=== PATIENT | male | born 1965 | race Caucasian/White ===

== ENCOUNTER 2017-09-27 21:58 | Emergency (ER) | payer MEDICARE, MEDICAID, SELFPAY ==
[2017-09-27] VITALS (9 sets, daily range): BP systolic 131–134; BP diastolic 45–57; PULSE 72–79; RESP 16; TEMP 37; O2SAT 95–98
--- NOTE | 2017-09-27 22:14 | DI.RPTCT_ITS ---
SYMPTOM/DIAGNOSIS: LOWER ABDOMINAL PAIN CT ABDOMEN AND PELVIS: Comparison is made with 14 Feb 2017. Images were performed from the lung bases through the ischial tuberosities without if or oral contrast. There are diverticula in the lower descending and sigmoid colon. There is inflammation in the surrounding fat as well as some wall thickening consistent with diverticulitis. There is no evidence of abscess, free fluid or free air. There is no bowel dilatation. The appendix appears normal. A diverticulum is noted at the descending duodenum. There is a nodule in the medial right lung base which has increased in size when compared with previous examinations, now measuring 11 x 15 mm compared to 8 mm in 2015. No effusions are seen. No additional pulmonary nodules are identified. The heart size appears normal. The liver shows fatty infiltration. The gallbladder, pancreas, spleen and adrenals are unremarkable. There are a few small renal cysts. No stones or hydronephrosis is present. The aorta shows mild calcification and is normal in diameter. The bladder and prostate are unremarkable. IMPRESSION: Uncomplicated sigmoid diverticulitis 2. Increase in size of spiculated appearing nodule in the medial right lung base. PET CT or biopsy is recommended for further evaluation.
--- NOTE | 2017-09-27 22:14 | ED.GENADUL ---
Disposition Clinical Impression: Lung nodule, Diverticulitis Disposition: HOME Condition: Stable Instructions: Pulmonary Nodules (ED), Diverticulitis (ED) Additional Instructions: Take 1000mg tylenol every 6 hours for pain as needed. If you need additional pain relief take 1 oxycodone. Do not drink alcohol or drive if you take this medicine If you have severe worsening of pain or persistent vomit return to the emergency department you should follow up with your primary care provider this week for the diverticulitis and also the lung nodule Prescriptions: Ciprofloxacin [Cipro] 500 mg PO BID #14 tab MetroNIDAZOLE [Flagyl] 500 mg PO BID #14 tab Medical Decision Making - Lab Data Results reviewed for labs ordered during visit: Yes - Radiology Data Radiology results: report reviewed, image reviewed - Medical Decision Making pt here with lower abdominal cramping since and pain is worse left greater than right. Will eval for pancreatitis and diverticulitis with lab work and imaging. Has no testicle pain or swelling so doubt testicular torsion labs show wbc over 11, otherwise unremarkable. CT shows uncomplicated diverticulitis. Will treat with abx. CT also showed enlarged lung nodule, I advised him of this and that he needs to f/u with his pcp within a week for this and diverticulitis - Differential Diagnosis diveticulitis, colitis, constipation History of Present Illness - General Chief complaint: Abd Prob Stated complaint: ABD PROBLEM Time Seen by Provider: 09/27/17 22:02 Source: patient Mode of arrival: ambulatory Limitations: no limitations - History of Present Illness Initial comments: 52 yo male comes in with lower abdominal cramping intermittently since and constipation. He denies fevers, vomit, upper abdominal pain or chest pain. Denies pain like this in the past and has never had abdominal surgeries per the pt. He has mild lower abdominal pain left greater than right on exam, denies any pain when not being palpated. MD Complaint: abdominal cramping Onset/Timin -: days(s) Location: abdomen Radiation: non-radiation Severity scale (1-10): 6 Quality: other (cramping) Consistency: intermittent Improves with: none Worsens with: none Associated Symptoms: other (constipation) - Related Data Albuterol Sulfate [Ventolin Hfa] 1 - 2 puff IH Q4H PRN #1 inhaler 12/24/15 PARoxetine [Paxil] 20 mg PO DAILY #90 tab-cap 08/11/16 Omeprazole 40 mg PO DAILY #90 cap 10/27/16 Atorvastatin Calcium 20 mg PO DAILY #30 tab-cap 12/29/16 Cholecalciferol (Vitamin D3) [Vitamin D3] 2,000 unit PO DAILY #90 tab-cap 02/17/17 Acetaminophen [Tylenol] 650 mg PO Q6H PRN tab 03/20/17 Amlodipine Besylate 2.5 mg PO DAILY tab-cap 03/24/17 Lisinopril 30 mg PO DAILY tab-cap 03/24/17 MetFORMIN CR [Glucophage Xr] 1,000 mg PO DAILY #180 tab-cap 04/02/17 Glipizide [Glipizide Xl] 2.5 mg PO DAILY #90 tab 04/16/17 Docusate Sodium [Colace] 100 mg PO DAILY #90 cap 07/01/17 Aspirin [Aspirin EC] 81 mg PO DAILY 90 Days #90 tabec 08/13/17 Bisacodyl [Dulcolax] 10 mg RC AC #4 supp.rect 09/23/17 Ciprofloxacin [Cipro] 500 mg PO BID #14 tab 09/27/17 MetroNIDAZOLE [Flagyl] 500 mg PO BID #14 tab 09/27/17 Allergies Allergy/AdvReac Type Severity Reaction Status Date / Time naproxen Allergy Intermediate Itchy Welts Unverified 09/23/17 10:16 prednisone AdvReac Upset Unverified 09/23/17 10:16 stomach, fatigue Review of Systems Constitutional: denies: chills, fever Respiratory: denies: shortness of breath Cardiovascular: denies: chest pain Gastrointestinal: abdominal pain, constipation. denies: nausea, vomiting Skin: denies: rash Neurological: denies: headache Comment: All other systems reviewed and negative Past Medical History - Past Medical History Medical history: CAD, diabetes, GERD, hypertension plantar fasciitis Surgical history: other (Cystoscopy) - Social History Alcohol use: none Drug use: none General Exam - General Limitations: no limitations General appearance: alert, in no apparent distress - Head Head exam: Present: atraumatic - Eye Eye exam: Present: normal apperance - ENT ENT exam: Present: mucous membranes moist - Neck Neck exam: Present: normal inspection - Respiratory Respiratory exam: Absent: respiratory distress - Cardiovascular Cardiovascular Exam: Present: regular rate - GI/Abdominal GI/Abdominal exam: Present: soft, tenderness. Absent: distended, guarding, rebound, rigid - Neurological Exam Neurological exam: Present: alert, oriented X3, normal gait - Psychiatric Psychiatric exam: Present: normal affect - Skin Skin exam: Present: warm
[2017-09-27 22:44] LABS: Abs Immature Grans 0.06 k/cumm (0.0-0.09); Absolute Basophil Count 0.07 k/cumm (0.0-0.2); Absolute Eosinophil Count 0.26 k/cumm (0.0-0.7); Absolute Lymphocyte Count 2.08 k/cumm (1.2-3.4); Absolute Monocyte Count 1.69 k/cumm (0.11-0.7); Absolute Neutrophil Count 6.87 k/cumm (1.2-6.7); Basophils % 0.6; Eosinophils % 2.4; HCT 41.9 % (40.0-50.0); HGB 14.5 g/dL (13.5-17.5); Immature Grans % 0.5; Lymphocytes % 18.9; Mean Corp. HGB Concentration 34.6 g/dL (32.0-36.0); Mean Corpuscular Hemoglobin 30.3 pg (27.0-33.0); Mean Corpuscular Volume 87.5 fL (80-95); Mean Platelet Volume 10.3 fL (8.0-11.0); Monocytes % 15.3; Neutrophils % 62.3; Platelet Count 223 x1000/uL (130-400); RBC 4.79 m/cumm (4.50-6.00); RBC Distribution Width 13.5 % (11.8-14.1); White Blood Cell Count 11.03 k/cumm (4.4-10.8)
[2017-09-27 22:57] LABS: ALT 24 U/L (12-78); AST 14 U/L (15-37); Albumin 3.6 g/dL (3.4-5.0); Alkaline Phosphatase 100 U/L (46-116); Anion Gap 8.6 mmol/L (3-11); BUN 15 mg/dL (7-18); Bilirubin, Total 0.3 mg/dL (0.2-1.0); CO2 25.4 mmol/L (21.0-32.0); CREATININE 1.47 mg/dL (0.70-1.30); Calcium 8.6 mg/dL (8.5-10.1); Chloride 104 mmol/L (98-107); Estimated GFR 49.92 (mL/min/1.73m2); Glucose 73 mg/dL (70-100); Lipase 161 U/L (73-393); Magnesium 2.1 mg/dL (1.8-2.4); Potassium 4.2 mmol/L (3.5-5.1); Sodium 138 mmol/L (136-145); Total Protein 7.4 g/dL (6.4-8.2)
[2017-09-27 23:06] LABS: Diff Comment Diff Reviewed
--- NOTE | 2017-09-27 23:22 | DI.VRAD_ITS ---
EXAM: CT Abdomen and Pelvis Without Intravenous Contrast CLINICAL HISTORY: 52 years old, male; Pain; Other: Lower abdominal pain. TECHNIQUE: Axial computed tomography images of the abdomen and pelvis without intravenous contrast. All CT scans at this facility use at least one of these dose optimization techniques: automated exposure control; mA and/or kV adjustment per patient size (includes targeted exams where dose is matched to clinical indication); or iterative reconstruction. Coronal and sagittal reformatted images were created and reviewed. COMPARISON: CT - ABD PELVIS WITH CONTRAST 01/25/2017 and 05/29/2014. FINDINGS: Lung bases: 15 mm right lower lobe pulmonary nodule was 8 mm in 2014. ABDOMEN: Liver: Unremarkable. Gallbladder and bile ducts: Unremarkable. No calcified stones. No ductal dilation. Pancreas: Unremarkable. No ductal dilation. Spleen: Unremarkable. No splenomegaly. Adrenals: Unremarkable. No mass. Kidneys and ureters: Unremarkable. No obstructing stones. No hydronephrosis. Stomach and bowel: Inflammatory changes around a sigmoid colon diverticulum. No obstruction. PELVIS: Appendix: No findings to suggest acute appendicitis. Bladder: Unremarkable. No stones. Reproductive: Unremarkable as visualized. ABDOMEN and PELVIS: Intraperitoneal space: Unremarkable. No free air. No significant fluid collection. Bones/joints: No acute fracture. No dislocation. Soft tissues: Unremarkable. Vasculature: Unremarkable. No abdominal aortic aneurysm. Lymph nodes: Unremarkable. No enlarged lymph nodes. IMPRESSION: 1. Uncomplicated sigmoid colon diverticulitis 2. 15 mm right lower lobe pulmonary nodule. It has increased in size. Tissue diagnosis is suggested. Dictated and Authenticated by: Reno Hernandez MD. Ordering:TATO DE SOUZA MD
[2017-09-27] MEDS: Ciprofloxacin 500 MG TAB PO (23:32)
[2017-09-27] MEDS: metroNIDAZOLE 500 MG TAB PO (23:32)
[2017-09-27] MEDS: oxyCODONE 5 MG TAB PO (23:41)
--- NOTE | 2017-09-28 08:50 | PDOC.ERCMPRO ---
Care Management Progress Note 09/28-Dr. Crawford requested assistance with a PCP f/u within one week for diverticuli and R Lower lobe nodule increased in size. Referral faxed to [facility] am. Dr. Marroquin PCP.
== END 2017-09-27 23:48 | disposition home or self-care (01) ==
PROVIDERS: Emergency Provider Emergency Medicine; PCP Family Medicine
DX: K57.32 Diverticulitis of large intestine without perforation or abscess without bleeding (principal); R91.1 Solitary pulmonary nodule; E11.9 Type 2 diabetes mellitus without complications; Z79.84 Long term (current) use of oral hypoglycemic drugs; I10 Essential (primary) hypertension
CPT/HCPCS: 74176; 99284 ×2; 36415; 80053; 83690; 83735; 85025

== ENCOUNTER 2017-11-06 00:18 | Outpatient (CLI) | payer MEDICARE, MEDICAID, SELFPAY ==
[2017-11-06 08:51] LABS: CREATININE 1.34 mg/dL (0.70-1.30); Estimated GFR 55.55 (mL/min/1.73m2)
[2017-11-06] MEDS: Omnipaque 350 MG/ML 100 ML BTL IV (09:11)
--- NOTE | 2017-11-06 09:20 | DI.CT_ITS ---
SYMPTOM/DIAGNOSIS: RT LOWER LOBE NODULE ON 09/27/17 CT, ? ADENOPATHY, R91.[address]: Comparison examinations dating back to 2014 were reviewed. The most recent CT scan of the abdomen and pelvis is 09/27/17. There is mild atherosclerosis of the thoracic aorta but no aneurysmal dilatation or dissection is present. Heart size is within normal limits. No pericardial effusion is seen. No significant thoracic adenopathy is appreciated. There are a few mediastinal lymph nodes present, the largest measures .8 cm. in maximum diameter. No pleural effusion or pneumothorax is identified. The visualized thyroid gland is unremarkable. There is mild patient motion artifact present. Mild paraseptal emphysematous changes are seen in the lungs. Linear infiltrates are seen in the right middle lobe and left lingula. These areas may represent scarring, atelectasis or pneumonia. There is an irregular nodular density in the medial aspect of the right lower lobe measuring 1.4 by 2 cm. This has shown interval increase in size dating back to 2014. The tracheobronchial tree is unremarkable. Degenerative changes are seen in the spine. The upper abdominal images show bilateral renal cysts and hepatic steatosis. Note is made also made of a small duodenal diverticulum arising from the second portion of the duodenum. IMPRESSION: Interval increase in size of soft tissue nodule in the right lung base now measuring 2 cm. in size. Further evaluation with biopsy or PET scan is recommended. Scarring, atelectasis or pneumonia involving the right middle and left lingular lobes. Hepatic steatosis.
== END 2017-11-06 00:38 ==
PROVIDERS: PCP Family Medicine; Visit Provider Student in an Organized Health Care Education/Training Program
DX: R91.1 Solitary pulmonary nodule (principal); J98.4 Other disorders of lung; K76.0 Fatty (change of) liver, not elsewhere classified; I70.0 Atherosclerosis of aorta; K57.10 Diverticulosis of small intestine without perforation or abscess without bleeding
CPT/HCPCS: 71260; 82565; J3490

== ENCOUNTER 2017-11-10 12:18 | Outpatient (CLI) | payer MEDICARE, MEDICAID, SELFPAY ==
--- NOTE | 2017-11-10 08:21 | DI.RAD_ITS ---
SYMPTOMS/DIAGNOSIS: LATERAL KNEE PAIN, PATELLOFEMORAL ARTHRALGIA OF LT KNEE LEFT KNEE: Three views. No priors. No bone or joint abnormality is identified. IMPRESSION: Negative examination.
== END 2017-11-10 12:38 ==
PROVIDERS: PCP Family Medicine; Visit Provider Family Medicine
DX: M25.562 Pain in left knee (principal); M22.2X2 Patellofemoral disorders, left knee
CPT/HCPCS: 73562

== ENCOUNTER → 2017-12-02 09:49 | Outpatient (BNVA) | payer MEDICARE, MEDICAID, SELFPAY | PROVIDERS: PCP Family Medicine; Referring Provider Family Medicine; Visit Provider Orthopaedic Surgery | DX: M25.562 Pain in left knee (principal); I10 Essential (primary) hypertension; E11.9 Type 2 diabetes mellitus without complications; Z79.84 Long term (current) use of oral hypoglycemic drugs | CPT/HCPCS: 20610; 99202; 99214; J1040 ==

== ENCOUNTER 2017-12-15 19:39 | Emergency (ER) | payer MEDICARE, MEDICAID, SELFPAY ==
[2017-12-15 19:42] VITALS: BP 127/52; PULSE 76; RESP 22; TEMP 37.2; O2SAT 98
[2017-12-15] MEDS: Normal Saline 1,000 ML 1000 ML IV (20:15)
[2017-12-15 20:17] LABS: Abs Immature Grans 0.14 k/cumm (0.0-0.09); Absolute Eosinophil Count 0.33 k/cumm (0.0-0.7); Absolute Lymphocyte Count 3.37 k/cumm (1.2-3.4); Absolute Monocyte Count 0.97 k/cumm (0.11-0.7); Absolute Neutrophil Count 5.72 k/cumm (1.2-6.7); Basophils % 0.9; Eosinophils % 3.1; HCT 42.9 % (40.0-50.0); HGB 14.8 g/dL (13.5-17.5); Immature Grans % 1.3; Lymphocytes % 31.7; Mean Corp. HGB Concentration 34.5 g/dL (32.0-36.0); Mean Corpuscular Hemoglobin 30.3 pg (27.0-33.0); Mean Corpuscular Volume 87.9 fL (80-95); Mean Platelet Volume 10.4 fL (8.0-11.0); Monocytes % 9.1; Neutrophils % 53.9; Platelet Count 239 x1000/uL (130-400); RBC 4.88 m/cumm (4.50-6.00); RBC Distribution Width 13.9 % (11.8-14.1); White Blood Cell Count 10.63 k/cumm (4.4-10.8)
--- NOTE | 2017-12-15 20:23 | W.ED.GENAD ---
Discharge Plan Disposition Patient Disposition: HOME Discharge Details Chief Complaint: Abd Prob Clinical Impression: Diverticulitis, Abdominal pain Primary Care Provider: Garth Marroquin ED Provider: Colton Farooq Home Meds and New Rx's Prescriptions: New metronidazole [Flagyl] 500 mg tablet 500 mg PO BID Qty: 19 RF: 0 levofloxacin [Levaquin] 750 mg tablet 750 mg PO DAILY Qty: 9 RF: 0 Continue acetaminophen [Tylenol Extra Strength] 500 mg tablet 500 mg PO Q4H PRNRF: 0 atorvastatin 20 mg tablet 20 mg PO DAILY RF: 0 nicotine [Nicotrol] 10 mg cartridge 1 inh IH Q1H PRNRF: 0 albuterol sulfate [Ventolin HFA] 8 GM HFA aerosol inhaler 1 - 2 puff Inhalation Q4H PRN Qty: 1 RF: 1 paroxetine HCl 20 MG tablet 20 mg PO DAILY Qty: 90 RF: 3 cholecalciferol (vitamin D3) [Vitamin D3] 2,000 UNIT tablet 2,000 unit PO DAILY Qty: 90 RF: 3 amlodipine 2.5 MG tablet 2.5 mg PO DAILY RF: 0 metformin 500 MG tablet extended release 24 hr 1,000 mg PO DAILY Qty: 180 RF: 3 glipizide 2.5 MG tablet extended release 24hr 2.5 mg PO DAILY Qty: 90 RF: 3 docusate sodium [Colace] 100 MG capsule 100 mg PO DAILY Qty: 90 RF: 3 aspirin 81 MG tablet,delayed release (DR/EC) 81 mg PO DAILY 90 Days Qty: 90 RF: 3 bisacodyl [Dulcolax (bisacodyl)] 10 MG suppository 10 mg RC AC Qty: 4 RF: 0 omeprazole 40 mg capsule,delayed release(DR/EC) 40 mg PO DAILY 90 Days Qty: 90 RF: 3 nicotine 21 mg/24 hr patch 24 hour 1 patch TD Q24H Qty: 28 RF: 0 No Action sennosides [Senokot] 8.6 mg tablet 17.2 mg PO DAILY PRN (Reason: constipation) Qty: 20 RF: 0 lisinopril 30 mg tablet 30 mg PO DAILY Qty: 90 RF: 3 Discharge Instructions Instructions: Abdominal Pain (ED) Additional Instructions: Please take antibiotic as prescribed. Please contact your primary care physician to arrange follow-up. Return to the ER for any worsening or new concerning symptoms. Referrals: Garth Marroquin DO [Primary Care Provider] - Discharge Data Discharge Date/Time-TO BE ENTERED AT DEPARTURE: 12/15/17 22:23 Medical Decision Making 52-year-old male with history of diverticulitis with multiple flares in the past, here with abdominal pain in his lower abdomen since this morning. Patient states that current symptoms are exactly the same as when he has had a flare of diverticulitis in the past. He is tender in his lower abdomen and without peritoneal findings. Afebrile and otherwise well-appearing. He is tolerating p.o. intake. I reviewed CT imaging from 09/27/2017: Uncomplicated sigmoid diverticulitis. Increase in size of spiculated appearing nodule in the medial right lung base. Of note, patient is scheduled for biopsy of this lung nodule later this week. I discussed potential treatment past with the patient including CT imaging to assess for acute surgical process including disease other than diverticulitis versus trialing p.o. antibiotics without imaging at this time. Patient would prefer to trial p.o. antibiotics. With this he understands the importance that should anything worsen or change he should return to the emergency department immediately. I also think he should have close follow-up with his primary care physician. I encouraged him to call his primary care physician tomorrow. Will start levaquin and metronidazole 10 day course and administer first dose tonight. Disposition decisions were made weighing risks and benefits of hospitalization versus outpatient treatment, the risk for further decompensation, and the patient's wishes. The patient was stable and requested discharge. Prior to discharge my usual and customary return precautions were reviewed with the patient and his . This included follow-up instructions and reason to return to the emergency department if condition worsens, does not improve as expected, or other new concerns arise. HPI General Mode of arrival: ambulatory. Date/Time Provider Initiated Documentation: 12/15/17 19:44. Limitations to Documentation: no limitations. Information obtained by: patient. HPI Narrative: 52-year-old male with history of hypertension, diabetes, chronic kidney disease, diverticulitis with multiple flares in the past, presents today with chief complaint of abdominal pain. Patient notes pain in his lower abdomen bilaterally. Pain feels exactly the same as when he has had flare of diverticulitis in the past. Most recent flare was in September of this year and treated with antibiotics. Pain is moderate. Pain feels sharp. No associated fever. He had mild nausea earlier with no vomiting. No associated diarrhea or bright red blood per rectum. Patient notes that he attempted to arrange an appointment primary care physician but they were unable to schedule him until late this week. Related Data Home Medications Medication Instructions Recorded Confirmed albuterol sulfate [Ventolin HFA] 1 - 2 puff INHALATION Q4H PRN #1 12/24/15 12/17/17 inhaler paroxetine HCl 20 mg PO DAILY #90 tab-cap 08/11/16 12/17/17 cholecalciferol (vitamin D3) 2,000 unit PO DAILY #90 tab-cap 02/17/17 12/17/17 [Vitamin D3] amlodipine 2.5 mg PO DAILY tab-cap 03/24/17 12/17/17 metformin 1,000 mg PO DAILY #180 tab-cap 04/02/17 12/17/17 glipizide 2.5 mg PO DAILY #90 tab 04/16/17 12/17/17 docusate sodium [Colace] 100 mg PO DAILY #90 cap 07/01/17 12/17/17 aspirin 81 mg PO DAILY 90 Days #90 tabec 08/13/17 12/17/17 bisacodyl [Dulcolax (bisacodyl)] 10 mg AC #4 supp.rect 09/23/17 12/17/17 omeprazole 40 mg capsule,delayed 40 mg PO DAILY 90 Days #90 cap 10/20/17 12/17/17 release acetaminophen 500 mg tablet 500 mg PO Q4H PRN 10/26/17 12/17/17 atorvastatin 20 mg tablet 20 mg PO DAILY 10/26/17 12/17/17 nicotine 10 mg inhalation cartridge 1 inh IH Q1H PRN each 11/02/17 12/17/17 nicotine 21 mg/24 hr daily 1 patch TD Q24H #28 each 11/23/17 12/17/17 transdermal patch levofloxacin [Levaquin] 750 mg PO DAILY #9 tab 12/15/17 12/17/17 metronidazole [Flagyl] 500 mg PO BID #19 tab 12/15/17 12/17/17 lisinopril 30 mg tablet 30 mg PO DAILY #90 tab-cap 11/01/18 11/01/18 sennosides 8.6 mg tablet 17.2 mg PO DAILY PRN #20 tab 12/17/17 12/17/17 Previous Rx's Medication Instructions Recorded cholecalciferol (vitamin D3) 2,000 unit PO DAILY #90 tab-cap 02/17/17 [Vitamin D3] metformin 1,000 mg PO DAILY #180 tab-cap 04/02/17 glipizide 2.5 mg PO DAILY #90 tab 04/16/17 docusate sodium [Colace] 100 mg PO DAILY #90 cap 07/01/17 aspirin 81 mg PO DAILY 90 Days #90 tabec 08/13/17 bisacodyl [Dulcolax (bisacodyl)] 10 mg RC AC #4 supp.rect 09/23/17 omeprazole 40 mg capsule,delayed 40 mg PO DAILY 90 Days #90 cap 10/20/17 release nicotine 21 mg/24 hr daily 1 patch TD Q24H #28 each 11/23/17 transdermal patch levofloxacin [Levaquin] 750 mg PO DAILY #9 tab 12/15/17 metronidazole [Flagyl] 500 mg PO BID #19 tab 12/15/17 lisinopril 30 mg tablet 30 mg PO DAILY #90 tab-cap 12/17/17 sennosides 8.6 mg tablet 17.2 mg PO DAILY PRN #20 tab 12/17/17 Allergies Allergy/AdvReac Type Severity Reaction Status Date / Time naproxen Allergy Intermediate Itchy Welts Verified 12/17/17 13:11 prednisone AdvReac Unknown Upset Verified 12/17/17 13:11 stomach, fatigue General Stated Complaint: Abd Prob JAMES: 3 Review of Systems Review of Systems All systems reviewed & are unremarkable except as noted in HPI and below Constitutional Denies fever(s) Gastrointestinal Reports as per HPI Exam Const General: cooperative and no acute distress [facility] Head: normocephalic Mouth: moist mucous membranes Eyes Conjunctivae: normal conjunctivae Sclera: normal sclerae EOM: EOM intact bilaterally Neck Neck: trachea midline and supple Resp Auscultation: clear to auscultation bilaterally, no rales, no rhonchi and no wheezes Cardio Jugular venous pressure: no JVD Rate: regular rate and not tachycardic Rhythm: regular rhythm GI Palpation: soft, not firm, no guarding, no masses, not rigid, tender in the RLQ and in the LUQ; with no rebound tenderness and No ascites Skin General skin exam: no rashes or lesions noted Neuro General: alert, awake, oriented x3 and tone normal Extrem General: no edema Psych Appearance: grossly normal Mental Status: mental status grossly normal Speech and Movement: speech and movement normal Course Vital Signs Temperature 37.2 C 12/15/17 19:42 Pulse 76 12/15/17 19:42 Respiratory Rate 22 12/15/17 19:42 Blood Pressure 127/52 L 12/15/17 19:42 Pulse Oximetry 98 12/15/17 19:42 Temperature 37.2 C 12/15/17 19:42 Temperature Source Skin 12/15/17 19:42 Pulse 76 12/15/17 19:42 Respiratory Rate 22 12/15/17 19:42 Respiratory Effort Non-Labored 12/15/17 19:44 Blood Pressure 127/52 L 12/15/17 19:42 Blood Pressure Position Sitting 12/15/17 19:42 Pulse Oximetry 98 12/15/17 19:42 Oxygen Delivery Method Room Air 12/15/17 19:42 Oxygen Flow Rate 0 12/15/17 19:42 Pain Level 6 12/15/17 19:42
[2017-12-15] MEDS: metroNIDAZOLE 500 MG TAB PO (20:27)
[2017-12-15] MEDS: LEVOFLOXACIN 500 MG, LEVOFLOXACIN 250 MG 750 MG PO (20:27)
--- NOTE | 2017-12-15 20:30 | ED.GENADUL_ITS ---
Discharge Plan Disposition Patient Disposition: HOME Discharge Details Chief Complaint: Abd Prob Clinical Impression: Diverticulitis, Abdominal pain Primary Care Provider: Garth Marroquin ED Provider: Colton Farooq Home Meds and New Rx's Prescriptions: New metronidazole [Flagyl] 500 mg tablet 500 mg PO BID Qty: 19 RF: 0 levofloxacin [Levaquin] 750 mg tablet 750 mg PO DAILY Qty: 9 RF: 0 Continue acetaminophen [Tylenol Extra Strength] 500 mg tablet 500 mg PO Q4H PRNRF: 0 atorvastatin 20 mg tablet 20 mg PO DAILY RF: 0 nicotine [Nicotrol] 10 mg cartridge 1 inh IH Q1H PRNRF: 0 albuterol sulfate [Ventolin HFA] 8 GM HFA aerosol inhaler 1 - 2 puff Inhalation Q4H PRN Qty: 1 RF: 1 paroxetine HCl 20 MG tablet 20 mg PO DAILY Qty: 90 RF: 3 cholecalciferol (vitamin D3) [Vitamin D3] 2,000 UNIT tablet 2,000 unit PO DAILY Qty: 90 RF: 3 amlodipine 2.5 MG tablet 2.5 mg PO DAILY RF: 0 metformin 500 MG tablet extended release 24 hr 1,000 mg PO DAILY Qty: 180 RF: 3 glipizide 2.5 MG tablet extended release 24hr 2.5 mg PO DAILY Qty: 90 RF: 3 docusate sodium [Colace] 100 MG capsule 100 mg PO DAILY Qty: 90 RF: 3 aspirin 81 MG tablet,delayed release (DR/EC) 81 mg PO DAILY 90 Days Qty: 90 RF: 3 bisacodyl [Dulcolax (bisacodyl)] 10 MG suppository 10 mg RC AC Qty: 4 RF: 0 omeprazole 40 mg capsule,delayed release(DR/EC) 40 mg PO DAILY 90 Days Qty: 90 RF: 3 nicotine 21 mg/24 hr patch 24 hour 1 patch TD Q24H Qty: 28 RF: 0 No Action sennosides [Senokot] 8.6 mg tablet 17.2 mg PO DAILY PRN (Reason: constipation) Qty: 20 RF: 0 lisinopril 30 mg tablet 30 mg PO DAILY Qty: 90 RF: 3 Discharge Instructions Instructions: Abdominal Pain (ED) Additional Instructions: Please take antibiotic as prescribed. Please contact your primary care physician to arrange follow-up. Return to the ER for any worsening or new concerning symptoms. Referrals: Garth Marroquin DO [Primary Care Provider] - Discharge Data Discharge Date/Time-TO BE ENTERED AT DEPARTURE: 12/15/17 22:23 Medical Decision Making 52-year-old male with history of diverticulitis with multiple flares in the past , here with abdominal pain in his lower abdomen since this morning. Patient states that current symptoms are exactly the same as when he has had a flare of diverticulitis in the past. He is tender in his lower abdomen and without peritoneal findings. Afebrile and otherwise well-appearing. He is tolerating p.o. intake. I reviewed CT imaging from 09/27/2017: Uncomplicated sigmoid diverticulitis. Increase in size of spiculated appearing nodule in the medial right lung base. Of note, patient is scheduled for biopsy of this lung nodule later this week. I discussed potential treatment past with the patient including CT imaging to assess for acute surgical process including disease other than diverticulitis versus trialing p.o. antibiotics without imaging at this time. Patient would prefer to trial p.o. antibiotics. With this he understands the importance that should anything worsen or change he should return to the emergency department immediately. I also think he should have close follow-up with his primary care physician. I encouraged him to call his primary care physician tomorrow. Will start levaquin and metronidazole 10 day course and administer first dose tonight. Disposition decisions were made weighing risks and benefits of hospitalization versus outpatient treatment, the risk for further decompensation, and the patient's wishes. The patient was stable and requested discharge. Prior to discharge my usual and customary return precautions were reviewed with the patient and his . This included follow-up instructions and reason to return to the emergency department if condition worsens, does not improve as expected, or other new concerns arise. HPI General Mode of arrival: ambulatory . Date/Time Provider Initiated Documentation: 12/15/17 19:44 . Limitations to Documentation: no limitations . Information obtained by: patient . HPI Narrative: 52-year-old male with history of hypertension, diabetes, chronic kidney disease, diverticulitis with multiple flares in the past, presents today with chief complaint of abdominal pain. Patient notes pain in his lower abdomen bilaterally. Pain feels exactly the same as when he has had flare of diverticulitis in the past. Most recent flare was in September of this year and treated with antibiotics. Pain is moderate. Pain feels sharp. No associated fever. He had mild nausea earlier with no vomiting. No associated diarrhea or bright red blood per rectum. Patient notes that he attempted to arrange an appointment primary care physician but they were unable to schedule him until late this week. Related Data Home Medications Medication Instructions Recorded Confirmed albuterol sulfate [Ventolin HFA] 1 - 2 puff INHALATION Q4H PRN #1 12/24/1512/17 inhaler paroxetine HCl 20 mg PO DAILY #90 tab-cap 08/11/16 12/17/17 cholecalciferol (vitamin D3) 2,000 unit PO DAILY #90 tab-cap 02/17/17 12/17/17 [Vitamin D3] amlodipine 2.5 mg PO DAILY tab-cap 03/24/17 12/17/17 metformin 1,000 mg PO DAILY #180 tab-cap 04/02/17 12/17/17 glipizide 2.5 mg PO DAILY #90 tab 04/16/17 12/17/17 docusate sodium [Colace] 100 mg PO DAILY #90 cap 07/01/17 12/17/17 aspirin 81 mg PO DAILY 90 Days #90 tabec 08/13/17 12/17/17 bisacodyl [Dulcolax (bisacodyl)] 10 mg AC #4 supp.rect 09/23/17 12/17/17 omeprazole 40 mg capsule,delayed 40 mg PO DAILY 90 Days #90 cap 10/20/17 release acetaminophen 500 mg tablet 500 mg PO Q4H PRN 10/26/17 12/17/17 atorvastatin 20 mg tablet 20 mg PO DAILY 10/26/17 12/17/17 nicotine 10 mg inhalation cartridge 1 inh IH Q1H PRN each 11/02/17 12/17/17 nicotine 21 mg/24 hr daily 1 patch TD Q24H #28 each 11/23/17 12/17/17 transdermal patch levofloxacin [Levaquin] 750 mg PO DAILY #9 tab 12/15/17 12/17/17 metronidazole [Flagyl] 500 mg PO BID #19 tab 12/15/17 12/17/17 lisinopril 30 mg tablet 30 mg PO DAILY #90 tab-cap 11/01/18 11/01/18 sennosides 8.6 mg tablet 17.2 mg PO DAILY PRN #20 tab 12/17/17 12/17/17 Previous Rx's Medication Instructions Recorded cholecalciferol (vitamin D3) 2,000 unit PO DAILY #90 tab-cap 02/17/17 [Vitamin D3] metformin 1,000 mg PO DAILY #180 tab-cap 04/02/17 glipizide 2.5 mg PO DAILY #90 tab 04/16/17 docusate sodium [Colace] 100 mg PO DAILY #90 cap 07/01/17 aspirin 81 mg PO DAILY 90 Days #90 tabec 08/13/17 bisacodyl [Dulcolax (bisacodyl)] 10 mg RC AC #4 supp.rect 09/23/17 omeprazole 40 mg capsule,delayed 40 mg PO DAILY 90 Days #90 cap 10/20/17 release nicotine 21 mg/24 hr daily 1 patch TD Q24H #28 each 11/23/17 transdermal patch levofloxacin [Levaquin] 750 mg PO DAILY #9 tab 12/15/17 metronidazole [Flagyl] 500 mg PO BID #19 tab 12/15/17 lisinopril 30 mg tablet 30 mg PO DAILY #90 tab-cap 12/17/17 sennosides 8.6 mg tablet 17.2 mg PO DAILY PRN #20 tab 12/17/17 Allergies Allergy/AdvReac Type Severity Reaction Status Date / Time naproxen Allergy Intermediate Itchy Welts Verified 12/17/17 13:11 prednisone AdvReac Unknown Upset Verified 12/17/17 13:11 stomach, fatigue General Stated Complaint: Abd Prob JAMES: 3 Review of Systems Review of Systems All systems reviewed & are unremarkable except as noted in HPI and below Constitutional Denies fever(s) Gastrointestinal Reports as per HPI Exam Const General: cooperative and no acute distress [facility] Head: normocephalic Mouth: moist mucous membranes Eyes Conjunctivae: normal conjunctivae Sclera: normal sclerae EOM: EOM intact bilaterally Neck Neck: trachea midline and supple Resp Auscultation: clear to auscultation bilaterally, no rales, no rhonchi and no wheezes Cardio Jugular venous pressure: no JVD Rate: regular rate and not tachycardic Rhythm: regular rhythm GI Palpation: soft, not firm, no guarding, no masses, not rigid, tender in the RLQ and in the LUQ; with no rebound tenderness and No ascites Skin General skin exam: no rashes or lesions noted Neuro General: alert, awake, oriented x3 and tone normal Extrem General: no edema Psych Appearance: grossly normal Mental Status: mental status grossly normal Speech and Movement: speech and movement normal Course Vital Signs Temperature 37.2 C 12/15/17 19:42 Pulse 76 12/15/17 19:42 Respiratory Rate 22 12/15/17 19:42 Blood Pressure 127/52 L 12/15/17 19:42 Pulse Oximetry 98 12/15/17 19:42 Temperature 37.2 C 12/15/17 19:42 Temperature Source Skin 12/15/17 19:42 Pulse 76 12/15/17 19:42 Respiratory Rate 22 12/15/17 19:42 Respiratory Effort Non-Labored 12/15/17 19:44 Blood Pressure 127/52 L 12/15/17 19:42 Blood Pressure Position Sitting 12/15/17 19:42 Pulse Oximetry 98 12/15/17 19:42 Oxygen Delivery Method Room Air 12/15/17 19:42 Oxygen Flow Rate 0 12/15/17 19:42 Pain Level 6 12/15/17 19:42
[2017-12-15 20:55] LABS: Albumin 3.6 g/dL (3.4-5.0); Alkaline Phosphatase 109 U/L (46-116); Bilirubin, Total 0.2 mg/dL (0.2-1.0); Lipase 301 U/L (73-393)
[2017-12-15 20:56] LABS: Albumin 3.6 g/dL (3.4-5.0); Alkaline Phosphatase 108 U/L (46-116); Anion Gap 11.1 mmol/L (3-11); BUN 21 mg/dL (7-18); Bilirubin, Total 0.2 mg/dL (0.2-1.0); CO2 23.9 mmol/L (21.0-32.0); CREATININE 1.34 mg/dL (0.70-1.30); Calcium 8.3 mg/dL (8.5-10.1); Chloride 101 mmol/L (98-107); Estimated GFR 55.55 (mL/min/1.73m2); Glucose 150 mg/dL (70-100); Potassium 3.9 mmol/L (3.5-5.1); Sodium 136 mmol/L (136-145); Total Protein 7.1 g/dL (6.4-8.2)
[2017-12-15 21:16] LABS: Bilirubin, Direct < 0.05 mg/dL (0.00-0.20)
[2017-12-15 21:55] LABS: ALT 35 U/L (12-78); AST 35 U/L (15-37)
[2017-12-15 22:18] VITALS: BP 108/51; PULSE 64; RESP 20; TEMP 36.7; O2SAT 98
== END 2017-12-15 22:23 | disposition home or self-care (01) ==
LOC: ER 20:34
PROVIDERS: Emergency Medicine; Emergency Provider Student in an Organized Health Care Education/Training Program; PCP Family Medicine
DX: K57.30 Diverticulosis of large intestine without perforation or abscess without bleeding (principal); R10.9 Unspecified abdominal pain
CPT/HCPCS: 80053; 80076; 83690; 96360; 99284; 85025

== ENCOUNTER 2017-12-16 01:19 | Emergency (ER) | payer MEDICARE, MEDICAID, SELFPAY ==
[2017-12-16 01:22] VITALS: BP 123/56; PULSE 62; RESP 26; TEMP 36.6; O2SAT 100
--- NOTE | 2017-12-16 01:36 | W.ED.GENAD ---
Discharge Plan Disposition Patient Disposition: HOME Discharge Details Chief Complaint: Abd Prob Clinical Impression: Enteritis, Diverticulosis Primary Care Provider: Garth Marroquin ED Provider: Colton Farooq Home Meds and New Rx's Prescriptions: Continue acetaminophen [Tylenol Extra Strength] 500 mg tablet 500 mg PO Q4H PRNRF: 0 atorvastatin 20 mg tablet 20 mg PO DAILY RF: 0 nicotine [Nicotrol] 10 mg cartridge 1 inh IH Q1H PRNRF: 0 albuterol sulfate [Ventolin HFA] 8 GM HFA aerosol inhaler 1 - 2 puff Inhalation Q4H PRN Qty: 1 RF: 1 paroxetine HCl 20 MG tablet 20 mg PO DAILY Qty: 90 RF: 3 cholecalciferol (vitamin D3) [Vitamin D3] 2,000 UNIT tablet 2,000 unit PO DAILY Qty: 90 RF: 3 amlodipine 2.5 MG tablet 2.5 mg PO DAILY RF: 0 metformin 500 MG tablet extended release 24 hr 1,000 mg PO DAILY Qty: 180 RF: 3 glipizide 2.5 MG tablet extended release 24hr 2.5 mg PO DAILY Qty: 90 RF: 3 docusate sodium [Colace] 100 MG capsule 100 mg PO DAILY Qty: 90 RF: 3 aspirin 81 MG tablet,delayed release (DR/EC) 81 mg PO DAILY 90 Days Qty: 90 RF: 3 bisacodyl [Dulcolax (bisacodyl)] 10 MG suppository 10 mg RC AC Qty: 4 RF: 0 omeprazole 40 mg capsule,delayed release(DR/EC) 40 mg PO DAILY 90 Days Qty: 90 RF: 3 nicotine 21 mg/24 hr patch 24 hour 1 patch TD Q24H Qty: 28 RF: 0 metronidazole [Flagyl] 500 mg tablet 500 mg PO BID Qty: 19 RF: 0 levofloxacin [Levaquin] 750 mg tablet 750 mg PO DAILY Qty: 9 RF: 0 No Action sennosides [Senokot] 8.6 mg tablet 17.2 mg PO DAILY PRN (Reason: constipation) Qty: 20 RF: 0 lisinopril 30 mg tablet 30 mg PO DAILY Qty: 90 RF: 3 Discharge Instructions Instructions: Diverticulosis (ED), Enteritis (ED) Additional Instructions: Maintain a clear liquid diet today. You can advance her diet to bland diet consisting of rice tonight. Advance diet slowly thereafter. Please contact your primary care physician to arrange follow-up. Return to the ER for any worsening or new concerning symptoms. Referrals: Garth Marroquin DO [Primary Care Provider] - Discharge Data Discharge Date/Time-TO BE ENTERED AT DEPARTURE: 12/16/17 04:22 Medical Decision Making 1:43 -- 52-year-old male with history of diverticulitis with multiple flares in the past, here with abdominal pain in his lower abdomen since yesterday morning. Was seen here earlier for same - diagnosed with likely acute diverticulitis and discharged on levaquin and flagyl. Returns with worsening symptoms. Plan to CT a/p to assess for acute surgical process. Will initiate IV, give IV fluids and IV analgesia. 4:00 --CT of the abdomen and pelvis interpreted by radiology: there are fluid-filled loops of small bowel with air-fluid levels. No significant bowel wall thickening or inflammatory changes. No evidence of obstruction. Considered early enteritis. Diverticulosis without definitive evidence of diverticulitis Patient reassessed and is remained stable. Pain significantly improved. Patient notes had normal BM yesterday and has been having normal flatus. He has had no vomiting. Given symptoms and history of similar with diverticulitis in past, plan to continue antibiotic coverage. Results of CT discussed with patient. Patient advised to follow-up with PCP. I encouraged him to maintain bowel rest. Patient understands to return immediately for any worsening or new concerning symptoms. HPI General Mode of arrival: ambulatory. Date/Time Provider Initiated Documentation: 12/16/17 01:35. Limitations to Documentation: no limitations. Information obtained by: patient. HPI Narrative: 52-year-old male with history of hypertension, diabetes, chronic kidney disease, diverticulitis with multiple flares in the past, returns today with chief complaint of abdominal pain. Patient was seen here in ED a few hours ago and discharged on oral antibiotics for presumed diverticulitis. Patient notes pain in his lower abdomen bilaterally. Pain feels exactly the same as when he has had flare of diverticulitis in the past. Most recent flare was in September of this year and treated with antibiotics. Pain is more severe then earlier. Pain feels sharp. No associated fever. He had mild nausea earlier with no vomiting. No associated diarrhea or bright red blood per rectum. Related Data Home Medications Medication Instructions Recorded Confirmed albuterol sulfate [Ventolin HFA] 1 - 2 puff INHALATION Q4H PRN #1 12/24/15 12/17/17 inhaler paroxetine HCl 20 mg PO DAILY #90 tab-cap 08/11/16 12/17/17 cholecalciferol (vitamin D3) 2,000 unit PO DAILY #90 tab-cap 02/17/17 12/17/17 [Vitamin D3] amlodipine 2.5 mg PO DAILY tab-cap 03/24/17 12/17/17 metformin 1,000 mg PO DAILY #180 tab-cap 04/02/17 12/17/17 glipizide 2.5 mg PO DAILY #90 tab 04/16/17 12/17/17 docusate sodium [Colace] 100 mg PO DAILY #90 cap 07/01/17 12/17/17 aspirin 81 mg PO DAILY 90 Days #90 tabec 08/13/17 12/17/17 bisacodyl [Dulcolax (bisacodyl)] 10 mg RC AC #4 supp.rect 09/23/17 12/17/17 omeprazole 40 mg capsule,delayed 40 mg PO DAILY 90 Days #90 cap 10/20/17 12/17/17 release acetaminophen 500 mg tablet 500 mg PO Q4H PRN 10/26/17 12/17/17 atorvastatin 20 mg tablet 20 mg PO DAILY 10/26/17 12/17/17 nicotine 10 mg inhalation cartridge 1 inh IH Q1H PRN each 11/02/17 12/17/17 nicotine 21 mg/24 hr daily 1 patch TD Q24H #28 each 11/23/17 12/17/17 transdermal patch levofloxacin [Levaquin] 750 mg PO DAILY #9 tab 12/15/17 12/17/17 metronidazole [Flagyl] 500 mg PO BID #19 tab 12/15/17 12/17/17 lisinopril 30 mg tablet 30 mg PO DAILY #90 tab-cap 12/17/17 12/17/17 sennosides 8.6 mg tablet 17.2 mg PO DAILY PRN #20 tab 12/17/17 12/17/17 Previous Rx's Medication Instructions Recorded cholecalciferol (vitamin D3) 2,000 unit PO DAILY #90 tab-cap 02/17/17 [Vitamin D3] metformin 1,000 mg PO DAILY #180 tab-cap 04/02/17 glipizide 2.5 mg PO DAILY #90 tab 04/16/17 docusate sodium [Colace] 100 mg PO DAILY #90 cap 07/01/17 aspirin 81 mg PO DAILY 90 Days #90 tabec 08/13/17 bisacodyl [Dulcolax (bisacodyl)] 10 mg RC AC #4 supp.rect 09/23/17 omeprazole 40 mg capsule,delayed 40 mg PO DAILY 90 Days #90 cap 10/20/17 release nicotine 21 mg/24 hr daily 1 patch TD Q24H #28 each 11/23/17 transdermal patch levofloxacin [Levaquin] 750 mg PO DAILY #9 tab 12/15/17 metronidazole [Flagyl] 500 mg PO BID #19 tab 12/15/17 lisinopril 30 mg tablet 30 mg PO DAILY #90 tab-cap 12/17/17 sennosides 8.6 mg tablet 17.2 mg PO DAILY PRN #20 tab 12/17/17 Allergies Allergy/AdvReac Type Severity Reaction Status Date / Time naproxen Allergy Intermediate Itchy Welts Verified 12/17/17 13:11 prednisone AdvReac Unknown Upset Verified 12/17/17 13:11 stomach, fatigue General Stated Complaint: Abd Prob JAMES: 3 Review of Systems Review of Systems All systems reviewed & are unremarkable except as noted in HPI and below Gastrointestinal Reports abdominal pain PFSH Family History Father Essential hypertension Neoplasm Mother Diabetes Essential hypertension Sister No problems noted. Sister No problems noted. Medical History Adult BMI > 30 Alcohol abuse GERD (gastroesophageal reflux disease) HLD (hyperlipidemia) HTN (hypertension) Microscopic hematuria ELIU (obstructive sleep apnea) Plantar fasciitis T2DM (type 2 diabetes mellitus) Tobacco use disorder Vitamin D deficiency Social History Smoking/Tobacco Use Status: Current every day tobacco type: cigarettes Surgical History Cardiac Cath (03/24/17) Colonoscopy - IV Sedation (09/26/14) Cystoscopy w/ joe retrograde pyelogram (03/01/15) Extraction of cataract (11/19/16) Extraction of cataract (12/17/16) Course Vital Signs Temperature 36.6 C 12/16/17 01:22 Pulse 62 12/16/17 01:22 Respiratory Rate 26 H 12/16/17 01:22 Blood Pressure 123/56 L 12/16/17 01:22 Pulse Oximetry 100 12/16/17 01:22 Temperature 36.6 C 12/16/17 01:22 Temperature Source Skin 12/16/17 01:22 Pulse 62 12/16/17 01:22 Respiratory Rate 26 H 12/16/17 01:22 Respiratory Effort 12/16/17 01:23 Blood Pressure 123/56 L 12/16/17 01:22 Blood Pressure Position Sitting 12/16/17 01:22 Pulse Oximetry 100 12/16/17 01:22 Oxygen Delivery Method Room Air 12/16/17 01:22 Oxygen Flow Rate 0 12/16/17 01:22 Pain Level 8 12/16/17 01:22
[2017-12-16] MEDS: Lactated Ringers 1,000 ML 150 ML IV (02:00)
[2017-12-16] MEDS: HYDROmorphone 2 MG/ML VIAL 1 MG IVP (02:08)
--- NOTE | 2017-12-16 03:05 | DI.CT_ITS ---
SYMPTOM/DIAGNOSIS: ABDOMEN AND PELVIC CT: Small regions of bibasilar atelectasis are demonstrated. No acute abnormality is seen. As visualized the cardiac structures are intact. Fatty infiltration of the liver is noted. There is no evidence of intra or extrahepatic ductal dilatation. The gallbladder is normal. No stones are seen. There is nothing to suggest pericholecystic fluid. The findings are negative for cholecystitis. The pancreas is normal. The spleen is normal. The adrenals are normal. Bilateral perinephric standing is noted. This could represent a mild inflammatory process or old inflammation or scarring. Bilateral renal cysts are identified, the largest measuring 18 mm. in the right kidney. There is an apparent 3 cm. duodenal diverticulum which contains ingested particulate matter. Moderate diverticulosis is present involving the sigmoid and descending colon. There is evidence of intestinal obstruction. Fluid filled loops of small bowel are noted with air fluid levels. The possibility of enteritis could not be excluded. The appendix is normal. The bladder is normal. The reproductive organs as visualized are unremarkable. There is no evidence of free fluid or free air in the intraperitoneal space. No acute bony abnormality is seen. The extra-abdominal soft tissues are unremarkable. The abdominal aorta and iliac vessels are tortuous and atherosclerotic changes are demonstrated. No aneurysm is seen. There are no enlarged lymph nodes. SUMMARY: Fluid filled loops of small bowel with air fluid levels are demonstrated. There is no significant bowel wall thickening or inflammatory change. There is no evidence of obstruction. The possibility of mild enteritis could not be excluded.
[2017-12-16] MEDS: Omnipaque 350 MG/ML 100 ML BTL IJ (03:19)
--- NOTE | 2017-12-16 03:53 | DI.VRAD_ITS ---
EXAM: CT Abdomen and Pelvis With Intravenous Contrast EXAM DATE/TIME: 12/16/2017 1:36 AM CLINICAL HISTORY: 52 years old, male; Pain; Abdominal pain; Localized; Left lower quadrant (llq); Patient HX: Rlq pain moving to llq. HX of diverticulitis TECHNIQUE: Axial computed tomography images of the abdomen and pelvis with intravenous contrast. All CT scans at this facility use at least one of these dose optimization techniques: automated exposure control; mA and/or kV adjustment per patient size (includes targeted exams where dose is matched to clinical indication); or iterative reconstruction. Coronal and sagittal reformatted images were created and reviewed. CONTRAST: 100 ml of Omnipaque 350 administered intravenously. COMPARISON: CT ABD PELVIS WO CONTRAST 09/27/2017 10:37 PM FINDINGS: Lower thorax: There is minimal bibasilar atelectasis. The lungs are normal. There is no evidence of pneumothorax. There are no pleural effusions present. The cardiac structures are normal. ABDOMEN: Liver: There is a diffuse decrease in hepatic parenchymal density, consistent with moderate fatty infiltration. Gallbladder and bile ducts: There is no evidence of intrahepatic or extrahepatic biliary ductal dilation. The gallbladder is normal. There is no cholelitiasis, wall thickening or pericholecystic fluid to suggest cholecystitis. Pancreas: Normal. No ductal dilation. Spleen: The spleen is normal. Adrenals: Normal. No mass. Kidneys and ureters: There is bilateral perinephric stranding. This may represent a mild inflammatory process or old inflammation and scarring. Bilateral renal cysts the largest measuring 18 mm in diameter. The kidneys are otherwise normal. Stomach and bowel: Probable 3 cm duodenal diverticulum tic containing ingested material. Moderate diverticulosis is present in the sigmoid and descending colon. There is no evidence of intestinal obstruction. There are fluid-filled loops of small bowel with air-fluid levels. No significant bowel wall thickening or inflammatory changes. No evidence of obstruction. Consider early enteritis. Appendix: A normal appendix is identified. There is no evidence of distention or periappendiceal inflammation to suggest appendicitis. PELVIS: Bladder: The bladder is normal. Reproductive: The prostate gland and seminal vesicles are normal. ABDOMEN and PELVIS: Intraperitoneal space: Normal. No free air. No significant fluid collection. Bones/joints: The skeletal structures and soft tissues show no evidence of fracture or other acute processes. Soft tissues: The extra-abdominal soft tissues are normal. Vasculature: The abdominal aorta and iliac arteries are tortuous which may represent long-standing hypertension.The aorta demonstrates mild atherosclerotic calcification. Lymph nodes: Normal. No enlarged lymph nodes. IMPRESSION: There are fluid-filled loops of small bowel with air-fluid levels. No significant bowel wall thickening or inflammatory changes. No evidence of obstruction. Consider early enteritis. Diverticulosis without definitive evidence of diverticulitis. Dictated and Authenticated by: Dirk Rivera MD. Ordering:HILARIA GALINDO MD
[2017-12-16] MEDS: Ondansetron O.D.T. 4 MG TABEF (04:15)
[2017-12-16 04:16] VITALS: BP 131/48; PULSE 60; RESP 20; TEMP 36.3; O2SAT 94
--- NOTE | 2017-12-16 07:21 | PDOC.ERCMPRO ---
Care Management Progress Note 12/16-Dr. Rita Farooq requested assistance with a PCP (Lopez) f/u in one week for Diverticulitis. Referral faxed to [facility] am.
== END 2017-12-16 04:22 | disposition home or self-care (01) ==
PROVIDERS: Emergency Provider Student in an Organized Health Care Education/Training Program; PCP Family Medicine
DX: K52.9 Noninfective gastroenteritis and colitis, unspecified (principal); K57.30 Diverticulosis of large intestine without perforation or abscess without bleeding
CPT/HCPCS: 36415; 96361; 96374; 99285; 74177; J3490

== ENCOUNTER 2017-12-26 17:01 | Emergency (ER) | payer MEDICARE, MEDICAID, SELFPAY ==
[2017-12-26 17:07] VITALS: BP 152/58; PULSE 99; RESP 20; TEMP 36.4; O2SAT 94
--- NOTE | 2017-12-26 17:14 | W.ED.GENAD ---
Discharge Plan Disposition Patient Disposition: HOME Condition: Good Discharge Details Chief Complaint: Nk/Back Pain Clinical Impression: Acute neck pain Primary Care Provider: Garth Marroquin ED Provider: Brendon Hutchins Home Meds and New Rx's Prescriptions: No Action acetaminophen [Tylenol Extra Strength] 500 mg tablet 500 mg PO Q4H PRNRF: 0 atorvastatin 20 mg tablet 20 mg PO DAILY RF: 0 nicotine [Nicotrol] 10 mg cartridge 1 inh IH Q1H PRNRF: 0 sennosides [Senokot] 8.6 mg tablet 17.2 mg PO DAILY PRN (Reason: constipation) Qty: 20 RF: 0 lisinopril 30 mg tablet 30 mg PO DAILY Qty: 90 RF: 3 albuterol sulfate [Ventolin HFA] 8 GM HFA aerosol inhaler 1 - 2 puff Inhalation Q4H PRN Qty: 1 RF: 1 paroxetine HCl 20 MG tablet 20 mg PO DAILY Qty: 90 RF: 3 cholecalciferol (vitamin D3) [Vitamin D3] 2,000 UNIT tablet 2,000 unit PO DAILY Qty: 90 RF: 3 amlodipine 2.5 MG tablet 2.5 mg PO DAILY RF: 0 metformin 500 MG tablet extended release 24 hr 1,000 mg PO DAILY Qty: 180 RF: 3 glipizide 2.5 MG tablet extended release 24hr 2.5 mg PO DAILY Qty: 90 RF: 3 docusate sodium [Colace] 100 MG capsule 100 mg PO DAILY Qty: 90 RF: 3 aspirin 81 MG tablet,delayed release (DR/EC) 81 mg PO DAILY 90 Days Qty: 90 RF: 3 bisacodyl [Dulcolax (bisacodyl)] 10 MG suppository 10 mg RC AC Qty: 4 RF: 0 omeprazole 40 mg capsule,delayed release(DR/EC) 40 mg PO DAILY 90 Days Qty: 90 RF: 3 nicotine 21 mg/24 hr patch 24 hour 1 patch TD Q24H Qty: 28 RF: 0 metronidazole [Flagyl] 500 mg tablet 500 mg PO BID Qty: 19 RF: 0 levofloxacin [Levaquin] 750 mg tablet 750 mg PO DAILY Qty: 9 RF: 0 Discharge Instructions Instructions: Neck Pain (ED) Additional Instructions: Please take your home Tylenol, and Motrin for any pain. Please use a heating pad to your neck for improvement of the muscle spasm. If you notice any worsening of your symptoms, or any new symptoms such as vomiting, diarrhea, fever, chills, pain tingling or numbness in your arms, shortness of breath, chest pain, numbness, weakness, or fainting , please return immediately to the emergency department for reevaluation. Please follow up with your primary care provider as soon as possible for reassessment and reevaluation. As always, it was a pleasure participating in your medical care today. Referrals: Garth Marroquin DO [Primary Care Provider] - Medical Decision Making This is a 52-year-old gentleman who presents with left-sided neck pain has been going on for the last day to day and a half. He does not recall any traumatic event that brought it on. He denies any systemic symptoms or red flags concerning for meningitis. He has no focal associated neurologic deficits or midline neck tenderness. Physical exam demonstrates signs and symptoms clinically indicative of a left sided neck musculature/paraspinal spasm. No evidence of mass or other abnormality. No evidence of trauma. A suboccipital block was performed, with 3 mL of 2% lidocaine with epinephrine being administered after cleaning the skin, and redrawing to check for any blood. After the lidocaine administration the patient had near complete resolution of his symptoms. We will give 1 dose of Tylenol here, discharged home with instructions for NSAID use, heating pads, and close follow-up. We discussed red flags for which to return the patient understands. I have extensively reviewed the treatment plan and discharge instructions with the patient. I have addressed all patient concerns at this time. The patient was made aware of what symptoms to monitor for that would warrant a return to the emergency department. Discussed the plan with the patient, they demonstrate verbal understanding and agreement with our assessment and plan at this time. HPI General Date/Time Provider Initiated Documentation: 12/26/17 17:13. HPI Narrative: This is a 52-year-old male with a past medical history of plantar fasciitis, GERD, diabetes and kidney disease, who presents today for left-sided paraspinal neck pain. He states that it started yesterday and was described as a mild ache and sharp in his left neck. It is worse with movement, improved by nothing. He has not taken any Tylenol or Motrin for the pain. He has no associated pain in his chest arms or head. He denies any headache, fever, or chills. He has no worsening of his pain with flexion of his neck. It is also worse with mild palpation. He denies any history of trauma. He has no other complaints at this time. Related Data Home Medications Medication Instructions Recorded Confirmed albuterol sulfate [Ventolin HFA] 1 - 2 puff INHALATION Q4H PRN #1 12/24/15 12/26/17 inhaler paroxetine HCl 20 mg PO DAILY #90 tab-cap 08/11/16 12/26/17 cholecalciferol (vitamin D3) 2,000 unit PO DAILY #90 tab-cap 02/17/17 12/26/17 [Vitamin D3] amlodipine 2.5 mg PO DAILY tab-cap 03/24/17 12/26/17 metformin 1,000 mg PO DAILY #180 tab-cap 04/02/17 12/26/17 glipizide 2.5 mg PO DAILY #90 tab 04/16/17 12/26/17 docusate sodium [Colace] 100 mg PO DAILY #90 cap 07/01/17 12/26/17 aspirin 81 mg PO DAILY 90 Days #90 tabec 08/13/17 12/26/17 bisacodyl [Dulcolax (bisacodyl)] 10 mg AC #4 supp.rect 09/23/17 12/26/17 omeprazole 40 mg capsule,delayed 40 mg PO DAILY 90 Days #90 cap 10/20/17 12/26/17 release acetaminophen 500 mg tablet 500 mg PO Q4H PRN 10/26/17 12/26/17 atorvastatin 20 mg tablet 20 mg PO DAILY 10/26/17 12/26/17 nicotine 10 mg inhalation cartridge 1 inh IH Q1H PRN each 11/02/17 12/26/17 nicotine 21 mg/24 hr daily 1 patch TD Q24H #28 each 11/23/17 12/26/17 transdermal patch levofloxacin [Levaquin] 750 mg PO DAILY #9 tab 12/15/17 12/17/17 metronidazole [Flagyl] 500 mg PO BID #19 tab 12/15/17 12/17/17 lisinopril 30 mg tablet 30 mg PO DAILY #90 tab-cap 12/17/17 12/26/17 sennosides 8.6 mg tablet 17.2 mg PO DAILY PRN #20 tab 12/17/17 12/26/17 Previous Rx's Medication Instructions Recorded cholecalciferol (vitamin D3) 2,000 unit PO DAILY #90 tab-cap 02/17/17 [Vitamin D3] metformin 1,000 mg PO DAILY #180 tab-cap 04/02/17 glipizide 2.5 mg PO DAILY #90 tab 04/16/17 docusate sodium [Colace] 100 mg PO DAILY #90 cap 07/01/17 aspirin 81 mg PO DAILY 90 Days #90 tabec 08/13/17 bisacodyl [Dulcolax (bisacodyl)] 10 mg RC AC #4 supp.rect 09/23/17 omeprazole 40 mg capsule,delayed 40 mg PO DAILY 90 Days #90 cap 10/20/17 release nicotine 21 mg/24 hr daily 1 patch TD Q24H #28 each 11/23/17 transdermal patch levofloxacin [Levaquin] 750 mg PO DAILY #9 tab 12/15/17 metronidazole [Flagyl] 500 mg PO BID #19 tab 12/15/17 lisinopril 30 mg tablet 30 mg PO DAILY #90 tab-cap 12/17/17 sennosides 8.6 mg tablet 17.2 mg PO DAILY PRN #20 tab 12/17/17 Allergies Allergy/AdvReac Type Severity Reaction Status Date / Time naproxen Allergy Intermediate Itchy Welts Verified 12/26/17 17:09 prednisone AdvReac Unknown Upset Verified 12/26/17 17:09 stomach, fatigue General Stated Complaint: Nk/Back Pain JAMES: 4 Review of Systems Review of Systems All systems reviewed & are unremarkable except as noted in HPI and below Exam Narrative Exam Narrative: 1.Const: Well-nourished, Well-developed, appearing stated age 2.Eyes: PERRL, no conjunctival injection, and symmetrical lids. 3.ENT: Atraumatic external nose and ears. Moist MM. Neck: Symmetric, trachea midline, No thyromegaly. No carotid bruits are noted. No vertebral artery bruits are noted. 4.CVS: +S1/S2, No murmurs or gallops. Peripheral pulses 2+ and equal in all extremities. Brisk capillary refill in all extremities. 5.RESP: Unlabored respiratory effort. Clear to auscultation bilaterally. No wheezes rales or rhonchi 6.GI: Soft, Nontender/Nondistended, No hepatosplenomegaly. No guarding or rebound. 7.MSK: Normocephalic/Atraumatic, Extremities w/o deformity or ttp No cyanosis or clubbing, Normal movement of all extremities. Patient demonstrates good movement of cervical neck. There is no nuchal rigidity, no nuchal tenderness. Patient is able to flex the neck without any difficulty or significant pain. Negative Kernig's and Brudzinski sign. No midline tenderness to palpation over the CTLS spine. Normal ROM in flexion, extension, side bend, and rotation. Patient has +5 out of 5 strength in the lower extremities in dorsiflexion and plantarflexion, knee flexion and extension, hip flexion and extension. There is +2 over 2 dorsalis pedis pulses bilaterally. There is normal sensation to the skin with light touch at the foot, knee, and hip. Normal saddle sensation. Good sensation over the deep sural nerve area bilaterally. Rectal exam deferred. Reflexes are +2 over 4 in the patellar reflex bilaterally. +5 out of 5 strength in the medial, ulnar, radial nerve distribution bilaterally in the hands as well as intact light touch sensation to these dermatomes on the hands. Patient demonstrates mild left-sided paraspinal tenderness with evidence of muscle spasm just below the left occiput. He is able to flex and extend his neck well without any difficulty. 8.Skin: Warm, Dry. No rashes or lesions. 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 Sensation grossly intact, no focal neurologic deficits. 10.Psych: (AAO) x3. Appropriate mood and affect Course Vital Signs Temperature 36.4 C L 12/26/17 17:07 Pulse 99 H 12/26/17 17:07 Respiratory Rate 20 12/26/17 17:07 Blood Pressure 152/58 H 12/26/17 17:07 Pulse Oximetry 94 L 12/26/17 17:07 Temperature 36.4 C L 12/26/17 17:07 Temperature Source Temporal Artery Scan 12/26/17 17:07 Pulse 99 H 12/26/17 17:07 Respiratory Rate 20 12/26/17 17:07 Respiratory Effort Non-Labored 12/26/17 17:08 Blood Pressure 152/58 H 12/26/17 17:07 Blood Pressure Position Sitting 11/10/18 17:07 Pulse Oximetry 94 L 12/26/17 17:07 Oxygen Delivery Method Room Air 12/26/17 17:07 Oxygen Flow Rate 0 12/26/17 17:07 Pain Level 7 12/26/17 17:11
[2017-12-26] MEDS: Acetaminophen 500 MG TAB 1000 MG PO (17:15)
== END 2017-12-26 17:28 | disposition home or self-care (01) ==
LOC: ER 17:29
PROVIDERS: Emergency Provider Student in an Organized Health Care Education/Training Program; PCP Family Medicine
DX: M54.2 Cervicalgia (principal)
CPT/HCPCS: 99282

== ENCOUNTER 2018-01-09 22:12 | Emergency (ER) | payer MEDICARE, MEDICAID, SELFPAY ==
[2018-01-09] VITALS (11 sets, daily range): BP systolic 109–131; BP diastolic 53–62; PULSE 69–86; RESP 18; TEMP 36.4; O2SAT 93–98
--- NOTE | 2018-01-09 22:22 | DI.CT_ITS ---
SYMPTOM/DIAGNOSIS: PAIN - RLQ CT ABDOMEN AND PELVIS: Comparison is made with 16 December 2017. The lung bases are clear. The liver again shows fatty infiltration. The spleen, gallbladder, pancreas and adrenals are unremarkable. There are small renal cysts. There is no evidence of stones or hydronephrosis. There is no bowel dilatation or inflammatory change. The appendix appears normal. Diverticulosis is again noted of the descending and sigmoid colon. There is no evidence of diverticulitis. The bladder and prostate are unremarkable. The aorta is normal in diameter. IMPRESSION: Fatty liver. Diverticulosis. No evidence of appendicitis or other acute abnormality.
--- NOTE | 2018-01-09 22:29 | W.ED.GENAD ---
Discharge Plan Disposition Patient Disposition: HOME Condition: Stable Discharge Details Chief Complaint: Abd Prob Clinical Impression: Abdominal pain Primary Care Provider: Garth Marroquin ED Provider: Diallo Priest Home Meds and New Rx's Prescriptions: New metronidazole [Flagyl] 500 mg tablet 500 mg PO TID 5 Days Qty: 15 RF: 0 ciprofloxacin HCl [Cipro] 500 mg tablet 500 mg PO Q12H 5 Days Qty: 10 RF: 0 Continue acetaminophen [Tylenol Extra Strength] 500 mg tablet 500 mg PO Q4H PRNRF: 0 atorvastatin 20 mg tablet 20 mg PO DAILY RF: 0 nicotine [Nicotrol] 10 mg cartridge 1 inh IH Q1H PRNRF: 0 lisinopril 30 mg tablet 30 mg PO DAILY Qty: 90 RF: 3 celecoxib 200 mg capsule 200 mg PO DAILY PRN (Reason: pain) Qty: 14 RF: 0 albuterol sulfate [Ventolin HFA] 8 GM HFA aerosol inhaler 1 - 2 puff Inhalation Q4H PRN Qty: 1 RF: 1 paroxetine HCl 20 MG tablet 20 mg PO DAILY Qty: 90 RF: 3 cholecalciferol (vitamin D3) [Vitamin D3] 2,000 UNIT tablet 2,000 unit PO DAILY Qty: 90 RF: 3 amlodipine 2.5 MG tablet 2.5 mg PO DAILY RF: 0 metformin 500 MG tablet extended release 24 hr 1,000 mg PO DAILY Qty: 180 RF: 3 glipizide 2.5 MG tablet extended release 24hr 2.5 mg PO DAILY Qty: 90 RF: 3 docusate sodium [Colace] 100 MG capsule 100 mg PO DAILY Qty: 90 RF: 3 aspirin 81 MG tablet,delayed release (DR/EC) 81 mg PO DAILY 90 Days Qty: 90 RF: 3 omeprazole 40 mg capsule,delayed release(DR/EC) 40 mg PO DAILY 90 Days Qty: 90 RF: 3 nicotine 21 mg/24 hr patch 24 hour 1 patch TD Q24H Qty: 28 RF: 0 sennosides [Senokot] 8.6 mg tablet 17.2 mg PO HS RF: 0 Discharge Instructions Instructions: Diverticulitis (ED), Diverticulitis Diet (ED), Abdominal Pain (ED) Additional Instructions: Take medication as prescribed and return to the emergency department immediately if not having any signs of improvement. Otherwise follow-up with your primary care provider for reassessment in the next week Referrals: Garth Marroquin DO [Primary Care Provider] - 1 week Discharge Data Discharge Date/Time-TO BE ENTERED AT DEPARTURE: 01/10/18 00:25 Medical Decision Making Patient presenting to the emergency department for chief complaint of abdominal pain. Patient states approximately an hour and a half ago he began having severe right lower quadrant pain. He states nausea and an episode of diarrhea along with the discomfort. Patient denies any fever chills, lack of appetite, chest pain or difficulty breathing. Plan to check labs and CT image for concern of diverticulitis versus appendicitis versus other intra-abdominal pathology. Pending results patient given IV NS, Zofran and morphine. Review of labs shows a significant leukocytosis of 14, decreased GFR which patient has a history of, and normal lipase and otherwise nondiagnostic labs. Review of CT scan shows normal appendix, no evidence of bowel obstruction, diverticular changes of sigmoid colon without evidence of acute diverticulitis and otherwise no acute findings noted. Patient reassessed and states improvement of nausea but still having some discomfort in the right lower quadrant that is reproducible. There is concern for possible early diverticulitis given patient's history, leukocytosis, and continued pain. Other possibility is patient's ongoing constipation that he states is been occurring for years which she is scheduled for a colonoscopy for further evaluation. Patient was encouraged to continue to take his [id number] laxatives to help with bowel movements and placed up on Cipro and Flagyl for possibility of early diverticulitis. Of notation was patient's previous history of alcohol abuse which he adamantly states that he has not had alcohol in years. He does state that he used to have a problem with it but has not had a drink in a while. Patient was informed that Flagyl may cause severe GI upset if he drinks while on it. Patient was well informed of side effects of medications. Patient encouraged to follow-up with primary care provider if not improving and I recommend an appointment within the next week. Patient states clear understanding to return for any new or significant worsening of symptoms. After discussion of diagnosis and plan of care patient has no further needs, questions, or concerns and states clear understanding to return to the emergency department for any worsening symptoms. HPI General Mode of arrival: ambulatory. Date/Time Provider Initiated Documentation: 01/09/18 22:13. Limitations to Documentation: no limitations. Information obtained by: patient, RN notes reviewed and old records reviewed. History of Present Illness 52 year old M presents to the emergency department with the chief complaint of abd pain, described as moderate, with intensity rated at 6. Quality is described as aching and sharp, and is localized to the abdomen (RLQ). Patient started experiencing this hour(s) (1.5) and it has been constant. No relieving factors improve symptom(s), No exacerbating factors reported . Patient did receive the following treatments prior to arrival, none Related Data Home Medications Medication Instructions Recorded Confirmed albuterol sulfate [Ventolin HFA] 1 - 2 puff INHALATION Q4H PRN #1 12/24/15 01/09/18 inhaler paroxetine HCl 20 mg PO DAILY #90 tab-cap 08/11/16 01/09/18 cholecalciferol (vitamin D3) 2,000 unit PO DAILY #90 tab-cap 02/17/17 01/09/18 [Vitamin D3] amlodipine 2.5 mg PO DAILY tab-cap 03/24/17 01/09/18 metformin 1,000 mg PO DAILY #180 tab-cap 04/02/17 01/09/18 glipizide 2.5 mg PO DAILY #90 tab 04/16/17 01/09/18 docusate sodium [Colace] 100 mg PO DAILY #90 cap 07/01/17 01/09/18 aspirin 81 mg PO DAILY 90 Days #90 tabec 08/13/17 01/09/18 omeprazole 40 mg capsule,delayed 40 mg PO DAILY 90 Days #90 cap 10/20/17 01/09/18 release acetaminophen 500 mg tablet 500 mg PO Q4H PRN 10/26/17 01/09/18 atorvastatin 20 mg tablet 20 mg PO DAILY 10/26/17 01/09/18 nicotine 10 mg inhalation cartridge 1 inh IH Q1H PRN each 11/02/17 01/09/18 nicotine 21 mg/24 hr daily 1 patch TD Q24H #28 each 11/23/17 01/09/18 transdermal patch lisinopril 30 mg tablet 30 mg PO DAILY #90 tab-cap 12/17/17 01/09/18 celecoxib 200 mg capsule 200 mg PO DAILY PRN #14 cap 12/29/17 01/09/18 sennosides [Senokot] 17.2 mg PO HS 01/09/18 01/09/18 ciprofloxacin HCl [Cipro] 500 mg PO Q12H 5 Days #10 tab 01/10/18 metronidazole [Flagyl] 500 mg PO TID 5 Days #15 tab 01/10/18 Previous Rx's Medication Instructions Recorded cholecalciferol (vitamin D3) 2,000 unit PO DAILY #90 tab-cap 02/17/17 [Vitamin D3] metformin 1,000 mg PO DAILY #180 tab-cap 04/02/17 glipizide 2.5 mg PO DAILY #90 tab 04/16/17 docusate sodium [Colace] 100 mg PO DAILY #90 cap 07/01/17 aspirin 81 mg PO DAILY 90 Days #90 tabec 08/13/17 omeprazole 40 mg capsule,delayed 40 mg PO DAILY 90 Days #90 cap 10/20/17 release nicotine 21 mg/24 hr daily 1 patch TD Q24H #28 each 11/23/17 transdermal patch lisinopril 30 mg tablet 30 mg PO DAILY #90 tab-cap 12/17/17 celecoxib 200 mg capsule 200 mg PO DAILY PRN #14 cap 12/29/17 ciprofloxacin HCl [Cipro] 500 mg PO Q12H 5 Days #10 tab 01/10/18 metronidazole [Flagyl] 500 mg PO TID 5 Days #15 tab 01/10/18 Allergies Allergy/AdvReac Type Severity Reaction Status Date / Time naproxen Allergy Intermediate Itchy Welts Verified 01/09/18 22:23 prednisone AdvReac Unknown Upset Verified 01/09/18 22:23 stomach, fatigue General Stated Complaint: Abd Prob JAMES: 3 Review of Systems Constitutional Denies chills, Denies fever(s) and Denies poor appetite Cardiovascular Denies chest pain and Denies dyspnea Respiratory Denies dyspnea Gastrointestinal Reports as per HPI, Reports abdominal pain, Denies melena, Denies change in bowel habits, Denies constipation, Denies diarrhea, Reports nausea and Denies vomiting Genitourinary Denies hematuria, Denies difficulty urinating, Denies flank pain and Denies testicular pain Integumentary/Breasts Denies rash PFSH Family History Father Essential hypertension Neoplasm Mother Diabetes Essential hypertension Sister No problems noted. Sister No problems noted. Medical History Adult BMI > 30 Alcohol abuse GERD (gastroesophageal reflux disease) HLD (hyperlipidemia) HTN (hypertension) Microscopic hematuria ELIU (obstructive sleep apnea) Plantar fasciitis T2DM (type 2 diabetes mellitus) Tobacco use disorder Vitamin D deficiency Social History Smoking/Tobacco Use Status: Current every day tobacco type: cigarettes Surgical History Cardiac Cath (03/24/17) Colonoscopy - IV Sedation (09/26/14) Cystoscopy w/ joe retrograde pyelogram (03/01/15) Extraction of cataract (11/19/16) Extraction of cataract (12/17/16) Exam Const General: cooperative Orientation: alert, awake and oriented x3 Resp Effort & Inspection: normal respiratory effort and able to speak in complete sentences Auscultation: clear to auscultation bilaterally Cardio Rate: regular rate Rhythm: regular rhythm Heart Sounds: S1 normal and S2 normal GI Inspection: distended and obesity Palpation: soft, no hepatosplenomegaly, not firm, guarding in the RLQ, no masses, no pulsatile masses, not rigid, no splenomegaly and tender in the RLQ and at McBurney's point; not periumbilically, not suprapubicly, Kline's sign negative and Rovsing's sign negative Auscultation: normal bowel sounds Back/Spine/Pelvis Back: no CVA tenderness Neuro General: alert, awake, oriented x3, gait normal and moves all extremities Course Vital Signs Temperature 36.4 C L 01/09/18 22:17 Pulse 86 01/09/18 22:17 Respiratory Rate 18 01/09/18 22:17 Blood Pressure 131/59 L 01/09/18 22:17 Pulse Oximetry 98 01/09/18 22:17 Temperature 36.4 C L 01/09/18 22:17 Temperature Source Skin 01/09/18 22:17 Pulse 86 01/09/18 22:17 Respiratory Rate 18 01/09/18 22:17 Blood Pressure 131/59 L 01/09/18 22:17 Blood Pressure Position Sitting 01/09/18 22:17 Pulse Oximetry 98 01/09/18 22:17 Oxygen Delivery Method Room Air 01/09/18 22:17 Oxygen Flow Rate 0 01/09/18 22:17 Pain Level 6 01/09/18 22:17
--- NOTE | 2018-01-09 22:33 | ED.GENADUL_ITS ---
Discharge Plan Disposition Patient Disposition: HOME Condition: Stable Discharge Details Chief Complaint: Abd Prob Clinical Impression: Abdominal pain Primary Care Provider: Garth Marroquin ED Provider: Diallo Priest Home Meds and New Rx's Prescriptions: New metronidazole [Flagyl] 500 mg tablet 500 mg PO TID 5 Days Qty: 15 RF: 0 ciprofloxacin HCl [Cipro] 500 mg tablet 500 mg PO Q12H 5 Days Qty: 10 RF: 0 Continue acetaminophen [Tylenol Extra Strength] 500 mg tablet 500 mg PO Q4H PRNRF: 0 atorvastatin 20 mg tablet 20 mg PO DAILY RF: 0 nicotine [Nicotrol] 10 mg cartridge 1 inh IH Q1H PRNRF: 0 lisinopril 30 mg tablet 30 mg PO DAILY Qty: 90 RF: 3 celecoxib 200 mg capsule 200 mg PO DAILY PRN (Reason: pain) Qty: 14 RF: 0 albuterol sulfate [Ventolin HFA] 8 GM HFA aerosol inhaler 1 - 2 puff Inhalation Q4H PRN Qty: 1 RF: 1 paroxetine HCl 20 MG tablet 20 mg PO DAILY Qty: 90 RF: 3 cholecalciferol (vitamin D3) [Vitamin D3] 2,000 UNIT tablet 2,000 unit PO DAILY Qty: 90 RF: 3 amlodipine 2.5 MG tablet 2.5 mg PO DAILY RF: 0 metformin 500 MG tablet extended release 24 hr 1,000 mg PO DAILY Qty: 180 RF: 3 glipizide 2.5 MG tablet extended release 24hr 2.5 mg PO DAILY Qty: 90 RF: 3 docusate sodium [Colace] 100 MG capsule 100 mg PO DAILY Qty: 90 RF: 3 aspirin 81 MG tablet,delayed release (DR/EC) 81 mg PO DAILY 90 Days Qty: 90 RF: 3 omeprazole 40 mg capsule,delayed release(DR/EC) 40 mg PO DAILY 90 Days Qty: 90 RF: 3 nicotine 21 mg/24 hr patch 24 hour 1 patch TD Q24H Qty: 28 RF: 0 sennosides [Senokot] 8.6 mg tablet 17.2 mg PO HS RF: 0 Discharge Instructions Instructions: Diverticulitis (ED), Diverticulitis Diet (ED), Abdominal Pain (ED ) Additional Instructions: Take medication as prescribed and return to the emergency department immediately if not having any signs of improvement. Otherwise follow-up with your primary care provider for reassessment in the next week Referrals: Garth Marroquin DO [Primary Care Provider] - 1 week Discharge Data Discharge Date/Time-TO BE ENTERED AT DEPARTURE: 01/10/18 00:25 Medical Decision Making Patient presenting to the emergency department for chief complaint of abdominal pain. Patient states approximately an hour and a half ago he began having severe right lower quadrant pain. He states nausea and an episode of diarrhea along with the discomfort. Patient denies any fever chills, lack of appetite, chest pain or difficulty breathing. Plan to check labs and CT image for concern of diverticulitis versus appendicitis versus other intra-abdominal pathology. Pending results patient given IV NS, Zofran and morphine. Review of labs shows a significant leukocytosis of 14, decreased GFR which patient has a history of, and normal lipase and otherwise nondiagnostic labs. Review of CT scan shows normal appendix, no evidence of bowel obstruction, diverticular changes of sigmoid colon without evidence of acute diverticulitis and otherwise no acute findings noted. Patient reassessed and states improvement of nausea but still having some discomfort in the right lower quadrant that is reproducible. There is concern for possible early diverticulitis given patient's history, leukocytosis, and continued pain. Other possibility is patient's ongoing constipation that he states is been occurring for years which she is scheduled for a colonoscopy for further evaluation. Patient was encouraged to continue to take his [id number] laxatives to help with bowel movements and placed up on Cipro and Flagyl for possibility of early diverticulitis. Of notation was patient's previous history of alcohol abuse which he adamantly states that he has not had alcohol in years. He does state that he used to have a problem with it but has not had a drink in a while. Patient was informed that Flagyl may cause severe GI upset if he drinks while on it. Patient was well informed of side effects of medications. Patient encouraged to follow-up with primary care provider if not improving and I recommend an appointment within the next week. Patient states clear understanding to return for any new or significant worsening of symptoms. After discussion of diagnosis and plan of care patient has no further needs, questions, or concerns and states clear understanding to return to the emergency department for any worsening symptoms. HPI General Mode of arrival: ambulatory . Date/Time Provider Initiated Documentation: 01/09/18 22:13 . Limitations to Documentation: no limitations . Information obtained by: patient, RN notes reviewed and old records reviewed . History of Present Illness 52 year old M presents to the emergency department with the chief complaint of abd pain, described as moderate, with intensity rated at 6. Quality is described as aching and sharp, and is localized to the abdomen (RLQ). Patient started experiencing this hour(s) (1.5) and it has been constant. No relieving factors improve symptom(s), No exacerbating factors reported . Patient did receive the following treatments prior to arrival, none Related Data Home Medications Medication Instructions Recorded Confirmed albuterol sulfate [Ventolin HFA] 1 - 2 puff INHALATION Q4H PRN #1 12/24/1501/09 inhaler paroxetine HCl 20 mg PO DAILY #90 tab-cap 08/11/16 01/09/18 cholecalciferol (vitamin D3) 2,000 unit PO DAILY #90 tab-cap 02/17/17 01/09/18 [Vitamin D3] amlodipine 2.5 mg PO DAILY tab-cap 03/24/17 01/09/18 metformin 1,000 mg PO DAILY #180 tab-cap 04/02/17 01/09/18 glipizide 2.5 mg PO DAILY #90 tab 04/16/17 01/09/18 docusate sodium [Colace] 100 mg PO DAILY #90 cap 07/01/17 01/09/18 aspirin 81 mg PO DAILY 90 Days #90 tabec 08/13/17 01/09/18 omeprazole 40 mg capsule,delayed 40 mg PO DAILY 90 Days #90 cap 10/20/17 release acetaminophen 500 mg tablet 500 mg PO Q4H PRN 10/26/17 01/09/18 atorvastatin 20 mg tablet 20 mg PO DAILY 10/26/17 01/09/18 nicotine 10 mg inhalation cartridge 1 inh IH Q1H PRN each 11/02/17 01/09/18 nicotine 21 mg/24 hr daily 1 patch TD Q24H #28 each 11/23/17 01/09/18 transdermal patch lisinopril 30 mg tablet 30 mg PO DAILY #90 tab-cap 12/17/17 01/09/18 celecoxib 200 mg capsule 200 mg PO DAILY PRN #14 cap 12/29/17 01/09/18 sennosides [Senokot] 17.2 mg PO HS 01/09/18 01/09/18 ciprofloxacin HCl [Cipro] 500 mg PO Q12H 5 Days #10 tab 01/10/18 metronidazole [Flagyl] 500 mg PO TID 5 Days #15 tab 01/10/18 Previous Rx's Medication Instructions Recorded cholecalciferol (vitamin D3) 2,000 unit PO DAILY #90 tab-cap 02/17/17 [Vitamin D3] metformin 1,000 mg PO DAILY #180 tab-cap 04/02/17 glipizide 2.5 mg PO DAILY #90 tab 04/16/17 docusate sodium [Colace] 100 mg PO DAILY #90 cap 07/01/17 aspirin 81 mg PO DAILY 90 Days #90 tabec 08/13/17 omeprazole 40 mg capsule,delayed 40 mg PO DAILY 90 Days #90 cap 10/20/17 release nicotine 21 mg/24 hr daily 1 patch TD Q24H #28 each 11/23/17 transdermal patch lisinopril 30 mg tablet 30 mg PO DAILY #90 tab-cap 12/17/17 celecoxib 200 mg capsule 200 mg PO DAILY PRN #14 cap 12/29/17 ciprofloxacin HCl [Cipro] 500 mg PO Q12H 5 Days #10 tab 01/10/18 metronidazole [Flagyl] 500 mg PO TID 5 Days #15 tab 01/10/18 Allergies Allergy/AdvReac Type Severity Reaction Status Date / Time naproxen Allergy Intermediate Itchy Welts Verified 01/09/18 22:23 prednisone AdvReac Unknown Upset Verified 01/09/18 22:23 stomach, fatigue General Stated Complaint: Abd Prob JAMES: 3 Review of Systems Constitutional Denies chills, Denies fever(s) and Denies poor appetite Cardiovascular Denies chest pain and Denies dyspnea Respiratory Denies dyspnea Gastrointestinal Reports as per HPI, Reports abdominal pain, Denies melena, Denies change in bowel habits, Denies constipation, Denies diarrhea, Reports nausea and Denies vomiting Genitourinary Denies hematuria, Denies difficulty urinating, Denies flank pain and Denies testicular pain Integumentary/Breasts Denies rash PFSH Family History Father Essential hypertension Neoplasm Mother Diabetes Essential hypertension Sister No problems noted. Sister No problems noted. Medical History Adult BMI > 30 Alcohol abuse GERD (gastroesophageal reflux disease) HLD (hyperlipidemia) HTN (hypertension) Microscopic hematuria ELIU (obstructive sleep apnea) Plantar fasciitis T2DM (type 2 diabetes mellitus) Tobacco use disorder Vitamin D deficiency Social History Smoking/Tobacco Use Status: Current every day tobacco type: cigarettes Surgical History Cardiac Cath (03/24/17) Colonoscopy - IV Sedation (09/26/14) Cystoscopy w/ joe retrograde pyelogram (03/01/15) Extraction of cataract (11/19/16) Extraction of cataract (12/17/16) Exam Const General: cooperative Orientation: alert, awake and oriented x3 Resp Effort & Inspection: normal respiratory effort and able to speak in complete sentences Auscultation: clear to auscultation bilaterally Cardio Rate: regular rate Rhythm: regular rhythm Heart Sounds: S1 normal and S2 normal GI Inspection: distended and obesity Palpation: soft, no hepatosplenomegaly, not firm, guarding in the RLQ, no masses , no pulsatile masses, not rigid, no splenomegaly and tender in the RLQ and at McBurney's point; not periumbilically, not suprapubicly, Kline's sign negative and Rovsing's sign negative Auscultation: normal bowel sounds Back/Spine/Pelvis Back: no CVA tenderness Neuro General: alert, awake, oriented x3, gait normal and moves all extremities Course Vital Signs Temperature 36.4 C L 01/09/18 22:17 Pulse 86 01/09/18 22:17 Respiratory Rate 18 01/09/18 22:17 Blood Pressure 131/59 L 01/09/18 22:17 Pulse Oximetry 98 01/09/18 22:17 Temperature 36.4 C L 01/09/18 22:17 Temperature Source Skin 01/09/18 22:17 Pulse 86 01/09/18 22:17 Respiratory Rate 18 01/09/18 22:17 Blood Pressure 131/59 L 01/09/18 22:17 Blood Pressure Position Sitting 01/09/18 22:17 Pulse Oximetry 98 01/09/18 22:17 Oxygen Delivery Method Room Air 01/09/18 22:17 Oxygen Flow Rate 0 01/09/18 22:17 Pain Level 6 01/09/18 22:17
[2018-01-09 22:39] LABS: Abs Immature Grans 0.14 k/cumm (0.0-0.09); Absolute Basophil Count 0.07 k/cumm (0.0-0.2); Absolute Monocyte Count 1.14 k/cumm (0.11-0.7); Basophils % 0.5; Eosinophils % 1.2; HCT 44.5 % (40.0-50.0); HGB 15.3 g/dL (13.5-17.5); Lymphocytes % 14.7; Mean Corp. HGB Concentration 34.4 g/dL (32.0-36.0); Mean Corpuscular Hemoglobin 30.4 pg (27.0-33.0); Mean Corpuscular Volume 88.3 fL (80-95); Mean Platelet Volume 10.8 fL (8.0-11.0); Monocytes % 7.8; Neutrophils % 74.8; Platelet Count 232 x1000/uL (130-400); RBC 5.04 m/cumm (4.50-6.00)
[2018-01-09] MEDS: Ondansetron O.D.T. 4 MG TABEF PO (22:40)
[2018-01-09] MEDS: MORPHine 10 MG/ML VIAL 4 MG IVP (22:40)
[2018-01-09 22:41] LABS: Absolute Eosinophil Count 0.18 k/cumm (0.0-0.7); Absolute Lymphocyte Count 2.15 k/cumm (1.2-3.4); Absolute Neutrophil Count 10.92 k/cumm (1.2-6.7)
[2018-01-09] MEDS: Normal Saline Flush 10 ML SYR IVP (22:41)
[2018-01-09 22:53] LABS: ALT 25 U/L (12-78); AST 16 U/L (15-37); Albumin 3.7 g/dL (3.4-5.0); Alkaline Phosphatase 107 U/L (46-116); Anion Gap 12.9 mmol/L (3-11); BUN 26 mg/dL (7-18); Bilirubin, Total 0.3 mg/dL (0.2-1.0); CO2 22.1 mmol/L (21.0-32.0); Calcium 8.6 mg/dL (8.5-10.1); Chloride 102 mmol/L (98-107); Estimated GFR 48.77 (mL/min/1.73m2); Glucose 199 mg/dL (70-100); Lipase 225 U/L (73-393); Potassium 3.9 mmol/L (3.5-5.1); Sodium 137 mmol/L (136-145); Total Protein 7.1 g/dL (6.4-8.2)
[2018-01-09] MEDS: Omnipaque 350 MG/ML 100 ML BTL IJ (22:53)
[2018-01-09] MEDS: Normal Saline 1,000 ML 1000 ML IV (23:00)
--- NOTE | 2018-01-09 23:26 | DI.VRAD_ITS ---
EXAM: CT Abdomen and Pelvis With Intravenous Contrast EXAM DATE/TIME: 01/09/2018 10:26 PM CLINICAL HISTORY: 52 years old, male; Signs and symptoms; Other: Rlq, pain TECHNIQUE: Axial computed tomography images of the abdomen and pelvis with intravenous contrast. All CT scans at this facility use at least one of these dose optimization techniques: automated exposure control; mA and/or kV adjustment per patient size (includes targeted exams where dose is matched to clinical indication); or iterative reconstruction. Coronal and sagittal reformatted images were created and reviewed. CONTRAST: 100 ml of Omnipaque 350 administered intravenously. COMPARISON: CT ABDOMEN PELVIS W 12/16/2017 2:53 AM FINDINGS: There is some atelectasis within the lung bases. Again noted is an ill-defined nodular opacity involving the right lung base which appears unchanged. There degenerative changes of the spine. There is fatty infiltration of the liver. There is no liver mass. There is no intrahepatic biliary dilatation. No gallstones are seen within the gallbladder. The pancreas is unremarkable. There is a small duodenal diverticulum near the pancreatic head. The spleen is unremarkable. There is no adrenal mass. Bilateral renal cysts are present. No calculi or hydronephrosis is seen. There is symmetric bilateral perinephric stranding similar to the old exam. The ureters are normal in caliber. No calculi are seen along the course of the ureters. The aorta is normal in caliber. The IVC is normal in caliber. Stable small retroperitoneal lymph nodes are present. There is no mesenteric adenopathy. Stomach is filled with food. There is no gastric wall thickening. The small bowel loops in the upper abdomen are nondistended with no bowel wall thickening. Feces is seen throughout the colon. There is no thickening of the wall of the ascending, transverse or descending colons. Within the pelvis: A normal appendix is seen within the right lower quadrant. The bladder is unremarkable. The prostate gland and seminal vesicles are normal. There is no free fluid within the pelvis. There is no inguinal adenopathy. There is no pelvic adenopathy. Sigmoid diverticuli are present. There is some mild colonic wall thickening likely representing sequela from prior diverticulitis. No pericolonic fat stranding is seen to suggest acute diverticulitis. IMPRESSION: 1. Normal appendix. 2. No evidence for bowel obstruction or bowel wall thickening. 3. No hydronephrosis. 4. Fatty infiltration of the liver. 5. Diverticular changes of the sigmoid colon. No evidence for acute diverticulitis. 6. Stable ill-defined nodular opacity in the right lung base. Dictated and Authenticated by: Rogerio Alonso MD. Ordering:ALFREDO LOPEZ MD
[2018-01-10] VITALS: O2SAT 95
[2018-01-10 00:01] VITALS: BP 122/53; PULSE 76; O2SAT 95
[2018-01-10 00:10] VITALS: O2SAT 95
[2018-01-10] MEDS: Acetaminophen 500 MG TAB 1000 MG PO (00:22)
[2018-01-10] MEDS: metroNIDAZOLE 500 MG TAB PO (00:22)
[2018-01-10] MEDS: Ciprofloxacin 500 MG TAB PO (00:22)
[2018-01-10 00:24] VITALS: TEMP 37.1
== END 2018-01-10 00:25 | disposition home or self-care (01) ==
PROVIDERS: Emergency Provider Nurse Practitioner Family; PCP Family Medicine
DX: R10.31 Right lower quadrant pain (principal); R11.0 Nausea; R19.7 Diarrhea, unspecified
CPT/HCPCS: 36415; 80053; 83690; 96361; 96374; 99285; 74177; 85025; 99284; J2270; J3490

== ENCOUNTER 2018-01-14 11:27 | Outpatient (CLI) | payer MEDICARE, MEDICAID, SELFPAY ==
--- NOTE | 2018-01-14 10:49 | DI.RAD_ITS ---
SYMPTOM/DIAGNOSIS: NEW ONSET NECK PAIN, STIFFNESS M54.2, CERVICALGIA CERVICAL SPINE: 01/14 Seven views were obtained. The intervertebral disc spaces appear fairly well maintained. Minimal hypertrophic spurring of the vertebral end plates and facet joints noted throughout the cervical region. Oblique views show unremarkable appearance of the neural foramina. CONCLUSION: Minimal DJD cervical spine.
--- NOTE | 2018-01-14 10:50 | DI.RAD_ITS ---
SYMPTOM/DIAGNOSIS: NEW ONSET DYSPNEA ON EXERTION R06.09 PA AND LATERAL CHEST: 01/14 The heart is normal in size. The lungs are clear. The mediastinal structures and pleura appear intact. CONCLUSION: Normal chest.
[2018-01-14 12:51] LABS: NT-proBNP 7 pg/mL
== END 2018-01-14 11:47 ==
PROVIDERS: PCP Family Medicine; Visit Provider Family Medicine
DX: R06.09 Other forms of dyspnea (principal); M54.2 Cervicalgia; M47.812 Spondylosis without myelopathy or radiculopathy, cervical region
CPT/HCPCS: 36415; 71046; 72050; 83880

== ENCOUNTER 2018-01-16 22:39 | Emergency (ER) | payer MEDICARE, MEDICAID, SELFPAY ==
[2018-01-16 22:45] VITALS: BP 128/65; PULSE 80; RESP 20; TEMP 36.4; O2SAT 96
--- NOTE | 2018-01-16 23:05 | W.ED.GENAD ---
Discharge Plan Disposition Patient Disposition: HOME Condition: Good Discharge Details Chief Complaint: Allergic Clinical Impression: Allergic urticaria Reason For Visit: hive Primary Care Provider: Garth Marroquin ED Provider: Gregor Solorzano [place] Meds and New Rx's Prescriptions: New prednisone 20 mg tablet 40 mg PO DAILY Qty: 6 RF: 0 famotidine [Pepcid] 20 mg tablet 20 mg PO BID Qty: 10 RF: 0 diphenhydramine HCl [Benadryl] 25 mg capsule 50 mg PO Q6H Qty: 30 RF: 0 ondansetron 4 mg tablet,disintegrating 4 mg PO QID PRN (Reason: nausea and vomiting) Qty: 10 RF: 0 Continue acetaminophen [Tylenol Extra Strength] 500 mg tablet 500 mg PO Q4H PRNRF: 0 atorvastatin 20 mg tablet 20 mg PO DAILY RF: 0 nicotine [Nicotrol] 10 mg cartridge 1 inh IH Q1H PRNRF: 0 lisinopril 30 mg tablet 30 mg PO DAILY Qty: 90 RF: 3 albuterol sulfate [Ventolin HFA] 8 GM HFA aerosol inhaler 1 - 2 puff Inhalation Q4H PRN Qty: 1 RF: 1 paroxetine HCl 20 MG tablet 20 mg PO DAILY Qty: 90 RF: 3 cholecalciferol (vitamin D3) [Vitamin D3] 2,000 UNIT tablet 2,000 unit PO DAILY Qty: 90 RF: 3 amlodipine 2.5 MG tablet 2.5 mg PO DAILY RF: 0 metformin 500 MG tablet extended release 24 hr 1,000 mg PO DAILY Qty: 180 RF: 3 glipizide 2.5 MG tablet extended release 24hr 2.5 mg PO DAILY Qty: 90 RF: 3 docusate sodium [Colace] 100 MG capsule 100 mg PO DAILY Qty: 90 RF: 3 aspirin 81 MG tablet,delayed release (DR/EC) 81 mg PO DAILY 90 Days Qty: 90 RF: 3 omeprazole 40 mg capsule,delayed release(DR/EC) 40 mg PO DAILY 90 Days Qty: 90 RF: 3 nicotine 21 mg/24 hr patch 24 hour 1 patch TD Q24H Qty: 28 RF: 0 sennosides [Senokot] 8.6 mg tablet 17.2 mg PO HS RF: 0 Discontinued celecoxib 200 mg capsule 200 mg PO DAILY PRN (Reason: pain) Qty: 30 RF: 0 Discharge Instructions Instructions: Urticaria (ED) Additional Instructions: Use the ondansetron to prevent nausea and vomiting. Take Benadryl, Pepcid, prednisone for the hives. Stop the medication for your neck. Follow-up with primary care next week. Return to ED for increasing difficulty breathing, sore throat swelling, GI symptoms, other concerns. Referrals: Garth Marroquin DO [Primary Care Provider] - Medical Decision Making Patient with diffuse hives and pruritus. Given his history of similar reaction to naproxen despite being on celecoxib in the past without reaction, I suspect this may be the culprit. He is not having anaphylactic type reaction. Vital signs are normal, no difficulty breathing, no GI symptoms, no throat swelling. He has very slight wheeze and rhonchi but has history of tobacco abuse and does have inhalers. Will treat with Benadryl, Pepcid, prednisone. In the past prednisone has caused GI upset so we will pretreat with Zofran. Will discontinue the celecoxib. We will have him follow-up with primary care next week. Return to ED if any tongue or throat swelling, difficulty breathing, GI symptoms, other concerns. Medical Records Medical records reviewed: Yes I reviewed the patient's medical records. HPI General Mode of arrival: ambulatory. Date/Time Provider Initiated Documentation: 01/16/18 22:44. Limitations to Documentation: no limitations. Information obtained by: patient and old records reviewed. HPI Narrative: Patient presents to ED with itchy raised welts all over his body. Symptoms started this evening. He has taken Benadryl around 5 PM. Itching is getting worse and seems to be spreading. He denies having any throat swelling or symptoms. He denies any difficulty breathing. He denies any nausea, vomiting, diarrhea or cramping. He finished antibiotics for diverticulitis just a little while ago. He was recently restarted on celecoxib for neck pain within the last day or 2. He had been on that previously without reaction but does have reaction to naproxen which causes raised itchy welts like he has now. Related Data Home Medications Medication Instructions Recorded Confirmed albuterol sulfate [Ventolin HFA] 1 - 2 puff INHALATION Q4H PRN #1 12/24/15 01/16/18 inhaler paroxetine HCl 20 mg PO DAILY #90 tab-cap 08/11/16 01/16/18 cholecalciferol (vitamin D3) 2,000 unit PO DAILY #90 tab-cap 02/17/17 01/14/18 [Vitamin D3] amlodipine 2.5 mg PO DAILY tab-cap 03/24/17 01/16/18 metformin 1,000 mg PO DAILY #180 tab-cap 04/02/17 01/16/18 glipizide 2.5 mg PO DAILY #90 tab 04/16/17 01/16/18 docusate sodium [Colace] 100 mg PO DAILY #90 cap 07/01/17 01/16/18 aspirin 81 mg PO DAILY 90 Days #90 tabec 08/13/17 01/16/18 omeprazole 40 mg capsule,delayed 40 mg PO DAILY 90 Days #90 cap 10/20/17 01/16/18 release acetaminophen 500 mg tablet 500 mg PO Q4H PRN 10/26/17 01/16/18 atorvastatin 20 mg tablet 20 mg PO DAILY 10/26/17 01/16/18 nicotine 10 mg inhalation cartridge 1 inh IH Q1H PRN each 11/02/17 01/14/18 nicotine 21 mg/24 hr daily 1 patch TD Q24H #28 each 11/23/17 01/16/18 transdermal patch lisinopril 30 mg tablet 30 mg PO DAILY #90 tab-cap 12/17/17 01/16/18 sennosides [Senokot] 17.2 mg PO HS 01/09/18 01/16/18 diphenhydramine HCl [Benadryl] 50 mg PO Q6H #30 cap 01/16/18 famotidine [Pepcid] 20 mg PO BID #10 tab 01/16/18 ondansetron 4 mg PO QID PRN #10 tab 01/16/18 prednisone 40 mg PO DAILY #6 tab 01/16/18 Previous Rx's Medication Instructions Recorded cholecalciferol (vitamin D3) 2,000 unit PO DAILY #90 tab-cap 02/17/17 [Vitamin D3] metformin 1,000 mg PO DAILY #180 tab-cap 04/02/17 glipizide 2.5 mg PO DAILY #90 tab 04/16/17 docusate sodium [Colace] 100 mg PO DAILY #90 cap 07/01/17 aspirin 81 mg PO DAILY 90 Days #90 tabec 08/13/17 omeprazole 40 mg capsule,delayed 40 mg PO DAILY 90 Days #90 cap 10/20/17 release nicotine 21 mg/24 hr daily 1 patch TD Q24H #28 each 11/23/17 transdermal patch lisinopril 30 mg tablet 30 mg PO DAILY #90 tab-cap 12/17/17 diphenhydramine HCl [Benadryl] 50 mg PO Q6H #30 cap 01/16/18 famotidine [Pepcid] 20 mg PO BID #10 tab 01/16/18 ondansetron 4 mg PO QID PRN #10 tab 01/16/18 prednisone 40 mg PO DAILY #6 tab 01/16/18 Allergies Allergy/AdvReac Type Severity Reaction Status Date / Time naproxen Allergy Intermediate Itchy Welts Verified 01/16/18 22:53 prednisone AdvReac Unknown Upset Verified 01/16/18 22:53 stomach, fatigue General Stated Complaint: Allergic JAMES: 2 Review of Systems Constitutional Denies chills, Denies fever(s), Denies headache(s) and Denies weakness Eyes Denies eye discharge and Denies itchy eyes ENT Denies headache(s), Denies lip swelling, Denies sore throat and Denies throat swelling Cardiovascular Denies chest pain, Denies lightheadedness and Denies dyspnea Respiratory Denies cough and Denies dyspnea Gastrointestinal Denies abdominal pain, Denies cramping, Denies diarrhea, Denies nausea and Denies vomiting Musculoskeletal Denies numbness Integumentary/Breasts Reports pruritus and Reports rash Neurologic Denies headache(s), Denies numbness and Denies weakness Allergic/Immunologic Denies itchy eyes, Denies lip swelling and Denies throat swelling PFSH Adult BMI > 30 Alcohol abuse GERD (gastroesophageal reflux disease) HLD (hyperlipidemia) HTN (hypertension) Microscopic hematuria ELIU (obstructive sleep apnea) Plantar fasciitis T2DM (type 2 diabetes mellitus) Tobacco use disorder Vitamin D deficiency Family History Father Essential hypertension Neoplasm Mother Diabetes Essential hypertension Sister No problems noted. Sister No problems noted. Cardiac Cath (03/24/17) Colonoscopy - IV Sedation (09/26/14) Cystoscopy w/ joe retrograde pyelogram (03/01/15) Extraction of cataract (11/19/16) Extraction of cataract (12/17/16) Social History housing: apartment lives independently: Yes number of children: 3 current occupational status: disabled Smoking/Tobacco Use Status: Current every day how long ago did patient quit smokin01/08/18 alcohol intake: never substance use type: does not use working smoke detector in home: No fire extinguisher in home: No carbon monox detector in home: No Exam Const General: cooperative, comfortable and no acute distress Orientation: alert and oriented x3 HENMT Head: normocephalic and atraumatic Mouth: lip normal, tongue normal and oropharynx normal Throat: posterior oropharynx normal, uvula midline and no uvular edema Eyes Conjunctivae: conjunctivae normal Resp Effort & Inspection: normal respiratory effort Auscultation: clear to auscultation bilaterally (slight occasional rhonchi/wheeze) Cardio Rate: regular rate Rhythm: regular rhythm Heart Sounds: S1 normal and S2 normal Skin Rashes: rashes noted (diffuse hives) Neuro General: alert, oriented x3, no focal motor deficits and CN's II-XI intact bilaterally Course Vital Signs Temperature 97.5 F L 01/16/18 22:45 Pulse 80 01/16/18 22:45 Respiratory Rate 20 01/16/18 22:45 Blood Pressure 128/65 01/16/18 22:45 Pulse Oximetry 96 01/16/18 22:45 Temperature 97.5 F L 01/16/18 22:45 Temperature Source Tympanic 01/16/18 22:45 Pulse 80 01/16/18 22:45 Respiratory Rate 20 01/16/18 22:45 Respiratory Effort 01/16/18 22:50 Blood Pressure 128/65 01/16/18 22:45 Pulse Oximetry 96 01/16/18 22:45 Oxygen Delivery Method Room Air 01/16/18 22:45 Oxygen Flow Rate 0 01/16/18 22:45
[2018-01-16] MEDS: Ondansetron O.D.T. 4 MG TABEF PO (23:10)
[2018-01-16] MEDS: diphenhydrAMINE 25 MG CAP 50 MG PO (23:31)
[2018-01-16] MEDS: Famotidine 20 MG TAB PO (23:32)
[2018-01-16 23:45] VITALS: BP 119/52; PULSE 78; RESP 16; O2SAT 94
[2018-01-16] MEDS: predniSONE 20 MG TAB 40 MG PO (23:45)
== END 2018-01-17 00:05 | disposition home or self-care (01) ==
LOC: ER 01-17 00:02
PROVIDERS: Emergency Provider Emergency Medicine; PCP Family Medicine
DX: L50.0 Allergic urticaria (principal); T39.395A Adverse effect of other nonsteroidal anti-inflammatory drugs [NSAID], initial encounter; E11.9 Type 2 diabetes mellitus without complications; Z79.84 Long term (current) use of oral hypoglycemic drugs; I10 Essential (primary) hypertension
CPT/HCPCS: 99283; J7512

== ENCOUNTER 2018-01-17 23:19 | Emergency (ER) | payer MEDICARE, MEDICAID, SELFPAY ==
[2018-01-17 23:23] VITALS: PULSE 93; RESP 20; TEMP 36.4; O2SAT 95
--- NOTE | 2018-01-17 23:28 | W.ED.GENAD ---
Discharge Plan Disposition Patient Disposition: HOME Condition: Stable Discharge Details Chief Complaint: Allergic Clinical Impression: Drug-induced pruritus Primary Care Provider: Garth Marroquin ED Provider: Brendon Hutchins Home Meds and New Rx's Prescriptions: New hydroxyzine HCl 50 mg tablet 50 mg PO QID PRN (Reason: itching) Qty: 14 RF: 0 No Action acetaminophen [Tylenol Extra Strength] 500 mg tablet 500 mg PO Q4H PRNRF: 0 atorvastatin 20 mg tablet 20 mg PO DAILY RF: 0 nicotine [Nicotrol] 10 mg cartridge 1 inh IH Q1H PRNRF: 0 lisinopril 30 mg tablet 30 mg PO DAILY Qty: 90 RF: 3 albuterol sulfate [Ventolin HFA] 8 GM HFA aerosol inhaler 1 - 2 puff Inhalation Q4H PRN Qty: 1 RF: 1 paroxetine HCl 20 MG tablet 20 mg PO DAILY Qty: 90 RF: 3 cholecalciferol (vitamin D3) [Vitamin D3] 2,000 UNIT tablet 2,000 unit PO DAILY Qty: 90 RF: 3 amlodipine 2.5 MG tablet 2.5 mg PO DAILY RF: 0 metformin 500 MG tablet extended release 24 hr 1,000 mg PO DAILY Qty: 180 RF: 3 glipizide 2.5 MG tablet extended release 24hr 2.5 mg PO DAILY Qty: 90 RF: 3 docusate sodium [Colace] 100 MG capsule 100 mg PO DAILY Qty: 90 RF: 3 aspirin 81 MG tablet,delayed release (DR/EC) 81 mg PO DAILY 90 Days Qty: 90 RF: 3 omeprazole 40 mg capsule,delayed release(DR/EC) 40 mg PO DAILY 90 Days Qty: 90 RF: 3 nicotine 21 mg/24 hr patch 24 hour 1 patch TD Q24H Qty: 28 RF: 0 sennosides [Senokot] 8.6 mg tablet 17.2 mg PO HS RF: 0 prednisone 20 mg tablet 40 mg PO DAILY Qty: 6 RF: 0 famotidine [Pepcid] 20 mg tablet 20 mg PO BID Qty: 10 RF: 0 diphenhydramine HCl [Benadryl] 25 mg capsule 50 mg PO Q6H Qty: 30 RF: 0 ondansetron 4 mg tablet,disintegrating 4 mg PO QID PRN (Reason: nausea and vomiting) Qty: 10 RF: 0 Discharge Instructions Instructions: Itchy Skin (ED) Additional Instructions: Please take the medication as directed. If you notice any worsening of your symptoms, or any new symptoms such as vomiting, diarrhea, fever, chills, shortness of breath, chest pain, numbness, weakness, or fainting , please return immediately to the emergency department for reevaluation. Please follow up with your primary care provider as soon as possible for reassessment and reevaluation. As always, it was a pleasure participating in your medical care today. Referrals: Garth Marroquin DO [Primary Care Provider] - Medical Decision Making This is a 52-year-old male who presents for evaluation of itchiness. Patient was seen and assessed last night, he is recently been started on celecoxib, and he is previously had a reaction similar to this when he was on naproxen. Celecoxib was stopped at that time, and the patient was started on steroids, and antihistamine treatment. He was discharged home. The patient's welts and hives have notably improved however his itchiness is still present and slightly worsened. He did take a hot shower which notably worsened his symptomatology. Physical exam aside for the welts on his right hand shows no significant abnormalities. No signs of airway compromise, systemic reaction, difficulty breathing or other abnormality. Vital signs are reassuring. We will give the patient Atarax, and an H2 ann. After treatment we will reassess. I feel that he can be safely discharged home if he has improvement of his itchiness. 12:08 AM Patient's pruritus has completely resolved with the Atarax. Patient will be discharged home with a prescription for Atarax. We discussed red flags which to return the patient understands. With the patient's lack of any signs or symptoms concerning for anaphylaxis, I feel that discharge is very reasonable. I have extensively reviewed the treatment plan and discharge instructions with the patient. I have addressed all patient concerns at this time. The patient was made aware of what symptoms to monitor for that would warrant a return to the emergency department. Discussed the plan with the patient, they demonstrate verbal understanding and agreement with our assessment and plan at this time. HPI General Date/Time Provider Initiated Documentation: 01/17/18 23:19. HPI Narrative: This is a pleasant 52-year-old male who presents today for evaluation of puritis. Patient was seen and assessed here last night for evaluation of pruritic welts. He had recently restarted celecoxib, which last night was thought to be the source of his symptomatology as he had had a similar reaction when he was on naproxen in the. At that time last night he had diffuse hives all over, but no signs of anaphylaxis, airway compromise or other abnormalities. Vital signs are stable, patient was treated with steroids, antihistamines, and eventually discharged. Patient states that he is doing well, however throughout the day he has continued to have notable itchiness. He states that his felix have notably improved and are now located on his right hand however he feels itchy all over. This is been present for the last few hours. It was worsened when he took a hot shower. He denies any relieving factors. He denies any other associated symptoms of difficulty swallowing, shortness of breath, difficulty breathing, numbness tingling or weakness. Patient has been taking his other home medications, and he recently took Benadryl roughly 6 hours ago. Patient has no additional complaints at this time. Patient denies any recent surgeries, IV or illicit drug use. Related Data Home Medications Medication Instructions Recorded Confirmed albuterol sulfate [Ventolin HFA] 1 - 2 puff INHALATION Q4H PRN #1 12/24/15 01/17/18 inhaler paroxetine HCl 20 mg PO DAILY #90 tab-cap 08/11/16 01/17/18 cholecalciferol (vitamin D3) 2,000 unit PO DAILY #90 tab-cap 02/17/17 01/17/18 [Vitamin D3] amlodipine 2.5 mg PO DAILY tab-cap 03/24/17 01/17/18 metformin 1,000 mg PO DAILY #180 tab-cap 04/02/17 01/17/18 glipizide 2.5 mg PO DAILY #90 tab 04/16/17 01/17/18 docusate sodium [Colace] 100 mg PO DAILY #90 cap 07/01/17 01/17/18 aspirin 81 mg PO DAILY 90 Days #90 tabec 08/13/17 01/17/18 omeprazole 40 mg capsule,delayed 40 mg PO DAILY 90 Days #90 cap 10/20/17 01/17/18 release acetaminophen 500 mg tablet 500 mg PO Q4H PRN 10/26/17 01/17/18 atorvastatin 20 mg tablet 20 mg PO DAILY 10/26/17 01/17/18 nicotine 10 mg inhalation cartridge 1 inh IH Q1H PRN each 11/02/17 01/17/18 nicotine 21 mg/24 hr daily 1 patch TD Q24H #28 each 11/23/17 01/17/18 transdermal patch lisinopril 30 mg tablet 30 mg PO DAILY #90 tab-cap 12/17/17 01/17/18 sennosides [Senokot] 17.2 mg PO HS 01/09/18 01/17/18 diphenhydramine HCl [Benadryl] 50 mg PO Q6H #30 cap 01/16/18 01/17/18 famotidine [Pepcid] 20 mg PO BID #10 tab 01/16/18 01/17/18 ondansetron 4 mg PO QID PRN #10 tab 01/16/18 01/17/18 prednisone 40 mg PO DAILY #6 tab 01/16/18 01/17/18 hydroxyzine HCl 50 mg PO QID PRN #14 tab 01/18/18 Previous Rx's Medication Instructions Recorded cholecalciferol (vitamin D3) 2,000 unit PO DAILY #90 tab-cap 02/17/17 [Vitamin D3] metformin 1,000 mg PO DAILY #180 tab-cap 04/02/17 glipizide 2.5 mg PO DAILY #90 tab 04/16/17 docusate sodium [Colace] 100 mg PO DAILY #90 cap 07/01/17 aspirin 81 mg PO DAILY 90 Days #90 tabec 08/13/17 omeprazole 40 mg capsule,delayed 40 mg PO DAILY 90 Days #90 cap 10/20/17 release nicotine 21 mg/24 hr daily 1 patch TD Q24H #28 each 11/23/17 transdermal patch lisinopril 30 mg tablet 30 mg PO DAILY #90 tab-cap 12/17/17 diphenhydramine HCl [Benadryl] 50 mg PO Q6H #30 cap 01/16/18 famotidine [Pepcid] 20 mg PO BID #10 tab 01/16/18 ondansetron 4 mg PO QID PRN #10 tab 01/16/18 prednisone 40 mg PO DAILY #6 tab 01/16/18 hydroxyzine HCl 50 mg PO QID PRN #14 tab 01/18/18 Allergies Allergy/AdvReac Type Severity Reaction Status Date / Time naproxen Allergy Intermediate Itchy Welts Verified 01/17/18 23:38 prednisone AdvReac Unknown Upset Verified 01/17/18 23:38 stomach, fatigue General JAMES: 2 Review of Systems Review of Systems All systems reviewed & are unremarkable except as noted in HPI and below PFSH Social History housing: apartment lives independently: Yes number of children: 3 current occupational status: disabled Smoking/Tobacco Use Status: Current every day how long ago did patient quit smokin01/08/18 alcohol intake: never substance use type: does not use working smoke detector in home: No fire extinguisher in home: No carbon monox detector in home: No Exam Narrative Exam Narrative: 1.Const: Well-nourished, Well-developed, appearing stated age 2.Eyes: PERRL, no conjunctival injection, and symmetrical lids. 3.ENT: Atraumatic external nose and ears. Moist MM. Neck: Symmetric, trachea midline, No thyromegaly. No evidence of airway compromise, no signs of swelling in the posterior oropharynx or angioedema. 4.CVS: +S1/S2, No murmurs or gallops. Peripheral pulses 2+ and equal in all extremities. Brisk capillary refill in all extremities. 5.RESP: Unlabored respiratory effort. Clear to auscultation bilaterally. No wheezes rales or rhonchi 6.GI: Soft, Nontender/Nondistended, No hepatosplenomegaly. No guarding or rebound. 7.MSK: Normocephalic/Atraumatic, Extremities w/o deformity or ttp No cyanosis or clubbing, Normal movement of all extremities 8.Skin: Skin demonstrates a small area of hives on the dorsal aspect of the right hand, these are blanching, no bleeding, negative Nikolsky sign. No evidence of any other skin abnormalities on the rest of the body or any other hives. Although the patient does have subjective pruritus throughout his body. No other cutaneous abnormalities. 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 Sensation grossly intact, no focal neurologic deficits. 10.Psych: (AAO) x3. Appropriate mood and affect
[2018-01-17] MEDS: hydrOXYzine HCL 50 MG TAB PO (23:37)
== END 2018-01-18 00:49 | disposition home or self-care (01) ==
PROVIDERS: Emergency Provider Student in an Organized Health Care Education/Training Program; PCP Family Medicine
DX: L29.9 Pruritus, unspecified (principal); L50.0 Allergic urticaria; T39.395A Adverse effect of other nonsteroidal anti-inflammatory drugs [NSAID], initial encounter; E11.9 Type 2 diabetes mellitus without complications; Z79.84 Long term (current) use of oral hypoglycemic drugs; I10 Essential (primary) hypertension
CPT/HCPCS: 99283; J3490

== ENCOUNTER 2018-02-25 15:31 | Emergency (ER) | payer MEDICARE, MEDICAID, SELFPAY ==
[2018-02-25 15:34] VITALS: BP 116/58; PULSE 96; RESP 18; TEMP 36.6; O2SAT 95
[2018-02-25] MEDS: Lidocaine 5% Patch 1 PATCH TP (15:51)
--- NOTE | 2018-02-25 16:11 | ED.GENADUL_ITS ---
Discharge Plan Disposition Patient Disposition: HOME Condition: Stable Discharge Details Chief Complaint: Nk/Back Pain Clinical Impression: Cervical paraspinal muscle spasm Primary Care Provider: Garth Marroquin ED Provider: Doris Sethi Home Meds and New Rx's Prescriptions: Continued cyclobenzaprine 10 mg tablet 10 mg PO TID PRN (Reason: muscle spasm) Qty: 21 RF: 0 acetaminophen [Tylenol Extra Strength] 500 mg tablet 500 mg PO Q4H PRNRF: 0 atorvastatin 20 mg tablet 20 mg PO DAILY RF: 0 Nicotrol 10 mg cartridge 1 inh IH Q1H PRNRF: 0 lisinopril 30 mg tablet 30 mg PO DAILY Qty: 90 RF: 3 Ventolin HFA 8 GM HFA aerosol inhaler 1 - 2 puff Inhalation Q4H PRN Qty: 1 RF: 1 paroxetine HCl 20 MG tablet 20 mg PO DAILY Qty: 90 RF: 3 cholecalciferol (vitamin D3) [Vitamin D3] 2,000 UNIT tablet 2,000 unit PO DAILY Qty: 90 RF: 3 amlodipine 2.5 MG tablet 2.5 mg PO DAILY RF: 0 metformin 500 MG tablet extended release 24 hr 1,000 mg PO DAILY Qty: 180 RF: 3 glipizide 2.5 MG tablet extended release 24hr 2.5 mg PO DAILY Qty: 90 RF: 3 docusate sodium [Colace] 100 MG capsule 100 mg PO DAILY Qty: 90 RF: 3 aspirin 81 MG tablet,delayed release (DR/EC) 81 mg PO DAILY 90 Days Qty: 90 RF: 3 omeprazole 40 mg capsule,delayed release(DR/EC) 40 mg PO DAILY 90 Days Qty: 90 RF: 3 nicotine 21 mg/24 hr patch 24 hour 1 patch TD Q24H Qty: 28 RF: 0 sennosides [Senokot] 8.6 mg tablet 17.2 mg PO HS RF: 0 famotidine [Pepcid] 20 mg tablet 20 mg PO BID Qty: 10 RF: 0 diphenhydramine HCl [Benadryl] 25 mg capsule 50 mg PO Q6H Qty: 30 RF: 0 ondansetron 4 mg tablet,disintegrating 4 mg PO QID PRN (Reason: nausea and vomiting) Qty: 10 RF: 0 hydroxyzine HCl 50 mg tablet 50 mg PO QID PRN (Reason: itching) Qty: 14 RF: 0 Discharge Instructions Instructions: Cervical Strain (ED), Muscle Spasm (ED) Additional Instructions: Alternate ice and heat to the affected area several times daily for 20 minutes at a time. Your Tylenol that you have at home as needed and directed for pain. Take Valium as needed and directed for pain not relieved with Tylenol. Do not take the Flexeril while you are taking Valium. You may also purchase [id number] Salonpas Lidoderm patches to use as directed for pain. Follow-up with your primary care doctor in 1 week for reevaluation. Return immediately to the emergency department any worsening or new concerning symptoms. Discharge Data Discharge Date/Time-TO BE ENTERED AT DEPARTURE: 02/25/18 16:23 Discharge Physician: Doris Sethi Medical Decision Making 52-year-old male who presents with left-sided neck pain since last night, worse with any movement of his head. Denies any known specific injury but thinks he may have moved his head quickly yesterday prior to onset of pain. No extremity weakness or numbness. No fever or headache. Tenderness to palpation left cervical paraspinal region with limitation of range of motion of head due to left-sided neck pain. No midline C-spine tenderness. Motor/sensory grossly intact upper extremities and no focal deficits. Neurovascularly intact. Appears consistent with cervical muscle spasm. Patient has an allergy to naproxen which causes rash. Discussed with patient that anti-inflammatories tend to work best for the pain, but with this limitation of medication options, will recommend Tylenol. Patient also took a taxi here. Will send home with 2 tabs of Valium to take in place of the Flexeril as he had no relief with this. He is instructed to not take Flexeril while taking Valium. He is also instruc vinayak on the importance of ice, heat, massage to the area with gentle range of motion exercises to relieve spasm. He is instructed to follow-up with his primary care doctor for reevaluation and return here at any time if worse. HPI General Mode of arrival: ambulatory . Date/Time Provider Initiated Documentation: 02/25/18 15:37 . Limitations to Documentation: no limitations . Information obtained by: patient . HPI Narrative: Patient is a 52-year-old male who presents to the ED w/ a c/o left-sided neck pain since 6 PM last night. Patient states the pain is worse with any head or left arm movement. Patient states he went to bed last night and awoke at 1230 with worsening pain. Patient states he took Tylenol and Flexeril at 12:30 AM without relief. States he took additional Tylenol and Flexeril this afternoon at 2 PM without relief. Patient denies any arm or leg weakness or numbness and denies any injury but states he thinks he was moving his head quickly last night and may have tweaked a muscle. He denies any fever or headache. Related Data Home Medications Medication Instructions Recorded Confirmed Ventolin HFA 1 - 2 puff INHALATION Q4H PRN #1 12/24/15 02/25/18 inhaler paroxetine HCl 20 mg PO DAILY #90 tab-cap 08/11/16 02/25/18 cholecalciferol (vitamin D3) 2,000 unit PO DAILY #90 tab-cap 02/17/17 02/25/18 [Vitamin D3] amlodipine 2.5 mg PO DAILY tab-cap 03/24/17 02/25/18 metformin 1,000 mg PO DAILY #180 tab-cap 04/02/17 02/25/18 glipizide 2.5 mg PO DAILY #90 tab 04/16/17 02/25/18 docusate sodium [Colace] 100 mg PO DAILY #90 cap 07/01/17 02/25/18 aspirin 81 mg PO DAILY 90 Days #90 tabec 08/13/17 02/25/18 omeprazole 40 mg capsule,delayed 40 mg PO DAILY 90 Days #90 cap 10/20/17 02/25/18 release acetaminophen 500 mg tablet 500 mg PO Q4H PRN 10/26/17 02/25/18 atorvastatin 20 mg tablet 20 mg PO DAILY 10/26/17 02/25/18 nicotine 10 mg inhalation cartridge 1 inh IH Q1H PRN each 11/02/17 02/25/18 nicotine 21 mg/24 hr daily 1 patch TD Q24H #28 each 11/23/17 02/25/18 transdermal patch lisinopril 30 mg tablet 30 mg PO DAILY #90 tab-cap 12/17/17 02/25/18 sennosides [Senokot] 17.2 mg PO HS 01/09/18 02/25/18 diphenhydramine HCl [Benadryl] 50 mg PO Q6H #30 cap 01/16/18 02/25/18 famotidine [Pepcid] 20 mg PO BID #10 tab 01/16/18 02/25/18 ondansetron 4 mg PO QID PRN #10 tab 01/16/18 02/25/18 hydroxyzine HCl 50 mg PO QID PRN #14 tab 01/18/18 02/25/18 cyclobenzaprine 10 mg tablet 10 mg PO TID PRN #21 tab 01/21/18 02/25/18 Previous Rx's Medication Instructions Recorded cholecalciferol (vitamin D3) 2,000 unit PO DAILY #90 tab-cap 02/17/17 [Vitamin D3] metformin 1,000 mg PO DAILY #180 tab-cap 04/02/17 glipizide 2.5 mg PO DAILY #90 tab 04/16/17 docusate sodium [Colace] 100 mg PO DAILY #90 cap 07/01/17 aspirin 81 mg PO DAILY 90 Days #90 tabec 08/13/17 omeprazole 40 mg capsule,delayed 40 mg PO DAILY 90 Days #90 cap 10/20/17 release nicotine 21 mg/24 hr daily 1 patch TD Q24H #28 each 11/23/17 transdermal patch lisinopril 30 mg tablet 30 mg PO DAILY #90 tab-cap 12/17/17 diphenhydramine HCl [Benadryl] 50 mg PO Q6H #30 cap 01/16/18 famotidine [Pepcid] 20 mg PO BID #10 tab 01/16/18 ondansetron 4 mg PO QID PRN #10 tab 01/16/18 hydroxyzine HCl 50 mg PO QID PRN #14 tab 01/18/18 cyclobenzaprine 10 mg tablet 10 mg PO TID PRN #21 tab 01/21/18 Allergies Allergy/AdvReac Type Severity Reaction Status Date / Time celecoxib Allergy Intermediate Rash, Verified 02/25/18 15:40 urticaria naproxen Allergy Intermediate Itchy Welts Verified 02/25/18 15:40 prednisone AdvReac Unknown Upset Verified 02/25/18 15:40 stomach, fatigue General Stated Complaint: Nk/Back Pain JAMES: 3 Review of Systems Review of Systems All systems reviewed & are unremarkable except as noted in HPI and below Constitutional Reports as per HPI, Denies chills and Denies fever(s) Eyes Denies blurry vision ENT Denies dizziness, Reports neck pain, Denies sore throat and Denies throat swelling Cardiovascular Denies chest pain and Denies dyspnea Respiratory Denies dyspnea Gastrointestinal Denies abdominal pain, Denies diarrhea and Denies vomiting Genitourinary Denies hematuria and Denies dysuria Musculoskeletal Denies back pain, Reports neck pain and Denies numbness Integumentary/Breasts Denies lesions and Denies rash Neurologic Denies dizziness and Denies numbness Allergic/Immunologic Denies throat swelling [facility] Medical History Adult BMI > 30 Alcohol abuse GERD (gastroesophageal reflux disease) HLD (hyperlipidemia) HTN (hypertension) Microscopic hematuria ELIU (obstructive sleep apnea) Plantar fasciitis T2DM (type 2 diabetes mellitus) Tobacco use disorder Vitamin D deficiency Surgical History Cardiac Cath (03/24/17) Colonoscopy - IV Sedation (09/26/14) Cystoscopy w/ joe retrograde pyelogram (03/01/15) Extraction of cataract (11/19/16) Extraction of cataract (12/17/16) Family History Father Essential hypertension Neoplasm Mother Diabetes Essential hypertension Sister No problems noted. Sister No problems noted. Social History housing: apartment lives independently: Yes number of children: 3 current occupational status: disabled Smoking/Tobacco Use Status: Current every day how long ago did patient quit smokin01/08/18 alcohol intake: never substance use type: does not use working smoke detector in home: No fire extinguisher in home: No carbon monox detector in home: No Exam Const General: cooperative, healthy appearing and other (Appears mild to moderately uncomfortable) HENIL Head: normal to inspection Face and sinus: normal facial exam Eyes General: appearance normal, both eyes and all related structures EOM: EOM intact bilaterally Neck Neck: normal visual inspection Chest Chest: normal inspection of the chest and no tenderness Resp Effort & Inspection: normal respiratory effort and able to speak in complete sentences Auscultation: clear to auscultation bilaterally Cardio Rate: regular rate Rhythm: regular rhythm GI Inspection: obesity Palpation: soft, not firm, not rigid and nontender Auscultation: normal bowel sounds Back/Spine/Pelvis Cervical Spine: cervical muscular tenderness (L sided neck tenderness to palpation ), pain with cervical ROM, cervical spasm, No cervical spinal tenderness and other (Difficulty with moving head due to left-sided neck pain. ) Skin General skin exam: no rashes or lesions noted Neuro General: alert, awake and oriented x3 Cognition: normal cognition Speech: speech normal Motor: muscle tone normal throughout and strength 5/5 throughout Sensory Exam: no sensory deficits noted Extrem General: normal to inspection, full ROM and normal capillary refill Psych Appearance: grossly normal Mental Status: mental status grossly normal Speech and Movement: speech and movement normal Affect: normal affect Course Vital Signs Temperature 97.9 F 02/25/18 15:34 Pulse 96 H 02/25/18 15:34 Respiratory Rate 18 02/25/18 15:34 Blood Pressure 116/58 L 02/25/18 15:34 Pulse Oximetry 95 02/25/18 15:34 Temperature 97.9 F 02/25/18 15:34 Temperature Source Skin 02/25/18 15:34 Pulse 96 H 02/25/18 15:34 Respiratory Rate 18 02/25/18 15:34 Respiratory Effort 02/25/18 15:40 Blood Pressure 116/58 L 02/25/18 15:34 Blood Pressure Position Sitting 02/25/18 15:34 Pulse Oximetry 95 02/25/18 15:34 Oxygen Delivery Method Room Air 02/25/18 15:34 Oxygen Flow Rate 0 02/25/18 15:34 Pain Level 9 02/25/18 15:34
[2018-02-25] MEDS: Diazepam 5 MG TAB PO ×2 (16:21→16:22)
== END 2018-02-25 16:23 | disposition home or self-care (01) ==
LOC: ER 16:22
PROVIDERS: Emergency Provider Physician Assistant; PCP Family Medicine
DX: M62.838 Other muscle spasm (principal); I10 Essential (primary) hypertension; E11.9 Type 2 diabetes mellitus without complications; Z79.84 Long term (current) use of oral hypoglycemic drugs
CPT/HCPCS: 99283

== ENCOUNTER 2018-04-27 18:09 | Emergency (ER) | payer MEDICARE, MEDICAID, SELFPAY ==
[2018-04-27 18:14] VITALS: BP 132/46; PULSE 80; RESP 24; TEMP 36.6; O2SAT 95
--- NOTE | 2018-04-27 18:32 | ED.GENADUL_ITS ---
Discharge Plan Disposition Patient Disposition: HOME Condition: Improving Discharge Details Chief Complaint: Headache Clinical Impression: Cervical disc disease Primary Care Provider: Garth Marroquin ED Provider: Leonidas Del Rio Home Meds and New Rx's Prescriptions: New methocarbamol 500 mg tablet 500 mg PO Q6H PRN (Reason: Back pain or spasm) Qty: 14 RF: 0 Continued acetaminophen [Tylenol Extra Strength] 500 mg tablet 500 mg PO Q4H PRNRF: 0 atorvastatin 20 mg tablet 20 mg PO DAILY RF: 0 lisinopril 30 mg tablet 30 mg PO DAILY Qty: 90 RF: 3 albuterol sulfate [Ventolin HFA] 8 GM HFA aerosol inhaler 1 - 2 puff Inhalation Q4H PRN Qty: 1 RF: 1 aspirin 81 MG tablet,delayed release (DR/EC) 81 mg PO DAILY 90 Days Qty: 90 RF: 3 omeprazole 40 mg capsule,delayed release(DR/EC) 40 mg PO DAILY 90 Days Qty: 90 RF: 3 metformin 500 mg tablet extended release 24 hr 1,000 mg PO DAILY Qty: 180 RF: 3 cholecalciferol (vitamin D3) [Vitamin D3] 2,000 unit tablet 2,000 unit PO DAILY Qty: 90 RF: 3 amlodipine 2.5 mg tablet 2.5 mg PO DAILY Qty: 90 RF: 3 glipizide 2.5 mg tablet extended release 24hr 2.5 mg PO DAILY Qty: 90 RF: 3 Discharge Instructions Additional Instructions: Remove the Lidoderm patch in 12 hours time. CAT scan did show evidence of disc bulge at level C4, 5, 6, 7. Please follow-up with pain clinic as previously referred. Continue Tylenol as needed for pain. May use the prescribed methocarbamol as needed for muscular pain. Return for increasing discomfort, motor weakness, or any other acute concerns Medical Decision Making 52-year-old male presents from home complaining of 2 months of left-sided neck pain that today has radiated to his head and caused a headache. He is been evaluated with both physical therapy and primary care clinic and has a pending referral to pain clinic. He is well-appearing, afebrile, without evidence of neurologic deficit. Differential diagnosis includes muscular spasm, cervical radiculopathy, must exclude underlying mass. Patient given acetaminophen, referred for CT imaging. Did not reveal any acute intracranial findings. There is opacification to some of the mastoid air cells, but no mastoid process tenderness. Cervical spine images images reveal disc bulge at C4-5, C5-6, C6-7. No motor weakness. We will trial increased symptomatic management and he will follow-up in pain clinic as previously referred. Lidoderm patch placed and will trial methocarbamol. HPI General Mode of arrival: ambulatory . Date/Time Provider Initiated Documentation: 04/27/18 18:10 . Limitations to Documentation: no limitations . Information obtained by: patient . History of Present Illness 52 year old M presents to the emergency department with the chief complaint of L neck pain for 2 months, now radiating to head, described as moderate, Quality is described as dull, and is localized to the neck and left. Patient neck. Patient started experiencing this week(s) and it has been intermittent. No relieving factors improve symptom(s), No exacerbating factors reported . Patient notes no other symptoms.. Patient did receive the following treatments prior to arrival, none Related Data Home Medications Medication Instructions Recorded Confirmed albuterol sulfate [Ventolin HFA] 1 - 2 puff INHALATION Q4H PRN #1 12/24/15 04/27/18 inhaler aspirin 81 mg PO DAILY 90 Days #90 tabec 08/13/17 04/27/18 omeprazole 40 mg capsule,delayed 40 mg PO DAILY 90 Days #90 cap 10/20/17 04/27/18 release acetaminophen 500 mg tablet 500 mg PO Q4H PRN 10/26/17 04/27/18 atorvastatin 20 mg tablet 20 mg PO DAILY 10/26/17 04/27/18 lisinopril 30 mg tablet 30 mg PO DAILY #90 tab-cap 12/17/17 04/27/18 metformin ER 500 mg 1,000 mg PO DAILY #180 tab-cap 03/22/18 04/27/18 tablet,extended release 24 hr amlodipine 2.5 mg tablet 2.5 mg PO DAILY #90 tab-cap 04/12/18 04/27/18 cholecalciferol (vitamin D3) 2,000 2,000 unit PO DAILY #90 tab-cap 04/12/18 04/27/18 unit tablet glipizide ER 2.5 mg tablet, 2.5 mg PO DAILY #90 tab 04/12/18 04/27/18 extended release 24 hr methocarbamol 500 mg PO Q6H PRN #14 tab 04/27/18 Previous Rx's Medication Instructions Recorded aspirin 81 mg PO DAILY 90 Days #90 tabec 08/13/17 omeprazole 40 mg capsule,delayed 40 mg PO DAILY 90 Days #90 cap 10/20/17 release lisinopril 30 mg tablet 30 mg PO DAILY #90 tab-cap 12/17/17 metformin ER 500 mg 1,000 mg PO DAILY #180 tab-cap 03/22/18 tablet,extended release 24 hr amlodipine 2.5 mg tablet 2.5 mg PO DAILY #90 tab-cap 04/12/18 cholecalciferol (vitamin D3) 2,000 2,000 unit PO DAILY #90 tab-cap 04/12/18 unit tablet glipizide ER 2.5 mg tablet, 2.5 mg PO DAILY #90 tab 04/12/18 extended release 24 hr methocarbamol 500 mg PO Q6H PRN #14 tab 04/27/18 Allergies Allergy/AdvReac Type Severity Reaction Status Date / Time celecoxib Allergy Intermediate Rash, Verified 04/26/18 16:06 urticaria naproxen Allergy Intermediate Itchy Welts Verified 04/26/18 16:06 prednisone AdvReac Unknown Upset Verified 04/26/18 16:06 stomach, fatigue General Stated Complaint: Headache JAMES: 3 Review of Systems Review of Systems No visual changes, no motor weakness denies fall or injury. 8 systems reviewed and otherwise negative. [facility] Medical History Obstructive sleep apnea (Chronic 03/10/16) Obesity, unspecified (Chronic 12/05/11) Mixed hyperlipidemia (Chronic 02/16/01) Gastroesophageal reflux disease without esophagitis (Chronic 12/05/11) Essential hypertension (Chronic) Diabetes mellitus type 2 in obese (Chronic 02/19/16) Chronic kidney disease (CKD), stage III (moderate) (Chronic 05/26/16) Abnormal stress test (Chronic) Type 2 diabetes mellitus with peripheral neuropathy (Chronic) History of hyperlipidemia (Chronic) History of sleep apnea (Chronic) Paresthesias (Resolved 10/27/16) Adult BMI > 30 Alcohol abuse GERD (gastroesophageal reflux disease) HLD (hyperlipidemia) HTN (hypertension) Microscopic hematuria ELIU (obstructive sleep apnea) Plantar fasciitis T2DM (type 2 diabetes mellitus) Tobacco use disorder Vitamin D deficiency Surgical History Cardiac Cath (03/24/17) Colonoscopy - IV Sedation (09/26/14) Cystoscopy w/ jeo retrograde pyelogram (03/01/15) Extraction of cataract (11/19/16) Extraction of cataract (12/17/16) Family History Father Essential hypertension Neoplasm Mother Diabetes Essential hypertension Sister No problems noted. Sister No problems noted. Social History housing: apartment lives independently: Yes number of children: 3 current occupational status: disabled what type of physical activity do you participate in: none Smoking and Tabacco status: Current every day how long ago did patient quit smokin01/08/18 alcohol intake: never substance use type: does not use working smoke detector in home: No fire extinguisher in home: No carbon monox detector in home: No Exam Narrative Exam Narrative: GEN: awake, alert, oriented 3. Pleasant, well groomed, interactive. HEAD: Normocephalic, atraumatic ENT: Mucous membranes moist, oropharynx unremarkable, External ear exam unremarkable EYES: PERRL, EOMI NECK: Full ROM, no EUNICE, no menigismus. Left neck paraspinous musculature is tender with mild spasm present. No midline step-off or deformity CHEST/RESP: Nontender, clear to auscultation bilateral, no wheeze/rhonchi/rales CARDIOVASCULAR: Distant, RRR, no murmur, rub niranjan. 2+ Rad pulse bilateral ABDOMEN: Soft, nontender, no mass. +Bowel sounds EXT: Full ROM, no edema, no rash. Motor 5 out of 5 in the bilateral upper extremity. Sensation intact throughout Neuro: Grossly normal neurologic exam, conversant, interactive. Narrow based gait with good heel strike. Psych: Speech fluent, thoughts congruent, affect normal Course Vital Signs Temperature 36.6 C 04/27/18 18:14 Pulse 80 04/27/18 18:14 Respiratory Rate 24 04/27/18 18:14 Blood Pressure 132/46 L 04/27/18 18:14 Pulse Oximetry 95 04/27/18 18:14 Temperature 36.6 C 04/27/18 18:14 Temperature Source Temporal Artery Scan 04/27/18 18:14 Pulse 80 04/27/18 18:14 Respiratory Rate 24 04/27/18 18:14 Respiratory Effort Non-Labored 04/27/18 18:21 Blood Pressure 132/46 L 04/27/18 18:14 Blood Pressure Position Sitting 04/27/18 18:14 Pulse Oximetry 95 04/27/18 18:14 Oxygen Delivery Method Room Air 04/27/18 18:14 Oxygen Flow Rate 0 04/27/18 18:14 Pain Level 8 04/27/18 18:26
--- NOTE | 2018-04-27 19:01 | NUR.NOTE ---
Escort to CT via wheelchair.Nursing Note:
--- NOTE | 2018-04-27 19:10 | DI.CT_ITS ---
SYMPTOM/DIAGNOSIS: LT NECK PAIN AND POSTERIOR HEADACHE NONCONTRAST HEAD CT: The study was carried out according to the usual protocol without contrast enhancement. There is no evidence of an intra/extra-axial hemorrhage, mass or fluid collection. The ventricles are normal. There is no skull fracture. The sinuses are intact. There is some bilateral mastoid air cell sclerosis. No fluid is identified. These findings to be correlated with the patient's history and clinical status. IMPRESSION: No acute intracranial abnormality is seen. Please see the above discussion. CERVICAL SPINE CT: There is no evidence of a fracture or subluxation. Degenerative changes are identified. There are degenerative bony changes associated with disc space narrowing at C 5-6 and posterior spurring is noted at this level. Facet joint degenerative changes are identified. The neural canal appears patent save for some mild compromise at the level of C 5-6 where posterior spurring is identified. The AP diameter of the canal at this level is approximately 12 mm. as estimated from the present study. Note is also made of a disc bulge at C 4-5 and a probable small central disc bulge at C 5-6 and C 6-7. If clinically warranted, this patient could be further evaluated with MRI. In addition to the above, there is a small region of increased bony density in the spinous process of T 1, likely representing a bone island. The soft tissues are unremarkable. The visualized portions of the apical aspect of the lung appear unremarkable. SUMMARY: There is no evidence of an acute fracture or subluxation. Note is made of degenerative changes as described above. If there is any further clinical question regarding the status of this patient regarding spinal stenosis, then an MRI could be considered.
[2018-04-27] MEDS: Acetaminophen 500 MG TAB 1000 MG PO (19:22)
--- NOTE | 2018-04-27 19:22 | NUR.NOTE ---
Return to ED from CT. No eventsNursing Note:
[2018-04-27 19:37] VITALS: BP 117/52; PULSE 70; RESP 24; O2SAT 94
--- NOTE | 2018-04-27 20:00 | DI.VRAD_ITS ---
EXAM: CT Head Without Contrast EXAM DATE/TIME: 04/27/2018 6:48 PM CLINICAL HISTORY: 52 years old, male; Pain; Headache; Other: Posterior; Neck pain; Patient HX: Headache and neck pain increasing today. Posterior headache with neck pain more on the left side TECHNIQUE: Axial computed tomography images of the head/brain without contrast. All CT scans at this facility use at least one of these dose optimization techniques: automated exposure control; mA and/or kV adjustment per patient size (includes targeted exams where dose is matched to clinical indication); or iterative reconstruction. Coronal and sagittal reformatted images were created and reviewed. COMPARISON: CT HEAD WITHOUT CONTRAST 08/26/2014 8:13 PM FINDINGS: Brain: No acute intracranial hemorrhage identified. Ventricles: Normal. No ventriculomegaly. Bones/joints: Unremarkable. No acute fracture. Sinuses: No fluid levels. Mastoid air cells: There is opacification to some of the mastoid air cells bilaterally which should be correlated with any concern for mastoiditis. Soft tissues: Unremarkable. IMPRESSION: 1. No acute intracranial hemorrhage identified. 2.There is opacification to some of the mastoid air cells bilaterally which should be correlated with any concern for mastoiditis. EXAM: CT Cervical Spine Without Contrast EXAM DATE/TIME: 04/27/2018 6:48 PM CLINICAL HISTORY: 52 years old, male; Pain; Headache; Other: Posterior; Neck pain; Patient HX: Headache and neck pain increasing today. Posterior headache with neck pain more on the left side TECHNIQUE: Axial computed tomography images of the cervical spine without intravenous contrast. All CT scans at this facility use at least one of these dose optimization techniques: automated exposure control; mA and/or kV adjustment per patient size (includes targeted exams where dose is matched to clinical indication); or iterative reconstruction. Coronal and sagittal reformatted images were created and reviewed. COMPARISON: CT HEAD WITHOUT CONTRAST 08/26/2014 8:13 PM FINDINGS: Vertebrae: No acute fracture identified. Skeletal degenerative changes are noted. There is some waviness to the C-spine on the sagittal reconstructions which may be muscular in nature. No listhesis identified. There is a 5 mm sclerotic focus within the T1 spinous process. In the absence of known malignancy, this is most likely a bone island. Discs/Spinal canal/Neural foramina: There is disc space narrowing at C5-6. There is a central and left paracentral disc bulge at C4-5 (series 3 image 35). There are small central disc bulges at C5-6 and C6-7. If the patient is symptomatic, MRI could be considered. Soft tissues: Unremarkable. Lungs: Lung apices are normal. IMPRESSION: 1. No acute fracture or listhesis identified. There is some waviness to the C-spine on the sagittal reconstructions which may be muscular in nature. 2. . There is a central and left paracentral disc bulge at C4-5 (series 3 image 35). There are small central disc bulges at C5-6 and C6-7. If the patient is symptomatic, MRI could be considered. Other findings as above. Dictated and Authenticated by: Valentine Almonte MD. Ordering:JENNY Lauren MD
[2018-04-27] MEDS: Lidocaine 5% Patch 1 PATCH TP (20:11)
[2018-04-27] MEDS: Methocarbamol 500 MG TAB 1000 MG PO (20:11)
== END 2018-04-27 20:18 | disposition home or self-care (01) ==
PROVIDERS: Emergency Provider Emergency Medicine; PCP Family Medicine
DX: M50.91 Cervical disc disorder, unspecified, high cervical region (principal); M50.921 Unspecified cervical disc disorder at C4-C5 level; M50.923 Unspecified cervical disc disorder at C6-C7 level; M54.2 Cervicalgia; I10 Essential (primary) hypertension; E11.9 Type 2 diabetes mellitus without complications
CPT/HCPCS: 99284; 70450; 72125; 99283

== ENCOUNTER 2018-05-20 21:29 | Emergency (ER) | payer MEDICARE, MEDICAID, SELFPAY ==
--- NOTE | 2018-05-20 21:29 | W.ED.GENAD ---
Discharge Plan Disposition Patient Disposition: HOME Condition: Stable Discharge Details Chief Complaint: GenMedical Clinical Impression: Post-op bleeding Primary Care Provider: Garth Marroquin ED Provider: Danis Crawford Home Meds and New Rx's Prescriptions: No Action acetaminophen [Tylenol Extra Strength] 500 mg tablet 500 mg PO Q4H PRNRF: 0 atorvastatin 20 mg tablet 20 mg PO DAILY RF: 0 lisinopril 30 mg tablet 30 mg PO DAILY Qty: 90 RF: 3 albuterol sulfate [Ventolin HFA] 8 GM HFA aerosol inhaler 1 - 2 puff Inhalation Q4H PRN Qty: 1 RF: 1 aspirin 81 MG tablet,delayed release (DR/EC) 81 mg PO DAILY 90 Days Qty: 90 RF: 3 omeprazole 40 mg capsule,delayed release(DR/EC) 40 mg PO DAILY 90 Days Qty: 90 RF: 3 metformin 500 mg tablet extended release 24 hr 1,000 mg PO DAILY Qty: 180 RF: 3 amlodipine 2.5 mg tablet 2.5 mg PO DAILY Qty: 90 RF: 3 tizanidine 4 mg tablet 4 mg PO Q8H PRN (Reason: muscle spasticity) Qty: 30 RF: 0 glipizide 2.5 mg tablet extended release 24hr 2.5 mg PO DAILY Qty: 90 RF: 3 cholecalciferol (vitamin D3) [Vitamin D3] 2,000 unit tablet 2,000 unit PO DAILY Qty: 90 RF: 3 Discharge Instructions Additional Instructions: your lab work done today showed no evidence you are having a concerning amount of bleeding, bleeding after this procedure you had done is not uncommong follow up as scheduled with your GI specialist on Thursday If you develop abdominal pain, chest pain, difficulty breathing or severe weakness or dizziness return to the emergency department Medical Decision Making 52 yo male comes in with bloody stools. He states he had a screening colonoscopy last in [place] and the past few days has had bloody stools. He states earlier today he went to the [place] ED and had labs and imaging done and was d/c'd home. He again had blood in his stool with bowel movement and so came here. Denies any other symptoms such as chest pain, sob, abdominal pain or weakness. HAs a soft nontender abdomen. On rectal exam has no blood coming out of rectum or hemorrhoids, and on internal exam no palpable deformities. HAs brown stool with intermixed dark blood. Suspect post op bleeding as he states he had clips placed and likely had polyps or other abnormality biopsied. Will obtain records from [facility] and [facility] for significant anemia pt remains stable and no bleeding here. I received the records from [facility] and the ct showed no acute findings that he had there and his labs were unremarkable. They spoke with his GI specialist and given reassuring labs plan was for him to f/u on Thursday as scheduled. His labs that he has had done today shows hgb and hct of 15 and 44 which is what it was at 10am this morning at [place] and otherwise no significant findings. Given still no change in H/H feel he can be d/c'd, did give strict return precautions Differential Diagnosis post op bleeding, hemorrhoid Lab Data Lab results reviewed: Yes I reviewed the patient's lab results. HPI General Mode of arrival: ambulatory. Date/Time Provider Initiated Documentation: 05/20/18 21:29. Limitations to Documentation: no limitations. Information obtained by: patient. History of Present Illness 52 year old M presents to the emergency department with the chief complaint of blood in stool, described as moderate, Patient started experiencing this week(s) (1) and it has been constant. No relieving factors improve symptom(s), No exacerbating factors reported . Patient notes no other symptoms.. Patient did receive the following treatments prior to arrival, none Related Data Home Medications Medication Instructions Recorded Confirmed albuterol sulfate [Ventolin HFA] 1 - 2 puff INHALATION Q4H PRN #1 12/24/15 04/27/18 inhaler aspirin 81 mg PO DAILY 90 Days #90 tabec 08/13/17 04/27/18 omeprazole 40 mg capsule,delayed 40 mg PO DAILY 90 Days #90 cap 10/20/17 04/27/18 release acetaminophen 500 mg tablet 500 mg PO Q4H PRN 10/26/17 04/27/18 atorvastatin 20 mg tablet 20 mg PO DAILY 10/26/17 04/27/18 lisinopril 30 mg tablet 30 mg PO DAILY #90 tab-cap 12/17/17 04/27/18 metformin ER 500 mg 1,000 mg PO DAILY #180 tab-cap 03/22/18 04/27/18 tablet,extended release 24 hr amlodipine 2.5 mg tablet 2.5 mg PO DAILY #90 tab-cap 04/12/18 04/27/18 tizanidine 4 mg tablet 4 mg PO Q8H PRN #30 tab 04/29/18 cholecalciferol (vitamin D3) 2,000 2,000 unit PO DAILY #90 tab-cap 05/11/18 unit tablet glipizide ER 2.5 mg tablet, 2.5 mg PO DAILY #90 tab 05/11/18 extended release 24 hr Previous Rx's Medication Instructions Recorded aspirin 81 mg PO DAILY 90 Days #90 tabec 08/13/17 omeprazole 40 mg capsule,delayed 40 mg PO DAILY 90 Days #90 cap 10/20/17 release lisinopril 30 mg tablet 30 mg PO DAILY #90 tab-cap 12/17/17 metformin ER 500 mg 1,000 mg PO DAILY #180 tab-cap 03/22/18 tablet,extended release 24 hr amlodipine 2.5 mg tablet 2.5 mg PO DAILY #90 tab-cap 04/12/18 tizanidine 4 mg tablet 4 mg PO Q8H PRN #30 tab 04/29/18 cholecalciferol (vitamin D3) 2,000 2,000 unit PO DAILY #90 tab-cap 05/11/18 unit tablet glipizide ER 2.5 mg tablet, 2.5 mg PO DAILY #90 tab 05/11/18 extended release 24 hr Allergies Allergy/AdvReac Type Severity Reaction Status Date / Time celecoxib Allergy Intermediate Rash, Verified 05/20/18 21:48 urticaria naproxen Allergy Intermediate Itchy Welts Verified 05/20/18 21:48 prednisone AdvReac Unknown Upset Verified 05/20/18 21:48 stomach, fatigue General JAMES: 3 Review of Systems Review of Systems All systems reviewed & are unremarkable except as noted in HPI and below Constitutional Denies chills and Denies fever(s) Cardiovascular Denies chest pain and Denies dyspnea Respiratory Denies cough and Denies dyspnea Gastrointestinal Denies abdominal pain and Denies vomiting Musculoskeletal Denies joint swelling Integumentary/Breasts Denies rash Psychiatric Denies depression FORMERLY [facility] Medical History Obstructive sleep apnea (Chronic 03/10/16) Obesity, unspecified (Chronic 12/05/11) Mixed hyperlipidemia (Chronic 01/01/02) Gastroesophageal reflux disease without esophagitis (Chronic 12/05/11) Essential hypertension (Chronic) Diabetes mellitus type 2 in obese (Chronic 02/19/16) Chronic kidney disease (CKD), stage III (moderate) (Chronic 05/26/16) Abnormal stress test (Chronic) Type 2 diabetes mellitus with peripheral neuropathy (Chronic) History of hyperlipidemia (Chronic) History of sleep apnea (Chronic) Paresthesias (Resolved 10/27/16) Adult BMI > 30 Alcohol abuse GERD (gastroesophageal reflux disease) HLD (hyperlipidemia) HTN (hypertension) Microscopic hematuria ELIU (obstructive sleep apnea) Plantar fasciitis T2DM (type 2 diabetes mellitus) Tobacco use disorder Vitamin D deficiency Surgical History Cardiac Cath (03/24/17) Colonoscopy - IV Sedation (09/26/14) Cystoscopy w/ joe retrograde pyelogram (03/01/15) Extraction of cataract (11/19/16) Extraction of cataract (12/17/16) Family History Father Essential hypertension Neoplasm Mother Diabetes Essential hypertension Sister No problems noted. Sister No problems noted. Social History Smoking/Tobacco Use Status: Current every day Alcohol Intake: never Drug use: Never Substance use type: does not use Housing: apartment Number of Children: 3 What type of physical activity do you participate in: none Working smoke detector in home: No Fire extinguisher in home: No Carbon monox detector in home: No Do you feel safe in your relationship?: Yes Exam Const General: no acute distress Orientation: alert HENMT Head: normal to inspection Ears: external ears normal General nose exam: external nose normal Mouth: moist mucous membranes Eyes General: appearance normal, both eyes and all related structures Neck Neck: normal visual inspection Resp Effort & Inspection: normal respiratory effort and able to speak in complete sentences Cardio Rate: regular rate GI Palpation: soft Rectal Exam: No hemorrhoids Skin General skin exam: no rashes or lesions noted Neuro General: alert and oriented x3 Extrem General: normal to inspection Psych Mental Status: mental status grossly normal
[2018-05-20 21:42] VITALS: BP 114/45; PULSE 102; RESP 20; TEMP 36.7; O2SAT 97
[2018-05-20 21:48] VITALS: RESP 20
--- NOTE | 2018-05-20 22:00 | ED.GENADUL_ITS ---
Discharge Plan Disposition Patient Disposition: HOME Condition: Stable Discharge Details Chief Complaint: GenMedical Clinical Impression: Post-op bleeding Primary Care Provider: Garth Marroquin ED Provider: Danis Crawford Home Meds and New Rx's Prescriptions: No Action acetaminophen [Tylenol Extra Strength] 500 mg tablet 500 mg PO Q4H PRNRF: 0 atorvastatin 20 mg tablet 20 mg PO DAILY RF: 0 lisinopril 30 mg tablet 30 mg PO DAILY Qty: 90 RF: 3 albuterol sulfate [Ventolin HFA] 8 GM HFA aerosol inhaler 1 - 2 puff Inhalation Q4H PRN Qty: 1 RF: 1 aspirin 81 MG tablet,delayed release (DR/EC) 81 mg PO DAILY 90 Days Qty: 90 RF: 3 omeprazole 40 mg capsule,delayed release(DR/EC) 40 mg PO DAILY 90 Days Qty: 90 RF: 3 metformin 500 mg tablet extended release 24 hr 1,000 mg PO DAILY Qty: 180 RF: 3 amlodipine 2.5 mg tablet 2.5 mg PO DAILY Qty: 90 RF: 3 tizanidine 4 mg tablet 4 mg PO Q8H PRN (Reason: muscle spasticity) Qty: 30 RF: 0 glipizide 2.5 mg tablet extended release 24hr 2.5 mg PO DAILY Qty: 90 RF: 3 cholecalciferol (vitamin D3) [Vitamin D3] 2,000 unit tablet 2,000 unit PO DAILY Qty: 90 RF: 3 Discharge Instructions Additional Instructions: your lab work done today showed no evidence you are having a concerning amount of bleeding, bleeding after this procedure you had done is not uncommong follow up as scheduled with your GI specialist on Thursday If you develop abdominal pain, chest pain, difficulty breathing or severe weakness or dizziness return to the emergency department Medical Decision Making 52 yo male comes in with bloody stools. He states he had a screening colonoscopy last in [place] and the past few days has had bloody stools. He states earlier today he went to the [place] ED and had labs and imaging done and was d/c'd home. He again had blood in his stool with bowel movement and so came here. Denies any other symptoms such as chest pain, sob, abdominal pain or weakness. HAs a soft nontender abdomen. On rectal exam has no blood coming out of rectum or hemorrhoids, and on internal exam no palpable deformities. HAs brown stool with intermixed dark blood. Suspect post op bleeding as he states he had clips placed and likely had polyps or other abnormality biopsied. Will obtain records from [facility] and [facility] for significant anemia pt remains stable and no bleeding here. I received the records from [facility] and the ct showed no acute findings that he had there and his labs were unremarkable. They spoke with his GI specialist and given reassuring labs plan was for him to f/u on Thursday as scheduled. His labs that he has had done today shows hgb and hct of 15 and 44 which is what it was at 10am this morning at [facility] and otherwise no significant findings. Given still no change in H/H feel he can be d/c'd, did give strict return precautions Differential Diagnosis post op bleeding, hemorrhoid Lab Data Lab results reviewed: Yes I reviewed the patient's lab results. HPI General Mode of arrival: ambulatory . Date/Time Provider Initiated Documentation: 05/20/18 21:29 . Limitations to Documentation: no limitations . Information obtained by: patient . History of Present Illness 52 year old M presents to the emergency department with the chief complaint of blood in stool, described as moderate, Patient started experiencing this week(s) (1) and it has been constant. No relieving factors improve symptom(s), No exacerbating factors reported . Patient notes no other symptoms.. Patient did receive the following treatments prior to arrival, none Related Data Home Medications Medication Instructions Recorded Confirmed albuterol sulfate [Ventolin HFA] 1 - 2 puff INHALATION Q4H PRN #1 12/24/15 04/27/18 inhaler aspirin 81 mg PO DAILY 90 Days #90 tabec 08/13/17 04/27/18 omeprazole 40 mg capsule,delayed 40 mg PO DAILY 90 Days #90 cap 10/20/17 04/27/18 release acetaminophen 500 mg tablet 500 mg PO Q4H PRN 10/26/17 04/27/18 atorvastatin 20 mg tablet 20 mg PO DAILY 10/26/17 04/27/18 lisinopril 30 mg tablet 30 mg PO DAILY #90 tab-cap 12/17/17 04/27/18 metformin ER 500 mg 1,000 mg PO DAILY #180 tab-cap 03/22/18 04/27/18 tablet,extended release 24 hr amlodipine 2.5 mg tablet 2.5 mg PO DAILY #90 tab-cap 04/12/18 04/27/18 tizanidine 4 mg tablet 4 mg PO Q8H PRN #30 tab 04/29/18 cholecalciferol (vitamin D3) 2,000 2,000 unit PO DAILY #90 tab-cap 05/11/18 unit tablet glipizide ER 2.5 mg tablet, 2.5 mg PO DAILY #90 tab 05/11/18 extended release 24 hr Previous Rx's Medication Instructions Recorded aspirin 81 mg PO DAILY 90 Days #90 tabec 08/13/17 omeprazole 40 mg capsule,delayed 40 mg PO DAILY 90 Days #90 cap 10/20/17 release lisinopril 30 mg tablet 30 mg PO DAILY #90 tab-cap 12/17/17 metformin ER 500 mg 1,000 mg PO DAILY #180 tab-cap 03/22/18 tablet,extended release 24 hr amlodipine 2.5 mg tablet 2.5 mg PO DAILY #90 tab-cap 04/12/18 tizanidine 4 mg tablet 4 mg PO Q8H PRN #30 tab 04/29/18 cholecalciferol (vitamin D3) 2,000 2,000 unit PO DAILY #90 tab-cap 05/11/18 unit tablet glipizide ER 2.5 mg tablet, 2.5 mg PO DAILY #90 tab 05/11/18 extended release 24 hr Allergies Allergy/AdvReac Type Severity Reaction Status Date / Time celecoxib Allergy Intermediate Rash, Verified 05/20/18 21:48 urticaria naproxen Allergy Intermediate Itchy Welts Verified 05/20/18 21:48 prednisone AdvReac Unknown Upset Verified 05/20/18 21:48 stomach, fatigue General JAMES: 3 Review of Systems Review of Systems All systems reviewed & are unremarkable except as noted in HPI and below Constitutional Denies chills and Denies fever(s) Cardiovascular Denies chest pain and Denies dyspnea Respiratory Denies cough and Denies dyspnea Gastrointestinal Denies abdominal pain and Denies vomiting Musculoskeletal Denies joint swelling Integumentary/Breasts Denies rash Psychiatric Denies depression [facility] Medical History Obstructive sleep apnea (Chronic 03/10/16) Obesity, unspecified (Chronic 12/05/11) Mixed hyperlipidemia (Chronic 01/01/02) Gastroesophageal reflux disease without esophagitis (Chronic 12/05/11) Essential hypertension (Chronic) Diabetes mellitus type 2 in obese (Chronic 02/19/16) Chronic kidney disease (CKD), stage III (moderate) (Chronic 05/26/16) Abnormal stress test (Chronic) Type 2 diabetes mellitus with peripheral neuropathy (Chronic) History of hyperlipidemia (Chronic) History of sleep apnea (Chronic) Paresthesias (Resolved 10/27/16) Adult BMI > 30 Alcohol abuse GERD (gastroesophageal reflux disease) HLD (hyperlipidemia) HTN (hypertension) Microscopic hematuria ELIU (obstructive sleep apnea) Plantar fasciitis T2DM (type 2 diabetes mellitus) Tobacco use disorder Vitamin D deficiency Surgical History Cardiac Cath (03/24/17) Colonoscopy - IV Sedation (09/26/14) Cystoscopy w/ joe retrograde pyelogram (03/01/15) Extraction of cataract (11/19/16) Extraction of cataract (12/17/16) Family History Father Essential hypertension Neoplasm Mother Diabetes Essential hypertension Sister No problems noted. Sister No problems noted. Social History Smoking/Tobacco Use Status: Current every day Alcohol Intake: never Drug use: Never Substance use type: does not use Housing: apartment Number of Children: 3 What type of physical activity do you participate in: none Working smoke detector in home: No Fire extinguisher in home: No Carbon monox detector in home: No Do you feel safe in your relationship?: Yes Exam Const General: no acute distress Orientation: alert HENMT Head: normal to inspection Ears: external ears normal General nose exam: external nose normal Mouth: moist mucous membranes Eyes General: appearance normal, both eyes and all related structures Neck Neck: normal visual inspection Resp Effort & Inspection: normal respiratory effort and able to speak in complete sentences Cardio Rate: regular rate GI Palpation: soft Rectal Exam: No hemorrhoids Skin General skin exam: no rashes or lesions noted Neuro General: alert and oriented x3 Extrem General: normal to inspection Psych Mental Status: mental status grossly normal
[2018-05-20 22:15] LABS: Abs Immature Grans 0.17 k/cumm (0.0-0.09); Absolute Basophil Count 0.08 k/cumm (0.0-0.2); Absolute Monocyte Count 1.44 k/cumm (0.11-0.7); Basophils % 0.5; Eosinophils % 1.5; HCT 44.6 % (40.0-50.0); HGB 15.3 g/dL (13.5-17.5); Lymphocytes % 14.5; Mean Corp. HGB Concentration 34.3 g/dL (32.0-36.0); Mean Corpuscular Hemoglobin 30.2 pg (27.0-33.0); Mean Platelet Volume 10.9 fL (8.0-11.0); Monocytes % 8.8; Neutrophils % 73.7; Platelet Count 225 x1000/uL (130-400); RBC 5.07 m/cumm (4.50-6.00); RBC Distribution Width 13.4 % (11.8-14.1); White Blood Cell Count 16.33 k/cumm (4.4-10.8)
[2018-05-20 22:18] LABS: Absolute Eosinophil Count 0.24 k/cumm (0.0-0.7); Absolute Lymphocyte Count 2.37 k/cumm (1.2-3.4); Absolute Neutrophil Count 12.04 k/cumm (1.2-6.7)
[2018-05-20 22:27] LABS: ALT 30 U/L (12-78); AST 17 U/L (15-37); Albumin 3.8 g/dL (3.4-5.0); Alkaline Phosphatase 96 U/L (46-116); Anion Gap 12.3 mmol/L (3-11); BUN 23 mg/dL (7-18); Bilirubin, Total 0.2 mg/dL (0.2-1.0); CO2 22.7 mmol/L (21.0-32.0); CREATININE 1.48 mg/dL (0.70-1.30); Calcium 8.4 mg/dL (8.5-10.1); Chloride 102 mmol/L (98-107); Estimated GFR 49.53 (mL/min/1.73m2); Glucose 155 mg/dL (70-100); Potassium 3.8 mmol/L (3.5-5.1); Sodium 137 mmol/L (136-145); Total Protein 7.2 g/dL (6.4-8.2)
[2018-05-20 22:32] LABS: INR 0.9 (0.9-1.1); PTT Activated 24.2 sec (21.0-31.4); Prothrombin Time 9.4 sec (9.3-11.0)
== END 2018-05-20 22:10 | disposition home or self-care (01) ==
PROVIDERS: Emergency Provider Emergency Medicine; PCP Family Medicine
DX: K91.840 Postprocedural hemorrhage of a digestive system organ or structure following a digestive system procedure (principal)
CPT/HCPCS: 36415; 80053; 99283; 85025; 85610; 85730

== ENCOUNTER 2018-06-08 19:32 | Emergency (ER) | payer MEDICARE, MEDICAID, SELFPAY ==
[2018-06-08 19:41] VITALS: BP 101/84; PULSE 106; RESP 16; TEMP 36.6; O2SAT 94
--- NOTE | 2018-06-08 20:08 | ED.GENADUL_ITS ---
Discharge Plan Disposition Patient Disposition: HOME Condition: Good Discharge Details Chief Complaint: GenMedical Clinical Impression: Hand cramp Primary Care Provider: Garth Marroquin ED Provider: Gregor Solorzano [place] Meds and New Rx's Prescriptions: Continued acetaminophen [Tylenol Extra Strength] 500 mg tablet 500 mg PO Q4H PRNRF: 0 atorvastatin 20 mg tablet 20 mg PO DAILY RF: 0 lisinopril 30 mg tablet 30 mg PO DAILY Qty: 90 RF: 3 albuterol sulfate [Ventolin HFA] 8 GM HFA aerosol inhaler 1 - 2 puff Inhalation Q4H PRN Qty: 1 RF: 1 aspirin 81 MG tablet,delayed release (DR/EC) 81 mg PO DAILY 90 Days Qty: 90 RF: 3 omeprazole 40 mg capsule,delayed release(DR/EC) 40 mg PO DAILY 90 Days Qty: 90 RF: 3 metformin 500 mg tablet extended release 24 hr 1,000 mg PO DAILY Qty: 180 RF: 3 amlodipine 2.5 mg tablet 2.5 mg PO DAILY Qty: 90 RF: 3 tizanidine 4 mg tablet 4 mg PO Q8H PRN (Reason: muscle spasticity) Qty: 30 RF: 0 glipizide 2.5 mg tablet extended release 24hr 2.5 mg PO DAILY Qty: 90 RF: 3 cholecalciferol (vitamin D3) [Vitamin D3] 2,000 unit tablet 2,000 unit PO DAILY Qty: 90 RF: 3 Discharge Instructions Additional Instructions: Your laboratory studies for the most part unremarkable. Your potassium was only a little low. This does not clinically/historically sound like stroke. It sounds more like a cramp and spasm in the hand. Please follow-up with your primary care doctor next week if continued episodes. Return to ED if you develop difficulty speaking, facial weakness, arm weakness, numbness, other concerns. Referrals: Garth Marroquin DO [Primary Care Provider] - Medical Decision Making Patient is describing claw hand and wrist that is likely related to spasm and not flaccid weakness that one would expect with stroke. He had no other symptomatology associated with it. He has a normal neurological exam currently. I do think it is worth checking electrolytes though there is no reason for them to be abnormal. I otherwise do not think imaging or need for stroke work-up is necessary. Historically this does not sound strokelike in nature. Patient's electrolytes are normal except for slightly low potassium. This is been replaced orally. It is not low enough for concern. I have asked patient to follow-up with primary care if he continues to have similar symptoms but to return here if he develops true weakness, numbness, speech problems, vision problems, other neurologic changes. Lab Data Lab results reviewed: Yes I reviewed the patient's lab results. HPI General Mode of arrival: ambulatory . Date/Time Provider Initiated Documentation: 06/08/18 19:54 . Limitations to Documentation: no limitations . Information obtained by: patient and RN notes reviewed . HPI Narrative: Patient presents to ED with complaint of right hand spasm. It occurred while eating dinner. His hand and wrist spasmed up and he ended up with a claw hand. He was concerned that he was having a stroke and came in. He states that he was able to use the proximal part of his arm but from the forearm down he was unable to move anything. It has since resolved after a few minutes. He had no other symptoms associated with it. He has never had a previously. He has not been ill with vomiting or diarrhea. He is not on diuretics. He no longer drinks alcohol. Currently has no complaints of. Related Data Home Medications Medication Instructions Recorded Confirmed albuterol sulfate [Ventolin HFA] 1 - 2 puff INHALATION Q4H PRN #1 12/24/15 04/27/18 inhaler aspirin 81 mg PO DAILY 90 Days #90 tabec 08/13/17 06/08/18 omeprazole 40 mg capsule,delayed 40 mg PO DAILY 90 Days #90 cap 10/20/17 06/08/18 release acetaminophen 500 mg tablet 500 mg PO Q4H PRN 10/26/17 04/27/18 atorvastatin 20 mg tablet 20 mg PO DAILY 10/26/17 06/08/18 lisinopril 30 mg tablet 30 mg PO DAILY #90 tab-cap 12/17/17 06/08/18 metformin ER 500 mg 1,000 mg PO DAILY #180 tab-cap 03/22/18 06/08/18 tablet,extended release 24 hr amlodipine 2.5 mg tablet 2.5 mg PO DAILY #90 tab-cap 04/12/18 04/27/18 tizanidine 4 mg tablet 4 mg PO Q8H PRN #30 tab 04/29/18 06/08/18 cholecalciferol (vitamin D3) 2,000 2,000 unit PO DAILY #90 tab-cap 05/11/18 06/08/18 unit tablet glipizide ER 2.5 mg tablet, 2.5 mg PO DAILY #90 tab 05/11/18 06/08/18 extended release 24 hr Previous Rx's Medication Instructions Recorded aspirin 81 mg PO DAILY 90 Days #90 tabec 08/13/17 omeprazole 40 mg capsule,delayed 40 mg PO DAILY 90 Days #90 cap 10/20/17 release lisinopril 30 mg tablet 30 mg PO DAILY #90 tab-cap 12/17/17 metformin ER 500 mg 1,000 mg PO DAILY #180 tab-cap 03/22/18 tablet,extended release 24 hr amlodipine 2.5 mg tablet 2.5 mg PO DAILY #90 tab-cap 04/12/18 tizanidine 4 mg tablet 4 mg PO Q8H PRN #30 tab 04/29/18 cholecalciferol (vitamin D3) 2,000 2,000 unit PO DAILY #90 tab-cap 05/11/18 unit tablet glipizide ER 2.5 mg tablet, 2.5 mg PO DAILY #90 tab 05/11/18 extended release 24 hr Allergies Allergy/AdvReac Type Severity Reaction Status Date / Time celecoxib Allergy Intermediate Rash, Verified 06/08/18 19:44 urticaria naproxen Allergy Intermediate Itchy Welts Verified 06/08/18 19:44 prednisone AdvReac Unknown Upset Verified 06/08/18 19:44 stomach, fatigue General Stated Complaint: GenMedical JAMES: 4 Review of Systems Review of Systems As documented in HPI otherwise negative as below. Const: no fever, chills, weakness Resp: no cough, SOB, pleuritic pain CV: no CP, diaphoresis, edema, syncope GI: no abdominal pain, nausea, vomiting, diarrhea Neuro: no headache, numbness, focal weakness, confusion PFSH Medical History Obstructive sleep apnea (Chronic 03/10/16) Obesity, unspecified (Chronic 12/05/11) Mixed hyperlipidemia (Chronic 02/16/01) Gastroesophageal reflux disease without esophagitis (Chronic 12/05/11) Essential hypertension (Chronic) Chronic kidney disease (CKD), stage III (moderate) (Chronic 05/26/16) Abnormal stress test (Chronic) Diabetes mellitus type 2 in obese (Chronic 02/19/16) Tobacco use disorder (Chronic) Vitamin D deficiency (Chronic) Paresthesias (Resolved 10/27/16) Surgical History Cardiac Cath (Chronic 03/24/17) Extraction of cataract (Chronic 12/17/16) Colonoscopy - IV Sedation (Inactive 09/26/14) Cystoscopy w/ joe retrograde pyelogram (Inactive 03/01/15) Social History Smoking/Tobacco Use Status: Current every day Alcohol Intake: former Drug use: Never Substance use type: does not use Housing: apartment Number of Children: 3 What type of physical activity do you participate in: none Working smoke detector in home: No Fire extinguisher in home: No Carbon monox detector in home: No Do you feel safe in your relationship?: Yes Exam Narrative Exam Narrative: Vitals: Mildly tachycardic at triage. Const: WDWN male in NAD. HEENT: NC/AT. Normal facial exam. Eyes: Normal conjunctiva and sclera. Neck: Supple. Trachea midline. Lungs: Normal respiratory effort. Lungs are clear. Cor: RRR without murmur/gallop. Good radial pulses. Neuro: A+O x 3. Speech and gait normal. CN II-XII in tact. Strength is 5/5 throughout. Sensory in tact. Ext: No C/C/E. No deformity or tenderness. Normal ROM and functioning of hand. Skin: Warm and dry without rash. Course Vital Signs Temperature 97.9 F 06/08/18 19:41 Pulse 106 H 06/08/18 19:41 Respiratory Rate 16 06/08/18 19:41 Blood Pressure 101/84 06/08/18 19:41 Pulse Oximetry 94 L 06/08/18 19:41 Temperature 97.9 F 06/08/18 19:41 Temperature Source Skin 06/08/18 19:41 Pulse 106 H 06/08/18 19:41 Respiratory Rate 16 06/08/18 19:41 Respiratory Effort Non-Labored 06/08/18 19:45 Blood Pressure 101/84 06/08/18 19:41 Pulse Oximetry 94 L 06/08/18 19:41 Pain Level 6 06/08/18 19:41
[2018-06-08 20:36] LABS: Albumin 3.9 g/dL (3.4-5.0); Anion Gap 12.1 mmol/L (3-11); BUN 19 mg/dL (7-18); CO2 23.9 mmol/L (21.0-32.0); CREATININE 1.32 mg/dL (0.70-1.30); Calcium 8.9 mg/dL (8.5-10.1); Chloride 102 mmol/L (98-107); Estimated GFR 56.52 (mL/min/1.73m2); Glucose 135 mg/dL (70-100); Potassium 3.4 mmol/L (3.5-5.1); Sodium 138 mmol/L (136-145)
[2018-06-08] MEDS: Potassium Chloride 20 MEQ TABCR PO (21:20)
[2018-06-08 21:25] VITALS: BP 103/54; PULSE 78; RESP 18; O2SAT 96
== END 2018-06-08 21:30 | disposition home or self-care (01) ==
PROVIDERS: Emergency Provider Emergency Medicine; PCP Family Medicine
DX: R25.2 Cramp and spasm (principal); E11.22 Type 2 diabetes mellitus with diabetic chronic kidney disease; I12.9 Hypertensive chronic kidney disease with stage 1 through stage 4 chronic kidney disease, or unspecified chronic kidney disease; N18.9 Chronic kidney disease, unspecified; Z79.84 Long term (current) use of oral hypoglycemic drugs; E87.6 Hypokalemia
CPT/HCPCS: 36415; 80048; 99283; 82040; 83735

== ENCOUNTER 2018-06-14 20:58 | Outpatient (REF) | payer MEDICARE, MEDICAID, SELFPAY | END 2018-06-14 21:18 | LOC: LBN 20:58 | PROVIDERS: PCP Family Medicine; Visit Provider Family Medicine | DX: R31.29 Other microscopic hematuria (principal) | CPT/HCPCS: 87086 ==

== ENCOUNTER 2018-08-26 09:31 | Outpatient (CLI) | payer MEDICARE, MEDICAID, SELFPAY ==
[2018-08-26 09:38] LABS: Anion Gap 13.3 mmol/L (3-11); BUN 22 mg/dL (7-18); CO2 21.7 mmol/L (21.0-32.0); CREATININE 1.27 mg/dL (0.70-1.30); Calcium 8.7 mg/dL (8.5-10.1); Chloride 105 mmol/L (98-107); Estimated GFR 58.88 (mL/min/1.73m2); Glucose 109 mg/dL (70-100); Potassium 4.5 mmol/L (3.5-5.1); Sodium 140 mmol/L (136-145)
== END 2018-08-26 09:51 ==
PROVIDERS: PCP Family Medicine; Visit Provider Nurse Practitioner Family
DX: E87.6 Hypokalemia (principal); N18.3 Chronic kidney disease, stage 3 (moderate)
CPT/HCPCS: 36415; 80048

== ENCOUNTER 2018-10-30 08:45 | Emergency (ER) | payer MEDICARE, MEDICAID, SELFPAY ==
[2018-10-30 08:51] VITALS: BP 106/82; PULSE 70; RESP 20; TEMP 36.5; O2SAT 95
--- NOTE | 2018-10-30 09:08 | DI.RAD_ITS ---
SYMPTOM/DIAGNOSIS: PAIN, INJURY RIGHT HAND: There is no evidence of a fracture or dislocation. RIGHT RING FINGER: A lucency in the proximal aspect of the middle phalanx within the PIP joint could represent a nondisplaced fracture along its ulnar aspect. The fracture is not seen well on the prior hand series. There is no fracture involving the proximal phalanx of the ringer finger. Soft tissue swelling is noted. IMPRESSION: A lucency involving the proximal aspect of the middle phalanx is of questionable significance and could represent a nondisplaced fracture. This finding is not noted on the prior hand series. There is no fracture in the proximal phalanx of the ring finger.
--- NOTE | 2018-10-30 09:10 | ED.GENADUL_ITS ---
Discharge Plan Disposition Patient Disposition: HOME Discharge Details Chief Complaint: Orthopedic Clinical Impression: Sprain of finger of right hand, Closed fracture of phalanx of ring finger Primary Care Provider: Garth Marroquin ED Provider: Colton Farooq Home Meds and New Rx's Prescriptions: Continued acetaminophen [Tylenol Extra Strength] 500 mg tablet 500 mg PO Q4H PRNRF: 0 atorvastatin 20 mg tablet 20 mg PO DAILY RF: 0 lisinopril 30 mg tablet 30 mg PO DAILY Qty: 90 RF: 3 clotrimazole 1 % ointment 1 applic TP BID Qty: 56.7 RF: 0 albuterol sulfate [Ventolin HFA] 8 GM HFA aerosol inhaler 1 - 2 puff Inhalation Q4H PRN Qty: 1 RF: 1 aspirin 81 MG tablet,delayed release (DR/EC) 81 mg PO DAILY 90 Days Qty: 90 RF: 3 metformin 500 mg tablet extended release 24 hr 1,000 mg PO DAILY Qty: 180 RF: 3 amlodipine 2.5 mg tablet 2.5 mg PO DAILY Qty: 90 RF: 3 tizanidine 4 mg tablet 4 mg PO Q8H PRN (Reason: muscle spasticity) Qty: 30 RF: 0 glipizide 2.5 mg tablet extended release 24hr 2.5 mg PO DAILY Qty: 90 RF: 3 cholecalciferol (vitamin D3) [Vitamin D3] 2,000 unit tablet 2,000 unit PO DAILY Qty: 90 RF: 3 Discharge Instructions Instructions: Finger Sprain (ED) Additional Instructions: Keep fingers erin taped over the next 1 week. No use of 4th or 5th fingers until pain completely resolved. Please take acetaminophen (tylenol) - 650mg every 6 hours by mouth as needed for pain. Please contact your primary care physician to arrange follow-up. Return to the ER for any worsening or new concerning symptoms. Referrals: Garth Marroquin DO [Primary Care Provider] - Medical Decision Making 9:15 -- 53yo m with rt hand injury, tender rt 4th and 5th prox digits. Neurovasc intact. 10:15 --x-ray reviewed and interpreted by me: Concern for lucency fourth proximal phalanx. Radiology initially interpreted as negative. Will obtain additional images. 11:15 --x-ray reviewed and interpreted by radiology: IMPRESSION: 1. Lucency in the proximal aspect of the middle phalanx of the affected finger within the PIP joint may represent nondisplaced fracture. It is along the ulnar aspect. This fracture is not seen well on the prior hand series. 2. There is no fracture in the proximal phalanx of the ring finger. Patient is tender in this area and also in his proximal phalanx. Suspect subtle fracture versus sprain. Plan to have the patient follow-up with orthopedics. Erin tape was applied to immobilize fourth and fifth digits. HPI General Mode of arrival: ambulatory . Date/Time Provider Initiated Documentation: 10/30/18 08:57 . Limitations to Documentation: no limitations . Information obtained by: patient . HPI Narrative: 53-year-old male presents with chief complaint of right hand pain. Patient notes he was drilling into the frame of a motor vehicle and somehow the drill spun his hand and pulled, compressing it between the drill and frame of the vehicle. He was able to pull his hand out. This occurred about 45 minutes prior to arrival. He had pain in his hand since the accident. Pain is severe. Localized to fourth and fifth proximal digits. Pain worse with attempted movements of the digits. No associated numbness or tingling. Related Data Home Medications Medication Instructions Recorded Confirmed albuterol sulfate [Ventolin HFA] 1 - 2 puff INHALATION Q4H PRN #1 12/24/15 10/25/18 inhaler aspirin 81 mg PO DAILY 90 Days #90 tabec 08/13/17 10/30/18 acetaminophen 500 mg tablet 500 mg PO Q4H PRN 10/26/17 10/30/18 atorvastatin 20 mg tablet 20 mg PO DAILY 10/26/17 10/30/18 lisinopril 30 mg tablet 30 mg PO DAILY #90 tab-cap 12/17/17 10/30/18 metformin 500 mg tablet,extended 1,000 mg PO DAILY #180 tab-cap 03/22/18 10/30/18 release 24 hr amlodipine 2.5 mg tablet 2.5 mg PO DAILY #90 tab-cap 04/12/18 10/30/18 tizanidine 4 mg tablet 4 mg PO Q8H PRN #30 tab 04/29/18 10/25/18 cholecalciferol (vitamin D3) 2,000 2,000 unit PO DAILY #90 tab-cap 05/11/18 10/30/18 unit tablet glipizide 2.5 mg tablet, extended 2.5 mg PO DAILY #90 tab 05/11/18 10/30/18 release 24 hr clotrimazole 1 % topical ointment 1 applic TP BID #56.7 gm 09/06/18 10/25/18 Previous Rx's Medication Instructions Recorded aspirin 81 mg PO DAILY 90 Days #90 tabec 08/13/17 lisinopril 30 mg tablet 30 mg PO DAILY #90 tab-cap 12/17/17 metformin 500 mg tablet,extended 1,000 mg PO DAILY #180 tab-cap 03/22/18 release 24 hr amlodipine 2.5 mg tablet 2.5 mg PO DAILY #90 tab-cap 04/12/18 tizanidine 4 mg tablet 4 mg PO Q8H PRN #30 tab 04/29/18 cholecalciferol (vitamin D3) 2,000 2,000 unit PO DAILY #90 tab-cap 05/11/18 unit tablet glipizide 2.5 mg tablet, extended 2.5 mg PO DAILY #90 tab 05/11/18 release 24 hr clotrimazole 1 % topical ointment 1 applic TP BID #56.7 gm 09/06/18 Allergies Allergy/AdvReac Type Severity Reaction Status Date / Time celecoxib Allergy Intermediate Rash, Verified 10/30/18 09:19 urticaria naproxen Allergy Intermediate Itchy Welts Verified 10/30/18 09:19 prednisone AdvReac Unknown Upset Verified 10/30/18 09:19 stomach, fatigue General Stated Complaint: Orthopedic JAMES: 3 Review of Systems Musculoskeletal Musculoskeletal: Reports as per HPI Neurologic Neurologic: Reports as per HPI [facility] Medical History Abnormal stress test (Chronic) Chronic kidney disease (CKD), stage III (moderate) (Chronic 05/26/16) ? due to DM or to hypertension Complex regional pain syndrome (Chronic 06/27/13) Diabetes mellitus type 2 in obese (Chronic 02/19/16) presented with polyuria, elevated FS on friend's glucometer, A1c 14 at [facility] Essential hypertension (Chronic) goal <140/85 Gastroesophageal reflux disease without esophagitis (Chronic 12/05/11) ER 11/2014 rx PPI Mixed hyperlipidemia (Chronic 02/16/01) low HDL 27; SL HIGH TG; CV RISK (12/2016): 27%: rec Statin Obesity, unspecified (Chronic 12/05/11) 1993 165#; 180 gives BMI <30 Obstructive sleep apnea (Chronic 03/10/16) [id number], severe in REM sleep Sleep study PSG on 03/10/16: AHI 20.1; SPO2 shailesh 82%; CPAP begun 06/08/16. with improvement in fatigue 06/29/16 restudied higher pressures needed assoc. with treatment of central sleep apnea Paresthesias (Resolved 10/27/16) nocturnal, bilateral, R>L, Median nerve, probable CTS Sessile colonic polyp (Inactive 09/26/14) @ transverse colon, sigmoid Tobacco use disorder (Chronic) Vitamin D deficiency (Chronic) Surgical History Cardiac Cath (Chronic 03/24/17) [facility] [place] Colonoscopy - IV Sedation (Inactive 09/26/14) [facility]ri, serrated polyp, fragments of sessile serrated adenoma Cystoscopy w/ joe retrograde pyelogram (Inactive 03/01/15) Extraction of cataract (Chronic 12/17/16) Left Radha Manzo; Natividad 11/19/16 Family History Father , lung cancer at age 67. Essential hypertension Neoplasm Mother Diabetes Essential hypertension Sister No problems noted. Sister No problems noted. 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 Working smoke detector in home: No Fire extinguisher in home: No Carbon monox detector in home: No Do you feel safe at home: Yes Do you feel safe in your relationship?: Yes Exam Const Orientation: alert and awake Cardio Rate: regular rate Rhythm: regular rhythm Pulses: radial pulses present on the right Skin Trauma: no lacerations or abrasions Extrem Right upper extremity: hand Details: normal capillary refill, neuromotor exam normal, neurosensory exam normal and tenderness Location: of the 4th digit Location: at the proximal phalanx and of the 5th digit Location: at the proximal phalanx Course Vital Signs Vital signs: Vital Signs Temperature 36.5 C 10/30/18 08:51 Pulse 70 10/30/18 08:51 Respiratory Rate 20 10/30/18 08:51 Blood Pressure 106/82 10/30/18 08:51 Pulse Oximetry 95 10/30/18 08:51 Temperature 36.5 C 10/30/18 08:51 Temperature Source Temporal Artery Scan 10/30/18 08:51 Pulse 70 10/30/18 08:51 Respiratory Rate 20 10/30/18 08:51 Respiratory Effort Non-Labored 10/30/18 09:00 Blood Pressure 106/82 10/30/18 08:51 Blood Pressure Position Sitting 10/30/18 08:51 Pulse Oximetry 95 10/30/18 08:51 Oxygen Delivery Method Room Air 10/30/18 08:51 Oxygen Flow Rate 0 10/30/18 08:51 Pain Level 8 10/30/18 08:51
[2018-10-30] MEDS: Acetaminophen 325 MG TAB 650 MG PO (09:17)
--- NOTE | 2018-10-30 09:59 | DI.VRAD_ITS ---
Addendum created by Richard Ji MD on 10/30/2018 10:15:20 AM EDT Addendum: Additional images have been submitted for review. No definite fracture. There is an unusual lucency in the proximal phalanx of the ring finger. It measures 2.3 cm long and 2.5 mm wide. It is somewhat curvilinear. If this were a true fracture it should be seen on the lateral or AP view and is not seen. It is thought to represent artifact. If true fracture is suspected in proximal phalanx of the ring finger Consider isolated images of the ring finger especially with repeat images in the oblique position. Initial report created on 10/30/2018 9:57:40 AM EDT EXAM: XR Right Hand EXAM DATE/TIME: 10/30/2018 9:09 AM CLINICAL HISTORY: 53 years old, male; Injury or trauma; Injury history: Hand was trapped between truck frame and power drill; Initial encounter; Blunt trauma (contusions or hematomas; Right; Ring finger and little finger TECHNIQUE: Imaging protocol: XR Right hand. Views: 3 or more views. COMPARISON: No relevant prior studies available. FINDINGS: Bones/joints: Normal. There is no evidence of acute fracture.There is no evidence of malalignment or dislocation. Soft tissues: Normal. IMPRESSION: No acute findings. Dictated and Authenticated by: Richard Ji MD. Ordering:HILARIA Segura MD
--- NOTE | 2018-10-30 11:02 | DI.VRAD_ITS ---
EXAM: XR Right Finger(s) EXAM DATE/TIME: 10/30/2018 10:36 AM CLINICAL HISTORY: 53 years old, male; Pain; Finger(s); Right TECHNIQUE: Imaging protocol: XR Right fingers. Views: Minimum 2 views. COMPARISON: CR XR hand RT complete 10/30/2018 9:33 AM FINDINGS: Bones/joints: Lucency in the proximal aspect of the middle phalanx of the affected finger within the PIP joint may represent nondisplaced fracture. It is along the ulnar aspect. This fracture is not seen well on the prior hand series. There is no fracture in the proximal phalanx of the ring finger. Soft tissues: Soft tissue swelling of the ring finger IMPRESSION: 1. Lucency in the proximal aspect of the middle phalanx of the affected finger within the PIP joint may represent nondisplaced fracture. It is along the ulnar aspect. This fracture is not seen well on the prior hand series. 2. There is no fracture in the proximal phalanx of the ring finger. Dictated and Authenticated by: Richard Ji MD. Ordering:HILARIA Segura MD
[2018-10-30 11:36] VITALS: BP 106/82; PULSE 70; RESP 20; TEMP 36.5; O2SAT 95
== END 2018-10-30 11:35 | disposition home or self-care (01) ==
PROVIDERS: Emergency Provider Student in an Organized Health Care Education/Training Program; PCP Family Medicine
DX: S67.21XA Crushing injury of right hand, initial encounter (principal); S62.653A Nondisplaced fracture of middle phalanx of left middle finger, initial encounter for closed fracture; W23.0XXA Caught, crushed, jammed, or pinched between moving objects, initial encounter; Y99.0 Civilian activity done for income or pay; I12.9 Hypertensive chronic kidney disease with stage 1 through stage 4 chronic kidney disease, or unspecified chronic kidney disease; N18.3 Chronic kidney disease, stage 3 (moderate); E11.22 Type 2 diabetes mellitus with diabetic chronic kidney disease; Z79.84 Long term (current) use of oral hypoglycemic drugs
CPT/HCPCS: 26720; 73130; 73140

== ENCOUNTER 2018-11-09 14:50 | Outpatient (CLI) | payer MEDICARE, MEDICAID, SELFPAY ==
--- NOTE | 2018-11-09 13:11 | DI.RAD_ITS ---
EXAM: XR HAND RT LIMITED INDICATION: right hand injury. COMPARISON: XR finger RT ring from 10/30/2018 TECHNIQUE: 2D digital imaging was performed. FINDINGS: No acute or healing fracture or dislocation is identified. IMPRESSION: No acute abnormality.
== END 2018-11-09 15:10 ==
PROVIDERS: PCP Family Medicine; Referring Provider Family Medicine; Visit Provider Student in an Organized Health Care Education/Training Program
DX: S60.041A Contusion of right ring finger without damage to nail, initial encounter (principal); S60.051A Contusion of right little finger without damage to nail, initial encounter; W23.0XXA Caught, crushed, jammed, or pinched between moving objects, initial encounter; I10 Essential (primary) hypertension
CPT/HCPCS: 99203; 99214; 73120

== ENCOUNTER 2019-01-08 20:51 | Observation (INO) | payer MEDICARE, MEDICAID, SELFPAY ==
[2019-01-08] VITALS (30 sets, daily range): BP systolic 110–136; BP diastolic 52–98; PULSE 60–76; RESP 13–32; TEMP 36.6–36.7; O2SAT 94–98
[2019-01-08] MEDS: Normal Saline Flush 10 ML SYR IVP (21:05)
--- NOTE | 2019-01-08 21:17 | DI.RAD_ITS ---
EXAM: XR CHEST 2V PA LATERAL INDICATION: chest burning. COMPARISON: CT THORAX CTA from 01/08/2019 TECHNIQUE: 2D digital imaging was performed. FINDINGS: The heart is mildly enlarged. The aorta is tortuous. There is some scarring in the right middle lobe. The lungs are otherwise clear. No infiltrate, effusion or pulmonary edema is seen. There is no evid ence of pneumothorax. IMPRESSION: No acute abnormality.
[2019-01-08] MEDS: Normal Saline 250 ML 500 ML IV (21:22)
--- NOTE | 2019-01-08 21:26 | ED.GENADUL_ITS ---
Discharge Plan Disposition Patient Disposition: [facility] INPATIENT Condition: Serious Discharge Details Chief Complaint: Chest Pain Clinical Impression: Chest pain Primary Care Provider: Garth Marroquin ED Provider: Colton Farooq Home Meds and New Rx's Prescriptions: No Action acetaminophen [Tylenol Extra Strength] 500 mg tablet 500 mg PO Q4H PRNRF: 0 lisinopril 30 mg tablet 30 mg PO DAILY Qty: 90 RF: 3 aspirin 81 mg tablet,delayed release (DR/EC) 81 mg PO DAILY 90 Days Qty: 90 RF: 3 clotrimazole 1 % ointment 1 applic TP BID Qty: 56.7 RF: 0 albuterol sulfate [Ventolin HFA] 8 GM HFA aerosol inhaler 1 - 2 puff Inhalation Q4H PRN Qty: 1 RF: 1 metformin 500 mg tablet extended release 24 hr 1,000 mg PO DAILY Qty: 180 RF: 3 amlodipine 2.5 mg tablet 2.5 mg PO DAILY Qty: 90 RF: 3 cholecalciferol (vitamin D3) [Vitamin D3] 2,000 unit tablet 2,000 unit PO DAILY Qty: 90 RF: 3 atorvastatin 20 mg tablet 20 mg PO DAILY Qty: 90 RF: 3 Medical Decision Making 21:29 --53-year-old male with history of smoking, chronic kidney disease, diabetes, hyperlipidemia, hypertension, GERD, presents with anterior chest discomfort described as burning sensation. Consider ACS vs GERD vs other.. Screening ECG was reviewed and interpreted by me: Sinus rhythm 65 bpm, normal axis, low voltage in limb leads, no STEMI, nondiagnostic. We will check troponin. Patient given nitroglycerin 0.3 mg and reassessed and pain significantly improved. Patient with borderline low blood pressure. We will give normal saline 250 mL bolus and reassess. cxr pending. 22:30 --patient reassessed and remains pain-free after the single nitroglycerin sublingual. Chest x-ray reviewed and interpreted by radiology: Mild linear subsegmental atelectasis or scarring similar to the previous study. Reviewed the x-ray and I am worried about mediastinal widening although it does not seem significantly more wide than prior chest x-ray. Labs reviewed and creatinine and GFR normal. Initial troponin normal. I had a lengthy conversation with the patient about risks and benefits of CTA to assess for aortic dissection. Informed consent to proceed to CTA. 12:00 --CTA interpreted by radiology: No PE seen. Right ventricle is prominent in volume compared to the left however this is similar to the previous study. Incidental findings noted including minor apical emphysema. Minor scarring in the right middle lobe. Fatty liver. Benign-appearing renal cyst. Mild gynecomastia right greater than left. I called and spoke with Dr. Fowler who will admit the patient for chest pain. Bridging orders placed at the request of Dr. Washington. I have ordered dose of aspirin to be given here. HPI General Mode of arrival: ambulatory . Date/Time Provider Initiated Documentation: 01/08/19 21:06 . Limitations to Documentation: no limitations . Information obtained by: patient . HPI Narrative: 53yo m with history of chronic kidney disease, hypertension, hyperlipidemia, diabetes, presents with chief complaint of chest pain. Pain started around 7 PM while at rest. Pain described as a burning. Pain is localized to his anterior chest. Pain does not radiate. No modifiers. Pain is been constant since onset. He has no associated shortness of breath. No associated nausea. No leg swelling or calf pain. Pain is currently rated 7/10. Related Data Home Medications Medication Instructions Recorded Confirmed albuterol sulfate [Ventolin HFA] 1 - 2 puff INHALATION Q4H PRN #1 12/24/15 01/08/19 inhaler acetaminophen 500 mg tablet 500 mg PO Q4H PRN 10/26/17 01/08/19 lisinopril 30 mg tablet 30 mg PO DAILY #90 tab-cap 12/17/17 01/08/19 metformin 500 mg tablet,extended 1,000 mg PO DAILY #180 tab-cap 03/22/18 01/08/19 release 24 hr amlodipine 2.5 mg tablet 2.5 mg PO DAILY #90 tab-cap 04/12/18 01/08/19 cholecalciferol (vitamin D3) 2,000 2,000 unit PO DAILY #90 tab-cap 05/11/18 01/08/19 unit tablet clotrimazole 1 % topical ointment 1 applic TP BID #56.7 gm 09/06/18 01/08/19 atorvastatin 20 mg tablet 20 mg PO DAILY #90 tab 11/04/18 01/08/19 aspirin 81 mg tablet,delayed 81 mg PO DAILY 90 Days #90 tabec 01/07/19 01/08/19 release Previous Rx's Medication Instructions Recorded lisinopril 30 mg tablet 30 mg PO DAILY #90 tab-cap 12/17/17 metformin 500 mg tablet,extended 1,000 mg PO DAILY #180 tab-cap 03/22/18 release 24 hr amlodipine 2.5 mg tablet 2.5 mg PO DAILY #90 tab-cap 04/12/18 cholecalciferol (vitamin D3) 2,000 2,000 unit PO DAILY #90 tab-cap 05/11/18 unit tablet clotrimazole 1 % topical ointment 1 applic TP BID #56.7 gm 09/06/18 atorvastatin 20 mg tablet 20 mg PO DAILY #90 tab 11/04/18 aspirin 81 mg tablet,delayed 81 mg PO DAILY 90 Days #90 tabec 01/07/19 release Allergies Allergy/AdvReac Type Severity Reaction Status Date / Time celecoxib Allergy Intermediate Rash, Verified 01/08/19 22:32 urticaria naproxen Allergy Intermediate Itchy Welts Verified 01/08/19 21:08 prednisone AdvReac Unknown Upset Verified 01/08/19 21:08 stomach, fatigue General Stated Complaint: Chest Pain JAMES: 2 Review of Systems All systems reviewed & are unremarkable except as noted in HPI and below Constitutional Constitutional: Denies fever(s) Cardiovascular Cardiovascular: Reports chest pain and Denies dyspnea Respiratory Respiratory: Denies dyspnea PFSH Social History Smoking/Tobacco Use Status: Current every day Tobacco Type: cigarettes Smoking packs per day: 2 Smoking cigarettes per day: 40.0 Quit status: considering quitting Alcohol Intake: former Drug use: Never Substance use type: does not use Household members: significant other Housing: apartment Number of Children: 3 Communication Needs: None Do you need help understanding health information?: Often Current gender identity: male What is your relationship status?: living with partner Panel score (0-1 are the most socially isolated patients): 1 What type of physical activity do you participate in: none Seatbelt use: always 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 Exam Const General: cooperative and no acute distress HENMT Mouth: moist mucous membranes Eyes Conjunctivae: normal conjunctivae Sclera: normal sclerae Neck Neck: supple and no JVD Resp Auscultation: clear to auscultation bilaterally, no rales, no rhonchi and no wheezes Cardio Jugular venous pressure: no JVD Rate: regular rate and not tachycardic Rhythm: regular rhythm GI Palpation: soft, not firm, no guarding, no masses, not rigid and nontender Skin General skin exam: no rashes or lesions noted Neuro General: alert, awake and tone normal Extrem General: no calf tenderness and no edema Psych Appearance: grossly normal Mental Status: mental status grossly normal Course Vital Signs Vital signs: Vital Signs Temperature 36.6 C 01/08/19 20:52 Pulse 68 01/08/19 20:52 Respiratory Rate 22 01/08/19 20:52 Blood Pressure 112/62 01/08/19 20:52 Pulse Oximetry 97 01/08/19 20:52 Temperature 36.6 C 01/08/19 20:52 Temperature Source Skin 01/08/19 20:52 Pulse 68 01/08/19 20:52 Respiratory Rate 22 01/08/19 21:03 Respiratory Effort 01/08/19 21:07 Blood Pressure 112/62 01/08/19 20:52 Pulse Oximetry 97 01/08/19 20:52 Oxygen Delivery Method Room Air 01/08/19 20:52 Oxygen Flow Rate 0 01/08/19 20:52 Pain Level 6 01/08/19 21:21
[2019-01-08 21:35] LABS: Abs Immature Grans 0.09 k/cumm (0.0-0.09); Absolute Basophil Count 0.06 k/cumm (0.0-0.2); Absolute Eosinophil Count 0.21 k/cumm (0.0-0.7); Absolute Lymphocyte Count 2.56 k/cumm (1.2-3.4); Absolute Monocyte Count 1.05 k/cumm (0.11-0.7); Absolute Neutrophil Count 4.74 k/cumm (1.2-6.7); Basophils % 0.7; Eosinophils % 2.4; HCT 41.8 % (40.0-50.0); HGB 14.5 g/dL (13.5-17.5); Lymphocytes % 29.4; Mean Corp. HGB Concentration 34.7 g/dL (32.0-36.0); Mean Corpuscular Hemoglobin 30.9 pg (27.0-33.0); Mean Corpuscular Volume 89.1 fL (80-95); Mean Platelet Volume 10.8 fL (8.0-11.0); Monocytes % 12.1; Neutrophils % 54.4; Platelet Count 209 x1000/uL (130-400); RBC 4.69 m/cumm (4.50-6.00); RBC Distribution Width 13.6 % (11.8-14.1); White Blood Cell Count 8.71 k/cumm (4.4-10.8)
--- NOTE | 2019-01-08 21:42 | DI.VRAD_ITS ---
PROCEDURE INFORMATION: Exam: XR Chest, 2 Views Exam date and time: 01/08/2019 21:19 Age: 53 years old Clinical history: Other: Chest burning TECHNIQUE: Imaging protocol: XR of the chest Views: 2 views. COMPARISON: CR XR CHEST 2V PA LATERAL 01/14/2018 11:06 FINDINGS: Lungs: Mild linear subsegmental atelectasis or scarring similar to the previous study. No airspace consolidation. Pleural space: No pleural effusion. No pneumothorax. Heart/Mediastinum: No cardiomegaly. Vasculature: Tortuous aorta. Bones/joints: No acute fracture. IMPRESSION: Mild linear subsegmental atelectasis or scarring similar to the previous study. Dictated and Authenticated by: Lawanda Santoro MD. Ordering:HILARIA Segura MD
[2019-01-08 22:03] LABS: ALT 30 U/L (16-63); AST 13 U/L (15-37); Albumin 3.6 g/dL (3.4-5.0); Alkaline Phosphatase 88 U/L (46-116); Anion Gap 10.2 mmol/L (3-11); BUN 14 mg/dL (7-18); Bilirubin, Total 0.2 mg/dL (0.2-1.0); CO2 25.8 mmol/L (21.0-32.0); CREATININE 1.19 mg/dL (0.70-1.30); Calcium 8.5 mg/dL (8.5-10.1); Chloride 107 mmol/L (98-107); Glucose 111 mg/dL (74-106); Potassium 4.1 mmol/L (3.5-5.1); Sodium 143 mmol/L (136-145); Total Protein 6.9 g/dL (6.4-8.2)
[2019-01-08 22:05] LABS: Troponin I < 0.05 ng/Ml (<0.06)
--- NOTE | 2019-01-08 22:26 | DI.CT_ITS ---
EXAM: CT THORAX CTA CLINICAL HISTORY: chest pain TECHNIQUE: 100 cc Omnipaque [address] angiography was performed with multi-slice acquisition and multi-planar and/or 3D reconstruc tions. FINDINGS: The pulmonary arteries are well opacified with IV contrast and no emboli are identified. There is n o evidence of aortic dissection or aneurysm. No pleural or pericardial effusions are seen. There is no evidence of adenopathy. There is mild sca rring in the right middle lobe. No infiltrate is seen. There is no evidence of pneumothorax or thor acic compression fractures. Degenerative disc changes are seen. There is mild bilateral gynecomasti a. There is prominent fatty infiltration of the liver. The spleen, visualized portions of the pancr eas and adrenals are unremarkable. There are cysts in the visualized portion of the right kidney. IMPRESSION: No acute abnormality.
[2019-01-08] MEDS: Omnipaque 350 MG/ML 100 ML BTL IJ (22:52)
--- NOTE | 2019-01-08 23:26 | DI.VRAD_ITS ---
PROCEDURE INFORMATION: Exam: CT Angiography Chest With Contrast Exam date and time: 01/08/2019 22:31 Age: 53 years old Clinical history: Chest pain TECHNIQUE: Imaging protocol: Computed tomographic angiography of the chest with intravenous contrast. 3D rendering: MIP reconstructed images were created and reviewed. COMPARISON: CT Thorax^CHEST W ROUTINE (Adult) 11/06/2017 09:06 FINDINGS: Pulmonary arteries: No pulmonary emboli. Aorta: No aortic aneurysm. No aortic dissection. Lungs: Minor apical emphysema. Minor scarring in the right middle lobe. No airspace consolidation. No suspicious pulmonary nodules or mass lesions. Pleural space: No pneumothorax. No pleural effusion. Heart: The right ventricle is prominent in volume compared to the left however this is similar to the previous study. Liver: The visualized liver is fatty. Kidneys and ureters: Benign-appearing renal cysts are again seen. Lymph nodes: No enlarged lymph nodes. Bones/joints: No acute fracture. Soft tissues: Mild gynecomastia right greater than left appear similar. IMPRESSION: 1. No pulmonary emboli are seen. 2. The right ventricle is prominent in volume compared to the left however this is similar to the previous study. 3. Incidental findings as described. Dictated and Authenticated by: Lawanda Santoro MD. Ordering:HILARIA Segura MD
[2019-01-09] VITALS (16 sets, daily range): BP systolic 118–140; BP diastolic 65–87; PULSE 55–73; RESP 15–26; TEMP 36.5–36.9; O2SAT 93–98
--- NOTE | 2019-01-09 00:08 | HPE_ITS ---
Date of service: 01/09/19 Time of Service: 00:08 Assessment and Plan Assessment and plan (1) Chest pain: Status: Acute Assessment and plan: We will admit the patient on observation status to the medical/surgical floor on telemetry. We will continue to check serial troponin levels. We will schedule him for a stress Lexiscan and echocardiogram for Thursday morning. We will check his lipid profile and adjust his atorvastatin accordingly. Continue aspirin 81 mg daily along with his amlodipine 2.5 mg daily and lisinopril 30 mill grams daily. Consider addition of a beta-ann. If all of his troponin levels are normal then we will proceed with nuclear stress MPI. Qualifiers: Chest pain type: unspecified Qualified Code(s): R07.9 - Chest pain, unspecified (2) Essential hypertension: Status: Chronic Assessment and plan: Continue current dose of amlodipine and lisinopril. If blood pressure becomes a problem consider addition of a beta-ann (3) Gastroesophageal reflux disease without esophagitis: Status: Chronic Assessment and plan: Continue omeprazole. (4) Obstructive sleep apnea: Status: Chronic (5) Diabetes mellitus type 2 in obese: Status: Chronic Assessment and plan: Monitor blood sugars before meals and at bedtime and cover with sliding scale sensitive level of insulin. Hold his metformin since the patient underwent a CTA of his chest. History of Present Illness History of Present Illness Chief Complaint: chest pain Narrative: 53-year-old male with a past medical history of type 2 diabetes mellitus currently well controlled with an A1c of 5.7%. Recently taken off of his glipizide. He also has essential hypertension, hyperlipidemia, GERD, chronic kidney disease, obstructive sleep apnea for which he wears a CPAP mask. Patient presents emergency department with acute onset of substernal chest burning that began around 7:00 this evening while getting ready for bed. His chest burning was completely relieved with a single sublingual nitroglycerin tablet. Work-up in the emergency department was completed by Dr. Colton Farooq including an EKG that showed normal sinus rhythm at a rate 65 bpm with no ischemic changes initial troponin was less than 0.05 and a repeat level has since returned at less than 0.05. Chest x-ray was read by Dr. Toledo as possible enlarged mediastinum official reading showed mild linear subsegmental atelectasis or scarring but otherwise no airspace consolidation no pleural effusions and no cardiomegaly. He does have a tortuous aorta. Subsequent thoracic CTA was performed and showed no pulmonary emboli he has some right ventricular prominence and volume compared to the left no aortic aneurysm or dissection. He has some minor apical emphysema and minor scarring in the right middle lobe but no airspace consoli dation. No pleural effusions. He has some fatty liver changes and benign- appearing renal cysts. Patient is being admitted to medical/surgical floor on telemetry for further evaluation of his chest pain including serial troponin levels as well as scheduling for an echocardiogram and stress test for Thursday morning. Cardiac risk factors including 2 pack-a-day smoker morbid obesity diabetes mellitus type 2 hypertension hyperlipidemia as well as a family history of coronary artery disease. Review of Systems All systems reviewed & are unremarkable except as noted in HPI and below Cardiovascular Cardiovascular: Reports chest pain at rest, Denies chest pain with activity, Denies diaphoresis, Denies pedal edema, Denies edema, Denies radiating jaw, neck or arm pain, Denies palpitations, Denies dyspnea and Denies dyspnea on exertion Respiratory Respiratory: Reports as per HPI, Denies dyspnea and Denies dyspnea on exertion Gastrointestinal Gastrointestinal: Denies abdominal pain, Denies belching, Denies bloating, Denies nausea and Denies vomiting Endocrine Endocrine: Denies palpitations [facility] Medical History Abnormal stress test (Chronic) Chronic kidney disease (CKD), stage III (moderate) (Chronic 05/26/16) ? due to DM or to hypertension Complex regional pain syndrome (Chronic 06/27/13) Diabetes mellitus type 2 in obese (Chronic 02/19/16) presented with polyuria, elevated FS on friend's glucometer, A1c 14 at [facility] ER Essential hypertension (Chronic) goal <140/85 Gastroesophageal reflux disease without esophagitis (Chronic 12/05/11) ER 11/2014 rx PPI Mixed hyperlipidemia (Chronic 02/16/01) low HDL 27; SL HIGH TG; CV RISK (12/2016): 27%: rec Statin Obesity, unspecified (Chronic 12/05/11) 1993 165#; 180 gives BMI <30 Obstructive sleep apnea (Chronic 03/10/16) [id number], severe in REM sleep Sleep study PSG on 03/10/16: AHI 20.1; SPO2 shialesh 82%; CPAP begun 06/08/16. with improvement in fatigue 06/29/16 restudied higher pressures needed assoc. with treatment of central sleep apnea Paresthesias (Resolved 10/27/16) nocturnal, bilateral, R>L, Median nerve, probable CTS Sessile colonic polyp (Inactive 09/26/14) @ transverse colon, sigmoid Tobacco use disorder (Chronic) Vitamin D deficiency (Chronic) Surgical History Cardiac Cath (Chronic 03/24/17) [facility] [place] Colonoscopy - IV Sedation (Inactive 09/26/14) [facility] Perri, serrated polyp, fragments of sessile serrated adenoma Cystoscopy w/ joe retrograde pyelogram (Inactive 03/01/15) Extraction of cataract (Chronic 12/17/16) Left Radha Manzo; Natividad 11/19/16 Family History Father , lung cancer at age 67. Essential hypertension Neoplasm Mother Diabetes Essential hypertension Sister No problems noted. Sister No problems noted. Social History Smoking/Tobacco Use Status: Current every day Tobacco Type: cigarettes Smoking packs per day: 2 Smoking cigarettes per day: 40.0 Quit status: considering quitting Alcohol Intake: former Drug use: Never Substance use type: does not use Household members: significant other Housing: apartment Number of Children: 3 Communication Needs: None Do you need help understanding health information?: Often Current gender identity: male What is your relationship status?: living with partner Panel score (0-1 are the most socially isolated patients): 1 What type of physical activity do you participate in: none Seatbelt use: always Drive intox or ride w/intox seasonal 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: No Working smoke detector in home: No Fire extinguisher in home: No Carbon monox detector in home: No Do you feel safe at home: Yes Do you feel safe in your relationship?: Yes Meds Home Medications and Allergies Home Medications Medication Instructions Recorded Confirmed Type albuterol sulfate [Ventolin HFA] 1 - 2 puff INHALATION Q4H PRN #1 12/24/15 01/08/19 History inhaler acetaminophen 500 mg tablet 500 mg PO Q4H PRN 10/26/17 01/08/19 History lisinopril 30 mg tablet 30 mg PO DAILY #90 tab-cap 12/17/17 01/08/19 Rx metformin 500 mg tablet,extended 1,000 mg PO DAILY #180 tab-cap 03/22/18 01/08/19 Rx release 24 hr amlodipine 2.5 mg tablet 2.5 mg PO DAILY #90 tab-cap 04/12/18 01/08/19 Rx cholecalciferol (vitamin D3) 2,000 2,000 unit PO DAILY #90 tab-cap 05/11/1812/18 Rx unit tablet clotrimazole 1 % topical ointment 1 applic TP BID #56.7 gm 09/06/18 01/08/19 Rx atorvastatin 20 mg tablet 20 mg PO DAILY #90 tab 11/04/18 01/08/19 Rx aspirin 81 mg tablet,delayed 81 mg PO DAILY 90 Days #90 tabec 01/07/19 01/08/19 Rx release Allergies Allergy/AdvReac Type Severity Reaction Status Date / Time celecoxib Allergy Intermediate Rash, Verified 01/08/19 22:32 urticaria naproxen Allergy Intermediate Itchy Welts Verified 01/08/19 21:08 prednisone AdvReac Unknown Upset Verified 01/08/19 21:08 stomach, fatigue Exam Narrative Exam Narrative: Morbidly obese male lying on a stretcher in the emergency department in no acute distress. He is alert and oriented person place time circumstance. He has a plethoric appearance to his face. Otherwise HEENT is unremarkable Neck is obese soft and nontender without cervical lymphadenopathy no JVD normal carotid pulses no bruits Lungs are clear to auscultation without wheeze rales or rhonchi Heart is regular rate and rhythm without murmur rub or gallop Abdomen is obese and protuberant but soft and nontender with no bruits or palpable masses nor any appreciable organomegaly Lower extremities reveal normal hair pattern over his feet normal pedal pulses with significant thickening of his toenails. He has normal pedal pulses. No calf tenderness or swelling Neurologic exam is grossly intact Genitalia rectal exam deferred Results Imaging Chest x-ray: report reviewed CT scan - chest: report reviewed EKG: image reviewed Labs Result diagrams: 01/08/19 21:05 01/08/19 21:05 Labs: Laboratory Results - last 24 hr 01/08/19 01/08/19 21:05 21:05 WBC 8.71 RBC 4.69 Hgb 14.5 Hct 41.8 MCV 89.1 MCH 30.9 MCHC 34.7 RDW 13.6 Plt Count 209 MPV 10.8 Immature Gran % 1.0 Neutrophils % 54.4 Lymphocytes % 29.4 Monocytes % 12.1 Eosinophils % 2.4 Basophils % 0.7 Absolute Neutrophils 4.74 Absolute Lymphocytes 2.56 Absolute Monocytes 1.05 H Absolute Eosinophils 0.21 Absolute Basophils 0.06 Sodium 143 Potassium 4.1 Chloride 107 Carbon Dioxide 25.8 Anion Gap 10.2 BUN 14 Creatinine 1.19 Estimated GFR/1.73 m2 >= 60.00 Glucose 111 H Calcium 8.5 Total Bilirubin 0.2 AST 13 L ALT 30 Alkaline Phosphatase 88 Troponin I < 0.05 Total Protein 6.9 Albumin 3.6 Last Vital Signs Temp 36.7 C 01/08/19 23:16 Pulse 65 01/08/19 23:16 Resp 22 01/08/19 23:16 BP 118/56 L 01/08/19 23:16 Pulse Ox 96 01/08/19 23:16
[2019-01-09] MEDS: Aspirin 325 MG TAB PO (00:58)
[2019-01-09 01:10] LABS: Troponin I < 0.05 ng/Ml (<0.06)
[2019-01-09 07:38] LABS: Platelet Count 215 x1000/uL (130-400)
[2019-01-09 07:53] LABS: Calculated LDL 76 mg/dL; Cholesterol 154 mg/dL (<200); HDL Cholesterol 24 mg/dL (40-60); Triglyceride 273 mg/dL (<150)
[2019-01-09 07:55] LABS: Troponin I < 0.05 ng/Ml (<0.06)
[2019-01-09] MEDS: Atorvastatin 20 MG TAB PO (08:31)
[2019-01-09] MEDS: Cholecalciferol (Vitamin D3) 1,000 UNIT TAB 2000 UNITS PO (08:31)
[2019-01-09] MEDS: amLODIPine 2.5 MG TAB PO (08:31)
[2019-01-09] MEDS: Aspirin E.C. 81 MG TABEC PO (08:32)
[2019-01-09] MEDS: Lisinopril 10 MG TAB 30 MG PO (08:32)
[2019-01-09] MEDS: Enoxaparin 40 MG/0.4 ML SYR SC (08:34)
--- NOTE | 2019-01-09 10:05 | PHARADMIT ---
Admission Pharmacy Clinical Review CHEST PAIN Code Status Full Code Current Weight 104.4 kg Renally Cleared and Narrow Therapeutic Index Meds CRCL ~63ML/MIN QTc Value / Action Taken 401 BP Control, Fever 120/70 AFEBRILE Electrolytes reviewed OK DVT Prophylaxis ENOXAPARIN Opiate Usage / Scheduled Bowel Regimen Ordered NO/PRN Plt/SCr for Heparin / Enoxaparin 215/1.19 INR for Warfarin NA H/H stable, WBC/Bands 14.5/41.8 WBC 8.71 Antibiotic appropriateness NA Cultures and Sensitivities NA Surgical ABX d/c within 24 hr NA DM control / Insulin Dosing FS 108, INSULIN ASPART SS Heart Failure (Check EF%) (DAPHNIE's, B-Block, Diuretics) NA IV to PO Switch Home Meds Reviewed OK Home Meds Not Ordered albuterol sulfate [Ventolin HFA] 1 - 2 puff INHALATION Q4H PRN metformin 500 mg tablet,extended release 24 hr 1,000 mg PO DAILY Comments STRESS TEST TOMORROW
--- NOTE | 2019-01-09 12:30 | W.PM.PROGNOT ---
Date of Service Date of service: 01/09/19 Time of Service: 12:30 Subjective Subjective Interval history since last seen: Doing well. No symptoms at this time. Stress for tomorrow. Objective Objective Clinical Data: Abnormal lab results 01/08/19 01/08/19 01/09/19 Range/Units 21:05 21:05 07:26 Absolute Monocytes 1.05 H (0.11-0.7) k/cumm Glucose 111 H (74-106) mg/dL AST 13 L (15-37) U/L HDL Cholesterol 24 L (40-60) mg/dL Vital Signs Temperature 36.9 C 01/09/19 11:08 Temperature Source Skin 01/09/19 11:08 Pulse 58 L 01/09/19 11:08 Pulse Rhythm Regular 01/09/19 08:44 Pulse 69 01/09/19 00:16 Respiratory Rate 18 01/09/19 11:08 Respiratory Effort 01/09/19 08:44 Respiratory Depth Normal 01/09/19 08:44 Respiratory Pattern Normal 01/09/19 08:44 Blood Pressure 118/73 01/09/19 11:08 Blood Pressure Mean 81 01/09/19 00:16 Pulse Oximetry 96 01/09/19 11:08 Oxygen Delivery Method Room Air 01/09/19 11:08 Oxygen Flow Rate 0 01/09/19 11:08 Pain Level 0 01/09/19 08:44 Intake & Output 01/08/19 01/09/19 01/09/19 23:59 11:59 23:59 Intake Total 250 / 250 200 / 200 Output Total 250 / 250 Balance 250 / 250 -50 / -50 Weight 105.2 kg 104.4 kg Intake: IV 250 / 250 Oral 200 / 200 Output: Urine 250 / 250 Other: Urine Color Yellow Urine Appearance Clear Urine Odor None Voiding Methods Urinal Laboratory Results WBC 8.71 k/cumm (4.4-10.8) 01/08/19 21:05 RBC 4.69 m/cumm (4.50-6.00) 01/08/19 21:05 Hgb 14.5 g/dL (13.5-17.5) 01/08/19 21:05 Hct 41.8 % (40.0-50.0) 01/08/19 21:05 MCV 89.1 fL (80-95) 01/08/19 21:05 MCH 30.9 pg (27.0-33.0) 01/08/19 21:05 MCHC 34.7 g/dL (32.0-36.0) 01/08/19 21:05 RDW 13.6 % (11.8-14.1) 01/08/19 21:05 Plt Count 215 x1000/uL (130-400) 01/09/19 07:26 MPV 10.8 fL (8.0-11.0) 01/08/19 21:05 Immature Gran % 1.0 01/08/19 21:05 Neutrophils % 54.4 01/08/19 21:05 Lymphocytes % 29.4 01/08/19 21:05 Monocytes % 12.1 01/08/19 21:05 Eosinophils % 2.4 01/08/19 21:05 Basophils % 0.7 01/08/19 21:05 Absolute Neutrophils 4.74 k/cumm (1.2-6.7) 01/08/19 21:05 Absolute Lymphocytes 2.56 k/cumm (1.2-3.4) 01/08/19 21:05 Absolute Monocytes 1.05 k/cumm (0.11-0.7) H 01/08/19 21:05 Absolute Eosinophils 0.21 k/cumm (0.0-0.7) 01/08/19 21:05 Absolute Basophils 0.06 k/cumm (0.0-0.2) 01/08/19 21:05 Sodium 143 mmol/L (136-145) 01/08/19 21:05 Potassium 4.1 mmol/L (3.5-5.1) 01/08/19 21:05 Chloride 107 mmol/L (98-107) 01/08/19 21:05 Carbon Dioxide 25.8 mmol/L (21.0-32.0) 01/08/19 21:05 Anion Gap 10.2 mmol/L (3-11) 01/08/19 21:05 BUN 14 mg/dL (7-18) 01/08/19 21:05 Creatinine 1.19 mg/dL (0.70-1.30) 01/08/19 21:05 Estimated GFR/1.73 m2 >= 60.00 (mL/min/1.73m2) 01/08/19 21:05 Glucose 111 mg/dL (74-106) H 01/08/19 21:05 Hemoglobin A1c Cancelled 01/09/19 05:35 Calcium 8.5 mg/dL (8.5-10.1) 01/08/19 21:05 Total Bilirubin 0.2 mg/dL (0.2-1.0) 01/08/19 21:05 AST 13 U/L (15-37) L 01/08/19 21:05 ALT 30 U/L (16-63) 01/08/19 21:05 Alkaline Phosphatase 88 U/L (46-116) 01/08/19 21:05 Troponin I < 0.05 ng/Ml (<0.06) 01/09/19 07:26 Total Protein 6.9 g/dL (6.4-8.2) 01/08/19 21:05 Albumin 3.6 g/dL (3.4-5.0) 01/08/19 21:05 Triglycerides 273 mg/dL (<150) 01/09/19 07:26 Total Cholesterol 154 mg/dL (<200) 01/09/19 07:26 LDL Cholesterol, Calc 76 mg/dL 01/09/19 07:26 HDL Cholesterol 24 mg/dL (40-60) L 01/09/19 07:26
[2019-01-09 14:40] LABS: Troponin I < 0.05 ng/Ml (<0.06)
--- NOTE | 2019-01-09 17:50 | INITIAL_ITS ---
- If Service Date Differs Date of service: 01/09/19 Time of Service: 17:50 Care Management Initial Assess REASON FOR HOSPITALIZATION:: Chest Pain PAST MEDICAL HISTORY/PAST SURGICAL HISTORY:: Medical History. Abnormal stress test (Chronic). Chronic kidney disease (CKD), stage III (moderate) (Chronic 05/26/16). ? due to DM or to hypertension. Complex regional pain syndrome (Chronic 06/27/13). Diabetes mellitus type 2 in obese (Chronic 02/19/16). pres ented with polyuria, elevated FS on friend's glucometer, A1c 14 at [facility] ER. Essential hypertension (Chronic). goal <140/85. Gastroesophageal reflux disease without esophagitis (Chronic 12/05/11). ER 11/2014 rx PPI. Mixed hyperlipidemia (Chronic 02/16/01). low HDL 27; SL HIGH TG; CV RISK (12/2016): 27%: rec Statin. Obesity, unspecified (Chronic 12/05/11). 1993 165#; 180 gives BMI <30. Obstructive sleep apnea (Chronic 03/10/16). [id number], severe in REM sleep. Sleep study PSG on 03/10/16: AHI 20.1; SPO2 shailesh 82%; CPAP begun 06/08/16. with improvement in fatigue. 06/29/16 restudied higher pressures needed assoc. with treatment of central sleep apnea. Paresthesias (Resolved 10/27/16). nocturnal, bilateral, R>L, Median nerve, probable CTS. Sessile colonic polyp (Inactive 09/26/14). @ transverse colon, sigmoid. Tobacco use disorder (Chronic). Vitamin D deficiency (Chronic). Surgical History. [place] 03[place]24/17[place] [facility] [place] - [place]ation (Inactive 09/26/14). [facility] Perri, serrated polyp, fragments of sessile serrated adenoma. Cystoscopy w/ joe retrograde pyelogram (Inactive 03/01/15). Extraction of cataract (Chronic 12/17/16). Left Radha Manzo; R 11/19/16 PREVIOUS FUNCTIONAL STATUS/SOCIAL/FAMILY SUPPORTS:: Pavan is a [age] year old gentleman who resides in [place], [place] with his former ; Naty Del Rio. 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 He reports no biological children of his own though shares he has step children and a grandchild with his former , Naty. Naty works from the home and is a primary support. Pavan is current not employed. Pavan shares the two help eachother with ADLs, as he is the only one with a valid license in the household. CURRENT FUNCTIONAL STATUS:: Mansoor was sitting up in his bed when CM met with him. He was pleasant and engaged in conversation. He spoke about his past adventures and showed CM a picture of his grand daughter. He reported that he still smokes and would like help with quitting. CM will provide information and resources for smoking cessation. CM will continue to follow. ADVANCE DIRECTIVES:: None on file Has patient been provided with information about the portal?: No Did the patient sign up for the portal?: No CODE STATUS:: Full Code INSURANCE COVERAGE / FINANCIAL ISSUES:: [facility] CURRENT HOME/COMMUNITY SERVICES/EQUIPMENT:: Disability supports, CPAP PRIMARY CARE PHYSICIAN:: Garth Marroquin DO: ULISES POTENTIAL DISCHARGE NEEDS:: Evaluations for further needs, follow up appointments PATIENT/FAMILY EDUCATION NEEDS:: Review discharge instructions ANTICIPATED BARRIERS TO DISCHARGE:: None identified TRANSPORTATION:: Anticipate Naty will drive him home via private vehicle. PLAN:: Anticipate Pavan will return home with no additional services once medically cleared. He will follow up with his PCP, as recommended. CM will continue to follow.
[2019-01-10 03:32] VITALS: BP 116/74; PULSE 59; RESP 19; TEMP 36.5; O2SAT 97
[2019-01-10 07:00] VITALS: PULSE 61
[2019-01-10 07:10] VITALS: BP 118/82; PULSE 59; RESP 18; TEMP 36.7; O2SAT 95
--- NOTE | 2019-01-10 07:30 | DI.US_ITS ---
APPROVED REPORT EXAM: Comprehensive 2D, Doppler, and color-flow Echocardiogram Patient Location: In-Patient Toll [employer]airer Central Office: Mechelle Alcantara [facility] [place] ([place]) Rhythm: Bradycardia Indications: chest pain Conclusion This is a technically limited study Left Ventricle : The left ventricle is normal size. Left ventricular systolic function is normal. Th e posterior wall thickness is mildly increased. The septal thickness is mildly increased. There is no rmal LV segmental wall motion. LVEF is estimated to be 60-65%. Diastolic function is indeterminate. Right Ventricle : The right ventricle appears normal size. The right ventricular systolic function is normal. Atria : The left atrium size is normal. The right atrium size is normal. Aortic Valve : Aortic valve is probably trileaflet, and opens well. No aortic regurgitation is presen t. There is no aortic valvular stenosis. Mitral Valve : Systolic anterior motion of the mitral chordae is present, otherwise normal. Trivial m itral regurgitation. No evidence of mitral valve stenosis. Tricuspid Valve : The tricuspid valve is normal in structure. Trivial tricuspid regurgitation. Great Vessels : Aortic root is mildly dilated. The ascending aorta size is mildly dilated (3.49cm). The IVC appears small in caliber, and appears to collapse >50% with inspiration. Estimated RVSP is 3 4-37 mmHg. Compared to echocardiogram dated 06/14/2014 there is no significant change. Wall motion Left Ventricle The left ventricle is normal size. Left ventricular systolic function is normal. The posterior wall t hickness is mildly increased. The septal thickness is mildly increased. There is normal LV segmental wall motion. Diastolic function is indeterminate. LVEF is estimated to be 60-65%. Right Ventricle The right ventricle appears normal size. The right ventricular systolic function is normal. Atria The left atrium size is normal. The right atrium size is normal. Aortic Valve Aortic valve is probably trileaflet, and opens well. There is no aortic valvular stenosis. No aortic regurgitation is present. Mitral Valve Systolic anterior motion of the mitral chordae is present, otherwise normal. No evidence of mitral va lve stenosis. Trivial mitral regurgitation. Tricuspid Valve The tricuspid valve is normal in structure. Trivial tricuspid regurgitation. Pulmonic Valve The pulmonary valve is normal in structure. Trace pulmonic regurgitation. Great Vessels Aortic root is mildly dilated. The ascending aorta size is mildly dilated (3.49cm). The IVC appears s mall in caliber, and appears to collapse >50% with inspiration. Estimated RVSP is 34-37 mmHg. Pericardium Prominent anterior epicardial fat pad is present. 2D Dimensions IVSd 1.30 cm M: 0.6-1.2 LV EDV A2C 72.20 mL PWd 1.15 cm M: 0.6 - 1.2 LV EDV A4C 114.20 mL LVDd 4.80 cm M: 4.2 - 5.8 LA Volume Index A2C 16.52 mL/m2 LVDs 2.90 cm M: 2.5 - 4.0 LA Volume Index A4C 25.77 mL/m2 Aortic Root 3.60 cm M: 3.1 - 3.7 LA Volume Index Biplane 21.50 mL/m2 RA Area A4C 14.16 cm2 LA Area A4C 18.66 cm2 LVOT 2.00 cm (M/F) 1.5-2.5 LA Area A2C 14.34 cm2 Ascending Aorta 3.49 cm M: 2.6 - 3.4 EF AP4 64.54 % LVEF (Teich) 69.44 % EF AP2 70.08 % LVEF (Huizar's) 66.29 % M: 52 - 72 EF BP 66.29 % LV Volume 67.36 mL M: 62 - 150 LV Volume Index 31.77 mL/m2 M: 34 - 74 FS 39.10 % LV Diastology E/A Ratio 0.8 MED E' 0.06 (>0.07 m/s) LV E/e MED 11.40 (<14) LAT E' 0.09 (>0.1 m/s) LV E/e LAT 7.75 (<14) Aortic Valve LVOT Area 3.27 cm2 LVOT Peak Rodríguez. 1.15 m/s LVOT Mean Rodríguez. 0.69 m/s LVOT Peak Gr. 5.55 mmHg LAUREN Vmax Index 1.47 cm2/m2 LVOT Mean Gr. 2.30 mmHg LVOT VTI 0.25 m LAUREN Mean Rodríguez. Index 1.14 cm2/m2 AoV Peak Rodríguez. 1.24 (0.5-1.3 m/s) AoV Mean Rodríguez. 0.93 m/s AO Peak GR. 6.14 mmHg AO Mean GR. 3.65 (<5 mmHg) VTI Ratio 0.94 LAUREN (VTI) 3.08 (2.5-4.5 cm2) LAUREN (VTI) Index 1.45 cm/m2 Mitral Valve MV E Max Rodríguez. 0.73 (0.4-1.3 m/s) MV A Velocity 0.95 (0.4-1.3 m/s) E/A Ratio 0.76 MV Decel. Time 305.65 (160-240 msec) MV PHT 88.65 msec MVA PHT 2.45 cm2 Tricuspid Valve TR P. Velocity 2.93 m/s TV Regurg Vmax 2.93 m/s RAP Estimate 3.00 mmHg RVSP 37.00 mmHg TR P. Gradient 34.40 mmHg
[2019-01-10] MEDS: Atorvastatin 20 MG TAB PO (08:56)
[2019-01-10] MEDS: Enoxaparin 40 MG/0.4 ML SYR SC (08:56)
[2019-01-10] MEDS: Cholecalciferol (Vitamin D3) 1,000 UNIT TAB 2000 UNITS PO (08:56)
[2019-01-10] MEDS: Aspirin E.C. 81 MG TABEC PO (08:56)
[2019-01-10] MEDS: Lisinopril 10 MG TAB 30 MG PO (08:56)
[2019-01-10] MEDS: Normal Saline Flush 10 ML SYR IVP (08:57)
--- NOTE | 2019-01-10 11:15 | DI.NM_ITS ---
APPROVED REPORT Exam: Exercise Treadmill Patient Location: In-Patient Room/Bed: [address] [place] [address] Nurse: Samantha Jacques RN BMI: 37.11 Indications: Chest Pain, Dyspnea Medical History Medical History: CAD non obstructive, HTN, Hyperlipidemia, Obesity , Obstructive sleep apnea, Smoking , SOB Cardiac Medications: Amlodipine, Atorvastatin/ Lipitor, Lisinopril Allergies: celecoxib, naproxen, prednisone Cardiac Risk Factors: HTN, Hyperlipidemia, FHX of CAD, Smoking, SOB, CVD Previous Cardiac Procedures: [facility] Pretest Chest Pain Characteristics: No chest pain Exercise History: Sedentary Lung Sounds: Clear to auscultation, diminished Heart Sounds: Regular Stress Test Details Test: Exercise stress testing was performed using a Fantasma protocol. Nuclear Acquisition: Rest Tc-99m/Stress Tc-99m 1 day Rest Isotope: Tc-99m Sestamibi. Dose: 12.0 Date: 01/10/2019 Injection Time: 1115 Stress Isotope: Tc-99m Sestamibi. Dose: 37.0 Date: 01/10/2019 Injection Time: 1245 HR Resting HR: 62 bpm Max Heart Rate (APMHR): 165 bpm Resting HR Supine: 62 bpm Target HR (85% APMHR): 140 bpm Resting HR Standin bpm Max HR Achieved: 152 bpm % of APMHR: 92 Recovery HR: 82 bpm HR response to stress: Accelerated HR response to stress BP Resting BP: 132/94 mmHg Resting BP Supine: 132/94 mmHg Resting BP Standin/92 mmHg Max BP: 168/98 mmHg Recovery BP: 142/80 mmHg BP response to stress: Normal blood pressure response to stress. ECG Resting ECG: Sinus Rhythm Stress ECG: Sinus Tachycardia ST Change: Normal Arrhythmia: None Recovery ECG: Sinus Rhythm Recovery ST Change: Normal Recovery Arrhythmia: VPC Clinical Time of Stop for Fantasma: 3:00 Reason for Termination: Target HR Achieved, Dyspnea Stress Symptoms: Dyspnea Exercise duration: 3 min00 sec Highest Stage Achieved: Stage 1: 1.7 mph at 10% grade. Exercise capacity: 4.64 METs Functional Capacity: Markedly diminished capacity Scale: Sedentary Stress ECG Conclusion 1. Patient exercised for 3 minutes (4.64 METS). This is a markedly diminished exercise capacity for age group. 2. There is no evidence of ischemia on ECG portion of this exam Protocol Used: Fantasma Protocol Stress Test Summary STAGE Time (mins) Speed (mph) Grade (%) HR BP SYMPTOMS METS Supine 62 132/94 Standing 73 140/92 99% 1 3 1.7 10 150 168/98 88% 4.6 2 6 2.5 12 7 3 9 3.4 14 10.2 4 12 4.2 16 12.9 5 15 5.0 18 17.2 1 min recovery 136 162/64 3 min recovery 79 152/88 6 min recovery 82 142/80 MPI Conclusion There is no evidence of ischemia on the imaging portion of the stress test Ejection fraction with stress is 45% This represents a normal SPECT imaging study
--- NOTE | 2019-01-10 14:44 | CHAPLAIN ---
Pavan was having lunch when I visited. He said he'd had test this morning that included a stress test on the treadmill, so he was tired and had missed lunch until now. He has family who will be visiting later, after work, and he hopes to rests until then. I will check in again with Pavan.
--- NOTE | 2019-01-10 15:21 | W.PM.DS.N ---
Date of service: 01/10/19 Time of Service: 15:21 DS: Diagnosis Discharge Diagnosis (1) Chest pain: Status: Acute (2) Essential hypertension: Status: Chronic (3) Gastroesophageal reflux disease without esophagitis: Status: Chronic (4) Obstructive sleep apnea: Status: Chronic (5) Diabetes mellitus type 2 in obese: Status: Chronic Discharge Plan Disposition Patient Disposition: HOME Condition: Improving Discharge Details Chief Complaint: Chest Pain Clinical Impression: Chest pain Reason For Visit: CHEST PAIN Admit Date/Time: 01/09/19 00:00 Admit Provider: Manpreet Washington Attending Provider: Manpreet Washington Primary Care Provider: Garth Marroquin ED Provider: Colton Farooq Hospital Course Hospital Course: Mr. brennan is a 53-year-old male with a past medical history significant for type 2 diabetes, hypertension, hyperlipidemia, GERD, chronic kidney disease, obstructive sleep apnea for which he wears a CPAP who presented to the emergency department on 01/08/2019 with reports of acute onset of substernal chest burning that began around 1900 that night while getting ready for bed. The discomfort was relieved with a single sublingual nitroglycerin tablet. In the emergency department, he had an EKG that showed normal sinus rhythm at a rate of 65 bpm with no ischemic changes. His troponins were trended and found to be less than 0.05. He had a chest x-ray in the ER as well, which showed no acute abnormality. He also had a thoracic aorta CT which showed no acute abnormality. His labs were unremarkable. He was admitted to the [facility] floor to be ruled out for acute coronary syndrome and for echocardiogram and stress MPI. He was monitored on telemetry and found to be in normal sinus rhythm with rates in the 50s to 60s. He had no further episodes of chest pain during his entire hospitalization. On the day of discharge, he had an echocardiogram which showed left ventricular systolic function was normal, ventricle size normal, the posterior wall thickness was mildly increased, the septal thickness was mildly increased, LVEF was 60 to 65%, diastolic function was indeterminate. Right ventricular systolic function was normal. Atrium size was normal. No aortic valvular stenosis, no aortic regurgitation. Trivial mitral regurgitation noted. No evidence of mitral valve stenosis. There was trivial tricuspid regurgitation. The aortic root was mildly dilated, and ascending aorta was dilated to 3.49 cm. There was no evidence of ischemia on the imaging portion of his stress MPI. His ejection fraction wtih stress was 45%. The Stress MPI was concluded to be normal. His blood glucose was well controlled while he was in the hospital. His most recent Hgb A1c was 5.7, indicating good control of his diabetes. Mr. Brennan is discharged home today. He will increase his PPI dosing from one tablet daily to BID dosing. He will follow up with his PCP as scheduled. Home Meds and New Rx's Prescriptions: New omeprazole 20 mg capsule,delayed release(DR/EC) 20 mg PO BID Qty: 60 RF: 0 Continued acetaminophen [Tylenol Extra Strength] 500 mg tablet 500 mg PO Q4H PRNRF: 0 lisinopril 30 mg tablet 30 mg PO DAILY Qty: 90 RF: 3 aspirin 81 mg tablet,delayed release (DR/EC) 81 mg PO DAILY 90 Days Qty: 90 RF: 3 clotrimazole 1 % ointment 1 applic TP BID Qty: 56.7 RF: 0 albuterol sulfate [Ventolin HFA] 8 GM HFA aerosol inhaler 1 - 2 puff Inhalation Q4H PRN Qty: 1 RF: 1 metformin 500 mg tablet extended release 24 hr 1,000 mg PO DAILY Qty: 180 RF: 3 amlodipine 2.5 mg tablet 2.5 mg PO DAILY Qty: 90 RF: 3 cholecalciferol (vitamin D3) [Vitamin D3] 2,000 unit tablet 2,000 unit PO DAILY Qty: 90 RF: 3 atorvastatin 20 mg tablet 20 mg PO DAILY Qty: 90 RF: 3 Discharge Instructions Instructions: Gastroesophageal Reflux Disease (DC) Additional Instructions: Resume your usual medications. Increase your Omeprazole to twice daily dosing. Follow up with your PCP as scheduled. Take care! Stand Alone Forms: Nursing Discharge Form Referrals: Garth Marroquin DO [Primary Care Provider] - 01/20/19 10:00 am Activity:: Activity as Tolerated Equipment/Supplies:: No Equipment Needed Diet:: heart healthy diet Discharge Orders Discharge Orders: Discharge Order (Routine); Ordered 01/10/19 Ordered By: Viola Cali DS: Summary Status at Discharge Functional status at discharge: independent ambulation Overall status at discharge: patient is back to baseline Mental Status: mental status grossly normal Speech and Movement: speech and movement normal Mood: congruent mood Affect: normal affect Exam Narrative Exam Narrative: General: 53 year old man laying in bed with head of bed elevated. Alert and oriented, pleasant and cooperative. HEENT: normocephalic, atraumatic, pupils symmetrical and round, EOMI, mucous membranes moist, edentulous. Neck: supple, no JVD. Respiratory: respirations even and unlabored, lung sounds with few scattered wheezes throughout. Cardiovascular: heart has regular rate and rhythm, nontachycardic, no murmur appreciated. GI: normoactive bowel sounds, abdomen soft, nontender, nondistended. Extremities: no clubbing, cyanosis or edema. Psych Mental Status: mental status grossly normal Speech and Movement: speech and movement normal Mood: congruent mood Affect: normal affect DS: Data Vitals/I&O Vitals and I&O: Vital Signs Temperature 36.7 C 01/10/19 07:10 Temperature Source Tympanic 01/10/19 07:10 Pulse 59 L 01/10/19 07:10 Pulse Rhythm Regular 01/10/19 14:44 Pulse 69 01/09/19 00:16 Respiratory Rate 18 01/10/19 07:10 Respiratory Effort 01/10/19 14:44 Respiratory Depth Normal 01/10/19 14:44 Respiratory Pattern Normal 01/10/19 14:44 Blood Pressure 118/82 01/10/19 07:10 Blood Pressure Mean 81 01/09/19 00:16 Pulse Oximetry 95 01/10/19 07:10 Oxygen Delivery Method Room Air 01/10/19 07:10 Oxygen Flow Rate 0 01/10/19 07:10 Pain Level 0 01/10/19 14:44 Intake & Output 01/09/19 01/10/19 01/10/19 23:59 11:59 23:59 Intake Total 480 / 1160 Balance 480 / 910 Weight 103.7 kg Intake: Oral 480 / 1160 Other: Comment pt voiding independently. Voiding Methods Toilet Urinal Data Completed and Pending Completed studies during hospitalization [Text1]: 01/08/19: EXAM: XR CHEST 2V PA LATERAL INDICATION: chest burning. COMPARISON: CT THORAX CTA from 01/08/2019 TECHNIQUE: 2D digital imaging was performed. FINDINGS: The heart is mildly enlarged. The aorta is tortuous. There is some scarring in the right middle lobe. The lungs are otherwise clear. No infiltrate, effusion or pulmonary edema is seen. There is no evidence of pneumothorax. IMPRESSION: No acute abnormality. EXAM: CT THORAX CTA CLINICAL HISTORY: chest pain TECHNIQUE: 100 cc Omnipaque [address] angiography was performed with multi-slice acquisition and multi-planar and/or 3D reconstructions. FINDINGS: The pulmonary arteries are well opacified with IV contrast and no emboli are identified. There is no evidence of aortic dissection or aneurysm. No pleural or pericardial effusions are seen. There is no evidence of adenopathy. There is mild scarring in the right middle lobe. No infiltrate is seen. There is no evidence of pneumothorax or thoracic compression fractures. Degenerative disc changes are seen. There is mild bilateral gynecomastia. There is prominent fatty infiltration of the liver. The spleen, visualized portions of the pancreas and adrenals are unremarkable. There are cysts in the visualized portion of the right kidney. IMPRESSION: No acute abnormality. 01/10/19: EXAM: Comprehensive 2D, Doppler, and color-flow Echocardiogram Patient Location: In-Patient Senior [employer] Market Coordinator: REECE Pierson (LASHAE) Rhythm: Bradycardia Indications: chest pain Conclusion This is a technically limited study Left Ventricle : The left ventricle is normal size. Left ventricular systolic function is normal. The posterior wall thickness is mildly increased. The septal thickness is mildly increased. There is normal LV segmental wall motion. LVEF is estimated to be 60-65%. Diastolic function is indeterminate. Right Ventricle : The right ventricle appears normal size. The right ventricular systolic function is normal. Atria : The left atrium size is normal. The right atrium size is normal. Aortic Valve : Aortic valve is probably trileaflet, and opens well. No aortic regurgitation is present. There is no aortic valvular stenosis. Mitral Valve : Systolic anterior motion of the mitral chordae is present, otherwise normal. Trivial mitral regurgitation. No evidence of mitral valve stenosis. Tricuspid Valve : The tricuspid valve is normal in structure. Trivial tricuspid regurgitation. Great Vessels : Aortic root is mildly dilated. The ascending aorta size is mildly dilated (3.49cm). The IVC appears small in caliber, and appears to collapse >50% with inspiration. Estimated RVSP is 34-37 mmHg. Compared to echocardiogram dated 06/14/2014 there is no significant change. MPI Conclusion There is no evidence of ischemia on the imaging portion of the stress test Ejection fraction with stress is 45% This represents a normal SPECT imaging study [facility] Medical History Abnormal stress test (Chronic) Chronic kidney disease (CKD), stage III (moderate) (Chronic 05/26/16) ? due to DM or to hypertension Complex regional pain syndrome (Chronic 06/27/13) Diabetes mellitus type 2 in obese (Chronic 02/19/16) presented with polyuria, elevated FS on friend's glucometer, A1c 14 at [facility] ER Essential hypertension (Chronic) goal <140/85 Gastroesophageal reflux disease without esophagitis (Chronic 12/05/11) ER 11/2014 rx PPI Mixed hyperlipidemia (Chronic 01/01/02) low HDL 27; SL HIGH TG; CV RISK (12/2016): 27%: rec Statin Obesity, unspecified (Chronic 12/05/11) 1993 165#; 180 gives BMI <30 Obstructive sleep apnea (Chronic 03/10/16) [id number], severe in REM sleep Sleep study PSG on 03/10/16: AHI 20.1; SPO2 shailesh 82%; CPAP begun 06/08/16. with improvement in fatigue 06/29/16 restudied higher pressures needed assoc. with treatment of central sleep apnea Paresthesias (Resolved 10/27/16) nocturnal, bilateral, R>L, Median nerve, probable CTS Sessile colonic polyp (Inactive 09/26/14) @ transverse colon, sigmoid Tobacco use disorder (Chronic) Vitamin D deficiency (Chronic) Surgical History Cardiac Cath (Chronic 03/24/17) [facility] [place]oscopy - IV Sedation (Inactive 09/26/14) [facility] Perri, serrated polyp, fragments of sessile serrated adenoma Cystoscopy w/ joe retrograde pyelogram (Inactive 03/01/15) Extraction of cataract (Chronic 12/17/16) Left Radha Manzo; Natividad 11/19/16 Family History Father , lung cancer at age 67. Essential hypertension Neoplasm Mother Diabetes Essential hypertension Sister No problems noted. Sister No problems noted. Social History Smoking/Tobacco Use Status: Current every day Tobacco Type: cigarettes Smoking packs per day: 2 Smoking cigarettes per day: 40.0 Quit status: considering quitting Alcohol Intake: former Drug use: Never Substance use type: does not use Household members: significant other Housing: apartment Number of Children: 3 Communication Needs: None Do you need help understanding health information?: Often Current gender identity: male What is your relationship status?: living with partner Panel score (0-1 are the most socially isolated patients): 1 What type of physical activity do you participate in: none Seatbelt use: always Drive intox or ride w/intox intermodal truck driver: No Working smoke detector in home: No Fire extinguisher in home: No Carbon monox detector in home: No Do you feel safe at home: Yes Do you feel safe in your relationship?: Yes
[2019-01-10 15:33] VITALS: PULSE 89
--- NOTE | 2019-01-10 16:53 | PDOC.CMDIS ---
- If Service Date Differs Date of service: 01/10/19 Time of Service: 16:53 LACE Index Scoring Tool - Questions: Length of Stay (in days): 2 Acuity (Admit via E.D.?): Yes Comorbidities: Diabetes w/o Complication E.D. Visits: 7 - Answers: Total Score: 10 Risk of Readmission: High Risk Care Management Discharge Reason for Hospitalization: Chest Pain Discharge Plan: Mansoor will return home with no additional services at this time. CM sent a referral to [facility] for assistance with smoking cessation and provided Mansoor with information for [id number]. He will have follow up appointments, as recommended by his provider. His friend will transport him home via private vehicle. Patient/Family Education Needs: Review discharge instructions regarding activity levels and medications, discussion of self care including Ask Me Three
== END 2019-01-10 16:03 | disposition home or self-care (01) ==
LOC: ER 01-09 00:04 → MS 01-09 01:05
PROVIDERS: Admitting Provider Internal Medicine; Emergency Provider Student in an Organized Health Care Education/Training Program; PCP Family Medicine; Visit Provider Internal Medicine
DX: R07.89 Other chest pain (principal); K21.9 Gastro-esophageal reflux disease without esophagitis; G47.33 Obstructive sleep apnea (adult) (pediatric); E11.22 Type 2 diabetes mellitus with diabetic chronic kidney disease; E78.5 Hyperlipidemia, unspecified; N18.9 Chronic kidney disease, unspecified; I12.9 Hypertensive chronic kidney disease with stage 1 through stage 4 chronic kidney disease, or unspecified chronic kidney disease; F17.210 Nicotine dependence, cigarettes, uncomplicated; Z68.37 Body mass index [BMI] 37.0-37.9, adult; Z82.49 Family history of ischemic heart disease and other diseases of the circulatory system
CPT/HCPCS: 36410; 36415; 71275; 78452; 80053; 80061; 93016; 93018; 93306; 99223; 99239; J1650; NC; 71046; 83036; 84484; 85025; 85049; 93017; 99217; 99220; G0378; J3490

== ENCOUNTER 2019-01-24 14:42 | Outpatient (CLI) | payer MEDICARE, MEDICAID, SELFPAY ==
--- NOTE | 2019-01-24 15:34 | DI.RAD_ITS ---
EXAM: XR CHEST 2V PA AND LATERAL INDICATION: PERSISTENT HEAVY COUGH X 2 WEEKS, R/O INFILTRATE, J20.9 ACUTE BRONCHITIS. COMPARISON: No exams were available for comparison TECHNIQUE: 2D digital imaging was performed. FINDINGS: The heart is enlarged. The aorta is tortuous. The lungs appear clear. IMPRESSION: No acute abnormality.
== END 2019-01-24 15:02 ==
PROVIDERS: PCP Family Medicine; Visit Provider Family Medicine
DX: R05 Cough (principal); J20.9 Acute bronchitis, unspecified; I51.7 Cardiomegaly
CPT/HCPCS: 71046

== ENCOUNTER 2019-03-09 20:08 | Emergency (ER) | payer MEDICARE, MEDICAID, SELFPAY ==
[2019-03-09 20:11] VITALS: BP 140/66; PULSE 75; RESP 24; TEMP 36.3; O2SAT 99
--- NOTE | 2019-03-09 20:53 | ED.GENADUL_ITS ---
Discharge Plan Disposition Patient Disposition: HOME Condition: Good Discharge Details Chief Complaint: Abd Prob Clinical Impression: Abdominal pain, lower Primary Care Provider: Garth Marroquin ED Provider: Gregor Solorzano [place] Meds and New Rx's Prescriptions: Continued acetaminophen [Tylenol Extra Strength] 500 mg tablet 500 mg PO Q4H PRNRF: 0 aspirin 81 mg tablet,delayed release (DR/EC) 81 mg PO DAILY 90 Days Qty: 90 RF: 3 ciprofloxacin HCl 500 mg tablet 500 mg PO BID 7 Days Qty: 14 RF: 0 metronidazole [Flagyl] 500 mg tablet 500 mg PO Q8H 7 Days Qty: 21 RF: 0 clotrimazole 1 % ointment 1 applic TP BID Qty: 56.7 RF: 0 metformin 500 mg tablet extended release 24 hr 1,000 mg PO DAILY Qty: 180 RF: 3 amlodipine 2.5 mg tablet 2.5 mg PO DAILY Qty: 90 RF: 3 cholecalciferol (vitamin D3) [Vitamin D3] 2,000 unit tablet 2,000 unit PO DAILY Qty: 90 RF: 3 atorvastatin 20 mg tablet 20 mg PO DAILY Qty: 90 RF: 3 albuterol sulfate [Ventolin HFA] 90 mcg/actuation HFA aerosol inhaler 1 - 2 puff Inhalation Q4H PRN Qty: 1 RF: 0 omeprazole 40 mg capsule,delayed release(DR/EC) 40 mg PO DAILY Qty: 90 RF: 3 lisinopril 30 mg tablet 30 mg PO DAILY Qty: 90 RF: 3 Discharge Instructions Additional Instructions: Laboratory studies, CAT scan, urine shows no acute process. Please continue antibiotics as previously prescribed. Use Tylenol for pain. Touch base with primary care before the weekend to let them know how you are doing. Follow-up with him next week if not doing better. Return to ED if increased pain, vomitin g, fever, other concerns or problems. Referrals: Garth Marroquin DO [Primary Care Provider] - Medical Decision Making Patient presents with complaint of worsening abdominal pain and distention. No associated vomiting or diarrhea. Eating and drinking normally. Urinating normally. No fever. Definitely firm and distended but appears nontender. IV established and will get laboratory studies. Fluids started. Patient with allergies so we will give IV Tylenol. CT scan ordered. 23:15 - Patient's labs are unremarkable. White count is normal. Hemoglobin is normal. Chemistries are fine. Lactic acid less than 2. Glucose is high at 258 with his history of diabetes. Lipase normal. Liver function normal. CT scan of the abdomen pelvis shows no acute abnormalities. He does have diverticulosis. He has some thickening of the sigmoid which is stable and unchanged. Does not have anything read as discrete diverticulitis by radiology. Patient's pain gone with IV Tylenol. Urinalysis positive for blood with 10-20 red cells on micro. No evidence of hydronephrosis or hydroureter on CT. Previous hematuria documented on most urinalysis in the past. We will continue the patient's antibiotics for now though no definite evidence of diverticulitis on CT. We will have him use Tylenol for his discomfort. Contact primary care before the weekend to let them know how he is doing. Follow-up with him next week. Return to ED if fever, vomiting, worsening pain, other concerns or problems. Medical Records Medical records reviewed: Yes I reviewed the patient's medical records. Lab Data Lab results reviewed: Yes I reviewed the patient's lab results. ECG Data Attestation: I personally reviewed and interpreted this ECG (s) as follows: Interpretation: Normal sinus rhythm at 74. Normal axis and intervals. Normal ST segments. Nothing acute. HPI General Mode of arrival: ambulatory . Date/Time Provider Initiated Documentation: 03/09/19 20:20 . Limitations to Documentation: no limitations . Information obtained by: patient, RN notes reviewed and old records reviewed . HPI Narrative: Patient presents to ED with continued lower abdominal pain which he now describes as burning with some radiation down into the groin. He also feels bloated and distended. He was seen by primary care yesterday and started on Cipro and Flagyl for presumed diverticulitis which he has had previously. Reports that his pain is now different and worse. He has continued to eat and drink. He has had no nausea, vomiting or diarrhea. He has had no fever. He has no chest or back pain. He has no difficulty urinating. He has not noticed any redness or swelling in his groin or scrotal area. He denies feeling short of breath though per nursing seemed quite tachypneic walking in to the room. Related Data Home Medications Medication Instructions Recorded Confirmed acetaminophen 500 mg tablet 500 mg PO Q4H PRN 10/26/17 03/09/19 metformin 500 mg tablet,extended 1,000 mg PO DAILY #180 tab-cap 03/22/18 03/09/19 release 24 hr amlodipine 2.5 mg tablet 2.5 mg PO DAILY #90 tab-cap 04/12/18 03/09/19 cholecalciferol (vitamin D3) 2,000 2,000 unit PO DAILY #90 tab-cap 05/11/18 03/09/19 unit tablet clotrimazole 1 % topical ointment 1 applic TP BID #56.7 gm 09/06/18 03/09/19 atorvastatin 20 mg tablet 20 mg PO DAILY #90 tab 11/04/18 03/09/19 aspirin 81 mg tablet,delayed 81 mg PO DAILY 90 Days #90 tabec 01/07/19 03/09/19 release albuterol sulfate 90 mcg/actuation 1 - 2 puff INHALATION Q4H PRN #1 01/24/19 03/09/19 aerosol inhaler inhaler omeprazole 40 mg capsule,delayed 40 mg PO DAILY #90 cap 02/01/19 03/09/19 release lisinopril 30 mg tablet 30 mg PO DAILY #90 tab-cap 03/03/19 03/09/19 ciprofloxacin HCl 500 mg tablet 500 mg PO BID 7 Days #14 tab 03/08/19 03/09/19 metronidazole 500 mg tablet 500 mg PO Q8H 7 Days #21 tab 03/08/19 03/09/19 Previous Rx's Medication Instructions Recorded metformin 500 mg tablet,extended 1,000 mg PO DAILY #180 tab-cap 03/22/18 release 24 hr amlodipine 2.5 mg tablet 2.5 mg PO DAILY #90 tab-cap 04/12/18 cholecalciferol (vitamin D3) 2,000 2,000 unit PO DAILY #90 tab-cap 05/11/18 unit tablet clotrimazole 1 % topical ointment 1 applic TP BID #56.7 gm 09/06/18 atorvastatin 20 mg tablet 20 mg PO DAILY #90 tab 11/04/18 aspirin 81 mg tablet,delayed 81 mg PO DAILY 90 Days #90 tabec 01/07/19 release albuterol sulfate 90 mcg/actuation 1 - 2 puff INHALATION Q4H PRN #1 01/24/19 aerosol inhaler inhaler omeprazole 40 mg capsule,delayed 40 mg PO DAILY #90 cap 02/01/19 release lisinopril 30 mg tablet 30 mg PO DAILY #90 tab-cap 03/03/19 ciprofloxacin HCl 500 mg tablet 500 mg PO BID 7 Days #14 tab 03/08/19 metronidazole 500 mg tablet 500 mg PO Q8H 7 Days #21 tab 03/08/19 Allergies Allergy/AdvReac Type Severity Reaction Status Date / Time celecoxib Allergy Intermediate Rash, Verified 03/09/19 20:20 urticaria naproxen Allergy Intermediate Itchy Welts Verified 03/09/19 20:20 prednisone AdvReac Unknown Upset Verified 03/09/19 20:20 stomach, fatigue General Stated Complaint: Abd Prob JAMES: 3 Review of Systems Narrative: 11/29 Review of Systems completed and is negative except as stated above in HPI (Systems reviewed: Const, Eyes, ENT, Resp, CV, GI, , MSK, Skin, Neuro) [facility] Medical History Abnormal stress test (Chronic) Chronic kidney disease (CKD), stage III (moderate) (Chronic 05/26/16) ? due to DM or to hypertension Complex regional pain syndrome (Chronic 06/27/13) Diabetes mellitus type 2 in obese (Chronic 02/19/16) presented with polyuria, elevated FS on friend's glucometer, A1c 14 at [facility] ER Essential hypertension (Chronic) goal <140/85 Gastroesophageal reflux disease without esophagitis (Chronic 12/05/11) ER 11/2014 rx PPI Mixed hyperlipidemia (Chronic 02/16/01) low HDL 27; SL HIGH TG; CV RISK (12/2016): 27%: rec Statin Obesity, unspecified (Chronic 12/05/11) 1993 165#; 180 gives BMI <30 Obstructive sleep apnea (Chronic 03/10/16) [id number], severe in REM sleep Sleep study PSG on 03/10/16: AHI 20.1; SPO2 shailesh 82%; CPAP begun 06/08/16. with improvement in fatigue 06/29/16 restudied higher pressures needed assoc. with treatment of central sleep apnea Paresthesias (Resolved 10/27/16) nocturnal, bilateral, R>L, Median nerve, probable CTS Sessile colonic polyp (Inactive 09/26/14) @ transverse colon, sigmoid Tobacco use disorder (Chronic) Vitamin D deficiency (Chronic) Surgical History Cardiac [place] (Chronic 03/24/17[place] [facility] [place] - [place] Sedation (Inactive 09/26/14) [facility], serrated polyp, fragments of sessile serrated adenoma Cystoscopy w/ joe retrograde pyelogram (Inactive 03/01/15) Extraction of cataract (Chronic 12/17/16) Left Radha Manzo; R 11/19/16 Social History Smoking/Tobacco Use Status: Current every day Tobacco Type: cigarettes Smoking packs per day: 2 Smoking cigarettes per day: 40.0 Quit status: considering quitting Alcohol Intake: former Drug use: Never Substance use type: does not use Household members: significant other Housing: apartment Number of Children: 3 Communication Needs: None Do you need help understanding health information?: Often Current gender identity: male What is your relationship status?: living with partner Panel score (0-1 are the most socially isolated patients): 1 What type of physical activity do you participate in: none Seatbelt use: always Drive intox or ride w/intox carry all driver: No Working smoke detector in home: No Fire extinguisher in home: No Carbon monox detector in home: No Do you feel safe at home: Yes Do you feel safe in your relationship?: Yes Exam Narrative Exam Narrative: Vitals: Afebrile. Normal vitals and room air pulse oximetry. Const: Obese male in NAD. HEENT: NC/AT. Normal facial exam. Eyes: Normal conjunctiva and sclera. Neck: Supple. Trachea midline. Lungs: Normal respiratory effort. Lungs are clear. No wheezing or rhonchi heard. Cor: RRR without murmur/gallop. Good radial pulses. GI: Firm and distended but no definite fluid wave. Not overly tympanitic. No tenderness elicited. : Normal appearing male genitalia. Large testicles bilaterally but do not appear swollen. Nontender. No hernias appreciated. No erythema or swelling of the scrotal area. Neuro: A+O x 3. Normal speech, mentation, gait. No gross motor or sensory deficit. Ext: No C/C/E. Skin: Warm and dry without rash. Course Vital Signs Vital signs: Vital Signs Temperature 97.3 F L 03/09/19 20:11 Pulse 75 03/09/19 20:11 Respiratory Rate 24 03/09/19 20:11 Blood Pressure 140/66 03/09/19 20:11 Pulse Oximetry 99 03/09/19 20:11 Temperature 97.3 F L 03/09/19 20:11 Temperature Source Skin 03/09/19 20:11 Pulse 75 03/09/19 20:11 Respiratory Rate 24 03/09/19 20:11 Respiratory Effort 03/09/19 20:34 Blood Pressure 140/66 03/09/19 20:11 Blood Pressure Position Supine 03/09/19 20:11 Pulse Oximetry 99 03/09/19 20:11 Oxygen Delivery Method Room Air 03/09/19 20:11 Oxygen Flow Rate 0 03/09/19 20:11 Pain Level 8 03/09/19 20:11
[2019-03-09] MEDS: ACETAMINOPHEN 1,000 MG/100 ML BTL 400 MG IVPB (20:55)
[2019-03-09] MEDS: Lactated Ringers 1,000 ML 125 ML IV (20:55)
[2019-03-09 20:58] LABS: Lactate 1.9 mmol/L (0.6-1.4)
[2019-03-09 21:13] LABS: ALT 37 U/L (16-63); Albumin 3.5 g/dL (3.4-5.0); Alkaline Phosphatase 107 U/L (46-116); Anion Gap 7.7 mmol/L (3-11); BUN 22 mg/dL (7-18); Bilirubin, Total 0.2 mg/dL (0.2-1.0); CO2 26.3 mmol/L (21.0-32.0); CREATININE 1.23 mg/dL (0.70-1.30); Calcium 8.4 mg/dL (8.5-10.1); Chloride 105 mmol/L (98-107); Glucose 258 mg/dL (74-106); Lipase 255 U/L (73-393); Magnesium 1.7 mg/dL (1.8-2.4); Potassium 4.1 mmol/L (3.5-5.1); Sodium 139 mmol/L (136-145); Total Protein 6.7 g/dL (6.4-8.2)
[2019-03-09 21:33] LABS: Abs Immature Grans 0.16 k/cumm (0.0-0.09); Absolute Basophil Count 0.08 k/cumm (0.0-0.2); Absolute Lymphocyte Count 2.58 k/cumm (1.2-3.4); Absolute Monocyte Count 0.98 k/cumm (0.11-0.7); Absolute Neutrophil Count 4.22 k/cumm (1.2-6.7); Eosinophils % 2.4; HCT 42.4 % (40.0-50.0); HGB 14.5 g/dL (13.5-17.5); Immature Grans % 1.9 %; Lymphocytes % 31.4; Mean Corp. HGB Concentration 34.2 g/dL (32.0-36.0); Mean Corpuscular Hemoglobin 30.2 pg (27.0-33.0); Mean Corpuscular Volume 88.3 fL (80-95); Mean Platelet Volume 11.4 fL (8.0-11.0); Monocytes % 11.9; Neutrophils % 51.4; Platelet Count 189 x1000/uL (130-400); RBC Distribution Width 13.7 % (11.8-14.1); White Blood Cell Count 8.22 k/cumm (4.4-10.8)
[2019-03-09 21:34] VITALS: BP 122/50; PULSE 71; RESP 28; O2SAT 98
[2019-03-09] MEDS: Omnipaque 350 MG/ML 100 ML BTL IJ (21:54)
--- NOTE | 2019-03-09 21:56 | DI.CT_ITS ---
EXAM: CT ABDOMEN PELVIS W CLINICAL HISTORY: lower abd pain/distension. TECHNIQUE: Imaging Protocol: Axial computed tomography images with coronal and sagittal reformatted images were created and reviewed CONTRAST MATERIAL: Intravenous: Omnipaque 350 Contrast volume:100 mL Oral: No CT THORAX CTA from 01/08/2019 FINDINGS: ABDOMEN: Lung Bases: No focal consolidating infiltrates. Scarring in the right lung base appears stable indu red to the CT scan of the chest from 01/08/2019. Liver: Diffuse decreased attenuation consistent with hepatic steatosis. Mild hepatomegaly. Gallbladder and biliary tract: No radiodense calculus or dilation. Contracted gallbladder. No biliar y ductal dilatation. Pancreas: Normal density, no abnormal calcifications or inflammatory process. Spleen: Normal. Kidneys: Normal size, contour and axis. No radiodense stones or obstructive uropathy. Small bilateral renal cysts. No solid renal mass. Adrenal glands: No masses seen. Abdominal Aorta: Abdominal portion non-dilated. Mild atherosclerosis. PELVIS: Bladder: Symmetric distention, no gross wall thickening. Bowel: Diverticulosis. No evidence of acute diverticulitis in the colon. Diverticulum arising from the 2nd portion of the duodenum. This is stable. Normal appendix. No evidence of a bowel inflammat ory or infectious process. Peritoneal cavity: No ascites, collection or mesenteric inflammatory response. Bones: Mild degenerative changes in the lumbar spine. Reproductive organs: Within normal limits. Lymph nodes: Unremarkable. Impression: 1. Hepatic steatosis. 2. Colonic diverticulosis but no evidence of acute diverticulitis. 3. Stable scarring in the right lower lobe. 4. No evidence of an acute abdominal or pelvic process. DATA REPOSITORY: All CT scans at this facility are submitted to the National Radiology Data Registry (NRDR) Dose Index Registry (DIR) with the [employer] (ACR). RADIATION OPTIMIZATION: All CT scans at this facility use at least one of these dose optimization te chniques: automated exposure control; mA and/or kV adjustment per patient size (includes targeted exa ms where dose is matched to clinical indication); or iterative reconstruction.
[2019-03-09 21:58] LABS: AST 17 U/L (15-37)
--- NOTE | 2019-03-09 22:20 | DI.VRAD_ITS ---
PROCEDURE INFORMATION: Exam: CT Abdomen And Pelvis With Contrast Exam date and time: 03/09/2019 8:49 PM Age: 53 years old Clinical indication: Abdominal pain; Localized; Lower; Additional info: Lower abdominal pain since this afternoon, HX diverticulitis TECHNIQUE: Imaging protocol: Computed tomography of the abdomen and pelvis with intravenous contrast. Radiation optimization: All CT scans at this facility use at least one of these dose optimization techniques: automated exposure control; mA and/or kV adjustment per patient size (includes targeted exams where dose is matched to clinical indication); or iterative reconstruction. Contrast material: [id number]; Contrast volume: 100 ml; Contrast route: IV RT AC 18G; COMPARISON: CT Private^ROUTINE ABDOMEN PELVIS WITH CONTRAST (Adult) 01/09/2018 10:42 PM FINDINGS: Lungs: The visualized lung bases show mild atelectatic changes. The previously described the poorly defined nodular opacity in the medial basilar segment of the right lower lobe shows near complete resolution when compared to the CT scan of 01/09/2018. Liver: The liver is at the upper limits of normal in size measuring 18.9 cm in anteroposterior dimension. Density measurements are consistent with hepatic steatosis. No enhancing liver lesion is identified. Gallbladder and bile ducts: The gallbladder is contracted, likely secondary to a recent meal. No calcified gallstones identified. There is no evidence of intrahepatic or extrahepatic biliary ductal dilatation. Pancreas: Normal. No ductal dilation. Spleen: Normal. No splenomegaly. Adrenals: Normal. No mass. Kidneys and ureters: Normal. No hydronephrosis. Stomach and bowel: There is ingested material in the stomach with a small air-fluid level. In there is a stable diverticulum of the 2nd portion of the duodenum. No evidence of small bowel or colonic obstruction. Moderate diverticulosis is present in the distal colon. There is mild segmental thickening of the wall of the sigmoid in the area of diverticula similar to that seen on the prior examination of 01/09/2018. Appendix: No evidence of appendicitis. Intraperitoneal space: Unremarkable. No free air. No significant fluid collection. Vasculature: Few scattered atherosclerotic calcifications noted in the abdominal aorta with tortuosity without aneurysm. Lymph nodes: There are stable nonenlarged retroperitoneal lymph nodes. Bladder: The bladder is mildly distended and shows a smooth contour. Reproductive: The prostate measures 4.5 cm in transverse diameter. Bones/joints: The spine demonstrates mild degenerative changes at multiple levels. Soft tissues: Unremarkable. IMPRESSION: 1. The previously described poorly defined nodular opacity in the medial basilar segment of the right lower lobe shows near complete resolution. 2. Liver at the upper limits of normal in size with hepatic steatosis. 3. A stable diverticulum of the 2nd portion of the duodenum. 4. Moderate diverticulosis without evidence of acute diverticulitis. Mild segmental thickening of the wall of the sigmoid colon has not changed in the interim. 5. Peripheral vascular disease. Dictated and Authenticated by: Garett Walsh MD. Ordering:BERTO Bundy MD
[2019-03-09 22:51] LABS: Bilirubin Negative (Negative); Blood Small (Negative); Clarity Clear (Clear); Glucose 100 mg/dL (Negative); Ketones Negative (Negative); Leukocyte Esterase Negative (Negative); Nitrite Negative (Negative); Urobilinogen 0.2 EU/dL (Up TO 0.2)
[2019-03-09 22:59] LABS: Bacteria Negative HPF (Negative); C & S Indicated? No; Casts Negative LPF (Negative); Crystals Negative HPF (Negative); Epithelial Cells Negative HPF (Negative); Mucus Negative (Negative); Other Cells Negative (Negative); WBC Negative HPF (0-5)
== END 2019-03-09 23:25 | disposition home or self-care (01) ==
PROVIDERS: Emergency Provider Emergency Medicine; PCP Family Medicine
DX: R10.30 Lower abdominal pain, unspecified (principal); K57.90 Diverticulosis of intestine, part unspecified, without perforation or abscess without bleeding; E11.22 Type 2 diabetes mellitus with diabetic chronic kidney disease; N18.3 Chronic kidney disease, stage 3 (moderate); I12.9 Hypertensive chronic kidney disease with stage 1 through stage 4 chronic kidney disease, or unspecified chronic kidney disease; Z79.84 Long term (current) use of oral hypoglycemic drugs
CPT/HCPCS: 80053; 83690; 93005; 96374; 99285; 74177; 81003; 81015; 83605; 83735; 85025; 93010; 99284; J0131; J3490

== ENCOUNTER 2019-03-24 03:04 | Outpatient (CLI) | payer MEDICARE, MEDICAID, SELFPAY | END 2019-03-24 03:24 | PROVIDERS: PCP Family Medicine; Visit Provider Family Medicine | DX: E11.9 Type 2 diabetes mellitus without complications (principal); Z71.3 Dietary counseling and surveillance | CPT/HCPCS: 97802 ==

== ENCOUNTER 2019-05-28 18:08 | Emergency (ER) | payer MEDICARE, MEDICAID, SELFPAY ==
[2019-05-28 18:12] VITALS: BP 138/78; PULSE 89; TEMP 36.4; O2SAT 98
[2019-05-28] MEDS: Ondansetron 4 MG/2 ML VIAL IVP (18:38)
--- NOTE | 2019-05-28 18:38 | W.ED.GENAD ---
Discharge Plan Disposition Patient Disposition: HOME Condition: Stable Discharge Details Chief Complaint: Abd Prob Clinical Impression: Abdominal pain, Hematuria Primary Care Provider: Garth Marroquin ED Provider: Manpreet Bravo Home Meds and New Rx's Prescriptions: No Action acetaminophen [Tylenol Extra Strength] 500 mg tablet 500 mg PO Q4H PRNRF: 0 aspirin 81 mg tablet,delayed release (DR/EC) 81 mg PO DAILY 90 Days Qty: 90 RF: 3 Jardiance 10 mg tablet 10 mg PO QAM Qty: 30 RF: 6 metformin 500 mg tablet extended release 24 hr 1,000 mg PO DAILY Qty: 180 RF: 3 clotrimazole 1 % ointment 1 applic TP BID Qty: 56.7 RF: 0 amlodipine 2.5 mg tablet 2.5 mg PO DAILY Qty: 90 RF: 3 cholecalciferol (vitamin D3) [Vitamin D3] 2,000 unit tablet 2,000 unit PO DAILY Qty: 90 RF: 3 atorvastatin 20 mg tablet 20 mg PO DAILY Qty: 90 RF: 3 albuterol sulfate [Ventolin HFA] 90 mcg/actuation HFA aerosol inhaler 1 - 2 puff Inhalation Q4H PRN Qty: 1 RF: 0 omeprazole 40 mg capsule,delayed release(DR/EC) 40 mg PO DAILY Qty: 90 RF: 3 lisinopril 30 mg tablet 30 mg PO DAILY Qty: 90 RF: 3 Discharge Instructions Instructions: Hematuria (ED), Abdominal Pain (ED) Additional Instructions: At this time your blood work is unremarkable and your urinalysis reveals microscopic blood in your urine. It appears as though you chronically have microscopic blood in your urine. You responded nicely to Zofran and Toradol, no clear indication for emergent imaging this evening as you have already had a CT for your right-sided abdominal pain back in February. I do recommend that you continue attempting to be seen by GI but I have given you a referral to urology, Dr. Rogers, so that you may be evaluated for your chronic hematuria as this may be where your symptoms are coming from. I recommend that you contact your primary care provider on Thursday for prompt outpatient reevaluation otherwise return to the ER for new or evolving symptoms. Referrals: Desmond Rogers MD [ [facility] STAFF PHYSICIAN] - Discharge Data Discharge Date/Time-TO BE ENTERED AT DEPARTURE: 05/28/19 20:40 Medical Decision Making 53-year-old gentleman with a history of chronic abdominal pain, diabetes, obesity, GERD, hypertension presents to the ER for what he describes as worsening right-sided abdominal pain that began today associate with nausea and vomiting. He reports that this is been going on for several months, he is been followed by his primary care provider, an outpatient CT, and now referred to GI. He reports that given the vomiting, he contacted his primary care provider who recommended coming to the ER. He appears well, nontoxic, and has a nonsurgical abdominal examination. Will provide IV fluid, Zofran, obtain routine laboratory values and reassess. Differential includes but not excluded to small bowel obstruction, renal stone, pyelonephritis, UTI, diverticulitis, appendicitis. Upon reevaluation patient reports that his nausea has resolved completely however his pain remains a 7 or 8 out of 10. Laboratory values started to result he has a estimated GFR of 53. Will give a single dose of Toradol. I reviewed his previous CT abdomen pelvis, unremarkable for obvious etiology of where this right-sided pain is coming from. Labs today reveal a white blood cell count of 10.25, hemoglobin 17, hematocrit 48.8, platelets 228. Sodium 137 potassium 4.3 BUN 17, creatinine 1.38 LFTs unremarkable. Urine reveals moderate blood, 3-5 red cells. Upon reviewing his previous laboratory values he appears to always have hematuria. Hematuria certainly raises the suspicion for renal stone however this appears more chronic in nature, previous CT did not mention stone. Upon reevaluation patient reports that he is asymptomatic. Pain has completely resolved. Discussed our options, he feels well and is comfortable discharge. Will hold off on repeat CT imaging as patient did have a normal CT for the same symptoms roughly 3 months ago. Patient will continue to attempt to be seen by GI and I will refer him to urology for his chronic hematuria. Patient has no additional questions or concerns. Upon discharge she is asymptomatic Medical Records Medical records reviewed: Yes I reviewed the patient's medical records. Lab Data Lab results reviewed: Yes I reviewed the patient's lab results. Lab results narrative: Laboratory Tests Range/Units 05/28/19 05/28/19 05/28/19 18:33 18:33 19:56 WBC (4.4-10.8) k/cumm 10.25 RBC (4.50-6.00) m/cumm 5.55 Hgb (13.5-17.5) g/dL 17.0 Hct (40.0-50.0) % 48.8 MCV (80-95) fL 87.9 MCH (27.0-33.0) pg 30.6 MCHC (32.0-36.0) g/dL 34.8 RDW (11.8-14.1) % 13.4 Plt Count (130-400) x1000/uL 228 MPV (8.0-11.0) fL 10.5 Immature Gran % % 1.9 Neutrophils % 51.2 Lymphocytes % 32.8 Monocytes % 10.2 Eosinophils % 2.9 Basophils % 1.0 Absolute Neutrophils (1.2-6.7) k/cumm 5.25 Absolute Lymphocytes (1.2-3.4) k/cumm 3.36 Absolute Monocytes (0.11-0.7) k/cumm 1.05 H Absolute Eosinophils (0.0-0.7) k/cumm 0.30 Absolute Basophils (0.0-0.2) k/cumm 0.10 Sodium (136-145) mmol/L 137 Potassium (3.5-5.1) mmol/L 4.3 Chloride (98-107) mmol/L 103 Carbon Dioxide (21.0-32.0) mmol/L 24.1 Anion Gap (3-11) mmol/L 9.9 BUN (7-18) mg/dL 17 Creatinine (0.70-1.30) mg/dL 1.38 H Estimated GFR/1.73 m2 (mL/min/1.73m2) 53.50 Glucose (74-106) mg/dL 116 H Calcium (8.5-10.1) mg/dL 9.0 Total Bilirubin (0.2-1.0) mg/dL 0.3 AST (15-37) U/L 20 ALT (16-63) U/L 45 Alkaline Phosphatase (46-116) U/L 92 Total Protein (6.4-8.2) g/dL 7.8 Albumin (3.4-5.0) g/dL 4.0 Lipase (73-393) U/L 162 Urine Color (Yellow) Yellow Urine Clarity (Clear) Clear Urine pH (5-8) 6.0 Ur Specific [place] (1.005-1.025) 1.020 Urine Protein (Negative) mg/dL Negative Urine Ketones (Negative) mg/dL Negative Urine Blood (Negative) Moderate H Urine Nitrite (Negative) Negative Urine Bilirubin (Negative) Negative Urine Urobilinogen (Up TO 0.2) EU/dL 0.2 Ur Leukocyte Esterase (Negative) Negative Urine RBC (0-2) HPF 3-5 H Urine WBC (0-5) HPF 3-5 Ur Epithelial Cells (Negative) HPF Negative Urine Crystals (Negative) HPF Negative Urine Bacteria (Negative) HPF Negative Urine Casts (Negative) LPF Negative Urine Mucus (Negative) Negative Urine Other (Negative) Negative Ur Culture Indicated? No Urine Glucose (Negative) mg/dL 500 H HPI General Mode of arrival: ambulatory. Date/Time Provider Initiated Documentation: 05/28/19 18:12. Limitations to Documentation: no limitations. Information obtained by: patient. HPI Narrative: This is a 53-year-old gentleman with a history of diabetes type 2, obesity, hyperlipidemia, GERD, hypertension, presenting to the ER for evaluation of right sided abdominal discomfort that he reports radiates to the middle of his abdomen and associated with nausea. He reports the pain is currently an 8 out of 10 and is constant. He has not vomited. He reports similar symptoms for at least 5 months, has been evaluated by his primary care provider, and has even had an outpatient CT without any obvious findings. He was referred to GI however given the pandemic he is having difficulty following up with a subspecialist as an outpatient. He denies any headache, chest pain, shortness of breath, fever, back pain, pain radiating down to his groin or testicles. Denies dysuria, hematuria, diarrhea or constipation. Reports his appetite is normal, had normal bowel movement today. Patient reports that this feels very similar to the pain he has been experiencing over the past several months although he feels as though his nausea is worse than usual. He denies recent illness or trauma. Related Data Home Medications Medication Instructions Recorded Confirmed acetaminophen 500 mg tablet 500 mg PO Q4H PRN 10/26/17 04/19/19 amlodipine 2.5 mg tablet 2.5 mg PO DAILY #90 tab-cap 04/12/18 04/19/19 cholecalciferol (vitamin D3) 50 2,000 unit PO DAILY #90 tab-cap 05/11/18 04/19/19 mcg (2,000 unit) tablet clotrimazole 1 % topical ointment 1 applic TP BID #56.7 gm 09/06/18 04/19/19 atorvastatin 20 mg tablet 20 mg PO DAILY #90 tab 11/04/18 04/19/19 aspirin 81 mg tablet,delayed 81 mg PO DAILY 90 Days #90 tabec 01/07/19 04/19/19 release albuterol sulfate 90 mcg/actuation 1 - 2 puff INHALATION Q4H PRN #1 01/24/19 04/19/19 aerosol inhaler inhaler omeprazole 40 mg capsule,delayed 40 mg PO DAILY #90 cap 02/01/19 04/19/19 release lisinopril 30 mg tablet 30 mg PO DAILY #90 tab-cap 03/03/19 04/19/19 empagliflozin 10 mg tablet 10 mg PO QAM #30 tab 04/11/19 04/19/19 metformin 500 mg tablet,extended 1,000 mg PO DAILY #180 tab-cap 04/11/19 04/19/19 release 24 hr Previous Rx's Medication Instructions Recorded amlodipine 2.5 mg tablet 2.5 mg PO DAILY #90 tab-cap 04/12/18 cholecalciferol (vitamin D3) 50 2,000 unit PO DAILY #90 tab-cap 05/11/18 mcg (2,000 unit) tablet clotrimazole 1 % topical ointment 1 applic TP BID #56.7 gm 09/06/18 atorvastatin 20 mg tablet 20 mg PO DAILY #90 tab 11/04/18 aspirin 81 mg tablet,delayed 81 mg PO DAILY 90 Days #90 tabec 01/07/19 release albuterol sulfate 90 mcg/actuation 1 - 2 puff INHALATION Q4H PRN #1 01/24/19 aerosol inhaler inhaler omeprazole 40 mg capsule,delayed 40 mg PO DAILY #90 cap 02/01/19 release lisinopril 30 mg tablet 30 mg PO DAILY #90 tab-cap 03/03/19 empagliflozin 10 mg tablet 10 mg PO QAM #30 tab 04/11/19 metformin 500 mg tablet,extended 1,000 mg PO DAILY #180 tab-cap 04/11/19 release 24 hr Allergies Allergy/AdvReac Type Severity Reaction Status Date / Time celecoxib Allergy Intermediate Rash, Verified 05/28/19 18:16 urticaria naproxen Allergy Intermediate Itchy Welts Verified 05/28/19 18:16 prednisone AdvReac Unknown Upset Verified 05/28/19 18:16 stomach, fatigue General Stated Complaint: Abd Prob JAMES: 3 Review of Systems Constitutional Constitutional: Denies fatigue, Denies fever(s), Denies headache(s), Denies poor appetite and Denies weakness ENT Ears, Nose, Mouth, and Throat: Denies headache(s) and Denies sore throat Cardiovascular Cardiovascular: Denies chest pain and Denies dyspnea Respiratory Respiratory: Denies cough and Denies dyspnea Gastrointestinal Gastrointestinal: Reports abdominal pain, Denies change in bowel habits, Denies constipation, Denies diarrhea, Reports nausea and Denies vomiting Genitourinary Genitourinary: Denies genital pain, Denies dysuria, Denies scrotal swelling and Denies testicular pain Musculoskeletal Musculoskeletal: Denies back pain, Denies numbness and Denies tingling Integumentary/Breasts Skin/Breast: Denies rash Neurologic Neurologic: Denies headache(s), Denies numbness, Denies tingling and Denies weakness Endocrine Endocrine: Denies fatigue [facility] Medical History Abdominal obesity (Acute) Abnormal stress test (Chronic) Chronic kidney disease (CKD), stage III (moderate) (Chronic 05/26/16) ? due to DM or to hypertension Complex regional pain syndrome (Chronic 06/27/13) Diabetes mellitus type 2 in obese (Chronic 02/19/16) presented with polyuria, elevated FS on friend's glucometer, A1c 14 at [facility] ER Essential hypertension (Chronic) goal <140/85 Gastroesophageal reflux disease without esophagitis (Chronic 12/05/11) ER 11/2014 rx PPI Mixed hyperlipidemia (Chronic 02/16/01) low HDL 27; SL HIGH TG; CV RISK (12/2016): 27%: rec Statin Obesity, unspecified (Chronic 12/05/11) 1993 165#; 180 gives BMI <30 Obstructive sleep apnea (Chronic 03/10/16) [id number], severe in REM sleep Sleep study PSG on 03/10/16: AHI 20.1; SPO2 shailesh 82%; CPAP begun 06/08/16. with improvement in fatigue 06/29/16 restudied higher pressures needed assoc. with treatment of central sleep apnea Paresthesias (Resolved 10/27/16) nocturnal, bilateral, R>L, Median nerve, probable CTS Sessile colonic polyp (Inactive 09/26/14) @ transverse colon, sigmoid Tobacco use disorder (Chronic) Quit 2019 Vitamin D deficiency (Chronic) Surgical History Cardiac Cath (Chronic 03/24/17) [facility] [place] Colonoscopy - IV Sedation (Inactive 09/26/14) [facility]ri, serrated polyp, fragments of sessile serrated adenoma Cystoscopy w/ joe retrograde pyelogram (Inactive 03/01/15) Extraction of cataract (Chronic 12/17/16) Left Radha Manzo; Natividad 11/19/16 Family History Father , lung cancer at age 67. Essential hypertension Neoplasm Mother Diabetes Essential hypertension Sister No problems noted. Sister No problems noted. Social History Smoking/Tobacco Use Status: Current every day Tobacco Type: cigarettes Smoking packs per day: 2 Smoking cigarettes per day: 40.0 Tobacco: How many years used: 41 Quit status: considering quitting Alcohol Intake: former Drug use: Never Substance use type: does not use Household members: significant other Housing: apartment Number of Children: 3 Communication Needs: None Do you need help understanding health information?: Often Current gender identity: male What is your relationship status?: living with partner Panel score (0-1 are the most socially isolated patients): 1 What type of physical activity do you participate in: none Seatbelt use: always Drive intox or ride w/intox horse and wagon driver: No Working smoke detector in home: No Fire extinguisher in home: No Carbon monox detector in home: No Do you feel safe at home: Yes Do you feel safe in your relationship?: Yes Exam Const General: cooperative, healthy appearing, comfortable and no acute distress Orientation: alert, awake and oriented x3 HENMT Head: normal to inspection, normocephalic and atraumatic Mouth: moist mucous membranes Throat: posterior oropharynx normal Eyes Conjunctivae: conjunctivae normal Neck Neck: normal visual inspection, full ROM, trachea midline and supple Resp Effort & Inspection: normal respiratory effort and able to speak in complete sentences Auscultation: clear to auscultation bilaterally Cardio Rate: regular rate Rhythm: regular rhythm GI Inspection: normal to inspection and other (Obese) Palpation: soft, not firm, no guarding, not rigid and tender (Diffuse right side, worse RLQ, only to moderate palpation) not at McBurney's point and with no rebound tenderness Auscultation: normal bowel sounds Back/Spine/Pelvis Back: No back tenderness Skin General skin exam: no rashes or lesions noted Neuro General: patient alert, patient awake, moves all extremities and no focal motor deficits Motor: muscle tone normal throughout Sensory Exam: no sensory deficits noted Psych Appearance: grossly normal Mental Status: mental status grossly normal Course Vital Signs Vital signs: Vital Signs Temperature 36.4 C L 05/28/19 18:12 Pulse 89 05/28/19 18:12 Blood Pressure 138/78 05/28/19 18:12 Pulse Oximetry 98 05/28/19 18:12 Temperature 36.4 C L 05/28/19 18:12 Temperature Source Skin 05/28/19 18:12 Pulse 89 05/28/19 18:12 Respiratory Effort Non-Labored 05/28/19 18:17 Blood Pressure 138/78 05/28/19 18:12 Blood Pressure Position Sitting 05/28/19 18:12 Pulse Oximetry 98 05/28/19 18:12 Oxygen Delivery Method Room Air 05/28/19 18:12 Oxygen Flow Rate 0 05/28/19 18:12 Pain Level 8 05/28/19 18:12
[2019-05-28 18:39] LABS: Abs Immature Grans 0.19 k/cumm (0.0-0.09); Absolute Lymphocyte Count 3.36 k/cumm (1.2-3.4); Absolute Monocyte Count 1.05 k/cumm (0.11-0.7); Absolute Neutrophil Count 5.25 k/cumm (1.2-6.7); Eosinophils % 2.9; HCT 48.8 % (40.0-50.0); Immature Grans % 1.9 %; Lymphocytes % 32.8; Mean Corp. HGB Concentration 34.8 g/dL (32.0-36.0); Mean Corpuscular Hemoglobin 30.6 pg (27.0-33.0); Mean Corpuscular Volume 87.9 fL (80-95); Mean Platelet Volume 10.5 fL (8.0-11.0); Monocytes % 10.2; Neutrophils % 51.2; Platelet Count 228 x1000/uL (130-400); RBC 5.55 m/cumm (4.50-6.00); RBC Distribution Width 13.4 % (11.8-14.1); White Blood Cell Count 10.25 k/cumm (4.4-10.8)
[2019-05-28 18:54] LABS: ALT 45 U/L (16-63); AST 20 U/L (15-37); Alkaline Phosphatase 92 U/L (46-116); Anion Gap 9.9 mmol/L (3-11); BUN 17 mg/dL (7-18); Bilirubin, Total 0.3 mg/dL (0.2-1.0); CO2 24.1 mmol/L (21.0-32.0); CREATININE 1.38 mg/dL (0.70-1.30); Chloride 103 mmol/L (98-107); Glucose 116 mg/dL (74-106); Lipase 162 U/L (73-393); Potassium 4.3 mmol/L (3.5-5.1); Sodium 137 mmol/L (136-145); Total Protein 7.8 g/dL (6.4-8.2)
[2019-05-28] MEDS: Ketorolac 15 MG/ML VIAL IVP (19:11)
[2019-05-28] MEDS: Normal Saline 1,000 ML 1000 ML IV (19:11)
[2019-05-28 20:02] LABS: Bilirubin Negative (Negative); Blood Moderate (Negative); Clarity Clear (Clear); Glucose 500 mg/dL (Negative); Ketones Negative (Negative); Leukocyte Esterase Negative (Negative); Nitrite Negative (Negative); Urobilinogen 0.2 EU/dL (Up TO 0.2)
[2019-05-28 20:10] LABS: Bacteria Negative HPF (Negative); C & S Indicated? No; Casts Negative LPF (Negative); Crystals Negative HPF (Negative); Epithelial Cells Negative HPF (Negative); Mucus Negative (Negative); Other Cells Negative (Negative)
[2019-05-28 20:46] VITALS: BP 122/59; PULSE 74; RESP 16; TEMP 36.6; O2SAT 98
== END 2019-05-28 20:40 | disposition home or self-care (01) ==
PROVIDERS: Emergency Provider Physician Assistant; PCP Family Medicine
DX: R10.31 Right lower quadrant pain (principal); R31.9 Hematuria, unspecified; E11.22 Type 2 diabetes mellitus with diabetic chronic kidney disease; Z79.4 Long term (current) use of insulin; I12.9 Hypertensive chronic kidney disease with stage 1 through stage 4 chronic kidney disease, or unspecified chronic kidney disease; N18.3 Chronic kidney disease, stage 3 (moderate)
CPT/HCPCS: 80053; 83690; 96361; 96374; 96375; 99284; 81003; 81015; 85025; J1885; J2405

== ENCOUNTER 2019-08-23 16:07 | Emergency (ER) | payer MEDICARE, MEDICAID, SELFPAY ==
--- NOTE | 2019-08-23 16:12 | ED.GENADUL_ITS ---
Discharge Plan Disposition Patient Disposition: HOME Condition: Good Discharge Details Chief Complaint: Orthopedic Clinical Impression: Contusion Primary Care Provider: Garth Marroquin ED Provider: Eva Isbell Home Meds and New Rx's Prescriptions: Continued acetaminophen [Tylenol Extra Strength] 500 mg tablet 500 mg PO Q4H PRNRF: 0 aspirin 81 mg tablet,delayed release (DR/EC) 81 mg PO DAILY 90 Days Qty: 90 RF: 3 Jardiance 10 mg tablet 10 mg PO QAM Qty: 30 RF: 6 metformin 500 mg tablet extended release 24 hr 1,000 mg PO DAILY Qty: 180 RF: 3 clotrimazole 1 % ointment 1 applic TP BID Qty: 56.7 RF: 0 terbinafine HCl 250 mg tablet 250 mg PO DAILY Qty: 30 RF: 0 atorvastatin 20 mg tablet 20 mg PO DAILY Qty: 90 RF: 3 albuterol sulfate [Ventolin HFA] 90 mcg/actuation HFA aerosol inhaler 1 - 2 puff Inhalation Q4H PRN Qty: 1 RF: 0 omeprazole 40 mg capsule,delayed release(DR/EC) 40 mg PO DAILY Qty: 90 RF: 3 lisinopril 30 mg tablet 30 mg PO DAILY Qty: 90 RF: 3 amlodipine 2.5 mg tablet 2.5 mg PO DAILY Qty: 90 RF: 3 cholecalciferol (vitamin D3) [Vitamin D3] 50 mcg (2,000 unit) tablet 2,000 unit PO DAILY Qty: 90 RF: 3 Discharge Instructions Instructions: Contusion in Adults (ED) Additional Instructions: X-rays abnormality. Please encourage rest, ice, elevation. May continue with Tylenol and/or ibuprofen as needed for discomfort. Please monitor area for signs infection including redness, warmth, drainage, increased pain, fever/chills. If you develop these reddening/worsening symptoms to seek care urgently once again. Otherwise, please follow-up with primary care if pain has not resolved next week. Would also recommend a follow-up with database consultant. Referrals: Garth Marroquin DO [Primary Care Provider] - Discharge Data Discharge Date/Time-TO BE ENTERED AT DEPARTURE: 08/23/19 17:42 Medical Decision Making Patient is a pleasant 54-year-old male presents today with chief complaint of right lower extremity pain. He reports a prior to arrival he was unloading a stack of geraldo metal. States that this left from a truck and struck in the inferior aspect of the right lower extremity. Patient suffered ecchymosis and small abrasion. He was wearing long pants which occurred. He denies any sensory deficits. No other injuries from the incident. Has not had anything for his discomfort thus far. On exam, patient has a small area of ecchymosis She is a small area of bruising although no active bleeding is noted. He has full range of motion of the knee, ankle and toes. Sensation is intact. 2+ distal pulses. No pedal deformity. Pain is isolated to the area of ecchymosis anteriorly. Will give Tylenol and ibuprofen to help with discomfort. Since this was a significant mechanism of injury. We will obtain x-ray to evaluate for possible bony abnormality. Will give Tylenol and ibuprofen for discomfort. X-ray reviewed by radiologist: INDINGS: Bones/joints: The knee and ankle joints are intact. No fracture Soft tissues: Mild swelling of the pretibial soft tissues. IMPRESSION: No fracture. Discussed these findings with the patient. He will follow-up with primary care in 1 to 2 weeks if pain persist. He was given return precautions, in particular signs of infection. Patient is diabetic and did have a notably long poorly kempt toenails. I did advise follow-up with database consultant. He does state that he does typically follow-up with 1. Will apply Jerman wrap to help prevent swelling, will apply Jerman wrap. Encourage rest, ice, elevation. Tylenol and ibuprofen as needed for discomfort. All his questions or concerns were addressed and he is in agreement this plan. [facility] General Mode of arrival: ambulatory . Date/Time Provider Initiated Documentation: 08/23/19 16:12 . Limitations to Documentation: no limitations . Information obtained by: patient and RN notes reviewed . History of Present Andrea ku 54 year old M presents to the emergency department with the chief complaint of right lower extremity trauma, described as severe, with intensity rated at 8. Quality is described as aching, and is localized to the right and lower extremity. Patient reports no radiation. Patient started experiencing this hour(s) and it has been constant. Immobilization improves symptom(s), Movement worsens symptoms . Patient notes no other symptoms.. Patient did receive the following treatments prior to arrival, none Related Data Home Medications Medication Instructions Recorded Confirmed acetaminophen 500 mg tablet 500 mg PO Q4H PRN 10/26/17 08/23/19 clotrimazole 1 % topical ointment 1 applic TP BID #56.7 gm 09/06/18 08/23/19 atorvastatin 20 mg tablet 20 mg PO DAILY #90 tab 11/04/18 08/23/19 aspirin 81 mg tablet,delayed 81 mg PO DAILY 90 Days #90 tabec 01/07/19 08/23/19 release albuterol sulfate 90 mcg/actuation 1 - 2 puff INHALATION Q4H PRN #1 01/24/19 08/23/19 aerosol inhaler inhaler omeprazole 40 mg capsule,delayed 40 mg PO DAILY #90 cap 02/01/19 08/23/19 release lisinopril 30 mg tablet 30 mg PO DAILY #90 tab-cap 03/03/19 08/23/19 empagliflozin 10 mg tablet 10 mg PO QAM #30 tab 04/11/19 08/23/19 metformin 500 mg tablet,extended 1,000 mg PO DAILY #180 tab-cap 04/11/19 08/23/19 release 24 hr amlodipine 2.5 mg tablet 2.5 mg PO DAILY #90 tab-cap 06/13/19 08/23/19 cholecalciferol (vitamin D3) 50 2,000 unit PO DAILY #90 tab-cap 06/13/19 08/23/19 mcg (2,000 unit) tablet terbinafine HCl 250 mg tablet 250 mg PO DAILY #30 tab 07/19/19 08/23/19 Previous Rx's Medication Instructions Recorded clotrimazole 1 % topical ointment 1 applic TP BID #56.7 gm 09/06/18 atorvastatin 20 mg tablet 20 mg PO DAILY #90 tab 11/04/18 aspirin 81 mg tablet,delayed 81 mg PO DAILY 90 Days #90 tabec 01/07/19 release albuterol sulfate 90 mcg/actuation 1 - 2 puff INHALATION Q4H PRN #1 01/24/19 aerosol inhaler inhaler omeprazole 40 mg capsule,delayed 40 mg PO DAILY #90 cap 02/01/19 release lisinopril 30 mg tablet 30 mg PO DAILY #90 tab-cap 03/03/19 empagliflozin 10 mg tablet 10 mg PO QAM #30 tab 04/11/19 metformin 500 mg tablet,extended 1,000 mg PO DAILY #180 tab-cap 04/11/19 release 24 hr amlodipine 2.5 mg tablet 2.5 mg PO DAILY #90 tab-cap 06/13/19 cholecalciferol (vitamin D3) 50 2,000 unit PO DAILY #90 tab-cap 06/13/19 mcg (2,000 unit) tablet terbinafine HCl 250 mg tablet 250 mg PO DAILY #30 tab 07/19/19 Allergies Allergy/AdvReac Type Severity Reaction Status Date / Time celecoxib Allergy Intermediate Rash, Verified 08/23/19 16:20 urticaria naproxen Allergy Intermediate Itchy Welts Verified 08/23/19 16:20 prednisone AdvReac Unknown Upset Verified 08/23/19 16:20 stomach, fatigue General JAMES: 3 Review of Systems Constitutional Constitutional: Reports as per HPI, Denies chills, Denies fever(s), Denies headache(s) and Denies weakness ENT Ears, Nose, Mouth, and Throat: Denies headache(s) Cardiovascular Cardiovascular: Reports as per HPI Respiratory Respiratory: Reports as per HPI and Denies cough Musculoskeletal Musculoskeletal: Reports as per HPI and Denies tingling Integumentary/Breasts Skin/Breast: Reports as per HPI, Denies rash and Denies wounds Neurologic Neurologic: Reports as per HPI, Denies headache(s), Denies tingling, Denies paresthesias and Denies weakness [facility] Social History Smoking/Tobacco Use Status: Current every day Tobacco Type: cigarettes Smoking packs per day: 2 Smoking cigarettes per day: 40.0 Tobacco: How many years used: 41 Quit status: considering quitting Alcohol Intake: former Drug use: Never Substance use type: does not use Household members: significant other Housing: apartment Number of Children: 3 Communication Needs: None Do you need help understanding health information?: Often Current gender identity: male What is your relationship status?: living with partner Panel score (0-1 are the most socially isolated patients): 1 What type of physical activity do you participate in: none Seatbelt use: always Drive intox or ride 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: No Working smoke detector in home: No Fire extinguisher in home: No Carbon monox detector in home: No Do you feel safe at home: Yes Do you feel safe in your relationship?: Yes Exam Const General: cooperative, healthy appearing, comfortable, no acute distress, well developed and well groomed Nutritional Appearance: average body habitus and well nourished Orientation: alert and awake Resp Effort & Inspection: normal respiratory effort, able to speak in complete sentences and no respiratory distress Cardio Rate: regular rate Rhythm: regular rhythm Skin General skin exam: ecchymosis (anterior RLE) Neuro General: patient alert and patient awake Cognition: normal cognition Speech: speech normal Gait: normal gait Motor: muscle tone normal throughout Sensory Exam: no sensory deficits noted Extrem Upper/lower leg/hip images: 1. Area of ecchymosis and small abrasion. Scant amount of swelling. Full range of motion of the knee, ankle, toes. Achilles tendon is intact. He is able to extend and flex against resistance. 2+ distal pulses. Sensation is intact. No palpable deformity., Psych Appearance: grossly normal and well kempt Mental Status: mental status grossly normal Speech and Movement: speech and movement normal
[2019-08-23 16:13] VITALS: BP 126/53; PULSE 84; RESP 18; TEMP 36.7; O2SAT 97
--- NOTE | 2019-08-23 16:30 | DI.RAD_ITS ---
EXAM: XR TIB/FIB LT CLINICAL HISTORY: direct trauma to inferior 1/3 tib. TECHNIQUE: 2D digital imaging was performed. COMPARISON: No exams were available for comparison FINDINGS: BONES: No acute fracture is present. No bony destructive lesion is seen. Visualized portion of knee a nd ankle joints are unremarkable. SOFT TISSUE: Normal. IMPRESSION: Unremarkable radiographs of the right tibia and fibula. DATA REPOSITORY: RADIATION DOSE DELIVERED:
[2019-08-23] MEDS: Acetaminophen 500 MG TAB 1000 MG PO (16:37)
[2019-08-23] MEDS: Ibuprofen 600 MG TAB PO (16:37)
--- NOTE | 2019-08-23 17:16 | DI.VRAD_ITS ---
PROCEDURE INFORMATION: Exam: XR Right Tibia and Fibula Exam date and time: 08/23/2019 4:45 PM Age: 54 years old Clinical indication: Other: Direct trauma to inferior 1/3 tib TECHNIQUE: Imaging protocol: XR Right tibia and fibula. Views: 2 views. COMPARISON: No relevant prior studies available. FINDINGS: Bones/joints: The knee and ankle joints are intact. No fracture Soft tissues: Mild swelling of the pretibial soft tissues. IMPRESSION: No fracture. Dictated and Authenticated by: Lefty Schroeder MD. Ordering:JOANNA Velasquez MD
== END 2019-08-23 17:42 | disposition home or self-care (01) ==
PROVIDERS: Emergency Provider Physician Assistant; PCP Family Medicine
DX: S80.11XA Contusion of right lower leg, initial encounter (principal); W20.8XXA Other cause of strike by thrown, projected or falling object, initial encounter; E11.9 Type 2 diabetes mellitus without complications; Z79.84 Long term (current) use of oral hypoglycemic drugs
CPT/HCPCS: 90471; 99284; 73590

== ENCOUNTER 2019-08-29 15:06 | Outpatient (REF) | payer MEDICARE, MEDICAID, SELFPAY ==
[2019-08-29 19:31] LABS: ALT 35 U/L (16-63); Alkaline Phosphatase 85 U/L (46-116); Anion Gap 12.4 mmol/L (3-11); BUN 18 mg/dL (7-18); Bilirubin, Total 0.3 mg/dL (0.2-1.0); CO2 22.6 mmol/L (21.0-32.0); CREATININE 1.35 mg/dL (0.70-1.30); Calcium 8.6 mg/dL (8.5-10.1); Chloride 104 mmol/L (98-107); Estimated GFR 54.67 (mL/min/1.73m2); Glucose 119 mg/dL (74-106); Potassium 4.2 mmol/L (3.5-5.1); Sodium 139 mmol/L (136-145)
[2019-08-29 20:14] LABS: AST 32 U/L (15-37)
== END 2019-08-29 15:26 ==
LOC: LBN 15:06
PROVIDERS: PCP Family Medicine; Visit Provider Family Medicine
DX: B35.1 Tinea unguium (principal); R55 Syncope and collapse
CPT/HCPCS: 80053

== ENCOUNTER 2019-09-17 09:07 | Observation (INO) | payer MEDICARE, MEDICAID, SELFPAY ==
[2019-09-17] VITALS (27 sets, daily range): BP systolic 109–144; BP diastolic 55–79; PULSE 53–65; RESP 16–30; TEMP 35.9–36.6; O2SAT 96–100
--- NOTE | 2019-09-17 09:00 | RT.EKG_ITS ---
APPROVED REPORT Exam: Resting ECG Patient Location: E HR:62 bpm ECG Measurements Heart Rate [address] 142 P 2 QRSd 91 QRS 13 QT 405 T 23 QTc 412 <Conclusion> Sinus rhythm..rate 62, narro qrs, no st elevation
--- NOTE | 2019-09-17 09:12 | W.ED.GENAD ---
Discharge Plan Disposition Patient Disposition: [facility] INPATIENT Condition: Stable Discharge Details Chief Complaint: Chest Pain Clinical Impression: Chest pain Admit Date/Time: 09/17/19 13:06 Admit Provider: Michael Merida Attending Provider: Michael Merida Primary Care Provider: Garth Marroquin ED Provider: Eva Isbell Discharge Data Discharge Date/Time-TO BE ENTERED AT DEPARTURE: 09/17/19 13:48 Medical Decision Making Patient is a pleasant 54-year-old gentleman presents due to complaint of chest pain. Past medical history pertinent for smoking, CKD, diabetes, hyperlipidemia, hypertension, GERD, nonobstructive CAD, hyperlipidemia, ELIU. Patient has had cardiac catheterization in 2018, states not stents were placed. Patient reports the pain started at 0700 when at rest. He states that he awoke around 4 AM, was feeling normally. States the pain started suddenly and has been persistent since that time. Describes the pain as a ache and rates the pain at a 5 out of 10. States he has had pain like this historically. Has not noted any exacerbating or improving factors. States that he does feel short of breath. Patient denies any recent travel. No time of being sedentary. Patient is a active smoker and has a 40+ pack year history. Patient reports that he has chronic smoker's cough but no change in this recently. Denies any nausea vomiting. Pain does not radiate. Denies any pain to the back. No abdominal discomfort. Is not noted any swelling or pain in this leg. Review shows nuclear med stress test completed on 01/10/2019. At that time, is still patient was noted to have medically damaged exercise capacity for age. No evidence of ischemia on ECG. No evidence of ischemia on imaging. EF of 45. Echo completed on the same day significant for mild thickening of the posterior wall of the left ventricle, septal wall thickening slightly increased. Normal LV wall motion. EF estimated at that time 36 to 65%. Trivial mitral regurgitation. Trivial tricuspid regurgitation. Aortic root mildly dilated. Ascending aorta mildly dilated at 3.49. Advise no significant change compared to echo completed in 2014. On exam, patient appears nontoxic. His vital signs are stable. No abnormalities in cardiac auscultation. He does have some discomfort with palpation near over the mid sternum. Lungs are clear. Abdomen is benign. No calf tenderness, no pedal edema. He is 2+ distal pulses in all extremities. EKG was reviewed by Dr. Del Rio. Patient is in a normal sinus rhythm with a rate of 67. Patient does have peaked T waves but this is unchanged from previous. He also has J-point elevation in leads II, III and aVF but this is unchanged from previous as well. No acute ischemic changes noted. Concern for potential ACS. Patient will be given sublingual nitroglycerin. Also give aspirin. Patient will remain on the monitor. Will obtain troponin. Given the patient's shortness of breath, will also obtain a BNP. Also consider GI sources patient does have a history of acid reflux, musculoskeletal pain from gardening yesterday. Also considered pulmonary source given patient's vital signs I do find this less likely. FINDINGS: Lungs: Unremarkable. No consolidation. Pleural space: Unremarkable. No pleural effusion. No pneumothorax. Heart/Mediastinum: Unremarkable. No cardiomegaly. Bones/joints: Unremarkable. IMPRESSION: No acute findings. Labs reviewed. CBC had significant anemia and. Normal coags. CMP significant for creatinine of 1.34 which is baseline for the patient. Initial troponin is less than 0.05. Plan for second. Patient reports that his pain is completely subsided after sublingual nitro. I am concerned that the patient has had this aortic root dilatation historically. Plan to obtain CT to evaluate for potential PE versus aortic pathology. Patient discussed risk/benefits of further imaging. He was understanding and wished to proceed. CT reviewed by radiologist: FINDINGS: Pulmonary arteries: Normal. No pulmonary emboli. Aorta: No aortic aneurysm. No aortic dissection. Lungs: Redemonstrated mild upper lobe emphysema. Minor scarring right lower lobe is again seen. No focal airspace consolidations. No suspicious nodules or masses. Pleural space: Unremarkable. No pneumothorax. No pleural effusion. Heart: No cardiomegaly. No pericardial effusion. Lymph nodes: No enlarged lymph nodes. Liver: Redemonstrated hepatic steatosis. Kidneys and ureters: Redemonstrated benign appearing renal cysts. Bones/joints: No acute fracture. Soft tissues: Redemonstrated mild right greater than left gynecomastia. IMPRESSION: 1. No pulmonary emboli are seen. 2. Redemonstrated incidental findings as described above. Discussed these findings with the patient. Discussed incidentals once again. While patient remains asymptomatic and has reassuring work up thus far, his HEART score is 5. With his history patient should stay to continue to be monitored further. I discussed this iwth the patient. He agrees to admission. He was given a 500cc bolus and sublingual nitro thus far. Nitro lead to full resolution of symptoms with no return. Discussed admission with Dr. Merida who agrees admission. He has requested that holding orders be placed. HPI General Mode of arrival: ambulatory. Date/Time Provider Initiated Documentation: 09/17/19 09:11. Limitations to Documentation: no limitations. Information obtained by: patient and RN notes reviewed. History of Present Illness 54 year old M presents to the emergency department with the chief complaint of chest pain, described as moderate, with intensity rated at 5. Quality is described as aching, and is localized to the chest. Patient reports no radiation. Patient started experiencing this hour(s) and it has been constant. No relieving factors improve symptom(s), No exacerbating factors reported . Patient notes no other symptoms.. Patient did receive the following treatments prior to arrival, none Related Data Home Medications Medication Instructions Recorded Confirmed acetaminophen 500 mg tablet 500 mg PO Q4H PRN 10/26/17 09/17/19 clotrimazole 1 % topical ointment 1 applic TP BID #56.7 gm 09/06/18 08/23/19 atorvastatin 20 mg tablet 20 mg PO DAILY #90 tab 11/04/18 09/17/19 aspirin 81 mg tablet,delayed 81 mg PO DAILY 90 Days #90 tabec 01/07/19 09/17/19 release albuterol sulfate 90 mcg/actuation 1 - 2 puff INHALATION Q4H PRN #1 01/24/19 09/17/19 aerosol inhaler inhaler omeprazole 40 mg capsule,delayed 40 mg PO DAILY #90 cap 02/01/19 09/17/19 release lisinopril 30 mg tablet 30 mg PO DAILY #90 tab-cap 03/03/19 09/17/19 empagliflozin 10 mg tablet 10 mg PO QAM #30 tab 04/11/19 09/17/19 metformin 500 mg tablet,extended 1,000 mg PO DAILY #180 tab-cap 04/11/19 09/17/19 release 24 hr amlodipine 2.5 mg tablet 2.5 mg PO DAILY #90 tab-cap 06/13/19 09/17/19 cholecalciferol (vitamin D3) 50 2,000 unit PO DAILY #90 tab-cap 06/13/19 09/17/19 mcg (2,000 unit) tablet blood sugar diagnostic #100 each 08/29/19 08/29/19 lancets 28 gauge #25 each 08/29/19 08/29/19 Previous Rx's Medication Instructions Recorded clotrimazole 1 % topical ointment 1 applic TP BID #56.7 gm 09/06/18 atorvastatin 20 mg tablet 20 mg PO DAILY #90 tab 11/04/18 aspirin 81 mg tablet,delayed 81 mg PO DAILY 90 Days #90 tabec 01/07/19 release albuterol sulfate 90 mcg/actuation 1 - 2 puff INHALATION Q4H PRN #1 01/24/19 aerosol inhaler inhaler omeprazole 40 mg capsule,delayed 40 mg PO DAILY #90 cap 02/01/19 release lisinopril 30 mg tablet 30 mg PO DAILY #90 tab-cap 03/03/19 empagliflozin 10 mg tablet 10 mg PO QAM #30 tab 04/11/19 metformin 500 mg tablet,extended 1,000 mg PO DAILY #180 tab-cap 04/11/19 release 24 hr amlodipine 2.5 mg tablet 2.5 mg PO DAILY #90 tab-cap 06/13/19 cholecalciferol (vitamin D3) 50 2,000 unit PO DAILY #90 tab-cap 06/13/19 mcg (2,000 unit) tablet blood sugar diagnostic #100 each 08/29/19 Allergies Allergy/AdvReac Type Severity Reaction Status Date / Time celecoxib Allergy Intermediate Rash, Verified 09/17/19 09:19 urticaria naproxen Allergy Intermediate Itchy Welts Verified 09/17/19 09:19 prednisone AdvReac Unknown Upset Verified 09/17/19 09:19 stomach, fatigue General JAMES: 3 Review of Systems Constitutional Constitutional: Reports as per HPI, Denies chills, Denies fever(s), Denies headache(s), Denies lethargy and Denies poor appetite Eyes Eyes: Denies change in vision ENT Ears, Nose, Mouth, and Throat: Denies dizziness and Denies headache(s) Cardiovascular Cardiovascular: Reports as per HPI, Denies dyspnea and Denies dyspnea on exertion Respiratory Respiratory: Reports as per HPI, Denies chest congestion, Denies cough, Denies pain on inspiration, Denies pain with cough, Denies dyspnea, Denies dyspnea on exertion and Denies wheezing Gastrointestinal Gastrointestinal: Reports as per HPI, Denies abdominal pain, Denies diarrhea, Denies nausea and Denies vomiting Genitourinary Genitourinary: Denies system reviewed and no additional complaints, except as documented (denies change in urinary habits) Musculoskeletal Musculoskeletal: Reports as per HPI and Denies back pain Integumentary/Breasts Skin/Breast: Reports as per HPI and Denies rash Neurologic Neurologic: Reports as per HPI, Denies dizziness and Denies headache(s) Allergic/Immunologic Allergic/Immunologic: Denies wheezing [facility] Medical History Abdominal obesity (Acute) Abnormal stress test (Chronic) Chronic kidney disease (CKD), stage III (moderate) (Chronic 05/26/16) ? due to DM or to hypertension Complex regional pain syndrome (Chronic 06/27/13) Diabetes mellitus type 2 in obese (Chronic 02/19/16) presented with polyuria, elevated FS on friend's glucometer, A1c 14 at [facility] ER Essential hypertension (Chronic) goal <140/85 Gastroesophageal reflux disease without esophagitis (Chronic 12/05/11) ER 11/2014 rx PPI Mixed hyperlipidemia (Chronic 02/16/01) low HDL 27; SL HIGH TG; CV RISK (12/2016): 27%: rec Statin Obesity, unspecified (Chronic 12/05/11) 1993 165#; 180 gives BMI <30 Obstructive sleep apnea (Chronic 03/10/16) [id number], severe in REM sleep Sleep study PSG on 03/10/16: AHI 20.1; SPO2 shailesh 82%; CPAP begun 06/08/16. with improvement in fatigue 06/29/16 restudied higher pressures needed assoc. with treatment of central sleep apnea Paresthesias (Resolved 10/27/16) nocturnal, bilateral, R>L, Median nerve, probable CTS Sessile colonic polyp (Inactive 09/26/14) @ transverse colon, sigmoid Tobacco use disorder (Chronic) Quit 2019 Vitamin D deficiency (Chronic) Surgical History Cardiac Cath (Chronic 03/24/17) [facility] [place] Colonoscopy - IV Sedation (Inactive 09/26/14) [facility] Perri, serrated polyp, fragments of sessile serrated adenoma Cystoscopy w/ joe retrograde pyelogram (Inactive 03/01/15) Extraction of cataract (Chronic 12/17/16) Left Radha Manzo; Natividad 11/19/16 Family History Father , lung cancer at age 67. Essential hypertension Neoplasm Mother Diabetes Essential hypertension Sister No problems noted. Sister No problems noted. Social History Smoking/Tobacco Use Status: Current every day Tobacco Type: cigarettes Smoking packs per day: 2 Smoking cigarettes per day: 40.0 Tobacco: How many years used: 41 Quit status: considering quitting Alcohol Intake: former Drug use: Never Substance use type: does not use Household members: significant other Housing: apartment Number of Children: 3 Communication Needs: None Do you need help understanding health information?: Often Current gender identity: male What is your relationship status?: living with partner Panel score (0-1 are the most socially isolated patients): 1 What type of physical activity do you participate in: none Seatbelt use: always Drive intox or ride w/intox superintendent drivers: No Working smoke detector in home: No Fire extinguisher in home: No Carbon monox detector in home: No Do you feel safe at home: Yes Do you feel safe in your relationship?: Yes Exam Const General: cooperative, healthy appearing, comfortable, no acute distress and well developed Nutritional Appearance: well nourished and obese Orientation: alert, awake and oriented x3 HENMT Head: normal to inspection Ears: hearing grossly normal bilaterally Mouth: moist mucous membranes Chest Chest: normal inspection of the chest, normal palpation of entire chest wall, no crepitus and tenderness (no focal pain, discomfort with AP pressure applied) Resp Effort & Inspection: normal respiratory effort, able to speak in complete sentences and no respiratory distress Auscultation: clear to auscultation bilaterally, no rales, no rhonchi and no wheezes Cardio Rate: regular rate Rhythm: regular rhythm Heart Sounds: S1 normal and S2 normal GI Inspection: normal to inspection, no edema and non-distended Palpation: soft, no hepatosplenomegaly, not firm, no guarding, not rigid and nontender Auscultation: normal bowel sounds Back/Spine/Pelvis Back: no CVA tenderness Thoracic/Lumbar Spine: thoracic and lumbar spine normal to inspection Skin General skin exam: no rashes or lesions noted Trauma: no lacerations or abrasions Neuro General: patient alert, patient awake and patient oriented x3 Cognition: normal cognition Speech: speech normal Gait: normal gait Extrem General: normal to inspection, capillary refill normal, no pedal edema, no calf tenderness and normal gait Psych Appearance: grossly normal and well kempt Mental Status: mental status grossly normal Speech and Movement: speech and movement normal
[2019-09-17 09:25] LABS: Abs Immature Grans 0.19 10^3/uL (0.0-0.06); Absolute Basophil Count 0.06 10^3/uL (0.0-0.2); Absolute Eosinophil Count 0.22 10^3/uL (0.0-0.7); Absolute Lymphocyte Count 2.44 10^3/uL (1.2-3.4); Absolute Monocyte Count 0.92 10^3/uL (0.1-0.8); Basophils % 0.7; Eosinophils % 2.5; HCT 48.5 % (40.0-50.0); HGB 16.3 g/dL (13.5-17.5); Immature Grans % 2.2; Lymphocytes % 28.3; MCH 29.6 pg (27.0-33.0); MCHC 33.6 % (32.0-36.0); MPV 10.8 fL (8.0-11.0); Monocytes % 10.7; Neutrophils % 55.6; Platelet Count 205 10^3/uL (130-400); RBC 5.51 10^6/uL (4.36-5.78); RDW 13.5 % (11.8-14.1); RDW-SD 43.5 fL; WBC 8.63 10^3/uL (4.4-10.8)
[2019-09-17] MEDS: Aspirin 81 MG CHEW 162 MG CH (09:29)
[2019-09-17 09:41] LABS: PTT Activated 26.5 sec (21.0-31.4); Prothrombin Time 9.7 sec (9.3-11.0)
[2019-09-17 09:42] LABS: ALT 42 U/L (16-63); AST 22 U/L (15-37); Albumin 3.8 g/dL (3.4-5.0); Alkaline Phosphatase 96 U/L (46-116); Anion Gap 9.8 mmol/L (3-11); BUN 17 mg/dL (7-18); Bilirubin, Total 0.4 mg/dL (0.2-1.0); CO2 24.2 mmol/L (21.0-32.0); CREATININE 1.34 mg/dL (0.70-1.30); Calcium 8.8 mg/dL (8.5-10.1); Chloride 103 mmol/L (98-107); Estimated GFR 55.14 (mL/min/1.73m2); Glucose 114 mg/dL (74-106); Magnesium 1.9 mg/dL (1.8-2.4); Sodium 137 mmol/L (136-145); Total Protein 7.3 g/dL (6.4-8.2)
[2019-09-17 09:44] LABS: Troponin I < 0.05 ng/mL (<0.06)
[2019-09-17 10:01] LABS: NT-proBNP 11 pg/mL (<300)
--- NOTE | 2019-09-17 10:04 | DI.RAD_ITS ---
EXAM: XR CHEST 2V PA LATERAL CLINICAL HISTORY: CP TECHNIQUE: 2D digital imaging was performed. COMPARISON: CR XR CHEST 2V PA LATERAL from 01/24/2019 FINDINGS: The heart is not enlarged. The lungs are clear and well expanded. No pleural effusion seen. Mediastin al contours appear intact. IMPRESSION: Normal chest
--- NOTE | 2019-09-17 10:08 | DI.VRAD_ITS ---
PROCEDURE INFORMATION: Exam: XR Chest, 2 Views Exam date and time: 09/17/2019 10:02 AM Age: 54 years old Clinical indication: Other: Cp TECHNIQUE: Imaging protocol: XR of the chest Views: 2 views. COMPARISON: CR XR CHEST 2V PA LATERAL 01/24/2019 3:34 PM FINDINGS: Lungs: Unremarkable. No consolidation. Pleural space: Unremarkable. No pleural effusion. No pneumothorax. Heart/Mediastinum: Unremarkable. No cardiomegaly. Bones/joints: Unremarkable. IMPRESSION: No acute findings. Dictated and Authenticated by: Judd Cox MD. Ordering:JOANNA Velasquez MD
[2019-09-17] MEDS: Omnipaque 350 MG/ML 100 ML BTL IJ (11:16)
[2019-09-17] MEDS: Normal Saline - Diluent 50 ML VIAL IV (11:17)
--- NOTE | 2019-09-17 11:28 | DI.CT_ITS ---
EXAM: CT CHEST PE CTA CLINICAL HISTORY: SOB, central CP TECHNIQUE: COMPARISON: CT CT ABDOMEN PELVIS W from 03/09/2019 FINDINGS: CT angiography of the chest was performed with intravenous infusion of 100 cc of Omnipaque 350. No evidence of pulmonary embolic disease. No thoracic aortic dissection or aneurysm. No mediastinal adenopathy. Mild cardiomegaly noted. Lungs are predominantly clear some right-sided scarring. Tracheobronchial tree appears. Images obtained through the upper abdomen show hepatic steatosis and unremarkable appearance of visua lized portions of spleen adrenals and kidneys with incidental renal cysts again noted. IMPRESSION: No evidence of pulmonary embolic disease. No evidence of acute process.
[2019-09-17] MEDS: Lactated Ringers 500 ML IV (11:40)
--- NOTE | 2019-09-17 12:00 | RT.EKG_ITS ---
APPROVED REPORT Exam: Resting ECG Patient Location: E HR:54 bpm ECG Measurements Heart Rate 54 AXIS W[place] 150 P 20 QRSd 92 QRS 25 QT 427 T 26 QTc 403 <Conclusion> Sinus bradycardia, rate 54, no st elevation
--- NOTE | 2019-09-17 12:07 | DI.VRAD_ITS ---
PROCEDURE INFORMATION: Exam: CT Angiography Chest With Contrast Exam date and time: 09/17/2019 11:02 AM Age: 54 years old Clinical indication: Other: Mid sternal chest pain; Patient HX: Midsternal chest pain since this morning, no HX of pe or dvt. TECHNIQUE: Imaging protocol: Computed tomographic angiography of the chest with intravenous contrast. 3D rendering: MIP and/or 3D reconstructed images were created by the technologist. Radiation optimization: All CT scans at this facility use at least one of these dose optimization techniques: automated exposure control; mA and/or kV adjustment per patient size (includes targeted exams where dose is matched to clinical indication); or iterative reconstruction. Contrast material: OMNIPAQUE 350; Contrast volume: 100 ml; Contrast route: INTRAVENOUS (IV); COMPARISON: CT THORAX CTA 01/08/2019 11:00 PM FINDINGS: Pulmonary arteries: Normal. No pulmonary emboli. Aorta: No aortic aneurysm. No aortic dissection. Lungs: Redemonstrated mild upper lobe emphysema. Minor scarring right lower lobe is again seen. No focal airspace consolidations. No suspicious nodules or masses. Pleural space: Unremarkable. No pneumothorax. No pleural effusion. Heart: No cardiomegaly. No pericardial effusion. Lymph nodes: No enlarged lymph nodes. Liver: Redemonstrated hepatic steatosis. Kidneys and ureters: Redemonstrated benign appearing renal cysts. Bones/joints: No acute fracture. Soft tissues: Redemonstrated mild right greater than left gynecomastia. IMPRESSION: 1. No pulmonary emboli are seen. 2. Redemonstrated incidental findings as described above. Dictated and Authenticated by: Judd Cox MD. Ordering:JOANNA Velasquez MD
[2019-09-17 12:41] LABS: Troponin I < 0.05 ng/mL (<0.06)
[2019-09-17] MEDS: Nicotine 21 MG/24 HR PATCH TD (12:51)
--- NOTE | 2019-09-17 13:30 | RT.EKG_ITS ---
APPROVED REPORT Exam: Resting ECG Patient Location: I HR:56 bpm ECG Measurements Heart Rate 56 AXIS GA 170 P 14 QRSd 93 QRS 27 QT 429 T 22 QTc 414 <Conclusion> Sinus bradycardia.rate 56, no st elevation
--- NOTE | 2019-09-17 14:17 | NUR.NOTE ---
Nursing Note: Attempted to call friend Junie at the number listed- answered by a female who stated she wasn't Junie and not to call back. MS CC aware, as pt had requested we call his significant other upon admission.
--- NOTE | 2019-09-17 16:00 | RT.EKG_ITS ---
APPROVED REPORT Exam: Resting ECG Patient Location: I HR:58 bpm ECG Measurements Heart Rate 58 AXIS MN 149 P -6 QRSd 89 QRS 26 QT 404 T 31 QTc 397 <Conclusion> Sinus bradycardia...rate< 60
--- NOTE | 2019-09-17 16:14 | HPE_ITS ---
Date of service: 09/17/19 Time of Service: 16:14 Assessment and Plan Assessment and plan (1) Chest pain: Status: Acute Assessment and plan: EKG and troponins normal. Non-cardiac? Myofascial? Cont to monitor troponin. Telemetry. Multiple risk factors. Prn nitro. Qualifiers: Chest pain type: unspecified Qualified Code(s): R07.9 - Chest pain, unspecified (2) Tobacco use disorder: Status: Chronic Assessment and plan: encourage cessation. Nitropatch in place. (3) Type 2 diabetes mellitus: Status: Chronic Assessment and plan: Hold home oral meds Consistent carb diet (4) Obesity, unspecified: Status: Chronic Assessment and plan: Risk factor for CAD Qualifiers: Obesity type: due to excess calories Obesity classification: adult class 2 (BMI 35 - 39.9) Serious obesity comorbidity presence: with serious comorbidity (5) Obstructive sleep apnea: Status: Chronic Assessment and plan: Risk factor for CAD / PR (6) Mixed hyperlipidemia: Status: Chronic Assessment and plan: Cont statin. Heart Healthy diet (7) Gastroesophageal reflux disease without esophagitis: Status: Chronic Assessment and plan: On Prilosec. He denies that the current CP is similar to any previous reflux pain/sx. (8) Essential hypertension: Status: Chronic Assessment and plan: Currently controlled. Cont amlodipine and lisinopril. Monitor (9) Chronic kidney disease (CKD), stage III (moderate): Status: Chronic Assessment and plan: Cr 1.34. Was 1.38 on 05/28/2019, 1.23 on 03/09/2019. Monitor. Encourage hydration. Given IV fluid bolus. History of Present Illness History of Present Illness Chief Complaint: Chest pain Narrative: This is a 54 yo male with significant PMH of DM2, HTN, HLD, nonobstructive CAD,CKD, tobacco abuse, GERD, ELIU. He presented with c/o L sided chest pain, onset at 0700 AM. He had woken at 0400 AM and was feeling normal. He was at rest. The pain did not radiate. Pain described as an ache and rated 5 out of 10. He has had similar pain in the past. He did endorse some shortness of air. No diaphoresis or palpitations. No N/V. NM cardiac stress test on 01/10/19 was nonischemic. EF of 45%. Echo on same day showed mild thickening of ostgerior wall of left ventricle, septal wall thickening. EKG in ED was negative for ischemic findings. Troponin negative x 2; 3rd troponin ordered SL nitroglycerine given on presentation and his pain resolved. At time of arrival on the med-surg unit and my evaluation the CP had returned. He did gardent the day before admission and has a stiff, tender posterior neck. Palpation of the chest wall was equivocal; when asked if it hurt when compressed he said not really. Review of Systems All systems reviewed & are unremarkable except as noted in HPI and below [facility] Medical History Abdominal obesity (Acute) Abnormal stress test (Chronic) Chronic kidney disease (CKD), stage III (moderate) (Chronic 05/26/16) ? due to DM or to hypertension Complex regional pain syndrome (Chronic 06/27/13) Diabetes mellitus type 2 in obese (Chronic 02/19/16) presented with polyuria, elevated FS on friend's glucometer, A1c 14 at [facility] ER Essential hypertension (Chronic) goal <140/85 Gastroesophageal reflux disease without esophagitis (Chronic 12/05/11) ER 11/2014 rx PPI Mixed hyperlipidemia (Chronic 02/16/01) low HDL 27; SL HIGH TG; CV RISK (12/2016): 27%: rec Statin Obesity, unspecified (Chronic 12/05/11) 1993 165#; 180 gives BMI <30 Obstructive sleep apnea (Chronic 03/10/16) [id number], severe in REM sleep Sleep study PSG on 03/10/16: AHI 20.1; SPO2 shailesh 82%; CPAP begun 06/08/16. with improvement in fatigue 06/29/16 restudied higher pressures needed assoc. with treatment of central sleep apnea Paresthesias (Resolved 10/27/16) nocturnal, bilateral, R>L, Median nerve, probable CTS Sessile colonic polyp (Inactive 09/26/14) @ transverse colon, sigmoid Tobacco use disorder (Chronic) Quit 2019 Vitamin D deficiency (Chronic) Surgical History [place]24/17[place] [facility] [place] (Inactive 09/26/14) [facility] Perri, serrated polyp, fragments of sessile serrated adenoma Cystoscopy w/ joe retrograde pyelogram (Inactive 03/01/15) Extraction of cataract (Chronic 12/17/16) Left Radha Manzo; Natividad 11/19/16 Family History Father , lung cancer at age 67. Essential hypertension Neoplasm Mother Diabetes Essential hypertension Sister No problems noted. Sister No problems noted. Social History Smoking/Tobacco Use Status: Current every day Tobacco Type: cigarettes Smoking packs per day: 2 Smoking cigarettes per day: 40.0 Tobacco: How many years used: 41 Quit status: considering quitting Alcohol Intake: former Drug use: Never Substance use type: does not use Household members: significant other Housing: apartment Number of Children: 3 Communication Needs: None Do you need help understanding health information?: Often Current gender identity: male What is your relationship status?: living with partner Panel score (0-1 are the most socially isolated patients): 1 What type of physical activity do you participate in: none Seatbelt use: always Drive 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 Working smoke detector in home: No Fire extinguisher in home: No Carbon monox detector in home: No Do you feel safe at home: Yes Do you feel safe in your relationship?: Yes Meds Home Medications and Allergies Home Medications Medication Instructions Recorded Confirmed Type acetaminophen 500 mg tablet 500 mg PO Q4H PRN 10/26/17 09/17/19 History clotrimazole 1 % topical ointment 1 applic TP BID #56.7 gm 09/06/18 08/23/19 Rx atorvastatin 20 mg tablet 20 mg PO DAILY #90 tab 11/04/18 09/17/19 Rx aspirin 81 mg tablet,delayed 81 mg PO DAILY 90 Days #90 tabec 01/07/19 09/17/19 Rx release albuterol sulfate 90 mcg/actuation 1 - 2 puff INHALATION Q4H PRN #1 01/24/19 09/17/19 Rx aerosol inhaler inhaler omeprazole 40 mg capsule,delayed 40 mg PO DAILY #90 cap 02/01/19 09/17/19 Rx release lisinopril 30 mg tablet 30 mg PO DAILY #90 tab-cap 03/03/19 09/17/19 Rx empagliflozin 10 mg tablet 10 mg PO QAM #30 tab 04/11/19 09/17/19 Rx metformin 500 mg tablet,extended 1,000 mg PO DAILY #180 tab-cap 04/11/19 0 Rx release 24 hr amlodipine 2.5 mg tablet 2.5 mg PO DAILY #90 tab-cap 06/13/19 09/17/19 Rx cholecalciferol (vitamin D3) 50 2,000 unit PO DAILY #90 tab-cap 06/13/19 09/17/19 Rx mcg (2,000 unit) tablet blood sugar diagnostic #100 each 08/29/19 08/29/19 Rx lancets 28 gauge #25 each 08/29/19 08/29/19 History Allergies Allergy/AdvReac Type Severity Reaction Status Date / Time celecoxib Allergy Intermediate Rash, Verified 09/17/19 09:19 urticaria naproxen Allergy Intermediate Itchy Welts Verified 09/17/19 09:19 prednisone AdvReac Unknown Upset Verified 09/17/19 09:19 stomach, fatigue Exam Narrative Exam Narrative: Lying in bed. Holding neck stiffly. Const General: cooperative and no acute distress Nutritional Appearance: obese Orientation: alert and oriented x3 Eyes General: appearance normal, both eyes and all related structures Sclera: sclerae normal Neck Neck: normal visual inspection, no JVD and other (tenderness in left posterior neck. Decreased ROM d/t discomfort) Chest Chest: normal inspection of the chest and other (No overt tenderness with compression) Resp Effort & Inspection: normal respiratory effort Auscultation: clear to auscultation bilaterally and diminished lung sounds Cardio Jugular venous pressure: no JVD Rate: regular rate Rhythm: regular rhythm Heart Sounds: S1 normal and S2 normal GI Inspection: obesity Palpation: soft Auscultation: normal bowel sounds Skin General skin exam: no rashes or lesions noted Neuro General: moves all extremities Cognition: normal cognition Extrem General: no clubbing, cyanosis or edema Psych Appearance: grossly normal Speech and Movement: speech and movement normal Mood: congruent mood Affect: blunted Attitude: cooperative Results Labs Result diagrams: 09/17/19 09:15 09/17/19 09:15 Labs: Laboratory Results - last 24 hr 09/17/19 09/17/19 09/17/19 09:15 09:15 09:15 WBC 8.63 RBC 5.51 Hgb 16.3 Hct 48.5 MCV 88.0 MCH 29.6 MCHC 33.6 RDW 13.5 Plt Count 205 MPV 10.8 Immature Gran % 2.2 Neutrophils % 55.6 Lymphocytes % 28.3 Monocytes % 10.7 Eosinophils % 2.5 Basophils % 0.7 Absolute Neutrophils 4.80 Absolute Lymphocytes 2.44 Absolute Monocytes 0.92 H Absolute Eosinophils 0.22 Absolute Basophils 0.06 PT 9.7 INR 1.0 APTT 26.5 Sodium 137 Potassium 4.0 Chloride 103 Carbon Dioxide 24.2 Anion Gap 9.8 BUN 17 Creatinine 1.34 H Estimated GFR/1.73 m2 55.14 Glucose 114 H Calcium 8.8 Magnesium 1.9 Total Bilirubin 0.4 AST 22 ALT 42 Alkaline Phosphatase 96 Troponin I < 0.05 NT-Pro-B Natriuret Pep Total Protein 7.3 Albumin 3.8 09/17/19 09/17/19 09:15 12:14 WBC RBC Hgb Hct MCV MCH MCHC RDW Plt Count MPV Immature Gran % Neutrophils % Lymphocytes % Monocytes % Eosinophils % Basophils % Absolute Neutrophils Absolute Lymphocytes Absolute Monocytes Absolute Eosinophils Absolute Basophils PT INR APTT Sodium Potassium Chloride Carbon Dioxide Anion Gap BUN Creatinine Estimated GFR/1.73 m2 Glucose Calcium Magnesium Total Bilirubin AST ALT Alkaline Phosphatase Troponin I < 0.05 NT-Pro-B Natriuret Pep 11 Total Protein Albumin Last Vital Signs Temp 36.0 C L 09/17/19 15:33 Pulse 61 09/17/19 16:11 Resp 19 09/17/19 15:33 BP 115/71 09/17/19 16:11 Pulse Ox 99 09/17/19 15:33 COVID-19 Screening Have you,or household,traveled outside [place] in last 14 days?: No Had IN PERSON contact w/suspected or confirmed C-19 person: No
[2019-09-17] MEDS: Baclofen 10 MG TAB PO (16:50)
[2019-09-17 18:38] LABS: Troponin I < 0.05 ng/mL (<0.06)
[2019-09-18 03:02] VITALS: BP 107/68; PULSE 60; RESP 18; TEMP 36.6; O2SAT 96
[2019-09-18 07:25] VITALS: BP 100/57; PULSE 56; RESP 16; TEMP 36; O2SAT 97
[2019-09-18 07:39] LABS: Anion Gap 9.8 mmol/L (3-11); BUN 16 mg/dL (7-18); CO2 24.2 mmol/L (21.0-32.0); CREATININE 1.32 mg/dL (0.70-1.30); Calcium 9.2 mg/dL (8.5-10.1); Chloride 104 mmol/L (98-107); Estimated GFR 56.11 (mL/min/1.73m2); Glucose 139 mg/dL (74-106); Potassium 4.4 mmol/L (3.5-5.1); Sodium 138 mmol/L (136-145)
--- NOTE | 2019-09-18 07:45 | HOME_ITS ---
Home Ventilator Equipment Home care company [facility] Reason: Obstructive Sleep Apnea Make: ResMed Model: AirSense 10 Mask type: Face mask Mask size: Medium Mode: CPAP Settings: Auto-titrate min 11/ max 18 Oxygen bleed in (lpm): Condition: Good Date last checked: 09/17/19 Year of last sleep study: Compliance Daily Comments: machine on RA
[2019-09-18] MEDS: amLODIPine 2.5 MG TAB PO (08:55)
[2019-09-18] MEDS: Omeprazole 20 MG CAPCR 40 MG PO (08:55)
[2019-09-18] MEDS: Aspirin E.C. 81 MG TABEC PO (08:55)
[2019-09-18] MEDS: Lisinopril 10 MG TAB 30 MG PO (08:55)
[2019-09-18] MEDS: Atorvastatin 20 MG TAB PO (08:56)
[2019-09-18] MEDS: Normal Saline Flush 10 ML SYR IVP (09:04)
--- NOTE | 2019-09-18 09:47 | W.PM.DS.N ---
Date of service: 09/18/19 Time of Service: 09:47 DS: Diagnosis Discharge Diagnosis (1) Chest pain: Status: Acute (2) Tobacco use disorder: Status: Chronic (3) Type 2 diabetes mellitus: Status: Chronic (4) Obesity, unspecified: Status: Chronic (5) Obstructive sleep apnea: Status: Chronic (6) Mixed hyperlipidemia: Status: Chronic (7) Gastroesophageal reflux disease without esophagitis: Status: Chronic (8) Essential hypertension: Status: Chronic (9) Chronic kidney disease (CKD), stage III (moderate): Status: Chronic Discharge Plan Disposition Patient Disposition: HOME Condition: Stable Discharge Details Chief Complaint: Chest Pain Clinical Impression: Chest pain Reason For Visit: CHEST PAIN Admit Date/Time: 09/17/19 13:06 Admit Provider: Michael Merida Attending Provider: Michael Merida Primary Care Provider: Garth Marroquin ED Provider: [facility] Hospital Course: This is a 54 yo male with significant PMH of DM2, HTN, HLD, nonobstructive CAD,CKD, tobacco abuse, GERD, ELIU. He presented with c/o L sided chest pain, onset at 0700 AM. He had woken at 0400 AM and was feeling normal. He was at rest. The pain did not radiate. Pain described as an ache and rated 5 out of 10. He has had similar pain in the past. He did endorse some shortness of air. No diaphoresis or palpitations. No N/V. NM cardiac stress test on 01/10/19 was nonischemic. EF of 45%. Echo on same day showed mild thickening of ostgerior wall of left ventricle, septal wall thickening. EKG in ED was negative for ischemic findings. Troponin negative x 2; 3rd troponin ordered SL nitroglycerine given on presentation and his pain resolved. At time of arrival on the med-surg unit and my evaluation the CP had returned. He did garden the day before admission and has a stiff, tender posterior neck. Palpation of the chest wall was equivocal; when asked if it hurt when compressed he said not really. Overnight he had no further chest pain. No SOA, palpitations. He will f/u with his PCP in 1-2 weeks. Outpt NM stress test to be arranged. Home Meds and New Rx's Prescriptions: Continued acetaminophen [Tylenol Extra Strength] 500 mg tablet 500 mg PO Q4H PRNRF: 0 aspirin 81 mg tablet,delayed release (DR/EC) 81 mg PO DAILY 90 Days Qty: 90 RF: 3 Jardiance 10 mg tablet 10 mg PO QAM Qty: 30 RF: 6 metformin 500 mg tablet extended release 24 hr 1,000 mg PO DAILY Qty: 180 RF: 3 (DME) lancets [FreeStyle Lancets] 28 gauge misc See Rx Instructions .ROUTE .MEDSUPPLY Qty: 25 RF: 0 (DME) FreeStyle Lite Strips Strip See Rx Instructions .ROUTE .MEDSUPPLY Qty: 100 RF: 3 clotrimazole 1 % ointment 1 applic TP BID Qty: 56.7 RF: 0 atorvastatin 20 mg tablet 20 mg PO DAILY Qty: 90 RF: 3 albuterol sulfate [Ventolin HFA] 90 mcg/actuation HFA aerosol inhaler 1 - 2 puff Inhalation Q4H PRN Qty: 1 RF: 0 omeprazole 40 mg capsule,delayed release(DR/EC) 40 mg PO DAILY Qty: 90 RF: 3 lisinopril 30 mg tablet 30 mg PO DAILY Qty: 90 RF: 3 amlodipine 2.5 mg tablet 2.5 mg PO DAILY Qty: 90 RF: 3 cholecalciferol (vitamin D3) [Vitamin D3] 50 mcg (2,000 unit) tablet 2,000 unit PO DAILY Qty: 90 RF: 3 Discharge Instructions Instructions: Chest Pain (DC) Activity:: Activity as Tolerated Equipment/Supplies:: No Equipment Needed Diet:: carb controlled, heart healthy Discharge Orders Discharge Orders: Discharge Order (Routine); Ordered 09/18/19 Ordered By: Michael Merida Other Ambulatory Orders: Nuclear Medicine Stress Test (Outpt) (ONCE) Location: None Selected Ordered By: Michael Merida DS: Summary Status at Discharge Functional status at discharge: independent ambulation Overall status at discharge: patient is back to baseline Mental Status: mental status grossly normal Speech and Movement: speech and movement normal Mood: congruent mood Affect: normal affect Exam Psych Mental Status: mental status grossly normal Speech and Movement: speech and movement normal Mood: congruent mood Affect: normal affect DS: Data Vitals/I&O Vitals and I&O: Vital Signs Temperature 36 C L 09/18/19 07:25 Temperature Source Tympanic 09/18/19 07:25 Pulse 56 L 09/18/19 07:25 Pulse Rhythm Regular 09/18/19 09:05 Pulse 59 L 09/17/19 12:40 Respiratory Rate 16 09/18/19 07:25 Respiratory Effort Non-Labored 09/18/19 09:05 Respiratory Depth Normal 09/18/19 09:05 Respiratory Pattern Normal 09/18/19 09:05 Blood Pressure 100/57 L 09/18/19 07:25 Blood Pressure Mean 76 09/17/19 11:31 Blood Pressure Position Supine 09/17/19 09:10 Pulse Oximetry 97 09/18/19 07:25 Oxygen Delivery Method Room Air 09/18/19 07:25 Oxygen Flow Rate 0 09/18/19 07:25 Fraction of Inspired Oxygen (FIO2) 21 09/18/19 09:07 Pain Level 0 09/18/19 07:25 Intake & Output 09/17/19 09/17/19 09/18/19 11:59 23:59 11:59 Intake Total 10 / 750 740 / 750 300 / 300 Balance 10 / 750 740 / 750 300 / 300 Weight 104.326 kg 104.326 kg Intake: IV 10 / 510 500 / 510 Oral 240 / 240 300 / 300 Data Completed and Pending Labs on day of discharge: Labs from last 24 hours 09/18/19 09/17/19 09/17/19 06:50 18:14 13:37 Sodium 138 Potassium 4.4 Chloride 104 Carbon Dioxide 24.2 Anion Gap 9.8 BUN 16 Creatinine 1.32 H Estimated GFR/1.73 m2 56.11 Glucose 139 H Calcium 9.2 Troponin I < 0.05 NT-Pro-B Natriuret Pep COVID-19 PCR Pending Nasopharyn COVID-19 PCR Pending Ref Test Perform Site Pending 09/17/19 09/17/19 12:14 09:15 Sodium Potassium Chloride Carbon Dioxide Anion Gap BUN Creatinine Estimated GFR/1.73 m2 Glucose Calcium Troponin I < 0.05 NT-Pro-B Natriuret Pep 11 COVID-19 PCR Nasopharyn COVID-19 PCR Ref Test Perform Site [facility] Medical History Abdominal obesity (Acute) Abnormal stress test (Chronic) Chronic kidney disease (CKD), stage III (moderate) (Chronic 05/26/16) ? due to DM or to hypertension Complex regional pain syndrome (Chronic 06/27/13) Diabetes mellitus type 2 in obese (Chronic 02/19/16) presented with polyuria, elevated FS on friend's glucometer, A1c 14 at [facility] ER Essential hypertension (Chronic) goal <140/85 Gastroesophageal reflux disease without esophagitis (Chronic 12/05/11) ER 11/2014 rx PPI Mixed hyperlipidemia (Chronic 02/16/01) low HDL 27; SL HIGH TG; CV RISK (12/2016): 27%: rec Statin Obesity, unspecified (Chronic 12/05/11) 1993 165#; 180 gives BMI <30 Obstructive sleep apnea (Chronic 03/10/16) [id number], severe in REM sleep Sleep study PSG on 03/10/16: AHI 20.1; SPO2 shailesh 82%; CPAP begun 06/08/16. with improvement in fatigue 06/29/16 restudied higher pressures needed assoc. with treatment of central sleep apnea Paresthesias (Resolved 10/27/16) nocturnal, bilateral, R>L, Median nerve, probable CTS Sessile colonic polyp (Inactive 09/26/14) @ transverse colon, sigmoid Tobacco use disorder (Chronic) Quit 2019 Vitamin D deficiency (Chronic) Surgical History Cardiac [place] (Ch[place] 03/24/17) [facility] [place] - IV Sedation (Inactive 09/26/14) [facility] Perri, serrated polyp, fragments of sessile serrated adenoma Cystoscopy w/ joe retrograde pyelogram (Inactive 03/01/15) Extraction of cataract (Chronic 12/17/16) Left Radha Manzo; Natividad 11/19/16 Family History Father , lung cancer at age 67. Essential hypertension Neoplasm Mother Diabetes Essential hypertension Sister No problems noted. Sister No problems noted. Social History Smoking/Tobacco Use Status: Current every day Tobacco Type: cigarettes Smoking packs per day: 2 Smoking cigarettes per day: 40.0 Tobacco: How many years used: 41 Quit status: considering quitting Alcohol Intake: former Drug use: Never Substance use type: does not use Household members: significant other Housing: apartment Number of Children: 3 Communication Needs: None Do you need help understanding health information?: Often Current gender identity: male What is your relationship status?: living with partner Panel score (0-1 are the most socially isolated patients): 1 What type of physical activity do you participate in: none Seatbelt use: always Drive intox or ride 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
[2019-09-18 14:04] LABS: COVID-19 RT-PCR UVMMC Result Negative (Negative)
== END 2019-09-18 10:30 | disposition home or self-care (01) ==
LOC: ER 11:36 → MS 13:52
PROVIDERS: Admitting Provider Family Medicine; Emergency Provider Physician Assistant; PCP Family Medicine; Visit Provider Family Medicine
DX: R07.89 Other chest pain (principal); F17.210 Nicotine dependence, cigarettes, uncomplicated; G47.33 Obstructive sleep apnea (adult) (pediatric); E11.9 Type 2 diabetes mellitus without complications; E66.9 Obesity, unspecified; E78.2 Mixed hyperlipidemia; K21.9 Gastro-esophageal reflux disease without esophagitis; I12.9 Hypertensive chronic kidney disease with stage 1 through stage 4 chronic kidney disease, or unspecified chronic kidney disease; N18.3 Chronic kidney disease, stage 3 (moderate); E55.9 Vitamin D deficiency, unspecified; Z79.84 Long term (current) use of oral hypoglycemic drugs; Z11.59 Encounter for screening for other viral diseases
CPT/HCPCS: 36415; 71275; 80048; 80053; 93005; 96360; 99217; 99222; 99285; U0003; 71046; 83735; 83880; 84484; 85025; 85610; 85730; 93010; 99219; G0378; J3490

== ENCOUNTER 2019-09-20 13:45 | Emergency (ER) | payer MEDICARE, MEDICAID, SELFPAY ==
[2019-09-20] VITALS (46 sets, daily range): BP systolic 107–141; BP diastolic 43–63; PULSE 57–87; RESP 16–31; TEMP 36.6–37; O2SAT 95–98
--- NOTE | 2019-09-20 13:45 | RT.EKG_ITS ---
APPROVED REPORT Exam: Resting ECG Patient Location: E HR:79 bpm ECG Measurements Heart Rate 79 AXIS AZ 164 P 43 QRSd 91 QRS 28 QT 368 T 29 QTc 423 <Conclusion> Sinus rhythm...normal P axis, V-rate 60- 99
--- NOTE | 2019-09-20 13:54 | ED.GENADUL_ITS ---
Discharge Plan Disposition Patient Disposition: HOME Condition: Stable Discharge Details Chief Complaint: Chest Pain Clinical Impression: Chest pain Primary Care Provider: Garth Marroquin ED Provider: Petty Strong Home Meds and New Rx's Prescriptions: Continued acetaminophen [Tylenol Extra Strength] 500 mg tablet 500 mg PO Q4H PRNRF: 0 aspirin 81 mg tablet,delayed release (DR/EC) 81 mg PO DAILY 90 Days Qty: 90 RF: 3 Jardiance 10 mg tablet 10 mg PO QAM Qty: 30 RF: 6 metformin 500 mg tablet extended release 24 hr 1,000 mg PO DAILY Qty: 180 RF: 3 (DME) lancets [FreeStyle Lancets] 28 gauge misc See Rx Instructions .ROUTE .MEDSUPPLY Qty: 25 RF: 0 (DME) FreeStyle Lite Strips Strip See Rx Instructions .ROUTE .MEDSUPPLY Qty: 100 RF: 3 clotrimazole 1 % ointment 1 applic TP BID Qty: 56.7 RF: 0 atorvastatin 20 mg tablet 20 mg PO DAILY Qty: 90 RF: 3 albuterol sulfate [Ventolin HFA] 90 mcg/actuation HFA aerosol inhaler 1 - 2 puff Inhalation Q4H PRN Qty: 1 RF: 0 omeprazole 40 mg capsule,delayed release(DR/EC) 40 mg PO DAILY Qty: 90 RF: 3 lisinopril 30 mg tablet 30 mg PO DAILY Qty: 90 RF: 3 amlodipine 2.5 mg tablet 2.5 mg PO DAILY Qty: 90 RF: 3 cholecalciferol (vitamin D3) [Vitamin D3] 50 mcg (2,000 unit) tablet 2,000 unit PO DAILY Qty: 90 RF: 3 No Action nitroglycerin [Nitrostat] 0.4 mg tablet, sublingual 0.4 mg Sublingual Q5 MIN PRN X3 Qty: 100 RF: 1 Discharge Instructions Instructions: Chest Pain (ED) Additional Instructions: Follow up with primary care provider in 3-5 days. Return to ED sooner if any worsening or concerns. Increase oral fluids. Keep your scheduled stress test appointment for October 04, 2019. You will be placed on the care management follow-up list to see about getting a sooner stress test if possible. Please return to the ER immediately or call 911 for any worsening chest pain, shortness of breath or any concerns. Continue the good work with cutting down smoking. Referrals: Garth Marroquin DO [Primary Care Provider] - Jose Ramachandran MD [ CONSULTING PHYSICIAN] - Discharge Data Discharge Date/Time-TO BE ENTERED AT DEPARTURE: 09/20/19 18:00 Medical Decision Making <JAMES Mireles - Last Filed: 09/21/19 19:32> Patient is a pleasant 54-year-old male presents today with recurrent chest pain. Patient is seen by myself 4 days ago at which time he was admitted. He was kept overnight for his chest discomfort which did resolve after nitro. Patient is at high risk. He did have negative serial troponins. He did have stress test last fall without significant abnormality. States he has been feeling well the time of discharge. Reports no chest discomfort until 45 minutes prior to arrival. Once again, the pain came on when he was sedentary. Denies any radiation of his pain. States that he has walk around outside has been asymptomatic when exerting himself. He denies any shortness of breath. Pain does not radiate into his back. Denies any nausea vomiting. Has not noted any weakness. No fevers or chills. Denies any cough aside his chronic smoker's cough. Patient states that he is supposed to have an outpatient stress test. Please see my previous note, patient did have one last fall without any significant abnormality. Neuro exam, patient does appear uncomfortable. He appears quite similar to when he came in on Thursday. Is normal cardiac exam. Lungs are clear. No calf tenderness. No lower extremity edema. Pain is reproducible with palpation of the left side of his chest wall. Considered ACS although patient's history is not consistent with cardiac etiology. Once again considered chest wall discomfort such as musculoskeletal pain. He does not have any murmurs when leaning forward and does not have any risks associated with endocarditis. I did consider however pericarditis. Patient did have a CT for PE protocol on Thursday and has not been having any shortness of breath so I doubt PE at this point. He denies any increase in his stress. He denies any infectious symptoms. EKG was reviewed by Dr. Crawford. No acute ischemic process is noted. We will attempt to relieve patient is comfort with GI cocktail. Patient did not improve after GI cocktail. Patient was given sublingual nitro with no improvement of his pain. Will give morphine. Patient reports complete resolution of his discomfort after 4 mg of IV morphine. Labs are reviewed. Patient is slight elevation of his white count at 10.9. Coags are normal. Chemistry significant for creatinine of 1.4 which is baseline for the patient. Initial troponin is less than 0.05. CRP and ESR normal. Does x-ray reviewed by radiologist: FINDINGS: Lungs: Clear lungs. Pleural space: No pneumothorax. No sizeable effusion. Heart/Mediastinum: Cardiomediastinal silhouette is within normal limits. Bones/joints: No acute displaced fracture or dislocation. IMPRESSION: No acute cardiopulmonary process. At the end of my shift, care was transitioned to Lily Strong NP with repeat troponin and reassessment pending. <Petty Strong - Last Filed: 09/20/19 20:45> 1743: Assumed care from off going provider JAMES Delgado please see her initial HPI and physical assessment. Patient's second troponin is within normal limits upon patient reevaluation he denies having any continued episodes of chest pain since being in department. Discussed with patient his schedule stress test for October 04, 2019 at 12:00, verbalized understanding. Patient is to arrive at 1015. Will [address] patient on care management list to see about possibly getting a sooner stress test appointment. Discussed strict return instructions, verbalized understanding. Patient does take aspirin daily discussed to return if he has any further episodes of chest pain or any concerns. HPI <JAMES Mireles - Last Filed: 09/21/19 19:32> General Mode of arrival: ambulatory . Date/Time Provider Initiated Documentation: 09/20/19 13:49 . Limitations to Documentation: no limitations . Information obtained by: patient and RN notes reviewed . History of Present Illness 54 year old M presents to the emergency department with the chief complaint of Substernal chest pain, described as severe and similar to prior episodes, with intensity rated at 9. Quality is described as aching, and i s localized to the chest. Patient reports no radiation. Patient started experiencing this minute(s) and it has been constant (Came on when at rest). No relieving factors improve symptom(s), No exacerbating factors reported . Patient notes no other symptoms.. Patient did receive the following treatments prior to arrival, none Related Data Home Medications Medication Instructions Recorded Confirmed acetaminophen 500 mg tablet 500 mg PO Q4H PRN 10/26/17 09/20/19 clotrimazole 1 % topical ointment 1 applic TP BID #56.7 gm 09/06/18 09/20/19 atorvastatin 20 mg tablet 20 mg PO DAILY #90 tab 11/04/18 09/20/19 aspirin 81 mg tablet,delayed 81 mg PO DAILY 90 Days #90 tabec 01/07/19 09/20/19 release albuterol sulfate 90 mcg/actuation 1 - 2 puff INHALATION Q4H PRN #1 01/24/19 09/20/19 aerosol inhaler inhaler omeprazole 40 mg capsule,delayed 40 mg PO DAILY #90 cap 02/01/19 09/20/19 release lisinopril 30 mg tablet 30 mg PO DAILY #90 tab-cap 03/03/19 09/20/19 empagliflozin 10 mg tablet 10 mg PO QAM #30 tab 04/11/19 09/20/19 metformin 500 mg tablet,extended 1,000 mg PO DAILY #180 tab-cap 04/11/19 09/20/19 release 24 hr amlodipine 2.5 mg tablet 2.5 mg PO DAILY #90 tab-cap 06/13/19 09/20/19 cholecalciferol (vitamin D3) 50 2,000 unit PO DAILY #90 tab-cap 06/13/19 09/20/19 mcg (2,000 unit) tablet blood sugar diagnostic #100 each 08/29/19 08/29/19 lancets 28 gauge #25 each 08/29/19 08/29/19 nitroglycerin 0.4 mg sublingual 0.4 mg SUBLINGUAL Q5 MIN PRN X3 09/21/19 tablet #100 tab Previous Rx's Medication Instructions Recorded clotrimazole 1 % topical ointment 1 applic TP BID #56.7 gm 09/06/18 atorvastatin 20 mg tablet 20 mg PO DAILY #90 tab 11/04/18 aspirin 81 mg tablet,delayed 81 mg PO DAILY 90 Days #90 tabec 01/07/19 release albuterol sulfate 90 mcg/actuation 1 - 2 puff INHALATION Q4H PRN #1 01/24/19 aerosol inhaler inhaler omeprazole 40 mg capsule,delayed 40 mg PO DAILY #90 cap 02/01/19 release lisinopril 30 mg tablet 30 mg PO DAILY #90 tab-cap 03/03/19 empagliflozin 10 mg tablet 10 mg PO QAM #30 tab 04/11/19 metformin 500 mg tablet,extended 1,000 mg PO DAILY #180 tab-cap 04/11/19 release 24 hr amlodipine 2.5 mg tablet 2.5 mg PO DAILY #90 tab-cap 06/13/19 cholecalciferol (vitamin D3) 50 2,000 unit PO DAILY #90 tab-cap 06/13/19 mcg (2,000 unit) tablet blood sugar diagnostic #100 each 08/29/19 nitroglycerin 0.4 mg sublingual 0.4 mg SUBLINGUAL Q5 MIN PRN X3 09/21/19 tablet #100 tab Allergies Allergy/AdvReac Type Severity Reaction Status Date / Time celecoxib Allergy Intermediate Rash, Verified 09/20/19 13:53 urticaria naproxen Allergy Intermediate Itchy Welts Verified 09/20/19 13:53 prednisone AdvReac Unknown Upset Verified 09/20/19 13:53 stomach, fatigue General Stated Complaint: Chest Pain JAMES: 2 Review of Systems <JAMES Mireles - Last Filed: 09/21/19 19:32> Constitutional Constitutional: Reports as per HPI, Denies chills, Denies fever(s), Denies headache(s), Denies lethargy and Denies poor appetite Eyes Eyes: Denies change in vision ENT Ears, Nose, Mouth, and Throat: Denies dizziness and Denies headache(s) Cardiovascular Cardiovascular: Reports as per HPI, Denies dyspnea and Denies dyspnea on exertion Respiratory Respiratory: Reports as per HPI, Denies chest congestion, Denies cough, Denies pain on inspiration, Denies pain with cough, Denies dyspnea, Denies dyspnea on exertion and Denies wheezing Gastrointestinal Gastrointestinal: Reports as per HPI, Denies abdominal pain, Denies diarrhea, Denies nausea and Denies vomiting Genitourinary Genitourinary: Denies system reviewed and no additional complaints, except as documented (denies change in urinary habits) Musculoskeletal Musculoskeletal: Reports as per HPI and Denies back pain Integumentary/Breasts Skin/Breast: Reports as per HPI and Denies rash Neurologic Neurologic: Reports as per HPI, Denies dizziness and Denies headache(s) Allergic/Immunologic Allergic/Immunologic: Denies wheezing PFSH <JAMES Mireles - Last Filed: 09/21/19 19:32> Medical History (Updated 09/20/19 @ 17:47 by Petty Strong) Abdominal obesity (Acute) Abnormal stress test (Chronic) Chronic kidney disease (CKD), stage III (moderate) (Chronic 05/26/16) ? due to DM or to hypertension Complex regional pain syndrome (Chronic 06/27/13) Diabetes mellitus type 2 in obese (Chronic 02/19/16) presented with polyuria, elevated FS on friend's glucometer, A1c 14 at [facility] ER Essential hypertension (Chronic) goal <140/85 Gastroesophageal reflux disease without esophagitis (Chronic 12/05/11) ER 11/2014 rx PPI Mixed hyperlipidemia (Chronic 02/16/01) low HDL 27; SL HIGH TG; CV RISK (12/2016): 27%: rec Statin Obesity, unspecified (Chronic 12/05/11) 1993 165#; 180 gives BMI <30 Obstructive sleep apnea (Chronic 03/10/16) [id number], severe in REM sleep Sleep study PSG on 03/10/16: AHI 20.1; SPO2 shailesh 82%; CPAP begun 06/08/16. with improvement in fatigue 06/29/16 restudied higher pressures needed assoc. with treatment of central sleep apnea Paresthesias (Resolved 10/27/16) nocturnal, bilateral, R>L, Median nerve, probable CTS Sessile colonic polyp (Inactive 09/26/14) @ transverse colon, sigmoid Tobacco use disorder (Chronic) 2019 Vitamin D deficiency (Chronic) Surgical History Cardiac Cath (Chronic 03/24/17) [facility] Colonoscopy - IV Sedation (Inactive 09/26/14) [facility] Perri, serrated polyp, fragments of sessile serrated adenoma Cystoscopy w/ joe retrograde pyelogram (Inactive 03/01/15) Extraction of cataract (Chronic 12/17/16) Left Radha Manzo; R 11/19/16 Family History Father , lung cancer at age 67. Essential hypertension Neoplasm Mother Diabetes Essential hypertension Sister No problems noted. Sister No problems noted. Social History Smoking/Tobacco Use Status: Current every day Tobacco Type: cigarettes Smoking packs per day: 0.75 Smoking cigarettes per day: 15.0 Tobacco: How many years used: 41 Quit status: considering quitting Alcohol Intake: former Drug use: Never Substance use type: does not use Household members: significant other Housing: apartment Number of Children: 3 Communication Needs: None Do you need help understanding health information?: Often Current gender identity: male What is your relationship status?: living with partner Panel score (0-1 are the most socially isolated patients): 1 What type of physical activity do you participate in: none Seatbelt use: always Drive intox 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 Working smoke detector in home: No Fire extinguisher in home: No Carbon monox detector in home: No Do you feel safe at home: Yes Do you feel safe in your relationship?: Yes Exam <JAMES Mireles - Last Filed: 09/21/19 19:32> Const General: cooperative, healthy appearing, comfortable, no acute distress and well developed Nutritional Appearance: well nourished and overweight Orientation: alert, awake and oriented x3 HENMT Head: normal to inspection Ears: hearing grossly normal bilaterally Mouth: moist mucous membranes Chest Chest: normal inspection of the chest, normal palpation of entire chest wall, no crepitus and tenderness sternum Resp Effort & Inspection: normal respiratory effort, able to speak in complete sentences and no respiratory distress Auscultation: clear to auscultation bilaterally, no rales, no rhonchi and no wheezes Cardio Rate: regular rate Rhythm: regular rhythm Heart Sounds: S1 normal and S2 normal GI Inspection: normal to inspection, no edema and non-distended Palpation: soft, no hepatosplenomegaly, not firm, no guarding, not rigid and nontender Auscultation: normal bowel sounds Back/Spine/Pelvis Back: no CVA tenderness Thoracic/Lumbar Spine: thoracic and lumbar spine normal to inspection Skin General skin exam: no rashes or lesions noted Trauma: no lacerations or abrasions Neuro General: patient alert, patient awake and patient oriented x3 Cognition: normal cognition Speech: speech normal Gait: normal gait Extrem General: normal to inspection, capillary refill normal, no pedal edema, no calf tenderness and normal gait Psych Appearance: grossly normal and well kempt Mental Status: mental status grossly normal Speech and Movement: speech and movement normal Course <JAMES Mireles - Last Filed: 09/21/19 19:32> Vital Signs Vital signs: Vital Signs Temperature 36.6 C 09/20/19 13:49 Pulse 87 09/20/19 13:49 Respiratory Rate 31 H 09/20/19 13:49 Blood Pressure 141/61 H 09/20/19 13:49 Pulse Oximetry 96 09/20/19 13:49 Temperature 36.6 C 09/20/19 13:49 Temperature Source Skin 09/20/19 13:49 Pulse 87 09/20/19 13:49 Respiratory Rate 31 H 09/20/19 13:49 Respiratory Effort 09/20/19 13:49 Blood Pressure 141/61 H 09/20/19 13:49 Blood Pressure Position Supine 09/20/19 13:49 Pulse Oximetry 96 09/20/19 13:49 Oxygen Delivery Method Room Air 09/20/19 13:49 Oxygen Flow Rate 0 09/20/19 13:49 Pain Level 9 09/20/19 13:49 Sign Out <JAMES Mireles - Last Filed: 09/21/19 19:32> Sign Out Data: Sign Out Comment: Care transition to Lily Monroy NP, with repeat troponin and reevaluation pending. Last updated by Eva Isbell PA at 09/20/19 17:04
[2019-09-20 14:11] LABS: Abs Immature Grans 0.19 10^3/uL (0.0-0.06); Absolute Basophil Count 0.09 10^3/uL (0.0-0.2); Absolute Eosinophil Count 0.26 10^3/uL (0.0-0.7); Absolute Lymphocyte Count 2.36 10^3/uL (1.2-3.4); Absolute Monocyte Count 0.95 10^3/uL (0.1-0.8); Absolute Neutrophil Count 7.07 10^3/uL (1.2-6.7); Basophils % 0.8; Eosinophils % 2.4; HCT 48.3 % (40.0-50.0); HGB 16.1 g/dL (13.5-17.5); Immature Grans % 1.7; Lymphocytes % 21.6; MCH 29.7 pg (27.0-33.0); MCHC 33.3 % (32.0-36.0); MPV 10.7 fL (8.0-11.0); Monocytes % 8.7; Neutrophils % 64.8; Nucleated RBC 0 %; Platelet Count 209 10^3/uL (130-400); RBC 5.43 10^6/uL (4.36-5.78); RDW 13.8 % (11.8-14.1); RDW-SD 44.7 fL; WBC 10.91 10^3/uL (4.4-10.8)
[2019-09-20 14:28] LABS: PTT Activated 25.2 sec (21.0-31.4); Prothrombin Time 9.7 sec (9.3-11.0)
[2019-09-20 14:33] LABS: ALT 44 U/L (16-63); AST 17 U/L (15-37); Albumin 3.8 g/dL (3.4-5.0); Alkaline Phosphatase 87 U/L (46-116); Anion Gap 9.5 mmol/L (3-11); BUN 18 mg/dL (7-18); Bilirubin, Total 0.3 mg/dL (0.2-1.0); CO2 24.5 mmol/L (21.0-32.0); CREATININE 1.41 mg/dL (0.70-1.30); Calcium 8.9 mg/dL (8.5-10.1); Chloride 104 mmol/L (98-107); Estimated GFR 51.99 (mL/min/1.73m2); Glucose 158 mg/dL (74-106); Magnesium 1.8 mg/dL (1.8-2.4); Potassium 3.7 mmol/L (3.5-5.1); Sodium 138 mmol/L (136-145); Total Protein 7.2 g/dL (6.4-8.2); Troponin I < 0.05 ng/mL (<0.06)
[2019-09-20 15:03] LABS: ESR 9 mm/hr (1-20)
--- NOTE | 2019-09-20 15:57 | DI.RAD_ITS ---
EXAM: XR CHEST 2V PA LATERAL CLINICAL HISTORY: CP TECHNIQUE: COMPARISON: CR XR CHEST 2V PA LATERAL from 01/24/2019 CR,XR XR CHEST 2V PA LATERAL from 09/17/2019 FINDINGS: Heart is not enlarged. Lungs are predominantly clear with minimal scarring noted in the right mid mari ng. No pleural effusion seen. No change from prior study of September 16. IMPRESSION: No evidence of acute process.
--- NOTE | 2019-09-20 16:12 | DI.VRAD_ITS ---
PROCEDURE INFORMATION: Exam: XR Chest, 2 Views Exam date and time: 09/20/2019 3:59 PM Age: 54 years old Clinical indication: Chest pain; Type not specified; Patient HX: Cp TECHNIQUE: Imaging protocol: XR of the chest Views: 2 views. COMPARISON: CR XR CHEST 2V PA LATERAL 09/17/2019 10:02 AM FINDINGS: Lungs: Clear lungs. Pleural space: No pneumothorax. No sizeable effusion. Heart/Mediastinum: Cardiomediastinal silhouette is within normal limits. Bones/joints: No acute displaced fracture or dislocation. IMPRESSION: No acute cardiopulmonary process. Dictated and Authenticated by: Reno Stuart MD. Ordering:JOANNA Velasquez MD
[2019-09-20 17:28] LABS: Troponin I < 0.05 ng/mL (<0.06)
--- NOTE | 2019-09-22 11:00 | PDOC.ERCMPRO ---
- If Service Date Differs Date of service: 09/22/19 Time of Service: 11:00 Care Management Progress Note At the request of ED provider, ROMAIN reschedules Pavan's nuclear medicine stress test from October 04, 2019 to Friday, September 27, 2019 at 10:15 am. ROMAIN has left a telephone message advising of the change in appointment date and time and asking that Pavan call CM to confirm receipt of message.
== END 2019-09-20 18:00 | disposition home or self-care (01) ==
PROVIDERS: Physician Assistant; Emergency Provider Registered Nurse Emergency; PCP Family Medicine
DX: R07.9 Chest pain, unspecified (principal); I12.9 Hypertensive chronic kidney disease with stage 1 through stage 4 chronic kidney disease, or unspecified chronic kidney disease; N18.3 Chronic kidney disease, stage 3 (moderate); E11.22 Type 2 diabetes mellitus with diabetic chronic kidney disease
CPT/HCPCS: 36415; 80053; 85652; 93005; 96374; 99285; 71046; 83735; 84484; 85025; 85610; 85730; 86140; 93010

== ENCOUNTER 2019-09-27 00:58 | Outpatient (CLI) | payer MEDICARE, MEDICAID, SELFPAY ==
--- NOTE | 2019-09-27 | DI.NM_ITS ---
APPROVED REPORT Exam: Exercise Treadmill Patient Location: Out-Patient Room/Bed: Stress Nurse: Yeimi Dong RN BMI: 37.11 Baseline Rhythm: Sinus Bradycardia Indications: Chest pain. Obesity. Hypertension. Mixed hyperlipidemia. Medical History Medical History: Diabetes, CKD, HTN, GERD, Hyperlipidemia, Obesity , Obstructive sleep apnea Cardiac Medications: Aspirin. Jardiance. Metformin. Atorvastatin. Omeprazole. Lisinopril. Amlodipine. Nitroglycerin., Allergies: Celecoxib. Naproxen. Prednisone. Cardiac Risk Factors: HTN, Hyperlipidemia, DM, FHX of CAD, Smoking Previous Cardiac Procedures: PCI Pretest Chest Pain Characteristics: Exertional Chest pain Exercise History: Indeterminate Lung Sounds: Clear to auscultation Heart Sounds: Bradycardia Stress Test Details Test: Exercise stress converted to pharmacologic stress due to failure to obtain a diagnostic stress test. Nuclear Acquisition: Rest Tc-99m/Stress Tc-99m 1 day Rest Isotope: Tc-99m Sestamibi. Dose: 12.2 Date: 09/27/2019 Injection Time: 1025 Stress Isotope: Tc-99m Sestamibi. Dose: 34.0 Date: 09/27/2019 Injection Time: 1315 HR Resting HR Supine: 56 bpm Max Heart Rate (APMHR): 164 bpm Resting HR Standin bpm Target HR (85% APMHR): 139 bpm Max HR Achieved: 140 bpm % of APMHR: 85 Recovery HR: 96 bpm HR response to stress: Accelerated HR response to stress BP Resting BP Supine: 146/88 mmHg Resting BP Standin/90 mmHg Max BP: 192/64 mmHg Recovery BP: 132/80 mmHg BP response to stress: Normal blood pressure response to stress. ECG Resting ECG: Sinus Bradycardia Stress ECG: Sinus Tachycardia ST Change: Normal Arrhythmia: None Recovery ECG: Sinus Rhythm Recovery ST Change: Normal Clinical Reason for Termination: Dyspnea Stress Symptoms: Dyspnea Exercise duration: 5 min07 sec Highest Stage Reached: Stage 1: 1.7 mph at 10% grade. Exercise capacity: 7.05 METs Functional Capacity: Moderately diminished capacity Stress ECG Conclusion 1. This was an exercise stress test converted to pharmacological due to inability to reach target hea rt rate. 2. Patient no symptoms suggestive of ischemia 3. EKG portion of this exam is nondiagnostic. Stress Test Summary STAGE Time (mins) Speed (mph) Grade (%) HR BP SYMPTOMS METS Supine 56 146/88 Standing 63 140/90 1 3 1.7 10 133 190/82 4.6 1 min post Lexiscan injection 104 148/72 3 min post Lexiscan injection 102 142/76 6 min post Lexiscan injection 96 132/80 MPI Conclusion The patient's ejection fraction was 44% with stress. There were no wall motion abnormalities. It was no evidence of ischemia on the imaging portion of the exam. As represents a normal SPECT stress test. Radiologist Interpretation Radiologist Interpretation by: Gregor Torres MD Interpretation Date/Time: 09/27/2019 16:12:57
[2019-09-27] MEDS: Regadenoson 0.4 MG/5 ML SYR IVP (13:39)
== END 2019-09-27 01:18 ==
PROVIDERS: PCP Family Medicine; Visit Provider Family Medicine
DX: R07.9 Chest pain, unspecified (principal); I10 Essential (primary) hypertension; E78.5 Hyperlipidemia, unspecified; E11.9 Type 2 diabetes mellitus without complications; Z82.49 Family history of ischemic heart disease and other diseases of the circulatory system; F17.210 Nicotine dependence, cigarettes, uncomplicated
CPT/HCPCS: 78452; 93016; 93018; 93017; J2785

== ENCOUNTER 2019-10-15 10:28 | Emergency (ER) | payer MEDICARE, MEDICAID, SELFPAY ==
[2019-10-15] VITALS (22 sets, daily range): BP systolic 111–144; BP diastolic 52–61; PULSE 59–76; RESP 13–30; TEMP 36.5; O2SAT 96–99
--- NOTE | 2019-10-15 10:30 | RT.EKG_ITS ---
APPROVED REPORT Exam: Resting ECG Patient Location: E HR:65 bpm ECG Measurements Heart Rate 65 AXIS CA 154 P 10 QRSd 96 QRS 30 QT 408 T 15 QTc 424 Conclusion Sinus rhythm...normal P axis, V-rate 60- 99
--- NOTE | 2019-10-15 10:45 | DI.RAD_ITS ---
EXAM: XR PORTABLE CHEST AP CLINICAL HISTORY: shortness of breath TECHNIQUE: 2D digital imaging was performed. COMPARISON: CR,XR XR CHEST 2V PA LATERAL from 09/20/2019 FINDINGS: MEDIASTINUM: Normal. HEART: Normal. PULMONARY VASCULATURE: Normal. LUNGS: Unchanged right middle lobe atelectasis. PLEURAL SPACE: No pleural effusion or pneumothorax. BONE:Within normal limits for the patient's age. OTHER FINDINGS:Normal. IMPRESSION: No acute pulmonary findings. DATA REPOSITORY: RADIATION DOSE DELIVERED:
[2019-10-15 11:02] LABS: Abs Immature Grans 0.11 10^3/uL (0.0-0.06); Absolute Basophil Count 0.09 10^3/uL (0.0-0.2); Absolute Eosinophil Count 0.28 10^3/uL (0.0-0.7); Absolute Lymphocyte Count 2.54 10^3/uL (1.2-3.4); Absolute Monocyte Count 0.95 10^3/uL (0.1-0.8); Absolute Neutrophil Count 5.37 10^3/uL (1.2-6.7); HCT 49.3 % (40.0-50.0); HGB 16.3 g/dL (13.5-17.5); Immature Grans % 1.2; Lymphocytes % 27.2; MCH 29.4 pg (27.0-33.0); MCHC 33.1 % (32.0-36.0); MPV 10.8 fL (8.0-11.0); Monocytes % 10.2; Neutrophils % 57.4; Nucleated RBC 0 %; Platelet Count 229 10^3/uL (130-400); RBC 5.54 10^6/uL (4.36-5.78); RDW 13.7 % (11.8-14.1); RDW-SD 44.6 fL; WBC 9.34 10^3/uL (4.4-10.8)
[2019-10-15 11:26] LABS: ALT 39 U/L (16-63); AST 19 U/L (15-37); Albumin 3.8 g/dL (3.4-5.0); Alkaline Phosphatase 90 U/L (46-116); Anion Gap 12.5 mmol/L (3-11); BUN 18 mg/dL (7-18); Bilirubin, Total 0.4 mg/dL (0.2-1.0); CO2 21.5 mmol/L (21.0-32.0); CREATININE 1.27 mg/dL (0.70-1.30); Calcium 8.8 mg/dL (8.5-10.1); Chloride 104 mmol/L (98-107); Estimated GFR 58.66 (mL/min/1.73m2); Glucose 137 mg/dL (74-106); Potassium 3.7 mmol/L (3.5-5.1); Sodium 138 mmol/L (136-145); Total Protein 7.2 g/dL (6.4-8.2)
[2019-10-15 11:30] LABS: Troponin I < 0.05 ng/mL (<0.06)
--- NOTE | 2019-10-15 11:30 | DI.CT_ITS ---
EXAM: CT CHEST PE CTA CLINICAL HISTORY: shortness of breath, dizzy. TECHNIQUE: Imaging Protocol: Axial CT angiography was performed with multi-slice acquisition and mu lti-planar and/or 3D reconstructions. CONTRAST MATERIAL: Intravenous: Omnipaque 350 Contrast volume:84 mL COMPARISON: CT CT CHEST PE CTA from 09/17/2019 FINDINGS: Pulmonary Arteries: No evidence of filling defect to suggest pulmonary emboli. Tracheobronchial tree: Patent where visualized. Mediastinum and Krysta: No dominant adenopathy or fluid collection. Pulmonary parenchyma: No consolidation or dominant measurable mass. No architectural distortion. Atel ectasis in the right middle lobe. Pleura: No effusion or pneumothorax. Heart: The heart is not dilated. No coronary artery calcifications are seen. No pericardial effusion. Aorta: Thoracic aorta non-dilated. No dissection. Mild atherosclerosis. Upper abdomen: Unremarkable. Bones: Degenerative changes. Soft tissues: Gynecomastia right greater than left. IMPRESSION: No evidence of pulmonary embolism, thoracic aortic dissection or aneurysm. RADIATION DOSE DELIVERED: 408.08mGy.cm Total DLP DATA REPOSITORY: All CT scans at this facility are submitted to the National Radiology Data Registry (NRDR) Dose Index Registry (DIR) with the [employer] (ACR). RADIATION OPTIMIZATION: All CT scans at this facility use at least one of these dose optimization te chniques: automated exposure control; mA and/or kV adjustment per patient size (includes targeted exa ms where dose is matched to clinical indication); or iterative reconstruction.
--- NOTE | 2019-10-15 11:33 | ED.GENADUL_ITS ---
Discharge Plan Disposition Patient Disposition: HOME Condition: Stable Discharge Details Chief Complaint: SOB Clinical Impression: Shortness of breath Primary Care Provider: Garth Marroquin ED Provider: Colton Farooq Home Meds and New Rx's Prescriptions: Continued acetaminophen [Tylenol Extra Strength] 500 mg tablet 500 mg PO Q4H PRNRF: 0 aspirin 81 mg tablet,delayed release (DR/EC) 81 mg PO DAILY 90 Days Qty: 90 RF: 3 Jardiance 10 mg tablet 10 mg PO QAM Qty: 30 RF: 6 metformin 500 mg tablet extended release 24 hr 1,000 mg PO DAILY Qty: 180 RF: 3 (DME) lancets [FreeStyle Lancets] 28 gauge misc See Rx Instructions .ROUTE .MEDSUPPLY Qty: 25 RF: 0 (DME) FreeStyle Lite Strips Strip See Rx Instructions .ROUTE .MEDSUPPLY Qty: 100 RF: 3 clotrimazole 1 % ointment 1 applic TP BID Qty: 56.7 RF: 0 sucralfate [Carafate] 100 mg/mL suspension 10 ml PO BID PRN (Reason: chest pain) Qty: 420 RF: 1 atorvastatin 20 mg tablet 20 mg PO DAILY Qty: 90 RF: 3 albuterol sulfate [Ventolin HFA] 90 mcg/actuation HFA aerosol inhaler 1 - 2 puff Inhalation Q4H PRN Qty: 1 RF: 0 omeprazole 40 mg capsule,delayed release(DR/EC) 40 mg PO DAILY Qty: 90 RF: 3 lisinopril 30 mg tablet 30 mg PO DAILY Qty: 90 RF: 3 amlodipine 2.5 mg tablet 2.5 mg PO DAILY Qty: 90 RF: 3 cholecalciferol (vitamin D3) [Vitamin D3] 50 mcg (2,000 unit) tablet 2,000 unit PO DAILY Qty: 90 RF: 3 nitroglycerin [Nitrostat] 0.4 mg tablet, sublingual 0.4 mg Sublingual Q5 MIN PRN X3 Qty: 100 RF: 1 Discharge Instructions Instructions: Dyspnea (ED) Additional Instructions: Please ventilate your garage and be sure to install carbon monoxide detector. Use your albuterol inhaler as prescribed 2 puffs every 4 hours as needed for shortness of breath or wheeze. Please contact your primary care physician to arrange follow-up. Return to the ER for any worsening or new concerning symptoms. Referrals: Garth Marroquin DO [Primary Care Provider] - Discharge Data Discharge Date/Time-TO BE ENTERED AT DEPARTURE: 10/15/19 13:20 Medical Decision Making 1135 --54-year-old male presents with shortness of breath and lightheadedness for the past 1 to 2 hours. Consider ACS. Screening ECG was reviewed and interpreted by me: Please see report, sinus rhythm with no STEMI, nondiagnostic. Plan to check troponin. Consider pulmonary embolism. Patient is not tachycardic and not hypoxic. He has no lower extremity swelling or calf pain. Plan to check d-dimer. Consider spontaneous pneumothorax. Lungs are clear to auscultation. Chest x- ray reviewed and interpreted by me: No acute cardiopulmonary disease noted. Patient is a chronic smoker. He has not yet been diagnosed with COPD. I will give a DuoNeb treatment to see if this helps his symptoms. 12:35 --CT of the chest was interpreted by radiology: IMPRESSION: 1. No evidence of pulmonary embolism. 2. Plate atelectatic changes in the right middle lobe. 3. No lung findings to suggest the presence of any COVID-19 lung disease Patient has been on cardiac tech while in the emergency room and has had no alarms or arrhythmia noted. Patient reassessed and notes significant improvement after nebulizer treatment. Patient notes symptoms completely resolved and feels like I could run a race. Patient is prescribed albuterol inhaler. I will encourage him to use this over the next few days and follow-up with his primary care physician. I will provide a spacer for his inhaler. Will order PFT to expedite outpatient work-up. Respiratory therapy was consulted to evaluate the patient. Usual customary discharge instructions were reviewed with the patient. HPI General Mode of arrival: ambulatory . Date/Time Provider Initiated Documentation: 10/15/19 10:37 . Limitations to Documentation: no limitations . Information obtained by: patient . HPI Narrative: 54-year-old male with history of diabetes, hypertension, chronic kidney disease noted in the past, here with chief complaint of shortness of breath. Patient notes he has had shortness of breath for the past 1 hour. Patient notes symptoms started while he was working in his garage. There was no running motors at the time. He states he suddenly felt dizzy, lightheaded, and short of breath. Symptoms moderate. No modifiers. No associated chest pain. No associated fever or cough. No leg swelling or calf pain. No recent immobility. Patient denies COVID-19 contacts. No recent travel. Patient states that earlier this morning he was feeling quite well. R elated Data Home Medications Medication Instructions Recorded Confirmed acetaminophen 500 mg tablet 500 mg PO Q4H PRN 10/26/17 10/15/19 clotrimazole 1 % topical ointment 1 applic TP BID #56.7 gm 09/06/18 10/15/19 atorvastatin 20 mg tablet 20 mg PO DAILY #90 tab 11/04/18 10/15/19 aspirin 81 mg tablet,delayed 81 mg PO DAILY 90 Days #90 tabec 01/07/19 10/15/19 release albuterol sulfate 90 mcg/actuation 1 - 2 puff INHALATION Q4H PRN #1 01/24/19 10/15/19 aerosol inhaler inhaler omeprazole 40 mg capsule,delayed 40 mg PO DAILY #90 cap 02/01/19 10/15/19 release lisinopril 30 mg tablet 30 mg PO DAILY #90 tab-cap 03/03/19 10/15/19 empagliflozin 10 mg tablet 10 mg PO QAM #30 tab 04/11/19 10/15/19 metformin 500 mg tablet,extended 1,000 mg PO DAILY #180 tab-cap 04/11/19 10/15/19 release 24 hr amlodipine 2.5 mg tablet 2.5 mg PO DAILY #90 tab-cap 06/13/19 10/15/19 cholecalciferol (vitamin D3) 50 2,000 unit PO DAILY #90 tab-cap 06/13/19 10/15/19 mcg (2,000 unit) tablet blood sugar diagnostic #100 each 08/29/19 10/13/19 lancets 28 gauge #25 each 08/29/19 10/13/19 nitroglycerin 0.4 mg sublingual 0.4 mg SUBLINGUAL Q5 MIN PRN X3 09/21/19 10/15/19 tablet #100 tab sucralfate 100 mg/mL oral 10 ml PO BID PRN #420 ml 10/13/19 10/15/19 suspension Previous Rx's Medication Instructions Recorded clotrimazole 1 % topical ointment 1 applic TP BID #56.7 gm 09/06/18 atorvastatin 20 mg tablet 20 mg PO DAILY #90 tab 11/04/18 aspirin 81 mg tablet,delayed 81 mg PO DAILY 90 Days #90 tabec 01/07/19 release albuterol sulfate 90 mcg/actuation 1 - 2 puff INHALATION Q4H PRN #1 01/24/19 aerosol inhaler inhaler omeprazole 40 mg capsule,delayed 40 mg PO DAILY #90 cap 02/01/19 release lisinopril 30 mg tablet 30 mg PO DAILY #90 tab-cap 03/03/19 empagliflozin 10 mg tablet 10 mg PO QAM #30 tab 04/11/19 metformin 500 mg tablet,extended 1,000 mg PO DAILY #180 tab-cap 04/11/19 release 24 hr amlodipine 2.5 mg tablet 2.5 mg PO DAILY #90 tab-cap 06/13/19 cholecalciferol (vitamin D3) 50 2,000 unit PO DAILY #90 tab-cap 06/13/19 mcg (2,000 unit) tablet blood sugar diagnostic #100 each 08/29/19 nitroglycerin 0.4 mg sublingual 0.4 mg SUBLINGUAL Q5 MIN PRN X3 09/21/19 tablet #100 tab sucralfate 100 mg/mL oral 10 ml PO BID PRN #420 ml 10/13/19 suspension Allergies Allergy/AdvReac Type Severity Reaction Status Date / Time celecoxib Allergy Intermediate Rash, Verified 10/15/19 10:42 urticaria naproxen Allergy Intermediate Itchy Welts Verified 10/15/19 10:42 prednisone AdvReac Unknown Upset Verified 10/15/19 10:42 stomach, fatigue General Stated Complaint: SOB JAMES: 2 Review of Systems All systems reviewed & are unremarkable except as noted in HPI and below Constitutional Constitutional: Denies fever(s) Cardiovascular Cardiovascular: Reports dyspnea Respiratory Respiratory: Reports dyspnea Genitourinary Genitourinary: Reports other (Normal urination) [facility] Medical History Abdominal obesity (Acute) Abnormal stress test (Chronic) Chronic kidney disease (CKD), stage III (moderate) (Chronic 05/26/16) ? due to DM or to hypertension Complex regional pain syndrome (Chronic 06/27/13) Diabetes mellitus type 2 in obese (Chronic 02/19/16) presented with polyuria, elevated FS on friend's glucometer, A1c 14 at [facility] ER Essential hypertension (Chronic) goal <140/85 Gastroesophageal reflux disease without esophagitis (Chronic 12/05/11) ER 11/2014 rx PPI Mixed hyperlipidemia (Chronic 02/16/01) low HDL 27; SL HIGH TG; CV RISK (12/2016): 27%: rec Statin Obesity, unspecified (Chronic 12/05/11) 1993 165#; 180 gives BMI <30 Obstructive sleep apnea (Chronic 03/10/16) [id number], severe in REM sleep Sleep study PSG on 03/10/16: AHI 20.1; SPO2 shailesh 82%; CPAP begun 06/08/16. with improvement in fatigue 06/29/16 restudied higher pressures needed assoc. with treatment of central sleep apnea Paresthesias (Resolved 10/27/16) nocturnal, bilateral, R>L, Median nerve, probable CTS Sessile colonic polyp (Inactive 09/26/14) @ transverse colon, sigmoid Tobacco use disorder (Chronic) Quit 2019 Vitamin D deficiency (Chronic) Surgical History Cardiac Cath (Chronic 03/24/17) [facility] [place] Colonoscopy - IV Sedation (Inactive 09/26/14) [facility] Perri, serrated polyp, fragments of sessile serrated adenoma Cystoscopy w/ joe retrograde pyelogram (Inactive 03/01/15) Extraction of cataract (Chronic 12/17/16) Left Radha Manzo; Natividad 11/19/16 Family History Father , lung cancer at age 67. Essential hypertension Neoplasm Mother Diabetes Essential hypertension Sister No problems noted. Sister No problems noted. Social History Smoking/Tobacco Use Status: Current every day Tobacco Type: cigarettes Smoking packs per day: 0.75 Smoking cigarettes per day: 15.0 Tobacco: How many years used: 41 Quit status: considering quitting Alcohol Intake: former Drug use: Never Substance use type: does not use Household members: significant other Housing: apartment Number of Children: 3 Communication Needs: None Do you need help understanding health information?: Often Current gender identity: male What is your relationship status?: living with partner Panel score (0-1 are the most socially isolated patients): 1 What type of physical activity do you participate in: none Seatbelt use: always Drive intox or ride w/intox class a regional drivers: No Working smoke detector in home: No Fire extinguisher in home: No Carbon monox detector in home: No Do you feel safe at home: Yes Do you feel safe in your relationship?: Yes Exam Const General: cooperative and no acute distress HENMT Mouth: moist mucous membranes Eyes Conjunctivae: normal conjunctivae Sclera: normal sclerae Neck Neck: trachea midline and supple Resp Effort & Inspection: able to speak in complete sentences, no cough and tachypneic Auscultation: clear to auscultation bilaterally, no rales, no rhonchi and no wheezes Cardio Jugular venous pressure: no JVD Rate: regular rate and not tachycardic Rhythm: regular rhythm GI Palpation: soft, not firm, no guarding, no masses, not rigid and nontender Skin General skin exam: no rashes or lesions noted Neuro General: patient alert, patient awake, patient oriented x3 and tone normal Extrem General: no calf tenderness and no edema Psych Appearance: grossly normal Mental Status: mental status grossly normal Course Vital Signs Vital signs: Vital Signs Temperature 36.5 C 10/15/19 10:36 Pulse 65 10/15/19 10:36 Respiratory Rate 24 10/15/19 10:36 Blood Pressure 144/58 H 10/15/19 10:36 Pulse Oximetry 96 10/15/19 10:36 Temperature 36.5 C 10/15/19 10:36 Temperature Source Skin 10/15/19 10:36 Pulse 65 10/15/19 10:36 Respiratory Rate 24 10/15/19 10:36 Respiratory Effort 10/15/19 11:00 Respiratory Depth Shallow 10/15/19 11:00 Respiratory Pattern Tachypnea 10/15/19 11:00 Blood Pressure 144/58 H 10/15/19 10:36 Blood Pressure Position Supine 10/15/19 10:36 Pulse Oximetry 96 10/15/19 10:36 Oxygen Delivery Method Room Air 10/15/19 10:36 Oxygen Flow Rate 0 10/15/19 10:36 Pain Level 0 10/15/19 10:36 Lab/Test Results Lab/Test Results: Laboratory Tests Range/Units 10/15/19 10/15/19 10:52 10:52 WBC (4.4-10.8) 10^3/uL 9.34 RBC (4.36-5.78) 10^6/uL 5.54 Hgb (13.5-17.5) g/dL 16.3 Hct (40.0-50.0) % 49.3 MCV (80-95) fL 89.0 MCH (27.0-33.0) pg 29.4 MCHC (32.0-36.0) % 33.1 RDW (11.8-14.1) % 13.7 Plt Count (130-400) 10^3/uL 229 MPV (8.0-11.0) fL 10.8 Immature Gran % 1.2 Neutrophils % 57.4 Lymphocytes % 27.2 Monocytes % 10.2 Eosinophils % 3.0 Basophils % 1.0 Nucleated RBC % % 0 Absolute Neutrophils (1.2-6.7) 10^3/uL 5.37 Absolute Lymphocytes (1.2-3.4) 10^3/uL 2.54 Absolute Monocytes (0.1-0.8) 10^3/uL 0.95 H Absolute Eosinophils (0.0-0.7) 10^3/uL 0.28 Absolute Basophils (0.0-0.2) 10^3/uL 0.09 Sodium (136-145) mmol/L 138 Potassium (3.5-5.1) mmol/L 3.7 Chloride (98-107) mmol/L 104 Carbon Dioxide (21.0-32.0) mmol/L 21.5 Anion Gap (3-11) mmol/L 12.5 H BUN (7-18) mg/dL 18 Creatinine (0.70-1.30) mg/dL 1.27 Estimated GFR/1.73 m2 (mL/min/1.73m2) 58.66 Glucose (74-106) mg/dL 137 H Calcium (8.5-10.1) mg/dL 8.8 Total Bilirubin (0.2-1.0) mg/dL 0.4 AST (15-37) U/L 19 ALT (16-63) U/L 39 Alkaline Phosphatase (46-116) U/L 90 Troponin I (<0.06) ng/mL < 0.05 Total Protein (6.4-8.2) g/dL 7.2 Albumin (3.4-5.0) g/dL 3.8
[2019-10-15 11:39] LABS: D-Dimer 538 ng/mlFEU (<500)
--- NOTE | 2019-10-15 11:40 | DI.VRAD_ITS ---
PROCEDURE INFORMATION: Exam: XR Chest, 1 View Exam date and time: 10/15/2019 11:04 AM Age: 54 years old Clinical indication: Shortness of breath TECHNIQUE: Imaging protocol: XR of the chest Views: 1 view. COMPARISON: CR XR CHEST 2V PA LATERAL 09/20/2019 3:55 PM FINDINGS: Lungs: The left lung is clear. Vague opacities in the right middle lobe representing atelectatic changes. Pleural space: No pleural effusions. Heart/Mediastinum: Mild cardiomegaly. Bones/joints: Unremarkable. IMPRESSION: Mild cardiomegaly with plate atelectatic changes in the right middle lobe. No pneumonia Dictated and Authenticated by: Carlitos Aguilar MD. Ordering:HILARIA Segura MD
[2019-10-15] MEDS: Normal Saline Flush 10 ML SYR IVP (11:50)
[2019-10-15] MEDS: Omnipaque 350 MG/ML 100 ML BTL IJ (11:51)
[2019-10-15] MEDS: Normal Saline - Diluent 50 ML VIAL IV (11:51)
[2019-10-15] MEDS: Albuterol/Ipratropium 3 ML UPD VIAL UPD (12:15)
--- NOTE | 2019-10-15 12:32 | DI.VRAD_ITS ---
PROCEDURE INFORMATION: Exam: CT Angiography Chest With Contrast Exam date and time: 10/15/2019 11:43 AM Age: 54 years old Clinical indication: Shortness of breath and other: Dizziness; Patient HX: Near syncope TECHNIQUE: Imaging protocol: Computed tomographic angiography of the chest with intravenous contrast. 3D rendering (Not supervised by radiologist): MIP and/or 3D reconstructed images were created by the technologist. Radiation optimization: All CT scans at this facility use at least one of these dose optimization techniques: automated exposure control; mA and/or kV adjustment per patient size (includes targeted exams where dose is matched to clinical indication); or iterative reconstruction. Contrast material: OMNIPAQUE 350; Contrast volume: 84 ml; Contrast route: INTRAVENOUS (IV); COMPARISON: CT CHEST PE CTA 09/17/2019 11:21 AM FINDINGS: Pulmonary arteries: No evidence of pulmonary embolism. Aorta: A normal thoracic aorta. Lungs: Plate atelectatic changes in the right middle lobe No peripherally located ground-glass opacities in the lungs to suggest a possible COVID-19 lung pneumonitis Pleural space: Unremarkable. No pneumothorax. No pleural effusion. Heart: Unremarkable. No cardiomegaly. No pericardial effusion. Lymph nodes: Unremarkable. No enlarged lymph nodes. Liver: Possible cirrhosis of the liver. Bones/joints: Unremarkable. No acute fracture. Soft tissues: Unremarkable. IMPRESSION: 1. No evidence of pulmonary embolism. 2. Plate atelectatic changes in the right middle lobe. 3. No lung findings to suggest the presence of any COVID-19 lung disease Dictated and Authenticated by: Carlitos Aguilar MD. Ordering:HILARIA Segura MD
--- NOTE | 2019-10-15 12:41 | NUR.NOTE ---
Referral faxed to [facility] Dr. Zhou.Nursing Note:
--- NOTE | 2019-10-15 13:17 | RESPIRATORY ---
Pt presented with complaints of SOB to ER. Upon evaluation Pt states that he uses his cpap nightly but is hearing him gasping and sounding like a guppy while he sleeps. Pt was advised to follow up with his pcp and have cpap levels re-checked as well as a new PFT as pt is still a current smoker and last pft was in 2016. Post neb pt says he is feeling better and was given an Aero-chamber to use with MDI, and educated on use.
== END 2019-10-15 13:20 | disposition home or self-care (01) ==
PROVIDERS: Emergency Provider Student in an Organized Health Care Education/Training Program; PCP Family Medicine
DX: R06.02 Shortness of breath (principal); R42 Dizziness and giddiness; F17.210 Nicotine dependence, cigarettes, uncomplicated; E11.22 Type 2 diabetes mellitus with diabetic chronic kidney disease; Z79.84 Long term (current) use of oral hypoglycemic drugs; I10 Essential (primary) hypertension; N18.3 Chronic kidney disease, stage 3 (moderate)
CPT/HCPCS: 36415; 71275; 80053; 93005; 94640; 99285; 71045; 84484; 85025; 85379; 93010; 94664; 99284; J3490; J7620

== ENCOUNTER → 2019-10-18 13:07 | Outpatient (BNVA) | payer MEDICARE, MEDICAID, SELFPAY | PROVIDERS: PCP Family Medicine; Referring Provider Family Medicine; Visit Provider Internal Medicine Cardiovascular Disease | DX: R07.89 Other chest pain (principal); R06.02 Shortness of breath; E78.2 Mixed hyperlipidemia; E11.22 Type 2 diabetes mellitus with diabetic chronic kidney disease; Z79.84 Long term (current) use of oral hypoglycemic drugs; N18.3 Chronic kidney disease, stage 3 (moderate); I12.9 Hypertensive chronic kidney disease with stage 1 through stage 4 chronic kidney disease, or unspecified chronic kidney disease | CPT/HCPCS: 99203; 99214 ==

== ENCOUNTER 2019-10-24 07:39 | Outpatient (CLI) | payer MEDICARE, MEDICAID, SELFPAY ==
[2019-10-25 14:43] LABS: COVID-19 RT-PCR Result NEGATIVE (Negative)
== END 2019-10-24 07:59 ==
PROVIDERS: PCP Family Medicine; Visit Provider Family Medicine
DX: Z11.59 Encounter for screening for other viral diseases (principal); Z01.811 Encounter for preprocedural respiratory examination
CPT/HCPCS: U0003

== ENCOUNTER 2019-10-27 03:15 | Outpatient (CLI) | payer MEDICARE, MEDICAID, SELFPAY ==
[2019-10-27] MEDS: Inhaler, Assist Device 1 EACH MC (09:17)
[2019-10-27] MEDS: Albuterol HFA 18 GM 200 PUFF INH IH (09:17)
[2019-10-27] MEDS: Methacholine 100 MG VIAL IH (09:17)
--- NOTE | 2019-10-31 08:30 | W.PFT ---
Date of service: 10/27/19 Time of Service: 08:02 Pulmonary Function Test Result Interpretation Spirometry: No evidence of obstructive airways disease no bronchodilator Impression Normal spirometry, no bronchodilator response Clinical Correlation therefore is recommended. Methacholine Challnege Test Date of Service Date of Service: 10/27/2019 Note After normal spirometry methacholine challenge testing was carried out up to a methacholine concentration of 16 mg/mL, at which point the patient had a 7% drop in FEV1. Impression Negative methacholine challenge test
== END 2019-10-27 03:35 ==
PROVIDERS: PCP Family Medicine; Visit Provider Family Medicine
DX: R06.02 Shortness of breath (principal)
CPT/HCPCS: 94060; 95070; J7674

== ENCOUNTER 2019-12-15 12:40 | Outpatient (CLI) | payer MEDICARE, MEDICAID, SELFPAY ==
--- NOTE | 2019-12-15 07:15 | DI.RAD_ITS ---
EXAM: XR LUMBAR SPINE COMPLETE CLINICAL HISTORY: Sudden onset low back pain, r/o compression frx,M54.5 TECHNIQUE: COMPARISON: CR LUMBAR SPINE COMPLETE from 06/02/2014 FINDINGS: Five views were obtained. There are hypertrophic changes of the vertebral endplates of the lower tho racic spine, particularly at the T11-12 and T12-L1 level. Slight hypertrophic spurring vertebral end plates and facet joints of lower lumbar spine also noted. Intervertebral disc spaces are well mainta ined. No evidence of spondylolysis or spondylolisthesis. IMPRESSION: Mild degenerative changes as described above. No evidence of compression fracture. RADIATION DOSE DELIVERED: Total DLP
== END 2019-12-15 13:00 ==
PROVIDERS: PCP Family Medicine; Visit Provider Family Medicine
DX: M47.814 Spondylosis without myelopathy or radiculopathy, thoracic region (principal); M54.5 Low back pain
CPT/HCPCS: 72110

== ENCOUNTER 2020-02-21 01:25 | Outpatient (CLI) | payer MEDICARE, MEDICAID, SELFPAY ==
--- NOTE | 2020-02-21 08:00 | DI.US_ITS ---
EXAM: US SCROTUM CLINICAL HISTORY: Assess R testicle,RT TESTICULAR PAIN,N50.811,N50.89. TECHNIQUE: Scrotal ultrasound performed using grayscale, color-flow and spectral Doppler analysis. COMPARISON: No exams were available for comparison FINDINGS: Right testicle: 4.7 x 3.4 x 3.5 cm Echogenicity: Normal. Contour: Smooth. Mass: None seen. Microlithiasis: None. Hydrocele: There is a right hydrocele which measures 4.7 x 3 x 3.9 cm. Variocele: None. Hernia: No peristalsing bowel loop identified. Epididymis: 5 mm right spermatocele. Left testicle: 4.4 x 3 x 3.1 cm Echogenicity: Normal. Contour: Smooth. Mass: None seen. Microlithiasis: None. Hydrocele: There is a left hydrocele which measures 5.5 x 2.3 x 5.4 cm. Variocele: None. Hernia: No peristalsing bowel loop identified. Epididymis: Normal. DOPPLER: Color: Symmetric and uniform, no hyperemia. Duplex: Bilateral testicular arterial waveforms visualized. IMPRESSION: 1. Unremarkable testicles. 2. Bilateral hydroceles. DATA REPOSITORY:
--- NOTE | 2020-02-21 08:00 | DI.US_ITS ---
EXAM: US HERNIA CLINICAL HISTORY: R/O inguinal/femoral hernia (R),RT TESTICULAR PAIN,N50.89,N50.811. TECHNIQUE: Ultrasound was performed using standard protocol. COMPARISON: No exams were available for comparison FINDINGS: Sonographic assessment utilizing grayscale and color Doppler imaging was performed and targeted to th e area of clinical concern. No sonographic evidence of a hernia in the right inguinal region is noted. IMPRESSION: No sonographic evidence of a right inguinal hernia. DATA REPOSITORY:
== END 2020-02-21 01:45 ==
PROVIDERS: PCP Family Medicine; Visit Provider Nurse Practitioner Adult Health
DX: N50.811 Right testicular pain (principal); N43.2 Other hydrocele
CPT/HCPCS: 76857; 76870

== ENCOUNTER 2020-03-01 01:35 | Outpatient (CLI) | payer MEDICARE, MEDICAID, SELFPAY ==
--- NOTE | 2020-03-01 07:15 | DI.CT_ITS ---
EXAM: CT ABDOMEN PELVIS W CLINICAL HISTORY: LLQ abdominal pain, r/o early appendicitis,R10.9 TECHNIQUE: COMPARISON: CT CT CHEST PE CTA from 10/15/2019 FINDINGS: CT examination of the abdomen and pelvis was performed with bolus infusion of 100 cc of Omnipaque 350 . Images obtained through the lung bases are unremarkable. There is marked hepatic steatosis. No focal hepatic lesion seen. Spleen is unremarkable in appearance.. Gallbladder and bile ducts are unremarkable. Pancreas is unremarkable in appearance. Adrenals appear normal bilaterally. Kidneys appear normal except for a small renal cortical cysts seen bilaterally with no evidence of re nal mass, hydronephrosis, or nephrolithiasis There is no evidence of abdominal or pelvic adenopathy. Abdominal aorta is of normal diameter and no major vascular abnormality is seen. Appendix is normal. No evidence diverticulitis or bowel obstruction. No significant abdominal wall hernia seen. Impression: Negative CT examination of the abdomen and pelvis. No evidence of appendicitis or diverticulitis. RADIATION DOSE DELIVERED: 1,131.03mGy.cm Total DLP 1,131.03mGy.cm Total DLP DATA REPOSITORY: All CT scans at this facility are submitted to the National Radiology Data Registry (NRDR) Dose Index Registry (DIR) with the [employer] ([employer]). RADIATION OPTIMIZATION: All CT scans at this facility use at least one of these dose optimization te chniques: automated exposure control; mA and/or kV adjustment per patient size (includes targeted exa ms where dose is matched to clinical indication); or iterative reconstruction.
[2020-03-01] MEDS: Omnipaque 350 MG/ML 50 ML BTL IJ (08:38)
[2020-03-01] MEDS: Breeza Beverage 473 ML BTL PO (08:38)
[2020-03-01 08:42] LABS: BUN 17 mg/dL (7-18); CREATININE 1.33 mg/dL (0.70-1.30); Calcium 9.1 mg/dL (8.5-10.1); Chloride 102 mmol/L (98-107); Estimated GFR 55.62 (mL/min/1.73m2); Glucose 114 mg/dL (74-106); Potassium 4.7 mmol/L (3.5-5.1); Sodium 138 mmol/L (136-145)
[2020-03-01] MEDS: Normal Saline - Diluent 50 ML VIAL IV (09:54)
[2020-03-01] MEDS: Omnipaque 350 MG/ML 100 ML BTL IJ (09:54)
== END 2020-03-01 01:55 ==
PROVIDERS: PCP Family Medicine; Visit Provider Family Medicine
DX: R10.32 Left lower quadrant pain (principal); E11.9 Type 2 diabetes mellitus without complications
CPT/HCPCS: 80048; 74177; J3490; Q9967

== ENCOUNTER 2020-03-15 05:02 | Emergency (ER) | payer MEDICARE, MEDICAID, SELFPAY ==
[2020-03-15 05:06] VITALS: BP 135/52; PULSE 72; RESP 20; TEMP 36.5; O2SAT 97
--- NOTE | 2020-03-15 05:06 | ED.GENADUL_ITS ---
Discharge Plan Disposition Patient Disposition: HOME Condition: Good Discharge Details Clinical Impression: Abdominal wall pain in right lower quadrant Primary Care Provider: Garth Marroquin ED Provider: Gregor Solorzano Home Meds and New Rx's Prescriptions: New lidocaine 5 % adhesive patch,medicated 1 patch topical DAILY Qty: 15 RF: 0 Continued acetaminophen [Tylenol Extra Strength] 500 mg tablet 500 mg PO Q4H PRNRF: 0 metformin 500 mg tablet extended release 24 hr 1,000 mg PO DAILY Qty: 180 RF: 3 (DME) lancets [FreeStyle Lancets] 28 gauge misc See Rx Instructions .ROUTE .MEDSUPPLY Qty: 25 RF: 0 (DME) FreeStyle Lite Strips Strip See Rx Instructions .ROUTE .MEDSUPPLY Qty: 100 RF: 3 albuterol sulfate [Ventolin HFA] 90 mcg/actuation HFA aerosol inhaler 1 - 2 puff Inhalation Q4H PRN Qty: 1 RF: 6 sucralfate [Carafate] 100 mg/mL suspension 10 ml PO BID PRN (Reason: chest pain) Qty: 420 RF: 1 atorvastatin 20 mg tablet 20 mg PO DAILY Qty: 90 RF: 3 amlodipine 2.5 mg tablet 2.5 mg PO DAILY Qty: 90 RF: 3 cholecalciferol (vitamin D3) [Vitamin D3] 50 mcg (2,000 unit) tablet 2,000 unit PO DAILY Qty: 90 RF: 3 nitroglycerin [Nitrostat] 0.4 mg tablet, sublingual 0.4 mg Sublingual Q5 MIN PRN X3 Qty: 100 RF: 1 Jardiance 10 mg tablet 10 mg PO QAM Qty: 30 RF: 6 aspirin 81 mg tablet,delayed release (DR/EC) 81 mg PO DAILY 90 Days Qty: 90 RF: 3 omeprazole 40 mg capsule,delayed release(DR/EC) 40 mg PO DAILY Qty: 90 RF: 3 lisinopril 30 mg tablet 30 mg PO DAILY Qty: 90 RF: 3 Discharge Instructions Additional Instructions: Suspect your pain is related to how you abdomen is lying against your pants when sitting. Given negative CAT scan and duration of discomfort unlikely to be anything intra-abdominal. You may want to consider trying sweatpants. He may continue Tylenol. We can try lidocaine patch to see if this helps with the discomfort at all. If they help and your insurance does not cover the prescription patches ask the pharmacist for 4% [id number] lidocaine patches. Suspect losing weight would help lessen your pain. Follow-up with primary care. Return to ED for fever, vomiting, new or worsening pain. Referrals: Garth Marroquin DO [Primary Care Provider] - Medical Decision Making Patient area of pain is right where his abdominal pannus hangs over his pants which are relatively tight due to the small size of his waist. He also wears suspenders with the metal clasp holding his pants in the same general area. He does not have pain with lying or standing. He has pain with sitting and I suspect it is related to abdominal wall pain and irritation because of his abdominal obesity/pannus and his pants. In reviewing primary care records, he seemed to have the same thought. Suggested to the patient that possibly wearing sweatpants which are softer without the suspenders may help. As this appears to be abdominal wall pain can also try Lidoderm patch over the view of any help. Losing weight is a long-term solution. May continue Tylenol as needed. Follow- up with primary care. Return to ED for fever, vomiting, new or worsening pain. Medical Records Medical records reviewed: Yes I reviewed the patient's medical records. HPI General Mode of arrival: ambulatory . Date/Time Provider Initiated Documentation: 03/15/20 05:03 . Limitations to Documentation: no limitations . Information obtained by: patient, RN notes reviewed and old records reviewed . HPI Narrative: Patient presents to ED with right lower abdominal pain. Patient reports having this for at least 2 months if not longer. He had a CT scan of the abdomen pelvis last week which was unremarkable. He has been seen by his primary care for this problem. He reports the pain is worse when he sitting. Is better if he is lying down or standing. He has been using Tylenol. He feels like the pain is getting worse. He denies fever, vomiting, diarrhea, urinary symptoms, testicle pain, back pain. Related Data Home Medications Medication Instructions Recorded Confirmed acetaminophen 500 mg tablet 500 mg PO Q4H PRN 10/26/17 03/15/20 atorvastatin 20 mg tablet 20 mg PO DAILY #90 tab 11/04/18 03/15/20 metformin 500 mg tablet,extended 1,000 mg PO DAILY #180 tab-cap 04/11/19 03/15/20 release 24 hr amlodipine 2.5 mg tablet 2.5 mg PO DAILY #90 tab-cap 06/13/19 03/15/20 cholecalciferol (vitamin D3) 50 2,000 unit PO DAILY #90 tab-cap 06/13/19 03/15/20 mcg (2,000 unit) tablet blood sugar diagnostic #100 each 08/29/19 02/23/20 lancets 28 gauge #25 each 08/29/19 02/23/20 nitroglycerin 0.4 mg sublingual 0.4 mg SUBLINGUAL Q5 MIN PRN X3 09/21/19 03/15/20 tablet #100 tab sucralfate 100 mg/mL oral 10 ml PO BID PRN #420 ml 10/13/19 03/15/20 suspension albuterol sulfate 90 mcg/actuation 1 - 2 puff INHALATION Q4H PRN #1 10/20/19 03/15/20 aerosol inhaler inhaler empagliflozin 10 mg tablet 10 mg PO QAM #30 tab 11/18/19 03/15/20 aspirin 81 mg tablet,delayed 81 mg PO DAILY 90 Days #90 tabec 02/02/20 03/15/20 release omeprazole 40 mg capsule,delayed 40 mg PO DAILY #90 cap 02/02/20 03/15/20 release lisinopril 30 mg tablet 30 mg PO DAILY #90 tab-cap 03/13/20 03/15/20 lidocaine 1 patch TOPICAL DAILY #15 ea 03/15/20 Previous Rx's Medication Instructions Recorded atorvastatin 20 mg tablet 20 mg PO DAILY #90 tab 11/04/18 metformin 500 mg tablet,extended 1,000 mg PO DAILY #180 tab-cap 04/11/19 release 24 hr amlodipine 2.5 mg tablet 2.5 mg PO DAILY #90 tab-cap 06/13/19 cholecalciferol (vitamin D3) 50 2,000 unit PO DAILY #90 tab-cap 06/13/19 mcg (2,000 unit) tablet blood sugar diagnostic #100 each 08/29/19 nitroglycerin 0.4 mg sublingual 0.4 mg SUBLINGUAL Q5 MIN PRN X3 09/21/19 tablet #100 tab sucralfate 100 mg/mL oral 10 ml PO BID PRN #420 ml 10/13/19 suspension albuterol sulfate 90 mcg/actuation 1 - 2 puff INHALATION Q4H PRN #1 10/20/19 aerosol inhaler inhaler empagliflozin 10 mg tablet 10 mg PO QAM #30 tab 11/18/19 aspirin 81 mg tablet,delayed 81 mg PO DAILY 90 Days #90 tabec 02/02/20 release omeprazole 40 mg capsule,delayed 40 mg PO DAILY #90 cap 02/02/20 release lisinopril 30 mg tablet 30 mg PO DAILY #90 tab-cap 03/13/20 lidocaine 1 patch TOPICAL DAILY #15 ea 03/15/20 Allergies Allergy/AdvReac Type Severity Reaction Status Date / Time celecoxib Allergy Intermediate Rash, Verified 02/23/20 10:42 urticaria naproxen Allergy Intermediate Itchy Welts Verified 02/23/20 10:42 prednisone AdvReac Unknown Upset Verified 02/23/20 10:42 stomach, fatigue General JAMES: 2 Review of Systems Narrative: As documented in HPI otherwise negative as below. Const: no fever, chills, weakness Resp: no cough, SOB, pleuritic pain CV: no CP, diaphoresis, edema, syncope GI: no nausea, vomiting, diarrhea PFSH Medical History Abdominal obesity Abnormal stress test Bilateral hydrocele Chronic kidney disease (CKD), stage III (moderate) (05/26/16) ? due to DM or to hypertension Complex regional pain syndrome (06/27/13) Diabetes mellitus type 2 in obese (02/19/16) presented with polyuria, elevated FS on friend's glucometer, A1c 14 at [facility] Essential hypertension goal <140/85 Gastroesophageal reflux disease without esophagitis (12/05/11) ER 11/2014 rx PPI Mixed hyperlipidemia (02/16/01) low HDL 27; SL HIGH TG; CV RISK (12/2016): 27%: rec Statin Obesity, unspecified (12/05/11) 1993 165#; 180 gives BMI <30 Obstructive sleep apnea (03/10/16) [id number], severe in REM sleep Sleep study PSG on 03/10/16: AHI 20.1; SPO2 shailesh 82%; CPAP begun 06/08/16. with improvement in fatigue 06/29/16 restudied higher pressures needed assoc. with treatment of central sl eep apnea Paresthesias (10/27/16) nocturnal, bilateral, R>L, Median nerve, probable CTS Sessile colonic polyp (09/26/14) @ transverse colon, sigmoid Tobacco use disorder Quit 2019, restarted late in the year Vitamin D deficiency Surgical History Cardiac Cath (03/24/17) [facility] – [place] Colonoscopy - IV Sedation (09/26/14) [facility] Perri, serrated polyp, fragments of sessile serrated adenoma Cystoscopy w/ joe retrograde pyelogram (03/01/15) Extraction of cataract (12/17/16) Left Radha Manzo; R 11/19/16 Family History Father , lung cancer at age 67. Essential hypertension Neoplasm Mother Diabetes Essential hypertension Sister No problems noted. Sister No problems noted. Social History Smoking/Tobacco Use Status: Current every day Tobacco: How many years used: 41 Quit status: considering quitting Smoking risk assessment performed?: Yes Alcohol Intake: former Drug use: Never Substance use type: does not use Household members: significant other Housing: apartment Number of Children: 3 Communication Needs: None Do you need help understanding health information?: Often Current gender identity: male What is your relationship status?: living with partner Panel score (0-1 are the most socially isolated patients): 1 What type of physical activity do you participate in: none Seatbelt use: always 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 HEENT: NC/AT. Normal facial exam. Eyes: Normal conjunctiva and sclera. Neck: Supple. Trachea midline. Lungs: Normal respiratory effort. GI: Soft and nondistended. Tender right lower abdominal area. No abdominal wall hernia or inguinal hernia appreciated. Neuro: A+O x 3. Normal speech, mentation, gait. Cranial nerves II - XII grossly intact. No gross motor or sensory deficit. Skin: Warm and dry without rash.
[2020-03-15] MEDS: Lidocaine 5% Patch 1 PATCH TP (05:26)
--- NOTE | 2020-03-15 05:33 | NUR.NOTE ---
Skin intact under panus. Lidoderm patch a/o
== END 2020-03-15 05:29 | disposition home or self-care (01) ==
LOC: ER 05:31
PROVIDERS: Emergency Provider Emergency Medicine; PCP Family Medicine
DX: R10.31 Right lower quadrant pain (principal); E11.22 Type 2 diabetes mellitus with diabetic chronic kidney disease; Z79.84 Long term (current) use of oral hypoglycemic drugs; I12.9 Hypertensive chronic kidney disease with stage 1 through stage 4 chronic kidney disease, or unspecified chronic kidney disease; N18.30 Chronic kidney disease, stage 3 unspecified
CPT/HCPCS: 99282; 99283

== ENCOUNTER → 2020-03-29 12:34 | Outpatient (BNVA) | payer MEDICARE, MEDICAID, SELFPAY | PROVIDERS: PCP Family Medicine; Referring Provider Family Medicine; Visit Provider Nurse Practitioner Gerontology | DX: R31.29 Other microscopic hematuria (principal); N43.3 Hydrocele, unspecified | CPT/HCPCS: 81003; 99215; G2212 ==

== ENCOUNTER 2020-03-29 19:50 | Outpatient (REF) | payer MEDICARE, MEDICAID, SELFPAY ==
[2020-03-30 18:08] LABS: PSA, Screening 0.8 ng/mL (0.0-3.5)
== END 2020-03-29 19:51 | disposition home or self-care (01) ==
LOC: LBN 19:50
PROVIDERS: PCP Family Medicine; Visit Provider Nurse Practitioner Gerontology
DX: R31.29 Other microscopic hematuria (principal); Z12.5 Encounter for screening for malignant neoplasm of prostate
CPT/HCPCS: 84153

== ENCOUNTER 2020-04-22 11:27 | Emergency (ER) | payer MEDICARE, MEDICAID, SELFPAY ==
[2020-04-22] VITALS (11 sets, daily range): BP systolic 100–117; BP diastolic 43–63; PULSE 59–78; RESP 16–29; TEMP 36.7; O2SAT 95–97
--- NOTE | 2020-04-22 11:45 | DI.CT_ITS ---
EXAM: CT ABDOMEN PELVIS CTA CLINICAL HISTORY: right sided abdominal pain, ?mesenteric ischemia. TECHNIQUE: Imaging Protocol: Axial CT angiography was performed with multi-slice acquisition and m ulti-planar and/or 3D reconstructions. CONTRAST MATERIAL: Intravenous: Omnipaque 350 Contrast volume:95 mL Oral: No COMPARISON: CT CT ABDOMEN PELVIS W from 03/01/2020 FINDINGS: ABDOMEN AND PELVIS: Abdomen: Celiac axis/mesenteric arteries: No evidence of occlusion or significant stenosis. Renal Arteries: No evidence of occlusion or significant stenosis. There is a single renal artery per fusing each kidney. Mild atherosclerosis at the origin of the right renal artery. Aorta: No evidence of occlusion or significant stenosis. No aneurysm or dissection. There is mild atherosclerosis. Pelvis: Iliac Arteries: No evidence of occlusion or significant stenosis. Mild atherosclerosis. Common Femoral Arteries: No evidence of occlusion or significant stenosis. Mild atherosclerosis. ABDOMEN: Lung bases: Normal. Liver: There is diffuse decreased attenuation of the liver consistent with fatty infiltration. No me asurable mass. The liver measures 19 cm in length. Portal, Superior Mesenteric, and Splenic Veins: Unremarkable. No portal venous gas. No pneumatosis. Gallbladder and Biliary Tract: No radiodense calculus or dilation. Pancreas: Normal density, no abnormal calcifications or inflammatory process. Spleen: Normal. Adrenals: No masses seen. Kidneys: Normal size, contour and axis. No radiodense stones or obstructive uropathy. There are bilat eral homogeneously hypodense nodules in both kidneys most consistent with cysts. No further follow-u p is recommended. Bowel: No obstruction or bowel wall thickening. Appendix is unremarkable. There is a duodenal diverti culum adjacent to the pancreatic head. There is diverticulosis of the descending and sigmoid colon b ut no evidence of acute diverticulitis. Peritoneal Cavity: No ascites, collection or mesenteric inflammatory response. No free air. Lymph Nodes: Within normal limits. Bones: Unremarkable. Soft Tissues: Unremarkable. PELVIS: Bladder: Symmetric distention, no gross wall thickening. Reproductive Organs: Unremarkable as visualized. Lymph Nodes: Within normal limits. Bones: Within normal limits. IMPRESSION: 1. No evidence of significant stenosis or vascular occlusion on the CT angiography of the abdomen and pelvis. 2. Unremarkable superior mesenteric vein. No evidence of pneumatosis or portal venous gas. 3. No acute abdominal or pelvic process. 4. Hepatomegaly with hepatic steatosis. 5. Colonic diverticulosis without evidence of acute diverticulitis. RADIATION DOSE DELIVERED: 1,909.08mGy.cm Total DLP 1,909.08mGy.cm Total DLP DATA REPOSITORY: All CT scans at this facility are submitted to the National Radiology Data Registry (NRDR) Dose Index Registry (DIR) with the [employer] (ACR). RADIATION OPTIMIZATION: All CT scans at this facility use at least one of these dose optimization te chniques: automated exposure control; mA and/or kV adjustment per patient size (includes targeted exa ms where dose is matched to clinical indication); or iterative reconstruction.
--- NOTE | 2020-04-22 11:50 | ED.GENADUL_ITS ---
Discharge Plan Disposition Patient Disposition: HOME Condition: Stable Discharge Details Clinical Impression: Abdominal pain Primary Care Provider: Garth Marroquin ED Provider: Danis Crawford Home Meds and New Rx's Prescriptions: New tramadol 50 mg tablet 50 mg PO TID PRN (Reason: pain) Qty: 14 RF: 0 Continued acetaminophen [Tylenol Extra Strength] 500 mg tablet 500 mg PO Q4H PRNRF: 0 (DME) lancets [FreeStyle Lancets] 28 gauge misc See Rx Instructions .ROUTE .MEDSUPPLY Qty: 25 RF: 0 (DME) FreeStyle Lite Strips Strip See Rx Instructions .ROUTE .MEDSUPPLY Qty: 100 RF: 3 albuterol sulfate [Ventolin HFA] 90 mcg/actuation HFA aerosol inhaler 1 - 2 puff Inhalation Q4H PRN Qty: 1 RF: 6 atorvastatin 20 mg tablet 20 mg PO DAILY Qty: 90 RF: 3 amlodipine 2.5 mg tablet 2.5 mg PO DAILY Qty: 90 RF: 3 cholecalciferol (vitamin D3) [Vitamin D3] 50 mcg (2,000 unit) tablet 2,000 unit PO DAILY Qty: 90 RF: 3 nitroglycerin [Nitrostat] 0.4 mg tablet, sublingual 0.4 mg Sublingual Q5 MIN PRN X3 Qty: 100 RF: 1 Jardiance 10 mg tablet 10 mg PO QAM Qty: 30 RF: 6 aspirin 81 mg tablet,delayed release (DR/EC) 81 mg PO DAILY 90 Days Qty: 90 RF: 3 omeprazole 40 mg capsule,delayed release(DR/EC) 40 mg PO DAILY Qty: 90 RF: 3 lisinopril 30 mg tablet 30 mg PO DAILY Qty: 90 RF: 3 metformin 500 mg tablet extended release 24 hr 1,000 mg PO DAILY Qty: 180 RF: 3 Discharge Instructions Additional Instructions: Your cat scan and imaging did not show any concerning findings. The most likely cause of your pain is muscle wall pain follow up as scheduled with gastroenterology if you have severe worsening pain, feel more ill or persistent vomit return to the emergency department Medical Decision Making 54 yo male with hx of ckd, gerd, hld, htn, t2dm, smoker, who comes in with cc of right lower abdominal pain. He has had the pain for about 2 months and has seen his pcp as well as been in the ED for similar pain. Has had negative workups including ct and u/s of the scrotum. Pcp referred to GI but hasn't seen them today. He comes in for increased pain today in the right side of his abdomen. No chest pain, dyspnea, fevers, chills, vomit. He has tenderness to palpation to the right mid and lower abdomen, no scrotal swelling or tenderness and intact cremasteric reflex. Given acute worsening today of pain will obtain cta to evaluate for possible mesenteric ischemia and other entities such as appendicitis. Exam not consistent with testicular torsion so do not feel repeat u/s indicated. patient remains stable and pain significantly better, labs and imaging unremarkable for acute processes. Still has some tenderness on right side of his abdomen without guarding or rebound. Unclear exact cause for his continued pain but exam is reassuring as is his workup and has follow up this month with gastroenterology. Patient is comfortable with plan for d/c and return precautions given and patient understood these instructions Differential Diagnosis Differential Diagnosis: appendicitis, sbo, mesenteric ischemia Medical Records Medical records reviewed: Yes I reviewed the patient's medical records. Imaging Data Radiologic Study: Attestation: I personally reviewed and interpreted this imaging study as follows: Imaging: CT Scan Radiologist's impression: IMPRESSION: 1. No acute findings. 2. Hepatomegaly with diffuse fatty infiltration. 3. Diverticulosis without evidence of diverticulitis Lab Data Lab results reviewed: Yes I reviewed the patient's lab results. HPI General Mode of arrival: ambulatory . Date/Time Provider Initiated Documentation: 04/22/20 11:28 . Limitations to Documentation: no limitations . Information obtained by: patient . History of Present Illness 54 year old M presents to the emergency department with the chief complaint of abdominal pain, described as moderate and severe, Patient reports no radiation. Patient started experiencing this month(s) (2) and it has been constant. No relieving factors improve symptom(s), No exacerbating factors reported . Patient notes no other symptoms.. Related Data Home Medications Medication Instructions Recorded Confirmed acetaminophen 500 mg tablet 500 mg PO Q4H PRN 10/26/17 04/22/20 atorvastatin 20 mg tablet 20 mg PO DAILY #90 tab 11/04/18 04/22/20 amlodipine 2.5 mg tablet 2.5 mg PO DAILY #90 tab-cap 06/13/19 04/22/20 cholecalciferol (vitamin D3) 50 2,000 unit PO DAILY #90 tab-cap 06/13/19 04/22/20 mcg (2,000 unit) tablet blood sugar diagnostic #100 each 08/29/19 03/29/20 lancets 28 gauge #25 each 08/29/19 03/29/20 nitroglycerin 0.4 mg sublingual 0.4 mg SUBLINGUAL Q5 MIN PRN X3 09/21/19 04/22/20 tablet #100 tab albuterol sulfate 90 mcg/actuation 1 - 2 puff INHALATION Q4H PRN #1 10/20/19 04/22/20 aerosol inhaler inhaler empagliflozin 10 mg tablet 10 mg PO QAM #30 tab 11/18/19 04/22/20 aspirin 81 mg tablet,delayed 81 mg PO DAILY 90 Days #90 tabec 02/02/20 04/22/20 release omeprazole 40 mg capsule,delayed 40 mg PO DAILY #90 cap 02/02/20 04/22/20 release lisinopril 30 mg tablet 30 mg PO DAILY #90 tab-cap 03/13/20 04/22/20 metformin 500 mg tablet,extended 1,000 mg PO DAILY #180 tab-cap 04/17/20 release 24 hr tramadol 50 mg PO TID PRN #14 tab 04/22/20 Previous Rx's Medication Instructions Recorded atorvastatin 20 mg tablet 20 mg PO DAILY #90 tab 11/04/18 amlodipine 2.5 mg tablet 2.5 mg PO DAILY #90 tab-cap 06/13/19 cholecalciferol (vitamin D3) 50 2,000 unit PO DAILY #90 tab-cap 06/13/19 mcg (2,000 unit) tablet blood sugar diagnostic #100 each 08/29/19 nitroglycerin 0.4 mg sublingual 0.4 mg SUBLINGUAL Q5 MIN PRN X3 09/21/19 tablet #100 tab albuterol sulfate 90 mcg/actuation 1 - 2 puff INHALATION Q4H PRN #1 10/20/19 aerosol inhaler inhaler empagliflozin 10 mg tablet 10 mg PO QAM #30 tab 11/18/19 aspirin 81 mg tablet,delayed 81 mg PO DAILY 90 Days #90 tabec 02/02/20 release omeprazole 40 mg capsule,delayed 40 mg PO DAILY #90 cap 12/17/20 release lisinopril 30 mg tablet 30 mg PO DAILY #90 tab-cap 03/13/20 metformin 500 mg tablet,extended 1,000 mg PO DAILY #180 tab-cap 04/17/20 release 24 hr tramadol 50 mg PO TID PRN #14 tab 04/22/20 Allergies Allergy/AdvReac Type Severity Reaction Status Date / Time celecoxib Allergy Intermediate Rash, Verified 04/22/20 11:44 urticaria naproxen Allergy Intermediate Itchy Welts Verified 04/22/20 11:44 prednisone AdvReac Unknown Upset Verified 04/22/20 11:44 stomach, fatigue General Stated Complaint: Abd Prob JAMES: 3 Review of Systems All systems reviewed & are unremarkable except as noted in HPI and below Constitutional Constitutional: Denies chills, Denies fever(s) and Denies weakness Cardiovascular Cardiovascular: Denies chest pain and Denies dyspnea Respiratory Respiratory: Denies cough and Denies dyspnea Gastrointestinal Gastrointestinal: Denies vomiting Musculoskeletal Musculoskeletal: Denies joint swelling Neurologic Neurologic: Denies weakness Psychiatric Psychiatric: Denies depression [facility] Medical History Abdominal obesity Abnormal stress test Bilateral hydrocele Chronic kidney disease (CKD), stage III (moderate) (05/26/16) ? due to DM or to hypertension Complex regional pain syndrome (06/27/13) Diabetes mellitus type 2 in obese (02/19/16) presented with polyuria, elevated FS on friend's glucometer, A1c 14 at [facility] ER Essential hypertension goal <140/85 Gastroesophageal reflux disease without esophagitis (12/05/11) ER 11/2014 rx PPI Mixed hyperlipidemia (02/16/01) low HDL 27; SL HIGH TG; CV RISK (12/2016): 27%: rec Statin Obesity, unspecified (12/05/11) 1993 165#; 180 gives BMI <30 Obstructive sleep apnea (03/10/16) [id number], severe in REM sleep Sleep study PSG on 03/10/16: AHI 20.1; SPO2 shailesh 82%; CPAP begun 06/08/16. with improvement in fatigue 06/29/16 restudied higher pressures needed assoc. with treatment of central sleep apnea Paresthesias (10/27/16) nocturnal, bilateral, R>L, Median nerve, probable CTS Sessile colonic polyp (09/26/14) @ transverse colon, sigmoid Tobacco use disorder Quit 2019, restarted late in the year Vitamin D deficiency Surgical History Cardiac Cath (03/24/17) [facility] [place] Colonoscopy - IV Sedation (09/26/14) [facility] Perri, serrated polyp, fragments of sessile serrated adenoma Cystoscopy w/ joe retrograde pyelogram (03/01/15) Extraction of cataract (12/17/16) Left Radha Manzo; R 11/19/16 Family History Father , lung cancer at age 67. Essential hypertension Neoplasm Mother Diabetes Essential hypertension Sister No problems noted. Sister No problems noted. Social History Smoking/Tobacco Use Status: Current every day Tobacco: How many years used: 41 Quit status: considering quitting Smoking risk assessment performed?: Yes Alcohol Intake: former Drug use: Never Substance use type: does not use Household members: significant other Housing: apartment Number of Children: 3 Communication Needs: None Do you need help understanding health information?: Often Current gender identity: male What is your relationship status?: living with partner Panel score (0-1 are the most socially isolated patients): 1 What type of physical activity do you participate in: none Seatbelt use: always 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 Working smoke detector in home: No Fire extinguisher in home: No Carbon monox detector in home: No Do you feel safe at home: Yes Do you feel safe in your relationship?: Yes Exam Const General: no acute distress Orientation: alert HENNV Head: normal to inspection Ears: external ears normal General nose exam: external nose normal Mouth: moist mucous membranes Eyes General: appearance normal, both eyes and all related structures Neck Neck: normal visual inspection Resp Effort & Inspection: normal respiratory effort and able to speak in complete sentences Cardio Rate: regular rate GI Palpation: tender Skin General skin exam: no rashes or lesions noted Neuro General: patient alert and patient oriented x3 Extrem General: normal to inspection Psych Mental Status: mental status grossly normal Course Vital Signs Vital signs: Vital Signs Temperature 36.7 C 04/22/20 11:36 Pulse 78 03/07/21 11:36 Respiratory Rate 16 04/22/20 11:36 Blood Pressure 117/46 L 04/22/20 11:36 Pulse Oximetry 96 04/22/20 11:36 Temperature 36.7 C 04/22/20 11:36 Temperature Source Skin 04/22/20 11:36 Pulse 78 04/22/20 11:36 Respiratory Rate 16 04/22/20 11:36 Blood Pressure 117/46 L 04/22/20 11:36 Blood Pressure Position Sitting 04/22/20 11:36 Pulse Oximetry 96 04/22/20 11:36 Oxygen Delivery Method Room Air 04/22/20 11:36 Oxygen Flow Rate 0 04/22/20 11:36 Pain Level 8 04/22/20 11:36
[2020-04-22] MEDS: Normal Saline 1,000 ML 1000 ML IV (12:05)
[2020-04-22] MEDS: HYDROmorphone 2 MG/ML VIAL 1 MG IVP (12:10)
[2020-04-22 12:13] LABS: Abs Immature Grans 0.11 10^3/uL (0.0-0.06); Absolute Basophil Count 0.11 10^3/uL (0.0-0.2); Absolute Eosinophil Count 0.18 10^3/uL (0.0-0.7); Absolute Lymphocyte Count 2.09 10^3/uL (1.2-3.4); Absolute Monocyte Count 0.89 10^3/uL (0.1-0.8); Absolute Neutrophil Count 6.22 10^3/uL (1.2-6.7); Basophils % 1.1; Eosinophils % 1.9; HCT 48.6 % (40.0-50.0); HGB 16.5 g/dL (13.5-17.5); Immature Grans % 1.1; Lactate 1.2 mmol/L (0.6-1.4); Lymphocytes % 21.8; MCH 30.1 pg (27.0-33.0); MCV 88.7 fL (80-95); MPV 10.4 fL (8.0-11.0); Monocytes % 9.3; Neutrophils % 64.8; Nucleated RBC 0 %; Platelet Count 214 10^3/uL (130-400); RBC 5.48 10^6/uL (4.36-5.78); RDW-SD 42.4 fL
[2020-04-22 12:25] LABS: ALT 40 U/L (16-63); AST 20 U/L (15-37); Albumin 3.6 g/dL (3.4-5.0); Alkaline Phosphatase 96 U/L (46-116); Anion Gap 11.1 mmol/L (3-11); BUN 22 mg/dL (7-18); Bilirubin, Direct 0.05 mg/dL (0.00-0.20); Bilirubin, Total 0.4 mg/dL (0.2-1.0); CO2 22.9 mmol/L (21.0-32.0); CREATININE 1.4 mg/dL (0.70-1.30); Calcium 8.5 mg/dL (8.5-10.1); Chloride 104 mmol/L (98-107); Estimated GFR 52.42 (mL/min/1.73m2); Glucose 176 mg/dL (74-106); Lipase 196 U/L (73-393); Magnesium 1.8 mg/dL (1.8-2.4); PTT Activated 24.7 sec (21.0-27.5); Potassium 3.5 mmol/L (3.5-5.1); Prothrombin Time 9.7 sec (9.3-11.0); Sodium 138 mmol/L (136-145)
[2020-04-22] MEDS: Omnipaque 350 MG/ML 50 ML BTL IV ×2 (12:39→12:40)
[2020-04-22] MEDS: Normal Saline - Diluent 50 ML VIAL IV (12:42)
--- NOTE | 2020-04-22 13:04 | DI.VRAD_ITS ---
PROCEDURE INFORMATION: Exam: CT Angiography Abdomen and Pelvis With Contrast Exam date and time: 04/22/2020 11:50 AM Age: 54 years old Clinical indication: Other: Right sided abdominal pain, ? mesenteric ischemia TECHNIQUE: Imaging protocol: Computed tomographic angiography of the abdomen and pelvis with contrast material. 3D rendering (Not supervised by radiologist): MIP and/or 3D reconstructed images were created by the technologist. Radiation optimization: All CT scans at this facility use at least one of these dose optimization techniques: automated exposure control; mA and/or kV adjustment per patient size (includes targeted exams where dose is matched to clinical indication); or iterative reconstruction. Contrast material: OMNIPAQUE 350; Contrast volume: 100 ml; Contrast route: INTRAVENOUS (IV); COMPARISON: CT ABDOMEN PELVIS W 03/01/2020 9:41 AM FINDINGS: Aorta: No aortic aneurysm. No aortic dissection. Celiac trunk and mesenteric arteries: No occlusion or significant stenosis. Renal arteries: No occlusion or significant stenosis. Right iliac arteries: No occlusion or significant stenosis. Left iliac arteries: No occlusion or significant stenosis. Other veins: Vascular calcifications. No aneurysm identified. Liver: Hepatomegaly with marked diffuse fatty infiltration of liver. Gallbladder and bile ducts: Unremarkable. No calcified stones. No ductal dilation. Pancreas: Unremarkable. No mass. No ductal dilation. Spleen: Unremarkable. No splenomegaly. Adrenal glands: Unremarkable. No mass. Kidneys and ureters: Multiple small exophytic water density lesions in both kidneys have an appearance most consistent with benign cysts. Stomach and bowel: Small duodenal diverticulum. Sigmoid and descending colon diverticulosis. No evidence of diverticulitis. Appendix: No evidence of appendicitis. Intraperitoneal space: Unremarkable. No free air. No significant fluid collection. Lymph nodes: Unremarkable. No enlarged lymph nodes. Urinary bladder: Distended urinary bladder. Reproductive: Unremarkable as visualized. Bones/joints: No acute fracture. No dislocation. Soft tissues: Unremarkable. IMPRESSION: 1. No acute findings. 2. Hepatomegaly with diffuse fatty infiltration. 3. Diverticulosis without evidence of diverticulitis Dictated and Authenticated by: Brenda Kim MD. Ordering:TATO Moscoso MD
== END 2020-04-22 13:20 | disposition home or self-care (01) ==
PROVIDERS: Emergency Provider Emergency Medicine; PCP Family Medicine
DX: R10.31 Right lower quadrant pain (principal)
CPT/HCPCS: 36415; 80053; 83690; 96361; 96374; 99285; 74174; 82248; 83605; 83735; 85025; 85610; 85730; Q9967

== ENCOUNTER 2020-04-23 07:26 | Emergency (ER) | payer MEDICARE, MEDICAID, SELFPAY ==
[2020-04-23] VITALS (8 sets, daily range): BP systolic 107–118; BP diastolic 48–62; PULSE 45–64; RESP 18–26; TEMP 36.6; O2SAT 92–98
--- NOTE | 2020-04-23 07:30 | RT.EKG_ITS ---
APPROVED REPORT Exam: Resting ECG Patient Location: E HR:58 bpm ECG Measurements Heart Rate 58 AXIS MD 159 P 3 QRSd 93 QRS 30 QT 422 T 11 QTc 414 Conclusion Sinus bradycardia...rate< 60 sinus bradycardia at 58, normal axis, no acute ischemic changes, no WPW, no Brugada, no HOCM, QTC 414 , QRS 93, nondiagnostic EKG
--- NOTE | 2020-04-23 07:49 | ED.GENADUL_ITS ---
Discharge Plan Disposition Patient Disposition: HOME Condition: Stable Discharge Details Clinical Impression: Lightheadedness, Hematuria Primary Care Provider: Garth Marroquin ED Provider: Cuca Farooq Home Meds and New Rx's Prescriptions: Continued acetaminophen [Tylenol Extra Strength] 500 mg tablet 500 mg PO Q4H PRNRF: 0 (DME) lancets [FreeStyle Lancets] 28 gauge misc See Rx Instructions .ROUTE .MEDSUPPLY Qty: 25 RF: 0 (DME) FreeStyle Lite Strips Strip See Rx Instructions .ROUTE .MEDSUPPLY Qty: 100 RF: 3 albuterol sulfate [Ventolin HFA] 90 mcg/actuation HFA aerosol inhaler 1 - 2 puff Inhalation Q4H PRN Qty: 1 RF: 6 atorvastatin 20 mg tablet 20 mg PO DAILY Qty: 90 RF: 3 amlodipine 2.5 mg tablet 2.5 mg PO DAILY Qty: 90 RF: 3 cholecalciferol (vitamin D3) [Vitamin D3] 50 mcg (2,000 unit) tablet 2,000 unit PO DAILY Qty: 90 RF: 3 nitroglycerin [Nitrostat] 0.4 mg tablet, sublingual 0.4 mg Sublingual Q5 MIN PRN X3 Qty: 100 RF: 1 Jardiance 10 mg tablet 10 mg PO QAM Qty: 30 RF: 6 aspirin 81 mg tablet,delayed release (DR/EC) 81 mg PO DAILY 90 Days Qty: 90 RF: 3 omeprazole 40 mg capsule,delayed release(DR/EC) 40 mg PO DAILY Qty: 90 RF: 3 lisinopril 30 mg tablet 30 mg PO DAILY Qty: 90 RF: 3 metformin 500 mg tablet extended release 24 hr 1,000 mg PO DAILY Qty: 180 RF: 3 tramadol 50 mg tablet 50 mg PO TID PRN (Reason: pain) Qty: 14 RF: 0 Discharge Instructions Instructions: Hematuria (ED), Near Syncope (ED) Additional Instructions: Please return immediately to the emergency department if you develop any new or worsening symptoms, if your condition does not improve as expected, or if you become otherwise concerned. It is extremely important that you call soon as possible to make an appointment to be seen in follow-up for this visit by your primary care doctor. Referrals: Garth Marroquin DO [Primary Care Provider] - Medical Decision Making Pavan Padilla is a 54-year-old man with history of chronic kidney disease, bdu-rfkffzq-yvaeftkrt diabetes, struct of sleep apnea, hyperlipidemia, hypertension who presented to the emergency department with sensation of feeling lightheaded and shaky without syncope, vertiginous symptoms, or focal wea kness/numbness. On exam patient is well and nontoxic-appearing. Benign cardiopulmonary exam. Benign abdominal exam. Concern for metabolic/electrolyte disturbance, dehydration, medication effect, other. Doubt acute coronary syndrome, pulmonary embolism, early sepsis. Exam/history at this time is not consistent with acute aortic process, cerebrovascular accident, meningitis. Doubt arrhythmia as patient symptomatic while on monitor at arrival and in normal sinus rhythm/sinus bradycardia high 50s with normal blood pressure. EKG is nondiagnostic. Plan for IV placement, IV fluid hydration, screening labs, chest x-ray. Will monitor and reassess. Plan for repeat troponin, repeat EKG if initial work-up negative. Patient reports feeling improved after first liter of IV fluid. Walked to the bathroom without issue, reports no further lightheadedness. Labs reviewed, lactate 1.6, blood sugar 500. No elevated anion gap. Plan for second fluid bolus, awaiting repeat troponin, repeat EKG. Repeat troponin negative, repeat EKG unchanged. Patient continues to report no further symptoms. He states that he feels back to baseline and requests to be discharged at this time. Patient will need outpatient follow-up with his PCP for trace hematuria, elevated blood sugar, and follow-up for his lightheadedness. Unclear etiology, medication effect versus mild dehydration versus other. I had a lengthy discussion with Patient regarding return to emergency department precautions, home care, and importance of outpatient follow-up. Pt verbalizes understanding of the plan and is amenable. Patient discharged to home with clear plan for outpatient follow-up. All questions were answered. Disposition decision was made weighing the risks and benefits of hospitalization versus outpatient treatment, the risk for further decompensation, and the patient's wishes. Medical Records Medical records reviewed: Yes I reviewed the patient's medical records. Imaging Data Radiologic Study: Attestation: I personally reviewed and interpreted this imaging study as follows: Radiologist's impression: EXAM: XR PORTABLE CHEST AP CLINICAL HISTORY: near syncope TECHNIQUE: 2D digital imaging was performed. COMPARISON: CR,XR XR CHEST 2V PA LATERAL from 09/20/2019 CR,XR XR CHEST 2V PA LATERAL from 09/20/[address] CHEST PE CTA from 10/15/2019 CR,XR XR PORTABLE CHEST AP from 10/15/[address] ABDOMEN PELVIS W from 03/01/[address] ABDOMEN PELVIS CTA from 04/22/[address] ABDOMEN PELVIS CTA from 04/22/2020 FINDINGS: LUNGS: Stable streaky densities are again noted in the right middle lobe. Findings do not appear significantly changed and may represent scarring. No pleural abnormality seen. HEART: Normal. MEDIASTINUM: Normal. BONES: Unremarkable. IMPRESSION: Streaky densities in the right middle lobe appears stable and may represent scarring. No area of consolidation or effusion. Lab Data Lab results reviewed: Yes I reviewed the patient's lab results. Labs: Laboratory Tests Range/Units 04/23/20 04/23/20 04/23/20 08:10 08:10 08:10 WBC (4.4-10.8) 10^3/uL 7.28 RBC (4.36-5.78) 10^6/uL 5.43 Hgb (13.5-17.5) g/dL 16.3 Hct (40.0-50.0) % 48.5 MCV (80-95) fL 89.3 MCH (27.0-33.0) pg 30.0 MCHC (32.0-36.0) % 33.6 RDW (11.8-14.1) % 13.2 Plt Count (130-400) 10^3/uL 189 MPV (8.0-11.0) fL 10.6 Immature Gran % 2.1 Neutrophils % 63.5 Lymphocytes % 21.7 Monocytes % 9.5 Eosinophils % 2.2 Basophils % 1.0 Nucleated RBC % % 0 Absolute Neutrophils (1.2-6.7) 10^3/uL 4.63 Absolute Lymphocytes (1.2-3.4) 10^3/uL 1.58 Absolute Monocytes (0.1-0.8) 10^3/uL 0.69 Absolute Eosinophils (0.0-0.7) 10^3/uL 0.16 Absolute Basophils (0.0-0.2) 10^3/uL 0.07 D-Dimer (<500) ng/mlFEU 354 VBG Lactate (0.6-1.4) mmol/L Sodium (136-145) mmol/L 137 Potassium (3.5-5.1) mmol/L 3.9 Chloride (98-107) mmol/L 103 Carbon Dioxide (21.0-32.0) mmol/L 23.8 Anion Gap (3-11) mmol/L 10.2 BUN (7-18) mg/dL 16 D Creatinine (0.70-1.30) mg/dL 1.2 Estimated GFR/1.73 m2 (mL/min/1.73m2) >= 60.00 Glucose (74-106) mg/dL 162 H Calcium (8.5-10.1) mg/dL 8.8 Total Bilirubin (0.2-1.0) mg/dL 0.4 AST (15-37) U/L 19 ALT (16-63) U/L 39 Alkaline Phosphatase (46-116) U/L 91 Troponin I (<0.06) ng/mL < 0.05 Total Protein (6.4-8.2) g/dL 7.2 Albumin (3.4-5.0) g/dL 3.7 TSH (0.36-3.74) uIU/mL 1.26 Urine Color (Yellow) Urine Clarity (Clear) Urine pH (5-8) Ur Specific [place] (1.005-1.025) Urine Protein (Negative) mg/dL Urine Ketones (Negative) mg/dL Urine Blood (Negative) Urine Nitrite (Negative) Urine Bilirubin (Negative) Urine Urobilinogen (Up TO 0.2) EU/dL Ur Leukocyte Esterase (Negative) Urine RBC (0-2) HPF Urine WBC (0-5) HPF Ur Epithelial Cells (Negative) HPF Urine Crystals (Negative) HPF Urine Bacteria (Negative) HPF Urine Casts (Negative) LPF Urine Mucus (Negative) Ur Culture Indicated? Urine Glucose (Negative) mg/dL Range/Units 04/23/20 04/23/20 04/23/20 08:27 08:55 11:10 WBC (4.4-10.8) 10^3/uL RBC (4.36-5.78) 10^6/uL Hgb (13.5-17.5) g/dL Hct (40.0-50.0) % MCV (80-95) fL MCH (27.0-33.0) pg MCHC (32.0-36.0) % RDW (11.8-14.1) % Plt Count (130-400) 10^3/uL MPV (8.0-11.0) fL Immature Gran % Neutrophils % Lymphocytes % Monocytes % Eosinophils % Basophils % Nucleated RBC % % Absolute Neutrophils (1.2-6.7) 10^3/uL Absolute Lymphocytes (1.2-3.4) 10^3/uL Absolute Monocytes (0.1-0.8) 10^3/uL Absolute Eosinophils (0.0-0.7) 10^3/uL Absolute Basophils (0.0-0.2) 10^3/uL D-Dimer (<500) ng/mlFEU VBG Lactate (0.6-1.4) mmol/L 1.6 H Sodium (136-145) mmol/L Potassium (3.5-5.1) mmol/L Chloride (98-107) mmol/L Carbon Dioxide (21.0-32.0) mmol/L Anion Gap (3-11) mmol/L BUN (7-18) mg/dL Creatinine (0.70-1.30) mg/dL Estimated GFR/1.73 m2 (mL/min/1.73m2) Glucose (74-106) mg/dL Calcium (8.5-10.1) mg/dL Total Bilirubin (0.2-1.0) mg/dL AST (15-37) U/L ALT (16-63) U/L Alkaline Phosphatase (46-116) U/L Troponin I (<0.06) ng/mL < 0.05 Total Protein (6.4-8.2) g/dL Albumin (3.4-5.0) g/dL TSH (0.36-3.74) uIU/mL Urine Color (Yellow) Yellow Urine Clarity (Clear) Clear Urine pH (5-8) 5.5 Ur Specific [place] (1.005-1.025) 1.020 Urine Protein (Negative) mg/dL Negative Urine Ketones (Negative) mg/dL Negative Urine Blood (Negative) Small H Urine Nitrite (Negative) Negative Urine Bilirubin (Negative) Negative Urine Urobilinogen (Up TO 0.2) EU/dL 0.2 Ur Leukocyte Esterase (Negative) Negative Urine RBC (0-2) HPF 3-5 H Urine WBC (0-5) HPF 0-2 Ur Epithelial Cells (Negative) HPF Rare Urine Crystals (Negative) HPF Negative Urine Bacteria (Negative) HPF Negative Urine Casts (Negative) LPF Negative Urine Mucus (Negative) Trace Ur Culture Indicated? No Urine Glucose (Negative) mg/dL 500 H ECG Data Attestation: I personally reviewed and interpreted this ECG (s) as follows: Interpretation: EKG shows sinus bradycardia at 58, normal axis, no acute ischemic changes, no WPW, no Brugada, no HOCM, QTC 414, QRS 93, nondiagnostic EKG Repeat EKG 11: 06 shows sinus bradycardia at 59, normal axis, no major change from prior, nondiagnostic EKG HPI General Mode of arrival: ambulatory . Date/Time Provider Initiated Documentation: 04/23/20 07:49 . Limitations to Documentation: no limitations . Information obtained by: patient . HPI Narrative: Pavan Padilla is a 54-year-old man with history of chronic kidney disease, noninsulin-dependent diabetes, hypertension, GERD, hyperlipidemia, obstructive sleep apnea presenting to the emergency department with lightheadedness. Patient reports that this morning approximately 1 hour prior to arrival he was sitting in a chair when he developed a sensation of feeling shaky and lightheaded as if he would pass out. Patient reports that she went to his neighbors to let them know that he would need a ride to the hospital, and then came back to his home. Patient reports that his lightheadedness is worse with standing but he did not fall at any point. No loss of consciousness. He denies any spinning or vertiginous sensation. Patient reports that both of his hands felt shaky when this began. Patient reports that he has been eating and drinking as usual. He reports that he smokes cigarettes, denies alcohol or recreational drug use. Patient denies any known inciting event. He states that he has not had similar symptoms in the past. Patient reports that he did take tramadol for the first time last night and then again this morning approximately 1/2-hour to onset of his lightheadedness. No new medications. Patient reports that he took all of his morning medications including blood pressure medications this morning as usual. Per record review, patient was seen here in the emergency department yesterday for abdominal pain, underwent CTA abdomen pelvis which was negative and was discharged home with tramadol for pain. Also per record review, patient was seen by cardiology 10/2019, and this visit note it is documented that patient underwent clean cardiac catheterization at [facility] in 2018, also had echo at that time showing no valvular disease and 65% ejection fraction. Patient denies any pain, cough, shortness of breath, fevers, vomiting, diarrhea, focal or generalized weakness, numbness, rash. Related Data Home Medications Medication Instructions Recorded Confirmed acetaminophen 500 mg tablet 500 mg PO Q4H PRN 10/26/17 04/23/20 atorvastatin 20 mg tablet 20 mg PO DAILY #90 tab 11/04/18 04/23/20 amlodipine 2.5 mg tablet 2.5 mg PO DAILY #90 tab-cap 06/13/19 04/23/20 cholecalciferol (vitamin D3) 50 2,000 unit PO DAILY #90 tab-cap 06/13/19 04/23/20 mcg (2,000 unit) tablet blood sugar diagnostic #100 each 08/29/19 03/29/20 lancets 28 gauge #25 each 08/29/19 03/29/20 nitroglycerin 0.4 mg sublingual 0.4 mg SUBLINGUAL Q5 MIN PRN X3 09/21/19 04/23/20 tablet #100 tab albuterol sulfate 90 mcg/actuation 1 - 2 puff INHALATION Q4H PRN #1 10/20/19 04/23/20 aerosol inhaler inhaler empagliflozin 10 mg tablet 10 mg PO QAM #30 tab 11/18/19 04/23/20 aspirin 81 mg tablet,delayed 81 mg PO DAILY 90 Days #90 tabec 02/02/20 04/23/20 release omeprazole 40 mg capsule,delayed 40 mg PO DAILY #90 cap 02/02/20 04/23/20 release lisinopril 30 mg tablet 30 mg PO DAILY #90 tab-cap 03/13/20 04/23/20 metformin 500 mg tablet,extended 1,000 mg PO DAILY #180 tab-cap 04/17/2010/06 release 24 hr tramadol 50 mg PO TID PRN #14 tab 04/22/20 04/23/20 Previous Rx's Medication Instructions Recorded atorvastatin 20 mg tablet 20 mg PO DAILY #90 tab 11/04/18 amlodipine 2.5 mg tablet 2.5 mg PO DAILY #90 tab-cap 06/13/19 cholecalciferol (vitamin D3) 50 2,000 unit PO DAILY #90 tab-cap 06/13/19 mcg (2,000 unit) tablet blood sugar diagnostic #100 each 08/29/19 nitroglycerin 0.4 mg sublingual 0.4 mg SUBLINGUAL Q5 MIN PRN X3 09/21/19 tablet #100 tab albuterol sulfate 90 mcg/actuation 1 - 2 puff INHALATION Q4H PRN #1 10/20/19 aerosol inhaler inhaler empagliflozin 10 mg tablet 10 mg PO QAM #30 tab 11/18/19 aspirin 81 mg tablet,delayed 81 mg PO DAILY 90 Days #90 tabec 02/02/20 release omeprazole 40 mg capsule,delayed 40 mg PO DAILY #90 cap 02/02/20 release lisinopril 30 mg tablet 30 mg PO DAILY #90 tab-cap 03/13/20 metformin 500 mg tablet,extended 1,000 mg PO DAILY #180 tab-cap 04/17/20 release 24 hr tramadol 50 mg PO TID PRN #14 tab 04/22/20 Allergies Allergy/AdvReac Type Severity Reaction Status Date / Time celecoxib Allergy Intermediate Rash, Verified 04/23/20 07:38 urticaria naproxen Allergy Intermediate Itchy Welts Verified 04/23/20 07:38 prednisone AdvReac Unknown Upset Verified 04/23/20 07:38 stomach, fatigue General Stated Complaint: Dizzy/Sync JAMES: 2 Review of Systems Narrative: Constitutional: denies fevers Eyes: denies eye pain ENT: denies ear pain, dental pain, sore throat Cardiovascular: denies chest pain, edema, reports lightheadedness Respiratory: denies SOB, cough GI: denies abdominal pain, vomiting, diarrhea : denies flank pain MSK: denies back pain, neck pain, arthralgias, myalgias Skin: denies rash Neuro: denies headaches, numbness, weakness [facility] Medical History Abdominal obesity Abnormal stress test Bilateral hydrocele Chronic kidney disease (CKD), stage III (moderate) (05/26/16) ? due to DM or to hypertension Complex regional pain syndrome (06/27/13) Diabetes mellitus type 2 in obese (02/19/16) presented with polyuria, elevated FS on friend's glucometer, A1c 14 at [facility] ER Essential hypertension goal <140/85 Gastroesophageal reflux disease without esophagitis (12/05/11) ER 11/2014 rx PPI Mixed hyperlipidemia (02/16/01) low HDL 27; SL HIGH TG; CV RISK (12/2016): 27%: rec Statin Obesity, unspecified (12/05/11) 1993 165#; 180 gives BMI <30 Obstructive sleep apnea (03/10/16) itlcaqow-sa-[id number], severe in REM sleep Sleep study PSG on 03/10/16: AHI 20.1; SPO2 shailesh 82%; CPAP begun 06/08/16. with improvement in fatigue 06/29/16 restudied higher pressures needed assoc. with treatment of central sleep apnea Paresthesias (10/27/16) nocturnal, bilateral, R>L, Median nerve, probable CTS Sessile colonic polyp (09/26/14) @ transverse colon, sigmoid Tobacco use disorder Quit 2019, restarted late in the year Vitamin D deficiency Surgical History Cardiac Cath (03/24/17) [facility] [place] Colonoscopy - IV Sedation (09/26/14) [facility]ri, serrated polyp, fragments of sessile serrated adenoma Cystoscopy w/ joe retrograde pyelogram (03/01/15) Extraction of cataract (12/17/16) Left Radha Manzo; Natividad 11/19/16 Family History Father , lung cancer at age 67. Essential hypertension Neoplasm Mother Diabetes Essential hypertension Sister No problems noted. Sister No problems noted. Social History Smoking/Tobacco Use Status: Current every day Tobacco: How many years used: 41 Quit status: considering quitting Smoking risk assessment performed?: Yes Alcohol Intake: former Drug use: Never Substance use type: does not use Household members: significant other Housing: apartment Number of Children: 3 Communication Needs: None Do you need help understanding health information?: Often Current gender identity: male What is your relationship status?: living with partner Panel score (0-1 are the most socially isolated patients): 1 What type of physical activity do you participate in: none Seatbelt use: always Drive intox or ride w/intox [employer]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: No Working smoke detector in home: No Fire extinguisher in home: No Carbon monox detector in home: No Do you feel safe at home: Yes Do you feel safe in your relationship?: Yes Exam Narrative Exam Narrative: Constitutional: well and fgu-wzzow-mtzvvmstu, pleasant, conversing normally HENT: head atraumatic/normocephalic/normal inspection, mucous membranes moist Eyes: conjunctiva normal, sclera normal, pupils 3mm b/l Neck: no stridor, normal ROM, trachea midline Chest: normal inspection Resp: normal work of breathing, speaking in full sentences Cardio: normal rate, normal rhythm, radial pulses intact and symmetric GI: abdomen soft, non-tender, non-distended Skin: warm, dry, normal color, no rash Neuro: alert, not altered, grossly non-focal, normal tone Ext: no edema, no posterior calf tenderness to palpation Psych: normal mood, normal affect, normal behavior Course Vital Signs Vital signs: Vital Signs Pulse 64 04/23/20 07:35 Respiratory Rate 22 04/23/20 07:35 Blood Pressure 116/60 04/23/20 07:35 Pulse Oximetry 98 04/23/20 07:35 Pulse 64 04/23/20 07:35 Respiratory Rate 18 04/23/20 07:40 Respiratory Effort 04/23/20 07:40 Blood Pressure 116/60 04/23/20 07:35 Blood Pressure Position Sitting 04/23/20 07:35 Pulse Oximetry 98 04/23/20 07:35 Oxygen Delivery Method Room Air 04/23/20 07:35 Oxygen Flow Rate 0 04/23/20 07:35 Pain Level 0 04/23/20 07:35
--- NOTE | 2020-04-23 08:15 | DI.RAD_ITS ---
EXAM: XR PORTABLE CHEST AP CLINICAL HISTORY: near syncope TECHNIQUE: 2D digital imaging was performed. COMPARISON: CR,XR XR CHEST 2V PA LATERAL from 09/20/2019 CR,XR XR CHEST 2V PA LATERAL from 09/20/[address] CHEST PE CTA from 10/15/2019 CR,XR XR PORTABLE CHEST AP from 10/15/[address] ABDOMEN PELVIS W from 03/01/[address] ABDOMEN PELVIS CTA from 04/22/[address] ABDOMEN PELVIS CTA from 04/22/2020 FINDINGS: LUNGS: Stable streaky densities are again noted in the right middle lobe. Findings do not appear sig nificantly changed and may represent scarring. No pleural abnormality seen. HEART: Normal. MEDIASTINUM: Normal. BONES: Unremarkable. IMPRESSION: Streaky densities in the right middle lobe appears stable and may represent scarring. No area of con solidation or effusion. DATA REPOSITORY: RADIATION DOSE DELIVERED:
[2020-04-23] MEDS: Normal Saline 1,000 ML 1000 ML IV ×2 (08:23→11:08)
[2020-04-23 08:27] LABS: Abs Immature Grans 0.15 10^3/uL (0.0-0.06); Absolute Basophil Count 0.07 10^3/uL (0.0-0.2); Absolute Eosinophil Count 0.16 10^3/uL (0.0-0.7); Absolute Lymphocyte Count 1.58 10^3/uL (1.2-3.4); Absolute Monocyte Count 0.69 10^3/uL (0.1-0.8); Absolute Neutrophil Count 4.63 10^3/uL (1.2-6.7); Eosinophils % 2.2; HCT 48.5 % (40.0-50.0); HGB 16.3 g/dL (13.5-17.5); Immature Grans % 2.1; Lymphocytes % 21.7; MCHC 33.6 % (32.0-36.0); MCV 89.3 fL (80-95); MPV 10.6 fL (8.0-11.0); Monocytes % 9.5; Neutrophils % 63.5; Nucleated RBC 0 %; Platelet Count 189 10^3/uL (130-400); RBC 5.43 10^6/uL (4.36-5.78); RDW 13.2 % (11.8-14.1); RDW-SD 42.9 fL; WBC 7.28 10^3/uL (4.4-10.8)
[2020-04-23 08:34] LABS: Lactate 1.6 mmol/L (0.6-1.4)
[2020-04-23 08:48] LABS: ALT 39 U/L (16-63); AST 19 U/L (15-37); Albumin 3.7 g/dL (3.4-5.0); Alkaline Phosphatase 91 U/L (46-116); Anion Gap 10.2 mmol/L (3-11); BUN 16 mg/dL (7-18); Bilirubin, Total 0.4 mg/dL (0.2-1.0); CO2 23.8 mmol/L (21.0-32.0); CREATININE 1.2 mg/dL (0.70-1.30); Calcium 8.8 mg/dL (8.5-10.1); Chloride 103 mmol/L (98-107); Glucose 162 mg/dL (74-106); Potassium 3.9 mmol/L (3.5-5.1); Sodium 137 mmol/L (136-145); TSH (W/Ref FT4) 1.26 uIU/mL (0.36-3.74); Total Protein 7.2 g/dL (6.4-8.2); Troponin I < 0.05 ng/mL (<0.06)
[2020-04-23 08:57] LABS: D-Dimer 354 ng/mlFEU (<500)
[2020-04-23 09:04] LABS: Bilirubin Negative (Negative); Blood Small (Negative); Clarity Clear (Clear); Glucose 500 mg/dL (Negative); Ketones Negative (Negative); Leukocyte Esterase Negative (Negative); Nitrite Negative (Negative); Urobilinogen 0.2 EU/dL (Up TO 0.2); pH 5.5 (5-8)
--- NOTE | 2020-04-23 09:04 | NUR.NOTE ---
[facility], denies lightheadedness when standing.
[2020-04-23 09:13] LABS: Bacteria Negative HPF (Negative); C & S Indicated? No; Casts Negative LPF (Negative); Crystals Negative HPF (Negative); Epithelial Cells Rare HPF (Negative); Mucus Trace (Negative); WBC 0-2 HPF (0-5)
--- NOTE | 2020-04-23 09:50 | NUR.NOTE ---
Spoke with Naty, pt ex- with pt permission. aware of plan for 1100 blood draw.
--- NOTE | 2020-04-23 10:15 | RT.EKG_ITS ---
APPROVED REPORT Exam: Resting ECG Patient Location: E HR:59 bpm ECG Measurements Heart Rate 59 AXIS CA 158 P 13 QRSd 90 QRS 19 QT 428 T 25 QTc 423 Conclusion Sinus bradycardia...rate< 60 sinus bradycardia at 59, normal axis, no major change from prior today, nondiagnostic EKG
[2020-04-23 11:33] LABS: Troponin I < 0.05 ng/mL (<0.06)
--- NOTE | 2020-04-23 12:04 | NUR.NOTE ---
Nursing Note: Referral to f/u with PCP Dr Henry post for Syncope and hyperglycemia.
== END 2020-04-23 12:03 | disposition home or self-care (01) ==
PROVIDERS: Emergency Provider Student in an Organized Health Care Education/Training Program; PCP Family Medicine
DX: R42 Dizziness and giddiness (principal); R31.9 Hematuria, unspecified
CPT/HCPCS: 36415; 80053; 93005; 96360; 96361; 99285; 71045; 81003; 81015; 83605; 84443; 84484; 85025; 85379; 93010

== ENCOUNTER 2020-05-01 02:11 | Outpatient (CLI) | payer MEDICARE, MEDICAID, SELFPAY ==
[2020-05-01 11:33] LABS: Source Nasal/Nares
[2020-05-01 17:03] LABS: COVID-19 PCR Negative (Negative)
== END 2020-05-01 02:12 | disposition home or self-care (01) ==
PROVIDERS: PCP Family Medicine; Visit Provider Urology
DX: Z20.822 Contact with and (suspected) exposure to COVID-19 (principal)
CPT/HCPCS: 87635

== ENCOUNTER 2020-06-08 10:52 | Outpatient (CLI) | payer MEDICARE, MEDICAID, SELFPAY ==
--- OUTSIDE RECORDS SUMMARY | 2020-06-08 10:57 | XMS_ITS | Encounter Summary ---
:1965 Author Care Team Providers Name Role Phone Garth Winchesterzane ([facility]) Primary Care Provi moises [phone] Reason for Visit None recorded. Assessment and Plan 1. Obstructive sleep apnea syndr ome ELIU with an AHI of 20.1/hr. He has been using CPAP 11-18 cm. He still has some residual snoring, rare witnessed apneas and mild residual sleepiness but overall feels much better rested with CP AP and continued use is recommended. His median pressure is 12.2 cm and 95 th percentile pressure 14.5 cm. I set his CPAP to 13-18 cm today. He is overdue for supplies so an order is put in for this tod ay. He is encouraged to keep up with the routine maintenance of the machine and to clean and replace parts as indicated. Drowsy driving precautions were reviewed. I will see him back in one year. He is asked to call the clinic for any sleep r elated questions or concerns. I provided greater than 30 minutes in th e care of this patient, more than half the time was spent in [id number] counseling. ? CPAP machine Discussion Note: None recorded.Patient educational handouts: No information available. Plan of Care Reminders Provider Appointments Return to on or around Vishnu Barnett, Office 04/19/2021 [facility] Lab None ? ? recorded. Referral None ? ? recorded. Procedures None ? ? recorded. Surgeries None ? ? recorded. Imaging None ? ? recorded. Medications Name Start Date ? ? albuterol sulfate HFA 90 mcg/actuation aerosol inhaler ? amlodipine 2.5 mg tablet ? TAKE 1 TABLET BY MOUTH DAILY amoxicillin 875 mg tablet ? aspirin 81 mg tablet,delayed release ? TAKE 1 TABLET BY MOUTH DAILY ciprofloxacin 500 mg tablet ? dicyclomine 10 mg capsule ? TAKE 1 CAPSULE BY MOUTH THREE TIMES DAILY Jardiance 10 mg tablet ? TAKE 1 TABLET BY MOUTH EVERY MORNING lisinopril 30 mg tablet ? TAKE 1 TABLET BY MOUTH DAILY metformin ER 500 mg tablet,extended release 24 hr ? TK 2 TS PO QAM FOR DIABETES metronidazole 500 mg tablet ? nitroglycerin 0.4 mg sublingual tablet ? omeprazole 40 mg capsule,delayed release ? TAKE 1 CAPSULE BY MOUTH DAILY sucralfate 100 mg/mL oral suspension ? terbinafine HCl 250 mg tablet ? tramadol 50 mg tablet ? TK 1 T PO Q 8 H PRF PAIN Vitamin D3 50 mcg (2,000 unit) tablet ? TAKE 1 TABLET BY MOUTH DAILY Medications Administered None recorded. Vitals Height Weight BMI Blood Pressure 5 ft 6 in 235.6 lbs 38 kg/m2 138/89 mm[Hg] Results Lab Results None recorded. Allergies Code Code System Name Reaction Severity Onset 7258 RxNorm Naproxen ? ? ? 8640 RxNorm Prednisone ? ? ? Problems Name Status Onset Date Source ? 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 Gastroesophageal Reflux Disease Active 04/17/2020 ? Adenomatous Polyp of Colon Active ? Histo ry Vitamin D Deficiency Active ? History Mixed Hyperlipidemia Active ? History Obesity Active ? History Nicotine Dependence Active ? History Hypersomnia Active ? History Obstructive Sleep Apnea Syndrome Active ? History Movement Disorder Active ? History Cataract Active ? History Hypertensive Disorder Active ? History Chronic Obstructive Lung Disease Active ? History Microscopic Hematuria Active ? History Plantar Fascial Fibromatosis Active ? His tory Spasm Active ? History Syncope and Collapse Active ? History Sleep Disorder Active ? History Sleep Apnea Active ? History Dyspnea Active ? History Snoring Active ? History Viral Infection by Site Active ? History Procedure by Method Active ? History Finding of Esophagus Active ? History Procedures None recorded. Vaccine List None recorded. Social History Tobacco Smoking Status Never Smoker (2 PPD) Alcohol intake None Live alone or with others? with others Hard of hearing or deaf in one N or both ears? Caffeine intake Occasional Notes: 2 pots of coffee a day Blind or serious difficulty N Notes: ey e surgery seeing Functional Status No Impairment. Past Encounters 04/19/2020 Obstructive Sleep Apnea Syndrome Phuong Barnett TRACK RIDER: [address] [place] [phone], Ph. History of Present Illness Note: <p>Pavan Padilla has a visit for ELIU follow-up.</p><p>
</p><p>Seth was last seen in the sleep clinic by me on 08/18/16. He had a PSG March 10, 2016 (BMI 37.12) with an AHI of 20.1/hr, supine AHI 67/hr and SPO2 shailesh of 82%. PLMi 4.7/hr. Titration 06/15/16 (BMI 37.12), CPAP 13 cm was successful in lateral REM, PLMi 2.7/hr, CPAP 11-18 cm recommended. At hislast visit he was using his auto CPAP 11-18 cm with excellent compliance, reduction in AHI and symptomatic improvement.</p><p>
</p><p>Seth tells me he uses his machine every night but he says every once in a while his has to shake him to get him breathing again. This is when he is using the CPAP. He says this has only happened on a couple of occasions. He is not typically aware of any air leaking. The air pressure feels ok. He says he still snores with CPAP. He is not aware of any nocturnal gasping or choking. He denies any morning headaches, nocturnal heartburnor night sweats. He gets up 1/night ti urinate and he is able to get back to sleep ok. He sleeps from about 7 pm to 3 am. He will rarely nap in his recliner if he is home alone. He sleeps a lot better with CPAP and feels better rested. </p><p>
</p><p>ESS today 01/09</p><p>
</p><p>COMPLIANCE REVIEW: {{03/20/20-04/18/20# DATES}}, Used {{30# 25 30}}/30 days, average use {{7# 5 6}} hours {{36# number}} minutes a night, median pressure {{12.2# 8 9}}cm, 95 th percentile pressure {{9 * 10}}cm, 95 th percentile air leak {{33.7# 5 10}} lpm, AHI {{0.5# 1 2}}/hour.</p>Review of Systems: ROS as noted in the HPI Review of Systems None recorded. Physical Exam ? Notes: <p>General: A&O, well groome d {{over weight obese * morbidly obese normal weight thin}}.
HEAD: no rmocephalic & atraumatic.
EYES: non icteric.
LUNGS: CTA all f ields. Good air movement.
CARDIO: RRR without murmur, gallop or thrill.
NEURO: A&O. Normal gait.
PSYCH: Normal mood and affect.
CUTANEOUS: no overt lesions or rashes</p>
--- OUTSIDE RECORDS SUMMARY | 2020-06-08 10:57 | XMS_ITS ---
:1965 Author Care Team Providers Name Role Phone PASCUAL GUTHRIE ([facility]) Primary Care Provi moises [phone] Allergies Code Code System Name Reaction Severity Status Onset 7258 RxNorm Naproxen ? ? Active ? 8640 RxNorm Prednisone ? ? Active ? Medications Name Status Start Date Stop Date ? ? albuterol sulfate HFA 90 mcg/actuation Active ? Not available aerosol inhaler amlodipine 2.5 mg tablet Active ? Not moose ilable TAKE 1 TABLET BY MOUTH DAILY amoxicillin 875 mg tablet Active ? Not av ailable aspirin 81 mg tablet,delayed release Active ? Not available TAKE 1 TABLET BY MOUTH DAILY ciprofloxacin 500 mg tablet Active ? Not available dicyclomine 10 mg capsule Active ? Not av ailable TAKE 1 CAPSULE BY MOUTH THREE TIMES DAILY Jardiance 10 mg tablet Active ? Not avail able TAKE 1 TABLET BY MOUTH EVERY MORNING lisinopril 30 mg tablet Active ? Not avai lable TAKE 1 TABLET BY MOUTH DAILY metformin ER 500 mg tablet,extended Active ? Not available release 24 hr metronidazole 500 mg tablet Active ? Not available nitroglycerin 0.4 mg sublingual tablet Active ? Not available omeprazole 40 mg capsule,delayed release Active ? Not available TAKE 1 CAPSULE BY MOUTH DAILY sucralfate 100 mg/mL oral suspension Active ? Not available terbinafine HCl 250 mg tablet Active ? No t available tramadol 50 mg tablet Active ? Not availa ble TK 1 T PO Q 8 H PRF PAIN Vitamin D3 50 mcg (2,000 unit) tablet Active ? Not available TAKE 1 TABLET BY MOUTH DAILY Problems Name Status Onset Date Source ? [...] Esophagus Active ? History Procedures None recorded. Results Lab Results None recorded. Past Encounters 04/19/2020 Obstructive Sleep Apnea Syndrome Phuong Barnett [employer] BUSINESS: [address] [place] [phone], Ph. Social History Tobacco Smoking Status Never Smoker (2 PPD) Vaccine List None recorded. Plan of Care Reminders Provider Appointments None ? ? recorded. Lab None ? ? recorded. Referral None ? ? recorded. Procedures None ? ? recorded. Surgeries None ? ? recorded. Imaging None ? ? recorded. Vitals 04/19/2020 10:45AM Office 30 Height Weight BMI Blood Pressure 167.64 cm 106.87 kg 38 kg/m2 138/89 mm[Hg] 08/12/2016 Height 170.18 cm 08/12/2016 Weight Blood Pressure 103.53 kg 118/68 mm[Hg] 07/08/2016 Weight Blood Pressure 103.02 kg 120/78 mm[Hg] 07/08/2016 Height 170.18 cm 05/05/2016 Weight Blood Pressure 107.5 kg 120/70 mm[Hg] 05/05/2016 Height 170.18 cm 02/07/2016 Weight Blood Pressure 107.5 kg 120/78 mm[Hg] 02/07/2016 Height 170.18 cm
[2020-06-08 11:49] LABS: Source Nasal/Nares
[2020-06-08 15:19] LABS: COVID-19 PCR Negative (Negative)
== END 2020-06-08 10:53 | disposition home or self-care (01) ==
LOC: LBO 10:54
PROVIDERS: PCP Family Medicine; Visit Provider Urology
DX: Z20.822 Contact with and (suspected) exposure to COVID-19 (principal); Z01.818 Encounter for other preprocedural examination
CPT/HCPCS: 87635

== ENCOUNTER 2020-06-11 06:10 | Day surgery (SDC) | payer MEDICARE, MEDICAID, SELFPAY ==
--- NOTE | 2020-06-11 06:11 | ANES.PREOP_ITS ---
Anesthesia Assessment and Plan Anesthesia History Personal History: No History of Anesthesia Complications Family History: No Family History of Anesthesia Complications Exercise Tolerance Exercise Tolerance: Metabolic Equivalents>4 Pertinent Negatives Pertinent Negatives: No Major Pulmonary Symptoms or Complaints Cardiac & Pulmonary Exam Cardiac Exam: Normal S1/S2 Heart Sounds Pulmonary Exam: Rhonchi Present Airway Exam Known Difficult Airway: No Mallampati Class: 4 Mouth Opening: Narrow (< 3cm) Thyromental Distance: Greater than 3 cm Neck Range of Motion: Limited ROM Neck Circumference: Thick Teeth Condition: Edentulous ASA Classification ASA Score: ASA 3 ASA Emergency: No NPO Status NPO Status: NPO Clears >2 hours, Solids >8 hours Anesthesia Plan Anesthesia Technique: General Anesthesia Airway Planned: Natural Airway Monitors Used: Standard Monitors Additional Preop Comments:: 2018 had a cardiac workup for chest pain (negative cath/stress test). His follow up with cardiology believe that his chest pain was likely related to coronary vasospasm. Currently doing well. BS this bs 171. Imaging and Studies Imaging and Studies EKG Summary 05/06: Sinus Marcin, no acute change. Echocardiogram Summary 12/2018: LVEF 60-65%, trivial MR/TR. Cardiac Catheterization Summary 2018: Normal coronary arteries. Carotid Artery Summary: 2015: no hemodynamic significant stenosis. Pulmonary Function Summary 2018: WNL, General Info Date of Service This is a Shared Provider Document. All providers who document on this will be required to sign document once completed. Please Communicate with Team Date Performed: 06/11/20 Height: 5 ft 6 in Weight: 107.501 kg Body Mass Index (BMI): 38.2 Surgical Procedure: Operation Date: 06/11/20 07:40 Proposed Procedures Side Surgeon p Cystoscopy/Retrograde Bilateral Desmond Rogers MD s Transurethral Resection Bladder Tumor Desmond Rogers MD Vital Signs and Lab Results Vital Signs Most Recent Vital Signs in EMR: 136/69, 61, 24, 36.5, 99% Point of Care Results Nursing Point of Care Results: Finger Stick Blood Glucose 171 H (70 - 120) 06/11/20 07:01 06/11/20 Lab Results Blood Type / Crossmatch: No Data to Display Complete Blood Count: White Blood Count 7.28 10^3/uL (4.4-10.8) 04/23/20 08:10 04/23/20 Red Blood Count 5.43 10^6/uL (4.36-5.78) 04/23/20 08:10 04/23/20 Hemoglobin 16.3 g/dL (13.5-17.5) 04/23/20 08:10 04/23/20 Hematocrit 48.5 % (40.0-50.0) 04/23/20 08:10 04/23/20 Platelet Count 189 10^3/uL (130-400) 04/23/20 08:10 04/23/20 Lactate 1.9 mmol/L (0.6-1.4) H 03/09/19 20:40 03/09/19 Complete Metabolic Panel: Sodium Level 137 mmol/L (136-145) 04/23/20 08:10 04/23/20 Potassium Level 3.9 mmol/L (3.5-5.1) 04/23/20 08:10 04/23/20 Chloride Level 103 mmol/L (98-107) 04/23/20 08:10 04/23/20 Carbon Dioxide Level 23.8 mmol/L (21.0-32.0) 04/23/20 08:10 04/23/20 Blood Urea Nitrogen 16 mg/dL (7-18) 04/23/20 08:10 04/23/20 Creatinine 1.2 mg/dL (0.70-1.30) 04/23/20 08:10 04/23/20 Magnesium Level 1.8 mg/dL (1.8-2.4) 04/22/20 12:00 04/22/20 Calcium Level 8.8 mg/dL (8.5-10.1) 04/23/20 08:10 04/23/20 Albumin 3.7 g/dL (3.4-5.0) 04/23/20 08:10 04/23/20 Glucose Level 162 mg/dL (74-106) H 04/23/20 08:10 04/23/20 Hemoglobin A1c 6.5 % (4.5-5.7) H 04/30/20 11:10 04/30/20 C-Reactive Protein 0.20 mg/dL (0.0-0.3) 09/20/19 14:15 09/20/19 Liver Function Panel: Alanine Aminotransferase (ALT/SGPT) 39 U/L (16-63) 04/23/20 08:10 04/23/20 Aspartate Amino Transf (AST/SGOT) 19 U/L (15-37) 04/23/20 08:10 04/23/20 Coagulation Panel: INR International Normalized Ratio 1.0 (0.9-1.1) 04/22/20 12:00 04/22/20 Prothrombin Time 9.7 sec (9.3-11.0) 04/22/20 12:00 04/22/20 Activated Partial Thromboplast Time 24.7 sec (21.0-27.5) 04/22/20 12:00 04/22/20 D-Dimer 354 ng/mlFEU (<500) 04/23/20 08:10 04/23/20 Cardiac Panel: 2 Troponin I < 0.05 ng/mL (<0.06) 04/23/20 11:10 04/23/20 NN-Xzk-[id number]-Type Natriuretic Peptide 11 pg/mL (<300) 09/17/19 09:15 09/17/19 Creatine Kinase 301 U/L (39-308) 12/25/15 09:33 12/25/15 Arterial Blood Gas: No Data to Display Venous Blood Gas: Venous Blood pH 7.37 (7.31-7.41) 02/17/16 14:37 02/17/16 Venous Blood HCO3 22 mmol/L (19-25) 02/17/16 14:37 02/17/16 Venous Blood Base Excess -3.0 (-2-3) L 02/17/16 14:37 02/17/16 Venous Blood Total Carbon Dioxide 24 mmol/L (24-29) 02/17/16 14:37 02/17/16 Venous Blood Lactate 1.6 mmol/L (0.6-1.4) H 04/23/20 08:27 04/23/20 Pancreas Panel: Lipase 196 U/L (73-393) 04/22/20 12:00 04/22/20 Thyroid Panel: Thyroid Stimulating Hormone (TSH) 1.26 uIU/mL (0.36-3.74) 04/23/20 08:10 04/23/20 Infectious Disease: Coronavirus (COVID-19)(PCR) Negative (Negative) 06/08/20 09:41 06/08/20 Coronavirus 2019 Source Nasal/nares 06/08/20 09:41 06/08/20 HIV (1&2) Ag and Ab, 4th Generation Negative (NEGAT) 11/13/16 14:30 11/13/16 Hepatitis C Antibody Negative (NEGAT) 11/13/16 14:30 11/13/16 Blood Cultures: Blood Culture Toxicology Panel: No Data to Display Panel: No Data to Display PFSH Medical History Abdominal obesity Abnormal stress test Bilateral hydrocele Chronic kidney disease (CKD), stage III (moderate) (05/26/16) ? due to DM or to hypertension Complex regional pain syndrome (06/27/13) Diabetes mellitus type 2 in obese (02/19/16) presented with polyuria, elevated FS on friend's glucometer, A1c 14 at [facility] ER Essential hypertension goal <140/85 Family history of cerebral aneurysm Mother in Mar 2020 Gastroesophageal reflux disease without esophagitis (12/05/11) ER 11/2014 rx PPI Mixed hyperlipidemia (02/16/01) low HDL 27; SL HIGH TG; CV RISK (12/2016): 27%: rec Statin Obesity, unspecified (12/05/11) 1993 165#; 180 gives BMI <30 Obstructive sleep apnea (03/10/16) [id number], severe in REM sleep Sleep study PSG on 03/10/16: AHI 20.1; SPO2 shailesh 82%; CPAP begun 06/08/16. with improvement in fatigue 06/29/16 restudied higher pressures needed assoc. with treatment of central sleep apnea Paresthesias (10/27/16) nocturnal, bilateral, R>L, Median nerve, probable CTS Right arm numbness Sessile colonic polyp (09/26/14) @ transverse colon, sigmoid Tobacco use disorder Quit 2019, restarted late in the year Vitamin D deficiency Surgical History Cardiac Cath (03/24/17) [facility]-2018 Colonoscopy - IV Sedation (09/26/14) [facility] Perri, serrated polyp, fragments of sessile serrated adenoma Cystoscopy w/ joe retrograde pyelogram (03/01/15) Extraction of cataract (12/17/16) Left Radha Manzo; R 11/19/16 Social History Smoking/Tobacco Use Status: Current every day Tobacco: How many years used: 41 Quit status: considering quitting Smoking risk assessment performed?: Yes Alcohol Intake: former Drug use: Never Substance use type: does not use Details: pt. states he started smoking again Household members: significant other Housing: apartment Number of Children: 3 Communication Needs: None Do you need help understanding health information?: Often Current gender identity: male What is your relationship status?: living with partner Panel score (0-1 are the most socially isolated patients): 1 What type of physical activity do you participate in: none Seatbelt use: always Drive intox or ride w/intox customer service driver: No Working smoke detector in home: No Fire extinguisher in home: No Carbon monox detector in home: No Do you feel safe at home: Yes Do you feel safe in your relationship?: Yes Meds Allergies and Home Medications Allergies Allergy/AdvReac Type Severity Reaction Status Date / Time celecoxib Allergy Intermediate Rash, Verified 06/11/20 06:29 urticaria naproxen Allergy Intermediate Itchy Welts Verified 06/11/20 06:29 prednisone AdvReac Unknown Upset Verified 06/11/20 06:29 stomach, fatigue Current Visit Medication Generic Name Dose Route Start Last Admin Trade Name Freq PRN Reason Stop Dose Admin Ringer's Solution 1,000 mls @ 80 mls/hr 06/11/20 06:00 06/11/20 07:00 IV 07/08/20 23:59 80 mls/hr INFUSION COURTNEY Administration Cefazolin Sodium/Dextrose 1 gm in 50 mls @ 100 mls/hr 06/11/20 06:00 Ancef Duplex IVPB 06/11/20 23:59 PREOP COURTNEY IV Miscellaneous Supplies 1 each 06/11/20 06:00 Iv Access IV 07/08/20 23:59 DIRECTED COURTNEY Sodium Chloride 0 ml 06/11/20 06:00 Normal Saline Flush 10 Ml Syr IV 07/08/20 23:59 PRN PRN Sodium Chloride 0 ml 06/11/20 06:00 Normal Saline 10 Ml Vial IJ 07/08/20 23:59 DIRECTED PRN Sterile Water 0 ml 06/11/20 06:00 Water,Injection,Sterile 10 Ml Vial IJ 07/08/20 23:59 DIRECTED PRN Home Medication Medication Instructions Recorded acetaminophen 500 mg tablet 500 mg PO Q4H PRN 10/26/17 atorvastatin 20 mg tablet 20 mg PO DAILY #90 tab 11/04/18 amlodipine 2.5 mg tablet 2.5 mg PO DAILY #90 tab-cap 06/13/19 cholecalciferol (vitamin D3) 50 2,000 unit PO DAILY #90 tab-cap 06/13/19 mcg (2,000 unit) tablet blood sugar diagnostic #100 each 08/29/19 lancets 28 gauge #25 each 08/29/19 nitroglycerin 0.4 mg sublingual 0.4 mg SUBLINGUAL Q5 MIN PRN X3 09/21/19 tablet #100 tab albuterol sulfate 90 mcg/actuation 1 - 2 puff INHALATION Q4H PRN #1 10/20/19 aerosol inhaler inhaler empagliflozin 10 mg tablet 10 mg PO QAM #30 tab 11/18/19 aspirin 81 mg tablet,delayed 81 mg PO DAILY 90 Days #90 tabec 02/02/20 release omeprazole 40 mg capsule,delayed 40 mg PO DAILY #90 cap 02/02/20 release lisinopril 30 mg tablet 30 mg PO DAILY #90 tab-cap 03/13/20 metformin 500 mg tablet,extended 1,000 mg PO DAILY #180 tab-cap 04/17/20 release 24 hr gabapentin 300 mg capsule 300 mg PO QHS #20 cap 04/25/20
[2020-06-11 06:37] VITALS: BP 132/69; PULSE 61; RESP 24; TEMP 36.5; O2SAT 99
--- NOTE | 2020-06-11 06:58 | HPE_ITS ---
Date of service: 06/11/20 Time of Service: 06:59 Assessment and Plan Assessment and plan (1) Microscopic hematuria: Status: Chronic Assessment and plan: For cystoscopy, bilateral retrograde pyelogram and possible TURBT History of Present Illness History of Present Illness Chief Complaint: Microscopic hematuria Narrative: Mansoor is a 54-year-old male referred to urology by [facility] internal medicine for bilateral hydroceles. Patient notes that he is not having any scrotal discomfort. He states he is more concerned about the history of blood in his urine on microscopic level. He reports that he has had microscopic hematuria to his knowledge for the past 6 years. He states he saw urology here in approximately 2014. He remembers having a OR procedure and bleeding heavily afterwards. He does not recall any follow-up to the clinic after the OR procedure. He denies the need to strain, dysuria, slow stream, weak stream, incontinence, feeling of incomplete emptying, flank pain or gross hematuria. He does note right lower quadrant discomfort that sometimes is centered suprapubically. He did have a recent CT done through the emergency room and no identified cause was noted. Review of Systems Narrative: No fevers or chills No vision change or dysphasia Hx diabetes. No thyroid No shortness of breath, cough or hemoptysis No chest pain or palpitations Hx GERD. No hepatitis, ulcers, jaundice No seizures, strokes or peripheral neuropathy No bleeding disorders or anemia No gout [facility] History Abdominal obesity Abnormal stress test Bilateral hydrocele Chronic kidney disease (CKD), stage III (moderate) (05/26/16) ? due to DM or to hypertension Complex regional pain syndrome (06/27/13) Diabetes mellitus type 2 in obese (02/19/16) presented with polyuria, elevated FS on friend's glucometer, A1c 14 at [facility] ER Essential hypertension goal <140/85 Family history of cerebral aneurysm Mother in Mar 2020 Gastroesophageal reflux disease without esophagitis (12/05/11) ER 11/2014 rx PPI Mixed hyperlipidemia (02/16/01) low HDL 27; SL HIGH TG; CV RISK (12/2016): 27%: rec Statin Obesity, unspecified (12/05/11) 1993 165#; 180 gives BMI <30 Obstructive sleep apnea (03/10/16) [id number], severe in REM sleep Sleep study PSG on 03/10/16: AHI 20.1; SPO2 shailesh 82%; CPAP begun 06/08/16. with improvement in fatigue 06/29/16 restudied higher pressures needed assoc. with treatment of central sleep apnea Paresthesias (10/27/16) nocturnal, bilateral, R>L, Median nerve, probable CTS Right arm numbness Sessile colonic polyp (09/26/14) @ transverse colon, sigmoid Tobacco use disorder Quit 2019, restarted late in the year Vitamin D deficiency Surgical History Cardiac Cath (03/24/17) [facility] [place]-2018 Colonoscopy - IV Sedation (09/26/14) [facility] Perri, serrated polyp, fragments of sessile serrated adenoma Cystoscopy w/ joe retrograde pyelogram (03/01/15) Extraction of cataract (12/17/16) Left Radha Manzo; R 11/19/16 Family History Father , lung cancer at age 67. Essential hypertension Neoplasm Mother Diabetes Essential hypertension Sister No problems noted. Sister No problems noted. Social History Smoking/Tobacco Use Status: Current every day Tobacco: How many years used: 41 Quit status: considering quitting Smoking risk assessment performed?: Yes Alcohol Intake: former Drug use: Never Substance use type: does not use Details: pt. states he started smoking again Household members: significant other Housing: apartment Number of Children: 3 Communication Needs: None Do you need help understanding health information?: Often Current gender identity: male What is your relationship status?: living with partner Panel score (0-1 are the most socially isolated patients): 1 What type of physical activity do you participate in: none Seatbelt use: always Drive intox or ride w/intox semi driver: No Working smoke detector in home: No Fire extinguisher in home: No Carbon monox detector in home: No Do you feel safe at home: Yes Do you feel safe in your relationship?: Yes Meds Allergies and Home Medications Allergies Allergy/AdvReac Type Severity Reaction Status Date / Time celecoxib Allergy Intermediate Rash, Verified 06/11/20 06:29 urticaria naproxen Allergy Intermediate Itchy Welts Verified 06/11/20 06:29 prednisone AdvReac Unknown Upset Verified 06/11/20 06:29 stomach, fatigue Home Medications Medication Instructions Recorded Confirmed Type acetaminophen 500 mg tablet 500 mg PO Q4H PRN 10/26/17 06/11/20 History atorvastatin 20 mg tablet 20 mg PO DAILY #90 tab 11/04/18 06/11/20 Rx amlodipine 2.5 mg tablet 2.5 mg PO DAILY #90 tab-cap 06/13/19 06/11/20 Rx cholecalciferol (vitamin D3) 50 2,000 unit PO DAILY #90 tab-cap 06/13/19 06/11/20 Rx mcg (2,000 unit) tablet blood sugar diagnostic #100 each 08/29/19 06/07/20 Rx lancets 28 gauge #25 each 08/29/19 06/07/20 History nitroglycerin 0.4 mg sublingual 0.4 mg SUBLINGUAL Q5 MIN PRN X3 09/21/19 06/11/20 Rx tablet #100 tab albuterol sulfate 90 mcg/actuation 1 - 2 puff INHALATION Q4H PRN #1 10/20/19 06/11/20 Rx aerosol inhaler inhaler empagliflozin 10 mg tablet 10 mg PO QAM #30 tab 11/18/19 06/11/20 Rx aspirin 81 mg tablet,delayed 81 mg PO DAILY 90 Days #90 tabec 02/02/20 06/11/20 Rx release omeprazole 40 mg capsule,delayed 40 mg PO DAILY #90 cap 02/02/20 06/11/20 Rx release lisinopril 30 mg tablet 30 mg PO DAILY #90 tab-cap 03/13/20 06/11/20 Rx metformin 500 mg tablet,extended 1,000 mg PO DAILY #180 tab-cap 04/17/20 06/11/20 Rx release 24 hr gabapentin 300 mg capsule 300 mg PO QHS #20 cap 04/25/20 06/11/20 Rx Exam Const General: cooperative Nutritional Appearance: obese Neck Neck: supple Resp Effort & Inspection: normal respiratory effort Auscultation: clear to auscultation bilaterally Cardio Rate: regular rate Rhythm: regular rhythm GI Inspection: obesity Palpation: soft Neuro General: patient alert, patient awake and patient oriented x3 Results Last Vital Signs Temp 36.5 C 06/11/20 06:37 Pulse 61 06/11/20 06:37 Resp 24 06/11/20 06:37 BP 132/69 06/11/20 06:37 Pulse Ox 99 06/11/20 06:37 COVID-19 Screening Have you, or household traveled for leisure in last 14 days?: No Had IN PERSON contact w/suspected or confirmed C-19 person: No
[2020-06-11] MEDS: Lactated Ringers 1,000 ML 80 ML IV (07:00)
[2020-06-11 07:09] VITALS: BMI 38.2
[2020-06-11] MEDS: ceFAZolin 1 GM/50 ML BAG IVPB (07:40)
[2020-06-11] MEDS: Omnipaque 300 MG/ML 50 ML BTL (08:00)
[2020-06-11] MEDS: Lidocaine 2% Jelly 6 ML SYR (08:00)
--- NOTE | 2020-06-11 08:00 | PAPNONF_PTH ---
PATIENT: Pavan Padilla JR LOC: [facility] U#:[id number] AGE/SX: 54/M ROOM: RE06/11/[address]: Desmond Rogers MD : 1965 BED: DIS: 06/11/2020 SPEC #: [id number] RECD: 06/11/20 13:03 STATUS: JOCE REQ #: [id number] JOSE ARMANDO: 06/11/20 08:[address]: Desmond Rogers DEPT: [facility] Cytology RECD BY: Lisa Watson ENTERED: 06/11/20 13:04 SP TYPE: BARRINGT[place] BURNS DR: Garth Marroquin DO Tissues: 1 - BODY FLUID CYTO(SPUTUM/URINE)[facility] Procedures: BODY FLUID CYTO(URINE/SPUTUM) Comments: [id number] (TOTAL VOLUME = 70 ml's) (35 ml's URINE & 35 ml'S CYTOLYT ADDED IN 2 CONTAINERS)
--- NOTE | 2020-06-11 08:00 | DI.RAD_ITS ---
EXAM: XR RETROGRADE IN OR CLINICAL HISTORY: bilateral pyleogram. TECHNIQUE: 2D digital imaging was performed. COMPARISON: No exams were available for comparison FINDINGS: Fluoroscopy was provided during retrograde study performed by the urologist. The radiologist was not present. The 2 supplied images reveal opacification of the upper half of both ureters and upper collecting sys tems and appear unremarkable. Total fluoroscopy time 31.7 seconds Cumulative dose 16.47 mGy IMPRESSION: DATA REPOSITORY: RADIATION DOSE DELIVERED:
--- NOTE | 2020-06-11 08:03 | PDOC.DSDIS_ITS ---
Discharge Plan Disposition Patient Disposition: HOME Condition: Stable Discharge Details Reason For Visit: microscopic hematuria Attending Provider: Desmond Rogers Primary Care Provider: Garth Marroquin [place] Meds and New Rx's Prescriptions: No Action acetaminophen [Tylenol Extra Strength] 500 mg tablet 500 mg PO Q4H PRNRF: 0 (DME) lancets [FreeStyle Lancets] 28 gauge misc See Rx Instructions .ROUTE .MEDSUPPLY Qty: 25 RF: 0 (DME) FreeStyle Lite Strips Strip See Rx Instructions .ROUTE .MEDSUPPLY Qty: 100 RF: 3 albuterol sulfate [Ventolin HFA] 90 mcg/actuation HFA aerosol inhaler 1 - 2 puff Inhalation Q4H PRN Qty: 1 RF: 6 atorvastatin 20 mg tablet 20 mg PO DAILY Qty: 90 RF: 3 amlodipine 2.5 mg tablet 2.5 mg PO DAILY Qty: 90 RF: 3 cholecalciferol (vitamin D3) [Vitamin D3] 50 mcg (2,000 unit) tablet 2,000 unit PO DAILY Qty: 90 RF: 3 nitroglycerin [Nitrostat] 0.4 mg tablet, sublingual 0.4 mg Sublingual Q5 MIN PRN X3 Qty: 100 RF: 1 Jardiance 10 mg tablet 10 mg PO QAM Qty: 30 RF: 6 aspirin 81 mg tablet,delayed release (DR/EC) 81 mg PO DAILY 90 Days Qty: 90 RF: 3 omeprazole 40 mg capsule,delayed release(DR/EC) 40 mg PO DAILY Qty: 90 RF: 3 lisinopril 30 mg tablet 30 mg PO DAILY Qty: 90 RF: 3 metformin 500 mg tablet extended release 24 hr 1,000 mg PO DAILY Qty: 180 RF: 3 gabapentin 300 mg capsule 300 mg PO QHS Qty: 20 RF: 0 Discharge Instructions Additional Instructions: F/U 2 weeks for cytology results Activity:: Activity as Tolerated Shower/Bathe:: 24 hours Diet:: As Tolerated Discharge Orders Discharge Orders: Discharge Order (Routine); Ordered 06/11/20 Ordered By: Desmond Rogers DS: Diagnosis Discharge Diagnosis (1) Microscopic hematuria: Status: Chronic
--- NOTE | 2020-06-11 08:07 | W.PM.OP ---
Date of service: 06/11/20 Time of Service: 08:07 Operative Note Operative Note DATE OF PROCEDURE: 06/11/20 PRE-OP DIAGNOSIS: Microscopic hematuria POST-OP DIAGNOSIS: same PROCEDURE: Cystoscopy, bilateral retrograde pyelogram, bladder washing for cytology SURGEON: Desmond Rogers ANESTHESIA TYPE: General:No Airway Refer to Anesthesia Record ESTIMATED BLOOD LOSS: 5 PATHOLOGY: other (bladder washing for cytology) COMPLICATIONS: None Patient was transported to: same day Patient's condition: stable Indications: This is a 54-year-old gentleman who has a history of microscopic hematuria. He had a negative work-up about 5 years ago. Over the past 5 years, he has had persistent microscopic hematuria with no gross hematuria. He had a CT scan with contrast that showed renal cysts but no solid renal masses. He presents now for cystoscopy and retrograde pyelogram to complete his hematuria work-up. Findings: No bladder tumors Normal retrograde pyelogram Hyperemic bladder mucosa Procedure Description: The patient was brought to the operating room on 06/11/2020. He was given preoperative antibiotics. After successful induction of general anesthesia without intubation, he was placed in the dorsal lithotomy position. His genitalia was prepped and draped. 2% Xylocaine jelly was instilled into the urethra to act as a local anesthetic. A 22 [place] rigid cystoscope was passed through the urethra into the bladder. The urethra and bladder were inspected with the 30 degree lens. The pendulous, bulbous and membranous urethra is all appeared normal with no strictures. The prostatic urethra showed some lateral lobe enlargement but no papillary lesions. No active bleeding was seen from the prostate. The bladder neck was then entered and the bladder mucosa was inspected. Both ureteral orifice ease appeared normal in configuration and location. No blood was seen coming from either side. Each ureteral orifice was then cannulated with a 6 [place]ian access catheter. Retrograde pyelograms were obtained by injecting Omnipaque through the access catheter under fluoroscopic guidance. Both ureters and collecting systems appeared normal. Both sides drained promptly on 5-minute drainage films. The remainder of the bladder was then inspected using both a 30 and a 70 degree lens. No papillary or nodular lesions were seen. The bladder mucosa was slightly hyperemic diffusely. We then elected to obtain bladder washings for cytology. The bladder was filled with saline through a Evelin syringe. The washings were collected in a sterile container and sent to pathology for examination. He tolerated this procedure well with no complications.
[2020-06-11 08:13] VITALS: BP 108/54; PULSE 65; RESP 16; TEMP 36.2; O2SAT 96
--- NOTE | 2020-06-11 08:25 | W.ANESPOSTOP ---
Postoperative Evaluation Date, Time and Location Date Performed: 06/11/20 Time Performed: : Patient Location: Day Surgery Unit Vital Signs Most Recent Imported Vital Signs: Most Recent Vital Signs Temp Pulse Resp BP Pulse Ox 36.5 C 61 24 132/69 99 06/11/20 06:37 06/11/20 06:37 06/11/20 06:37 06/11/20 06:37 06/11/20 06:37 Most Recent Manually Entered Vital Signs: Adult Blood Pressure: 108/54 Heart Rate: 65 Respirations: 16 Oxygen Saturation (%): 96 Temperature (C): 36.2 C Pain Score (0-10 Scale): 4 Assessment Mental Status: Awake (Alert & Oriented to Patient Baseline) Airway and Respiratory Function: Patent airway with normal (patient baseline) respiratory exam Cardiovascular Function: Hemodynamically Stable Hydration Status: Adequately Hydrated Nausea & Vomiting: No Nausea or Vomiting Pain: Pt. Denies Any Pain Peripheral Nerve Block: Patient did not receive a nerve block
[2020-06-11 08:33] VITALS: BP 108/54; PULSE 65; RESP 16; TEMPC 36.2; O2SAT 96
[2020-06-11 08:55] VITALS: BP 134/63; PULSE 64; RESP 24; TEMP 36.4; O2SAT 97
[2020-06-11] MEDS: Phenazopyridine 200 MG TAB PO (08:56)
== END 2020-06-11 09:40 | disposition home or self-care (01) ==
PROVIDERS: PCP Family Medicine; Visit Provider Urology
PROC: (CPT 74450; principal; 2020-06-11 07:30)
DX: R31.29 Other microscopic hematuria (principal)
CPT/HCPCS: 52005; 74420; 88104; J0690; J2001; J2704; Q9967

== ENCOUNTER → 2020-06-12 10:33 | Outpatient (BNVA) | payer MEDICARE, MEDICAID, SELFPAY | PROVIDERS: PCP Family Medicine; Referring Provider Family Medicine; Visit Provider Urology | DX: R30.0 Dysuria (principal); Z98.890 Other specified postprocedural states | CPT/HCPCS: 99212; 99213 ==

== ENCOUNTER → 2020-06-29 14:46 | Outpatient (BNVA) | payer MEDICARE, MEDICAID, SELFPAY | PROVIDERS: PCP Family Medicine; Referring Provider Family Medicine; Visit Provider Urology | DX: R31.29 Other microscopic hematuria (principal) | CPT/HCPCS: 99213 ==

== ENCOUNTER → 2020-07-26 13:49 | Outpatient (BNVA) | payer MEDICARE, MEDICAID, SELFPAY | PROVIDERS: PCP Family Medicine; Referring Provider Family Medicine; Visit Provider Nurse Practitioner Adult Health | DX: G56.03 Carpal tunnel syndrome, bilateral upper limbs (principal); I10 Essential (primary) hypertension; E11.22 Type 2 diabetes mellitus with diabetic chronic kidney disease; N18.9 Chronic kidney disease, unspecified | CPT/HCPCS: 95886; 95909; 99203; 99215 ==

== ENCOUNTER 2020-11-21 01:33 | Outpatient (CLI) | payer MEDICARE, MEDICAID, SELFPAY ==
--- NOTE | 2020-11-21 07:50 | DI.CTLCSR_ITS ---
Exam(s) CT CHEST LUNG CANCER SCREEN EXAM: CT CHEST LUNG CANCER SCREEN CLINICAL HISTORY: Screening for lung cancer,CURRENT SMOKER, F17.210 TECHNIQUE: Imaging Protocol: Axial computed tomography images with coronal and sagittal reformatted images were created and reviewed CT CT CHEST PE CTA from 10/15/[address] CHEST PE CTA from 10/15/[address] ABDOMEN PELVIS W from 03/01/[address] ABDOMEN PELVIS W from 03/01/2020 FINDINGS: Tracheobronchial tree: Patent where visualized. Pulmonary parenchyma: No consolidation or dominant measurable mass. There is unchanged scarring seen in the right middle lobe and right upper lobe. There is mild basilar atelectasis. Lung Nodules: None. Mediastinum and Krysta: No dominant adenopathy or fluid collection. Thyroid gland: Unremarkable. Pleura: No effusion or pneumothorax. Heart: The heart is not dilated. No coronary artery calcifications are seen. No pericardial effusion . Aorta: Thoracic aorta non-dilated.Atherosclerosis. Upper abdomen: Fatty infiltration of the liver. Stable right renal cysts. Soft Tissues: Gynecomastia, right greater than left. Bones: Within normal limits. IMPRESSION: No pulmonary nodules. Lung RADS Cat 1 - Negative: No nodules and definitely benign nodules Lung-RADS 1.0 CATEGORIES: Category 0 - Prior chest CT exam(s) being located for comparison. Category 1 - Annual screening in 12 months. No nodules or definitely benign nodules. Category 2 - Annual screening in 12 months. Benign appearance. Nodules with low likelihood of becomin g active cancer. Category 3 - 6-month follow-up. Probably benign. Short-term follow-up suggested. Nodules with low lik elihood of becoming active cancer. Category 4A - 3-month follow-up and CT/PET if >8 mm in size. Suspicious finding. Findings which requi re additional testing. Category 4B - Findings which require additional testing and tissue sampling. Suspicious finding. Modifier S- Potentially clinically significant finding. (Non lung cancer) RADIATION DOSE DELIVERED: 90.83mGy.cm Total DLP CTDIvol 90.83mGy.cm Total DLP CTDIvol DATA REPOSITORY: All CT scans at this facility are submitted to the National Radiology Data Registry (NRDR) Dose Index Registry (DIR) with the [employer] ([employer]). RADIATION OPTIMIZATION: All CT scans at this facility use at least one of these dose optimization te chniques: automated exposure control; mA and/or kV adjustment per patient size (includes targeted exa ms where dose is matched to clinical indication); or iterative reconstruction.
== END 2020-11-21 01:53 ==
PROVIDERS: PCP Family Medicine; Visit Provider Family Medicine
DX: F17.210 Nicotine dependence, cigarettes, uncomplicated (principal); Z12.2 Encounter for screening for malignant neoplasm of respiratory organs
CPT/HCPCS: 71271

== ENCOUNTER 2020-11-28 08:56 | Emergency (ER) | payer MEDICARE, MEDICAID, SELFPAY ==
[2020-11-28] VITALS (129 sets, daily range): BP systolic 105–127; BP diastolic 46–69; PULSE 54–84; RESP 11–31; TEMP 36.6–36.7; O2SAT 94–100
--- NOTE | 2020-11-28 08:45 | RT.EKG_ITS ---
APPROVED REPORT Exam: Resting ECG Reason for Exam: dizzy Patient Location: E HR:60 bpm ECG Measurements Heart Rate 60 AXIS WA 157 P -2 QRSd 93 QRS 21 QT 398 T 32 QTc 397 Conclusion Sinus rhythm...normal P axis, V-rate 60- 99. Sinus. No STEMI. I have reviewed and interpreted ECG and agree with software generated interpretation.
--- NOTE | 2020-11-28 09:15 | DI.RAD_ITS ---
Exam(s) XR CHEST 2V PA LATERAL EXAM: XR CHEST 2V PA LATERAL CLINICAL HISTORY: Smoker, Dizzy, R/O PNA. TECHNIQUE: 2D digital imaging was performed. COMPARISON: CT CT ABDOMEN PELVIS CTA from 04/22/[address] ABDOMEN PELVIS CTA from 04/22/2020 CR XR PORTABLE CHEST AP from 04/23/2020 FINDINGS: Mild cardiomegaly. Mediastinum not widened Left lung appears clear. Slightly increased markings in the right lower lobe retrocardiac region. T here is also platelike atelectasis in the right middle lobe. No pleural effusions IMPRESSION: Subtle right lung findings as described above. No pleural effusions.If clinically indicated follow-u p CT scan can be performed. DATA REPOSITORY: RADIATION DOSE DELIVERED:
--- NOTE | 2020-11-28 09:15 | DI.CT_ITS ---
Exam(s) CT HEAD WO EXAM: CT HEAD WO CLINICAL HISTORY: Dizziness. TECHNIQUE: Imaging Protocol: Axial computed tomography images with coronal and sagittal reformatted images were created and reviewed COMPARISON: CT CT HEAD CERVICAL SPINE WO from 04/27/2018 FINDINGS: There are no skull fractures nor fluid in the visualized paranasal sinuses. There is no evidence of intracranial hemorrhage, mass effect, or shift of midline structures. There are no extra-axial fluid collections. The ventricles are not enlarged or shifted and there is no blo od within the ventricular system nor within the basal cisterns. IMPRESSION: No acute intracranial findings on this noninfused CT scan of the brain. No significant change compared to 04/27/2018 RADIATION DOSE DELIVERED: 847.61mGy.cm Total DLP DATA REPOSITORY: All CT scans at this facility are submitted to the National Radiology Data Registry (NRDR) Dose Index Registry (DIR) with the [employer] (ACR). RADIATION OPTIMIZATION: All CT scans at this facility use at least one of these dose optimization te chniques: automated exposure control; mA and/or kV adjustment per patient size (includes targeted exa ms where dose is matched to clinical indication); or iterative reconstruction.
--- NOTE | 2020-11-28 09:26 | ED.GENADUL_ITS ---
Discharge Plan Disposition Patient Disposition: HOME Condition: Stable Discharge Details Clinical Impression: Dizziness, Dyspnea Primary Care Provider: Garth Marroquni ED Provider: Petty Strong Home Meds and New Rx's Prescriptions: Continued acetaminophen [Tylenol Extra Strength] 500 mg tablet 500 mg PO Q4H PRNRF: 0 albuterol sulfate [Ventolin HFA] 90 mcg/actuation HFA aerosol inhaler 1 - 2 puff Inhalation Q4H PRN Qty: 1 RF: 6 gemfibrozil [Lopid] 600 mg tablet 600 mg PO DAILY Qty: 90 RF: 3 atorvastatin 20 mg tablet 20 mg PO DAILY Qty: 90 RF: 3 aspirin 81 mg tablet,delayed release (DR/EC) 81 mg PO DAILY 90 Days Qty: 90 RF: 3 omeprazole 40 mg capsule,delayed release(DR/EC) 40 mg PO DAILY Qty: 90 RF: 3 lisinopril 30 mg tablet 30 mg PO DAILY Qty: 90 RF: 3 metformin 500 mg tablet extended release 24 hr 1,000 mg PO DAILY Qty: 180 RF: 3 amlodipine 2.5 mg tablet 2.5 mg PO DAILY Qty: 90 RF: 3 cholecalciferol (vitamin D3) [Vitamin D3] 50 mcg (2,000 unit) tablet 2,000 unit PO DAILY Qty: 90 RF: 3 Jardiance 10 mg tablet 10 mg PO QAM Qty: 30 RF: 6 No Action (DME) lancets [FreeStyle Lancets] 28 gauge misc See Rx Instructions .ROUTE .MEDSUPPLY Qty: 25 RF: 0 (DME) FreeStyle Lite Strips Strip See Rx Instructions .ROUTE .MEDSUPPLY Qty: 100 RF: 3 nitroglycerin [Nitrostat] 0.4 mg tablet, sublingual 0.4 mg Sublingual Q5 MIN PRN X3 Qty: 100 RF: 1 docusate sodium [Colace] 100 mg capsule 100 mg PO DAILY RF: 0 polyethylene glycol 3350 [Miralax] 17 gram/dose powder 17 g PO DAILY PRN (Reason: constipation) RF: 0 semaglutide 0.25 mg or 0.5 mg(2 mg/1.5 mL) pen injector 0.25 mg subcut QWEEK RF: 0 Discharge Instructions Instructions: Dyspnea (ED), Dizziness (ED) Additional Instructions: Work-up today is largely within normal limits. Cardiac enzymes x2 are within normal limits, head CT is also within normal limits. Take the meclizine as needed for dizziness. Increase oral fluids. Follow up with primary care provider in 3-5 days. Return to ED sooner if any worsening or concerns. Increase oral fluids. Referrals: Tawnya Salas MD [ [facility] STAFF PHYSICIAN] - 2 weeks Garth Marroquin DO [Primary Care Provider] - 3 days Discharge Data Discharge Date/Time-TO BE ENTERED AT DEPARTURE: 11/28/20 13:27 Medical Decision Making 55-year-old male presents to the ER with chief complaint of dizziness, nausea which began on Thursday. He reports exertional shortness of breath with productive cough which has been ongoing. Patient is a daily smoker. He denies any vomiting, diarrhea, problems urinating. He denies any blurry vision or double vision. He reports dizziness while sitting and during exertion. It is worsened over the last few days. No leg swelling, any other associated symptoms. He reports being worked up for right hand swelling and pain. He reports that he was prescribed prednisone which he cannot take. She has a past medical history of obesity, type 2 diabetes, tobacco use disorder, cardiac cath in 2018 diverticulosis, hypertension, chronic kidney disease stage III, family history of cerebral aneurysm, GERD. EKG was reviewed by Doris Sethi DO ER attending, please see her official report. CBC shows no leukocytosis, PT within normal limits, CMP shows sodium 138 potassium 4.2 BUN 19 creatinine 1.4 GFR 52.24, glucose 134 magnesium 2.0, liver enzymes largely within normal limits, serial troponins within normal limits no change on EKG. Discussed labs with patient who verbalized understanding. Discussed follow-up with PCP, verbalized understanding for strict return instructions. Patient remained hemodynamically stable throughout stay. This text was generated using [employer] system, please disregard any oddities of phrase or misspellings. HPI General Mode of arrival: ambulatory . Date/Time Provider Initiated Documentation: 11/28/20 09:01 . Limitations to Documentation: no limitations . Information obtained by: patient, RN notes reviewed and old records reviewed . HPI Narrative: 55-year-old male presents to the ER with chief complaint of dizziness, nausea which began on Thursday. He reports exertional shortness of breath with productive cough which has been ongoing. Patient is a daily smoker. He denies any vomiting, diarrhea, problems urinating. He denies any blurry vision or double vision. He reports dizziness while sitting and during exertion. It is worsened over the last few days. No leg swelling, any other associated symptoms. He reports being worked up for right hand swelling and pain. He reports that he was prescribed prednisone which he cannot take. She has a past medical history of obesity, type 2 diabetes, tobacco use disorder, cardiac cath in 2018 diverticulosis, hypertension, chronic kidney disease stage III, family history of cerebral aneurysm, GERD. Related Data Home Medications Medication Instructions Recorded Confirmed acetaminophen 500 mg tablet 500 mg PO Q4H PRN 10/26/17 11/29/20 blood sugar diagnostic #100 each 08/29/19 11/29/20 lancets 28 gauge #25 each 08/29/19 11/29/20 nitroglycerin 0.4 mg sublingual 0.4 mg SUBLINGUAL Q5 MIN PRN X3 09/21/19 11/29/20 tablet #100 tab albuterol sulfate 90 mcg/actuation 1 - 2 puff INHALATION Q4H PRN #1 10/20/19 11/29/20 aerosol inhaler inhaler aspirin 81 mg tablet,delayed 81 mg PO DAILY 90 Days #90 tabec 02/02/20 11/29/20 release omeprazole 40 mg capsule,delayed 40 mg PO DAILY #90 cap 02/02/20 11/29/20 release lisinopril 30 mg tablet 30 mg PO DAILY #90 tab-cap 03/13/20 11/29/20 metformin 500 mg tablet,extended 1,000 mg PO DAILY #180 tab-cap 04/17/20 11/29/20 release 24 hr amlodipine 2.5 mg tablet 2.5 mg PO DAILY #90 tab-cap 06/28/20 11/29/20 cholecalciferol (vitamin D3) 50 2,000 unit PO DAILY #90 tab-cap 06/28/20 1 mcg (2,000 unit) tablet empagliflozin 10 mg tablet 10 mg PO QAM #30 tab 06/28/20 11/29/20 docusate sodium 100 mg capsule 100 mg PO DAILY 07/06/20 11/29/20 polyethylene glycol 3350 17 17 g PO DAILY PRN 07/06/20 11/29/20 gram/dose oral powder semaglutide 0.25 mg SUBCUT QWEEK 10/01/20 11/29/20 atorvastatin 20 mg tablet 20 mg PO DAILY #90 tab 11/09/20 11/29/20 gemfibrozil 600 mg tablet 600 mg PO DAILY #90 tab 11/09/20 11/29/20 Previous Rx's Medication Instructions Recorded blood sugar diagnostic #100 each 08/29/19 nitroglycerin 0.4 mg sublingual 0.4 mg SUBLINGUAL Q5 MIN PRN X3 09/21/19 tablet #100 tab albuterol sulfate 90 mcg/actuation 1 - 2 puff INHALATION Q4H PRN #1 10/20/19 aerosol inhaler inhaler aspirin 81 mg tablet,delayed 81 mg PO DAILY 90 Days #90 tabec 02/02/20 release omeprazole 40 mg capsule,delayed 40 mg PO DAILY #90 cap 02/02/20 release lisinopril 30 mg tablet 30 mg PO DAILY #90 tab-cap 03/13/20 metformin 500 mg tablet,extended 1,000 mg PO DAILY #180 tab-cap 04/17/20 release 24 hr amlodipine 2.5 mg tablet 2.5 mg PO DAILY #90 tab-cap 06/28/20 cholecalciferol (vitamin D3) 50 2,000 unit PO DAILY #90 tab-cap 06/28/20 mcg (2,000 unit) tablet empagliflozin 10 mg tablet 10 mg PO QAM #30 tab 06/28/20 atorvastatin 20 mg tablet 20 mg PO DAILY #90 tab 11/09/20 gemfibrozil 600 mg tablet 600 mg PO DAILY #90 tab 11/09/20 Allergies Allergy/AdvReac Type Severity Reaction Status Date / Time celecoxib Allergy Intermediate Rash, Verified 11/29/20 13:49 urticaria naproxen Allergy Intermediate Itchy Welts Verified 11/29/20 13:49 General Stated Complaint: Dizzy/Sync JAMES: 3 Review of Systems Narrative: Constitutional: Negative for weight loss, alert and oriented, well groomed, over weight body habitus, appears comfortable. HEENT: Denies trauma, blurry vision, nasal discharge, sore throat, trouble swallowing. Chest: Denies chest pain, palpitations, irregular rhythm, Respiratory: Denies hemoptysis. GI: Denies abdominal pain, nausea, vomiting, diarrhea, constipation. : Denies dysuria, hematuria, flank pain, rectal bleeding. Neuro: Denies blurry vision, weakness, syncope,or facial numbness. Hematologic: Denies easy bruising, intolerance to heat or cold, hair loss. [facility] Medical History (Updated 11/29/20 @ 14:28 by Garth Marroquin DO) Abdominal obesity Abnormal stress test Bilateral carpal tunnel syndrome Bilateral hydrocele Chronic kidney disease (CKD), stage III (moderate) (05/26/16) ? due to DM or to hypertension Complex regional pain syndrome (06/27/13) Diabetes mellitus type 2 in obese (02/19/16) presented with polyuria, elevated FS on friend's glucometer, A1c 14 at [facility] ER Diverticulosis Colonoscopy June 2019 Essential hypertension goal <140/85 Family history of cerebral aneurysm Mother in Mar 2020 Functional bowel disorder Gastroesophageal reflux disease without esophagitis (12/05/11) ER 11/2014 rx PPI Gout R 1st PIP joint High triglycerides Mixed hyperlipidemia (02/16/01) low HDL 27; SL HIGH TG; CV RISK (12/2016): 27%: rec Statin Obesity, unspecified (12/05/11) 1993 165#; 180 gives BMI <30 Obstructive sleep apnea (03/10/16) [id number], severe in REM sleep Sleep study PSG on 03/10/16: AHI 20.1; SPO2 shailesh 82%; CPAP begun 06/08/16. with improvement in fatigue 06/29/16 restudied higher pressures needed assoc. with treatment of central sleep apnea Other constipation (~2020) [facility] Paresthesias (10/27/16) nocturnal, bilateral, R>L, Median nerve, probable CTS Polyp of colon (~2020) [facility] Right arm numbness Right lower quadrant pain (~2020) [facility] Sessile colonic polyp (09/26/14) @ transverse colon, sigmoid Tobacco use disorder Quit 2019, restarted late in the year Vitamin D deficiency Surgical History Cardiac Cath (03/24/17) [facility] [place] Colonoscopy - IV Sedation (09/26/14) [facility] Perri, serrated polyp, fragments of sessile serrated adenoma Cystoscopy w/ joe retrograde pyelogram (01/14/16) Extraction of cataract (12/17/16) Left Radha Manzo 11/19/16 Family History Father , lung cancer at age 67. Essential hypertension Neoplasm Mother Diabetes Essential hypertension Sister No problems noted. Sister No problems noted. Social History Smoking/Tobacco Use Status: Current every day Tobacco: How many years used: 41 Quit status: considering quitting Smoking risk assessment performed?: Yes Alcohol Intake: former Drug use: Never Substance use type: does not use Details: pt. states he started smoking again Household members: significant other Housing: apartment Number of Children: 3 Communication Needs: None Do you need help understanding health information?: Often Current gender identity: male What is your relationship status?: living with partner How often do you talk on the phone with friends or family?: three or more times per week How often do you get together with friends or relatives?: three or more times per week Panel score (0-1 are the most socially isolated patients): 2 What type of physical activity do you participate in: none Seatbelt use: always Drive intox or ride w/intox courtesy van driver: No Working smoke detector in home: No Fire extinguisher in home: No Carbon monox detector in home: No Do you feel safe at home: Yes Do you feel safe in your relationship?: Yes Exam Narrative Exam Narrative: Constitutional: Alert and oriented x3. Appears stated age. Normal body habitus. Head: Normocephalic, no trauma. Eyes: Pupils PERRLA, Red reflex noted, EOM's intact. Eyelids symmetrical without lesions, discharge, or swelling. ENT: Bilateral TM's WNL, External ear normal to inspection, no mastoid TTP, swelling, or erythema, Nasal turbinates WNL, no nasal discharge. Normal den tition, Posterior pharynx WNL, no exudate. Chest: RRR, Normal S1, S2, distal pulses intact. Resp: Lungs rhonchorous bilaterally Musculoskeletal: Unable to assess gait 5/5 strength to all four extremities. Skin: No suspicious rashes or lesions. Capillary refill less than 2 sec. Neurologic: Cranial nerves II-XII intact. Alert and oriented x 3. Hematologic/Lymphatic: No ecchymosis, no lymphadenopathy. Course Vital Signs Vital signs: Vital Signs Temperature 36.7 C 11/28/20 09:06 Pulse 60 11/28/20 09:06 Respiratory Rate 17 11/28/20 09:06 Blood Pressure 105/46 L 11/28/20 09:06 Pulse Oximetry 99 11/28/20 09:06 Temperature 36.7 C 11/28/20 09:06 Temperature Source Temporal Artery Scan 11/28/20 09:06 Pulse 60 11/28/20 09:06 Respiratory Rate 17 11/28/20 09:06 Blood Pressure 105/46 L 11/28/20 09:06 Blood Pressure Position Supine 11/28/20 09:06 Pulse Oximetry 99 11/28/20 09:06 Oxygen Delivery Method Room Air 11/28/20 09:06 Oxygen Flow Rate 0 11/28/20 09:06 Pain Level 0 11/28/20 09:06
[2020-11-28 09:30] LABS: Abs Immature Grans 0.05 10^3/uL (0.0-0.06); Absolute Basophil Count 0.07 10^3/uL (0.0-0.2); Absolute Eosinophil Count 0.18 10^3/uL (0.0-0.7); Absolute Lymphocyte Count 2.03 10^3/uL (1.2-3.4); Absolute Neutrophil Count 4.86 10^3/uL (1.2-6.7); Basophils % 0.9; Eosinophils % 2.3; HCT 50.6 % (40.0-50.0); HGB 16.8 g/dL (13.5-17.5); Immature Grans % 0.6; Lymphocytes % 25.4; MCH 30.5 pg (27.0-33.0); MCHC 33.2 % (32.0-36.0); MCV 91.8 fL (80-95); Neutrophils % 60.8; Nucleated RBC 0 %; Platelet Count 216 10^3/uL (130-400); RBC 5.51 10^6/uL (4.36-5.78); RDW 12.8 % (11.8-14.1); RDW-SD 43.7 fL; WBC 7.99 10^3/uL (4.4-10.8)
[2020-11-28 09:46] LABS: ALT 48 U/L (16-63); AST 23 U/L (15-37); Albumin 4.1 g/dL (3.4-5.0); Alkaline Phosphatase 81 U/L (46-116); Anion Gap 9.6 mmol/L (3-11); BUN 19 mg/dL (7-18); Bilirubin, Total 0.4 mg/dL (0.2-1.0); CO2 24.4 mmol/L (21.0-32.0); CREATININE 1.4 mg/dL (0.70-1.30); Calcium 9.3 mg/dL (8.5-10.1); Chloride 104 mmol/L (98-107); Estimated GFR 52.24 (mL/min/1.73m2); Glucose 134 mg/dL (74-106); Potassium 4.2 mmol/L (3.5-5.1); Sodium 138 mmol/L (136-145); Total Protein 7.6 g/dL (6.4-8.2)
[2020-11-28 09:47] LABS: Troponin I < 0.05 ng/mL (<0.06)
[2020-11-28] MEDS: Normal Saline 1,000 ML 500 ML IV (10:36)
[2020-11-28] MEDS: Normal Saline Flush 10 ML SYR IVP (10:37)
[2020-11-28 10:45] LABS: Lipase 223 U/L (73-393)
--- NOTE | 2020-11-28 12:00 | RT.EKG_ITS ---
APPROVED REPORT Exam: Resting ECG Reason for Exam: dizzy 2nd trop Patient Location: E HR:54 bpm ECG Measurements Heart Rate 54 AXIS NJ 170 P 3 QRSd 92 QRS 20 QT 415 T 26 QTc 394 Conclusion Sinus bradycardia...rate< 60. Sinus. No STEMI. I have reviewed and interpreted ECG and agree with software generated interpretation.
[2020-11-28 12:43] LABS: Troponin I < 0.05 ng/mL (<0.06)
== END 2020-11-28 13:27 | disposition home or self-care (01) ==
PROVIDERS: Emergency Provider Registered Nurse Emergency; PCP Family Medicine
DX: R42 Dizziness and giddiness (principal); R06.00 Dyspnea, unspecified; F17.210 Nicotine dependence, cigarettes, uncomplicated
CPT/HCPCS: 36415; 80053; 83690; 93005; 96360; 96361; 99285; 70450; 71046; 83735; 84484; 85025; 93010; 99284

== ENCOUNTER 2021-04-17 01:54 | Outpatient (CLI) | payer MEDICARE, MEDICAID, SELFPAY ==
[2021-04-17 11:01] LABS: Abs Immature Grans 0.09 10^3/uL (0.0-0.06); Absolute Basophil Count 0.09 10^3/uL (0.0-0.2); Absolute Eosinophil Count 0.25 10^3/uL (0.0-0.7); Absolute Lymphocyte Count 2.74 10^3/uL (1.2-3.4); Absolute Monocyte Count 0.94 10^3/uL (0.1-0.8); Absolute Neutrophil Count 5.27 10^3/uL (1.2-6.7); Eosinophils % 2.7; HCT 52.9 % (40.0-50.0); HGB 17.4 g/dL (13.5-17.5); Lymphocytes % 29.2; MCH 29.5 pg (27.0-33.0); MCHC 32.9 % (32.0-36.0); MCV 89.7 fL (80-95); MPV 10.1 fL (8.0-11.0); Neutrophils % 56.1; Nucleated RBC 0 %; Platelet Count 257 10^3/uL (130-400); RDW 12.8 % (11.8-14.1); RDW-SD 42.3 fL; WBC 9.38 10^3/uL (4.4-10.8)
[2021-04-17 11:03] LABS: ESR 9 mm/hr (0-20)
[2021-04-17 13:29] LABS: ALT 33 U/L (16-63); AST 22 U/L (15-37); Albumin 4.2 g/dL (3.4-5.0); Alkaline Phosphatase 88 U/L (46-116); Anion Gap 12.6 mmol/L (3-11); BUN 16 mg/dL (7-18); Bilirubin, Total 0.4 mg/dL (0.2-1.0); CO2 22.4 mmol/L (21.0-32.0); CREATININE 1.3 mg/dL (0.70-1.30); Calcium 9.3 mg/dL (8.5-10.1); Chloride 105 mmol/L (98-107); Glucose 87 mg/dL (74-106); Potassium 4.5 mmol/L (3.5-5.1); Sodium 140 mmol/L (136-145); TSH (W/Ref FT4) 0.71 uIU/mL (0.36-3.74); Total Protein 7.2 g/dL (6.4-8.2)
[2021-04-17 21:54] LABS: CRP, High Sensitivity 3.59 mg/L (See Note)
== END 2021-04-17 01:55 | disposition home or self-care (01) ==
LOC: LBO 01:54
PROVIDERS: PCP Family Medicine; Visit Provider Family Medicine
DX: R20.8 Other disturbances of skin sensation (principal); M10.9 Gout, unspecified
CPT/HCPCS: 36415; 80053; 85652; 86141; 84443; 84550; 85025

== ENCOUNTER → 2021-05-23 09:47 | Outpatient (BNVA) | payer MEDICARE, MEDICAID, SELFPAY | PROVIDERS: Referring Provider Family Medicine; Visit Provider Surgery | DX: R20.8 Other disturbances of skin sensation (principal); E66.9 Obesity, unspecified; E11.22 Type 2 diabetes mellitus with diabetic chronic kidney disease; F17.210 Nicotine dependence, cigarettes, uncomplicated; N18.30 Chronic kidney disease, stage 3 unspecified | CPT/HCPCS: 99214; 99243 ==

== ENCOUNTER → 2021-07-01 13:39 | Outpatient (BNVA) | payer MEDICARE, MEDICAID, SELFPAY | PROVIDERS: PCP Family Medicine; Referring Provider Family Medicine; Visit Provider Surgery | DX: F17.210 Nicotine dependence, cigarettes, uncomplicated (principal); K21.9 Gastro-esophageal reflux disease without esophagitis; E11.69 Type 2 diabetes mellitus with other specified complication; E66.9 Obesity, unspecified; I10 Essential (primary) hypertension; K63.5 Polyp of colon | CPT/HCPCS: 99212 ==

== ENCOUNTER → 2021-07-05 14:04 | Outpatient (BNVA) | payer MEDICARE, MEDICAID, SELFPAY | PROVIDERS: PCP Family Medicine; Referring Provider Family Medicine; Visit Provider Urology | DX: R31.29 Other microscopic hematuria (principal) | CPT/HCPCS: 81003; 99213 ==

== ENCOUNTER → 2021-07-18 08:07 | Outpatient (BNVA) | payer MEDICARE, MEDICAID, SELFPAY | PROVIDERS: PCP Family Medicine; Referring Provider Family Medicine; Visit Provider Psychiatry & Neurology Neurology | DX: G56.03 Carpal tunnel syndrome, bilateral upper limbs (principal); G56.23 Lesion of ulnar nerve, bilateral upper limbs | CPT/HCPCS: 95885; 95910; 99213 ==

== ENCOUNTER 2021-08-05 09:20 | Emergency (ER) | payer MEDICARE, MEDICAID, SELFPAY ==
[2021-08-05 09:28] VITALS: BP 105/41; PULSE 79; RESP 14; TEMP 36.6; O2SAT 97
--- NOTE | 2021-08-05 10:19 | W.ED.GENAD ---
Discharge Plan Disposition Patient Disposition: HOME Condition: Stable Discharge Details Clinical Impression: Otitis media Primary Care Provider: Judd Pizarro ED Provider: Diallo Priest Home Meds and New Rx's Prescriptions: New ofloxacin 0.3 % drops 10 drp otic (ear) BID 14 Days Qty: 10 0RF No Action acetaminophen [Tylenol Extra Strength] 500 mg tablet 500 mg PO Q4H PRN (DME) lancets [FreeStyle Lancets] 28 gauge misc See Rx Instructions .ROUTE .MEDSUPPLY Qty: 25 Rx Instructions: As directed albuterol sulfate [Ventolin HFA] 90 mcg/actuation HFA aerosol inhaler 1 - 2 puff Inhalation Q4H PRN Qty: 1 6RF Rx Instructions: PHARMACY: PLEASE DISPENSE ALBUTEROL BRAND COVERED BY INSURANCE gemfibrozil [Lopid] 600 mg tablet 600 mg PO DAILY Qty: 90 3RF atorvastatin 20 mg tablet 20 mg PO DAILY Qty: 90 3RF lisinopril 10 mg tablet 10 mg PO DAILY Qty: 90 3RF pantoprazole [Protonix] 40 mg tablet,delayed release (DR/EC) 40 mg PO DAILY Qty: 30 12RF sucralfate [Carafate] 1 gram tablet 1 g PO HS Qty: 30 12RF nitroglycerin [Nitrostat] 0.4 mg tablet, sublingual 0.4 mg Sublingual Q5 MIN PRN X3 Qty: 100 1RF Rx Instructions: 1 tab sublingual q5m PRN x3 chest pain cholecalciferol (vitamin D3) [Vitamin D3] 50 mcg (2,000 unit) tablet 2,000 unit PO DAILY Qty: 90 3RF docusate sodium [Colace] 100 mg capsule 100 mg PO DAILY Rx Instructions: [facility] polyethylene glycol 3350 [Miralax] 17 gram/dose powder 17 g PO DAILY PRN (Reason: constipation) Rx Instructions: [facility] Jardiance 10 mg tablet 10 mg PO QAM Qty: 30 6RF metformin 500 mg tablet extended release 24 hr 1,000 mg PO DAILY Qty: 180 3RF Rx Instructions: for diabetes, two tabs in the morning aspirin 81 mg tablet,delayed release (DR/EC) 81 mg PO DAILY 90 Days Qty: 90 3RF (DME) FreeStyle Lite Strips Strip See Rx Instructions .ROUTE .MEDSUPPLY Qty: 100 3RF Label Comments: pt. states he checks his sugars when he thinks his sugars high Rx Instructions: Test daily to keep HbA1c less than 6.5%; Dx: E11.9 semaglutide 0.25 mg or 0.5 mg(2 mg/1.5 mL) pen injector 1 mg subcut QWEEK Rx Instructions: 09/27/20 [place] [facility] [place] 0.25 MG SB ONCE A WEEK FOR 28 DAYS, THEN 0.5 MG ONCE A WEEK. PT GOT MED 10/01/20 TIMOTHY 03/22/21-incr dose per [facility] [place] Discharge Instructions Instructions: Ear Infection (ED) Additional Instructions: It is very important for you to take the prescribed oral antibiotic for your left ear infection. Given that you are also having tenderness to the outside of your ear we will give you eardrops. Please take both for the full course until fully completed. If you have any significant worsening of symptoms feel free to return the emergency department for reassessment if not improving please follow-up with your primary care provider for reassessment next week. Referrals: Judd Pizarro [Primary Care Provider] - 1 week (For reassessment of ear pain) Medical Decision Making Patient presenting to the emergency department for chief complaint of left ear pain. He states that this is been going on for approximately 1 week and was initially started on Augmentin which she took for 3 days and had no improvement so primary care provider switched him to cefdinir. He has been taking this for last 3 days but again has had no improvement of symptoms. Patient denies any worsening of symptoms fever chills, lymphadenopathy, headache, or drainage from the ear. Physical exam shows a tender erythematous left ear canal with difficult to visualize TM but what is visualized does appear to be bulging erythematous and loss of landmarks. Exam is otherwise unremarkable, no lymphadenopathy. At this time I doubt malignant otitis media patient is nontoxic and otherwise stable and appears. There is no rash present so doubt zoster at this time. Given that the canal is edematous and erythematous we will place patient on ofloxacin drops and encouraged him to continue cefdinir oral antibiotics. Close monitoring of symptoms along with return and follow-up precautions were discussed. Patient placed upon follow-up with primary care provider for reassessment preferably next week to ensure patient is improving or if patient needs a referral to ENT for further evaluation. After discussion of diagnosis and plan of care patient has no further needs, questions, or concerns and states clear understanding to return to the emergency department for any worsening symptoms. This documentation was generated using LMN-1 dictation system, please disregard any oddities of phrase or misspellings. HPI General Mode of arrival: ambulatory. Date/Time Provider Initiated Documentation: 08/05/21 10:03. Limitations to Documentation: no limitations. Information obtained by: RN notes reviewed and old records reviewed. History of Present Illness 55 year old M presents to the emergency department with the chief complaint of Left ear pain, described as moderate, with intensity rated at 7. Quality is described as aching, and is localized to the left (ear). Patient reports no radiation. Patient started experiencing this week(s) (1) and it has been constant. No relieving factors improve symptom(s), No exacerbating factors reported . Patient notes no other symptoms.. Patient did receive the following treatments prior to arrival, other (Rx'ed abx) Related Data Home Medications Medication Instructions Recorded Confirmed acetaminophen 500 mg tablet 500 mg PO Q4H PRN 10/26/17 07/18/21 (Tylenol Extra Strength) lancets 28 gauge (FreeStyle #25 ea 08/29/19 07/18/21 Lancets) nitroglycerin 0.4 mg sublingual 0.4 mg sublingual Q5 MIN PRN X3 09/21/19 07/18/21 tablet (Nitrostat) chest pain #100 tabs albuterol sulfate 90 mcg/actuation 1 - 2 puff inhalation Q4H PRN ##1 10/20/19 07/18/21 aerosol inhaler (Ventolin HFA) cholecalciferol (vitamin D3) 50 2,000 unit PO DAILY #90 tab-caps 06/28/20 07/18/21 mcg (2,000 unit) tablet (Vitamin D3) docusate sodium 100 mg capsule 100 mg PO DAILY 07/06/20 07/18/21 (Colace) polyethylene glycol 3350 17 17 g PO DAILY PRN constipation 07/06/20 07/18/21 gram/dose oral powder (Miralax) atorvastatin 20 mg tablet 20 mg PO DAILY #90 tabs 11/09/20 07/18/21 gemfibrozil 600 mg tablet (Lopid) 600 mg PO DAILY #90 tabs 11/09/20 07/18/21 empagliflozin 10 mg tablet 10 mg PO QAM #30 tabs 01/08/21 07/18/21 (Jardiance) metformin 500 mg tablet,extended 1,000 mg PO DAILY #180 tab-caps 01/29/21 07/18/21 release 24 hr aspirin 81 mg tablet,delayed 81 mg PO DAILY 90 days ##90 01/31/21 07/18/21 release lisinopril 10 mg tablet 10 mg PO DAILY #90 tabs 03/08/21 07/18/21 blood sugar diagnostic (FreeStyle #100 ea 03/14/21 07/18/21 Lite Strips) semaglutide 0.25 mg or 0.5 mg (2 1 mg subcut QWEEK 03/22/21 07/18/21 mg/1.5 mL) subcutaneous pen injector pantoprazole 40 mg tablet,delayed 40 mg PO DAILY #30 tabs 05/23/21 07/18/21 release (Protonix) sucralfate 1 gram tablet (Carafate) 1 g PO HS #30 tabs 05/23/21 07/18/21 ofloxacin 0.3 % ear drops 10 drp otic (ear) BID 14 days #10 08/05/21 mL Previous Rx's Medication Instructions Recorded nitroglycerin 0.4 mg sublingual 0.4 mg sublingual Q5 MIN PRN X3 09/21/19 tablet (Nitrostat) chest pain #100 tabs albuterol sulfate 90 mcg/actuation 1 - 2 puff inhalation Q4H PRN ##1 10/20/19 aerosol inhaler (Ventolin HFA) cholecalciferol (vitamin D3) 50 2,000 unit PO DAILY #90 tab-caps 06/28/20 mcg (2,000 unit) tablet (Vitamin D3) atorvastatin 20 mg tablet 20 mg PO DAILY #90 tabs 11/09/20 gemfibrozil 600 mg tablet (Lopid) 600 mg PO DAILY #90 tabs 11/09/20 empagliflozin 10 mg tablet 10 mg PO QAM #30 tabs 01/08/21 (Jardiance) metformin 500 mg tablet,extended 1,000 mg PO DAILY #180 tab-caps 01/29/21 release 24 hr aspirin 81 mg tablet,delayed 81 mg PO DAILY 90 days ##90 01/31/21 release lisinopril 10 mg tablet 10 mg PO DAILY #90 tabs 03/08/21 blood sugar diagnostic (FreeStyle #100 ea 03/14/21 Lite Strips) pantoprazole 40 mg tablet,delayed 40 mg PO DAILY #30 tabs 05/23/21 release (Protonix) sucralfate 1 gram tablet (Carafate) 1 g PO HS #30 tabs 05/23/21 ofloxacin 0.3 % ear drops 10 drp otic (ear) BID 14 days #10 08/05/21 mL Allergies Allergy/AdvReac Type Severity Reaction Status Date / Time celecoxib Allergy Intermediate Rash, Verified 08/05/21 09:30 urticaria naproxen Allergy Intermediate Itchy Welts Verified 08/05/21 09:30 General Stated Complaint: EarProblem JAMES: 4 Review of Systems Constitutional Constitutional: Denies chills, Denies fever(s), Denies headache(s) and Denies malaise Eyes Eyes: Denies change in vision ENT Ears, Nose, Mouth, and Throat: Reports as per HPI, Denies vertigo, Denies dizziness, Denies ear discharge, Reports otalgia, Denies headache(s), Denies nasal congestion, Denies neck pain, Denies sinus pain and Denies sore throat Cardiovascular Cardiovascular: Denies chest pain Respiratory Respiratory: Denies cough Gastrointestinal Gastrointestinal: Denies abdominal pain, Denies nausea and Denies vomiting Musculoskeletal Musculoskeletal: Denies neck pain Integumentary/Breasts Skin/Breast: Denies erythema and Denies rash Neurologic Neurologic: Denies vertigo, Denies dizziness and Denies headache(s) PFSH All Active Problems Otitis media (Acute) Cubital tunnel syndrome of both upper extremities (Acute) Carpal tunnel syndrome of right wrist (Acute) Carpal tunnel syndrome of left wrist (Acute) Eructation (Acute) Burning sensation (Acute) History of alcohol abuse (Acute) Umbilical hernia (Acute) Gout (Chronic) R 1st PIP joint Dizziness (Acute) Dyspnea (Acute) High triglycerides (Acute) Sinusitis (Acute) Bilateral carpal tunnel syndrome (Acute) Right lower quadrant pain (Acute ~2020) [facility] Polyp of colon (Acute ~2020) [facility] Other constipation (Acute ~2020) [facility] Diverticulosis (Chronic) Colonoscopy June 2019 Functional bowel disorder (Acute) Right arm numbness (Acute) Microscopic hematuria (Chronic 02/27/14) CT neg; JUSTINO neg; persists 01/2015 Type 2 diabetes mellitus (Chronic 12/05/11) Chest pain (Acute) Hypertrophy of tonsils (Acute) 02/21/2019 ENT, Dr Lange Dysfunction of left eustachian tube (Acute) 02/21/[address] Lange Edentulous (Acute) Chronic maxillary sinusitis (Acute) History of sinusitis (Acute) Chest pain (Acute) Abdominal pain (Acute) Lightheadedness (Acute) Hematuria (Acute) Family history of cerebral aneurysm (Chronic) Mother in Mar 2020 Bilateral hydrocele (Acute) Abdominal obesity (Acute) Vitamin D deficiency (Chronic) Tobacco use disorder (Chronic) Quit 2019, restarted late in the year Diabetes mellitus type 2 in obese (Chronic 02/19/16) presented with polyuria, elevated FS on friend's glucometer, A1c 14 at [facility] ER Complex regional pain syndrome (Chronic 06/27/13) Obstructive sleep apnea (Chronic 03/10/16) [id number], severe in REM sleep Sleep study PSG on 03/10/16: AHI 20.1; SPO2 shailesh 82%; CPAP begun 06/08/16. with improvement in fatigue 06/29/16 restudied higher pressures needed assoc. with treatment of central sleep apnea Obesity, unspecified (Chronic 12/05/11) 1993 165#; 180 gives BMI <30 05/06/21 [facility], BMI 35.10 Mixed hyperlipidemia (Chronic 02/16/01) low HDL 27; SL HIGH TG; CV RISK (12/2016): 27%: rec Statin Gastroesophageal reflux disease without esophagitis (Chronic 12/05/11) ER 11/2014 rx PPI Essential hypertension (Chronic) goal <140/85 Chronic kidney disease (CKD), stage III (moderate) (Chronic 05/26/16) ? due to DM or to hypertension Abnormal stress test (Chronic) Medical History Paresthesias (10/27/16) nocturnal, bilateral, R>L, Median nerve, probable CTS Sessile colonic polyp (09/26/14) @ transverse colon, sigmoid Surgical History [place]03[place]24/17[place] [facility] - IV Sedation (09/26/14) [facility], serrated polyp, fragments of sessile serrated adenoma Cystoscopy w/ joe retrograde pyelogram (03/01/15) Extraction of cataract (12/17/16) Left Radha Manzo; R 11/19/16 Family History Father , lung cancer at age 67. Essential hypertension Neoplasm Mother Diabetes Essential hypertension Sister No problems noted. Sister No problems noted. Social History Smoking/Tobacco Use Status: Current every day Tobacco: How many years used: 41 Quit status: considering quitting Smoking risk assessment performed?: Yes Alcohol Intake: former Drug use: Never Substance use type: does not use Details: pt. states he started smoking again Household members: significant other Housing: apartment Number of Children: 3 Communication Needs: None Do you need help understanding health information?: Often current occupation: Disabled Current gender identity: male What is your relationship status?: living with partner How often do you talk on the phone with friends or family?: three or more times per week How often do you get together with friends or relatives?: three or more times per week Panel score (0-1 are the most socially isolated patients): 2 What type of physical activity do you participate in: none Seatbelt use: always Drive intox 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 Working smoke detector in home: No Fire extinguisher in home: No Carbon monox detector in home: No Do you feel safe at home: Yes Do you feel safe in your relationship?: Yes Exam Const General: cooperative, comfortable and no acute distress Orientation: alert and awake [facility] Head: normal to inspection, normocephalic and atraumatic Ears: hearing grossly normal bilaterally, external ears normal, EAC abnormal erythema on the left, edema on the left and EAC tenderness on the left; no foreign body and no otic discharge and TM abnormal bulging on the left, dull on the right, erythematous on the left and with loss of landmarks on the left General nose exam: external nose normal Face and sinus: no erythema Mouth: oral mucosae normal, no drooling, no muffled voice and no trismus Throat: posterior oropharynx normal Neck Neck: normal visual inspection, full ROM, no lymphadenopathy, no meningeal signs, trachea midline and supple Resp Effort & Inspection: normal respiratory effort and able to speak in complete sentences Skin General skin exam: no rashes or lesions noted and dry skin (warm) Neuro General: patient alert, patient awake, patient oriented x3, gait normal and moves all extremities Cognition: normal cognition Speech: speech normal Course Vital Signs Vital signs: Vital Signs Temperature 36.6 C 08/05/21 09:28 Pulse 79 08/05/21 09:28 Respiratory Rate 14 08/05/21 09:28 Blood Pressure 105/41 L 08/05/21 09:28 Pulse Oximetry 97 08/05/21 09:28 Temperature 36.6 C 08/05/21 09:28 Temperature Source Oral 08/05/21 09:28 Pulse 79 08/05/21 09:28 Respiratory Rate 14 08/05/21 09:28 Respiratory Effort Non-Labored 08/05/21 09:30 Blood Pressure 105/41 L 08/05/21 09:28 Blood Pressure Position Supine 08/05/21 09:28 Pulse Oximetry 97 08/05/21 09:28 Oxygen Delivery Method Room Air 08/05/21 09:28 Oxygen Flow Rate 0 08/05/21 09:28 Pain Level 7 08/05/21 09:33
--- NOTE | 2021-08-05 10:32 | NUR.NOTE ---
Nursing Note: Referral faxed to PCP for follow up ear pain next week.
== END 2021-08-05 10:51 | disposition home or self-care (01) ==
PROVIDERS: Emergency Provider Nurse Practitioner Family; PCP Family Medicine
DX: H66.92 Otitis media, unspecified, left ear (principal); F17.200 Nicotine dependence, unspecified, uncomplicated
CPT/HCPCS: 99283

== ENCOUNTER 2021-08-07 16:15 | Outpatient (REF) | payer MEDICARE, MEDICAID, SELFPAY ==
[2021-08-07 14:35] LABS: Calculated LDL 32 mg/dL (<100); Cholesterol 100 mg/dL (<200); HDL Cholesterol 30 mg/dL (40-60); Triglyceride 193 mg/dL (<150)
== END 2021-08-07 16:16 | disposition home or self-care (01) ==
LOC: NCHCN 16:15
PROVIDERS: PCP Family Medicine; Visit Provider Family Medicine
DX: E78.2 Mixed hyperlipidemia (principal)
CPT/HCPCS: 80061

== ENCOUNTER → 2021-08-26 13:45 | Outpatient (BNVA) | payer MEDICARE, MEDICAID, SELFPAY | PROVIDERS: PCP Family Medicine; Referring Provider Family Medicine; Visit Provider Student in an Organized Health Care Education/Training Program | DX: F17.210 Nicotine dependence, cigarettes, uncomplicated (principal); G56.23 Lesion of ulnar nerve, bilateral upper limbs; G56.01 Carpal tunnel syndrome, right upper limb; G56.02 Carpal tunnel syndrome, left upper limb | CPT/HCPCS: 99214 ==

== ENCOUNTER 2021-09-02 01:22 | Outpatient (CLI) | payer MEDICARE, MEDICAID, SELFPAY ==
[2021-09-02 11:59] LABS: Source Nasal/Nares
[2021-09-02 15:36] LABS: COVID-19 PCR Negative (Negative)
== END 2021-09-02 01:23 | disposition home or self-care (01) ==
LOC: LBO 01:23
PROVIDERS: PCP Family Medicine; Visit Provider Student in an Organized Health Care Education/Training Program
DX: Z20.822 Contact with and (suspected) exposure to COVID-19 (principal); Z01.818 Encounter for other preprocedural examination
CPT/HCPCS: 87635

== ENCOUNTER 2021-09-03 09:19 | Day surgery (SDC) | payer MEDICARE, MEDICAID, SELFPAY ==
[2021-09-03] VITALS (9 sets, daily range): BP systolic 109–150; BP diastolic 53–96; PULSE 60–71; RESP 13–24; TEMP 35.9–36.5; O2SAT 93–99; BMI 34.0
[2021-09-03] MEDS: Lactated Ringers 1,000 ML 80 ML IV (10:08)
--- NOTE | 2021-09-03 10:08 | W.ANESPRE ---
General Info Date of Service Date Performed: 09/03/21 Height: 5 ft 6 in Weight: 95.6 kg Body Mass Index (BMI): 34.0 Surgical Procedure: Operation Date: 09/03/21 12:10 Proposed Procedure Side Surgeon p Wrist ECTR Left Ambrocio Leger MD s Elbow Ulnar Nerve Transposition Left Ambrocio Leger MD Meds Allergies and Home Medications Allergies Allergy/AdvReac Type Severity Reaction Status Date / Time celecoxib Allergy Intermediate Rash, Verified 09/03/21 09:45 urticaria naproxen Allergy Intermediate Itchy Welts Verified 09/03/21 09:45 Home Medication Medication Instructions Recorded acetaminophen 500 mg tablet 500 mg PO Q4H PRN 10/26/17 (Tylenol Extra Strength) lancets 28 gauge (FreeStyle #25 ea 08/29/19 Lancets) nitroglycerin 0.4 mg sublingual 0.4 mg sublingual Q5 MIN PRN X3 09/21/19 tablet (Nitrostat) chest pain #100 tabs albuterol sulfate 90 mcg/actuation 1 - 2 puff inhalation Q4H PRN ##1 10/20/19 aerosol inhaler (Ventolin HFA) cholecalciferol (vitamin D3) 50 2,000 unit PO DAILY #90 tab-caps 06/28/20 mcg (2,000 unit) tablet (Vitamin D3) docusate sodium 100 mg capsule 100 mg PO DAILY 07/06/20 (Colace) polyethylene glycol 3350 17 17 g PO DAILY PRN constipation 07/06/20 gram/dose oral powder (Miralax) atorvastatin 20 mg tablet 20 mg PO DAILY #90 tabs 11/09/20 gemfibrozil 600 mg tablet (Lopid) 600 mg PO DAILY #90 tabs 11/09/20 empagliflozin 10 mg tablet 10 mg PO QAM #30 tabs 01/08/21 (Jardiance) metformin 500 mg tablet,extended 1,000 mg PO DAILY #180 tab-caps 01/29/21 release 24 hr aspirin 81 mg tablet,delayed 81 mg PO DAILY 90 days ##90 01/31/21 release lisinopril 10 mg tablet 10 mg PO DAILY #90 tabs 03/08/21 blood sugar diagnostic (FreeStyle #100 ea 03/14/21 Lite Strips) semaglutide 0.25 mg or 0.5 mg (2 1 mg subcut QWEEK 03/22/21 mg/1.5 mL) subcutaneous pen injector pantoprazole 40 mg tablet,delayed 40 mg PO DAILY #30 tabs 05/23/21 release (Protonix) sucralfate 1 gram tablet (Carafate) 1 g PO HS #30 tabs 05/23/21 PFSH Active Problems Active Problems: Problem Status Onset Code Otitis media H66.90 Cubital tunnel syndrome of both upper extremities G56.23 Carpal tunnel syndrome of right wrist G56.01 Carpal tunnel syndrome of left wrist G56.02 Eructation R14.2 Burning sensation R20.8 History of alcohol abuse F10.11 Umbilical hernia K42.9 Gout M10.9 Dizziness R42 Dyspnea R06.00 High triglycerides E78.1 Sinusitis J32.9 Bilateral carpal tunnel syndrome G56.03 Right lower quadrant pain ~2020 R10.31 Polyp of colon ~2020 K63.5 Other constipation ~2020 K59.09 Diverticulosis K57.90 Functional bowel disorder K59.9 Right arm numbness R20.0 Microscopic hematuria 02/27/14 R31.29 Type 2 diabetes mellitus 12/05/11 E11.9 Chest pain R07.9 Hypertrophy of tonsils J35.1 Dysfunction of left eustachian tube H69.82 Edentulous K00.0 Chronic maxillary sinusitis J32.0 History of sinusitis Z87.09 Chest pain R07.9 Abdominal pain R10.9 Lightheadedness R42 Hematuria R31.9 Family history of cerebral aneurysm Z82.49 Bilateral hydrocele N43.3 Abdominal obesity E65 Vitamin D deficiency Tobacco use disorder Diabetes mellitus type 2 in obese 02/19/16 E11.69, E66.9 Complex regional pain syndrome 06/27/13 Obstructive sleep apnea 03/10/16 G47.33 Obesity, unspecified 12/05/11 E66.9 Mixed hyperlipidemia 02/16/01 E78.2 Gastroesophageal reflux disease without esophagitis 12/05/11 K21.9 Essential hypertension I10 Chronic kidney disease (CKD), stage III (moderate) 05/26/16 N18.3 Abnormal stress test R94.39 Medical History Medical History Paresthesias (10/27/16) nocturnal, bilateral, R>L, Median nerve, probable CTS Sessile colonic polyp (09/26/14) @ transverse colon, sigmoid Medical History Comments:: pt has CPAP HS Right lung asculatation, wheezes heard in RUL, RLL Moist productive smokers cough, white sputum Surgical History Surgical [place]03/24/17[place] [facility] [place] - IV Sedation (09/26/14) [facility], serrated polyp, fragments of sessile serrated adenoma Cystoscopy w/ joe retrograde pyelogram (03/01/15) Extraction of cataract (12/17/16) Left Radha Manzo; R 11/19/16 Tobacco Smoking/Tobacco Use Status: Current every day Tobacco Type: cigarettes Alcohol Alcohol Intake: former Substance Use Substance use: Never Substance use type: does not use Vital Signs and Lab Results Vital Signs Most Recent Vital Signs in EMR: Most Recent Vital Signs Temp Pulse Resp BP Pulse Ox 36.5 C 71 18 109/66 99 09/03/21 09:50 09/03/21 09:50 09/03/21 09:50 09/03/21 09:50 09/03/21 09:50 Point of Care Results Point of Care Results: Finger Stick Blood Glucose 104 09/03/21 09:42 Lab Results Blood Type / Crossmatch: No Data to Display Complete Blood Count: No Data to Display Complete Metabolic Panel: No Data to Display Liver Function Panel: No Data to Display Coagulation Panel: No Data to Display Cardiac Panel: No Data to Display Arterial Blood Gas: No Data to Display Venous Blood Gas: No Data to Display Pancreas Panel: No Data to Display Thyroid Panel: No Data to Display Infectious Disease: Coronavirus (COVID-19)(PCR) Negative (Negative) 09/02/21 10:05 Coronavirus 2019 Source Nasal/Nares 09/02/21 10:05 Blood Cultures: No Data to Display Toxicology Panel: No Data to Display Imaging and Studies Imaging and Studies Study information below may be from another EMR and interpreted by another provider. Please see original notes in EMR for more complete details. EKG Summary: 05/06: Sinus Marcin, no acute change. Stress Test Summary: Stress ECG Conclusion 09/2019 1. This was an exercise stress test converted to pharmacological due to inability to reach target heart rate. 2. Patient no symptoms suggestive of ischemia 3. EKG portion of this exam is nondiagnostic. Echocardiogram Summary: 12/2018: LVEF 60-65%, trivial MR/TR. Cardiac Catheterization Summary: 2018: Normal coronary arteries. Carotid Artery Summary:: 2015: no hemodynamic significant stenosis. Pulmonary Function Summary: 2018: WNL, Anesthesia Assessment and Plan Anesthesia History Personal History: No History of Anesthesia Complications Family History: No Family History of Anesthesia Complications Exercise Tolerance Exercise Tolerance: Metabolic Equivalents>4 Pertinent Negatives Pertinent Negatives: No Major Cardiovascular Symptoms or Complaints and No Major Pulmonary Symptoms or Complaints Cardiac & Pulmonary Exam Cardiac Exam: Normal S1/S2 Heart Sounds Pulmonary Exam: Clear Bilateral Breath Sounds Implantable Cardiac Device Does patient have a Pacemaker or an ICD?: No Airway Exam Known Difficult Airway: No Mallampati Class: 4 Mouth Opening: Narrow (< 3cm) Thyromental Distance: Greater than 3 cm Neck Range of Motion: Limited ROM Neck Circumference: Thick Teeth Condition: Edentulous ASA Classification ASA Score: ASA 3 Emergency Case?: No NPO Status NPO Status: NPO Clears >2 hours, Solids >8 hours Anesthesia Plan Resuscitation Status: Full Code Anesthesia Technique: General Anesthesia Airway Planned: Endotracheal Tube Monitors Used: Standard Monitors
--- NOTE | 2021-09-03 10:49 | W.PREOPHP ---
Assessment and Plan Assessment and plan (1) Carpal tunnel syndrome of right wrist: Status: Acute (2) Carpal tunnel syndrome of left wrist: Status: Acute (3) Cubital tunnel syndrome of both upper extremities: Status: Acute Assessment and plan: Mansoor is a 56-year-old has bilateral carpal tunnel and cubital tunnel. He continues have symptoms and his severe findings on his nerve traction studies and therefore I offered carpal tunnel and cubital tunnel release, starting with the left side. All his questions were answered. I reviewed the risk of the procedure to include bleeding, infection, pain, stiffness, continued numbness, continued symptoms, damage to nerves and vessels, cutaneous neuroma, need for repeat procedures. Despite these risk, he elects to proceed. History of Present Illness History of Present Illness Chief Complaint: Left Carpal and Cubital Tunnel Syndrome Narrative: Mansoor is a 56 yo male who I've seen in the office for symptoms of numbness, tingling, and pain about both upper extremities. This is now limiting his ability to function on a daily basis. He has had nerve conduction studies which confirmed the diagnosis of bilateral carpal tunnel and cubital tunnel syndrome. He is most bothered by the left side and is here today for his left carpal tunnel and cubital tunnel. He elected to proceed with the right side near future. He continues to smoke 2 packs a day. He otherwise has been in his usual state of health. He has no COVID-19 symptoms and has tested negative for COVID-19. Review of Systems All systems reviewed & are unremarkable except as noted in HPI and below PFSH All Active Problems Otitis media (Acute) Cubital tunnel syndrome of both upper extremities (Acute) Carpal tunnel syndrome of right wrist (Acute) Carpal tunnel syndrome of left wrist (Acute) Eructation (Acute) Burning sensation (Acute) History of alcohol abuse (Acute) Umbilical hernia (Acute) Gout (Chronic) R 1st PIP joint Dizziness (Acute) Dyspnea (Acute) High triglycerides (Acute) Sinusitis (Acute) Bilateral carpal tunnel syndrome (Acute) Right lower quadrant pain (Acute ~2020) [facility] Polyp of colon (Acute ~2020) [facility] Other constipation (Acute ~2020) [facility] Diverticulosis (Chronic) Colonoscopy June 2019 Functional bowel disorder (Acute) Right arm numbness (Acute) Microscopic hematuria (Chronic 02/27/14) CT neg; JUSTINO neg; persists 01/2015 Type 2 diabetes mellitus (Chronic 12/05/11) Chest pain (Acute) Hypertrophy of tonsils (Acute) 02/21/2019 ENT, Dr Lange Dysfunction of left eustachian tube (Acute) 02/21/[address] Lange Edentulous (Acute) Chronic maxillary sinusitis (Acute) History of sinusitis (Acute) Chest pain (Acute) Abdominal pain (Acute) Lightheadedness (Acute) Hematuria (Acute) Family history of cerebral aneurysm (Chronic) Mother in Mar 2020 Bilateral hydrocele (Acute) Abdominal obesity (Acute) Vitamin D deficiency (Chronic) Tobacco use disorder (Chronic) Quit 2019, restarted late in the year Diabetes mellitus type 2 in obese (Chronic 02/19/16) presented with polyuria, elevated FS on friend's glucometer, A1c 14 at [facility] Complex regional pain syndrome (Chronic 06/27/13) Obstructive sleep apnea (Chronic 03/10/16) [id number], severe in REM sleep Sleep study PSG on 03/10/16: AHI 20.1; SPO2 shailesh 82%; CPAP begun 06/08/16. with improvement in fatigue 06/29/16 restudied higher pressures needed assoc. with treatment of central sleep apnea Obesity, unspecified (Chronic 12/05/11) 1993 165#; 180 gives BMI <30 05/06/21 [facility] [place] [facility], BMI 35.10 Mixed hyperlipidemia (Chronic 02/16/01) low HDL 27; SL HIGH TG; CV RISK (12/2016): 27%: rec Statin Gastroesophageal reflux disease without esophagitis (Chronic 12/05/11) ER 11/2014 rx PPI Essential hypertension (Chronic) goal <140/85 Chronic kidney disease (CKD), stage III (moderate) (Chronic 05/26/16) ? due to DM or to hypertension Abnormal stress test (Chronic) Medical History Paresthesias (10/27/16) nocturnal, bilateral, R>L, Median nerve, probable CTS Sessile colonic polyp (09/26/14) @ transverse colon, sigmoid Surgical History Cardiac Cath (03/24/17) [facility] [place] Colonoscopy - IV Sedation (09/26/14) [facility], serrated polyp, fragments of sessile serrated adenoma Cystoscopy w/ joe retrograde pyelogram (03/01/15) Extraction of cataract (12/17/16) Left Radha Manzo; Natividad 11/19/16 Family History Father , lung cancer at age 67. Essential hypertension Neoplasm Mother Diabetes Essential hypertension Sister No problems noted. Sister No problems noted. Social History Smoking/Tobacco Use Status: Current every day Tobacco Type: cigarettes Tobacco: How many years used: 41 Quit status: considering quitting Smoking risk assessment performed?: Yes Alcohol Intake: former Drug use: Never Substance use type: does not use Household members: significant other Housing: apartment Number of Children: 3 Communication Needs: None Do you need help understanding health information?: Often current occupation: Disabled Current gender identity: male What is your relationship status?: living with partner How often do you talk on the phone with friends or family?: three or more times per week How often do you get together with friends or relatives?: three or more times per week Panel score (0-1 are the most socially isolated patients): 2 What type of physical activity do you participate in: none Seatbelt use: always Drive 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 Working smoke detector in home: No Fire extinguisher in home: No Carbon monox detector in home: No Do you feel safe at home: Yes Do you feel safe in your relationship?: Yes Meds Allergies and Home Medications Allergies Allergy/AdvReac Type Severity Reaction Status Date / Time celecoxib Allergy Intermediate Rash, Verified 09/03/21 09:45 urticaria naproxen Allergy Intermediate Itchy Welts Verified 09/03/21 09:45 Home Medications Medication Instructions Recorded Confirmed Type acetaminophen 500 mg tablet 500 mg PO Q4H PRN 10/26/17 09/03/21 History (Tylenol Extra Strength) lancets 28 gauge (FreeStyle #25 ea 08/29/19 08/30/21 History Lancets) nitroglycerin 0.4 mg sublingual 0.4 mg sublingual Q5 MIN PRN X3 09/21/19 09/03/21 Rx tablet (Nitrostat) chest pain #100 tabs albuterol sulfate 90 mcg/actuation 1 - 2 puff inhalation Q4H PRN ##1 10/20/19 09/03/21 Rx aerosol inhaler (Ventolin HFA) cholecalciferol (vitamin D3) 50 2,000 unit PO DAILY #90 tab-caps 06/28/20 09/03/21 Rx mcg (2,000 unit) tablet (Vitamin D3) docusate sodium 100 mg capsule 100 mg PO DAILY 07/06/20 09/03/21 History (Colace) polyethylene glycol 3350 17 17 g PO DAILY PRN constipation 07/06/20 09/03/21 History gram/dose oral powder (Miralax) atorvastatin 20 mg tablet 20 mg PO DAILY #90 tabs 11/09/20 09/03/21 Rx gemfibrozil 600 mg tablet (Lopid) 600 mg PO DAILY #90 tabs 11/09/20 09/03/21 Rx empagliflozin 10 mg tablet 10 mg PO QAM #30 tabs 01/08/21 09/03/21 Rx (Jardiance) metformin 500 mg tablet,extended 1,000 mg PO DAILY #180 tab-caps 01/29/21 09/03/21 Rx release 24 hr aspirin 81 mg tablet,delayed 81 mg PO DAILY 90 days ##90 01/31/21 09/03/21 Rx release lisinopril 10 mg tablet 10 mg PO DAILY #90 tabs 03/08/21 09/03/21 Rx blood sugar diagnostic (FreeStyle #100 ea 03/14/21 08/30/21 Rx Lite Strips) semaglutide 0.25 mg or 0.5 mg (2 1 mg subcut QWEEK 03/22/21 09/03/21 History mg/1.5 mL) subcutaneous pen injector pantoprazole 40 mg tablet,delayed 40 mg PO DAILY #30 tabs 05/23/21 09/03/21 Rx release (Protonix) sucralfate 1 gram tablet (Carafate) 1 g PO HS #30 tabs 05/23/21 09/03/21 Rx Exam Const General: cooperative, healthy appearing, comfortable and no acute distress Nutritional Appearance: overweight Resp Auscultation: clear to auscultation bilaterally, wheezes scattered wheezes, right lower and right upper and other Cardio Rate: regular rate Rhythm: regular rhythm Results Last Vital Signs Temp 36.5 C 09/03/21 09:50 Pulse 71 09/03/21 09:50 Resp 18 09/03/21 09:50 BP 109/66 09/03/21 09:50 Pulse Ox 99 09/03/21 09:50
--- NOTE | 2021-09-03 11:09 | PDOC.DSDIS_ITS ---
Discharge Plan Disposition Patient Disposition: HOME Condition: Good Discharge Details Reason For Visit: Left ECTR and cubital tunnel release Attending Provider: Ambrocio Leger Primary Care Provider: Judd Pizarro Home Meds and New Rx's Prescriptions: New ibuprofen 600 mg tablet 600 mg PO TID Qty: 20 0RF hydrocodone-acetaminophen 5-325 mg tablet 1 tab PO Q6H PRNQty: 5 0RF acetaminophen 500 mg capsule 1,000 mg PO Q8H PRN PRNQty: 20 0RF Continued acetaminophen [Tylenol Extra Strength] 500 mg tablet 500 mg PO Q4H PRN Label Comments: 09/03/21 pt repors he last took this 2 months agao (DME) lancets [FreeStyle Lancets] 28 gauge misc See Rx Instructions .ROUTE .MEDSUPPLY Qty: 25 Rx Instructions: As directed albuterol sulfate [Ventolin HFA] 90 mcg/actuation HFA aerosol inhaler 1 - 2 puff Inhalation Q4H PRN Qty: 1 6RF Label Comments: 09/03/21 pt reports he hasnt used in @ 5 months Rx Instructions: PHARMACY: PLEASE DISPENSE ALBUTEROL BRAND COVERED BY INSURANCE gemfibrozil [Lopid] 600 mg tablet 600 mg PO DAILY Qty: 90 3RF atorvastatin 20 mg tablet 20 mg PO DAILY Qty: 90 3RF lisinopril 10 mg tablet 10 mg PO DAILY Qty: 90 3RF pantoprazole [Protonix] 40 mg tablet,delayed release (DR/EC) 40 mg PO DAILY Qty: 30 12RF sucralfate [Carafate] 1 gram tablet 1 g PO HS Qty: 30 12RF nitroglycerin [Nitrostat] 0.4 mg tablet, sublingual 0.4 mg Sublingual Q5 MIN PRN X3 Qty: 100 1RF Label Comments: 09/03/21 pt reports he hasnt taken in @ 3 months Rx Instructions: 1 tab sublingual q5m PRN x3 chest pain cholecalciferol (vitamin D3) [Vitamin D3] 50 mcg (2,000 unit) tablet 2,000 unit PO DAILY Qty: 90 3RF docusate sodium [Colace] 100 mg capsule 100 mg PO DAILY [place] [facility] [facility] [place] glycol 3350 [Miralax] 17 gram/dose powder 17 g PO DAILY PRN (Reason: constipation) Rx Instructions: [facility] Jardiance 10 mg tablet 10 mg PO QAM Qty: 30 6RF metformin 500 mg tablet extended release 24 hr 1,000 mg PO DAILY Qty: 180 3RF Rx Instructions: for diabetes, two tabs in the morning aspirin 81 mg tablet,delayed release (DR/EC) 81 mg PO DAILY 90 Days Qty: 90 3RF (DME) FreeStyle Lite Strips Strip See Rx Instructions .ROUTE .MEDSUPPLY Qty: 100 3RF Label Comments: pt. states he checks his sugars when he thinks his sugars high Rx Instructions: Test daily to keep HbA1c less than 6.5%; Dx: E11.9 semaglutide 0.25 mg or 0.5 mg(2 mg/1.5 mL) pen injector 1 mg subcut QWEEK Rx Instructions: 09/27/20 [place] [facility] [place] 0.25 MG SB ONCE A WEEK FOR 28 DAYS, THEN 0.5 MG ONCE A WEEK. PT GOT MED 10/01/20 TIMOTHY 03/22/21-incr dose [place] [facility] [place] Discharge Instructions Additional Instructions: Carpal Tunnel/Cubital Tunnel Decompression Discharge Instructions Activity: You should stay in the sling for the first 2 weeks. You may come out of the sling for gentle motion and hygiene but should largely remain in the sling to allow the incision site to heal. Gentle motion of the elbow, hand, wrist, and fingers is okay and encouraged after the first few days, but no repetitive activities nor heavy lifting. You may apply ice. Medications: - You should take Tylenol and Ibuprofen around the clock. - You have been prescribed Hydrocodone for breakthrough pain. Dressings: - The initial surgical dressing should stay in place for 3 days. It may then be removed and kept clean and dry. You should cover with a light gauze dressing. - You may shower after 3 days and get the wound wet. Follow-up: 10-14 days Referrals: Ambrocio Leger MD [ [facility] STAFF PHYSICIAN] - Equipment/Supplies: Sling Activity:: Activity as Tolerated Remove Dressings/Wound Care:: 72 hours Shower/Bathe:: 72 hours Diet:: As Tolerated Discharge Orders Discharge Orders: Discharge Order (Routine); Ordered 09/03/21 Ordered By: Brianna Mcdonald DS: Diagnosis Discharge Diagnosis (1) Carpal tunnel syndrome of right wrist: Status: Acute (2) Carpal tunnel syndrome of left wrist: Status: Acute (3) Cubital tunnel syndrome of both upper extremities: Status: Acute
[2021-09-03] MEDS: ceFAZolin 2,000 MG in Normal Saline 100 ML 200 MG IVPB (11:10)
[2021-09-03] MEDS: Bupivacaine 0.5% Pres-Free W/EPI 10 ML VIAL (11:27)
[2021-09-03] MEDS: Bupivacaine 0.5% Pres-Free 30 ML VIAL (11:57)
--- NOTE | 2021-09-03 13:15 | W.ANESPOSTOP ---
Postoperative Evaluation Date, Time and Location Date Performed: 09/03/21 Time Performed: 13:15 Patient Location: Day Surgery Unit Vital Signs Most Recent Imported Vital Signs: Most Recent Vital Signs Temp Pulse Resp BP Pulse Ox 35.9 C L 66 13 144/78 H 95 09/03/21 13:00 09/03/21 13:00 09/03/21 12:54 09/03/21 13:00 09/03/21 13:00 Pain Score Most Recent Pain Score: Most Recent Pain Score Pain Level 0 09/03/21 13:00 Assessment Mental Status: Awake (Alert & Oriented to Patient Baseline) Airway and Respiratory Function: Patent airway with normal (patient baseline) respiratory exam Cardiovascular Function: Hemodynamically Stable Hydration Status: Adequately Hydrated Nausea & Vomiting: No Nausea or Vomiting Pain: Pt. Denies Any Pain Peripheral Nerve Block: Patient did not receive a nerve block
[2021-09-03] MEDS: Normal Saline Flush 10 ML SYR (14:04)
[2021-09-03] MEDS: Droperidol 5 MG/2 ML VIAL 0.625 MG IVP (14:04)
--- NOTE | 2021-09-03 15:33 | W.PM.OP ---
Date of service: 09/03/21 Time of Service: 12:05 Operative Note Operative Note DATE OF PROCEDURE: 09/03/21 PRE-OP DIAGNOSIS: Left Carpal Tunnel and Left Cubital Tunnel Syndrome POST-OP DIAGNOSIS: same PROCEDURE: Left endoscopic Carpal Tunnel Release and left cubital Tunnel Decompression with Anterior Subcutaneous Transposition SURGEON: Ambrocio Leger Refer to Anesthesia Record ESTIMATED BLOOD LOSS: 5 PATHOLOGY: none sent TOURNIQUET TIME: 32 COMPLICATIONS: None Patient was transported to: PACU Patient's condition: stable Indications: Mansoor is a 56-year-old male who has had symptoms of carpal and cubital tunnel syndrome. Nonoperative treatment options had been trialed. Nerve conduction studies identified the carpal and cubital tunnel as the point of compression. Given failure of nonoperative treatments and persistent symptoms, I offered operative intervention. I reviewed the technical details of a carpal tunnel release and cubital tunnel decompression with possible anterior subcutaneous transposition. I reviewed the risk of the procedure to include bleeding, infection, pain, stiffness, nerve instability, damage to superficial nerves, persistent symptoms, and incomplete release. Despite these risks, the patient elected to proceed. Findings: The carpal tunnel was release with a standard endoscopic technique without difficulty and excellent visualization. There was a tightened cubital tunnel. The ulnar nerve was subluxating even prior to the cubital tunnel release. The ulnar nerve was release from the first motor branch distally through the [place] proximally. An anterior subcutaneous transposition was performed. Procedure Description: Mansoor was greeted in the preoperative holding area where the correct side was identified and marked. The consent was reviewed with the patient and signed. The history and physical was updated. All questions were answered. He was taken back to the operating room. The patient was placed into the supine position on the operating room table with the left arm on an arm board. A nonsterile tourniquet was placed high onto the arm, into the axilla. All bony prominences were well padded. Prophylactic antibiotics in the form of Cefazolin were administered. The left arm was then prepped with Chloraprep and draped in a standard fashion with stockinette and extremity drape. A timeout to confirm correct identity, side and site, procedure, allergies, anesthesia, and medical concerns was performed. The surgical site was marked in the volar wrist creases in line with the radial border of the fourth ray. This area was anesthetized with approximately 6cc of 1% Lidocaine with Epinephrine. The surgical site about the medial elbow was drawn on the skin just posterior to the medial epicondyle borders. The planned surgical field was anesthetized with 1% Lidocaine with Epinephrine. The limb was then exsanguinated with an Esmarch. Starting with the carpal tunnel, the skin was incised with a 15 blade, approximately 1cm. The skin only was cut and the deeper tissue was dissected bluntly with a tenotomy scissor, avoiding passing nerve and venous structures. The fascia was penetrated and opened bluntly. A two-prong skin hook was placed under this proximal fascial edge. A series of hamate finders were used to identify and dilate the carpal tunnel. Synovial elevator was used to free synovial attachments to the underside of the transverse carpal ligament. My thumb was kept in the palm to luann the distal extent of the carpal tunnel and correctly position the hand. The Microaire endoscope was inserted without difficulty and without resistance. Excellent visualization showed horizontally running fibers of the transverse carpal ligament (TCL). The distal extent of the TCL was visualized and the end of the scope palpated with the thumb. The blade was elevated and withdrawn from distal to proximal. The TCL was split into two flaps. The endoscope was reinserted to confirm complete release and any remnant ligament was incised. The scope was withdrawn and the proximal aspect of the carpal tunnel was grossly inspected and appeared release with the median nerve visible. The antebrachial fascia at the level of the wrist was then freed from the overlying skin and then the underlying median nerve with blunt dissection. This was transected longitudinally for about 3cm proximal to the wrist incision. The wound was then irrigated with easy flow of irrigant distally and proximally. The incision was closed with a single 4-0 Nylon suture. . Attention was then turned to the cubital tunnel release. The skin of the medial elbow was incised only with the elbow in some flexion and on a bump. The deep tissue and subcutaneous fat was dissected with a tenotomy scissors trying to protect any branches of the medial antebrachial cutaneous nerve. Any branches that were identified were retracted out of the way. The ulnar nerve was palpated and identified. A small window into the cubital tunnel, sheath overlying the nerve, was created and the nerve was able to be palpated with the Shirley. It was evident at this time that the ulnar nerve was sitting on top of the medial epicondyle. A Metzenbaum scissor was then used to open up the sheath starting with Benavides's ligament. I then worked distal over the ulnar nerve releasing any constraints against the nerve all the way to the fascia of the FCU muscle belly. This muscle belly was bluntly all the way down to the first motor branch of the ulnar nerve and the overlying fascia was incised. Likewise starting there at the medial epicondyle, I proceeded to work proximally to release any constraints over the ulnar nerve. This was taken all the way to the arcade of [place]. The medial intermuscular septum was also palpated and any sharp edges against the ulnar nerve were resected and released. After fully releasing the nerve it was inspected visually. I was also able to palpate the nerve fully and reach one finger up into the proximal and distal aspects to make sure there were no constraints against the nerve. A freer elevator was also used to slide easily against the ulnar nerve without any points of constriction. The arm was then taken through range of motion. The ulnar nerve did sublux/dislocate out of its groove behind the lateral epicondyle. Therefore an anterior subcutaneous transposition was performed. A vessel loop was placed around the nerve and deep attachments to the nerve released such as easy to keep the nerve anteriorly without any other points of compression. I then raised a fascial flap from the flexor pronator origin off of the medial epicondyle. This was then attached to the dermis overlying the medial epicondyle. It was secured in the nerve was able to maintain his anterior position. A Shirley was utilized to check to make sure there is no adhesions tethering the nerve. The tourniquet was then deflated. Any areas of bleeding were cauterized with bipolar electrocautery. The wound was thoroughly irrigated. The deep tissue was closed with a 3-0 Vicryl. The skin was closed with a 4-0 nylon. The wounds were dressed with Xeroform, 4 x 4's, ABD, Kerlix and an Jerman wrap. Mansoor was placed into a sling. He was transferred back to the PACU in a stable condition.
== END 2021-09-03 15:08 | disposition home or self-care (01) ==
PROVIDERS: PCP Family Medicine; Visit Provider Student in an Organized Health Care Education/Training Program
PROC: 01N54ZZ Release Median Nerve, Percutaneous Endoscopic Approach (ICD-10-PCS; CPT 29848; principal; 2021-09-03 12:00)
PROC: (CPT 64718; 2021-09-03 12:00)
DX: G56.02 Carpal tunnel syndrome, left upper limb (principal); G56.23 Lesion of ulnar nerve, bilateral upper limbs; E11.9 Type 2 diabetes mellitus without complications; G47.33 Obstructive sleep apnea (adult) (pediatric); E78.2 Mixed hyperlipidemia; I10 Essential (primary) hypertension
CPT/HCPCS: 64718; 29848; J0690; J1100; J1790; J1885; J2405; J3010

== ENCOUNTER → 2021-09-13 07:41 | Outpatient (BNVA) | payer MEDICARE, MEDICAID, SELFPAY | PROVIDERS: PCP Family Medicine; Referring Provider Family Medicine; Visit Provider Physician Assistant | DX: G56.02 Carpal tunnel syndrome, left upper limb (principal); G56.23 Lesion of ulnar nerve, bilateral upper limbs ==

== ENCOUNTER → 2021-10-11 08:00 | Outpatient (BNVA) | payer MEDICARE, MEDICAID, SELFPAY | PROVIDERS: PCP Family Medicine; Referring Provider Family Medicine; Visit Provider Student in an Organized Health Care Education/Training Program | DX: Z47.89 Encounter for other orthopedic aftercare (principal); G56.23 Lesion of ulnar nerve, bilateral upper limbs; G56.01 Carpal tunnel syndrome, right upper limb; G56.02 Carpal tunnel syndrome, left upper limb; I10 Essential (primary) hypertension ==

== ENCOUNTER 2021-12-04 09:28 | Day surgery (SDC) | payer MEDICARE, MEDICAID, SELFPAY ==
[2021-12-04] VITALS (7 sets, daily range): BP systolic 96–129; BP diastolic 36–76; PULSE 67–81; RESP 16–25; TEMP 36.1–36.6; O2SAT 94–97; BMI 36.3
--- NOTE | 2021-12-04 08:17 | HPE_ITS ---
Assessment and Plan Assessment and plan (1) Carpal tunnel syndrome of right wrist: Status: Acute (2) Cubital tunnel syndrome of both upper extremities: Status: Acute Assessment and plan: Right cubital tunnel release and right ECTR. Details of surgery were discussed with patient as well as risks and pertinent anatomy. All questions were answered. History of Present Illness History of Present Illness Chief Complaint: Right hand numbness and tingling Narrative: Mansoor is a 56-year-old male who comes in today complaining of numbness and tingling in his right hand which continues to bother him at all times. He has had both a cubital and carpal tunnel release of the left side which had a significant improvement of his symptoms. He has proven carpal tunnel and cubital tunnel of his right side with nerve conduction studies, and again continues to be bothered on a daily basis by the symptoms. At this time, Dr. Leger recommends a surgical release of the cubital tunnel as well as an ECTR of the right side to hopefully improve her symptoms. He is anxious to proceed. Review of Systems Constitutional Constitutional: Denies fever(s) ENT Ears, Nose, Mouth, and Throat: Denies dizziness and Denies sore throat Cardiovascular Cardiovascular: Denies chest pain, Denies palpitations and Denies dyspnea Respiratory Respiratory: Denies cough and Denies dyspnea Gastrointestinal Gastrointestinal: Denies abdominal pain, Denies melena, Denies hematochezia, Denies diarrhea, Denies nausea and Denies vomiting Genitourinary Genitourinary: Denies hematuria and Denies dysuria Neurologic Neurologic: Denies dizziness Endocrine Endocrine: Denies palpitations PFSH All Active Problems Abnormal stress test (Chronic) Tobacco use disorder (Chronic) Quit 2019, restarted late in the year Vitamin D deficiency (Chronic) Chronic kidney disease (CKD), stage III (moderate) (Chronic 05/26/16) ? due to DM or to hypertension Diabetes mellitus type 2 in obese (Chronic 02/19/16) presented with polyuria, elevated FS on friend's glucometer, A1c 14 at [facility] ER Essential hypertension (Chronic) goal <140/85 Gastroesophageal reflux disease without esophagitis (Chronic 12/05/11) ER 11/2014 rx PPI Microscopic hematuria (Chronic 02/27/14) CT neg; JUSTINO neg; persists 01/2015 Mixed hyperlipidemia (Chronic 02/16/01) low HDL 27; SL HIGH TG; CV RISK (12/2016): 27%: rec Statin Obesity, unspecified (Chronic 12/05/11) 1993 165#; 180 gives BMI <30 05/06/21 [facility], BMI 35.10 Obstructive sleep apnea (Chronic 03/10/16) [id number], severe in REM sleep Sleep study PSG on 03/10/16: AHI 20.1; SPO2 shailesh 82%; CPAP begun 06/08/16. with improvement in fatigue 06/29/16 restudied higher pressures needed assoc. with treatment of central sleep apnea Complex regional pain syndrome (Chronic 06/27/13) Type 2 diabetes mellitus (Chronic 12/05/11) Chest pain (Acute) Hypertrophy of tonsils (Acute) 02/21/2019 ENT, Dr Lange Dysfunction of left eustachian tube (Acute) 02/21/[address] Lange Edentulous (Acute) Chronic maxillary sinusitis (Acute) History of sinusitis (Acute) Abdominal obesity (Acute) Chest pain (Acute) Bilateral hydrocele (Acute) Abdominal pain (Acute) Lightheadedness (Acute) Hematuria (Acute) Family history of cerebral aneurysm (Chronic) Mother in Mar 2020 Right arm numbness (Acute) Functional bowel disorder (Acute) Diverticulosis (Chronic) Colonoscopy June 2019 Other constipation (Acute ~2020) [facility] Polyp of colon (Acute ~2020) [facility] Right lower quadrant pain (Acute ~2020) [facility] Sinusitis (Acute) High triglycerides (Acute) Dizziness (Acute) Dyspnea (Acute) Gout (Chronic) R 1st PIP joint Umbilical hernia (Acute) History of alcohol abuse (Acute) Burning sensation (Acute) Eructation (Acute) Carpal tunnel syndrome of left wrist (Acute) S/P ECTR: 09/03/2021 Carpal tunnel syndrome of right wrist (Acute) Cubital tunnel syndrome of both upper extremities (Acute) S/P L cubital tunnel release: 09/03/2021 Medical History Paresthesias (10/27/16) nocturnal, bilateral, R>L, Median nerve, probable CTS Sessile colonic polyp (09/26/14) @ transverse colon, sigmoid Surgical History Cardiac Cath (03/24/17) [id number] stents placed Colonoscopy - IV Sedation (09/26/14) [facility] Perri, serrated polyp, fragments of sessile serrated adenoma Cystoscopy w/ joe retrograde pyelogram (03/01/15) Extraction of cataract (12/17/16) Left Radha Manzo; Natividad 11/19/16 Family History Father , lung cancer at age 67. Essential hypertension Neoplasm Mother Diabetes Essential hypertension Sister No problems noted. Sister No problems noted. Social History Smoking/Tobacco Use Status: Current every day Tobacco Type: cigarettes Tobacco: How many years used: 41 Quit status: considering quitting Smoking risk assessment performed?: Yes Alcohol Intake: former Drug use: Never Substance use type: does not use Household members: significant other Housing: apartment Number of Children: 3 Communication Needs: None Do you need help understanding health information?: Often current occupation: Disabled Current gender identity: male What is your relationship status?: living with partner How often do you talk on the phone with friends or family?: three or more times per week How often do you get together with friends or relatives?: three or more times per week Panel score (0-1 are the most socially isolated patients): 2 What type of physical activity do you participate in: none Seatbelt use: always Drive intox or ride w/intox 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 driver: No Working smoke detector in home: No Fire extinguisher in home: No Carbon monox detector in home: No Do you feel safe at home: Yes Do you feel safe in your relationship?: Yes Meds Allergies and Home Medications Allergies Allergy/AdvReac Type Severity Reaction Status Date / Time celecoxib Allergy Intermediate Rash, Verified 12/03/21 11:07 urticaria naproxen Allergy Intermediate Itchy Welts Verified 12/03/21 11:07 Home Medications Medication Instructions Recorded Confirmed Type acetaminophen 500 mg tablet 500 mg PO Q4H PRN 10/26/17 12/04/21 History (Tylenol Extra Strength) lancets 28 gauge (FreeStyle #25 ea 08/29/19 12/03/21 History Lancets) nitroglycerin 0.4 mg sublingual 0.4 mg sublingual Q5 MIN PRN X3 09/21/19 12/04/21 Rx tablet (Nitrostat) chest pain #100 tabs albuterol sulfate 90 mcg/actuation 1 - 2 puff inhalation Q4H PRN ##1 10/20/19 12/04/21 Rx aerosol inhaler (Ventolin HFA) cholecalciferol (vitamin D3) 50 2,000 unit PO DAILY #90 tab-caps 06/28/20 12/04/21 Rx mcg (2,000 unit) tablet (Vitamin D3) docusate sodium 100 mg capsule 100 mg PO DAILY 07/06/20 12/04/21 History (Colace) polyethylene glycol 3350 17 17 g PO DAILY PRN constipation 07/06/20 12/04/21 History gram/dose oral powder (Miralax) atorvastatin 20 mg tablet 20 mg PO DAILY #90 tabs 11/09/20 12/04/21 Rx gemfibrozil 600 mg tablet (Lopid) 600 mg PO DAILY #90 tabs 11/09/20 12/04/21 Rx metformin 500 mg tablet,extended 1,000 mg PO DAILY #180 tab-caps 01/29/21 12/04/21 Rx release 24 hr aspirin 81 mg tablet,delayed 81 mg PO DAILY 90 days ##90 01/31/21 12/04/21 Rx release blood sugar diagnostic (FreeStyle #100 ea 03/14/21 12/03/21 Rx Lite Strips) semaglutide 0.25 mg or 0.5 mg (2 1 mg subcut QWEEK 03/22/21 12/04/21 History mg/1.5 mL) subcutaneous pen injector pantoprazole 40 mg tablet,delayed 40 mg PO DAILY #30 tabs 05/23/21 12/04/21 Rx release (Protonix) sucralfate 1 gram tablet (Carafate) 1 g PO HS #30 tabs 05/23/21 12/04/21 Rx acetaminophen 500 mg capsule 1,000 mg PO Q8H PRN PRN #20 caps 09/03/21 12/03/21 Rx ibuprofen 600 mg tablet 600 mg PO TID #20 tabs 09/03/21 12/04/21 Rx lisinopril 10 mg tablet 5 mg PO DAILY 10/11/21 12/04/21 History Exam Const General: cooperative and no acute distress Orientation: alert and awake [facility] Head: normocephalic and atraumatic Eyes Conjunctivae: conjunctivae normal Sclera: sclerae normal Resp Effort & Inspection: normal respiratory effort Auscultation: clear to auscultation bilaterally and wheezes lower bilaterally Cardio Rate: regular rate Rhythm: regular rhythm Heart Sounds: S1 normal, S2 normal and no murmurs
[2021-12-04] MEDS: Lactated Ringers 1,000 ML 80 ML IV (10:12)
--- NOTE | 2021-12-04 10:26 | W.ANESPRE ---
General Info Date of Service Date Performed: 12/04/21 Height: 5 ft 6 in Weight: 102.058 kg Body Mass Index (BMI): 36.3 Surgical Procedure: Operation Date: 12/04/21 11:55 Proposed Procedure Side Surgeon p Wrist ECTR Right Ambrocio Leger MD s Cubital Tunnel Release Right Ambrocio Leger MD Meds Allergies and Home Medications Allergies Allergy/AdvReac Type Severity Reaction Status Date / Time celecoxib Allergy Intermediate Rash, Verified 12/03/21 11:07 urticaria naproxen Allergy Intermediate Itchy Welts Verified 12/03/21 11:07 Home Medication Medication Instructions Recorded acetaminophen 500 mg tablet 500 mg PO Q4H PRN 10/26/17 (Tylenol Extra Strength) lancets 28 gauge (FreeStyle #25 ea 08/29/19 Lancets) nitroglycerin 0.4 mg sublingual 0.4 mg sublingual Q5 MIN PRN X3 09/21/19 tablet (Nitrostat) chest pain #100 tabs albuterol sulfate 90 mcg/actuation 1 - 2 puff inhalation Q4H PRN ##1 10/20/19 aerosol inhaler (Ventolin HFA) cholecalciferol (vitamin D3) 50 2,000 unit PO DAILY #90 tab-caps 06/28/20 mcg (2,000 unit) tablet (Vitamin D3) docusate sodium 100 mg capsule 100 mg PO DAILY 07/06/20 (Colace) polyethylene glycol 3350 17 17 g PO DAILY PRN constipation 07/06/20 gram/dose oral powder (Miralax) atorvastatin 20 mg tablet 20 mg PO DAILY #90 tabs 11/09/20 gemfibrozil 600 mg tablet (Lopid) 600 mg PO DAILY #90 tabs 11/09/20 metformin 500 mg tablet,extended 1,000 mg PO DAILY #180 tab-caps 01/29/21 release 24 hr aspirin 81 mg tablet,delayed 81 mg PO DAILY 90 days ##90 01/31/21 release blood sugar diagnostic (FreeStyle #100 ea 03/14/21 Lite Strips) semaglutide 0.25 mg or 0.5 mg (2 1 mg subcut QWEEK 03/22/21 mg/1.5 mL) subcutaneous pen injector pantoprazole 40 mg tablet,delayed 40 mg PO DAILY #30 tabs 05/23/21 release (Protonix) sucralfate 1 gram tablet (Carafate) 1 g PO HS #30 tabs 05/23/21 acetaminophen 500 mg capsule 1,000 mg PO Q8H PRN PRN #20 caps 09/03/21 ibuprofen 600 mg tablet 600 mg PO TID #20 tabs 09/03/21 lisinopril 10 mg tablet 5 mg PO DAILY 10/11/21 Current Visit Medications: Current Medications Generic Name Dose Route Start Last Admin Trade Name Kleberq PRN Reason Stop Dose Admin Ringer's Solution 1,000 mls @ 80 mls/hr 12/04/21 06:00 12/04/21 10:12 IV 01/02/22 23:59 80 mls/hr INFUSION COURTNEY Administration Cefazolin Sodium/Dextrose 2 gm in 50 mls @ 100 mls/hr 12/04/21 06:00 Ancef Duplex IVPB 01/02/22 23:59 PREOP COURTNEY IV Miscellaneous Supplies 1 each 12/04/21 06:00 Iv Access IV 01/02/22 23:59 DIRECTED COURTNEY Sodium Chloride 0 ml 12/04/21 06:00 Normal Saline Flush 10 Ml Syr IV 01/02/22 23:59 PRN PRN Sodium Chloride 0 ml 12/04/21 06:00 Normal Saline 10 Ml Vial IJ 01/02/22 23:59 DIRECTED PRN Sterile Water 0 ml 12/04/21 06:00 Water,Injection,Sterile 10 Ml Vial IJ 01/02/22 23:59 DIRECTED PRN PFSH Active Problems Active Problems: Problem Status Onset Code Abnormal stress test R94.39 Tobacco use disorder Vitamin D deficiency Chronic kidney disease (CKD), stage III (moderate) 05/26/16 N18.3 Diabetes mellitus type 2 in obese 02/19/16 E11.69, E66.9 Essential hypertension I10 Gastroesophageal reflux disease without esophagitis 12/05/11 K21.9 Microscopic hematuria 02/27/14 R31.29 Mixed hyperlipidemia 02/16/01 E78.2 Obesity, unspecified 12/05/11 E66.9 Obstructive sleep apnea 03/10/16 G47.33 Complex regional pain syndrome 06/27/13 Type 2 diabetes mellitus 12/05/11 E11.9 Chest pain R07.9 Hypertrophy of tonsils J35.1 Dysfunction of left eustachian tube H69.82 Edentulous K00.0 Chronic maxillary sinusitis J32.0 History of sinusitis Z87.09 Abdominal obesity E65 Chest pain R07.9 Bilateral hydrocele N43.3 Abdominal pain R10.9 Lightheadedness R42 Hematuria R31.9 Family history of cerebral aneurysm Z82.49 Right arm numbness R20.0 Functional bowel disorder K59.9 Diverticulosis K57.90 Other constipation ~2021 K59.09 Polyp of colon ~2021 K63.5 Right lower quadrant pain ~2021 R10.31 Sinusitis J32.9 High triglycerides E78.1 Dizziness R42 Dyspnea R06.00 Gout M10.9 Umbilical hernia K42.9 History of alcohol abuse F10.11 Burning sensation R20.8 Eructation R14.2 Carpal tunnel syndrome of left wrist G56.02 Carpal tunnel syndrome of right wrist G56.01 Cubital tunnel syndrome of both upper extremities G56.23 Medical History Medical History Paresthesias (10/27/16) nocturnal, bilateral, R>L, Median nerve, probable CTS Sessile colonic polyp (09/26/14) @ transverse colon, sigmoid Medical History Comments:: pt has CPAP HS Right lung asculatation, wheezes heard in RUL, RLL Moist productive smokers cough, white sputum Surgical History Surgical History Cardiac Cath (03/24/17) [id number] stents placed Colonoscopy - IV Sedation (09/26/14) [facility] Perri, serrated polyp, fragments of sessile serrated adenoma Cystoscopy w/ joe retrograde pyelogram (03/01/15) Extraction of cataract (12/17/16) Left Radha Manzo; R 11/19/16 Tobacco Smoking/Tobacco Use Status: Current every day Tobacco Type: cigarettes Alcohol Alcohol Intake: former Substance Use Substance use: Never Substance use type: does not use Vital Signs and Lab Results Vital Signs Most Recent Vital Signs in EMR: Most Recent Vital Signs Temp Pulse Resp BP Pulse Ox 36.5 C 76 18 122/72 97 12/04/21 09:43 12/04/21 09:43 12/04/21 09:43 12/04/21 09:43 12/04/21 09:43 Point of Care Results Point of Care Results: Finger Stick Blood Glucose 94 12/04/21 10:14 Lab Results Blood Type / Crossmatch: No Data to Display Complete Blood Count: No Data to Display Complete Metabolic Panel: No Data to Display Liver Function Panel: No Data to Display Coagulation Panel: No Data to Display Cardiac Panel: No Data to Display Arterial Blood Gas: No Data to Display Venous Blood Gas: No Data to Display Pancreas Panel: No Data to Display Thyroid Panel: No Data to Display Infectious Disease: No Data to Display Blood Cultures: No Data to Display Toxicology Panel: No Data to Display Imaging and Studies Imaging and Studies Study information below may be from another EMR and interpreted by another provider. Please see original notes in EMR for more complete details. EKG Summary: 05/06: Sinus Marcin, no acute change. Stress Test Summary: Stress ECG Conclusion 09/2019 1. This was an exercise stress test converted to pharmacological due to inability to reach target heart rate. 2. Patient no symptoms suggestive of ischemia 3. EKG portion of this exam is nondiagnostic. MPI Conclusion The patient's ejection fraction was 44% with stress. There were no wall motion abnormalities. It was no evidence of ischemia on the imaging portion of the exam. As represents a normal SPECT stress test. Echocardiogram Summary: 12/2018: LVEF 60-65%, trivial MR/TR. Cardiac Catheterization Summary: 2018: Normal coronary arteries. Carotid Artery Summary:: 2015: no hemodynamic significant stenosis. Pulmonary Function Summary: 2018: WNL, Anesthesia Assessment and Plan Anesthesia History Personal History: No History of Anesthesia Complications Family History: No Family History of Anesthesia Complications Exercise Tolerance Exercise Tolerance: Metabolic Equivalents>4 Pertinent Negatives Pertinent Negatives: No Symptoms of GERD, No Major Cardiovascular Symptoms or Complaints, No Major Pulmonary Symptoms or Complaints and No History of CVA/TIA Cardiac & Pulmonary Exam Cardiac Exam: Normal S1/S2 Heart Sounds Pulmonary Exam: Clear Bilateral Breath Sounds Implantable Cardiac Device Does patient have a Pacemaker or an ICD?: No Airway Exam Known Difficult Airway: No Mallampati Class: 4 Mouth Opening: Narrow (< 3cm) Thyromental Distance: Less than 3 cm Neck Range of Motion: Limited ROM Neck Circumference: Thick Teeth Condition: Edentulous ASA Classification ASA Score: ASA 3 Emergency Case?: No NPO Status NPO Status: NPO Clears >2 hours, Solids >8 hours Anesthesia Plan Resuscitation Status: Full Code Anesthesia Technique: General Anesthesia Airway Planned: Endotracheal Tube Monitors Used: Standard Monitors Preoperative Comments:: Severe ELIU
--- NOTE | 2021-12-04 10:59 | W.PM.DSUDISC ---
Discharge Plan Disposition Patient Disposition: HOME Condition: Good Discharge Details Reason For Visit: Right carpal and cubital tunnel syndromes Attending Provider: Ambrocio Leger Primary Care Provider: Judd Pizarro Home Meds and New Rx's Prescriptions: New acetaminophen 500 mg tablet 500 mg PO Q6H PRN (Reason: pain) Qty: 60 2RF ibuprofen 600 mg tablet 600 mg PO TID PRN (Reason: pain) Qty: 60 0RF hydrocodone-acetaminophen 5-325 mg tablet 1 tab PO Q6H PRN (Reason: severe pain) Qty: 6 0RF Rx Instructions: Take one tablet up to every 6 hours as needed for severe postoperative pain Continued (DME) lancets [FreeStyle Lancets] 28 gauge misc See Rx Instructions .ROUTE .MEDSUPPLY Qty: 25 Rx Instructions: As directed albuterol sulfate [Ventolin HFA] 90 mcg/actuation HFA aerosol inhaler 1 - 2 puff Inhalation Q4H PRN Qty: 1 6RF Label Comments: 09/03/21 pt reports he hasnt used in @ 5 months Rx Instructions: PHARMACY: PLEASE DISPENSE ALBUTEROL BRAND COVERED BY INSURANCE gemfibrozil [Lopid] 600 mg tablet 600 mg PO DAILY Qty: 90 3RF atorvastatin 20 mg tablet 20 mg PO DAILY Qty: 90 3RF pantoprazole [Protonix] 40 mg tablet,delayed release (DR/EC) 40 mg PO DAILY Qty: 30 12RF sucralfate [Carafate] 1 gram tablet 1 g PO HS Qty: 30 12RF lisinopril 10 mg tablet 5 mg PO DAILY nitroglycerin [Nitrostat] 0.4 mg tablet, sublingual 0.4 mg Sublingual Q5 MIN PRN X3 Qty: 100 1RF Label Comments: 09/03/21 pt reports he hasnt taken in @ 3 months Rx Instructions: 1 tab sublingual q5m PRN x3 chest pain cholecalciferol (vitamin D3) [Vitamin D3] 50 mcg (2,000 unit) tablet 2,000 unit PO DAILY Qty: 90 3RF docusate sodium [Colace] 100 mg capsule 100 mg PO DAILY Rx Instructions: [facility] GI polyethylene glycol 3350 [Miralax] 17 gram/dose powder 17 g PO DAILY PRN (Reason: constipation) Rx Instructions: [facility] metformin 500 mg tablet extended release 24 hr 1,000 mg PO DAILY Qty: 180 3RF Rx Instructions: for diabetes, two tabs in the morning aspirin 81 mg tablet,delayed release (DR/EC) 81 mg PO DAILY 90 Days Qty: 90 3RF (DME) FreeStyle Lite Strips Strip See Rx Instructions .ROUTE .MEDSUPPLY Qty: 100 3RF Label Comments: pt. states he checks his sugars when he thinks his sugars high Rx Instructions: Test daily to keep HbA1c less than 6.5%; Dx: E11.9 semaglutide 0.25 mg or 0.5 mg(2 mg/1.5 mL) pen injector 1 mg subcut QWEEK Rx Instructions: 09/27/20 PER [facility] STARTE 0.25 MG SB ONCE A WEEK FOR 28 DAYS, THEN 0.5 MG ONCE A WEEK. PT GOT MED 10/01/20 TIMOTHY 03/22/21-incr dose per [facility] weight/wellness-LH Discontinued acetaminophen [Tylenol Extra Strength] 500 mg tablet 500 mg PO Q4H PRN Label Comments: 09/03/21 pt repors he last took this 2 months agao ibuprofen 600 mg tablet 600 mg PO TID Qty: 20 0RF acetaminophen 500 mg capsule 1,000 mg PO Q8H PRN PRNQty: 20 0RF Discharge Instructions Additional Instructions: Cubital Tunnel Decompression Discharge Instructions Activity: You should stay in the sling for the first 2 weeks. You may come out of the sling for gentle motion and hygiene but should largely remain in the sling to allow the incision site to heal. Gentle motion of the elbow, hand, wrist, and fingers is okay and encouraged after the first few days, but no repetitive activites nor heavy lifting. You may apply ice. Medications: - You should take Tylenol and Ibuprofen around the clock. - You have been prescribed Hydrocodone for breakthrough pain. Dressings: - The initial surgical dressing should stay in place for 3 days. It may then be removed and kept clean and dry. You should cover with a light gauze dressing. - You may shower after 3 days and get the wound wet. Follow-up: 10 days Stand Alone Forms: Arsen Bearden Tunnel Release Equipment/Supplies: Sling Activity:: Elevate Remove Dressings/Wound Care:: 72 hours Shower/Bathe:: 72 hours Diet:: As Tolerated Discharge Orders Discharge Orders: Discharge Order (Routine); Ordered 12/04/21 Ordered By: Leslie Guzman DS: Diagnosis Discharge Diagnosis (1) Carpal tunnel syndrome of right wrist: Status: Acute (2) Cubital tunnel syndrome of both upper extremities: Status: Acute
[2021-12-04] MEDS: ceFAZolin 2 GM/50 ML BAG IVPB (11:45)
[2021-12-04] MEDS: Bupivacaine 0.5% Pres-Free W/EPI 30 ML VIAL (11:55)
--- NOTE | 2021-12-04 13:04 | W.ANESPOSTOP ---
Postoperative Evaluation Date, Time and Location Date Performed: 12/04/21 Time Performed: 13:04 Patient Location: Day Surgery Unit Vital Signs Most Recent Imported Vital Signs: Most Recent Vital Signs Temp Pulse Resp BP Pulse Ox 36.6 C 76 16 107/52 L 94 12/04/21 12:50 12/04/21 12:50 12/04/21 12:50 12/04/21 12:50 12/04/21 12:50 Pain Score Most Recent Pain Score: Most Recent Pain Score Pain Level 0 12/04/21 12:50 Assessment Mental Status: Awake (Alert & Oriented to Patient Baseline) Airway and Respiratory Function: Patent airway with normal (patient baseline) respiratory exam Cardiovascular Function: Hemodynamically Stable Hydration Status: Adequately Hydrated Nausea & Vomiting: No Nausea or Vomiting Pain: Pt. Denies Any Pain Peripheral Nerve Block: Patient did not receive a nerve block
--- NOTE | 2021-12-04 15:40 | ROE_ITS ---
Date of service: 12/04/21 Time of Service: 13:00 Operative Note Operative Note DATE OF PROCEDURE: 12/04/21 PRE-OP DIAGNOSIS: Right Carpal Tunnel and Right Cubital Tunnel Syndrome POST-OP DIAGNOSIS: same PROCEDURE: Right Endoscopic Carpal Tunnel Release and Right Cubital Tunnel Decompression SURGEON: Ambrocio Leger BALING PRESS OPERATOR: Leslie Guzman Refer to Anesthesia Record ESTIMATED BLOOD LOSS: 0 PATHOLOGY: none sent TOURNIQUET TIME: 15 COMPLICATIONS: None Patient was transported to: PACU Patient's condition: stable Indications: Mansoor is a 56 year old male who has had symptoms of carpal and cubital tunnel syndrome. Nonoperative treatment options had been trialed. Nerve conduction studies identified the carpal and cubital tunnel as the point of compression. Given failure of nonoperative treatments and persistent symptoms, I offered operative intervention. He had success with a left carpal tunnel and cubital tunnel release with good results. I reviewed the technical details of a carpal tunnel release and cubital tunnel decompression with possible anterior subcutaneous transposition. I reviewed the risk of the procedure to include bleeding, infection, pain, stiffness, nerve instability, damage to superficial nerves, persistent symptoms, and incomplete release. Despite these risks, the patient elected to proceed. Findings: The carpal tunnel was release with a standard endoscopic technique without difficulty and excellent visualization. There was a tightened cubital tunnel. [OTHER] The ulnar nerve was release from the first motor branch distally through the [place] of [place] proximally. Procedure Description: Mansoor was greeted in the preoperative holding area where the correct side was identified and marked. The consent was reviewed with the patient and signed. The history and physical was updated. All questions were answered. He was taken back to the operating room. The patient was placed into the supine position on the operating room table with the right arm on an arm board. A n onsterile tourniquet was placed high onto the arm, into the axilla. All bony prominences were well padded. Prophylactic antibiotics in the form of Cefazolin were administered. The right arm was then prepped with Chloraprep and draped in a standard fashion with stockinette and extremity drape. A timeout to confirm correct identity, side and site, procedure, allergies, anesthesia, and medical concerns was performed. The surgical site was marked in the volar wrist creases in line with the radial border of the fourth ray. This area was anesthetized with approximately 6cc of 1% Lidocaine with Epinephrine. The surgical site about the medial elbow was drawn on the skin just posterior to the medial epicondyle borders. The planned surgical field was anesthetized with 1% Lidocaine with Epinephrine. The limb was then exsanguinated with an Esmarch. Starting with the carpal tunnel, the skin was incised with a 15 blade, approximately 1cm. The skin only was cut and the deeper tissue was dissected bluntly with a tenotomy scissor, avoiding passing nerve and venous structures. The fascia was penetrated and opened bluntly. A two-prong skin hook was placed under this proximal fascial edge. A series of hamate finders were used to identify and dilate the carpal tunnel. Synovial elevator was used to free synovial attachments to the underside of the transverse carpal ligament. My th umb was kept in the palm to luann the distal extent of the carpal tunnel and correctly position the hand. The Microaire endoscope was inserted without difficulty and without resistance. Excellent visualization showed horizontally running fibers of the transverse carpal ligament (TCL). The distal extent of the TCL was visualized and the end of the scope palpated with the thumb. The blade was elevated and withdrawn from distal to proximal. The TCL was split into two flaps. The endoscope was reinserted to confirm complete release and any remnant ligament was incised. The scope was withdrawn and the proximal aspect of the carpal tunnel was grossly inspected and appeared release with the median nerve visible. The antebrachial fascia at the level of the wrist was then freed from the overlying skin and then the underlying median nerve with blunt dissection. This was transected longitudinally for about 3cm proximal to the wrist incision. The wound was then irrigated with easy flow of irrigant distally and proximally. The incision was closed with a single 4-0 Nylon suture. . Attention was then turned to the cubital tunnel release. The skin of the medial elbow was incised only with the elbow in some flexion and on a bump. The deep tissue and subcutaneous fat was dissected with a tenotomy scissors trying to protect any branches of the medial antebrachial cutaneous nerve. Any branches that were identified were retracted out of the way. The ulnar nerve was palpated and identified. A small window into the cubital tunnel, sheath overlying the nerve, was created and the nerve was able to be palpated with the [place]. A Metzenbaum scissor was then used to open up the sheath starting with Benavides's ligament. I then worked distal over the ulnar nerve releasing any constraints against the nerve all the way to the fascia of the FCU muscle belly. This muscle belly was bluntly all the way down to the first motor branch of the ulnar nerve and the overlying fascia was incised. Likewise starting there at the medial epicondyle, I proceeded to work proximally to release any constraints over the ulnar nerve. This was taken all the way to the arcade of [place]. The medial intermuscular septum was also palpated and any sharp edges against the ulnar nerve were resected and released. After fully releasing the nerve it was inspected visually. I was also able to palpate the nerve fully and reach one finger up into the proximal and distal aspects to make sure there were no constraints against the nerve. A freer elevator was also used to slide easily against the ulnar nerve without any points of constriction. The arm was then taken through range of motion. The ulnar nerve did not sublux/dislocate out of its groove behind the lateral epicondyle. Therefore, no transposition was performed. The tourniquet was then deflated. Any areas of bleeding were cauterized with bipolar electrocautery. The wound was thoroughly irrigated. The deep tissue was closed with a 3-0 Vicryl. The skin was closed with a 4-0 nylon. The wounds were dressed with Xeroform, 4 x 4's, ABD, Kerlix and an Jerman wrap. Mansoor was placed into a sling. He was transferred back to the PACU in a stable condition.
== END 2021-12-04 14:19 | disposition home or self-care (01) ==
PROVIDERS: PCP Family Medicine; Visit Provider Student in an Organized Health Care Education/Training Program
PROC: 01N54ZZ Release Median Nerve, Percutaneous Endoscopic Approach (ICD-10-PCS; CPT 29848; principal; 2021-12-04 11:45)
PROC: (CPT 64718; 2021-12-04 11:45)
DX: G56.01 Carpal tunnel syndrome, right upper limb (principal); G56.21 Lesion of ulnar nerve, right upper limb; E11.22 Type 2 diabetes mellitus with diabetic chronic kidney disease; N18.30 Chronic kidney disease, stage 3 unspecified
CPT/HCPCS: 64718; 29848; J0690; J1100; J2405; J2704; L3650

== ENCOUNTER → 2021-12-13 09:35 | Outpatient (BNVA) | payer MEDICARE, MEDICAID, SELFPAY | PROVIDERS: PCP Family Medicine; Referring Provider Family Medicine; Visit Provider Student in an Organized Health Care Education/Training Program | DX: G56.01 Carpal tunnel syndrome, right upper limb (principal); G56.23 Lesion of ulnar nerve, bilateral upper limbs ==

== ENCOUNTER → 2022-01-13 12:52 | Outpatient (BNVA) | payer MEDICARE, MEDICAID, SELFPAY | PROVIDERS: PCP Family Medicine; Referring Provider Family Medicine; Visit Provider Student in an Organized Health Care Education/Training Program | DX: Z47.89 Encounter for other orthopedic aftercare (principal); G56.01 Carpal tunnel syndrome, right upper limb; G56.23 Lesion of ulnar nerve, bilateral upper limbs ==

== ENCOUNTER 2022-01-23 12:06 | Emergency (ER) | payer MEDICARE, MEDICAID, SELFPAY ==
[2022-01-23 12:09] VITALS: BP 129/45; PULSE 95; RESP 16; TEMP 36.9; O2SAT 99
--- NOTE | 2022-01-23 13:15 | DI.CT_ITS ---
Exam(s) CT CERVICAL SPINE WO EXAM: CT CERVICAL SPINE WO CLINICAL HISTORY: midline neck pain. TECHNIQUE: Imaging Protocol: Axial computed tomography images with coronal and sagittal reformatted images were created and reviewed COMPARISON: CT CT HEAD CERVICAL SPINE WO from 04/27/2018 FINDINGS: Bones: No fracture or dislocations are seen. The alignment of the cervical spine is normal including the craniocervical junction and cervicothoracic junction. No significant central spinal canal or neur al foraminal stenosis is seen in the cervical spine. C2-3: Normal. C3-4: There is prominence of the left uncovertebral joint. C4-5: Normal. C5-6: There is prominence of the osteophyte disc complex at C5-C6. C6-7: There is prominence of the osteophyte disc complex at C6-C7. C7-T1: Normal. Soft Tissues: The soft tissues of the neck are unremarkable. The thyroid gland is grossly unremarkabl e. The lung apices are clear. IMPRESSION: 1. Nogy-xo-akxehntd degenerative changes in the cervical spine. No significant central spinal canal or neural foraminal stenosis is present. 2. No acute fracture or subluxation in the cervical spine. 3. Findings were discussed with the emergency department at 2:41 p.m. on 01/23/2022. RADIATION DOSE DELIVERED: 603.33mGy.cm Total DLP 603.33mGy.cm Total DLP 603.33mGy.cm Total DLP DATA REPOSITORY: All CT scans at this facility are submitted to the National Radiology Data Registry (NRDR) Dose Index Registry (DIR) with the [employer] (ACR). RADIATION OPTIMIZATION: All CT scans at this facility use at least one of these dose optimization te chniques: automated exposure control; mA and/or kV adjustment per patient size (includes targeted exa ms where dose is matched to clinical indication); or iterative reconstruction.
--- NOTE | 2022-01-23 13:20 | ED.GENADUL_ITS ---
Discharge Plan Disposition Patient Disposition: Home Condition: Stable Discharge Details Clinical Impression: Neck pain, Muscle spasm Primary Care Provider: Judd Pizarro ED Provider: Danis Crawford Home Meds and New Rx's Prescriptions: New cyclobenzaprine 10 mg tablet 10 mg PO TID PRNQty: 20 0RF Continued (DME) lancets [FreeStyle Lancets] 28 gauge misc See Rx Instructions .ROUTE .MEDSUPPLY Qty: 25 Rx Instructions: As directed albuterol sulfate [Ventolin HFA] 90 mcg/actuation HFA aerosol inhaler 1 - 2 puff Inhalation Q4H PRN Qty: 1 6RF Label Comments: 09/03/21 pt reports he hasnt used in @ 5 months Rx Instructions: PHARMACY: PLEASE DISPENSE ALBUTEROL BRAND COVERED BY INSURANCE gemfibrozil [Lopid] 600 mg tablet 600 mg PO DAILY Qty: 90 3RF atorvastatin 20 mg tablet 20 mg PO DAILY Qty: 90 3RF pantoprazole [Protonix] 40 mg tablet,delayed release (DR/EC) 40 mg PO DAILY Qty: 30 12RF sucralfate [Carafate] 1 gram tablet 1 g PO HS Qty: 30 12RF lisinopril 10 mg tablet 5 mg PO DAILY nitroglycerin [Nitrostat] 0.4 mg tablet, sublingual 0.4 mg Sublingual Q5 MIN PRN X3 Qty: 100 1RF Label Comments: 09/03/21 pt reports he hasnt taken in @ 3 months Rx Instructions: 1 tab sublingual q5m PRN x3 chest pain cholecalciferol (vitamin D3) [Vitamin D3] 50 mcg (2,000 unit) tablet 2,000 unit PO DAILY Qty: 90 3RF docusate sodium [Colace] 100 mg capsule 100 mg PO DAILY Rx Instructions: [facility] GI polyethylene glycol 3350 [Miralax] 17 gram/dose powder 17 g PO DAILY PRN (Reason: constipation) Rx Instructions: [facility] GI metformin 500 mg tablet extended release 24 hr 1,000 mg PO DAILY Qty: 180 3RF Rx Instructions: for diabetes, two tabs in the morning aspirin 81 mg tablet,delayed release (DR/EC) 81 mg PO DAILY 90 Days Qty: 90 3RF (DME) FreeStyle Lite Strips Strip See Rx Instructions .ROUTE .MEDSUPPLY Qty: 100 3RF Label Comments: pt. states he checks his sugars when he thinks his sugars high Rx Instructions: Test daily to keep HbA1c less than 6.5%; Dx: E11.9 semaglutide 0.25 mg or 0.5 mg(2 mg/1.5 mL) pen injector 1 mg subcut QWEEK Rx Instructions: 09/27/20 PER [facility] STARTE 0.25 MG SB ONCE A WEEK FOR 28 DAYS, THEN 0.5 MG ONCE A WEEK. PT GOT MED 10/01/20 TIMOTHY 03/22/21-incr dose per [facility] weight/wellness-LH acetaminophen 500 mg tablet 500 mg PO Q6H PRN (Reason: pain) Qty: 60 2RF ibuprofen 600 mg tablet 600 mg PO TID PRN (Reason: pain) Qty: 60 0RF Discharge Instructions Instructions: Muscle Spasm (ED), Neck Pain (ED) Additional Instructions: your cat scan did not show concerning findings at this time if pain continues in a week follow up with your primary care provider if you feel more ill, have severe worsening pain or fevers return to the emergency department Medical Decision Making 56 yo male with hx of ckd, t2dm, gerd, hld, complex regional pain syndrome, who comes in with cc of neck pain. He denies any falls or trauma, he states he sits most of the time in his recliner and the pain started 2 days ago. Denies fevers, chills, headache, n/v, vision changes. He localizes the pain to the mid posterior midline neck. He has no visible or palpable deformities. He has no lateral neck tenderness, normal pulses of his carotids, no bruits. CN II-XII intact, no motor or sensation deficits. He has limited rom of his neck due to pain. Given the location of the pain will obtain ct though fracture unlikely. He has no findings on history or physical to suggest payable representative infection and unlikely dissection given lack of abnormalitis on vascular exam and no deficits on cranial nerve exam. pt states pain resolved and has full rom of the neck with no pain. CT shows no acute findings, has degenerative findings. Given resolution of pain with one dose of flexeril suspect muscle spasm, do not feel further testing indicated. Advised to f/u with pcp, return precautions given Differential Diagnosis Differential Diagnosis: muscle spasm, cervical strain, fracture Medical Records Medical records reviewed: Yes I reviewed the patient's medical records. Imaging Data Radiologic Study: Attestation: I personally reviewed and interpreted this imaging study as follows: Imaging: CT Scan Radiologist's impression: IMPRESSION: 1. Gvco-aq-iyenmuua degenerative changes in the cervical spine.? No significant central spinal canal or neural foraminal stenosis is present. 2. No acute fracture or subluxation in the cervical spine. 3. Findings were discussed with the emergency department at 2:41 p.m. on 01/23/2022. Sign Out No HPI General Mode of arrival: ambulatory . Date/Time Provider Initiated Documentation: 01/23/22 12:06 . Limitations to Documentation: no limitations . Information obtained by: patient . History of Present Illness 56 year old M presents to the emergency department with the chief complaint of neck pain, described as moderate, Quality is described as aching, and is localized to the neck. Patient reports no radiation. Patient started experiencing this day(s) (2) and it has been constant. No relieving factors improve symptom(s), No exacerbating factors reported . Patient notes no other s ymptoms.. Patient did receive the following treatments prior to arrival, none Related Data Home Medications Medication Instructions Recorded Confirmed lancets 28 gauge (FreeStyle #25 ea 08/29/19 01/23/22 Lancets) nitroglycerin 0.4 mg sublingual 0.4 mg sublingual Q5 MIN PRN X3 09/21/19 01/23/22 tablet (Nitrostat) chest pain #100 tabs albuterol sulfate 90 mcg/actuation 1 - 2 puff inhalation Q4H PRN ##1 10/20/19 01/23/22 aerosol inhaler (Ventolin HFA) cholecalciferol (vitamin D3) 50 2,000 unit PO DAILY #90 tab-caps 06/28/20 01/23/22 mcg (2,000 unit) tablet (Vitamin D3) docusate sodium 100 mg capsule 100 mg PO DAILY 07/06/20 01/23/22 (Colace) polyethylene glycol 3350 17 17 g PO DAILY PRN constipation 07/06/20 01/23/22 gram/dose oral powder (Miralax) atorvastatin 20 mg tablet 20 mg PO DAILY #90 tabs 11/09/20 01/23/22 gemfibrozil 600 mg tablet (Lopid) 600 mg PO DAILY #90 tabs 11/09/20 01/23/22 metformin 500 mg tablet,extended 1,000 mg PO DAILY #180 tab-caps 01/29/21 01/23/22 release 24 hr aspirin 81 mg tablet,delayed 81 mg PO DAILY 90 days ##90 01/31/21 01/23/22 release blood sugar diagnostic (FreeStyle #100 ea 03/14/21 01/23/22 Lite Strips) semaglutide 0.25 mg or 0.5 mg (2 1 mg subcut QWEEK 03/22/21 01/23/22 mg/1.5 mL) subcutaneous pen injector pantoprazole 40 mg tablet,delayed 40 mg PO DAILY #30 tabs 05/23/21 01/23/22 release (Protonix) sucralfate 1 gram tablet (Carafate) 1 g PO HS #30 tabs 05/23/21 01/23/22 lisinopril 10 mg tablet 5 mg PO DAILY 10/11/21 01/23/22 acetaminophen 500 mg tablet 500 mg PO Q6H PRN pain #60 tabs 12/04/21 01/23/22 ibuprofen 600 mg tablet 600 mg PO TID PRN pain #60 tabs 12/04/21 01/23/22 cyclobenzaprine 10 mg tablet 10 mg PO TID PRN #20 tabs 01/23/22 Previous Rx's Medication Instructions Recorded nitroglycerin 0.4 mg sublingual 0.4 mg sublingual Q5 MIN PRN X3 09/21/19 tablet (Nitrostat) chest pain #100 tabs albuterol sulfate 90 mcg/actuation 1 - 2 puff inhalation Q4H PRN ##1 10/20/19 aerosol inhaler (Ventolin HFA) cholecalciferol (vitamin D3) 50 2,000 unit PO DAILY #90 tab-caps 06/28/20 mcg (2,000 unit) tablet (Vitamin D3) atorvastatin 20 mg tablet 20 mg PO DAILY #90 tabs 11/09/20 gemfibrozil 600 mg tablet (Lopid) 600 mg PO DAILY #90 tabs 11/09/20 metformin 500 mg tablet,extended 1,000 mg PO DAILY #180 tab-caps 01/29/21 release 24 hr aspirin 81 mg tablet,delayed 81 mg PO DAILY 90 days ##90 01/31/21 release blood sugar diagnostic (FreeStyle #100 ea 03/14/21 Lite Strips) pantoprazole 40 mg tablet,delayed 40 mg PO DAILY #30 tabs 05/23/21 release (Protonix) sucralfate 1 gram tablet (Carafate) 1 g PO HS #30 tabs 05/23/21 acetaminophen 500 mg tablet 500 mg PO Q6H PRN pain #60 tabs 12/04/21 ibuprofen 600 mg tablet 600 mg PO TID PRN pain #60 tabs 12/04/21 cyclobenzaprine 10 mg tablet 10 mg PO TID PRN #20 tabs 01/23/22 Allergies Allergy/AdvReac Type Severity Reaction Status Date / Time celecoxib Allergy Intermediate Rash, Verified 01/23/22 12:15 urticaria naproxen Allergy Intermediate Itchy Welts Verified 01/23/22 12:15 General Stated Complaint: Nk/Back Pain JAMES: 4 Review of Systems All systems reviewed & are unremarkable except as noted in HPI and below Constitutional Constitutional: Denies chills, Denies fever(s) and Denies weakness Cardiovascular Cardiovascular: Denies chest pain and Denies dyspnea Respiratory Respiratory: Denies cough and Denies dyspnea Gastrointestinal Gastrointestinal: Denies abdominal pain, Denies nausea and Denies vomiting Musculoskeletal Musculoskeletal: Denies joint swelling Integumentary/Breasts Skin/Breast: Denies rash Neurologic Neurologic: Denies weakness PFSH All Active Problems (Updated 01/23/22 @ 14:52 by Danis Crawford MD) Neck pain (Acute) Muscle spasm (Acute) Abnormal stress test (Chronic) Tobacco use disorder (Chronic) Quit 2019, restarted late in the year Vitamin D deficiency (Chronic) Chronic kidney disease (CKD), stage III (moderate) (Chronic 05/26/16) ? due to DM or to hypertension Diabetes mellitus type 2 in obese (Chronic 02/19/16) presented with polyuria, elevated FS on friend's glucometer, A1c 14 at [facility] Essential hypertension (Chronic) goal <140/85 Gastroesophageal reflux disease without esophagitis (Chronic 12/05/11) ER 11/2014 rx PPI Microscopic hematuria (Chronic 02/27/14) CT neg; JUSTINO neg; persists 01/2015 Mixed hyperlipidemia (Chronic 02/16/01) low HDL 27; SL HIGH TG; CV RISK (12/2016): 27%: rec Statin Obesity, unspecified (Chronic 12/05/11) 1993 165#; 180 gives BMI <30 05/06/21 [facility], BMI 35.10 Obstructive sleep apnea (Chronic 03/10/16) [id number], severe in REM sleep Sleep study PSG on 03/10/16: AHI 20.1; SPO2 shailesh 82%; CPAP begun 06/08/16. with improvement in fatigue 06/29/16 restudied higher pressures needed assoc. with treatment of central sleep apnea Complex regional pain syndrome (Chronic 06/27/13) Type 2 diabetes mellitus (Chronic 12/05/11) Chest pain (Acute) Hypertrophy of tonsils (Acute) 02/21/2019 ENT, Dr Lange Dysfunction of left eustachian tube (Acute) 02/21/[address] Lnage Edentulous (Acute) Chronic maxillary sinusitis (Acute) History of sinusitis (Acute) Abdominal obesity (Acute) Chest pain (Acute) Bilateral hydrocele (Acute) Abdominal pain (Acute) Lightheadedness (Acute) Hematuria (Acute) Family history of cerebral aneurysm (Chronic) Mother in Mar 2020 Right arm numbness (Acute) Functional bowel disorder (Acute) Diverticulosis (Chronic) Colonoscopy June 2019 Other constipation (Acute ~2020) [facility] Polyp of colon (Acute ~2020) [facility] Right lower quadrant pain (Acute ~2020) [facility] Sinusitis (Acute) High triglycerides (Acute) Dizziness (Acute) Dyspnea (Acute) Gout (Chronic) R 1st PIP joint Umbilical hernia (Acute) History of alcohol abuse (Acute) Burning sensation (Acute) Eructation (Acute) Medical History (Updated 01/23/22 @ 14:52 by Danis Crawford MD) Paresthesias (10/27/16) nocturnal, bilateral, R>L, Median nerve, probable CTS Sessile colonic polyp (09/26/14) @ transverse colon, sigmoid Surgical History (Updated 01/13/22 @ 13:31 by JAMES Nieto) Cardiac Cath (03/24/17) [id number] stents placed Carpal tunnel syndrome of left wrist S/P ECTR: 09/03/2021 Carpal tunnel syndrome of right wrist S/P ECTR: 12/04/2021 Colonoscopy - IV Sedation (09/26/14) [facility] Perri, serrated polyp, fragments of sessile serrated adenoma Cubital tunnel syndrome of both upper extremities S/P L cubital tunnel release: 09/03/2021 S/P R cubital tunnel release: 12/04/2021 Cystoscopy w/ oje retrograde pyelogram (03/01/15) Extraction of cataract (12/17/16) Left Radha Manzo; R 11/19/16 Family History Father , lung cancer at age 67. Essential hypertension Neoplasm Mother Diabetes Essential hypertension Sister No problems noted. Sister No problems noted. Social History Smoking/Tobacco Use Status: Current every day Tobacco Type: cigarettes Tobacco: How many years used: 41 Quit status: considering quitting Smoking risk assessment performed?: Yes Alcohol Intake: former Drug use: Never Substance use type: does not use Household members: significant other Housing: apartment Number of Children: 3 Communication Needs: None Do you need help understanding health information?: Often current occupation: Disabled Current gender identity: male What is your relationship status?: living with partner How often do you talk on the phone with friends or family?: three or more times per week How often do you get together with friends or relatives?: three or more times per week Panel score (0-1 are the most socially isolated patients): 2 What type of physical activity do you participate in: none Seatbelt use: always Drive intox or ride w/intox class a regional drivers: No Working smoke detector in home: No Fire extinguisher in home: No Carbon monox detector in home: No Do you feel safe at home: Yes Do you feel safe in your relationship?: Yes Exam Const General: no acute distress Orientation: alert HENMT Head: normal to inspection Ears: external ears normal General nose exam: external nose normal Mouth: moist mucous membranes Eyes General: appearance normal, both eyes and all related structures Neck Neck: normal visual inspection, trachea midline, supple and no JVD Carotids: no bruits Resp Effort & Inspection: normal respiratory effort and able to speak in complete sentences Cardio Rate: regular rate Skin General skin exam: no rashes or lesions noted Neuro General: patient alert and patient oriented x3 Extrem General: normal to inspection Psych Mental Status: mental status grossly normal Course Vital Signs Vital signs: Vital Signs Temperature 36.9 C 01/23/22 12:09 Pulse 95 H 01/23/22 12:09 Respiratory Rate 16 01/23/22 12:09 Blood Pressure 129/45 L 01/23/22 12:09 Pulse Oximetry 99 01/23/22 12:09 Temperature 36.9 C 01/23/22 12:09 Temperature Source Temporal Artery Scan 01/23/22 12:09 Pulse 95 H 01/23/22 12:09 Respiratory Rate 16 01/23/22 12:09 Respiratory Effort Non-Labored 01/23/22 12:13 Blood Pressure 129/45 L 01/23/22 12:09 Blood Pressure Position Sitting 01/23/22 12:09 Pulse Oximetry 99 01/23/22 12:09 Oxygen Delivery Method Room Air 01/23/22 12:09 Oxygen Flow Rate 0 01/23/22 12:09 Pain Level 10 01/23/22 12:13
[2022-01-23] MEDS: Cyclobenzaprine 10 MG TAB PO (13:24)
== END 2022-01-23 14:57 | disposition home or self-care (01) ==
PROVIDERS: Emergency Provider Emergency Medicine; PCP Family Medicine
DX: M54.2 Cervicalgia (principal); M62.838 Other muscle spasm; E11.22 Type 2 diabetes mellitus with diabetic chronic kidney disease; N18.9 Chronic kidney disease, unspecified; Z79.84 Long term (current) use of oral hypoglycemic drugs; Z79.82 Long term (current) use of aspirin
CPT/HCPCS: 99284; 72125

== ENCOUNTER 2022-03-07 17:59 | Outpatient (REF) | payer MEDICARE, MEDICAID, SELFPAY ==
[2022-03-07 18:49] LABS: Bilirubin Negative (Negative); Blood Small (Negative); Clarity Clear (Clear); Glucose Negative (Negative); Ketones Negative (Negative); Leukocyte Esterase Negative (Negative); Nitrite Negative (Negative); Specific Gravity 1.025 (1.005-1.025); Urobilinogen 0.2 EU/dL (Up TO 0.2); pH 5.5 (5-8)
[2022-03-07 19:00] LABS: Bacteria Negative HPF (Negative); C & S Indicated? No; Casts Negative LPF (Negative); Crystals Negative HPF (Negative); Epithelial Cells Rare HPF (Negative); Mucus Negative (Negative); WBC 0-2 HPF (0-5)
== END 2022-03-07 18:00 | disposition home or self-care (01) ==
LOC: NCHCN 17:59
PROVIDERS: PCP Family Medicine; Visit Provider Family Medicine
DX: R31.9 Hematuria, unspecified (principal)
CPT/HCPCS: 81003; 81015

== ENCOUNTER 2022-03-11 19:38 | Outpatient (REF) | payer MEDICARE, MEDICAID, SELFPAY ==
[2022-03-11 17:47] LABS: Abs Immature Grans 0.16 10^3/uL (0.0-0.06); Absolute Basophil Count 0.08 10^3/uL (0.0-0.2); Absolute Eosinophil Count 0.21 10^3/uL (0.0-0.7); Absolute Lymphocyte Count 2.61 10^3/uL (1.2-3.4); Absolute Monocyte Count 0.93 10^3/uL (0.1-0.8); Absolute Neutrophil Count 4.87 10^3/uL (1.2-6.7); Basophils % 0.9; Eosinophils % 2.4; HCT 47.1 % (40.0-50.0); HGB 16.1 g/dL (13.5-17.5); Immature Grans % 1.8; Lymphocytes % 29.5; MCH 30.7 pg (27.0-33.0); MCHC 34.2 % (32.0-36.0); MCV 90 fL (80-95); MPV 11.9 fL (8.0-11.0); Monocytes % 10.5; Neutrophils % 54.9; Platelet Count 195 10^3/uL (130-400); RBC 5.24 10^6/uL (4.36-5.78); RDW 12.7 % (11.8-14.1); RDW-SD 42.4 fL; WBC 8.86 10^3/uL (4.4-10.8)
[2022-03-11 18:35] LABS: ALT 51 U/L (16-63); AST 40 U/L (15-37); Albumin 3.7 g/dL (3.4-5.0); Alkaline Phosphatase 97 U/L (46-116); Anion Gap 9.6 mmol/L (3-11); BUN 12 mg/dL (7-18); Bilirubin, Total 0.4 mg/dL (0.2-1.0); CO2 23.4 mmol/L (21.0-32.0); CREATININE 1.3 mg/dL (0.70-1.30); Calcium 9.1 mg/dL (8.5-10.1); Chloride 103 mmol/L (98-107); Estimated GFR 63.68 (mL/min/1.73m2); Glucose 135 mg/dL (74-106); Potassium 4.3 mmol/L (3.5-5.1); Sodium 136 mmol/L (136-145); Total Protein 6.9 g/dL (6.4-8.2)
== END 2022-03-11 19:39 | disposition home or self-care (01) ==
LOC: NCHCN 19:38
PROVIDERS: PCP Family Medicine; Visit Provider Family Medicine
DX: R14.0 Abdominal distension (gaseous) (principal); K27.9 Peptic ulcer, site unspecified, unspecified as acute or chronic, without hemorrhage or perforation; R31.9 Hematuria, unspecified; E11.9 Type 2 diabetes mellitus without complications; I10 Essential (primary) hypertension
CPT/HCPCS: 80053; 85025

== ENCOUNTER 2022-04-18 00:32 | Outpatient (CLI) | payer MEDICARE, MEDICAID, SELFPAY ==
--- NOTE | 2022-04-18 | DI.CT_ITS ---
Exam(s) CT ABDOMEN PELVIS WO/W EXAM: CT ABDOMEN PELVIS WO/W CLINICAL HISTORY: HEAMTURIA,R31.9,ABD BLOATING,FULLNESS ON LT. TECHNIQUE: Imaging Protocol: Axial computed tomography images with coronal and sagittal reformatted images were created and reviewed CONTRAST MATERIAL: Intravenous: Omnipaque-350 100cc Oral: None COMPARISON: CT CT ABDOMEN PELVIS CTA from 04/22/2020 FINDINGS: VISUALIZED LUNG BASES: No nodules nor pleural effusions evident. ABDOMEN: There is no ascites. LIVER: Hepatic steatosis again noted. No obvious discrete focal hepatic lesions identified. No dila vinayak intrahepatic ducts. GALLBLADDER/BILIARY: No obvious gallbladder pathology. CBD is not dilated. PANCREAS: No evidence of pancreatic mass nor dilatation of the pancreatic duct. SPLEEN: Spleen is not enlarged. No obvious intrasplenic lesions. Splenic and portal veins are paten t. ADRENALS: There are no significant adrenal masses. KIDNEYS: Both kidneys exhibit normal size. There are 2 benign exophytic cyst off the posterior godwin x of the right kidney and a smaller cyst and tear early. The largest of these benign cysts in the ri ght kidney measures 2.5 x 2.3 cm. Smaller cyst in the opposite-left kidney, largest of these measuri ng 1 cm. There are no solid renal masses. No calculi. No hydronephrosis nor hydroureter. There ar e no consistent filling defects in the renal pelves. There is a solitary nondilated ureter on each s max with no significant filling defects. URINARY BLADDER: Not distended. No obvious masses nor diverticuli. Mild mural trabeculation. Prost ate size upper normal. Seminal vesicles unremarkable. ABDOMINAL AORTA: Moderate atherosclerotic involvement. No true aneurysm. LYMPH NODES:There is no retroperitoneal nor paraaortic adenopathy. ABDOMINAL WALL: No evidence of significant anterior abdominal wall nor inguinal hernia. GI: There is no evidence of bowel obstruction, free air, nor abscess. PELVIS: GI: No evidence of appendicitis.Sigmoid diverticulosis but no obvious acute diverticulitis. LYMPH NODES: There is no intrapelvic nor inguinal adenopathy. REPRODUCTIVE: Prostate gland not enlarged. Seminal vesicles unremarkable. URINARY BLADDER: As above. OSSEOUS: No fractures and no significant osseous lesions. IMPRESSION: 1. No evidence of solid renal mass nor renal calculi. No hydronephrosis. Benign renal cysts as desc ribed above, these being similar to prior CT scan of April 2020 and not requiring further follow-up. 2. Solitary nondilated unremarkable appearing ureter on each side. 3. Mild bladder wall trabeculation. No diverticuli. No obvious mass nor calculi in the nondilated u rinary bladder. Prostate size upper normal. 4. Sigmoid diverticulosis but no evidence of acute diverticulitis. Appendix unremarkable. Hepatic steatosis again noted. No discrete focal hepatic lesions. No splenomegaly. No ascites. RADIATION DOSE DELIVERED: 3,184.21mGy.cm Total DLP DATA REPOSITORY: All CT scans at this facility are submitted to the National Radiology Data Registry (NRDR) Dose Index Registry (DIR) with the [employer] ([employer]). RADIATION OPTIMIZATION: All CT scans at this facility use at least one of these dose optimization te chniques: automated exposure control; mA and/or kV adjustment per patient size (includes targeted exa ms where dose is matched to clinical indication); or iterative reconstruction.
[2022-04-18] MEDS: Omnipaque 350 MG/ML 100 ML BTL IJ (08:13)
[2022-04-18] MEDS: Normal Saline - Diluent 50 ML VIAL IJ (08:16)
== END 2022-04-18 00:52 ==
LOC: DI 00:33
PROVIDERS: PCP Family Medicine; Visit Provider Family Medicine
DX: R14.0 Abdominal distension (gaseous) (principal); R31.9 Hematuria, unspecified; K76.0 Fatty (change of) liver, not elsewhere classified; N28.1 Cyst of kidney, acquired; N32.89 Other specified disorders of bladder; N40.0 Benign prostatic hyperplasia without lower urinary tract symptoms
CPT/HCPCS: 74178; J3490

== ENCOUNTER 2022-05-10 09:56 | Emergency (ER) | payer MEDICARE, MEDICAID, SELFPAY ==
[2022-05-10 09:59] VITALS: BP 135/75; PULSE 68; RESP 18; TEMP 36.3; O2SAT 100
--- NOTE | 2022-05-10 10:30 | DI.CT_ITS ---
Exam(s) CT LUMBAR SPINE WO EXAM: CT LUMBAR SPINE WO CLINICAL HISTORY: Back pain with urinary incontinence. TECHNIQUE: Imaging Protocol: Axial computed tomography images with coronal and sagittal reformatted images were created and reviewed COMPARISON: CT CT ABDOMEN PELVIS WO/W from 04/18/2022 FINDINGS: Bones: The last intervertebral disc space is designated the L5/S1 level for the numbering purpose of this examination. The vertebral body heights are well maintained. Alignment is satisfactory. No fracture is seen. T12-L1: Question of punctate calcifications within the central canal. Question small nodular focus v ersus artifact within central canal at the L2 level posteriorly measuring roughly 12 x 7 by 9 millime ters. The visualized SI joints and sacrum are will maintained. Soft Tissues: The paraspinal soft tissues are unremarkable. IMPRESSION: Question of calcifications in the central canal at the T12 level. Question of small area of nodulari ty in the posterior central canal at the L2 level. MRI with contrast recommended for further evaluat ion. RADIATION DOSE DELIVERED: 1,192.24mGy.cm Total DLP DATA REPOSITORY: All CT scans at this facility are submitted to the National Radiology Data Registry (NRDR) Dose Index Registry (DIR) with the [employer] ([employer]CR). RADIATION OPTIMIZATION: All CT scans at this facility use at least one of these dose optimization te chniques: automated exposure control; mA and/or kV adjustment per patient size (includes targeted exa ms where dose is matched to clinical indication); or iterative reconstruction.
--- NOTE | 2022-05-10 10:37 | W.ED.GENAD ---
Discharge Plan Disposition Patient Disposition: Other Disposition Not Listed Other Facility: [facility] [place] Discharge Details Clinical Impression: Low back pain, Urinary incontinence Primary Care Provider: Judd Pizarro ED Provider: Diallo Priest Home Meds and New Rx's Prescriptions: No Action (DME) lancets [FreeStyle Lancets] 28 gauge misc See Rx Instructions .ROUTE .MEDSUPPLY Qty: 25 Rx Instructions: As directed albuterol sulfate [Ventolin HFA] 90 mcg/actuation HFA aerosol inhaler 1 - 2 puff Inhalation Q4H PRN Qty: 1 6RF Patient Comments: 09/03/21 pt reports he hasnt used in @ 5 months Rx Instructions: PHARMACY: PLEASE DISPENSE ALBUTEROL BRAND COVERED BY INSURANCE gemfibrozil [Lopid] 600 mg tablet 600 mg PO DAILY Qty: 90 3RF atorvastatin 20 mg tablet 20 mg PO DAILY Qty: 90 3RF pantoprazole [Protonix] 40 mg tablet,delayed release (DR/EC) 40 mg PO DAILY Qty: 30 12RF sucralfate [Carafate] 1 gram tablet 1 g PO HS Qty: 30 12RF lisinopril 10 mg tablet 5 mg PO DAILY nitroglycerin [Nitrostat] 0.4 mg tablet, sublingual 0.4 mg Sublingual Q5 MIN PRN X3 Qty: 100 1RF Patient Comments: 09/03/21 pt reports he hasnt taken in @ 3 months Rx Instructions: 1 tab sublingual q5m PRN x3 chest pain cholecalciferol (vitamin D3) [Vitamin D3] 50 mcg (2,000 unit) tablet 2,000 unit PO DAILY Qty: 90 3RF docusate sodium [Colace] 100 mg capsule 100 mg PO DAILY Rx Instructions: [facility] GI polyethylene glycol 3350 [Miralax] 17 gram/dose powder 17 g PO DAILY PRN (Reason: constipation) Rx Instructions: [facility] metformin 500 mg tablet extended release 24 hr 1,000 mg PO DAILY Qty: 180 3RF Rx Instructions: for diabetes, two tabs in the morning aspirin 81 mg tablet,delayed release (DR/EC) 81 mg PO DAILY 90 Days Qty: 90 3RF (DME) FreeStyle Lite Strips Strip See Rx Instructions .ROUTE .MEDSUPPLY Qty: 100 3RF Patient Comments: pt. states he checks his sugars when he thinks his sugars high Rx Instructions: Test daily to keep HbA1c less than 6.5%; Dx: E11.9 semaglutide 0.25 mg or 0.5 mg(2 mg/1.5 mL) pen injector 1 mg subcut QWEEK Rx Instructions: 09/27/20 PER [facility] STARTE 0.25 MG SB ONCE A WEEK FOR 28 DAYS, THEN 0.5 MG ONCE A WEEK. PT GOT MED 10/01/20 TIMOTHY 03/22/21-incr dose per [facility] weight/wellness-[facility] acetaminophen 500 mg tablet 500 mg PO Q6H PRN (Reason: pain) Qty: 60 2RF ibuprofen 600 mg tablet 600 mg PO TID PRN (Reason: pain) Qty: 60 0RF cyclobenzaprine 10 mg tablet 10 mg PO TID PRNQty: 20 0RF Discharge Data Discharge Date/Time-TO BE ENTERED AT DEPARTURE: 05/10/22 15:21 Medical Decision Making Patient presenting to the emergency department for chief complaint of urinary incontinence but also back pain. Patient states he has had back pain for the past 2 to 3 weeks which he is seen primary care provider for and was placed on a muscle relaxer. Yesterday patient had episode of urinary incontinence but then was able to control his bladder. Then this morning patient had another episode of urinary incontinence. Patient states no history of urinary incontinence. Patient denies any numbness or tingling, weakness of extremities, loss of sensation, saddle anesthesia, fever chills. Physical exam does show midline diffuse lumbar tenderness with more tenderness towards the lower aspects of the lumbar spine. Patient has DTRs intact equal bilateral, normal sensation, normal rectal tone, normal genital exam, normal strength to the extremities. I have low suspicion of cauda equina but it is definitely considered given the urinary incontinence and back pain. We will plan on performing CT imaging of the lumbar spine given circumstances but unfortunately due to patient presenting on a weekend with no MRI availability cannot perform emergent MRI. We will also check labs and urine for other possible causes of urinary incontinence. Bladder scan was performed prior to urinalysis and there was approximately 275 mL noted in bladder. Will obtain postvoid residual. Pending results we will give patient acetaminophen. Patient does have significant medical history of stage III CKD, diabetes, hypertension, obesity. Review of patient's labs show an unremarkable CBC that is nondiagnostic, CMP does show creatinine of 1.4 with a GFR 58 and a glucose of 133 which is near patient's baseline. Urinalysis shows small amount of blood which has been noted in the past with no signs of acute infection. Postvoid residual shows less than 100 mL. culture was ordered due to urinary incontinence. Review of CT imaging shows degenerative changes that are mild without spinal stenosis or neural foraminal narrowing. There is possible punctate noted in spinal canal at T12 which was not seen on previous CT imaging. Radiologist does recommend potential MRI imaging if further concern for cauda equina was noted. There are some evidence of lumbar bulging disc. We will consult with neurosurgery at [facility] but given that patient's glucose is well controlled we will give patient some steroids to also see if this helps with pending results. Spoke with on-call orthopedic surgeon Dr. Samaniego for [facility] that reviewed CT imaging and we discussed patient's case. She recommended that given urinary incontinence without any other obvious explanation that patient should have MRI imaging performed today. She stated that they would look into ED to ED transfer for further evaluation and completion of work-up of MRI. Discussed this with patient and patient did agree with this plan of care. Spoke with the ED attending Dr. Newton who accepted the patient for ED to ED transfer for further evaluation and MRI imaging. Patient to be transferred by S crew as patient is currently stable with no reported pain and stated improvement after steroid. Imaging Data Radiologic Study: Attestation: I personally reviewed and interpreted this imaging study as follows: Imaging: CT Scan Radiologist's impression: xam(s) PROCEDURE INFORMATION: Exam: CT Lumbar Spine Without Contrast Exam date and time: 05/10/2022 10:57 AM Age: 56 years old Clinical indication: Other: Back pain with urinary incontinence; Additional info: No injury. No surgeries TECHNIQUE: Imaging protocol: Computed tomography of the lumbar spine without contrast. Radiation optimization: All CT scans at this facility use at least one of these dose optimization techniques: automated exposure control; mA and/or kV adjustment per patient size (includes targeted exams where dose is matched to clinical indication); or iterative reconstruction. COMPARISON: 1. CR XR LUMBAR SPINE COMPLETE 12/15/2019 9:[address] ABDOMEN PELVIS WO/W 04/18/2022 8:06 AM FINDINGS: Bones/joints: No acute fracture. There are mild lumbar disc bulges without significant focal protrusion at L4-L5 and L5-S1. There are also mild lumbar facet degenerative changes. There is no evidence of spinal stenosis or neural foraminal narrowing. Possible punctate calcification within spinal canal at T12 level not definitely seen on prior examination, this could also not be visualized not that it was present but because the abdominal and pelvic CT was performed at much thicker imaging technique on prior CT abdomen pelvis. The internal contents of spinal canal can not be well evaluated to assess for cauda equina or distal spinal cord abnormalities, and could consider follow-up MRI imaging. Lungs: There is mild linear atelectasis or scarring in lung bases. Liver: Liver partially visualized appears fatty infiltrative. Kidneys and ureters: There are partially visualized right renal cysts seen on prior CT of abdomen. Vasculature: There are atherosclerotic change without abdominal aortic aneurysm. Soft tissues: Unremarkable. IMPRESSION: 1. Possible punctate calcification in spinal canal at T12 which can not be confirmed on prior examination and please see above discussion. 2. If concern for cauda equina compression, recommend MRI lumbar spine with and without contrast. 3. Mild degenerative changes without spinal stenosis or neural foraminal narrowing. HPI General Mode of arrival: ambulatory. Date/Time Provider Initiated Documentation: 05/10/22 09:57. Limitations to Documentation: no limitations. Information obtained by: patient and RN notes reviewed. History of Present Illness 56 year old M presents to the emergency department with the chief complaint of Back pain, urinary incontinence, described as moderate, with intensity rated at 6. Quality is described as aching, and is localized to the back. Patient reports no radiation. Patient started experiencing this week(s) (3) and it has been constant. No relieving factors improve symptom(s), No exacerbating factors reported . Patient notes other (Urinary incontinence that is intermittent started yesterday). Patient did receive the following treatments prior to arrival, none Related Data Home Medications Medication Instructions Recorded Confirmed lancets 28 gauge (FreeStyle #25 ea 08/29/19 01/23/22 Lancets) nitroglycerin 0.4 mg sublingual 0.4 mg sublingual Q5 MIN PRN X3 09/21/19 05/10/22 tablet (Nitrostat) chest pain #100 tabs albuterol sulfate 90 mcg/actuation 1 - 2 puff inhalation Q4H PRN ##1 10/20/19 05/10/22 aerosol inhaler (Ventolin HFA) cholecalciferol (vitamin D3) 50 2,000 unit PO DAILY #90 tab-caps 06/28/20 05/10/22 mcg (2,000 unit) tablet (Vitamin D3) docusate sodium 100 mg capsule 100 mg PO DAILY 07/06/20 05/10/22 (Colace) polyethylene glycol 3350 17 17 g PO DAILY PRN constipation 07/06/20 05/10/22 gram/dose oral powder (Miralax) atorvastatin 20 mg tablet 20 mg PO DAILY #90 tabs 11/09/20 05/10/22 gemfibrozil 600 mg tablet (Lopid) 600 mg PO DAILY #90 tabs 11/09/20 05/10/22 metformin 500 mg tablet,extended 1,000 mg PO DAILY #180 tab-caps 01/29/21 05/10/22 release 24 hr aspirin 81 mg tablet,delayed 81 mg PO DAILY 90 days ##90 01/31/21 05/10/22 release blood sugar diagnostic (FreeStyle #100 ea 03/14/21 01/23/22 Lite Strips) semaglutide 0.25 mg or 0.5 mg (2 1 mg subcut QWEEK 03/22/21 05/10/22 mg/1.5 mL) subcutaneous pen injector pantoprazole 40 mg tablet,delayed 40 mg PO DAILY #30 tabs 05/23/21 05/10/22 release (Protonix) sucralfate 1 gram tablet (Carafate) 1 g PO HS #30 tabs 05/23/21 05/10/22 lisinopril 10 mg tablet 5 mg PO DAILY 10/11/21 05/10/22 acetaminophen 500 mg tablet 500 mg PO Q6H PRN pain #60 tabs 12/04/21 05/10/22 ibuprofen 600 mg tablet 600 mg PO TID PRN pain #60 tabs 12/04/21 05/10/22 cyclobenzaprine 10 mg tablet 10 mg PO TID PRN #20 tabs 01/23/22 05/10/22 Previous Rx's Medication Instructions Recorded nitroglycerin 0.4 mg sublingual 0.4 mg sublingual Q5 MIN PRN X3 09/21/19 tablet (Nitrostat) chest pain #100 tabs albuterol sulfate 90 mcg/actuation 1 - 2 puff inhalation Q4H PRN ##1 10/20/19 aerosol inhaler (Ventolin HFA) cholecalciferol (vitamin D3) 50 2,000 unit PO DAILY #90 tab-caps 06/28/20 mcg (2,000 unit) tablet (Vitamin D3) atorvastatin 20 mg tablet 20 mg PO DAILY #90 tabs 11/09/20 gemfibrozil 600 mg tablet (Lopid) 600 mg PO DAILY #90 tabs 11/09/20 metformin 500 mg tablet,extended 1,000 mg PO DAILY #180 tab-caps 01/29/21 release 24 hr aspirin 81 mg tablet,delayed 81 mg PO DAILY 90 days ##90 01/31/21 release blood sugar diagnostic (FreeStyle #100 ea 03/14/21 Lite Strips) pantoprazole 40 mg tablet,delayed 40 mg PO DAILY #30 tabs 05/23/21 release (Protonix) sucralfate 1 gram tablet (Carafate) 1 g PO HS #30 tabs 05/23/21 acetaminophen 500 mg tablet 500 mg PO Q6H PRN pain #60 tabs 12/04/21 ibuprofen 600 mg tablet 600 mg PO TID PRN pain #60 tabs 12/04/21 cyclobenzaprine 10 mg tablet 10 mg PO TID PRN #20 tabs 01/23/22 Allergies Allergy/AdvReac Type Severity Reaction Status Date / Time celecoxib Allergy Intermediate Rash, Verified 05/10/22 10:03 urticaria naproxen Allergy Intermediate Itchy Welts Verified 05/10/22 10:03 General Stated Complaint: Nk/Back Pain JAMES: 3 Review of Systems Constitutional Constitutional: Denies chills and Denies fever(s) Cardiovascular Cardiovascular: Denies chest pain and Denies dyspnea on exertion Respiratory Respiratory: Denies cough and Denies dyspnea on exertion Gastrointestinal Gastrointestinal: Denies abdominal pain, Denies change in bowel habits, Denies diarrhea, Denies nausea and Denies vomiting Genitourinary Genitourinary: Denies difficulty urinating, Denies urinary frequency and Reports urinary incontinence Musculoskeletal Musculoskeletal: Reports as per HPI and Reports back pain Neurologic Neurologic: Denies sensory deficit PFSH All Active Problems (Updated 05/10/22 @ 14:40 by Diallo Priest NP) Low back pain (Acute) Urinary incontinence (Acute) Abnormal stress test (Chronic) Tobacco use disorder (Chronic) Quit 2019, restarted late in the year Vitamin D deficiency (Chronic) Chronic kidney disease (CKD), stage III (moderate) (Chronic 05/26/16) ? due to DM or to hypertension Diabetes mellitus type 2 in obese (Chronic 02/19/16) presented with polyuria, elevated FS on friend's glucometer, A1c 14 at [facility] ER Essential hypertension (Chronic) goal <140/85 Gastroesophageal reflux disease without esophagitis (Chronic 12/05/11) ER 11/2014 rx PPI Microscopic hematuria (Chronic 02/27/14) CT neg; JUSTINO neg; persists 01/2015 Mixed hyperlipidemia (Chronic 02/16/01) low HDL 27; SL HIGH TG; CV RISK (12/2016): 27%: rec Statin Obesity, unspecified (Chronic 12/05/11) 1993 165#; 180 gives BMI <30 05/06/21 [facility], BMI 35.10 Obstructive sleep apnea (Chronic 03/10/16) [id number], severe in REM sleep Sleep study PSG on 03/10/16: AHI 20.1; SPO2 shailesh 82%; CPAP begun 06/08/16. with improvement in fatigue 06/29/16 restudied higher pressures needed assoc. with treatment of central sleep apnea Complex regional pain syndrome (Chronic 06/27/13) Type 2 diabetes mellitus (Chronic 12/05/11) Chest pain (Acute) Hypertrophy of tonsils (Acute) 02/21/2019 ENT, Dr Lange Dysfunction of left eustachian tube (Acute) 02/21/[address] Lange Edentulous (Acute) Chronic maxillary sinusitis (Acute) History of sinusitis (Acute) Abdominal obesity (Acute) Chest pain (Acute) Bilateral hydrocele (Acute) Abdominal pain (Acute) Lightheadedness (Acute) Hematuria (Acute) Family history of cerebral aneurysm (Chronic) Mother in Mar 2020 Right arm numbness (Acute) Functional bowel disorder (Acute) Diverticulosis (Chronic) Colonoscopy June 2019 Other constipation (Acute ~2020) [facility] Polyp of colon (Acute ~2020) [facility] Right lower quadrant pain (Acute ~2020) [facility] Sinusitis (Acute) High triglycerides (Acute) Dizziness (Acute) Dyspnea (Acute) Gout (Chronic) R 1st PIP joint Umbilical hernia (Acute) History of alcohol abuse (Acute) Burning sensation (Acute) Eructation (Acute) Medical History Paresthesias (10/27/16) nocturnal, bilateral, R>L, Median nerve, probable CTS Sessile colonic polyp (09/26/14) @ transverse colon, sigmoid Surgical History Cardiac Cath (03/24/17) [id number] stents placed Carpal tunnel syndrome of left wrist S/P ECTR: 09/03/2021 Carpal tunnel syndrome of right wrist S/P ECTR: 12/04/2021 Colonoscopy - IV Sedation (09/26/14) [facility] Perri, serrated polyp, fragments of sessile serrated adenoma Cubital tunnel syndrome of both upper extremities S/P L cubital tunnel release: 09/03/2021 S/P R cubital tunnel release: 12/04/2021 Cystoscopy w/ joe retrograde pyelogram (03/01/15) Extraction of cataract (12/17/16) Left Radha Manzo; R 11/19/16 Family History Father , lung cancer at age 67. Essential hypertension Neoplasm Mother Diabetes Essential hypertension Sister No problems noted. Sister No problems noted. Social History Smoking/Tobacco Use Status: Current every day Tobacco Type: cigarettes Tobacco: How many years used: 41 Quit status: considering quitting Smoking risk assessment performed?: Yes Alcohol Intake: former Drug use: Never Substance use type: does not use Household members: significant other Housing: apartment Number of Children: 3 Communication Needs: None Do you need help understanding health information?: Often current occupation: Disabled Current gender identity: male What is your relationship status?: living with partner How often do you talk on the phone with friends or family?: three or more times per week How often do you get together with friends or relatives?: three or more times per week Panel score (0-1 are the most socially isolated patients): 2 What type of physical activity do you participate in: none Seatbelt use: always Drive intox or ride w/intox taxicab driver: No Working smoke detector in home: No Fire extinguisher in home: No Carbon monox detector in home: No Do you feel safe at home: Yes Do you feel safe in your relationship?: Yes Exam Const General: cooperative and no acute distress Orientation: alert, awake and oriented x3 Neck Neck: normal visual inspection, full ROM and no meningeal signs Resp Effort & Inspection: normal respiratory effort Auscultation: clear to auscultation bilaterally Cardio Rate: regular rate Rhythm: regular rhythm Heart Sounds: S1 normal and S2 normal GI Palpation: no hepatosplenomegaly, no aortic enlargement, no masses and no pulsatile masses Rectal Exam: visual inspection normal and normal sphincter tone Male General Exam: Yes normal external exam and No tenderness Penis: normal penis Meatus: meatus normal Scrotum: scrotum normal Testes: normal and testicular lie normal Back/Spine/Pelvis Thoracic/Lumbar Spine: straight leg raise negative bilaterally, pain with thoraco-lumbar ROM, No paraspinal tenderness, thoraco-lumbar ROM limited, No thoracic spinal tenderness and lumbar spinal tenderness Pelvis: no pain with anterior-posterior compression and no pain with lateral compression Neuro General: patient alert, patient awake and patient oriented x3 Cognition: normal cognition Speech: speech normal Gait: normal gait Motor: muscle tone normal throughout and strength 5/5 throughout Sensory Exam: no sensory deficits noted DTR's: Rt Patellar: 1+, Lt Patellar: 1+, Rt Ankle: 1+ and Lt Ankle: 1+ Course Vital Signs Vital signs: Vital Signs Temperature 36.3 C L 05/10/22 09:59 Pulse 68 05/10/22 09:59 Respiratory Rate 18 05/10/22 09:59 Blood Pressure 135/75 05/10/22 09:59 Pulse Oximetry 100 05/10/22 09:59 Temperature 36.3 C L 05/10/22 09:59 Temperature Source Oral 05/10/22 09:59 Pulse 68 05/10/22 09:59 Respiratory Rate 18 05/10/22 09:59 Respiratory Effort Normal 05/10/22 10:04 Blood Pressure 135/75 05/10/22 09:59 Blood Pressure Position Sitting 05/10/22 09:59 Pulse Oximetry 100 05/10/22 09:59 Oxygen Delivery Method Room Air 05/10/22 09:59 Oxygen Flow Rate 0 05/10/22 09:59 Pain Level 6 05/10/22 10:17
[2022-05-10 10:44] LABS: Abs Immature Grans 0.13 10^3/uL (0.0-0.06); Absolute Basophil Count 0.11 10^3/uL (0.0-0.2); Absolute Eosinophil Count 0.24 10^3/uL (0.0-0.7); Absolute Lymphocyte Count 2.22 10^3/uL (1.2-3.4); Absolute Monocyte Count 0.84 10^3/uL (0.1-0.8); Absolute Neutrophil Count 5.46 10^3/uL (1.2-6.7); Basophils % 1.2; Eosinophils % 2.7; HCT 48.5 % (40.0-50.0); HGB 16.8 g/dL (13.5-17.5); Immature Grans % 1.4; Lymphocytes % 24.7; MCH 30.5 pg (27.0-33.0); MCHC 34.6 % (32.0-36.0); MCV 88 fL (80-95); MPV 9.9 fL (8.0-11.0); Monocytes % 9.3; Neutrophils % 60.7; Platelet Count 190 10^3/uL (130-400); RBC 5.51 10^6/uL (4.36-5.78); RDW 12.2 % (11.8-14.1); RDW-SD 39.7 fL
[2022-05-10] MEDS: ACETAMINOPHEN 1,000 MG/100 ML BTL 400 MG IVPB (11:09)
[2022-05-10 11:14] LABS: ALT 49 U/L (16-63); AST 21 U/L (15-37); Albumin 3.8 g/dL (3.4-5.0); Alkaline Phosphatase 109 U/L (46-116); Anion Gap 9.3 mmol/L (3-11); BUN 17 mg/dL (7-18); Bilirubin, Total 0.5 mg/dL (0.2-1.0); CO2 26.7 mmol/L (21.0-32.0); CREATININE 1.4 mg/dL (0.70-1.30); Calcium 9.3 mg/dL (8.5-10.1); Chloride 104 mmol/L (98-107); Estimated GFR 58.26 (mL/min/1.73m2); Glucose 133 mg/dL (74-106); Potassium 4.3 mmol/L (3.5-5.1); Sodium 140 mmol/L (136-145); Total Protein 6.7 g/dL (6.4-8.2)
--- NOTE | 2022-05-10 11:50 | DI.VRAD_ITS ---
PROCEDURE INFORMATION: Exam: CT Lumbar Spine Without Contrast Exam date and time: 05/10/2022 10:57 AM Age: 56 years old Clinical indication: Other: Back pain with urinary incontinence; Additional info: No injury. No surgeries TECHNIQUE: Imaging protocol: Computed tomography of the lumbar spine without contrast. Radiation optimization: All CT scans at this facility use at least one of these dose optimization techniques: automated exposure control; mA and/or kV adjustment per patient size (includes targeted exams where dose is matched to clinical indication); or iterative reconstruction. COMPARISON: 1. CR XR LUMBAR SPINE COMPLETE 12/15/2019 9:[address] ABDOMEN PELVIS WO/W 04/18/2022 8:06 AM FINDINGS: Bones/joints: No acute fracture. There are mild lumbar disc bulges without significant focal protrusion at L4-L5 and L5-S1. There are also mild lumbar facet degenerative changes. There is no evidence of spinal stenosis or neural foraminal narrowing. Possible punctate calcification within spinal canal at T12 level not definitely seen on prior examination, this could also not be visualized not that it was present but because the abdominal and pelvic CT was performed at much thicker imaging technique on prior CT abdomen pelvis. The internal contents of spinal canal can not be well evaluated to assess for cauda equina or distal spinal cord abnormalities, and could consider follow-up MRI imaging. Lungs: There is mild linear atelectasis or scarring in lung bases. Liver: Liver partially visualized appears fatty infiltrative. Kidneys and ureters: There are partially visualized right renal cysts seen on prior CT of abdomen. Vasculature: There are atherosclerotic change without abdominal aortic aneurysm. Soft tissues: Unremarkable. IMPRESSION: 1. Possible punctate calcification in spinal canal at T12 which can not be confirmed on prior examination and please see above discussion. 2. If concern for cauda equina compression, recommend MRI lumbar spine with and without contrast. 3. Mild degenerative changes without spinal stenosis or neural foraminal narrowing. Dictated and Authenticated by: Rachael Martinez MD. Ordering:ALFREDO Landrum MD
[2022-05-10 12:08] LABS: Bilirubin Negative (Negative); Blood Small (Negative); Clarity Clear (Clear); Glucose Negative (Negative); Ketones Negative (Negative); Leukocyte Esterase Negative (Negative); Nitrite Negative (Negative); Specific Gravity 1.025 (1.005-1.025); Urobilinogen 0.2 mg/dL (Up to 0.2)
[2022-05-10 12:15] LABS: Bacteria Negative HPF (Negative); C & S Indicated? C&S Done As Ordered; Casts Negative LPF (Negative); Crystals Negative HPF (Negative); Epithelial Cells Rare HPF (Negative); Mucus Trace (Negative); WBC Negative HPF (0-5)
[2022-05-10] MEDS: Dexamethasone 10 MG/ML VIAL IVP (14:03)
--- NOTE | 2022-05-12 08:57 | NUR.NOTE ---
Nursing Note: Accessed chart to look up whether or not on antibiotic.
== END 2022-05-10 15:21 | disposition other institution (70) ==
PROVIDERS: Emergency Provider Nurse Practitioner Family; PCP Family Medicine
DX: M54.50 Low back pain, unspecified (principal); R32 Unspecified urinary incontinence; I12.9 Hypertensive chronic kidney disease with stage 1 through stage 4 chronic kidney disease, or unspecified chronic kidney disease; E11.22 Type 2 diabetes mellitus with diabetic chronic kidney disease; N18.30 Chronic kidney disease, stage 3 unspecified; Z79.84 Long term (current) use of oral hypoglycemic drugs; Z79.82 Long term (current) use of aspirin
CPT/HCPCS: 36415; 80053; 96365; 96375; 99284; 72131; 81003; 81015; 85025; 87086; J0131; J1100

== ENCOUNTER 2022-06-19 14:21 | Outpatient (CLI) | payer MEDICARE, MEDICAID, SELFPAY ==
--- NOTE | 2022-06-19 | DI.MRI_ITS ---
Exam(s) MR LUMBAR SPINE WO/W EXAM: MR LUMBAR SPINE WO/W CLINICAL HISTORY: LESION OF LUMBAR SPINE, M99.9. TECHNIQUE: Multiplanar multisequence MRI of the Lumbar Spine was performed. CONTRAST MATERIAL: IV Contrast: 20 mL of Dotarem contrast administered. COMPARISON: CT CT ABDOMEN PELVIS WO/W from 04/18/[address] LUMBAR SPINE WO from 05/10/2022 FINDINGS: Bones: The last intervertebral disc space is designated the L5/S1 level for the numbering purpose of this examination. The vertebral body heights are well maintained. Alignment is satisfactory. Mild de generative endplate signal changes are seen at T11-T12 through L1-L2. Cord: The conus tip ends at the L1 level. It is of normal size and signal intensity. T12-L1: No disc herniations or bulges are present. No central spinal canal or neural foraminal stenos is. L1-2: No disc herniations or bulges are present. No central spinal canal or neural foraminal stenosis . L2-3: No disc herniations or bulges are present. No central spinal canal or neural foraminal stenosis . L3-4: No disc herniations or bulges are present. No central spinal canal or neural foraminal stenosis . L4-5: No disc herniations or bulges are present. No central spinal canal or neural foraminal stenosis . L5-S1: There is a mild diffuse disc bulge. No central spinal canal or neural foraminal stenosis. Soft tissues: The visualized SI joints and sacrum are well maintained. The paraspinal soft tissues ar e unremarkable. There are bilateral renal cysts which appears stable. No follow-up is recommended. There is no evidence of suspicious enhancement. IMPRESSION: 1. No evidence of significant spinal stenosis or neuroforaminal narrowing. 2. No evidence of a mass or enhancing lesion. 3. Normal appearance and location of the spinal cord. DATA REPOSITORY:
[2022-06-19] MEDS: Normal Saline Flush 10 ML SYR IVP (11:13)
[2022-06-19] MEDS: Gadoterate meglumine 20 ML SYRINGE IVP (11:13)
== END 2022-06-19 14:41 ==
LOC: DI 14:21
PROVIDERS: PCP Family Medicine; Visit Provider Family Medicine
DX: M99.9 Biomechanical lesion, unspecified (principal)
CPT/HCPCS: 72158

== ENCOUNTER 2022-06-25 17:28 | Outpatient (REF) | payer MEDICARE, MEDICAID, SELFPAY ==
[2022-06-25 19:01] LABS: Bilirubin Negative (Negative); Blood Moderate (Negative); Clarity Turbid (Clear); Glucose Negative (Negative); Ketones Negative (Negative); Leukocyte Esterase Negative (Negative); Nitrite Negative (Negative); Specific Gravity >= 1.030 (1.005-1.025); pH 5.5 (5-8)
[2022-06-25 19:09] LABS: Bacteria Rare HPF (Negative); C & S Indicated? No; Crystals Many Amorphous HPF (Negative); Epithelial Cells Rare HPF (Negative); Mucus Negative (Negative); WBC Negative HPF (0-5)
[2022-06-25 19:18] LABS: Microalb ug/mg Crea 6.4 ug/mg Cr
== END 2022-06-25 17:29 | disposition home or self-care (01) ==
LOC: NCHCN 17:28
PROVIDERS: PCP Family Medicine; Visit Provider Family Medicine
DX: E11.9 Type 2 diabetes mellitus without complications (principal); N40.1 Benign prostatic hyperplasia with lower urinary tract symptoms
CPT/HCPCS: 81003; 81015; 82043; 82570

== ENCOUNTER → 2022-07-04 14:13 | Outpatient (BNVA) | payer MEDICARE, MEDICAID, SELFPAY | PROVIDERS: PCP Family Medicine; Visit Provider Urology | DX: R31.29 Other microscopic hematuria (principal); N39.42 Incontinence without sensory awareness | CPT/HCPCS: 81003; 99214 ==

== ENCOUNTER 2022-07-04 15:05 | Outpatient (REF) | payer MEDICARE, MEDICAID, SELFPAY ==
[2022-07-07 09:28] LABS: PSA, Diagnostic 0.6 ng/mL (<=3.5)
== END 2022-07-04 15:06 | disposition home or self-care (01) ==
LOC: LBN 15:05
PROVIDERS: PCP Family Medicine; Visit Provider Urology
DX: R31.29 Other microscopic hematuria (principal); N39.42 Incontinence without sensory awareness
CPT/HCPCS: 84153

== ENCOUNTER 2022-09-12 00:46 | Outpatient (CLI) | payer MEDICARE, MEDICAID, SELFPAY ==
[2022-09-12 14:32] LABS: CREATININE 1.5 mg/dL (0.70-1.30)
[2022-09-12] MEDS: Normal Saline - Diluent 50 ML VIAL IJ (14:47)
[2022-09-12] MEDS: Omnipaque 350 MG/ML 100 ML BTL IJ (14:50)
[2022-09-12] MEDS: Normal Saline Flush 10 ML SYR IJ (14:50)
--- NOTE | 2022-09-12 14:52 | DI.CT_ITS ---
Exam(s) CT CHEST W EXAM: CT CHEST W CLINICAL HISTORY: NEW LLL COARSE RESPIRATORY CRACKLES, R09.89 TECHNIQUE: Imaging Protocol: Axial computed tomography images with coronal and sagittal reformatted images were created and reviewed CONTRAST MATERIAL: Intravenous: Omnipaque 350Contrast volume:70 mL. COMPARISON: CT CT CHEST LUNG CANCER SCREEN from 11/21/2020 CR XR CHEST 2V PA LATERAL from 11/28/[address] ABDOMEN PELVIS WO/W from 04/18/2022 FINDINGS: Tracheobronchial tree: Patent where visualized. Pulmonary parenchyma: No consolidation or dominant measurable mass. There has been no change in the r ight upper lobe scarring medially. There are dependent atelectatic changes in the lung bases. No fo rayshawn consolidating infiltrates are seen. Mediastinum and Krysta: No dominant adenopathy or fluid collection. The esophagus is unremarkable. Thyroid gland: Unremarkable. Pleura: No effusion or pneumothorax. Heart: The heart is not dilated. No coronary artery calcifications are seen. No pericardial effusion. Aorta: Thoracic aorta non-dilated. Atherosclerosis. Pulmonary arteries: Pulmonary arteries are not adequately opacified for evaluation of pulmonary embol i. Upper abdomen: There is fatty infiltration of the liver. Stable bilateral renal cysts. No follow-u p is recommended. Lymph nodes: Within normal limits. Bones: Within normal limits for the patient's age. Soft tissues: Bilateral gynecomastia. IMPRESSION: 1. No focal infiltrates or pulmonary nodules. 2. Stable scarring in the inferior medial aspect of the right upper lobe. RADIATION DOSE DELIVERED: 716.89mGy.cm Total DLP DATA REPOSITORY: All CT scans at this facility are submitted to the National Radiology Data Registry (NRDR) Dose Index Registry (DIR) with the [employer] (A[employer]). RADIATION OPTIMIZATION: All CT scans at this facility use at least one of these dose optimization te chniques: automated exposure control; mA and/or kV adjustment per patient size (includes targeted exa ms where dose is matched to clinical indication); or iterative reconstruction.
== END 2022-09-12 01:06 ==
LOC: DI 00:47
PROVIDERS: PCP Family Medicine; Visit Provider Family Medicine
DX: R09.89 Other specified symptoms and signs involving the circulatory and respiratory systems (principal)
CPT/HCPCS: 71260; 82565; J3490

== ENCOUNTER 2022-10-21 17:28 | Outpatient (REF) | payer MEDICARE, MEDICAID, SELFPAY ==
[2022-10-21 19:39] LABS: Anion Gap 13.2 mmol/L (3-11); BUN 14 mg/dL (7-18); CO2 21.8 mmol/L (21.0-32.0); CREATININE 1.4 mg/dL (0.70-1.30); Chloride 105 mmol/L (98-107); Glucose 125 mg/dL (74-106); Potassium 3.9 mmol/L (3.5-5.1); Sodium 140 mmol/L (136-145)
== END 2022-10-21 17:29 | disposition home or self-care (01) ==
LOC: NCHCN 17:28
PROVIDERS: PCP Family Medicine; Visit Provider Family Medicine
DX: E11.9 Type 2 diabetes mellitus without complications (principal)
CPT/HCPCS: 80048

== ENCOUNTER 2022-11-22 12:28 | Emergency (ER) | payer MEDICARE, MEDICAID, SELFPAY ==
[2022-11-22 12:33] VITALS: BP 154/52; PULSE 77; RESP 18; TEMP 37; O2SAT 100
--- NOTE | 2022-11-22 12:57 | W.ED.GENAD ---
Discharge Plan Disposition Patient Disposition: Home Condition: Good Discharge Details Clinical Impression: Abscess Primary Care Provider: Judd Pizarro ED Provider: Valentine Mckinney Home Meds and New Rx's Prescriptions: New doxycycline hyclate 100 mg capsule 100 mg PO BID Qty: 10 0RF No Action (DME) lancets [FreeStyle Lancets] 28 gauge misc See Rx Instructions .ROUTE .MEDSUPPLY Qty: 25 Rx Instructions: As directed albuterol sulfate [Ventolin HFA] 90 mcg/actuation HFA aerosol inhaler 1 - 2 puff Inhalation Q4H PRN Qty: 1 6RF Patient Comments: 09/03/21 pt reports he hasnt used in @ 5 months Rx Instructions: PHARMACY: PLEASE DISPENSE ALBUTEROL BRAND COVERED BY INSURANCE gemfibrozil [Lopid] 600 mg tablet 600 mg PO DAILY Qty: 90 3RF atorvastatin 20 mg tablet 20 mg PO DAILY Qty: 90 3RF pantoprazole [Protonix] 40 mg tablet,delayed release (DR/EC) 40 mg PO DAILY Qty: 30 12RF sucralfate [Carafate] 1 gram tablet 1 g PO HS Qty: 30 12RF Myrbetriq 25 mg tablet extended release 24 hr 25 mg PO DAILY Qty: 28 0RF lisinopril 10 mg tablet 5 mg PO DAILY nitroglycerin [Nitrostat] 0.4 mg tablet, sublingual 0.4 mg Sublingual Q5 MIN PRN X3 Qty: 100 1RF Patient Comments: 09/03/21 pt reports he hasnt taken in @ 3 months Rx Instructions: 1 tab sublingual q5m PRN x3 chest pain cholecalciferol (vitamin D3) [Vitamin D3] 50 mcg (2,000 unit) tablet 2,000 unit PO DAILY Qty: 90 3RF docusate sodium [Colace] 100 mg capsule 100 mg PO DAILY Rx Instructions: [facility] GI polyethylene glycol 3350 [Miralax] 17 gram/dose powder 17 g PO DAILY PRN (Reason: constipation) Rx Instructions: [facility] metformin 500 mg tablet extended release 24 hr 1,000 mg PO DAILY Qty: 180 3RF Rx Instructions: for diabetes, two tabs in the morning aspirin 81 mg tablet,delayed release (DR/EC) 81 mg PO DAILY 90 Days Qty: 90 3RF (DME) FreeStyle Lite Strips Strip See Rx Instructions .ROUTE .MEDSUPPLY Qty: 100 3RF Patient Comments: pt. states he checks his sugars when he thinks his sugars high Rx Instructions: Test daily to keep HbA1c less than 6.5%; Dx: E11.9 semaglutide 0.25 mg or 0.5 mg(2 mg/1.5 mL) pen injector 1 mg subcut QWEEK Rx Instructions: 09/27/20 PER [facility] STARTE 0.25 MG SB ONCE A WEEK FOR 28 DAYS, THEN 0.5 MG ONCE A WEEK. PT GOT MED 10/01/20 TIMOTHY 03/22/21-incr dose per [facility] weight/wellness-LH acetaminophen 500 mg tablet 500 mg PO Q6H PRN (Reason: pain) Qty: 60 2RF ibuprofen 600 mg tablet 600 mg PO TID PRN (Reason: pain) Qty: 60 0RF cyclobenzaprine 10 mg tablet 10 mg PO TID PRNQty: 20 0RF Discharge Instructions Instructions: Abscess (ED) Additional Instructions: Call your primary care doctor today to schedule an appointment to follow up on your visit here. Take the antibiotic until it is all gone. Return to the emergency department for new or worsening symptoms, including fever, or if your symptoms do not improve within the next 48 hours. Referrals: Judd Pizarro [Primary Care Provider] - Medical Decision Making 57yo M with HTN, DM on metformin, presenting with rash. 2-3 days of erythema and tenderness just above pubic bone, today with some discharge. Systemically well. Vital signs reassuring. Not septic. On exam has small area of erythema, centrally draining purulent material. Additional small amount of purulent material expressed, afterwards no palpable fluctuance. Not concerning for narcotizing soft tissue infection. Will discharge home on short course of antibiotics. Discharged home; discharge instructions including return precautions were reviewed with patient who verbalized understanding. All questions were answered and they are in full agreement with the plan. HPI General Mode of arrival: ambulatory. Date/Time Provider Initiated Documentation: 11/22/22 12:29. Limitations to Documentation: no limitations. Information obtained by: patient. HPI Narrative: 57yo M with HTN, DM on metformin, presenting with rash. 2-3 days of erythema and tenderness just above pubic bone. Tried black salve without improvement. This morning noted some discharge. He is otherwise in his usual state of health with no fevers, chills, nausea, vomiting, abdominal pain, or other concerns. Related Data Home Medications Medication Instructions Recorded Confirmed lancets 28 gauge (FreeStyle #25 ea 08/29/19 11/22/22 Lancets) nitroglycerin 0.4 mg sublingual 0.4 mg sublingual Q5 MIN PRN X3 09/21/19 11/22/22 tablet (Nitrostat) chest pain #100 tabs albuterol sulfate 90 mcg/actuation 1 - 2 puff inhalation Q4H PRN ##1 10/20/19 11/22/22 aerosol inhaler (Ventolin HFA) cholecalciferol (vitamin D3) 50 2,000 unit PO DAILY #90 tab-caps 06/28/20 11/22/22 mcg (2,000 unit) tablet (Vitamin D3) docusate sodium 100 mg capsule 100 mg PO DAILY 07/06/20 11/22/22 (Colace) polyethylene glycol 3350 17 17 g PO DAILY PRN constipation 07/06/20 11/22/22 gram/dose oral powder (Miralax) atorvastatin 20 mg tablet 20 mg PO DAILY #90 tabs 11/09/20 11/22/22 gemfibrozil 600 mg tablet (Lopid) 600 mg PO DAILY #90 tabs 11/09/20 11/22/22 metformin 500 mg tablet,extended 1,000 mg PO DAILY #180 tab-caps 01/29/21 11/22/22 release 24 hr aspirin 81 mg tablet,delayed 81 mg PO DAILY 90 days ##90 01/31/21 11/22/22 release blood sugar diagnostic (FreeStyle #100 ea 03/14/21 11/22/22 Lite Strips) semaglutide 0.25 mg or 0.5 mg (2 1 mg subcut QWEEK 03/22/21 11/22/22 mg/1.5 mL) subcutaneous pen injector pantoprazole 40 mg tablet,delayed 40 mg PO DAILY #30 tabs 05/23/21 11/22/22 release (Protonix) sucralfate 1 gram tablet (Carafate) 1 g PO HS #30 tabs 05/23/21 11/22/22 lisinopril 10 mg tablet 5 mg PO DAILY 10/11/21 11/22/22 acetaminophen 500 mg tablet 500 mg PO Q6H PRN pain #60 tabs 12/04/21 11/22/22 ibuprofen 600 mg tablet 600 mg PO TID PRN pain #60 tabs 12/04/21 11/22/22 cyclobenzaprine 10 mg tablet 10 mg PO TID PRN #20 tabs 01/23/22 11/22/22 mirabegron 25 mg tablet,extended 25 mg PO DAILY #28 tabs 07/04/22 11/22/22 release 24 hr (Myrbetriq) doxycycline hyclate 100 mg capsule 100 mg PO BID #10 caps 11/22/22 Previous Rx's Medication Instructions Recorded nitroglycerin 0.4 mg sublingual 0.4 mg sublingual Q5 MIN PRN X3 09/21/19 tablet (Nitrostat) chest pain #100 tabs albuterol sulfate 90 mcg/actuation 1 - 2 puff inhalation Q4H PRN ##1 10/20/19 aerosol inhaler (Ventolin HFA) cholecalciferol (vitamin D3) 50 2,000 unit PO DAILY #90 tab-caps 06/28/20 mcg (2,000 unit) tablet (Vitamin D3) atorvastatin 20 mg tablet 20 mg PO DAILY #90 tabs 11/09/20 gemfibrozil 600 mg tablet (Lopid) 600 mg PO DAILY #90 tabs 11/09/20 metformin 500 mg tablet,extended 1,000 mg PO DAILY #180 tab-caps 01/29/21 release 24 hr aspirin 81 mg tablet,delayed 81 mg PO DAILY 90 days ##90 01/31/21 release blood sugar diagnostic (FreeStyle #100 ea 03/14/21 Lite Strips) pantoprazole 40 mg tablet,delayed 40 mg PO DAILY #30 tabs 05/23/21 release (Protonix) sucralfate 1 gram tablet (Carafate) 1 g PO HS #30 tabs 05/23/21 acetaminophen 500 mg tablet 500 mg PO Q6H PRN pain #60 tabs 12/04/21 ibuprofen 600 mg tablet 600 mg PO TID PRN pain #60 tabs 12/04/21 cyclobenzaprine 10 mg tablet 10 mg PO TID PRN #20 tabs 01/23/22 mirabegron 25 mg tablet,extended 25 mg PO DAILY #28 tabs 07/04/22 release 24 hr (Myrbetriq) doxycycline hyclate 100 mg capsule 100 mg PO BID #10 caps 11/22/22 Allergies Allergy/AdvReac Type Severity Reaction Status Date / Time celecoxib Allergy Intermediate Rash, Verified 11/22/22 12:38 urticaria naproxen Allergy Intermediate Itchy Welts Verified 11/22/22 12:38 General Stated Complaint: Cellulitis JAMES: 4 Review of Systems Narrative: see HPI PFSH All Active Problems (Updated 11/22/22 @ 13:17 by Valentine Mckinney MD) Abscess (Acute) Urinary incontinence without sensory awareness (Acute) Abnormal stress test (Chronic) Tobacco use disorder (Chronic) Quit 2019, restarted late in the year Vitamin D deficiency (Chronic) Chronic kidney disease (CKD), stage III (moderate) (Chronic 05/26/16) ? due to DM or to hypertension Diabetes mellitus type 2 in obese (Chronic 02/19/16) presented with polyuria, elevated FS on friend's glucometer, A1c 14 at [facility] ER Essential hypertension (Chronic) goal <140/85 Gastroesophageal reflux disease without esophagitis (Chronic 12/05/11) ER 11/2014 rx PPI Microscopic hematuria (Chronic 02/27/14) CT neg; JUSTINO neg; persists 01/2015 Mixed hyperlipidemia (Chronic 02/16/01) low HDL 27; SL HIGH TG; CV RISK (12/2016): 27%: rec Statin Obesity, unspecified (Chronic 12/05/11) 1993 165#; 180 gives BMI <30 05/06/21 [facility], BMI 35.10 Obstructive sleep apnea (Chronic 03/10/16) [id number], severe in REM sleep Sleep study PSG on 03/10/16: AHI 20.1; SPO2 shailesh 82%; CPAP begun 06/08/16. with improvement in fatigue 06/29/16 restudied higher pressures needed assoc. with treatment of central sleep apnea Complex regional pain syndrome (Chronic 06/27/13) Type 2 diabetes mellitus (Chronic 12/05/11) Chest pain (Acute) Hypertrophy of tonsils (Acute) 02/21/2019 ENT, Dr Lange Dysfunction of left eustachian tube (Acute) 02/21/[address] Lange Edentulous (Acute) Chronic maxillary sinusitis (Acute) History of sinusitis (Acute) Abdominal obesity (Acute) Chest pain (Acute) Bilateral hydrocele (Acute) Abdominal pain (Acute) Lightheadedness (Acute) Hematuria (Acute) Family history of cerebral aneurysm (Chronic) Mother in Mar 2020 Right arm numbness (Acute) Functional bowel disorder (Acute) Diverticulosis (Chronic) Colonoscopy June 2019 Other constipation (Acute ~2020) [facility] Polyp of colon (Acute ~2020) [facility] Right lower quadrant pain (Acute ~2020) [facility] Sinusitis (Acute) High triglycerides (Acute) Dizziness (Acute) Dyspnea (Acute) Gout (Chronic) R 1st PIP joint Umbilical hernia (Acute) History of alcohol abuse (Acute) Burning sensation (Acute) Eructation (Acute) Medical History Paresthesias (10/27/16) nocturnal, bilateral, R>L, Median nerve, probable CTS Sessile colonic polyp (09/26/14) @ transverse colon, sigmoid Surgical History Cardiac Cath (03/24/17) [id number] stents placed Carpal tunnel syndrome of left wrist S/P ECTR: 09/03/2021 Carpal tunnel syndrome of right wrist S/P ECTR: 12/04/2021 Colonoscopy - IV Sedation (09/26/14) [facility] Perri, serrated polyp, fragments of sessile serrated adenoma Cubital tunnel syndrome of both upper extremities S/P L cubital tunnel release: 09/03/2021 S/P R cubital tunnel release: 12/04/2021 Cystoscopy w/ joe retrograde pyelogram (03/01/15) Extraction of cataract (12/17/16) Left Radha Manzo; R 11/19/16 Family History Father , lung cancer at age 67. Essential hypertension Neoplasm Mother Diabetes Essential hypertension Sister No problems noted. Sister No problems noted. Social History Smoking/Tobacco Use Status: Current every day Tobacco Type: cigarettes Tobacco: How many years used: 41 Quit status: considering quitting Smoking risk assessment performed?: Yes Alcohol Intake: former Drug use: Never Substance use type: does not use Household members: significant other Housing: apartment Number of Children: 3 Communication Needs: None Do you need help understanding health information?: Often current occupation: Disabled Current gender identity: male What is your relationship status?: living with partner How often do you talk on the phone with friends or family?: three or more times per week How often do you get together with friends or relatives?: three or more times per week Panel score (0-1 are the most socially isolated patients): 2 What type of physical activity do you participate in: none Seatbelt use: always Drive intox or ride w/intox cab driver: No Working smoke detector in home: No Fire extinguisher in home: No Carbon monox detector in home: No Do you feel safe at home: Yes Do you feel safe in your relationship?: Yes Exam Narrative Exam Narrative: General: Alert, well appearing, well nourished, in no acute distress. Head: Normocephalic, atraumatic Neck: Trachea midline, Neck supple. Cardiac: RRR, no murmurs appreciated Resp: No respiratory distress. CTAB. Abd: Soft, non-distended, nontender : No suprapubic tenderness. Extremities: No deformities. No peripheral edema. Neurologic: GCS 15. Moves all extremities freely against gravity Skin: Lower abdomen medial and slightly right, just above pubis, 3cm oval area of erythema was central area ~3mm draining purlent material. Course Vital Signs Vital signs: Vital Signs Temperature 37.0 C 11/22/22 12:33 Pulse 77 11/22/22 12:33 Respiratory Rate 18 11/22/22 12:33 Blood Pressure 154/52 H 11/22/22 12:33 Pulse Oximetry 100 11/22/22 12:33 Temperature 37.0 C 11/22/22 12:33 Pulse 77 11/22/22 12:33 Respiratory Rate 18 11/22/22 12:33 Blood Pressure 154/52 H 11/22/22 12:33 Blood Pressure Position Supine 11/22/22 12:33 Pulse Oximetry 100 11/22/22 12:33 Oxygen Delivery Method Room Air 11/22/22 12:33 Oxygen Flow Rate 0 11/22/22 12:33 Pain Level 8 11/22/22 12:33 Procedures Abscess I/D Site: Abdomen Technique: Other (self draining, additional material expressed) Amount of fluid expressed (mL): 2 Irrigation: No
[2022-11-22 13:16] VITALS: BP 108/70; PULSE 70
== END 2022-11-22 13:27 | disposition home or self-care (01) ==
PROVIDERS: Emergency Provider Student in an Organized Health Care Education/Training Program; PCP Family Medicine
DX: L02.214 Cutaneous abscess of groin (principal)
CPT/HCPCS: 99283; 99284

== ENCOUNTER 2022-12-26 16:55 | Outpatient (REF) | payer MEDICARE, MEDICAID, SELFPAY | END 2022-12-26 16:56 | disposition home or self-care (01) | LOC: NCHCN 16:55 | PROVIDERS: PCP Family Medicine; Visit Provider Family Medicine | DX: L02.91 Cutaneous abscess, unspecified (principal); B95.62 Methicillin resistant Staphylococcus aureus infection as the cause of diseases classified elsewhere | CPT/HCPCS: 87077; 87070; 87186; 87205 ==

== ENCOUNTER 2023-01-11 10:05 | Emergency (ER) | payer MEDICARE, MEDICAID, SELFPAY ==
[2023-01-11 10:09] VITALS: BP 139/42; PULSE 67; RESP 20; TEMP 36.5; O2SAT 100
[2023-01-11 10:13] VITALS: RESP 20
--- NOTE | 2023-01-11 10:17 | ED.GENADUL_ITS ---
Discharge Plan Disposition Patient Disposition: Home Discharge Details Clinical Impression: Sinusitis Primary Care Provider: Judd Pizarro ED Provider: Diallo Priest Home Meds and New Rx's Prescriptions: New amoxicillin-pot clavulanate 875-125 mg tablet 1 tab PO Q12H Qty: 14 0RF benzonatate 200 mg capsule 200 mg PO TID PRN (Reason: cough) Qty: 30 0RF Continued (DME) lancets [FreeStyle Lancets] 28 gauge misc See Rx Instructions .ROUTE .MEDSUPPLY Qty: 25 Rx Instructions: As directed albuterol sulfate [Ventolin HFA] 90 mcg/actuation HFA aerosol inhaler 1 - 2 puff Inhalation Q4H PRN Qty: 1 6RF Patient Comments: 09/03/21 pt reports he hasnt used in @ 5 months Rx Instructions: PHARMACY: PLEASE DISPENSE ALBUTEROL BRAND COVERED BY INSURANCE gemfibrozil [Lopid] 600 mg tablet 600 mg PO DAILY Qty: 90 3RF atorvastatin 20 mg tablet 20 mg PO DAILY Qty: 90 3RF pantoprazole [Protonix] 40 mg tablet,delayed release (DR/EC) 40 mg PO DAILY Qty: 30 12RF sucralfate [Carafate] 1 gram tablet 1 g PO HS Qty: 30 12RF Myrbetriq 25 mg tablet extended release 24 hr 25 mg PO DAILY Qty: 28 0RF lisinopril 10 mg tablet 5 mg PO DAILY nitroglycerin [Nitrostat] 0.4 mg tablet, sublingual 0.4 mg Sublingual Q5 MIN PRN X3 Qty: 100 1RF Patient Comments: 09/03/21 pt reports he hasnt taken in @ 3 months Rx Instructions: 1 tab sublingual q5m PRN x3 chest pain cholecalciferol (vitamin D3) [Vitamin D3] 50 mcg (2,000 unit) tablet 2,000 unit PO DAILY Qty: 90 3RF docusate sodium [Colace] 100 mg capsule 100 mg PO DAILY Rx Instructions: [facility] polyethylene glycol 3350 [Miralax] 17 gram/dose powder 17 g PO DAILY PRN (Reason: constipation) Rx Instructions: [facility] metformin 500 mg tablet extended release 24 hr 1,000 mg PO DAILY Qty: 180 3RF Rx Instructions: for diabetes, two tabs in the morning aspirin 81 mg tablet,delayed release (DR/EC) 81 mg PO DAILY 90 Days Qty: 90 3RF (DME) FreeStyle Lite Strips Strip See Rx Instructions .ROUTE .MEDSUPPLY Qty: 100 3RF Patient Comments: pt. states he checks his sugars when he thinks his sugars high Rx Instructions: Test daily to keep HbA1c less than 6.5%; Dx: E11.9 semaglutide 0.25 mg or 0.5 mg(2 mg/1.5 mL) pen injector 1 mg subcut QWEEK Rx Instructions: 09/27/20 [facility] 0.25 MG SB ONCE A WEEK FOR 28 DAYS, THEN 0.5 MG ONCE A WEEK. PT GOT MED 10/01/20 TIMOTHY 03/22/21-incr dose per [facility] acetaminophen 500 mg tablet 500 mg PO Q6H PRN (Reason: pain) Qty: 60 2RF ibuprofen 600 mg tablet 600 mg PO TID PRN (Reason: pain) Qty: 60 0RF cyclobenzaprine 10 mg tablet 10 mg PO TID PRNQty: 20 0RF Discharge Instructions Instructions: Sinusitis (ED) Additional Instructions: You may continue to use [id number] Mucinex, stay well-hydrated, and continue to take your normally prescribed medications on top of the antibiotic. You may use the prescribed cough medication but if this is not effective you may discontinue this medication. If you have any new or significant worsening of symptoms feel free to return the emergency department for reassessment otherwise follow-up with your primary care provider as needed. Referrals: Judd Pizarro [Primary Care Provider] - Discharge Data Discharge Date/Time-TO BE ENTERED AT DEPARTURE: 01/11/23 10:33 Medical Decision Making Patient presenting to the clinic for chief complaint of cold symptoms. Patient reports symptoms have been going on for the past 7 days. reports cough, sinus pressure, nasal congestion. Physical exam shows overall noncontributory physical exam with no signs of severe distress, clear lung sounds but slightly diminished due to emergency department environment difficulty here bases normal HEENT exam. Patient has no signs of meningitis, peritonsillar abscess, retropharyngeal abscess, Dinesh's angina, or life-threatening Airway infection. Patient does have significant past medical history of sleep apnea with CPAP use, diabetes, hypertension, and is a smoker. Given the patient has had symptoms for 1 week, now presenting due to lack of improvement and continued sinus pain I am concerned for high risk of secondary bacterial infection in the setting of most likely viral infection initially. Given patient's risk factors will place patient on Augmentin. To help with patient's cough will give Tessalon Perles otherwise recommended [id number] Mucinex. Vital signs are stable with no signs of tachypnea, tachycardia, or hypoxia and patient is afebrile at this time so do feel that outpatient disposition is appropriate. After discussion of diagnosis and plan of care patient has no further needs, questions, or concerns and states clear understanding to return to the emergency department for any worsening symptoms. This documentation was generated using [employer] dictation system, please disregard any oddities of phrase or misspellings. HPI General Mode of arrival: ambulatory . Date/Time Provider Initiated Documentation: 01/11/23 10:17 . Limitations to Documentation: no limitations . Information obtained by: patient and RN notes reviewed . History of Present Illness 57 year old M presents to the emergency department with the chief complaint of Sinus pain, cough, congestion, described as moderate, Patient started experiencing this week(s) (1) and it has been constant. No relieving factors improve symptom(s), No exacerbating factors reported . Related Data Home Medications Medication Instructions Recorded Confirmed lancets 28 gauge (FreeStyle #25 ea 08/29/19 11/22/22 Lancets) nitroglycerin 0.4 mg sublingual 0.4 mg sublingual Q5 MIN PRN X3 09/21/19 01/11/23 tablet (Nitrostat) chest pain #100 tabs albuterol sulfate 90 mcg/actuation 1 - 2 puff inhalation Q4H PRN ##1 10/20/19 01/11/23 aerosol inhaler (Ventolin HFA) cholecalciferol (vitamin D3) 50 2,000 unit PO DAILY #90 tab-caps 06/28/20 01/11/23 mcg (2,000 unit) tablet (Vitamin D3) docusate sodium 100 mg capsule 100 mg PO DAILY 07/06/20 01/11/23 (Colace) polyethylene glycol 3350 17 17 g PO DAILY PRN constipation 07/06/20 01/11/23 gram/dose oral powder (Miralax) atorvastatin 20 mg tablet 20 mg PO DAILY #90 tabs 11/09/20 01/11/23 gemfibrozil 600 mg tablet (Lopid) 600 mg PO DAILY #90 tabs 11/09/20 01/11/23 metformin 500 mg tablet,extended 1,000 mg (2 x 500 mg) PO DAILY 01/29/21 01/11/23 release 24 hr #180 tab-caps aspirin 81 mg tablet,delayed 81 mg PO DAILY 90 days ##90 01/31/21 01/11/23 release blood sugar diagnostic (FreeStyle #100 ea 03/14/21 11/22/22 Lite Strips) semaglutide 0.25 mg or 0.5 mg (2 1 mg subcut QWEEK 03/22/21 01/11/23 mg/1.5 mL) subcutaneous pen injector pantoprazole 40 mg tablet,delayed 40 mg PO DAILY #30 tabs 05/23/21 01/11/23 release (Protonix) sucralfate 1 gram tablet (Carafate) 1 g PO HS #30 tabs 05/23/21 01/11/23 lisinopril 10 mg tablet 5 mg PO DAILY 10/11/21 01/11/23 acetaminophen 500 mg tablet 500 mg PO Q6H PRN pain #60 tabs 12/04/21 01/11/23 ibuprofen 600 mg tablet 600 mg PO TID PRN pain #60 tabs 12/04/21 01/11/23 cyclobenzaprine 10 mg tablet 10 mg PO TID PRN #20 tabs 01/23/22 01/11/23 mirabegron 25 mg tablet,extended 25 mg PO DAILY #28 tabs 07/04/22 01/11/23 release 24 hr (Myrbetriq) amoxicillin 875 mg-potassium 1 tab PO Q12H #14 tabs 01/11/23 clavulanate 125 mg tablet benzonatate 200 mg capsule 200 mg PO TID PRN cough #30 caps 01/11/23 Previous Rx's Medication Instructions Recorded nitroglycerin 0.4 mg sublingual 0.4 mg sublingual Q5 MIN PRN X3 09/21/19 tablet (Nitrostat) chest pain #100 tabs albuterol sulfate 90 mcg/actuation 1 - 2 puff inhalation Q4H PRN ##1 10/20/19 aerosol inhaler (Ventolin HFA) cholecalciferol (vitamin D3) 50 2,000 unit PO DAILY #90 tab-caps 06/28/20 mcg (2,000 unit) tablet (Vitamin D3) atorvastatin 20 mg tablet 20 mg PO DAILY #90 tabs 11/09/20 gemfibrozil 600 mg tablet (Lopid) 600 mg PO DAILY #90 tabs 11/09/20 metformin 500 mg tablet,extended 1,000 mg (2 x 500 mg) PO DAILY 01/29/21 release 24 hr #180 tab-caps aspirin 81 mg tablet,delayed 81 mg PO DAILY 90 days ##90 01/31/21 release blood sugar diagnostic (FreeStyle #100 ea 03/14/21 Lite Strips) pantoprazole 40 mg tablet,delayed 40 mg PO DAILY #30 tabs 05/23/21 release (Protonix) sucralfate 1 gram tablet (Carafate) 1 g PO HS #30 tabs 05/23/21 acetaminophen 500 mg tablet 500 mg PO Q6H PRN pain #60 tabs 12/04/21 ibuprofen 600 mg tablet 600 mg PO TID PRN pain #60 tabs 12/04/21 cyclobenzaprine 10 mg tablet 10 mg PO TID PRN #20 tabs 01/23/22 mirabegron 25 mg tablet,extended 25 mg PO DAILY #28 tabs 07/04/22 release 24 hr (Myrbetriq) amoxicillin 875 mg-potassium 1 tab PO Q12H #14 tabs 01/11/23 clavulanate 125 mg tablet benzonatate 200 mg capsule 200 mg PO TID PRN cough #30 caps 01/11/23 Allergies Allergy/AdvReac Type Severity Reaction Status Date / Time celecoxib Allergy Intermediate Rash, Verified 01/11/23 10:12 urticaria naproxen Allergy Intermediate Itchy Welts Verified 01/11/23 10:12 General Stated Complaint: GenMedical JAMES: 4 Review of Systems Constitutional Constitutional: Denies body ache(s), Denies chills, Denies fever(s), Denies hea dache(s) and Reports malaise Eyes Eyes: Denies eye discharge ENT Ears, Nose, Mouth, and Throat: Reports as per HPI, Denies ear discharge, Denies otalgia, Denies headache(s), Reports nasal congestion, Denies neck pain, Reports sinus pain, Reports sinus pressure, Denies sore throat and Denies throat swe lling Cardiovascular Cardiovascular: Denies chest pain and Denies dyspnea Respiratory Respiratory: Reports cough and Denies dyspnea Musculoskeletal Musculoskeletal: Denies joint swelling and Denies neck pain Integumentary/Breasts Skin/Breast: Denies rash Neurologic Neurologic: Denies headache(s) Allergic/Immunologic Allergic/Immunologic: Denies throat swelling PFSH All Active Problems (Updated 01/11/23 @ 10:23 by Diallo Priest NP) Sinusitis (Acute) Urinary incontinence without sensory awareness (Acute) Abnormal stress test (Chronic) Tobacco use disorder (Chronic) Quit 2019, restarted late in the year Vitamin D deficiency (Chronic) Chronic kidney disease (CKD), stage III (moderate) (Chronic 05/26/16) ? due to DM or to hypertension Diabetes mellitus type 2 in obese (Chronic 02/19/16) presented with polyuria, elevated FS on friend's glucometer, A1c 14 at [facility] Essential hypertension (Chronic) goal <140/85 Gastroesophageal reflux disease without esophagitis (Chronic 12/05/11) ER 11/2014 rx PPI Microscopic hematuria (Chronic 02/27/14) CT neg; JUSTINO neg; persists 01/2015 Mixed hyperlipidemia (Chronic 02/16/01) low HDL 27; SL HIGH TG; CV RISK (12/2016): 27%: rec Statin Obesity, unspecified (Chronic 12/05/11) 1993 165#; 180 gives BMI <30 05/06/21 [facility], BMI 35.10 Obstructive sleep apnea (Chronic 03/10/16) [id number], severe in REM sleep Sleep study PSG on 03/10/16: AHI 20.1; SPO2 shailesh 82%; CPAP begun 06/08/16. with improvement in fatigue 06/29/16 restudied higher pressures needed assoc. with treatment of central sleep apnea Complex regional pain syndrome (Chronic 06/27/13) Type 2 diabetes mellitus (Chronic 12/05/11) Chest pain (Acute) Hypertrophy of tonsils (Acute) 02/21/2019 ENT, Dr Lange Dysfunction of left eustachian tube (Acute) 02/21/[address] Lange Edentulous (Acute) Chronic maxillary sinusitis (Acute) History of sinusitis (Acute) Abdominal obesity (Acute) Chest pain (Acute) Bilateral hydrocele (Acute) Abdominal pain (Acute) Lightheadedness (Acute) Hematuria (Acute) Family history of cerebral aneurysm (Chronic) Mother in Mar 2020 Right arm numbness (Acute) Functional bowel disorder (Acute) Diverticulosis (Chronic) Colonoscopy June 2019 Other constipation (Acute ~2020) [facility] Polyp of colon (Acute ~2020) [facility] Right lower quadrant pain (Acute ~2020) [facility] Sinusitis (Acute) High triglycerides (Acute) Dizziness (Acute) Dyspnea (Acute) Gout (Chronic) R 1st PIP joint Umbilical hernia (Acute) History of alcohol abuse (Acute) Burning sensation (Acute) Eructation (Acute) Medical History Sessile colonic polyp (09/26/14) @ transverse colon, sigmoid Paresthesias (10/27/16) nocturnal, bilateral, R>L, Median nerve, probable CTS Surgical History Cubital tunnel syndrome of both upper extremities S/P L cubital tunnel release: 09/03/2021 S/P R cubital tunnel release: 12/04/2021 Carpal tunnel syndrome of right wrist S/P ECTR: 12/04/2021 Carpal tunnel syndrome of left wrist S/P ECTR: 09/03/2021 Cystoscopy w/ joe retrograde pyelogram (03/01/15) Colonoscopy - IV Sedation (09/26/14) [facility] Perri, serrated polyp, fragments of sessile serrated adenoma Extraction of cataract (12/17/16) Left Radha Manzo; R 11/19/16 Cardiac Cath (03/24/17) [id number] stents placed Family History Father , lung cancer at age 67. Essential hypertension Neoplasm Mother Diabetes Essential hypertension Sister No problems noted. Sister No problems noted. Social History Smoking/Tobacco Use Status: Current every day Tobacco Type: cigarettes Tobacco: How many years used: 41 Quit status: considering quitting Smoking risk assessment performed?: Yes Alcohol Intake: former Drug use: Never Substance use type: does not use Household members: significant other Housing: apartment Number of Children: 3 Communication Needs: None Do you need help understanding health information?: Often current occupation: Disabled Current gender identity: male What is your relationship status?: living with partner How often do you talk on the phone with friends or family?: three or more times per week How often do you get together with friends or relatives?: three or more times per week Panel score (0-1 are the most socially isolated patients): 2 What type of physical activity do you participate in: none Seatbelt use: always Drive intox or ride w/intox 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 food 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: No Working smoke detector in home: No Fire extinguisher in home: No Carbon monox detector in home: No Do you feel safe at home: Yes Do you feel safe in your relationship?: Yes Exam Const General: cooperative, comfortable and no acute distress Orientation: alert and awake HENNY Head: normal to inspection, normocephalic and atraumatic Ears: hearing grossly normal bilaterally and TM's normal bilaterally General nose exam: external nose normal Face and sinus: sinuses nontender and no erythema Mouth: oral mucosae normal, no drooling, no muffled voice and no trismus Throat: posterior oropharynx normal Neck Neck: normal visual inspection, full ROM, no lymphadenopathy, no meningeal signs, trachea midline and supple Resp Effort & Inspection: normal respiratory effort and able to speak in complete sentences Auscultation: clear to auscultation bilaterally Cardio Rate: regular rate Rhythm: regular rhythm Heart Sounds: S1 normal, S2 normal, normal S1 and S2, no click, no gallops, no murmurs and no rubs Skin General skin exam: no rashes or lesions noted and dry skin (warm) Neuro General: patient alert, patient awake, patient oriented x3, gait normal and moves all extremities Cognition: normal cognition Speech: speech normal Course Vital Signs Vital signs: Vital Signs Temperature 36.5 C 01/11/23 10:09 Pulse 67 01/11/23 10:09 Respiratory Rate 20 01/11/23 10:09 Blood Pressure 139/42 L 01/11/23 10:09 Pulse Oximetry 100 01/11/23 10:09 Temperature 36.5 C 01/11/23 10:09 Temperature Source Temporal Artery Scan 01/11/23 10:09 Pulse 67 01/11/23 10:09 Respiratory Rate 20 01/11/23 10:13 Respiratory Effort Normal, Non-Labored 01/11/23 10:13 Respiratory Depth Normal 01/11/23 10:13 Respiratory Pattern Normal 01/11/23 10:13 Blood Pressure 139/42 L 01/11/23 10:09 Blood Pressure Position Sitting 01/11/23 10:09 Pulse Oximetry 100 01/11/23 10:09 Oxygen Delivery Method Room Air 01/11/23 10:09 Oxygen Flow Rate 0 01/11/23 10:09
== END 2023-01-11 10:33 | disposition home or self-care (01) ==
PROVIDERS: Emergency Provider Nurse Practitioner Family; PCP Family Medicine
DX: J32.9 Chronic sinusitis, unspecified (principal); G47.33 Obstructive sleep apnea (adult) (pediatric); E11.22 Type 2 diabetes mellitus with diabetic chronic kidney disease; R05.9 Cough, unspecified; F17.200 Nicotine dependence, unspecified, uncomplicated
CPT/HCPCS: 99283

== ENCOUNTER 2023-02-21 12:03 | Emergency (ER) | payer MEDICARE, MEDICAID, SELFPAY ==
[2023-02-21] VITALS (8 sets, daily range): BP systolic 120–167; BP diastolic 58–77; PULSE 64–71; RESP 18–20; TEMP 36.5; O2SAT 96–100
--- NOTE | 2023-02-21 12:00 | RT.EKG_ITS ---
APPROVED REPORT Exam: Resting ECG Reason for Exam: dizzy Patient Location: E HR:61 bpm ECG Measurements Heart Rate 61 AXIS AK 141 P 2 QRSd 89 QRS -1 QT 407 T 26 QTc 411 Conclusion Sinus rhythm...normal P axis, V-rate 60- 99 NSR, Normal axis, normal intervals, no STEMI. Small Q waves in III and aVF. no significant changes fr om previous
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
--- NOTE | 2023-02-21 12:30 | DI.RAD_ITS ---
Exam(s) XR PORTABLE CHEST AP EXAM: XR PORTABLE CHEST AP CLINICAL HISTORY: near syncope TECHNIQUE: 2D digital imaging was performed of the chest. One image was obtained. An AP view was ob tained. COMPARISON: CR XR PORTABLE CHEST AP from 04/23/2020 CR XR CHEST 2V PA LATERAL from 11/28/[address] CHEST W from 09/12/2022 FINDINGS: MEDIASTINUM: Normal. HEART: Normal. PULMONARY VASCULATURE: Normal. LUNGS: Clear. PLEURAL SPACE: No pleural effusion or pneumothorax. BONE:Within normal limits for the patient's age. OTHER FINDINGS:Normal. IMPRESSION: No acute pulmonary findings. DATA REPOSITORY: RADIATION DOSE DELIVERED:
[2023-02-21 13:03] LABS: Abs Immature Grans 0.04 10^3/uL (0.0-0.06); Absolute Basophil Count 0.05 10^3/uL (0.0-0.2); Absolute Eosinophil Count 0.12 10^3/uL (0.0-0.7); Absolute Lymphocyte Count 1.51 10^3/uL (1.2-3.4); Absolute Monocyte Count 0.96 10^3/uL (0.1-0.8); Absolute Neutrophil Count 2.41 10^3/uL (1.2-6.7); Eosinophils % 2.4; HCT 47.6 % (40.0-50.0); HGB 16.2 g/dL (13.5-17.5); Immature Grans % 0.8; Lymphocytes % 29.7; MCH 30.1 pg (27.0-33.0); MCV 89 fL (80-95); MPV 9.9 fL (8.0-11.0); Monocytes % 18.9; Neutrophils % 47.2; Platelet Count 178 10^3/uL (130-400); RBC 5.38 10^6/uL (4.36-5.78); RDW 13.1 % (11.8-14.1); RDW-SD 42.8 fL; WBC 5.09 10^3/uL (4.4-10.8)
[2023-02-21] MEDS: Normal Saline 1,000 ML 1000 ML IV (13:06)
[2023-02-21 13:32] LABS: ALT 25 U/L (16-63); AST 17 U/L (15-37); Albumin 3.7 g/dL (3.4-5.0); Alkaline Phosphatase 102 U/L (46-116); Anion Gap 8.8 mmol/L (3-11); BUN 13 mg/dL (7-18); Bilirubin, Total 0.5 mg/dL (0.2-1.0); CO2 26.2 mmol/L (21.0-32.0); CREATININE 1.3 mg/dL (0.70-1.30); Calcium 9.1 mg/dL (8.5-10.1); Chloride 103 mmol/L (98-107); Estimated GFR 63.28 (mL/min/1.73m2); Glucose 94 mg/dL (74-106); Magnesium 2.1 mg/dL (1.8-2.4); Potassium 3.8 mmol/L (3.5-5.1); Sodium 138 mmol/L (136-145); TSH 1.21 uIU/mL (0.36-3.74); Total Protein 7.4 g/dL (6.4-8.2); Troponin I < 50 ng/L (<or=60)
[2023-02-21 13:57] LABS: Bilirubin Negative (Negative); Blood Moderate (Negative); Clarity Clear (Clear); Glucose Negative (Negative); Ketones Negative (Negative); Leukocyte Esterase Negative (Negative); Nitrite Negative (Negative); Urobilinogen 0.2 mg/dL (Up to 0.2)
[2023-02-21 14:06] LABS: Bacteria Rare HPF (Negative); C & S Indicated? No; Casts Negative LPF (Negative); Crystals Negative HPF (Negative); Epithelial Cells Rare HPF (Negative); Mucus Negative (Negative); WBC 0-2 HPF (0-5)
[2023-02-21 14:13] LABS: COVID-19 PCR Negative (Negative); Influenza A PCR Positive (Negative); Influenza B PCR Negative (Negative); RSV PCR Negative (Negative)
[2023-02-21 14:15] LABS: Source Nasopharynx
--- NOTE | 2023-02-21 14:51 | DI.VRAD_ITS ---
PROCEDURE INFORMATION: Exam: XR Chest Exam date and time: 02/21/2023 1:51 PM Age: 57 years old Clinical indication: Other: Dizzy TECHNIQUE: Imaging protocol: Radiologic exam of the chest. Views: 1 view. COMPARISON: CT CHEST W 09/12/2022 2:42 PM FINDINGS: Lungs: Unremarkable. No consolidation. Pleural spaces: Unremarkable. No pleural effusion. No pneumothorax. Heart/Mediastinum: Unremarkable. No cardiomegaly. Bones/joints: Unremarkable. IMPRESSION: No acute findings. Dictated and Authenticated by: Leo Saez MD. Ordering:CHLOE Rodgers MD
[2023-02-21] MEDS: Oseltamivir 75 MG CAP PO (15:05)
[2023-02-21 15:24] LABS: Troponin I < 50 ng/L (<or=60)
--- NOTE | 2023-02-21 15:56 | NUR.NOTE ---
Referral faxed to [facility] Urology for h ematuria in 2 weeks. Nursing Note:
== END 2023-02-21 16:15 | disposition home or self-care (01) ==
PROVIDERS: Emergency Provider Emergency Medicine Emergency Medical Services; PCP Family Medicine
DX: R42 Dizziness and giddiness (principal); J10.1 Influenza due to other identified influenza virus with other respiratory manifestations; R31.9 Hematuria, unspecified; I10 Essential (primary) hypertension; E11.69 Type 2 diabetes mellitus with other specified complication; E66.9 Obesity, unspecified; F17.200 Nicotine dependence, unspecified, uncomplicated
CPT/HCPCS: 36415; 80053; 87637; 93005; 96360; 99284; 71045; 81003; 81015; 83735; 84443; 84484; 85025; 93010; 99283

== ENCOUNTER → 2023-03-31 15:01 | Outpatient (BNVA) | payer MEDICARE, MEDICAID, SELFPAY | PROVIDERS: PCP Family Medicine; Referring Provider Family Medicine; Visit Provider Urology | DX: R35.0 Frequency of micturition (principal); Z87.898 Personal history of other specified conditions | CPT/HCPCS: 51798; 81003; 99213 ==

== ENCOUNTER 2023-06-19 23:50 | Emergency (ER) | payer MEDICARE, MEDICAID, SELFPAY ==
[2023-06-19 23:50] VITALS: BP 105/34; PULSE 76; RESP 22; TEMP 36.6; O2SAT 96
[2023-06-20] VITALS (67 sets, daily range): BP systolic 101–128; BP diastolic 45–78; PULSE 61–75; RESP 7–29; TEMP 36.6
--- NOTE | 2023-06-20 00:30 | DI.CT_ITS ---
Exam(s) CT ABDOMEN PELVIS W EXAM: CT ABDOMEN PELVIS W CLINICAL HISTORY: RLQ abd pain. TECHNIQUE: Imaging Protocol: Axial computed tomography images with coronal and sagittal reformatted images were created and reviewed CONTRAST MATERIAL: Intravenous: Omnipaque 350 Contrast volume:100 ml Oral: no COMPARISON: CT CT ABDOMEN PELVIS WO/W from 04/18/2022 FINDINGS: ABDOMEN and PELVIS: Lung Bases: No acute findings. Liver mild hepatic steatosis. No suspicious mass. Gallbladder and biliary tract: No radiodense calculus. No biliary dilation. Pancreas: Normal density. No abnormal calcifications or inflammatory process. No evidence of mass. Spleen: Normal. Kidneys: Normal size, contour and axis. No radiodense stones. No obstructive uropathy. No suspicious masses seen. Stable bilateral renal cysts. Adrenal glands: No masses seen. Vasculature: Abdominal aorta non-dilated. Soft tissues: Unremarkable. Bladder: No gross wall thickening. No calculi.No focal mass. Bowel: Duodenal diverticulum. No obstruction. No bowel wall thickening. Appendix normal.Diverticul osis. No evidence of diverticulitis. Peritoneal cavity: No ascites. No focal collection. Mild right lower quadrant mesenteric stranding. Mildly enlarged right lower quadrant mesenteric lymph nodes. Bones: Unremarkable for age. Reproductive organs: Unremarkable. Lymph nodes: Mildly enlarged right lower quadrant mesenteric lymph nodes. The findings could represe nt mesenteric panniculitis. IMPRESSION:: Mildly enlarged right lower quadrant mesenteric lymph nodes. The findings could repres ent mesenteric panniculitis. RADIATION DOSE DELIVERED: Total DLP DATA REPOSITORY: All CT scans at this facility are submitted to the National Radiology Data Registry (NRDR) Dose Index Registry (DIR) with the [employer] (ACR). RADIATION OPTIMIZATION: All CT scans at this facility use at least one of these dose optimization te chniques: automated exposure control; mA and/or kV adjustment per patient size (includes targeted exa ms where dose is matched to clinical indication); or iterative reconstruction.
[2023-06-20 00:38] LABS: Abs Immature Grans 0.13 10^3/uL (0.0-0.06); Absolute Basophil Count 0.07 10^3/uL (0.0-0.2); Absolute Eosinophil Count 0.23 10^3/uL (0.0-0.7); Absolute Lymphocyte Count 2.72 10^3/uL (1.2-3.4); Absolute Monocyte Count 1.17 10^3/uL (0.1-0.8); Absolute Neutrophil Count 6.79 10^3/uL (1.2-6.7); Basophils % 0.6 %; Eosinophils % 2.1 %; HCT 47.2 % (40.0-50.0); HGB 15.8 g/dL (13.5-17.5); Immature Grans % 1.2 %; Lymphocytes % 24.5 %; MCH 30.1 pg (27.0-33.0); MCHC 33.5 % (32.0-36.0); MCV 90 fL (80-95); MPV 10.1 fL (8.0-11.0); Monocytes % 10.5 %; Neutrophils % 61.1 %; Platelet Count 203 10^3/uL (130-400); RBC 5.25 10^6/uL (4.36-5.78); RDW-SD 42.7 fL; WBC 11.11 10^3/uL (4.4-10.8)
[2023-06-20 00:39] LABS: Lactate 1.5 mmol/L (0.6-1.4)
[2023-06-20 00:56] LABS: ALT 28 U/L (16-63); AST 12 U/L (15-37); Albumin 3.4 g/dL (3.4-5.0); Alkaline Phosphatase 115 U/L (46-116); Anion Gap 8.4 mmol/L (3-11); BUN 22 mg/dL (7-18); Bilirubin, Total 0.3 mg/dL (0.2-1.0); CO2 25.6 mmol/L (21.0-32.0); CREATININE 1.7 mg/dL (0.70-1.30); Calcium 8.5 mg/dL (8.5-10.1); Chloride 105 mmol/L (98-107); Estimated GFR 45.86 (mL/min/1.73m2); Glucose 144 mg/dL (74-106); Lipase 167 U/L (16-77); Magnesium 1.8 mg/dL (1.8-2.4); Potassium 3.5 mmol/L (3.5-5.1); Sodium 139 mmol/L (136-145); Total Protein 6.5 g/dL (6.4-8.2)
--- NOTE | 2023-06-20 01:06 | ED.GENADUL_ITS ---
Discharge Plan Disposition Patient Disposition: Home Condition: Good Discharge Details Clinical Impression: Enteritis Primary Care Provider: Judd Pizarro ED Provider: Valentine Mckinney Home Meds and New Rx's Prescriptions: Continued (DME) lancets [FreeStyle Lancets] 28 gauge misc See Rx Instructions .ROUTE .MEDSUPPLY Qty: 25 Rx Instructions: As directed albuterol sulfate [Ventolin HFA] 90 mcg/actuation HFA aerosol inhaler 1 - 2 puff Inhalation Q4H PRN Qty: 1 6RF Patient Comments: 09/03/21 pt reports he hasnt used in @ 5 months Rx Instructions: PHARMACY: PLEASE DISPENSE ALBUTEROL BRAND COVERED BY INSURANCE gemfibrozil [Lopid] 600 mg tablet 600 mg PO DAILY Qty: 90 3RF atorvastatin 20 mg tablet 20 mg PO DAILY Qty: 90 3RF pantoprazole [Protonix] 40 mg tablet,delayed release (DR/EC) 40 mg PO DAILY Qty: 30 12RF sucralfate [Carafate] 1 gram tablet 1 g PO HS Qty: 30 12RF lisinopril 10 mg tablet 5 mg PO DAILY tamsulosin 0.4 mg capsule 0.4 mg PO QHS nitroglycerin [Nitrostat] 0.4 mg tablet, sublingual 0.4 mg Sublingual Q5 MIN PRN X3 Qty: 100 1RF Patient Comments: 09/03/21 pt reports he hasnt taken in @ 3 months Rx Instructions: 1 tab sublingual q5m PRN x3 chest pain cholecalciferol (vitamin D3) [Vitamin D3] 50 mcg (2,000 unit) tablet 2,000 unit PO DAILY Qty: 90 3RF metformin 500 mg tablet extended release 24 hr 1,000 mg PO DAILY Qty: 180 3RF Rx Instructions: for diabetes, two tabs in the morning aspirin 81 mg tablet,delayed release (DR/EC) 81 mg PO DAILY 90 Days Qty: 90 3RF (DME) FreeStyle Lite Strips Strip See Rx Instructions .ROUTE .MEDSUPPLY Qty: 100 3RF Patient Comments: pt. states he checks his sugars when he thinks his sugars high Rx Instructions: Test daily to keep HbA1c less than 6.5%; Dx: E11.9 semaglutide 0.25 mg or 0.5 mg(2 mg/1.5 mL) pen injector 1 mg subcut QWEEK Rx Instructions: 09/27/20 PER [facility] 0.25 MG SB ONCE A WEEK FOR 28 DAYS, THEN 0.5 MG ONCE A WEEK. PT GOT MED 10/01/20 TIMOTHY 03/22/21-incr dose per [facility] acetaminophen 500 mg tablet 500 mg PO Q6H PRN (Reason: pain) Qty: 60 2RF ibuprofen 600 mg tablet 600 mg PO TID PRN (Reason: pain) Qty: 60 0RF cyclobenzaprine 10 mg tablet 10 mg PO TID PRNQty: 20 0RF Discharge Instructions Instructions: Enteritis (ED) Additional Instructions: Tylenol and ibuprofen over the counter for pain; follow the directions on the bottle. Call your primary care doctor on Thursday to schedule an appointment within one week to followup on your visit here and to discuss your CT results including cysts on your kidney. They may want to repeat your CT scan to make sure you are getting better. Return to the emergency department for new or worsening symptoms including fever, inability to keep down fluids, new/worse/different pain, or if you have any other concerns. Referrals: Judd Pizarro [Primary Care Provider] - [facility] General Mode of arrival: EMS . Date/Time Provider Initiated Documentation: 06/19/23 23:55 . Limitations to Documentation: no limitations . Information obtained by: patient and EMS . HPI Narrative: 57yo M with hx CAD, T2DM, HTN, HLD, GERD, presenting for abdominal pain. Woke tonight with right lower abdominal pain; called 911. No medications taken at home; did receive 1g tylenol from EMS prior to arrival, reports pain has resolved. When present pain was moderate, located on the right and lower, non- radiating, with no alleviating or aggravating factors. No nausea, vomiting, dysuria, hematuria, penile discharge, scrotal pain, constipation, or diarrhea. No trauma recently, Otherwise in his usual state of health with no fevers, chills, rash, chest pain, shortness of breath, or other concerns. Related Data Home Medications Medication Instructions Recorded Confirmed lancets 28 gauge (FreeStyle #25 ea 08/29/19 03/31/23 Lancets) nitroglycerin 0.4 mg sublingual 0.4 mg sublingual Q5 MIN PRN X3 09/21/19 06/19/23 tablet (Nitrostat) chest pain #100 tabs albuterol sulfate 90 mcg/actuation 1 - 2 puff inhalation Q4H PRN ##1 10/20/19 06/19/23 aerosol inhaler (Ventolin HFA) cholecalciferol (vitamin D3) 50 2,000 unit PO DAILY #90 tab-caps 06/28/20 06/19/23 mcg (2,000 unit) tablet (Vitamin D3) atorvastatin 20 mg tablet 20 mg PO DAILY #90 tabs 11/09/20 06/19/23 gemfibrozil 600 mg tablet (Lopid) 600 mg PO DAILY #90 tabs 11/09/20 06/19/23 metformin 500 mg tablet,extended 1,000 mg (2 x 500 mg) PO DAILY 01/29/21 06/19/23 release 24 hr #180 tab-caps aspirin 81 mg tablet,delayed 81 mg PO DAILY 90 days ##90 01/31/21 06/19/23 release blood sugar diagnostic (FreeStyle #100 ea 03/14/21 03/31/23 Lite Strips) semaglutide 0.25 mg or 0.5 mg (2 1 mg subcut QWEEK 03/22/21 06/19/23 mg/1.5 mL) subcutaneous pen injector pantoprazole 40 mg tablet,delayed 40 mg PO DAILY #30 tabs 05/23/21 06/19/23 release (Protonix) sucralfate 1 gram tablet (Carafate) 1 g PO HS #30 tabs 05/23/21 06/19/23 lisinopril 10 mg tablet 5 mg PO DAILY 10/11/21 06/19/23 acetaminophen 500 mg tablet 500 mg PO Q6H PRN pain #60 tabs 12/04/21 06/19/23 ibuprofen 600 mg tablet 600 mg PO TID PRN pain #60 tabs 12/04/21 06/19/23 cyclobenzaprine 10 mg tablet 10 mg PO TID PRN #20 tabs 01/23/22 06/19/23 tamsulosin 0.4 mg capsule 0.4 mg PO QHS 03/31/23 06/19/23 Previous Rx's Medication Instructions Recorded nitroglycerin 0.4 mg sublingual 0.4 mg sublingual Q5 MIN PRN X3 09/21/19 tablet (Nitrostat) chest pain #100 tabs albuterol sulfate 90 mcg/actuation 1 - 2 puff inhalation Q4H PRN ##1 10/20/19 aerosol inhaler (Ventolin HFA) cholecalciferol (vitamin D3) 50 2,000 unit PO DAILY #90 tab-caps 06/28/20 mcg (2,000 unit) tablet (Vitamin D3) atorvastatin 20 mg tablet 20 mg PO DAILY #90 tabs 11/09/20 gemfibrozil 600 mg tablet (Lopid) 600 mg PO DAILY #90 tabs 11/09/20 metformin 500 mg tablet,extended 1,000 mg (2 x 500 mg) PO DAILY 01/29/21 release 24 hr #180 tab-caps aspirin 81 mg tablet,delayed 81 mg PO DAILY 90 days ##90 01/31/21 release blood sugar diagnostic (FreeStyle #100 ea 03/14/21 Lite Strips) pantoprazole 40 mg tablet,delayed 40 mg PO DAILY #30 tabs 05/23/21 release (Protonix) sucralfate 1 gram tablet (Carafate) 1 g PO HS #30 tabs 05/23/21 acetaminophen 500 mg tablet 500 mg PO Q6H PRN pain #60 tabs 12/04/21 ibuprofen 600 mg tablet 600 mg PO TID PRN pain #60 tabs 12/04/21 cyclobenzaprine 10 mg tablet 10 mg PO TID PRN #20 tabs 01/23/22 Allergies Allergy/AdvReac Type Severity Reaction Status Date / Time celecoxib Allergy Intermediate Rash, Verified 06/19/23 23:58 urticaria naproxen Allergy Intermediate Itchy Welts Verified 06/19/23 23:58 General Stated Complaint: Abd Prob JAMES: 3 Review of Systems Narrative: see HPI Exam Narrative Exam Narrative: General: Alert, well appearing, well nourished, in no acute distress. Head: Normocephalic, atraumatic Neck: Trachea midline, ?Neck supple. ENT: ?MMM.? Cardiac: ?RRR, no murmurs appreciated Resp: No respiratory distress. CTAB. Abd: ?Soft, non-distended, mild RLQ TTP with no rebound or guarding. No overlying rash. : ?No suprapubic tenderness. No CVA tenderness. Extremities: ?No deformities.? No peripheral edema. Neurologic: GCS 15. ? Moves all extremities freely against gravity Course Vital Signs Vital signs: Vital Signs Temperature 36.6 C 06/19/23 23:50 Pulse 76 06/19/23 23:50 Respiratory Rate 22 06/19/23 23:50 Blood Pressure 105/34 L 06/19/23 23:50 Pulse Oximetry 96 06/19/23 23:50 Temperature 36.6 C 06/19/23 23:50 Pulse 76 06/19/23 23:50 Respiratory Rate 22 06/19/23 23:50 Respiratory Effort Normal 06/19/23 23:54 Blood Pressure 105/34 L 06/19/23 23:50 Pulse Oximetry 96 06/19/23 23:50 Oxygen Delivery Method Room Air 06/19/23 23:50 Oxygen Flow Rate 0 06/19/23 23:50 Pain Level 5 06/19/23 23:50 Lab/Test Results Lab/Test Results: Laboratory Tests Range/Units 06/19/23 06/20/23 23:56 00:03 WBC (4.4-10.8) 10^3/uL 11.11 H RBC (4.36-5.78) 10^6/uL 5.25 Hgb (13.5-17.5) g/dL 15.8 Hct (40.0-50.0) % 47.2 MCV (80-95) fL 90 MCH (27.0-33.0) pg 30.1 MCHC (32.0-36.0) % 33.5 RDW (11.8-14.1) % 13.0 Plt Count (130-400) 10^3/uL 203 MPV (8.0-11.0) fL 10.1 Immature Gran % % 1.2 Neutrophils % % 61.1 Lymphocytes % % 24.5 Monocytes % % 10.5 Eosinophils % % 2.1 Basophils % % 0.6 Nucleated RBC % (0.0-0.3) % 0.0 Absolute Neutrophils (1.2-6.7) 10^3/uL 6.79 H Absolute Lymphocytes (1.2-3.4) 10^3/uL 2.72 Absolute Monocytes (0.1-0.8) 10^3/uL 1.17 H Absolute Eosinophils (0.0-0.7) 10^3/uL 0.23 Absolute Basophils (0.0-0.2) 10^3/uL 0.07 VBG Lactate (0.6-1.4) mmol/L 1.5 H Sodium (136-145) mmol/L 139 Potassium (3.5-5.1) mmol/L 3.5 Chloride (98-107) mmol/L 105 Carbon Dioxide (21.0-32.0) mmol/L 25.6 Anion Gap (3-11) mmol/L 8.4 BUN (7-18) mg/dL 22 H Creatinine (0.70-1.30) mg/dL 1.7 H Est GFR (CKD-EPI 2020) (mL/min/1.73m2) 45.86 Glucose (74-106) mg/dL 144 H Calcium (8.5-10.1) mg/dL 8.5 Magnesium (1.8-2.4) mg/dL 1.8 Total Bilirubin (0.2-1.0) mg/dL 0.3 AST (15-37) U/L 12 L ALT (16-63) U/L 28 Alkaline Phosphatase (46-116) U/L 115 Total Protein (6.4-8.2) g/dL 6.5 Albumin (3.4-5.0) g/dL 3.4 Lipase (16-77) U/L 167 H Medical Decision Making 57yo M with hx CAD, T2DM, HTN, HLD, GERD, presenting for abdominal pain. Woke tonight with right lower abdominal pain; called 911. No medications taken at home; did receive 1g tylenol from EMS prior to arrival, reports pain has resolve d. Systemically well, no associated symptoms. Vital signs on arrival reassuring (borderline hypotension with DBP in 30's on initial; repeat without intervention of 118/50 is more believable, doubt initial DBP was correct), perfusing well. Afebrile. Not septic. On exam he does have mild RLQ tenderness to palpation in the area that he was having pain at onset. Will evaluate for life threatening pathology with labs, CT. Less likely scrotal pathology; patient denies scrotal pain, has abdominal tenderness on exam. Would not transfer for ultrasound. Labs reviewed as below, CBC with marginal leukocytosis at 11 and no anemia, CMP with no actionable abnormalities. CR 1.7 slightly elevated from baseline which appears to be 1.4 on [facility] record review. No abnormal LFTs to suggest cholecyst itis/choledocolithiasis. Lipase elevated at 167 however patient with no epigastric tenderness on exam, unlikely acute pancreatitis. Lactate reassuring at 1.5. UA with scant RBCs, potentially suggestive of nephrolithiasis though non-diagnostic. CT independently reviewed, no obstruction or free fluid on my view, agree with radiology read below with enteritits. On reassessment he remains well appearing with reassuring vital signs, a benign abdominal exam, and minimal pain. Appropriate to followup with PCP. Discharged home; discharge instructions and return precautions were reviewed with patient who verbalized understanding. All questions were answered and he is in agreement with the plan. Imaging Data Radiologic Study: Radiologist's impression: IMPRESSION: 1. Wall thickening of multiple bowel loops consistent with infectious, inflammatory or ischemic enteritis (axial image 32 on series 4). 2. Thickening of the colonic wall without significant pericolonic stranding, which may reflect colitis or enterocolitis. Underdistension may present a similar picture. 3. A cluster of normal size and borderline prominent mesenteric lymph nodes in the right lower quadrant as seen in mesenteric adenitis. Given the patient's age, consider a follow-up examination to document resolution. 4. Hepatic steatosis and splenomegaly Lab Data Lab results reviewed: Yes I reviewed the patient's lab results. Labs: Laboratory Tests Range/Units 06/19/23 06/20/23 06/20/23 23:56 00:03 01:22 WBC (4.4-10.8) 10^3/uL 11.11 H RBC (4.36-5.78) 10^6/uL 5.25 Hgb (13.5-17.5) g/dL 15.8 Hct (40.0-50.0) % 47.2 MCV (80-95) fL 90 MCH (27.0-33.0) pg 30.1 MCHC (32.0-36.0) % 33.5 RDW (11.8-14.1) % 13.0 Plt Count (130-400) 10^3/uL 203 MPV (8.0-11.0) fL 10.1 Immature Gran % % 1.2 Neutrophils % % 61.1 Lymphocytes % % 24.5 Monocytes % % 10.5 Eosinophils % % 2.1 Basophils % % 0.6 Nucleated RBC % (0.0-0.3) % 0.0 Absolute Neutrophils (1.2-6.7) 10^3/uL 6.79 H Absolute Lymphocytes (1.2-3.4) 10^3/uL 2.72 Absolute Monocytes (0.1-0.8) 10^3/uL 1.17 H Absolute Eosinophils (0.0-0.7) 10^3/uL 0.23 Absolute Basophils (0.0-0.2) 10^3/uL 0.07 VBG Lactate (0.6-1.4) mmol/L 1.5 H Sodium (136-145) mmol/L 139 Potassium (3.5-5.1) mmol/L 3.5 Chloride (98-107) mmol/L 105 Carbon Dioxide (21.0-32.0) mmol/L 25.6 Anion Gap (3-11) mmol/L 8.4 BUN (7-18) mg/dL 22 H Creatinine (0.70-1.30) mg/dL 1.7 H Est GFR (CKD-EPI 2020) (mL/min/1.73m2) 45.86 Glucose (74-106) mg/dL 144 H Calcium (8.5-10.1) mg/dL 8.5 Magnesium (1.8-2.4) mg/dL 1.8 Total Bilirubin (0.2-1.0) mg/dL 0.3 AST (15-37) U/L 12 L ALT (16-63) U/L 28 Alkaline Phosphatase (46-116) U/L 115 Total Protein (6.4-8.2) g/dL 6.5 Albumin (3.4-5.0) g/dL 3.4 Lipase (16-77) U/L 167 H Urine Color (Yellow) Yellow Urine Clarity (Clear) Clear Urine pH (5-8) 5.5 Ur Specific Jordan (1.005-1.025) 1.020 Urine Protein (Neg-Trace) mg/dL Negative Urine Ketones (Negative) mg/dL Trace H Urine Blood (Negative) Small H Urine Nitrite (Negative) Negative Urine Bilirubin (Negative) Negative Urine Urobilinogen (Up to 0.2) mg/dL 0.2 Ur Leukocyte Esterase (Negative) Negative Urine RBC (0-2) HPF 3-5 H Urine WBC (0-5) HPF Negative Ur Epithelial Cells (Negative) HPF Negative Urine Crystals (Negative) HPF Negative Urine Bacteria (Negative) HPF Rare Urine Casts (Negative) LPF Negative Urine Mucus (Negative) Moderate Ur Culture Indicated? No Urine Glucose (Negative) mg/dL Negative Quality:SDOH Health Related Social Needs: No Data to Display PFSH All Active Problems (Updated 06/20/23 @ 03:03 by Valentine Mckinney MD) Enteritis (Acute) H/O urinary frequency (Acute) Abnormal stress test (Chronic) Tobacco use disorder (Chronic) Quit 2019, restarted late in the year Vitamin D deficiency (Chronic) Chronic kidney disease (CKD), stage III (moderate) (Chronic 05/26/16) ? due to DM or to hypertension Diabetes mellitus type 2 in obese (Chronic 02/19/16) presented with polyuria, elevated FS on friend's glucometer, A1c 14 at [facility] ER Essential hypertension (Chronic) goal <140/85 Gastroesophageal reflux disease without esophagitis (Chronic 12/05/11) ER 11/2014 rx PPI Microscopic hematuria (Chronic 02/27/14) CT neg; JUSTINO neg; persists 01/2015 Mixed hyperlipidemia (Chronic 02/16/01) low HDL 27; SL HIGH TG; CV RISK (12/2016): 27%: rec Statin Obesity, unspecified (Chronic 12/05/11) 1993 165#; 180 gives BMI <30 05/06/21 [facility], BMI 35.10 Obstructive sleep apnea (Chronic 03/10/16) [id number], severe in REM sleep Sleep study PSG on 03/10/16: AHI 20.1; SPO2 shailesh 82%; CPAP begun 06/08/16. with improvement in fatigue 06/29/16 restudied higher pressures needed assoc. with treatment of central sleep apnea Complex regional pain syndrome (Chronic 06/27/13) Type 2 diabetes mellitus (Chronic 12/05/11) Chest pain (Acute) Hypertrophy of tonsils (Acute) 02/21/2019 ENT, Dr Lange Dysfunction of left eustachian tube (Acute) 02/21/[address] Lange Edentulous (Acute) Chronic maxillary sinusitis (Acute) History of sinusitis (Acute) Abdominal obesity (Acute) Chest pain (Acute) Bilateral hydrocele (Acute) Abdominal pain (Acute) Lightheadedness (Acute) Hematuria (Acute) Family history of cerebral aneurysm (Chronic) Mother in Mar 2020 Right arm numbness (Acute) Functional bowel disorder (Acute) Diverticulosis (Chronic) Colonoscopy June 2019 Other constipation (Acute ~2020) [facility] Polyp of colon (Acute ~2020) [facility] Right lower quadrant pain (Acute ~2020) [facility] Sinusitis (Acute) High triglycerides (Acute) Dizziness (Acute) Dyspnea (Acute) Gout (Chronic) R 1st PIP joint Umbilical hernia (Acute) History of alcohol abuse (Acute) Burning sensation (Acute) Eructation (Acute) Medical History (Updated 06/20/23 @ 03:03 by Valentine Mckinney MD) Urinary incontinence without sensory awareness Sessile colonic polyp (09/26/14) @ transverse colon, sigmoid Paresthesias (10/27/16) nocturnal, bilateral, R>L, Median nerve, probable CTS Surgical History Cubital tunnel syndrome of both upper extremities S/P L cubital tunnel release: 09/03/2021 S/P R cubital tunnel release: 12/04/2021 Carpal tunnel syndrome of right wrist S/P ECTR: 12/04/2021 Carpal tunnel syndrome of left wrist S/P ECTR: 09/03/2021 Cystoscopy w/ joe retrograde pyelogram (03/01/15) Colonoscopy - IV Sedation (09/26/14) [facility] Perri, serrated polyp, fragments of sessile serrated adenoma Extraction of cataract (12/17/16) Left Radha Manzo; R 11/19/16 Cardiac Cath (03/24/17) [id number] stents placed Family History Father , lung cancer at age 67. Essential hypertension Neoplasm Mother Diabetes Essential hypertension Sister No problems noted. Sister No problems noted. Social History Smoking/Tobacco Use Status: Current every day Tobacco Type: cigarettes Tobacco: How many years used: 41 Quit status: considering quitting Smoking risk assessment performed?: Yes Alcohol Intake: former Drug use: Never Substance use type: does not use Household members: significant other Housing: apartment Number of Children: 3 Communication Needs: None Do you need help understanding health information?: Often current occupation: Disabled Current gender identity: male What is your relationship status?: living with partner How often do you talk on the phone with friends or family?: three or more times per week How often do you get together with friends or relatives?: three or more times per week Panel score (0-1 are the most socially isolated patients): 2 What type of physical activity do you participate in: none Seatbelt use: always Drive intox or ride w/intox commercial driver's license driver: No Working smoke detector in home: No Fire extinguisher in home: No Carbon monox detector in home: No Do you feel safe at home: Yes Do you feel safe in your relationship?: Yes
[2023-06-20] MEDS: Normal Saline - Diluent 50 ML VIAL IJ (01:15)
[2023-06-20] MEDS: Omnipaque 350 MG/ML 100 ML BTL IJ (01:15)
[2023-06-20 01:27] LABS: Bilirubin Negative (Negative); Blood Small (Negative); Clarity Clear (Clear); Glucose Negative (Negative); Ketones Trace mg/dL (Negative); Leukocyte Esterase Negative (Negative); Nitrite Negative (Negative); Urobilinogen 0.2 mg/dL (Up to 0.2); pH 5.5 (5-8)
[2023-06-20 01:29] LABS: Bacteria Rare HPF (Negative); C & S Indicated? No; Casts Negative LPF (Negative); Crystals Negative HPF (Negative); Epithelial Cells Negative HPF (Negative); Mucus Moderate (Negative); WBC Negative HPF (0-5)
--- NOTE | 2023-06-20 02:40 | DI.VRAD_ITS ---
PROCEDURE INFORMATION: Exam: CT Abdomen And Pelvis With Contrast Exam date and time: 06/20/2023 1:05 AM Age: 57 years old Clinical indication: Abdominal pain; Other: Rlq abd pain TECHNIQUE: Imaging protocol: Computed tomography of the abdomen and pelvis with contrast. Contrast material: OMNI 350; Contrast volume: 100 ml; Contrast route: INTRAVENOUS (IV); COMPARISON: CT ABDOMEN PELVIS WO/W 04/18/2022 08:06 FINDINGS: Lungs: The visualized lung [place] show mild bibasilar atelectasis. Liver: The liver is normal in size. There are no enhancing liver lesions. There is hepatic steatosis. Gallbladder and bile ducts: No calcified stones. No ductal dilation. Pancreas: Normal in size and homogeneous enhancement. No ductal dilation. Spleen: The spleen measures 13.4 cm in length, mildly enlarged. Adrenal glands: Normal. No mass. Kidneys and ureters: There is no hydronephrosis. No renal or obstructive ureteral calculi are identified. There are multiple bilateral simple appearing renal cysts as large as 2.7 cm. Stomach and bowel: Wall thickening of multiple bowel loops consistent with infectious, inflammatory or ischemic enteritis (axial image 32 on series 4). Thickening of the colonic wall without significant pericolonic stranding, which may reflect enterocolitis. Appendix: A normal appendix is identified. Intraperitoneal space: No free air. No significant fluid collection. Vasculature: There is mild atherosclerotic calcification and tortuosity of the abdominal aorta and its branches without aneurysm. The celiac trunk, SMA and JOHNATHAN are widely patent. Lymph nodes: In the right lower quadrant, there is a cluster of normal size and borderline prominent mesenteric lymph nodes as large as 10 mm in short dimension. Urinary bladder: The bladder shows a normal contour and is free of calcific opacities. Reproductive: Unremarkable as visualized. Bones/joints: No acute fracture. Soft tissues: Normal. IMPRESSION: 1. Wall thickening of multiple bowel loops consistent with infectious, inflammatory or ischemic enteritis (axial image 32 on series 4). 2. Thickening of the colonic wall without significant pericolonic stranding, which may reflect colitis or enterocolitis. Underdistension may present a similar picture. 3. A cluster of normal size and borderline prominent mesenteric lymph nodes in the right lower quadrant as seen in mesenteric adenitis. Given the patient's age, consider a follow-up examination to document resolution. 4. Hepatic steatosis and splenomegaly. Dictated and Authenticated by: Garett Walsh MD. Ordering:MANFRED Grijalva MD
== END 2023-06-20 03:20 | disposition home or self-care (01) ==
PROVIDERS: Emergency Provider Student in an Organized Health Care Education/Training Program; PCP Family Medicine
DX: K52.9 Noninfective gastroenteritis and colitis, unspecified (principal); I25.10 Atherosclerotic heart disease of native coronary artery without angina pectoris; I12.9 Hypertensive chronic kidney disease with stage 1 through stage 4 chronic kidney disease, or unspecified chronic kidney disease; E11.22 Type 2 diabetes mellitus with diabetic chronic kidney disease; N18.30 Chronic kidney disease, stage 3 unspecified; E78.5 Hyperlipidemia, unspecified; F17.210 Nicotine dependence, cigarettes, uncomplicated; Z79.84 Long term (current) use of oral hypoglycemic drugs; Z79.85 Long-term (current) use of injectable non-insulin antidiabetic drugs
CPT/HCPCS: 80053; 83690; 99285; 74177; 81003; 81015; 83605; 83735; 85025; 99284; J3490

== ENCOUNTER 2023-07-29 13:37 | Outpatient (REF) | payer MEDICARE, MEDICAID, SELFPAY ==
[2023-07-29 14:52] LABS: Abs Immature Grans 0.19 10^3/uL (0.0-0.06); Absolute Eosinophil Count 0.16 10^3/uL (0.0-0.7); Absolute Lymphocyte Count 2.13 10^3/uL (1.2-3.4); Absolute Monocyte Count 0.93 10^3/uL (0.1-0.8); Absolute Neutrophil Count 6.59 10^3/uL (1.2-6.7); Eosinophils % 1.6 %; HCT 47.3 % (40.0-50.0); HGB 16.4 g/dL (13.5-17.5); Immature Grans % 1.9 %; Lymphocytes % 21.1 %; MCHC 34.7 % (32.0-36.0); MCV 87 fL (80-95); MPV 10.6 fL (8.0-11.0); Monocytes % 9.2 %; Neutrophils % 65.2 %; Platelet Count 215 10^3/uL (130-400); RBC 5.47 10^6/uL (4.36-5.78); RDW 12.8 % (11.8-14.1); RDW-SD 40.6 fL
[2023-07-29 15:05] LABS: Bacteria Negative HPF (Negative); C & S Indicated? No; Casts Negative LPF (Negative); Crystals Negative HPF (Negative); Epithelial Cells Rare HPF (Negative); Mucus Negative (Negative); RBC 0-2 HPF (0-2); WBC 0-2 HPF (0-5)
[2023-07-29 15:18] LABS: ALT 32 U/L (16-63); AST 18 U/L (15-37); Albumin 3.9 g/dL (3.4-5.0); Alkaline Phosphatase 123 U/L (46-116); BUN 15 mg/dL (7-18); Bilirubin, Total 0.4 mg/dL (0.2-1.0); CREATININE 1.2 mg/dL (0.70-1.30); Calcium 9.2 mg/dL (8.5-10.1); Chloride 105 mmol/L (98-107); Estimated GFR 69.66 (mL/min/1.73m2); Glucose 113 mg/dL (74-106); Potassium 4.1 mmol/L (3.5-5.1); Sodium 140 mmol/L (136-145); Total Protein 6.9 g/dL (6.4-8.2)
[2023-07-29 15:20] LABS: ESR 12 mm/hr (0-20)
[2023-07-29 15:21] LABS: C-Reactive Protein < 0.50 mg/dL (<or=0.5)
== END 2023-07-29 13:38 | disposition home or self-care (01) ==
LOC: NCHCN 13:37
PROVIDERS: PCP Student in an Organized Health Care Education/Training Program; Visit Provider Student in an Organized Health Care Education/Training Program
DX: R10.9 Unspecified abdominal pain (principal); R31.29 Other microscopic hematuria
CPT/HCPCS: 80053; 85652; 81015; 85025; 86140

== ENCOUNTER → 2023-08-19 01:40 | Outpatient (CLI) | payer MEDICARE, MEDICAID, SELFPAY ==
--- NOTE | 2023-08-19 | DI.CT_ITS ---
Exam(s) CT ABDOMEN PELVIS W EXAM: CT ABDOMEN PELVIS W CLINICAL HISTORY: MESENTERIC LYMPHADENITIS, I88.0 TECHNIQUE: Imaging Protocol: Axial computed tomography images with coronal and sagittal reformatted images were created and reviewed. CONTRAST MATERIAL: Intravenous: Omnipaque 350 Contrast volume:100 mL Oral: Yes COMPARISON: CT CT ABDOMEN PELVIS W from 06/20/2023 FINDINGS: ABDOMEN: Lung Bases: Normal where visualized. Liver: There is decreased attenuation of the liver suggesting fatty infiltration. No measurable mass . Portal, Superior Mesenteric, and Splenic Veins: Unremarkable. Gallbladder and Biliary Tract: No radiodense calculus or dilation. Pancreas: Normal density, no abnormal calcifications or inflammatory process. Spleen: Normal. Adrenals: No masses seen. Kidneys: Normal size, contour and axis. No radiodense stones or obstructive uropathy. There are bilat eral renal cysts. No follow-up is recommended. Abdominal Aorta: Abdominal portion non-dilated. Atherosclerotic calcification is present. Bowel: No obstruction or bowel wall thickening. Appendix is unremarkable. There is a diverticulum in the duodenum adjacent to the head of the pancreas. There is diverticulosis in the colon but no evide nce of acute diverticulitis. Peritoneal Cavity: No ascites, collection or mesenteric inflammatory response. No free air. Lymph Nodes: Decrease in size of the lymph nodes in the right lower quadrant. No new lymph nodes are seen in the abdomen or pelvis. Bones: Within normal limits for the patient's age. Soft Tissues: There is a small fat containing umbilical hernia. PELVIS: Bladder: Symmetric distention, no gross wall thickening. Bilateral hydroceles are present in the scro taz. Reproductive Organs: Unremarkable as visualized. Lymph Nodes: Within normal limits. Bones: Within normal limits for the patient's age. IMPRESSION: 1. Interval decrease in size of the lymph nodes in the right lower quadrant. No new enlarged lymph no christen are present. 2. No acute abdominal or pelvic process. 3. Incidental findings in the abdomen and pelvis as described above. RADIATION DOSE DELIVERED: Total DLP DATA REPOSITORY: All CT scans at this facility are submitted to the National Radiology Data Registry (NRDR) Dose Index Registry (DIR) with the [employer] ([employer]). RADIATION OPTIMIZATION: All CT scans at this facility use at least one of these dose optimization te chniques: automated exposure control; mA and/or kV adjustment per patient size (includes targeted exa ms where dose is matched to clinical indication); or iterative reconstruction.
[2023-08-19] MEDS: Barium Sulfate 2% W/V-Berry Smoothie 450 ML BTL PO ×2 (13:07→13:08)
[2023-08-19] MEDS: Normal Saline - Diluent 50 ML VIAL IJ (15:18)
[2023-08-19] MEDS: Omnipaque 350 MG/ML 100 ML BTL IJ (15:19)
== END ==
PROVIDERS: PCP Student in an Organized Health Care Education/Training Program; Visit Provider Student in an Organized Health Care Education/Training Program
DX: I88.0 Nonspecific mesenteric lymphadenitis (principal)
CPT/HCPCS: 74177; J3490

== ENCOUNTER → 2023-09-10 00:41 | Outpatient (CLI) | payer MEDICARE, MEDICAID, SELFPAY ==
--- OUTSIDE RECORDS SUMMARY | 2023-09-10 00:48 | XMS_ITS | Continuity of Care Document ---
Author Organization [facility] Address [address] [place] [address] Care Team Providers Care Green Chain Puller Name Role Phone OPHELIA LEE MD Primary Care Physician Encounter [facility] NBR [id number] Date(s): 08/31/23 - 08/31/[address] [address] Encounter Diagnosis Acute bronchitis(Discharge Diagnosis) - 08/31/23 Hyperglycemia(Discharge Diagnosis) - 08/31/23 Acute bronchitis, unspecified(Final) - Hyperglycemia, unspecified(Final) - Nicotine dependence, unspecified, uncomplicated(Final) - Discharge Disposition: Home or Self Care Attending Physician: Jose Michael MD Admitting Physician: Jose Michael MD Allergies, Adverse Reactions, Alerts Substance Reaction Severity Status predniSONE Vomiting Mild Active Assessment and Plan Extracted from: Title:ED Provider Note Author:JAMES Floyd Date:08/31/23 Assessment/Plan 1.??Acute bronchitis??J20.9 2.??Hyperglycemia??R73.9 Orders: Discharge Patient, 08/31/23 19:45:00 EDT, Home Independently Patient Education Acute Bronchitis, Adult Follow Up With When Contact Information OPHELIA LEE MD Within 1 week [address] [place] [address]- ?? Additional Instructions: As we discussed your chest x-ray today does not show any evidence of pneumonia. ??Your blood sugar was elevated today??however the remaining laboratory studies were reassuring.?? You should continue to take your medications. ??Follow-up closely with your primary care physician. ??Return for worsening in symptoms. Medications Aspirin Low Dose 81 mg oral delayed release tablet 0 Refill(s) Start Date: 08/31/23 Status: Ordered atorvastatin 10 mg oral tablet 0 Refill(s) Start Date: 08/31/23 Status: Ordered azithromycin 250 mg oral tablet 0 Refill(s) Start Date: 08/31/23 Status: Ordered benzonatate 200 mg oral capsule 0 Refill(s) Start Date: 08/31/23 Status: Ordered lisinopril 5 mg oral tablet 0 Refill(s) Start Date: 08/31/23 Status: Ordered MetFORMIN (Eqv-Glucophage XR) 500 mg oral tablet, extended release 0 Refill(s) Start Date: 08/31/23 Status: Ordered nicotine 2 mg oral transmucosal lozenge 0 Refill(s) Start Date: 08/31/23 Status: Ordered nicotine 7 mg/24 hr transdermal film, extended release 0 Refill(s) Start Date: 08/31/23 Status: Ordered pantoprazole 40 mg oral delayed release tablet 0 Refill(s) Start Date: 08/31/23 Status: Ordered sucralfate 1 g oral tablet 0 Refill(s) Start Date: 08/31/23 Status: Ordered tamsulosin 0.4 mg oral capsule 0 Refill(s) Start Date: 08/31/23 Status: Ordered Ventolin HFA 90 mcg/inh inhalation aerosol 0 Refill(s) Start Date: 08/31/23 Status: Ordered Results Laboratory List Name Date .Manual Differential (LTTL) 08/31/23 Beta Hydroxybutyrate 08/31/23 CBC w/ Diff 08/31/23 Comprehensive Metabolic Panel (CMP) 08/30 Glucose POCT 08/31/23 Most recent to oldest [Reference Range]: 1 WBC [4.8-10.8 K/mcL] 9.2 K/mcL (08/31/23 6:29 PM) RBC [4.70-6.10 Million/mcL] 5.16 Million /mcL (08/31/23 6:29 PM) Segs Man 58 *NA* (08/31/23 6:29 PM) Lymph Man [20.5-51.1 %] 28.0 % (08/31/23 6:29 PM) Bowman Man [1.7-9.3 %] 10.0 % *HI* (08/31/23 6:29 PM) Eos Man [0.00-3.00 %] 2.00 % (08/31/23 6: PM) BUN [7-25 mg/dL] 15 mg/dL (08/31/23: PM) Glucose POC 436 *NA* (08/31/23 6:10 PM) Glucose Level [70-109 mg/dL] 403 mg/dL 1 *CRIT* (08/31/23 6:29 PM) Lymph, Atyp Man 2 % *NA* (08/31/23 PM) Potassium Level [3.5-5.1 mmol/L] 4.2 mmo l/L (08/31/23 PM) MCV [80.0-94.0 fL] 88.2 fL (08/31/23 PM) RBC Morph [Normal] Normal (08/31/23 PM) AST [13-39 IntlUnit/L] 14 IntlUnit/L (08/31/23: PM) ALT [7-52 IntlUnit/L] 22 IntlUnit/L (08/31/23: PM) MCHC [32.0-37.0 g/dL] 34.0 g/dL (08/31/23: PM) Osmolality [275-295 mOsm/kg] 284 mOsm/kg (08/31/23 PM) Sodium Level [136-145 mmol/L] 133 mmol/L *LOW* (08/31/23: PM) Hct [42.0-52.0 %] 45.5 % (08/31/23 PM) Calcium Level [8.6-10.3 mg/dL] 9.2 mg/dL (08/31/23 PM) Albumin Level [3.5-5.7 g/dL] 4.1 g/dL (08/31/23: PM) Protein Total [6.4-8.9 g/dL] 7.0 g/dL (08/31/23 PM) MCH [27.0-31.0 pg] 30.0 pg (08/31/23:29 PM) Bilirubin Total [0.3-1.0 mg/dL] 0.3 mg/d L (7/15/24 6:29 PM) Hgb [14.0-18.0 g/dL] 15.5 g/dL (08/31/23 6:29 PM) Alk Phos [34-104 IntlUnit/L] 140 IntlUni t/L *HI* (08/31/23 6:29 PM) MPV [7.4-10.4 fL] 8.5 fL (08/31/23 6:29 PM) Band Man 0 % *NA* (08/31/23 6:29 PM) Platelets [130-400 K/mcL] 214 K/mcL (08/31/23 6:29 PM) CO2 [21-31 mmol/L] 22 mmol/L (08/31/23 6:29 PM) Chloride Level [98-107 mmol/L] 103 mmol/ L (08/31/23 6:29 PM) RDW-CV [11.5-14.5 %] 13.4 % (08/31/23 6:29 PM) A/G Ratio [1.0-2.5 g/dL] 1.4 g/dL (08/31/23 6:29 PM) BUN/Creat Ratio [8.0-20.0] 12.5 (08/31/23 6:29 PM) Globulin [2.3-3.5 g/dL] 2.9 g/dL (08/31/23 6:29 PM) Slide Review Man Diff (08/31/23 6:29 PM) Abs Baso Man [0.0-0.2 K/mcL] 0.0 K/mcL (08/31/23 6:29 PM) Abs Eos Man [0.0-0.2 K/mcL] 0.2 K/mcL (08/31/23 6:29 PM) Abs Lymph Man [1.2-3.4 K/mcL] 2.8 K/mcL (08/31/23 6:29 PM) Abs Bowman Man [0.1-0.6 K/mcL] 0.9 K/mcL *HI* (08/31/23 6:29 PM) Abs Neut Man [1.4-6.5 K/mcL] 5.3 K/mcL (08/31/23 6:29 PM) Creatinine Level [0.70-1.30 mg/dL] 1.20 mg/dL (08/31/23 6:29 PM) Plt Estimation Normal (08/31/23 6:29 PM) Anion Gap [3.0-12.0] 8.0 (08/31/23 6:29 PM) Baso Man [0.0-0.8 %] 0.0 % (08/31/23 6:29 PM) Beta-Hydroxybutyrate [0.02-0.27 mm] <0.2 0 mm (08/31/23 6:29 PM) eGFR CKD-EPI [>=60 mL/min/1.73 m2] 69 mL /min/1.73 m2 (08/31/23 6:29 PM) 1Result Comment: Critical Result [id number] Called to and read back by: HECTOR TRAN at: 08/31/2023 19:08:32 by:AVTAR Verified by repeat analysis Radiology Reports * Exam Date Time Procedure Performing Provider Status 08/31/23 5:55 PM XR Chest 2 Views Major Singer (Verified) Notes: (XR Chest 2 Views) Reason For Exam: cough XR Chest 2 Views PROCEDURE INFORMATION: Exam: XR Chest Exam date and time: 08/31/2023 5:46 PM Age: 58 years old Clinical indication: Cough TECHNIQUE: Imaging protocol: Radiologic exam of the chest. Views: 2 views. COMPARISON: CT ABD/PELVIS W CONTRAST 07/13/2020 7:56 AM FINDINGS: Lungs: No focal consolidation is identified within the lung parenchyma. On the lateral projection, there is the suggestion of bronchial wall thickening which could indicate bronchitis or asthma. Pleural spaces: There are no pleural effusions. There is no pneumothorax. Heart/Mediastinum: The cardiac silhouette appears mildly enlarged, likely accentuated by a prominent pericardial fat pad. The mediastinal and hilar contours are normal. Bones/joints: No acute osseous pathology is identified. IMPRESSION: Bronchial wall thickening suggesting bronchitis or asthma. No acute CHF or pneumonia appreciated. THIS DOCUMENT HAS BEEN ELECTRONICALLY SIGNED BY SILVIA FERNANDO MD on 08/31/2023 06:22 PM Final Signed by: Silvia Fernando MD Signed (Electronic Signature): 08/31/2023 6:22 pm Vital Signs Most recent to oldest [Reference Range]: 1 2 3 Temperature Oral [35.8-37.3 Deg C] 36.9 Deg C (08/31/23 5:05 PM) Peripheral Pulse Rate [60-100 bpm] 68 bpm (08/31/23 7:45 PM) 66 bpm (08/31/23 7:02 PM) 64 bpm (08/31/23:29 PM) Heart Rate Monitored [60-100 bpm] 70 bpm (08/31/23 7:45 PM) 67 bpm (08/31/23 7:02 PM) 67 bpm (08/31/23:29 PM) Respiratory Rate [12-24 br/min] 24 br/min (08/31/23 7:45 PM) 23 br/min (08/31/23 7:02 PM) 22 br/min (08/31/23:29 PM) Blood Pressure [90-140/60-90 mmHg] 137/79mmHg (08/31/23 7:45 PM) 115/64mmHg (08/31/23 7:02 PM) 135/64mmHg (08/31/23:29 PM) Mean Arterial Pressure, Cuff [65-140 mmHg] 98 mmHg (08/31/23 7:45 PM) 81 mmHg (08/31/23 7:02 PM) 88 mmHg (08/31/23:29 PM) Mean Arterial Pressure Cuff 94 mmHg (08/31/23 7:45 PM) 73 mmHg (08/31/23 7:02 PM) 85 mmHg (08/31/23 6:29 PM) Weight 103 kg (08/31/23 5:05 PM) Weight Dosing 103.000 kg (08/31/23 5:05 PM) Height 167 cm (08/31/23 5:05 PM) Body Mass Index 36.93 kg/m2 (08/31/23 5:05 PM) Social History Social History Type Response Tobacco Current everyday tob acco user Tobacco Use:. Sex Hospital Discharge Instructions Patient Education 08/31/2023 18:44:51 Acute Bronchitis, Adult Acute Bronchitis, Adult Acute bronchitis is sudden inflammation of the main airways (bronchi) that come off the windpipe (trachea) in the lungs. The swelling causes the airways to get smaller and make more mucus than normal. This can make it hard to breathe and can cause coughing or noisy breathing (wheezing). Acute bronchitis may last several weeks. The cough may last longer. Allergies, asthma, and exposureto smoke may make the condition worse. What are the causes? This condition can be caused by germs and by substances that irritate the lungs, including: ??? Cold and flu viruses. The most common cause of this condition is the virus that causes the common cold. ??? Bacteria. This is less common. ??? Breathing in substances that irritate the lungs, including: ??? Smoke from cigarettes and other forms of tobacco. ??? Dust and pollen. ??? Fumes from household cleaning products, gases, or burned fuel. ??? Indoor or outdoor air pollution. What increases the risk? The following factors may make you more likely to develop this condition: ??? A weak body's defense system, also called the immune system. ??? A condition that affects your lungs and breathing, such as asthma. What are the signs or symptoms? Common symptoms of this condition include: ??? Coughing. This may bring up clear, yellow, or green mucus from your lungs (sputum). ??? Wheezing. ??? Runny or stuffy nose. ??? Having too much mucus in your lungs (chest congestion). ??? Shortness of breath. ??? Aches and pains, including sore throat or chest. How is this diagnosed? This condition is usually diagnosed based on: ??? Your symptoms and medical history. ??? A physical exam. You may also have other tests, including tests to rule out other conditions, such as pneumonia. These tests include: ??? A test of lung function. ??? Test of a mucus sample to look for the presence of bacteria. ??? Tests to check the oxygen level in your blood. ??? Blood tests. ??? Chest X-ray. How is this treated? Most cases of acute bronchitis clear up over time without treatment. Your health care provider may recommend: ??? Drinking more fluids to help thin your mucus so it is easier to cough up. ??? Taking inhaled medicine (inhaler) to improve air flow in and out of your lungs. ??? Using a vaporizer or a humidifier. These are machines that add water to the air to help you breathe better. ??? Taking a medicine that thins mucus and clears congestion (expectorant). ??? Taking a medicine that prevents or stops coughing (cough suppressant). It is not common to take an antibiotic medicine for this condition. Follow these instructions at home: ??? Take yojf-laf-gteurif and prescription medicines only as told by your health care provider. ??? Use an inhaler, vaporizer, or humidifier as told by your health care provider. ??? Take two teaspoons (10 mL) of honey at bedtime to lessen coughing at night. ??? Drink enough fluid to keep your urine pale yellow. ??? Do not use any products that contain nicotine or tobacco. These products include cigarettes, chewing tobacco, and vaping devices, such as e-cigarettes. If you need help quitting, ask your health care provider. ??? Get plenty of rest. ??? Return to your normal activities as told by your health care provider. Ask your health care provider what activities are safe for you. ??? Keep all follow-up visits. This is important. How is this prevented? To lower your risk of getting this condition again: ??? Wash your hands often with soap and water for at least 20 seconds. If soap and water are not available, use hand tax commissioner. ??? Avoid contact with people who have cold symptoms. ??? Try not to touch your mouth, nose, or eyes with your hands. ??? Avoid breathing in smoke or chemical fumes. Breathing smoke or chemical fumes will make your condition worse. ??? Get the flu shot every year. Contact a health care provider if: ??? Your symptoms do not improve after 2 weeks. ??? You have trouble coughing up the mucus. ??? Your cough keeps you awake at night. ??? You have a fever. Get help right away if you: ??? Cough up blood. ??? Feel pain in your chest. ??? Have severe shortness of breath. ??? Faint or keep feeling like you are going to faint. ??? Have a severe headache. ??? Have a fever or chills that get worse. These symptoms may represent a serious problem that is an emergency. Do not wait to see if the symptoms will go away. Get medical help right away. Call your local emergency services (911 in the [place] Do not drive yourself to the hospital. Summary ??? Acute bronchitis is inflammation of the main airways (bronchi) that come off the windpipe (trachea) in the lungs. The swelling causes the airways to get smaller and make more mucus than normal. ??? Drinking more fluids can help thin your mucus so it is easier to cough up. ??? Take kmjj-pjb-fmkntdl and prescription medicines only as told by your health care provider. ??? Do not use any products that contain nicotine or tobacco. These products include cigarettes, chewing tobacco, and vaping devices, such as e-cigarettes. If you need help quitting, ask your health care provider. ??? Contact a health care provider if your symptoms do not improve after 2 weeks. This information is not intended to replace advice given to you by your health care provider. Make sure you discuss any questions you have with your health care provider. Document Revised: 05/15/2022 Document Reviewed: 06/05/2021 [employer] Patient Education ?? 2022 [employer] Follow Up Care 08/31/2023 16:56:46 With:OPHELIA LEE MD Address: [address] [place] [address] When:1 week Comments:As we discussed your chest x-ray today does not show any evidence of pneumonia. ??Your blood sugar was elevated today??however the remaining laboratory studies were reassuring.?? You should continue to take your medications. ??Follow-up closely with your primary care physician. ??Return for worsening in symptoms. Physician Emergency department Note * JAMES Floyd: PERFORM Event Display: ED Note Physician Authored Date: [id number] MANNIE RODRIGUEZ :1965 Age:58 years Sex:Male Visit Date:08/31/2023 Primary Care Physician: OPHELIA LEE MD Basic Information Time Seen: JAMES Floyd / 08/31/2023 17:22 Chief Complaint SOB and cough since . Saw PCP thursday given azithryo and albuterol. Here today ebcause he does not feel better. ??Cough is productive. SOB worsens when walking. Denies fevers or chest pain. +Smoker. Noted BS to be in the 400s History Of Present Illness: The patient is??a 58-year-old??male who presents to the emergency department for??evaluation of difficulty breathing??and cough. ??He states that his symptoms started??4 days ago. ??He saw his PCP 3 days ago and was started on??azithromycin, albuterol and Tessalon Perles.?? He??states that he is not feeling better. ??He feels like his cough is getting worse. ??He denies any fever.?? He does note that he had some congestion??but feels like this is improved. ??He is a smoker. ??He??did note that his blood sugar was elevated this morning. Review of Systems: Review of systems as noted in HPI otherwise negative Physical Exam Vitals & Measurements T:??36.9?C ??(Oral)?? HR:??66??(Peripheral)?? HR:??67??(Monitored)?? RR:??23?? BP:??115/64?? SpO2:??98%?? HT:??167??cm?? WT:??103??kg?? BMI:??36.93?? GENERAL:??No apparent distress, well appearing. SKIN:??Warm, dry, no rash. EYES:??Pupils are equally round, extraocular movements intact. HENT:??Normocephalic, atraumatic, moist mucus membranes. NECK:??Nontender and supple with no nuchal rigidity, no lymphadenopathy, full range of motion. PULMONARY:??Clear to auscultation without wheezes, rhonchi or rales CARDIOVASCULAR:??Regular rate and rhythm. ??No appreciated murmurs. ABDOMEN:??Soft, non-tender, non-distended, no palpable masses, no rebound or guarding, bowel soundspresent. GENITOURINARY:??No costovertebral angle tenderness to palpation. LYMPHATICS:??No edema in lower extremities. MUSCULOSKELETAL:??Moves all extremities without difficulty. NEUROLOGIC:??Alert and oriented x 3, normal mentation and speech. ??Moves all extremities x 4 without motor or sensory deficit. Medical Decision Making: The patient is a 58-year-old male who presents to the emergency department for evaluation of??coughand shortness of breath. ??His symptoms started 4 days ago. ??He saw his PCP 3 days ago and was started on??azithromycin, Tessalon Perles and albuterol. ??He feels like his cough is getting worse. ??He does note that his blood sugar was elevated this morning. ??He has been taking his medicines. ??In further discussion the patient states that his blood sugar??is usually less than 200.?? Chest x-ray shows no evidence of acute infiltrates.?? Laboratory studies were obtained given the patient's elevated blood sugar.?? The patient was given IV fluids. ??His blood sugar remains elevated at 403. ??He??however does not have an elevated??beta hydroxybutyrate and does not have an anion gap.?? The patient at this point time is appropriate for discharge home. ??He was advised to follow-up closely with his primary care physician. ??Continue his home medications. ??Return for worsening symptoms. Procedure No Qualifying Data Assessment/Plan 1.??Acute bronchitis??J20.9 2.??Hyperglycemia??R73.9 Orders: Discharge Patient, 08/31/23 19:45:00 EDT, Home Independently Patient Education Acute Bronchitis, Adult Follow Up With When Contact Information OPHELIA LEE MD Within [address] [place] [id number]- Additional Instructions: As we discussed your chest x-ray today does not show any evidence of pneumonia. ??Your blood sugar was elevated today??however the remaining laboratory studies were reassuring.?? You should continue to take your medications. ??Follow-up closely with your primary care physician. ??Return for worsening in symptoms. Medication Reconciliation Unchanged albuterol (Ventolin HFA 90 mcg/inh inhalation aerosol) ?? aspirin (Aspirin Low Dose 81 mg oral delayed release tablet) ?? atorvastatin (atorvastatin 10 mg oral tablet) ?? azithromycin (azithromycin 250 mg oral tablet) ?? benzonatate (benzonatate 200 mg oral capsule) ?? lisinopril (lisinopril 5 mg oral tablet) ?? metFORMIN (MetFORMIN (Eqv-Glucophage XR) 500 mg oral tablet, extended release) ?? nicotine (nicotine 2 mg oral transmucosal lozenge) ?? nicotine (nicotine 7 mg/24 hr transdermal film, extended release) ?? pantoprazole (pantoprazole 40 mg oral delayed release tablet) ?? sucralfate (sucralfate 1 g oral tablet) ?? tamsulosin (tamsulosin 0.4 mg oral capsule) Problem List/Past Medical History Ongoing Tobacco user Historical No qualifying data Medication Administration Given NS drip, 1000 mL, Medication Bolus Allergies predniSONE??(Vomiting) Social History Alcohol Never Electronic Cigarette/Vaping Electronic Cigarette Use: Never. Substance Use Never Tobacco Current everyday tobacco user Tobacco Use:. Diagnostic Results XR Chest 2 Views 08/31/2023 18:22 EDT XR Chest 2 Views ?? 08/31/23 17:46:47 PROCEDURE INFORMATION: Exam: XR Chest Exam date and time: 08/31/2023 5:46 PM Age: 58 years old Clinical indication: Cough ?? TECHNIQUE: Imaging protocol: Radiologic exam of the chest. Views: 2 views. ?? COMPARISON: CT ABD/PELVIS W CONTRAST 07/13/2020 7:56 AM ?? FINDINGS: Lungs: No focal consolidation is identified within the lung parenchyma. On the lateral projection, there is the suggestion of bronchial wall thickening which could indicate bronchitis or asthma. Pleural spaces: There are no pleural effusions. There is no pneumothorax. Heart/Mediastinum: The cardiac silhouette appears mildly enlarged, likely accentuated by a prominent pericardial fat pad. The mediastinal and hilar contours are normal. Bones/joints: No acute osseous pathology is identified. ?? IMPRESSION: Bronchial wall thickening suggesting bronchitis or asthma. No acute CHF or pneumonia appreciated. ? THIS DOCUMENT HAS BEEN ELECTRONICALLY SIGNED BY SILVIA FERNANDO MD on 08/31/2023 06:22 PM ?? Signed By: Silvia Fernando MD Lab Results CBC and Differential?? LATEST RESULTS?? WBC?? 08/31/23 18:29?? 9.2?? RBC?? 08/31/23 18:29?? 5.16?? Hgb?? 08/31/23 18:29?? 15.5?? Hct?? 08/31/23 18:29?? 45.5?? MCV?? 08/31/23 18:29?? 88.2?? MCH?? 08/31/23 18:29?? 30.0?? MCHC?? 08/31/23 18:29?? 34.0?? RDW-CV?? 08/31/23 18:29?? 13.4?? Platelets?? 08/31/23 18:29?? 214?? MPV?? 08/31/23 18:29?? 8.5?? Segs Man?? 08/31/23 18:29?? 58?? Lymph Man?? 08/31/23 18:29?? 28.0?? Bowman Man?? 08/31/23 18:29?? 10.0 ??High?? Eos Man?? 08/31/23 18:29?? 2.00?? Baso Man?? 08/31/23 18:29?? 0.0?? Band Man?? 08/31/23 18:29?? 0?? Lymph, Atyp Man?? 08/31/23 18:29?? 2?? Abs Neut Man?? 08/31/23 18:29?? 5.3?? Abs Lymph Man?? 08/31/23 18:29?? 2.8?? Abs Bowman Man?? 08/31/23 18:29?? 0.9 ??High?? Abs Eos Man?? 08/31/23 18:29?? 0.2?? Abs Baso Man?? 08/31/23 18:29?? 0.0?? RBC Morph?? 08/31/23 18:29?? Normal?? Plt Estimation?? 08/31/23 18:29?? Normal?? Slide Review?? 08/31/23 18:29?? Man Diff? Routine Chemistry?? LATEST RESULTS?? Sodium Level?? 08/31/23 18:29?? 133 ??Low?? Potassium Level?? 08/31/23 18:29?? 4.2?? Chloride Level?? 08/31/23 18:29?? 103?? CO2?? 08/31/23 18:29?? 22?? Alk Phos?? 08/31/23 18:29?? 140 ??High?? AST?? 08/31/23 18:29?? 14?? ALT?? 08/31/23 18:29?? 22?? BUN?? 08/31/23 18:29?? 15?? Glucose Level?? 08/31/23 18:29?? 403 ??Critical?? Creatinine Level?? 08/31/23 18:29?? 1.20?? BUN/Creat Ratio?? 08/31/23 18:29?? 12.5?? eGFR CKD-EPI?? 08/31/23 18:29?? 69?? Calcium Level?? 08/31/23 18:29?? 9.2?? Protein Total?? 08/31/23 18:29?? 7.0?? Albumin Level?? 08/31/23 18:29?? 4.1?? Globulin?? 08/31/23 18:29?? 2.9?? A/G Ratio?? 08/31/23 18:29?? 1.4?? Bilirubin Total?? 08/31/23 18:29?? 0.3?? Anion Gap?? 08/31/23 18:29?? 8.0?? Beta-Hydroxybutyrate?? 08/31/23 18:29?? <0.20?? Osmolality?? 08/31/23 18:29?? 284?? Glucose POC?? 08/31/23 18:10?? 436? Electronically Signed on 08/31/2023 19:51 EDT JAMES Floyd Emergency department Discharge instructions * JAMES Floyd: PERFORM Event Display: ED Discharge Information Authored Date: [id number] MANNIE RODRIGUEZ :1965 Age:58 years Sex:Male Visit Date:08/31/2023 Primary Care Physician: OPHELIA LEE MD Discharge Instructions We would like to thank you for allowing us to assist you with your healthcare needs. The following includes patient education materials and information regarding your injury/illness. Diagnosis from Today's Visit Acute bronchitis Hyperglycemia Discharge Vitals Temperature??(Oral) 98.4 ??F (36.9 ??C) Heart Rate??(Peripheral) 66 Heart Rate??(Monitored) 67 Respiratory Rate?? 23 Blood Pressure?? 115/64?? SpO2?? 98% Height?? 65.75 in (167 cm) Weight?? 227.12 lb (103 kg) BMI?? 36.93 Allergies predniSONE??(Vomiting) What to Do Next You Need to Schedule the Following Appointments Follow Up with??ROSA TATE, OPHELIA Marte When:??Within 1 week Why: As we discussed your chest x-ray today does not show any evidence of pneumonia. ??Your blood sugar was elevated today??however the remaining laboratory studies were reassuring.?? You should continue to take your medications. ??Follow-up closely with your primary care physician. ??Return for worsening in symptoms. Where: [address] [place], [place] [id number] You were treated today on an emergency basis; it may be ramos to contact your primary care provider to notify them of your visit today. You may have been referred to your regular doctor or a specialist, please follow up as instructed. If your condition worsens or you can't get in to see the doctor, contact the Emergency Department. Medications What When Instructions Next Dose Unchanged albuterol (Ventolin HFA 90 mcg/ inh inhalation aerosol) Unchanged aspirin (Aspirin Low Dose 81 mg oral delayed release tablet) Unchanged atorvastatin (atorvastatin 10 mg oral tablet) Unchanged azithromycin (azithromycin 250 mg oral tablet) Unchanged benzonatate (benzonatate 200 mg oral capsule) Unchanged lisinopril (lisinopril 5 mg oral tablet) Unchanged metFORMIN (MetFORMIN (Eqv-Glucophage XR) 500 mg oral tablet, extended release) Unchanged nicotine (nicotine 2 mg oral transmucosal lozenge) Unchanged nicotine (nicotine 7 mg/ 24 hr transdermal film, extended release) Unchanged pantoprazole (pantoprazole 40 mg oral delayed release tablet) Unchanged sucralfate (sucralfate 1 g oral tablet) Unchanged tamsulosin (tamsulosin 0.4 mg oral capsule) Education Materials Acute Bronchitis, Adult Acute bronchitis is sudden inflammation of the main airways (bronchi) that come off the windpipe (trachea) in the lungs. The swelling causes the airways to get smaller and make more mucus than normal. This can make it hard to breathe and can cause coughing or noisy breathing (wheezing). Acute bronchitis may last several weeks. The cough may last longer. Allergies, asthma, and exposureto smoke may make the condition worse. What are the causes? This condition can be caused by germs and by substances that irritate the lungs, including: ? Cold and flu viruses. The most common cause of this condition is the virus that causes the common cold. ? Bacteria. This is less common. ? Breathing in substances that irritate the lungs, including: ? Smoke from cigarettes and other forms of tobacco. ? Dust and pollen. ? Fumes from household cleaning products, gases, or burned fuel. ? Indoor or outdoor air pollution. What increases the risk? The following factors may make you more likely to develop this condition: ? A weak body's defense system, also called the immune system. ? A condition that affects your lungs and breathing, such as asthma. What are the signs or symptoms? Common symptoms of this condition include: ? Coughing. This may bring up clear, yellow, or green mucus from your lungs (sputum). ? Wheezing. ? Runny or stuffy nose. ? Having too much mucus in your lungs (chest congestion). ? Shortness of breath. ? Aches and pains, including sore throat or chest. How is this diagnosed? This condition is usually diagnosed based on: ? Your symptoms and medical history. ? A physical exam. You may also have other tests, including tests to rule out other conditions, such as pneumonia. These tests include: ? A test of lung function. ? Test of a mucus sample to look for the presence of bacteria. ? Tests to check the oxygen level in your blood. ? Blood tests. ? Chest X-ray. How is this treated? Most cases of acute bronchitis clear up over time without treatment. Your health care provider may recommend: ? Drinking more fluids to help thin your mucus so it is easier to cough up. ? Taking inhaled medicine (inhaler) to improve air flow in and out of your lungs. ? Using a vaporizer or a humidifier. These are machines that add water to the air to help you breathebetter. ? Taking a medicine that thins mucus and clears congestion (expectorant). ? Taking a medicine that prevents or stops coughing (cough suppressant). It is not common to take an antibiotic medicine for this condition. Follow these instructions at home: ? Take rzqz-pnk-arazgnj and prescription medicines only as told by your health care provider. ? Use an inhaler, vaporizer, or humidifier as told by your health care provider. ? Take two teaspoons (10 mL) of honey at bedtime to lessen coughing at night. ? Drink enough fluid to keep your urine pale yellow. ? Do not use any products that contain nicotine or tobacco. These products include cigarettes, chewing tobacco, and vaping devices, such as e-cigarettes. If you need help quitting, ask your health careprovider. ? Get plenty of rest. ? Return to your normal activities as told by your health care provider. Ask your health care provider what activities are safe for you. ? Keep all follow-up visits. This is important. How is this prevented? To lower your risk of getting this condition again: ? Wash your hands often with soap and water for at least 20 seconds. If soap and water are not available, use hand tax commissioner. ? Avoid contact with people who have cold symptoms. ? Try not to touch your mouth, nose, or eyes with your hands. ? Avoid breathing in smoke or chemical fumes. Breathing smoke or chemical fumes will make your condition worse. ? Get the flu shot every year. Contact a health care provider if: ? Your symptoms do not improve after 2 weeks. ? You have trouble coughing up the mucus. ? Your cough keeps you awake at night. ? You have a fever. Get help right away if you: ? Cough up blood. ? Feel pain in your chest. ? Have severe shortness of breath. ? Faint or keep feeling like you are going to faint. ? Have a severe headache. ? Have a fever or chills that get worse. These symptoms may represent a serious problem that is an emergency. Do not wait to see if the symptoms will go away. Get medical help right away. Call your local emergency services (911 in the [place] Do not drive yourself to the hospital. Summary ? Acute bronchitis is inflammation of the main airways (bronchi) that come off the windpipe (trachea)in the lungs. The swelling causes the airways to get smaller and make more mucus than normal. ? Drinking more fluids can help thin your mucus so it is easier to cough up. ? Take lnfv-bgq-swuqccp and prescription medicines only as told by your health care provider. ? Do not use any products that contain nicotine or tobacco. These products include cigarettes, chewing tobacco, and vaping devices, such as e-cigarettes. If you need help quitting, ask your health careprovider. ? Contact a health care provider if your symptoms do not improve after 2 weeks. This information is not intended to replace advice given to you by your health care provider. Make sure you discuss any questions you have with your health care provider. Document Revised: 05/15/2022 Document Reviewed: 06/05/2021 [employer] Patient Education ?? 2022 [employer] Tests Performed Radiology XR Chest 2 Views 08/31/2023 18:22 EDT Medications and Immunizations Administered Given NS drip, 1000 mL, Medication Bolus Lab Test Name Test Result Date/Time WBC 9.2 K/mcL 08/31/2023 18:29 EDT RBC 5.16 Million/mcL 08/31/2023 18:29 EDT Hgb 15.5 g/dL 08/31/2023 18:29 EDT Hct 45.5 % 08/31/2023 18:29 EDT MCV 88.2 fL 08/31/2023 18:29 EDT MCH 30.0 pg 08/31/2023 18:29 EDT MCHC 34.0 g/dL 08/31/2023 18:29 EDT RDW-CV 13.4 % 08/31/2023 18:29 EDT Platelets 214 K/mcL 08/31/2023 18:29 EDT MPV 8.5 fL 08/31/2023 18:29 EDT Segs Man 58 08/31/2023 18:29 EDT Lymph Man 28.0 % 08/31/2023 18:29 EDT Bowman Man 10.0 % 08/31/2023 18:29 EDT Eos Man 2.00 % 08/31/2023 18:29 EDT Baso Man 0.0 % 08/31/2023 18:29 EDT Band Man 0 % 08/31/2023 18:29 EDT Lymph, Atyp Man 2 % 08/31/2023 18:29 EDT Abs Neut Man 5.3 K/mcL 08/31/2023 18:29 EDT Abs Lymph Man 2.8 K/mcL 08/31/2023 18:29 EDT Abs Bowman Man 0.9 K/mcL 08/31/2023 18:29 EDT Abs Eos Man 0.2 K/mcL 08/31/2023 18:29 EDT Abs Baso Man 0.0 K/mcL 08/31/2023 18:29 EDT RBC Morph Normal 08/31/2023 18:29 EDT Plt Estimation Normal 08/31/2023 18:29 EDT Slide Review Man Diff 08/31/2023 18:29 EDT Sodium Level 133 mmol/L 08/31/2023 18:29 EDT Potassium Level 4.2 mmol/L 08/31/2023 18:29 EDT Chloride Level 103 mmol/L 08/31/2023 18:29 EDT CO2 22 mmol/L 08/31/2023 18:29 EDT Alk Phos 140 IntlUnit/L 08/31/2023 18:29 EDT AST 14 IntlUnit/L 08/31/2023 18:29 EDT ALT 22 IntlUnit/L 08/31/2023 18:29 EDT BUN 15 mg/dL 08/31/2023 18:29 EDT Glucose Level 403 mg/dL 08/31/2023 18:29 EDT Creatinine Level 1.20 mg/dL 08/31/2023 18:29 EDT BUN/Creat Ratio 12.5 08/31/2023 18:29 EDT eGFR CKD-EPI 69 mL/min/1.73 m2 08/31/2023 18:29 EDT Calcium Level 9.2 mg/dL 08/31/2023 18:29 EDT Protein Total 7.0 g/dL 08/31/2023 18:29 EDT Albumin Level 4.1 g/dL 08/31/2023 18:29 EDT Globulin 2.9 g/dL 08/31/2023 18:29 EDT A/G Ratio 1.4 g/dL 08/31/2023 18:29 EDT Bilirubin Total 0.3 mg/dL 08/31/2023 18:29 EDT Anion Gap 8.0 08/31/2023 18:29 EDT Beta-Hydroxybutyrate <0.20 mm 08/31/2023 18:29 EDT Osmolality 284 mOsm/kg 08/31/2023 18:29 EDT Glucose POC 436 08/31/2023 18:10 EDT Patient/Contact Lens Flashing Puncher Signature Patient Name:CHRIS RODRIGUEZBILL Renteria I have received this information and my questions have been answered. Patient/Contact Lens Flashing Puncher Name: Patient/Contact Lens Flashing Puncher Signature: Relationship to Patient: Witness Name/Signature: Date: Electronically Signed on: 08/31/2023 19:45 EDTSigned by:BRIDGER Patient Care team information Care Team Personnel Name: ROSA TATE, OPHELIA Marte Position: No Access Member Role: Primary Care Physician Address: Address: [address] [place] [phone]
--- OUTSIDE RECORDS SUMMARY | 2023-09-10 00:48 | XMS_ITS | Encounter Summary ---
Author Organization [facility] Address [address] [place] [address] Care Team Providers Care Gunner'S Mate Name Role Phone Garth Marroquin DO Primary Care Provider [phone] Encounter Details Date Type Department Care Team (Late st Contact Info) Description 10/24/2019 Lab Requisition [facility] Pathology & Laboratory Medicine - [facility] [address], [place] [id number] Outr Resulting Lab, Provider Social History Tobacco Use Types Packs/Day Years Used Date Smoking Tobacco: Every Day Cigarettes 3 47.6 Started: 1978 Smokeless Tobacco: Never Comments:currently 2pks per day Interpersonal Safety Answer Date Record ed Physically Hurt Never 09/18/2019 Verbally Threaten Not on file 09/18/2019 Sex and Gender Information Value Date Recorded Sex Assigned at Not on file Gender Identity Not on file Sexual Orientation Not on file documented as of this encounter Plan of Treatment Not on file documented as of this encounter Procedures Procedure Name Priority Date/Time Associated Diagnosis Comments DO NOT ORDER STANDALONE - BROAD COVID TEST Today 10/24/2019 9:09 EDT COVID-19 TESTING Routine 10/24/2019 9:09 EDT documented in this encounter Results * DO NOT ORDER STANDALONE - BROAD COVID TEST (10/24/2019 9:09 EDT) COVID-19 rt-PCR Result NEGATIVE Negative 10/25/2019 12:27 EDT [facility] Comment: 2019-novel Coronavirus (2019-nCoV) not detected by the qRT-PCR assay. Consider testing for other respiratory viruses or re-collecting for 2019-nCoV testing. Note: Optimum timing for peak viral levels during infections caused by 2019-nCoV have not been determined. Collection of multiple specimens from the same patient may be necessary to detect the virus. Limitations Positive results are indicative of active infection with SARS-CoV-2 but do not rule out bacterial infection or co-infection with other viruses. The agent detected may not be the definite cause of disease. In addition, detection of viral RNA may not indicate the presence of infectious virus or that SARS-CoV-2 is the causative agent for clinical symptoms. Negative results do not preclude SARS-CoV-2 infection and should not be used as the sole basis for patient management decisions. Negative results must be combined with clinical observations, patient history, and epidemiological information. False negative results may also occur if amplification inhibitors are present in the specimen or if inadequate numbers of organisms are present in the specimen. Optimum specimen types and timing for peak viral levels during infections caused by SARS-CoV-2 have not been fully determined. Collection of multiple specimens (types and time points) from the same patient may be necessary to detect the virus. The test was validated for use with upper respiratory specimens obtained via nasopharyngeal or oropharyngeal swabs in VTM, UTM, M4, M5, M6, saline, and MTM media. The performance of this test has not been established for other specimens. Specimens collected using other FDA recommended Specimen Collection Materials listed in the FDA COVID-19 Diagnostic Technologies communication (May 12, 2019) are processed with the caveat that they were not all validated for use with this test and the result must be interpreted in this context. Furthermore, a false negative results may occur if a specimen is improperly collected, transported or handled. If the virus mutates in the RT-PCR target region, SARS-CoV-2 may not be detected or may be detected less predictably. Inhibitors or other types of interference may produce a false negative result. An interference study evaluating the effect of common cold medications was not performed. This test is not FDA-cleared but its performance characteristics were established by our CLIA-certified, CAP-accredited, high complexity laboratory in accordance with CLIA regulations, College [employer] [place] (CAP) guidelines (May 05, 2019), and FDA guidance (Apr 16, 2019). This test is only for use under the Food and Drug Administration's Emergency Use Authorization. Swab ENTIRE NASOPHARYNX / Unknown 10/24/2019 9:09 EDT 10/24/2019 19:46 EDT Provider Outr Resulting Lab MICROBIOLOGY - GENERAL ORDERABLES [facility] [place], [place] * COVID-19 TESTING (10/24/2019 9:09 EDT) COVID-19 rt-PCR Result NEGATIVE Negative 10/25/2019 14:38 EDT [facility] Comment: 2019-novel Coronavirus (2019-nCoV) not detected by the qRT-PCR assay. Consider testing for other respiratory viruses or re-collecting for 2019-nCoV testing. Note: Optimum timing for peak viral levels during infections caused by 2019-nCoV have not been determined. Collection of multiple specimens from the same patient may be necessary to detect the virus. Limitations Positive results are indicative of active infection with SARS-CoV-2 but do not rule out bacterial infection or co-infection with other viruses. The agent detected may not be the definite cause of disease. In addition, detection of viral RNA may not indicate the presence of infectious virus or that SARS-CoV-2 is the causative agent for clinical symptoms. Negative results do not preclude SARS-CoV-2 infection and should not be used as the sole basis for patient management decisions. Negative results must be combined with clinical observations, patient history, and epidemiological information. False negative results may also occur if amplification inhibitors are present in the specimen or if inadequate numbers of organisms are present in the specimen. Optimum specimen types and timing for peak viral levels during infections caused by SARS-CoV-2 have not been fully determined. Collection of multiple specimens (types and time points) from the same patient may be necessary to detect the virus. The test was validated for use with upper respiratory specimens obtained via nasopharyngeal or oropharyngeal swabs in VTM, UTM, M4, M5, M6, saline, and MTM media. The performance of this test has not been established for other specimens. Specimens collected using other FDA recommended Specimen Collection Materials listed in the FDA COVID-19 [employer] communication (May 12, 2019) are processed with the caveat that they were not all validated for use with this test and the result must be interpreted in this context. Furthermore, a false negative results may occur if a specimen is improperly collected, transported or handled. If the virus mutates in the RT-PCR target region, SARS-CoV-2 may not be detected or may be detected less predictably. Inhibitors or other types of interference may produce a false negative result. An interference study evaluating the effect of common cold medications was not performed. This test is not FDA-cleared but its performance characteristics were established by our CLIA-certified, CAP-accredited, high complexity laboratory in accordance with CLIA regulations, College of [place] (CAP) guidelines (May 05, 2019), and FDA guidance (Apr 16, 2019). This test is only for use under the Food and Drug Administration's Emergency Use Authorization. Performing Lab [facility] [place] 10/25/2019 14:38 EDT [facility] Swab 10/24/2019 9:09 EDT 10/24/2019 19:46 EDT Provider Outr Resulting Lab MICROBIOLOGY - GENERAL ORDERABLES Performing Organization Address City/State/[facility] Co de Phone Number [facility] [address] [place] [id number] [facility] [place], [place] documented in this encounter Visit Diagnoses Not on filedocumented in this encounter Care Teams Gunner'S Mate Relationship Specialty Start Date End Date Garth Marroquin DO [address] [place] [address] PCP - General 10/30/17 documented as of this encounter
--- OUTSIDE RECORDS SUMMARY | 2023-09-10 00:48 | XMS_ITS | Encounter Summary ---
Author Organization [facility] Address [address] [place] [address] Care Team Providers Care Core Placer Name Role Phone Unavailable Primary Care Provider Unavailabl e Encounter Details Date Type Department Care Team (Late st Contact Info) Description 09/26/2014 Results Only [facility]- [facility] [phone] Umang Rayo MD [address] [facility] [address] [place] [address] Social History Tobacco Use Types Packs/Day Years Used Date Smoking Tobacco: Never Assessed Sex and Gender Information Value Date Recorded Sex Assigned at Not on file Gender Identity Not on file Sexual Orientation Not on file documented as of this encounter Plan of Treatment Not on file documented as of this encounter Procedures Procedure Name Priority Date/Time Associated Diagnosis Comments SURGICAL PATHOLOGY Routine 09/26/2014 9:03 EDT documented in this encounter Results * SURGICAL PATHOLOGY (09/26/2014 9:03 EDT) Pathology Report: SURGICAL PATHOLOGY REPORT Reports generated via electronic interface contain original data; however they are lacking the format of the original report. Caution should be taken when reading/interpret ing unformatted reports. Name: ? MANNIE RODRIGUEZ ? Accession #: ? [id number] ? : ? 1965 (Age: 49) ??M ? Collect Date: ? 09/26/2014 ? Location: ? [facility] ? Receive Date: ? 09/27/2014 ? Provider: PEREZ RAYO MD Copy to: PASCUAL KOCH MD ? Final Pathologic Diagnosis: A. RECTUM, POLYP, BIOPSY: - Hyperplastic polyp. B. COLON, SIGMOID, POLYP, POLYPECTOMY: - Traditional serrated adenoma. C. COLON, TRANSVERSE, POLYP, BIOPSY: - Fragments of sessile serrated adenoma. D. COLON, SIGMOID, BIOPSY: - Colonic mucosa with histologic features of benign regeneration/repa ir. E. COLON, SIGMOID, POLYP #2, BIOPSY: - Inflammatory polyp. F. RECTUM, POLYP #2, BIOPSY: - Hyperplastic polyp. Document reviewed and electronically signed by: BELLA NOGUEIRA MD Report ??Date: 09/29/2014 11:09 By the signature above, the attending physician certifies that he/she has personally conducted a gross and/or microscopic examination of the described specimens and rendered or confirmed the above diagnosis. Specimen(s) Received: A. ??Hyperplastic polyps rectum B. ??Sigmoid polyp C. ??Polyp transverse D. ??Prominent fold sigmoid E. ??Sigmoid polyp #2F. ??Rectal polyp #2 Clinical History: Clinical diagnosis code: V76.51 Gross Description: A. ?Received in formalin labelled with proper patient identification (initials M, T) and hyperplastic polyps rectum are two light rodriguez tissues (0.3 x 0.2 x 0.1 cm and 0.3 x 0.2 x 0.1 cm). Entirely submitted in block A1. B. ?Received in formalin labelled with proper patient identification (initials M, T) and sigmoid polyp is a single red-brown polypoid tissue (1.0 x 0.6 x 0.4 cm). The margin is inked black. The specimen is bisected and entirely submitted in block B1. C. ?Received in formalin labelled with proper patient identification (initials M, T) and polyp transverse is an aggregate of light rodriguez tissue fragments admixed with soft yellow-green mucinous material (1.5 x 1.0 x 0.2 cm). Submitted in toto in blocks C1 and C2. D. ?Received in formalin labelled with proper patient identification (initials M, T) and prominent fold sigmoid is a single rodriguez-brown tissue fragment (0.4 x 0.3 x 0.1 cm). Submitted intact in block D1. E. ?Received in formalin labelled with proper patient identification (initials M, T) and sigmoid polyp #2 is a single pink-rodriguez polypoid tissue (0.4 x 0.3 x 0.2 cm). The margin is inked black. ??The specimen is bisected and entirely submitted in block E1. F. ?Received in formalin labelled with proper patient identification (initials M, T) and rectal polyp #2 is a single pink-rodriguez polypoid tissue (0.4 x 0.3 x 0.2 cm). The margin is inked black. ??The specimen is submitted intact in block F1. Jinny Valdez 09/27/2014 11:29 AM End of Report [facility] 09/26/2014 9:03 EDT 09/27/2014 9:03 EDT Umang Rayo MD PATHOLOGY ORDERABLES Performing Organization Address City/State/[facility] Co de Phone Number [facility] [address] [place] [address] documented in this encounter Visit Diagnoses Not on filedocumented in this encounter
--- OUTSIDE RECORDS SUMMARY | 2023-09-10 00:48 | XMS_ITS | Encounter Summary ---
Author Organization [facility] Address [address] [place] [address] Care Team Providers Care Transplant Coordinator Name Role Phone Garth Marroquin DO Primary Care Provider [phone] Encounter Details Date Type Department Care Team (Late st Contact Info) Description 04/17/2021 Lab Requisition [facility] Pathology & Laboratory Medicine - [facility] [address] [place], [place] [address] Outr Resulting Lab, Provider Social History Tobacco [...] Procedure Name Priority Date/Time Associated Diagnosis Comments HIGH SENSITIVITY C-REACTIVE PROTEIN (CARDIOVASCULAR DISEASE) Routine 04/17/2021 10:45 EST documented in this encounter Results * HIGH SENSITIVITY C-REACTIVE PROTEIN (CARDIOVASCULAR DISEASE) (04/17/2021 10:45 EST) High Sensitivity CRP 3.59 See Note mg/L 04/17/2021 21:50 EST [facility] Comment: Reference Range: ??Low Risk: ? <1.0 mg/L ??Average Risk: ?? 1.0 - 3.0 mg/L ??High Risk: ?>3.0 mg/L ??Indeterminate*: >10.0 mg/L ??*May be an indication of another source of inflammation or infection Blood VENOUS BLOOD / Unknown 04/17/2021 10:45 EST 04/17/2021 21:30 EST Provider Outr Resulting Lab CHEMISTRY & BLOOD GAS ORDERABLES Performing Organization Address City/State/[facility] Co de Phone Number [facility] [address] [place] [address] documented in this encounter Visit Diagnoses Not on filedocumented in this encounter Care Teams Transplant Coordinator Relationship Specialty Start Date End Date Garth Marroquin DO [address] [facility] [place] [address] PCP - General 10/30/17 documented as of this encounter
--- OUTSIDE RECORDS SUMMARY | 2023-09-10 00:48 | XMS_ITS | Encounter Summary ---
Author Organization [facility] Address [address] [place] [address] Care Team Providers Care Jacquard Card Cutter Name Role Phone Garth Berg MD Primary Care Provider Unav ailable Encounter Details Date Type Department Care Team (Late st Contact Info) Description 09/29/2017 Results Only Imaging [facility] [phone] Unknown, Provider, Social History Tobacco Use Types Packs/Day Years Used Date Smoking Tobacco: Never Assessed Sex and Gender Information Value Date Recorded Sex Assigned at Not on file Gender Identity Not on file Sexual Orientation Not on file documented as of this encounter Plan of Treatment Pending Results Name Type Priority Associated Diagnoses Date /Time OUTSIDE IMAGES - CT BODY Imaging 09/29/2017 12:13 EDT OUTSIDE IMAGES - CT BODY Imaging 09/29/2017 12:13 EDT OUTSIDE IMAGES - OTHER CHEST Imaging 09/29/2017 12:13 EDT OUTSIDE IMAGES - CT BODY Imaging 09/29/2017 12:13 EDT documented as of this encounter Visit Diagnoses Not on filedocumented in this encounter Care Teams Jacquard Card Cutter Relationship Specialty Start Date End Date Garth Berg MD PCP - General 09/29/14 10/29/17 documented as of this encounter
--- OUTSIDE RECORDS SUMMARY | 2023-09-10 00:48 | XMS_ITS | Encounter Summary ---
Author Organization [facility] Address [address] [place] [address] Care Team Providers Care Information Scientist Name Role Phone Garth Marroquin DO Primary Care Provider [phone] Encounter Details Date Type Department Care Team (Late st Contact Info) Description 11/06/2017 Results Only Imaging [facility] [phone] Unknown, Provider, Social History Tobacco Use Types Packs/Day Years Used Date Smoking Tobacco: Every Day Cigarettes 3 47.6 Started: 1978 Smokeless Tobacco: Never Comments:currently 2pks per day Sex and Gender Information Value Date Recorded Sex Assigned at Not on file Gender Identity Not on file Sexual Orientation Not on file documented as of this encounter Plan of Treatment Pending Results Name Type Priority Associated Diagnoses Date /Time OUTSIDE IMAGES - CT CHEST Imaging 11/06/2017 17:14 EDT documented as of this encounter Visit Diagnoses Not on filedocumented in this encounter Care Teams Information Scientist Relationship Specialty Start Date End Date Garth Marroquin DO [address] [place] [phone] PCP - General 10/30/17 documented as of this encounter
--- OUTSIDE RECORDS SUMMARY | 2023-09-10 00:48 | XMS_ITS | Encounter Summary ---
Author Organization [facility] Address [address] [place] [address] Care Team Providers Care Aluminum Boat Assembly Supervisor Name Role Phone Garth Marroquin DO Primary Care Provider [phone] Encounter Details Date Type Department Care Team (Latest Contact Info) Description 05/14/2018 8:47 EDT - 05/14/2018 23:59 EDT Hospital Encounter [address] [address] Unknown, Provider, Discharge Disposition: Home or Self Care Social History Tobacco Use Types Packs/Day Years Used Date Smoking Tobacco: Every Day Cigarettes 3 47.6 Started: 1978 Smokeless Tobacco: Never Comments:currently 2pks per day Sex and Gender Information Value Date Recorded Sex Assigned at Not on file Gender Identity Not on file Sexual Orientation Not on file documented as of this encounter Medications at Time of Discharge Medication Sig Dispensed Refills Start Date End Date aspirin 81 mg EC tablet Take 81 mg by mouth daily. docusate sodium (COLACE ORAL) Take by mouth daily. ergocalciferol, vitamin D2, (VITAMIN D ORAL) Take by mouth daily. HYDROCHLOROTHIAZIDE ORAL Take by mouth daily. lisinopril (PRINIVIL, ZESTRIL) 40 mg tablet Take 40 mg by mouth daily. metFORMIN (GLUCOPHAGE) 1,000 mg tablet Take 1,000 mg by mouth daily. nicotine (NICOTROL) 10 mg inhaler Inhale 1 cartridge as directed as needed for Smoking Cessation. 1 Box 5 11/02/2017 oxygen-air delivery systems (HORIZON NASAL CPAP SYSTEM MISC) by misc (non-drug; combo route) route at bedtime. documented as of this encounter Discharge Disposition Disposition Code Departure Means Destination Home or Self Detention documented in this encounter Plan of Treatment Not on file documented as of this encounter Visit Diagnoses Not on filedocumented in this encounter Care Teams Aluminum Boat Assembly Supervisor Relationship Specialty Start Date End Date Garth Marroquin DO [address] [place] [phone] PCP - General 10/30/17 documented as of this encounter
--- OUTSIDE RECORDS SUMMARY | 2023-09-10 00:48 | XMS_ITS | Encounter Summary ---
Author Organization [facility] Address [address] [place] [address] Care Team Providers Care Pressing Machine Tender Name Role Phone Garth Marroquin DO Primary Care Provider [phone] Encounter Details Date Type Department Care Team (Late st Contact Info) Description 12/16/2017 Pre-Procedure Orders Encounter [facility] [address] [place] [address] Nicholas Tabares PA-C [address] [facility] Level [address] [place] [phone] Social History Tobacco Use Types Packs/Day Years [...] on filedocumented in this encounter Care Teams Pressing Machine Tender Relationship Specialty Start Date End Date Garth Marroquin DO [address] [place] [phone] PCP - General 10/30/17 documented as of this encounter
--- OUTSIDE RECORDS SUMMARY | 2023-09-10 00:48 | XMS_ITS | Encounter Summary ---
Author Organization [facility] Address [address] [place] [address] Care Team Providers Care Egg Breaker Name Role Phone Unavailable Primary Care Provider Unavailabl e Encounter Details Date Type Department Care Team (Late st Contact Info) Description 03/13/2002 Results Only [facility] [address] [place] [address] Zhanna Ho MD [address] [place] [phone] Social History Tobacco Use Types Packs/Day Years Used Date Smoking Tobacco: Never Assessed Sex and Gender Information Value Date Recorded Sex Assigned at Not on file Gender Identity Not on file Sexual Orientation Not on file documented as of this encounter Plan of Treatment Not on file documented as of this encounter Procedures Procedure Name Priority Date/Time Associated Diagnosis Comments CYTOPATHOLOGY Routine 03/13/2002 0:00 EST documented in this encounter Results * CYTOPATHOLOGY (03/13/2002 0:00 EST) Pathology Report: CYTOPATHOLOGY REPORT Reports generated via electronic interface contain original data; however they are lacking the format of the original report. Caution should be taken when reading/interpreti ng unformatted reports. Name: ? MANNIE RODRIGUEZ ? Accession #: ? [id number] : ? 1965 (Age: 36) ??M ?Collect Date: ? 03/13/2002 Location: ? [facility] ? Receive Date: ? 03/15/2002 Provider: ? ZHANNA HO MD Copy to: ?LIT[employer] WILSON ENVIRONMENTAL STUDIES PROFESSOR ? CYTOLOGIC DIAGNOSIS: ? Urine, voided, cytologic material: - No malignant cells identified. ??See comment. ? COMMENT: ? The specimen is overall of very low cellularity. ??There are rare markedly degenerated but benign appearing transitional cells present. ??(Dr. Faith)/[facility] Document reviewed and electronically signed by: ? Daysi Faith MD Report Date: ??03/18/2002 09:04 By the signature above, the attending physician certifies that he/she has personally conducted a gross and/or microscopic examination of the described specimens and rendered or confirmed the above diagnosis. Specimen Type: ? Urine, Voided, pooled x 3 Clinical History: ? Clinical diagnosis code: 788.41 ? Gross Description: ? 3 tube of CytoLyt were received and processed (pooled x 3) by concentration technique. ? End of Report TRACEY COLE 03/13/2002 03/15/2002 8:4 3 EST Zhanan Ho MD PATHOLOGY ORDERABLES TRACEY COLE [address] [place] [address] documented in this encounter Visit Diagnoses Not on filedocumented in this encounter
--- OUTSIDE RECORDS SUMMARY | 2023-09-10 00:48 | XMS_ITS | Referral Summary ---
Author Organization [facility] Address [address] [place] [address] Care Team Providers Care Linen Room Supervisor Name Role Phone Garth Marroquin DO Primary Care Provider [phone] Allergies Active Allergy Reactions Criticality Noted Date Comments Prednisone 11/02/2017 Medications Medication Sig Dispensed Refills Start Date End Date Status metFORMIN (GLUCOPHAGE) 1,000 mg tablet Take 1,000 mg by mouth daily. Active ergocalciferol, vitamin D2, (VITAMIN D ORAL) Take by mouth daily. Active lisinopril (PRINIVIL, ZESTRIL) 40 mg tablet Take 40 mg by mouth daily. Active HYDROCHLOROTHIAZIDE ORAL Take by mouth daily. Active oxygen-air delivery systems (HORIZON NASAL CPAP SYSTEM MISC) by misc (non-drug; combo route) route at bedtime. Active aspirin 81 mg EC tablet Take 81 mg by mouth daily. Active docusate sodium (COLACE ORAL) Take by mouth daily. Active nicotine (NICOTROL) 10 mg inhaler Inhale 1 cartridge as directed as needed for Smoking Cessation. 1 Box 5 11/02/2017 Active Social History Tobacco Use Types Packs/Day Years Used Date Smoking Tobacco: Every Day Cigarettes 3 47.6 Started: 1978 Smokeless Tobacco: Never Tobacco Cessation:Ready to Q uit: Yes; Counseling Given: No Comments:currently 2pks per day Interpersonal Safety Answer Date Record ed Physically Hurt Never 09/18/2019 Verbally Threaten Not on file 09/18/2019 Sex and Gender Information Value Date Recorded Sex Assigned at Not on file Gender Identity Not on file Sexual Orientation Not on file Last Filed Vital Signs Vital Sign Reading Time Taken Comments Blood Pressure 118/84 11/02/2017 0932 EDT Pulse 66 11/02/2017 0932 EDT Temperature 36.1 ??C (97 ??F) 11/02/2017 0932 EDT Respiratory Rate 18 11/02/201732 EDT Oxygen Saturation 97% 11/02/2017 0932 EDT Inhaled Oxygen Concentration - - Weight 104.8 kg (231 lb) 11/02/2017 0932 EDT Height 167.6 cm (5' 5.98) 11/02/2017 0932 EDT Body Mass Index 37.3 11/02/2017 0932 EDT Plan of Treatment Not on file Care Teams Linen Room Supervisor Relationship Specialty Start Date End Date Garth Marroquin DO [address] [place] [phone] PCP - General 9/14/18
--- OUTSIDE RECORDS SUMMARY | 2023-09-10 00:48 | XMS_ITS | Encounter Summary ---
Author Organization [facility] Address [address] [place] [address] Care Team Providers Care Degreasing Solution Reclaimer Name Role Phone Garth Marroquin DO Primary Care Provider [phone] Reason for Referral * Radiology Services (Routine) - Authorization Not Required Specialty Diagnoses / Procedures Referred By Contac t Referred To Contact Diagnoses Lung nodule Procedures CT CHEST W CONTRAST Troy Ray MD [address] [place] [phone] Referral ID Status Reason Start Date Expiration Date Visits Requested Visits Authorized [id number] Authorization Not Required 11/02/2017 1 1 Reason for Visit * Reason Comments New Patient Visit * Consult (Routine) - Closed Specialty Diagnoses / Procedures Referred By Contyashira grossman Referred To Contact Diagnoses Pulmonary nodule Garth Marroquin DO [address] [place] [phone] Referral ID Status Reason Start Date Expiration Date Visits Re quested Visits Authorized [id number] Closed 1 1 Encounter Details Date Type Department Care Team (Late st Contact Info) Description 11/02/2017 10:00 EDT Office Visit [facility] Pulmonology & Critical Care - [address] [phone] Troy Ray MD [address] [place] [phone] Lung nodule (Primary Dx) Discharge Disposition: Auto Discharge Social History Tobacco Use Types Packs/Day Years Used Date Smoking Tobacco: Every Day Cigarettes 3 47.6 Started: 1978 Smokeless Tobacco: Never Tobacco Cessation:Ready to Q uit: Yes; Counseling Given: No Comments:currently 2pks per day Sex and Gender Information Value Date Recorded Sex Assigned at Not on file Gender Identity Not on file Sexual Orientation Not on file documented as of this encounter Last Filed Vital Signs Vital Sign Reading Time Taken Comments Blood Pressure 118/84 11/02/2017 0932 EDT Pulse 66 11/02/2017 09 EDT Temperature 36.1 ??C (97 ??F) 11/02/2017 09 EDT Respiratory Rate 18 11/02/2017 09 EDT Oxygen Saturation 97% 11/02/2017 09 EDT Inhaled Oxygen Concentration - - Weight 104.8 kg (231 lb) 11/02/2017 09 EDT Height 167.6 cm (5' 5.98) 11/02/2017 0932 EDT Body Mass Index 37.3 11/02/2017 0932 EDT documented in this encounter Discharge Diagnoses Diagnosis R91.1 Solitary pulmonary nodule-R91.1[ICD-10-CM] documented in this encounter Patient Instructions * Patient Instructions* Troy Ray MD - 11/02/2017 10:00 EDT Pavan Padilla Jr. 11/02/2017 Quitting Smoking It is great that you plan to quit smoking. This is the best step you can take to improve your own health and lengthen your life. Quitting smoking will lower your risk for heart attacks, lung problems, and many forms of cancer. When you stop smoking, your loved ones will breath less smoke from the air. That will lower their risk for asthma, lung infections, heart attacks, and lung cancer. You willalso save money, look and smell better, and feel good about what you've done. Many people have quit smoking. The best way to quit is to follow the steps below (STAR) and use thetools we talked about today: Set a quit date within two weeks Tell family, friends, and coworkers about your plans, and ask for support Anticipate ways to deal with times your at high risk for smoking Remove cigarettes, matches, lighters, and ashtrays from your home, your car, your work, and wherever else you smoke. Medications to Help You Be Successful Using Nicotine patches: Stop smoking completely when you begin using the patch. Place the patch on an area of the skin without hair by removing the backing on the patch and pressing the patch on the skin. Hold for 10 seconds. Wash your hands after placing or removing a patch. The used patch should be removed and a new one applied to a different skin site at the same time each day. Since you smokemore than 1/2 a pack per day, use the patches as follows: ?? Place a new 21 mg patch each day for six weeks, then ?? Place a new 14 mg patch each day for 2 weeks, then ?? Place a new 7 mg patch each day for 2 weeks If you have problems with nightmares or sleeping, remove the patch at nighttime, and place a new patch on in the morning. Do not wear more than one patch at a time. Do not cut patch in half or into smaller pieces. Do not leave on longer than 24 hours as is may irritate your skin. Stop and call yourphysician if any of the following happens: ?? Skin redness caused by the patch does not go away after four days, or if your skin swells or youget a rash ?? Irregular heartbeat or palpitations occur ??? Nausea, vomiting, dizziness, diarrhea, weakness or rapid heartbeat - these can be symptoms of nicotine overdose. Using the Nicotrol Inhaler: Place a cartridge inside the two piece mouthpiece and twist together. Inhale on the mouthpiece in short puffs as if you were lighting a pipe. One cartridge lasts about 20 minutes of continuous inhaling. Use at least 6 cartridges per day, but no more than 16. Begin tapering the number of cartridges you use each day after 6 weeks. Do not drink 15 minutes before using theinhaler or immediately after use. The inhaler can cause local irritation, and may cause worsening of underlying asthma. Stop and callyour physician if any of the following happens: ?? Throat or mouth irritation ?? Irregular heartbeat or palpitations ?? Nausea, vomiting, dizziness, diarrhea, weakness or rapid heartbeat - these can be symptoms of nicotine overdose. Counseling available to assist you [place] Quit By Phone You have chosen the [employer]'s Quit by Phone program. Once you have made contact with this service, a counselor will call you as you try to quit. They can also give you information on help in your area, and can see if you qualify for free or low cost quit smoking medications. Please tell the counselor that you and I have already discussed medication therapy. My recommendations are describedunder Medications to Help You Succeed. Call 1-882-HWSG-NOW ( ) or contact them via the [place] [employer] website at www.GetThis.org. I hope you quit smoking. I think it's the best thing you can do for your health. Please call our office if you have any questions. Troy Ray MD Dept: [phone] Lung nodule evaluation: 1) Schedule CT scan of the chest at [facility] 2) Call [phone] and let us know when that CT is done so we can get images sent to us 3) We will talk on the phone after we've had a chance to look at the new CT scan images 4) Next steps may include a biopsy of the lung OR a PET scan documented in this encounter Ordered Prescriptions Prescription Sig Dispensed Refills Start Date End Da te nicotine (NICOTROL) 10 mg inhaler Inhale 1 cartridge as directed as needed for Smoking Cessation. 1 Box 5 11/02/2017 documented in this encounter Discharge Disposition Disposition Code Departure Means Destination Auto Discharge documented in this encounter Progress Notes * Troy Ray MD - 11/02/2017 1000 EDT [facility] - Lung Nodule Clinic New patient evaluation PCP: Garth Marroquin Chief Complaint Patient presents with ??? New Patient Visit HISTORY OF PRESENT ILLNESS: Mr. Padilla is a 52 year old man, actively smoking, referred for evaluation of a lung nodule. He has no history of lung disease or cancer. He had a series of CT scans of the abdomen because of recurring abdominal pain which he believes was due to diverticulitis. On his most recent CT scan September 27, 2017 a 15 mm somewhat spiculated solid nodule is seen in the inferior right lower lobe abutting the spine. Looking back this was present in January 2017 and does appears somewhat bigger than that.It also seems that this was present on a CT scan February 18, 2014 although is clearly increased in size compared to that date. Mr. Padilla has no active respiratory symptoms. He has no ongoing fevers, chills, night sweats, weight changes. He has chronic foot and back pain for which he is on disability; he has trouble standing for prolonged periods of time but is able to walk up one flight of stairs without stopping. He is currently smoking 2 packs per day. He recently quit for about 6 weeks after getting the CT scan results in September that he has since restarted. He initially started smoking at age 11. At home, his does not smoke but his children do. 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 He is unaware of any distinct exposures during his time working in that job. There is no history of coronary coronary disease and he does not have any cardiac stents. He has not had a history of stroke. He has had minor procedures but no surgeries in the past. With his minor procedures including colonoscopy he had no issues with sedation. He does have obstructive sleep apnea for which he uses CPAP on a nightly basis. SMOKING HISTORY reports that he has been smoking Cigarettes. He started smoking about 41 years ago. He has been smoking about 3.00 packs per day. He has never used smokeless tobacco. IMAGING FINDINGS I have independently reviewed the images from the CT abdomen dated 09/27/2017 PAST MEDICAL HISTORY PAST SURGICAL HISTORY Past Medical History: Diagnosis Date ??? Diabetes mellitus ([facility]) ??? Hypertension ??? Obstructive sleep apnea ??? Smoking greater than 40 pack years No past surgical history on file. CURRENT MEDICATIONS: ALLERGIES: Current Outpatient Prescriptions Medication Sig Dispense Refill ??? aspirin 81 mg EC tablet Take 81 mg by mouth daily. ??? docusate sodium (COLACE ORAL) Take by mouth daily. ??? ergocalciferol, vitamin D2, (VITAMIN D ORAL) Take by mouth daily. ??? HYDROCHLOROTHIAZIDE ORAL Take by mouth daily. ??? lisinopril (PRINIVIL, ZESTRIL) 40 mg tablet Take 40 mg by mouth daily. ??? metFORMIN (GLUCOPHAGE) 1,000 mg tablet Take 1,000 mg by mouth daily. ??? nicotine (NICOTROL) 10 mg inhaler Inhale 1 cartridge as directed as needed for Smoking Cessation. 1 Box 5 ??? oxygen-air delivery systems (HORIZON NASAL CPAP SYSTEM MISC) by misc (non- drug; combo route) route at bedtime. No current facility-administered medications for this visit. is allergic to prednisone. FAMILY HISTORY SOCIAL HISTORY family history includes Lung Cancer in his father. Social History Social History ??? Marital status: Spouse name: N/A ??? Number of children: N/A ??? Years of education: N/A Occupational History ??? Not on file. Social History Main Topics ??? Smoking status: Current Every Day Smoker Packs/day: 3.00 Types: Cigarettes Start date: 1978 ??? Smokeless tobacco: Never Used Comment: currently 2pks per day ??? Alcohol use Not on file ??? Drug use: Not on file ??? Sexual activity: Not on file Other Topics Concern ??? Not on file Social History Narrative ??? No narrative on file 14 point ROS questionnaire negative except for: As above PHYSICAL EXAM: BP 118/84 Pulse 66 Temp 36.1 ??C (97 ??F) (Tympanic) Resp 18 Ht 167.6 cm (65.98) Wt (!) 104.8 kg (231 lb) SpO2 97% BMI 37.3 kg/m2 In general, he is sitting comfortably and conversing in complete sentences without overt resting dyspnea. Sclerae are anicteric. There is no conjunctival injection. His oropharynx is clear without thrush. He has a Mallampati 3 airway view. He is edentulous. There is a large neck circumference. There is no supraclavicular or cervical lymphadenopathy appreciated on palpation. Trachea is midline. Onrespiratory exam, he has symmetric air entry without crackles, wheezes, rhonchi. On cardiac exam jimmy regular rate and rhythm without a murmur. Abdomen is obese and nontender. There is no peripheral cyanosis, clubbing, edema. PULMONARY FUNCTION TESTS: Pulmonary function tests were deferred IMPRESSION 1. Solid nodule right lower lobe. There is been a slow progressive change in the size of this rightlower lobe nodule since 2015. Particular along with his history, cancer is a concern. At this pointwe do need a diagnostic CT of the chest to better characterize the lesion, evaluate for any other lesions and see if there is any associated adenopathy. This can be done in [facility]. Following this, he may need a percutaneous biopsy or PET scan. 2. Active smoking. He is currently smoking 2 packs per day. We had a long discussion today about the risks of smoking particularly while we are evaluating potentially treating a lung cancer. Even if this does not wood turner to be cancer, smoking cessation is strongly encouraged. We discussed using patches plus the nicotine inhaler. RECOMMENDATIONS 1. CT scan of the chest to be requested from [facility]. I instructed the patient to call our office when this has been done so we can obtain the images for review. Other evaluation is going to depend on the results of the scan. 2. Start using nicotine patch 21mg daily and use Nicotrol inhaler for breakthrough cravings. Counseled on smoking cessation Yes Thank you for letting me participate in the care of Pavan Padilla Jr.. I will see him back in2 months pending results of these investigations. Please call me at [phone] if any further questions arise. Troy Ray MD Pulmonary and Critical Care Medicine [facility] Other Orders Placed This Visit Procedures ??? CT CHEST W CONTRAST ??? Creatinine documented in this encounter Plan of Treatment Scheduled Orders Name Type Priority Associated Diagnoses Orde r Schedule CT CHEST W CONTRAST Imaging Routine Lung nodule Ordered: 11/02/2017 documented as of this encounter Visit Diagnoses Diagnosis Lung nodule- Primary Solitary pulmonary nodule documented in this encounter Historical Medications * This list may reflect changes made after this encounter. Medication Sig Dispensed Refills Start Date End Date docusate sodium (COLACE ORAL) Take by mouth daily. aspirin 81 mg EC tablet Take 81 mg by mouth daily. oxygen-air delivery systems (HORIZON NASAL CPAP SYSTEM MISC) by misc (non-drug; combo route) route at bedtime. HYDROCHLOROTHIAZIDE ORAL Take by mouth daily. lisinopril (PRINIVIL, ZESTRIL) 40 mg tablet Take 40 mg by mouth daily. ergocalciferol, vitamin D2, (VITAMIN D ORAL) Take by mouth daily. metFORMIN (GLUCOPHAGE) 1,000 mg tablet Take 1,000 mg by mouth daily. added in this encounter Care Teams Degreasing Solution Reclaimer Relationship Specialty Start Date End Date Garth Marroquin DO [address] [facility] [place] [phone] PCP - General 10/30/17 documented as of this encounter
--- OUTSIDE RECORDS SUMMARY | 2023-09-10 00:48 | XMS_ITS | Encounter Summary ---
Author Organization [facility] Address [address] [place] [address] Care Team Providers Care Healthcare Marketer Name Role Phone Garth Marroquin DO Primary Care Provider [phone] Encounter Details Date Type Department Care Team (Late st Contact Info) Description 05/17/2018 Results [facility] [phone] Sonny Medina MD [address] [place] [address] Social History Tobacco Use Types Packs/Day Years [...] Date/Time Associated Diagnosis Comments SURGICAL PATHOLOGY Routine 05/14/2018 16 :33 EDT documented in this encounter Results * SURGICAL PATHOLOGY (05/14/2018 16:33 EDT) Pathology Report: SURGICAL PATHOLOGY REPORT Reports generated via electronic interface contain original data; however they are lacking the format of the original report. Caution should be taken when reading/interpret ing unformatted reports. Name: ? MANNIE RODRIGUEZ JR ? Accession #: ? [id number] ? : ? 1965 (Age: 52) ??M ? Collect Date: ? 05/14/2018 ? Location: ? [facility] ? Receive Date: ? 05/17/2018 ? Provider: SONNY MEDINA MD Copy to: ? Final Pathologic Diagnosis: COLON, CECUM, POLYP, BIOPSY: - Fragments of sessile serrated adenoma. - Subepithelial fibrofatty tissue is present. Document reviewed and electronically signed by: HOLDEN DESOUZA MD Report ??Date: 05/19/2018 09:29 By the signature above, the attending physician certifies that he/she has personally conducted a gross and/or microscopic examination of the described specimens and rendered or confirmed the above diagnosis. Specimen(s) Received: Cecal polyp Clinical History: Screening colonoscopy; hx of colon polyps; clinical diagnosis code: ??Z86.010, K57.92, Z12.11 Gross Description: ? Received in formalin labelled with proper patient identification (initials M, T) and cecal polyp are multiple fragments of brown tissue ranging from 0.3-1.5 cm in greatest dimension. The specimens are entirely submitted in 1-2. JAMES Romero (ASCP) 05/17/2018 4:40 PM End of Report [facility] 05/14/2018 16:3 3 EDT 05/17/2018 16:33 EDT Sonny Medina MD PATHOLOGY ORDERABLES [facility] [address] [place] [address] documented in this encounter Visit Diagnoses Not on filedocumented in this encounter Care Teams Healthcare Marketer Relationship Specialty Start Date End Date Garth Marroquin DO [address] [place] [phone] PCP - General 10/30/17 documented as of this encounter
--- OUTSIDE RECORDS SUMMARY | 2023-09-10 00:48 | XMS_ITS | Encounter Summary ---
Author Organization [facility] Address [address] [place] [address] Care Team Providers Care Slip Maker Name Role Phone Garth Marroquin DO Primary Care Provider [phone] Reason for Visit * Reason Onset Date Comments Appointment Related 11/17/2017 IR BX Encounter Details Date Type Department Care Team (Late st Contact Info) Description 11/17/2017 Telephone [facility] Interventional Radiology - [facility] [address] [place], [place] [id number] Colton Edmond MD [address] [facility], [address] [place] [address] Appointment Related (IR BX ) Social History Tobacco Use Types Packs/Day Years Used Date Smoking Tobacco: Every Day Cigarettes 3 47.6 Started: 1978 Smokeless Tobacco: Never Comments:currently 2pks per day Sex and Gender Information Value Date Recorded Sex Assigned at Not on file Gender Identity Not on file Sexual Orientation Not on file documented as of this encounter Miscellaneous Notes * Telephone Encounter - Dolores Miranda - 11/17/2017 1009 EDT Called and spoke with Pavan in regards to scheduling their IR biopsy requested by Dr. Ray. Mr. Padilla will be coming in on December 01 at 12:00PM, checking in at 1145 at registration. They understand that they will need a driver trainee, and that they should plan on being NPO six hours prior to this procedure. Mr. Padilla can have clear liquids two hours prior to their check in time. They will take their morning medications with a small sip of water. Confirmed that they are not taking over the counter pain medication regularly and will not do so two days prior to this procedure. Confirmed that they are not taking blood thinning medication. I put a letter in the mail with pre procedure confirmation as well as prep instructions. I will inform the ordering office of this scheduled date and time. Routed to pulmonary PSS pool. Mr. Padilla verbalized understanding and agrees with Plan of Care. No cognitive barriers were identified during this conversation. He has our contact number to call with questions. Dolores Miranda documented in this encounter Plan of Treatment Not on file documented as of this encounter Visit Diagnoses Not on filedocumented in this encounter Care Teams Slip Maker Relationship Specialty Start Date End Date Garth Marroquin DO [address] [place] [address] PCP - General 10/30/17 documented as of this encounter
--- OUTSIDE RECORDS SUMMARY | 2023-09-10 00:48 | XMS_ITS | Encounter Summary ---
Author Organization [facility] Address [address] [place] [address] Care Team Providers Care Inclusion Teacher Name Role Phone Garth Marroquin DO Primary Care Provider [phone] Reason for Visit * Reason Onset Date Comments Appointment Related 11/30/2017 Reschedule I R Biopsy Encounter Details Date Type Department Care Team (Late st Contact Info) Description 11/30/2017 Telephone [facility] Interventional Radiology - [facility] [address] [place], [place] [id number] Colton Edmond MD [address] [facility], [address] [place] [address] Appointment Related (Reschedule IR Biopsy) Social History Tobacco Use Types Packs/Day Years Used Date Smoking Tobacco: Every Day Cigarettes 3 47.6 Started: 1978 Smokeless Tobacco: Never Comments:currently 2pks per day Sex and Gender Information Value Date Recorded Sex Assigned at Not on file Gender Identity Not on file Sexual Orientation Not on file documented as of this encounter Miscellaneous Notes * Telephone Encounter - Brianna Linn - 11/30/2017 1012 EDT Pavan called to reschedule his IR Lung Biopsy which is scheduled for tomorrow 12/01 at noon. He is having trouble finding a reliable ride. He is rescheduled to December 17 at noon. documented in this encounter Plan of Treatment Not on file documented as of this encounter Visit Diagnoses Not on filedocumented in this encounter Care Teams Inclusion Teacher Relationship Specialty Start Date End Date Garth Marroquin DO [address] [place] [phone] PCP - General 10/30/17 documented as of this encounter
--- OUTSIDE RECORDS SUMMARY | 2023-09-10 00:48 | XMS_ITS | Encounter Summary ---
Author Organization [facility] Address [address] [place] [address] Care Team Providers Care Preparation Department Supervisor Name Role Phone Unavailable Primary Care Provider Unavailabl e Encounter Details Date Type Department Care Team (Latest Contact Info) Description 09/26/2014 11:21 EDT - 09/26/2014 23:59 EDT Hospital Encounter [address] [address] Unknown, Provider, Discharge Disposition: Home or Self Care Social History Tobacco Use Types Packs/Day Years Used Date Smoking Tobacco: Never Assessed Sex and Gender Information Value Date Recorded Sex Assigned at Not on file Gender Identity Not on file Sexual Orientation Not on file documented as of this encounter Discharge Disposition Disposition Code Departure Means Destination Home or Self [place] documented in this encounter Plan of Treatment Not on file documented as of this encounter Visit Diagnoses Not on filedocumented in this encounter
--- OUTSIDE RECORDS SUMMARY | 2023-09-10 00:48 | XMS_ITS | Clinical Summary ---
Author Organization [facility] Address [address] [place] [address] Care Team Providers Care Biomedical Engineering Professor Name Role Phone Garht Marroquin DO Primary Care Provider [phone] Allergies Active Allergy Reactions Criticality Noted Date [...] Smoking Cessation. 1 Box 5 11/02/2017 Active Medical History Medical History Date Comments Diabetes mellitus ([facility]) Hypertension Smoking greater than 40 pack years Obstructive sleep apnea Family History Medical History Relation Comments Lung Cancer Father Relation Status Comments Father Social History Tobacco Use Types Packs/Day Years [...] on file Sexual Orientation Not on file Obstetrics History Last Filed Vital Signs Vital Sign Reading Time Taken Comments Blood Pressure 118/84 11/02/2017 0932 EDT Pulse 66 11/02/2017 0932 EDT Temperature 36.1 ??C (97 ??F) 11/02/2017 0932 EDT Respiratory Rate 18 11/02/2017 0932 EDT Oxygen Saturation 97% 11/02/2017 0932 EDT Inhaled Oxygen Concentration - - Weight 104.8 kg (231 lb) 11/02/2017 0932 EDT Height 167.6 cm (5' 5.98) 11/02/2017 0932 EDT Body Mass Index 37.3 11/02/2017 0932 EDT Plan of Treatment Health Maintenance Due Date Last Done Comments Hepatitis C Screen 1965 Pneumococcal Immunization (1 of 2 - PCV) 08/21/1969 COVID-19 Vaccine ( - 2022-24 season) 2022 RSV Immunization ( o r 60+ Years) (1 - 1-dose 60+ series) 2023 Care Teams Biomedical Engineering Professor Relationship Specialty Start Date End Date Garth Marroquin DO [address] [place] [phone] PCP - General 10/30/17
--- OUTSIDE RECORDS SUMMARY | 2023-09-10 00:48 | XMS_ITS | Encounter Summary ---
Author Organization [facility] Address [address] [place] [address] Care Team Providers Care Financial Market Dealer Name Role Phone Garth Marroquin DO Primary Care Provider [phone] Encounter Details Date Type Department Care Team (Late st Contact Info) Description 07/04/2022 Lab Requisition [facility] Pathology & Laboratory Medicine - [facility] [address] [place], [place] [address] Outr Resulting Lab, Provider Social History Tobacco [...] Procedure Name Priority Date/Time Associated Diagnosis Comments PSA TOTAL, DIAGNOSTIC Routine 07/04/2022 15:00 EDT documented in this encounter Results * PSA TOTAL, DIAGNOSTIC (07/04/2022 15:00 EDT) PSA 0.6 <=3.5 ng/mL 07/07/2022 9:23 EDT [facility] Blood VENOUS BLOOD / Unknown 07/04/2022 15:00 EDT 07/04/2022 21:27 EDT Narrative [facility] - 07/07/2022 9:23 EDT NOTE: Serum PSA concentration should not be interpreted as absolute evidence for the presence or absence of malignant disease. Assayed on Siemens ADVIA Torax Medicalaur XPT using chemiluminescent technology.??Values obtained by using different assay methods cannot be used interchangeably. Provider Outr Resulting Lab CHEMISTRY & BLOOD GAS ORDERABLES [facility] [address] [place] [address] documented in this encounter Visit Diagnoses Not on filedocumented in this encounter Care Teams Financial Market Dealer Relationship Specialty Start Date End Date Garth Marroquin DO [address] [facility] [place] [phone] PCP - General 10/30/17 documented as of this encounter
--- OUTSIDE RECORDS SUMMARY | 2023-09-10 00:48 | XMS_ITS | Encounter Summary ---
Author Organization [facility] Address [address] [place] [address] Care Team Providers Care Strip Mine Supervisor Name Role Phone Garth Marroquin DO Primary Care Provider [phone] Reason for Visit * Reason Onset Date Comments Patient Information Update 11/06/2017 Results 11/09/2017 Returning Call 11/09/2017 Encounter Details Date Type Department Care Team (Late st Contact Info) Description 11/06/2017 Telephone [facility] Pulmonology & Critical Care - [facility] [address] [place] [address] Troy Ray MD [address] [place] [address], [address] [place] [address] Patient Information Update; Results; Returning Call Social History Tobacco Use Types Packs/Day Years Used Date Smoking Tobacco: Every Day Cigarettes 3 47.6 Started: 1978 Smokeless Tobacco: Never Comments:currently 2pks per day Sex and Gender Information Value Date Recorded Sex Assigned at Not on file Gender Identity Not on file Sexual Orientation Not on file documented as of this encounter Miscellaneous Notes * Telephone Encounter - Troy Ray MD - 11/09/2017 1643 EDT Returned call. No adenopathy. There is a subtle abnormality in the RML that may be mucous plugging. Plan IR bx RLL nodule. He is agreeable. * Telephone Encounter - Katlyn Deluna - 11/09/2017 1332 EDT Patient returning call to for the results of his CT scan. * Telephone Encounter - Elsy Linton - 11/09/2017 1001 EDT Pt is awaiting the results from his CT Scan. Please review and call to advise. * Telephone Encounter - Fadi Howard RN - 11/06/2017 1522 EDT Imaging results received via fax. Placed in provider's box. * Telephone Encounter - Fadi Howard RN - 11/06/2017 1324 EDT Called [facility] and requested that results/images be pushed for viewing. * Telephone Encounter - Dulce Yuan - 11/06/2017 1023 EDT Reason for Call: Patient Information Update Summary/Symptoms: Patient calling to report that he had his CT scan this morning and was told to call when it was done Please call back as soon as possible Dulce Yuan 11/06/2017 10:23 documented in this encounter Plan of Treatment Not on file documented as of this encounter Visit Diagnoses Not on filedocumented in this encounter Care Teams Strip Mine Supervisor Relationship Specialty Start Date End Date Garth Marroquin DO [address] [place] [address] PCP - General 10/30/17 documented as of this encounter
--- OUTSIDE RECORDS SUMMARY | 2023-09-10 00:48 | XMS_ITS | Encounter Summary ---
Author Organization [facility] Address [address] [place] [address] Care Team Providers Care Commodity Manager Name Role Phone Garth Marroquin DO Primary Care Provider [phone] Encounter Details Date Type Department Care Team (Late st Contact Info) Description 07/18/2019 Lab Requisition [facility] Pathology & Laboratory Medicine - [facility] [address] [place] [address] Angus Raza MD [address] [place] [phone] Gastro-esophageal reflux disease without esophagitis; Right lower quadrant pain Social History Tobacco Use Types Packs/Day Years [...] Priority Date/Time Associated Diagnosis Comments SURGICAL PATHOLOGY Today 07/15/2019 7:45 EDT Gastro-esophageal reflux disease without esophagitis Right lower quadrant pain documented in this encounter Results * SURGICAL PATHOLOGY (07/15/2019 7:45 EDT) Final Diagnosis A. STOMACH, ANTRUM, BIOPSY: - Antral mucosa with erosive reactive gastropathy. - Negative for evidence of Helicobacter pylori on H&E. B. STOMACH, BODY, BIOPSY: - Oxyntic mucosa with mild reactive gastropathy. - Negative for evidence of Helicobacter pylori on H&E. C. 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 07/19/2019 17:16 [facility] at 1716 Attestation By the signature below, the attending physician certifies that they have 1) personally conducted a gross and/or microscopic examination of the described specimen(s), and/or personally interpreted the results of laboratory testing of the described specimen(s), and 2) personally rendered or confirmed the above diagnosis. 07/19/2019 17:16 [facility] at 1716 Clinical History Esophageal plaque; gastric erosion 07/19/2019 17:16 [facility] Gross Description A. Received in formalin labelled with proper patient identification (initials M, T) and Bx gastric antrum is a single fragment of rodriguez soft tissue (0.2 x 0.2 x 0.2 cm). The specimen is entirely submitted in A1. B. Received in formalin labelled with proper patient identification (initials M, T) and Bx gastric body is a single fragment of rodriguez soft tissue (0.2 x 0.2 x 0.2 cm). The specimen is entirely submitted in B1. C. A. Received in formalin labelled with proper patient identification (initials M, T) and Bx esophageal plaque are 3 fragments of rodriguez-osullivan soft tissue (ranging from 0.1 cm to 0.4 cm in greatest dimension). The specimen is entirely submitted in C1. Petty Rawls 07/18/2019 15:58 07/19/2019 17:16 [facility] Scanned Images 07/19/2019 17:16 [facility] Tissue ENTIRE ESOPHAGUS / Unknown 07/15/2019 7:45 EDT 07/18/2019 15:36 EDT Tissue specimen (specimen) STOMACH STRUCTURE / Unknown 07/15/2019 7:45 EDT 07/18/2019 15:36 EDT Tissue specimen (specimen) ESOPHAGEAL STRUCTURE / Unknown 07/15/2019 7:45 EDT 07/18/2019 15:36 EDT Angus Raza MD PATHOLOGY ORD ERABLES [facility] [address] [place] [address] documented in this encounter Visit Diagnoses Diagnosis Gastro-esophageal reflux disease without esophagitis Esophageal reflux Right lower quadrant pain Abdominal pain, right lower quadrant documented in this encounter Care Teams Commodity Manager Relationship Specialty Start Date End Date Garth Marroquin DO [address] [place], [place] [address] [address] PCP - General 10/30/17 documented as of this encounter
--- OUTSIDE RECORDS SUMMARY | 2023-09-10 00:48 | XMS_ITS | Encounter Summary ---
Author Organization [facility] Address [address] [place] [address] Care Team Providers Care Jack Spinner Name Role Phone Garth Marroquin DO Primary Care Provider [phone] Encounter Details Date Type Department Care Team (Late st Contact Info) Description 09/17/2019 Lab Requisition [facility] Pathology & Laboratory Medicine - [address] [address] Outr Resulting Lab, Provider Social History Tobacco [...] Procedure Name Priority Date/Time Associated Diagnosis Comments ZZCOVID-19 TEST [facility] PCR Today 09/17/2019 13:37 EDT COVID-19 TESTING Routine 09/17/2019 13:3 7 EDT documented in this encounter Results * COVID-19 TEST [facility] PCR (09/17/2019 13:37 EDT) Swab ENTIRE NASOPHARYNX / Unknown 09/17/2019 13:37 EDT 09/18/2019 9:35 EDT Provider Outr Resulting Lab MICROBIOLOGY - GENERAL ORDERABLES Performing Organization Address City/State/[facility] Co de Phone Number [facility] [address] [place] [address] * COVID-19 TESTING (09/17/2019 13:37 EDT) COVID-19 rt-PCR Result Negative Negative 09/18/2019 13:41 EDT [facility] Comment: This test has not been FDA cleared or approved. This test has been authorized by FDA under an EUA for use by authorized laboratories. This test has been authorized only for detection of nucleic acid from 2019-nCoV, not for any other viruses or pathogens. This test is only authorized for the duration of the declaration that circumstances exist justifying the authorization of emergency use of in vitro diagnostic tests for detection and/or diagnosis of 2019-nCoV under section 564(b)(1) of Act, 21 U.S.C ?? 360bbb-3(b) (1), unless the authorization is terminated or revoked sooner. Negative results do not preclude 2019-nCoV infection and should not be used as the sole basis for treatment or other patient management decisions. Negative results must be combined with clinical observations, patient history, and epidemiological information. Performed on the viaForensicsher Fusion instrument Performing Lab [place] [facility] Lab 09/18/2019 13:41 EDT [facility] Swab 09/17/2019 13:3 7 EDT 09/18/2019 9:35 EDT Provider Outr Resulting Lab MICROBIOLOGY - GENERAL ORDERABLES Performing Organization Address [facility] Co de Phone Number [facility] [address] [place] [address] documented in this encounter Visit Diagnoses Not on filedocumented in this encounter Care Teams Jack Spinner Relationship Specialty Start Date End Date Garth Marroquin DO [address] [place] [phone] PCP - General 10/30/17 documented as of this encounter
--- OUTSIDE RECORDS SUMMARY | 2023-09-10 00:48 | XMS_ITS | Encounter Summary ---
Author Organization [facility] Address [address] [place] [address] Care Team Providers Care Laborer Filter Plant Name Role Phone Garth Marroquin DO Primary Care Provider [phone] Encounter Details Date Type Department Care Team (Late st Contact Info) Description 06/23/[address] [facility] Pathology & Laboratory Medicine - [facility] [address] [place] [address] Angus Raza MD [address] [place] [phone] Encounter for screening for malignant neoplasm of colon; Right lower quadrant pain; Personal history of colonic polyps Social History Tobacco Use Types Packs/Day Years [...] Date/Time Associated Diagnosis Comments SURGICAL PATHOLOGY Today 06/22/2020 7:31 EDT Encounter for screening for malignant neoplasm of colon Right lower quadrant pain Personal history of colonic polyps documented in this encounter Results * SURGICAL PATHOLOGY (06/22/2020 7:31 EDT) Final Diagnosis A. COLON, TRANSVERSE, POLYP, BIOPSY: - Sessile serrated adenoma. B. COLON, PROXIMAL TRANSVERSE, POLYP, BIOPSY: - Fragments of sessile serrated adenoma. C. COLON, PROXIMAL SIGMOID, MASS, BIOPSY: - Colonic mucosa with focal glandular hyperplasia, lamina propria fibrosis and vascular congestion; features consistent with benign regeneration/repa ir. - Negative for dysplasia and malignancy. - Deeper sections x3 examined. 06/27/2020 9:33 [facility] Attestation By the signature below, the attending physician certifies that they have 1) personally conducted a gross and/or microscopic examination of the described specimen(s), and/or personally interpreted the results of laboratory testing of the described specimen(s), and 2) personally rendered or confirmed the above diagnosis. 06/27/2020 9:33 [facility] at 0933 Clinical History Abdominal pain, history of adenomatous polyps, fatty liver; clinical diagnosis code: Z12.11, R10.31, Z86.010 06/27/2020 9:33 [facility] Gross Description A. Received in formalin labelled with proper patient identification (initials M, T) and transverse colon polyp hot snare is a lobulated brown polyp, 0.9 x 0.5 x 0.3 cm. Bisected and entirely submitted in A1. B. Received in formalin labelled with proper patient identification (initials M, T) and proximal transverse colon polyp hot snare are dusky rodriguez-brown tissues aggregating 1.1 x 1.0 x 0.3 cm. Entirely submitted in B1. C. Received in formalin labelled with proper patient identification (initials M, T) and proximal sigmoid colon mass Bx cold Bx forceps are 4 rodriguez-brown tissues ranging from 0.1 cm in greatest dimension to 0.3 x 0.2 x 0.1 cm. Entirely submitted in C1. JAMES MYERS(ASCP) 06/25/2020 10:15 06/27/2020 9:33 [facility] Performing Lab [facility] 06/27/2020 9:33 [facility] Scanned Images 06/27/2020 9:33 [facility] Tissue ENTIRE SIGMOID COLON / Unknown 06/22/2020 7:31 EDT 06/23/2020 9:41 EDT Tissue specimen (specimen) TRANSVERSE COLON STRUCTURE / Unknown 06/22/2020 7:31 EDT 06/23/2020 9:41 EDT Tissue specimen (specimen) SIGMOID COLON STRUCTURE / Unknown 06/22/2020 7:31 EDT 06/23/2020 9:41 EDT Angus Raza MD PATHOLOGY ORD ERABLES [facility] [address] [place] [address] documented in this encounter Visit Diagnoses Diagnosis Encounter for screening for malignant neoplasm of colon Special screening for malignant neoplasms, colon Right lower quadrant pain Abdominal pain, right lower quadrant Personal history of colonic polyps documented in this encounter Care Teams Laborer Filter Plant Relationship Specialty Start Date End Date Garth Marroquin DO [address] [place] [address] PCP - General 10/30/17 documented as of this encounter
--- OUTSIDE RECORDS SUMMARY | 2023-09-10 00:48 | XMS_ITS | Encounter Summary ---
Author Organization [facility] Address [address] [place] [address] Care Team Providers Care Development Analyst Name Role Phone Garth Marroquin DO Primary Care Provider [phone] Encounter Details Date Type Department Care Team (Late st Contact Info) Description 03/30/2020 Lab Requisition [facility] Pathology & Laboratory Medicine - [address] [id number] Outr Resulting Lab, Provider Social History Tobacco [...] Associated Diagnosis Comments PSA TOTAL, DIAGNOSTIC Routine 03/29/2020 13:40 EST documented in this encounter Results * PSA TOTAL, DIAGNOSTIC (03/29/2020 13:40 EST) PSA 0.8 0.0 - 3.5 ng/mL 03/30/2020 18:03 EST [facility] Blood VENOUS BLOOD / Unknown 03/29/2020 13:40 EST 03/30/2020 16:30 EST Narrative [facility] - 03/30/2020 18:03 EST NOTE: Serum PSA concentration should not be interpreted as absolute evidence for the presence or absence of malignant disease. Assayed on Siemens ADVIA Centaur XPT using chemiluminescent technology.??Values obtained by using different assay methods cannot be used interchangeably. Provider Outr Resulting Lab CHEMISTRY & BLOOD GAS ORDERABLES [facility] [address] [place] [address] documented in this encounter Visit Diagnoses Not on filedocumented in this encounter Care Teams Development Analyst Relationship Specialty Start Date End Date Garth Marroquin DO [address] [place] [phone] PCP - General 10/30/17 documented as of this encounter
--- OUTSIDE RECORDS SUMMARY | 2023-09-10 00:48 | XMS_ITS | Encounter Summary ---
Author Organization [facility] Address [address] [place] [address] Care Team Providers Care Software Engineering Supervisor Name Role Phone Garth Marroquin DO Primary Care Provider [phone] Encounter Details Date Type Department Care Team (Late st Contact Info) Description 06/12/2020 Lab Requisition [facility] Pathology & Laboratory Medicine - [address] [address] Desmond Rogers MD [address] [place] [phone] Other microscopic hematuria Social History Tobacco Use Types Packs/Day Years [...] Procedure Name Priority Date/Time Associated Diagnosis Comments NON HAND MOUNTER/FNA CYTOLOGY Today 06/11/2020 8:00 EDT Other microscopic hematuria documented in this encounter Results * NON HAND MOUNTER/FNA CYTOLOGY (06/11/2020 8:00 EDT) Final Diagnosis URINE, BARBOTAGE, CYTOLOGIC EVALUATION: - Negative for high grade urothelial carcinoma. 06/12/2020 14:18 EDT [facility] Attestation By the signature below, the attending physician certifies that they have personally conducted a gross and/or microscopic examination of the described specimens and rendered or confirmed the above diagnosis. 06/12/2020 14:18 EDT [facility] at 1418 Clinical History Microscopic hematuria; R31.29 06/12/2020 14:18 EDT [facility] Gross Description A. 70 ccs of slightly cloudy, pale pink fluid, of which 35 ccs are composed of Cytolyt, were received and processed by selective cellular enhancement technique. 06/12/2020 14:18 EDT [facility] Performing Lab [facility] 06/12/2020 14:18 EDT [facility] Scanned Images 06/12/2020 14:18 EDT [facility] Urine URINE SPECIMEN / Unknown 06/11/2020 8:00 EDT 06/12/2020 7:44 EDT Desmond Rogers MD PATHOLOGY ORDERAB LES [facility] [address] [place] [address] documented in this encounter Visit Diagnoses Diagnosis Other microscopic hematuria documented in this encounter Care Teams Software Engineering Supervisor Relationship Specialty Start Date End Date Garth Marroquin DO [address] [place] [address] PCP - General 10/30/17 documented as of this encounter
--- OUTSIDE RECORDS SUMMARY | 2023-09-10 00:48 | XMS_ITS | Encounter Summary ---
Author Organization [facility] Address [address] [place] [address] Care Team Providers Care Tank Insulator Rubber Name Role Phone Garth Marroquin DO Primary Care Provider [phone] Encounter Details Date Type Department Care Team (Late st Contact Info) Description 11/09/2017 Orders Only [facility] Pulmonology & Critical Care - [address] [address] Troy Ray MD [address] [facility] [address] [place] [phone] Lung nodule (Primary Dx) Social History Tobacco Use Types Packs/Day Years Used Date Smoking Tobacco: Every Day Cigarettes 3 47.6 Started: 1978 Smokeless Tobacco: Never Comments:currently 2pks per day Sex and Gender Information Value Date Recorded Sex Assigned at Not on file Gender Identity Not on file Sexual Orientation Not on file documented as of this encounter Plan of Treatment Scheduled Orders Name Type Priority Associated Diagnoses Orde r Schedule IR BIOPSY WITH AP MOLECULAR REQUEST Pathology Routine Lung nodule Ordered: 11/09/2017 documented as of this encounter Visit Diagnoses Diagnosis Lung nodule- Primary Solitary pulmonary nodule documented in this encounter Care Teams Tank Insulator Rubber Relationship Specialty Start Date End Date Garth Marroquin DO [address] [place] [phone] PCP - General 10/30/17 documented as of this encounter
--- OUTSIDE RECORDS SUMMARY | 2023-09-10 00:49 | XMS_ITS | Encounter Summary ---
Author Organization [facility] [place] [address] Care Team Providers Care Machine Filler Name Role Phone Judd Pizarro MD Primary Care Provider [phone] Encounter Details Date Type Department Care Team (Late st Contact Info) Description 06/25/2021 External Results Weight and Wellness at [facility] [address] [place] [phone] Emilie Galvan, RN Social History Tobacco Use Types Packs/Day Years Used Date Smoking Tobacco: Every Day Cigarettes 1.5 38 Smokeless Tobacco: Never Alcohol Use Standard Drinks/Week Comments No 0 (1 standard drink = 0.6 oz pure alcohol) Formerly heavy - stopped a few years ago. Sex and Gender Information Value Date Recorded Sex Assigned at Not on file Gender Identity Not on file Sexual Orientation Not on file documented as of this encounter Plan of Treatment Not on file documented as of this encounter Goals Goal Patient Goal Type Associated Problems Recent Progress Patient-Stated? Author Nutrition Lifestyle On track( 022 11:12 AM EDT) No Tessie Robles MD Note: First priority is protein: - Nuts or peanut butter -eggs - cottage cheese - meat / cheese (deli meat and cheese roll up can make a nice snack) For example, add peanut butter or cottage cheese to your fruit THEN think about adding fruits and veggies One idea for lunch time: - try a fruit based lunch + protein (Could try cottage cheese with fresh or frozen berries) (Peanut butter and banana) beverages Lifestyle On track( 022 10:41 AM EDT) Nolvia Pelaez RD Note: Pepsi: Continue one can or less a day -- Having 1-2 cans/day 09/26/21 Keep up the great work with water: aim for 6 bottles (Try switching to water after 1 or 2 mugs of coffee and alternating) Try making your own green tea: Buy green tea bags and leave overnight in a pitcher in the fridge. If you add 1 teaspoon of honey per glass that's much less sugar than the bottle -- 1 bottle per week 09/26/21 The other thing you can try is to dilute the store-bought bottle (fill half with water) documented as of this encounter Procedures Procedure Name Priority Date/Time Associated Diagnosis Comments [facility] EXTERNAL RESULT PANEL Routine 04/17/2021 HEMOGLOBIN A1C Routine 03/08/2021 documented in this encounter Results * (ABNORMAL) [facility] External Results (04/17/2021) Glucose Fasting 87 BUN 16 Creatinine 1.3 Sodium 140 Potassium 4.5 Chloride 105 CO2 22 Anion Gap 13(H) Calcium 9.3 Total Protein 7.2 Albumin 4.2 AST 22 ALT 33 Alk Phos 88 Total Bilirubin 0.4 Estimated GFR 56.9 TSH 0.71 04/17/2021 Historical Provider POINT OF CARE KENNEY T ORDERABLES * (ABNORMAL) Hemoglobin A1c (03/08/2021) Hemoglobin A1C 5.9(H) Blood 03/08/2021 Historical Provider CHEMISTRY ORDERAB LES documented in this encounter Visit Diagnoses Not on filedocumented in this encounter Care Teams Machine Filler Relationship Specialty Start Date End Date Judd Pizarro MD [facility] [place] [phone] PCP - General Family Medicine 06/20/21 documented as of this encounter
--- OUTSIDE RECORDS SUMMARY | 2023-09-10 00:49 | XMS_ITS | Encounter Summary ---
Author Organization [facility] [place] [address] Care Team Providers Care Catering Assistant Name Role Phone Garth Marroquin DO Primary Care Provider [phone] Reason for Visit * Reason Onset Date Comments Appointment 10/16/2020 Encounter Details Date Type Department Care Team (Late st Contact Info) Description 10/16/2020 Telephone Weight and Wellness at [address] [phone] Trini Mcduffie Appointment Social History Tobacco Use Types Packs/Day Years Used Date Smoking Tobacco: Every Day Cigarettes 2 38 Smokeless Tobacco: Never Alcohol Use Standard Drinks/Week Comments No 0 (1 standard drink = 0.6 oz pure alcohol) Formerly heavy - stopped a few years ago. Sex and Gender Information Value Date Recorded Sex Assigned at Not on file Gender Identity Not on file Sexual Orientation Not on file documented as of this encounter Miscellaneous Notes * Telephone Encounter - Trini Mcduffie - 10/16/2020 10:53 AM EDT Return in about 4 weeks (around 10/25/2020) for MD Nagel or karina, //RD 1-2 wks prefer Justyna, //HC 2wks after RD. documented in this encounter Plan of Treatment [...] or frozen berries) (Peanut butter and banana) documented as of this encounter Visit Diagnoses Not on filedocumented in this encounter Care Teams Catering Assistant Relationship Specialty Start Date End Date Garth Marroquin DO [facility] [place] [address] PCP - General Family Medicine 03/02/20 06/19/21 documented as of this encounter
--- OUTSIDE RECORDS SUMMARY | 2023-09-10 00:49 | XMS_ITS | Encounter Summary ---
Author Organization [facility] [place] [address] Care Team Providers Care Substitute Nurse Name Role Phone Judd Pizarro MD Primary Care Provider [phone] Reason for Visit * Reason Onset Date Comments Appointment 05/20/2021 Encounter Details Date Type Department Care Team (Late st Contact Info) Description 05/20/2021 Telephone Weight and Wellness at [facility] [address] [place] [phone] Daria Huynh Appointment Social History Tobacco Use Types Packs/Day [...] encounter Miscellaneous Notes * Telephone Encounter - Daria Huynh - 05/20/2021 8:51 AM EDT Return in about 1 month (around 06/06/2021) for young POLLACK documented in this encounter Plan of Treatment Not on file documented as of this encounter Goals Goal Patient Goal Type Associated Problems Recent Progress Patient-Stated? Author Nutrition Lifestyle On track(2021 11:12 AM EDT) No Tessie Robles MD [...] (Peanut butter and banana) beverages Lifestyle On track(2021 10:41 AM EDT) Nolvia Pelaez RD Note: [...] the store-bought bottle (fill half with water) aim to eat 3 meals a day Lifestyle On track(2021 12:25 PM EDT) Nolvia Pelaez RD Note: OK to avoid snacking TRY to eat 3 times in a day on a regular schedule- if you're not feeling very hungry, stop eating. consider writing down the foods you eat for the next couple months Lifestyle No Nolvia Saleh RD Note: Either in a notebook or an ilda Keep in a place near where you eat and record what you have throughout the day (write anythign that you eat or drink) Don't have to be perfect but will give some good information for next time we talk documented as of this encounter Visit Diagnoses Not on filedocumented in this encounter Care Teams Substitute Nurse Relationship Specialty Start Date End Date Judd Pizarro MD [facility] [place] [address] PCP - General Family Medicine 06/20/21 documented as of this encounter
--- OUTSIDE RECORDS SUMMARY | 2023-09-10 00:49 | XMS_ITS | Encounter Summary ---
Author Organization [facility] Address [facility] [place] [address] Care Team Providers Care Wire Stitcher Name Role Phone Garth Marroquin DO Primary Care Provider [phone] Encounter Details Date Type Department Care Team (Late st Contact Info) Description 03/22/2021 8:45 AM EST TH Visit (TeleHealth) Weight and Wellness at [address] [address] [facility] [address] [place] [address] Class 1 obesity due to excess calories with body mass index (BMI) of 34.0 to 34.9 in adult, unspecified whether serious comorbidity present (Primary Dx); Type 2 diabetes mellitus with diabetic neuropathy, without long-term current use of insulin Social History Tobacco Use Types Packs/Day Years [...] Sign Reading Time Taken Comments Blood Pressure - - Pulse - - Temperature - - Respiratory Rate - - Oxygen Saturation - - Inhaled Oxygen Concentration - - Weight 98 kg (216 lb) 03/22/2021 8:57 AM EST esau f report Height - - Body Mass Index 34.86 12/21/2020 8:31 AM EDT documented in this encounter Patient Instructions * Patient Instructions* Tessie Robles MD - 03/22/2021 8:45 AM EST Increase Ozempic to 1mg. You can take 2 shots weekly of your current prescription, and then you canstart a new prescripiton. Goals Addressed This Visit's Progress ??? Nutrition Change to whole wheat toast or Bermudian Muffin at breakfast. Instead of 4 eggs , have 2 eggs and peanut butter on the Bermudian muffin. Consider changing to HalfNHalf or cream in your coffee. (Dr. Wright also like to use Pure Protein vanilla instead of creamer) Below are guidelines for optimal health that we will help you to achieve OVER TIME. We do not expect you to adopt everything all at once or make huge leaps. We don't even expect that you will achievethem all because nobody is perfect! Nutrition: Whole food quality diet, more plants. (See the back page of your Welcome Book). This is a general recommendation for all patients. Your psychological tests sales agent and provider will help make more specific recommendations for you if appropriate. Avoid drinking your calories in the form of fruit juice, soda pop or other sweetened beverages. Choose water. Activity:Muscle helps drive our metabolic rate (how many calories we burn). When we lose weight we lose both muscle and fat. We want to minimize muscle loss and maximize fat loss by exercising, including strength training. Building/maintaining muscle mass helps us maintain a healthy metabolic rate w hich in turn helps us maintain weight loss. To maintain weight loss evidence supports 360-420 minutes per week (60min daily). Each week, 1 hourof this time should be divided into 2 or 3 sessions of resistance (weight) training. The rest wouldbe cardio. We do not know the threshold for non-structured activity, but if you are taking about 10,000 steps daily, you may be meeting this goal for cardiac activity. You can build to these levels slowly and methodically. Your Weight&Wellness team will help you develop a plan that works for you. Sleep: 7-8 hours of restful sleep per night with minimal or no interruptions. If this is not happening, talk to your provider about how we can help. Self-monitoring: most people benefit from some form of self monitoring. This can be: food tracking - either in an ilda or on paper, monitoring weight daily or monthly, exercise tracking. Pick something to track. Stress management: managing stress comes in many different forms from meditation to exercise to simply increasing mindfulness throughout the day. Your health football coach is well-equipped to guide you to find something to look forward to everyday. Eating behaviors: many people benefit from restricting the hours in which they eat. You can choose an eating window of 8-12 hours to start. Make a pact with yourself that you will not take in anything with caloric content outside this window. Your psychological tests sales agent may make further recommendations Medication management If your provider is currently prescribing medications to aid in weight loss, please be aware that you must routinely follow up as directed by your provider. If you miss a scheduled appointment or do not follow up per your provider's instructions, we reserve the right to hold refills until your are seen at a telehealth or office visit. In this situation you may contact our office at [phone] to schedule an appointment, and we will refill your medication at that appointment. Requested Prescriptions Signed Prescriptions Disp Refills ??? semaglutide (Ozempic) 1 mg/dose (4 mg/3 mL) Pen Injector 3 mL 3 Sig: Inject 1 mg subcutaneously once a week. documented in this encounter Progress Notes * Tessie Robles MD - 03/22/2021 8:45 AM EST Patient provided verbal consent prior to initiation of this telemedicine encounter and expressed understanding that the telemedicine visit may be billed similar to a clinic visit, pt was seen while via [] Video [] phone [facility] Patient Name: Pavan Padilla Date of : 1965 Age: 55 y.o. Garth Marroquin DO Thank you for referring Pavan Padilla to the Weight and Wellness Center. I saw him for a follow-up visit today, 03/22/21. Please see changes to care as documented in the assessment and plan. CHIEF COMPLAINT: F/u for treatment of WHO Class 2 / EOSS Stage 3 Obesity defined by a BMI of Body mass index is 34.86 kg/m??. and comorbidities HTN, Smoker and Vitamin D deficiency. Sleep apnea-treated, Diabetes withneuropathy, Osteoarthritis. This is a Visit #4 [facility] visit for this 55 y.o. patient. Weight gain due to: less activity, weight gaining medications, increased intake and frequent sn[facility] Barriers: adentulous Initial visit: 09/27/20 Initial weight: 231# Initial BMI: 38.17 kg/m??. Goal weight: 165 10% loss: 210# Other goals: Improve diabetes Today's weight: 219.75, 216 Change since prior: -3.75# [facility] Team: Tessie Robles MD, Justyna Horan RD and Aguilar Lagunas, Health Cigar Head Perforator - all pending HPI is worried about his low intake HYPOTENSION - noted on exam today, has monitor at home but has not been following. Asymptomatic. Onamlodipine, lisinopril, hctz. 24hr Dietary 3AM-10AM Coffee with Beninese vanilla creamer 1/2 cup 8AM 4 eggs, Bermudian muffin - white with butter. 12N Salad - Janey dressing, letuce, juana, carrrot, cabbage - mix - small - 1//2-1/3 bag 5:30PM - pork chops, salad TODAY PATIENT REPORTS (Topics discussed today in BOLD): Nutrition: Has not seen dietitian yet. Missed call, but we had incorrect number on his chart. Behavior: Activity: Sleep: no concerns Stress: no concerns Self-monitoring: [] Daily or weekly weights [x] Food log/ilda [] Other AOM review: Currently taking: semaglutide 0.5mg for diabetes and weight loss - likes it b/c he is losing weight; Not eating much 1-2 small meals per day, is concernd. NO GI side effects . Would like to consider increaseing dose. Meals - no change; did not see Nolvia b/c truck was broken down. AOM HX: Semaglutide Started: 09/27/20 Starting weight: 231 - 5% weight loss met at 3 months Obesogenic meds: gabapentin - for neuropathy, ; amitriptyline - also for neuropathy - stopped, glipizide - stopped COMORBIDITIES ADDRESSED TYPE 2 DM Recent Labs 12/20/20 1615 09/27/20 1141 09/27/20 0000 HA1C 6.8* 8.0* 7.9* Diagnosed 3-4 years ago. Complications: neuropathy Current medications: empagliflozin, metfromin 1000mg daily, semaglutide Prior Medications: glipizide Following with: PCP-plans to stop DMOC medication if he is stable at next check. Most recent A1c 2 weeks ago: Around 5% TOBACCO USE History: MANY YEARS, at about 2 ppd, had success with one brand of patch in the past, but when changed to a diff brand, cravings resumed. Pathway: [facility] PATHWAY - ADULT 09/27/2020 Obesity Medicine Activate Adult Biobank Activate PATHWAY DISCUSSION - individual Movement: [facility]: PAVS 09/27/2020 How many days during the past week have you performed physical activity where your heart beats faster and your breathing is harder than normal for 30 minutes or more? 5 How many days in a typical week do you perform an activity such as this? 7 ? Is ambulation limited most or all of the time? Only by neuropathy Tolerance: he can climb a flight of stairs Purposeful exercise now? nothing Activity enjoyed in past? Used to walk, but both he and partner limited by pain NEAT? 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 REVIEW OF SYSTEMS: see above HPI for pertinent +/- findings VITAL SIGNS: Vitals: 03/22/21 0857 Weight: 98 kg (216 lb) Body mass index is 34.86 kg/m??. PHYSICAL EXAM: Gen: Alert and appropriate, NAD. LABS: Lipid Panel Lab Results Component Value Date CHLPL 188 09/27/2020 HDL 22 09/27/2020 CHOLHDL 8.5 09/27/2020 TRIG 668 09/27/2020 LDLCHOL Not Calculated 09/27/2020 LDLDIRECT 79 09/27/2020 Last 3 Hemoglobin A1Cs Lab Results Component Value Date HA1C 6.8 (A) 12/20/2020 HA1C 8.0 (H) 09/27/2020 HA1C 7.9 (A) 09/27/2020 Per patient A1c now in the 5s ASSESSMENT AND PLAN Pavan Padilla was seen in follow up today for ongoing obesity, not yet at treatment goal [x] with improvement [] without change. Goals and treatment options were discussed. Continue medical management and lifestyle changes. INITIAL EVALUATION: FACTORS CONTRIBUTING TO OBESITY/INTERVENTION Obesogenic meds: [x]?none []?diabetic []? anti-depressant []?anti-anxiety []?mood stabilizers []?anti HTN []?sleep meds []?neuropathic pain control []?contraceptives []?chronic steroids Plan: []?request PCP/specialist address [x]?plan determined with OM provider-see AOM plan below - glipizide and amitriptyline d/c's []?consulted with pharmacy [x]?No change at this time for neuropathic meds []?Other Co-morbidities to address: Type 2 DM Risk Stratification: [x]?evaluate liver - Fib 4 normal []?PCOS evaluation ?? Nutrition: see patient goals for recommended changes today; will try to get him scheduled with RD. []??good base knowledge ??[]??needs development: [x]?may benefit from decreasing carbohydrate intake [x]?SIDNEY/IF may be of benefit []?SIDNEY/IF NOT RECOMMENDED due to medical concerns []?develop regular eating schedule []?Recommend culinary intervention, referred ?? Behavior: [x]?Eating out of boredom/emotions []?fasting all day/overeating in the evening []?undefined eating events []?Mindless eating []?grazing []?binging []? portion control []?late evening snacking []?eating overnight [x]?Consider ACT, for unplanned eating event with [facility] - improved with medication ?? Activity: not addressed Barriers: []?needs cardiac eval []?injury/pain preventing activity right now ?? Stress Management: [x]?no concerns []?has counselor []?suggested counseling []?request HC address ?? Sleep: [x]?no concerns []?refer to sleep med to r/o ELIU []?refer to CBTi group/individual counseling []?request HC address ?? Self-monitoring: [x]?Food log []?regular weight checks []?request frequent HC follow up []?other ONGOING INTERVENTIONS For specific behavioral interventions, see goals Referrals: Dietitian, Health Cigar Head Perforator, AOM: Increase semaglutide for DM and weight loss, Medications to consider: [x]?insulin sensitizing meds []?phentermine []?topiramate []?bupropion []?naltrexone Factors contributing to decision making: NO hx of pancreatitis, NO Fam or personl hx of medullary thyroid ca Pathway: [x]?Individual []?HLP []?Surgery []?Culinary []?ACT []?Monthly Lifestyle Classes Discussion 09/27/20: obesogenic meds, Pillars, Discussion 10/26/21: dietary counseling Diagnoses and all orders for this visit: Class 1 obesity due to excess calories with body mass index (BMI) of 34.0 to 34.9 in adult, unspecified whether serious comorbidity present - semaglutide (Ozempic) 1 mg/dose (4 mg/3 mL) Pen Injector; Inject 1 mg subcutaneously once a week. Type 2 diabetes mellitus with diabetic neuropathy, without long-term current use of insulin Return in about 3 months (around 06/19/2021) for MD Nagel or clinic, //RD:, Next available-Zoom. documented in this encounter Plan of Treatment [...] as of this encounter Visit Diagnoses Diagnosis Class 1 obesity due to excess calories with body mass index (BMI) of 34.0 to 34.9 in adult, unspecified whether serious comorbidity present- Primary Type 2 diabetes mellitus with diabetic neuropathy, without long-term current use of insulin documented in this encounter Care Teams Wire Stitcher Relationship Specialty Start Date End Date Garth Marroquin DO [address] [place] [address] PCP - General Family Medicine 03/02/20 06/19/21 documented as of this encounter
--- OUTSIDE RECORDS SUMMARY | 2023-09-10 00:49 | XMS_ITS | Encounter Summary ---
Author Organization [facility] Address [facility] [place] [address] Care Team Providers Care Machine Stacker Name Role Phone Garth Marroquin DO Primary Care Provider [phone] Encounter Details Date Type Department Care Team (Late st Contact Info) Description 12/21/2020 9:00 AM EDT Office [place] [address] Mary Alice Nesbitt MD [facility] [place] [address] Tobacco abuse; Personal history of nicotine dependence Social History Tobacco Use Types Packs/Day Years [...] Sign Reading Time Taken Comments Blood Pressure 121/41 12/21/2020 8:31 AM EDT Pulse 65 12/21/2020 8:31 AM EDT Temperature 37 ??C (98.6 ??F) 12/21/2020 8:31 AM EDT Respiratory Rate 16 12/21/2020 8:31 AM EDT Oxygen Saturation 99% 12/21/2020 8:31 AM EDT Inhaled Oxygen Concentration - - Weight 100.7 kg (222 lb) 12/21/2020 8:31 AM EDT Height 167.6 cm (5' 6) 12/21/2020 8:31 AM EDT Body Mass Index 35.83 12/21/2020 8:31 AM EDT documented in this encounter Progress Notes * Mary Alice Nsebitt MD - 12/21/2020 9:00 AM EDT Images from the original note were not included. [facility] Section of Pulmonary and Critical Care Medicine Outpatient Consultation Date of Encounter: 12/21/2020 Referring Provider: No referring provider defined for this encounter. Reason for Evaluation: Tobacco use/lung nodule History of Present Illness: Mr. Padilla is a 55-year-old male who presents today for a follow-up visit. After his last visit with ak, he had a CT chest for lung cancer screening in December 2019 which demonstrated paraseptal emphysematous changes or blebs in the right upper lobe. No concerning lung nodules were noted. He has been doing well since his last visit with me. He denies any cough or phlegm production. No hemoptysis. No shortness of breath at rest or on exertion. Describes occasional wheezing but states that it has not been bothersome at all. No nasal congestion or postnasal drip. No acid reflux. No ER visits or hospitalizations since his last visit with me. Unfortunately, he continues to smoke. States that he had quit for a while but went back to smoking when Covid started. He is motivated to quit and states that he will start using nicotine patches soon for help. The patient is also been losing weight and is currently being followed by the weight and wellness clinic, states that he has lost about 20 pounds in about a month. This is unintentional weight loss. Past Medical and Surgical History: ELIU on CPAP Diabetes mellitus Hypertension History of acute diverticulitis Lung nodule Family History: Father had brain cancer. Mother has DM, HTN. Sister has HTN and DM. No h/o lung cancer in the family. No h/o COPD or asthma in the family. Social and Occupational History: Currently lives at home with his ex-. 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 Smoked 2 PPD x 20 years, now smokes 1 PPD x 1 year. No alcohol use. No illicit drug use. No vaping. Has a cat at home. No known mold exposure. Current Medications at Start of Encounter: Current Outpatient Medications Medication Sig Dispense Refill ??? semaglutide (Ozempic) 0.25 mg or 0.5 mg(2 mg/1.5 mL) Pen Injector Inject 0.5 mg subcutaneously once a week. 1.5 mL 1 ??? BLOOD SUGAR DIAGNOSTIC, DISC MISC by NOT APPLICABLE route. ??? lancets Misc by NOT APPLICABLE route. ??? acetaminophen (Tylenol) 500 mg Tablet Take by mouth. ??? albuteroL 90 mcg/actuation HFA Aerosol Inhaler Inhale into the lungs. ??? empagliflozin (Jardiance) 10 mg Tablet Jardiance 10 mg tablet TAKE 1 TABLET BY MOUTH EVERY MORNING ??? atorvastatin (Lipitor) 20 mg Tablet Take by mouth. ??? nitroGLYcerin (Nitrostat) 0.4 mg Tablet, Sublingual PLACE 1 TABLET UNDER THE TONGUE AND ALLOW TO DISSOLVE EVERY 5 MINUTES NEEDED FOR CHEST PAINS FOR 3 DOSES ??? HYDROCHLOROTHIAZIDE ORAL Take by mouth Daily. ??? traMADol (ULTRAM) 50 mg Tablet take 1 tablet by mouth every 6 hours 0 ??? cyclobenzaprine (FLEXERIL) 10 mg Tablet take 1 tablet by mouth three times a day for muscle spasm if needed for 7 days 0 ??? aspirin 81 mg Tablet, Delayed Release (E.C.) Take 1 tablet by mouth daily. 30 tablet 3 ??? lisinopril (PRINIVIL;ZESTRIL) 30 mg Tablet Take 1 tablet by mouth daily. 90 tablet 3 ??? metFORMIN (FORTAMET) 1,000 mg Tablet Extended Rel 24 hr Take 1,000 mg by mouth daily. ??? omeprazole (PRILOSEC) 40 mg Capsule, Delayed Release(E.C.) Take 40 mg by mouth daily. ??? cholecalciferol, Vitamin D3, 2,000 unit Tablet Take 1 tablet by mouth daily. ??? nicotine (NICODERM CQ) 21 mg/24 hr Patch 24 hr APPLY 1 PATCH TOPICALLY DAILY 0 No current facility-administered medications for this visit. Adverse Drug Reactions: Allergies Allergen Reactions ??? Celecoxib Other reaction(s): Rash, urticaria ??? Naproxen Hives ??? Prednisone Nausea Only Review of Systems: CONSTITUTIONAL: No appetite or weight loss. No fevers, chills or night sweats. No fatigue. HEENT: No nasal congestion or postnasal drip. PULM: No cough or phlegm production. No hemoptysis or pleuritic chest pain. CVS: No chest pains. No orthopnea or leg swelling. GI: No abdominal pain, nausea or vomiting. : No dysuria. MUSCULOSKELETAL: Has arthritis in his lower back and has some lower back pain. SKIN: No new rash. NEURO: No headaches or dizziness. Physical Examination: BP 121/41 Pulse 65 Temp 37 ??C (98.6 ??F) (Temporal) Resp 16 Ht 167.6 cm (5' 6) Wt 100.7kg (222 lb) SpO2 99% BMI 35.83 kg/m?? GEN : Patient is sitting comfortably, no accessory muscle use. No conversational dyspnea. HEENT: Pupils are equal and reactive to light, anicteric sclera, extraocular muscle movement intact. NECK: Supple, no elevation in JVD. No cervical or supraclavicular lymphadenopathy. OROPHARYNX: Mallampati score 3, no evidence of thrush. Moist oral mucosa. PULM: Clear breath sounds bilaterally. CVS: S1-S2 normal. No murmurs ABDO: Obese abdomen, soft, nontender, bowel sounds present. EXT: No lower extremity edema present. No clubbing or cyanosis. Warm, well- perfused lower extremities bilaterally. NEURO: Alert, awake, oriented x3. No focal deficits. Imaging: I personally reviewed imaging from High-Resolution (non-contrast) CT Scan of the Chest Results for orders placed during the hospital encounter of 11/22/18 CT Chest wo Contrast (Generic) Narrative EXAMINATION: CT CHEST WO CONTRAST (GENERIC) CLINICAL HISTORY: F/u of RLL nodule, enlarged since 2014, but stable since 10/2017 and with reassuring 01/2018 PET/CT. TECHNIQUE: 3.0mm thick axial contiguous sections were obtained through the chest via helical acquisition without intravenous contrast administration. Thin-section reconstructions as well as coronal and sagittal reformatted images were generated. COMPARISON: 01/22/2018 PET/CT. 11/06/[address] FINDINGS: Pulmonary parenchyma: At the site of prior paraspinal basal right lower lobe patchy nodular opacity on 11/06/[address], which was still present but possibly smaller on 01/22/2018 PET/CT, is now resolved, except for small linear opacity in this region compatible with scarring. Focal scarring anteriorly in the right lung is unchanged. No new pulmonary pathology identified. Airways: No endobronchial opacity. Pleura: No pleural effusion. Lymph nodes:Within limits of noncontrast technique, no thoracic lymphadenopathy. Heart, pericardium, and great vessels: No new findings. Other mediastinal structures: No new findings. Lower neck: No new findings. Upper abdomen: Exophytic right renal cyst unchanged. No new findings. Body wall soft tissues: Minimal gynecomastia on the right unchanged. Skeletal structures: No new findings. Impression Previous basal right lower lobe opacity is now resolved, with residual linear scarring. Thank you for letting us participate in the care of this patient. For questions regarding this report, please contact the number below. chest 01/05: No concerning nodules noted. Emphysematous changes present. Pulmonary Function Tests: 01/15/2018: Normal FVC 3.58 L (84%), normal FEV1 2.76 L (85%), normal FEV1/FVC ratio 77. No obstructive ventilatory defect present. Normal diffusion capacity 22.49 (80%). No abnormalities in gas exchange noted. Impression and Plan of Care: Mr. Padilla is a 55 year old male who presents today for a pulmonary follow up, last seen by Dr. Garcia for a lung nodule : ASSESSMENT/PLAN 1. Lung nodule ?? He had a CT chest in December 2019 for lung cancer screening which did not demonstrate any concerning lung nodules. The previously noted right lower lobe opacity seem to have resolved. The patienttells me that he had another lung cancer screening CT chest in November [address] [facility], results of which are unavailable to me at this time. I do not have the images for review either. I have messaged my nurse Corinne Corado to get the images and reports for evaluation. As per patient report, his CT chest was normal. I have ordered lung cancer screening CT chest for him for November 2021 for follow-up. He wishes to continue his follow-up for his lung cancer screening with me at [facility]. 2. Tobacco abuse ?? The patient continues to smoke and I have again counseled him to quit smoking. He states that hewill be starting nicotine patches soon and will try to quit. RECOMMENDATIONS 1. LDCT in November 2021 2. RTC in 1 year I reviewed my impression and recommendations with the patient and answered all the questions to hissatisfaction. He understands the plan, and knows that he can contact us at any time should any new symptoms, concerns or questions arise. Mary Alice Nesbitt MD Physics Faculty MemberDegreasing Solution Reclaimer Pulmonary and Critical [place] [address] documented in this encounter Plan of Treatment [...] as of this encounter Visit Diagnoses Diagnosis Tobacco abuse Tobacco use disorder Personal history of nicotine dependence Personal history of tobacco use, presenting hazards to health documented in this encounter Care Teams Machine Stacker Relationship Specialty Start Date End Date Garth Marroquin DO [address] [place] [address] PCP - General Family Medicine 03/02/20 06/19/21 documented as of this encounter
--- OUTSIDE RECORDS SUMMARY | 2023-09-10 00:49 | XMS_ITS | Encounter Summary ---
Author Organization Formerly [facility] [place] [address] Care Team Providers Care Call Center Associate Name Role Phone Judd Pizarro MD Primary Care Provider [phone] Encounter Details Date Type Department Care Team (Late st Contact Info) Description 05/10/2022 Telephone [place] [phone] Vee Heard MD [facility] DR [place] [address] Social History Tobacco Use Types Packs/Day Years Used Date Smoking Tobacco: Every Day Cigarettes 1.5 38 Smokeless Tobacco: Never Alcohol Use Standard Drinks/Week Comments No 0 (1 standard drink = 0.6 oz pure alcohol) Formerly heavy - stopped a few years ago. IPV Inpatient Questions Answer Date Recorded Does Anyone Try to Keep You From Having Contact with Others or Doing Things Outside Your Home? no 05/10/2022 Feels Threatened by Someone no 04/17 Feels Unsafe at Home or Work/School no 05/10/2022 Physical Signs of Abuse Present no 05/10/2022 Sex and Gender Information Value Date Recorded Sex Assigned at Not on file Gender Identity Not on file Sexual Orientation Not on file documented as of this encounter Miscellaneous Notes * Telephone Encounter - Vee Heard MD - 05/10/2022 2:01 PM EDT [facility] Center Call Spoke to Diallo Priest NP regarding this patient due to concern for cauda equina due to urinaryincontinence. He has had lower extremity discomfort for 3 weeks. He denies trauma although may havebeen shoveling 3 weeks ago when the pain started. He is tender to palpation over L4-5. Rectal tone is intact. No saddle anesthesia. PVR <100. His other PMH CKD3, DM2, obesity. Given concern for cauda equina and unexplained urinary incontinence recommend transfer for MRI of lumbar spine. [facility] will reach out to ED to discuss transfer. Vee Heard MD documented in this encounter Plan of Treatment [...] beverages Lifestyle On track(2021 10:41 AM EDT) No Nolvia Saleh, RANJEET Note: Pepsi: Continue one can or less [...] day Lifestyle On track(2021 12:25 PM EDT) No Nolvia Saleh RD Note: OK to avoid snacking TRY [...] on filedocumented in this encounter Care Teams Call Center Associate Relationship Specialty Start Date End Date Judd Pizarro MD [address] [place] [address] PCP - General Family Medicine 06/20/21 documented as of this encounter
--- OUTSIDE RECORDS SUMMARY | 2023-09-10 00:49 | XMS_ITS | Encounter Summary ---
Author Organization [facility] [place] [address] Care Team Providers Care Electrical Engineering Professor Name Role Phone Judd Pizarro MD Primary Care Provider [phone] Encounter Details Date Type Department Care Team (Late st Contact Info) Description 07/19/2021 Telephone Weight and Wellness at [facility] [address] [place] [address] Mariam Reynoso V Social History Tobacco Use Types Packs/Day Years [...] encounter Miscellaneous Notes * Telephone Encounter - Mariam Reynoso V - 07/19/2021 9:34 AM EDT Return in about 2 months (around 09/03/2021) for RD, zoom with Ann Marie or any RD while I'm out documented in this encounter Plan of Treatment [...] on filedocumented in this encounter Care Teams Electrical Engineering Professor Relationship Specialty Start Date End Date Judd Pizarro MD [facility] [place] [address] PCP - General Family Medicine 06/20/21 documented as of this encounter
--- OUTSIDE RECORDS SUMMARY | 2023-09-10 00:49 | XMS_ITS | Encounter Summary ---
Author Organization [facility]ly [facility] [place] [address] Care Team Providers Care Acid Splicer Name Role Phone Garth Marroquin DO Primary Care Provider [phone] Encounter Details Date Type Department Care Team (Late st Contact Info) Description 03/21/2021 Telephone Weight and Wellness at [facility] [address] [place] [address] Martina Jerome, DONOVAN Social History Tobacco Use Types Packs/Day Years [...] encounter Miscellaneous Notes * Telephone Encounter - Martina Jerome CMA - 03/21/2021 1:55 PM EST [facility] Supervisor Pyrotechnic Loading Pre-telemedicine Visit Phone Note Pavan Padilla 1965 [x] Patient was not reached Patient was reached and the following information was reviewed/obtained per protocol: [] Confirmed patient name and date of [] Confirmed ZOOM downloaded and functioning [] ZOOM appointment link sent if no MyDH [] Phone number to be reached is: [phone] REVIEW: [] Review of patient medications completed Have you started on any NEW medications? [] No [] Yes: [] Confirmed preferred pharmacy: [facility] Your provider might ask you what you ate the day prior to the visit Please weigh yourself before the appointment Pedi: Both parent and child need to be present for the visit documented in this encounter Plan of Treatment [...] on filedocumented in this encounter Care Teams Acid Splicer Relationship Specialty Start Date End Date Garth Marroquin DO [address] [place] [address] PCP - General Family Medicine 03/02/20 06/19/21 documented as of this encounter
--- OUTSIDE RECORDS SUMMARY | 2023-09-10 00:49 | XMS_ITS | Encounter Summary ---
Author Organization [facility] Address [facility] [place] [address] Care Team Providers Care Top Precipitator Operator Name Role Phone Judd Pizarro MD Primary Care Provider [phone] Reason for Visit * Reason Comments Follow-up Weight managment Encounter Details Date Type Department Care Team ([facility] st Contact Info) Description 06/20/2021 9:15 AM EDT Office Visit Weight and Wellness at [address] [address] Tessie Robles MD [facility] [address] [facility] [place] [address] Class 1 obesity due to excess calories with body mass index (BMI) of 34.0 to 34.9 in adult, unspecified whether serious comorbidity present Social History Tobacco Use Types Packs/Day Years [...] Sign Reading Time Taken Comments Blood Pressure 129/62 06/20/2021 9:01 AM EDT Pulse 63 06/20/2021 9:01 AM EDT Temperature - - Respiratory Rate - - Oxygen Saturation 96% 06/20/2021 9:01 AM EDT Inhaled Oxygen Concentration - - Weight 98.8 kg (217 lb 14.4 oz) 06/20/2021 9:01 AM EDT Height 165.9 cm (5' 5.32) 06/20/2021 9:01 AM ED T Body Mass Index 35.91 06/20/2021 9:01 AM EDT documented in this encounter Patient Instructions * Patient Instructions* Tessie Robles MD - 06/20/2021 9:[address] Fournier - [facility]. I will try to get the results of your A1c from Dr. Marroquin. If you feel like your blood sugars are low, please CHECK YOUR BLOOD SUGAR to ensure you know it is low. Incresse Ozempic to 2.0-mg. documented in this encounter Progress Notes * Tessie Robles MD - 06/20/2021 9:15 AM EDT Patient provided verbal consent prior to initiation of this telemedicine encounter and expressed understanding that the telemedicine visit may be billed similar to a clinic visit, pt was seen while via [] Video [] phone [facility] [place] Patient Name: Pavan Padilla Date of : 1965 Age: 55 y.o. Judd Pizarro MD Thank you for referring Pavan Padilla to the [facility] Center. I saw him for a follow-up visit today, 06/26/21. Please see changes to care as documented in the assessment and plan. CHIEF COMPLAINT: F/u for treatment of WHO Class 2 / EOSS Stage 3 Obesity defined by a BMI of Body mass index is 35.91 kg/m??. and comorbidities HTN, Smoker and Vitamin D deficiency. Sleep apnea-treated, Diabetes withneuropathy, Osteoarthritis. This is a Visit #4 [facility] visit for this 55 y.o. patient. Weight gain due to: less activity, weight gaining medications, increased intake and frequent snacking on UHPF Barriers: adentulous Initial visit: 09/27/20 Initial weight: 231# Initial BMI: 38.17 kg/m??. Goal weight: 165 10% loss: 210# Other goals: Improve diabetes Today's weight: 217 Change since prior: -2.75# [facility] Team: Tessie Robles MD, Nolvia Saleh RD and Aguilar Lagunas, Health High School Mathematics Teacher - all pending HPI HYPOTENSION - noted on last exam today, normal today. TODAY PATIENT REPORTS (Topics discussed today in BOLD): Nutrition:Since seeing Nolvia: Trying to change mostly to whole wheat bread. Cut down on eggs. Eatsplenty of vegetables. Usually has 2 slices of bread per day in the AM, lower amounts of potato. Behavior: no concerns Activity: outside most of the day, always up doing something, including chases 3yo granddaughter some odd jobs, approx 3 days per week Sleep: no concerns Stress: no concerns Self-monitoring: [] Daily or weekly weights [x] Food log/ilda [] Other AOM review: Currently taking: semaglutide 1.0 mg for diabetes and weight loss - Not eating much 1-2 small meals per day, . NO GI side effects . Would like to consider increaseing dose. AOM HX: Semaglutide Started: 09/27/20 Starting weight: 231 - 5% weight loss met at 3 months, then stable until June Obesogenic meds: none COMORBIDITIES ADDRESSED TYPE 2 DM Recent Labs 03/08/21 0000 12/20/20 1615 09/27/20 1141 09/27/20 0000 HA1C 5.9* 6.8* 8.0* 7.9* Diagnosed 3-4 years ago. [...] to a diff brand, cravings resumed. Pathway: REVIEW OF SYSTEMS: see above HPI for pertinent +/- findings VITAL SIGNS: Vitals: 06/20/21 0901 BP: 129/62 Pulse: 63 SpO2: 96% Weight: 98.8 kg (217 lb 14.4 oz) Height: 165.9 cm (5' 5.32) Body mass index is 35.91 kg/m??. PHYSICAL EXAM: Gen: Alert and appropriate, NAD. LABS: Lipid Panel Lab Results Component Value Date CHLPL 188 09/27/2020 HDL 22 09/27/2020 CHOLHDL 8.5 09/27/2020 TRIG 668 09/27/2020 LDLCHOL Not Calculated 09/27/2020 LDLDIRECT 79 09/27/2020 Last 3 Hemoglobin A1Cs Lab Results Component Value Date HA1C 5.9 (H) 03/08/2021 HA1C 6.8 (A) 12/20/2020 HA1C 8.0 (H) 09/27/2020 Per patient A1c now in the 5s ASSESSMENT AND PLAN Pavan Padilla was seen in follow up today for ongoing obesity, not yet at treatment goal [x] with improvement [] without change. Goals and treatment options were discussed. Continue medical management and lifestyle changes. INITIAL EVALUATION: FACTORS CONTRIBUTING TO OBESITY/INTERVENTION Obesogenic meds: [x]?none Co-morbidities to address: Type 2 DM Risk Stratification: [x]?evaluate liver - Fib 4 normal ?? Nutrition: per RD ?? Behavior: [x]?Eating out of boredom/emotions [x]?Consider ACT, for unplanned eating event with UHPF - improved with medication ?? Activity: high NEAT Barriers: []?needs cardiac eval []?injury/pain preventing activity right now ?? Stress Management: [x]?no concerns?? Sleep: [x]?no concerns ?? Self-monitoring: [x]?Food log []?regular weight checks []?request frequent HC follow up []?other ONGOING INTERVENTIONS For specific behavioral interventions, see goals Referrals: Dietitian, Health High School Mathematics Teacher, AOM: Increase semaglutide for DM and weight loss, Medications to consider: [x]?insulin sensitizing meds []?phentermine []?topiramate []?bupropion []?naltrexone Factors contributing to decision making: NO hx of pancreatitis, NO Fam or personl hx of medullary thyroid ca Pathway: [x]?Individual []?HLP []?Surgery []?Culinary []?ACT []?Monthly Lifestyle Classes Pavan was seen today for follow-up . Diagnoses and all orders for this visit: Class 1 obesity due to excess calories with body mass index (BMI) of 34.0 to 34.9 in adult, unspecified whether serious comorbidity present - semaglutide (Ozempic) 1 mg/dose (4 mg/3 mL) Pen Injector; Inject 2 mg subcutaneously once a week. Return in about 3 months (around 09/20/2021) for MD Nagel or clinic://please update new PCP information, MD Nagel or clinic. documented in this encounter Plan of Treatment Not on file documented as of this encounter Goals Goal Patient Goal Type Associated Problems Recent Progress Patient-Stated? Author Nutrition Lifestyle On track( 11:12 AM EDT) No Tessie Robles MD [...] butter and banana) beverages Lifestyle On track( 10:41 AM EDT) No Nolvia Saleh RD Note: Pepsi: Continue one can or [...] with water) documented as of this encounter Visit Diagnoses Diagnosis Class 1 obesity due to excess calories with body mass index (BMI) of 34.0 to 34.9 in adult, unspecified whether serious comorbidity present documented in this encounter Care Teams Top Precipitator Operator Relationship Specialty Start Date End Date Judd Pizarro MD [address] [place] [address] PCP - General Family Medicine 06/20/21 documented as of this encounter
--- OUTSIDE RECORDS SUMMARY | 2023-09-10 00:49 | XMS_ITS | Encounter Summary ---
[place] [address] Care Team Providers Care Electronic Repair Troubleshooter Name Role Phone Garth Marroquin DO Primary Care Provider [phone] Reason for Visit * Reason Onset Date Comments Appointment 11/14/2020 Encounter Details Date Type Department Care Team (Late st Contact Info) Description 11/14/2020 Telephone Weight and Wellness at [facility] [address] [place] [address] Trini Mcduffie Appointment Social History Tobacco [...] * Telephone Encounter - Trini Mcduffie - 11/16/2020 8:35 AM EDT Return in about 4 weeks (around 11/23/2020) for MED CHECK - [address] Robles * Telephone Encounter - Trini Mcduffie - 11/14/2020 1:57 PM EDT 11/23 appt with Aguilar to be rescheduled, provider out. documented in this encounter Plan of Treatment Not on file documented as of this encounter Goals Goal Patient Goal Type Associated Problems Recent Progress Patient-Stated? Author Nutrition Lifestyle On track( 022 11:12 AM EDT) Tessie De Anda MD Note: First priority is protein: - [...] on filedocumented in this encounter Care Teams Electronic Repair Troubleshooter Relationship Specialty Start Date End Date Garth Marroquin DO [address] [place] [address] PCP - General Family Medicine 03/02/20 06/19/21 documented as of this encounter
--- OUTSIDE RECORDS SUMMARY | 2023-09-10 00:49 | XMS_ITS | Encounter Summary ---
Author Organization [facility] Address [facility] [place] [address] Care Team Providers Care Scratcher Name Role Phone Judd Pizarro MD Primary Care Provider [phone] Encounter Details Date Type Department Care Team (Late st Contact Info) Description 09/26/2021 10:45 AM EDT TH Visit (TeleHealth) Weight and Wellness at [address] [address] [facility] [place] [address] Adult BMI 34.0-34.9 kg/sq m Social History Tobacco Use Types Packs/Day Years [...] - Inhaled Oxygen Concentration - - Weight 94.8 kg (209 lb) 09/26/2021 9:00 AM EDT Height - - Body Mass Index 34.44 07/04/2021 9:00 AM EDT documented in this encounter Patient Instructions * Patient Instructions* Ann Marie Wheeler RD - 09/26/2021 10:45 AM EDT It was great to chat with you, Rebecca. Below are goals discussed today as well as in past visits.Please reach out with a CydanH message if you have any questions or concerns. Ann Marie Langley aim to eat 3 meals a day OK to avoid snacking TRY to eat 3 times in a day on a regular schedule- if you're not feeling very hungry, stop eating. beverages Pepsi: Continue one can or less a [...] the store-bought bottle (fill half with water) consider writing down the foods you eat for the next couple months Either in a notebook or an ilda Keep in a place near where you eat and record what you have throughout the day (write anythign thatyou eat or drink) Don't have to be perfect but will give some good information for next time we talk Nutrition First priority is protein: - Nuts or [...] frozen berries) (Peanut butter and banana) documented in this encounter Progress Notes * Ann Marie Wheeler RD - 09/26/2021 10:45 AM EDT Nutrition Intervention for Weight Management Initial RD visit with GILSON Cadet 1965 Telehealth / telephone visit conducted while patient was at home at the following address: [address] [place] [id number] Weight Today: Wt Readings from Last 3 Encounters: 07/04/21 96.2 kg (212 lb) 06/20/21 98.8 kg (217 lb 14.4 oz) 05/06/21 96.6 kg (213 lb) BMI Readings from Last 3 Encounters: 07/04/21 34.94 kg/m?? 06/20/21 35.91 kg/m?? 05/06/21 35.10 kg/m?? Interview: rebecca has lost 3 lbs, was difficult to pin down why he thought he lost the weight, hedid say he isn't; eating as much used too, and has cut his soda intake some, 1-2 cans a day and is only drinking 1 bottle of the sweetened green tea a week. Mentioned eating more bananas, though needed reminded to have some protein with them and getting protein in first at every meal. Getting lots of fresh vegetables in lately. Discussed again switching to whole wheat breads, even starting with just the toast in the morning. Exercise is walk around yard, and mowing. Discussing getting outside and walking after dinner. Typical Dietary Intake: B: 2 eggs, white toast, sausage or fox L: [place]-ham or turkey, cheese, mustard, sometimes lettuce D: Burgers or chicken on grill, cauliflower or broccoli, or fresh peas or other veg from garden S: ~ 5pm bowl of ice cream-2 scoops Typical Beverages: [x] coffee [] half and half (unflavored) [x] flavored creamer (sugar) Kazakh vanilla [] flavored creamer (sugar-free) [] added sugar - (total: [] added non-caloric sweetener [x] water - (total: 2-3 bottles, 1 near the bed at night [x] plain [] crystal light or other sugar-free additive [] [place] (natural or artificial flavoring or plain only) [] diet soda [] diet other drink [x] regular soda 1-2 can/day [] juice [] milk Other: Bottled green tea- 1 a week Appetite/Hunger: [x] feels managed with foods/meals outlined above [] discussed meal/snack schedule adjustment today- see goals [] patient identifies eating for reasons other than hunger- see interview above Food Tracking: [] Current food Tracking [] Discussed potential benefit starting food tracking - see goals [x] Food tracking not appropriate for patient at this time Patient Goals from Team: Goals ??? aim to eat 3 meals a day OK to avoid snacking TRY to eat 3 times in a day on a regular schedule- if you're not feeling very hungry, stop eating. ??? beverages Pepsi: Continue one can or less a day Keep up the great work with water: aim for 6 bottles (Try switching to water after 1 or 2 mugs of coffee and alternating) Try making your own green tea: Buy green tea bags and leave overnight in a pitcher in the fridge. If you add 1 teaspoon of honey per glass that's much less sugar than the bottle The other thing you can try is to dilute the store-bought bottle (fill half with water) ??? consider writing down the foods you eat for the next couple months Either in a notebook or an ilda Keep in a place near where you eat and record what you have throughout the day (write anythign thatyou eat or drink) Don't have to be perfect but will give some good information for next time we talk ??? Nutrition First priority is protein: - Nuts or [...] or frozen berries) (Peanut butter and banana) Other topics discussed: [] Eating an appropriate amount of food for your body [x] Reduce highly processed foods, refined carbohydrates, in favor of whole foods [x] Reduce sweet taste in your diet (whether by sugar or non-nutritive sweeteners) [] Increase fruits and non-starchy veggies [] Replace processed meat with other meat, fish, or, ideally, plant-based proteins (Good, Better,Best handout provided? [] ) [] Consider adding or increasing fermented foods [] Eat when hungry / planned eating event (Other eating behaviors: [] permission to eat [] distraction [] food environment) Activity: [x] reviewed current goals [] updated goals Barriers to Change: None noted Nutrition Goals updated today: Goals Addressed This Visit's Progress ??? aim to eat 3 meals a day On track OK to avoid snacking TRY to eat 3 times in a day on a regular schedule- if you're not feeling very hungry, stop eating. ??? beverages Pepsi: Continue one can or less a [...] the store-bought bottle (fill half with water) ??? Nutrition On track First priority is protein: - Nuts or [...] or frozen berries) (Peanut butter and banana) Monitor/Evaluate: Will follow up in 2 months Aim for 5-10% weight loss from ABW x 3-6 months from initial visit Thank you, Ann Marie Wheeler RD LD 30 minutes were spent in visit today, including contact with patient, chart review, and documentation documented in this encounter Plan of Treatment [...] as of this encounter Visit Diagnoses Diagnosis Adult BMI 34.0-34.9 kg/sq m Body Mass Index 34.0-34.9, adult documented in this encounter Care Teams Scratcher Relationship Specialty Start Date End Date Judd Pizarro MD [facility] [place] [address] PCP - General Family Medicine 06/20/21 documented as of this encounter
--- OUTSIDE RECORDS SUMMARY | 2023-09-10 00:49 | XMS_ITS | Encounter Summary ---
Author Organization [facility] [place] [address] Care Team Providers Care Dental Laboratory Supervisor Name Role Phone Judd Pizarro MD Primary Care Provider [phone] Reason for Visit * Reason Onset Date Comments Appointment 09/27/2021 Encounter Details Date Type Department Care Team (Late st Contact Info) Description 09/27/2021 Telephone Weight and Wellness at [facility] [address] [place] [address] Daria Huynh Appointment Social History [...] * Telephone Encounter - Daria Huynh - 09/27/2021 1:52 PM EDT Return in about 2 months (around 11/26/2021) for FUV, RD, Telehealth. (HANS) documented in this encounter Plan of Treatment [...] on filedocumented in this encounter Care Teams Dental Laboratory Supervisor Relationship Specialty Start Date End Date Judd Pizarro MD [facility] [address] PCP - General Family Medicine 06/20/21 documented as of this encounter
--- OUTSIDE RECORDS SUMMARY | 2023-09-10 00:49 | XMS_ITS | Encounter Summary ---
Author Organization [facility] [place] [address] Care Team Providers Care Agency Recruiter Name Role Phone Garth Marroquin DO Primary Care Provider [phone] Reason for Visit * Reason Onset Date Comments Appointment 04/01/2021 Encounter Details Date Type Department Care Team (Late st Contact Info) Description 04/01/2021 Telephone Weight and Wellness at [facility] [address] [place] [address] Daria Huynh Appointment Social History [...] * Telephone Encounter - Daria Huynh - 04/01/2021 2:15 PM EST Return in about 3 months (around 06/19/2021) for MD Nagel or clinic (Margaret) RANJEET NEW documented in this encounter Plan of Treatment [...] on filedocumented in this encounter Care Teams Agency Recruiter Relationship Specialty Start Date End Date Garth Marroquin DO [address] [place] [address] PCP - General Family Medicine 03/02/20 06/19/21 documented as of this encounter
--- OUTSIDE RECORDS SUMMARY | 2023-09-10 00:49 | XMS_ITS | Encounter Summary ---
Author Organization [facility] Address [facility] [place] [address] Care Team Providers Care Crossing Watchman Name Role Phone Garth Marroquin DO Primary Care Provider Reason for Visit * Reason Comments Establish Care Weight managment * Consultation (Routine) - Closed Specialty Diagnoses / Procedures Referred By Edis grossman Referred To Contact Weight and Wellness Diagnoses Localized adiposity BMI > 30 Garth Marroquin DO [address] [place] [address] [facility] [address] [place] [address] Referral ID Status Reason Start Date Expiration Date V isits Requested Visits Authorized [id number] Closed Consult, [facility] PCP Updated and/or Approved 02/23/2020 02/22/2021 6 6 Encounter Details Date Type Department Care Team (Late st Contact Info) Description 09/27/2020 10:00 AM EDT Office Visit Weight and Wellness at [facility] [address] [place] [address] Tessie Robles MD [facility] [address] [place] [address] Class 2 obesity due to excess calories with body mass index (BMI) of 38.0 to 38.9 in adult, unspecified whether serious comorbidity present (Primary Dx); Metabolic syndrome; Type 2 diabetes mellitus with diabetic neuropathy, without long-term current use of insulin; Diabetes mellitus due to underlying condition with diabetic neuropathy, without long-term current use of insulin ; Dietary counseling and surveillance; Cigarette nicotine dependence with nicotine-induced disorder Social History Tobacco Use Types Packs/Day Years [...] Sign Reading Time Taken Comments Blood Pressure 105/56 09/27/2020 9:51 AM EDT Pulse 76 09/27/2020 9:51 AM EDT Temperature - - Respiratory Rate 16 09/27/2020 9:51 AM EDT Oxygen Saturation 98% 09/27/2020 9:51 AM EDT Inhaled Oxygen Concentration - - Weight 105.1 kg (231 lb 9.6 oz) 09/27/2020 9:51 AM EDT Height 165.9 cm (5' 5.32) 09/27/2020 9:51 AM ED T Body Mass Index 38.17 09/27/2020 9:51 AM EDT documented in this encounter Patient Instructions * Patient Instructions* Tessie Robles MD - 09/27/2020 10:00 AM EDT Images from the original note were not included. I would like you to stop glipizide and start a new medication called semaglutide (Ozempic) for diabetes and ewight loss. It was a pleasure seeing you today, and I look forward to being an adviser in your weight loss journey. Your next steps: You will see a registered dietitian who will talk to you about your specific dietary choices. You will see a health middle school volleyball coach who will talk to you about behaviors related to achieving a health lifestyle. After those 2 visits, you and I will meet again to put all that information together and decide what are the next best steps for you to be most successful. OUR OFFICE WILL CALL YOU TO SCHEDULE THESE VISITS. If you do not hear from us within 3 business days, please call us at: [phone]. Below is a summary of our discussion today. As we discussed, obesity is a complicated, multifactorial disease state, and each individual responds differently to the variety of treatments we can offer you. No one thing works for everyone, but we tailor our treatments based on the pillars of obesity treatment as outlined by the Obesity Medicine Association, see below. Over time we will touch on all of these pillars, and each team assembler, will help you set achievable, actionable goals, a.k.a, SMART goals within each of these pillars. (Your SMART goals today, are listed below). For more information on the disease of obesity, associated diseases and intervention, I recommend reviewing the following websites: understanding obesity Home Page - Obesity Action Coalition (yes, politicial action committee, but a robin part of their mission is education) Definition & Facts for Adult Overweight & Obesity NIDDK (nih.gov) (similar content about the disease of obesity) Appetite control The laborer golf course, The GoGetter and The Sleepy Executive 720 - [place] video Sleep apnea and weight https://www.sleepfoundation.org/sleep-apnea/ltlntx-npja-ddk-sleep-apnea Insulin resistance and weight https://obesitymedicine.org/xvhbqoa-wih-enjxrod-resistance/ https://www.secondnature.io/us/guides/diabetes/bsknosc-zoekjerksg-ameunb-gain Dr. Brigido Dai: Fasting as a Therapeutic Option for Weight Loss - frentsTube Https://www.youYonesube.com/watch?v=qm3bmjfw3iO https://www.youYonesube.com/watch?v=94Xoj5XfFTO The Mediterranean Diet https://Instahealthpt.org/ https://www.health.[employer].edu/blog/v-asghjgyko-rqkin-sx-yld-ijjpcpvyrtbub-diet- 2847546462650 An important thing to remember as you make changes in your life is that they must be sustainable, that is, whatever you do to lose weight, you will need to do to sustain weight loss. As you try new and healthier food/activity/behaviors, assess whether you can make these changes for the long-term. If the answer is, No way, that is impossible! then we will work together to find other actionable goals to try. Most importantly, for this journey you have to be willing to try to make change. If youcan make change, you will be successful. Your specific SMART goals today: Goals ??? Self monitoring Keep food log until you are seen by the dieititian. Record everything you eat or drink, include time eaten and any emotional changes that are significant. Below are Healthy Habit guidelines for optimal health that we will help you to achieve OVER TIME. They are big goals that we break down into smaller more achievable SMART goals. We do not expect you to adopt everything all at once or make huge leaps. We don't even expect that you will achieve them all because nobody is perfect! Nutrition: Whole food quality diet, more plants. (See the back page of your Welcome Book). This is a general recommendation for all patients. Your meter engineer and provider will help make more specific recommendations for you if appropriate. Avoid drinking your calories in the form of fruit juice, soda pop or other sweetened beverages. Choose water. Activity: to maintain weight loss evidence supports 360-420 minutes per week (60min daily). Each week, 1 hour of this time should be divided into 2 or 3 sessions of resistance (weight) training. The rest would be cardio. We do not know the threshold for non-structured activity, but if you are taking about 10,000 steps daily, you may be meeting this goal for cardiac activity. You can build to this level slowly and methodically. Your Weight&Wellness team will help you develop a plan that works for you. Sleep: 7-8 hours of restful sleep per night with minimal or no interruptions. If this is not happening, talk to your provider about how we can help. Accountability: most people benefit from some form of accountability. This can be: food tracking - either in an ilda or on paper, monitoring weight daily or monthly, exercise tracking. Pick something to track. Stress management: managing stress comes in many different forms from meditation to exercise to simply increasing mindfulness throughout the day. Your health middle school volleyball coach is well-equipped to guide you to find something to look forward to everyday. Eating behaviors: many people benefit from restricting the hours in which they eat. You can choose an eating window of 8-12 hours to start. Make a pact with yourself that you will not take in anything with caloric content outside this window. Your meter engineer may make further recommendations GLP 1 Receptor Agonists Brand (generic) Names Victoza or Saxenda (liraglutide), Ozempic (semaglutide), Rybelsus (semaglutide oral), Trulicity (dulaglutide) Saxenda is the only GLP1 RA that is FDA approved for treatment of obesity. It is the same medication as Victoza, but Saxenda's highest dose is 3.0mg daily, whereas VIctoza is only up to 1.8mg daily for diabetes. Both of these are daily injections Ozempic and Trulicity are weekly injectables, and like all the other GLP1 RA's excepting Victoza, though they are not FDA approved for obesity treatment, Ozempic and Trulicity are often used ???off label?? by obesity medicine specialists. Ryblesus is the oral form of semaglutide and the only oral GLP1 RA. How they work: Increase insulin sensitivity Decrease appetite Slow movement of food through the stomach making you feel hutchison sooner and longer. When not to use: Family history of medullary thyroid cancer Use cautiously if you have had a history of pancreatitis Other medications For patients with diabetes on insulin: You will likely need to reduce your insulin use when you start this medication, depending on your hemoglobin A1c Common Side Effects (not comprehensive) Most commonly gastrointestinal including but not limited to diarrhea, nausea, taste changes, acid reflux. These side effects may improve after you are on the medication for a few weeks. These side effects are less likely with once weekly and oral dosing What you can do EAT SLOWLY and stop when you feel full. This prevents feeling badly after meals. Starting this medication You must increase the dose slowly. You will have more severe side effects if you start on a high dose. Your doctor will start you at a low dose and prescribe slow titration, increasing the dose everyweek or month. Follow your provider's instructions. If you ever stop this medication for a period of time (one week or more) on purpose or by accident,you will need to begin taking it again at the initial starting dose which may require a new prescription. Monitoring If you do not achieve 5% weight loss at 12 weeks, we will increase the dose or try a different medication Uses Diabetes, weight loss Online information The site below discusses GLP1 Fito with respect to Insulin resistant, aka Type 2, diabetes. Because obesity is often a disease of insulin resistance, the medications help those suffering with obesity in the same way that they help diabetics. https://www.diabeteseducator.org/practice/practice-tools/qfbmtvjs-hjlatfzlux-kuk ls/hki-4-nxbksauih https://www.diabeteseducator.org/docs/default-source/practice/educator-tools/glp -1-medications/understanding_glp_final.pdf?sfvrsn=2 The following informational sheet will provide instruction for how to store and inject the injectable forms of GLP1 Fito. https://www.diabeteseducator.org/practice/practice-tools/nseadqvm-luypmtagle-nen ls/kav-8-lyxmxhmgv documented in this encounter Progress Notes * Tessie Robles MD - 09/27/2020 10:00 AM EDTSummary: initial consult [facility] Patient Name: Pavan Padilla Date of : 1965 Age: 55 y.o. Referring provider: Garth Marroquin Dear Garth Marroquin DO, Thank you for referring Pavan Padilla to the [facility] for a consultationfor obesity management. I reviewed past records including notes, labs, and other evaluations as reviewed below. I have briefly summarized the visit below. I look forward to collaborating with you, and to that end, I will make medication adjustments as appropriate based on the patient's ongoing state of health. Medications that I often manage include, but are not limited to, anti-obesity meds, diabetic medications and anti-hypertensives, and any adjustments I make will be communicated to you to maintain seamless care. Thank you again for allowing the [facility] to join [place] healthcare team. SUMMARY OF VISIT: Pavan Padilla presented to the [facility] for a consultative visit regarding obesity management. Thepatient has WHO Class 2 / EOSS Stage 3 Obesity defined by a BMI of Body mass index is 38.17 kg/m??.and comorbidities: HTN, Smoker and Vitamin D deficiency. Sleep apnea-treated, Diabetes with neuropathy, Osteoarthritis I spent 60+min as above caring for this patient today; reviewing labs, writing prescriptions, documenting visit, examining the patient, arranging other specialty care, counseling in diet and/or exercise and discussion of treatment options in the care of obesity. OBESITY We discussed and agreed upon the pillars of obesity treatment. Pharmocotherapy: Discussion of antiobesity medications deferred to next visit If possible, medications that promote weight gain should be avoided and medications that are weight-neutral or promote weight loss should be considered. Obesogenic medications: Glipizide, gabapentin, amitriptyline Referrals: [x]Nutrition [x]Health middle school volleyball coach []Sleep medicine []Bariatric surgery []GI []Behavioral health []ACT group [x]Research coordinator CHIEF COMPLAINT: Management of excess weight HISTORY OF PRESENT ILLNESS: Weight History: [facility] Weight History 09/27/2020 What is the most you have ever weighed? 240 How old were you then? 53 How many times have you lost 10 pounds or more because you were trying to lose weight? Was it... Don't know How did you try to lose weight? Ate less food Pavan Padilla is here today because: They say I am overweight, he agrees Weight hx: Duration: 2 years, Awareness: in 1993 weighed 165# , then weight started coming on. - definitely more significant in the past few years. When he quit drinking, weight started coming on. Impact on life: Diabetes, knee Initial weight 09/27/20: 231# Initial BMI: 38.17 kg/m??. Goal weight: 165 10% loss: 210# Other goals: Improve diabetes Prior treatment/attempts to lose: Successful attempts in the past: quit eating - used to eat one meal per day - at 5-6PM, when he gotmarried, started to eat more AOM HX: none Hx metabolic surgery: none Pavan Padilla has had gradual weight gain due to: less activity, weight gaining medications, increased intake and frequent snacking on [facility] Importance 09/27/2020 How important is it to you to make a change to improve your health? 10 - Very Important How confident are you that you can make a change to improve your health? 10 - Very Confident Obesogenic medications: gabapentin - for neuropathy, ; amitriptyline - also for neuropathjy, glipizide Obesity related co-morbidities: Past Medical History 09/27/2020 Have you had any of the following medical problems? High blood pressure, Sleep apnea, Diabetes, Osteoarthritis COMORBIDITIES ADDRESSED INSULIN RESISTANCE/TYPE 2 DM Recent Labs 09/27/20 1141 09/27/20 0000 HA1C 8.0* 7.9* Diagnosed 3-4 years ago. Last A1c by report: 6.0% in July - checked capillary and venous today Complications: neuropathy Current medications: empagliflozin, metfromin 1000mg daily, glipizide Prior Medications: none Following with: PCP TOBACCO USE History: MANY YEARS, at about 2 ppd, had success with one brand of patch in the past, but when changed to a diff brand, cravings resumed. Sleep: Circadian: []film library clerk work []irregular sleep timings [x]Normal day/night schedule To bed: 7PM Wake up: 4AM Frequency of awakenings at night: none Dx/Treated for ELIU? Diagnosed , uses CPAP Food Behaviors In your opinion do you eat a healthy diet? Like fruits and veggies, with dx of DM Initially told toeat fruit and then diff doctor told him to stop all the fruit. Checkd sugar daily - but sugars unchanged with or withouth fruit Eats veggies from garden. Eats 3 meals per day, but snacks in between with junk food, Ring dings, chips, etc Appetite: normal Satiety: normal Eating out of: []Hunger []Habit []It's time. [x]Boredom- sometimes []Emotions Eating patterns: [] Mindless eating [] binge eating [] Grazing [] skips meals [] Night eating Movement: [facility]: PAVS 09/27/2020 How many days during the past week have you performed physical activity where your heart beats faster and your breathing is harder than normal for 30 minutes or more? 5 How many days in a typical week do you perform an activity such as this? 7 Is ambulation limited most or all of the time? Only by neuropathy Tolerance: he can climb a flight of stairs Purposeful exercise now? nothing Activity enjoyed in past? Used to walk, but both he and partner limited by pain NEAT? 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 Shortness of breath, Muscle pain WWC PHQ-2 09/27/2020 Over the LAST 2 WEEKS, how often have you been bothered by little interest or pleasure in doing things? Not at all Over the LAST 2 WEEKS, how often have you been bothered by feeling down, depressed, or hopeless? Not at all PHQ-2 Score 0 (Brief screen negative) WCCGAD2 09/27/2020 Over the LAST 2 WEEKS, how often have you been bothered by feeling nervous, anxious or on edge? Notat all Over the LAST 2 WEEKS, how often have you been bothered by not being able to stop or control worrying? Not at all GAD2 Subscore 0 (Brief screen negative) MEDICAL HISTORY Medical and Surgical History: Reviewed-see problem list. No past medical history on file. Family History: Reviewed. Family History 09/27/2020 Do any of these medical conditions run in your family? Obesity Social History: Reviewed. Food insecurity? neg WWC: Alcohol 09/27/2020 How often do you have a drink containing alcohol? Never How many standard drinks containing alcohol do you have on a typical day? 0 drinks How often do you have six or more drinks on one occasion? Never Social determinant risk not applicable to this patient. VITAL SIGNS: Vitals: 09/27/20 0951 BP: 105/56 BP Location ([facility]): Right arm Patient Position: Sitting BP Cuff Sizes: Large Adult (32-43 cm) Pulse: 76 Resp: 16 SpO2: 98% Weight: 105.1 kg (231 lb 9.6 oz) Height: 165.9 cm (5' 5.32) Last 5 weight values: Wt Readings from Last 5 Encounters: 09/27/20 105.1 kg (231 lb 9.6 oz) 11/22/18 113.4 kg (250 lb) 01/15/18 110.2 kg (243 lb) 04/16/17 108 kg (238 lb) 03/21/17 104.6 kg (230 lb 9.6 oz) PHYSICAL EXAM: Gen: 55 y.o. year old male with obesity who appears stated age. NAD. Body fat distribution- predominantly central. Appearance: appropriate, well-kempt Eyes: PERRLA, clear conjunctiva, HENT: Atruamatic, MMM, OP clear and narrow, Mallampati grade 4/4 Neck: No data recorded supple and thick, no LAD, no thyromegaly/thyroid nodules palpated, no buffalo hump CV: RRR, S1S2 distinct, no extra sounds or murmur Resp: Clear to auscultation bilaterally with normal chest wall excursion Abd: No data recorded +BS, soft, NT/ND, no HSM/masses, no scars, Extremities: No LE edema, WWP, neg James's sign Gait: nonantalgic Skin: NEG FOR: Acanthosis nigricans, acne, hirsut, skin tags, intertrigo, rashes, purple abdominal striae, induration. Integrity in tact Psych: pleasant, conversant and engaged, normal affect, cognition and mood. PREVIOUS LABS AND IMAGING: Reviewed Last CBC Lab Results Component Value Date WBC 7.28 04/23/2020 RBC 5.43 04/23/2020 HGB 16.3 04/23/2020 HCT 48.5 04/23/2020 MCV 89.3 04/23/2020 MCH 30.0 04/23/2020 MCHC 33.6 04/23/2020 PLATELET 189 04/23/2020 RDWCV 13.2 04/23/2020 Last CMP Lab Results Component Value Date NA 137 (External Lab) 04/23/2020 K 3.9 (External Lab) 04/23/2020 CL 103 (External Lab) 04/23/2020 CO2 24 (External Lab) 04/23/2020 BUN 16 (External Lab) 04/23/2020 CREATININE 1.2 (External Lab) 04/23/2020 GLUCOSE 121 03/21/2017 CALCIUM 8.8 (External Lab) 04/23/2020 ESTGFR >60 (External Lab) 04/23/2020 Lab Results Component Value Date ALT 35 09/27/2020 AST 22 09/27/2020 ALKPHOS 102 09/27/2020 BILITOT 0.2 09/27/2020 BILIDIR 0.1 09/27/2020 ALBUMIN 4.2 09/27/2020 PROT 6.8 09/27/2020 Fib 4=1.12 Lipid Panel Lab Results Component Value Date CHLPL 188 09/27/2020 HDL 22 09/27/2020 CHOLHDL 8.5 09/27/2020 TRIG 668 09/27/2020 LDLCHOL Not Calculated 09/27/2020 LDLDIRECT 79 09/27/2020 Last 3 Hemoglobin A1Cs Lab Results Component Value Date HA1C 8.0 (H) 09/27/2020 HA1C 7.9 (A) 09/27/2020 HA1C 6.0 (H) 03/21/2017 Latest TSH Lab Results Component Value Date TSH 1.26 (External Lab) 04/23/2020 No results found for: GLUCFASTING Lab Results Component Value Date FERRITIN 141 09/27/2020 Lab Results Component Value Date [id number] 423 09/27/2020 25-OH Vit D Total (ng/mL) Date Value Status 09/27/2020 41 Final ASSESSMENT AND PLAN Pavan Padilla is a 55 y.o. male with uncontrolled obesity who presented to [facility] today for medical evaluation with associated co-morbidities: INITIAL EVALUATION: FACTORS CONTRIBUTING TO OBESITY/INTERVENTION Medical: []Probable insulin resistance []possible sleep apnea []Insomnia Obesogenic meds: []none [x]diabetic [] anti-depressant []anti-anxiety []mood stabilizers []anti HTN[]sleep meds [x]neuropathic pain control []contraceptives []chronic steroids Plan: []request PCP/specialist address [x]plan determined with OM provider-see AOM plan below []consulted with pharmacy [x]No change at this time for neuropathic meds []Other Co-morbidities to address: Type 2 DM Risk Stratification: []evaluate liver - Fib 4 normal []PCOS evaluation Nutrition: discussed whole food, quality diet; specific recommendations per RD []good base knowledge []needs development: [x]may benefit from decreasing carbohydrate intake [x]SIDNEY/IF may be of benefit []SIDNEY/IF NOT RECOMMENDED due to medical concerns []develop regular eating schedule []Recommend culinary intervention, referred Behavior: [x]Eating out of boredom/emotions []fasting all day/overeating in the evening []undefinedeating events []Mindless eating []grazing []binging [] portion control []late evening snacking []eating overnight [x]Consider ACT, for unplanned eating event with [facility] Activity: provided resistance bands and booklet Barriers: []needs cardiac eval []injury/pain preventing activity right now Stress Management: [x]no concerns []has counselor []suggested counseling []request HC address Sleep: [x]no concerns []refer to sleep med to r/o ELIU []refer to CBTi group/individual counseling []request HC address Self-monitoring: [x]Food log []regular weight checks []request frequent HC follow up []other ONGOING INTERVENTIONS For specific behavioral interventions, see goals Referrals: Dietitian, Health Boilermaker Fitter, AOM: D/c glipizide and start semaglutide for DM and weight loss Medications to consider: [x]insulin sensitizing meds []phentermine []topiramate []bupropion []naltrexone Factors contributing to decision making: NO hx of pancreatitis, NO Fam or personl hx of medullary thyroid ca Pathway: deferred until second visit except: []Individual []HLP []Surgery []Culinary []ACT []Monthly Lifestyle Classes Discussion 09/27/20: obesogenic meds, Pillars, Pavan was seen today for establish care. Diagnoses and all orders for this visit: Class 2 obesity due to excess calories with body mass index (BMI) of 38.0 to 38.9 in adult, unspecified whether serious comorbidity present - POCT glycated hemoglobin, total (HA1C) - Vitamin D, 25-Hydroxy; Future - Vitamin B12; Future - Ferritin; Future - Hemoglobin A1c; Future - Lipid Panel (Reflex Direct LDL); Future - Hepatic Function Panel; Future - semaglutide (Ozempic) 0.25 mg or 0.5 mg(2 mg/1.5 mL) Pen Injector; Inject 0.25 mg subcutaneously once a week for 28 days, THEN 0.5 mg once a week. - Biorepository Request; Future - Biorepository Request; Future - Biorepository Request - Vitamin D, 25-Hydroxy - Vitamin B12 - Ferritin - Hemoglobin A1c - Lipid Panel (Reflex Direct LDL) - Hepatic Function Panel Metabolic syndrome Type 2 diabetes mellitus with diabetic neuropathy, without long-term current use of insulin - POCT glycated hemoglobin, total (HA1C) - Hemoglobin A1c; Future - Hemoglobin A1c Diabetes mellitus due to underlying condition with diabetic neuropathy, without long-term current use of insulin - Ferritin; Future - Ferritin Dietary counseling and surveillance Comments: ok to eat fruit in moderation - considering adding foods like yogurt, nuts or PB to add protein andhealthy fats Other orders - LDL Cholesterol, Direct Goals Addressed This Visit's Progress ??? Self monitoring Keep food log until you are seen by the dieititian. Record everything you eat or drink, include time eaten and any emotional changes that are significant. Care pathway: Pathway: [facility] PATHWAY - ADULT 09/27/2020 Adult Biobank Activate Return in about 4 weeks (around 10/25/2020) for MD Nagel or clinic, //RD 1-2 wks, //HC 2wks after RD. I spoke with Pavan about opportunities to participate in research and to be contacted by our research customer support assistant. They indicated that they are: [x] INTERESTED [] NOT INTERESTED // [] NOT ADDRESSED [facility] Initial Responses 09/27/2020 URICA - Readiness Score 12.33 (Preparation State) WEL-SF Total Scores 72 PHQ-2 SubScore 0 (Brief screen negative) GAD2 Subscore 0 (Brief screen negative) PROMIS 10 Physical Scores 37.4 PROMIS 10 Mental Scores 48.3 Total REAP-S Scores 17 TFEQ - Uncontrolled Eating (UE) 29.62 TFEQ-Cognitive Restraint (CR) 11 TFEQ-Emotional Eating 27.77 Food Insecurity Score 2 [place] Category I Result 1 (Negative) [place] Category II Result 1 (Negative) [place] Category III 1 (Positive) [place] Sleep Apnea Total 3 (High Risk) Schooling Less than high school Importance of making a change 10 - Very Important Confidence to make change 10 - Very Confident Most weighed 240 Age most weighed 55 Times lost 10 lbs or more Don't know Lost weight how? Ate less food Worried food would run out before we got money to buy more Never true Food didnt last; no money to get more Never true URICA: <8 Precontemp, 8-12 Contemp, 12+ Prep TFEQ: Look at transformed scores, average is 50, +/-2SD is sigfnif, consider referral >70 WEL-SF: Range 0-80, higher = better PROMIS Avg score = 50 REAP score 13-39, higher = more diversity in diet, better documented in this encounter Plan of Treatment Not on file documented as of this encounter Procedures Procedure Name Priority Date/Time Associated Diagnosis Comments HC VENIPUNCTURE Routine 09/27/2020 11:41 AM EDT Class 2 obesity due to excess calories with body mass index (BMI) of 38.0 to 38.9 in adult, unspecified whether serious comorbidity present HC VITAMIN D TOTAL-25 HYDROXY Routine 09/27/2020 11:41 AM EDT Class 2 obesity due to excess calories with body mass index (BMI) of 38.0 to 38.9 in adult, unspecified whether serious comorbidity present LDL CHOLESTEROL, DIRECT Routine 09/27/2020 11:41 AM EDT HC HEMOGLOBIN A1C Routine 09/27/2020 11: 41 AM EDT Class 2 obesity due to excess calories with body mass index (BMI) of 38.0 to 38.9 in adult, unspecified whether serious comorbidity present Type 2 diabetes mellitus with diabetic neuropathy, without long-term current use of insulin HC FERRITIN, SERUM Routine 09/27/2020 11 :41 AM EDT Class 2 obesity due to excess calories with body mass index (BMI) of 38.0 to 38.9 in adult, unspecified whether serious comorbidity present Diabetes mellitus due to underlying condition with diabetic neuropathy, without long-term current use of insulin HC VITAMIN B12 SERUM Routine 09/27/2020 11:41 AM EDT Class 2 obesity due to excess calories with body mass index (BMI) of 38.0 to 38.9 in adult, unspecified whether serious comorbidity present HEPATIC FUNCTION PANEL Routine 09/27/2020 11:41 AM EDT Class 2 obesity due to excess calories with body mass index (BMI) of 38.0 to 38.9 in adult, unspecified whether serious comorbidity present LIPID PANEL (REFLEX DIRECT LDL) Routine 09/27/2020 11:41 AM EDT Class 2 obesity due to excess calories with body mass index (BMI) of 38.0 to 38.9 in adult, unspecified whether serious comorbidity present POCT GLYCATED HEMOGLOBIN, TOTAL (HA1C) Routine 09/27/2020 Class 2 obesity due to excess calories with body mass index (BMI) of 38.0 to 38.9 in adult, unspecified whether serious comorbidity present Type 2 diabetes mellitus with diabetic neuropathy, without long-term current use of insulin documented in this encounter Results * LDL Cholesterol, Direct (09/27/2020 11:41 AM EDT) [facility] LDL Chol Direct 79 mg/dL [facility] Comment: Lowest Risk: <100 mg/dL Lower Risk: 100-129 mg/dL Borderline High Risk: 130-159 mg/dL High Risk: 160-189 mg/dL Very High Risk: >yo=617 mg/dL Blood 09/27/2020 11:4 1 AM EDT 09/27/2020 12:48 PM EDT Narrative Resulting Agency Comment Spec In Lab Tessie Robles MD CHEMISTRY ORDERABLES Performing Organization Address [facility] Co de Phone Number [facility] [place] [address] * Biorepository Request (09/27/2020 11:41 AM EDT) [facility] Biorepository Hold Sample in lab [facility] Blood 09/27/2020 11:4 1 AM EDT 09/27/2020 1:25 PM EDT Narrative Resulting Agency Comment Spec In Lab Tessie Robles MD CHEMISTRY ORDERABLES Performing Organization Address [facility] Co de Phone Number [facility] [place] [address] * Hepatic Function Panel (09/27/2020 11:41 AM EDT) Total Protein 6.8 6.1 - 8.0 gm/dL [facility] Albumin 4.2 3.2 - 5.2 gm/dL [facility] AST 22 0 - 39 unit/L [facility] ALT 35 0 - 55 unit/L [facility] Alk Phos 102 40 - 130 unit/L [facility] Total Bilirubin 0.2 0.2 - 1.3 mg/dL [facility] Bili, Direct 0.1 0.0 - 0.3 mg/dL [facility] Blood 09/27/2020 11:4 1 AM EDT 09/27/2020 12:48 PM EDT Narrative Resulting Agency Comment Spec In Lab Tessie Robles MD CHEMISTRY ORDERABLES Performing Organization Address City/State/[facility] Co de Phone Number [facility] [place] [address] * Lipid Panel (Reflex Direct LDL) (09/27/2020 11:41 AM EDT) Chol, Total 188 mg/dL [facility] Comment: Lower Risk: <200 mg/dL Average Risk: 200-239 mg/dL Higher Risk: >aj=919 mg/dL Triglycerides 668 mg/dL [facility] Comment: Average Risk/Lower Risk: <150 mg/dL Borderline High Risk: 150-199 mg/dL High Risk: 200-499 mg/dL Very High Risk: >bs=517 mg/dL HDL 22 mg/dL [facility] Comment: Males: ?? Higher Risk: <40 mg/dL Females: ?? Higher Risk: <50 mg/dL LDL Cholesterol Not Calculated [facility] Comment: Lowest Risk: <100 mg/dL Lower Risk: 100-129 mg/dL Borderline High Risk: 130-159 mg/dL High Risk: 160-189 mg/dL Very High Risk: >os=404 mg/dL Calculated LDL value is not valid for triglycerides greater than 400 mg/dl. Chol/HDL Ratio 8.5 ratio [facility] Lipid Interpretation See Note [facility] Comment: Lipid management should be guided by a patient? s ASCVD risk, goals and preferences. ACC/AHA Guidelines recommend high intensity statin if clinical ASCVD or LDL greater than or equal to 190 mg/dL. http://Aframe.com/AZB-JQP-Iavibrmyt Adults aged 40-75 with LDL 70-189 mg/dL should have their 10 year ASCVD risk estimated with the ACC/AHA ASCVD risk pump servicer http://tools.acc.org/XKPEM-Zdgd-Hvzbjabdn/ Statin should be discussed if risk greater than or equal to 7.5% in non-diabetics. With diabetes, moderate intensity statin is recommended if risk less than 7.5%, high intensity if risk greater than or equal to 7.5%. Annual lipid monitoring on statins is not necessary. Evaluate secondary causes of Triglycerides greater than 500 mg/dL or LDL greater than 190 mg/dL: See table 6 of ACC/AHA Guideline. Lifestyle modification is a critical component of ASCVD risk reduction. Blood 09/27/2020 11:4 1 AM EDT 09/27/2020 12:48 PM EDT Narrative Resulting Agency Comment Spec In Lab Tessie Robles MD CHEMISTRY ORDERABLES [facility] [place] [address] * (ABNORMAL) Hemoglobin A1c (09/27/2020 11:41 AM EDT) Hemoglobin A1C 8.0(H) 4.3 - 5.6 % [facility] Comment: Reference Range: 4.3 - 5.6% 5.7 - 6.4% - Increased Risk of Developing Diabetes Mellitus >= 6.5% - Consistent with diagnosis of Diabetes Mellitus In the absence of hyperglycemia (i.e. plasma glucose > 200 mg/dL) or classic symptoms of hyperglycemia a repeat measurement of HbA1c should be performed on a separate sample to confirm the diagnosis. Diagnosis and Classification of Diabetes Mellitus, Diabetes Care 2013; 36: Suppl. 1, I43-28 Est Avg Gluc 182 mg/dL [facility] Comment: eAG equivalents for HbA1c percentages: HbA1c(%) ?eAG(mg/dL) 6.0 ?126 6.5 ?140 7.0 ?154 7.5 ?169 8.0 ?183 8.5 ?197 9.0 ?212 9.5 ?226 10.0 ? 240 Limitations: The eAG calculation has not been validated on women, individuals below 18 years old and above 70 years old, and individuals with hemoglobinopathies. Additional resources are available on the ADA website. Facundo SCALES, Parag J, Geoff R, et al. ??Translating the A1C assay into estimated average glucose values. ??Diabetes Care 2008:31(8):7403-6026. Blood 09/27/2020 11:4 1 AM EDT 09/27/2020 12:47 PM EDT Narrative Resulting Agency Comment Spec In Lab Tessie Robles MD CHEMISTRY ORDERABLES [facility] [place] [address] * Ferritin (09/27/2020 11:41 AM EDT) [facility] Ferritin 141 30 - 400 ng/mL [facility] Comment: Pediatric reference ranges not verified at [facility], interpret with caution. Reference ranges for females greater than 50 years of age approach values for men, i.e., 30-400 ng/mL. Blood 09/27/2020 11:4 1 AM EDT 09/27/2020 4:28 PM EDT Narrative Resulting Agency Comment Spec In Lab Tessie Robles MD CHEMISTRY ORDERABLES [facility] [place] [address] * Vitamin B12 (09/27/2020 11:41 AM EDT) Vitamin B-12 423 232 - 1,245 pg/mL [facility] Blood 09/27/2020 11:4 1 AM EDT 09/27/2020 4:28 PM EDT Narrative Resulting Agency Comment Spec In Lab Tessie Robles MD CHEMISTRY ORDERABLES Performing Organization Address City/[facility]/ZIP Co de Phone Number [facility] [place] [address] * Vitamin D, 25-Hydroxy (09/27/2020 11:41 AM EDT) 25-OH Vit D Total 41 21 - 100 ng/mL [facility] 25-OH Vit D Interp Sufficient [facility] Blood 09/27/2020 11:4 1 AM EDT 09/27/2020 4:28 PM EDT Narrative Resulting Agency Comment Spec In Lab Tessie Robles MD CHEMISTRY ORDERABLES Performing Organization Address City/[facility]/ZIP Co de Phone Number [facility] [place] [address] * (ABNORMAL) POCT glycated hemoglobin, total (HA1C) (09/27/2020) POC HA1C 7.9(A) 4.3 - 5.6 % 09/27/2020 Tessie Robles MD POINT OF CARE TEST O RDERABLES documented in this encounter Visit Diagnoses Diagnosis Class 2 obesity due to excess calories with body mass index (BMI) of 38.0 to 38.9 in adult, unspecified whether serious comorbidity present- Primary Metabolic syndrome Dysmetabolic Syndrome X Type 2 diabetes mellitus with diabetic neuropathy, without long-term current use of insulin Diabetes mellitus due to underlying condition with diabetic neuropathy, without long-term current use of insulin Dietary counseling and surveillance Dietary surveillance and counseling Cigarette nicotine dependence with nicotine-induced disorder Unspecified drug-induced mental disorder documented in this encounter Care Teams Crossing Watchman Relationship Specialty Start Date End Date Garth Marroquin DO [address] [place] [address] PCP - General Family Medicine 03/02/20 06/19/21 documented as of this encounter
--- OUTSIDE RECORDS SUMMARY | 2023-09-10 00:49 | XMS_ITS | Clinical Summary ---
Author Organization [facility] Address [facility] [place] [address] Care Team Providers Care Bed Worker Name Role Phone Judd Pizarro MD Primary Care Provider [phone] Allergies Active Allergy Reactions Criticality Noted Date Comments Celecoxib Medium 06/11/2020 Other reaction(s): Rash, urticaria Naproxen Hives 03/20/2017 Prednisone Nausea Only 03/20/2017 Medications Medication Sig Dispensed Refills Start Date End Date Status omeprazole (PRILOSEC) 40 mg Capsule, Delayed Release(E.C.) Take 40 mg by mouth daily. 01/21/2017 Active cholecalciferol, Vitamin D3, 2,000 unit Tablet Take 1 tablet by mouth daily. 11/17/2016 Active aspirin 81 mg Tablet, Delayed Release (E.C.) Take 1 tablet by mouth daily. 30 tablet 3 03/21/2017 Active lisinopril (PRINIVIL;ZESTRIL) 30 mg Tablet Take 1 tablet by mouth daily. 90 tablet 3 03/22/2017 Active HYDROCHLOROTHIAZID E ORAL Take by mouth Daily. Acti ve traMADol (ULTRAM) 50 mg Tablet take 1 tablet by mouth every 6 hours 0 11/10/2017 Active cyclobenzaprine (FLEXERIL) 10 mg Tablet take 1 tablet by mouth three times a day for muscle spasm if needed for 7 days 0 12/29/2017 Active nitroGLYcerin (Nitrostat) 0.4 mg Tablet, Sublingual PLACE 1 TABLET UNDER THE TONGUE AND ALLOW TO DISSOLVE EVERY 5 MINUTES NEEDED FOR CHEST PAINS FOR 3 DOSES 09/21/2019 Active BLOOD SUGAR DIAGNOSTIC, DISC MISC by NOT APPLICABLE route. 08/29/2019 Active lancets Misc by NOT APPLICABLE route. 08/29/2019 Active acetaminophen (Tylenol) 500 mg Tablet Take by mouth. 10/26/2017 Active albuteroL 90 mcg/actuation HFA Aerosol Inhaler Inhale into the lungs. 10/20/2019 Active empagliflozin (Jardiance) 10 mg Tablet Jardiance 10 mg tablet TAKE 1 TABLET BY MOUTH EVERY MORNING 06/28/2020 Active buPROPion SR (Wellbutrin SR) 150 mg tablet sustained-release 12 hr 05/27/2021 Active gemfibroziL (Lopid) 600 mg Tablet Take 600 mg by mouth daily. 05/14/2021 Active pantoprazole EC (Protonix) 40 mg Tablet, Delayed Release (E.C.) Take 40 mg by mouth daily. 05/23/2021 Active sucralfate (Carafate) 1 gram Tablet Take 1 g by mouth nightly. 05/23/2021 Active semaglutide (Ozempic) 1 mg/dose (4 mg/3 mL) Pen InjectorIndication s:Class 1 obesity due to excess calories with body mass index (BMI) of 34.0 to 34.9 in adult, unspecified whether serious comorbidity present Inject 1 mg subcutaneously once a week. 3 mL 01/10/2022 Active metFORMIN XR (Glucophage XR) 500 mg Tablet Sustained Release 24 hr Take 500 mg by mouth 2 times daily. 01/29/2022 Active atorvastatin (Lipitor) 10 mg Tablet Take 10 mg by mouth daily. 02/17/2022 Active HYDROcodone-acetam inophen ([place]) 5-325 mg Tablet TAKE 1 TABLET BY MOUTH UP TO EVERY 6 HOURS NEEDED FOR SEVERE PAIN OR POST OPERATIVE PAIN 12/04/2021 Active methylPREDNISolone (MEDROL DOSPACK) 4 mg Tablets, Dose Pack Use as directed on product package. 21 tablet 05/10/2022 Active Active Problems Problem Noted Date Diagnosed Date NAFLD (nonalcoholic fatty liver disease) 021 Overview (10/31/2020): ELEVATED LFTs/MAFLD Lab Results Component Value Date ALT 35 09/27/2020 AST 22 09/27/2020 FERRITIN 141 09/27/2020 PLATELET 189 04/23/2020 No results found for: A1AT Lab eval to r/o autoimmune liver dz: not indicated based on Fib 4 Imaging: CT scan 2018 of abd/ pelvis: fatty liver infiltration, no measurement Fib 4: 1.12 Class 2 obesity due to exces s calories with body mass index (BMI) of 38.0 to 38.9 in adult 09/27/2020 Metabolic syndrome 09/24/2020 Overview (09/24/2020): Diabetes, hyperTG, low HDL Pulmonary nodule 01/15/2018 Cigar smoker 01/15/2018 Diabetes mellitus 04/15/2017 Essential hypertension 04/15/2017 Unstable angina 03/20/2017 Resolved Problems Problem Noted Date Diagnosed Date Resolved Date Hypotension 12/20/2020 12/20/2020 Social History Tobacco Use Types Packs/Day Years [...] Sign Reading Time Taken Comments Blood Pressure 124/76 05/10/2022 10:00 PM EDT Pulse 114 05/10/2022 8:45 PM EDT Temperature 37.7 ??C (99.9 ??F) 05/10/2022 4:37 PM ED T Respiratory Rate 16 05/10/2022 4:37 PM EDT Oxygen Saturation 94% 05/10/2022 10:00 PM EDT Inhaled Oxygen Concentration - - Weight 104.3 kg (230 lb) 05/10/2022 4:37 PM EDT Height 165.9 cm (5' 5.32) 02/20/2022 3:58 PM ES T Body Mass Index 37.91 02/20/2022 3:58 PM EST Plan of Treatment Health Maintenance Due Date Last Done Comments CT Colonography 1963 Colonoscopy 1963 Colorectal Cancer Screening 1963 FIT DNA 1963 FIT 1963 Sigmoidoscopy (10 year) with FIT yearly 1963 Sigmoidoscopy 1963 Pneumococcal Vaccine: At-Ris k 5-64yrs (1 of 2 - PCV) 08/21/1969 DM Opthalmology Exam 08/21/1973 DM Urine Microalbumin yearly 08/21/1973 HIV screen 08/21/1981 Hepatitis C Screening 08/21/1981 Tdap adult 08/21/1982 Tetanus vaccine 08/21/1982 Zoster vaccine (1 of 2) 08/21/2013 DM Hemoglobin A1c 6 month 08/20/20222022, 03/08/2021, 12/20/2020, Additional history exists Covid-19 Vaccine (1 - 2022-2 4 season) 2022 DM Creatinine yearly 02/20/2023 02/20/2022, 04/17/2021, 04/23/2020, Additional history exists Influenza (Flu) vaccine (1 o f 1 - Influenza standard series) 10/18/2023 Goals Goal Patient Goal Type Associated Problems [...] On track(2021 10:41 AM EDT) No Nolvia Saleh RD [...] eat for the next couple months Lifestyle Nolvia Pelaez RD Note: Either in a notebook or an ilda Keep in a place near where you eat and record what you have throughout the day (write anythign that you eat or drink) Don't have to be perfect but will give some good information for next time we talk Procedures Procedure Name Priority Date/Time Associated Diagnosis Comments COMPREHENSIVE METABOLIC PANEL (NON-FASTING) Routine 02/20/2022 5:47 PM EST Class 2 obesity with body mass index (BMI) of 38.0 to 38.9 in adult, unspecified obesity type, unspecified whether serious comorbidity present SOB (shortness of breath) HC HEMOGLOBIN A1C Routine 02/20/2022 5:4 7 PM EST Class 2 obesity with body mass index (BMI) of 38.0 to 38.9 in adult, unspecified obesity type, unspecified whether serious comorbidity present SOB (shortness of breath) Type 2 diabetes mellitus with diabetic neuropathy, without long-term current use of insulin from Last 3 Months or Most Recently Relevant to Health Maintenance Results * (ABNORMAL) Hemoglobin A1c (02/20/2022 5:47 PM EST) Hemoglobin A1C 6.2(H) 4.3 - 5.6 % [facility] Comment: Reference Range: 4.3 - 5.6% [...] Mellitus, Diabetes Care 2013; 36: Suppl. 1, S67-56 Est Avg Gluc 130 mg/dL [facility] Comment: eAG equivalents for HbA1c percentages: [...] into estimated average glucose values. ??Diabetes Care 2008:31(8):5401-9014. Blood 02/20/2022 5:47 PM EST 02/20/2022 5:54 PM EST Narrative Resulting Agency Comment Spec In Lab Tessie Robles MD CHEMISTRY ORDERABLES [facility] [place] [address] * (ABNORMAL) Comprehensive metabolic panel (non-fasting) (02/20/2022 5:47 PM EST) Glucose Lvl 134 65 - 199 mg/dL [facility] Comment:Diabetes: >=200 mg/d L plus symptoms BUN 16 10 - 20 mg/dL [facility] Creatinine 1.16 0.80 - 1.50 mg/dL [facility] Sodium 139 135 - 145 mmol/L [facility] Potassium 4.3 3.5 - 5.0 mmol/L [facility] Comment: Please note: ??Patients with WBC >100,000 may have falsely elevated Potassium levels. ??For accurate Potassium quantification in these patients send serum separator tube (gold top) for subsequent determinations. ??Contact the Clinical Chemistry Laboratory if there are any questions. Chloride 105 98 - 107 mmol/L [facility] CO2 21(L) 22 - 31 mmol/L [facility] Anion Gap 13 5 - 15 mmol/L [facility] Calcium 9.4 8.5 - 10.5 mg/dL [facility] Total Protein 6.9 6.1 - 8.0 g/dL [facility] Albumin 4.4 3.2 - 5.2 g/dL [facility] AST 14 0 - 39 unit/L [facility] ALT 26 0 - 55 unit/L [facility] Alk Phos 120 40 - 130 unit/L [facility] Total Bilirubin <0.2(L) 0.2 - 1.3 mg/dL [facility] Estimated GFR 73 >=60 mL/min/1. 73 m?? [facility] Comment: This patient's estimated GFR was calculated using the 2020 CKD-EPI equation. The estimated GFR can vary from the measured GFR by up to 30% in the absence of rapidly changing kidney function. Assessment of the estimated GFR is not appropriate when creatinine concentrations are rapidly changing. For clinical situations in which a more precise estimate of GFR is necessary, consider alternative methods of GFR estimation such as a 24-hour urine creatinine clearance. Assignment of CKD stage 1-5 for patients with an eGFR near the transition point between stages may be based on clinical assessment of muscle mass and symptoms in addition to eGFR. Blood 02/20/2022 5:47 PM EST 02/20/2022 5:54 PM EST Narrative Resulting Agency Comment Spec In Lab Tessie Robles MD CHEMISTRY ORDERABLES [facility] [place] [address] from Last 3 Months or Most Recently Relevant to Health Maintenance Advance Directives Documents on File Type Date Recorded Patient Swift Tender Expl anation Advance Directives and Livin g Will 03/23/2017 11:39 AM * Full Code (Latest Code Status on File) Date Activated Date Inactivated Comments 03/20/2017 2:40 PM 03/21/2017 3:33 PM Question Answer Comments Does patient have capacity to make decision: Yes Care Teams Bed Worker Relationship Specialty Start Date End Date Judd Pizarro MD [facility] [place] [phone] PCP - General Family Medicine 06/20/21
--- OUTSIDE RECORDS SUMMARY | 2023-09-10 00:49 | XMS_ITS | Encounter Summary ---
Author Organization [facility] Address [facility] [place] [address] Care Team Providers Care Roll Icer Machine Name Role Phone Garth Marroquin DO Primary Care Provider [phone] Reason for Visit * Reason Comments Follow-up weight managment Encounter Details Date Type Department Care Team (Late st Contact Info) Description 10/26/2020 12:00 PM EDT Office Visit Weight and Wellness at [address] [phone] Tessie Robles MD [facility] [address] [facility] [place] [address] Class 2 obesity due to excess calories with body mass index (BMI) of 38.0 to 38.9 in adult, unspecified whether serious comorbidity present (Primary Dx); Elevated LFTs; Type 2 diabetes mellitus with diabetic neuropathy, without long-term current use of insulin; Dietary counseling and surveillance Social History Tobacco Use Types Packs/Day Years [...] Sign Reading Time Taken Comments Blood Pressure 114/48 10/26/2020 11:45 AM EDT Pulse 64 10/26/2020 11:45 AM EDT Temperature - - Respiratory Rate 14 10/26/2020 11:4 5 AM EDT Oxygen Saturation 98% 10/26/2020 11: 45 AM EDT Inhaled Oxygen Concentration - - Weight 104.8 kg (231 lb 1.6 oz) 021 11:45 AM EDT Height 165.9 cm (5' 5.32) 10/26/2020 1 1:45 AM EDT Body Mass Index 38.08 10/26/2020 11:45 AM EDT documented in this encounter Patient Instructions * Patient Instructions* Tessie Robles MD - 10/26/2020 12:00 PM EDT Continue Ozempic -one more dose at 0.25mg then increase per prescription, and I am sending a refilltoday fo 0.5mg weekly. Goals Addressed This Visit's Progress ??? Decrease Sweetened creamer Try changing to regular cream or 1/2N1/2 in your coffee instead of sweetened creamer. ??? Nutrition Instead of chips or snack cakes - substitute chopped celery and peanut butter. Below are guidelines for optimal health that [...] a general recommendation for all patients. Your leather stretcher and provider will help make more specific [...] increasing mindfulness throughout the day. Your health graduation coach is well-equipped to guide you to find something to look forward to everyday. Eating behaviors: many people benefit from restricting the hours in which they eat. You can choose an eating window of 8-12 hours to start. Make a pact with yourself that you will not take in anything with caloric content outside this window. Your leather stretcher may make further recommendations documented in this encounter Progress Notes * Tessie Robles MD - 10/26/2020 12:00 PM EDTSummary: Visit #2 [facility] Patient Name: Pavan Padilla Date of : 1965 Age: 55 y.o. Garth Marroquin DO Thank you for referring Pavan Padilla to the [facility] Center. I saw him for a follow-up visit today, 10/26/20. Please see changes to care as documented in the assessment and plan. CHIEF COMPLAINT: F/u for treatment of WHO Class 2 / EOSS Stage 3 Obesity defined by a BMI of Body mass index is 38.08 kg/m??. and comorbidities HTN, Smoker and Vitamin D deficiency. Sleep apnea-treated, Diabetes withneuropathy, Osteoarthritis. This is a 1 month fol[address]ow-up [facility] visit for this 55 y.o. patient. Weight gain due to: less activity, weight gaining medications, increased intake and [facility] Barriers: adentulous Initial visit: 09/27/20 Initial weight: 231# Initial BMI: 38.17 kg/m??. Goal weight: 165 10% loss: 210# Other goals: Improve diabetes Today's weight: 231 Change since prior: 0 [facility] Team: Tessie Robles MD, Justyna Horan RD and Agiular Lagunas, Health Psychology Associate - all pending HPI Moving - [place]. Ok with new medication but not happy with lack of weight loss TODAY PATIENT REPORTS (Topics discussed today in BOLD): Nutrition: Has not seen dietitian yet. Behavior: Activity: Sleep: no concerns Stress: no concerns Self-monitoring: [] Daily or weekly weights [x] Food log/ilda [] Other AOM review: Currently taking: semaglutide 0.25mg x 3 doses, definite decrease in appetite side effects: none AOM HX: Semaglutide Started: 09/27/20 Starting weight: 231 24 hour intake Coffee in the AM - 2-3 pots adds Faroese Vanilla Creamer - starts 4AM Nothing to eat until 12noon Noon: [place] on white, lettuce, tomato, meat, cheese, mustard; lightly salted potato chips, iced tea -sweetened and lemon/store bought Snack: potato chips [id number]: TopRamen if Naty is not home (four days per week) - 2 packages 7PM:potato chips or snack cake Cutting back on snack cakes Patizanen has no teeth so limits someintake Obesogenic meds: gabapentin - for neuropathy, ; amitriptyline - also for neuropathy - stopped, glipizide - stopped COMORBIDITIES ADDRESSED TYPE 2 DM Recent Labs 09/27/20 1141 09/27/20 0000 HA1C 8.0* 7.9* Diagnosed 3-4 years ago. Last A1c by report: 6.0% in July - checked capillary and venous today Complications: neuropathy Current medications: empagliflozin, metfromin 1000mg daily, semaglutide Prior Medications: glipizide Following with: PCP Started semaglutide x 3 doses, no side effects TOBACCO USE History: MANY YEARS, at about 2 ppd, had success with one brand of patch in the past, but when changed to a diff brand, cravings resumed. ELEVATED LFTs/MAFLD Lab Results Component Value Date ALT 35 09/27/2020 AST 22 09/27/2020 FERRITIN 141 09/27/2020 PLATELET 189 04/23/2020 No results found for: A1AT Lab eval to r/o autoimmune liver dz: not indicated based on Fib 4 Imaging: CT scan 2018 of abd/ pelvis, waiting on report Fib 4: 1.12 REVIEW OF LABS/DIAGNOSIS SINCE LAST VISIT As above REFERRALS Completed/result: Pending:JAH, RD [x] I reviewed past / interim records including notes and labs. Pathway: [facility] PATHWAY - ADULT 09/27/2020 Obesity Medicine Activate Adult Biobank Activate PATHWAY DISCUSSION - cannot do Zoom Food Behaviors In your opinion do you [...] with junk food, Ring dings, chips, etc ?? Appetite: normal Satiety: normal Eating out of: []?Hunger []?Habit []?It's time. [x]?Boredom- sometimes []?Emotions Eating patterns: []? Mindless eating []? binge eating []? Grazing []? skips meals []? Night eating ? Movement: [facility]: PAVS 09/27/2020 How many days [...] per week, which are physically active ?? Stress Management: Not addressed REVIEW OF SYSTEMS: see above HPI for pertinent +/- findings VITAL SIGNS: Vitals: 10/26/20 1145 BP: 114/48 BP Location (NBP): Left arm Patient Position: Sitting BP Cuff Sizes: Large Adult (32-43 cm) Pulse: 64 Resp: 14 SpO2: 98% Weight: 104.8 kg (231 lb 1.6 oz) Height: 165.9 cm (5' 5.32) Body mass index is 38.08 kg/m??. Last 5 weight values: Wt Readings from Last 5 Encounters: 10/26/20 104.8 kg (231 lb 1.6 oz) 09/27/20 105.1 kg (231 lb 9.6 oz) 11/22/18 113.4 kg (250 lb) 01/15/18 110.2 kg (243 lb) 04/16/17 108 kg (238 lb) PHYSICAL EXAM: Gen: Alert and appropriate, NAD. LABS: Last CBC Lab Results Component Value Date [...] 09/27/2020 ALBUMIN 4.2 09/27/2020 PROT 6.8 09/27/2020 Lipid Panel Lab Results Component Value Date CHLPL 188 09/27/2020 HDL 22 09/27/2020 CHOLHDL 8.5 09/27/2020 TRIG 668 09/27/2020 LDLCHOL Not Calculated 09/27/2020 LDLDIRECT 79 09/27/2020 Last 3 Hemoglobin A1Cs Lab Results Component Value Date HA1C 8.0 (H) 09/27/2020 HA1C 7.9 (A) 09/27/2020 HA1C 6.0 (H) 03/21/2017 Latest TSH Lab Results Component Value Date TSH 1.26 (External Lab) 04/23/2020 Lab Results Component Value Date FERRITIN 141 09/27/2020 Lab Results Component Value Date [id number] 09/27/2020 25-OH Vit D Total (ng/mL) Date Value Status 09/27/2020 41 Final ASSESSMENT AND PLAN Pavan Padilla was seen in follow up today for ongoing obesity, not yet at treatment goal [] with improvement [x] without change. Goals and treatment options were discussed. Continue medical management and lifestyle changes. INITIAL EVALUATION: FACTORS CONTRIBUTING TO OBESITY/INTERVENTION Medical: []?Probable insulin resistance []?possible sleep apnea []?Insomnia Obesogenic meds: []?none [x]?diabetic []? anti-depressant []?anti-anxiety []?mood stabilizers []?anti HTN []?sleep meds [x]?neuropathic pain control []?contraceptives []?chronic steroids Plan: []?request PCP/specialist address [x]?plan determined with OM provider-see AOM plan below []?consulted with pharmacy [x]?No change at this time for neuropathic meds []?Other Co-morbidities to address: Type 2 DM Risk Stratification: []?evaluate liver - Fib 4 normal []?PCOS evaluation ?? Nutrition: see patient goals for recommended changes today; specific recommendations per RD []??good base knowledge ??[]??needs development: [x]?may benefit [...] ACT, for unplanned eating event with UHPF ?? Activity: provided resistance bands and booklet Barriers: []?needs cardiac eval []?injury/pain preventing activity [...] behavioral interventions, see goals Referrals: Dietitian, Health Psychology Associate, AOM: Continue semaglutide for DM and weight loss Medications to consider: [x]?insulin sensitizing meds []?phentermine []?topiramate []?bupropion []?naltrexone Factors contributing to decision making: NO hx of pancreatitis, NO Fam or personl hx of medullary thyroid ca Pathway: deferred until second visit except: []?Individual []?HLP []?Surgery []?Culinary []?ACT []?Monthly Lifestyle Classes Discussion 09/27/20: obesogenic meds, Pillars, Discussion 10/26/20: dietary counseling Pavan was seen today for follow-up . Diagnoses and all orders for this visit: Class 2 obesity due to excess calories with body mass index (BMI) of 38.0 to 38.9 in adult, unspecified whether serious comorbidity present - semaglutide (Ozempic) 0.25 mg or 0.5 mg(2 mg/1.5 mL) Pen Injector; Inject 0.5 mg subcutaneously once a week. Elevated LFTs Type 2 diabetes mellitus with diabetic neuropathy, without long-term current use of insulin - semaglutide (Ozempic) 0.25 mg or 0.5 mg(2 mg/1.5 mL) Pen Injector; Inject 0.5 mg subcutaneously once a week. Dietary counseling and surveillance Return in about 4 weeks (around 11/23/2020) for MED CHECK - 15. 12 min chart review 30 min [id number] Visit time 5 min Documentation time I spent time as above caring for this patient today; reviewing labs, writing prescriptions, documenting visit, examining the patient, arranging other specialty care, counseling in diet and/or exercise and discussion of treatment options in the care of obesity. documented in this encounter Plan of Treatment [...] of this encounter Visit Diagnoses Diagnosis Class 2 obesity due to excess calories with body mass index (BMI) of 38.0 to 38.9 in adult, unspecified whether serious comorbidity present- Primary Elevated LFTs Other abnormal blood chemistry Type 2 diabetes mellitus with diabetic neuropathy, without long-term current use of insulin Dietary counseling and surveillance Dietary surveillance and counseling documented in this encounter Care Teams Roll Icer Machine Relationship Specialty Start Date End Date Garth Marroquin DO [address] [place] [address] PCP - General Family Medicine 03/02/20 06/19/21 documented as of this encounter
--- OUTSIDE RECORDS SUMMARY | 2023-09-10 00:49 | XMS_ITS | Encounter Summary ---
Author Organization [facility] [place] [address] Care Team Providers Care Farm Service Adviser Name Role Phone Garth Marroquin DO Primary Care Provider [phone] Encounter Details Date Type Department Care Team (Late st Contact Info) Description 05/07/2021 Telephone Sleep Center at [facility] [address] [place] [phone] Emilie Galvan, RN Social History Tobacco Use [...] encounter Miscellaneous Notes * Telephone Encounter - Emilie Galvan - 05/07/2021 12:57 PM EDT Spoke to patient, he has been taking Ozempic- has taken 3 doses of 1mg Ozempic. States he just started burping recently and the taste is so bad that it makes him gag. He is seeing PCP , he may go to hospital sooner because he is feeling sick because of the burping. Told patient to keep in touch and let us know if he holds a dose of Ozempic. documented in this encounter Plan of Treatment [...] on filedocumented in this encounter Care Teams Farm Service Adviser Relationship Specialty Start Date End Date Garth Marroquin DO [address] [place] [address] PCP - General Family Medicine 03/02/20 06/19/21 documented as of this encounter
--- OUTSIDE RECORDS SUMMARY | 2023-09-10 00:49 | XMS_ITS | Encounter Summary ---
Author Organization [facility] [address] [facility] [place] [address] Care Team Providers Care Cinder Crane Operator Name Role Phone Judd Pizarro MD Primary Care Provider [phone] Encounter Details Date Type Department Care Team (Latest Contact Info) Description 02/20/2022 Travel Social History Tobacco Use Types Packs/Day Years [...] on filedocumented in this encounter Care Teams Cinder Crane Operator Relationship Specialty Start Date End Date Judd Pizarro MD [address] [place] [address] PCP - General Family Medicine 06/20/21 documented as of this encounter
--- OUTSIDE RECORDS SUMMARY | 2023-09-10 00:49 | XMS_ITS | Encounter Summary ---
Author Organization [facility] [place] [address] Care Team Providers Care Township Supervisor Name Role Phone Garth Marroquin DO Primary Care Provider [phone] Reason for Visit * Reason Onset Date Comments Medication Refill 01/16/2021 Encounter Details Date Type Department Care Team (Late st Contact Info) Description 01/16/2021 Refill Weight and Wellness at [address] [phone] Martina Jerome, CONTENT CREATION MANAGER Class 2 obesity due to excess calories with body mass index (BMI) of 38.0 to 38.9 in adult, unspecified whether serious comorbidity present; Type 2 diabetes mellitus with diabetic neuropathy, [...] insulin documented in this encounter Care Teams Township Supervisor Relationship Specialty Start Date End Date Garth Marroquin DO [facility] [place] [address] [place] [address] PCP - General Family Medicine 03/02/20 06/19/21 documented as of this encounter
--- OUTSIDE RECORDS SUMMARY | 2023-09-10 00:49 | XMS_ITS | Encounter Summary ---
Author Organization [facility] Address [facility] [place] [address] Care Team Providers Care Labor Relations Consultant Name Role Phone Garth Marroquin DO Primary Care Provider [phone] Reason for Visit * Reason Comments Follow-up weight managment Encounter Details Date Type Department Care Team (Late st Contact Info) Description 12/20/2020 3:30 PM EDT Office Visit Weight and Wellness at [address] [phone] Tessie Robles MD [facility] [place] [address] Class 2 obesity due to excess calories with body mass index (BMI) of 38.0 to 38.9 in adult, unspecified whether serious comorbidity present (Primary Dx); Type 2 diabetes mellitus without complication, without long-term current use of insulin; Hypotension, unspecified hypotension type Social History Tobacco Use Types Packs/Day Years [...] Sign Reading Time Taken Comments Blood Pressure 88/50 12/20/2020 3:19 PM EDT Pulse 64 12/20/2020 3:19 PM EDT Temperature - - Respiratory Rate - - Oxygen Saturation 99% 12/20/2020 3:19 PM EDT Inhaled Oxygen Concentration - - Weight 99.7 kg (219 lb 14.4 oz) 12/20/2020 3:19 PM EDT Height 165.9 cm (5' 5.32) 12/20/2020 3:19 PM ED T Body Mass Index 36.24 12/20/2020 3:19 PM EDT documented in this encounter Patient Instructions * Patient Instructions* Tessie Robles MD - 12/20/2020 3:30 PM EDT Stop taking amlodipine. I will update your PCP. Start checking blood pressures daily - alternate times of day. I will ask Emilie to check in on your BP mid next week. Continue Ozempic shots 0.5mg See our dietitian, next avaiable. documented in this encounter Progress Notes * Tessie Robles MD - 12/20/2020 3:30 PM EDT [facility] Patient Name: Pavan Pdailla Date of : 1965 Age: 55 y.o. Garth Marroquin DO Thank you for referring Pavan Padilla to the Weight and Wellness Center. I saw him for a follow-up visit today, 12/20/20. Please see changes to care as documented in the assessment and plan. CHIEF COMPLAINT: F/u for treatment of WHO Class 2 / EOSS Stage 3 Obesity defined by a BMI of Body mass index is 36.24 kg/m??. and comorbidities HTN, Smoker and Vitamin D deficiency. Sleep apnea-treated, Diabetes withneuropathy, Osteoarthritis. This is a folllow-up [facility] visit for this 55 y.o. patient. Weight gain due to: less activity, weight gaining medications, increased intake and frequent snacking on PF Barriers: adentulous Initial visit: 09/27/20 Initial weight: 231# Initial BMI: 38.17 kg/m??. Goal weight: 165 10% loss: 210# Other goals: Improve diabetes Today's weight: 219.75 Change since prior: -12# [facility] Team: Tessie Robles MD, Justyna Horan RD and Aguilar Lagunas, Health Customs Agent - all pending HPI is worried about his low intake HYPOTENSION - noted on exam today, has monitor at home but has not been following. Asymptomatic. Onamlodipine, lisinopril, hctz. TODAY PATIENT REPORTS (Topics discussed today in [...] day, is concernd. NO GI side effects AOM HX: Semaglutide Started: 09/27/20 Starting weight: [...] semaglutide Prior Medications: glipizide Following with: PCP TOBACCO USE History: MANY YEARS, at about 2 ppd, had success with one brand of patch in the past, but when changed to a diff brand, cravings resumed. Pathway: [facility] PATHWAY - ADULT 09/27/2020 Obesity Medicine Activate Adult Biobank Activate PATHWAY DISCUSSION - cannot do Zoom Food Behaviors Patietn has no teeth so limits someintake In your opinion do you eat a [...] skips meals []? Night eating ? Movement: C: PAVS 09/27/2020 How many days during the [...] for pertinent +/- findings VITAL SIGNS: Vitals: 12/20/20 1519 BP: (!) 88/50 BP Location (NBP): Left arm Patient Position: Sitting BP Cuff Sizes: Adult (25-34 cm) Pulse: 64 SpO2: 99% Weight: 99.7 kg (219 lb 14.4 oz) Height: 165.9 cm (5' 5.32) Body mass index is 36.24 kg/m??. Last 5 weight values: Wt Readings from Last 5 Encounters: 12/20/20 99.7 kg (219 lb 14.4 oz) 10/26/20 104.8 kg (231 lb 1.6 oz) 09/27/20 105.1 kg (231 lb 9.6 oz) 11/22/18 113.4 kg (250 lb) 01/15/18 110.2 kg (243 lb) PHYSICAL EXAM: Gen: Alert and appropriate, NAD. LABS: Lab Results Component Value Date ALT 35 [...] 8.0 (H) 09/27/2020 HA1C 7.9 (A) 09/27/2020 ASSESSMENT AND PLAN Pavan Padilla was seen in follow up today for ongoing obesity, not yet at treatment goal [x] with improvement [] without change. Goals and treatment options were discussed. Continue medical management and lifestyle changes. INITIAL EVALUATION: FACTORS CONTRIBUTING TO OBESITY/INTERVENTION Obesogenic meds: []?none [x]?diabetic []? anti-depressant []?anti-anxiety [...] for recommended changes today; specific recommendations per RD, recommended ensuring he get 2 nourishing meals per day []??good base knowledge ??[]??needs development: [x]?may benefit [...] UHPF - improved with medication ?? Activity: provided resistance bands and booklet [...] behavioral interventions, see goals Referrals: Dietitian, Health Customs Agent, AOM: Continue semaglutide for DM and weight loss, schedule RD to evaluate intake. Recheck in 4 weeks. Medications to consider: [x]?insulin sensitizing meds []?phentermine []?topiramate []?bupropion []?naltrexone Factors contributing to decision making: NO hx of pancreatitis, NO Fam or personl hx of medullary thyroid ca Pathway: deferred until second visit except: []?Individual []?HLP []?Surgery []?Culinary []?ACT []?Monthly Lifestyle Classes Discussion 09/27/20: obesogenic meds, Pillars, Discussion 12/20/20: dietary counseling Pavan was seen today for follow-up . Diagnoses and all orders for this visit: Class 2 obesity due to excess calories with body mass index (BMI) of 38.0 to 38.9 in adult, unspecified whether serious comorbidity present Type 2 diabetes mellitus without complication, without long-term current use of insulin - POCT glycated hemoglobin, total (HA1C) Hypotension, unspecified hypotension type Comments: Hold amlodipine, will update PCP and request he determine next steps . Return in about 4 weeks (around 01/17/2021) for Zoom or clinic, //RD:, Next available - has not yet been seen by RD. documented in this encounter Plan of [...] and banana) documented as of this encounter Procedures Procedure Name Priority Date/Time Associated Diagnosis Comments POCT GLYCATED HEMOGLOBIN, TOTAL (HA1C) Routine 12/20/2020 4:15 PM EDT Type 2 diabetes mellitus without complication, without long-term current use of insulin documented in this encounter Results * (ABNORMAL) POCT glycated hemoglobin, total (HA1C) (12/20/2020 4:15 PM EDT) POC HA1C 6.8(A) 4.3 - 5.6 % 12/20/2020 4:15 PM EDT Tessie Robles MD POINT OF CARE TEST O RDERABLES documented in this encounter Visit Diagnoses Diagnosis Class 2 obesity due to excess calories with body mass index (BMI) of 38.0 to 38.9 in adult, unspecified whether serious comorbidity present- Primary Type 2 diabetes mellitus without complication, without long-term current use of insulin Hypotension, unspecified hypotension type documented in this encounter Care Teams Labor Relations Consultant Relationship Specialty Start Date End Date Garth Marroquin DO [address] [place] [address] PCP - General Family Medicine 03/02/20 06/19/21 documented as of this encounter
--- OUTSIDE RECORDS SUMMARY | 2023-09-10 00:49 | XMS_ITS | Encounter Summary ---
Author Organization [facility] Address [facility] [place] [address] Care Team Providers Care District Gauger Name Role Phone LopezGarth DO Primary Care Provider [phone] Encounter Details Date Type Department Care Team (Latest Contact Info) Description 05/06/2021 2:00 PM EDT TH Visit (TeleHealth) Weight and Wellness at [address] [address] Nolvia Saleh, [place] [address] Adult BMI 34.0-34.9 kg/sq m; Adult BMI 35.0-35.9 kg/sq m Social History Tobacco Use Types [...] - Inhaled Oxygen Concentration - - Weight 96.6 kg (213 lb) 05/06/2021 3:00 PM EDT Height 165.9 cm (5' 5.32) 05/06/2021 3:00 PM ED T Body Mass Index 35.1 05/06/2021 3:00 PM EDT documented in this encounter Patient Instructions * Patient Instructions* Nolvia Saleh RD - 05/06/2021 2:59 PM EDT It was great to chat with you, Pavan . Below are goals discussed today as well as in past visits. Please reach out with a [employer] message if you have any questions or concerns. Nolvia Goals beverages Pepsi: Consider working down from 2 cans to 1 can daily Start by drinking at least 1 bottle of water - work up to 4 Try switching to water after 1 or 2 mugs of coffee and alternating Consider not snacking before bed It's not that you can never have any cookies A few options to have LESS: - keep in the house less often or not at all - have immediately following dinner instead of before bed - have 1 instead of 2 - have twice a week instead of daily Nutrition Instead of chips or snack cakes - substitute chopped celery and peanut butter. ANY time you're eating (meal or snack) make sure there's a protein there - Nuts or peanut butter -eggs - cottage cheese - meat / cheese (deli meat and cheese roll up can make a nice snack) For example, add peanut butter or cottage cheese to your fruit Nutrition Change to whole wheat toast or [place] Muffin at breakfast. Instead of 4 eggs , have 2 eggs and peanut butter on the [place] muffin. When looking for a whole grain bread: 5 grams or less of sugar, the first word in the ingredient's list Whole grain (oat, wheat) Continue using the regular creamer with half packet sweet n low, consider using less over time documented in this encounter Progress Notes * Nolvia Saleh RD - 05/06/2021 2:00 PM EDT Nutrition Intervention for Weight Management Initial RD visit with GILSON Cadet 1965 Assessment/Nutrition Diagnosis: Pt at increased nutritional risk related to excessive calorie intake and sub optimal physical activity resulting in overweight/obesity as evidenced by BMI and diet recall Telehealth visit conducted while patient was at home at the following address: [address] [place] [address] [address] [facility] [address] Weight Today: 213 lb from home scale Wt Readings from Last 3 Encounters: 05/06/21 96.6 kg (213 lb) 03/22/21 98 kg (216 lb) 12/21/20 100.7 kg (222 lb) BMI Readings from Last 3 Encounters: 05/06/21 35.10 kg/m?? 03/22/21 34.86 kg/m?? 12/21/20 35.83 kg/m?? Interview: Last week got swelling at insertion point. Attempted to call but never got connected last week. Will send a message to our nurse. Also experiencing reflux/burping more than usual. Passed along to ourteam who will reach out. Has cut down on the amount of eggs he's been eating. Switched to honey wheat bread from white bread(reviewed ingredients and how to determine if bread is whole wheat- see goals). Not eating as much bread as he used to overall. In terms of what brought him to our clinic, his doctor was concerned about blood sugar, diverticulitis, blood pressure. Anything else (besides eating more bread) that he feels like he's doing differently? Getting outside more, cleaning up the yard, chasing granddaughter (3 yo) Discussed snacking before bed- is considering reducing. Discussed some options for this and furtherreduction in soda (see goals). Encouraged Pavan to consider which of these goals he'd like to take on or consider. Weight Loss History: Has tried to lose weight in the past didn't work out the way I thought it would. Was trying to eat once a day, had excess hunger. Typical Dietary Intake: B: 2-3 eggs, [place] muffin L: dinner leftovers (not sure if he ate lunch today) D: Rice with tomato sauce S: oranges, grapes, apples (once in a day) Salted potato chips (maybe once a week) Depends on the day, might have more than one snack A cookie or 2 before bed Dinner examples: cheeseburger, pork chops, Typical Beverages: [x] coffee (2 Pots a day) [x] half and half (unflavored) [] flavored creamer (sugar) [] flavored creamer (sugar-free) [] added sugar - (total: [x] added non-caloric sweetener (sweet n low) [x] water - (total: every once in a while) [] plain [] crystal light or other sugar-free additive [x] regular soda (Pepsi, probably 2 cans a day. Used to drink a lot of soda (6 pack a day at least). Since starting the ozempic his appetite has changed and made this possible [x] juice (once in a while just to treat a low blood sugar) [] milk Appetite/Hunger: [] feels managed with foods/meals outlined above [x] discussed meal/snack schedule adjustment today- see goals [] patient identifies eating for reasons other than hunger- see interview below Food Tracking: [] Current food Tracking [] discussed potential benefit starting food tracking - see goals [x] Food tracking not appropriate for patient at this time- trouble writing Patient Goals from Team: Goals ??? Decrease Sweetened creamer Try changing to regular cream or 1/2N1/2 in your coffee instead of sweetened creamer. ??? Nutrition Instead of chips or snack cakes - substitute chopped celery and peanut butter. ??? Nutrition Change to whole wheat toast or [place] Muffin at breakfast. Instead of 4 eggs , have 2 eggs and peanut butter on the [place] muffin. Consider changing to HalfNHalf or cream in your coffee. (Dr. Wright also like to use Pure Protein vanilla instead of creamer) ??? Self monitoring Keep food log until you are seen by the dieititian. Record everything you eat or drink, include time eaten and any emotional changes that are significant. Other topics discussed: [] Eating an appropriate amount of food for your body [x] Reduce highly processed foods, refined carbohydrates, in favor of whole foods [x] Reduce sweet taste in your diet (whether by sugar or non-nutritive sweeteners) Activity: [] reviewed current goals [] updated goals Has been outside and moving more (see above) Barriers to Change: None identified at this time Nutrition Goals updated today: Goals Addressed This Visit's Progress ??? beverages Pepsi: Consider working down from 2 cans to 1 can daily Start by drinking at least 1 bottle of water - work up to 4 Try switching to water after 1 or 2 mugs of coffee and alternating ??? Consider not snacking before bed It's not that you can never have any cookies A few options to have LESS: - keep in the house less often or not at all - have immediately following dinner instead of before bed - have 1 instead of 2 - have twice a week instead of daily ??? Nutrition Instead of chips or snack cakes - substitute chopped celery and peanut butter. ANY time you're eating (meal or snack) make sure there's a protein there - Nuts or peanut butter -eggs - cottage cheese - meat / cheese (deli meat and cheese roll up can make a nice snack) For example, add peanut butter or cottage cheese to your fruit ??? Nutrition On track Change to whole wheat toast or [place] Muffin at breakfast. Instead of 4 eggs , have 2 eggs and peanut butter on the [place] muffin. When looking for a whole grain bread: 5 grams or less of sugar, the first word in the ingredient's list Whole grain (oat, wheat) Continue using the regular creamer with half packet sweet n low, consider using less over time Monitor/Evaluate: Return in about 1 month (around 06/06/2021) for young POLLACK. Aim for 5-10% weight loss from ABW x 3-6 months from initial visit Thank you Nolvia Saleh RD [facility] 60 minutes were spent in visit today, including [...] Lifestyle On track( 022 10:41 AM EDT) No Nolvia Saleh RD [...] kg/sq m Body Mass Index 34.0-34.9, adult Adult BMI 35.0-35.9 kg/sq m Body Mass Index 35.0-35.9, adult documented in this encounter Care Teams District Gauger Relationship Specialty Start Date End Date Garth Marroquin DO [address] [place] [address] PCP - General Family Medicine 03/02/20 06/19/21 documented as of this encounter
--- OUTSIDE RECORDS SUMMARY | 2023-09-10 00:49 | XMS_ITS | Encounter Summary ---
Author Organization [facility] [address] Care Team Providers Care Filer And Sander Name Role Phone Judd Pizarro MD Primary Care Provider [phone] Encounter Details Date Type Department Care Team (Late st Contact Info) Description 05/10/2022 1:05 PM EDT Ancillary Procedure [place] [address] Nic Samaniego MD [facility] [address] [facility] [place] [address] Social History Tobacco Use Types Packs/Day Years Used Date Smoking Tobacco: Every Day Cigarettes 1.5 38 Smokeless Tobacco: Never Alcohol Use Standard Drinks/Week Comments No 0 (1 standard drink = 0.6 oz pure alcohol) Formerly heavy - stopped a few years ago. [facility] Inpatient Questions Answer Date Recorded Does Anyone [...] Nutrition Lifestyle On track(2021 11:12 AM EDT) Tessie De Anda MD [...] we talk documented as of this encounter Procedures Procedure Name Priority Date/Time Associated Diagnosis Comments FILM LIBRARY STORAGE ONLY CT SPINE Routine 05/10/2022 1:03 PM EDT documented in this encounter Results * Film Library- Storage Only CT Spine (05/10/2022 1:03 PM EDT) Narrative [facility] - 05/10/2022 1:03 PM EDT This exam is auto-finalizing. It's purpose is for storage only. Nic Samaniego MD IMG FILM LIBRARY ORDERABLES Performing Organization Address City/State/[facility] Co de Phone Number [place], [place] documented in this encounter Visit Diagnoses Not on filedocumented in this encounter Care Teams Filer And Sander Relationship Specialty Start Date End Date Judd Pizarro MD [address] [place] [address] PCP - General Family Medicine 06/20/21 documented as of this encounter
--- OUTSIDE RECORDS SUMMARY | 2023-09-10 00:49 | XMS_ITS | Encounter Summary ---
Author Organization [facility] Address [facility] [place] [address] Care Team Providers Care Caterpillar Mechanic Name Role Phone Judd Pizarro MD Primary Care Provider [phone] Reason for Visit * Reason Comments Medication Refill Encounter Details Date Type Department Care Team (Late st Contact Info) Description 01/22/2021 Refill Weight and Wellness at [address] [address] Tessie Robles MD [facility] [address] [place] [address] Class 2 obesity due to excess calories [...] insulin documented in this encounter Care Teams Caterpillar Mechanic Relationship Specialty Start Date End Date Raser, Judd, MD [address] [place] [phone] PCP - General Family Medicine 06/20/21 documented as of this encounter
--- OUTSIDE RECORDS SUMMARY | 2023-09-10 00:49 | XMS_ITS | Encounter Summary ---
Author Organization [facility] [place] [address] Care Team Providers Care Restaurant General Manager Name Role Phone Judd Pizarro MD Primary Care Provider [phone] Reason for Visit * Reason Onset Date Comments Medication Refill 01/06/2022 Encounter Details Date Type Department Care Team (Late st Contact Info) Description 01/06/2022 Refill Weight and Wellness at [address] [phone] Martina Jerome, [facility] Class 1 obesity due to excess calories [...] encounter Miscellaneous Notes * Telephone Encounter - Tessie Robles MD - 01/10/2022 3:35 PM EST I am sending the prescription fro one month documented in this encounter Plan of Treatment [...] present documented in this encounter Care Teams Restaurant General Manager Relationship Specialty Start Date End Date Judd Pizarro MD [address] [place] [address] PCP - General Family Medicine 06/20/21 documented as of this encounter
--- OUTSIDE RECORDS SUMMARY | 2023-09-10 00:49 | XMS_ITS | Encounter Summary ---
Author Organization [facility] [place] [address] Care Team Providers Care Engineering Systems Analyst Name Role Phone Garth Marroquin DO Primary Care Provider [phone] Encounter Details Date Type Department Care Team (Late st Contact Info) Description 12/27/2020 Telephone Weight and Wellness at [facility] [address] [place] [address] Emilie Galvan, RN Social History Tobacco Use [...] * Telephone Encounter - Emilie Galvan - 12/27/2020 1:23 PM EST Patient's BP readings: 12/22: 96/69 12/24: 131/64 12/25: 119/71 Patient has been asymptomatic and feels fine. His PCP is following and will see him for a visit on 01/07. * Telephone Encounter - Emilie Galvan - 12/27/2020 1:23 PM EST ----- Message from Tessie Robles MD sent at 12/20/2020 7:05 PM EDT ----- Regarding: Checking BPs I stopped amlodiopine last week and asked patietn to monitor Bps. Also asked PCP to further manage.Will you call patient, ask about Bp's. Is he symptomatic if Bps are low (<100/60)? Did his PCP get intouch with him? Thank you! Debbie documented in this encounter Plan of Treatment [...] on filedocumented in this encounter Care Teams Engineering Systems Analyst Relationship Specialty Start Date End Date Garth Marroquin DO [address] [place] [address] PCP - General Family Medicine 03/02/20 06/19/21 documented as of this encounter
--- OUTSIDE RECORDS SUMMARY | 2023-09-10 00:49 | XMS_ITS | Encounter Summary ---
Author Organization [facility] Includes [facility] [address] Care Team Providers Care Artist Scientific Name Role Phone Judd Pizarro MD Primary Care Provider Reason for Visit * Reason Onset Date Comments Appointment 11/29/2021 Encounter Details Date Type Department Care Team (Late st Contact Info) Description 11/29/2021 Telephone Weight and Wellness at [facility] [address] [place] [phone] Mariam Reynoso V Appointment Social History Tobacco Use Types Packs/Day [...] Telephone Encounter - Mariam Reynoso V - 11/29/2021 2:19 PM EDT Lm to reschedule missed appt with Ann Marie. documented in this encounter Plan of Treatment [...] on filedocumented in this encounter Care Teams Artist Scientific Relationship Specialty Start Date End Date Judd Pizarro MD [address] [place], [place] [address] [phone] PCP - General Family Medicine 06/20/21 documented as of this encounter
--- OUTSIDE RECORDS SUMMARY | 2023-09-10 00:49 | XMS_ITS | Encounter Summary ---
Author Organization [facility] Address [facility] [place] [address] Care Team Providers Care News Editor Name Role Phone Garth Marroquin DO Primary Care Provider [phone] Encounter Details Date Type Department Care Team (Late st Contact Info) Description 11/28/2020 Ancillary Procedure [place] [address] Mary Alice Nesbitt MD [facility] [place] [address] Social History Tobacco Use Types Packs/Day Years [...] Associated Diagnosis Comments FILM LIBRARY STORAGE ONLY DX CHEST Routine 11/28/2020 12:00 AM EDT documented in this encounter Results * Film Library- Storage Only DX Chest (11/28/2020 12:00 AM EDT) Narrative [facility] - 12/21/2020 4:12 PM EDT This exam is auto-finalizing. It's purpose is for storage only. Mary Alice Nesbitt MD IMG FILM LIBRARY ORD ERABLES [place], [place] documented in this encounter Visit Diagnoses Not on filedocumented in this encounter Care Teams News Editor Relationship Specialty Start Date End Date Garth Marroquin DO [address] [place] [address] PCP - General Family Medicine 03/02/20 06/19/21 documented as of this encounter
--- OUTSIDE RECORDS SUMMARY | 2023-09-10 00:49 | XMS_ITS | Encounter Summary ---
Author Organization [facility] Address [facility] [place] [address] Care Team Providers Care Heavy Equipment Service Technician Name Role Phone Judd Pizarro MD Primary Care Provider [phone] Encounter Details Date Type Department Care Team (Latest Contact Info) Description 07/04/2021 10:30 AM EDT TH Visit (TeleHealth) Weight and Wellness at [address] [address] [place] [address] Adult BMI 34.0-34.9 kg/sq m Social History [...] - Inhaled Oxygen Concentration - - Weight 96.2 kg (212 lb) 07/04/2021 9:00 AM EDT Height 165.9 cm (5' 5.32) 07/04/2021 9:00 AM ED T Body Mass Index 34.94 07/04/2021 9:00 AM EDT documented in this encounter Patient Instructions * Patient Instructions* Nolvia Saleh RD - 07/04/2021 10:52 AM EDT It was great to chat with you, Pavan . Below are goals discussed today as well as in past visits. Please reach out with a [employer] message if you have any questions or concerns. Nolvia Goals aim to eat 3 meals a day [...] documented in this encounter Progress Notes * oNlvia Saleh RD - 07/04/2021 10:30 AM EDT Nutrition Intervention for Weight Management Initial RD visit with GILSON Cadet 1965 Telehealth visit conducted while patient was at home at the following address: [address] [place] [address] Weight Today: 212 at the doctor the other day Wt Readings from Last 3 Encounters: 06/20/21 98.8 kg (217 lb 14.4 oz) 05/06/21 96.6 kg (213 lb) 03/22/21 98 kg (216 lb) BMI Readings from Last 3 Encounters: 06/20/21 35.91 kg/m?? 05/06/21 35.10 kg/m?? 03/22/21 34.86 kg/m?? Interview: Increased his Ozempic- has not been eating as much. not enough to feed a chipmunk. No real concerns, pleased that he's losing weight. Discussed importance of maintaining regular meals but continuing to avoid snacking and goals to further reduce sugar from drinks. See below Reviewed recent meals- protein is going well. Typical Dietary Intake: yesterday B: 2 eggs L: half a sandwich D: stroganoff at dinner- had about 5 bites S: none yesterday Lately very little snacking Typical Beverages: [x] coffee [x] half and half (unflavored) [x] water - (total: 4 bottles) [x] plain [] crystal light or other sugar-free additive [] [place] (natural or artificial flavoring or plain only) [] diet soda [] diet other drink [x] regular soda (1 yesterday - used to have a six-pack, thinks the ozempic is making an impact on this) [] juice [] milk Iced tea (honest green tea with honey - 37 grams of sugar x 2 a day) Appetite/Hunger: [x] feels managed with foods/meals outlined above [] discussed meal/snack schedule adjustment today- see goals [] patient identifies eating for reasons other than hunger- see interview above Food Tracking: [] Current food Tracking [x] Discussed potential benefit starting food tracking - see goals [] Food tracking not appropriate for patient at this time Patient Goals from Team: Goals ??? beverages Pepsi: Consider working down from [...] cottage cheese to your fruit ??? Nutrition Change to whole wheat toast or Mauritian Muffin at breakfast. Instead of 4 eggs , have 2 eggs and peanut butter on the Mauritian muffin. When looking for a whole grain bread: 5 grams or less of sugar, the first word in the ingredient's list Whole grain (oat, wheat) Continue using the regular creamer with half packet sweet n low, consider using less over time Other topics discussed: [] Eating an appropriate amount of food for your body [] Reduce highly processed foods, refined carbohydrates, in favor of whole foods [x] Reduce sweet taste in your diet (whether by sugar or non-nutritive sweeteners) [x] Increase fruits and non-starchy veggies [] Replace processed meat with other meat, fish, or, ideally, plant-based proteins (Good, Better,Best handout provided? [] ) [] Consider adding or increasing fermented foods [] Eat when hungry / planned eating event (Other eating behaviors: [] permission to eat [] distraction [] food environment) Barriers to Change: None identified at this time Nutrition Goals updated today: Goals Addressed This Visit's Progress ??? aim to eat 3 meals a day OK to avoid snacking TRY to eat 3 times in a day on a regular schedule- if you're not feeling very hungry, stop eating. ??? beverages On track Pepsi: Continue one can or less a [...] store-bought bottle (fill half with water) ??? COMPLETED: Consider not snacking before bed It's not that you can never have any cookies A few options to have LESS: - keep in the house less often or not at all - have immediately following dinner instead of before bed - have 1 instead of 2 - have twice a week instead of daily ??? consider writing down the foods you [...] or frozen berries) (Peanut butter and banana) ??? COMPLETED: Nutrition Change to whole wheat toast or Mauritian Muffin at breakfast. Instead of 4 eggs , have 2 eggs and peanut butter on the Mauritian muffin. When looking for a whole grain bread: 5 grams or less of sugar, the first word in the ingredient's list Whole grain (oat, wheat) Continue using the regular creamer with half packet sweet n low, consider using less over time Monitor/Evaluate: Return in about 2 months (around 09/03/2021) for RD, zoom with Ann Marie or any RD while I'm out. Aim for 5-10% weight loss from ABW x 3-6 months from initial visit Thank you Nolvia Saleh RD [facility] 30 minutes were spent in visit today, [...] adult documented in this encounter Care Teams Heavy Equipment Service Technician Relationship Specialty Start Date End Date Judd Pizarro MD [facility] [place] [phone] PCP - General Family Medicine 06/20/21 documented as of this encounter
--- OUTSIDE RECORDS SUMMARY | 2023-09-10 00:49 | XMS_ITS | Encounter Summary ---
Author Organization [facility] [place] [address] Care Team Providers Care Eeg Technologist Name Role Phone Garth Marroquin DO Primary Care Provider [phone] Encounter Details Date Type Department Care Team (Late st Contact Info) Description 12/27/2020 Telephone Weight and Wellness at [facility] [address] [place] [address] Emilie Galvan, RN Social History [...] Telephone Encounter - Emilie Galvan - 12/27/2020 12:52 PM EST LVM asking patient to return my call to discuss BP. * Telephone Encounter - Emilie Galvan - 12/27/2020 12:52 PM EST ----- Message from Tessie Robles [...] on filedocumented in this encounter Care Teams Eeg Technologist Relationship Specialty Start Date End Date Garth Marroquin DO [address] [place] [address] PCP - General Family Medicine 03/02/20 06/19/21 documented as of this encounter
--- OUTSIDE RECORDS SUMMARY | 2023-09-10 00:49 | XMS_ITS | Encounter Summary ---
Author Organization Formerly [facility] [place] [address] Care Team Providers Care Incinerator Operator Name Role Phone Judd Pizarro MD Primary Care Provider [phone] Reason for Visit * Reason Comments Hospital Transfer Back Pain Encounter Details Date Type Department Care Team (Late st Contact Info) Description 05/10/2022 4:32 PM EDT - 05/10/2022 10:25 PM EDT [place] [address] Ann Marie Newton MD [facility] [place] [address] Meir Sutherland MD [facility] [place] [address] Low back pain, non-specific Discharge Disposition: Home Social History Tobacco Use Types Packs/Day Years [...] (230 lb) 05/10/2022 4:37 PM EDT Height - - Body Mass Index 37.91 02/20/2022 3:58 PM EST documented in this encounter Discharge Instructions * Discharge Instructions* Danish Arana MD - 05/10/2022 8:05 PM EDT Evaluated in the ED for your back pain and incontinence of urine. Imaging of your lower back did not reveal any nerve impingement. Spinal surgery was also involved and base on our findings you are unlikely to have impingement of the cauda equina. We recommend starting on the steroids. Urine did not show any signs of infection. However we did find really mild amount of blood in it.You should follow-up with your PCP for your urinary incontinence and result. Please seek medical attention if your symptoms drastically or significantly changes or worsen. * Attachments The following attachments cannot be sent through Care Everywhere. * Back Pain (Icelandic) * Back: Preventing Injuries (Icelandic) documented in this encounter Medications at Time of Discharge Medication Sig Dispensed Refills Start Date End Date methylPREDNISolone (MEDROL DOSPACK) 4 mg Tablets, Dose Pack Use as directed on product package. 21 tablet 05/10/2022 metFORMIN XR (Glucophage XR) 500 mg Tablet Sustained Release 24 hr Take 500 mg by mouth 2 times daily. 01/29/2022 atorvastatin (Lipitor) 10 mg Tablet Take 10 mg by mouth daily. 02/17/2022 HYDROcodone-acetamino phen (Hensley) 5-325 mg Tablet TAKE 1 TABLET BY MOUTH UP TO EVERY 6 HOURS NEEDED FOR SEVERE PAIN OR POST OPERATIVE PAIN 12/04/2021 semaglutide (Ozempic) 1 mg/dose (4 mg/3 mL) Pen InjectorIndications:C lass 1 obesity due to excess calories with body mass index (BMI) of 34.0 to 34.9 in adult, unspecified whether serious comorbidity present Inject 1 mg subcutaneously once a week. 3 mL 01/10/2022 buPROPion SR (Wellbutrin SR) 150 mg tablet sustained-release 12 hr 05/27/2021 gemfibroziL (Lopid) 600 mg Tablet Take 600 mg by mouth daily. 05/14/2021 pantoprazole EC (Protonix) 40 mg Tablet, Delayed Release (E.C.) Take 40 mg by mouth daily. 05/23/2021 sucralfate (Carafate) 1 gram Tablet Take 1 g by mouth nightly. 05/23/2021 BLOOD SUGAR DIAGNOSTIC, DISC MISC by NOT APPLICABLE route. 020 lancets Misc by NOT APPLICABLE route. 08/29/2019 acetaminophen (Tylenol) 500 mg Tablet Take by mouth. 10/26/2017 albuteroL 90 mcg/actuation HFA Aerosol Inhaler Inhale into the lungs. 10/20/2019 empagliflozin (Jardiance) 10 mg Tablet Jardiance 10 mg tablet TAKE 1 TABLET BY MOUTH EVERY MORNING 06/28/2020 nitroGLYcerin (Nitrostat) 0.4 mg Tablet, Sublingual PLACE 1 TABLET UNDER THE TONGUE AND ALLOW TO DISSOLVE EVERY 5 MINUTES NEEDED FOR CHEST PAINS FOR 3 DOSES 09/21/2019 HYDROCHLOROTHIAZIDE ORAL Take by mouth Daily. traMADol (ULTRAM) 50 mg Tablet take 1 tablet by mouth every 6 hours 0 11/10/2017 cyclobenzaprine (FLEXERIL) 10 mg Tablet take 1 tablet by mouth three times a day for muscle spasm if needed for 7 days 0 12/29/2017 aspirin 81 mg Tablet, Delayed Release (E.C.) Take 1 tablet by mouth daily. 30 tablet 3 03/21/2017 lisinopril (PRINIVIL;ZESTRIL) 30 mg Tablet Take 1 tablet by mouth daily. 90 tablet 3 03/22/2017 omeprazole (PRILOSEC) 40 mg Capsule, Delayed Release(E.C.) Take 40 mg by mouth daily. 01/21/2017 cholecalciferol, Vitamin D3, 2,000 unit Tablet Take 1 tablet by mouth daily. 11/17/2016 documented as of this encounter ED Notes * Cici Koroma LPN - 05/10/2022 10:23 PM EDT AVS reviewed with pt at this time. Pt verbalized understanding and had no questions. IV removed. Ptambulatory upon discharge. * Danish Arana MD - 05/10/2022 6:20 PM EDT ED Resident Note HPI: Pavan Padilla is a 56 y.o. male with T2DM, HTN, tobacco use who presents to the Emergency Department for 3 week hx of back pain and urinary incontinence. 3-week history of lower lumbar back pain that radiates bilaterally to his flanks. He denies any recent trauma or worsening of symptoms. Patient had 2 distinct episodes of urinary incontinence: 1 on 05/09 and 1 on 05/10. Between the 2 episodes patient was able to urinate normally without any incontinence. Since episode on the morning of 05/10 patient has been able to use the restroom normally without any additional further episodes. Patient and his did report increase in urinary frequency in the past few days. Patient denies any fever chills, cough, shortness of breath, chest pain, diarrhea, dysuria, changes in gait, imbalance. Patient is able to ambulate well without use of cane or walk er at baseline and has not worsened. Patient has baseline peripheral neuropathy of his bilateral feet but denies worsening of symptoms. ROS as per HPI Vitals: ED Triage Vitals [05/10/22 1637] BP: (!) 148/123 Heart Rate: 78 Resp: 16 Temp: 37.7 ??C (99.9 ??F) Temp src: Oral SpO2: 99 % O2 Device: RA O2 Flow Rate (L/min): n/a Physical Exam Constitutional: General: He is not in acute distress. Appearance: Normal appearance. He is obese. He is not toxic-appearing. HENT: Head: Normocephalic and atraumatic. Cardiovascular: Rate and Rhythm: Normal rate and regular rhythm. Heart sounds: Normal heart sounds. No murmur heard. No friction rub. No gallop. Pulmonary: Effort: Pulmonary effort is normal. No respiratory distress. Breath sounds: Normal breath sounds. No stridor. No wheezing, rhonchi or rales. Abdominal: General: Bowel sounds are normal. Tenderness: There is no abdominal tenderness. Neurological: Mental Status: He is alert. Patient withdraws bilaterally on Babinski 2+ bilateral patellar reflexes MSK: No bruising, ecchymoses, erythema was noted of the back No tenderness to palpation of the lower lumbar back Full passive range of motion of the bilateral hips No hip instability pressure was found Negative De Santiago test Negative straight leg test ED Course: I have reviewed labs and imaging, images and available reports, and they are significant for: MRI Lumbar Spine wo Contrast (Generic) Final Result Mild degenerative changes described in detail at individual levels. No significant canal stenosis or foraminal narrowing. Findings described in detail at individual levels the body the report. Comment: The following findings are so common in people without low back pain that while we report their presence, they must be interpreted with caution and in context of the clinical situation (Reference- Vishnuvik Et Al, Spine 2001). Findings: (Prevalence in patients without low back pain), disc degeneration (decreased T2 signal, height loss, bulge) (91%), disc T2-signal loss (83%), disc height loss (56%), disc bulge (64%), disc protrusion (32%), annular fissure (38%). Thank you for letting us participate in the care of this patient. If you are a health care provider and have any questions regarding this report, please contact the number below. For patients who have questions please contact the health youth care specialist that requested your imaging first. Electronically signed by: Judd Moreno MD, [facility] ([phone]), at 05/10/2022 6:59 PM U/A: RBC 5 WBC: none Leukocyte negative Nitrite Negative Assessment and Plan: 56 y.o. male with T2DM, HTN, tobacco use who presents to the Emergency Department for cauda equina 3 week hx of back pain and urinary incontinence. Patient has a history of 3 weeks of lower lumbar pain with recent intermittent episodes of urinary incontinence. Examination was unrevealing for obvious neuro findings. MRI of his lumbar spine was also unremarkable for any neurological impingement. Spinal surgery was consulted. No acute surgical intervention was indicated and Cauda equina was ruled out. Patient did report recent urinary frequency. UA did not reveal UTI. However did reveal 5 RBC. Patient to follow-up with PCP regarding urinary incontinence and UA findings. #Lowe lumbar back pain #Urinary incontinence MRI of Lumbar Spine w/o contrast: No evidence of nerve impingement Spine Surgery consulted: Cauda equina ruled out Start Medrol Dosepak Follow-up with PCP regarding urinary incontinence and UA U/A: RBC 5 #Hypertension HCTZ 12.5 mg oral once Lisinopril 20 mg oral once The visit findings, diagnosis, and care plan were discussed with the patient. The diagnosis and care plans discussions were outlined in the discharge instructions. The patient expressed understanding of the details of the visit, the return precautions and that he should returnto the ER at any time for worsening symptoms, new symptoms, or other concerns. he agrees with the follow- up plan. Danish Arana MD Resident 05/10/[id number] Associated attestation - Ann Marie Newton MD - 05/10/2022 9:57 PM EDT ED ATTENDING ATTESTATION The patient was seen in conjunction with the resident physician. I have independently performed thekey portions of the history and physical exam. I have personally reviewed nursing notes, vital signs, and diagnostic studies including labs, imaging studies and EKGs. I have discussed the details of the case with the resident and agree with the assessment and plan as described in the resident's note, unless stated otherwise in my separate note. Did this case involve critical care? No * Ann Marie Newton MD - 05/10/2022 5:41 PM EDT Brief Attending Note I cared for the patient with the resident physician. Please see Dr. Arana's note, associated with the encounter, for more details. HPI: Pavan Padilla is a 56 y.o. who presents to the ED with lower back pain x 3 weeks, then he developed acute urinary incontinence last night. He was sent from [facility] for and MRI to rule out caude equina. He presented to the emergency department at [facility] with concerns of urinary incontinence He received Tylenol and Decadron at OSH prior to arrival. Patient had seen his primary care provider 2 to 3weeks prior for some lower back pain. PMH DM2, HTN, smoker, obesity. ED Course/MDM: Alert and oriented. VSS - but hypertensive on arrival. Neuro- Motor strength normal. No sensory changes. Reflexes normal. Spine service consulted. They requested MRI This shows mild degenerative changes. No significant canal stenosis or foraminal narrowing. Results for orders placed or performed during the hospital encounter of 05/10/22 MRI Lumbar Spine wo Contrast (Generic) (Exam End: 05/10/2022 6:26 PM) Impression Mild degenerative changes described in detail at individual levels. No significant canal stenosis or foraminal narrowing. Findings described in detail at individual levels the body the report. Comment: The following findings are so common in people without low back pain that while we report their presence, they must be interpreted with caution and in context of the clinical situation (Reference- Cherylek Et Al, Spine 2001). Findings: (Prevalence in patients without low back pain), disc degeneration (decreased T2 signal, height loss, bulge) (91%), disc T2-signal loss (83%), disc height loss (56%), disc bulge (64%), disc protrusion (32%), annular fissure (38%). Thank you for letting us participate in the care of this patient. If you are a health care provider and have any questions regarding this report, please contact the number below. For patients who have questions please contact the health youth care specialist that requested your imaging first. Electronically signed by: Judd Moreno MD, [facility] ([phone]), at 05/10/2022 6:59 PM Spine recommends medrol dose pack. Discharge home. F/u PCP. No surgical intervention indicated at this tie. Assessment/plan: Low back pain Urinary incontinence D/c home F/u PCP Rx Medrol dose pack Return precautions Ann Marie Newton MD 05/10/222034 * Garth Dalal RN - 05/10/2022 3:51 PM EDT Sending Facility: [facility] Reason for Transfer: rule out caudia equina Report: Patient is an alert and oriented 56-year-old male who presented to the emergency department at [facility] with concerns of urinary incontinence. Patient had seen his primary care provider 2 to 3 weeks prior for some lower back pain. Patient had no new trauma or injury to provoke this urinary incontinence. Patient is being transferred to [facility] emergency department for an MRI to rule out cauda equina. Patient is otherwise alert, oriented, pink warm and dry. Vital signs of been stable. 1 g of Tylenol and 10 mg of Decadron have been given Vital Signs: Pulse: B/P: Resp: SPO2: O2 LPM: GCS: BGL: Temp: STEMI ALERT: Has the EKG been transmitted? Yes/No STROKE ALERT: Last Known Well Time: [place] Stroke Scale: + / - FAST-ED Score: TRAUMA ALERT: T9 Alert Consult Lowest Documented BP Transporting Service: [facility] Time of Departure: ETA: 1620 documented in this encounter Miscellaneous Notes * Consult Note - Vee Heard MD - 05/10/2022 10:20 PM EDT Orthopaedic Spine Consult Note Attending: Dr. Dallas Renteria Bradleonardongoc is a 56 y.o. male who presents to see us in consultation today at the request of Ann Marie Newton MD for lower back pain and new urinary incontinence Chief Complaint: new urinary incontinence History of Present Illness: Pavan Padilla is a 56 y.o. male with DM and hypertension and 3 weeks of lower back pain that may have started when he was shoveling. He denies any trauma. He noted two episodes of urinary incontinence. One last night and one this morning. He has since been able to urinate normally and had a document PVR of <100. He notes the pain radiated to his flanks but not down his legs. Past Medical and Surgical History: Patient Active Problem List Diagnosis Code ??? Unstable angina I20.0 ??? Diabetes mellitus E11.9 ??? Essential hypertension I10 ??? Pulmonary nodule R91.1 ??? Cigar smoker F17.290 ??? Metabolic syndrome E88.81 ??? Class 2 obesity due to excess calories with body mass index (BMI) of 38.0 to 38.9 in adult E66.09, Z68.38 ??? NAFLD (nonalcoholic fatty liver disease) K76.0 No past medical history on file. No past surgical history on file. Home Medications: (Not in a hospital admission) Allergies: Allergies Allergen Reactions ??? Celecoxib Other reaction(s): Rash, urticaria ??? Naproxen Hives ??? Prednisone Nausea Only Current Medications: No current facility-administered medications on file prior to encounter. Current Outpatient Medications on File Prior to Encounter Medication Sig Dispense Refill ??? metFORMIN XR (Glucophage XR) 500 mg Tablet Sustained Release 24 hr Take 500 mg by mouth 2 timesdaily. ??? atorvastatin (Lipitor) 10 mg Tablet Take 10 mg by mouth daily. ??? HYDROcodone-acetaminophen (Hensley) 5-325 mg Tablet TAKE 1 TABLET BY MOUTH UP TO EVERY 6 HOURS ASNEEDED FOR SEVERE PAIN OR POST OPERATIVE PAIN ??? semaglutide (Ozempic) 1 mg/dose (4 mg/3 mL) Pen Injector Inject 1 mg subcutaneously once a week. 3 mL 0 ??? buPROPion SR (Wellbutrin SR) 150 mg tablet sustained-release 12 hr ??? gemfibroziL (Lopid) 600 mg Tablet Take 600 mg by mouth daily. ??? pantoprazole EC (Protonix) 40 mg Tablet, Delayed Release (E.C.) Take 40 mg by mouth daily. ??? sucralfate (Carafate) 1 gram Tablet Take 1 g by mouth nightly. ??? BLOOD SUGAR DIAGNOSTIC, DISC MISC by NOT APPLICABLE route. ??? lancets Misc by NOT APPLICABLE route. ??? acetaminophen (Tylenol) 500 mg Tablet Take by mouth. ??? albuteroL 90 mcg/actuation HFA Aerosol Inhaler Inhale into the lungs. ??? empagliflozin (Jardiance) 10 mg Tablet Jardiance 10 mg tablet TAKE 1 TABLET BY MOUTH EVERY MORNING ??? nitroGLYcerin (Nitrostat) 0.4 mg Tablet, Sublingual [...] by mouth daily. 90 tablet 3 ??? omeprazole (PRILOSEC) 40 mg Capsule, Delayed Release(E.C.) Take 40 mg by mouth daily. ??? cholecalciferol, Vitamin D3, 2,000 unit Tablet Take 1 tablet by mouth daily. Family History: Non-contributory Social History: Social History Socioeconomic History ??? Marital status: Spouse name: Not on file ??? Number of children: Not on file ??? Years of education: Not on file ??? Highest education level: Not on file Occupational History ??? Not on file Tobacco Use ??? Smoking status: Every Day Packs/day: 1.50 Years: 38.00 Pack years: 57.00 Types: Cigarettes ??? Smokeless tobacco: Never Vaping Use ??? Vaping Use: Never used Substance and Sexual Activity ??? Alcohol use: No Comment: Formerly heavy - stopped a few years ago. ??? Drug use: No ??? Sexual activity: Not on file Other Topics Concern ??? 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 jobs - hs to stop whenever feet start to hurt Social Determinants of Health Financial Resource Strain: Not on file Food Insecurity: Not on file Transportation Needs: Not on file Physical Activity: Not on file Housing Stability: Not on file Review of Systems: As per HPI, otherwise negative Objective: Temp: [37.7 ??C (99.9 ??F)] Heart Rate: [73-114] Resp: [16] BP: (124-148)/(65-123) SpO2: [94 %-99 %] Heart Rate from SpO2: [78 bpm-124 bpm] Gen: NAD, awake, alert, appropriate CV: RRR, no MGR Pulm: Non-labored breathing, lungs CTA Focused Spine Exam: Neck: Full ROM, no pain with flexion or extension. No cervical spine bony tenderness, crepitance, or stepoff. Back: Inspection of back is normal. No stepoff. No abrasons present. No eccyhmosis present. Nontender to palpation throughout spine Motor: Segment Muscle Action R L C5 Deltoid Shoulder Abd 5 5 C5 Biceps Elbow flexion 5 5 C6 ECRL, ECRB Wrist extension 5 5 C7 Triceps Elbow extension 5 5 C8 Hand Grasp 5 5 T1 Hand intrinsics Finger abd/adduction 5 5 L2 Iliopsoas Hip flexion 5 5 L3 Quadriceps Knee extension 5 5 L4,5 Hamstring Knee Flexion 5 5 L4 Tibialis anterior Dorsiflexion 5 5 L5 Extensor hallucis Great toe extension 5 5 S1 Gastrocnemius, FHL Plantar flexion 5 5 Sensory: (to light touch and pin prick) Segment location Right Left C4 top of AC joint 2 2 C5 lat side antecub fossa 2 2 C6 dorsal thumb 2 2 C7 dorsal middle finger 2 2 C8 dorsal small finger 2 2 T1 med side antecub fossa 2 2 T2 apex axilla 2 2 T3 3rd IS (intercostal space) 2 2 T4 nipple line 2 2 T5 5th IS 2 2 T6 6th IS 2 2 T7 7th IS 2 2 T8 8th IS 2 2 T9 9th IS 2 2 T10 10th iS 2 2 T11 11th iS 2 2 T12 mid inguinal ligament 2 2 L1 upper inner thigh 2 2 L2 mid-ant thigh 2 2 L3 med femoral condyle 2 2 L4 medial mal 2 2 L5 dorsum foot, 3rd MT 2 2 S1 lat heal 2 2 S2 Popliteal fossa 2 2 Reflexes: R L Biceps 2/4 2/4 Berry absent absent Patellar 2/4 2/4 Ankle jerk 2/4 2/4 Plantar Downgoing Downgoing Clonus absent absent Sacral Reflexes: Ext. Anal Sphincter: Passive Tone - intact Active squeeze - intact t Imaging: CT lumbar spine (05/10/22): No acute fracture or dislocation, mild spine bulges at L4-5, L5-S1 Lumbar MRI spine (05/10/22): Degenerative changes of spine with no significant canal stenosis or foraminal narrowing. Assessment/Plan: 56 y.o. male who presents with 2 episodes of urinary incontinence and 3 weeks of lower back pain. No concern for cauda equina given PVR<100, no saddle anesthesia and no neuro deficit as well as no stenosis on MRI. Recommend medrol dose pack for back pain and f/u with PCP for further treatment of back pain and urinary incontinence. - Activity: AAT -F/u PRN Vee Heard MD Orthopaedic Surgery, 7400 documented in this encounter Plan of Treatment [...] Procedure Name Priority Date/Time Associated Diagnosis Comments URINALYSIS MICROSCOPIC EXAM STAT 05/10/2022 9:12 PM EDT URINALYSIS WITH REFLEX CULTURE STAT 05/10/2022 9:12 PM EDT MRI LUMBAR SPINE WITHOUT CONTRAST STAT 05/10/2022 6:26 PM EDT documented in this encounter Results * (ABNORMAL) Urinalysis Microscopic Exam (05/10/2022 9:12 PM EDT) RBC UA 5(H) 0 - 3 /HPF [facility] WBC UA 0 0 - 3 /HPF [facility] Urine 05/10/2022 9:12 PM EDT 05/10/2022 9:16 PM EDT Narrative Resulting Agency Comment Spec In Lab Danish Arana MD URINE ORDERABLES [facility] [place] [address] * (ABNORMAL) Urinalysis with reflex Culture (05/10/2022 9:12 PM EDT) Glucose UA Negative Negative mg/dL [facility] Protein UA Negative Negative mg/dL [facility] Bilirubin UA Negative Negative mg/dL [facility] Comment: Clinical correlation required for positive Urine Bilirubin results as false positive may occur with some drugs and drug related products. If a false positive is suspected a serum total bilirubin should be considered if clinically indicated. Urobilinogen UA Normal Normal mg/dL [facility] pH UA 6.5 5.0 - 8.0 [facility] Blood UA Small(A) Negative mg/dL [facility] Ketones UA Negative Negative mg/dL [facility] Nitrite UA Negative Negative [facility] Leukocytes UA Negative Negative mcL [facility] Appearance UA Clear Clear [facility] Spec Hollister UA 1.013 1.005 - 1.030 [facility] Color UA Yellow Yellow [facility] Culture Reflexed No [facility] Urine 05/10/2022 9:12 PM EDT 05/10/2022 9:16 PM EDT Narrative Resulting Agency Comment Spec In Lab Ann Marie Newton MD URINE ORDERABLES [facility] [place] [address] * MRI Lumbar Spine wo Contrast (Generic) (05/10/2022 6:26 PM EDT) Anatomical Region Laterality Modality L-spine Magnetic Resonan ce Impressions 05/10/2022 6:59 PM EDT Mild degenerative changes described in detail at individual levels. No significant canal stenosis or foraminal narrowing. Findings described in detail at individual levels the body the report. Comment: The following findings are so common in people without low back pain that while we report their presence, they must be interpreted with caution and in context of the clinical situation (Reference- Cherylek Et Al, Spine 2001). Findings: (Prevalence in patients without low back pain), disc degeneration (decreased T2 signal, height loss, bulge) (91%), disc T2-signal loss (83%), disc height loss (56%), disc bulge (64%), disc protrusion (32%), annular fissure (38%). Thank you for letting us participate in the care of this patient. ??If you are a health care provider and have any questions regarding this report, please contact the number below. ??For patients who have questions please contact the health youth care specialist that requested your imaging first. ? Electronically signed by: Judd Moreno MD, [facility] ([phone]), at 05/10/2022 6:59 PM Narrative 05/10/2022 6:59 PM EDT EXAMINATION: MRI LUMBAR SPINE WO CONTRAST (GENERIC) CLINICAL HISTORY: Low back pain, cauda equina syndrome suspected Low back pain, cauda equina syndrome suspected TECHNIQUE: MRI of the lumbar spine performed without intravenous contrast administration. COMPARISON: CT lumbar spine dated 05/10/[address] [facility] FINDINGS: Normal alignment of the 5 lumbar type vertebral bodies. There is minimal retrolisthesis of L5 on S1 similar to CT examination. Vertebral bodies are normal in height. There is anterior endplate proliferative and reactive changes T11-12 and T12-L1 and to lesser extent L1-2. Disc space narrowing and decreased signal intensity on T2 sequence at T12-L1. The remaining intervertebral disc spaces are normal in height and signal. No aggressive marrow lesions. No pars defects. The conus demonstrates normal size shape and signal intensity and terminates appropriately at the caudal margin of L1. There is no abdominal aortic aneurysm. Findings at specific levels: T11-12: Normal L1-2: Minimal central disc protrusion without canal stenosis. No foraminal narrowing. L1-2: Normal L2-3: No disc protrusion central stenosis or foraminal narrowing. L3-4: There is a mild left foraminal and far lateral disc protrusion with mild left-sided foraminal narrowing caudally. No central canal stenosis central disc protrusion or right foraminal narrowing. L4-5: Mild annular bulge with no effacement of the thecal sac and no overall canal stenosis. There is mild caudal foraminal narrowing on the left due to superimposed mild disc protrusion foraminal and far lateral. L5-S1: There is a mild broad-based disc protrusion which does not efface the ventral thecal sac. No overall canal stenosis. There is facet arthropathy and disc space narrowing with mild bilateral foraminal narrowing.. Procedure Note Judd Moreno MD - 05/10/2022 EXAMINATION: MRI LUMBAR SPINE WO CONTRAST (GENERIC) CLINICAL HISTORY: Low back pain, cauda equina syndrome suspected Low back pain, cauda equina syndrome suspected TECHNIQUE: MRI of the lumbar spine performed without intravenous contrastadministration. COMPARISON: CT lumbar spine dated 05/10/[address] [facility] FINDINGS: Normal alignment of the 5 lumbar type vertebral bodies. There is minimal retrolisthesis of L5 on S1 similar to CT examination. Vertebral bodies are normal in height. There is anterior endplateproliferative and reactive changes T11-12 and T12-L1 and to lesser extent L1-2. Disc space narrowing and decreased signal intensity on T2 sequence [id number]. The remaining intervertebral disc spaces are normal in height andsignal. No aggressive marrow lesions. No pars defects. The conus demonstratesnormal size shape and signal intensity and terminates appropriately at thecaudal margin of L1. There is no abdominal aortic aneurysm. Findings at specific levels: T11-12: Normal L1-2: Minimal central disc protrusion without canal stenosis. Noforaminal narrowing. L1-2: Normal L2-3: No disc protrusion central stenosis or foraminal narrowing. L3-4: There is a mild left foraminal and far lateral disc protrusion withmild left-sided foraminal narrowing caudally. No central canal stenosis centraldisc protrusion or right foraminal narrowing. L4-5: Mild annular bulge with no effacement of the thecal sac and nooverall canal stenosis. There is mild caudal foraminal narrowing on the left dueto superimposed mild disc protrusion foraminal and far lateral. L5-S1: There is a mild broad-based disc protrusion which does not effacethe ventral thecal sac. No overall canal stenosis. There is facet arthropathyand disc space narrowing with mild bilateral foraminal narrowing.. IMPRESSION Mild degenerative changes described in detail at individual levels. No significant canal stenosis or foraminal narrowing. Findings described indetail at individual levels the body the report. Comment: The following findings are so common in people without low backpain that while we report their presence, they must be interpreted with cautionand in context of the clinical situation (Reference- Vishnuvik Et Al, [id number]). Findings: (Prevalence in patients without low back pain), discdegeneration (decreased T2 signal, height loss, bulge) (91%), disc T2-signal loss(83%), disc height loss (56%), disc bulge (64%), disc protrusion (32%), annularfissure (38%). Thank you for letting us participate in the care of this patient. If youare a health care provider and have any questions regarding this report,please contact the number below. For patients who have questions please contactthe health youth care specialist that requested your imaging first. Ann Marie Newton MD IM MRI ORDERABLES documented in this encounter Visit Diagnoses Diagnosis Low back pain, non-specific documented in this encounter Administered Medications Inactive Administered Medications - up to 3 most recent administrations Medication Order MAR Action Action Date Dose Rate Site hydroCHLOROthiazide (Hydrodiuril) tablet 12.5 mg 12.5 mg, Oral, ONCE, 1 dose, On 05/10/22 at 1756, Routine Given 05/10/2022 6:50 PM EDT 12.5 mg lisinopriL (Zestril) tablet 20 mg 20 mg, Oral, ONCE, 1 dose, On 05/10/22 at 1756, Routine Given 05/10/2022 6:50 PM EDT 20 mg documented in this encounter Active and Recently Administered Medications Times are shown in EDT. Scheduled Medication Order 05/08/2022 05/09/2022 05/10/2022 hydroCHLOROthiazide (Hydrodiuril) tablet 12.5 mg (COMPLETED) 12.5 mg, Oral, ONCE, 1 dose, On 05/10/22 at 1756, Routine 1850 (Given - Provid er: Reno Chand RN) lisinopriL (Zestril) tablet 20 mg (COMPLETED) 20 mg, Oral, ONCE, 1 dose, On 05/10/22 at 1756, Routine 1850 (Given - Provid er: Reno Chand RN) documented in this encounter Care Teams Incinerator Operator Relationship Specialty Start Date End Date Judd Pizarro MD [facility] [address] PCP - General Family Medicine 06/20/21 documented as of this encounter
--- OUTSIDE RECORDS SUMMARY | 2023-09-10 00:49 | XMS_ITS | Encounter Summary ---
Author Organization [facility] Address [facility] [place] [address] Care Team Providers Care Dental Floss Packer Name Role Phone Garth Marroquin DO Primary Care Provider [phone] Encounter Details Date Type Department Care Team (Late st Contact Info) Description 04/04/2021 Orders Only Weight and Wellness at [place] [address] [place] [id number] Tessie Robles MD [facility] [address] [place] [address] Obesity, unspecified classification, unspecified obesity type, unspecified whether serious comorbidity present Social History [...] as of this encounter Visit Diagnoses Diagnosis Obesity, unspecified classification, unspecified obesity type, unspecified whether serious comorbidity present documented in this encounter Care Teams Dental Floss Packer Relationship Specialty Start Date End Date Garth Marroquin DO [address] [place] [address] PCP - General Family Medicine 03/02/20 06/19/21 documented as of this encounter
--- OUTSIDE RECORDS SUMMARY | 2023-09-10 00:49 | XMS_ITS | Encounter Summary ---
Author Organization [facility] [place] [address] Care Team Providers Care Sole Trimmer Name Role Phone Garth Marroquin DO Primary Care Provider [phone] Encounter Details Date Type Department Care Team (Late st Contact Info) Description 04/30/2021 Telephone Weight and Wellness at [facility] [address] [place] [address] Emilie Galvan, RN Social History [...] * Telephone Encounter - Emilie Galvan - 04/30/2021 1:28 PM EDT LVM for patient for more information. Pt had left message stating he had a localized reaction afterOzempic injection. documented in this encounter Plan of Treatment [...] on filedocumented in this encounter Care Teams Sole Trimmer Relationship Specialty Start Date End Date Garth Marroquin DO [address] [place] [address] PCP - General Family Medicine 03/02/20 06/19/21 documented as of this encounter
--- OUTSIDE RECORDS SUMMARY | 2023-09-10 00:49 | XMS_ITS | Encounter Summary ---
Author Organization [facility] Address [facility] [place] [address] Care Team Providers Care Supervisor Boarding Name Role Phone Judd Pizarro MD Primary Care Provider [phone] Encounter Details Date Type Department Care Team (Latest Contact Info) Description 05/10/2022 Travel Social History Tobacco Use Types Packs/Day [...] on filedocumented in this encounter Care Teams Supervisor Boarding Relationship Specialty Start Date End Date Judd Pizarro MD [facility] [place] [phone] PCP - General Family Medicine 06/20/21 documented as of this encounter
--- OUTSIDE RECORDS SUMMARY | 2023-09-10 00:49 | XMS_ITS | Encounter Summary ---
Author Organization [facility] [place] [address] Care Team Providers Care Press Writer Name Role Phone Garth Marroquin DO Primary Care Provider [phone] Encounter Details Date Type Department Care Team (Late st Contact Info) Description 09/27/2020 Notes Only Weight and Wellness at [address] [id number] Elidia Mallory Social History Tobacco Use Types Packs/Day Years [...] on file documented as of this encounter Progress Notes * Elidia Mallory - 09/27/2020 11:23 AM EDT RESEARCH STUDY CONSENTING VISIT Visit Date: 09/27/20 PI/Designee: Dr. Leonidas Scott/Elidia Mallory [facility] [id number]: [facility] Biorepository VELOS: [id number] Pavanthuy Padilla consented via electronic consent to participate in the above-named protocol. Prior to giving informed consent, the subject had the opportunity to: ?? Read the consent form (or have it read to him/her) ?? Discuss the protocol participation with research (or designee) including: ?? Purpose of the study ?? Painful or uncomfortable procedures ?? Risks/benefits ?? Alternatives ?? Who to call with questions ?? Withdrawal rights ?? Ask questions; and ?? Consult with family or other physicians ?? The subject indicated his/her consent by signing and dating the Patient Informed Consent Form ?? Informed consent was conducted prior to any research-related procedures. ?? The subject was provided with a fully executed copy of the consent. documented in this encounter Plan of Treatment Not on file documented as of this encounter Visit Diagnoses Not on filedocumented in this encounter Care Teams Press Writer Relationship Specialty Start Date End Date Garth Marroquin DO [address] [place] [address] PCP - General Family Medicine 03/02/20 06/19/21 documented as of this encounter
--- OUTSIDE RECORDS SUMMARY | 2023-09-10 00:49 | XMS_ITS | Encounter Summary ---
Author Organization [facility] Address [facility] [place] [address] Care Team Providers Care Field Superintendent Name Role Phone Judd Pizarro MD Primary Care Provider [phone] Encounter Details Date Type Department Care Team (Late st Contact Info) Description 09/19/2021 Orders Only Weight and Wellness at [place] [address] [place] [phone] Tessie Robles MD [facility] [address] [place] [address] Obesity, unspecified classification, unspecified obesity type, unspecified [...] we talk documented as of this encounter Results * Biorepository Request (02/20/2022 5:47 PM EST) [facility] Biorepository Hold Sample in lab [facility] Blood 02/20/2022 5:47 PM EST 02/21/2022 11:01 AM EST Narrative Resulting Agency Comment Spec In Lab Tessie Robles MD [place] [address] documented in this encounter Visit Diagnoses Diagnosis Obesity, unspecified classification, unspecified obesity type, unspecified whether serious comorbidity present documented in this encounter Care Teams Field Superintendent Relationship Specialty Start Date End Date Judd Pizarro MD [address] [place] [address] PCP - General Family Medicine 06/20/21 documented as of this encounter
--- OUTSIDE RECORDS SUMMARY | 2023-09-10 00:49 | XMS_ITS | Encounter Summary ---
Author Organization [facility] Address [facility] [place] [address] Care Team Providers Care Physical Therapy Attendant Name Role Phone Judd Pizarro MD Primary Care Provider [phone] Reason for Visit * Reason Comments Follow-up Weight management Encounter Details Date Type Department Care Team ([facility] st Contact Info) Description 02/20/2022 4:30 PM EST Office Visit Weight and Wellness at [address] [phone] Tessie Robles MD [facility] [place] [address] Class 2 obesity with body mass index (BMI) of 38.0 to 38.9 in adult, unspecified obesity type, unspecified whether serious comorbidity present (Primary Dx); SOB (shortness of breath); Weight gain; Type 2 diabetes mellitus with diabetic neuropathy, without long-term current use of insulin; Obesity, unspecified classification, unspecified obesity type, unspecified [...] Sign Reading Time Taken Comments Blood Pressure 116/45 02/20/2022 3:58 PM EST Pulse 75 02/20/2022 3:58 PM EST Temperature - - Respiratory Rate - - Oxygen Saturation 98% 02/20/2022 3:58 PM EST Inhaled Oxygen Concentration - - Weight 106 kg (233 lb 11.2 oz) 02/20/2022 3:58 P M EST Height 165.9 cm (5' 5.32) 02/20/2022 3:58 PM ES T Body Mass Index 38.52 02/20/2022 3:58 PM EST documented in this encounter Progress Notes * Tessie Robles MD - 02/20/2022 4:30 PM EST [facility] [place] Patient Name: Pvaan Padilla Date of : 1965 Age: 56 y.o. Judd Pizarro MD Thank you for referring Pavan Padilla to the [facility]. I saw him for a follow-up visit today, 02/20/22. Please see changes to care as documented in the assessment and plan. CHIEF COMPLAINT: F/u for treatment of WHO Class 2 / EOSS Stage 3 Obesity defined by a BMI of Body mass index is 38.52 kg/m??. and comorbidities HTN, Smoker and Vitamin D deficiency. Sleep apnea-treated, Diabetes withneuropathy, Osteoarthritis. This is a Visit #4 [facility] visit for this 56 y.o. patient. Weight gain due to: less activity, weight gaining medications, increased intake and [facility] Bar[facility]: adentulous Initial visit: 09/27/20 Initial weight: 231# Initial BMI: 38.17 kg/m??. Goal weight: 165 10% loss: 210# Other goals: Improve diabetes Today's weight: 233 Change since prior: + 16# [facility] Team: Tessie Robles MD, Nolvia Saleh RD and Aguilar Lagunas, Health [employer] - all pending HPI Patient here today for f/u. Scheduled and cancelled last 3 appts with me. Last visit was in June 2021. Worried about sudden increase in weight. Weight started to increase prior to . Has not changed anything in terms of diet or activity. Continues to take Ozempic 1.0mg weekly. Says it feels like abdomen has gotten bigger and Breathing heavier since increasing weight. Denies abd pain, but feels like it is causing SOB as it pushes into thoracic cavity. Denies CP, jaw pain ornausea. Denies PND, using CPAP at night, but says it is harder to sleep. Denies LE edema. C/o increased upper GI gassiness. No swelling in legs, No chest pain. Some increased forgetulness Monitoring weight twice weekly. Does not recall weight prior to , but remembers a distinct turning point Saw PCP about one week ago. No labs done at that time. NO med adjustments. Planning for Feb 25 - hypnosis for smoking cessation. AOM review: Currently taking: semaglutide 1.0 mg for diabetes and weight loss - Not eating much 1-2 small meals per day, . NO GI side effects . Denies any increase in hunger since weight gain started. AOM HX: Semaglutide Started: 09/27/20 Starting weight: 231 - 5% weight loss met at 3 months, shailesh : 209 in Sep 2021 CO-MORBIDITIES Obesogenic meds: none HYPOTENSION - no dizziness, LH TYPE 2 DM Diagnosed 3-4 years ago. Complications: neuropathy Current medications: empagliflozin, metfromin 1000mg daily, semaglutide Prior Medications: glipizide Following with: PCP TOBACCO USE History: MANY YEARS, at about 2 ppd, had success with one brand of patch in the past, but when changed to a diff brand, cravings resumed. LIFESTYLE INTERVENTIONS (Topics discussed today in BOLD): Nutrition:Since seeing [...] weekly weights [x] Food log/ilda [] Other Pathway: Individual REVIEW OF SYSTEMS: see above HPI for pertinent +/- findings VITAL SIGNS: Vitals: 02/20/22 1558 BP: 116/45 Pulse: 75 SpO2: 98% Weight: 106 kg (233 lb 11.2 oz) Height: 165.9 cm (5' 5.32) Body mass index is 38.52 kg/m??. PHYSICAL EXAM: Gen: Alert and appropriate, breathing heavily coming into the room Neck: No JVD/HJR Chest: intermittent rhonchi and wheeze in RLQ, otherwise clear throughout lung [place] CV: RRR, no abnorm sounds Abd: protruberant, firm, no fluid wave, normal BS, no TTP, neg Kline's sign. Organomegaly not assessed d/t body habitus. Ext: No LE edema. LABS: Lab Results Component Value Date WBC 10.7 (H) 02/20/2022 RBC 5.71 (H) 02/20/2022 HGB 17.4 (H) 02/20/2022 HCT 50.7 (H) 02/20/2022 MCV 88.8 02/20/2022 MCH 30.5 02/20/2022 MCHC 34.3 02/20/2022 PLATELET 220 02/20/2022 RDWCV 12.8 02/20/2022 Lab Results Component Value Date NA 139 02/20/2022 K 4.3 02/20/2022 CL 105 02/20/2022 CO2 21 (L) 02/20/2022 BUN 16 02/20/2022 CREATININE 1.16 02/20/2022 GLUCOSE 134 02/20/2022 GLUCFASTING 87 04/17/2021 CALCIUM 9.4 02/20/2022 ESTGFR 73 02/20/2022 Lab Results Component Value Date ALT 26 02/20/2022 AST 14 02/20/2022 ALKPHOS 120 02/20/2022 BILITOT <0.2 (L) 02/20/2022 BILIDIR 0.1 09/27/2020 ALBUMIN 4.4 02/20/2022 PROT 6.9 02/20/2022 Liver Fibrosis Score (Fib 4) was 0.72 at 02/20/2022 7:53 PM Risk of Fibrosis Low Intermediate High NAFLD Less than 1.3 1.3-2.67 Greater than 2.67 Hepatitis C Less than 1.45 1.45-3.25 Greater than 3.25 Lab Results Component Value Date CHLPL 134 02/20/2022 HDL 25 02/20/2022 CHOLHDL 5.4 02/20/2022 TRIG 536 02/20/2022 LDLCHOL Not Calculated 02/20/2022 LDLDIRECT 52 02/20/2022 Lab Results Component Value Date HA1C 6.2 (H) 02/20/2022 HA1C 5.9 (H) 03/08/2021 HA1C 6.8 (A) 12/20/2020 Lab Results Component Value Date TSH 0.71 04/17/2021 Lab Results Component Value Date GLUCFASTING 87 04/17/2021 Lab Results Component Value Date FERRITIN 141 09/27/2020 Lab Results Component Value Date [id number] 423 09/27/2020 25-OH Vit D Total (ng/mL) Date Value Status 09/27/2020 41 Final ASSESSMENT AND PLAN Pavan Padilla was seen in follow up today for ongoing obesity, not yet at treatment goal [x] with improvement [] without change. Goals and treatment options were discussed. Continue medical management and lifestyle changes. FACTORS CONTRIBUTING TO OBESITY/INTERVENTION Obesogenic meds: [x]?none Co-morbidities to address: Type 2 DM Risk Stratification: [x]?evaluate liver - Fib 4 normal AOM: Continue semaglutide for DM and weight loss, Unclear etiology of weight gain. Weight gain at this stage without change in dietary habits or medication is unusual to this extent sherry given lack of hunger. Given risk factors, concern for cardiac concerns but nothing on exam to indicate HF nor sx consistent with ACS. Risk of liver dz/ascites -no evidence of this prior and no derm stigmata, LFTs normal. Hemoconcentration c/w chronic pulm dz. If no other findings to explain weight gain, could increase Ozempic, but continued weight gain would likely require PCP eval. Pavan was seen today for follow-up . Diagnoses and all orders for this visit: Class 2 obesity with body mass index (BMI) of 38.0 to 38.9 in adult, unspecified obesity type, unspecified whether serious comorbidity present - Comprehensive metabolic panel (non-fasting); Future - Hemoglobin A1c; Future - CBC (with Diff); Future - Lipid Panel (Reflex Direct LDL); Future - Lipid Panel (Reflex Direct LDL) - CBC (with Diff) - Hemoglobin A1c - Comprehensive metabolic panel (non-fasting) SOB (shortness of breath) - Comprehensive metabolic panel (non-fasting); Future - Hemoglobin A1c; Future - CBC (with Diff); Future - CBC (with Diff) - Hemoglobin A1c - Comprehensive metabolic panel (non-fasting) Weight gain Type 2 diabetes mellitus with diabetic neuropathy, without long-term current use of insulin - Hemoglobin A1c; Future - Lipid Panel (Reflex Direct LDL); Future - Lipid Panel (Reflex Direct LDL) - Hemoglobin A1c Obesity, unspecified classification, unspecified obesity type, unspecified whether serious comorbidity present - Biorepository Request Other orders - LDL Cholesterol, Direct Return in about 3 months (around 05/21/2022) for MD Robe or clinic. * Tessie Robles MD - 02/20/2022 4:30 PM EST Bob Browne, I reviewed your recent labwork. Everything looks normal. As discussed today, I don't thiink this is a simple problem of weight regain - not as long as you have been taking the Ozempic and maintainng your healthy diet. (If you had been off Ozempic for any period of time, we certainly would expect the weight to return, and it can happen quickly.) I sent a note to Dr. Pizarro today and asked him to please consider further evaluation for your shortness of breath and weight gain. Please let me know if you have any questions Dr. Robles documented in this encounter Plan of Treatment [...] Date/Time Associated Diagnosis Comments HC VENIPUNCTURE Routine 02/20/2022 5:47 PM EST Obesity, unspecified classification, unspecified obesity type, unspecified whether serious comorbidity present HEMOGRAM Routine 02/20/2022 5:47 PM EST Class 2 obesity with body mass index (BMI) of 38.0 to 38.9 in adult, unspecified obesity type, unspecified whether serious comorbidity present SOB (shortness of breath) DIFFERENTIAL, AUTOMATED Routine 02/20/2022 5:47 PM EST Class 2 obesity with body mass index (BMI) of 38.0 to 38.9 in adult, unspecified obesity type, unspecified whether serious comorbidity present SOB (shortness of breath) HC CBC,PLT & AUTO DIFF Routine 5:47 PM EST Class 2 obesity with body mass index (BMI) of 38.0 to 38.9 in adult, unspecified obesity type, unspecified whether serious comorbidity present SOB (shortness of breath) LDL CHOLESTEROL, DIRECT Routine 02/20/2022 5:47 PM EST HC HEMOGLOBIN A1C Routine 02/20/2022 5:4 7 PM EST Class 2 obesity with body mass index (BMI) of 38.0 to 38.9 in adult, unspecified obesity type, unspecified whether serious comorbidity present SOB (shortness of breath) Type 2 diabetes mellitus with diabetic neuropathy, without long-term current use of insulin LIPID PANEL (REFLEX DIRECT LDL) Routine 02/20/2022 5:47 PM EST Class 2 obesity with body mass index (BMI) of 38.0 to 38.9 in adult, unspecified obesity type, unspecified whether serious comorbidity present Type 2 diabetes mellitus with diabetic neuropathy, without long-term current use of insulin COMPREHENSIVE METABOLIC PANEL (NON-FASTING) Routine 02/20/2022 5:47 PM EST Class 2 obesity with body mass index (BMI) of 38.0 to 38.9 in adult, unspecified obesity type, unspecified whether serious comorbidity present SOB (shortness of breath) documented in this encounter Results * LDL Cholesterol, Direct (02/20/2022 5:47 PM EST) LDL Chol Direct 52 mg/dL [facility] Comment: Lowest Risk: <100 mg/dL Lower Risk: 100-129 mg/dL Borderline High Risk: 130-159 mg/dL High Risk: 160-189 mg/dL Very High Risk: >dp=361 mg/dL Blood 02/20/2022 5:47 PM EST 02/20/2022 6:00 PM EST Narrative Resulting Agency Comment Spec In Lab Tessie Robles MD CHEMISTRY ORDERABLES Performing Organization Address City/[facility]/ZIP Co de Phone Number [facility] [place] [address] * (ABNORMAL) Differential, Automated (02/20/2022 5:47 PM EST) Neutrophils % 52.2 % [facility] Neutr Abs (ANC) 5.61 1.70 - 6.10 x10(3)/ L [facility] Lymphocytes % 33.6 % [facility] Lymphocytes Abs 3.6(H) 0.9 - 3.2 x10(3)/[facility] Monocytes % 8.4 % [facility] Monocyte Abs 0.9 0.3 - 0.9 x10(3)/[facility] Eosinophils % 2.4 % [facility] Eosinophils Abs 0.3 0.0 - 0.4 x10(3)/[facility] Basophils % 1.3 % [facility] Basophils Abs 0.1 0.0 - 0.1 x10(3)/[facility] Immature Gran % 2.10 % [facility] Comment: Immature granulocytes(IG's)percentage and absolute count will include metamyelocytes, myelocytes, and promyelocytes. Blood smears from CBCs yielding IG's will be scanned manually for concordance. If this scan disagrees with the automated IG or if promyelocytes are noted, a manual differential will be performed. Chanelle Gran Abs 0.22(H) 0.00 - 0.04 x10(3)/ L [facility] Blood 02/20/2022 5:47 PM EST 02/20/2022 5:54 PM EST Narrative Resulting Agency Comment Spec In Lab Tessie Robles MD HEMATOLOGY ORDERABLE S Performing Organization Address [facility]/ZIP Co de Phone Number [facility] [place] [address] * (ABNORMAL) Hemogram (02/20/2022 5:47 PM EST) [facility] WBC 10.7(H) 4.0 - 9.5 x10(3)/[facility] RBC 5.71(H) 4.58 - 5.54 x10(6)/[facility] Hemoglobin 17.4(H) 13.7 - 16.5 g/dL [facility] Hematocrit 50.7(H) 40.5 - 48.5 % [facility] MCV 88.8 82.9 - 93.1 [facility] MCH 30.5 27.5 - 32.1 pg [facility] MCHC 34.3 32.0 - 35.7 g/dL [facility] Platelets 220 145 - 357 x10(3)/[facility] RDWSD 41.6 36.0 - 45.0 [facility] RDWCV 12.8 11.4 - 13.8 % [facility] MPV 10.7 7.6 - 12.9 [facility] nRBC % Auto 0.0 % [facility] nRBC Abs Auto 0.000 0.000 - 0.000 x10(3)/[facility] Blood 02/20/2022 5:47 PM EST 02/20/2022 5:54 PM EST Narrative Resulting Agency Comment Spec In Lab Tessie Robles MD HEMATOLOGY ORDERABLE S [facility] [place] [address] * Biorepository Request (02/20/2022 5:47 PM EST) Pathologist [facility] Biorepository Hold Sample in lab [facility] Blood 02/20/2022 5:47 PM EST 02/21/2022 11:01 AM EST Narrative Resulting Agency Comment Spec In Lab Tessie Robles MD CHEMISTRY ORDERABLES [facility] [place] [address] * Lipid Panel (Reflex Direct LDL) (02/20/2022 5:47 PM EST) Chol, Total 134 mg/dL [facility] Comment: Lower Risk: <200 mg/dL Average Risk: 200-239 mg/dL Higher Risk: >tk=850 mg/dL Triglycerides 536 mg/dL [facility] Comment: Average Risk/Lower Risk: <150 mg/dL Borderline High Risk: 150-199 mg/dL High Risk: 200-499 mg/dL Very High Risk: >oq=195 mg/dL HDL 25 mg/dL [facility] Comment: Males: ?? Higher Risk: <40 mg/dL Females: ?? Higher Risk: <50 mg/dL LDL Cholesterol Not Calculated [facility] Comment: Calculated LDL value is not valid for triglycerides greater than 400 mg/dl. Lowest Risk: <100 mg/dL Lower Risk: 100-129 mg/dL Borderline High Risk: 130-159 mg/dL High Risk: 160-189 mg/dL Very High Risk: >jh=530 mg/dL Chol/HDL Ratio 5.4 ratio [facility] Lipid Interpretation See Note [facility] Comment: Lipid management should be guided by a patient? s ASCVD risk, goals and preferences. ACC/AHA Guidelines recommend high intensity statin if clinical ASCVD or LDL greater than or equal to 190 mg/dL. http://Cista Systemurl.com/POP-HYX-Zmrwnpriz Adults aged 40-75 with LDL 70-189 mg/dL should have their 10 year ASCVD risk estimated with the ACC/AHA ASCVD risk senior mechanical estimator http://tools.acc.org/OKXQC-Klyk-Oocchtxcj/ Statin should be discussed if risk greater [...] critical component of ASCVD risk reduction. Blood 02/20/2022 5:47 PM EST 02/20/2022 5:54 PM EST Narrative Resulting Agency Comment Spec In Lab Tessie Robles MD CHEMISTRY ORDERABLES [facility] [place] [address] * (ABNORMAL) Hemoglobin A1c (02/20/2022 5:47 PM EST) Hemoglobin A1C 6.2(H) 4.3 - 5.6 % [facility] Comment: Reference Range: 4.3 - [...] Mellitus, Diabetes Care 2013; 36: Suppl. 1, S67-74 Est Avg Gluc 130 mg/dL [facility] Comment: eAG equivalents for HbA1c [...] into estimated average glucose values. ??Diabetes Care 2008:31(8):9812-4907. Blood 02/20/2022 5:47 PM EST 02/20/2022 5:54 PM EST Narrative Resulting Agency Comment Spec In Lab Tessie Robles MD CHEMISTRY ORDERABLES [facility] [place] [address] * (ABNORMAL) Comprehensive metabolic panel (non-fasting) (02/20/2022 5:47 PM EST) Glucose Lvl 134 65 - 199 mg/dL [facility] Comment:Diabetes: >=200 mg/d L plus symptoms BUN 16 10 - 20 mg/dL [facility] Creatinine 1.16 0.80 - 1.50 mg/dL [facility] Sodium 139 135 - 145 mmol/L [facility] Potassium 4.3 3.5 - 5.0 mmol/L [facility] Comment: Please note: ??Patients with WBC >100,000 may have falsely elevated Potassium levels. ??For accurate Potassium quantification in these patients send serum separator tube (gold top) for subsequent determinations. ??Contact the Clinical Chemistry Laboratory if there are any questions. Chloride 105 98 - 107 mmol/L [facility] CO2 21(L) 22 - 31 mmol/L [facility] Anion Gap 13 5 - 15 mmol/L [facility] Calcium 9.4 8.5 - 10.5 mg/dL [facility] Total Protein 6.9 6.1 - 8.0 g/dL [facility] Albumin 4.4 3.2 - 5.2 g/dL [facility] AST 14 0 - 39 unit/L [facility] ALT 26 0 - 55 unit/L [facility] Alk Phos 120 40 - 130 unit/L [facility] Total Bilirubin <0.2(L) 0.2 - 1.3 mg/dL [facility] Estimated GFR 73 >=60 mL/min/1. 73 m?? [facility] Comment: This patient's estimated GFR [...] In Lab Tessie Robles MD CHEMISTRY ORDERABLES [facility] [place] [address] documented in this encounter Visit Diagnoses Diagnosis Class 2 obesity with body mass index (BMI) of 38.0 to 38.9 in adult, unspecified obesity type, unspecified whether serious comorbidity present- Primary SOB (shortness of breath) Shortness of breath Weight gain Abnormal weight gain Type 2 diabetes mellitus with diabetic neuropathy, without long-term current use of insulin Obesity, unspecified classification, unspecified obesity type, unspecified whether serious comorbidity present documented in this encounter Care Teams Physical Therapy Attendant Relationship Specialty Start Date End Date Judd Pizarro MD [address] [place] [address] PCP - General Family Medicine 06/20/21 documented as of this encounter
--- OUTSIDE RECORDS SUMMARY | 2023-09-10 00:49 | XMS_ITS | Encounter Summary ---
Author Organization [facility] [place] [address] Care Team Providers Care Wrapper Opener Name Role Phone Garth Marroquin DO Primary Care Provider [phone] Encounter Details Date Type Department Care Team (Late st Contact Info) Description 12/21/2020 Telephone Weight and Wellness at [facility] [address] [place] [address] Martina Jerome CMA Social History Tobacco Use Types Packs/Day Years [...] Telephone Encounter - Martina Jerome CMA - 12/21/2020 2:34 PM EDT Called patients PCP office spoke with Ana REIS, read her the message from Dr. Robles below. She stated she would let the PCP know. Martina Jerome CMA * Telephone Encounter - Martina Jerome CMA - 12/21/2020 2:34 PM EDT ----- Message from Tessie Robles MD sent at 12/20/2020 7:02 PM EDT ----- Regarding: Please call PCP Will you update PCP that BP in office yesterday was 88/50, asymptomatic. He has lost about 10% of his weight and therefore may need less BP meds. I stopped amlodipine as of today, advised him to monitor BP at home. Would Dr. Marroquin f/u with patient for further management of BP meds? Thank you! Debbie documented in this encounter [...] on filedocumented in this encounter Care Teams Wrapper Opener Relationship Specialty Start Date End Date Garth Marroquin DO [address] [place] [address] PCP - General Family Medicine 03/02/20 06/19/21 documented as of this encounter
--- OUTSIDE RECORDS SUMMARY | 2023-09-10 00:49 | XMS_ITS | Encounter Summary ---
Author Organization [facility] [place] [address] Care Team Providers Care Bonding Supervisor Name Role Phone Garth Marroquin DO Primary Care Provider [phone] Encounter Details Date Type Department Care Team (Late st Contact Info) Description 11/08/2020 Telephone Weight and Wellness at [address] [address] Social History Tobacco Use Types Packs/Day Years [...] encounter Miscellaneous Notes * Telephone Encounter - Justyna Horan RD - 11/08/2020 10:02 AM EDT Unable to reach patient via provided telephone number for scheduled telephone nutrition appointment. Invalid number message received. Justyna Horan MS, RDN LD documented in this encounter Plan of Treatment [...] on filedocumented in this encounter Care Teams Bonding Supervisor Relationship Specialty Start Date End Date Garth Marroquin DO [address] [place] [address] PCP - General Family Medicine 03/02/20 06/19/21 documented as of this encounter
--- OUTSIDE RECORDS SUMMARY | 2023-09-10 00:49 | XMS_ITS | Encounter Summary ---
Author Organization [facility] [place] [address] Care Team Providers Care Nursery School Teacher Name Role Phone Garth Marroquin DO Primary Care Provider [phone] Encounter Details Date Type Department Care Team (Late st Contact Info) Description 11/21/2020 Ancillary Procedure [place] [id number] Garth Marroquin DO [address] [place], [place] [address] Social History Tobacco Use Types Packs/Day Years [...] Diagnosis Comments FILM LIBRARY STORAGE ONLY CT CHEST Routine 11/21/2020 12:00 AM EDT documented in this encounter Results * Film Library- Storage Only CT Chest (11/21/2020 12:00 AM EDT) Narrative [facility] - 12/24/2020 1:29 AM EST This exam is auto-finalizing. It's purpose is for storage only. Garth Marroquin DO [facility] FILM LIBRARY ORD ERABLES Performing Organization Address City/State/[facility] Co de Phone Number [place], [place] documented in this encounter Visit Diagnoses Not on filedocumented in this encounter Care Teams Nursery School Teacher Relationship Specialty Start Date End Date Garth Marroquin DO [address] [place] [address] PCP - General Family Medicine 03/02/20 06/19/21 documented as of this encounter
--- OUTSIDE RECORDS SUMMARY | 2023-09-10 00:50 | XMS_ITS | Encounter Summary ---
Author Organization [facility] [place] [address] Care Team Providers Care Electroplating Sales Representative Name Role Phone None Primary Care Provider Unavailabl e Reason for Referral * Diagnostic Test (Routine) - Closed Specialty Diagnoses / Procedures Referred By Edis grossman Referred To Contact Radiology Diagnoses Pulmonary nodule Procedures CT Chest wo Contrast (Generic) Amando Robins MD [facility] [place] [address] [facility] [place] [address] Referral ID Status Reason Start Date Expiration Date V isits Requested Visits Authorized [id number] Closed Specialty Service Requested 01/22/2018 01/22/2019 1 1 Encounter Details Date Type Department Care Team ([facility] st Contact Info) Description 01/22/2018 [place] [address] Amando Robins MD [facility] [place] [address] Social History Tobacco Use Types Packs/Day Years Used Date Smoking Tobacco: Every Day Cigarettes 3 38 Smokeless Tobacco: Never Alcohol Use Standard Drinks/Week Comments No 0 (1 standard drink = 0.6 oz pure alcohol) Formerly heavy - stopped a few years ago. Sex and Gender Information Value Date Recorded Sex Assigned at Not on file Gender Identity Not on file Sexual Orientation Not on file documented as of this encounter Miscellaneous Notes * Telephone Encounter - Amando Robins MD - 01/22/2018 11:18 AM EST Pulmonary/Critical-Care Telephone Encounter: I called the patient at home on 01/22/2018, 11:22 AM. Reviewed results of PET/CT which are reassuring. We discussed our options and are planning on moving forward with a low-dose, limited field of view CT chest in 6 months. If stable, he should have a LDCT screening exam yearly. His last cigarette was this past Thursday and he was applauded. All questions answered. 01/22/18 PET/CT: There is a non-FDG avid 14 mm patchy opacity in the medial right lung base (axial image 107), which is unchanged in size compared to 11/06/2017 but increased in size when compared to 05/29/2014 where it measured 10 mm in greatest dimension. Decreased size of the second patchy opacity in the medial right lung base (axial image 100), which now measures 9 mm compared to 20 mm on the 11/06/2017 study and was not present on 05/29/2014. Unchanged non-FDG avid right middle lobe streaky opacity, most consistent with scar. No lymphadenopathy. Specifically the right lower paratracheal lymph node (image 66), does not meet size criteria for pathologic enlargement, has a fatty hilum and has no abnormal FDG uptake. 1. No evidence of FDG avid malignancy or metastases. 2. Non-FDG avid 14 mm right lung base opacity which has increased in size compared to 05/29/2014. Differential includes focal inflammatory or infectious etiology, or low-grade neoplasm. Consider limited low-dose 6 month follow-up CT to document stability. 3. Decreased size of the second non-FDG avid right lung base opacity, favored to represent focal atelectasis or a resolving infectious or inflammatory process. 4. Hepatic steatosis. Amando Robins MD, 01/22/2018, 11:22 AM Pulmonary & Critical Care Pager: [phone] documented in this encounter Plan of Treatment Not on file documented as of this encounter Results * CT Chest wo Contrast (Generic) (11/22/2018 8:26 AM EDT) Anatomical Region Laterality Modality Chest Computed Tomogra phy Impressions 11/22/2018 9:47 AM EDT Previous basal right lower lobe opacity is now resolved, with residual linear scarring. Thank you for letting us participate in the care of this patient. For questions regarding this report, please contact the number below. ? Narrative 11/22/2018 9:47 AM EDT EXAMINATION: CT CHEST WO CONTRAST (GENERIC) CLINICAL [...] right unchanged. Skeletal structures: No new findings. Procedure Note Salud Beltran MD - 11/22/2018 EXAMINATION: CT CHEST WO CONTRAST (GENERIC) CLINICAL HISTORY: F/u of RLL nodule, enlarged since 2014, but stablesince 10/2017 and with reassuring 01/2018 PET/CT. TECHNIQUE: 3.0mm thick axial contiguous sections were obtained through thechest via helical acquisition without intravenous contrast administration. Thin-section reconstructions as well as coronal and sagittal reformattedimages were generated. COMPARISON: 01/22/2018 PET/CT. 11/06/[address] FINDINGS: Pulmonary parenchyma: At the site of prior paraspinal basal right lowerlobe patchy nodular opacity on 11/06/[address], which was still presentbut possibly smaller on 01/22/2018 PET/CT, is now resolved, except for smalllinear opacity in this region compatible with scarring. Focal scarring anteriorlyin the right lung is unchanged. No new pulmonary pathology identified. Airways: No endobronchial opacity. Pleura: No pleural effusion. Lymph nodes:Within limits of noncontrast technique, no thoraciclymphadenopathy. Heart, pericardium, and great vessels: No new findings. Other mediastinal structures: No new findings. Lower neck: No new findings. Upper abdomen: Exophytic right renal cyst unchanged. No new findings. Body wall soft tissues: Minimal gynecomastia on the right unchanged. Skeletal structures: No new findings. IMPRESSION Previous basal right lower lobe opacity is now resolved, with residuallinear scarring. Thank you for letting us participate in the care of this patient. Forquestions regarding this report, please contact the number below. Amando Robins MD IMG CT ORDERABLES documented in this encounter Visit Diagnoses Diagnosis Pulmonary nodule Solitary pulmonary nodule Pulmonary nodule Solitary pulmonary nodule documented in this encounter Care Teams Electroplating Sales Representative Relationship Specialty Start Date End Date None None PCP - General 01/22/18 03/01/20 documented as of this encounter
--- OUTSIDE RECORDS SUMMARY | 2023-09-10 00:50 | XMS_ITS | Encounter Summary ---
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 Garth Marroquin, DO [address] [place] [address] [facility] Card[facility] [address] [place] [id number] Referral ID Status Reason Start Date Expiration Date V isits Requested Visits Authorized [id number] Closed Consult, Test & Treat Connection Center 03/02/2017 03/02/2018 1 1 Encounter Details Date Type Department Care Team (Late st Contact Info) Description 04/16/2017 12:00 PM EST Office Visit Cardiology at [address] [address] Laverne Coon MD [facility] [place] [address] Unstable angina; Essential hypertension Social History Tobacco Use Types Packs/Day Years [...] Sign Reading Time Taken Comments Blood Pressure 124/54 04/16/2017 11:54 AM EST Pulse 80 04/16/2017 11:54 AM EST Temperature - - Respiratory Rate - - Oxygen Saturation 97% 04/16/2017 11:54 AM EST Inhaled Oxygen Concentration - - Weight 108 kg (238 lb) 04/16/2017 11:54 AM EST Height 170.2 cm (5' 7) 04/16/2017 11:54 AM EST Body Mass Index 37.28 04/16/2017 11:54 AM EST documented in this encounter Progress Notes * Laverne Coon MD - 04/16/2017 12:00 PM EST Images from the original note were not included. Reason for Visit: F/U after recent hospital discharge for chest pain Primary provider: Garth Marroquin DO [address] [place] [id number] ?? Problem List: 1: Type 2 DM 2: Arterial hypertension HPI: Pavan Padilla is a 51 y.o. male who presents for follow-up after recent hospital discharge for chest pain. Pavan was admitted to the hospital with chest pain and underwent cardiac catheterization. He was noted to have minimal epicardial coronary artery disease. It was felt that his symptoms may be due to coronary vasospasm and he was started on amlodipine prior to discharge. Since his discharge he reports that he feels well. He has had no recurrent chest pain, pressure, shortness of breath, dyspnea on exertion, palpitations or syncopal episodes. He is tolerating his medical therapy as prescribed. Unfortunately he has gone back to smoking which she is currently working on quitting. ALLERGIES: Allergies Allergen Reactions ??? Naproxen Hives ??? Prednisone Nausea Only ?? MEDICATIONS: ?? Current Outpatient Prescriptions: ??? amLODIPine (NORVASC) 2.5 mg Tablet, Take 1 tablet by mouth daily., Disp: 90 tablet, Rfl: 3 ??? lisinopril (PRINIVIL;ZESTRIL) 30 mg Tablet, Take 1 tablet by mouth daily., Disp: 90 tablet, Rfl: 3 ??? glipiZIDE (GLUCOTROL XL) 2.5 mg Tablet Extended Rel 24 hr, Take 2.5 mg by mouth daily., Disp: ,Rfl: ??? metFORMIN (FORTAMET) 1,000 mg Tablet Extended Rel 24 hr, Take 1,000 mg by mouth daily., Disp: ,Rfl: ??? omeprazole (PRILOSEC) 40 mg Capsule, Delayed Release(E.C.), Take 40 mg by mouth daily., Disp: ,Rfl: ??? PARoxetine (PAXIL) 20 mg Tablet, Take 20 mg by mouth daily., Disp: , Rfl: ??? cholecalciferol, Vitamin D3, 2,000 unit Tablet, Take 1 tablet by mouth daily., Disp: , Rfl: ??? atorvastatin (LIPITOR) 20 mg Tablet, Take 1 tablet by mouth daily., Disp: , Rfl: ??? aspirin 81 mg Tablet, Delayed Release (E.C.), Take 1 tablet by mouth daily., Disp: 30 tablet, Rfl: 3 ??? nicotine (NICODERM CQ) 21 mg/24 hr Patch 24 hr, Place 1 patch onto the skin daily for 30 days. (Patient not taking: Reported on 04/16/2017), Disp: 30 patch, Rfl: 0?? ROS: CONSTITUTIONAL: No weight loss, fever, chills, weakness or fatigue. ?? HEENT: Eyes: No visual loss, blurred vision, double vision or scleral iscterus. No sinus tendernessor palpable thyromegaly. SKIN: No rashes. ?? CARDIOVASCULAR: No chest pain, chest pressure or chest discomfort. No palpitations No edema. No orthopnea or PND. No syncope RESPIRATORY: No shortness of breath, cough or sputum. No hemoptysis GASTROINTESTINAL: No anorexia, nausea, vomiting or diarrhea. No abdominal pain. No BRBPR or melena ?? GENITOURINARY: No hematuria or dysuria NEUROLOGICAL: No headache, dizziness, syncope, paralysis, ataxia, numbness or tingling in the extremities. No change in bowel or bladder control. ?? MUSCULOSKELETAL: No muscle, back pain, joint pain or stiffness. ?? HEMATOLOGIC: No anemia, bleeding or bruising. ?? LYMPHATICS: No enlarged nodes. No history of splenectomy. ?? PSYCHIATRIC: No history of depression or anxiety. ?? ENDOCRINOLOGIC: No reports of sweating, cold or heat intolerance. No polyuria or polydipsia. ?? ALLERGIES: No history of asthma, hives, eczema or rhinitis. . PHYSICAL EXAM: Constitutional: In general, alert and oriented X 3 Vitals Office Visit from 04/16/2017 in Cardiology at [place] Weight 108 kg (238 lb) Height 170.2 cm (5' 7) BSA (Calculated - sq m) 2.26 sq meters BMI (Calculated) 37.27 Heart Rate 80 BP 124/54 SpO2 97 % Eyes: No scleral icterus or pale conjunctiva; no corneal arcus Ears, Nose, mouth, throat: No sinus tenderness; moist oral mucosa; no epistaxis; no visible thyromegaly Respiratory: Clear to auscultation bilaterally with good air entry bilaterally GI: No abdominal pain; + bowel sounds; no rigidity or guarding Cardiovascular: The heart rate is regular. S1 and S2 are normal and unobscured. There are no audible murmurs. Carotid upstroke is normal with no audible carotid bruits MSK: No joint deformity; No evidence of tendon xanthomas Skin: No visible rashes or bruises Neuro: Non-focal. Moves all extremities without limitation. CN nerves not examined. Psych: Mood appropriate Extremity: RLE: No LE edema LLE: No LE edema RUE: 2+ radial pulse LUE: 2+ radial pulse ?? DIAGNOSTIC TESTS: ?? 1: Echo (04/05) SUMMARY: ?? 1. Technically limited study. 2. The left ventricular chamber size is normal. Concentric left ventricular remodeling is observed. There is no evidence of LVOT obstruction. There is normal global left ventricular systolic function. The quantitative left ventricular ejection fraction by biplane Huizar's method is 65%. There are no left ventricular segmental wall motion abnormalities. 3. The left atrium is normal in size. 4. Right ventricular chamber size, wall thickness, and systolic function are within normal limits. 5. Pulmonary artery hypertension could not be assessed due to inadequate tricuspid regurgitation jet. 6. There is no hemodynamically significant valve disease. 2: Cath (03/20/17): Conclusions: * Normal coronary arteries ? Complications/Events: The patient had no complications during these procedures. ? Recommendations: Based upon the results of this procedure, it was recommended that the patient be managed with medical therapy. A/P: Pavan Padilla is a 51 y.o. male who presents for follow-up after recent hospital discharge for chest pain. 1: Recent episode of chest pain. Liban has not had any recurrent symptoms. He does fit the profile for coronary vasospasm given that he is male and a smoker. At this time we plan on continuing his current medical therapy. His blood pressure and heart rate are optimized. I have asked him to get more active and commit to some weight loss. In addition he understands the importance of smoking cessation. . He should be good to follow-up with his primary care provider unless he has recurrent symptoms. ?? Recommendations: 1: Continue current medical therapy 2: Follow-up with primary care provider Laverne Coon MD [facility] Interventional Cardiology Pager [phone] documented in this encounter Plan of Treatment Not on file documented as of this encounter Procedures Procedure Name Priority Date/Time Associated Diagnosis Comments EKG 12-LEAD Routine 04/16/2017 12:00 PM EST Unstable angina Essential hypertension documented in this encounter Results * EKG 12 Lead (04/16/2017 12:00 PM EST) Ventricular rate 80 BPM MUSE SYSTEM Atrial Rate 80 BPM MUSE SYSTEM P-R Interval 150 ms MUSE SYSTEM QRS Duration 88 ms MUSE SYSTEM Q-T Interval 390 ms MUSE SYSTEM QTC Calculated (Bezet) 449 ms MUSE SYSTEM Calculated P Wynot 25 degrees MUSE SYSTEM Calculated R Wynot 28 degrees MUSE SYSTEM Calculated T Wynot 24 degrees MUSE SYSTEM INTERPRETATION Normal sinus rhythm Normal ECG When compared with ECG of 20-MAR-2017 15:05, No significant change was found Confirmed by MD DELUNA SALVATORE ([id number]) on 04/16/2017 4:26:49 PM MUSE SYSTEM 04/16/2017 12:0 0 PM EST 04/16/2017 4:26 PM EST Laverne Coon MD ECG ORDERABLES MUSE SYSTEM documented in this encounter Visit Diagnoses Diagnosis Unstable angina Intermediate coronary syndrome Essential hypertension Unspecified essential hypertension documented in this encounter Care Teams Department Chairperson Relationship Specialty Start Date End Date Garth Berg MD [address] [place] [address] PCP - General General Internal Medicine 03/02/17 documented as of this encounter
--- OUTSIDE RECORDS SUMMARY | 2023-09-10 00:50 | XMS_ITS | Encounter Summary ---
[place] [address] Care Team Providers Care Product Support Sales Representative Name Role Phone Garth Berg MD Primary Care Provider [phone] [phone] Encounter Details Date Type Department Care Team (Late st Contact Info) Description 01/14/2018 Telephone [place] [phone] Judd Johnston II Social History Tobacco Use Types Packs/Day Years [...] encounter Miscellaneous Notes * Telephone Encounter - Judd Johnston II - 01/14/2018 11:10 AM EST Attempted to reach Pavan x 2 to schedule him for his PFT testing prior to his NPW consult on tomorrow. No answer and no vm option. documented in this encounter Plan of Treatment Not on file documented as of this encounter Visit Diagnoses Not on filedocumented in this encounter Care Teams Product Support Sales Representative Relationship Specialty Start Date End Date Garth Berg MD [address] [place], [place] [id number] PCP - General General Internal Medicine 03/02/17 documented as of this encounter
--- OUTSIDE RECORDS SUMMARY | 2023-09-10 00:50 | XMS_ITS | Encounter Summary ---
[place] [address] Care Team Providers Care Maintenance Mechanic Helper Name Role Phone Garth Berg MD Primary Care Provider [phone] Encounter Details Date Type Department Care Team (Latest Contact Info) Description 11/06/2017 - 11/06/2017 11:59 PM EDT Hospital Encounter [place] [address] Garth Marroquin, DO [address] [place], [place] [id number] Discharge Disposition: Home Social History Tobacco Use [...] Sig Dispensed Refills Start Date End Date acetaminophen (Tylenol) 500 mg Tablet Take by mouth. 10/26/2017 aspirin 81 mg Tablet, Delayed Release (E.C.) Take 1 tablet by mouth daily. 30 tablet 3 03/21/2017 lisinopril (PRINIVIL;ZESTRIL) 30 mg Tablet Take 1 tablet by mouth daily. 90 tablet 3 03/22/2017 omeprazole (PRILOSEC) 40 mg Capsule, Delayed Release(E.C.) Take 40 mg by mouth daily. 01/21/2017 cholecalciferol, Vitamin D3, 2,000 unit Tablet Take 1 tablet by mouth daily. 11/17/2016 nicotine (NICOTROL) 10 mg Cartridge Inhale into the lungs. 11/02/2017 09/27/2020 amLODIPine (NORVASC) 2.5 mg Tablet Take 1 tablet by mouth daily. 90 tablet 3 03/21/2017 12/20/2020 glipiZIDE (GLUCOTROL XL) 2.5 mg Tablet Extended Rel 24 hr Take 2.5 mg by mouth daily. 10/13/2016 09/27/2020 metFORMIN (FORTAMET) 1,000 mg Tablet Extended Rel 24 hr Take 1,000 mg by mouth daily. 03/19/2017 02/20/2022 PARoxetine (PAXIL) 20 mg Tablet Take 20 mg by mouth daily. 02/20/2017 09/27/2020 atorvastatin (LIPITOR) 20 mg Tablet Take 1 tablet by mouth daily. 02/21/2017 09/27/2020 documented as of this encounter Plan of Treatment Not on file documented as of this encounter Procedures Procedure Name Priority Date/Time Associated Diagnosis Comments FILM LIBRARY STORAGE ONLY CT CHEST Routine 11/06/2017 12:00 AM EDT documented in this encounter Results * Film Library- Storage Only CT Chest (11/06/2017 12:00 AM EDT) Narrative [facility] - 12/21/2017 10:06 AM EST This exam is for storage only and is auto-finalizing. Garth Marroquin DO [place] FILM LIBRARY ORD ERABLES [place], [place] documented in this encounter Visit Diagnoses Not on filedocumented in this encounter Care Teams Maintenance Mechanic Helper Relationship Specialty Start Date End Date Garth Berg MD [address] [place] [address] PCP - General General Internal Medicine 03/02/17 documented as of this encounter
--- OUTSIDE RECORDS SUMMARY | 2023-09-10 00:50 | XMS_ITS | Encounter Summary ---
Author Organization [facility] [place] [address] Care Team Providers Care Vessel Scrapper Name Role Phone None Primary Care Provider Unavailabl e Encounter Details Date Type Department Care Team (Late st Contact Info) Description 10/04/2019 [place] [phone] Corinne Frausto Social History Tobacco Use Types Packs/Day Years [...] on filedocumented in this encounter Care Teams Vessel Scrapper Relationship Specialty Start Date End Date None None PCP - General 01/22/18 03/01/20 documented as of this encounter
--- OUTSIDE RECORDS SUMMARY | 2023-09-10 00:50 | XMS_ITS | Encounter Summary ---
Author Organization [facility] [place] [address] Care Team Providers Care Critical Care Physician Assistant Name Role Phone None Primary Care Provider Unavailabl e Encounter Details Date Type Department Care Team (Late st Contact Info) Description 09/06/2019 Tele[place] [phone] Corinne Frausto Social History Tobacco Use Types [...] on filedocumented in this encounter Care Teams Critical Care Physician Assistant Relationship Specialty Start Date End Date None None PCP - General 01/22/18 03/01/20 documented as of this encounter
--- OUTSIDE RECORDS SUMMARY | 2023-09-10 00:50 | XMS_ITS | Encounter Summary ---
Author Organization [facility] Address [facility] [place] [address] Care Team Providers Care Scalp Treatment Operator Name Role Phone Garth Berg MD Primary Care Provider [phone] [phone] Encounter Details Date Type Department Care Team (Latest Contact Info) Description 01/09/2018 - 01/09/2018 11:59 PM EST Hospital Encounter [place] [address] [facility] [place] [address] Discharge Disposition: Home Social History Tobacco Use [...] 500 mg Tablet Take by mouth. 10/26/2017 traMADol (ULTRAM) 50 mg Tablet take 1 [...] Take 1 tablet by mouth daily. 11/17/2016 levoFLOXacin (LEVAQUIN) 750 mg Tablet take 1 tablet by mouth daily 0 12/16/2017 09/24/2020 nicotine (NICOTROL) 10 mg Cartridge Inhale into the lungs. 11/02/2017 09/27/2020 nicotine (NICODERM CQ) 21 mg/24 hr Patch 24 hr APPLY 1 PATCH TOPICALLY DAILY 0 11/23/2017 02/20/2022 amLODIPine (NORVASC) 2.5 mg Tablet Take 1 [...] Diagnosis Comments FILM LIBRARY STORAGE ONLY CT ABDOMEN AND PELVIS Routine 01/09/2018 12:00 AM EST documented in this encounter Results * Film Library- Storage Only CT Abdomen & Pelvis (01/09/2018 12:00 AM EST) Narrative [facility] - 01/14/2018 11:49 AM EST This exam is for storage only and is auto-finalizing. Amando SOLIS FILM LIBRARY ORD ERABLES [place], [place] documented in this encounter Visit Diagnoses Not on filedocumented in this encounter Care Teams Scalp Treatment Operator Relationship Specialty Start Date End Date Garth Berg MD [address] [place] [address] PCP - General General Internal Medicine 03/02/17 documented as of this encounter
--- OUTSIDE RECORDS SUMMARY | 2023-09-10 00:50 | XMS_ITS | Encounter Summary ---
Author Organization [facility] [place] [id number] Care Team Providers Care Retail Sales Merchandiser Development Name Role Phone None Primary Care Provider Unavailabl e Reason for Referral * Diagnostic Test (Routine) - Specialty Diagnoses / Procedures Referred By Contac t Referred To Contact Radiology Diagnoses Pulmonary nodule Procedures CT Chest Screening Lung Cancer Ector Garcia MD [facility] [place] [address] [facility] [place] [address] Referral ID Status Reason Start Date Expiration Date Visits Requested Visits Authorized [id number] Specialty Service Requested 11/22/2018 11/22/2019 1 1 Reason for Visit * Diagnostic Test (Routine) - Specialty Diagnoses / Procedures Referred By Contac t Referred To Contact Radiology Diagnoses Pulmonary nodule Procedures CT Chest Screening Lung Cancer Ector Garcia MD [facility] [place] [address] [facility] [place] [address] Referral ID Status Reason Start Date Expiration Date Visits Requested Visits Authorized [id number] Specialty Service Requested 11/22/2018 11/22/2019 1 1 Encounter Details Date Type Department Care Team (Latest Contact Info) Description 12/23/2019 8:53 AM EST - 12/23/2019 11:59 PM EST Hospital Encounter CT Scan at [facility] [place] [address] Ector Garcia MD [facility] [place] [address] Pulmonary nodule Discharge Disposition: Home Social History Tobacco Use [...] Sig Dispensed Refills Start Date End Date BLOOD SUGAR DIAGNOSTIC, DISC MISC by NOT APPLICABLE route. 08/29/2019 lancets Misc by NOT APPLICABLE route. 08/29/2019 acetaminophen (Tylenol) 500 mg Tablet Take by mouth. 10/26/2017 albuteroL 90 mcg/actuation HFA Aerosol Inhaler Inhale into the lungs. 10/20/2019 nitroGLYcerin (Nitrostat) 0.4 mg Tablet, Sublingual PLACE [...] Take 1 tablet by mouth daily. 11/17/2016 atorvastatin (Lipitor) 20 mg Tablet Take by mouth. 11/04/2018 02/20/2022 levoFLOXacin (LEVAQUIN) 750 mg Tablet take 1 [...] Procedure Name Priority Date/Time Associated Diagnosis Comments CT CHEST SCREENING LUNG CANCER Routine 12/23/2019 9:06 AM EST Pulmonary nodule documented in this encounter Results * CT Chest Screening Lung Cancer (12/23/2019 9:06 AM EST) Anatomical Region Laterality Modality Computed Tomogra phy Impressions 12/26/2019 6:44 PM EST Lung-RADS 1 (Negative) RECOMMENDATION: Return to CT screening in one year Thank you for letting us participate in the care of this patient. For questions regarding this report, please contact the number below. ? Electronically signed by: Salud Beltran MD, [facility] ([phone]), at 12/26/2019 6:44 PM Narrative 12/26/2019 6:44 PM EST EXAMINATION: CT CHEST SCREENING LUNG CANCER CLINICAL HISTORY: Lung Cancer Screening Asymptomatic but at high risk for lung cancer TECHNIQUE: Noncontrast, low-dose chest CT [place] [facility] [place]. COMPARISON: 11/22/[address] FINDINGS: Lung-RADS Lung screening specific: None Potentially significant incidental findings: None Other incidental findings: Very small subpleural paraseptal emphysematous changes or blebs posteromedially in the right upper lobe, curvilinear scarring in the anterior-inferior right upper lobe, and minimal focal linear scarring in the paraspinal right lung base, unchanged. Unchanged minimal gynecomastia on the right. Exophytic right renal cysts, as before. Procedure Note Salud Beltran MD - 12/26/2019 EXAMINATION: CT CHEST SCREENING LUNG CANCER CLINICAL HISTORY: Lung Cancer Screening Asymptomatic but at high risk for lung cancer TECHNIQUE: Noncontrast, low-dose chest CT ([place]) [place] [facility] [place]. COMPARISON: 11/22/[address] FINDINGS: Lung-RADS Lung screening specific: None Potentially significant incidental findings: None Other incidental findings: Very small subpleural paraseptalemphysematous changes or blebs posteromedially in the right upper lobe, curvilinearscarring in the anterior-inferior right upper lobe, and minimal focal linearscarring in the paraspinal right lung base, unchanged. Unchanged minimal gynecomastiaon the right. Exophytic right renal cysts, as before. IMPRESSION Lung-RADS 1 (Negative) RECOMMENDATION: Return to CT screening in one year Thank you for letting us participate in the care of this patient. Forquestions regarding this report, please contact the number below. Electronically signed by: Salud Beltran MD, [facility]([phone]), at 12/26/2019 6:44 PM Ector Garcia MD IMG CT ORDERABLES documented in this encounter Visit Diagnoses Diagnosis Pulmonary nodule Solitary pulmonary nodule documented in this encounter Care Teams Retail Sales Merchandiser Development Relationship Specialty Start Date End Date None None PCP - General 01/22/18 03/01/20 documented as of this encounter
--- OUTSIDE RECORDS SUMMARY | 2023-09-10 00:50 | XMS_ITS | Encounter Summary ---
Author Organization [facility] [address] Care Team Providers Care Assembler Carbon Brushes Name Role Phone None Primary Care Provider Unavailabl e Encounter Details Date Type Department Care Team (Late st Contact Info) Description 11/15/2019 [place] [phone] Eva Morin, [employer] Social History Tobacco Use Types Packs/Day Years [...] encounter Miscellaneous Notes * Telephone Encounter - Eva Morin - 11/15/2019 2:50 PM EDT 5C Systems Administrator Pre-Telemedicine Phone Note [] Patient not reached [x] Patient reached and the following information was reviewed/obtained per protocol: [x] Confirmed patient name and date of [x] Confirmed location of patient - TeleVisit is taking place in [x] [place] [] [place] [] [place] [] [place] [] Confirmed Pt has MyDH [] If not on myDH, working on signing up for myDH [] If no MyDH is made, how is Dr sending Pt the zoom link for video [] By Cell phone [] By E-mail [] If Pt is a phone visit how is Dr contacting Pt [] Home phone [] Cell phone [] Other number [x] Reviewed patient medications ??? nitroGLYcerin (Nitrostat) 0.4 mg Tablet, Sublingual ??? HYDROCHLOROTHIAZIDE ORAL ??? levoFLOXacin (LEVAQUIN) 750 mg Tablet ??? cyclobenzaprine (FLEXERIL) 10 mg Tablet ??? nicotine (NICOTROL) 10 mg Cartridge ??? nicotine (NICODERM CQ) 21 mg/24 hr Patch 24 hr ??? amLODIPine (NORVASC) 2.5 mg Tablet ??? aspirin 81 mg Tablet, Delayed Release (E.C.) ??? lisinopril (PRINIVIL;ZESTRIL) 30 mg Tablet ??? glipiZIDE (GLUCOTROL XL) 2.5 mg Tablet Extended Rel 24 hr ??? metFORMIN (FORTAMET) 1,000 mg Tablet Extended Rel 24 hr ??? omeprazole (PRILOSEC) 40 mg Capsule, Delayed Release(E.C.) ??? PARoxetine (PAXIL) 20 mg Tablet ??? cholecalciferol, Vitamin D3, 2,000 unit Tablet ??? atorvastatin (LIPITOR) 20 mg Tablet ??? traMADol (ULTRAM) 50 mg Tablet - Needs refill [x] Documented self-reported vitals: [x] Weight:235 lbs [x] Height:5 ft 6 in [] Other information or concerns documented in this encounter Plan of Treatment Not on file documented as of this encounter Visit Diagnoses Not on filedocumented in this encounter Care Teams Assembler Carbon Brushes Relationship Specialty Start Date End Date None None PCP - General 01/22/18 03/01/20 documented as of this encounter
--- OUTSIDE RECORDS SUMMARY | 2023-09-10 00:50 | XMS_ITS | Encounter Summary ---
Author Organization [facility] [place] [address] Care Team Providers Care Supervisor Agency Appointments Name Role Phone Unknown Primary Care Provider Unavailabl e Encounter Details Date Type Department Care Team (Late st Contact Info) Description 01/15/2018 Tele[place] [phone] Gisela Escamilla Social History Tobacco Use Types Packs/Day Years [...] encounter Miscellaneous Notes * Telephone Encounter - Gisela Escamilla - 01/15/2018 8:21 AM EST S/w radiology scheduling patient scheduled for pet scan 01/25 7:30am check in at [facility]. Prep: only water after midnight. MD updated documented in this encounter Plan of Treatment Not on file documented as of this encounter Visit Diagnoses Not on filedocumented in this encounter Care Teams Supervisor Agency Appointments Relationship Specialty Start Date End Date Unknown None PCP - General 01/15/18 01/21/18 documented as of this encounter
--- OUTSIDE RECORDS SUMMARY | 2023-09-10 00:50 | XMS_ITS | Encounter Summary ---
Author Organization [facility] [place] [address] Care Team Providers Care Lead Tinner Name Role Phone None Primary Care Provider Unavailabl e Reason for Referral * Diagnostic Test (Routine) - Specialty Diagnoses / Procedures Referred By Edis grossman Referred To Contact Radiology Diagnoses Pulmonary nodule Procedures CT Chest Screening Lung Cancer Ector Garcia MD [facility] [place] [address] [facility] [place] [address] Referral ID Status Reason Start Date Expiration Date Visits Requested Visits Authorized [id number] Specialty Service Requested 11/22/2018 11/22/2019 1 1 Reason for Visit * Reason Comments Follow-up Encounter Details Date Type Department Care Team ([facility] st Contact Info) Description 11/22/2018 10:00 AM EDT Office [place] [phone] Ector Garcia MD [facility] [place] [address] Pulmonary nodule Social History Tobacco Use Types Packs/Day Years [...] Sign Reading Time Taken Comments Blood Pressure 111/42 11/22/2018 10:03 AM EDT Ri ght arm Pulse 60 11/22/2018 9:51 AM EDT Temperature - - Respiratory Rate 20 11/22/2018 9:51 AM EDT Oxygen Saturation 99% 11/22/2018 9:51 AM EDT Inhaled Oxygen Concentration - - Weight 113.4 kg (250 lb) 11/22/2018 9:51 AM EDT Height 167.6 cm (5' 6) 11/22/2018 9:51 AM EDT Body Mass Index 40.35 11/22/2018 9:51 AM EDT documented in this encounter Progress Notes * Ector Garcia MD - 11/22/2018 10:00 AM EDT [facility] Section of Pulmonary Medicine Outpatient Progress Note Date of Encounter: 11/22/2018 Referring Provider: No referring provider defined for this encounter. PCP: None I have personally interviewed and examined the patient. I have independently viewed his radiographic studies, pulmonary function testing and laboratory data. Background: Patient is a 53 yo man, active smoker who was initially referred for evaluation of RLL pulmonary nodule. He was seen by Dr. Draper. The initial plan was to obtain a PET scan and PFT's. He is s/p a PETscan on 01/22/18 which did not show any FDG activity. He is now s/p CT of chest on 11/22/18 which nowshows resolution of the RLL nodular density. Current Symptoms: His symptoms are unchanged. He still smokes. Review of Systems: A total of 10 systems were reviewed and were negative other than as listed below: Medications: Current Outpatient Medications Medication Sig Dispense Refill ??? HYDROCHLOROTHIAZIDE ORAL Take by mouth Daily. ??? traMADol (ULTRAM) 50 mg Tablet take 1 tablet by mouth every 6 hours 0 ??? levoFLOXacin (LEVAQUIN) 750 mg Tablet take 1 tablet by mouth daily 0 ??? cyclobenzaprine (FLEXERIL) 10 mg Tablet take 1 tablet by mouth three times a day for muscle spasm if needed for 7 days 0 ??? nicotine (NICOTROL) 10 mg Cartridge Inhale into the lungs. ??? amLODIPine (NORVASC) 2.5 mg Tablet Take 1 tablet by mouth daily. 90 tablet 3 ??? aspirin 81 mg Tablet, Delayed Release (E.C.) Take 1 tablet by mouth daily. 30 tablet 3 ??? lisinopril (PRINIVIL;ZESTRIL) 30 mg Tablet Take 1 tablet by mouth daily. 90 tablet 3 ??? glipiZIDE (GLUCOTROL XL) 2.5 mg Tablet Extended Rel 24 hr Take 2.5 mg by mouth daily. ??? metFORMIN (FORTAMET) 1,000 mg Tablet Extended Rel 24 hr Take 1,000 mg by mouth daily. ??? omeprazole (PRILOSEC) 40 mg Capsule, Delayed Release(E.C.) Take 40 mg by mouth daily. ??? PARoxetine (PAXIL) 20 mg Tablet Take 20 mg by mouth daily. ??? cholecalciferol, Vitamin D3, 2,000 unit Tablet Take 1 tablet by mouth daily. ??? atorvastatin (LIPITOR) 20 mg Tablet Take 1 tablet by mouth daily. ??? nicotine (NICODERM CQ) 21 mg/24 hr Patch 24 hr APPLY 1 PATCH TOPICALLY DAILY 0 No current facility-administered medications for this visit. Examination: BP 111/42 Comment: Right arm Pulse 60 Resp 20 Ht 167.6 cm (5' 6) Wt 113.4 kg (250 lb) SpO2 99% BMI 40.35 kg/m?? General: WD/WN in no distress HEENT: PERRLA; EOMI; No cervical lymphadenopathy, Oropharynx clear Resp: CTA B/L No crackles or wheeze CV: RRR; S1 + S2; no murmurs GI: Normal BS; Abdomen soft and non-tender, no organomegaly Skin: No rash Extremities: No clubbing, no cyanosis, no edema MSK: Calves soft and non tender Neurologic: CN's intact, no focat deficits, normal gait Psych: Normal mood and affect Labs: Lab Results Component Value Date WBC 7.6 03/21/2017 HGB 14.6 03/21/2017 HCT 43.1 03/21/2017 PLATELET 200 03/21/2017 Imaging: Available CXR and CT Chest images were viewed personally and reports were reviewed. I agree with the radiology reads. Results for orders placed during the hospital [...] this report, please contact the number below. Assessment: 53 yo man, active smoker with history of RLL nodular density which has now resolved. This most likely represented an inflammation/infectious etiology. From pulmonary nodule stand point does not need any further follow up. However he still smokes 1 1/2 PPD and is high risk for primary lung ca. He would benefit from lung cancer screeining. Plan: Enrol in lung cancer screening. Discussed with the patient the importance of smoke cessation Follow up: As needed Ector Garcia MD Pulmonary and Critical Care Medicine Pager #[phone] documented in this encounter Plan of Treatment Not on file documented as of this encounter Results * CT Chest Screening [...] ? Electronically signed by: Salud Beltran MD, [facility] ([phone]), at 12/26/2019 6:44 PM Narrative 12/26/2019 6:44 PM EST EXAMINATION: CT CHEST SCREENING LUNG CANCER CLINICAL HISTORY: Lung Cancer Screening Asymptomatic but at high risk for lung cancer TECHNIQUE: Noncontrast, low-[place] chest CT [place] [facility] [place]. COMPARISON: 11/22/2018 [...] TECHNIQUE: Noncontrast, low-dose chest CT ([place]CT) [place] [facility] [place]. COMPARISON: 11/22/2018 noncontrast [...] this report, please contact the number below. Ector Garcia MD IMG CT ORDERABLES documented in this encounter Visit Diagnoses Diagnosis Pulmonary nodule Solitary pulmonary nodule Pulmonary nodule Solitary pulmonary nodule documented in this encounter Care Teams Lead Tinner Relationship Specialty Start Date End Date None None PCP - General 01/22/18 03/01/20 documented as of this encounter
--- OUTSIDE RECORDS SUMMARY | 2023-09-10 00:50 | XMS_ITS | Encounter Summary ---
Author Organization [facility] Address [facility] [place] [address] Care Team Providers Care Fish Agent Name Role Phone Garth Berg MD Primary Care Provider [phone] Reason for Visit * Auth/Cert Specialty Diagnoses / Procedures Referred By Contac t Referred To Contact Diagnoses Unstable angina [place] ?CAD Procedures CARDIAC CATHETERIZATION Referral ID Status Reason Start Date Expiration Date Visits Re quested Visits Authorized [id number] 1 1 Encounter Details Date Type Department Care Team (Latest Contact Info) Description 03/20/2017 1:33 PM EST - 03/21/2017 1:28 PM EST Hospital Encounter [place] [id number] Jose Olivares MD [facility] [place] [address] Atherosclerosis of [place] coronary artery of [place] heart with unstable angina pectoris Discharge Disposition: Home Social History Tobacco Use [...] Sign Reading Time Taken Comments Blood Pressure 106/59 03/21/2017 12:02 PM EST Pulse 60 03/21/2017 12:02 PM EST Temperature 36.7 ??C (98.1 ??F) 03/21/2017 1 2:02 PM EST Respiratory Rate 18 03/21/2017 12:0 2 PM EST Oxygen Saturation 97% 03/21/2017 12: 02 PM EST Inhaled Oxygen Concentration - - Weight 104.6 kg (230 lb 9.6 oz) 03/21/2017 5:14 AM EST Height 170.2 cm (5' 7) 03/20/2017 1:36 PM EST Body Mass Index 36.12 03/20/2017 1:36 PM EST documented in this encounter Discharge Summaries * Jose Olivares MD - 03/21/2017 1:28 PM EST Discharge Summary Patient Name: Mannie Padilla Patient Age: 51 y.o. Language: German Race: Ethnicity: Admit date: 03/20/2017 Discharge date and time: 03/21/2017 Attending Physician: Dr. Jose Olivares Discharge Physician: Dr. Jim West Follow-up Recommendations for Providers: - Please draw a basic metabolic panel in 1-2 weeks to assess renal function and electrolytes, as his antihypertensive regimen was changed. - The patient was started on low-dose amlodipine for empiric treatment of coronary artery vasospasm, given that he had clear coronary arteries on cardiac catheterization. Inpatient Provider Contact Information: For questions regarding this document or issues relating to this hospitalization on the Medical Service, please contact your inpatient physician through the [facility] . Issues afterhours and on weekends will be handled by the director of instruction on-call. Discharge Diagnoses (Hospital Problems) and Secondary Diagnoses (Chronic Problems): Active Hospital Problems Diagnosis ??? Unstable angina Resolved Hospital Problems Diagnosis Date Resolved No resolved problems to display. There are no active non-hospital problems to display for this patient. Operations/Major Procedures: Operations: Procedure(s): CARDIAC CATHETERIZATION 03/20/2017 Other Major Procedures: None History of Presentation: ID/Chief Complaint: 51 y.o. man with history of CAD, HTN, HLD, COPD, ELIU, DM c/b neuropathy, osteoarthritis and GERD presenting in transfer due to unstable angina. ?? History of Present Illness: Mr. Mannie Padilla is a 51 y.o. man with history of CAD (stress test 02/2017 with inferior/apical reversable ischemia), HTN, HLD, COPD, ELIU, NIDDM II c/b neuropathy, GERD and active tobacco use (>100 pack years) presenting in transfer from [facility] with unstable angina. He presented to the ED yesterday after an episode of chest pain at rest. He was resting in bed at about 08:30 when he experienced 10/10 substernal chest pain without radiation or other associated symptoms. He checked his blood pressure, which was 165/109 (typically SBP 120s at home), which prompted him to call his PCP, who directed him to the ED. There, he received SLNG with relief. ?? He was admitted for observation given no acute changes on EKG and negative biomarkers, and later experienced a second episode of similar pain, however this time with radiation to the left shoulder. He received two doses of SLNG with partial resolution of the pain, then was placed on nitro gtt and heparin gtt with complete resolution of the pain. Again, no associated dyspnea, nausea or diaphoresis. He denies recent illness or other new complaints in recent weeks. ?? Emergency contact: Gayatri Suarez - [phone] (Mother) ?? OSH labs prior to transfer: CBC: WBC 10.13 Hgb 14.5 Plt 218 ?? CMP: Na 137 K 3.6 Cr 1.87 ?? Cardiac enzymes: Tn-I < 0.02 (06:10) ?? Other labs: D-Dimer wnl Hospital Course: # Chest pain, unknown etiology The patient was admitted and originally treated for acute coronary syndrome with clinical presentation that was consistent with unstable angina. He was taken for cardiac catheterization on 03/20/2017which showed clear coronary arteries. Transthoracic echocardiogram showed LVH, with EF of 65%. Following cardiac catheterization and throughout his hospital course, he was symptom free. It is possible that his chest pain can be explained by coronary artery vasospasm and/or HTN - on discharge on 02/03, he was started empirically on amlodipine. He was also discharged on daily aspirin and statin. # Hypertension The patient's blood pressures were reasonably well controlled while on his home dose of lisinopril (40 mg daily). His home HCTZ was held throughout the hospitalization. On discharge, he was prescribed amlodipine empirically for coronary vasospasm (as above), and lisinopril 30 mg daily, reduced from40 mg daily. His home HCTZ was discontinued. # Tobacco use - The patient was counseled on the importance of tobacco cessation. He was started on nicotine replacement therapy during his course. On discharged, he was prescribed nicotine patches. Vital Signs at Discharge: BP: 106/59, Heart Rate: 60, Temp: 36.7 ??C (98.1 ??F), Resp: 18, BMI (Calculated): 36.42 Height: 170.2 cm (5' 7) (03/20/17 1336) Weight: 104.6 kg (230 lb 9.6 oz) (03/21/17 0514) Functional and Cognitive Status: Stable Important Studies and Lab Data: Labs: Last 3 wbc, hgb, hct plt Recent Labs 03/21/17 0507 03/20/17 1454 WBC 7.6 10.4* HGB 14.6 14.5 HCT 43.1 41.9 PLATELET 200 188 Last 3 Lytes Recent Labs 03/21/17 0507 03/20/17 1454 NA 139 140 K 4.0 3.8 CL 103 103 CO2 25 22 BUN 19 19 CREATININE 1.31 1.22 Last 3 LFTs Recent Labs 03/20/17 1454 AST 17 ALT 27 ALKPHOS 68 BILITOT 0.4 BILIDIR 0.1 Last Ca, Mg, Phos Recent Labs 03/21/17 0507 03/20/17 1454 CALCIUM 9.2 9.1 PHOS -- 3.3 Last 3 Coags Recent Labs 03/20/17 1454 PT 13.1 INR 1.0 PTT 43* Last 3 ProBNP, Trop, CK Recent Labs 03/20/17 1454 CK 116 TROPONINT <0.01 PROBNP 14 Last 3 Lipids Recent Labs 03/21/17 0507 CHLPL 129 HDL 22* LDLCHOL 41 TRIG 330* Last 3 HgbA1C Recent Labs 03/21/17 0507 HA1C 6.0* Imaging/Studies: TTE (03/20/2017) SUMMARY: ?? 1. Technically limited study. 2. [...] There is no hemodynamically significant valve disease. Cardiac catheterization (03/20/2017): Coronary Angiography: Dominance: Right ? Left Main The left main was normal. ? Left Anterior Descending The left anterior descending (LAD) was normal. ? Left Circumflex The left circumflex (LCX) was normal. ? Right Coronary Artery The right coronary artery (RCA) was normal. ? Vascular Access: Vascular Access Management: Mechanical Compression of the right radial artery access site was performed. ? Conclusions: * Normal coronary arteries ? Complications/Events: The patient had no complications during these procedures. ? Recommendations: Based upon the results of this procedure, it was recommended that the patient be managed with medical therapy. ? Pending Studies and Lab Data: None Discharge Conditions/Prognosis: Stable Discharge to: Home Updated Allergies/ADRs: Allergies Allergen Reactions ??? Naproxen Hives ??? Prednisone Nausea Only Immunizations Given this Hospitalization: There is no immunization history on file for this patient. Discharge Medications: Your Medications New Medications Dose Details amLODIPine 2.5 mg Tab Commonly known as: NORVASC Take 1 tablet by mouth daily. 2.5 mg Quantity: 90 tablet Refills: 3 aspirin 81 mg Tbec Take 1 tablet by mouth daily. 81 mg Quantity: 30 tablet Refills: 3 nicotine 21 mg/24 hr Pt24 Commonly known as: NICODERM CQ Place 1 patch onto the skin daily for 30 days. 1 patch Quantity: 30 patch Refills: 0 Continued medications with new dosing Dose Details glipiZIDE 2.5 mg Tr24 Commonly known as: GLUCOTROL XL Take 2.5 mg by mouth daily. What changed: Another medication with the same name was removed. Continue taking this medication, and follow the directions you see here. 2.5 mg Refills: 0 lisinopril 30 mg Tab Commonly known as: PRINIVIL;ZESTRIL Take 1 tablet by mouth daily. What changed: - medication strength - how much to take 30 mg Quantity: 90 tablet Refills: 3 Continued medications, unchanged Dose Details atorvastatin 20 mg Tab Commonly known as: LIPITOR Take 1 tablet by mouth daily. 1 tablet Refills: 0 cholecalciferol (Vitamin D3) 2,000 unit Tab Take 1 tablet by mouth daily. 1 tablet Refills: 0 metFORMIN 1,000 mg Tr24 Commonly known as: FORTAMET Take 1,000 mg by mouth daily. 1000 mg Refills: 0 omeprazole 40 mg Cpdr Commonly known as: PriLOSEC Take 40 mg by mouth daily. 40 mg Refills: 0 PARoxetine 20 mg Tab Commonly known as: PAXIL Take 20 mg by mouth daily. 20 mg Refills: 0 STOPPED Medications hydroCHLOROthiazide 12.5 mg Tab Commonly known as: HYDRODIURIL nitroGLYcerin 0.4 mg Subl Commonly known as: NITROSTAT Smoking Status at Discharge: History Smoking Status ??? Current Every Day Smoker ??? Packs/day: 3.00 ??? Years: 38.00 ??? Types: Cigarettes Smokeless Tobacco ??? Never Used Instructions Given to Patient at Discharge: Patient Instructions Instruction after leaving the hospital Why you were hospitalized: you were hospitalized for chest pain of unclear etiology. Call your doctor or seek medical attention if you develop the following: chest pain, shortness of breath, passing out, feeling dizzy upon standing, passing out, diarrhea, constipation lasting longer than 2 days, fevers (temperature over 100.3), chills, abdominal pain, vomiting, difficulty or discomfort when urinating, bloody or black bowel movements, or any other acute or concerning symptom. Activity level: As before hospitalization Diet: Healthy low sodium diet Driving: As before hospitalization Shower/Bath: As before hospitalzation Wound Care: N/A Home Oxygen therapy: N/A Specific instructions related to your condition: Please follow up with your primary care provider and lead blender for further instructions on your medication regimen. Primary care follow up: To be determined Follow-Up Appointments Future Appointments Date Time Provider Department Center 04/16/2017 12:00 PM Laverne Coon MD [facility] Date and Time Provider and Specialty Location Your Inpatient Doctor(s) at [facility]: Dr. Jose West General Instructions None Future Appointments and Orders Future Appointments Provider Department Dept Phone 04/16/2017 12:00 PM Laverne Coon MD Cardiology at [place] [phone] Discharge References/Attachments None documented in this encounter Discharge Instructions * Patient Instructions* Jim West MD - 03/21/2017 10:43 AM EST Instruction after leaving the hospital Why you were hospitalized: you were hospitalized for chest pain of unclear etiology. Call your doctor or seek medical attention if you develop the following: chest pain, shortness of breath, passing out, feeling dizzy upon standing, passing out, diarrhea, constipation lasting longer than 2 days, fevers (temperature over 100.3), chills, abdominal pain, vomiting, difficulty or discomfort when urinating, bloody or black bowel movements, or any other acute or concerning symptom. Activity level: As before hospitalization Diet: Healthy low sodium diet Driving: As before hospitalization Shower/Bath: As before hospitalzation Wound Care: N/A Home Oxygen therapy: N/A Specific instructions related to your condition: Please follow up with your primary care provider and lead blender for further instructions on your medication regimen. Primary care follow up: To be determined Follow-Up Appointments Future Appointments Date Time Provider Department Center 04/16/2017 12:00 PM Laverne Coon MD [facility] Date and Time Provider and Specialty Location Your Inpatient Doctor(s) at [facility]: Dr. Jose West documented in this encounter Medications at Time of Discharge Medication Sig Dispensed Refills Start Date End Date aspirin 81 mg Tablet, Delayed Release (E.C.) Take 1 tablet by mouth daily. 30 tablet 3 03/21/2017 lisinopril (PRINIVIL;ZESTRIL) 30 mg Tablet Take 1 tablet by mouth daily. 90 tablet 3 03/22/2017 omeprazole (PRILOSEC) 40 mg Capsule, Delayed Release(E.C.) Take 40 mg by mouth daily. 01/21/2017 cholecalciferol, Vitamin D3, 2,000 unit Tablet Take 1 tablet by mouth daily. 11/17/2016 nicotine (NICODERM CQ) 21 mg/24 [address] 1 patch onto the skin daily for 30 days. 30 patch 03/21/2017 04/20/2017 amLODIPine (NORVASC) 2.5 mg Tablet Take 1 [...] 02/21/2017 09/27/2020 documented as of this encounter Progress Notes * Effie Young RN - 03/21/2017 1:09 PM EST Patient discharged to home. AVS reviewed with patient, questions answered and patient voiced understanding of discharge instructions. IVs removed and telemetry disconnected. Patient brought to [facility] via wheelchair. * Jose Olivares MD - 03/21/2017 4:37 AM EST Inpatient Cardiology Progress Note Patient Name: Mannie Padilla Date of Admission: 03/20/2017 ( Hospital Day 1 day ) Service: S2 ID: Mr. Mannie Padilla is a 51 y.o. man with history of CAD (stress test 02/2017 with inferior/apical reversable ischemia), HTN, HLD, COPD, ELIU, NIDDM II c/b neuropathy, GERD and active tobacco use (>100 pack years) presenting in transfer from [facility] with unstable angina. Active Problems: Active Hospital Problems Diagnosis ??? Unstable angina Resolved Hospital Problems Diagnosis Date Resolved No resolved problems to display. 24 hr events/Subjective: - No acute events overnight ROS: Denies CP, SOB, palpitations, PND, Orthopnea, dizziness/LH, LE swelling or pain, n/v, abd pain. Physical Exam: Last value Range last 24 hrs Temperature Temp: 36.8 ??C (98.2 ??F) Temp: [36.6 ??C (97.9 ??F)-37.2 ??C (99 ??F)] Heart Rate Heart Rate: 64 Heart Rate: [55-81] Blood Pressure BP: 107/54 BP: (103-166)/(53-92) Respiratory Rate Resp: 18 Resp: [15-26] SpO2 SpO2: 94 % SpO2: [93 %-99 %] CPAP overnight Avg 110s systolic Telemetry: Intake/Output Summary (Last 24 hours) at 03/21/17 0922 Last data filed at 03/21/17 0854 Gross per 24 hour Intake 745 ml Output 1975 ml Net -1230 ml cumulative I/O's since admission: Patient Vitals for the past 168 hrs: Weight 03/21/17 0514 104.6 kg (230 lb 9.6 oz) 03/20/17 1336 105.5 kg (232 lb 9.4 oz) General: Pleasant, alert, appropriate, in NAD. Appears stated age. Obese HEENT: EOMI, PERRL, anicteric sclera. Oropharynx clear w/o lesions. Moist mucous membranes. Edentulous. Neck: Supple with normal ROM. No obvious LAD. JVD difficult to assess due to body habitus. Cardiac: Normal S1 and S2, Regular rate and rhythm; No murmurs/gallops/rubs. Respiratory: Nonlabored. Prolonged expiratory phase, scant wheeze, no crackles Abd: + BS; soft, non-tender, non-distended, no obvious masses. Ext: WWP without LE edema, cyanosis or clubbing. DPP 2+ bilaterally. Neuro: II-XII grossly intact. Alert and orientated, no focal deficits, sensation decreased in lowerextremities Skin: No rashes, no lesions, no petechiae Labs Recent Labs 03/21/17 0507 03/20/17 1454 WBC 7.6 10.4* HGB 14.6 14.5 HCT 43.1 41.9 PLATELET 200 188 Recent Labs 03/21/17 0507 03/20/17 1454 NA 139 140 K 4.0 3.8 CL 103 103 CO2 25 22 BUN 19 19 CREATININE 1.31 1.22 Recent Labs 03/20/17 1454 AST 17 ALT 27 ALKPHOS 68 BILITOT 0.4 BILIDIR 0.1 Recent Labs 03/21/17 0507 03/20/17 1454 CALCIUM 9.2 9.1 MAGNESIUM 0.89 0.85 PHOS -- 3.3 Recent Labs 03/20/17 1454 INR 1.0 PT 13.1 PTT 43* Recent Labs 03/20/17 1454 CK 116 TROPONINT <0.01 Imaging/Studies: Cardiac Catheterization: Coronary Angiography: Dominance: Right ? Left Main The left main was normal. ? Left Anterior Descending The left anterior descending (LAD) was normal. ? Left Circumflex The left circumflex (LCX) was normal. ? Right Coronary Artery The right coronary artery (RCA) was normal. ? Vascular Access: Vascular Access Management: Mechanical Compression of the right radial artery access site was performed. ? Conclusions: * Normal coronary arteries ? Complications/Events: The patient had no complications during these procedures. ? Recommendations: Based upon the results of this procedure, it was recommended that the patient be managed with medical therapy. TTE: 1. Technically limited study. 2. The left [...] There is no hemodynamically significant valve disease. Medications: ??? atorvastatin 80 mg Oral QPM ??? lisinopril 40 mg Oral Daily ??? pantoprazole 40 mg Oral Daily ??? PARoxetine 20 mg Oral Nightly ??? sodium chloride 0.9 % 5 mL Intravenous BID ??? nicotine 21 mg Transdermal Daily And ??? Patch Verification 1 patch Transdermal BID And ??? nicotine 1 patch Transdermal Daily ??? insulin lispro 1-4 Units Subcutaneous TID AC sodium chloride 0.9 %, lidocaine, nitroGLYcerin, acetaminophen, docusate sodium, nicotine polacrilex, dextrose 50% OR glucagon (human recombinant) Assessment: Mr. Mannie Padilla is a 51 y.o. man with history of CAD (stress test 02/2017 with inferior/apical reversable ischemia), HTN, HLD, COPD, ELIU, NIDDM II c/b neuropathy, GERD and active tobacco use (>100 pack years) presenting in transfer from [facility] with unstable angina. Plan: Cardiac catheterization shows clear coronary arteries, TTE is normal. Thus, chest pain is of unclear etiology; may consider coronary artery vasospasm. Given this, will start on low-dose Norvasc daily. He was seen and evaluated today and determined to be stable for discharge home. He will be discharged on Norvasc (as mentioned above), aspirin, atorvastatin, lisinopril. He will follow-up with his PCP and lead blender as an outpatient. Jim West MD, PGY-1 Cardiology S1 (pgr. [id number]) CARDIOLOGY STAFF NOTE Mannie Padilla is a 51 y.o. year-old male patient whom I saw today with Dr. West. I havepersonally interviewed and examined the patient and reviewed appropriate data, including labs, ECGsand other diagnostic studies. I agree with the principal findings documented above. The assessment and plan were formulated in discussion with me. No symptoms in hospital. Unchanged, unremarkable examination. Negative troponin, normal BNP, and normal D-dimer (prior to transfer). Normal ECG and unremarkable TTE. Cath yesterday showed no significant CAD. Episodes could conceivably have reflected vasospasm, given elimination of most other diagnoses in work-up thus far. Will reduce lisinopril and add amlodipine. Discharge today; he feels comfortable with this and is ambulatory. Jose Olivares MD, [facility], [facility] Staff Health Inspector Food pager [phone] * Savita Aquilino X - 03/21/2017 12:02 AM EST Post-Catheterization Check S: Patient resting comfortably, mild discomfort at cath site. Notes no bleeding. Denies chest pain,palpitations, or SOB. O: Most Recent Vitals: 03/20/17 2313 BP: 116/63 Pulse: 59 Resp: 21 Temp: 36.6 ??C (97.9 ??F) SpO2: 96% Gen: resting comfortably Groin: R radial access site without hematoma or ecchymosis. No active bleeding. Dressing c/d/i. No tenderness to palpation. Neuro: CNII-XII intact. Strength/sensation intact distally A/P: Patient stable following cardiac cath. No apparent complications. Will continue to monitor. NDEEP * Effie Young RN - 03/20/2017 4:37 PM EST OUTCOME EVALUATION NOTE: OUTCOME SUMMARY: Patient arrived from OSH. VSS on RA. Telemetry initiated, NSR. EKG obtained. Admit labs drawn. Bedside echo obtained. Family at bedside. Patient brought to hot plate plywood press laborer. Patient returned from hot plate plywood press laborer. TR band in place. Fluids infusing as ordered. PLAN MOVING FORWARD: Discharge planning as appropriate INDIVIDUALIZED FALL PREVENTION INTERVENTIONS: Patient-specific fall risk factors per assessment: [current deficits]: Hospitalization, CP Assistance [level of assistance required for transfers and ambulation]: SB Supervision [direct monitoring required during toileting and ADLs]: Intermittent, rings appropriately Surveillance [continuous indirect monitoring]: Telemetry, hourly rounding, call stack in reach * Saúl Mijares - 03/20/2017 3:23 PM EST Images from the original note were not included. Pre Cardiac Catheterization Note 51 y.o. male presents with unstable angina. Denies planned upcoming surgeries. Denies recent or ongoing bleeding events. BP 131/72 (BP Location (NBP): Left arm, Patient Position: Sitting) Pulse 79 Temp 37.2 ??C (99 ??F) (Oral) Resp 22 Ht 170.2 cm (5' 7) Wt 105.5 kg (232 lb 9.4 oz) SpO2 93% BMI 36.43 kg/m2 Gen: Pleasant male in no apparent distress, able to lay flat Cor: rrr, s1/s2 of nl character and amplitude, no m/r/g. Estimated RAP 10 Pulm: CTAB Ext: Bilateral Sterling's Test demonstrates adequate reperfusion via the ulnar artery alone. Femoral arteries are with adequate upstroke and without overlying evidence of infection. DP/PT ++ Neuro: sans focal deficit ASA III Mallampati 2 Last 3 wbc, hgb, hct plt Recent Labs 03/20/17 1454 WBC 10.4* HGB 14.5 HCT 41.9 PLATELET 188 Last 3 Lytes Recent Labs 03/20/17 1454 NA 140 K 3.8 CL 103 CO2 22 BUN 19 CREATININE 1.22 Previous Catheterization: None The indications, expected benefits, and potential risks of heart catheterization were reviewed in detail with the patient. The potential for , heart attack, stroke, kidney failure, hemorrhage, allergic reaction, vascular complications and infection were reviewed in detail. The possibility of stenting and other percutaneous intervention, with associated risk, was reviewed. The possible need for emergent coronary artery bypass surgery was reviewed. Alternatives were discussed and the patient's questions were answered in full. Following this discussion, the patient consented to the procedure and signed a form attesting to this, which is in the chart. Plan/ Coronary Angio per blending operator preference No c/i to long-term DAPT Moderate sedation MAGUI Mijares MD documented in this encounter H&P Notes * Jose Olivares MD - 03/20/2017 1:39 PM EST Cardiology Admission History and Physical Patient Name: Mannie Padilla Service: Cardiology S1 Team Responsible Attending: Jose Olivares MD PCP: Garth Berg MD PCP phone #: [phone] ID/Chief Complaint: 51 y.o. man with history of CAD, HTN, HLD, COPD, ELIU, DM c/b neuropathy, osteoarthritis and GERD presenting in transfer due to unstable angina. History of Present Illness: Mr. Mannie Padilla is a 51 y.o. man with history of CAD (stress test 02/2017 with inferior/apical reversable ischemia), HTN, HLD, COPD, ELIU, NIDDM II c/b neuropathy, GERD and active tobacco use (>100 pack years) presenting in transfer from [facility] with unstable angina. He presented to the ED yesterday after an episode of chest pain at rest. He was resting in bed at about 08:30 when he experienced 10/10 substernal chest pain without radiation or other associated symptoms. He checked his blood pressure, which was 165/109 (typically SBP 120s at home), which prompted him to call his PCP, who directed him to the ED. There, he received SLNG with relief. He was admitted for observation given no acute changes on EKG and negative biomarkers, and later experienced a second episode of similar pain, however this time with radiation to the left shoulder. He received two doses of SLNG with partial resolution of the pain, then was placed on nitro gtt and heparin gtt with complete resolution of the pain. Again, no associated dyspnea, nausea or diaphoresis. He denies recent illness or other new complaints in recent weeks. Emergency contact: Gayatri Suarez - [phone] (Mother) OSH labs prior to transfer: CBC: WBC 10.13 Hgb 14.5 Plt 218 CMP: Na 137 K 3.6 Cr 1.87 Cardiac enzymes: Tn-I < 0.02 (06:10) Other labs: D-Dimer wnl Review of Systems: GENERAL HEENT CV PULM X All negative X All negative X All negative All negative Weight loss Headache Chest Pain X Non-productive cough Weight gain Vision change Palpitations Productive cough Fevers Sinus congestion Orthopnea Wheezing Chills Hoarseness LE edema Hemoptysis Night sweats Epistaxis PND Pleuritic pain Fatigue Syncope SOB Claudication [facility] ENDO GI X All negative X All negative X All negative X All negative Arthralgias Frequency Heat intolerance Blood in stool Myalgias Urgency Cold intolerance Dysphagia Weakness Hematuria Polydipsia Odynophagia Stiffness Flank pain Polyphagia Abdominal discomfort Dysuria Cushingoid Constipation Foamy urine Diarrhea Discharge Nausea/Vomiting LYMPH SKIN NEURO PSYCH X All negative X All negative X All negative X All negative Swollen nodes Rash Seizures Depressed affect Tender nodes Ulcers Tremors Occupational stress Diffuse nodes Bruising Spasticity Anxiety Local nodes Tanned skin Focal weakness Insomnia Night sweats Telangiectasias Diplopia Paresthesias Dizziness Problem List/Past Medical History Patient Active Problem List Diagnosis ??? Unstable angina Meds: No current facility-administered medications on file prior to encounter. No current outpatient prescriptions on file prior to encounter. Allergies: Allergies Allergen Reactions ??? Naproxen Hives ??? Prednisone Nausea Only Family History: Mother: HTN, CVA MGF: RI 57 MGGF: RI 80 Father: of brain cancer at 67 Siblings: HTN, DM. 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 Lives with ex- in house. No biological children. Completed 11th grade. Vitals: Last value Range last 24 hrs Temperature Temp: 37.2 ??C (99 ??F) Temp: [37.2 ??C (99 ??F)] Heart Rate Heart Rate: 79 Heart Rate: [79] Blood Pressure BP: 131/72 BP: (131)/(72) Respiratory Rate Resp: 22 Resp: [22] SpO2 SpO2: 93 % SpO2: [93 %] Examination: General: Pleasant, alert, appropriate, in NAD. Appears stated age. Obese HEENT: EOMI, PERRL, anicteric sclera. Oropharynx clear w/o lesions. Moist mucous membranes. Edentulous. Neck: Supple with normal ROM. No obvious LAD. JVD difficult to assess due to body habitus. Cardiac: Normal S1 and S2, Regular rate and rhythm; No murmurs/gallops/rubs. Respiratory: Nonlabored. Prolonged expiratory phase, scant wheeze, no crackles Abd: + BS; soft, non-tender, non-distended, no obvious masses. Ext: WWP without LE edema, cyanosis or clubbing. DPP 2+ bilaterally. Neuro: II-XII grossly intact. Alert and orientated, no focal deficits, sensation decreased in lowerextremities Skin: No rashes, no lesions, no petechiae Lines: PIV Laboratory: CBC: Recent Labs 03/20/17 1454 WBC 10.4* HGB 14.5 PLATELET 188 Chemistry: No results for input(s): NA, K, CL, CO2, BUN, CREATININE, GLUCOSE in the last 7068 hours. No results for input(s): CALCIUM, MAGNESIUM, PHOS in the last 7068 hours. LFT's: No results for input(s): BILITOT, BILIDIR, ALBUMIN, ALKPHOS, ALT, AST in the last 7068 hours. Coags: Recent Labs 03/20/17 1454 PT 13.1 INR 1.0 PTT 43* Cardiac enzymes: No results for input(s): TROPONINT, CK in the last 7068 hours. Endocrine: No results for input(s): TSH, CORTISOL in the last 7068 hours. Invalid input(s): QOKMLERHYLV2T Heme: No results for input(s): LDH, HAPTOGLOBIN, URICACID in the last 168 hours. Microbiology: None Diagnostic Studies: EKG- NSR, rate 60, no ST elevations or depressions CXR- Per report, no acute cardiopulmonary disease ASSESSMENT: Mr. Mannie Padilla is a 51 y.o. man with history of CAD (stress test 02/2017 with inferior/apical reversable ischemia), HTN, HLD, COPD, ELIU, NIDDM II c/b neuropathy, GERD and active tobacco use (>100 pack years) presenting in transfer from [facility] with unstable angina. He is currently without chest pain and has successfully been weaned off nitroglycerine drip. Given presentation, risk factorsand recent positive stress test, we will proceed with cardiac catheterization. Details of plan as follows. PLAN: Admit to Cardiology, S1 Team Pager # [phone] # ACS - unstable angina - Medications (Respective loading doses previously given): - Heparin gtt per ACS protocol - ASA 81mg qd - Plavix 75mg qd - Lopressor 12.5mg q6h as tolerated - Lisinopril 40mg daily (home dose) - Lipitor 80mg qhs - GTN prn chest pain - Labs - Cycle cardiac enzymes stat and q6h. Discontinue once peak is noted - CBC, CMP, coags stat - Lipid profile, hba1c tomorrow AM - Imaging - EKG stat and qam - EKG per chest pain protocol - CXR as above - TTE # HTN - Goal SBP < 160. - Medications: lisinopril - PRNs: n/a # Depression/anxiety - Paxil 20mg daily # GERD - Pantoprazole 40mg daily # Diabetes: - Goal glucose < 180 - ISS - Hold home oral antihyperglycemics # Tobacco abuse - Cessation team consult - Nicotine patch, lozenges prn # FEN/Ppx - Diet: NPO for cath, then Cardiac carb control diet - VTE: on therapeutic anticoagulation - Electrolytes: Goal K > 4, Mg > 1. K+ protocol Code Status: FULL A. Sima Hearn MD Internal Medicine PGY-2 Cardiology S1 # 3011 CARDIOLOGY STAFF NOTE Mannie Padilla is a 51 y.o. year-old male patient whom I saw today with Dr. Hearn I have personally interviewed and examined the patient and reviewed appropriate data, including labs, ECGs andother diagnostic studies. I agree with the principal findings documented above. The assessment and plan were formulated in discussion with me. Events / Symptoms: Asymptomatic at rest currently. Pertinent Examination Findings: No clear increase in JVP; lungs distant; RRR; no edema. # Unstable angina # Recent abnormal stress MPI Presents after several episodes of severe resting chest discomfort. Had undergone stress MPI in February for a similar episode; evidence for ischemia at that time. ECG unremarkable while pain-free now. We reviewed the rationale for invasive coronary assessment and possible intervention. He agrees to proceed. TTE in process now. Continue full complement of ACS medical therapies. Jose Olivares MD, [facility], [facility], [facility] Staff Health Inspector Food pager [phone] documented in this encounter Miscellaneous Notes * Plan of Care - Azalia Tierney RN - 03/21/2017 2:56 AM EST Problem: Patient Care Overview Goal: Plan of Care Review Outcome: Ongoing (Interventions Implemented as Appropriate) 03/20/17 1632 03/21/17 0254 Plan of Care Review Progress progress toward functional goals as expected -- Coping/Psychosocial Plan Of Care Reviewed With -- patient OUTCOME EVALUATION NOTE: OUTCOME SUMMARY: Seth had an uneventful night and slept the majority of the shift. VS WNL. SR/SB on tele. Wore CPAP overnight. Right radial site c/d/i. Denies any pain or SOB. PLAN MOVING FORWARD: D/c home INDIVIDUALIZED FALL PREVENTION INTERVENTIONS: Patient-specific fall risk factors per assessment: [current deficits]: unfam env, tubing Assistance [level of assistance required for transfers and ambulation]: SBA Supervision [direct monitoring required during toileting and ADLs]: Intermittent Surveillance [continuous indirect monitoring]: Safety rounding Patient-specific fall prevention interventions for sensory deficits provided, if applicable: n/a CPG GOAL OUTCOME EVALUATION: documented in this encounter Plan of Treatment Not on file documented as of this encounter Procedures Procedure Name Priority Date/Time Associated Diagnosis Comments SPINNER HYDRAULIC SCAN 03/22/2017 12:00 AM EST POCT GLUCOSE Routine 03/21/2017 11:58 AM EST POCT GLUCOSE Routine 03/21/2017 7:39 AM EST HEMOGRAM Routine 03/21/2017 5:07 AM EST DIFFERENTIAL, AUTOMATED Routine 03/21/19 5:07 AM EST CBC (WITH DIFF) Routine 03/21/2017 5:07 AM EST MAGNESIUM Routine 03/21/2017 5:07 AM EST HEMOGLOBIN A1C Routine 03/21/2017 5:07 AM EST LIPID PANEL (REFLEX DIRECT LDL) Routine 03/21/2017 5:07 AM EST BASIC METABOLIC PANEL (NON-FASTING) STAT 03/21/2017 5:07 AM EST POCT GLUCOSE Routine 03/20/2017 8:06 PM EST CARDIAC CATHETERIZATION Routine 03/20/19 18 5:15 PM EST ECHO COMPLETE W CONTRAST Routine 03/20/2017 4:44 PM EST Atherosclerosis of [place] coronary artery of [place] heart with unstable angina pectoris EKG 12-LEAD STAT 03/20/2017 3:05 PM EST Atherosclerosis of [place] coronary artery of [place] heart with unstable angina pectoris HEMOGRAM Routine 03/20/2017 2:54 PM EST DIFFERENTIAL, AUTOMATED Routine 03/20/19 18 2:54 PM EST CARDIAC ENZYMES ([facility]) Routine 03/20/2017 2:54 PM EST APTT STAT 03/20/2017 2:54 PM EST PROTHROMBIN TIME Routine 03/20/2017 2:54 PM EST CBC (WITH DIFF) Routine 03/20/2017 2:54 PM EST TSH Routine 03/20/2017 2:54 PM EST PHOSPHORUS Routine 03/20/2017 2:54 PM EST PRO-BRAIN NATRIURETIC PEPTIDE Routine 03/20/2017 2:54 PM EST MAGNESIUM Routine 03/20/2017 2:54 PM EST HEPATIC FUNCTION PANEL Routine 02/02/201 8 2:54 PM EST BASIC METABOLIC PANEL (NON-FASTING) Routine 03/20/2017 2:54 PM EST CARDIAC CATH SCAN 03/20/2017 12: 00 AM EST documented in this encounter Results * SCAN DOC: SPINNER HYDRAULIC (03/22/2017 12:00 AM EST) Anatomical Region Laterality Modality Other Narrative 03/22/2017 12:00 AM EST Ordered by an unspecified provider. Scanning Provider MEDIA MGR SCAN EXT O RDR/RSLT * POCT Glucose (03/21/2017 11:58 AM EST) POC Glucose 104 65 - 199 mg/dL [facility] Comment: Supplemental ranges: <140 mg/dL before meals <180 mg/dL all other times of the day Blood specimen (specimen) 03/21/2017 11:58 AM EST 03/21/2017 11:58 AM EST Jose Olivares MD POINT OF CARE TEST O DEANN Performing Organization Address [facility]/ZIP Co de Phone Number [facility] [place] [address] * POCT Glucose (03/21/2017 7:39 AM EST) POC Glucose 127 65 - 199 mg/dL [facility] Comment: Supplemental ranges: <140 mg/dL before meals <180 mg/dL all other times of the day Blood specimen (specimen) 03/21/2017 7:39 AM EST 03/21/2017 7:39 AM EST Jose Olivares MD POINT OF CARE TEST O DEANN Performing Organization Address City/[facility]/ZIP Co de Phone Number [facility] [place] [address] * Magnesium (03/21/2017 5:07 AM EST) Magnesium 0.89 0.69 - 1.07 mmol/L [facility] Blood specimen (specimen) Venous Draw / Unknown 03/21/2017 5:07 AM EST 03/21/2017 5:30 AM EST Narrative Resulting Agency Comment Spec In Lab Jim West MD CHEMISTRY ORDERA BLES [facility] [place] [address] * (ABNORMAL) Basic Metabolic Panel (non-fasting) (03/21/2017 5:07 AM EST) Glucose Lvl 121 65 - 199 mg/dL [facility] Comment:Diabetes: >=200 mg/d L plus symptoms BUN 19 10 - 20 mg/dL [facility] Creatinine 1.31 0.80 - 1.50 mg/dL [facility] Sodium 139 135 - 145 mmol/L [facility] Potassium 4.0 3.5 - 5.0 mmol/L [facility] Comment: Please note: ??Patients with WBC >100,000 may have falsely elevated Potassium levels. ??For accurate Potassium quantification in these patients send serum separator tube (gold top) for subsequent determinations. ??Contact the Clinical Chemistry Laboratory if there are any questions. Chloride 103 98 - 107 mmol/L [facility] CO2 25 22 - 31 mmol/L [facility] Anion Gap 11 5 - 15 mmol/L [facility] Calcium 9.2 8.5 - 10.5 mg/dL [facility] Estimated GFR 57(L) >=60 [facility] Comment: The reported eGFR should be multiplied by 1.2 for patients. The MDRD is not an appropriate measure of renal function for patients with body mass extremes or in patients with acute kidney failure. http://Helveta.Intelligent Beauty/DHnkdep http://Netscape/DHMCnkf Blood specimen (specimen) 03/21/2017 5:07 AM EST 03/21/2017 5:29 AM EST Narrative Resulting Agency Comment Spec In Lab Jose Olivares MD CHEMISTRY ORDERABLES Performing Organization Address City/[facility]/ZIP Co de Phone Number [facility] [place] [address] * (ABNORMAL) Differential, Automated (03/21/2017 5:07 AM EST) Neutrophils % 57.4 % [facility] Neutr Abs (ANC) 4.37 1.70 - 6.10 x10(3)/[facility] Lymphocytes % 23.6 % [facility] Lymphocytes Abs 1.8 0.9 - 3.2 x10(3)/[facility] Monocytes % 13.2 % [facility] Monocyte Abs 1.0(H) 0.3 - 0.9 x10(3)/[facility] Eosinophils % 3.2 % [facility] Eosinophils Abs 0.2 0.0 - 0.4 x10(3)/[facility]ORY Basophils % 1.2 % [facility] Basophils Abs 0.1 0.0 - 0.1 x10(3)/[facility]ATORY Immature Gran % 1.40 % [facility] Comment: Immature granulocytes(IG's)percentage and absolute count will include metamyelocytes, myelocytes, and promyelocytes. Blood smears from CBCs yielding IG's will be scanned manually for concordance. If this scan disagrees with the automated IG or if promyelocytes are noted, a manual differential will be performed. Chanelle Gran Abs 0.11(H) 0.00 - 0.04 x10(3)/[facility] Blood specimen (specimen) 03/21/2017 5:07 AM EST 03/21/2017 5:28 AM EST Narrative Resulting Agency Comment Spec In Lab Noelle Hearn MD HEMATOLOGY ORDERABLE S Performing Organization Address City/[facility]/ZIP Co de Phone Number [facility] [place] [address] * Hemogram (03/21/2017 5:07 AM EST) WBC 7.6 4.0 - 9.5 x10(3)/[facility] LABORATORY RBC 4.83 4.58 - 5.54 x10(6)/[facility] Hemoglobin 14.6 13.7 - 16.5 gm/dL [facility] Hematocrit 43.1 40.5 - 48.5 % [facility] MCV 89.2 82.9 - 93.1 fL [facility] MCH 30.2 27.5 - 32.1 pg [facility] MCHC 33.9 32.0 - 35.7 gm/dL [facility] Platelets 200 145 - 357 x10(3)/[facility] LABORATORY RDWSD 42.4 36.0 - 45.0 [facility] LABORATORY RDWCV 12.9 11.4 - 13.8 % [facility] MPV 10.5 7.6 - 12.9 [facility]ATORY nRBC % Auto 0.0 % [facility] nRBC Abs Auto 0.000 0.000 - 0.000 x10(3)/[facility]ORY Blood specimen (specimen) 03/21/2017 5:07 AM EST 03/21/2017 5:28 AM EST Narrative Resulting Agency Comment Spec In Lab Noelle Hearn MD HEMATOLOGY ORDERABLE S [facility] [place] [address] * (ABNORMAL) Hemoglobin A1c (03/21/2017 5:07 AM EST) Hemoglobin A1C 6.0(H) 4.3 - 5.6 % [facility] Comment: Reference Range: 4.3 - [...] 36: Suppl. 1, S67-74 Est Avg Gluc 126 mg/dL [facility] Comment: eAG equivalents [...] into estimated average glucose values. ??Diabetes Care 2008:31(8):9069-9144. Blood specimen (specimen) 03/21/2017 5:07 AM EST 03/21/2017 5:29 AM EST Narrative Resulting Agency Comment Spec In Lab Jose Olivares MD CHEMISTRY ORDERABLES [facility] [place] [address] * (ABNORMAL) Lipid Panel (03/21/2017 5:07 AM EST) Chol, Total 129 <=239 mg/dL [facility] Triglycerides 330(H) <=199 mg/dL [facility] HDL 22(L) >=40 mg/dL [facility] LDL Cholesterol 41 <=190 mg/dL [facility] Chol/HDL Ratio 5.9 ratio [facility] Lipid Interpretation See Note [facility] Comment: Lipid management should be guided by a patient? s ASCVD risk, goals and preferences. ACC/AHA Guidelines recommend high intensity statin if clinical ASCVD or LDL greater than or equal to 190 mg/dL. http://Helveta.com/VGD-TRE-Waifoayvw Adults aged 40-75 with LDL 70-189 mg/dL should have their 10 year ASCVD risk estimated with the ACC/AHA ASCVD risk construction estimator http://tools.acc.org/OBFQH-Zrvf-Vvcfxhwxd/ Statin should be discussed if risk greater [...] critical component of ASCVD risk reduction. Blood specimen (specimen) 03/21/2017 5:07 AM EST 03/21/2017 5:29 AM EST Narrative Resulting Agency Comment Spec In Lab Jose Olivares MD CHEMISTRY ORDERABLES [facility] [place] [address] * POCT Glucose (03/20/2017 8:06 PM EST) Pathologist [facility] [place] POC Glucose 125 65 - 199 mg/dL [facility] Comment: Supplemental ranges: <140 mg/dL before meals <180 mg/dL all other times of the day Blood specimen (specimen) 03/20/2017 8:06 PM EST 03/20/2017 8:06 PM EST Jose Olivares MD POINT OF CARE TEST O RDERABLES [facility] [place] [address] * CARDIAC CATHETERIZATION (03/20/2017 5:15 PM EST) Anatomical Region Laterality Modality Other Narrative 03/20/2017 5:30 PM EST ?[facility] ? Cardiac Catheterization/Intervention Report ? Patient Name: , Mannie Myra. ? Procedure Date: 03/20/2017 ? A #: [id number] ? Primary Physician: Fantasma Rubalcava ? Case #: [id number] ? File Name: [id number] ? Catheterization Order Number: [id number] ? [facility] ? Final Report [place], [place] ? Patient Name: ? Mannie D. Merchant ? ID#: ?[id number] ? : ?1965 ? Procedure Date: ? March 20, 2017 ? Case #: ? [id number] ? Room: ? 5 ? Case Physician: ? Fantasma Rubalcava M.D. ? Start: ?15:57 ?Fellow: ? Ezio Abarca M.D. ?Admission: ??03/20/2017 ? Referring Physician: ??Willy Lewis M.D. ? Procedures: ?* Coronary Angiography ?* Left Heart Catheterization ? History ?Mannie Padilla is a 51 year old man. He has hypertension and morbid ?obesity. The patient has a history of smoking and is still smoking. He ?has hypercholesterolemia managed with lipid therapy. The patient has ?diabetes managed with oral medication. He has unstable angina, negative ?troponin and a history of chest pain. The patient has a history of ?chronic obstructive pulmonary disease. He also has a history of an ?abnormal stress test. Prior to the initiation of this procedure, the ?patient was designated as ASA Class II. ? Patient Status at Catheterization: ?The patient presented with: unstable angina (w/i 60 days). [place] ?Cardiovascular Society angina class was III. This patient was on beta ?blockers prior to the procedure. A SPECT stress test was performed and ?results were Positive and Intermediate Risk ischemia assessment. ? Technique: ?A 6 SLFr sheath was inserted in the right radial artery utilizing the ?Seldinger technique. The left coronary artery was injected utilizing a ?5Fr Tristan Radial catheter. A 5Fr Tristan Radial catheter was used to inject ?the right coronary artery. Left ventricular pressure was performed with a ?5Fr Tristan Radial catheter. 5,000 units of heparin were administered. A ?total of 100cc of Omnipaque were opened, 75cc of Omnipaque were ?administered and 25cc of Omnipaque were wasted. Radiation: Fluoro time ?was 8.6 minutes, dose area product was 46,637 mGYcm2 and air kerma was ?926 mGY. ?The patient received the following medications prior to and during the ?procedure: Aspirin (any), Clopidogrel and Unfractionated Heparin (any). ? Hemodynamics: ?Left Heart Pressures ? Resting: ? Syst Diast ? EDP ?a ?v ? m ?Ao 112 ?? 69 ?89 ?LV 112 ? 12 ? Post Contrast: ? Syst Diast ? EDP ?a ?v ? m ?Ao 101 ?? 59 ?77 ?LV 118 ? 12 ? Stenotic Valve Data: ?Aortic Valve ?Mean Gradient - 9 ? Coronary Angiography: ?Dominance: Right ?Left Main ? The left main was normal. ?Left Anterior Descending ? The left anterior descending (LAD) was normal. ?Left Circumflex ? The left circumflex (LCX) was normal. ?Right Coronary Artery ? The right coronary artery (RCA) was normal. ? Vascular Access: ?Vascular Access Management: ? Mechanical Compression of the right radial artery access site was ? performed. ? Conclusions: ?* Normal coronary arteries ? Complications/Events: ?The patient had no complications during these procedures. ? Recommendations: ?Based upon the results of this procedure, it was recommended that the ?patient be managed with medical therapy. ?The attending physician was present for the entire procedure. ?Dr. Fantasma Rubalcava M.D. was present during the moderate sedation ?intraservice time as documented by the sedation nurse. ??Case time = 00:46. ?Dr. Fantasma Rubalcava M.D. performed the coronary angiography and left ?heart catheterization. ? Fantasma Rubalcava, M.D. ? Electronically Signed by: Fantasma Rubalcava, M.D. ? Report Finalized: 03/20/2017 ??17:28 ? Report Last Ammended: 03/27/2017 ??08:21 ? Procedure Note Fantasma Rubalcava MD - 03/27/2017 [facility] Cardiac Catheterization/Intervention Report Patient Name: Mannie Padilla Procedure Date: 03/20/2017 A #: [id number] Primary Physician: Fantasma Rubalcava Case #: [id number] File Name: [id number] Catheterization Order Number: [id number] [facility] FinalReport [place], [place] Patient Name: Mannie Padilla ID#:[id number] :1965 Procedure Date: March 20, 2017 Case #: [id number] Room: 5 Case Physician: Fantasma Rubalcava M.D. Start: 15:57 Fellow: Ezio Abarca M.D. Admission:03/20/2017 Referring Physician: Willy Lewis M.D. Procedures: * Coronary Angiography * Left Heart Catheterization History Mannie Padilla is a 51 year old man. He has hypertension andmorbid obesity. The patient has a history of smoking and is still smoking.He has hypercholesterolemia managed with lipid therapy. The patient has diabetes managed with oral medication. He has unstable angina,negative troponin and a history of chest pain. The patient has a history of chronic obstructive pulmonary disease. He also has a history of an abnormal stress test. Prior to the initiation of this procedure, the patient was designated as ASA Class II. Patient Status at Catheterization: The patient presented with: unstable angina (w/i 60 days). [place] Cardiovascular Society angina class was III. This patient was onbeta blockers prior to the procedure. A SPECT stress test was performedand results were Positive and Intermediate Risk ischemia assessment. Technique: A 6 SLFr sheath was inserted in the right radial artery utilizingthe Seldinger technique. The left coronary artery was injected utilizinga 5Fr Tristan Radial catheter. A 5Fr Tristan Radial catheter was used toinject the right coronary artery. Left ventricular pressure was performedwith a 5Fr Tristan Radial catheter. 5,000 units of heparin were administered.A total of 100cc of Omnipaque were opened, 75cc of Omnipaque were administered and 25cc of Omnipaque were wasted. Radiation: Fluorotime was 8.6 minutes, dose area product was 46,637 mGYcm2 and air kermawas 926 mGY. The patient received the following medications prior to and duringthe procedure: Aspirin (any), Clopidogrel and Unfractionated Heparin(any). Hemodynamics: Left Heart Pressures Resting: Syst Diast EDP a v m Ao 112 69 89 LV 112 12 Post Contrast: Syst Diast EDP a v m Ao 101 59 77 LV 118 12 Stenotic Valve Data: Aortic Valve Mean Gradient - 9 Coronary Angiography: Dominance: Right Left Main The left main was normal. Left Anterior Descending The left anterior descending (LAD) was normal. Left Circumflex The left circumflex (LCX) was normal. Right Coronary Artery The right coronary artery (RCA) was normal. Vascular Access: Vascular Access Management: Mechanical Compression of the right radial artery access sitewas performed. Conclusions: * Normal coronary arteries Complications/Events: The patient had no complications during these procedures. Recommendations: Based upon the results of this procedure, it was recommended thatthe patient be managed with medical therapy. The attending physician was present for the entire procedure. Dr. Fantasma Rubalcava M.D. was present during the moderate sedation intraservice time as documented by the sedation nurse. Case time =00:46. Dr. Fantasma Rubalcava M.D. performed the coronary angiography and left heart catheterization. Fantasma Rubalcava M.D. Electronically Signed by: Fantasma Rubalcava M.D. Report Finalized: 03/20/2017 17:28 Report Last Ammended: 03/27/2017 08:21 Fantasma Rubalcava MD CARDIAC CATH ORDERAB LES * ECHO COMPLETE W CONTRAST (03/20/2017 4:44 PM EST) EF 65 HEART[employer] SYSTEM Anatomical Region Laterality Modality Other 03/20/2017 Narrative 03/20/2017 4:57 PM EST Procedure: ?Transthoracic Echocardiogram Patient: ?MERCHANT JENSENORE D ?? (Age): 1965(51y) Med Rec#: ? [id number] ?Sex: ?M ? Site Loc: ? [facility] ?Ht / Wt: ??170(cm)/106(kg) Pt. Loc: ?Adult Floor ? BSA: ?2.16 Study Date: ?? 03/20/2017 ?Pt. Type: Inpatient Tape: ? Referring: MARION Reading: Micheal Kent ([id number]) Die Cutter Diamond: Joselito Linares Diagnosis: *ICD-10-PCS Atherosclerotic heart disease of [place] coronary artery with unstable angina pectoris (I25.110) SUMMARY: 1. Technically limited study. 2. The left [...] There is no hemodynamically significant valve disease. Findings ? : Study Quality: ? Technically limited Left Ventricle: ? The left ventricular chamber size is normal. ?Borderline concentric left ventricular hypertrophy is observed. concentric remodeling ?There is no evidence of LVOT obstruction. ?No ventricular septal defect is visualized. ?There is normal global left ventricular systolic function. ?The quantitative left ventricular ejection fraction by biplane Huizar's method is 65%. ?There are no left ventricular segmental wall motion abnormalities. ?Doppler assessment is consistent with normal left sided filling pressure. Left Atrium: ? The left atrium is normal in size. Right Ventricle: ? Right ventricular chamber size, wall thickness, and systolic function are within normal limits. ?Pulmonary artery hypertension could not be assessed due to inadequate tricuspid regurgitation jet. ?The estimated right atrial pressure is 3 mmHg. Right Atrium: ? The right atrium appears normal. Aortic Valve: ? The aortic valve is trileaflet. The leaflets are thin with normal excursion. There is no aortic stenosis or regurgitation present. Mitral Valve: ? The mitral valve appears normal in structure and function. ?There is trace mitral regurgitation present. Tricuspid Valve: ? The tricuspid valve appears normal in structure and function. ?There is trace tricuspid regurgitation present. Pulmonic Valve: ? The pulmonic valve appears normal in structure and function. Pericardium: ? The pericardium appears normal and there is no evidence of a pericardial effusion. Aorta: ? The aortic root is normal in size. ?The ascending aorta is normal in size. Pulmonary Artery: ? The main pulmonary artery is not well visualized. Venous: ? The inferior vena cava appears normal in size. ?There is a greater than 50% respiratory change in the inferior vena cava dimension. Misc: ? There is no hemodynamically significant valve disease. ?See remainder of report for additional findings. ?Two-dimensional echo, spectral Doppler and color Doppler performed. ?Optison contrast (one 3 ml vial) was used to enhance endocardial definition. Excess contrast was discarded. Chambers 2D ?Value ?Units (Range) ? IVSd (2D) ? 1.3 ?cm ? LVPWd (2D) ?1.2 ?cm ? IVS:LVPW ratio (2D) 1.1 ?ratio ? RWT (2D) ?0.6 ?ratio ? RWT PW (2D) ? 0.6 ?ratio ? LVIDd (2D) ?3.9 ?cm ? LVIDs (2D) ?2.5 ?cm ? LVIDd (2D) index ?1.8 ?cm/m2 ? LVIDs (2D) index ?1.1 ?cm/m2 ? LV FS (2D) ?36 ? % ? EF Teichholz (2D) ?? 67 ? % ? Ao root diameter (2D3.6 ?cm (2.1 - 3.6) ? Ascending Ao ?3.5 ?cm (2 - 3.5) ? Volumes/Mass ?Value ?Units (Range) ? LA Area 4 CH ?19.6 ? cm2 (<21) ? LA ESV BP (A/L) inde24.5 ? ml/m2 ? RA AREA 4CH ? 13.6 ? cm2 ? LV ESV SP 4CH (MOD) 46.2 ? ml ? LV mass (2D) ?165.2 ?g ? LV mass (2D) index ??76.5 ? g/m2 ? Diastolic/Systolic Function ?Value ?Units (Range) ? MV E-wave Vmax ?0.8 ?m/sec ? MV deceleration nheo062.1 ?msec ? MV A-wave Vmax ?1 ?m/sec ? MV E:A ratio ?0.8 ?ratio ? LV septal e' Vmax ?? 0.1 ?m/sec ? LV lateral e' Vmax ??0.1 ?m/sec ? LV average e' Vmax ??0.1 ?m/sec ? LV E:e' septal ratio15.6 ? ratio ? LV E:e' lateral rati8.7 ?ratio ? LV average E:e' rati11.2 ? ratio ? Tricuspid Valve ?Value ?Units (Range) ? RAP ? 3 ?mmHg ? Wall Motion: Segment Name ?Rest ? Base-Anteroseptal ?? Normal ? Base-Anterior ? Normal ? Base-Anterolateral ??Normal ? Base-Posterolateral Normal ? Base-Inferior ? Normal ? Base-Inferoseptal ?? Normal ? Mid-Anteroseptal ?Normal ? Mid-Anterior ?Normal ? Mid-Anterolateral ?? Normal ? Mid-Posterolateral ??Normal ? Mid-Inferior ?Normal ? Mid-Inferoseptal ?Normal ? Addison-Septal ? Normal ? Addison-Anterior ? Normal ? Addison-Lateral ?Normal ? Addison-Inferior ? Normal ? Addison-Tip ?Normal ? This report has been electronically signed by: Micheal Kent MD ? 03/20/2017 16:56:45 Images reviewed and interpretation verified [facility] Cardiac Ultrasound Laboratory Procedure Note Micheal Kent MD - 03/20/2017 Procedure: Transthoracic Echocardiogram Patient: MERCHANT MANNIE Renteria DOB(Age): 1965(51y) [facility] Rec#: [id number] Sex: M Site Loc: [facility] [place] Ht / Wt: 170(cm)/106(kg) Pt. Loc: Adult Floor BSA: 2.16 Study Date: 03/20/2017 Pt. 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 Technically limited study. 2. The left [...] There is no hemodynamically significant valve disease. Findings : Study Quality: Technically limited Left Ventricle: The left ventricular chamber size is normal. Borderline concentric left ventricular hypertrophy is observed. concentric remodeling There is no evidence of LVOT obstruction. No ventricular septal defect is visualized. There is normal global left ventricular systolic function. The quantitative left ventricular ejection fraction by biplane Huizar's method is 65%. There are no left ventricular segmental wall motion abnormalities. Doppler assessment is consistent with normal left sided filling pressure. Left Atrium: The left atrium is normal in size. Right Ventricle: Right ventricular chamber size, wall thickness, and systolic function are within normal limits. Pulmonary artery hypertension could not be assessed due to inadequate tricuspid regurgitation jet. The estimated right atrial pressure is 3 mmHg. Right Atrium: The right atrium appears normal. Aortic Valve: The aortic valve is trileaflet. The leaflets are thin with normal excursion. There is no aortic stenosis or regurgitation present. Mitral Valve: The mitral valve appears normal in structure and function. There is trace mitral regurgitation present. Tricuspid Valve: The tricuspid valve appears normal in structure and function. There is trace tricuspid regurgitation present. Pulmonic Valve: The pulmonic valve appears normal in structure and function. Pericardium: The pericardium appears normal and there is no evidence of a pericardial effusion. Aorta: The aortic root is normal in size. The ascending aorta is normal in size. Pulmonary Artery: The main pulmonary artery is not well visualized. Venous: The inferior vena cava appears normal in size. There is a greater than 50% respiratory change in the inferior vena cava dimension. Misc: There is no hemodynamically significant valve disease. See remainder of report for additional findings. Two-dimensional echo, spectral Doppler and color Doppler performed. Optison contrast (one 3 ml vial) was used to enhance endocardial definition. Excess contrast was discarded. Chambers 2D Value Units (Range) IVSd (2D) 1.3 cm LVPWd (2D) 1.2 cm IVS:LVPW ratio (2D) 1.1 ratio RWT (2D) 0.6 ratio RWT PW (2D) 0.6 ratio LVIDd (2D) 3.9 cm LVIDs (2D) 2.5 cm LVIDd (2D) index 1.8 cm/m2 LVIDs (2D) index 1.1 cm/m2 LV FS (2D) 36 % EF Teichholz (2D) 67 % Ao root diameter (2D3.6 cm (2.1 - 3.6) Ascending Ao 3.5 cm (2 - 3.5) Volumes/Mass Value Units (Range) LA Area 4 CH 19.6 cm2 (<21) LA ESV BP (A/L) inde24.5 ml/m2 RA AREA 4CH 13.6 cm2 LV ESV SP 4CH (MOD) 46.2 ml LV mass (2D) 165.2 g LV mass (2D) index 76.5 g/m2 Diastolic/Systolic Function Value Units (Range) MV E-wave Vmax 0.8 m/sec MV deceleration [id number] msec MV A-wave Vmax 1 m/sec MV E:A ratio 0.8 ratio LV septal e' Vmax 0.1 m/sec LV lateral e' Vmax 0.1 m/sec LV average e' Vmax 0.1 m/sec LV E:e' septal ratio15.6 ratio LV E:e' lateral rati8.7 ratio LV average E:e' rati11.2 ratio Tricuspid Valve Value Units (Range) RAP 3 mmHg Wall Motion: Segment Name Rest Base-Anteroseptal Normal Base-Anterior Normal Base-Anterolateral Normal Base-Posterolateral Normal Base-Inferior Normal Base-Inferoseptal Normal Mid-Anteroseptal Normal Mid-Anterior Normal Mid-Anterolateral Normal Mid-Posterolateral Normal Mid-Inferior Normal Mid-Inferoseptal Normal Addison-Septal Normal Addison-Anterior Normal Addison-Lateral Normal Addison-Inferior Normal Addison-Tip Normal This report has been electronically signed by: Micheal Kent MD 03/20/2017 16:56:45 Images reviewed and interpretation verified [facility] Cardiac Ultrasound Laboratory Jose Olivares MD ECHO ORDERABLES * EKG 12 Lead (03/20/2017 3:05 PM EST) Ventricular rate 62 BPM MUSE SYSTEM Atrial Rate 62 BPM MUSE SYSTEM P-R Interval 146 ms MUSE SYSTEM QRS Duration 84 ms MUSE SYSTEM Q-T Interval 420 ms MUSE SYSTEM QTC Calculated (Bezet) 426 ms MUSE SYSTEM Calculated P [place] 14 degrees MUSE SYSTEM Calculated R [place] 25 degrees MUSE SYSTEM Calculated T [place] 27 degrees MUSE SYSTEM INTERPRETATION Normal sinus rhythm Normal ECG No previous ECGs available Confirmed by Jose Olivares MD ([id number]) on 03/20/2017 5:30:25 PM MUSE SYSTEM 03/20/2017 3:05 PM EST 03/20/2017 5:30 PM EST Jose Olivares MD ECG ORDERABLES MUSE SYSTEM * (ABNORMAL) Differential, Automated (03/20/2017 2:54 PM EST) Neutrophils % 62.3 % [facility] Neutr Abs (ANC) 6.48(H) 1.70 - 6.10 x10(3)/mc L [facility] Lymphocytes % 21.8 % [facility] Lymphocytes Abs 2.3 0.9 - 3.2 x10(3)/mc L [facility] Monocytes % 10.8 % [facility] Monocyte Abs 1.1(H) 0.3 - 0.9 x10(3)/[facility] LABORATORY Eosinophils % 2.6 % [facility] Eosinophils Abs 0.3 0.0 - 0.4 x10(3)/[facility]ATORY Basophils % 1.1 % [facility] Basophils Abs 0.1 0.0 - 0.1 x10(3)/[facility] LABORATORY Immature Gran % 1.40 % [facility] Comment: Immature granulocytes(IG's)percentage and absolute count will include metamyelocytes, myelocytes, and promyelocytes. Blood smears from CBCs yielding IG's will be scanned manually for concordance. If this scan disagrees with the automated IG or if promyelocytes are noted, a manual differential will be performed. Chanelle Gran Abs 0.15(H) 0.00 - 0.04 x10(3)/[facility] LABORATORY Blood specimen (specimen) 03/20/2017 2:54 PM EST 03/20/2017 3:00 PM EST Narrative Resulting Agency Comment Spec In Lab Noelle Hearn MD HEMATOLOGY ORDERABLE S [facility] [place] [address] * (ABNORMAL) Hemogram (03/20/2017 2:54 PM EST) WBC 10.4(H) 4.0 - 9.5 x10(3)/[facility] LABORATORY RBC 4.79 4.58 - 5.54 x10(6)/[facility]ORY Hemoglobin 14.5 13.7 - 16.5 gm/dL [facility] Hematocrit 41.9 40.5 - 48.5 % [facility] MCV 87.5 82.9 - 93.1 fL [facility] MCH 30.3 27.5 - 32.1 pg [facility] MCHC 34.6 32.0 - 35.7 gm/dL [facility] Platelets 188 145 - 357 x10(3)/[facility] LABORATORY RDWSD 40.9 36.0 - 45.0 fL [facility] RDWCV 12.9 11.4 - 13.8 % [facility] MPV 10.5 7.6 - 12.9 fL [facility] nRBC % Auto 0.0 % [facility] nRBC Abs Auto 0.000 0.000 - 0.000 x10(3)/[facility]ORATORY Blood specimen (specimen) 03/20/2017 2:54 PM EST 03/20/2017 3:00 PM EST Narrative Resulting Agency Comment Spec In Lab Noelle Hearn MD HEMATOLOGY ORDERABLE S Performing Organization Address City/State/[facility] Co de Phone Number [facility] [place] [address] * Cardiac Enzymes (LEB/CGP) (03/20/2017 2:54 PM EST) Troponin-T <0.01 0.00 - 0.00 ng/mL [facility] Comment: The 99th percentile for Troponin T is less than 0.01 ng/mL, any detectable cTnT concentration using this assay should be considered elevated. According to the third universal definition of myocardial infarction the following criteria with a clinical presentation consistent with acute myocardial ischemia meets the diagnosis for a myocardial infarction (RI). Detection of a rise and/or fall of cTnT, with at least one value greater than the 99th percentile (> or = 0.01) and with at least one of the following ?? Symptoms of ischemia ?? New or presumed new significant OX-[id number]-L wave (ST-T) changes or new left bundle branch block (LBBB) ?? Development of pathologic Q waves in the ECG ?? Imaging evidence of new loss of viable myocardium or new regional wall motion abnormality ?? Identification of an intracoronary thrombus by angiography or autopsy Samples for cTnT testing should be obtained serially upon first assessment and again 3 to 6 hours later. If the clinical suspicion is high and previous samples have been negative an additional sample may be indicated. Reference: Third [place] Definition of Myocardial Infarction. Journal of the [place] [employer] 2012;60:1581-98 CK, Total 116 0 - 200 unit/L [facility] Blood specimen (specimen) 03/20/2017 2:54 PM EST 03/20/2017 3:00 PM EST Narrative Resulting Agency Comment Spec In Lab Jose Olivares MD CHEMISTRY ORDERABLES Performing Organization Address [facility] de Phone Number [facility] [address] * Prothrombin Time (03/20/2017 2:54 PM EST) Pathologist [facility] PT 13.1 11.8 - 14.0 sec [facility] INR 1.0 0.9 - 1.1 [facility] Comment: An INR <2.0 indicates adequate procoagulant activity for hemostasis in most patients without underlying bleeding disorders, though the INR may not adequately reflect hemostatic capacity in patients with liver disease and synthetic impairment. The recommended target INR range for therapeutic anticoagulation is 2.0 ? 3.0 for most applications, though lower and higher ranges may be appropriate depending on clinical circumstances. Blood specimen (specimen) 03/20/2017 2:54 PM EST 03/20/2017 3:00 PM EST Narrative Resulting Agency Comment Spec In Lab Jose Olivares MD HEMATOLOGY ORDERABLE S Performing Organization Address [facility] de Phone Number [facility] [place] [address] * Hepatic Function Panel (03/20/2017 2:54 PM EST) Total Protein 6.9 6.1 - 8.0 gm/dL [facility] Albumin 4.2 3.2 - 5.2 gm/dL [facility] AST 17 0 - 39 unit/L [facility] ALT 27 0 - 55 unit/L [facility] Alk Phos 68 40 - 120 unit/L [facility] Total Bilirubin 0.4 0.2 - 1.3 mg/dL [facility] Bili, Direct 0.1 0.0 - 0.3 mg/dL [facility] Blood specimen (specimen) 03/20/2017 2:54 PM EST 03/20/2017 3:00 PM EST Narrative Resulting Agency Comment Spec In Lab Jose Olivares MD CHEMISTRY ORDERABLES Performing Organization Address City/[facility] Co de Phone Number [facility] [place] [address] * pro-Brain Natriuretic Peptide (03/20/2017 2:54 PM EST) ProBNP 14 <=125 pg/mL [facility] Blood specimen (specimen) 03/20/2017 2:54 PM EST 03/20/2017 3:00 PM EST Narrative Resulting Agency Comment Spec In Lab Jose Olivares MD CHEMISTRY ORDERABLES Performing Organization Address [facility] Co de Phone Number [facility] [place] [address] * TSH (03/20/2017 2:54 PM EST) TSH 0.62 0.27 - 4.20 mlU/ML [facility] Blood specimen (specimen) 03/20/2017 2:54 PM EST 03/20/2017 3:00 PM EST Narrative Resulting Agency Comment Spec In Lab Jose Olivares MD CHEMISTRY ORDERABLES Performing Organization Address [facility] Co de Phone Number [facility] [place] [address] * Phosphorus (03/20/2017 2:54 PM EST) Phosphorus 3.3 2.5 - 4.5 mg/dL [facility] Blood specimen (specimen) 03/20/2017 2:54 PM EST 03/20/2017 3:00 PM EST Narrative Resulting Agency Comment Spec In Lab Jose Olivares MD CHEMISTRY ORDERABLES Performing Organization Address City/[facility]/ZIP Co de Phone Number [facility] [place] [address] * Magnesium (03/20/2017 2:54 PM EST) Magnesium 0.85 0.69 - 1.07 mmol/L [facility] Blood specimen (specimen) 03/20/2017 2:54 PM EST 03/20/2017 3:00 PM EST Narrative Resulting Agency Comment Spec In Lab Jose Olivares MD CHEMISTRY ORDERABLES Performing Organization Address [facility] de Phone Number [facility] [place] [address] * Basic Metabolic Panel (non-fasting) (03/20/2017 2:54 PM EST) Glucose Lvl 90 65 - 199 mg/dL [facility] Comment:Diabetes: >=200 mg/d L plus symptoms BUN 19 10 - 20 mg/dL [facility] Creatinine 1.22 0.80 - 1.50 mg/dL [facility] Sodium 140 135 - 145 mmol/L [facility] Potassium 3.8 3.5 - 5.0 mmol/L [facility] Comment: Please note: ??Patients with WBC >100,000 may have falsely elevated Potassium levels. ??For accurate Potassium quantification in these patients send serum separator tube (gold top) for subsequent determinations. ??Contact the Clinical Chemistry Laboratory if there are any questions. Chloride 103 98 - 107 mmol/L [facility] CO2 22 22 - 31 mmol/L [facility] Anion Gap 15 5 - 15 mmol/L [facility] Calcium 9.1 8.5 - 10.5 mg/dL [facility] Estimated GFR >60 >=60 [facility] Comment: The reported eGFR should be multiplied by 1.2 for patients. The MDRD is not an appropriate measure of renal function for patients with body mass extremes or in patients with acute kidney failure. http://[email or web address]/DHnkdep [email or web address]://[email or web address]/DHMCnkf Blood specimen (specimen) 03/20/2017 2:54 PM EST 03/20/2017 3:00 PM EST Narrative Resulting Agency Comment Spec In Lab Jose Olivares MD CHEMISTRY ORDERABLES Performing Organization Address [facility] de Phone Number [facility] [place] [address] * (ABNORMAL) APTT (03/20/2017 2:54 PM EST) [facility] PTT 43(H) 25 - 35 sec [facility] Comment: The recommended therapeutic range for full dose, unfractionated heparin at [facility] is 80 ? 114 seconds. The use of the anti-Xa (heparin) level rather than the PTT is recommended for monitoring anticoagulation intensity in critically ill patients receiving unfractionated heparin by continuous IV infusion. Blood specimen (specimen) 03/20/2017 2:54 PM EST 03/20/2017 3:00 PM EST Narrative Resulting Agency Comment Spec In Lab Jose Olivares MD HEMATOLOGY ORDERABLE S Performing Organization Address [facility] Phone Number [facility] [place] [address] * SCAN DOC: CARDIAC CATH (03/20/2017 12:00 AM EST) Anatomical Region Laterality Modality Cardiac Other Narrative 03/20/2017 12:00 AM EST Ordered by an unspecified provider. Scanning Provider MEDIA MGR SCAN EXT O RDR/RSLT documented in this encounter Visit Diagnoses Diagnosis Atherosclerosis of [place] coronary artery of [place] heart with unstable angina pectoris Unstable angina Intermediate coronary syndrome documented in this encounter Admitting Diagnoses Diagnosis Unstable angina Intermediate coronary syndrome documented in this encounter Administered Medications Inactive Administered Medications - up to 3 most recent administrations Medication Order MAR Action Action Date Dose Rate Site amLODIPine (NORVASC) tablet 2.5 mg 2.5 mg, Oral, DAILY, First dose on Thu03/21/17 at 0945, Until Discontinued, Routine Given 03/21/2017 9:49 AM EST 2.5 mg aspirin EC tablet 81 mg 81 mg, Oral, DAILY, First dose on Thu03/21/17 at 0945, Until Discontinued, Routine Given 03/21/2017 9:49 AM EST 81 mg atorvastatin (LIPITOR) tablet 20 mg 20 mg, Oral, EVERY EVENING, First dose (after last modification) on Thu03/21/17 at 1700, Until Discontinued, Routine atorvastatin (LIPITOR) tablet 80 mg 80 mg, Oral, EVERY EVENING, First dose on Thu03/20/17 at 1700, Until Discontinued, Routine Given 03/20/2017 9:04 PM EST 80 mg dextrose 50% IV syringe 25-50 mL 25-50 mL (12.5-25 g), Intravenous, EVERY 1 HOUR PRN, Starting on Thu03/20/17 at 1443, Until 03/21/17 at 1528, Low blood sugar, For BG 50-70: 120 mL Juice or Regular (not diet) soda OR 12.5 gram (25 mL) Dextrose 50% IV OR, if no IV access, 1 mg Glucagon IM. Recheck BG in 30 minutes. May repeat juice, dextrose or glucagon once per episode For BG less than 50: 240 mL Juice or Regular (not diet) soda OR 25 grams (50 mL) Dextrose 50% IV OR, if no IV access, 1 mg Glucagon IM. Recheck BG in 30 minutes. May repeat juice, dextrose, or glucagon once per episode. To avoid extravasation, push Dextrose 50% SLOWLY (3 mL over 1 minute) in a patent, running IV, preferably a central line. For persistent hypoglycemia, consider longer-acting treatment for the duration of the active insulin., Routine glucagon (human recombinant) injection SolR 1 mg 1 mg, Intramuscular, EVERY 1 HOUR PRN, Starting on Thu03/20/17 at 1443, Until 03/21/17 at 1528, Low blood sugar, For BG 50-70: 120 mL Juice or Regular (not diet) soda OR 12.5 gram (25 mL) Dextrose 50% IV OR, if no IV access, 1 mg Glucagon IM. Recheck BG in 30 minutes. May repeat juice, dextrose or glucagon once per episode For BG less than 50: 240 mL Juice or Regular (not diet) soda OR 25 grams (50 mL) Dextrose 50% IV OR, if no IV access, 1 mg Glucagon IM. Recheck BG in 30 minutes. May repeat juice, dextrose, or glucagon once per episode. To avoid extravasation, push Dextrose 50% SLOWLY (3 mL over 1 minute) in a patent, running IV, preferably a central line. For persistent hypoglycemia, consider longer-acting treatment for the duration of the active insulin., Routine heparin (porcine) 25,000 unit/500 mL (50 unit/mL) infusion 1 dose, Starting on Thu03/20/17 at 1336, Until Thu03/20/17 at 1443, ANTOINETTE TERAN: cabinet override heparin 25,000 units in dextrose 5% 500 mL infusion 0-5,000 Units/hr (0-100 mL/hr), Intravenous, CONTINUOUS, Starting on Thu03/20/17 at 1500, Until Thu03/20/17 at 1715, BEGIN infusion at 1,000 units per hr (12 units/kg/hr). MAX INITIAL infusion rate is 1,000 units/hr. Target PTT = 80 - 114 seconds Start adjustment schedule 6 hours after starting infusion. If PTT is: - less than 60 seconds, Administer PRN bolus and increase rate by 400 units per hr (4 units/kg/hr) - 60 - 79 seconds, Administer PRN bolus and increase rate by 200 units per hr (2 units/kg/hr) - 80 - 114 seconds, No Change - 115 - 129 seconds, decrease rate by 100 units per hr (1 units/kg/hr) - 130 - 145 seconds, stop infusion for 30 minutes, then decrease rate by 200 units per hr (2 units/kg/hr) - Greater than 145 seconds, stop infusion for 60 minutes, then decrease rate by 300 units per hour (3 units/kg/hr) Repeat aPTT 6 hours after initiating heparin. Then 6 hours after each dose adjustment. When 2 consecutive aPTT within target range of 80 - 114 seconds, change aPTT to once every 24 hours with A.M. labs while on heparin. RN to order required aPTT - Per Protocol, Routine, Indication: ACS (STEMI vs NSTEMI vs UA) New Bag 03/20/2017 3:17 PM EST 1,000 Units/hr 20 mL/hr insulin lispro (humaLOG) VIAL injection 1-4 Units 1-4 Units, Subcutaneous, 3 TIMES DAILY BEFORE MEALS, First dose on Thu03/20/17 at 1630, Until Discontinued, CORRECTION BOLUS Sensitive to insulin lean patient or total daily dose of all insulin needed to achieve glycemic control less than 30 units BG 140 - 160 Give 1 unit BG 161 - 200 Give 2 units BG 201 - 240 Give 3 units BG greater than 240, give 4 units and recheck BG in 2 hours. If less than 240 after two hours, give no insulin and resume prior schedule. If BG remains greater than 240, repeat 4 units (no more than three times) & call for new basal insulin orders. DO NOT hold if NPO, unless specifically told to do so., Routine lisinopril (PRINIVIL;ZESTRIL) tablet 30 mg 30 mg, Oral, DAILY, First dose (after last modification) on Thu03/22/17 at 0900, Until Discontinued, Routine lisinopril (PRINIVIL;ZESTRIL) tablet 40 mg 40 mg, Oral, DAILY, First dose on Thu03/21/17 at 0900, Until Discontinued, Routine Given 03/21/2017 8:56 AM EST 40 mg nicotine (NICODERM CQ) 21 mg/24 hr patch 21 mg 21 mg, Transdermal, DAILY, First dose on Thu03/20/17 at 1500, Until Discontinued, Routine Patch Applied 03/21/2017 8:57 AM EST 21 mg 10- Arm Upper (Right) Patch Applied 03/20/2017 3:19 PM EST 21 mg 09- Arm Upper (Left) nicotine (NICODERM CQ) 21 mg/24 hr patch Patch Removal Transdermal, DAILY, First dose on Thu03/21/17 at 0900, Until Discontinued, Remove nicotine 21 mg/24 hr patch nicotine (NICODERM CQ) 21 mg/24 hr patch Patch Verification Transdermal, 2 TIMES DAILY, First dose on Thu03/21/17 at 0900, Until Discontinued, Verify nicotine 21 mg/24 hr patch pantoprazole (PROTONIX) tablet 40 mg 40 mg, Oral, DAILY, First dose on Thu03/21/17 at 0900, Until Discontinued Given 03/21/2017 8:57 AM EST 40 mg perflutren protein-A microspheres (OPTISON) 0.22 mg/mL injection 1.5 mL 1.5 mL, Intravenous, ONCE PRN, 1 dose, Starting on Thu03/20/17 at 1645, Until Thu03/20/17 at 1600, for enhancement of sub-optimal echo images, Echo Lab (Intra-Procedure), Routine Given 03/20/2017 4:00 PM EST 1.5 mLs sodium chloride 0.9 % flush 5 mL 5 mL, Intravenous, 2 TIMES DAILY, First dose on Thu03/20/17 at 2100, Until Discontinued, Routine Given 03/21/2017 8:59 AM EST 5 mLs Given 03/20/2017 9:00 PM EST 5 mLs sodium chloride 0.9% infusion 100 mL/hr, Intravenous, CONTINUOUS, Starting on Thu03/20/17 at 1745, Until Thu03/20/17 at 2044, Recovery (Recovery-Hospital Unit) New Bag 03/20/2017 5:28 PM EST 100 mL/hr 100 mL /hr documented in this encounter Active and Recently Administered Medications Times are shown in EST. Scheduled Medication Order 03/19/2017 03/20/2017 03/21/2017 amLODIPine (NORVASC) tablet 2.5 mg 2.5 mg, Oral, DAILY, First dose on 03/21/17 at 0945, Until Discontinued, Routine 0949 (Given - Provid er: Effie Young RN) aspirin EC tablet 81 mg 81 mg, Oral, DAILY, First dose on 03/21/17 at 0945, Until Discontinued, Routine 0949 (Given - Provid er: Effie Young RN) atorvastatin (LIPITOR) tablet 20 mg 20 mg, Oral, EVERY EVENING, First dose (after last modification) on 03/21/17 at 1700, Until Discontinued, Routine atorvastatin (LIPITOR) tablet 80 mg (CANCELED) 80 mg, Oral, EVERY EVENING, First dose on Thu03/20/17 at 1700, Until Discontinued, Routine 1616 (MAR Hold - Provider: Admin Adt - Reason: Transfer to a Procedural area)1700 (Automatically Held - Provider: Admin Adt)1736 (MAR Unhold - Provider: Admin Adt)2104 (Given - Provider: Azalia Tierney RN) insulin lispro (humaLOG) VIAL injection 1-4 Units(Linked Group 1) 1-4 Units, Subcutaneous, 3 TIMES DAILY BEFORE MEALS, First dose on Thu03/20/17 at 1630, Until Discontinued, CORRECTION BOLUS Sensitive to insulin lean patient or total daily dose of all insulin needed to achieve glycemic control less than 30 units BG 140 - 160 Give 1 unit BG 161 - 200 Give 2 units BG 201 - 240 Give 3 units BG greater than 240, give 4 units and recheck BG in 2 hours. If less than 240 after two hours, give no insulin and resume prior schedule. If BG remains greater than 240, repeat 4 units (no more than three times) & call for new basal insulin orders. DO NOT hold if NPO, unless specifically told to do so., Routine 1616 (MAR Hold - Provider: Admin Adt - Reason: Transfer to a Procedural area)1630 (Automatically Held - Provider: Admin Adt)1736 (MAR Unhold - Provider: Admin Adt) 0730 (Not Given - Provider: Effie Young RN - Reason: Order parameters not met)1130 (Not Given - Provider: Effie Young RN - Reason: Order parameters not met) lisinopril (PRINIVIL;ZESTRIL) tablet 30 mg 30 mg, Oral, DAILY, First dose (after last modification) on Thu03/22/17 at 0900, Until Discontinued, Routine lisinopril (PRINIVIL;ZESTRIL) tablet 40 mg (CANCELED) 40 mg, Oral, DAILY, First dose on Thu03/21/17 at 0900, Until Discontinued, Routine 1616 (MAR Hold - Provider: Admin Adt - Reason: Transfer to a Procedural area)1736 (MAR Unhold - Provider: Admin Adt) 0856 (Given - Provider: Effie Young RN) nicotine (NICODERM CQ) 21 mg/24 hr patch 21 mg(Linked Group 2) 21 mg, Transdermal, DAILY, First dose on Thu03/20/17 at 1500, Until Discontinued, Routine 1519 (Patch Applied - Provider: Effie Young RN)1616 (MAR Hold - Provider: Admin Adt - Reason: Transfer to a Procedural area)1736 (MAR Unhold - Provider: Admin Adt) 0857 (Patch Applied - Provider: Effie Young RN) nicotine (NICODERM CQ) 21 mg/24 hr patch Patch Removal(Linked Group 2) Transdermal, DAILY, First dose on 03/21/17 at 0900, Until Discontinued, Remove nicotine 21 mg/24 hr patch 1616 ([facility] Hold - Provider: Admin Adt - Reason: Transfer to a Procedural area)1736 ([facility] [place] Unhold - Provider: Admin Adt) 0900 (Patch Removed - Provider: Effie Young RN) nicotine (NICODERM CQ) 21 mg/24 hr patch Patch Verification(Linked Group 2) Transdermal, 2 TIMES DAILY, First dose on 03/21/17 at 0900, Until Discontinued, Verify nicotine 21 mg/24 hr patch 1616 ([facility] [place] Hold - Provider: Admin Adt - Reason: Transfer to a Procedural area)1736 ([facility] [place] Unhold - Provider: Admin Adt) 0900 (Patch (dose and location) verified - Provider: Effie Young RN) pantoprazole (PROTONIX) tablet 40 mg 40 mg, Oral, DAILY, First dose on 03/21/17 at 0900, Until Discontinued 1616 ([facility] Hold - Provider: Admin Adt - Reason: Transfer to a Procedural area)1736 ([facility] [place] Unhold - Provider: Admin Adt) 0857 (Given - Provider: Effie Young RN) PARoxetine (PAXIL) tablet 20 mg 20 mg, Oral, NIGHTLY, First dose on 03/21/17 at 2100, Until Discontinued, Routine 1616 ([facility] [place] Hold - Provider: Admin Adt - Reason: Transfer to a Procedural area)1736 ([facility] [place] Unhold - Provider: Admin Adt) sodium chloride 0.9 % flush 5 mL 5 mL, Intravenous, 2 TIMES DAILY, First dose on Thu03/20/17 at 2100, Until Discontinued, Routine 1616 ([facility] [place] Hold - Provider: Admin Adt - Reason: Transfer to a Procedural area)1736 ([facility] [place] Unhold - Provider: Admin Adt)2100 (Given - Provider: Azalia Tierney RN) 0859 (Given - Provider: Effie Young RN) Continuous Medication Order 03/19/2017 03/20/2017 03/21/2017 heparin 25,000 units in dextrose 5% 500 mL infusion (CANCELED)(Linked Group 3) 0-5,000 Units/hr (0-100 mL/hr), Intravenous, CONTINUOUS, Starting on Thu03/20/17 at 1500, Until Thu03/20/17 at 1715, BEGIN infusion at 1,000 units per hr (12 units/kg/hr). MAX INITIAL infusion rate is 1,000 units/hr. Target PTT = 80 - 114 seconds Start adjustment schedule 6 hours after starting infusion. If PTT is: - less than 60 seconds, Administer PRN bolus and increase rate by 400 units per hr (4 units/kg/hr) - 60 - 79 seconds, Administer PRN bolus and increase rate by 200 units per hr (2 units/kg/hr) - 80 - 114 seconds, No Change - 115 - 129 seconds, decrease rate by 100 units per hr (1 units/kg/hr) - 130 - 145 seconds, stop infusion for 30 minutes, then decrease rate by 200 units per hr (2 units/kg/hr) - Greater than 145 seconds, stop infusion for 60 minutes, then decrease rate by 300 units per hour (3 units/kg/hr) Repeat aPTT 6 hours after initiating heparin. Then 6 hours after each dose adjustment. When 2 consecutive aPTT within target range of 80 - 114 seconds, change aPTT to once every 24 hours with A.M. labs while on heparin. RN to order required aPTT - Per Protocol, Routine, Indication: ACS (STEMI vs NSTEMI vs UA) 1517 (New Bag - Provider: Effie Young RN)1616 ([facility] Hold - Provider: Admin Adt - Reason: Transfer to a Procedural area)1715 ([facility] Unhold - Provider: Admin Adt) sodium chloride 0.9% infusion () 100 mL/hr, Intravenous, CONTINUOUS, Starting on Thu03/20/17 at 1745, Until Thu03/20/17 at 2044, Recovery (Recovery-Hospital Unit) 1728 (New Bag - Provider: Valentine Matt RN) PRN Medication Order 03/19/2017 03/20/2017 03/21/2017 acetaminophen (TYLENOL) tablet 650 mg 650 mg, Oral, EVERY 4 HOURS PRN, Starting on Thu03/20/17 at 1443, Until Thu03/21/17 at 1528, Pain, Headaches, Maximum dose of acetaminophen is 4000 mg from all sources in 24 hours., Routine 1616 (MAR Hold - Provider: Admin Adt - Reason: Transfer to a Procedural area)1736 ([facility] [place] Unhold - Provider: Admin Adt) dextrose 50% IV syringe 25-50 mL(Linked Group 4) 25-50 mL (12.5-25 g), Intravenous, EVERY 1 HOUR PRN, Starting on Thu03/20/17 at 1443, Until 03/21/17 at 1528, Low blood sugar, For BG 50-70: 120 mL Juice or Regular (not diet) soda OR 12.5 gram (25 mL) Dextrose 50% IV OR, if no IV access, 1 mg Glucagon IM. Recheck BG in 30 minutes. May repeat juice, dextrose or glucagon once per episode For BG less than 50: 240 mL Juice or Regular (not diet) soda OR 25 grams (50 mL) Dextrose 50% IV OR, if no IV access, 1 mg Glucagon IM. Recheck BG in 30 minutes. May repeat juice, dextrose, or glucagon once per episode. To avoid extravasation, push Dextrose 50% SLOWLY (3 mL over 1 minute) in a patent, running IV, preferably a central line. For persistent hypoglycemia, consider longer-acting treatment for the duration of the active insulin., Routine 1616 ([facility] [place] Hold - Provider: Admin Adt - Reason: Transfer to a Procedural area)1736 ([facility] [place] Unhold - Provider: Admin Adt) docusate sodium (COLACE) capsule 100 mg 100 mg, Oral, DAILY PRN, Starting on Thu03/20/17 at 1443, Until 03/21/17 at 1528, Constipation, Routine 1616 ([facility] [place] Hold - Provider: Admin Adt - Reason: Transfer to a Procedural area)1736 ([facility] [place] Unhold - Provider: Admin Adt) fentaNYL 50 mcg/mL multi-dose injection (CANCELED) ONCE PRN, Starting on Thu03/20/17 at 1634, Until 03/20/17 at 1715, Intra-Operative (Intra-Procedure), Routine 1634 (Given - Provider: Brenda Angelo, CHATO)1642 (Given - Provider: Brenda Angelo, RN) glucagon (human recombinant) injection SolR 1 mg(Linked Group 4) 1 mg, Intramuscular, EVERY 1 HOUR PRN, Starting on Thu03/20/17 at 1443, Until 03/21/17 at 1528, Low blood sugar, For BG 50-70: 120 mL Juice or Regular (not diet) soda OR 12.5 gram (25 mL) Dextrose 50% IV OR, if no IV access, 1 mg Glucagon IM. Recheck BG in 30 minutes. May repeat juice, dextrose or glucagon once per episode For BG less than 50: 240 mL Juice or Regular (not diet) soda OR 25 grams (50 mL) Dextrose 50% IV OR, if no IV access, 1 mg Glucagon IM. Recheck BG in 30 minutes. May repeat juice, dextrose, or glucagon once per episode. To avoid extravasation, push Dextrose 50% SLOWLY (3 mL over 1 minute) in a patent, running IV, preferably a central line. For persistent hypoglycemia, consider longer-acting treatment for the duration of the active insulin., Routine 161 (MAR Hold - Provider: Admin Adt - Reason: Transfer to a Procedural area)173 (MAR Unhold - Provider: Admin Adt) heparin (porcine) injection (CANCELED) ONCE PRN, Starting on Thu03/20/17 at 1652, Until Thu03/20/17 at 1715, Cath (Intra-Procedure), Routine 165 (Given - Provider: Ezio Abarca MD) iohexol (OMNIPAQUE) 350 mg/mL solution (CANCELED) ONCE PRN, Starting on Thu03/20/17 at 1715, Until Thu03/20/17 at 1715, Cath (Intra-Procedure), Routine 171 (Given - Provider: Ezio Abarca MD) lidocaine (XYLOCAINE) 10 mg/mL (1 %) injection 3 mg 3 mg (0.3 mL), Subcutaneous, ONCE PRN, 1 dose, Starting on Thu03/20/17 at 1443, Until 03/21/17 at 1528, for discomfort with PIV insertion, Routine 1616 (MAR Hold - Provider: Admin Adt - Reason: Transfer to a Procedural area)1736 (MAR Unhold - Provider: Admin Adt) midazolam (PF) (VERSED) 1 mg/mL multi-dose injection (CANCELED) ONCE PRN, Starting on Thu03/20/17 at 1634, Until Thu03/20/17 at 1715, Cath (Intra-Procedure), Routine 1634 (Given - Provider: Brenda Angelo, CHATO)1642 (Given - Provider: Madeleine Love RN) nicotine polacrilex (COMMIT) lozenge 2 mg 2 mg, Buccal, EVERY 1 HOUR PRN, Starting on 03/20/17 at 1443, Until 03/21/17 at 1528, Smoking cessation, Maximum 20 Lozenges per day. If multiple PRN medications for smoking cessation, may give gum concomitant with lozenge., Routine 1616 (MAR Hold - Provider: Admin Adt - Reason: Transfer to a Procedural area)1736 (MAR Unhold - Provider: Admin Adt) nitroGLYcerin (NITROSTAT) SL tablet 0.4 mg 0.4 mg, Sublingual, EVERY 5 MIN PRN, Starting on Thu03/20/17 at 1443, Until 03/21/17 at 1528, Chest pain, May repeat every 5 minutes for a total of three doses. Notify provider if chest pain not relieved with nitroglycerin. Do not administer nitroglycerin if the patinet has received or taken phosphodiesterase (PDE-5) inhibitors such as sildenafil, tadalafil or vardenafil within the last 24 to 72 hours., Routine 1616 (MAR Hold - Provider: Admin Adt - Reason: Transfer to a Procedural area)1736 (MAR Unhold - Provider: Admin Adt) nitroGLYcerin 100 mcg/mL intracoronary dilution (CANCELED) ONCE PRN, Starting on Thu03/20/17 at 1645, Until 03/20/17 at 1715, Cath (Intra-Procedure), Routine 1645 (Given - Provider: Ezio Abarca MD) perflutren protein-A microspheres (OPTISON) 0.22 mg/mL injection 1.5 mL (COMPLETED) 1.5 mL, Intravenous, ONCE PRN, 1 dose, Starting on Thu03/20/17 at 1645, Until 03/20/17 at 1600, for enhancement of sub-optimal echo images, Echo Lab (Intra-Procedure), Routine 1600 (Given - Provider: Joselito Linares) sodium chloride 0.9 % flush 5-20 mL 5-20 mL, Intravenous, EVERY 1 MIN PRN, Starting on Thu03/20/17 at 1443, Until 03/21/17 at 1528, flush, Flush pertains to all indwelling lines. Flush per protocol found in the job aid using the link provided on this medication record., Routine 1616 ([facility]R Hold - Provider: Admin Adt - Reason: Transfer to a Procedural area)173 ([facility] Unhold - Provider: Admin Adt) verapamil (ISOPTIN) injection (CANCELED) ONCE PRN, Starting on Thu03/20/17 at 1647, Until Thu03/20/17 at 1715, Administer over 2 Minutes, Cath (Intra-Procedure) 1647 (Given - Provider: Ezio Abarca MD) Linked Groups Order Group 1: POCT Fingerstick Glucose (CANCELED) Routine, 4 TIMES DAILY BEFORE MEALS & AT BEDTIME, First occurrence on Thu03/20/17 at 1700, Until Specified, Consider choosing FOUR TIMES A DAY BEFORE MEALS AND AT BEDTIME as frequency for: Patients who have good hypoglycemia awareness: -Patients who are eating meals during the day and sleeping at night -Patient who are otherwise stable And insulin lispro (humaLOG) VIAL injection 1-4 UnitsJump to med 1-4 Units, Subcutaneous, 3 TIMES DAILY BEFORE MEALS, First dose on Thu03/20/17 at 1630, Until Discontinued, CORRECTION BOLUS Sensitive to insulin lean patient or total daily dose of all insulin needed to achieve glycemic control less than 30 units BG 140 - 160 Give 1 unit BG 161 - 200 Give 2 units BG 201 - 240 Give 3 units BG greater than 240, give 4 units and recheck BG in 2 hours. If less than 240 after two hours, give no insulin and resume prior schedule. If BG remains greater than 240, repeat 4 units (no more than three times) & call for new basal insulin orders. DO NOT hold if NPO, unless specifically told to do so., Routine Group 2: nicotine (NICODERM CQ) 21 mg/24 hr patch 21 mgJump to med 21 mg, Transdermal, DAILY, First dose on Thu03/20/17 at 1500, Until Discontinued, Routine And nicotine (NICODERM CQ) 21 mg/24 hr patch Patch VerificationJump to med Transdermal, 2 TIMES DAILY, First dose on Thu03/21/17 at 0900, Until Discontinued, Verify nicotine 21 mg/24 hr patch And nicotine (NICODERM CQ) 21 mg/24 hr patch Patch RemovalJump to med Transdermal, DAILY, First dose on Thu03/21/17 at 0900, Until Discontinued, Remove nicotine 21 mg/24 hr patch Group 3: heparin (porcine) injection 0-4,000 Units (CANCELED) 0-4,000 Units, Intravenous, BOLUS PER HEPARIN PROTOCOL, Starting on Thu03/20/17 at 1443, Until Thu03/20/17 at 1715, Per Protocol, START ADJUSTMENT SCHEDULE 6 HOURS AFTER STARTING INFUSION aPTT Between 60 - 79 seconds: Bolus 2,000 units aPTT Less than 60 seconds: Bolus 4,000 units Increase infusion and recheck aPTT in 6 hours. , Routine And heparin 25,000 units in dextrose 5% 500 mL infusion (CANCELED)Jump to med 0-5,000 Units/hr (0-100 mL/hr), Intravenous, CONTINUOUS, Starting on Thu03/20/17 at 1500, Until Thu03/20/17 at 1715, BEGIN infusion at 1,000 units per hr (12 units/kg/hr). MAX INITIAL infusion rate is 1,000 units/hr. Target PTT = 80 - 114 seconds Start adjustment schedule 6 hours after starting infusion. If PTT is: - less than 60 seconds, Administer PRN bolus and increase rate by 400 units per hr (4 units/kg/hr) - 60 - 79 seconds, Administer PRN bolus and increase rate by 200 units per hr (2 units/kg/hr) - 80 - 114 seconds, No Change - 115 - 129 seconds, decrease rate by 100 units per hr (1 units/kg/hr) - 130 - 145 seconds, stop infusion for 30 minutes, then decrease rate by 200 units per hr (2 units/kg/hr) - Greater than 145 seconds, stop infusion for 60 minutes, then decrease rate by 300 units per hour (3 units/kg/hr) Repeat aPTT 6 hours after initiating heparin. Then 6 hours after each dose adjustment. When 2 consecutive aPTT within target range of 80 - 114 seconds, change aPTT to once every 24 hours with A.M. labs while on heparin. RN to order required aPTT - Per Protocol, Routine, Indication: ACS (STEMI vs NSTEMI vs UA) Group 4: dextrose 50% IV syringe 25-50 mLJump to med 25-50 mL (12.5-25 g), Intravenous, EVERY 1 HOUR PRN, Starting on Thu03/20/17 at 1443, Until 03/21/17 at 1528, Low blood sugar, For BG 50-70: 120 mL Juice or Regular (not diet) soda OR 12.5 gram (25 mL) Dextrose 50% IV OR, if no IV access, 1 mg Glucagon IM. Recheck BG in 30 minutes. May repeat juice, dextrose or glucagon once per episode For BG less than 50: 240 mL Juice or Regular (not diet) soda OR 25 grams (50 mL) Dextrose 50% IV OR, if no IV access, 1 mg Glucagon IM. Recheck BG in 30 minutes. May repeat juice, dextrose, or glucagon once per episode. To avoid extravasation, push Dextrose 50% SLOWLY (3 mL over 1 minute) in a patent, running IV, preferably a central line. For persistent hypoglycemia, consider longer-acting treatment for the duration of the active insulin., Routine Or glucagon (human recombinant) injection SolR 1 mgJump to med 1 mg, Intramuscular, EVERY 1 HOUR PRN, Starting on Thu03/20/17 at 1443, Until 03/21/17 at 1528, Low blood sugar, For BG 50-70: 120 mL Juice or Regular (not diet) soda OR 12.5 gram (25 mL) Dextrose 50% IV OR, if no IV access, 1 mg Glucagon IM. Recheck BG in 30 minutes. May repeat juice, dextrose or glucagon once per episode For BG less than 50: 240 mL Juice or Regular (not diet) soda OR 25 grams (50 mL) Dextrose 50% IV OR, if no IV access, 1 mg Glucagon IM. Recheck BG in 30 minutes. May repeat juice, dextrose, or glucagon once per episode. To avoid extravasation, push Dextrose 50% SLOWLY (3 mL over 1 minute) in a patent, running IV, preferably a central line. For persistent hypoglycemia, consider longer-acting treatment for the duration of the active insulin., Routine documented in this encounter Care Teams Fish Agent Relationship Specialty Start Date End Date Garth Berg MD [address] [place] [address] PCP - General General Internal Medicine 03/02/17 documented as of this encounter
--- OUTSIDE RECORDS SUMMARY | 2023-09-10 00:50 | XMS_ITS | Encounter Summary ---
Author Organization [facility] Address [facility] [place] [address] Care Team Providers Care Tank Terminal Gauger Name Role Phone Unknown Primary Care Provider Unavailabl e Encounter Details Date Type Department Care Team (Latest Contact Info) Description 01/15/2018 8:28 AM EST - 01/15/2018 11:59 PM EST Hospital Encounter Pulmonology at [facility] [place] [address] Pulmonary nodule Discharge Disposition: Home Social History [...] 500 mg Tablet Take by mouth. 10/26/2017 HYDROCHLOROTHIAZIDE ORAL Take by mouth Daily. traMADol [...] 02/21/2017 09/27/2020 documented as of this encounter Procedure Notes * Ector Garcia MD - 01/15/2018 11:59 PM ESTAssociated Order(s): PULMONARY FUNCTION TEST A. SPIROMETRY Is within normal limits B. DIFFUSING CAPACITY: The adjusted diffusing capacity(DLCO) for hemoglobin is within normal limits (>LLN-120%) C. PULSE OXIMETRY: Resting oxyhemoglobin saturation is normal. Resting oximetry was assessed while the patient was breathing room air. documented in this encounter Miscellaneous Notes * Addendum Note - Ector Garcia MD - 01/15/2018 11:59 PM ESTEncounter addended by: Ector Garcia MD on: 01/20/2018 11:04 AM Actions taken: Charge Capture section accepted, Sign clinical note documented in this encounter Plan of Treatment Not on file documented as of this encounter Procedures Procedure Name Priority Date/Time Associated Diagnosis Comments COMMON PULMONARY FUNCTION TEST Routine 01/15/2018 11:59 PM EST Pulmonary nodule documented in this encounter Results * Pulmonary Function Testing (01/15/2018 11:59 PM EST) Narrative Ector Garcia MD - 01/15/2018 11:59 PM EST Ector Garcia MD ? 01/20/2018 11:03 AM A. SPIROMETRY Is within normal limits B. DIFFUSING CAPACITY: The adjusted diffusing capacity(DLCO) for hemoglobin is within normal limits (>LLN-120%) C. PULSE OXIMETRY: Resting oxyhemoglobin saturation is normal. Resting oximetry was assessed while the patient was breathing room air. Amando Robins MD PFT ORDERABLES documented in this encounter Visit Diagnoses Diagnosis Pulmonary nodule Solitary pulmonary nodule documented in this encounter Care Teams Tank Terminal Gauger Relationship Specialty Start Date End Date Unknown None PCP - General 01/15/18 01/21/18 documented as of this encounter
--- OUTSIDE RECORDS SUMMARY | 2023-09-10 00:50 | XMS_ITS | Encounter Summary ---
Author Organization [facility] [place] [address] Care Team Providers Care Streaming Media Specialist Name Role Phone None Primary Care Provider Unavailabl e Reason for Visit * Diagnostic Test (Routine) - Closed Specialty Diagnoses / Procedures Referred By Edis grossman Referred To Contact Radiology Diagnoses Pulmonary nodule Procedures PET CT Standard Skull Base to Mid-Thigh Amando Robins MD [facility] [address] [place] [address] Referral ID Status Reason Start Date Expiration Date V isits Requested Visits Authorized [id number] Closed Specialty Service Requested 01/15/2018 01/15/2019 1 1 Encounter Details Date Type Department Care Team (Latest Contact Info) Description 01/22/2018 6:21 AM EST - 01/22/2018 11:59 PM [facility] Hospital [place] [address] Amando Robins MD [facility] [place] [address] Discharge Disposition: Home Social History Tobacco Use [...] Procedure Name Priority Date/Time Associated Diagnosis Comments NM PET CT SKULL BASE TO MID-THIGH ([facility]) Routine 01/22/2018 8:16 AM EST Pulmonary nodule documented in this encounter Visit Diagnoses Not on filedocumented in this encounter Administered Medications Inactive Administered Medications - up to 3 most recent administrations Medication Order MAR Action Action Date Dose Rate Site fludeoxyglucose (F-18) FDG injection 16.1 mCi 16.1 mCi, Intravenous, ONCE PRN, 1 dose, Starting on Thu01/22/18 at 0701, Until Thu01/22/18 at 0657, Per Protocol, Routine Given 01/22/2018 6:57 AM EST 16.1 mCi documented in this encounter Care Teams Streaming Media Specialist Relationship Specialty Start Date End Date None None PCP - General 01/22/18 03/01/20 documented as of this encounter
--- OUTSIDE RECORDS SUMMARY | 2023-09-10 00:50 | XMS_ITS | Encounter Summary ---
Author Organization [facility] Address [facility] [place] [address] Care Team Providers Care Cell Changer Name Role Phone Garth Berg MD Primary Care Provider [phone] Encounter Details Date Type Department Care Team (Latest Contact Info) Description 01/14/2018 11:48 AM EST - 01/14/2018 11:59 PM [facility] Hospital Encounter [place] [address] Backer, Amando Renteria MD [facility] [place] [address] Discharge Disposition: Home Social History Tobacco Use [...] FILM LIBRARY STORAGE ONLY DX CHEST Routine 01/14/2018 11:48 AM EST documented in this encounter Results * Film Library- Storage Only DX Chest (01/14/2018 11:48 AM EST) Narrative [facility][NOTE 3] - 01/14/2018 11:48 AM EST This exam is for storage only and is auto-finalizing. Amando [facility] FILM LIBRARY ORD ERABLES [facility] [place], [place] documented in this encounter Visit Diagnoses Not on filedocumented in this encounter Care Teams Cell Changer Relationship Specialty Start Date End Date Garth Berg MD [address] [place] [address] PCP - General General Internal Medicine 03/02/17 documented as of this encounter
--- OUTSIDE RECORDS SUMMARY | 2023-09-10 00:50 | XMS_ITS | Encounter Summary ---
Author Organization [facility] [place] [address] Care Team Providers Care Commercial Sales Consultant Name Role Phone Garth Marroquin DO Primary Care Provider [phone] Encounter Details Date Type Department Care Team (Late st Contact Info) Description 09/17/2020 External Results Weight and Wellness at [facility] [address] [place] [phone] Emilie Galvan, RN Social History Tobacco Use [...] Procedure Name Priority Date/Time Associated Diagnosis Comments [facility] EXTERNAL RESULT PANEL Routine 04/23/2020 CBC (WITH DIFF) Routine 04/23/2020 documented in this encounter Results * CBC (with Diff) (04/23/2020) WBC 7.28 RBC 5.43 Hemoglobin 16.3 Hematocrit 48.5 MCV 89.3 MCH 30.0 MCHC 33.6 RDWCV 13.2 Platelets 189 MPV 10.6 Neutrophils % 63.5 Lymphocytes % 21.7 Monocytes % 9.5 Eosinophil % 2.2 Basophils % 1.0 Immature Gran % 2.1 Neutr Abs (ANC) 4.63 Lymphocyte Abs 1.58 Monocyte Abs 0.69 Eosinophil Abs 0.16 Basophil Abs 0.07 Blood 04/23/2020 Historical Provider HEMATOLOGY ORDERA BLES * (ABNORMAL) [facility] External Results (04/23/2020) BUN 16(Externa l Lab) Creatinine 1.2([facility]) Sodium 137([facility]) Potassium 3.9([facility]) Chloride 103([facility]) CO2 24(Externa l Lab) Anion Gap 10(Externa l Lab) Calcium 8.8([facility]) Total Protein 7.2([facility]) Albumin 3.7([facility]) AST 19(Externa l Lab) ALT 39(Externa l Lab) Alk Phos 91(Externa l Lab) Total Bilirubin 0.4([facility]) Estimated GFR >60([facility]) TSH 1.26(Exter nal Lab) Glucose Lvl 162(ExtH) Troponin-T 0.05(Exter nal Lab) D-Dimer, Quant 354([facility]) Lactate 1.6(ExtH) 04/23/2020 Historical Provider POINT OF CARE KENNEY T ORDERABLES documented in this encounter Visit Diagnoses Not on filedocumented in this encounter Care Teams Commercial Sales Consultant Relationship Specialty Start Date End Date Garth Marroquin DO [address] [place] [address] PCP - General Family Medicine 03/02/20 06/19/21 documented as of this encounter
--- OUTSIDE RECORDS SUMMARY | 2023-09-10 00:50 | XMS_ITS | Encounter Summary ---
Author Organization [facility] [place] [address] Care Team Providers Care Geologist Name Role Phone None Primary Care Provider Unavailabl e Encounter Details Date Type Department Care Team (Late st Contact Info) Description 09/02/2019 [place] [phone] Corinne Frausto Social History Tobacco Use Types [...] on filedocumented in this encounter Care Teams Geologist Relationship Specialty Start Date End Date None None PCP - General 01/22/18 03/01/20 documented as of this encounter
--- OUTSIDE RECORDS SUMMARY | 2023-09-10 00:50 | XMS_ITS | Encounter Summary ---
Author Organization [facility] Address [facility] [place] [address] Care Team Providers Care Flat Folder Name Role Phone Garth Berg MD Primary Care Provider [phone] Encounter Details Date Type Department Care Team (Latest Contact Info) Description 12/16/2017 - 12/16/2017 11:59 PM EDT Hospital Encounter [place] [address] MorriserAmando MD [facility] [place] [address] Discharge Disposition: Home Social History Tobacco Use [...] by mouth every 6 hours 0 11/10/2017 aspirin 81 mg Tablet, Delayed Release (E.C.) [...] STORAGE ONLY CT ABDOMEN AND PELVIS Routine 12/16/2017 12:00 AM EDT documented in this encounter Results * Film Library- Storage Only CT Abdomen & Pelvis (12/16/2017 12:00 AM EDT) Narrative [facility] - 01/14/2018 11:48 AM EST This exam is for storage only and is auto-finalizing. Amando [facility] FILM LIBRARY ORD ERABLES [place]INA [place] documented in this encounter Visit Diagnoses Not on filedocumented in this encounter Care Teams Flat Folder Relationship Specialty Start Date End Date Garth Berg MD [address] [place] [address] PCP - General General Internal Medicine 03/02/17 documented as of this encounter
--- OUTSIDE RECORDS SUMMARY | 2023-09-10 00:50 | XMS_ITS | Encounter Summary ---
Author Organization [facility] [place] [address] Care Team Providers Care Business Management Intern Name Role Phone None Primary Care Provider Unavailabl e Encounter Details Date Type Department Care Team (Late st Contact Info) Description 11/18/2019 Telephone Pulmonology at [facility] [place] [phone] Anna Joe LNA Social History Tobacco Use Types Packs/Day Years [...] encounter Miscellaneous Notes * Telephone Encounter - Anna Joe LNA - 11/18/2019 8:36 AM EDT Pt calling re appt he was scheduled for yesterday 11/16 as a video visit. Pt states he told the racing secretary when he scheduled and the MA that called him that he doesn't have a computer and can't do video visit. Rescheduled pt for 12/18 for phone visit with Dr. Nesbitt. documented in this encounter Plan of Treatment Not on file documented as of this encounter Visit Diagnoses Not on filedocumented in this encounter Care Teams Business Management Intern Relationship Specialty Start Date End Date None None PCP - General 01/22/18 03/01/20 documented as of this encounter
--- OUTSIDE RECORDS SUMMARY | 2023-09-10 00:50 | XMS_ITS | Encounter Summary ---
[place] [address] Care Team Providers Care Sporting Goods Sales Manager Name Role Phone Unknown Primary Care Provider Unavailabl e Reason for Referral * Diagnostic Test (Routine) - Closed Specialty Diagnoses / Procedures Referred By Contac t Referred To Contact Radiology Diagnoses Pulmonary nodule Procedures PET CT Standard Skull Base to Mid-Thigh Amando Robins MD [facility] [place] [address] [place] [address] Referral ID Status Reason Start Date Expiration Date V isits Requested Visits Authorized [id number] Closed Specialty Service Requested 01/15/2018 01/15/2019 1 1 Reason for Visit * Reason Comments Referral * Consultation (Routine) - Closed Specialty Diagnoses / Procedures Referred By Contac t Referred To Contact Pulmonology Diagnoses PULMONARY NODULE Garth Marroquin, DO [address] [place] [address] [facility] [address] [place] [phone] Referral ID Status Reason Start Date Expiration Date V isits Requested Visits Authorized [id number] Closed Consult, Test & [facility] 12/21/2017 12/21/2018 1 1 Encounter Details Date Type Department Care Team (Late st Contact Info) Description 01/15/2018 8:00 AM EST Office [place] [address] Amando Robins MD [facility] [address] PULMONARY [place] [address] Pulmonary nodule Social History Tobacco Use Types [...] Sign Reading Time Taken Comments Blood Pressure 129/67 01/15/2018 7:47 AM EST Pulse 66 01/15/2018 7:47 AM EST Temperature - - Respiratory Rate 22 01/15/2018 7:47 AM EST Oxygen Saturation 98% 01/15/2018 7:47 AM EST Inhaled Oxygen Concentration - - Weight 110.2 kg (243 lb) 01/15/2018 7:47 AM EST Height 167.6 cm (5' 6) 01/15/2018 7:47 AM EST Body Mass Index 39.22 01/15/2018 7:47 AM EST documented in this encounter Progress Notes * Amando Robins MD - 01/15/2018 8:00 AM EST Images from the original note were not included. INITIAL OUTPATIENT CONSULTATION NOTE SECTION OF PULMONARY/CRITICAL CARE MEDICINE PATIENT NAME: Pavan Padilla : 1965 MEDICAL RECORD: [id number] DATE OF SERVICE: 01/14/2018 REFERRING PHYSICIAN: Garth Marroquin DO PRIMARY CARE PHYSICIAN: Garth Berg MD (Inactive) Reason for Consultation: PULMONARY NODULE Chief Complaint: I'm here about the spot on my lung UPDATED phone number: [phone] History of Present Illness: Mr. Pavan Padilla is a 52 y.o. man who is referred to Pulmonology for initial evaluation of an enlarging right lower lobe lung nodule. To begin, he had a CT abdomen/pelvis on 05/29/14 for abdominal pain which incidentally identified a RLL nodule. On my measurement this is 10 CM x 0.9 CM, and appeared irregular and either sold or part-solid. The reading radiology noted in the report that this was grossly unchanged from a 02/2014 scan, and perhaps also noted on an 09/2011 scan. It's not clear what the follow-up or considerations wereat that time in regards to the nodule. He apparently then had a CT abdomen on 09/27/17 (which I do not have access to despite requesting for the imaging repeatedly) which re-demonstrated the RLL nodule. This led to a dedicated CT chest over a month late on 11/06/17 which commented on an irregular 1.4x 2 CM RLL nodule increased in size vs 2015, but no indication of its size comparison to the 09/2017abdominal CT. A referral to Pulmonology was not placed until 12/21/17. In this time, he had repeat abdominal CTs performed on 12/16/17 and 01/09/18; the 12/16/17 report failed to mention the nodule all together, and the 01/09/18 study indicated the lesion has not changed in size since October. In speaking to Mr. Padilla, he was actually evaluated by Pulmonology in [place] a few months ago. He was evaluated by Dr. Troy Ray ([facility]) on 11/02/17 in their nodule clinic. It was at this appointment that the 10/2017 CT chest was obtained. He did not follow up with [facility] following completion of the 10/2017 CT chest. His PCP subsequently referred him here. He has an active 80 PY smoking history, now down to 1 pack per day from 2 packs per day in the fall. He is asymptomatic from a pulmonary perspective. No spirometry on file.He tells me that he is using nicotine patches and nicotine inhalers since October and is very motivated to quit. He thinks these modalities are helping and he has cut back by 50% since October but of course still smoking 1 pack per day. He denies any history of COPD and denies any known FH of lung disease or lung cancer. He denies any daily cough. He does have daily sputum production which is described as small in volume, white/thick. Denies hemoptysis. No weight loss, night sweats or fatigue. He has noticed some incre ase in exertional dyspnea over the last couple of weeks (namely with shoveling snow and walking outside). He doesn't seem to have any limitations walking on flat ground at a normal pace. No issues walking up a flight of stairs without stopping. He denies any recent abx or prednisone exposure (for respiratory issues) in the last year, and is not on any inhalers currently. Review of Systems: A 12 point ROS was negative aside from as listed in the HPI. Past Medical/Surgical History: Patient Active Problem List Diagnosis Code ??? Unstable angina I20.0 ??? Diabetes mellitus E11.9 ??? Essential hypertension I10 ??? Pulmonary nodule R91.1 ??? Cigar smoker F17.290 Medications: Prior to Admission medications Medication Sig Start Date End Date Taking? Authorizing Provider amLODIPine (NORVASC) 2.5 mg Tablet Take 1 tablet by mouth daily. 03/21/17 Jim West MD aspirin 81 mg Tablet, Delayed Release (E.C.) Take 1 tablet by mouth daily. 03/21/17 Jim West MD lisinopril (PRINIVIL;ZESTRIL) 30 mg Tablet Take 1 tablet by mouth daily. 03/22/17 Isma West MD glipiZIDE (GLUCOTROL XL) 2.5 mg Tablet Extended Rel 24 hr Take 2.5 mg by mouth daily. 10/13/16 PROVIDER, HISTORICAL metFORMIN (FORTAMET) 1,000 mg Tablet Extended Rel 24 hr Take 1,000 mg by mouth daily. 03/19/17 PROVIDER, HISTORICAL omeprazole (PRILOSEC) 40 mg Capsule, Delayed Release(E.C.) Take 40 mg by mouth daily. 01/21/17 PROVIDER, HISTORICAL PARoxetine (PAXIL) 20 mg Tablet Take 20 mg by mouth daily. 02/20/17 PROVIDER, HISTORICAL cholecalciferol, Vitamin D3, 2,000 unit Tablet Take 1 tablet by mouth daily. 11/17/16 PROVIDER, HISTORICAL atorvastatin (LIPITOR) 20 mg Tablet Take 1 tablet by mouth daily. 02/21/17 PROVIDER, HISTORICAL Allergies: Allergies Allergen Reactions ??? Naproxen Hives ??? 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 Occupational exposures: as above Objective: Most Recent Vitals: 01/15/18 0747 BP: 129/67 Pulse: 66 Resp: 22 SpO2: 98% General: This is a 52 y.o. male, NAD HEENT: Moist mucous membranes Neck: Supple Lymphatics: No obvious cervical lymphadenopathy. Cardiovascular: Nl s1/s2, rrr, no murmurs, no gallops Respiratory: CTAB, no adventitious LS GI: soft, nt, nd, +bs, obese Musculoskeletal: Normal bulk and tone Extremities: no LE edema noted, no clubbing Integument: No rash. Neurologic: Alert and oriented, moves all extremities appropriately, no obvious focal deficits Psychologic: Normal mood and affect. Labs: None to review today PFTS: None on file Imaging: (Images personally reviewed) 11/06/17 CT Chest w/ ([facility]): Compared to 2014 and 2017 imaging. Interval increase in size of soft tissue nodule in the right lung base now measuring 2 CM in size. Scarring, atelectasis or pneumonia involving the right middle and left lingular lobes.... There are a few mediastinal lymph nodes present, the largest measuring 0.8CM in maximum diameter. 05/29/14 CT Abdomen/Pelvis: Assessment: Pavan Padilla is a 52 y.o. man who is referred to me for evaluation of an enlarging right lower lobe pulmonary nodule(s). It is reported by the [facility] radiologist to measure 2 CM across in total from the 10/2017 CT chest as compared to the initial 0.8 CM solid vs part-solid lesion seen on a 2015CT abdomen (1.0 CM x 0.9 CM on my measurements). The 2014 report from [facility] also mentions similar findings dating back to 2011, but I do not have this imaging for review. On my personal review of the more recent chest imaging, I actually wonder if there are two separate/adjacent nodules, the more caudal lesion measuring 1 CM x 0.9 CM, and the more cephalad lesion measuring 1.2 CM x 1.3 CM. The radiology report mentions no significant lymphadenopathy however I disagree with this as well. There jimmy 1.3 CM 4R lymph node in short axis with what looks like a fatty hilum. No other significant hilaror mediastinal adenopathy. I also appreciate some sub- segmental atelectasis/irregular opacity in the RUL and a more ill-defined opacity in the medial RML with some associated mild bronchiectatic changes. This is a high risk individual with an active 80 PY smoking history. He does not have known COPD, and does not have a known FH of lung cancer. Although this could potentially represent a non-malignant process, I am certainly concerned about the malignant potential here and this must be worked up as such until definitively proven otherwise. It's presence since at least 2014 by no means expels the possibility of this representing a malignant lesion, but would speak to a much slower doubling time as could be seen (for example) with adenocarcinoma in situ. The pre-test probability for lung cancer is around 20% (Jonas NASCIMENTO et al. NEJ. 2013;368(8):728-36) which represents moderate risk. The first step is to obtain a PET/CT to not only evaluate the nodule (which should still be worked-upif PET negative) but for any additional hilar, mediastinal or extra-pulmonary sites of FDG avidity.PFT's will also need to be performed to help simultaneously evaluate his surgical candidacy. Finally, I will take him for EBUS guided FNA sampling of his hilar and mediastinal lymph nodes. I have reviewed his imaging with our Interventional Pulmonologists and the location of this lesion may be prohibitive to electro-navigational endobronchial sampling. Assuming his lymph node FNAs are negative for malignancy, and assuming his PET/CT shows FDG uptake at the level of the lesion only, and assuminghis lung function is not prohibitive to surgery, I will then present his case to Thoracic Surgery at our tumor board conference for consideration of VATS. If the lesion if FDG negative or perhaps only faintly avid, other considerations at that point may include non-surgical biopsy such as CT guidedtransthoracic needle aspiration (TTNA). Recommendations: ?? Obtain PFTs today ?? I will order a PET/CT now ?? Move forward with possible EBUS after PET/CT ?? All missing imaging from [facility] have been requested ?? Smoking cessation discussed in depth; continue nicotine replacement therapies ?? Remainder of plan as noted above ?? Note to be sent to Garth Berg MD (Inactive) ?? Follow-up with me for potential bronchoscopy with EBUS following the PET/CT Closest Hospital: [facility]; he is [place] minutes from [facility] Amando Robins MD, 01/15/2018, 8:30 AM Pulmonary & Critical Care Pager: [phone] documented in this encounter Plan of Treatment Not on file documented as of this encounter Results * PET CT Standard Skull Base to Mid-Thigh (01/22/2018 8:16 AM EST) Anatomical Region Laterality Modality Positron Emissio n Tomography (PET) Impressions 01/22/2018 10:16 AM EST 1. ??No evidence of FDG avid malignancy or metastases. 2. ??Non-FDG avid 14 mm right lung base opacity which has increased in size compared to 05/29/2014. Differential includes focal inflammatory or infectious etiology, or low-grade neoplasm. Consider limited low-dose 6 month follow-up CT to document stability. 3. ??Decreased size of the second non-FDG avid right lung base opacity, favored to represent focal atelectasis or a resolving infectious or inflammatory process. 4. ??Hepatic steatosis. Preliminary report signed by: Angus Lopez at 01/22/2018 10:03 AM I have personally reviewed the image(s) and the residents interpretation and agree with the findings, Deny Tucker at 01/22/2018 10:16 AM Narrative 01/22/2018 10:16 AM EST EXAMINATION: PET CT STANDARD SKULL BASE TO MID-THIGH CLINICAL HISTORY: enlarging, irregular RLL nodule(s) in a high risk patient; PET/CT for evaluation of the nodule and to guided any EBUS lymph node staging TECHNIQUE: Following IV injection of 60-bcdkme-0-deoxyglucose (FDG) a standard uptake of approximately 60 minutes, a noncontrast CT scan followed by a PET scan were acquired from the base of the skull to mid thighs. The noncontrast CT was used for anatomic localization and photon attenuation correction of the PET scan. Blood glucose level: 136 (mg/dL) FDG dose: 16.1 mCi COMPARISON: CT of the chest 11/06/2017. CT abdomen and pelvis 01/09/2018 and 05/29/2014. FINDINGS: HEAD/NECK: Normal activity in all soft tissue regions of the neck and visualized lower head. No lymphadenopathy. CHEST: Normal activity in all soft tissue regions. There is a non-FDG avid 14 mm [...] study and was not present on 05/29/2014. ??Unchanged non-FDG avid right middle lobe streaky opacity, most consistent with scar. No lymphadenopathy. Specifically the right lower paratracheal lymph node (image 66), does not meet size criteria for pathologic enlargement, has a fatty hilum and has no abnormal FDG uptake. ABDOMEN/PELVIS: Normal activity in all soft tissue regions. Diffuse low-attenuation of the liver, consistent with hepatic steatosis. There are non-FDG avid 1 cm exophytic low-attenuation lesions arising from the both kidneys, most consistent with renal cysts better characterized on the prior contrast enhanced CT. Small medial directed duodenal diverticulum. Colonic diverticulosis without evidence of acute diverticulitis. SKELETON/EXTREMITIES: Normal activity in all regions of the axial and ??visualized appendicular skeleton. No suspicious osseous lesions. Procedure Note Deny Tucker MD - 01/22/2018 EXAMINATION: PET CT STANDARD SKULL BASE TO MID-THIGH CLINICAL HISTORY: enlarging, irregular RLL nodule(s) in a high riskpatient; PET/CT for evaluation of the nodule and to guided any EBUS lymph nodestaging TECHNIQUE: Following IV injection of 89-lxfbzt-1-deoxyglucose (FDG) astandard uptake of approximately 60 minutes, a noncontrast CT scan followed by aPET scan were acquired from the base of the skull to mid thighs. The noncontrast CTwas used for anatomic localization and photon attenuation correction of thePET scan. Blood glucose level: 136 (mg/dL) FDG dose: 16.1 mCi COMPARISON: CT of the chest 11/06/2017. CT abdomen and pelvis 01/09/2018 and 05/29/2014. FINDINGS: HEAD/NECK: Normal activity in all soft tissue regions of the neck and visualizedlower head. No lymphadenopathy. CHEST: Normal activity in all soft tissue regions. There is a non-FDG avid 14 mm patchy opacity in the medial right lungbase (axial image 107), which is unchanged in size compared to 11/06/2017 but increased in size when compared to 05/29/2014 where it measured 10 mm ingreatest dimension. Decreased size of the second patchy opacity in the medial rightlung base (axial image 100), which now measures 9 mm compared to 20 mm on the 11/06/2017 study and was not present on 05/29/2014. Unchanged non-FDG avidright middle lobe streaky opacity, most consistent with scar. Nolymphadenopathy. Specifically the right lower paratracheal lymph node (image 66), does notmeet size criteria for pathologic enlargement, has a fatty hilum and has noabnormal FDG uptake. ABDOMEN/PELVIS: Normal activity in all soft tissue regions. Diffuse low-attenuation of the liver, consistent with hepatic steatosis.There are non-FDG avid 1 cm exophytic low-attenuation lesions arising from theboth kidneys, most consistent with renal cysts better characterized on theprior contrast enhanced CT. Small medial directed duodenal diverticulum.Colonic diverticulosis without evidence of acute diverticulitis. SKELETON/EXTREMITIES: Normal activity in all regions of the axial and visualized appendicular skeleton. No suspicious osseous lesions. IMPRESSION 1. No evidence of FDG avid malignancy or metastases. 2. Non-FDG avid 14 mm right lung base opacity which has increased insize compared to 05/29/2014. Differential includes focal inflammatory orinfectious etiology, or low-grade neoplasm. Consider limited low-dose 6 monthfollow-up CT to document stability. 3. Decreased size of the second non-FDG avid right lung base opacity,favored to represent focal atelectasis or a resolving infectious or inflammatory process. 4. Hepatic steatosis. Preliminary report signed by: Angus Lopez at 01/22/2018 10:03 AM I have personally reviewed the image(s) and the residents interpretationand agree with the findings, Deny Tucker at 01/22/2018 10:16 AM Amando Robins MD IMG PET ORDERABLES * Pulmonary Function Testing (01/15/2018 11:59 PM [...] pulmonary nodule Pulmonary nodule Solitary pulmonary nodule Pulmonary nodule Solitary pulmonary nodule documented in this encounter Care Teams Sporting Goods Sales Manager Relationship Specialty Start Date End Date Unknown None PCP - General 01/15/18 01/21/18 documented as of this encounter
--- OUTSIDE RECORDS SUMMARY | 2023-09-10 00:50 | XMS_ITS | Encounter Summary ---
[place] [address] Care Team Providers Care Silk Soaker Name Role Phone Garth Berg MD Primary Care Provider [phone] Encounter Details Date Type Department Care Team (Late st Contact Info) Description 01/05/2018 Telephone [place] [id number] Gisela Escamilla Social History Tobacco Use Types [...] * Telephone Encounter - Gisela Escamilla - 01/05/2018 8:46 AM EST Telephone call to patient, unable to leave message documented in this encounter Plan of Treatment Not on file documented as of this encounter Visit Diagnoses Not on filedocumented in this encounter Care Teams Silk Soaker Relationship Specialty Start Date End Date Garth Berg MD [address] [place] [address] PCP - General General Internal Medicine 03/02/17 documented as of this encounter
--- OUTSIDE RECORDS SUMMARY | 2023-09-10 00:50 | XMS_ITS | Encounter Summary ---
[place] [address] Care Team Providers Care Oil Sprayer Name Role Phone None Primary Care Provider Unavailabl e Reason for Referral * Diagnostic Test (Routine) - Closed Specialty Diagnoses / Procedures Referred By Contac t Referred To Contact Radiology Diagnoses Pulmonary nodule Procedures CT Chest wo Contrast (Generic) Amando Robins MD [facility] [place] [address] [facility] [place] [address] Referral ID Status Reason Start Date Expiration Date V isits Requested Visits Authorized [id number] Closed Specialty Service Requested 01/22/2018 01/22/2019 1 1 Reason for Visit * Diagnostic Test (Routine) - Closed Specialty Diagnoses / Procedures Referred By Contac t Referred To Contact Radiology Diagnoses Pulmonary nodule Procedures CT Chest wo Contrast (Generic) Amando Robins MD [facility] [place] [address] [facility] [place] [address] Referral ID Status Reason Start Date Expiration Date V isits Requested Visits Authorized [id number] Closed Specialty Service Requested 01/22/2018 01/22/2019 1 1 Encounter Details Date Type Department Care Team (Latest Contact Info) Description 11/22/2018 7:44 AM EDT - 11/22/2018 11:59 PM EDT Hospital Encounter CT Scan [place] [facility] [place] [address] Amando Robins MD [facility] [place] [address] Pulmonary nodule Discharge Disposition: Home Social History [...] Priority Date/Time Associated Diagnosis Comments CT CHEST WO CONTRAST (GENERIC) Routine 11/22/2018 8:26 AM EDT Pulmonary nodule documented in this encounter Results * CT Chest wo [...] nodule documented in this encounter Care Teams Oil Sprayer Relationship Specialty Start Date End Date None None PCP - General 01/22/18 03/01/20 documented as of this encounter
--- OUTSIDE RECORDS SUMMARY | 2023-09-10 00:50 | XMS_ITS | Encounter Summary ---
Author Organization [place] [id number] Care Team Providers Care Sample Collector Name Role Phone None Primary Care Provider Unavailabl e Reason for Referral * Diagnostic Test (Routine) - Closed Specialty Diagnoses / Procedures Referred By Contac t Referred To Contact Radiology Diagnoses Pulmonary nodule Procedures PET CT Standard Skull Base to Mid-Thigh Amando Robins MD [facility] [place] [address] [place] [address] Referral ID Status Reason Start Date Expiration Date V isits Requested Visits Authorized [id number] Closed Specialty Service Requested 01/15/2018 01/15/2019 1 1 Reason for Visit * Diagnostic Test (Routine) - Closed Specialty Diagnoses / Procedures Referred By Contac t Referred To Contact Radiology Diagnoses Pulmonary nodule Procedures PET CT Standard Skull Base to Mid-Thigh Amando Robins MD [facility] [place] [address] [place] [address] Referral ID Status Reason Start Date Expiration Date V isits Requested Visits Authorized [id number] Closed Specialty Service Requested 01/15/2018 01/15/2019 1 1 Encounter Details Date Type Department Care Team (Latest Contact Info) Description 01/22/2018 6:21 AM EST - 01/22/2018 11:59 PM [facility] Hospital Encounter Nuclear Medicine at [facility] [place] [address] Amando Robins MD [facility] [place] [address] Pulmonary nodule Discharge Disposition: Home Social History [...] Routine 01/22/2018 8:16 AM EST Pulmonary nodule POCT GLUCOSE Routine 01/22/2018 6:45 AM EST documented in this encounter Results * PET CT Standard [...] node staging TECHNIQUE: Following IV injection of 00-eihugk-8-deoxyglucose (FDG) a standard uptake of approximately 60 [...] lymph nodestaging TECHNIQUE: Following IV injection of 11-keouys-7-deoxyglucose (FDG) astandard uptake of approximately 60 minutes, [...] Amando Robins MD IMG PET ORDERABLES * POCT Glucose (01/22/2018 6:45 AM EST) POC Glucose 136 65 - 199 mg/dL [facility] Comment: Supplemental ranges: <140 mg/dL before meals <180 mg/dL all other times of the day Blood specimen (specimen) 01/22/2018 6:45 AM EST 01/22/2018 6:45 AM EST Amando Robins MD POINT OF CARE TEST O RDERABLES [facility] [place] [place] [address] documented in this encounter Visit Diagnoses Diagnosis Pulmonary nodule Solitary pulmonary nodule documented in this encounter Care Teams Sample Collector Relationship Specialty Start Date End Date None None PCP - General 01/22/18 03/01/20 documented as of this encounter
--- OUTSIDE RECORDS SUMMARY | 2023-09-10 00:50 | XMS_ITS | Encounter Summary ---
Author Organization [facility] [place] [address] Care Team Providers Care Global Regulatory Lead Name Role Phone None Primary Care Provider Unavailabl e Encounter Details Date Type Department Care Team (Late st Contact Info) Description 12/19/2019 3:00 PM EST TH Visit (TeleHealth) [place] [id number] Mary Alice Nesbitt MD [facility] [place] [address] Tobacco abuse Social History Tobacco Use Types Packs/Day Years [...] as of this encounter Progress Notes * Mary Alice Nesbitt MD - 12/19/2019 3:00 PM EST Images from the original note were not included. [facility] Section of Pulmonary and Critical Care Medicine Outpatient Consultation Date of Encounter: 12/19/2019 Referring Provider: No referring provider defined for this encounter. Reason for Evaluation: Lung nodule History of Present Illness: Patient verbally consents to this telephone visit and understands that this visit may be billed, similar to a clinic office visit. Mr. Padilla is a 54 year old male who presents today for an initial telephone visit with me. The patient was initially evaluated in the pulmonary clinic by Dr. Robins in 2017 for a lung nodule. The patient had his initial CT chest in October 2017 which had demonstrated an irregular nodular density in the medial aspect of the right lower lobe measuring 1.4 x 2 cm. This had apparently increased in size compared to a prior CT chest from 2014. A PET scan was hence done which demonstrated a non-FDG avid 14 mm right lung base opacity. A follow-up CT chest in 6 months was planned. The patient's repeat CT chest was done in November 2018 which demonstrated that the previously noted right lower lobe opacity had resolved. The patient was seen in follow-up by and it was recommended that he get enrolled in the lung cancer screening given his active tobacco use. The patient's follow-up was supposed to be as needed. However, the patient states that he got a call from radiology to schedule the CT chest and he wanted to pursue further follow-up. He has not had his follow-up CT chest yet secondary to Covid. He is scheduled to have a low-dose CTchest on 12/23/2019. The patient states that he is otherwise been doing well without any issues. He has no cough or phlegm production. He has no shortness of breath at rest or on exertion. He doesnot wheeze. He has been doing fairly well from a health standpoint. He has not had any ER visits or hospitalizations in the recent past. Past Medical and Surgical History: ELIU on [...] Outpatient Medications Medication Sig Dispense Refill ??? nitroGLYcerin (Nitrostat) 0.4 mg Tablet, Sublingual [...] mg Cartridge Inhale into the lungs. ??? nicotine (NICODERM CQ) 21 mg/24 hr Patch 24 hr APPLY 1 PATCH TOPICALLY DAILY 0 ??? amLODIPine (NORVASC) 2.5 mg Tablet Take [...] Tablet Take 1 tablet by mouth daily. No current facility-administered medications for this visit. Adverse Drug Reactions: Allergies Allergen Reactions ??? Naproxen Hives ??? [...] NEURO: No headaches or dizziness. Physical Examination: There were no vitals taken for this visit. No physical exam was done as this was a telephone encounter. The patient was talking in full sentences without any conversational dyspnea. Imaging: I personally reviewed imaging from [facility] [...] this report, please contact the number below. Pulmonary Function Tests: 01/15/2018: Normal FVC 3.58 L (84%), normal FEV1 2.76 L (85%), normal FEV1/FVC ratio 77. No obstructive ventilatory defect present. Normal diffusion capacity 22.49 (80%). No abnormalities in gas exchange noted. Impression and Plan of Care: Mr. Padilla is a 54 year old male who presents today for a pulmonary follow up, last seen by Dr. Garcia for a lung nodule : ASSESSMENT/PLAN 1. Lung nodule ?? The patient had his last CT chest in OPct 2019 which had shown resolution of the previously noted RLL opacity with some linear scarring. The patient does not need any further follow up from a lungnodule perspective. 2. Tobacco abuse ?? I have counseled the patient today about quitting smoking. He does have a LDCT scheduled for this week which I will review. The patient does not want any pharmacological help at this point to quit. If his LDCT remains normal, he can continue annual follow up for lung cancer screening. RECOMMENDATIONS 1. LDCT this week 2. RTC in 1 year I provided care to the patient today via telephone call. The total time associated with this visit was 20 minutes. I reviewed my impression and recommendations with the patient and answered all the questions to hissatisfaction. He understands the plan, and knows that he can contact us at any time should any new symptoms, concerns or questions arise. Mary Alice Nesbitt MD Legal DirectorSpeech Writer Pulmonary and [place] [address] documented in this encounter Plan of Treatment Not on file documented as of this encounter Visit Diagnoses Diagnosis Tobacco abuse Tobacco use disorder documented in this encounter Care Teams Global Regulatory Lead Relationship Specialty Start Date End Date None None PCP - General 01/22/18 03/01/20 documented as of this encounter
--- OUTSIDE RECORDS SUMMARY | 2023-09-10 00:50 | XMS_ITS | Encounter Summary ---
Author Organization [facility] [place] [address] Care Team Providers Care Climatology Professor Name Role Phone None Primary Care Provider Unavailabl e Encounter Details Date Type Department Care Team (Late st Contact Info) Description 09/29/2019 Telephone [place] [phone] Arielle Lord, [facility] Social History Tobacco Use Types Packs/Day Years [...] encounter Miscellaneous Notes * Telephone Encounter - Arielle Lord, [facility] - 09/29/2019 3:44 PM EDT GAP Mds Manager Pre-Telemedicine Phone Note [] Patient not reached [x] Patient reached and the following information was reviewed/obtained per protocol: [x] Confirmed patient name and date of [x] Confirmed telemedicine ilda (Vidyo and Virtual Visit) is downloaded and functioning [x] Confirmed location of patient - TeleVisit is taking place in [] [place] [] [place] [] If not on [facility], working on signing up for [facility] [x] Confirmed has completed any pre-visit questionnaires [] If has not received required pre-visit questionnaires, send via [facility] [x] Reviewed patient medications ??? nitroGLYcerin (Nitrostat) 0.4 mg Tablet, Sublingual ??? HYDROCHLOROTHIAZIDE ORAL ??? traMADol (ULTRAM) 50 mg Tablet ??? levoFLOXacin (LEVAQUIN) 750 mg Tablet ??? [...] Tablet ??? atorvastatin (LIPITOR) 20 mg Tablet [x] Documented self-reported vitals: [x] Weight: 230lbs [x] Height 5'6 [] pulse recorded: [] Other information or concerns documented in this encounter Plan of Treatment Not on file documented as of this encounter Visit Diagnoses Not on filedocumented in this encounter Care Teams Climatology Professor Relationship Specialty Start Date End Date None None PCP - General 01/22/18 03/01/20 documented as of this encounter
--- OUTSIDE RECORDS SUMMARY | 2023-09-10 00:50 | XMS_ITS | Encounter Summary ---
Author Organization [facility] [place] [address] Care Team Providers Care Town Marshal Name Role Phone None Primary Care Provider Unavailabl e Encounter Details Date Type Department Care Team (Late st Contact Info) Description 08/31/2019 Telephone [place] [phone] Corinne Frausto Social History Tobacco Use Types [...] on filedocumented in this encounter Care Teams Town Marshal Relationship Specialty Start Date End Date None None PCP - General 01/22/18 03/01/20 documented as of this encounter
--- OUTSIDE RECORDS SUMMARY | 2023-09-10 00:51 | XMS_ITS | Encounter Summary ---
Author Organization [facility]ly [facility] Address [facility] [place] [address] Care Team Providers Care Data Modeling Architect Name Role Phone Garth Berg MD Primary Care Provider [phone] Encounter Details Date Type Department Care Team (Latest Contact Info) Description 03/19/2017 - 03/19/2017 11:59 PM EST Hospital Encounter [place] [address] Jose Olivares MD [facility] [place] [address] Discharge Disposition: Home Social History Tobacco Use Types Packs/Day Years Used Date Smoking Tobacco: Never Assessed Sex and Gender Information Value Date Recorded Sex Assigned at Not on file Gender Identity Not on file Sexual Orientation Not on file documented as of this encounter Medications at Time of Discharge Medication Sig Dispensed Refills Start Date End Date omeprazole (PRILOSEC) 40 mg Capsule, Delayed Release(E.C.) Take 40 mg by mouth daily. 01/21/2017 cholecalciferol, Vitamin D3, 2,000 unit Tablet Take 1 tablet by mouth daily. 11/17/2016 glipiZIDE (GLUCOTROL XL) 2.5 mg Tablet Extended Rel 24 hr Take 2.5 mg by mouth daily. 10/13/2016 09/27/2020 hydroCHLOROthiazide (HYDRODIURIL) 12.5 mg Tablet Take 12.5 mg by mouth daily. 02/02/2017 03/21/2017 lisinopril (PRINIVIL;ZESTRIL) 40 mg Tablet Take 40 mg by mouth daily. 01/21/2017 03/21/2017 metFORMIN (FORTAMET) 1,000 mg Tablet Extended Rel 24 hr Take 1,000 mg by mouth daily. 03/19/2017 02/20/2022 PARoxetine (PAXIL) 20 mg Tablet Take 20 mg by mouth daily. 02/20/2017 09/27/2020 nitroGLYcerin (NITROSTAT) 0.4 mg Tablet, Sublingual Take 1 tablet by mouth daily. 02/12/2017 03/21/2017 atorvastatin (LIPITOR) 20 mg Tablet Take 1 tablet by mouth daily. 02/21/2017 09/27/2020 documented as of this encounter Plan of Treatment Not on file documented as of this encounter Procedures Procedure Name Priority Date/Time Associated Diagnosis Comments FILM LIBRARY STORAGE ONLY DX CHEST Routine 03/19/2017 12:00 AM EST documented in this encounter Results * Film Library- Storage Only DX Chest (03/19/2017 12:00 AM EST) Narrative [facility] - 03/20/2017 12:46 PM EST This exam is for storage only and is auto-finalizing. Jose Olivares MD IMG FILM LIBRARY ORD ERABLES [place], [place] documented in this encounter Visit Diagnoses Not on filedocumented in this encounter Care Teams Data Modeling Architect Relationship Specialty Start Date End Date Garth Berg MD [address] [place] [address] PCP - General General Internal Medicine 03/02/17 documented as of this encounter
--- OUTSIDE RECORDS SUMMARY | 2023-09-10 00:51 | XMS_ITS | Encounter Summary ---
Author Organization [facility] [place] [address] Care Team Providers Care Clay Mine Cutting Machine Operator Name Role Phone Judd Scott MD Primary Care Provider [phone] Encounter Details Date Type Department Care Team (Latest Contact Info) Description 11/22/2014 - 11/22/2014 11:59 PM EDT Hospital Encounter [place] [address] Amando Robins MD [facility] [place] [address] Discharge Disposition: Home Social History Tobacco Use [...] FILM LIBRARY STORAGE ONLY DX CHEST Routine 11/22/2014 12:00 AM EDT documented in this encounter Results * Film Library- Storage Only DX Chest (11/22/2014 12:00 AM EDT) Narrative [facility] - 01/14/2018 11:47 AM EST This exam is for storage only and is auto-finalizing. Amando Robins MD [facility] FILM LIBRARY ORD ERABLES [place], [place] documented in this encounter Visit Diagnoses Not on filedocumented in this encounter Care Teams Clay Mine Cutting Machine Operator Relationship Specialty Start Date End Date Judd Scott MD PCP - General 01/08/10 03/01/17 documented as of this encounter
--- OUTSIDE RECORDS SUMMARY | 2023-09-10 00:51 | XMS_ITS | Encounter Summary ---
Author Organization [facility] [place] [address] Care Team Providers Care Box Toe Cutter Name Role Phone Judd Scott MD Primary Care Provider [phone] Encounter Details Date Type Department Care Team (Late st Contact Info) Description 08/16/2013 Orders [place] [address] Warren He MD [facility] [place] [address] Social History Tobacco Use Types Packs/Day Years [...] Diagnosis Comments FILM LIBRARY STORAGE ONLY DX FOOT Routine 08/16/2013 8:05 AM EDT documented in this encounter Results * Film Library- Storage only DX Foot (08/16/2013 8:05 AM EDT) Anatomical Region Laterality Modality Other 08/16/2013 8:05 AM EDT Narrative 01/25/2014 8:12 AM EST This is a Non-reportable exam Procedure Note BELEN, UNSIGNED REPORT - 01/25/2014 This is a Non-reportable exam Warren He MD [facility] FILM LIBRARY ORD ERABLES documented in this encounter Visit Diagnoses Not on filedocumented in this encounter Care Teams Box Toe Cutter Relationship Specialty Start Date End Date Judd Scott MD PCP - General 01/08/10 03/01/17 documented as of this encounter
--- OUTSIDE RECORDS SUMMARY | 2023-09-10 00:51 | XMS_ITS | Encounter Summary ---
[place] [address] Care Team Providers Care Hoist Worker Name Role Phone Garth Berg MD Primary Care Provider [phone] Encounter Details Date Type Department Care Team (Late st Contact Info) Description 03/20/2017 External [place] [phone] Social History Tobacco Use Types Packs/Day Years [...] Procedure Name Priority Date/Time Associated Diagnosis Comments ECG SCAN Routine 03/20/2017 documented in this encounter Results * Scan Doc: ECG (03/20/2017) Historical Provider MD TURNER MGR SCAN EX T ORDR/RSLT documented in this encounter Visit Diagnoses Not on filedocumented in this encounter Care Teams Hoist Worker Relationship Specialty Start Date End Date Garth Berg MD [address] [place] [address] PCP - General General Internal Medicine 03/02/17 documented as of this encounter
--- OUTSIDE RECORDS SUMMARY | 2023-09-10 00:51 | XMS_ITS | Encounter Summary ---
Author Organization [facility] [place] [address] Care Team Providers Care Dog Trainer Name Role Phone Garth Berg MD Primary Care Provider [phone] Reason for Visit * Auth/Cert Specialty Diagnoses / Procedures Referred By Contac t Referred To Contact Diagnoses Unstable angina [place] ?CAD Procedures CARDIAC CATHETERIZATION Referral ID Status Reason Start Date Expiration Date Visits Re quested Visits Authorized [id number] 1 1 Encounter Details Date Type Department Care Team (Late st Contact Info) Description 03/20/2017 4:00 PM EST - 03/20/2017 5:00 PM EST Surgery [place] [id number] Fantasma Rubalcava MD [facility] [place] [address] CARDIAC CATHETERIZATION Social History Tobacco Use Types Packs/Day Years [...] Mannie Padilla Patient Age: 51 y.o. Language: Slovak Race: Ethnicity: Admit date: 03/20/2017 Discharge date [...] please contact your inpatient physician through the [facility] Typesetting Supervisor . Issues afterhours and on weekends will be handled by the bottle capping machine operator on-call. Discharge Diagnoses (Hospital Problems) and Secondary [...] (>100 pack years) presenting in transfer from [facility] with unstable angina. He presented to the ED yesterday after an episode of chest pain at rest. He was resting in bed at about 08:30 when he experienced 1010 substernal chest pain without radiation or other [...] weeks. ?? Emergency contact: Gayatri Suarez - [phone] (Mother) ?? OSH labs prior to transfer: [...] vasospasm and/or HTN - on discharge on 03/21, he was started empirically on amlodipine. He [...] up with your primary care provider and operating systems specialist for further instructions on your medication regimen. Primary care follow up: To be determined Follow-Up Appointments Future Appointments Date Time Provider Department Center 04/16/2017 12:00 PM Laverne Coon MD [facility] Date and Time Provider and Specialty Location Your Inpatient Doctor(s) at [facility]: Dr. Jose West General Instructions None Future Appointments and Orders Future Appointments Provider Department Dept Phone 04/16/2017 12:00 PM Laverne Coon MD Cardiology at [place] [phone] Discharge References/Attachments None documented in this encounter [...] up with your primary care provider and operating systems specialist for further instructions on your medication regimen. Primary care follow up: To be determined Follow-Up Appointments Future Appointments Date Time Provider Department Center 04/16/2017 12:00 PM Laverne Coon MD [facility] CLIN Date and Time Provider and Specialty Location Your Inpatient Doctor(s) at [facility]: Dr. Jose West documented in this encounter [...] removed and telemetry disconnected. Patient brought to [facility] via wheelchair. * Jose Olivares MD - [...] (>100 pack years) presenting in transfer from [facility] with unstable angina. Active Problems: Active Hospital [...] (>100 pack years) presenting in transfer from [facility] with unstable angina. Plan: Cardiac catheterization shows [...] He will follow-up with his PCP and operating systems specialist as an outpatient. Jim West MD, PGY-1 Cardiology S1 (pgr. [id number]) CARDIOLOGY STAFF NOTE Mannie Padilla is a [...] this and is ambulatory. Jose Olivares MD, [facility], [facility] Staff Forestry Aid Technician pager [phone] * Savita Aquilino X - 03/21/2017 12:02 [...] No apparent complications. Will continue to monitor. * Effie Young, CHATO - 03/20/2017 4:37 PM EST OUTCOME EVALUATION NOTE: OUTCOME SUMMARY: Patient arrived from OSH. VSS on RA. Telemetry initiated, NSR. EKG obtained. Admit labs drawn. Bedside echo obtained. Family at bedside. Patient brought to cardiac cath lab technologist. Patient returned from cardiac cath lab technologist. TR band in place. Fluids infusing as [...] call stack in reach * Saúl Mijares Natividad - 03/20/2017 3:23 PM EST Images from [...] in the chart. Plan/ Coronary Angio per switch house operator preference No c/i to long-term DAPT Moderate sedation MAGUI Mijares MD documented in this encounter H&P Notes * Jose Olivares MD - 03/20/2017 1:39 PM EST Cardiology Admission History and Physical Patient Name: Mannie Padilla Service: Cardiology S1 Team Responsible Attending: Jose Olivares MD PCP: Garth Berg MD PCP phone #: [phone] ID/Chief Complaint: 51 y.o. man with history [...] (>100 pack years) presenting in transfer from [facility] with unstable angina. He presented to the [...] recent weeks. Emergency contact: Gayatri Suarez - [phone] (Mother) OSH labs prior to transfer: CBC: [...] Only Family History: Mother: HTN, CVA MGF: AL 57 MGGF: AL 80 Father: of brain cancer at 67 [...] in the last 7068 hours. Invalid input(s): [id number] Heme: No results for input(s): LDH, HAPTOGLOBIN, [...] (>100 pack years) presenting in transfer from [facility] with unstable angina. He is currently without chest pain and has successfully been weaned off nitroglycerine drip. Given presentation, risk factorsand recent positive stress test, we will proceed with cardiac catheterization. Details of plan as follows. PLAN: Admit to Cardiology, S1 Team Pager # [phone] # ACS - unstable angina - Medications [...] of ACS medical therapies. 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[place] heart with unstable angina pectoris HEMOGRAM Routine 03/20/2017 2:54 PM EST DIFFERENTIAL, AUTOMATED Routine 03/20/19 18 2:54 PM EST CARDIAC ENZYMES (MC/CGP) Routine 03/20/2017 2:54 PM EST APTT STAT 03/20/2017 2:54 PM EST PROTHROMBIN TIME Routine 03/20/2017 2:54 PM EST CBC (WITH DIFF) Routine 03/20/2017 2:54 PM EST TSH Routine 03/20/2017 2:54 PM EST PHOSPHORUS Routine 03/20/2017 2:54 PM EST PRO-BRAIN NATRIURETIC PEPTIDE Routine 03/20/2017 2:54 PM EST MAGNESIUM Routine 03/20/2017 2:54 PM EST HEPATIC FUNCTION PANEL Routine 8 2:54 PM EST BASIC METABOLIC PANEL (NON-FASTING) Routine 03/20/2017 2:54 PM EST CARDIAC CATH SCAN 03/20/2017 12: 00 AM EST documented in this encounter Results * SCAN DOC: PRESSER COTTON GINNING (03/22/2017 12:00 AM EST) Anatomical Region Laterality Modality Other Narrative 03/22/2017 12:00 AM EST Ordered by an unspecified provider. Scanning Provider MEDIA MGR SCAN EXT O RDR/RSLT * POCT Glucose (03/21/2017 11:58 AM EST) POC Glucose 104 65 - 199 mg/dL [facility] Comment: Supplemental ranges: <140 mg/dL before meals <180 mg/dL all other times of the day Blood specimen (specimen) 03/21/2017 11:58 AM EST 03/21/2017 11:58 AM EST Jose Olivares MD POINT OF CARE TEST O DEANN Performing Organization Address [facility] Co de Phone Number [facility] [place] [place] [address] * POCT Glucose (03/21/2017 7:39 AM EST) POC Glucose 127 65 - 199 mg/dL [facility] Comment: Supplemental ranges: <140 mg/dL before meals <180 mg/dL all other times of the day Blood specimen (specimen) 03/21/2017 7:39 AM EST 03/21/2017 7:39 AM EST Jose Olivares MD POINT OF CARE TEST O DEANN Performing Organization Address City/[facility]/ZIP Co de Phone Number [facility] [place] [address] * Magnesium (03/21/2017 5:07 AM EST) Magnesium 0.89 0.69 - 1.07 mmol/L [facility] Blood specimen (specimen) Venous Draw / Unknown 03/21/2017 5:07 AM EST 03/21/2017 5:30 AM EST Narrative Resulting Agency Comment Spec In Lab Jim West MD CHEMISTRY ORDERA NAOMI [facility] [address] * (ABNORMAL) Basic Metabolic Panel (non-fasting) (03/21/2017 5:07 AM EST) Glucose Lvl 121 65 - 199 mg/dL [facility] Comment:Diabetes: >=200 mg/d L plus symptoms BUN 19 10 - 20 mg/dL [facility] Creatinine 1.31 0.80 - 1.50 mg/dL [facility] Sodium 139 135 - 145 mmol/L [facility] Potassium 4.0 3.5 - 5.0 mmol/L [facility] Comment: Please note: ??Patients with WBC >100,000 may have falsely elevated Potassium levels. ??For accurate Potassium quantification in these patients send serum separator tube (gold top) for subsequent determinations. ??Contact the Clinical Chemistry Laboratory if there are any questions. Chloride 103 98 - 107 mmol/L [facility] CO2 25 22 - 31 mmol/L [facility] Anion Gap 11 5 - 15 mmol/L [facility] Calcium 9.2 8.5 - 10.5 mg/dL [facility] Estimated GFR 57(L) >=60 [facility] Comment: The reported eGFR should be multiplied by 1.2 for patients. The MDRD is not an appropriate measure of renal function for patients with body mass extremes or in patients with acute kidney failure. http://[employer].crobo/DHnkdep http://[employer].crobo/DHMCnkf Blood specimen (specimen) 03/21/2017 5:07 AM EST 03/21/2017 5:29 AM EST Narrative Resulting Agency Comment Spec In Lab Jose Olivares MD CHEMISTRY ORDERABLES Performing Organization Address City/[facility]/ZIP [place] [address] * (ABNORMAL) Differential, Automated (03/21/2017 5:07 AM EST) Neutrophils % 57.4 % [facility] Neutr Abs (ANC) 4.37 1.70 - 6.10 x10(3)/[facility] LABORATORY Lymphocytes % 23.6 % [facility] Lymphocytes Abs 1.8 0.9 - 3.2 x10(3)/[facility] LABORATORY Monocytes % 13.2 % [facility] Monocyte Abs 1.0(H) 0.3 - 0.9 x10(3)/[facility] LABORATORY Eosinophils % 3.2 % [facility] Eosinophils Abs 0.2 0.0 - 0.4 x10(3)/[facility] LABORATORY Basophils % 1.2 % [facility] Basophils Abs 0.1 0.0 - 0.1 x10(3)/[facility] LABORATORY Immature Gran % 1.40 % [facility] Comment: Immature granulocytes(IG's)percentage and absolute count will include metamyelocytes, myelocytes, and promyelocytes. Blood smears from CBCs yielding IG's will be scanned manually for concordance. If this scan disagrees with the automated IG or if promyelocytes are noted, a manual differential will be performed. Chanelle Gran Abs 0.11(H) 0.00 - 0.04 x10(3)/[facility]ATORY Blood specimen (specimen) 03/21/2017 5:07 AM EST 03/21/2017 5:28 AM EST Narrative Resulting Agency Comment Spec In Lab Noelle Hearn MD HEMATOLOGY ORDERABLE S Performing Organization Address City/[facility]/[place]IP [place] [address] * Hemogram (03/21/2017 5:07 AM EST) WBC 7.6 4.0 - 9.5 x10(3)/[facility] LABORATORY RBC 4.83 4.58 - 5.54 x10(6)/[facility]ATORY Hemoglobin 14.6 13.7 - 16.5 gm/dL [facility] Hematocrit 43.1 40.5 - 48.5 % [facility] MCV 89.2 82.9 - 93.1 [facility] LABORATORY MCH 30.2 27.5 - 32.1 pg [facility] MCHC 33.9 32.0 - 35.7 gm/dL [facility] Platelets 200 145 - 357 x10(3)/[facility] LABORATORY RDWSD 42.4 36.0 - 45.0 [facility] LABORATORY RDWCV 12.9 11.4 - 13.8 % [facility] MPV 10.5 7.6 - 12.9 [facility] LABORATORY nRBC % Auto 0.0 % [facility] nRBC Abs Auto 0.000 0.000 - 0.000 x10(3)/[facility]ATORY Blood specimen (specimen) 03/21/2017 5:07 AM EST 03/21/2017 5:28 AM EST Narrative Resulting Agency Comment Spec In Lab Noelle Hearn MD HEMATOLOGY ORDERABLE S [facility] [place] [address] * (ABNORMAL) Hemoglobin A1c (03/21/2017 5:07 AM EST) Hemoglobin A1C 6.0(H) 4.3 - 5.6 % [facility] Comment: Reference Range: 4.3 - [...] 1, S67-74 Est Avg Gluc 126 mg/dL [facility] Comment: eAG equivalents for HbA1c percentages: [...] into estimated average glucose values. ??Diabetes Care 2008:31(8):9044-2652. Blood specimen (specimen) 03/21/2017 5:07 AM EST 03/21/2017 5:29 AM EST Narrative Resulting Agency Comment Spec In Lab Jose Olivares MD CHEMISTRY ORDERABLES [facility] [place] [address] * (ABNORMAL) Lipid Panel (03/21/2017 5:07 AM EST) Chol, Total 129 <=239 mg/dL [facility] Triglycerides 330(H) <=199 mg/dL [facility] HDL 22(L) >=40 mg/dL [facility] LDL Cholesterol 41 <=190 mg/dL [facility] Chol/HDL Ratio 5.9 ratio [facility] Lipid Interpretation See Note [facility] Comment: Lipid management should be guided by a patient? s ASCVD risk, goals and preferences. ACC/AHA Guidelines recommend high intensity statin if clinical ASCVD or LDL greater than or equal to 190 mg/dL. http://[employer].com/OWH-WER-Wwyvisijd Adults aged 40-75 with LDL 70-189 mg/dL should have their 10 year ASCVD risk estimated with the ACC/AHA ASCVD risk gearman http://tools.acc.org/NVVQA-Gres-Ykakrxnll/ Statin should be discussed if risk greater [...] In Lab Jose Olivares MD CHEMISTRY ORDERABLES [facility] [place] [address] * POCT Glucose (03/20/2017 8:06 PM EST) POC Glucose 125 65 - 199 mg/dL [facility] Comment: Supplemental ranges: <140 mg/dL before meals <180 mg/dL all other times of the day Blood specimen (specimen) 03/20/2017 8:06 PM EST 03/20/2017 8:06 PM EST Jose Olivares MD POINT OF CARE TEST O RDERABLES [facility] [address] * CARDIAC CATHETERIZATION (03/20/2017 5:15 PM EST) Anatomical Region Laterality Modality Other Narrative 03/20/2017 5:30 PM EST ?[facility] ? Cardiac Catheterization/Intervention Report ? Patient Name: , Mannie D. ? Procedure Date: 03/20/2017 ? A #: [id number] ? Primary Physician: Fantasma Rubalcava ? Case #: [id number] ? File Name: [id number] ? Catheterization Order Number: [id number] ? [facility] ? Final Report [place], [place] ? Patient Name: ? Mannie D. Merchant ? ID#: ?[id number] ? : ?1965 ? Procedure Date: ? March 20, 2017 ? Case #: ? [id number] ? Room: ? 5 ? Case Physician: [...] presented with: unstable angina (w/i 60 days). [place] ?Cardiovascular Society angina class was III. This [...] angiography and left ?heart catheterization. ? Fantasma Nieves Rubalcava, M.D. ? Electronically Signed by: Fantasma Nieves Rubalcava, M.D. ? Report Finalized: 03/20/2017 ??17:28 ? Report Last Ammended: 03/27/2017 ??08:21 ? Procedure Note Fantasma Rubalcava MD - 03/27/2017 [facility] Cardiac Catheterization/Intervention Report Patient Name: Mannie Padilla Procedure Date: 03/20/2017 A #: [id number] Primary Physician: Fantasma Rubalcava Case #: [id number] File Name: [id number] Catheterization Order Number: [id number] [facility] FinalReport [place], [place] Patient Name: Mannie Padilla ID#:[id number] :1965 Procedure Date: March 20, 2017 Case [...] presented with: unstable angina (w/i 60 days). [place] Cardiovascular Society angina class was III. This [...] CONTRAST (03/20/2017 4:44 PM EST) EF 65 HEARTLAB SYSTEM Anatomical Region Laterality Modality Other 03/20/2017 Narrative 03/20/2017 4:57 PM EST Procedure: ?Transthoracic Echocardiogram Patient: ?MERCHANT CHAND D ?? (Age): 1965(51y) Med Rec#: ? [id number] ?Sex: ?M ? Site Loc: ? [facility] ?Ht / Wt: ??170(cm)/106(kg) Pt. Loc: ?Adult Floor ? BSA: ?2.16 Study Date: ?? 03/20/2017 ?Pt. Type: Inpatient Tape: ? Referring: MARION Reading: Micheal Kent ([id number]) Offset Lithographic Press Setter: Joselito Linares Diagnosis: *ICD-10-PCS Atherosclerotic heart disease of [place] coronary artery with unstable angina pectoris (I25.110) [...] E-wave Vmax ?0.8 ?m/sec ? MV deceleration pbpt709.1 ?msec ? MV A-wave Vmax ?1 ?m/sec [...] ? Mid-Inferior ?Normal ? Mid-Inferoseptal ?Normal ? [place]-Septal ? Normal ? [place]-Anterior ? Normal ? [place]-Lateral ?Normal ? [place]-Inferior ? Normal ? [place]-Tip ?Normal ? This report has been electronically signed by: Micheal Kent MD ? 03/20/2017 16:56:45 Images reviewed and interpretation verified [facility] Cardiac Ultrasound Laboratory Procedure Note Micheal Kent MD - 03/20/2017 Procedure: Transthoracic Echocardiogram Patient: MERCHANT MANNIE Renteria (Age): 1965(51y) Med Rec#: [id number] Sex: M Site Loc: [facility] Ht / Wt: 170(cm)/106(kg) Pt. Loc: Adult Floor BSA: 2.16 Study Date: 03/20/2017 Pt. Type: Inpatient Tape: Referring: MARION Reading: Micheal Kent ([id number]) Offset Lithographic Press Setter: Joselito Linares Diagnosis: *ICD-10-PCS Atherosclerotic heart disease of [place] coronary artery with unstable angina pectoris (I25.110) [...] MV E-wave Vmax 0.8 m/sec MV deceleration fpzy000.1 msec MV A-wave Vmax 1 m/sec MV [...] Normal Mid-Posterolateral Normal Mid-Inferior Normal Mid-Inferoseptal Normal [place]-Septal Normal [place]-Anterior Normal [place]-Lateral Normal [place]-Inferior Normal [place]-Tip Normal This report has been electronically signed by: Micheal Kent MD 03/20/2017 16:56:45 Images reviewed and interpretation verified [facility] Cardiac Ultrasound Laboratory Jsoe Olivares MD ECHO ORDERABLES * EKG 12 Lead (03/20/2017 3:05 PM EST) Ventricular rate 62 BPM MUSE SYSTEM Atrial Rate 62 BPM MUSE SYSTEM P-R Interval 146 ms MUSE SYSTEM QRS Duration 84 ms MUSE SYSTEM Q-T Interval 420 ms MUSE SYSTEM QTC Calculated (Bezet) 426 ms MUSE SYSTEM Calculated P [place] 14 degrees MUSE SYSTEM Calculated R [place] 25 degrees MUSE SYSTEM Calculated T [place] 27 degrees MUSE SYSTEM INTERPRETATION Normal sinus rhythm Normal ECG No previous ECGs available Confirmed by Jose Olivares MD ([id number]) on 03/20/2017 5:30:25 PM MUSE SYSTEM 03/20/2017 3:05 PM EST 03/20/2017 5:30 PM EST Jose Olivares MD ECG ORDERABLES MUSE SYSTEM * (ABNORMAL) Differential, Automated (03/20/2017 2:54 PM EST) Neutrophils % 62.3 % [facility] Neutr Abs (ANC) 6.48(H) 1.70 - 6.10 x10(3)/ L [facility] Lymphocytes % 21.8 % [facility] Lymphocytes Abs 2.3 0.9 - 3.2 x10(3)/ L [facility] Monocytes % 10.8 % [facility] Monocyte Abs 1.1(H) 0.3 - 0.9 x10(3)/[facility]ORY Eosinophils % 2.6 % [facility] Eosinophils Abs 0.3 0.0 - 0.4 x10(3)/[facility] LABOR[facility]ORY Basophils % 1.1 % [facility] Basophils Abs 0.1 0.0 - 0.1 x10(3)/[facility]ORATORY Immature Gran % 1.40 % [facility] Comment: Immature granulocytes(IG's)percentage and absolute count will include metamyelocytes, myelocytes, and promyelocytes. Blood smears from CBCs yielding IG's will be scanned manually for concordance. If this scan disagrees with the automated IG or if promyelocytes are noted, a manual differential will be performed. Chanelle Gran Abs 0.15(H) 0.00 - 0.04 x10(3)/[facility] Blood specimen (specimen) 03/20/2017 2:54 PM EST 03/20/2017 3:00 PM EST Narrative Resulting Agency Comment Spec In Lab Noelle Hearn MD HEMATOLOGY ORDERABLE S [facility] [place] [address] * (ABNORMAL) Hemogram (03/20/2017 2:54 PM EST) WBC 10.4(H) 4.0 - 9.5 x10(3)/[facility] LABORATORY RBC 4.79 4.58 - 5.54 x10(6)/[facility]ORY Hemoglobin 14.5 13.7 - 16.5 gm/dL [facility] Hematocrit 41.9 40.5 - 48.5 % [facility] MCV 87.5 82.9 - 93.1 fL [facility] MCH 30.3 27.5 - 32.1 pg [facility] MCHC 34.6 32.0 - 35.7 gm/dL [facility] Platelets 188 145 - 357 x10(3)/[facility] LABORATORY RDWSD 40.9 36.0 - 45.0 fL [facility] RDWCV 12.9 11.4 - 13.8 % [facility] MPV 10.5 7.6 - 12.9 fL [facility] nRBC % Auto 0.0 % [facility] nRBC Abs Auto 0.000 0.000 - 0.000 x10(3)/[facility] Blood specimen (specimen) 03/20/2017 2:54 PM EST 03/20/2017 3:00 PM EST Narrative Resulting Agency Comment Spec In Lab Noelle Hearn MD HEMATOLOGY ORDERABLE S [facility] [place] [address] * Cardiac Enzymes (LEB/CGP) (03/20/2017 2:54 PM EST) Troponin-T <0.01 0.00 - 0.00 ng/mL [facility] Comment: The 99th percentile for Troponin T is less than 0.01 ng/mL, any detectable cTnT concentration using this assay should be considered elevated. According to the third universal definition of myocardial infarction the following criteria with a clinical presentation consistent with acute myocardial ischemia meets the diagnosis for a myocardial infarction (AL). Detection of a rise and/or fall of cTnT, with at least one value greater than the 99th percentile (> or = 0.01) and with at least one of the following ?? Symptoms of ischemia ?? New or presumed new significant FT-tuleaaf-U wave (ST-T) changes or new left bundle [...] additional sample may be indicated. Reference: Third Austin Definition of Myocardial Infarction. Journal of the [place] College [employer]iology 2012;60:1581-98 CK, Total 116 0 - 200 unit/L [facility] Blood specimen (specimen) 03/20/2017 2:54 PM EST 03/20/2017 3:00 PM EST Narrative Resulting Agency Comment Spec In Lab Jose Olivares MD CHEMISTRY ORDERABLES Performing Organization Address [facility] de Phone Number [facility] [place] [address] * Prothrombin Time (03/20/2017 2:54 PM EST) Pathologist [facility] PT 13.1 11.8 - 14.0 sec [facility] INR 1.0 0.9 - 1.[address] [facility] Comment: An INR <2.0 indicates [...] MD HEMATOLOGY ORDERABLE S Performing Organization Address [facility] de Phone Number [facility] [place] [address] * Hepatic Function Panel (03/20/2017 2:54 PM EST) Total Protein 6.9 6.1 - 8.0 gm/dL [facility] Albumin 4.2 3.2 - 5.2 gm/dL [facility] AST 17 0 - 39 unit/L [facility] ALT 27 0 - 55 unit/L [facility] Alk Phos 68 40 - 120 unit/L [facility] Total Bilirubin 0.4 0.2 - 1.3 mg/dL [facility] Bili, Direct 0.1 0.0 - 0.3 mg/dL [facility] Blood specimen (specimen) 03/20/2017 2:54 PM EST 03/20/2017 3:00 PM EST Narrative Resulting Agency Comment Spec In Lab Jose Olivares MD CHEMISTRY ORDERABLES Performing Organization Address City/[facility] Co de Phone Number [facility] [place] [address] * pro-Brain Natriuretic Peptide (03/20/2017 2:54 PM EST) ProBNP 14 <=125 pg/mL [facility] Blood specimen (specimen) 03/20/2017 2:54 PM EST 03/20/2017 3:00 PM EST Narrative Resulting Agency Comment Spec In Lab Jose Olivares MD CHEMISTRY ORDERABLES Performing Organization Address [facility] Co de Phone Number [facility] [place] [address] * TSH (03/20/2017 2:54 PM EST) TSH 0.62 0.27 - 4.20 mlU/ML [facility] Blood specimen (specimen) 03/20/2017 2:54 PM EST 03/20/2017 3:00 PM EST Narrative Resulting Agency Comment Spec In Lab Jose Olivares MD CHEMISTRY ORDERABLES Performing Organization Address [facility] Co de Phone Number [facility] [place] [address] * Phosphorus (03/20/2017 2:54 PM EST) Phosphorus 3.3 2.5 - 4.5 mg/dL [facility] Blood specimen (specimen) 03/20/2017 2:54 PM EST 03/20/2017 3:00 PM EST Narrative Resulting Agency Comment Spec In Lab Jose Olivares MD CHEMISTRY ORDERABLES Performing Organization Address [facility] Co de Phone Number [facility] [place] [address] * Magnesium (03/20/2017 2:54 PM EST) Magnesium 0.85 0.69 - 1.07 mmol/L [facility] Blood specimen (specimen) 03/20/2017 2:54 PM EST 03/20/2017 3:00 PM EST Narrative Resulting Agency Comment Spec In Lab Jose Olivares MD CHEMISTRY ORDERABLES Performing Organization Address [facility] de Phone Number [facility] [place] [address] * Basic Metabolic Panel (non-fasting) (03/20/2017 2:54 PM EST) Pathologist [facility] Glucose Lvl 90 65 - 199 mg/dL [facility] Comment:Diabetes: >=200 mg/d L plus symptoms BUN 19 10 - 20 mg/dL [facility] Creatinine 1.22 0.80 - 1.50 mg/dL [facility] Sodium 140 135 - 145 mmol/L [facility] Potassium 3.8 3.5 - 5.0 mmol/L [facility] Comment: Please note: ??Patients with WBC >100,000 may have falsely elevated Potassium levels. ??For accurate Potassium quantification in these patients send serum separator tube (gold top) for subsequent determinations. ??Contact the Clinical Chemistry Laboratory if there are any questions. Chloride 103 98 - 107 mmol/L [facility] CO2 22 22 - 31 mmol/L [facility] Anion Gap 15 5 - 15 mmol/L [facility] Calcium 9.1 8.5 - 10.5 mg/dL [facility] Estimated GFR >60 >=60 [facility] Comment: The reported eGFR should be multiplied by 1.2 for patients. The MDRD is not an appropriate measure of renal function for patients with body mass extremes or in patients with acute kidney failure. [email or web address]/DHnkdep [email or web address]/MCnkf Blood specimen (specimen) 03/20/2017 2:54 PM EST 03/20/2017 3:00 PM EST Narrative Resulting Agency Comment Spec In Lab Jose Olivares MD CHEMISTRY ORDERABLES Performing Organization Address [facility] Phone Number [facility] [place] [address] * (ABNORMAL) APTT (03/20/2017 2:54 PM EST) PTT 43(H) 25 - 35 sec [facility] Comment: The recommended therapeutic range for full dose, unfractionated heparin at [facility] is 80 ? 114 seconds. The use of the anti-Xa (heparin) level rather than the PTT is recommended for monitoring anticoagulation intensity in critically ill patients receiving unfractionated heparin by continuous IV infusion. Blood specimen (specimen) 03/20/2017 2:54 PM EST 03/20/2017 3:00 PM EST Narrative Resulting Agency Comment Spec In Lab Jose Olivares MD HEMATOLOGY ORDERABLE S Performing Organization Address [facility] Phone Number [facility] [place] [address] * SCAN DOC: CARDIAC CATH (03/20/2017 12:00 AM EST) Anatomical Region Laterality Modality Cardiac Other Narrative 03/20/2017 12:00 AM EST Ordered by an unspecified provider. Scanning Provider MEDIA MGR SCAN EXT O RDR/RSLT documented in this encounter Visit Diagnoses Not on filedocumented in this encounter Admitting Diagnoses Diagnosis Unstable angina Intermediate coronary syndrome documented in this encounter Administered Medications Inactive Administered Medications - up to 3 most recent administrations Medication Order MAR Action Action Date Dose Rate Site amLODIPine (NORVASC) tablet 2.5 mg 2.5 mg, Oral, DAILY, First dose on 03/21/17 at 0945, Until Discontinued, Routine Given 03/21/2017 9:49 AM EST 2.5 mg aspirin EC tablet 81 mg 81 mg, Oral, DAILY, First dose on 03/21/17 at 0945, Until Discontinued, Routine Given 03/21/2017 9:49 AM EST 81 mg atorvastatin (LIPITOR) tablet 20 mg 20 mg, Oral, EVERY EVENING, First dose (after last modification) on 03/21/17 at 1700, Until Discontinued, Routine dextrose 50% IV syringe 25-50 mL 25-50 [...] the duration of the active insulin., Routine fentaNYL 50 mcg/mL multi-dose injection ONCE PRN, Starting on Thu03/20/17 at 1634, Until Thu03/20/17 at 1715, Intra-Operative (Intra-Procedure), Routine Given 03/20/2017 4:42 PM EST 12.5 mcg Given 03/20/2017 4:34 PM EST 25 mcg glucagon (human recombinant) injection SolR 1 mg 1 mg, Intramuscular, EVERY 1 HOUR PRN, Starting on Thu03/20/17 at 1443, Until Thu03/21/17 at 1528, Low blood sugar, For BG [...] of the active insulin., Routine heparin (porcine) injection ONCE PRN, Starting on Thu03/20/17 at 1652, Until Thu03/20/17 at 1715, Cath (Intra-Procedure), Routine Given 03/20/2017 4:52 PM EST 5,000 Units insulin lispro (humaLOG) VIAL injection 1-4 Units [...] unless specifically told to do so., Routine iohexol (OMNIPAQUE) 350 mg/mL solution ONCE PRN, Starting on Thu03/20/17 at 1715, Until Thu03/20/17 at 1715, Cath (Intra-Procedure), Routine Given 03/20/2017 5:15 PM EST 75 mLs lisinopril (PRINIVIL;ZESTRIL) tablet 30 mg 30 mg, Oral, DAILY, First dose (after last modification) on Thu03/22/17 at 0900, Until Discontinued, Routine midazolam (PF) (VERSED) 1 mg/mL multi-dose injection ONCE PRN, Starting on Thu03/20/17 at 1634, Until Thu03/20/17 at 1715, Cath (Intra-Procedure), Routine Given 03/20/2017 4:42 PM EST 0.5 mg Given 03/20/2017 4:34 PM EST 1 mg nicotine (NICODERM CQ) 21 mg/24 hr patch 21 mg 21 mg, Transdermal, DAILY, First dose on Thu03/20/17 at 1500, Until Discontinued, Routine Patch Applied 03/21/2017 8:57 AM EST 21 mg 10- Arm Upper (Right ) Patch Applied 03/20/2017 3:19 PM EST 21 [...] Discontinued, Verify nicotine 21 mg/24 hr patch nitroGLYcerin 100 mcg/mL intracoronary dilution ONCE PRN, Starting on Thu03/20/17 at 1645, Until Thu03/20/17 at 1715, Cath (Intra-Procedure), Routine Given 03/20/2017 4:45 PM EST 150 mcg pantoprazole (PROTONIX) tablet 40 mg 40 mg, Oral, DAILY, First dose on Thu03/21/17 at 0900, Until Discontinued Given 03/21/2017 8:57 AM EST 40 mg sodium chloride 0.9 % flush 5 mL 5 mL, Intravenous, 2 TIMES DAILY, First dose on Thu03/20/17 at 2100, Until Discontinued, Routine Given 03/21/2017 8:59 AM EST 5 mLs Given 03/20/2017 9:00 PM EST 5 mLs verapamil (ISOPTIN) injection ONCE PRN, Starting on Thu03/20/17 at 1647, Until Thu03/20/17 at 1715, Administer over 2 Minutes, Cath (Intra-Procedure) Given 03/20/2017 4:47 PM EST 2.5 mg documented in this encounter Active and Recently Administered Medications Times are shown in EST. Scheduled Medication Order 03/19/2017 03/20/2017 03/21/2017 amLODIPine (NORVASC) tablet 2.5 mg 2.5 mg, Oral, DAILY, First dose on Thu03/21/17 at 0945, Until Discontinued, Routine 0949 (Given - Provid er: Effie Young RN) aspirin EC tablet 81 mg 81 mg, Oral, DAILY, First dose on Thu03/21/17 at 0945, Until Discontinued, Routine 0949 (Given - Provid er: Effie Young RN) atorvastatin (LIPITOR) tablet 20 mg 20 mg, Oral, EVERY EVENING, First dose (after last modification) on Thu03/21/17 at 1700, Until Discontinued, Routine atorvastatin (LIPITOR) tablet 80 mg (CANCELED) 80 mg, Oral, EVERY EVENING, First dose on Thu03/20/17 at 1700, Until Discontinued, Routine 1616 (APR Hold - Provider: Admin Adt - Reason: Transfer to a Procedural area)1700 (Automatically Held - Provider: Admin Adt)1736 (APR Unhold - Provider: Admin Adt)2104 (Given - [...] area)1630 (Automatically Held - Provider: Admin Adt)1736 (APR Unhold - Provider: Admin Adt) 0730 (Not [...] dose on 03/21/17 at 0900, Until Discontinued, Routine 1616 ([facility] Hold - Provider: Admin Adt - Reason: Transfer to a Procedural area)1736 ([facility] Unhold - Provider: Admin Adt) 0856 (Given - Provider: Effie Young RN) nicotine (NICODERM CQ) 21 mg/24 hr patch 21 mg(Linked Group 2) 21 mg, Transdermal, DAILY, First dose on Thu03/20/17 at 1500, Until Discontinued, Routine 1519 (Patch Applied - Provider: Effie Young RN)1616 ([facility] Hold - Provider: Admin Adt - Reason: Transfer to a Procedural area)1736 ([facility] Unhold - Provider: Admin Adt) 0857 (Patch Applied - Provider: Effie Young RN) nicotine (NICODERM CQ) 21 mg/24 hr patch Patch Removal(Linked Group 2) Transdermal, DAILY, First dose on 03/21/17 at 0900, Until Discontinued, Remove nicotine 21 mg/24 hr patch 1616 ([facility] Hold - Provider: Admin Adt - Reason: Transfer to a Procedural area)1736 ([facility] Unhold - Provider: Admin Adt) 0900 (Patch Removed - Provider: Effie Young RN) nicotine (NICODERM CQ) 21 mg/24 hr patch Patch Verification(Linked Group 2) Transdermal, 2 TIMES DAILY, First dose on Thu03/21/17 at 0900, Until Discontinued, Verify nicotine 21 mg/24 hr patch 1616 ([facility] Hold - Provider: Admin Adt - Reason: Transfer to a Procedural area)1736 ([facility] Unhold - Provider: Admin Adt) 0900 (Patch (dose and location) verified - Provider: Effie Young RN) pantoprazole (PROTONIX) tablet 40 mg 40 mg, Oral, DAILY, First dose on 03/21/17 at 0900, Until Discontinued 1616 ([facility] Hold - Provider: Admin Adt - Reason: Transfer to a Procedural area)1736 ([facility] Unhold - Provider: Admin Adt) 0857 (Given - Provider: Effie Young RN) PARoxetine (PAXIL) tablet 20 mg 20 mg, Oral, NIGHTLY, First dose on Thu03/21/17 at 2100, Until Discontinued, Routine 1616 (APR Hold - Provider: Admin Adt - Reason: Transfer to a Procedural area)1736 (APR Unhold - Provider: Admin Adt) sodium chloride 0.9 % flush 5 mL 5 mL, Intravenous, 2 TIMES DAILY, First dose on Thu03/20/17 at 2100, Until Discontinued, Routine 1616 (APR Hold - Provider: Admin Adt - Reason: Transfer to a Procedural area)1736 (APR Unhold - Provider: Admin Adt)2100 (Given - [...] Indication: ACS (STEMI vs NSTEMI vs UA) 3907 (New Bag - Provider: Effie Young RN)1616 ([facility] Hold - Provider: Admin Adt - Reason: Transfer to a Procedural area)1715 ([facility] Unhold - Provider: Admin Adt) sodium chloride 0.9% infusion () 100 mL/hr, Intravenous, CONTINUOUS, Starting on Thu03/20/17 at 1745, Until 03/20/17 at 2044, Recovery (Recovery-Hospital Unit) 1728 (New Bag - Provider: Valentine Matt RN) PRN Medication Order 03/19/2017 03/20/2017 03/21/2017 acetaminophen (TYLENOL) tablet 650 mg 650 mg, Oral, EVERY 4 HOURS PRN, Starting on Thu03/20/17 at 1443, Until 03/21/17 at 1528, Pain, Headaches, Maximum dose of acetaminophen is 4000 mg from all sources in 24 hours., Routine 161 ([facility] Hold - Provider: Admin Adt - Reason: Transfer to a Procedural area)173 ([facility] Unhold - Provider: Admin Adt) dextrose 50% [...] duration of the active insulin., Routine 1616 ([facility] Hold - Provider: Admin Adt - Reason: Transfer to a Procedural area)173 ([facility] Unhold - Provider: Admin Adt) docusate sodium (COLACE) capsule 100 mg 100 mg, Oral, DAILY PRN, Starting on Thu03/20/17 at 1443, Until 03/21/17 at 1528, Constipation, Routine 161 ([facility] Hold - Provider: Admin Adt - Reason: Transfer to a Procedural area)173 ([facility] Unhold - Provider: Admin Adt) fentaNYL 50 mcg/mL multi-dose injection (CANCELED) ONCE PRN, Starting on Thu03/20/17 at 1634, Until Thu03/20/17 at 1715, Intra-Operative (Intra-Procedure), Routine 163 (Given - Provider: Brenda Angelo, RN)164 (Given - Provider: Brenda Angelo, RN) glucagon [...] duration of the active insulin., Routine 161 ([facility] Hold - Provider: Admin Adt - Reason: Transfer to a Procedural area)173 ([facility] Unhold - Provider: Admin Adt) heparin (porcine) injection (CANCELED) ONCE PRN, Starting on Thu03/20/17 at 1652, Until Thu03/20/17 at 1715, Cath (Intra-Procedure), Routine 165 (Given - Provider: Ezio Abarca MD) iohexol (OMNIPAQUE) 350 mg/mL solution (CANCELED) ONCE PRN, Starting on 03/20/17 at 1715, Until 03/20/17 at 1715, Cath (Intra-Procedure), Routine 171 (Given - Provider: Ezio Abarca MD) lidocaine (XYLOCAINE) 10 mg/mL (1 %) injection 3 mg 3 mg (0.3 mL), Subcutaneous, ONCE PRN, 1 dose, Starting on 03/20/17 at 1443, Until 03/21/17 at 1528, for discomfort with PIV insertion, Routine 161 ([facility] Hold - Provider: Admin Adt - Reason: Transfer to a Procedural area)173 ([facility] Unhold - Provider: Admin Adt) midazolam (PF) (VERSED) 1 mg/mL multi-dose injection (CANCELED) ONCE PRN, Starting on Thu03/20/17 at 1634, Until Thu03/20/17 at 1715, Cath (Intra-Procedure), Routine 1634 (Given - Provider: Brenda Angelo RN)1642 (Given - Provider: Madeleine Love RN) nicotine polacrilex (COMMIT) lozenge 2 mg 2 mg, Buccal, EVERY 1 HOUR PRN, Starting on 03/20/17 at 1443, Until 03/21/17 at 1528, Smoking cessation, Maximum 20 Lozenges per day. If multiple PRN medications for smoking cessation, may give gum concomitant with lozenge., Routine 161 ([facility] Hold - Provider: Admin Adt - Reason: Transfer to a Procedural area)173 ([facility] Unhold - Provider: Admin Adt) nitroGLYcerin (NITROSTAT) [...] the last 24 to 72 hours., Routine 161 ([facility] Hold - Provider: Admin Adt - Reason: Transfer to a Procedural area)173 ([facility] Unhold - Provider: Admin Adt) nitroGLYcerin 100 mcg/mL intracoronary dilution (CANCELED) ONCE PRN, Starting on Thu03/20/17 at 1645, Until Thu03/20/17 at 1715, Cath (Intra-Procedure), Routine 1645 (Given [...] Intravenous, EVERY 1 MIN PRN, Starting on 03/20/17 at 1443, Until 03/21/17 at 1528, flush, Flush pertains to all indwelling lines. Flush per protocol found in the job aid using the link provided on this medication record., Routine 1616 ([facility] Hold - Provider: Admin Adt - Reason: Transfer to a Procedural area)1736 ([facility] Unhold - Provider: Admin Adt) verapamil (ISOPTIN) [...] to med Transdermal, DAILY, First dose on 03/21/17 at [...] Routine documented in this encounter Care Teams Dog Trainer Relationship Specialty Start Date End Date Garth Berg MD [address] [facility] [place] [address] PCP - General General Internal Medicine 03/02/17 documented as of this encounter
--- OUTSIDE RECORDS SUMMARY | 2023-09-10 00:51 | XMS_ITS | Encounter Summary ---
[place] [address] Care Team Providers Care Loss Prevention Leader Name Role Phone Judd Scott MD Primary Care Provider [phone] Reason for Visit * Reason Onset Date Comments Referral 01/23/2014 Encounter Details Date Type Department Care Team (Late st Contact Info) Description 01/23/2014 Telephone [place] [id number] Svetlana Frey Referral Social History Tobacco Use Types Packs/Day Years Used Date Smoking Tobacco: Never Assessed Sex and Gender Information Value Date Recorded Sex Assigned at Not on file Gender Identity Not on file Sexual Orientation Not on file documented as of this encounter Miscellaneous Notes * Telephone Encounter - Valentine Jorge - 01/25/2014 1:40 PM EST Debbie called from Dr. SCHERER's office stating they need a signed authorization from the patient in order to send us records. I sent a release of information to the patient to sign and send back. When received, please attach to the forms that will need to be faxed for information, this is attached to the .phrase in the middle drawer. * Telephone Encounter - Svetlana Frey - 01/23/2014 2:36 PM EST Ask the patient to verify the following: Full Name: Pavanthuy Padilla : 1965 Phone number: [phone] (home) Mailing address: [address] [facility] [address] Age: 48 y.o. Appointment date: 2ND OPINION Appointment is with: WAITING FOR OUTSIDE INFO Reason #1 Injury/Complaint: BILAT FOOT PAIN/ CRAMPING Date of injury/complaint: 2 YEARS Is this a new injury? No Is this a 2nd opinion? Yes Appointment type: 18-100 Adult - Not sports related Is this Workers Comp? No How long have you had these symptoms? 2 years Records Retrieval Most recent physical exam: No X-rays: Yes - When? Where? Notes: [address] 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 When? Where? Who? Notes: BILAT FOOT PAIN 2011 DR. SCHERER PH:[phone] DR. SCHERER Have you had any surgeries for this issue? No Did surgery include placement of implant/hardware or fixation of any kind? No Do you use any type of orthotics? No Additional injuries: Advanced Directive Do you have an Advanced Directive on file: No - Please bring a copy to your next appointment. Advance Directive pilot captain: N/A MyDH Do you have a MyD account? No - Patient Declined documented in this encounter Plan of Treatment Not on file documented as of this encounter Visit Diagnoses Not on filedocumented in this encounter Care Teams Loss Prevention Leader Relationship Specialty Start Date End Date Judd Scott MD PCP - General 01/08/10 03/01/17 documented as of this encounter
--- OUTSIDE RECORDS SUMMARY | 2023-09-10 00:51 | XMS_ITS | Encounter Summary ---
Author Organization [facility] Address [facility] [place] [address] Care Team Providers Care Processing Technician Name Role Phone Judd Scott MD Primary Care Provider [phone] Encounter Details Date Type Department Care Team (Latest Contact Info) Description 02/05/2017 - 02/05/2017 11:59 PM EST Hospital Encounter [place] [address] Jose Olivares MD [facility] [place] [address] Discharge Disposition: Home Social History Tobacco Use [...] 40 mg by mouth daily. 01/21/2017 03/21/2017 documented as of this encounter Plan of Treatment Not on file documented as of this encounter Procedures Procedure Name Priority Date/Time Associated Diagnosis Comments FILM LIBRARY STORAGE ONLY DX CHEST Routine 02/05/2017 12:00 AM EST documented in this encounter Results * Film Library- Storage Only DX Chest (02/05/2017 12:00 AM EST) Narrative [facility] - 03/20/2017 12:49 PM EST This exam is for storage only and is auto-finalizing. Jose Olivares MD IMG FILM LIBRARY ORD ERABLES Performing Organization Address City/State/[facility] Co de Phone Number [place], [place] documented in this encounter Visit Diagnoses Not on filedocumented in this encounter Care Teams Processing Technician Relationship Specialty Start Date End Date Judd Scott MD PCP - General 01/08/10 03/01/17 documented as of this encounter
--- OUTSIDE RECORDS SUMMARY | 2023-09-10 00:51 | XMS_ITS | Encounter Summary ---
Author Organization [facility] [place] [address] Care Team Providers Care Otr Van Cdl Truck Driver Name Role Phone Judd Scott MD Primary Care Provider [phone] Encounter Details Date Type Department Care Team (Late st Contact Info) Description 03/17/2014 Orders [place] [address] Yuri Lao MD [facility] [place] [address] Bilateral foot pain (Primary Dx) Social History Tobacco Use Types Packs/Day Years Used Date Smoking Tobacco: Never Assessed Sex and Gender Information Value Date Recorded Sex Assigned at Not on file Gender Identity Not on file Sexual Orientation Not on file documented as of this encounter Plan of Treatment Not on file documented as of this encounter Visit Diagnoses Diagnosis Bilateral foot pain- Primary Pain in limb documented in this encounter Care Teams Otr Van Cdl Truck Driver Relationship Specialty Start Date End Date Judd Scott MD PCP - General 01/08/10 03/01/17 documented as of this encounter
--- OUTSIDE RECORDS SUMMARY | 2023-09-10 00:51 | XMS_ITS | Encounter Summary ---
[place] [address] Care Team Providers Care Flight Inspector Name Role Phone Judd Scott MD Primary Care Provider [phone] Reason for Visit * Reason Onset Date Comments Referral 03/01/2014 Encounter Details Date Type Department Care Team (Late st Contact Info) Description 03/01/2014 Tele[place] [id number] Faiza Kline Referral Social History Tobacco Use Types Packs/Day Years Used Date Smoking Tobacco: Never Assessed Sex and Gender Information Value Date Recorded Sex Assigned at Not on file Gender Identity Not on file Sexual Orientation Not on file documented as of this encounter Miscellaneous Notes * Telephone Encounter - Svetlana Frey - 03/10/2014 11:26 AM EST Letter sent 03/10/14 * Telephone Encounter - Rhonda Izquierdo - 03/09/2014 8:39 AM EST Called to schedule referral, no answer and can't leave msg. * Telephone Encounter - Rhonda Izquierdo - 03/07/2014 3:34 PM EST Called to schedule referral, no answer and can't leave msg. * Telephone Encounter - Olivia Rojo - 03/07/2014 1:[address] Mcnallyanges office , no images were done there. All info here ok to sched. * Telephone Encounter - Nedra Hernandez - 03/06/2014 2:39 PM EST Received 12 pages of office notes from [facility], for the patients upcoming appointment. List what was rec'd. Office Notes Pathology Reports * Telephone Encounter - Olivia Rojo - 03/06/2014 12:30 PM EST REC'D S[facility]NA [facility] TO [facility] * Telephone Encounter - Faiza Bagi - 03/01/2014 9:07 AM EST Still have yet to receive SUSANA. Tried to call patient on the number on record. Phone has been disconnected. documented in this encounter Plan of Treatment Not on file documented as of this encounter Visit Diagnoses Not on filedocumented in this encounter Care Teams Flight Inspector Relationship Specialty Start Date End Date Judd Scott MD PCP - General 01/08/10 03/01/17 documented as of this encounter
--- OUTSIDE RECORDS SUMMARY | 2023-09-10 00:51 | XMS_ITS | Encounter Summary ---
Author Organization [facility] [place] [address] Care Team Providers Care Yield Engineer Name Role Phone Judd Scott MD Primary Care Provider [phone] Encounter Details Date Type Department Care Team (Latest Contact Info) Description 05/29/2014 - 05/29/2014 11:59 PM EDT Hospital Encounter [place] [address] Amando Robins MD [facility] [place] [address] Discharge Disposition: Home Social History Tobacco Use [...] STORAGE ONLY CT ABDOMEN AND PELVIS Routine 05/29/2014 12:00 AM EDT documented in this encounter Results * Film Library- Storage Only CT Abdomen & Pelvis (05/29/2014 12:00 AM EDT) Narrative [facility] - 01/14/2018 11:46 AM EST This exam is for storage only and is auto-finalizing. Amando Robins MD G FILM LIBRARY ORD ERABLES Performing Organization Address City/State/[facility] Co de Phone Number [facility] [place], [place] documented in this encounter Visit Diagnoses Not on filedocumented in this encounter Care Teams Yield Engineer Relationship Specialty Start Date End Date Judd Scott MD PCP - General 01/08/10 03/01/17 documented as of this encounter
--- OUTSIDE RECORDS SUMMARY | 2023-09-10 00:51 | XMS_ITS | Encounter Summary ---
Author Organization [facility] Address [facility] [place] [address] Care Team Providers Care Sock Examiner Name Role Phone Judd Scott MD Primary Care Provider [phone] Encounter Details Date Type Department Care Team (Latest Contact Info) Description 02/23/2017 - 02/23/2017 11:59 PM EST Hospital Encounter [place] [address] Jose Olivares MD [facility] [place] [address] Discharge Disposition: Home Social History Tobacco Use [...] 40 mg by mouth daily. 01/21/2017 03/21/2017 PARoxetine (PAXIL) 20 mg Tablet Take 20 [...] Associated Diagnosis Comments FILM LIBRARY STORAGE ONLY NUCLEAR MEDICINE Routine 02/23/2017 12:00 AM EST documented in this encounter Results * Film Library- Storage Only nuclear medicine (02/23/2017 12:00 AM EST) Narrative [facility] - 03/20/2017 12:47 PM EST This exam is for storage only and is auto-finalizing. Jose Olivares MD IMG FILM LIBRARY ORD ERABLES [place], [place] documented in this encounter Visit Diagnoses Not on filedocumented in this encounter Care Teams Sock Examiner Relationship Specialty Start Date End Date Judd Scott MD PCP - General 01/08/10 03/01/17 documented as of this encounter
--- OUTSIDE RECORDS SUMMARY | 2023-09-10 00:51 | XMS_ITS | Encounter Summary ---
Author Organization [facility] [place] [address] Care Team Providers Care Caddie Name Role Phone Judd Scott MD Primary Care Provider [phone] Encounter Details Date Type Department Care Team (Late st Contact Info) Description 05/22/2011 Orders Only Hematology Oncology at [address] [phone] Jm Meyer MD [address] [place] [id number] Social History Tobacco Use Types Packs/Day Years Used Date Smoking Tobacco: Never Assessed Sex and Gender Information Value Date Recorded Sex Assigned at Not on file Gender Identity Not on file Sexual Orientation Not on file documented as of this encounter Progress Notes * Gerri Casillas RN - 05/22/2011 2:28 PM EDT Encounter created in error documented in this encounter Plan of Treatment Not on file documented as of this encounter Visit Diagnoses Not on filedocumented in this encounter Care Teams Caddie Relationship Specialty Start Date End Date Judd Scott MD PCP - General 01/08/10 03/01/17 documented as of this encounter
--- NOTE | 2023-09-10 09:16 | DI.RAD_ITS ---
Exam(s) XR KNEE RT 4V AP,LAT,RHYS,PAT EXAM: XR KNEE RT 4V AP,LAT,RHYS,PAT CLINICAL HISTORY: evaluate pathology,rt knee pain,m25.561. TECHNIQUE: 2D digital imaging was performed of the right knee. Four views obtained. Merchant, AP, la teral and PA tunnel views were obtained. COMPARISON: No exams were available for comparison FINDINGS: BONES: No acute fracture is present. No bony destructive lesion is seen. JOINTS: The knee is normally aligned. There is a small joint effusion. SOFT TISSUE: Normal. IMPRESSION: Small joint effusion. DATA REPOSITORY: RADIATION DOSE DELIVERED:
== END ==
PROVIDERS: PCP Student in an Organized Health Care Education/Training Program; Visit Provider Nurse Practitioner Family
DX: M25.561 Pain in right knee (principal); M25.461 Effusion, right knee
CPT/HCPCS: 73564

== ENCOUNTER → 2023-09-16 09:58 | Outpatient (BNVA) | payer MEDICARE, MEDICAID, SELFPAY | PROVIDERS: PCP Student in an Organized Health Care Education/Training Program; Referring Provider Student in an Organized Health Care Education/Training Program; Visit Provider Student in an Organized Health Care Education/Training Program | DX: S80.01XA Contusion of right knee, initial encounter (principal); X58.XXXA Exposure to other specified factors, initial encounter; M23.91 Unspecified internal derangement of right knee | CPT/HCPCS: 99213 ==

== ENCOUNTER 2023-10-02 11:47 | Emergency (ER) | payer MEDICARE, MEDICAID, SELFPAY ==
[2023-10-02 11:48] VITALS: BP 141/59; PULSE 76; RESP 15; TEMP 36.3; O2SAT 99
[2023-10-02 11:52] VITALS: BP 141/59; PULSE 76; RESP 15; TEMP 36.3; O2SAT 99
--- NOTE | 2023-10-02 12:06 | W.ED.GENAD ---
Discharge Plan Disposition Patient Disposition: Home Condition: Stable Discharge Details Clinical Impression: Uncontrolled type 2 diabetes mellitus with hyperglycemia, Blood in urine, Acute dehydration, Alkaline phosphatase elevation Primary Care Provider: Angus Barnett ED Provider: Eva Isbell Home Meds and New Rx's Prescriptions: New insulin glargine [Basaglar KwikPen U-100 Insulin] 100 unit/mL (3 mL) insulin pen 15 unit subcut QAM Qty: 30 0RF Continued (DME) lancets [FreeStyle Lancets] 28 gauge misc See Rx Instructions .ROUTE .MEDSUPPLY Qty: 25 Rx Instructions: As directed albuterol sulfate [Ventolin HFA] 90 mcg/actuation HFA aerosol inhaler 1 - 2 puff Inhalation Q4H PRN Qty: 1 6RF Patient Comments: 09/03/21 pt reports he hasnt used in @ 5 months Rx Instructions: PHARMACY: PLEASE DISPENSE ALBUTEROL BRAND COVERED BY INSURANCE gemfibrozil [Lopid] 600 mg tablet 600 mg PO DAILY Qty: 90 3RF atorvastatin 20 mg tablet 20 mg PO DAILY Qty: 90 3RF pantoprazole [Protonix] 40 mg tablet,delayed release (DR/EC) 40 mg PO DAILY Qty: 30 12RF sucralfate [Carafate] 1 gram tablet 1 g PO HS Qty: 30 12RF lisinopril 10 mg tablet 5 mg PO DAILY tamsulosin 0.4 mg capsule 0.4 mg PO QHS nitroglycerin [Nitrostat] 0.4 mg tablet, sublingual 0.4 mg Sublingual Q5 MIN PRN X3 Qty: 100 1RF Patient Comments: 09/03/21 pt reports he hasnt taken in @ 3 months Rx Instructions: 1 tab sublingual q5m PRN x3 chest pain cholecalciferol (vitamin D3) [Vitamin D3] 50 mcg (2,000 unit) tablet 2,000 unit PO DAILY Qty: 90 3RF aspirin 81 mg tablet,delayed release (DR/EC) 81 mg PO DAILY 90 Days Qty: 90 3RF (DME) FreeStyle Lite Strips Strip See Rx Instructions .ROUTE .MEDSUPPLY Qty: 100 3RF Patient Comments: pt. states he checks his sugars when he thinks his sugars high Rx Instructions: Test daily to keep HbA1c less than 6.5%; Dx: E11.9 semaglutide 0.25 mg or 0.5 mg(2 mg/1.5 mL) pen injector 1 mg subcut QWEEK Rx Instructions: 09/27/20 PER [facility] STARTE 0.25 MG SB ONCE A WEEK FOR 28 DAYS, THEN 0.5 MG ONCE A WEEK. PT GOT MED 10/01/20 TIMOTHY 03/22/21-incr dose per [facility] weight/wellness-LH acetaminophen 500 mg tablet 500 mg PO Q6H PRN (Reason: pain) Qty: 60 2RF ibuprofen 600 mg tablet 600 mg PO TID PRN (Reason: pain) Qty: 60 0RF cephalexin 500 mg capsule 500 mg PO Q6H Patient Comments: TAKE ONE CAPSULE BY MOUTH EVERY 6 HOURS Changed metformin 500 mg tablet extended release 24 hr 1,000 mg PO TID Qty: 180 3RF Rx Instructions: for diabetes, two tabs in the morning Discharge Instructions Instructions: The ABCs of diabetes, Treatment for type 2 diabetes, Using insulin Additional Instructions: Your glucose was quite elevated here today. However, with your A1c also being elevated, it is likely been high for quite some time. The infection that is being treated by your primary care may also be causing your glucose to increase even more. Stopping Ozempic may also have increased your glucose. I did speak with your primary care and we will begin you on insulin once daily. Please ask pharmacy to help with instructions. Have also attached information on using insulin. Please continue to encourage hydration. Please increase your metformin from once daily to 3 times daily. If you tolerate this well it does not cause any stomach upset, please increase to 4 times daily next week. Your primary care provider would like to see you next week to recheck your sugar and discuss your uncontrolled diabetes further. Please call to schedule follow-up appointment next week. In regards to your knee, please keep the upcoming appointment with orthopedics as well as your MRI. Please encourage rest, ice, elevation. You may continue with the Jerman wrap to help with swelling and discomfort. Please continue to monitor your glucose, keep journal and discuss with primary care. Referrals: Angus Barnett [Primary Care Provider] - [facility] General Date/Time Provider Initiated Documentation: 10/02/23 11:56. Limitations to Documentation: no limitations. Information obtained by: patient, RN notes reviewed and old records reviewed. History of Present Illness 58 year old M presents to the emergency department with the chief complaint of elevated glucose at home, described as severe (read, high), Quality is described as other (has some increased urination but feels well otherwise), Patient started experiencing this unknown and it has been constant. No relieving factors improve symptom(s), Other factors that worsen symptoms (increased since infection and treatment with Keflex) . Patient notes no other symptoms.. Patient did receive the following treatments prior to arrival, none Related Data Home Medications ?Medication ?Instructions ?Recorded ?Confirmed lancets 28 gauge (FreeStyle #25 ea 08/29/19 10/02/23 Lancets) nitroglycerin 0.4 mg sublingual 0.4 mg sublingual Q5 MIN PRN X3 09/21/19 10/02/23 tablet (Nitrostat) chest pain #100 tabs albuterol sulfate 90 mcg/actuation 1 - 2 puff inhalation Q4H PRN ##1 10/20/19 10/02/23 aerosol inhaler (Ventolin HFA) cholecalciferol (vitamin D3) 50 2,000 unit PO DAILY #90 tab-caps 06/28/20 10/02/23 mcg (2,000 unit) tablet (Vitamin D3) atorvastatin 20 mg tablet 20 mg PO DAILY #90 tabs 11/09/20 10/02/23 gemfibrozil 600 mg tablet (Lopid) 600 mg PO DAILY #90 tabs 11/09/20 10/02/23 aspirin 81 mg tablet,delayed 81 mg PO DAILY 90 days ##90 01/31/21 10/02/23 release blood sugar diagnostic (FreeStyle #100 ea 03/14/21 10/02/23 Lite Strips) semaglutide 0.25 mg or 0.5 mg (2 1 mg subcut QWEEK 03/22/21 10/02/23 mg/1.5 mL) subcutaneous pen injector pantoprazole 40 mg tablet,delayed 40 mg PO DAILY #30 tabs 05/23/21 10/02/23 release (Protonix) sucralfate 1 gram tablet (Carafate) 1 g PO HS #30 tabs 05/23/21 10/02/23 lisinopril 10 mg tablet 5 mg PO DAILY 10/11/21 10/02/23 acetaminophen 500 mg tablet 500 mg PO Q6H PRN pain #60 tabs 12/04/21 10/02/23 ibuprofen 600 mg tablet 600 mg PO TID PRN pain #60 tabs 12/04/21 10/02/23 tamsulosin 0.4 mg capsule 0.4 mg PO QHS 03/31/23 10/02/23 cephalexin 500 mg capsule 500 mg PO Q6H 10/02/23 10/02/23 insulin glargine 100 unit/mL (3 15 unit (0.15 mL) subcut QAM #30 mL 10/02/23 mL) subcutaneous pen (Basaglar KwikPen U-100 Insulin) metformin 500 mg tablet,extended 1,000 mg (2 x 500 mg) PO TID #180 10/02/23 10/02/23 release 24 hr tab-caps Previous Rx's ?Medication ?Instructions ?Recorded nitroglycerin 0.4 mg sublingual 0.4 mg sublingual Q5 MIN PRN X3 09/21/19 tablet (Nitrostat) chest pain #100 tabs albuterol sulfate 90 mcg/actuation 1 - 2 puff inhalation Q4H PRN ##1 10/20/19 aerosol inhaler (Ventolin HFA) cholecalciferol (vitamin D3) 50 2,000 unit PO DAILY #90 tab-caps 06/28/20 mcg (2,000 unit) tablet (Vitamin D3) atorvastatin 20 mg tablet 20 mg PO DAILY #90 tabs 11/09/20 gemfibrozil 600 mg tablet (Lopid) 600 mg PO DAILY #90 tabs 11/09/20 aspirin 81 mg tablet,delayed 81 mg PO DAILY 90 days ##90 01/31/21 release blood sugar diagnostic (FreeStyle #100 ea 03/14/21 Lite Strips) pantoprazole 40 mg tablet,delayed 40 mg PO DAILY #30 tabs 05/23/21 release (Protonix) sucralfate 1 gram tablet (Carafate) 1 g PO HS #30 tabs 05/23/21 acetaminophen 500 mg tablet 500 mg PO Q6H PRN pain #60 tabs 12/04/21 ibuprofen 600 mg tablet 600 mg PO TID PRN pain #60 tabs 12/04/21 insulin glargine 100 unit/mL (3 15 unit (0.15 mL) subcut QAM #30 mL 10/02/23 mL) subcutaneous pen (Basaglar KwikPen U-100 Insulin) metformin 500 mg tablet,extended 1,000 mg (2 x 500 mg) PO TID #180 10/02/23 release 24 hr tab-caps Allergies Allergy/AdvReac Type Severity Reaction Status Date / Time celecoxib Allergy Intermediate Rash, Verified 10/02/23 11:54 urticaria naproxen Allergy Intermediate Itchy Welts Verified 10/02/23 11:54 General Stated Complaint: Diabetes JAMES: 3 Review of Systems Constitutional Constitutional: Reports as per HPI, Denies chills, Denies fever(s) and Denies weakness Cardiovascular Cardiovascular: Reports as per HPI, Denies chest pain, Denies lightheadedness and Denies dyspnea Respiratory Respiratory: Reports as per HPI, Denies cough and Denies dyspnea Gastrointestinal Gastrointestinal: Reports as per HPI, Denies abdominal pain, Denies change in bowel habits, Denies nausea and Denies vomiting Genitourinary Genitourinary: Denies system reviewed and no additional complaints, except as documented (denies any change in urinary habits) Integumentary/Breasts Skin/Breast: Reports as per HPI and Denies rash Neurologic Neurologic: Denies abnormal movements, Denies abnormal speech and Denies weakness Exam Const General: cooperative, healthy appearing, comfortable, no acute distress, well developed and well groomed Nutritional Appearance: well nourished and overweight Orientation: alert and awake [facility] Nose image: 1. Area of discomfort and question of infection. No fluctuance, seems a focal tender and slightly red area. No intra nasal abnormalities appreciated. Mouth: oral mucosae normal, lip normal, tongue normal, no trismus and No restricted motion Teeth and gingiva: edentulous Eyes General: appearance normal, both eyes and all related structures Resp Effort & Inspection: normal respiratory effort, able to speak in complete sentences and no respiratory distress Auscultation: clear to auscultation bilaterally Cardio Rate: regular rate Rhythm: regular rhythm Heart Sounds: S1 normal and S2 normal Skin General skin exam: no rashes or lesions noted Trauma: no lacerations or abrasions Neuro General: patient alert and patient awake Cognition: normal cognition Speech: speech normal Gait: normal gait Course Vital Signs Vital signs: Vital Signs Temperature 36.3 C L 10/02/23 11:48 Pulse 76 08/16/24 11:48 Respiratory Rate 15 10/02/23 11:48 Blood Pressure 141/59 H 10/02/23 11:48 Pulse Oximetry 99 10/02/23 11:48 Temperature 36.3 C L 10/02/23 11:52 Temperature Source Temporal Artery Scan 10/02/23 11:52 Pulse 76 10/02/23 11:52 Respiratory Rate 15 10/02/23 11:52 Respiratory Effort Normal 10/02/23 11:52 Blood Pressure 141/59 H 10/02/23 11:52 Blood Pressure Position Sitting 10/02/23 11:52 Pulse Oximetry 99 10/02/23 11:52 Oxygen Delivery Method Room Air 10/02/23 11:52 Oxygen Flow Rate 0 10/02/23 11:48 Medical Decision Making Patient is a pleasant 58-year-old male past medical history significant for diabetes, urinary incontinence, CKD, hypertension, GERD, ELIU, hypertriglyceridemia, presenting today with chief complaint of elevated glucose. He reports that he is currently being treated with antibiotics for sinusitis. Beginning antibiotics 2 days ago. He reports that he checked his glucose this morning and reading said high. He denies any physical complaints aside from the pain along the left side of his nose associated with sinusitis which is resolving with the antibiotics. He does not routinely check his glucose, states that he checks every few days. Unknown when his last A1c was checked. He denies any fevers. Denies any headaches. Is edentulous, no spreading into the dentition. Denies any difficulty swallowing. No GI upset. Denies any chest pain, shortness of breath or cough. He does report that he has had increased urinary output which he associates with his elevated glucose. Denies any dysuria. On exam, patient appears nontoxic. He is hemodynamically stable. No evidence to suggest tachypnea, increased work of breathing. His glucose here is 600. Lungs are clear, normal cardiac exam. Exam is otherwise benign. He does have some tenderness still over the left maxillary sinus. Will evaluate for potential DKA. Although, patient is tolerating this elevated glucose quite well, may also have chronically elevated glucose that is not closely monitored, will also obtain an A1c. Discussed explained to the patient who is in agreement. Will give IV fluids, hold off on insulin until K+ level obtained. CBC without signficant abnormality. pH WNL, no ketonurea to suggest DKA. Na low at 129, corrects to 136 with glucose of 541. Creatinine 1.5, he has had elevations historically but most recent was 1.2. He is receiving IV fluids. A1c 10.6% suggesting more chronic issue, likely elevated d/t his known infection. 500 glucose in urine. Small amount of blood, will have him f/u with PCP for this. Also stopped his Ozempic a month ago. Will call PCP to discuss management. Not in DKA but will need insulin. Spoke with PCP and reviewed presentation and reviewed labs, he noted he was checked in June and was significantly lower. Since that time however, patient has stopped the Ozempic does not sound to consistently check his glucose. We discussed what he would otherwise be beginning the patient on and he recommended increasing the metformin. Currently on once daily. He advised increasing to TID then QID if no GI upset. Also advised to beginning patient on Lantus at 15 U daily. He advised that with his baseline medical care and ability to care for himself, does not feel it appropriate for him to do sliding scale. Patient will need to give dosing. On Keflex and mupirocin for nasal infection. They will reassess him next week. Glucose is down to 3 1:55 liter of fluids as well as 15 units of insulin. I did encourage that come in but she is not able to at this time. They will seek out teaching with pharmacy so that is able to administer the daily dosing of Lantus. He will follow-up with primary care next week. I encouraged him to check his glucose daily and as directed by primary care. Return precautions were discussed with the patient. I encouraged her to continue with the antibiotics as previously prescribed. All of his questions and concerns were addressed and he is in agreement this plan. We also did discuss dietary changes and areas where excess glucose could potentially be cut out Quality:SDOH Health Related Social Needs: No Data to Display PFSH All Active Problems (Updated 10/02/23 @ 14:17 by JAMES Mireles) Alkaline phosphatase elevation (Acute) Acute dehydration (Acute) Blood in urine (Acute) Uncontrolled type 2 diabetes mellitus with hyperglycemia (Acute) Internal derangement of right knee (Acute) Contusion of right knee (Acute 09/04/23) H/O urinary frequency (Acute) Abnormal stress test (Chronic) Tobacco use disorder (Chronic) Quit 2019, restarted late in the year Vitamin D deficiency (Chronic) Chronic kidney disease (CKD), stage III (moderate) (Chronic 05/26/16) ? due to DM or to hypertension Diabetes mellitus type 2 in obese (Chronic 02/19/16) presented with polyuria, elevated FS on friend's glucometer, A1c 14 at [facility] ER Essential hypertension (Chronic) goal <140/85 Gastroesophageal reflux disease without esophagitis (Chronic 12/05/11) ER 11/2014 rx PPI Microscopic hematuria (Chronic 02/27/14) CT neg; JUSTINO neg; persists 01/2015 Mixed hyperlipidemia (Chronic 02/16/01) low HDL 27; SL HIGH TG; CV RISK (12/2016): 27%: rec Statin Obesity, unspecified (Chronic 12/05/11) 1993 165#; 180 gives BMI <30 05/06/21 [facility], BMI 35.10 Obstructive sleep apnea (Chronic 03/10/16) [id number], severe in REM sleep Sleep study PSG on 03/10/16: AHI 20.1; SPO2 shailesh 82%; CPAP begun 06/08/16. with improvement in fatigue 06/29/16 restudied higher pressures needed assoc. with treatment of central sleep apnea Complex regional pain syndrome (Chronic 06/27/13) Type 2 diabetes mellitus (Chronic 12/05/11) Chest pain (Acute) Hypertrophy of tonsils (Acute) 02/21/2019 ENT, Dr Lange Dysfunction of left eustachian tube (Acute) 02/21/[address] Lange Edentulous (Acute) Chronic maxillary sinusitis (Acute) History of sinusitis (Acute) Abdominal obesity (Acute) Chest pain (Acute) Bilateral hydrocele (Acute) Abdominal pain (Acute) Lightheadedness (Acute) Hematuria (Acute) Family history of cerebral aneurysm (Chronic) Mother in Mar 2020 Right arm numbness (Acute) Functional bowel disorder (Acute) Diverticulosis (Chronic) Colonoscopy June 2019 Other constipation (Acute ~2020) [facility] Polyp of colon (Acute ~2020) [facility] Right lower quadrant pain (Acute ~2020) [facility] Sinusitis (Acute) High triglycerides (Acute) Dizziness (Acute) Dyspnea (Acute) Gout (Chronic) R 1st PIP joint Umbilical hernia (Acute) History of alcohol abuse (Acute) Burning sensation (Acute) Eructation (Acute) Medical History Urinary incontinence without sensory awareness Sessile colonic polyp (09/26/14) @ transverse colon, sigmoid Paresthesias (10/27/16) nocturnal, bilateral, R>L, Median nerve, probable CTS Surgical History Cubital tunnel syndrome of both upper extremities S/P L cubital tunnel release: 09/03/2021 S/P R cubital tunnel release: 12/04/2021 Carpal tunnel syndrome of right wrist S/P ECTR: 12/04/2021 Carpal tunnel syndrome of left wrist S/P ECTR: 09/03/2021 Cystoscopy w/ joe retrograde pyelogram (03/01/15) Colonoscopy - IV Sedation (09/26/14) [facility] Perri, serrated polyp, fragments of sessile serrated adenoma Extraction of cataract (12/17/16) Left Radha Manzo; R 11/19/16 Cardiac Cath (03/24/17) [id number] stents placed Family History Father , lung cancer at age 67. Essential hypertension Neoplasm Mother Diabetes Essential hypertension Sister No problems noted. Sister No problems noted. Social History Smoking/Tobacco Use Status: Current every day Tobacco Type: cigarettes Tobacco: How many years used: 41 Quit status: considering quitting Smoking risk assessment performed?: Yes Alcohol Intake: former Drug use: Never Substance use type: does not use Household members: significant other Housing: apartment Number of Children: 3 Communication Needs: None Do you need help understanding health information?: Often current occupation: Disabled Current gender identity: male What is your relationship status?: living with partner How often do you talk on the phone with friends or family?: three or more times per week How often do you get together with friends or relatives?: three or more times per week Panel score (0-1 are the most socially isolated patients): 2 What type of physical activity do you participate in: none Seatbelt use: always Drive intox or ride w/intox cattle driver: No Working smoke detector in home: No Fire extinguisher in home: No Carbon monox detector in home: No Do you feel safe at home: Yes Do you feel safe in your relationship?: Yes
[2023-10-02] MEDS: Lactated Ringers 1,000 ML 1000 ML IV (12:22)
[2023-10-02 12:26] LABS: Abs Immature Grans 0.13 10^3/uL (0.0-0.06); Absolute Basophil Count 0.08 10^3/uL (0.0-0.2); Absolute Eosinophil Count 0.17 10^3/uL (0.0-0.7); Absolute Lymphocyte Count 1.82 10^3/uL (1.2-3.4); Absolute Monocyte Count 0.76 10^3/uL (0.1-0.8); Absolute Neutrophil Count 5.69 10^3/uL (1.2-6.7); Basophils % 0.9 %; HCT 46.2 % (40.0-50.0); HGB 15.9 g/dL (13.5-17.5); Immature Grans % 1.5 %; MCH 29.7 pg (27.0-33.0); MCHC 34.4 % (32.0-36.0); MCV 86 fL (80-95); MPV 10.9 fL (8.0-11.0); Monocytes % 8.8 %; Neutrophils % 65.8 %; Platelet Count 211 10^3/uL (130-400); RBC 5.35 10^6/uL (4.36-5.78); RDW-SD 38.3 fL; WBC 8.65 10^3/uL (4.4-10.8)
--- OUTSIDE RECORDS SUMMARY | 2023-10-02 12:31 | XMS_ITS | Clinical Summary ---
Author Organization [facility] Address [address] [place] [address] Care Team Providers Care Platemaker Name Role Phone Garth Marroquin DO Primary Care Provider [phone] Allergies Active Allergy Reactions Criticality Noted Date [...] History Medical History Date Comments Diabetes mellitus ([facility]) Hypertension Smoking greater than 40 pack years [...] - 1-dose 60+ series) 2023 Care Teams Platemaker Relationship Specialty Start Date End Date Garth Marroquin DO [address] [place] [id number] PCP - General 10/30/17
--- OUTSIDE RECORDS SUMMARY | 2023-10-02 12:31 | XMS_ITS | Encounter Summary ---
Author Organization [facility] Address [address] [place] [address] Care Team Providers Care Staff Counselor Name Role Phone Garth Marroquin DO Primary Care Provider [phone] Encounter Details Date Type Department Care Team (Late st Contact Info) Description 03/30/2020 Lab Requisition [facility] Pathology & Laboratory Medicine - [address] [id number] Outr Resulting Lab, Provider Social History Tobacco [...] 0.0 - 3.5 ng/mL 03/30/2020 18:03 EST [facility] Blood VENOUS BLOOD / Unknown 03/29/2020 13:40 EST 03/30/2020 16:30 EST Narrative [facility] - 03/30/2020 18:03 EST NOTE: Serum PSA concentration should not be interpreted as absolute evidence for the presence or absence of malignant disease. Assayed on Siemens ADVIA Centaur XPT using chemiluminescent technology.??Values obtained by using different assay methods cannot be used interchangeably. Provider Outr Resulting Lab CHEMISTRY & BLOOD GAS ORDERABLES [facility] [address] [place] [address] documented in this encounter Visit Diagnoses Not on filedocumented in this encounter Care Teams Staff Counselor Relationship Specialty Start Date End Date Garth Marroquin DO [address] [place] [phone] PCP - General 10/30/17 documented as of this encounter
--- OUTSIDE RECORDS SUMMARY | 2023-10-02 12:31 | XMS_ITS | Encounter Summary ---
Author Organization [facility] Address [address] [place] [address] Care Team Providers Care Supervisor Loading Name Role Phone Garth Marroquin DO Primary Care Provider [phone] Encounter Details Date Type Department Care Team (Late st Contact Info) Description 04/17/2021 Lab Requisition [facility] Pathology & Laboratory Medicine - [facility] [address] [place], [place] [address] Outr Resulting Lab, Provider Social History Tobacco [...] 3.59 See Note mg/L 04/17/2021 21:50 EST [facility] Comment: Reference Range: ??Low Risk: ? <1.0 mg/L ??Average Risk: ?? 1.0 - 3.0 mg/L ??High Risk: ?>3.0 mg/L ??Indeterminate*: >10.0 mg/L ??*May be an indication of another source of inflammation or infection Blood VENOUS BLOOD / Unknown 04/17/2021 10:45 EST 04/17/2021 21:30 EST Provider Outr Resulting Lab CHEMISTRY & BLOOD GAS ORDERABLES Performing Organization Address City/State/[facility] Co de Phone Number [facility] [address] [place] [address] documented in this encounter Visit Diagnoses Not on filedocumented in this encounter Care Teams Supervisor Loading Relationship Specialty Start Date End Date Garth Marroquin DO [address] [facility] [place] [address] PCP - General 10/30/17 documented as of this encounter
--- OUTSIDE RECORDS SUMMARY | 2023-10-02 12:31 | XMS_ITS | Encounter Summary ---
Author Organization [facility] Address [address] [place] [address] Care Team Providers Care Fast Food Shift Supervisor Name Role Phone Garth Marroquin DO Primary Care Provider [phone] Encounter Details Date Type Department Care Team (Late st Contact Info) Description 06/23/2020 Lab Requisition [facility] Pathology & Laboratory Medicine - [facility] [address] [place] [address] Angus Raza MD [address] [place] [phone] Encounter for screening for malignant neoplasm [...] - Deeper sections x3 examined. 06/27/2020 9:33 [facility] Attestation By the signature below, the attending physician certifies that they have 1) personally conducted a gross and/or microscopic examination of the described specimen(s), and/or personally interpreted the results of laboratory testing of the described specimen(s), and 2) personally rendered or confirmed the above diagnosis. 06/27/2020 9:33 [facility] at 0933 Clinical History Abdominal pain, history of adenomatous polyps, fatty liver; clinical diagnosis code: Z12.11, R10.31, Z86.010 06/27/2020 9:33 [facility] Gross Description A. Received in [...] C1. JAMES MYERS(ASCP) 06/25/2020 10:15 06/27/2020 9:33 [facility] Performing Lab [facility] 06/27/2020 9:33 [facility] Scanned Images 06/27/2020 9:33 [facility] Tissue ENTIRE SIGMOID COLON / Unknown 06/22/2020 7:31 EDT 06/23/2020 9:41 EDT Tissue specimen (specimen) TRANSVERSE COLON STRUCTURE / Unknown 06/22/2020 7:31 EDT 06/23/2020 9:41 EDT Tissue specimen (specimen) SIGMOID COLON STRUCTURE / Unknown 06/22/2020 7:31 EDT 06/23/2020 9:41 EDT Angus Raza MD PATHOLOGY ORD ERABLES [facility] [address] [place] [address] documented in this encounter Visit Diagnoses Diagnosis Encounter for screening for malignant neoplasm of colon Special screening for malignant neoplasms, colon Right lower quadrant pain Abdominal pain, right lower quadrant Personal history of colonic polyps documented in this encounter Care Teams Fast Food Shift Supervisor Relationship Specialty Start Date End Date Garth Marroquin DO [address] [place] [address] PCP - General 10/30/17 documented as of this encounter
--- OUTSIDE RECORDS SUMMARY | 2023-10-02 12:31 | XMS_ITS | Referral Summary ---
Author Organization [facility] Address [address] [place] [address] Care Team Providers Care It Architect Name Role Phone Garth Marroquin DO Primary Care Provider [phone] Allergies Active Allergy Reactions Criticality Noted Date [...] of Treatment Not on file Care Teams It Architect Relationship Specialty Start Date End Date Garth Marroquin DO [address] [place] [phone] PCP - General 9/14/18
--- OUTSIDE RECORDS SUMMARY | 2023-10-02 12:31 | XMS_ITS | Encounter Summary ---
Author Organization [facility] Address [address] [place] [address] Care Team Providers Care Solar Systems Designer Name Role Phone Garth Marroquin DO Primary Care Provider [phone] Encounter Details Date Type Department Care Team (Late st Contact Info) Description 07/04/2022 Lab Requisition [facility] Pathology & Laboratory Medicine - [facility] [address] [place], [place] [address] Outr Resulting Lab, Provider Social History Tobacco [...] PSA 0.6 <=3.5 ng/mL 07/07/2022 9:[address] [facility] Blood VENOUS BLOOD / Unknown 07/04/2022 15:00 EDT 07/04/2022 21:27 EDT Narrative [facility] - 07/07/2022 9:23 EDT NOTE: Serum PSA concentration should not be interpreted as absolute evidence for the presence or absence of malignant disease. Assayed on Siemens ADVIA MyLifeaur XPT using chemiluminescent technology.??Values obtained by using different assay methods cannot be used interchangeably. Provider Outr Resulting Lab CHEMISTRY & BLOOD GAS ORDERABLES [facility] [address] [place] [address] documented in this encounter Visit Diagnoses Not on filedocumented in this encounter Care Teams Solar Systems Designer Relationship Specialty Start Date End Date Garth Marroquin DO [address] [facility] [phone] PCP - General 10/30/17 documented as of this encounter
--- OUTSIDE RECORDS SUMMARY | 2023-10-02 12:31 | XMS_ITS | Encounter Summary ---
Author Organization [facility] Address [address] [place] [address] Care Team Providers Care Skeet Operator Name Role Phone Garth Marroquin DO Primary Care Provider [phone] Encounter Details Date Type Department Care Team (Late st Contact Info) Description 06/12/2020 Lab Requisition [facility] Pathology & Laboratory Medicine - [address] [address] Desmond Rogers MD [address] [place] [phone] Other microscopic hematuria Social History Tobacco Use [...] Name Priority Date/Time Associated Diagnosis Comments NON FINAL INSTALLER INSPECTOR/FNA CYTOLOGY Today 06/11/2020 8:00 EDT Other microscopic hematuria documented in this encounter Results * NON FINAL INSTALLER INSPECTOR/FNA CYTOLOGY (06/11/2020 8:00 EDT) Final Diagnosis URINE, BARBOTAGE, CYTOLOGIC EVALUATION: - Negative for high grade urothelial carcinoma. 06/12/2020 14:18 EDT [facility] Attestation By the signature below, the attending physician certifies that they have personally conducted a gross and/or microscopic examination of the described specimens and rendered or confirmed the above diagnosis. 06/12/2020 14:18 EDT [facility] at 1418 Clinical History Microscopic hematuria; R31.29 06/12/2020 14:18 EDT [facility] Gross Description A. 70 ccs of slightly cloudy, pale pink fluid, of which 35 ccs are composed of Cytolyt, were received and processed by selective cellular enhancement technique. 06/12/2020 14:18 EDT [facility] Performing Lab [facility] 06/12/2020 14:18 EDT [facility] Scanned Images 06/12/2020 14:18 EDT [facility] Urine URINE SPECIMEN / Unknown 06/11/2020 8:00 EDT 06/12/2020 7:44 EDT Desmond Rogers MD PATHOLOGY ORDERAB LES [facility] [address] [place] [address] documented in this encounter Visit Diagnoses Diagnosis Other microscopic hematuria documented in this encounter Care Teams Skeet Operator Relationship Specialty Start Date End Date Garth Marroquin DO [address] [place] [address] PCP - General 10/30/17 documented as of this encounter
--- OUTSIDE RECORDS SUMMARY | 2023-10-02 12:32 | XMS_ITS | Encounter Summary ---
Author Organization [facility] [place] [address] Care Team Providers Care Manager Mechanical Maintenance Name Role Phone Judd Pizarro MD Primary Care Provider [phone] Encounter Details Date Type Department Care Team (Late st Contact Info) Description 07/19/2021 Telephone Weight and Wellness at [facility] [address] [place] [address] Mariam Reynoso V Social History [...] on filedocumented in this encounter Care Teams Manager Mechanical Maintenance Relationship Specialty Start Date End Date Judd Pizarro MD [facility] [address] [facility] [address] PCP - General Family Medicine 06/20/21 documented as of this encounter
--- OUTSIDE RECORDS SUMMARY | 2023-10-02 12:32 | XMS_ITS | Encounter Summary ---
Author Organization [facility] [place] [address] Care Team Providers Care Solar Panel Installer Name Role Phone Judd Pizarro MD Primary Care Provider [phone] Encounter Details Date Type Department Care Team (Late st Contact Info) Description 05/10/2022 [place] [phone] Vee Heard MD [facility] DR [place] [address] Social History Tobacco Use Types Packs/Day Years [...] Heard MD - 05/10/2022 2:01 PM EDT [facility] Call Spoke to Diallo Priest NP [...] filedocumented in this encounter Care Teams Solar Panel Installer Relationship Specialty Start Date End Date Judd Pizarro MD [address] [place] [address] PCP - General Family Medicine 06/20/21 documented as of this encounter
--- OUTSIDE RECORDS SUMMARY | 2023-10-02 12:32 | XMS_ITS | Encounter Summary ---
Author Organization [facility] Address [facility] [place] [address] Care Team Providers Care Facilities Project Manager Name Role Phone Garth Marroquin DO Primary Care Provider [phone] Encounter Details Date Type Department Care Team (Latest Contact Info) Description 05/06/2021 2:00 PM EDT TH Visit (TeleHealth) Weight and Wellness at [address] [phone] Nolvia Saleh, RD [facility] [place] [address] Adult BMI 34.0-34.9 kg/sq m; Adult BMI [...] past visits. Please reach out with a [employer] message if you have any questions [...] Nutrition Change to whole wheat toast or [place] Muffin at breakfast. Instead of 4 eggs , have 2 eggs and peanut butter on the [place] muffin. When looking for a whole grain [...] was at home at the following address: [address] [place] [address] [address] [facility] [address] Weight Today: 213 lb from home scale [...] hunger. Typical Dietary Intake: B: 2-3 eggs, [place]se muffin L: dinner leftovers (not sure if [...] Nutrition Change to whole wheat toast or [place] Muffin at breakfast. Instead of 4 eggs , have 2 eggs and peanut butter on the [place] muffin. Consider changing to HalfNHalf or cream [...] track Change to whole wheat toast or [place] Muffin at breakfast. Instead of 4 eggs , have 2 eggs and peanut butter on the [place] muffin. When looking for a whole grain [...] initial visit Thank you Nolvia Saleh RD [facility] 60 minutes were spent in visit today, [...] adult documented in this encounter Care Teams Facilities Project Manager Relationship Specialty Start Date End Date Garth Marroquin DO [address] [place] [address] PCP - General Family Medicine 03/02/20 06/19/21 documented as of this encounter
--- OUTSIDE RECORDS SUMMARY | 2023-10-02 12:32 | XMS_ITS | Encounter Summary ---
Author Organization [facility] Address [address] [place] [address] Care Team Providers Care Attraction Attendant Name Role Phone Unavailable Primary Care Provider Unavailabl e Encounter Details Date Type Department Care Team (Latest Contact Info) Description 09/26/2014 11:21 EDT - 09/26/2014 23:59 EDT Hospital Encounter [address] [address] Unknown, Provider, Discharge Disposition: Home or Self Care Social History Tobacco Use Types Packs/Day Years Used Date Smoking Tobacco: Never Assessed Sex and Gender Information Value Date Recorded Sex Assigned at Not on file Gender Identity Not on file Sexual Orientation Not on file documented as of this encounter Discharge Disposition Disposition Code Departure Means Destination Home or Self Mcfp documented in this encounter Plan of Treatment Not on file documented as of this encounter Visit Diagnoses Not on filedocumented in this encounter
--- OUTSIDE RECORDS SUMMARY | 2023-10-02 12:32 | XMS_ITS | Encounter Summary ---
Author Organization [facility] Address [address] [place] [address] Care Team Providers Care Steel Barrel Reamer Name Role Phone Garth Marroquin DO Primary Care Provider [phone] Reason for Referral * Radiology Services (Routine) - Authorization Not Required Specialty Diagnoses / Procedures Referred By Contac t Referred To Contact Diagnoses Lung nodule Procedures CT CHEST W CONTRAST Troy Ray MD [address] [place] [phone] Referral ID Status Reason Start Date Expiration Date Visits Requested Visits Authorized [id number] Authorization Not Required 11/02/2017 1 1 Reason for Visit * Reason Comments New Patient Visit * Consult (Routine) - Closed Specialty Diagnoses / Procedures Referred By Contyashira grossman Referred To Contact Diagnoses Pulmonary nodule Garth Marroquin DO [address] [place] [phone] Referral ID Status Reason Start Date Expiration Date Visits Re quested Visits Authorized [id number] Closed 1 1 Encounter Details Date Type Department Care Team (Late st Contact Info) Description 11/02/2017 10:00 EDT Office Visit [facility] Pulmonology & Critical Care - [address] [phone] Troy Ray MD [address] [place] [phone] Lung nodule (Primary Dx) Discharge Disposition: Auto [...] nicotine overdose. Counseling available to assist you [place] [employer]uit [employer] You have chosen the [place] [employer]'s Quit by Phone program. Once you have [...] describedunder Medications to Help You Succeed. Call 9-806-OGUC-NOW ( ) or contact them via the [place] [employer] website at [email or web address] [email or web address]. I hope you quit smoking. I think it's the best thing you can do for your health. Please call our office if you have any questions. 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 He is [...] Medical History: Diagnosis Date ??? Diabetes mellitus ([facility]) ??? Hypertension ??? Obstructive sleep apnea [...] associated adenopathy. This can be done in [facility]. Following this, he may need a percutaneous biopsy or PET scan. 2. Active smoking. He is currently smoking 2 packs per day. We had a long discussion today about the risks of smoking particularly while we are evaluating potentially treating a lung cancer. Even if this does not turn sewer to be cancer, smoking cessation is strongly encouraged. We discussed using patches plus the nicotine inhaler. RECOMMENDATIONS 1. CT scan of the chest to be requested from [facility]. I instructed the patient to call our [...] of these investigations. Please call me at [phone] if any further questions arise. Troy Ray MD Pulmonary and Critical Care Medicine [facility] Other Orders Placed This Visit Procedures ??? [...] daily. added in this encounter Care Teams Steel Barrel Reamer Relationship Specialty Start Date End Date Garth Marroquin DO [address] [facility] [phone] PCP - General 10/30/17 documented as of this encounter
--- OUTSIDE RECORDS SUMMARY | 2023-10-02 12:32 | XMS_ITS | Clinical Summary ---
Author Organization [facility] Address [facility] [place] [address] Care Team Providers Care Parts Counter Salesperson Name Role Phone Judd Pizarro MD Primary Care Provider [phone] Allergies Active Allergy Reactions Criticality Noted Date [...] by mouth daily. 02/17/2022 Active HYDROcodone-acetam inophen ([place]) 5-325 mg Tablet TAKE 1 TABLET BY [...] Date/Time Associated Diagnosis Comments COMPREHENSIVE METABOLIC PANEL Routine 02/20/2022 5:47 PM EST Class 2 [...] Hemoglobin A1c (02/20/2022 5:47 PM EST) Hemoglobin A1c 6.2(H) 4.3 - 5.6 % [facility] Comment: Reference Range: 4.3 - 5.6% [...] Mellitus, Diabetes Care 2013; 36: Suppl. 1, I21-46 Estimated Average Glucose 130 mg/dL [facility] Comment: eAG equivalents for HbA1c percentages: [...] into estimated average glucose values. ??Diabetes Care 2008:31(8):7807-3751. Blood 02/20/2022 5:47 PM EST 02/20/2022 5:54 PM EST Narrative Resulting Agency Comment Spec In Lab Tessie Robles MD CHEMISTRY ORDERABLES [facility] [place] [address] * (ABNORMAL) Comprehensive metabolic panel (non-fasting) (02/20/2022 5:47 PM EST) Glucose 134 65 - 199 mg/dL [facility] Comment:Diabetes: >=200 mg/d L plus symptoms Blood Urea Nitrogen 16 10 - 20 mg/dL [facility] Creatinine 1.16 0.80 - 1.50 mg/dL [facility] Sodium 139 135 - 145 mmol/L [facility] Potassium 4.3 3.5 - 5.0 mmol/L [facility] Comment: Please note: ??Patients with WBC >100,000 may have falsely elevated Potassium levels. ??For accurate Potassium quantification in these patients send serum separator tube (gold top) for subsequent determinations. ??Contact the Clinical Chemistry Laboratory if there are any questions. Chloride 105 98 - 107 mmol/L [facility] Carbon Dioxide 21(L) 22 - 31 mmol/L [facility] Anion Gap 13 5 - 15 mmol/L [facility] Calcium 9.4 8.5 - 10.5 mg/dL [facility] Protein, Total 6.9 6.1 - 8.0 g/dL [facility] Albumin 4.4 3.2 - 5.2 g/dL [facility] Aspartate Aminotransferase 14 0 - 39 unit/L [facility] Alanine Aminotransferase 26 0 - 55 unit/L [facility] Alkaline Phosphatase 120 40 - 130 unit/L [facility] Bilirubin, Total <0.2(L) 0.2 - 1.3 mg/dL [facility] Est Glomerular Filtration Rate 73 >=60 mL/min/1. 73 m?? [facility] Comment: This patient's estimated GFR was [...] In Lab Tessie Robles MD CHEMISTRY ORDERABLES [facility] [place] [address] from Last 3 Months or Most Recently Relevant to Health Maintenance Advance Directives Documents on File Type Date Recorded Patient Glass Sander Expl anation Advance Directives and Livin g Will 03/23/2017 11:39 AM * Full Code (Latest Code Status on File) Date Activated Date Inactivated Comments 03/20/2017 2:40 PM 03/21/2017 3:33 PM Question Answer Comments Does patient have capacity to make decision: Yes Care Teams Parts Counter Salesperson Relationship Specialty Start Date End Date Judd Pizarro MD [address] [place] [phone] PCP - General Family Medicine 06/20/21
--- OUTSIDE RECORDS SUMMARY | 2023-10-02 12:32 | XMS_ITS | Encounter Summary ---
Author Organization [facility] [place] [address] Care Team Providers Care Top Frame Maker Name Role Phone Judd Pizarro MD Primary Care Provider [phone] Reason for Visit * Reason Onset Date Comments Appointment 11/29/2021 Encounter Details Date Type Department Care Team ([facility] st Contact Info) Description 11/29/2021 Telephone Weight and Wellness at [facility] [address] [place] [phone] Mariam Reynoso V Appointment Social History Tobacco [...] on filedocumented in this encounter Care Teams Top Frame Maker Relationship Specialty Start Date End Date Judd Pizarro MD [address] [place], [place] [address] [phone] PCP - General Family Medicine 06/20/21 documented as of this encounter
--- OUTSIDE RECORDS SUMMARY | 2023-10-02 12:32 | XMS_ITS | Encounter Summary ---
Author Organization [facility] [address] [facility] [place] [address] Care Team Providers Care Cognos Tm1 Developer Name Role Phone Judd Pizarro MD Primary Care Provider [phone] Encounter Details Date Type Department Care Team [...] on filedocumented in this encounter Care Teams Cognos Tm1 Developer Relationship Specialty Start Date End Date Judd Pizarro MD [address] [place] [address] PCP - General Family Medicine 06/20/21 documented as of this encounter
--- OUTSIDE RECORDS SUMMARY | 2023-10-02 12:32 | XMS_ITS | Encounter Summary ---
Author Organization [facility] Address [address] [place] [address] Care Team Providers Care Vending Machine Assembler Name Role Phone Garth Marroquin DO Primary Care Provider [phone] Encounter Details Date Type Department Care Team (Late st Contact Info) Description 11/06/[address] [facility] [phone] Unknown, Provider, Social History Tobacco Use Types [...] on filedocumented in this encounter Care Teams Vending Machine Assembler Relationship Specialty Start Date End Date Garth Marroquin DO [address] [place] [address] PCP - General 10/30/17 documented as of this encounter
--- OUTSIDE RECORDS SUMMARY | 2023-10-02 12:32 | XMS_ITS | Encounter Summary ---
Author Organization [facility] Address [address] [place] [address] Care Team Providers Care Software Client Architect Name Role Phone Garth Marroquin DO Primary Care Provider [phone] Encounter Details Date Type Department Care Team (Latest Contact Info) Description 05/14/2018 8:47 EDT - 05/14/2018 23:59 EDT Hospital Encounter [address] [address] Unknown, Provider, Discharge Disposition: Home or Self [...] on filedocumented in this encounter Care Teams Software Client Architect Relationship Specialty Start Date End Date Garth Marroquin DO [address] [place] [address] PCP - General 10/30/17 documented as of this encounter
--- OUTSIDE RECORDS SUMMARY | 2023-10-02 12:32 | XMS_ITS | Encounter Summary ---
Author Organization Formerly [facility] Address [facility] [place] [address] Care Team Providers Care Contact Lens Molder Name Role Phone Judd Pizarro MD Primary Care Provider [phone] Reason for Visit * Reason Comments Follow-up Weight management Encounter Details Date Type Department Care Team ([facility] st Contact Info) Description 02/20/2022 4:30 PM EST Office Visit Weight and Wellness at [address] [phone] Tessie Robles MD [facility] [address] [place] [address] Class 2 obesity with body mass index [...] Robles MD - 02/20/2022 4:30 PM EST [facility] [place] Patient Name: Pavan Padilla Date of : 1965 Age: 56 [...] Osteoarthritis. This is a Visit #4 [facility] visit for this 56 y.o. patient. Weight gain due to: less activity, weight gaining medications, increased intake and [facility] Barriers: adentulous Initial visit: 09/27/20 Initial weight: 231# Initial BMI: 38.17 kg/m??. Goal weight: 165 10% loss: 210# Other goals: Improve diabetes Today's weight: 233 Change since prior: + 16# [facility] Team: Tessie Robles MD, Nolvia Saleh RD and Agiular Lagunas, Health Cuff Turner - all pending HPI Patient here today [...] 141 09/27/2020 Lab Results Component Value Date [id number] 09/27/2020 25-OH Vit D Total (ng/mL) [...] about 3 months (around 05/21/2022) for MD Zoom or clinic. * Tessie Robles MD - [...] current use of insulin COMPREHENSIVE METABOLIC PANEL Routine 02/20/2022 5:47 PM EST Class 2 obesity with body mass index (BMI) of 38.0 to 38.9 in adult, unspecified obesity type, unspecified whether serious comorbidity present SOB (shortness of breath) documented in this encounter Results * LDL Cholesterol, Direct (02/20/2022 5:47 PM EST) LDL Cholesterol, Direct 52 mg/dL [facility] Comment: Lowest Risk: <100 mg/dL Lower Risk: 100-129 mg/dL Borderline High Risk: 130-159 mg/dL High Risk: 160-189 mg/dL Very High Risk: >yu=065 mg/dL Blood 02/20/2022 5:47 PM EST 02/20/2022 6:00 PM EST Narrative Resulting Agency Comment Spec In Lab Tessie Robles MD [place] [address] * (ABNORMAL) Differential, Automated (02/20/2022 5:47 PM EST) Neutrophil % 52.2 % [facility] Neutrophil Absolute 5.61 1.70 - 6.10 x10(3)/mc L [facility] Lymph % 33.6 % [facility] Lymphocytes Abs 3.6(H) 0.9 - 3.2 x10(3)/mc L [facility] Monocyte % 8.4 % [facility] Monocyte Abs 0.9 0.3 - 0.9 x10(3)/ L [facility] Eos % 2.4 % [facility] Eosinophils Abs 0.3 0.0 - 0.4 x10(3)/[facility] Basophil % 1.3 % [facility] Baso Absolute 0.1 0.0 - 0.1 x10(3)/ L [facility] Immature Gran % 2.10 % [facility] Comment: Immature granulocytes(IG's)percentage and absolute count will include metamyelocytes, myelocytes, and promyelocytes. Blood smears from CBCs yielding IG's will be scanned manually for concordance. If this scan disagrees with the automated IG or if promyelocytes are noted, a manual differential will be performed. Immature Gran Absolute 0.22(H) 0.00 - 0.04 x10(3)/ L [facility] Blood 02/20/2022 5:47 PM EST 02/20/2022 5:54 PM EST Narrative Resulting Agency Comment Spec In Lab Tessie Robles MD HEMATOLOGY ORDERABLE S Performing Organization Address City/[facility]/[place] [address] * (ABNORMAL) Hemogram (02/20/2022 5:47 PM EST) White Blood Cell 10.7(H) 4.0 - 9.5 x10(3)/mc L [facility] Red Blood Cell 5.71(H) 4.58 - 5.54 x10(6)/mc L [facility] Hemoglobin 17.4(H) 13.7 - 16.5 g/dL [facility] Hematocrit 50.7(H) 40.5 - 48.5 % [facility] Mean Cell Volume 88.8 82.9 - 93.1 fL [facility] Mean Cell Hemoglobin 30.5 27.5 - 32.1 pg [facility] Mean Cell Hemoglobin Concentration 34.3 32.0 - 35.7 g/dL [facility] Platelet 220 145 - 357 x10(3)/mc L [facility] RDW Standard Deviation 41.6 36.0 - 45.0 fL [facility] RDW coefficient of variation 12.8 11.4 - 13.8 % [facility] Mean Platelet Volume 10.7 7.6 - 12.9 fL [facility] NRBC% auto 0.0 % [facility] NRBC Absolute 0.000 0.000 - 0.000 x10(3)/mc L [facility] Blood 02/20/2022 5:47 PM EST 02/20/2022 5:54 PM EST Narrative Resulting Agency Comment Spec In Lab Tessie Robles MD HEMATOLOGY ORDERABLE S Performing Organization Address City/[facility] Co de Phone Number [facility] [address] * Biorepository Request (02/20/2022 5:47 PM EST) Pathologist [facility] Biorepository Hold Sample in lab [facility] Blood 02/20/2022 5:47 PM EST 02/21/2022 11:01 AM EST Narrative Resulting Agency Comment Spec In Lab Tessie Robles MD MOLECULAR ORDERABLES Performing Organization Address City/[facility]/ZIP Co de Phone Number [facility] [place] [address] * Lipid Panel (Reflex Direct LDL) (02/20/2022 5:47 PM EST) Pathologist [facility] Cholesterol, Total 134 mg/dL [facility] Comment: Lower Risk: <200 mg/dL Average Risk: 200-239 mg/dL Higher Risk: >hh=146 mg/dL Triglyceride 536 mg/dL [facility] Comment: Average Risk/Lower Risk: <150 mg/dL Borderline High Risk: 150-199 mg/dL High Risk: 200-499 mg/dL Very High Risk: >rg=921 mg/dL HDL Cholesterol 25 mg/dL [facility] Comment: Males: ?? Higher Risk: <40 mg/dL Females: ?? Higher Risk: <50 mg/dL LDL Cholesterol Not Calculated [facility] Comment: Calculated LDL value is not valid for triglycerides greater than 400 mg/dl. Lowest Risk: <100 mg/dL Lower Risk: 100-129 mg/dL Borderline High Risk: 130-159 mg/dL High Risk: 160-189 mg/dL Very High Risk: >ke=356 mg/dL Cholesterol/HDL Ratio 5.4 ratio [facility] Lipid Interpretation See Note [facility] Comment: Lipid management should be guided by a patient? s ASCVD risk, goals and preferences. ACC/AHA Guidelines recommend high intensity statin if clinical ASCVD or LDL greater than or equal to 190 mg/dL. http://DeepFlex.com/DBC-UHA-Gbdphnyzh Adults aged 40-75 with LDL 70-189 mg/dL should have their 10 year ASCVD risk estimated with the ACC/AHA ASCVD risk stockroom supervisor http://tools.acc.org/OTFDY-Rbpj-Tkbfwfeoh/ Statin should be discussed if risk greater [...] In Lab Tessie Robles MD CHEMISTRY ORDERABLES [facility] [place] [address] * (ABNORMAL) Hemoglobin A1c (02/20/2022 5:47 PM EST) Hemoglobin A1c 6.2(H) 4.3 - 5.6 % [facility] Comment: Reference Range: 4.3 - 5.6% [...] Mellitus, Diabetes Care 2013; 36: Suppl. 1, I92-39 Estimated Average Glucose 130 mg/dL [facility] Comment: eAG equivalents for HbA1c percentages: [...] into estimated average glucose values. ??Diabetes Care 2008:31(8):4422-4814. Blood 02/20/2022 5:47 PM EST 02/20/2022 5:54 PM EST Narrative Resulting Agency Comment Spec In Lab Tessie Robles MD CHEMISTRY ORDERABLES [facility] [address] * (ABNORMAL) Comprehensive metabolic panel (non-fasting) (02/20/2022 5:47 PM EST) Glucose 134 65 - 199 mg/dL [facility] Comment:Diabetes: >=200 mg/d L plus symptoms Blood Urea Nitrogen 16 10 - 20 mg/dL [facility] Creatinine 1.16 0.80 - 1.50 mg/dL [facility] Sodium 139 135 - 145 mmol/L [facility] Potassium 4.3 3.5 - 5.0 mmol/L [facility] Comment: Please note: ??Patients with WBC >100,000 may have falsely elevated Potassium levels. ??For accurate Potassium quantification in these patients send serum separator tube (gold top) for subsequent determinations. ??Contact the Clinical Chemistry Laboratory if there are any questions. Chloride 105 98 - 107 mmol/L [facility] Carbon Dioxide 21(L) 22 - 31 mmol/L [facility] Anion Gap 13 5 - 15 mmol/L [facility] Calcium 9.4 8.5 - 10.5 mg/dL [facility] Protein, Total 6.9 6.1 - 8.0 g/dL [facility] Albumin 4.4 3.2 - 5.2 g/dL [facility] Aspartate Aminotransferase 14 0 - 39 unit/L [facility] Alanine Aminotransferase 26 0 - 55 unit/L [facility] Alkaline Phosphatase 120 40 - 130 unit/L [facility] Bilirubin, Total <0.2(L) 0.2 - 1.3 mg/dL [facility] Est Glomerular Filtration Rate 73 >=60 mL/min/1. 73 m?? [facility] Comment: This patient's estimated GFR was [...] In Lab Tessie Robles MD CHEMISTRY ORDERABLES [facility] [place] [address] documented in this encounter Visit Diagnoses Diagnosis [...] present documented in this encounter Care Teams Contact Lens Molder Relationship Specialty Start Date End Date Judd Pizarro MD [address] [place] [address] PCP - General Family Medicine 06/20/21 documented as of this encounter
--- OUTSIDE RECORDS SUMMARY | 2023-10-02 12:32 | XMS_ITS | Encounter Summary ---
Author Organization [facility] [place] [address] Care Team Providers Care Administrative Operations Coordinator Name Role Phone Garth Marroquin DO Primary Care Provider [phone] Encounter Details Date Type Department Care Team (Late st Contact Info) Description 12/27/2020 Telephone Weight and Wellness at [facility] [address] [place] [address] Emilie Galvan, RN Social History [...] on filedocumented in this encounter Care Teams Administrative Operations Coordinator Relationship Specialty Start Date End Date Garth Marroquin DO [address] [place] [address] PCP - General Family Medicine 03/02/20 06/19/21 documented as of this encounter
--- OUTSIDE RECORDS SUMMARY | 2023-10-02 12:32 | XMS_ITS | Encounter Summary ---
Author Organization [facility] Address [facility] [place] [address] Care Team Providers Care Hay Stacker Operator Name Role Phone Judd Pizarro MD Primary Care Provider [phone] Reason for Visit * Reason Comments Hospital Transfer Back Pain Encounter Details Date Type Department Care Team (Late st Contact Info) Description 05/10/2022 4:32 PM EDT - 05/10/2022 10:25 PM EDT Emergency [place] [address] Ann Marie Newton MD [facility] [place] [address] Meir Sutherland MD [facility] [place] [address] Low back pain, non-specific Discharge Disposition: Home Social History Tobacco Use Types Packs/Day Years Used Date Smoking Tobacco: Every Day Cigarettes 1.5 38 Smokeless Tobacco: Never Alcohol Use Standard Drinks/Week Comments No 0 (1 standard drink = 0.6 oz pure alcohol) Formerly heavy - stopped a few years ago. [facility] Inpatient Questions Answer Date Recorded Does Anyone [...] sent through Care Everywhere. * Back Pain (Filipino) * Back: Preventing Injuries (Filipino) documented in this encounter Medications at Time [...] mg by mouth daily. 02/17/2022 HYDROcodone-acetamino phen ([place]) 5-325 mg Tablet TAKE 1 TABLET BY [...] who have questions please contact the health career advisor that requested your imaging first. Electronically signed by: Judd Moreno MD, [facility] ([phone]), at 05/10/2022 6:59 PM U/A: RBC 5 [...] incontinence last night. He was sent from [facility] for and MRI to rule out caude equina. He presented to the emergency department at [facility] with concerns of urinary incontinence He received [...] who have questions please contact the health career advisor that requested your imaging first. Electronically signed by: Judd Moreno MD, [facility] ([phone]), at 05/10/2022 6:59 PM Spine recommends medrol dose pack. Discharge home. F/u PCP. No surgical intervention indicated at this tie. Assessment/plan: Low back pain Urinary incontinence D/c home F/u PCP Rx Medrol dose pack Return precautions Ann Marie Newton MD 05/10/222034 * Garth Dalal RN - 05/10/2022 3:51 PM EDT Sending Facility: [facility] Reason for Transfer: rule out caudia equina Report: Patient is an alert and oriented 56-year-old male who presented to the emergency department at [facility] with concerns of urinary incontinence. Patient had seen his primary care provider 2 to 3 weeks prior for some lower back pain. Patient had no new trauma or injury to provoke this urinary incontinence. Patient is being transferred to [facility] emergency department for an MRI to rule out cauda equina. Patient is otherwise alert, oriented, pink warm and dry. Vital signs of been stable. 1 g of Tylenol and 10 mg of Decadron have been given Vital Signs: Pulse: B/P: Resp: SPO2: O2 LPM: GCS: BGL: Temp: STEMI ALERT: Has the EKG been transmitted? Yes/No STROKE ALERT: Last Known Well Time: Carlyle Stroke Scale: + / - FAST-ED Score: TRAUMA ALERT: T9 Alert Consult Lowest Documented BP Transporting Service: [facility] Time of Departure: ETA: 1620 documented in this encounter Miscellaneous Notes * Consult Note - Vee Heard MD - 05/10/2022 10:20 PM EDT Orthopaedic Spine Consult Note Attending: Dr. Dallas Padilla is a 56 y.o. male who presents [...] 10 mg by mouth daily. ??? HYDROcodone-acetaminophen ([place]) 5-325 mg Tablet TAKE 1 TABLET BY [...] Urinalysis Microscopic Exam (05/10/2022 9:12 PM EDT) RBC, Urine 5(H) 0 - 3 /HPF [facility] WBC, Urine 0 0 - 3 /HPF [facility] Urine 05/10/2022 9:12 PM EDT 05/10/2022 9:16 PM EDT Narrative Resulting Agency Comment Spec In Lab Danish Arana MD URINE ORDERABLES [facility] [place] [address] * (ABNORMAL) Urinalysis with reflex Culture (05/10/2022 9:12 PM EDT) Glucose, Urine Dipstick Negative Negative mg/dL [facility] Protein, Urine Dipstick Negative Negative mg/dL [facility] Bilirubin, Urine Dipstick Negative Negative mg/dL [facility] Comment: Clinical correlation required for positive Urine Bilirubin results as false positive may occur with some drugs and drug related products. If a false positive is suspected a serum total bilirubin should be considered if clinically indicated. Urobilinogen, Urine Dipstick Normal Normal mg/dL [facility] pH, Urn (dipstick) 6.5 5.0 - 8.0 [facility] Blood, Urine Dipstick Small(A) Negative mg/dL [facility] Ketone, Urine Dipstick Negative Negative mg/dL [facility] Nitrite, Urine Dipstick Negative Negative [facility] Leukocytes, Urine Dipstick Negative Negative mcL [facility] Appearance, Urine Dipstick Clear Clear [facility] Specific [place] Urine Automated 1.013 1.005 - 1.030 [facility] Color, Urine Dipstick Yellow Yellow [facility] Reflex to Culture No [facility] Urine 05/10/2022 9:12 PM EDT 05/10/2022 9:16 PM EDT Narrative Resulting Agency Comment Spec In Lab Ann Marie Newton MD URINE ORDERABLES Performing Organization Address City/State/[facility] Co de Phone Number [facility] [place] [address] * MRI Lumbar Spine wo Contrast (Generic) [...] who have questions please contact the health career advisor that requested your imaging first. ? Electronically signed by: Judd Moreno MD, [facility] ([phone]), at 05/10/2022 6:59 PM Narrative 05/10/2022 6:59 PM EDT EXAMINATION: MRI LUMBAR SPINE WO CONTRAST (GENERIC) CLINICAL HISTORY: Low back pain, cauda equina syndrome suspected Low back pain, cauda equina syndrome suspected TECHNIQUE: MRI of the lumbar spine performed without intravenous contrast administration. COMPARISON: CT lumbar spine dated 05/10/2022 from [facility] FINDINGS: Normal alignment of the 5 lumbar [...] COMPARISON: CT lumbar spine dated 05/10/2022 from [facility] FINDINGS: Normal alignment of the 5 lumbar type vertebral bodies. There is minimal retrolisthesis of L5 on S1 similar to CT examination. Vertebral bodies are normal in height. There is anterior endplateproliferative and reactive changes T11-12 and T12-L1 and to lesser extent L1-2. Disc space narrowing and decreased signal intensity on T2 sequence [id number]. The remaining intervertebral disc spaces are normal [...] the clinical situation (Reference- Vishnuvik Et Al, [id number]). Findings: (Prevalence in patients without low back [...] patients who have questions please contactthe health career advisor that requested your imaging first. Electronically signed by: Judd Moreno MD, [facility]([phone]), at 05/10/2022 6:59 PM Ann Marie Newton MD IM MRI ORDERABLES [...] RN) documented in this encounter Care Teams Hay Stacker Operator Relationship Specialty Start Date End Date Judd Pizarro MD [facility] [place] [address] PCP - General Family Medicine 06/20/21 documented as of this encounter
--- OUTSIDE RECORDS SUMMARY | 2023-10-02 12:32 | XMS_ITS | Encounter Summary ---
Author Organization [facility] [place] [address] Care Team Providers Care Occupational Therapy Instructor Name Role Phone Garth Marroquin DO Primary Care Provider [phone] Encounter Details Date Type Department Care Team (Late st Contact Info) Description 05/07/2021 Telephone Sleep Center at [facility] [address] [place] [phone] Emilie Galvan, RN Social History Tobacco Use [...] on filedocumented in this encounter Care Teams Occupational Therapy Instructor Relationship Specialty Start Date End Date Garth Marroquin DO [address] [place] [address] PCP - General Family Medicine 03/02/20 06/19/21 documented as of this encounter
--- OUTSIDE RECORDS SUMMARY | 2023-10-02 12:32 | XMS_ITS | Encounter Summary ---
Author Organization [facility] Address [address] [place] [address] Care Team Providers Care Fiber Technician Name Role Phone Garth Marroquin DO Primary Care Provider [phone] Encounter Details Date Type Department Care Team (Late st Contact Info) Description 12/16/2017 Pre-Procedure Orders Encounter [facility] Interventional Radiology Unit [address] [place] [address] Nicholas Tabares PA-C [address] [facility] [address] [place] [phone] Social History Tobacco Use Types Packs/Day Years [...] on filedocumented in this encounter Care Teams Fiber Technician Relationship Specialty Start Date End Date Garth Marroquin DO [address] [place] [phone] PCP - General 10/30/17 documented as of this encounter
--- OUTSIDE RECORDS SUMMARY | 2023-10-02 12:32 | XMS_ITS | Encounter Summary ---
Author Organization [facility] Address [address] [place] [address] Care Team Providers Care Pulpwood Cutter Name Role Phone Garth Marroquin DO Primary Care Provider [phone] Reason for Visit * Reason Onset Date Comments Appointment Related 11/30/2017 Reschedule I R Biopsy Encounter Details Date Type Department Care Team (Late st Contact Info) Description 11/30/2017 Telephone [facility] Interventional Radiology - [facility] [address] [place], [place] [id number] Colton Edmond MD [address] [facility], [address] [place] [address] Appointment Related (Reschedule IR Biopsy) [...] on filedocumented in this encounter Care Teams Pulpwood Cutter Relationship Specialty Start Date End Date Garth Marroquin DO [address] [place] [phone] PCP - General 10/30/17 documented as of this encounter
--- OUTSIDE RECORDS SUMMARY | 2023-10-02 12:32 | XMS_ITS | Encounter Summary ---
Author Organization [facility] [place] [address] Care Team Providers Care Photocopy Operator Name Role Phone Judd Pizarro MD Primary Care Provider [phone] Encounter Details Date Type Department Care Team (Late st Contact Info) Description 06/25/2021 External Results Weight and Wellness at [facility] [address] [place] [phone] Emilie Galvan, RN Social History Tobacco Use [...] Procedure Name Priority Date/Time Associated Diagnosis Comments [facility] EXTERNAL RESULT PANEL Routine 04/17/2021 HEMOGLOBIN A1C Routine 03/08/2021 documented in this encounter Results * (ABNORMAL) [facility] External Results (04/17/2021) Glucose Fasting 87 Blood Urea Nitrogen 16 Creatinine 1.3 Sodium 140 Potassium 4.5 Chloride 105 Carbon Dioxide 22 Anion Gap 13(H) Calcium 9.3 Protein, Total 7.2 Albumin 4.2 Aspartate Aminotransferase 22 Alanine Aminotransferase 33 Alkaline Phosphatase 88 Bilirubin, Total 0.4 Est Glomerular Filtration Rate 56.9 Thyroid Stimulating Hormone 0.71 04/17/2021 Historical Provider POINT OF CARE KENNEY T ORDERABLES * (ABNORMAL) Hemoglobin A1c (03/08/2021) Hemoglobin A1c 5.9(H) Blood 03/08/2021 Historical Provider CHEMISTRY ORDERAB LES documented in this encounter Visit Diagnoses Not on filedocumented in this encounter Care Teams Photocopy Operator Relationship Specialty Start Date End Date Judd Pizarro MD [facility] [place] [address] PCP - General Family Medicine 06/20/21 documented as of this encounter
--- OUTSIDE RECORDS SUMMARY | 2023-10-02 12:32 | XMS_ITS | Encounter Summary ---
Author Organization [facility] [address] Care Team Providers Care Water Purifier Operator Name Role Phone Judd Pizarro MD Primary Care Provider [phone] Reason for Visit * Reason Onset Date Comments Appointment 09/27/2021 Encounter Details Date Type Department Care Team (Late st Contact Info) Description 09/27/2021 Telephone Weight and Wellness at [facility] [address] [place] [address] Daria Huynh Appointment Social History [...] on filedocumented in this encounter Care Teams Water Purifier Operator Relationship Specialty Start Date End Date Judd Pizarro MD [facility] [place] [address] PCP - General Family Medicine 06/20/21 documented as of this encounter
--- OUTSIDE RECORDS SUMMARY | 2023-10-02 12:32 | XMS_ITS | Encounter Summary ---
Author Organization [facility] Address [facility] [place] [address] Care Team Providers Care Sight Effects Specialist Name Role Phone Garth Marroquin DO Primary Care Provider [phone] Encounter Details Date Type Department Care Team (Late st Contact Info) Description 04/04/2021 Orders Only Weight and Wellness at [place] [address] [place] [phone] Tessie Robles MD [facility] [address] [place] [address] Obesity, unspecified classification, unspecified obesity type, unspecified [...] present documented in this encounter Care Teams Sight Effects Specialist Relationship Specialty Start Date End Date Garth Marroquin DO [address] [place] [address] PCP - General Family Medicine 03/02/20 06/19/21 documented as of this encounter
--- OUTSIDE RECORDS SUMMARY | 2023-10-02 12:32 | XMS_ITS | Encounter Summary ---
Author Organization [facility] [place] [address] Care Team Providers Care Egg Smeller Name Role Phone Garth Marroquin DO Primary Care Provider [phone] Encounter Details Date Type Department Care Team (Late st Contact Info) Description 03/21/2021 Telephone Weight and Wellness at [facility] [address] [place] [address] Martina Jerome, DONOVAN Social History [...] PM EST [facility] Investigative Reporter Pre-telemedicine Visit Phone Note Pavan Padilla 1965 [x] Patient was not reached Patient was reached and the following information was reviewed/obtained per protocol: [] Confirmed patient name and date of [] Confirmed ZOOM downloaded and functioning [] ZOOM appointment link sent if no MyDH [] Phone number to be reached is: [phone] REVIEW: [] Review of patient medications completed [...] on filedocumented in this encounter Care Teams Egg Smeller Relationship Specialty Start Date End Date Garth Marroquin DO [address] [place] [address] PCP - General Family Medicine 03/02/20 06/19/21 documented as of this encounter
--- OUTSIDE RECORDS SUMMARY | 2023-10-02 12:32 | XMS_ITS | Encounter Summary ---
Author Organization [facility] Address [facility] [place] [address] Care Team Providers Care Camera Repairer Name Role Phone Judd Pizarro MD Primary Care Provider [phone] Encounter Details Date Type Department Care Team (Late st Contact Info) Description 09/26/2021 10:45 AM EDT TH Visit (TeleHealth) Weight and Wellness at [address] [address] [facility] [place] [address] Adult BMI 34.0-34.9 kg/sq m Social History [...] in past visits.Please reach out with a myDH message if you have any questions or [...] was at home at the following address: [address] [place] [address] Weight Today: Wt Readings from Last 3 [...] eggs, white toast, sausage or fox L: [place]-ham or turkey, cheese, mustard, sometimes lettuce D: Burgers or chicken on grill, cauliflower or broccoli, or fresh peas or other veg from garden S: ~ 5pm bowl of ice cream-2 scoops Typical Beverages: [x] coffee [] half and half (unflavored) [x] flavored creamer (sugar) [place]ian vanilla [] flavored creamer (sugar-free) [] added sugar - (total: [] added non-caloric sweetener [x] water - (total: 2-3 bottles, 1 near the bed at night [x] plain [] crystal light or other sugar-free additive [] [place] (natural or artificial flavoring or plain only) [...] adult documented in this encounter Care Teams Camera Repairer Relationship Specialty Start Date End Date Judd Pizarro MD [facility] [address] PCP - General Family Medicine 06/20/21 documented as of this encounter
--- OUTSIDE RECORDS SUMMARY | 2023-10-02 12:32 | XMS_ITS | Encounter Summary ---
Author Organization [facility] [place] [address] Care Team Providers Care It Training Specialist Name Role Phone Garth Marroquin DO Primary Care Provider [phone] Encounter Details Date Type Department Care Team (Late st Contact Info) Description 04/30/2021 Telephone Weight and Wellness at [facility] [address] [place] [address] Emilie Galvan, RN Social History [...] on filedocumented in this encounter Care Teams It Training Specialist Relationship Specialty Start Date End Date Garth Marroquin DO [address] [place] [address] PCP - General Family Medicine 03/02/20 06/19/21 documented as of this encounter
--- OUTSIDE RECORDS SUMMARY | 2023-10-02 12:32 | XMS_ITS | Encounter Summary ---
Author Organization [facility] Address [facility] [place] [address] Care Team Providers Care Air Defense Artillery Senior Sergeant Name Role Phone Judd Pizarro MD Primary Care Provider [phone] Reason for Visit * Reason Comments Follow-up Weight managment Encounter Details Date Type Department Care Team ([facility] st Contact Info) Description 06/20/2021 9:15 AM EDT Office Visit Weight and Wellness at [address] [address] Tessie Robles MD [facility] [address] [place] [address] Class 1 obesity due to excess calories [...] 06/20/2021 9:[address] Fournier - [facility]. I will try to get the results [...] seen while via [] Video [] phone [facility] [place] Patient Name: Pavan Padilla Date of : [...] withneuropathy, Osteoarthritis. This is a Visit #4 [facility] visit for this 55 y.o. patient. Weight gain due to: less activity, weight gaining medications, increased intake and frequent snacking on UHPF Barriers: adentulous Initial visit: 09/27/20 Initial weight: 231# Initial BMI: 38.17 kg/m??. Goal weight: 165 10% loss: 210# Other goals: Improve diabetes Today's weight: 217 Change since prior: -2.75# [facility] Team: Tessie Robles MD, Nolvia Saleh RD and Aguilar Lagunas, Health Dehydrogenation Operator - all pending HPI HYPOTENSION - noted [...] behavioral interventions, see goals Referrals: Dietitian, Health Dehydrogenation Operator, AOM: Increase semaglutide for DM and weight [...] On track( 10:41 AM EDT) No Nolvia Saleh, RANJEET [...] present documented in this encounter Care Teams Air Defense Artillery Senior Sergeant Relationship Specialty Start Date End Date Jdud Pizarro MD [address] [place] [address] PCP - General Family Medicine 06/20/21 documented as of this encounter
--- OUTSIDE RECORDS SUMMARY | 2023-10-02 12:32 | XMS_ITS | Encounter Summary ---
Author Organization [facility] Address [address] [place] [address] Care Team Providers Care Pottery Decoration Designer Name Role Phone Unavailable Primary Care Provider Unavailabl e Encounter Details Date Type Department Care Team (Late st Contact Info) Description 03/13/2002 Results Only [facility] - Maple conversion [address] [place] [address] Zhanna Ho MD [address] [place] [phone] Social History Tobacco Use Types Packs/Day [...] ? MANNIE RODRIGUEZ ? Accession #: ? [id number] : ? 1965 (Age: 36) ??M ?Collect Date: ? 03/13/2002 Location: ? [facility] ? Receive Date: ? 03/15/2002 Provider: ? ZHANNA HO MD Copy to: ?LITZY WILSON COW TESTER ? CYTOLOGIC DIAGNOSIS: ? Urine, voided, cytologic material: - No malignant cells identified. ??See comment. ? COMMENT: ? The specimen is overall of very low cellularity. ??There are rare markedly degenerated but benign appearing transitional cells present. ??(Dr. Faith)/[facility] Document reviewed and electronically signed by: ? [...] TRACEY COLE 03/13/2002 03/15/2002 8:4 3 EST Zhanna Ho MD PATHOLOGY ORDERABLES TRACEY COLE [address] [place] [address] documented in this encounter Visit Diagnoses Not on filedocumented in this encounter
--- OUTSIDE RECORDS SUMMARY | 2023-10-02 12:32 | XMS_ITS | Encounter Summary ---
Author Organization [facility] Address [address] [place] [address] Care Team Providers Care Director Community Health Nursing Name Role Phone Garth Marroquin DO Primary Care Provider [phone] Encounter Details Date Type Department Care Team (Late st Contact Info) Description 11/09/2017 Orders Only [facility] Pulmonology & Critical Care - [address] [address] Troy Ray MD [address] [facility], Level [address] [place] [phone] Lung nodule (Primary Dx) Social History Tobacco [...] nodule documented in this encounter Care Teams Director Community Health Nursing Relationship Specialty Start Date End Date Garth Marroquin DO [address] [place] [address] PCP - General 10/30/17 documented as of this encounter
--- OUTSIDE RECORDS SUMMARY | 2023-10-02 12:32 | XMS_ITS | Encounter Summary ---
Author Organization [facility] Address [address] [place] [address] Care Team Providers Care Dinkey Skinner Name Role Phone Garth Marroquin DO Primary Care Provider [phone] Reason for Visit * Reason Onset Date Comments Appointment Related 11/17/2017 IR BX Encounter Details Date Type Department Care Team (Late st Contact Info) Description 11/17/2017 Telephone [facility] Interventional Radiology - [facility] [address] [place], [place] [id number] Colton Edmond MD [address] [facility], Level [address] [place] [address] Appointment Related (IR BX ) [...] 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
--- OUTSIDE RECORDS SUMMARY | 2023-10-02 12:32 | XMS_ITS | Encounter Summary ---
Author Organization [facility] [place] [address] Care Team Providers Care Press Set Up Person Name Role Phone Garth Marroquin DO Primary Care Provider [phone] Reason for Visit * Reason Onset Date Comments Appointment 04/01/2021 Encounter Details Date Type Department Care Team (Late st Contact Info) Description 04/01/2021 Telephone Weight and Wellness at [facility] [address] [place] [address] Daria Huynh Appointment Social History [...] filedocumented in this encounter Care Teams Press Set Up Person Relationship Specialty Start Date End Date Garth Marroquin DO [address] [place] [address] PCP - General Family Medicine 03/02/20 06/19/21 documented as of this encounter
--- OUTSIDE RECORDS SUMMARY | 2023-10-02 12:32 | XMS_ITS | Encounter Summary ---
Author Organization [facility] Address [facility] [place] [address] Care Team Providers Care Greeter Name Role Phone Judd Pizarro MD Primary Care Provider [phone] Reason for Visit * Reason Comments Medication Refill Encounter Details Date Type Department Care Team (Late st Contact Info) Description 01/22/2021 Refill Weight and Wellness at [address] [address] Tessie Robles MD [facility] [place] [address] Class 2 obesity due to excess calories [...] insulin documented in this encounter Care Teams Greeter Relationship Specialty Start Date End Date Judd Pizarro MD [address] [place] [address] PCP - General Family Medicine 06/20/21 documented as of this encounter
--- OUTSIDE RECORDS SUMMARY | 2023-10-02 12:32 | XMS_ITS | Encounter Summary ---
Author Organization [facility] Address [facility] [place] [address] Care Team Providers Care Leather Sorter Name Role Phone Judd Pizarro MD Primary Care Provider [phone] Encounter Details Date Type Department Care Team (Late st Contact Info) Description 09/19/2021 Orders Only Weight and Wellness at [facility] [address] [place] [phone] Tessie Robles MD [facility] DR HALIMA [place] [address] Obesity, unspecified classification, unspecified obesity type, unspecified [...] * Biorepository Request (02/20/2022 5:47 PM EST) [facility] Biorepository Hold Sample in lab [facility] Blood 02/20/2022 5:47 PM EST 02/21/2022 11:01 AM EST Narrative Resulting Agency Comment Spec In Lab Tessie Robles MD [place] [address] documented in this encounter Visit Diagnoses Diagnosis Obesity, unspecified classification, unspecified obesity type, unspecified whether serious comorbidity present documented in this encounter Care Teams Leather Sorter Relationship Specialty Start Date End Date Judd Pizarro MD [address] [place] [address] PCP - General Family Medicine 06/20/21 documented as of this encounter
--- OUTSIDE RECORDS SUMMARY | 2023-10-02 12:32 | XMS_ITS | Encounter Summary ---
Author Organization [facility] [place] [address] Care Team Providers Care Slide Forming Machine Operator Name Role Phone Garth Marroquin DO Primary Care Provider [phone] Encounter Details Date Type Department Care Team (Late st Contact Info) Description 12/27/2020 Telephone Weight and Wellness at [facility] [address] [place] [address] Emilie Galvan, RN Social History [...] on filedocumented in this encounter Care Teams Slide Forming Machine Operator Relationship Specialty Start Date End Date Garth Marroquin DO [address] [place] [address] PCP - General Family Medicine 03/02/20 06/19/21 documented as of this encounter
--- OUTSIDE RECORDS SUMMARY | 2023-10-02 12:32 | XMS_ITS | Encounter Summary ---
Author Organization [facility] Address [address] [place] [address] Care Team Providers Care Operations Logistics Analyst Name Role Phone Garth Marroquin DO Primary Care Provider [phone] Encounter Details Date Type Department Care Team (Late st Contact Info) Description 05/17/2018 Results Only [facility] [phone] Sonny Medina MD [address] [place] [address] Social History Tobacco Use Types [...] MANNIE RODRIGUEZ JR ? Accession #: ? [id number] ? : ? 1965 (Age: 52) ??M [...] (ASCP) 05/17/2018 4:40 PM End of Report [facility] 05/14/2018 16:3 3 EDT 05/17/2018 16:33 EDT Sonny Medina MD PATHOLOGY ORDERABLES [facility] [address] [place] [address] documented in this encounter Visit Diagnoses Not on filedocumented in this encounter Care Teams Operations Logistics Analyst Relationship Specialty Start Date End Date Garth Marroquin DO [address] [place] [address] PCP - General 10/30/17 documented as of this encounter
--- OUTSIDE RECORDS SUMMARY | 2023-10-02 12:32 | XMS_ITS | Encounter Summary ---
Author Organization [facility] [place] [address] Care Team Providers Care Salon Manager Name Role Phone Judd Pizarro MD Primary Care Provider [phone] Reason for Visit * Reason Onset Date Comments Appointment 05/20/2021 Encounter Details Date Type Department Care Team (Late st Contact Info) Description 05/20/2021 Telephone Weight and Wellness at [facility] [address] [place] [address] Daria Huynh Appointment Social History [...] on filedocumented in this encounter Care Teams Salon Manager Relationship Specialty Start Date End Date Judd Pizarro MD [facility] [place] [address] PCP - General Family Medicine 06/20/21 documented as of this encounter
--- OUTSIDE RECORDS SUMMARY | 2023-10-02 12:32 | XMS_ITS | Encounter Summary ---
Author Organization [facility] Address [address] [place] [address] Care Team Providers Care Viscosity Worker Name Role Phone Gatrh Berg MD Primary Care Provider Unav ailable Encounter Details Date Type Department Care Team (Late st Contact Info) Description 09/29/2017 Results Only Imaging [facility] [phone] Unknown, Provider, Social History Tobacco Use Types [...] on filedocumented in this encounter Care Teams Viscosity Worker Relationship Specialty Start Date End Date Garth Berg MD PCP - General 09/29/14 10/29/17 documented as of this encounter
--- OUTSIDE RECORDS SUMMARY | 2023-10-02 12:32 | XMS_ITS | Encounter Summary ---
Author Organization [facility] Address [address] [place] [address] Care Team Providers Care Machinist Tool And Die Name Role Phone Garth Marroquin DO Primary Care Provider [phone] Encounter Details Date Type Department Care Team (Late st Contact Info) Description 09/17/2019 Lab Requisition [facility] Pathology & Laboratory Medicine - [address] [phone] Outr Resulting Lab, Provider Social History Tobacco [...] MICROBIOLOGY - GENERAL ORDERABLES Performing Organization Address City/State/[facility] Co de Phone Number [facility] [address] [place] [address] * COVID-19 TESTING (09/17/2019 13:37 EDT) COVID-19 rt-PCR Result Negative Negative 09/18/2019 13:41 EDT [facility] Comment: This test has not [...] history, and epidemiological information. Performed on the [employer] Expressher Fusion instrument Performing Lab [place] 09/18/2019 13:41 EDT [facility] Swab 09/17/2019 13:3 7 EDT 09/18/2019 9:35 EDT Provider Outr Resulting Lab MICROBIOLOGY - GENERAL ORDERABLES Performing Organization Address [facility] Co de Phone Number [facility] [address] [place] [address] documented in this encounter Visit Diagnoses Not on filedocumented in this encounter Care Teams Machinist Tool And Die Relationship Specialty Start Date End Date Garth Marroquin DO [address] [place] [address] PCP - General 10/30/17 documented as of this encounter
--- OUTSIDE RECORDS SUMMARY | 2023-10-02 12:32 | XMS_ITS | Encounter Summary ---
Author Organization [facility] Address [facility] [place] [address] Care Team Providers Care Commercial Real Estate Sales Manager Name Role Phone Judd Pizarro MD Primary Care Provider [phone] Encounter Details Date Type Department Care Team [...] filedocumented in this encounter Care Teams Commercial Real Estate Sales Manager Relationship Specialty Start Date End Date Judd Pizarro MD [facility] [place] [address] PCP - General Family Medicine 06/20/21 documented as of this encounter
--- OUTSIDE RECORDS SUMMARY | 2023-10-02 12:32 | XMS_ITS | Encounter Summary ---
Author Organization [facility] Address [facility] [place] [address] Care Team Providers Care Cloth Roll Winder Name Role Phone Judd Pizarro MD Primary Care Provider Encounter Details Date Type Department Care Team (Latest Contact Info) Description 07/04/2021 10:30 AM EDT TH Visit (TeleHealth) Weight and Wellness at [address] [address] Nolvia Saleh, RD [facility] [place] [address] Adult BMI 34.0-34.9 kg/sq m Social History [...] past visits. Please reach out with a [employer] Rong[employer]g message if you have any questions or [...] Progress Notes * Nolvia Saleh RD - 07/04/2021 10:30 AM EDT Nutrition Intervention for Weight Management Initial RD visit with GILSON Cadet 1965 Telehealth visit conducted while patient was at home at the following address: [address] [place] [phone] Weight Today: 212 at the doctor the [...] crystal light or other sugar-free additive [] [place] (natural or artificial flavoring or plain only) [...] Nutrition Change to whole wheat toast or Polish Muffin at breakfast. Instead of 4 eggs , have 2 eggs and peanut butter on the Polish muffin. When looking for a whole grain [...] Nutrition Change to whole wheat toast or Polish Muffin at breakfast. Instead of 4 eggs , have 2 eggs and peanut butter on the Polish muffin. When looking for a whole grain [...] initial visit Thank you Nolvia Saleh RD [facility] 30 minutes were spent in visit today, [...] adult documented in this encounter Care Teams Cloth Roll Winder Relationship Specialty Start Date End Date Judd Pizarro MD [facility] [place] [address] PCP - General Family Medicine 06/20/21 documented as of this encounter
--- OUTSIDE RECORDS SUMMARY | 2023-10-02 12:32 | XMS_ITS | Encounter Summary ---
Author Organization [facility] [place] [address] Care Team Providers Care Plant Taxonomy Teacher Name Role Phone Judd Pizarro MD Primary Care Provider [phone] Reason for Visit * Reason Onset Date Comments Medication Refill 01/06/2022 Encounter Details Date Type Department Care Team (Late st Contact Info) Description 01/06/2022 Refill Weight and Wellness at [address] [phone] Martina Jerome, [facility] Class 1 obesity due to excess calories [...] present documented in this encounter Care Teams Plant Taxonomy Teacher Relationship Specialty Start Date End Date Judd Pizarro MD [address] [place] [address] PCP - General Family Medicine 06/20/21 documented as of this encounter
--- OUTSIDE RECORDS SUMMARY | 2023-10-02 12:32 | XMS_ITS | Encounter Summary ---
Author Organization [facility] [place] [address] Care Team Providers Care Audit Consultant Name Role Phone Garth Marroquin DO Primary Care Provider [phone] Reason for Visit * Reason Onset Date Comments Medication Refill 01/16/2021 Encounter Details Date Type Department Care Team (Late st Contact Info) Description 01/16/2021 Refill Weight and Wellness at [address] [phone] Martina Jerome, MECHANICAL LEAD Class 2 obesity due to excess calories [...] insulin documented in this encounter Care Teams Audit Consultant Relationship Specialty Start Date End Date Garth Marroquin DO [facility] [place] [address] PCP - General Family Medicine 03/02/20 06/19/21 documented as of this encounter
--- OUTSIDE RECORDS SUMMARY | 2023-10-02 12:32 | XMS_ITS | Encounter Summary ---
Author Organization [facility] Address [address] [place] [address] Care Team Providers Care Manager Wound Care Name Role Phone Garth Marroquin DO Primary Care Provider [phone] Encounter Details Date Type Department Care Team (Late st Contact Info) Description 10/24/2019 Lab Requisition [facility] Pathology & Laboratory Medicine - [facility] [address], [place] [id number] Outr Resulting Lab, Provider Social History Tobacco [...] rt-PCR Result NEGATIVE Negative 10/25/2019 12:27 EDT [facility] Comment: 2019-novel Coronavirus (2019-nCoV) not detected [...] in accordance with CLIA regulations, College of [employer] (CAP) guidelines (May 05, 2019), and FDA guidance (Apr 16, 2019). This test is only for use under the Food and Drug Administration's Emergency Use Authorization. Swab ENTIRE NASOPHARYNX / Unknown 10/24/2019 9:09 EDT 10/24/2019 19:46 EDT Provider Outr Resulting Lab MICROBIOLOGY - GENERAL ORDERABLES [facility] [place], [place] * COVID-19 TESTING (10/24/2019 9:09 EDT) COVID-19 rt-PCR Result NEGATIVE Negative 10/25/2019 14:38 EDT [facility] Comment: 2019-novel Coronavirus (2019-nCoV) not detected [...] in accordance with CLIA regulations, College of [place] (CAP) guidelines (May 05, 2019), and FDA guidance (Apr 16, 2019). This test is only for use under the Food and Drug Administration's Emergency Use Authorization. Performing Lab [facility] [place] 10/25/2019 14:38 EDT [facility] Swab 10/24/2019 9:09 EDT 10/24/2019 19:46 EDT Provider Outr Resulting Lab MICROBIOLOGY - GENERAL ORDERABLES Performing Organization Address City/State/[facility] Co de Phone Number [facility] [address] [place] [address] [facility] [place], [place] documented in this encounter Visit Diagnoses Not on filedocumented in this encounter Care Teams Manager Wound Care Relationship Specialty Start Date End Date Garth Marroquin DO [address] [place] [address] PCP - General 10/30/17 documented as of this encounter
--- OUTSIDE RECORDS SUMMARY | 2023-10-02 12:32 | XMS_ITS | Encounter Summary ---
Author Organization [facility] Address [address] [place] [address] Care Team Providers Care Hand Counter Name Role Phone Garth Marroquin DO Primary Care Provider [phone] Reason for Visit * Reason Onset Date Comments Patient Information Update 11/06/2017 Results 11/09/2017 Returning Call 11/09/2017 Encounter Details Date Type Department Care Team (Late st Contact Info) Description 11/06/2017 Telephone [facility] Pulmonology & Critical Care - [facility] [address] [place] [address] Troy Ray MD [address] [place] [address], [address] [place] [address] Patient Information Update; Results; Returning [...] Howard RN - 11/06/2017 1324 EDT Called [facility] and requested that results/images be pushed for [...] on filedocumented in this encounter Care Teams Hand Counter Relationship Specialty Start Date End Date Garth Marroquin DO [address] [place] [address] PCP - General 10/30/17 documented as of this encounter
--- OUTSIDE RECORDS SUMMARY | 2023-10-02 12:32 | XMS_ITS | Encounter Summary ---
Author Organization Health system Address [address] [place] [address] Care Team Providers Care Shipping Lead Name Role Phone Garth Marroquin DO Primary Care Provider [phone] Encounter Details Date Type Department Care Team (Late st Contact Info) Description 07/18/2019 Lab Requisition [facility] Pathology & Laboratory Medicine - [facility] [address] [place] [address] Angus Raza MD [address] [place] [phone] Gastro-esophageal reflux disease without esophagitis; Right lower [...] features compatible with glycogenic acanthosis. 07/19/2019 17:16 [facility] at 1716 Attestation By the signature below, the attending physician certifies that they have 1) personally conducted a gross and/or microscopic examination of the described specimen(s), and/or personally interpreted the results of laboratory testing of the described specimen(s), and 2) personally rendered or confirmed the above diagnosis. 07/19/2019 17:16 [facility] at 1716 Clinical History Esophageal plaque; gastric erosion 07/19/2019 17:16 [facility] Gross Description A. Received [...] C1. Petty Rawls 07/18/2019 15:58 07/19/2019 17:16 [facility] Scanned Images 07/19/2019 17:16 [facility] Tissue ENTIRE ESOPHAGUS / Unknown 07/15/2019 7:45 EDT 07/18/2019 15:36 EDT Tissue specimen (specimen) STOMACH STRUCTURE / Unknown 07/15/2019 7:45 EDT 07/18/2019 15:36 EDT Tissue specimen (specimen) ESOPHAGEAL STRUCTURE / Unknown 07/15/2019 7:45 EDT 07/18/2019 15:36 EDT Angus Raza MD PATHOLOGY ORD ERABLES [facility] [address] [place] [address] documented in this encounter Visit Diagnoses Diagnosis Gastro-esophageal reflux disease without esophagitis Esophageal reflux Right lower quadrant pain Abdominal pain, right lower quadrant documented in this encounter Care Teams Shipping Lead Relationship Specialty Start Date End Date Garth Marroquin DO [address] [place], [place] [address] [address] PCP - General 10/30/17 documented as of this encounter
--- OUTSIDE RECORDS SUMMARY | 2023-10-02 12:32 | XMS_ITS | Encounter Summary ---
Author Organization [facility] [place] [address] Care Team Providers Care Tubing Machine Operator Name Role Phone Judd Pizarro MD Primary Care Provider Encounter Details Date Type Department Care Team (Late st Contact Info) Description 05/10/2022 1:05 PM EDT Ancillary Procedure [place] [address] Nic Samaniego MD [facility] [address] [place] [address] Social History Tobacco Use Types Packs/Day Years Used Date Smoking Tobacco: Every Day Cigarettes 1.5 38 Smokeless Tobacco: Never Alcohol Use Standard Drinks/Week Comments No 0 (1 standard drink = 0.6 oz pure alcohol) Formerly heavy - stopped a few years ago. [facility] Inpatient Questions Answer Date Recorded Does Anyone [...] IMG FILM LIBRARY ORDERABLES Performing Organization Address City/State/[facility] Co de Phone Number [place], [place] documented in this encounter Visit Diagnoses Not on filedocumented in this encounter Care Teams Tubing Machine Operator Relationship Specialty Start Date End Date Judd Pizarro MD [address] [place] [address] PCP - General Family Medicine 06/20/21 documented as of this encounter
--- OUTSIDE RECORDS SUMMARY | 2023-10-02 12:32 | XMS_ITS | Encounter Summary ---
Author Organization [facility] Address [facility] [place] [address] Care Team Providers Care Paperhanger Name Role Phone Garth Marroquin DO Primary Care Provider [phone] Encounter Details Date Type Department Care Team (Late st Contact Info) Description 03/22/2021 8:45 AM EST TH Visit (TeleHealth) Weight and Wellness at [address] [address] Tessie Robles MD [facility] [address] Class 1 obesity due to excess calories [...] Nutrition Change to whole wheat toast or Norwegian Muffin at breakfast. Instead of 4 eggs , have 2 eggs and peanut butter on the Norwegian muffin. Consider changing to HalfNHalf or cream [...] a general recommendation for all patients. Your skirt panel assembler and provider will help make more specific [...] increasing mindfulness throughout the day. Your health head track coach is well-equipped to guide you to find something to look forward to everyday. Eating behaviors: many people benefit from restricting the hours in which they eat. You can choose an eating window of 8-12 hours to start. Make a pact with yourself that you will not take in anything with caloric content outside this window. Your skirt panel assembler may make further recommendations Medication management If [...] situation you may contact our office at [phone] to schedule an appointment, and we will [...] [facility] Patient Name: Pavan [...] withneuropathy, Osteoarthritis. This is a Visit #4 [facility] visit for this 55 y.o. patient. Weight gain due to: less activity, weight gaining medications, increased intake and frequent snacking on PF Barriers: adentulous Initial visit: 09/27/20 Initial weight: 231# Initial BMI: 38.17 kg/m??. Goal weight: 165 10% loss: 210# Other goals: Improve diabetes Today's weight: 219.75, 216 Change since prior: -3.75# [facility] Team: Tessie Robles MD, Justyna Horan RD and Aguilar Lagunas, Health Multi Slide Machine Tender - all pending HPI is worried about his low intake HYPOTENSION - noted on exam today, has monitor at home but has not been following. Asymptomatic. Onamlodipine, lisinopril, hctz. 24hr Dietary 3AM-10AM Coffee with Nepali vanilla creamer 1/2 cup 8AM 4 eggs, Norwegian muffin - white with butter. 12N Salad [...] to a diff brand, cravings resumed. Pathway: [facility] PATHWAY - ADULT 09/27/2020 Obesity Medicine Activate Adult Biobank Activate PATHWAY DISCUSSION - individual Movement: [facility]: PAVAmauri 09/27/2020 How many days during the past [...] behavioral interventions, see goals Referrals: Dietitian, Health Multi Slide Machine Tender, AOM: Increase semaglutide for DM and weight [...] insulin documented in this encounter Care Teams Paperhanger Relationship Specialty Start Date End Date Garth Marroquin DO [address] [place] [address] PCP - General Family Medicine 03/02/20 06/19/21 documented as of this encounter
--- OUTSIDE RECORDS SUMMARY | 2023-10-02 12:32 | XMS_ITS | Encounter Summary ---
Author Organization [facility] Address [address] [place] [address] Care Team Providers Care Veterinary Parasitologist Name Role Phone Unavailable Primary Care Provider Unavailabl e Encounter Details Date Type Department Care Team (Late st Contact Info) Description 09/26/2014 Results Only [facility]- [facility] [phone] Umang Rayo MD [address] [facility] [address] [place] [address] Social History Tobacco Use Types [...] ? MANNIE RODRIGUEZ ? Accession #: ? [id number] ? : ? 1965 (Age: 49) ??M [...] [place] 09/27/2014 11:29 AM End of Report [facility] 09/26/2014 9:03 EDT 09/27/2014 9:03 EDT Umang Rayo MD PATHOLOGY ORDERABLES Performing Organization Address City/State/[facility] Co de Phone Number [facility] [address] [place] [address] documented in this encounter Visit Diagnoses Not on filedocumented in this encounter
--- OUTSIDE RECORDS SUMMARY | 2023-10-02 12:33 | XMS_ITS | Encounter Summary ---
Author Organization [facility] [place] [address] Care Team Providers Care Tassel Maker Name Role Phone None Primary Care Provider Unavailabl e Encounter Details Date Type Department Care Team (Late st Contact Info) Description 09/02/2019 Tele[place] [phone] Corinne Frausto Social History Tobacco Use Types [...] on filedocumented in this encounter Care Teams Tassel Maker Relationship Specialty Start Date End Date None None PCP - General 01/22/18 03/01/20 documented as of this encounter
--- OUTSIDE RECORDS SUMMARY | 2023-10-02 12:33 | XMS_ITS | Encounter Summary ---
Author Organization [facility] [place] [address] Care Team Providers Care Emergency Veterinarian Name Role Phone Unknown Primary Care Provider Unavailabl e Encounter Details Date Type Department Care Team (Late st Contact Info) Description 01/15/2018 [place] [phone] Gisela Escamilla Social History Tobacco Use Types [...] on filedocumented in this encounter Care Teams Emergency Veterinarian Relationship Specialty Start Date End Date Unknown None PCP - General 01/15/18 01/21/18 documented as of this encounter
--- OUTSIDE RECORDS SUMMARY | 2023-10-02 12:33 | XMS_ITS | Encounter Summary ---
Author Organization [facility] [address] [place] [id number] Care Team Providers Care Ammonia Print Operator Name Role Phone None Primary Care Provider Unavailabl e Reason for Referral * Diagnostic Test (Routine) - Specialty Diagnoses / Procedures Referred By Contac t Referred To Contact Radiology Diagnoses Pulmonary nodule Procedures CT Chest Screening Lung Cancer Ector Garcia MD [facility] [place] [address] [facility] [place] [address] Referral ID Status Reason Start Date Expiration Date Visits Requested Visits Authorized [id number] Specialty Service Requested 11/22/2018 11/22/2019 1 1 Reason for Visit * Diagnostic Test (Routine) - Specialty Diagnoses / Procedures Referred By Contac t Referred To Contact Radiology Diagnoses Pulmonary nodule Procedures CT Chest Screening Lung Cancer Ector Garica MD [facility] [place] [address] [facility] [place] [address] Referral ID Status Reason Start Date Expiration Date Visits Requested Visits Authorized [id number] Specialty Service Requested 11/22/2018 11/22/2019 1 1 Encounter Details Date Type Department Care Team (Latest Contact Info) Description 12/23/2019 8:53 AM EST - 12/23/2019 11:59 PM EST Hospital Encounter CT Scan at [facility] [place] [address] Ector Garcia MD [facility] [place] [address] Pulmonary nodule Discharge Disposition: Home Social History [...] please contact the number below. ? Narrative 12/26/2019 6:44 PM EST EXAMINATION: CT CHEST SCREENING LUNG CANCER CLINICAL HISTORY: Lung Cancer Screening Asymptomatic but at high risk for lung cancer TECHNIQUE: Noncontrast, low-dose chest CT (LDCT) per [facility] lung cancer screening protocol. COMPARISON: 11/22/2018 noncontrast [...] TECHNIQUE: Noncontrast, low-dose chest CT (LDCT) per [facility] lung cancerscreening protocol. COMPARISON: 11/22/2018 noncontrast chest [...] nodule documented in this encounter Care Teams Ammonia Print Operator Relationship Specialty Start Date End Date None None PCP - General 01/22/18 03/01/20 documented as of this encounter
--- OUTSIDE RECORDS SUMMARY | 2023-10-02 12:33 | XMS_ITS | Encounter Summary ---
Author Organization [facility] [place] [address] Care Team Providers Care Chlorine Cells Operator Name Role Phone None Primary Care Provider Unavailabl e Reason for Referral * Diagnostic Test (Routine) - Specialty Diagnoses / Procedures Referred By Edis grossman Referred To Contact Radiology Diagnoses Pulmonary nodule Procedures CT Chest Screening Lung Cancer Ector Garcia MD [facility] [place] [address] [facility] [place] [address] Referral ID Status Reason Start Date Expiration Date Visits Requested Visits Authorized [id number] Specialty Service Requested 11/22/2018 11/22/2019 1 1 Reason for Visit * Reason Comments Follow-up Encounter Details Date Type Department Care Team ([facility] st Contact Info) Description 11/22/2018 10:00 AM EDT [place] [address] Ector Garcia MD [facility] [place] [address] Pulmonary nodule Social History Tobacco Use [...] Garcia MD - 11/22/2018 10:00 AM EDT [facility] Section of Pulmonary Medicine Outpatient Progress Note [...] number below. Electronically signed by: Salud Beltran [facility] ([phone]), at 11/22/2018 9:47 AM Assessment: 53 yo man, active smoker with [...] MD Pulmonary and Critical Care Medicine Pager #[phone] documented in this encounter Plan of Treatment [...] ? Electronically signed by: Salud Beltran MD, [facility] ([phone]), at 12/26/2019 6:44 PM Narrative 12/26/2019 6:44 PM EST EXAMINATION: CT CHEST SCREENING LUNG CANCER CLINICAL HISTORY: Lung Cancer Screening Asymptomatic but at high risk for lung cancer TECHNIQUE: Noncontrast, low-dose chest CT (LDCT) per [facility] lung cancer screening protocol. COMPARISON: 11/22/2018 noncontrast [...] TECHNIQUE: Noncontrast, low-dose chest CT (LDCT) per [facility] lung cancerscreening protocol. COMPARISON: 11/22/2018 noncontrast chest [...] nodule documented in this encounter Care Teams Chlorine Cells Operator Relationship Specialty Start Date End Date None None PCP - General 01/22/18 03/01/20 documented as of this encounter
--- OUTSIDE RECORDS SUMMARY | 2023-10-02 12:33 | XMS_ITS | Encounter Summary ---
Author Organization [facility] Address [facility] [place] [address] Care Team Providers Care Tile Classifier Name Role Phone Garth Marroquin DO Primary Care Provider [phone] Reason for Visit * Reason Comments Follow-up weight managment Encounter Details Date Type Department Care Team (Late st Contact Info) Description 10/26/2020 12:00 PM EDT Office Visit Weight and Wellness at [address] [phone] Tessie Robles MD [facility] [address] [address] Class 2 obesity due to excess calories [...] a general recommendation for all patients. Your juice bar team member and provider will help make more specific [...] increasing mindfulness throughout the day. Your health charter coach driver is well-equipped to guide you to find something to look forward to everyday. Eating behaviors: many people benefit from restricting the hours in which they eat. You can choose an eating window of 8-12 hours to start. Make a pact with yourself that you will not take in anything with caloric content outside this window. Your juice bar team member may make further recommendations documented in this encounter Progress Notes * Tessie Robles MD - 10/26/2020 12:00 PM EDTSummary: Visit #2 [facility] Patient Name: Pavan [...] Osteoarthritis. This is a 1 month folllow-up [facility] visit for this 55 y.o. patient. Weight gain due to: less activity, weight gaining medications, increased intake and frequent snacking on PF Barriers: adentulous Initial visit: 09/27/20 Initial weight: 231# Initial BMI: 38.17 kg/m??. Goal weight: 165 10% loss: 210# Other goals: Improve diabetes Today's weight: 231 Change since prior: 0 [facility] Team: Tessie Robles MD, Justyna Horan RD and Aguilar Lagunas, Health Ict Analyst - all pending HPI Moving - busy [...] in the AM - 2-3 pots adds Nepali Vanilla Creamer - starts 4AM Nothing to eat until 12noon Noon: [place] on white, lettuce, tomato, meat, cheese, mustard; lightly salted potato chips, iced tea -sweetened and lemon/store bought Snack: potato chips [id number]: TopRamen if Naty is not home (four days per week) - 2 packages 7PM:potato chips or snack cake Cutting back on snack cakes Nildan has no teeth so limits someintake Obesogenic [...] interim records including notes and labs. Pathway: [facility] PATHWAY - ADULT 09/27/2020 Obesity Medicine [...] skips meals []? Night eating ? Movement: [facility]: PAVS 09/27/2020 How many days during the [...] 141 09/27/2020 Lab Results Component Value Date [id number] 09/27/2020 25-OH Vit D Total (ng/mL) [...] behavioral interventions, see goals Referrals: Dietitian, Health Ict Analyst, AOM: Continue semaglutide for DM and weight [...] 15. 12 min chart review 30 min [id number] Visit time 5 min Documentation time I [...] counseling documented in this encounter Care Teams Tile Classifier Relationship Specialty Start Date End Date Garth Marroquin DO [address] [place] [address] PCP - General Family Medicine 03/02/20 06/19/21 documented as of this encounter
--- OUTSIDE RECORDS SUMMARY | 2023-10-02 12:33 | XMS_ITS | Encounter Summary ---
Author Organization [facility] [place] [address] Care Team Providers Care Phytochemistry Professor Name Role Phone None Primary Care Provider Unavailabl e Encounter Details Date Type Department Care Team (Late st Contact Info) Description 08/31/2019 [place] [phone] Corinne Frausto Social History Tobacco Use Types [...] on filedocumented in this encounter Care Teams Phytochemistry Professor Relationship Specialty Start Date End Date None None PCP - General 01/22/18 03/01/20 documented as of this encounter
--- OUTSIDE RECORDS SUMMARY | 2023-10-02 12:33 | XMS_ITS | Encounter Summary ---
[place] [address] Care Team Providers Care Head Of Art Name Role Phone Garth Berg MD Primary Care Provider [phone] Encounter Details Date Type Department Care Team (Latest Contact Info) Description 11/06/2017 - 11/06/2017 11:59 PM EDT Hospital Encounter [place] [address] Garth Marroquin, DO [address] [place], [place] [phone] Discharge Disposition: Home Social History Tobacco Use [...] CT Chest (11/06/2017 12:00 AM EDT) Narrative [facility] - 12/21/2017 10:06 AM EST This exam is for storage only and is auto-finalizing. Garth Marroquin DO [facility] FILM LIBRARY ORD ERABLES [place], [place] documented in this encounter Visit Diagnoses Not on filedocumented in this encounter Care Teams Head Of Art Relationship Specialty Start Date End Date Garth Berg MD [address] [place] [address] PCP - General General Internal Medicine 03/02/17 documented as of this encounter
--- OUTSIDE RECORDS SUMMARY | 2023-10-02 12:33 | XMS_ITS | Encounter Summary ---
[place] [address] Care Team Providers Care Mold Making Plastics Sheets Supervisor Name Role Phone Unknown Primary Care Provider Unavailabl e Reason for Referral * Diagnostic Test (Routine) - Closed Specialty Diagnoses / Procedures Referred By Contac t Referred To Contact Radiology Diagnoses Pulmonary nodule Procedures PET CT Standard Skull Base to Mid-Thigh Amando Robins MD [facility] [place] [address] [place] [address] Referral ID Status Reason Start Date Expiration Date V isits Requested Visits Authorized [id number] Closed Specialty Service Requested 01/15/2018 01/15/2019 1 1 Reason for Visit * Reason Comments Referral * Consultation (Routine) - Closed Specialty Diagnoses / Procedures Referred By Contac t Referred To Contact Pulmonology Diagnoses PULMONARY NODULE Garth Marroquin, DO [address] [place] [address] [facility] Pulmonology [address] [place] [phone] Referral ID Status Reason Start Date Expiration Date V isits Requested Visits Authorized [id number] Closed Consult, Test & Treat Connection Center 12/21/2017 12/21/2018 1 1 Encounter Details Date Type Department Care Team (Late st Contact Info) Description 01/15/2018 8:00 AM EST Office [place] [address] Amando Robins MD [facility] [address] [place] [address] Pulmonary nodule Social History Tobacco Use Types [...] NAME: Pavan Padilla : 1965 MEDICAL RECORD: [id number] DATE OF SERVICE: 01/14/2018 REFERRING PHYSICIAN: Garth Marroquin DO PRIMARY CARE PHYSICIAN: Garth Berg MD (Inactive) Reason for Consultation: PULMONARY NODULE Chief Complaint: I'm here about the spot on my lung UPDATED phone number: [phone] History of Present Illness: Mr. Pavan Padilla [...] he was actually evaluated by Pulmonology in [place] a few months ago. He was evaluated by Dr. Troy Ray ([facility]) on 11/02/17 in their nodule clinic. It was at this appointment that the 10/2017 CT chest was obtained. He did not follow up with [facility] following completion of the 10/2017 CT chest. 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 Interval [...] pulmonary nodule(s). It is reported by the [facility] radiologist to measure 2 CM across in total from the 10/2017 CT chest as compared to the initial 0.8 CM solid vs part-solid lesion seen on a 2015CT abdomen (1.0 CM x 0.9 CM on my measurements). The 2014 report from [facility] also mentions similar findings dating back to [...] after PET/CT ?? All missing imaging from [facility] have been requested ?? Smoking cessation discussed in depth; continue nicotine replacement therapies ?? Remainder of plan as noted above ?? Note to be sent to Garth Berg MD (Inactive) ?? Follow-up with me for potential bronchoscopy with EBUS following the PET/CT Closest Hospital: [facility]; he is [address] from [facility] Amando Robins MD, 01/15/2018, 8:30 AM Pulmonary & Critical Care Pager: [phone] documented in this encounter Plan of Treatment [...] node staging TECHNIQUE: Following IV injection of 64-pkyxza-3-deoxyglucose (FDG) a standard uptake of approximately 60 [...] lymph nodestaging TECHNIQUE: Following IV injection of 23-njdxdh-4-deoxyglucose (FDG) astandard uptake of approximately 60 minutes, [...] nodule documented in this encounter Care Teams Mold Making Plastics Sheets Supervisor Relationship Specialty Start Date End Date Unknown None PCP - General 01/15/18 01/21/18 documented as of this encounter
--- OUTSIDE RECORDS SUMMARY | 2023-10-02 12:33 | XMS_ITS | Encounter Summary ---
Author Organization [facility] [place] [address] Care Team Providers Care Deburring Machine Operator Name Role Phone Garth Marroquin DO Primary Care Provider [phone] Encounter Details Date Type Department Care Team (Late st Contact Info) Description 09/17/2020 External Results Weight and Wellness at [facility] [address] [place] [phone] Emilie Galvan, RN Social History Tobacco Use [...] Procedure Name Priority Date/Time Associated Diagnosis Comments [facility] EXTERNAL RESULT PANEL Routine 04/23/2020 CBC (WITH DIFF) Routine 04/23/2020 documented in this encounter Results * CBC (with Diff) (04/23/2020) White Blood Cell 7.28 Red Blood Cell 5.43 Hemoglobin 16.3 Hematocrit 48.5 Mean Cell Volume 89.3 Mean Cell Hemoglobin 30.0 Mean Cell Hemoglobin Concentration 33.6 RDW coefficient of variation 13.2 Platelet 189 Mean Platelet Volume 10.6 Neutrophil % 63.5 Lymph % 21.7 Monocyte % 9.5 Eosinophil Manual 2.2 Basophil % 1.0 Immature Gran % 2.1 ANC 4.63 Lymph Absolute Manual 1.58 Monocyte Abs 0.69 Eos Absolute Manual 0.16 Baso Absolute Manual 0.07 Blood 04/23/2020 Historical Provider HEMATOLOGY ORDERA BLES * (ABNORMAL) [facility] External Results (04/23/2020) Blood Urea Nitrogen 16([facility]) Creatinine 1.2(Exter nal Lab) Sodium 137(Exter nal Lab) Potassium 3.9(Exter nal Lab) Chloride 103(Exter nal Lab) Carbon Dioxide 24([facility]) Anion Gap 10([facility]) Calcium 8.8(Exter nal Lab) Protein, Total 7.2(Exter nal Lab) Albumin 3.7(Exter nal Lab) Aspartate Aminotransferase 19([facility]) Alanine Aminotransferase 39([facility]) Alkaline Phosphatase 91([facility]) Bilirubin, Total 0.4(Exter nal Lab) Est Glomerular Filtration Rate >60(Exter nal Lab) Thyroid Stimulating Hormone 1.26(Exte rnal Lab) Glucose 162(ExtH) Troponin-T 0.05(Exte rnal Lab) D-Dimer 354(Exter nal Lab) Lactic Acid 1.6(ExtH) 04/23/2020 Historical Provider POINT OF CARE KENNEY T ORDERABLES documented in this encounter Visit Diagnoses Not on filedocumented in this encounter Care Teams Deburring Machine Operator Relationship Specialty Start Date End Date Garth Marroquin DO [address] [place] [address] PCP - General Family Medicine 03/02/20 06/19/21 documented as of this encounter
--- OUTSIDE RECORDS SUMMARY | 2023-10-02 12:33 | XMS_ITS | Encounter Summary ---
Author Organization [facility] [place] [address] Care Team Providers Care Breast Trimmer Name Role Phone Garth Marroquin DO Primary Care Provider [phone] Encounter Details Date Type Department Care Team (Late st Contact Info) Description 09/27/2020 Notes Only Weight and Wellness at [address] [phone] Elidia Mallory Social History Tobacco Use Types [...] Date: 09/27/20 PI/Designee: Dr. Leonidas Scott/Elidia Mallory [facility] [id number]: [facility] [employer] VELOS: [id number] Pavanthuy Padilla consented via electronic consent to [...] on filedocumented in this encounter Care Teams Breast Trimmer Relationship Specialty Start Date End Date Garth Marroquin DO [address] [place] [address] PCP - General Family Medicine 03/02/20 06/19/21 documented as of this encounter
--- OUTSIDE RECORDS SUMMARY | 2023-10-02 12:33 | XMS_ITS | Encounter Summary ---
Author Organization Count Includes [facility] Address [facility] [place] [address] Care Team Providers Care Chief Engineer Research Name Role Phone Garth Berg MD Primary Care Provider [phone] Encounter Details Date Type Department Care Team (Latest Contact Info) Description 01/09/2018 - 01/09/2018 11:59 PM EST Hospital Encounter [place] [address] Back[address] MD [facility] [place] [address] Discharge Disposition: Home Social History Tobacco Use [...] auto-finalizing. Amando [facility] LIBRARY ORD ERABLES [place], [place] documented in this encounter Visit Diagnoses Not on filedocumented in this encounter Care Teams Chief Engineer Research Relationship Specialty Start Date End Date Garth Berg MD [address] [place] [address] PCP - General General Internal Medicine 03/02/17 documented as of this encounter
--- OUTSIDE RECORDS SUMMARY | 2023-10-02 12:33 | XMS_ITS | Encounter Summary ---
Author Organization [facility] [place] [address] Care Team Providers Care Food Service Kitchen Supervisor Name Role Phone None Primary Care Provider Unavailabl e Encounter Details Date Type Department Care Team (Late st Contact Info) Description 09/06/2019 Telephone [place] [phone] Corinne Frausto Social History Tobacco Use Types [...] on filedocumented in this encounter Care Teams Food Service Kitchen Supervisor Relationship Specialty Start Date End Date None None PCP - General 01/22/18 03/01/20 documented as of this encounter
--- OUTSIDE RECORDS SUMMARY | 2023-10-02 12:33 | XMS_ITS | Encounter Summary ---
[place] [address] Care Team Providers Care Architect Name Role Phone Garth Berg MD Primary Care Provider [phone] Encounter Details Date Type Department Care Team (Late st Contact Info) Description 01/14/2018 [place] [phone] Judd Johnston II Social History Tobacco Use [...] on filedocumented in this encounter Care Teams Architect Relationship Specialty Start Date End Date Garth Berg MD [address] [place], [place] [id number] PCP - General General Internal Medicine 03/02/17 documented as of this encounter
--- OUTSIDE RECORDS SUMMARY | 2023-10-02 12:33 | XMS_ITS | Encounter Summary ---
[place] [address] Care Team Providers Care Process Safety Engineer Name Role Phone Garth Marroquin DO Primary Care Provider [phone] Reason for Visit * Reason Onset Date Comments Appointment 11/14/2020 Encounter Details Date Type Department Care Team (Late st Contact Info) Description 11/14/2020 Telephone Weight and Wellness at [facility] [address] [place] [address] Trini Mcduffie Appointment Social History [...] on filedocumented in this encounter Care Teams Process Safety Engineer Relationship Specialty Start Date End Date Garth Marroquin DO [address] [place] [address] PCP - General Family Medicine 03/02/20 06/19/21 documented as of this encounter
--- OUTSIDE RECORDS SUMMARY | 2023-10-02 12:33 | XMS_ITS | Encounter Summary ---
[place] [address] Care Team Providers Care Retail Associate Name Role Phone None Primary Care Provider Unavailabl e Reason for Referral * Diagnostic Test (Routine) - Closed Specialty Diagnoses / Procedures Referred By Contac t Referred To Contact Radiology Diagnoses Pulmonary nodule Procedures CT Chest wo Contrast (Generic) Amando Robins MD [facility] [place] [address] [facility] [place] [address] Referral ID Status Reason Start Date Expiration Date V isits Requested Visits Authorized [id number] Closed Specialty Service Requested 01/22/2018 01/22/2019 1 1 Reason for Visit * Diagnostic Test (Routine) - Closed Specialty Diagnoses / Procedures Referred By Contac t Referred To Contact Radiology Diagnoses Pulmonary nodule Procedures CT Chest wo Contrast (Generic) Amando Robins MD [facility] [place] [address] [facility] [place] [address] Referral ID Status Reason Start Date Expiration Date V isits Requested Visits Authorized [id number] Closed Specialty Service Requested 01/22/2018 01/22/2019 1 1 Encounter Details Date Type Department Care Team (Latest Contact Info) Description 11/22/2018 7:44 AM EDT - 11/22/2018 11:59 PM EDT Hospital Encounter CT Scan [place] [place] [address] Amando Robins MD [facility] [place] [address] Pulmonary nodule Discharge Disposition: Home Social History [...] documented in this encounter Care Teams Retail Associate Relationship Specialty Start Date End Date None None PCP - General 01/22/18 03/01/20 documented as of this encounter
--- OUTSIDE RECORDS SUMMARY | 2023-10-02 12:33 | XMS_ITS | Encounter Summary ---
Author Organization [place] [id number] Care Team Providers Care Rice Field Worker Name Role Phone None Primary Care Provider Unavailabl e Reason for Referral * Diagnostic Test (Routine) - Closed Specialty Diagnoses / Procedures Referred By Contac t Referred To Contact Radiology Diagnoses Pulmonary nodule Procedures PET CT Standard Skull Base to Mid-Thigh Amando Robins MD [facility] [address] [place] [address] Referral ID Status Reason Start Date Expiration Date V isits Requested Visits Authorized [id number] Closed Specialty Service Requested 01/15/2018 01/15/2019 1 1 Reason for Visit * Diagnostic Test (Routine) - Closed Specialty Diagnoses / Procedures Referred By Contac t Referred To Contact Radiology Diagnoses Pulmonary nodule Procedures PET CT Standard Skull Base to Mid-Thigh Amando Robins MD [facility] [place] [address] [place] [address] Referral ID Status Reason Start Date Expiration Date V isits Requested Visits Authorized [id number] Closed Specialty Service Requested 01/15/2018 01/15/2019 1 1 Encounter Details Date Type Department Care Team (Latest Contact Info) Description 01/22/2018 6:21 AM EST - 01/22/2018 11:59 PM [facility] Hospital Encounter Nuclear Medicine at [facility] [place] [address] Amando Robins MD [facility] [place] [address] Pulmonary nodule Discharge Disposition: Home Social History [...] node staging TECHNIQUE: Following IV injection of 60-venozv-8-deoxyglucose (FDG) a standard uptake of approximately 60 [...] lymph nodestaging TECHNIQUE: Following IV injection of 38-uaalvq-4-deoxyglucose (FDG) astandard uptake of approximately 60 minutes, [...] * POCT Glucose (01/22/2018 6:45 AM EST) Glucose, POC 136 65 - 199 mg/dL [facility] Comment: Supplemental ranges: <140 mg/dL before meals <180 mg/dL all other times of the day Blood specimen (specimen) 01/22/2018 6:45 AM EST 01/22/2018 6:45 AM EST Amando Robins MD POINT OF CARE TEST O RDERABLES [facility] [place] [address] documented in this encounter Visit Diagnoses Diagnosis Pulmonary nodule Solitary pulmonary nodule documented in this encounter Care Teams Rice Field Worker Relationship Specialty Start Date End Date None None PCP - General 01/22/18 03/01/20 documented as of this encounter
--- OUTSIDE RECORDS SUMMARY | 2023-10-02 12:33 | XMS_ITS | Encounter Summary ---
Author Organization [facility] [place] [address] Care Team Providers Care Helicopter Mechanic Name Role Phone None Primary Care Provider Unavailabl e Encounter Details Date Type Department Care Team (Late st Contact Info) Description 10/04/2019 [place] [phone] Corinne Frausto Social History Tobacco Use Types [...] on filedocumented in this encounter Care Teams Helicopter Mechanic Relationship Specialty Start Date End Date None None PCP - General 01/22/18 03/01/20 documented as of this encounter
--- OUTSIDE RECORDS SUMMARY | 2023-10-02 12:33 | XMS_ITS | Encounter Summary ---
Author Organization [facility] Address [facility] [place] [address] Care Team Providers Care Replanting Machine Crewman Name Role Phone Garth Marroquin DO Primary Care Provider Reason for Visit * Reason Comments Establish Care Weight managment * Consultation (Routine) - Closed Specialty Diagnoses / Procedures Referred By Edis grossman Referred To Contact Weight and Wellness Diagnoses Localized adiposity BMI > 30 Garth Marroquin DO [address] [place] [address] [facility] [address] [place] [address] Referral ID Status Reason Start Date Expiration Date V isits Requested Visits Authorized [id number] Closed Consult, Test & Treat Connection Center PCP Updated and/or Approved 02/23/2020 02/22/2021 6 6 Encounter Details Date Type Department Care Team (Late st Contact Info) Description 09/27/2020 10:00 AM EDT Office Visit Weight and Wellness at [facility] [address] [place] [address] Tessie Robles MD [facility] DR [address]IM[address] [place] [address] Class 2 obesity due to excess calories [...] dietary choices. You will see a health head girls golf coach who will talk to you about [...] 3 business days, please call us at: [phone]. Below is a summary of our discussion [...] on all of these pillars, and each sports team manager, will help you set achievable, actionable goals, [...] the disease of obesity) Appetite control The limehouse worker, The GoGetter and The Sleepy Executive 720 - Chuyita video Sleep apnea and weight https://www.sleepfoundation.org/sleep-apnea/nsejga-kfbr-dxf-sleep-apnea Insulin resistance and weight https://obesitymedicine.org/ezvpifk-iqr-tcictuv-resistance/ https://www.secondnature.io/us/guides/diabetes/hicbwdb-pvdbfgdyjy-noxkse-gain Dr. Brigido Dai: Fasting as a Therapeutic Option for Weight Loss - Candid ioTube Https://www.youHigh Brew Coffeeube.com/watch?v=yx2hpgxx4sP https://www.youHigh Brew Coffeeube.com/watch?v=69Zds3PyLXJ The Mediterranean Diet https://Salsa Bear Studios.org/ https://www.health.[place].edu/blog/e-kivjgjkov-qvkcj-rr-iyx-comjuyjvhrrmx-diet- 5989816119082 An important thing to remember as you [...] a general recommendation for all patients. Your agronomy advisor and provider will help make more specific [...] mindfulness throughout the day. Your health head girls golf coach is well-equipped to guide you to find something to look forward to everyday. Eating behaviors: many people benefit from restricting the hours in which they eat. You can choose an eating window of 8-12 hours to start. Make a pact with yourself that you will not take in anything with caloric content outside this window. Your agronomy advisor may make further recommendations GLP 1 Receptor [...] the same way that they help diabetics. https://www.diabeteseducator.org/practice/practice-tools/sxlxhohz-wawpznafwr-how ls/dyg-7-vxyvwzknf https://www.diabeteseducator.org/docs/default-source/practice/educator-tools/glp -1-medications/understanding_glp_final.pdf?sfvrsn=2 The following informational sheet will provide instruction for how to store and inject the injectable forms of GLP1 Fito. https://www.diabeteseducator.org/practice/practice-tools/jeqkdapc-hhxnldlogo-cne ls/csa-3-lbmdrrmwt documented in this encounter Progress Notes * Tessie Robles MD - 09/27/2020 10:00 AM EDTSummary: initial consult [facility] Weight & [facility] Patient Name: Pavan Padilla Date of : 1965 Age: 55 y.o. Referring provider: Garth Marroquin Dear Garth Marroquin DO, Thank you for referring Pavan Padilla to the [facility] for a consultationfor obesity management. I reviewed [...] again for allowing the [facility] to join [facility] team. SUMMARY OF VISIT: Pavan Padilla presented to the [facility] for a consultative visit regarding [...] medications: Glipizide, gabapentin, amitriptyline Referrals: [x]Nutrition [x]Health head girls golf coach []Sleep medicine []Bariatric surgery []GI []Behavioral health []ACT group [x]Research coordinator CHIEF COMPLAINT: Management of excess weight HISTORY OF PRESENT ILLNESS: Weight History: [facility] Weight History 09/27/2020 What is [...] medications, increased intake and frequent snacking on [facility] Importance 09/27/2020 How important is it to [...] a diff brand, cravings resumed. 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 male with uncontrolled obesity who presented to [facility] today for medical evaluation with [...] [x]Consider ACT, for unplanned eating event with [facility] Activity: provided resistance bands and booklet Barriers: [...] behavioral interventions, see goals Referrals: Dietitian, Health Assistant Professor Of Drama, AOM: D/c glipizide and start semaglutide for [...] changes that are significant. Care pathway: Pathway: [facility] PATHWAY - ADULT 09/27/2020 Adult Biobank Activate Return in about 4 weeks (around 10/25/2020) for MD Nagel or clinic, //RD 1-2 wks, //HC 2wks after RD. I spoke with Pavan about opportunities to participate in research and to be contacted by our research staffing assistant. They indicated that they are: [x] INTERESTED [] NOT INTERESTED // [] NOT ADDRESSED [facility] Initial Responses 09/27/2020 URICA - Readiness Score 12.33 (Preparation State) WEL-SF Total Scores 72 PHQ-2 SubScore 0 (Brief screen negative) GAD2 Subscore 0 (Brief screen negative) PROMIS 10 Physical Scores 37.4 PROMIS 10 Mental Scores 48.3 Total REAP-S Scores 17 TFEQ - Uncontrolled Eating (UE) 29.62 TFEQ-Cognitive Restraint (CR) 11 TFEQ-Emotional Eating 27.77 Food Insecurity Score 2 Harvey Category I Result 1 (Negative) Harvey Category II Result 1 (Negative) Harvey Category III 1 (Positive) Harvey Sleep Apnea Total 3 (High Risk) Schooling [...] LDL Cholesterol, Direct (09/27/2020 11:41 AM EDT) [facility] LDL Cholesterol, Direct 79 mg/dL [facility] Comment: Lowest Risk: <100 mg/dL Lower Risk: 100-129 mg/dL Borderline High Risk: 130-159 mg/dL High Risk: 160-189 mg/dL Very High Risk: >si=531 mg/dL Blood 09/27/2020 11:4 1 AM EDT 09/27/2020 12:48 PM EDT Narrative Resulting Agency Comment Spec In Lab Tessie Roblse MD CHEMISTRY ORDERABLES Performing Organization Address City/[facility] Co de Phone Number [facility] [place] [address] * Biorepository Request (09/27/2020 11:41 AM EDT) [facility] Biorepository Hold Sample in lab [facility] Blood 09/27/2020 11:4 1 AM EDT 09/27/2020 1:25 PM EDT Narrative Resulting Agency Comment Spec In Lab Tessie Robles MD MOLECULAR ORDERABLES Performing Organization Address City/[facility]/ZIP Co de Phone Number [facility] [place] [address] * Hepatic Function Panel (09/27/2020 11:41 AM EDT) [facility] Protein, Total 6.8 6.1 - 8.0 gm/dL [facility] Albumin 4.2 3.2 - 5.2 gm/dL [facility] Aspartate Aminotransferase 22 0 - 39 unit/L [facility] Alanine Aminotransferase 35 0 - 55 unit/L [facility] Alkaline Phosphatase 102 40 - 130 unit/L [facility] Bilirubin, Total 0.2 0.2 - 1.3 mg/dL [facility] Bilirubin, Direct 0.1 0.0 - 0.3 mg/dL [facility] Blood 09/27/2020 11:4 1 AM EDT 09/27/2020 12:48 PM EDT Narrative Resulting Agency Comment Spec In Lab Tessie Robles MD CHEMISTRY ORDERABLES Performing Organization Address City/State/[facility] Co de Phone Number [facility] [place] [address] * Lipid Panel (Reflex Direct LDL) (09/27/2020 11:41 AM EDT) [facility] Cholesterol, Total 188 mg/dL [facility] Comment: Lower Risk: <200 mg/dL Average Risk: 200-239 mg/dL Higher Risk: >hq=125 mg/dL Triglyceride 668 mg/dL [facility] Comment: Average Risk/Lower Risk: <150 mg/dL Borderline High Risk: 150-199 mg/dL High Risk: 200-499 mg/dL Very High Risk: >ej=782 mg/dL HDL Cholesterol 22 mg/dL [facility] Comment: Males: ?? Higher Risk: <40 mg/dL Females: ?? Higher Risk: <50 mg/dL LDL Cholesterol Not Calculated [facility] Comment: Lowest Risk: <100 mg/dL Lower Risk: 100-129 mg/dL Borderline High Risk: 130-159 mg/dL High Risk: 160-189 mg/dL Very High Risk: >fv=118 mg/dL Calculated LDL value is not valid for triglycerides greater than 400 mg/dl. Cholesterol/HDL Ratio 8.5 ratio [facility] Lipid Interpretation See Note [facility] Comment: Lipid management should be guided by a patient? s ASCVD risk, goals and preferences. ACC/AHA Guidelines recommend high intensity statin if clinical ASCVD or LDL greater than or equal to 190 mg/dL. http://MFG.com.com/IDY-SCV-Areudubex Adults aged 40-75 with LDL 70-189 mg/dL should have their 10 year ASCVD risk estimated with the ACC/AHA ASCVD risk hr specialist http://tools.acc.org/CSDOB-Aixr-Bqayswfuw/ Statin should be discussed if risk greater [...] MD CHEMISTRY ORDERABLES [facility] [place] [address] * (ABNORMAL) Hemoglobin A1c (09/27/2020 11:41 AM EDT) Hemoglobin A1c 8.0(H) 4.3 - 5.6 % [facility] [...] Mellitus, Diabetes Care 2013; 36: Suppl. 1, S67-45 Estimated Average Glucose 182 mg/dL [facility] Comment: eAG equivalents for HbA1c [...] into estimated average glucose values. ??Diabetes Care 2008:31(8):6857-5810. Blood 09/27/2020 11:4 1 AM EDT 09/27/2020 12:47 PM EDT Narrative Resulting Agency Comment Spec In Lab Tessie Robles MD CHEMISTRY ORDERABLES [facility] [place] [address] * Ferritin (09/27/2020 11:41 AM EDT) [facility] Ferritin 141 30 - 400 ng/mL [facility] Comment: Pediatric reference ranges not verified at [facility], interpret with caution. Reference ranges for females greater than 50 years of age approach values for men, i.e., 30-400 ng/mL. Blood 09/27/2020 11:4 1 AM EDT 09/27/2020 4:28 PM EDT Narrative Resulting Agency Comment Spec In Lab Tessie Robles MD CHEMISTRY ORDERABLES Performing Organization Address City/[facility]/ZIP Co de Phone Number [facility] [place] [address] * Vitamin B12 (09/27/2020 11:41 AM EDT) Vitamin B12 423 232 - 1,245 pg/mL [facility] Blood 09/27/2020 11:4 1 AM EDT 09/27/2020 4:28 PM EDT Narrative Resulting Agency Comment Spec In Lab Tessie Robles MD CHEMISTRY ORDERABLES Performing Organization Address [facility] Co de Phone Number [facility] [place] [address] * Vitamin D, 25-Hydroxy (09/27/2020 11:41 AM EDT) Vitamin D Total 25 OH 41 21 - 100 ng/mL [facility] Vit D Interp Sufficient [facility] Blood 09/27/2020 11:4 1 AM EDT 09/27/2020 4:28 PM EDT Narrative Resulting Agency Comment Spec In Lab Tessie Robles MD CHEMISTRY ORDERABLES Performing Organization Address City/[facility]/ZIP Co de Phone Number [facility] [place] [address] * (ABNORMAL) POCT glycated hemoglobin, total (HA1C) (09/27/2020) Hemoglobin A1C, POC 7.9(A) 4.3 - 5.6 % 09/27/2020 Tessie [...] disorder documented in this encounter Care Teams Replanting Machine Crewman Relationship Specialty Start Date End Date Garth Marroquin DO [address] [place] [address] PCP - General Family Medicine 03/02/20 06/19/21 documented as of this encounter
--- OUTSIDE RECORDS SUMMARY | 2023-10-02 12:33 | XMS_ITS | Encounter Summary ---
Author Organization [facility] [place] [address] Care Team Providers Care Shoe Planner Name Role Phone Garth Marroquin DO Primary Care Provider [phone] Encounter Details Date Type Department Care Team (Late st Contact Info) Description 12/21/2020 Telephone Weight and Wellness at [facility] [address] [place] [address] Martina Jerome CMA Social History [...] on filedocumented in this encounter Care Teams Shoe Planner Relationship Specialty Start Date End Date Garth Marroquin DO [address] [place] [address] PCP - General Family Medicine 03/02/20 06/19/21 documented as of this encounter
--- OUTSIDE RECORDS SUMMARY | 2023-10-02 12:33 | XMS_ITS | Encounter Summary ---
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 Garth Marroquin, DO [address] [place] [address] [facility] Cardiology [address] [place] [id number] Referral ID Status Reason Start Date Expiration Date V isits Requested Visits Authorized [id number] Closed Consult, Test & Treat Connection Center 03/02/2017 03/02/2018 1 1 Encounter Details Date Type Department Care Team (Late st Contact Info) Description 04/16/2017 12:00 PM EST Office Visit Cardiology at [address] [address] Laverne Coon MD [facility] [place] [id number] Unstable angina; Essential hypertension Social History [...] chest pain Primary provider: Garth Marroquin DO [address] [place] [phone] ?? Problem List: 1: Type 2 DM [...] Office Visit from 04/16/2017 in Cardiology at [facility] Weight 108 kg (238 lb) Height 170.2 [...] with primary care provider Laverne Coon MD [facility] Interventional Cardiology Pager [phone] documented in this encounter Plan of Treatment [...] (Bezet) 449 ms MUSE SYSTEM Calculated P Dora 25 degrees MUSE SYSTEM Calculated R Dora 28 degrees MUSE SYSTEM Calculated T Dora 24 degrees MUSE SYSTEM INTERPRETATION Normal sinus [...] hypertension documented in this encounter Care Teams Store Merchandiser Relationship Specialty Start Date End Date Garth Berg MD [address] [place] [address] PCP - General General Internal Medicine 03/02/17 documented as of this encounter
--- OUTSIDE RECORDS SUMMARY | 2023-10-02 12:33 | XMS_ITS | Encounter Summary ---
Author Organization [facility] [place] [address] Care Team Providers Care Shoe Dyer Name Role Phone Garth Marroquin DO Primary Care Provider [phone] Reason for Visit * Reason Onset Date Comments Appointment 10/16/2020 Encounter Details Date Type Department Care Team (Late st Contact Info) Description 10/16/2020 Telephone Weight and Wellness at [address] [address] Trini Mcduffie Appointment Social History [...] filedocumented in this encounter Care Teams Shoe Dyer Relationship Specialty Start Date End Date Garth Marroquin DO [facility] [place] [address] PCP - General Family Medicine 03/02/20 06/19/21 documented as of this encounter
--- OUTSIDE RECORDS SUMMARY | 2023-10-02 12:33 | XMS_ITS | Encounter Summary ---
Author Organization [facility] [place] [address] Care Team Providers Care Blower Operator Name Role Phone None Primary Care Provider Unavailabl e Encounter Details Date Type Department Care Team (Late st Contact Info) Description 11/18/2019 Telephone Pulmonology at [facility] [place] [phone] Anna Joe LNA Social History Tobacco Use [...] video visit. Pt states he told the medical assistant secretary when he scheduled and the MA that called him that he doesn't have a computer and can't do video visit. Rescheduled pt for 12/[address] for phone visit with Dr[address] Nesbitt. documented in this encounter Plan of Treatment Not on file documented as of this encounter Visit Diagnoses Not on filedocumented in this encounter Care Teams Blower Operator Relationship Specialty Start Date End Date None None PCP - General 01/22/18 03/01/20 documented as of this encounter
--- OUTSIDE RECORDS SUMMARY | 2023-10-02 12:33 | XMS_ITS | Encounter Summary ---
Author Organization [facility] Address [facility] [place] [address] Care Team Providers Care Refractory Mixer Name Role Phone Garth Berg MD Primary Care Provider [phone] Encounter Details Date Type Department Care Team (Latest Contact Info) Description 01/14/2018 11:48 AM EST - 01/14/2018 11:59 PM [facility] Hospital Encounter [place] [address] Backer, Amando Renteria MD [facility] [place] [address] Discharge Disposition: Home Social History Tobacco Use [...] DX Chest (01/14/2018 11:48 AM EST) Narrative [facility] - 01/14/2018 11:48 AM EST This exam is for storage only and is auto-finalizing. Amando SOLIS FILM LIBRARY ORD ERABLES [place], [place] documented in this encounter Visit Diagnoses Not on filedocumented in this encounter Care Teams Refractory Mixer Relationship Specialty Start Date End Date Garth Berg MD [address] [place] [address] PCP - General General Internal Medicine 03/02/17 documented as of this encounter
--- OUTSIDE RECORDS SUMMARY | 2023-10-02 12:33 | XMS_ITS | Encounter Summary ---
Author Organization [facility] [place] [address] Care Team Providers Care Matcher Offbearer Name Role Phone None Primary Care Provider Unavailabl e Encounter Details Date Type Department Care Team (Late st Contact Info) Description 09/29/2019 [place] [phone] Arielle Lord, [facility] Social History Tobacco Use Types Packs/Day Years [...] * Telephone Encounter - Arielle Lord, [facility] - 09/29/2019 3:44 PM EDT [facility] Front [facility]k [facility] Pre-Telemedicine Phone Note [] Patient not reached [x] Patient reached and the following information was reviewed/obtained per protocol: [x] Confirmed patient name and date of [x] Confirmed telemedicine ilda (Vidyo and Virtual Visit) is downloaded and functioning [x] Confirmed location of patient - TeleVisit is taking place in [] [place] [] [place] [] If not on [facility], working on signing up for [facility] [x] Confirmed has completed any pre-visit questionnaires [] If has not received required pre-visit questionnaires, send via [facility] [x] Reviewed patient medications ??? nitroGLYcerin (Nitrostat) [...] on filedocumented in this encounter Care Teams Matcher Offbearer Relationship Specialty Start Date End Date None None PCP - General 01/22/18 03/01/20 documented as of this encounter
--- OUTSIDE RECORDS SUMMARY | 2023-10-02 12:33 | XMS_ITS | Encounter Summary ---
Author Organization [facility] [place] [address] Care Team Providers Care Mechanical Reliability Engineer Name Role Phone None Primary Care Provider Unavailabl e Reason for Referral * Diagnostic Test (Routine) - Closed Specialty Diagnoses / Procedures Referred By Edis grossman Referred To Contact Radiology Diagnoses Pulmonary nodule Procedures CT Chest wo Contrast (Generic) Amando Robins MD [facility] [address] [facility] [place] [address] Referral ID Status Reason Start Date Expiration Date V isits Requested Visits Authorized [id number] Closed Specialty Service Requested 01/22/2018 01/22/2019 1 1 Encounter Details Date Type Department Care Team ([facility] st Contact Info) Description 01/22/2018 Tele[place] [address] Amando Roibns MD [facility] [address] Social History Tobacco Use Types [...] 11:22 AM Pulmonary & Critical Care Pager: [phone] documented in this encounter Plan of Treatment [...] nodule documented in this encounter Care Teams Mechanical Reliability Engineer Relationship Specialty Start Date End Date None None PCP - General 01/22/18 03/01/20 documented as of this encounter
--- OUTSIDE RECORDS SUMMARY | 2023-10-02 12:33 | XMS_ITS | Encounter Summary ---
Author Organization [facility] Address [facility] [place] [address] Care Team Providers Care Stem Cutter Name Role Phone Garth Marroquin DO Primary Care Provider [phone] Encounter Details Date Type Department Care Team (Late st Contact Info) Description 11/28/2020 Ancillary Procedure [place] [address] Mary Alice Nesbitt MD [facility] [place] [address] Social History Tobacco Use Types Packs/Day Years [...] DX Chest (11/28/2020 12:00 AM EDT) Narrative [facility] - 12/21/2020 4:12 PM EDT This exam is auto-finalizing. It's purpose is for storage only. Mary Alice Nesbitt MD IMG FILM LIBRARY ORD ERABLES [place], [place] documented in this encounter Visit Diagnoses Not on filedocumented in this encounter Care Teams Stem Cutter Relationship Specialty Start Date End Date Garth Marroquin DO [address] [place] [address] PCP - General Family Medicine 03/02/20 06/19/21 documented as of this encounter
--- OUTSIDE RECORDS SUMMARY | 2023-10-02 12:33 | XMS_ITS | Encounter Summary ---
Author Organization [facility] Address [facility] [place] [address] Care Team Providers Care Entry Driver Operator Name Role Phone Garth Marroquin DO Primary Care Provider [phone] Reason for Visit * Reason Comments Follow-up weight managment Encounter Details Date Type Department Care Team (Late st Contact Info) Description 12/20/2020 3:30 PM EDT Office Visit Weight and Wellness at [address] [address] Tessie Robles MD [facility] [address] [place] [address] Class 2 obesity due to excess calories [...] Robles MD - 12/20/2020 3:30 PM EDT [facility] [place] Patient Name: Pavan Padilla Date of : [...] Diabetes withneuropathy, Osteoarthritis. This is a folllow-up [facility] visit for this 55 y.o. patient. Weight gain due to: less activity, weight gaining medications, increased intake and frequent [facility] Barriers: adentulous Initial visit: 09/27/20 Initial weight: 231# Initial BMI: 38.17 kg/m??. Goal weight: 165 10% loss: 210# Other goals: Improve diabetes Today's weight: 219.75 Change since prior: -12# [facility] Team: Tessie Robles MD, Justyna Horan RD and Aguilar Lagunas, Health Atlassian Administrator - all pending HPI is worried about [...] to a diff brand, cravings resumed. Pathway: [facility] PATHWAY - ADULT 09/27/2020 Obesity Medicine [...] skips meals []? Night eating ? Movement: [facility]: PAVS 09/27/2020 How many days during [...] behavioral interventions, see goals Referrals: Dietitian, Health Atlassian Administrator, AOM: Continue semaglutide for DM and weight [...] in about 4 weeks (around 01/17/2021) for Zojahaira or clinic, //RD:, Next available - has [...] hemoglobin, total (HA1C) (12/20/2020 4:15 PM EDT) Hemoglobin A1C, POC 6.8(A) 4.3 - 5.6 % 12/20/2020 4:15 [...] type documented in this encounter Care Teams Entry Driver Operator Relationship Specialty Start Date End Date Garth Marroquin DO [address] [place] [address] PCP - General Family Medicine 03/02/20 06/19/21 documented as of this encounter
--- OUTSIDE RECORDS SUMMARY | 2023-10-02 12:33 | XMS_ITS | Encounter Summary ---
Author Organization [facility] Address [facility] [place] [address] Care Team Providers Care Laborer Syrup Machine Name Role Phone Garth Berg MD Primary Care Provider [phone] Encounter Details Date Type Department Care Team (Latest Contact Info) Description 12/16/2017 - 12/16/2017 11:59 PM EDT Hospital Encounter [place] [address] MorriserAmando MD [facility] [place] [address] Discharge Disposition: Home Social History Tobacco Use [...] SOLIS FILM LIBRARY ORD ERABLES [place] documented in this encounter Visit Diagnoses Not on filedocumented in this encounter Care Teams Laborer Syrup Machine Relationship Specialty Start Date End Date Garth Berg MD [address] [place] [address] PCP - General General Internal Medicine 03/02/17 documented as of this encounter
--- OUTSIDE RECORDS SUMMARY | 2023-10-02 12:33 | XMS_ITS | Encounter Summary ---
[place] [address] Care Team Providers Care Travel Registered Nurse Pacu Name Role Phone Garth Berg MD Primary Care Provider [phone] Encounter Details Date Type Department Care Team (Late st Contact Info) Description 01/05/2018 Tele[place] [phone] Gisela Escamilla Social History Tobacco Use Types [...] on filedocumented in this encounter Care Teams Travel Registered Nurse Pacu Relationship Specialty Start Date End Date Garth Berg MD [address] [place] [address] PCP - General General Internal Medicine 03/02/17 documented as of this encounter
--- OUTSIDE RECORDS SUMMARY | 2023-10-02 12:33 | XMS_ITS | Encounter Summary ---
Author Organization [facility] Address [facility] [place] [address] Care Team Providers Care Debt Management Counselor Name Role Phone Garth Marroquin DO Primary Care Provider Encounter Details Date Type Department Care Team (Late st Contact Info) Description 11/08/2020 Telephone Weight and Wellness at [facility] [address] [place] [address] [facility] [place] [place] [address] Social History Tobacco Use Types Packs/Day Years [...] appointment. Invalid number message received. Justyna Horan MS RDN LD documented in this encounter Plan [...] on filedocumented in this encounter Care Teams Debt Management Counselor Relationship Specialty Start Date End Date Garth Marroquin DO [address] [place] [address] PCP - General Family Medicine 03/02/20 06/19/21 documented as of this encounter
--- OUTSIDE RECORDS SUMMARY | 2023-10-02 12:33 | XMS_ITS | Encounter Summary ---
Author Organization [facility] Address [facility] [place] [address] Care Team Providers Care Power Hammer Operator Name Role Phone Unknown Primary Care Provider Unavailabl e Encounter Details Date Type Department Care Team (Latest Contact Info) Description 01/15/2018 8:28 AM EST - 01/15/2018 11:59 PM EST Hospital Encounter Pulmonology at [facility] [place] [address] Pulmonary nodule Discharge Disposition: Home Social History [...] nodule documented in this encounter Care Teams Power Hammer Operator Relationship Specialty Start Date End Date Unknown None PCP - General 01/15/18 01/21/18 documented as of this encounter
--- OUTSIDE RECORDS SUMMARY | 2023-10-02 12:33 | XMS_ITS | Encounter Summary ---
Author Organization [facility] [place] [address] Care Team Providers Care Apple Press Operator Name Role Phone None Primary Care Provider Unavailabl e Encounter Details Date Type Department Care Team (Late st Contact Info) Description 12/19/2019 3:00 PM EST TH Visit (TeleHealth) [place] [phone] Mary Alice Nesbitt MD [facility] [place] [address] Tobacco abuse Social History Tobacco Use Types [...] from the original note were not included. [facility] Section of Pulmonary and Critical Care [...] number below. Electronically signed by: Salud Beltran [facility] ([phone]), at 11/22/2018 9:47 AM Pulmonary Function Tests: 01/15/2018: Normal FVC 3.58 [...] or questions arise. Mary Alice Nesbitt MD Hydrogenation Still OperatorSenior Logistics Manager Pulmonary and [place] [address] documented in this encounter Plan of Treatment Not on file documented as of this encounter Visit Diagnoses Diagnosis Tobacco abuse Tobacco use disorder documented in this encounter Care Teams Apple Press Operator Relationship Specialty Start Date End Date None None PCP - General 01/22/18 03/01/20 documented as of this encounter
--- OUTSIDE RECORDS SUMMARY | 2023-10-02 12:33 | XMS_ITS | Encounter Summary ---
Author Organization [facility] Address [facility] [place] [address] Care Team Providers Care Architect Internship Name Role Phone Garth Marroquin DO Primary Care Provider [phone] Encounter Details Date Type Department Care Team (Late st Contact Info) Description 12/21/2020 9:00 AM EDT Office [place] [address] Mary Alice Nesbitt MD [facility] [place] [address] Tobacco abuse; Personal history of nicotine dependence [...] Notes * Mary Alice Nesbitt MD - 12/21/2020 9:00 AM EDT Images from the original note were not included. [facility] Section of Pulmonary and Critical Care Medicine Outpatient Consultation Date of Encounter: 12/21/2020 Referring Provider: No referring provider defined for this encounter. Reason for Evaluation: Tobacco use/lung nodule History of Present Illness: Mr. Padilla is a 55-year-old male who presents today for a follow-up visit. After his last visit with nm, he had a CT chest for lung [...] number below. Electronically signed by: Salud Beltran [facility] ([phone]), at 11/22/2018 9:[address] chest 01/05: No concerning nodules noted. Emphysematous [...] screening CT chest in November 2020 at [facility], results of which are unavailable to me [...] his lung cancer screening with [place] [facility]. 2. Tobacco abuse ?? The patient continues [...] or questions arise. Mary Alice Nesbitt MD Customer Service AdvisorBanana Room Cutter Pulmonary and Critical [place] [address] documented in this encounter Plan of Treatment [...] health documented in this encounter Care Teams Architect Internship Relationship Specialty Start Date End Date Garth Marroquin DO [address] [place] [address] PCP - General Family Medicine 03/02/20 06/19/21 documented as of this encounter
--- OUTSIDE RECORDS SUMMARY | 2023-10-02 12:33 | XMS_ITS | Encounter Summary ---
Author Organization [facility] [place] [address] Care Team Providers Care Aviation Electrician Name Role Phone None Primary Care Provider Unavailabl e Encounter Details Date Type Department Care Team (Late st Contact Info) Description 11/15/2019 Telephone [place] [phone] Eva Morin, CLEAT FEEDER Social History Tobacco Use Types Packs/Day Years [...] Morin - 11/15/2019 2:50 PM EDT 5C Marine Welder Pre-Telemedicine Phone Note [] Patient not reached [...] on filedocumented in this encounter Care Teams Aviation Electrician Relationship Specialty Start Date End Date None None PCP - General 01/22/18 03/01/20 documented as of this encounter
--- OUTSIDE RECORDS SUMMARY | 2023-10-02 12:33 | XMS_ITS | Encounter Summary ---
Author Organization [facility] [place] [address] Care Team Providers Care Deposit Clerk Name Role Phone None Primary Care Provider Unavailabl e Reason for Visit * Diagnostic Test (Routine) - Closed Specialty Diagnoses / Procedures Referred By Edis grossman Referred To Contact Radiology Diagnoses Pulmonary nodule Procedures PET CT Standard Skull Base to Mid-Thigh Amando Robins MD [facility] [address] [place] [address] Referral ID Status Reason Start Date Expiration Date V isits Requested Visits Authorized [id number] Closed Specialty Service Requested 01/15/2018 01/15/2019 1 1 Encounter Details Date Type Department Care Team (Latest Contact Info) Description 01/22/2018 6:21 AM EST - 01/22/2018 11:59 PM [facility] Hospital Encounter [place] [address] Amando Robins MD [facility] [address] Discharge Disposition: Home Social History [...] mCi documented in this encounter Care Teams Deposit Clerk Relationship Specialty Start Date End Date None None PCP - General 01/22/18 03/01/20 documented as of this encounter
--- OUTSIDE RECORDS SUMMARY | 2023-10-02 12:33 | XMS_ITS | Encounter Summary ---
Author Organization [facility] [place] [address] Care Team Providers Care Ekg Technician Name Role Phone Garth Marroquin DO Primary Care Provider Encounter Details Date Type Department Care Team (Late st Contact Info) Description 11/21/2020 Ancillary Procedure [place] [phone] Garth aMrroquin DO [address] [place], [place] [address] Social History Tobacco Use Types Packs/Day Years [...] CT Chest (11/21/2020 12:00 AM EDT) Narrative [facility] - 12/24/2020 1:29 AM EST This exam is auto-finalizing. It's purpose is for storage only. Garth Marroquin DO [facility] FILM LIBRARY ORD ERABLES Performing Organization Address City/State/[facility] Co de Phone Number [place], [place] documented in this encounter Visit Diagnoses Not on filedocumented in this encounter Care Teams Ekg Technician Relationship Specialty Start Date End Date Garth Marroquin DO [address] [place] [address] PCP - General Family Medicine 03/02/20 06/19/21 documented as of this encounter
--- OUTSIDE RECORDS SUMMARY | 2023-10-02 12:34 | XMS_ITS | Encounter Summary ---
Author Organization [facility] [place] [address] Care Team Providers Care Historic Site Administrator Name Role Phone Judd Scott MD Primary Care Provider [phone] Encounter Details Date Type Department Care Team (Late st Contact Info) Description 08/16/2013 Orders [place] [address] Warren He MD [facility] DR [place] [address] Social History Tobacco Use Types Packs/Day Years [...] is a Non-reportable exam Warren He MD [facility] FILM LIBRARY ORD ERABLES documented in this encounter Visit Diagnoses Not on filedocumented in this encounter Care Teams Historic Site Administrator Relationship Specialty Start Date End Date Judd Scott MD PCP - General 01/08/10 03/01/17 documented as of this encounter
--- OUTSIDE RECORDS SUMMARY | 2023-10-02 12:34 | XMS_ITS | Encounter Summary ---
Author Organization [facility] Address [facility] [place] [address] Care Team Providers Care Mortar Mixer Name Role Phone Judd Scott MD Primary Care Provider [phone] Encounter Details Date Type Department Care Team (Latest Contact Info) Description 02/23/2017 - 02/23/2017 11:59 PM EST Hospital Encounter [place] [address] Jose Olivares MD [facility] [place] [address] Discharge Disposition: Home Social History Tobacco Use [...] nuclear medicine (02/23/2017 12:00 AM EST) Narrative [facility] - 03/20/2017 12:47 PM EST This exam is for storage only and is auto-finalizing. Jose Olivares MD IMG FILM LIBRARY ORD ERABLES [place], [place] documented in this encounter Visit Diagnoses Not on filedocumented in this encounter Care Teams Mortar Mixer Relationship Specialty Start Date End Date Judd Scott MD PCP - General 01/08/10 03/01/17 documented as of this encounter
--- OUTSIDE RECORDS SUMMARY | 2023-10-02 12:34 | XMS_ITS | Encounter Summary ---
[place] [address] Care Team Providers Care Fisher Pot Name Role Phone Judd Scott MD Primary Care Provider [phone] Reason for Visit * Reason Onset Date Comments Referral 03/01/2014 Encounter Details Date Type Department Care Team (Late st Contact Info) Description 03/01/2014 [place] [address] Faiza Kline Referral Social History Tobacco Use [...] Received 12 pages of office notes from [facility], for the patients upcoming appointment. List what was rec'd. Office Notes Pathology Reports * Telephone Encounter - Olivia Rojo - 03/06/2014 12:30 PM EST REC'D SUSANA SENT TO [facility] * Telephone Encounter - Faiza Baig - 03/01/2014 9:07 AM EST Still have yet to receive SUSANA. Tried to call patient on the number on record. Phone has been disconnected. documented in this encounter Plan of Treatment Not on file documented as of this encounter Visit Diagnoses Not on filedocumented in this encounter Care Teams Fisher Pot Relationship Specialty Start Date End Date Judd Scott MD PCP - General 01/08/10 03/01/17 documented as of this encounter
--- OUTSIDE RECORDS SUMMARY | 2023-10-02 12:34 | XMS_ITS | Encounter Summary ---
Author Organization [facility] [place] [address] Care Team Providers Care System Safety Engineer Name Role Phone Garth Berg MD Primary Care Provider [phone] Reason for Visit * Auth/Cert Specialty Diagnoses / Procedures Referred By Contac t Referred To Contact Diagnoses Unstable angina [place] ?CAD Procedures CARDIAC CATHETERIZATION Referral ID Status Reason Start Date Expiration Date Visits Re quested Visits Authorized [id number] 1 1 Encounter Details Date Type Department Care Team (Late st Contact Info) Description 03/20/2017 4:00 PM EST - 03/20/2017 5:00 PM [place] [id number] Fantasma Rubalcava MD [facility] [place] [address] CARDIAC CATHETERIZATION Social History Tobacco Use Types [...] Mannie Padilla Patient Age: 51 y.o. Language: Burundian Race: Ethnicity: Admit date: 03/20/2017 Discharge date [...] please contact your inpatient physician through the [facility] Shelter Monitor . Issues afterhours and on weekends will be handled by the forest resource specialist on-call. Discharge Diagnoses (Hospital Problems) and Secondary [...] (>100 pack years) presenting in transfer from [facility] with unstable angina. He presented to the [...] weeks. ?? Emergency contact: Gayatri Suarez - [phone] (Mother) ?? OSH labs prior to transfer: [...] up with your primary care provider and cat hooker for further instructions on your medication regimen. Primary care follow up: To be determined Follow-Up Appointments Future Appointments Date Time Provider Department Center 04/16/2017 12:00 PM Laverne Coon MD [facility] Date and Time Provider and Specialty Location Your Inpatient Doctor(s) at [facility]: Dr. Jose West General Instructions None Future Appointments and Orders Future Appointments Provider Department Dept Phone 04/16/2017 12:00 PM Laverne Coon MD Cardiology at [place] [phone] Discharge References/Attachments None documented in this encounter [...] up with your primary care provider and cat hooker for further instructions on your medication regimen. Primary care follow up: To be determined Follow-Up Appointments Future Appointments Date Time Provider Department Center 04/16/2017 12:00 PM Laverne Coon MD [facility] Date and Time Provider and Specialty Location Your Inpatient Doctor(s) at [facility]: Dr. Jose West documented in this encounter [...] removed and telemetry disconnected. Patient brought to [facility] via wheelchair. * Jose Olivares MD [...] (>100 pack years) presenting in transfer from [facility] with unstable angina. Active Problems: Active Hospital [...] (>100 pack years) presenting in transfer from [facility] with unstable angina. Plan: Cardiac catheterization shows [...] He will follow-up with his PCP and cat hooker as an outpatient. Jim West MD, PGY-1 Cardiology S1 (pgr. [phone]) CARDIOLOGY STAFF NOTE Mannie Padilla is a [...] this and is ambulatory. Jose Olivares MD, [facility] Staff Touch Up Edger pager [phone] * Savita Aquilino X - 03/21/2017 12:02 [...] complications. Will continue to monitor. * Effie Yougn, CHATO - 03/20/2017 4:37 PM EST OUTCOME EVALUATION NOTE: OUTCOME SUMMARY: Patient arrived from OSH. VSS on RA. Telemetry initiated, NSR. EKG obtained. Admit labs drawn. Bedside echo obtained. Family at bedside. Patient brought to cath lab manager. Patient returned from cath lab manager. TR band in place. Fluids infusing as [...] in the chart. Plan/ Coronary Angio per tester operator helper preference No c/i to long-term DAPT Moderate sedation MAGUI Mijares MD documented in this encounter H&P Notes * Jose Olivares MD - 03/20/2017 1:39 PM EST Cardiology Admission History and Physical Patient Name: Mannie Padilla Service: Cardiology S1 Team Responsible Attending: Jose Olivares MD PCP: Garth Berg MD PCP phone #: [phone] ID/Chief Complaint: 51 y.o. man with history [...] (>100 pack years) presenting in transfer from [facility] with unstable angina. He presented to the [...] recent weeks. Emergency contact: Gayatri Suarez - [phone] (Mother) OSH labs prior to transfer: CBC: [...] Only Family History: Mother: HTN, CVA MGF: CT 55 MGGF: CT 80 Father: of brain cancer at 67 [...] in the last 7068 hours. Invalid input(s): [id number] Heme: No results for input(s): LDH, HAPTOGLOBIN, [...] (>100 pack years) presenting in transfer from [facility] with unstable angina. He is currently without chest pain and has successfully been weaned off nitroglycerine drip. Given presentation, risk factorsand recent positive stress test, we will proceed with cardiac catheterization. Details of plan as follows. PLAN: Admit to Cardiology, S1 Team Pager # [phone] # ACS - unstable angina - Medications [...] therapies. Jose Olivares MD, FACC, FASE Staff Touch Up Edger pager [phone] documented in this encounter Miscellaneous Notes * [...] Procedure Name Priority Date/Time Associated Diagnosis Comments BODY AND FENDER WORKER SCAN 03/22/2017 12:00 AM EST POCT GLUCOSE [...] 03/21/2017 5:07 AM EST BASIC METABOLIC PANEL STAT 03/21/2017 5:07 AM EST POCT GLUCOSE Routine 03/20/2017 8:06 PM EST CARDIAC CATHETERIZATION Routine 03/20/19 18 5:15 PM EST ECHO COMPLETE W CONTRAST Routine 03/20/2017 4:44 PM EST Atherosclerosis of y[place]k coronary artery of yurok heart with unstable angina pectoris EKG 12-LEAD STAT 03/20/2017 3:05 PM EST Atherosclerosis of y[place] coronary artery of y[place] heart with unstable angina pectoris HEMOGRAM Routine [...] 8 2:54 PM EST BASIC METABOLIC PANEL Routine 03/20/2017 2:54 PM EST CARDIAC CATH SCAN 03/20/2017 12: 00 AM EST documented in this encounter Results * SCAN DOC: BODY AND FENDER WORKER (03/22/2017 12:00 AM EST) Anatomical Region Laterality Modality Other Narrative 03/22/2017 12:00 AM EST Ordered by an unspecified provider. Scanning Provider MEDIA MGR SCAN EXT O RDR/RSLT * POCT Glucose (03/21/2017 11:58 AM EST) Glucose, POC 104 65 - 199 mg/dL [facility] Comment: Supplemental ranges: <140 mg/dL before meals <180 mg/dL all other times of the day Blood specimen (specimen) 03/21/2017 11:58 AM EST 03/21/2017 11:58 AM EST Jose Olivares MD POINT OF CARE TEST O DEANN Performing Organization Address City/[facility]/ZIP Co de Phone Number [facility] [place] [place] [address] * POCT Glucose (03/21/2017 7:39 AM EST) Glucose, POC 127 65 - 199 mg/dL [facility] Comment: Supplemental ranges: <140 mg/dL before meals <180 mg/dL all other times of the day Blood specimen (specimen) 03/21/2017 7:39 AM EST 03/21/2017 7:39 AM EST Jose Olivares MD POINT OF CARE TEST O RDERABLES [facility] [place] [address] * Magnesium (03/21/2017 5:07 AM EST) Magnesium 0.89 0.69 - 1.07 mmol/L [facility] Blood specimen (specimen) Venous Draw / Unknown 03/21/2017 5:07 AM EST 03/21/2017 5:30 AM EST Narrative Resulting Agency Comment Spec In Lab Jim West MD CHEMISTRY SALO SALGADO [facility] [place] [address] * (ABNORMAL) Basic Metabolic Panel (non-fasting) (03/21/2017 5:07 AM EST) Glucose 121 65 - 199 mg/dL [facility] Comment:Diabetes: >=200 mg/d L plus symptoms Blood Urea Nitrogen 19 10 - 20 mg/dL [facility] Creatinine 1.31 0.80 - 1.50 mg/dL [facility] Sodium 139 135 - 145 mmol/L [facility] Potassium 4.0 3.5 - 5.0 mmol/L [facility] Comment: Please note: ??Patients with WBC >100,000 may have falsely elevated Potassium levels. ??For accurate Potassium quantification in these patients send serum separator tube (gold top) for subsequent determinations. ??Contact the Clinical Chemistry Laboratory if there are any questions. Chloride 103 98 - 107 mmol/L [facility] Carbon Dioxide 25 22 - 31 mmol/L [facility] Anion Gap 11 5 - 15 mmol/L [facility] Calcium 9.2 8.5 - 10.5 mg/dL [facility] Est Glomerular Filtration Rate 57(L) >=60 [facility] Comment: The reported eGFR should be multiplied by 1.2 for patients. The MDRD is not an appropriate measure of renal function for patients with body mass extremes or in patients with acute kidney failure. http://Mevvy.JackBe/DHnkdep http://Mevvy.JackBe/DHMCnkf Blood specimen (specimen) 03/21/2017 5:07 AM EST 03/21/2017 5:29 AM EST Narrative Resulting Agency Comment Spec In Lab Jose Olivares MD CHEMISTRY ORDERABLES Performing Organization Address City/[facility]/ZIP Co de Phone Number [facility] [place] [address] * (ABNORMAL) Differential, Automated (03/21/2017 5:07 AM EST) Neutrophil % 57.4 % [facility] Neutrophil Absolute 4.37 1.70 - 6.10 x10(3)/mc L [facility] Lymph % 23.6 % [facility] Lymphocytes Abs 1.8 0.9 - 3.2 x10(3)/mc L [facility] Monocyte % 13.2 % [facility] Monocyte Abs 1.0(H) 0.3 - 0.9 x10(3)/mc L [facility] Eos % 3.2 % [facility] Eosinophils Abs 0.2 0.0 - 0.4 x10(3)/ L [facility] Basophil % 1.2 % [facility] Baso Absolute 0.1 0.0 - 0.1 x10(3)/mc L [facility] Immature Gran % 1.40 % [facility] Comment: Immature granulocytes(IG's)percentage and absolute count will include metamyelocytes, myelocytes, and promyelocytes. Blood smears from CBCs yielding IG's will be scanned manually for concordance. If this scan disagrees with the automated IG or if promyelocytes are noted, a manual differential will be performed. Immature Gran Absolute 0.11(H) 0.00 - 0.04 x10(3)/mc L [facility] Blood specimen (specimen) 03/21/2017 5:07 AM EST 03/21/2017 5:28 AM EST Narrative Resulting Agency Comment Spec In Lab Noelle Hearn MD HEMATOLOGY ORDERABLE S Performing Organization Address City/[facility]/ZIP Co de Phone Number [facility] [place] [address] * Hemogram (03/21/2017 5:07 AM EST) White Blood Cell 7.6 4.0 - 9.5 x10(3)/[facility] Red Blood Cell 4.83 4.58 - 5.54 x10(6)/[facility] Hemoglobin 14.6 13.7 - 16.5 gm/dL [facility] Hematocrit 43.1 40.5 - 48.5 % [facility] Mean Cell Volume 89.2 82.9 - 93.1 fL [facility] Mean Cell Hemoglobin 30.2 27.5 - 32.1 pg [facility] Mean Cell Hemoglobin Concentration 33.9 32.0 - 35.7 gm/dL [facility] Platelet 200 145 - 357 x10(3)/[facility] RDW Standard Deviation 42.4 36.0 - 45.0 [facility] RDW coefficient of variation 12.9 11.4 - 13.8 % [facility] Mean Platelet Volume 10.5 7.6 - 12.9 [facility] NRBC% auto 0.0 % [facility] NRBC Absolute 0.000 0.000 - 0.000 x10(3)/[facility] Blood specimen (specimen) 03/21/2017 5:07 AM EST 03/21/2017 5:28 AM EST Narrative Resulting Agency Comment Spec In Lab Noelle Hearn MD HEMATOLOGY ORDERABLE S [facility] [place] [address] * (ABNORMAL) Hemoglobin A1c (03/21/2017 5:07 AM EST) Hemoglobin A1c 6.0(H) 4.3 - 5.6 % [facility] Comment: Reference Range: 4.3 [...] Mellitus, Diabetes Care 2013; 36: Suppl. 1, S37-35 Estimated Average Glucose 126 mg/dL [facility] Comment: eAG equivalents [...] into estimated average glucose values. ??Diabetes Care 2008:31(8):9180-0050. Blood specimen (specimen) 03/21/2017 5:07 AM EST 03/21/2017 5:29 AM EST Narrative Resulting Agency Comment Spec In Lab Jose Olivares MD CHEMISTRY ORDERABLES [facility] [place] [address] * (ABNORMAL) Lipid Panel (03/21/2017 5:07 AM EST) Cholesterol, Total 129 <=239 mg/dL [facility] Triglyceride 330(H) <=199 mg/dL [facility] HDL Cholesterol 22(L) >=40 mg/dL [facility] LDL Cholesterol 41 <=190 mg/dL [facility] Cholesterol/HDL Ratio 5.9 ratio [facility] Lipid Interpretation See Note [facility] Comment: Lipid management should be guided by a patient? s ASCVD risk, goals and preferences. ACC/AHA Guidelines recommend high intensity statin if clinical ASCVD or LDL greater than or equal to 190 mg/dL. http://Mevvy.com/GWQ-TBR-Deoajxfaw Adults aged 40-75 with LDL 70-189 mg/dL should have their 10 year ASCVD risk estimated with the ACC/AHA ASCVD risk estimator project manager http://tools.acc.org/UJSIB-Wdvz-Ciljnhwta/ Statin should be discussed if risk greater [...] In Lab Jose Olivares MD CHEMISTRY ORDERABLES [facility] [place] [address] * POCT Glucose (03/20/2017 8:06 PM EST) Glucose, POC 125 65 - 199 mg/dL [facility] Comment: Supplemental ranges: <140 mg/dL before meals <180 mg/dL all other times of the day Blood specimen (specimen) 03/20/2017 8:06 PM EST 03/20/2017 8:06 PM EST Jose Olivares MD POINT OF CARE TEST O RDERABLES [facility] [place] [address] * CARDIAC CATHETERIZATION (03/20/2017 5:15 PM EST) Anatomical Region Laterality Modality Other Narrative 03/20/2017 5:30 PM EST ?[facility] ? Cardiac Catheterization/Intervention Report ? Patient Name: , Mannie D. ? Procedure Date: 03/20/2017 ? A #: [id number] ? Primary Physician: Fantasma Rubalcava ? Case #: [id number] ? File Name: [id number] ? Catheterization Order Number: [id number] ? [facility] ? Final Report [place], [place] ? Patient Name: ? Mannie D. Merchant ? ID#: ?[id number] ? : ?1965 ? Procedure Date: ? March 20, 2017 ? Case #: ? [id number] ? Room: ? 5 ? Case Physician: [...] presented with: unstable angina (w/i 60 days). [place] ?Cardiovascular Society angina class was III. This [...] Fantasma Rubalcava, M.D. ? Electronically Signed by: Fantsama Rubalcava, M.D. ? Report Finalized: 03/20/2017 ??17:28 ? Report Last Ammended: 03/27/2017 ??08:21 ? Procedure Note Fantasma Rubalcava MD - 03/27/2017 [facility] Cardiac Catheterization/Intervention Report Patient Name: Mannie Padilla Procedure Date: 03/20/2017 A #: [id number] Primary Physician: Fantasma Rubalcava Case #: [id number] File Name: [id number] Catheterization Order Number: [id number] [facility] FinalReport [place], [place] Patient Name: Mannie Padilla ID#:[id number] :1965 Procedure Date: March 20, 2017 Case [...] presented with: unstable angina (w/i 60 days). [place] Cardiovascular Society angina class was III. This [...] CONTRAST (03/20/2017 4:44 PM EST) EF 65 [facility] Anatomical Region Laterality Modality Other 03/20/2017 Narrative 03/20/2017 4:57 PM EST Procedure: ?Transthoracic Echocardiogram Patient: ?MERCHANT MANNIE Renteria ?? (Age): 1965(51y) Med Rec#: ? [id number] ?Sex: ?M ? Site Loc: ? [facility] ?Ht / Wt: ??170(cm)/106(kg) Pt. Loc: ?Adult Floor ? BSA: ?2.16 Study Date: ?? 03/20/2017 ?Pt. Type: Inpatient Tape: ? 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 MV deceleration uwnl603.1 ?msec ? MV A-wave Vmax ?1 ?m/sec [...] ? Mid-Inferior ?Normal ? Mid-Inferoseptal ?Normal ? [place]-Septal ? Normal ? [place]-Anterior ? Normal ? [place]-Lateral ?Normal ? [place]-Inferior ? Normal ? [place]-Tip ?Normal ? This report has been electronically signed by: Micheal Kent MD ? 03/20/2017 16:56:45 Images reviewed and interpretation verified [facility] Cardiac Ultrasound Laboratory Procedure Note Micheal Kent MD - 03/20/2017 Procedure: Transthoracic Echocardiogram Patient: MERCHANT JENSENORE D (Age): 1965(51y) Med Rec#: [id number] Sex: M Site Loc: [facility] Ht / Wt: 170(cm)/106(kg) Pt. Loc: Adult Floor BSA: 2.16 Study Date: 03/20/2017 Pt. 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.110) [...] MV E-wave Vmax 0.8 m/sec MV deceleration mgzb273.1 msec MV A-wave Vmax 1 m/sec MV [...] Normal Mid-Posterolateral Normal Mid-Inferior Normal Mid-Inferoseptal Normal [place]-Septal Normal [place]-Anterior Normal [place]-Lateral Normal [place]-Inferior Normal [place]-Tip Normal This report has been electronically signed by: Micheal Kent MD 03/20/2017 16:56:45 Images reviewed and interpretation verified [facility] Cardiac Ultrasound [facility] Jose Olivares MD ECHO ORDERABLES * EKG 12 Lead (03/20/2017 3:05 PM EST) Ventricular rate 62 BPM MUSE SYSTEM Atrial Rate 62 BPM MUSE SYSTEM P-R Interval 146 ms MUSE SYSTEM QRS Duration 84 ms MUSE SYSTEM Q-T Interval 420 ms MUSE SYSTEM QTC Calculated (Bezet) 426 ms MUSE SYSTEM Calculated P Bayard 14 degrees MUSE SYSTEM Calculated R [place]ard 25 degrees MUSE SYSTEM Calculated T [place]ard 27 degrees MUSE SYSTEM INTERPRETATION Normal sinus rhythm Normal ECG No previous ECGs available Confirmed by Jose Olivares MD ([id number]) on 03/20/2017 5:30:25 PM MUSE SYSTEM 03/20/2017 3:05 PM EST 03/20/2017 5:30 PM EST Jose Olivares MD ECG ORDERABLES MUSE SYSTEM * (ABNORMAL) Differential, Automated (03/20/2017 2:54 PM EST) Neutrophil % 62.3 % [facility] Neutrophil Absolute 6.48(H) 1.70 - 6.10 x10(3)/mc L [facility] Lymph % 21.8 % [facility] Lymphocytes Abs 2.3 0.9 - 3.2 x10(3)/mc L [facility] Monocyte % 10.8 % [facility] Monocyte Abs 1.1(H) 0.3 - 0.9 x10(3)/ L [facility] Eos % 2.6 % [facility] Eosinophils Abs 0.3 0.0 - 0.4 x10(3)/[facility] Basophil % 1.1 % [facility] Baso Absolute 0.1 0.0 - 0.1 x10(3)/[facility] Immature Gran % 1.40 % [facility] Comment: Immature granulocytes(IG's)percentage and absolute count will include metamyelocytes, myelocytes, and promyelocytes. Blood smears from CBCs yielding IG's will be scanned manually for concordance. If this scan disagrees with the automated IG or if promyelocytes are noted, a manual differential will be performed. Immature Gran Absolute 0.15(H) 0.00 - 0.04 x10(3)/[facility] Blood specimen (specimen) 03/20/2017 2:54 PM EST 03/20/2017 3:00 PM EST Narrative Resulting Agency Comment Spec In Lab Noelle Hearn MD HEMATOLOGY ORDERABLE S [facility] [place] [address] * (ABNORMAL) Hemogram (03/20/2017 2:54 PM EST) White Blood Cell 10.4(H) 4.0 - 9.5 x10(3)/[facility] Red Blood Cell 4.79 4.58 - 5.54 x10(6)/[facility] Hemoglobin 14.5 13.7 - 16.5 gm/dL [facility] Hematocrit 41.9 40.5 - 48.5 % [facility] Mean Cell Volume 87.5 82.9 - 93.1 fL [facility] Mean Cell Hemoglobin 30.3 27.5 - 32.1 pg [facility] Mean Cell Hemoglobin Concentration 34.6 32.0 - 35.7 gm/dL [facility] Platelet 188 145 - 357 x10(3)/mc L [facility] RDW Standard Deviation 40.9 36.0 - 45.0 fL [facility] RDW coefficient of variation 12.9 11.4 - 13.8 % [facility] Mean Platelet Volume 10.5 7.6 - 12.9 fL [facility] NRBC% auto 0.0 % [facility] NRBC Absolute 0.000 0.000 - 0.000 x10(3)/mc L [facility] Blood specimen (specimen) 03/20/2017 2:54 PM EST 03/20/2017 3:00 PM EST Narrative Resulting Agency Comment Spec In Lab Noelle Hearn MD HEMATOLOGY ORDERABLE S [facility] [place] [address] * Cardiac Enzymes (LEB/CGP) (03/20/2017 2:54 PM EST) Troponin-T <0.01 0.00 - 0.00 ng/mL [facility] Comment: The 99th percentile for Troponin T is less than 0.01 ng/mL, any detectable cTnT concentration using this assay should be considered elevated. According to the third universal definition of myocardial infarction the following criteria with a clinical presentation consistent with acute myocardial ischemia meets the diagnosis for a myocardial infarction (CT). Detection of a rise and/or fall of cTnT, with at least one value greater than the 99th percentile (> or = 0.01) and with at least one of the following ?? Symptoms of ischemia ?? New or presumed new significant WX-eszzbpq-L wave (ST-T) changes or new left bundle [...] additional sample may be indicated. Reference: [place] Definition of Myocardial Infarction. Journal of the [place] College of Cardiology 2012;60:1581-98 Creatine Kinase 116 0 - 200 unit/L [facility] Blood specimen (specimen) 03/20/2017 2:54 PM EST 03/20/2017 3:00 PM EST Narrative Resulting Agency Comment Spec In Lab Jose Olivares MD CHEMISTRY ORDERABLES Performing Organization Address [facility] Phone Number [facility] [place] [address] * Prothrombin Time (03/20/2017 2:54 PM EST) Prothrombin Time 13.1 11.8 - 14.0 sec [facility] International Normalization Ratio 1.0 0.9 - 1.1 [facility] Comment: An INR <2.0 indicates adequate [...] MD HEMATOLOGY ORDERABLE S Performing Organization Address [facility] Co de Phone Number [facility] [place] [address] * Hepatic Function Panel (03/20/2017 2:54 PM EST) Protein, Total 6.9 6.1 - 8.0 gm/dL [facility] Albumin 4.2 3.2 - 5.2 gm/dL [facility] Aspartate Aminotransferase 17 0 - 39 unit/L [facility] Alanine Aminotransferase 27 0 - 55 unit/L [facility] Alkaline Phosphatase 68 40 - 120 unit/L [facility] Bilirubin, Total 0.4 0.2 - 1.3 mg/dL [facility] Bilirubin, Direct 0.1 0.0 - 0.3 mg/dL [facility] Blood specimen (specimen) 03/20/2017 2:54 PM EST 03/20/2017 3:00 PM EST Narrative Resulting Agency Comment Spec In Lab Jose Olivares MD CHEMISTRY ORDERABLES Performing Organization Address City/[facility]/ZIP Co de Phone Number [facility] [place] [address] * pro-Brain Natriuretic Peptide (03/20/2017 2:54 PM EST) NT-proBNP 14 <=125 pg/mL [facility] Blood specimen (specimen) 03/20/2017 2:54 PM EST 03/20/2017 3:00 PM EST Narrative Resulting Agency Comment Spec In Lab Jose Olivares MD CHEMISTRY ORDERABLES Performing Organization Address City/[facility] Hospital/ZIP Co de Phone Number [facility] [place] [address] * TSH (03/20/2017 2:54 PM EST) Thyroid Stimulating Hormone 0.62 0.27 - 4.20 mlU/ML [facility] Blood specimen (specimen) 03/20/2017 2:54 PM EST 03/20/2017 3:00 PM EST Narrative Resulting Agency Comment Spec In Lab Jose Olivares MD CHEMISTRY ORDERABLES Performing Organization Address City/[facility] Co de Phone Number [facility] [place] [address] * Phosphorus (03/20/2017 2:54 PM EST) Phosphorus 3.3 2.5 - 4.5 mg/dL [facility] Blood specimen (specimen) 03/20/2017 2:54 PM EST 03/20/2017 3:00 PM EST Narrative Resulting Agency Comment Spec In Lab Jose Olivares MD CHEMISTRY ORDERABLES Performing Organization Address [facility] Co de Phone Number [facility] [place] [place] [address] * Magnesium (03/20/2017 2:54 PM EST) Magnesium 0.85 0.69 - 1.07 mmol/L [facility] Blood specimen (specimen) 03/20/2017 2:54 PM EST 03/20/2017 3:00 PM EST Narrative Resulting Agency Comment Spec In Lab Jose Olivares MD CHEMISTRY ORDERABLES Performing Organization Address [facility] Co de Phone Number [facility] [place] [place] [address] * Basic Metabolic Panel (non-fasting) (03/20/2017 2:54 PM EST) Glucose 90 65 - 199 mg/dL [facility] Comment:Diabetes: >=200 mg/d L plus symptoms Blood Urea Nitrogen 19 10 - 20 mg/dL [facility] Creatinine 1.22 0.80 - 1.50 mg/dL [facility] Sodium 140 135 - 145 mmol/L [facility] Potassium 3.8 3.5 - 5.0 mmol/L [facility] Comment: Please note: ??Patients with WBC >100,000 may have falsely elevated Potassium levels. ??For accurate Potassium quantification in these patients send serum separator tube (gold top) for subsequent determinations. ??Contact the Clinical Chemistry Laboratory if there are any questions. Chloride 103 98 - 107 mmol/L [facility] Carbon Dioxide 22 22 - 31 mmol/L [facility] Anion Gap 15 5 - 15 mmol/L [facility] Calcium 9.1 8.5 - 10.5 mg/dL [facility] Est Glomerular Filtration Rate >60 >=60 [facility] Comment: The reported eGFR should be multiplied by 1.2 for patients. The MDRD is not an appropriate measure of renal function for patients with body mass extremes or in patients with acute kidney failure. http://Effdon/DHnkdep http://Effdon/DHMCnkf Blood specimen (specimen) 03/20/2017 2:54 PM EST 03/20/2017 3:00 PM EST Narrative Resulting Agency Comment Spec In Lab Jose Olivares MD CHEMISTRY ORDERABLES Performing Organization Address [facility] Co de Phone Number [facility] [place] [place] [address] * (ABNORMAL) APTT (03/20/2017 2:54 PM EST) [facility] Partial Thromboplastin Time 43(H) 25 - 35 sec [facility] Comment: The recommended therapeutic range for full dose, unfractionated heparin at [facility] is 80 ? 114 seconds. The use of the anti-Xa (heparin) level rather than the PTT is recommended for monitoring anticoagulation intensity in critically ill patients receiving unfractionated heparin by continuous IV infusion. Blood specimen (specimen) 03/20/2017 2:54 PM EST 03/20/2017 3:00 PM EST Narrative Resulting Agency Comment Spec In Lab Jose Olivares MD HEMATOLOGY ORDERABLE S Performing Organization Address [facility] Co de Phone Number [facility] [place] [place] [address] * SCAN DOC: CARDIAC CATH (03/20/2017 12:00 [...] 03/21/17 at 0900, Until Discontinued, Routine 1616 (MAR Hold - Provider: Admin Adt - Reason: Transfer to a Procedural area)1736 ([facility] Unhold - Provider: Admin Adt) [...] Group 2) Transdermal, DAILY, First dose on Thu03/21/17 at 0900, Until Discontinued, Remove nicotine 21 mg/24 hr patch 1616 (MAR Hold - Provider: Admin Adt - Reason: Transfer to a Procedural area)1736 (MAR Unhold - Provider: Admin Adt) 0900 (Patch Removed - Provider: Effie Young RN) nicotine (NICODERM CQ) 21 mg/24 hr patch Patch Verification(Linked Group 2) Transdermal, 2 TIMES DAILY, First dose on 03/21/17 at 0900, Until Discontinued, Verify nicotine 21 mg/24 hr patch 1616 (MAR Hold - Provider: Admin Adt - Reason: Transfer to a Procedural area)1736 (MAR Unhold - Provider: Admin Adt) 0900 (Patch (dose and location) verified - Provider: Effie Young RN) pantoprazole (PROTONIX) tablet 40 mg 40 mg, Oral, DAILY, First dose on 03/21/17 at 0900, Until Discontinued 1616 ([facility] Hold - Provider: Admin Adt - Reason: Transfer to a Procedural area)1736 ([facility] Unhold - Provider: Admin Adt) 0857 (Given - Provider: Effie Young, CHATO) PARoxetine (PAXIL) tablet 20 mg 20 mg, Oral, NIGHTLY, First dose on Thu03/21/17 at 2100, Until Discontinued, Routine 1616 (APR Hold - Provider: Admin Adt - Reason: Transfer to a Procedural area)1736 ([facility] Unhold - Provider: Admin Adt) sodium chloride 0.9 % flush 5 mL 5 mL, Intravenous, 2 TIMES DAILY, First dose on Thu03/20/17 at 2100, Until Discontinued, Routine 1616 (APR Hold - Provider: Admin Adt - Reason: Transfer to a Procedural area)1736 ([facility] Unhold - Provider: Admin Adt)2100 (Given - Provider: Azalia Teirney RN) 0859 (Given - Provider: Effie Young [...] - Reason: Transfer to a Procedural area)1715 ([facility] Unhold - Provider: Admin Adt) [...] all sources in 24 hours., Routine 1616 (APR Hold - Provider: Admin Adt - Reason: Transfer to a Procedural area)1736 ([facility] Unhold - Provider: Admin Adt) [...] duration of the active insulin., Routine 1616 ([facility] Hold - Provider: Admin Adt - Reason: Transfer to a Procedural area)1736 ([facility] Unhold - Provider: Admin Adt) docusate sodium (COLACE) capsule 100 mg 100 mg, Oral, DAILY PRN, Starting on Thu03/20/17 at 1443, Until 03/21/17 at 1528, Constipation, Routine 161 ([facility] Hold - Provider: Admin Adt - Reason: Transfer to a Procedural area)173 ([facility] Unhold - Provider: Admin Adt) fentaNYL 50 mcg/mL multi-dose injection (CANCELED) ONCE PRN, Starting on Thu03/20/17 at 1634, Until Thu03/20/17 at 1715, Intra-Operative (Intra-Procedure), Routine 1634 (Given - Provider: Brenda Angelo, RN)164 (Given - Provider: Brenda Angelo, CHATO) glucagon (human recombinant) injection SolR 1 mg(Linked [...] duration of the active insulin., Routine 1616 ([facility] Hold - Provider: Admin Adt - Reason: Transfer to a Procedural area)1736 ([facility] Unhold - Provider: Admin Adt) heparin (porcine) injection (CANCELED) ONCE PRN, Starting on Thu03/20/17 at 1652, Until Thu03/20/17 at 1715, Cath (Intra-Procedure), Routine 165 (Given - Provider: Ezio Abarca MD) iohexol (OMNIPAQUE) 350 mg/mL solution (CANCELED) ONCE PRN, Starting on Thu03/20/17 at 1715, Until 03/20/17 at 1715, Cath (Intra-Procedure), Routine 171 (Given - Provider: Ezio Abarca MD) lidocaine (XYLOCAINE) 10 mg/mL (1 %) injection 3 mg 3 mg (0.3 mL), Subcutaneous, ONCE PRN, 1 dose, Starting on Thu03/20/17 at 1443, Until 03/21/17 at 1528, for discomfort with PIV insertion, Routine 1616 ([facility] Hold - Provider: Admin Adt [...] Buccal, EVERY 1 HOUR PRN, Starting on Thu03/20/17 at 1443, Until 03/21/17 at 1528, Smoking [...] provided on this medication record., Routine 1616 ([facility] Hold - Provider: Admin Adt - Reason: Transfer to a Procedural area)1736 ([facility] Unhold - Provider: Admin Adt) verapamil (ISOPTIN) [...] Routine documented in this encounter Care Teams System Safety Engineer Relationship Specialty Start Date End Date Garth Berg MD [address] [place] [address] PCP - General General Internal Medicine 03/02/17 documented as of this encounter
--- OUTSIDE RECORDS SUMMARY | 2023-10-02 12:34 | XMS_ITS | Encounter Summary ---
Author Organization [facility] [place] [address] Care Team Providers Care Dry Chain Operator Name Role Phone Judd Scott MD Primary Care Provider [phone] Encounter Details Date Type Department Care Team (Latest Contact Info) Description 05/29/2014 - 05/29/2014 11:59 PM EDT Hospital Encounter [place] [address] Amando Robins MD [facility] [place] [address] Discharge Disposition: Home Social History Tobacco Use [...] & Pelvis (05/29/2014 12:00 AM EDT) Narrative [facility] - 01/14/2018 11:46 AM EST This exam is for storage only and is auto-finalizing. Amando Robins MD G FILM LIBRARY ORD ERABLES Performing Organization Address City/State/[facility] Co de Phone Number [facility] [place], [place] documented in this encounter Visit Diagnoses Not on filedocumented in this encounter Care Teams Dry Chain Operator Relationship Specialty Start Date End Date Judd Scott MD PCP - General 01/08/10 03/01/17 documented as of this encounter
--- OUTSIDE RECORDS SUMMARY | 2023-10-02 12:34 | XMS_ITS | Encounter Summary ---
Author Organization [facility] Address [facility] [place] [address] Care Team Providers Care Batting Machine Operator Insulation Name Role Phone Garth Berg MD Primary Care Provider [phone] Encounter Details Date Type Department Care Team (Latest Contact Info) Description 03/19/2017 - 03/19/2017 11:59 PM EST Hospital Encounter [place] [address] Jose Olivares MD [facility] [place] [address] Discharge Disposition: Home Social History Tobacco Use [...] DX Chest (03/19/2017 12:00 AM EST) Narrative [facility] - 03/20/2017 12:46 PM EST This exam is for storage only and is auto-finalizing. Jose Olivares MD IMG FILM LIBRARY ORD ERABLES [place], [place] documented in this encounter Visit Diagnoses Not on filedocumented in this encounter Care Teams Batting Machine Operator Insulation Relationship Specialty Start Date End Date Garth Berg MD [address] [place] [address] PCP - General General Internal Medicine 03/02/17 documented as of this encounter
--- OUTSIDE RECORDS SUMMARY | 2023-10-02 12:34 | XMS_ITS | Encounter Summary ---
Author Organization [facility] [place] [address] Care Team Providers Care Corporate Counselor Name Role Phone Judd Scott MD Primary Care Provider Encounter Details Date Type Department Care Team (Late st Contact Info) Description 05/22/2011 Orders Only Hematology Oncology at [address] [id number] Jm Meyer MD [address] [place] [id number] Social History Tobacco Use Types Packs/Day Years [...] on filedocumented in this encounter Care Teams Corporate Counselor Relationship Specialty Start Date End Date Judd Scott MD PCP - General 01/08/10 03/01/17 documented as of this encounter
--- OUTSIDE RECORDS SUMMARY | 2023-10-02 12:34 | XMS_ITS | Encounter Summary ---
Author Organization [facility] [place] [address] Care Team Providers Care Glass Vial Filler Name Role Phone Judd Scott MD Primary Care Provider [phone] Encounter Details Date Type Department Care Team (Latest Contact Info) Description 11/22/2014 - 11/22/2014 11:59 PM EDT Hospital Encounter [place] [address] Amando Robins MD [facility] [place] [address] Discharge Disposition: Home Social History Tobacco Use [...] Chest (11/22/2014 12:00 AM EDT) Narrative [facility] - 01/14/2018 11:47 AM EST This exam is for storage only and is auto-finalizing. Amando Robins MD [facility] FILM LIBRARY ORD ERABLES [place], [place] documented in this encounter Visit Diagnoses Not on filedocumented in this encounter Care Teams Glass Vial Filler Relationship Specialty Start Date End Date Judd Scott MD PCP - General 01/08/10 03/01/17 documented as of this encounter
--- OUTSIDE RECORDS SUMMARY | 2023-10-02 12:34 | XMS_ITS | Encounter Summary ---
Author Organization [facility] Address [facility] [place] [address] Care Team Providers Care Propagation Manager Name Role Phone Garth Berg MD Primary Care Provider [phone] Reason for Visit * Auth/Cert Specialty Diagnoses / Procedures Referred By Contac t Referred To Contact Diagnoses Unstable angina [place] ?CAD Procedures CARDIAC CATHETERIZATION Referral ID Status Reason Start Date Expiration Date Visits Re quested Visits Authorized [id number] 1 1 Encounter Details Date Type Department Care Team (Latest Contact Info) Description 03/20/2017 1:33 PM EST - 03/21/2017 1:28 PM EST Hospital Encounter [place] [address] Jose Olivares MD [facility] [place] [address] Atherosclerosis of [place] coronary artery of [place] heart with unstable angina pectoris Discharge Disposition: [...] Mannie Padilla Patient Age: 51 y.o. Language: Gibraltarian Race: Ethnicity: Admit date: 03/20/2017 Discharge date [...] please contact your inpatient physician through the [facility] [employer] Support . Issues afterhours and on weekends will be handled by the linux security administrator on-call. Discharge Diagnoses (Hospital Problems) and Secondary [...] (>100 pack years) presenting in transfer from [facility] with unstable angina. He presented to [...] weeks. ?? Emergency contact: Gayatri Suarez - [phone] (Mother) ?? OSH labs prior to transfer: [...] up with your primary care provider and log handler for further instructions on your medication regimen. Primary care follow up: To be determined Follow-Up Appointments Future Appointments Date Time Provider Department Center 04/16/2017 12:00 PM Laverne Coon MD [facility] Cardio [place] [facility] Date and Time Provider and Specialty Location Your Inpatient Doctor(s) at [facility]: Dr. Jose West General Instructions None Future Appointments and Orders Future Appointments Provider Department Dept Phone 04/16/2017 12:00 PM Laverne Coon MD Cardiology at [place] [phone] Discharge References/Attachments None documented in this encounter [...] up with your primary care provider and log handler for further instructions on your medication regimen. Primary care follow up: To be determined Follow-Up Appointments Future Appointments Date Time Provider Department Center 04/16/2017 12:00 PM Laverne Coon MD [facility] Date and Time Provider and Specialty Location Your Inpatient Doctor(s) at [facility]: Dr. Jose West documented in this encounter [...] removed and telemetry disconnected. Patient brought to [facility] via wheelchair. * Jose Olivares MD - [...] (>100 pack years) presenting in transfer from [facility] with unstable angina. Active Problems: Active [...] (>100 pack years) presenting in transfer from [facility] with unstable angina. Plan: Cardiac catheterization [...] He will follow-up with his PCP and log handler as an outpatient. Jim West MD, PGY-1 Cardiology S1 (pgr. [id number]) CARDIOLOGY STAFF NOTE Mannie Padilla is a [...] this and is ambulatory. Jose Olivares MD, [facility] Staff Advance Scout pager [phone] * Aquilino Barney X - 03/21/2017 12:02 AM EST Post-Catheterization [...] complications. Will continue to monitor. * Effie Young RN - 03/20/2017 4:37 PM EST OUTCOME EVALUATION NOTE: OUTCOME SUMMARY: Patient arrived from OSH. VSS on RA. Telemetry initiated, NSR. EKG obtained. Admit labs drawn. Bedside echo obtained. Family at bedside. Patient brought to greenhouse laborer. Patient returned from greenhouse laborer. TR band in place. Fluids infusing [...] in the chart. Plan/ Coronary Angio per molding machine operator preference No c/i to long-term DAPT Moderate sedation MAGUI Mijares MD documented in this encounter H&P Notes * Jose Olivares MD - 03/20/2017 1:39 PM EST Cardiology Admission History and Physical Patient Name: Mannie Padilla Service: Cardiology S1 Team Responsible Attending: Jose Olivares MD PCP: Garth Berg MD PCP phone #: [phone] ID/Chief Complaint: 51 y.o. man with history [...] (>100 pack years) presenting in transfer from [facility] with unstable angina. He presented to [...] recent weeks. Emergency contact: Gayatri Suarez - [phone] (Mother) OSH labs prior to transfer: CBC: [...] Only Family History: Mother: HTN, CVA MGF: MT 57 MGGF: MT 80 Father: of brain cancer at 67 [...] in the last 7068 hours. Invalid input(s): [id number] Heme: No results for input(s): LDH, HAPTOGLOBIN, [...] (>100 pack years) presenting in transfer from [facility] with unstable angina. He is currently without chest pain and has successfully been weaned off nitroglycerine drip. Given presentation, risk factorsand recent positive stress test, we will proceed with cardiac catheterization. Details of plan as follows. PLAN: Admit to Cardiology, S1 Team Pager # [phone] # ACS - unstable angina - Medications [...] > 1. K+ protocol Code Status: FULL Herb. Sima Hearn MD Internal Medicine PGY-2 Cardiology [...] of ACS medical therapies. 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 Scanning Provider MEDIA MGR SCAN EXT O RDR/RSLT * POCT Glucose (03/21/2017 11:58 AM EST) Glucose, POC 104 65 - 199 mg/dL [facility] Comment: Supplemental ranges: <140 mg/dL before meals <180 mg/dL all other times of the day Blood specimen (specimen) 03/21/2017 11:58 AM EST 03/21/2017 11:58 AM EST Jose Olivares MD POINT OF CARE TEST O DEANN Performing Organization Address [facility] Co de Phone Number [facility] [place] [address] * POCT Glucose (03/21/2017 7:39 AM EST) Glucose, POC 127 65 - 199 mg/dL [facility] Comment: Supplemental ranges: <140 mg/dL before meals <180 mg/dL all other times of the day Blood specimen (specimen) 03/21/2017 7:39 AM EST 03/21/2017 7:39 AM EST Jose Olivares MD POINT OF CARE TEST O DEANN Performing Organization Address City/[facility] Co de Phone Number [facility] [place] [address] * Magnesium (03/21/2017 5:07 AM EST) Magnesium 0.89 0.69 - 1.07 mmol/L [facility] Blood specimen (specimen) Venous Draw / Unknown 03/21/2017 5:07 AM EST 03/21/2017 5:30 AM EST Narrative Resulting Agency Comment Spec In Lab Jim West MD CHEMISTRY ORDERA BLES [facility] [place] [address] * (ABNORMAL) Basic Metabolic Panel (non-fasting) (03/21/2017 5:07 AM EST) Glucose 121 65 - 199 mg/dL [facility] Comment:Diabetes: >=200 mg/d L plus symptoms Blood Urea Nitrogen 19 10 - 20 mg/dL [facility] Creatinine 1.31 0.80 - 1.50 mg/dL [facility] Sodium 139 135 - 145 mmol/L [facility] Potassium 4.0 3.5 - 5.0 mmol/L [facility] Comment: Please note: ??Patients with WBC >100,000 may have falsely elevated Potassium levels. ??For accurate Potassium quantification in these patients send serum separator tube (gold top) for subsequent determinations. ??Contact the Clinical Chemistry Laboratory if there are any questions. Chloride 103 98 - 107 mmol/L [facility] Carbon Dioxide 25 22 - 31 mmol/L [facility] Anion Gap 11 5 - 15 mmol/L [facility] Calcium 9.2 8.5 - 10.5 mg/dL [facility] Est Glomerular Filtration Rate 57(L) >=60 [facility] Comment: The reported eGFR should be multiplied by 1.2 for patients. The MDRD is not an appropriate measure of renal function for patients with body mass extremes or in patients with acute kidney failure. http://Reality Mobile.Internet Broadcasting/DHnkdep http://VisualXcript/DHMCnkf Blood specimen (specimen) 03/21/2017 5:07 AM EST 03/21/2017 5:29 AM EST Narrative Resulting Agency Comment Spec In Lab Jose Olivares MD CHEMISTRY ORDERABLES Performing Organization Address City/[facility]/[place] [address] * (ABNORMAL) Differential, Automated (03/21/2017 5:07 AM EST) Neutrophil % 57.4 % [facility] Neutrophil Absolute 4.37 1.70 - 6.10 x10(3)/mc L [facility] Lymph % 23.6 % [facility] Lymphocytes Abs 1.8 0.9 - 3.2 x10(3)/ L [facility] Monocyte % 13.2 % [facility] Monocyte Abs 1.0(H) 0.3 - 0.9 x10(3)/mc L [facility] Eos % 3.2 % [facility] Eosinophils Abs 0.2 0.0 - 0.4 x10(3)/ L [facility] Basophil % 1.2 % [facility] Baso Absolute 0.1 0.0 - 0.1 x10(3)/mc L [facility] Immature Gran % 1.40 % [facility] Comment: Immature granulocytes(IG's)percentage and absolute count will include metamyelocytes, myelocytes, and promyelocytes. Blood smears from CBCs yielding IG's will be scanned manually for concordance. If this scan disagrees with the automated IG or if promyelocytes are noted, a manual differential will be performed. Immature Gran Absolute 0.11(H) 0.00 - 0.04 x10(3)/mc L [facility] Blood specimen (specimen) 03/21/2017 5:07 AM EST 03/21/2017 5:28 AM EST Narrative Resulting Agency Comment Spec In Lab Noelle Hearn MD HEMATOLOGY ORDERABLE S Performing Organization Address City/[facility]/ZIP Co de Phone Number [facility] [place] [address] * Hemogram (03/21/2017 5:07 AM EST) Pathologist [facility] White Blood Cell 7.6 4.0 - 9.5 x10(3)/[facility] Red Blood Cell 4.83 4.58 - 5.54 x10(6)/[facility] Hemoglobin 14.6 13.7 - 16.5 gm/dL [facility] Hematocrit 43.1 40.5 - 48.5 % [facility] Mean Cell Volume 89.2 82.9 - 93.1 fL [facility] Mean Cell Hemoglobin 30.2 27.5 - 32.1 pg [facility] Mean Cell Hemoglobin Concentration 33.9 32.0 - 35.7 gm/dL [facility] Platelet 200 145 - 357 x10(3)/[facility] RDW Standard Deviation 42.4 36.0 - 45.0 [facility] RDW coefficient of variation 12.9 11.4 - 13.8 % [facility] Mean Platelet Volume 10.5 7.6 - 12.9 fL [facility] NRBC% auto 0.0 % [facility] NRBC Absolute 0.000 0.000 - 0.000 x10(3)/[facility] Blood specimen (specimen) 03/21/2017 5:07 AM EST 03/21/2017 5:28 AM EST Narrative Resulting Agency Comment Spec In Lab Noelle Hearn MD HEMATOLOGY ORDERABLE S [facility] [place] [address] * (ABNORMAL) Hemoglobin A1c (03/21/2017 5:07 AM EST) Pathologist [facility] Hemoglobin A1c 6.0(H) 4.3 - 5.6 % [facility] Comment: Reference Range: 4.3 [...] Mellitus, Diabetes Care 2013; 36: Suppl. 1, X27-56 Estimated Average Glucose 126 mg/dL [facility] Comment: eAG equivalents for [...] into estimated average glucose values. ??Diabetes Care 2008:31(8):8884-0607. Blood specimen (specimen) 03/21/2017 5:07 AM EST 03/21/2017 5:29 AM EST Narrative Resulting Agency Comment Spec In Lab Jose Olivares MD CHEMISTRY ORDERABLES [facility] [place] [address] * (ABNORMAL) Lipid Panel (03/21/2017 5:07 AM EST) Cholesterol, Total 129 <=239 mg/dL [facility] Triglyceride 330(H) <=199 mg/dL [facility] HDL Cholesterol 22(L) >=40 mg/dL [facility] LDL Cholesterol 41 <=190 mg/dL [facility] Cholesterol/HDL Ratio 5.9 ratio [facility] Lipid Interpretation See Note [facility] Comment: Lipid management should be guided by a patient? s ASCVD risk, goals and preferences. ACC/AHA Guidelines recommend high intensity statin if clinical ASCVD or LDL greater than or equal to 190 mg/dL. http://Reality Mobile.com/JEU-WGX-Kdhgremwe Adults aged 40-75 with LDL 70-189 mg/dL should have their 10 year ASCVD risk estimated with the ACC/AHA ASCVD risk commercial roofing estimator http://tools.acc.org/EWNUL-Vmta-Zqixpkvjl/ Statin should be discussed if risk greater [...] In Lab Jose Olivares MD CHEMISTRY ORDERABLES [facility] [place] [address] * POCT Glucose (03/20/2017 8:06 PM EST) Glucose, POC 125 65 - 199 mg/dL [facility] Comment: Supplemental ranges: <140 mg/dL before meals <180 mg/dL all other times of the day Blood specimen (specimen) 03/20/2017 8:06 PM EST 03/20/2017 8:06 PM EST Jose Olivares MD POINT OF CARE TEST O RDERABLES Performing Organization Address [facility]/State/ZIP Co de Phone Number [facility] [place] [address] * CARDIAC CATHETERIZATION (03/20/2017 5:15 PM EST) Anatomical Region Laterality Modality Other Narrative 03/20/2017 5:30 PM EST ?[facility] ? Cardiac Catheterization/Intervention Report ? Patient Name: , Mannie D. ? Procedure Date: 03/20/2017 ? A #: [id number] ? Primary Physician: Fantasma Rubalcava ? Case #: [id number] ? File Name: [id number] ? Catheterization Order Number: [id number] ? [facility] ? Final Report [place], [place] ? Patient Name: ? Mannie D. [place] ? ID#: ?[id number] ? : ?1965 ? Procedure Date: ? March 20, 2017 ? Case #: ? [id number] ? Room: ? 5 ? Case Physician: [...] presented with: unstable angina (w/i 60 days). [place] ?Cardiovascular Society angina class was III. This [...] Procedure Note Fantasma Rubalcava MD - 03/27/2017 [facility] Cardiac Catheterization/Intervention Report Patient Name: Mannie Padilla Procedure Date: 03/20/2017 A #: [id number] Primary Physician: Fantasma Rubalcava Case #: [id number] File Name: [id number] Catheterization Order Number: [id number] [facility] FinalReport [place], [place] Patient Name: Manine Padilla ID#:[id number] :1965 Procedure Date: March 20, 2017 Case [...] presented with: unstable angina (w/i 60 days). [place] Cardiovascular Society angina class was III. This [...] CONTRAST (03/20/2017 4:44 PM EST) EF 65 HEARTFookyZ SYSTEM Anatomical Region Laterality Modality Other 03/20/2017 Narrative 03/20/2017 4:57 PM EST Procedure: ?Transthoracic Echocardiogram Patient: ?MERCHANT CHAND D ?? (Age): 1965(51y) Med Rec#: ? [id number] ?Sex: ?M ? Site Loc: ? [facility] ?Ht / Wt: ??170(cm)/106(kg) Pt. Loc: ?Adult Floor ? BSA: ?2.16 Study Date: ?? 03/20/2017 ?Pt. Type: Inpatient Tape: ? Referring: MARION Reading: Micheal Kent ([id number]) Rubber Ball Finisher: Joselito Linares Diagnosis: *ICD-10-PCS Atherosclerotic heart disease of [place] coronary artery with unstable angina pectoris (I25.110) [...] E-wave Vmax ?0.8 ?m/sec ? MV deceleration wjrb068.1 ?msec ? MV A-wave Vmax ?1 ?m/sec [...] ? Mid-Inferior ?Normal ? Mid-Inferoseptal ?Normal ? [place]-Septal ? Normal ? [place]-Anterior ? Normal ? [place]-Lateral ?Normal ? [place]-Inferior ? Normal ? [place]-Tip ?Normal ? This report has been electronically signed by: Micheal Kent MD ? 03/20/2017 16:56:45 Images reviewed and interpretation verified [facility] Cardiac Ultrasound [facility] Procedure Note Micheal Kent MD - 03/20/2017 Procedure: Transthoracic Echocardiogram Patient: MERCHANT MANNIE Renteria DOB(Age): 1965(51y) Med Rec#: [id number] Sex: M Site Loc: [facility] Ht / Wt: 170(cm)/106(kg) Pt. Loc: Adult Floor BSA: 2.16 Study Date: 03/20/2017 Pt. Type: Inpatient Tape: Referring: MARION Reading: Micheal Kent ([id number]) Rubber Ball Finisher: Joselito Linares Diagnosis: *ICD-10-PCS Atherosclerotic heart disease of [place] coronary artery with unstable angina pectoris (I25.110) [...] MV E-wave Vmax 0.8 m/sec MV deceleration ofov759.1 msec MV A-wave Vmax 1 m/sec MV [...] Normal Mid-Posterolateral Normal Mid-Inferior Normal Mid-Inferoseptal Normal [place]-Septal Normal [place]-Anterior Normal [place]-Lateral Normal [place]-Inferior Normal [place]-Tip Normal This report has been electronically signed by: Micheal Kent MD 03/20/2017 16:56:45 Images reviewed and interpretation verified [facility] Jose Olivares MD ECHO ORDERABLES * EKG 12 Lead (03/20/2017 3:05 PM EST) Ventricular rate 62 BPM MUSE SYSTEM Atrial Rate 62 BPM MUSE SYSTEM P-R Interval 146 ms MUSE SYSTEM QRS Duration 84 ms MUSE SYSTEM Q-T Interval 420 ms MUSE SYSTEM QTC Calculated (Bezet) 426 ms MUSE SYSTEM Calculated P [place] 14 degrees MUSE SYSTEM Calculated R [place] 25 degrees MUSE SYSTEM Calculated T [place] 27 degrees MUSE SYSTEM INTERPRETATION Normal sinus rhythm Normal ECG No previous ECGs available Confirmed by Jose Olivares MD ([id number]) on 03/20/2017 5:30:25 PM MUSE SYSTEM 03/20/2017 3:05 PM EST 03/20/2017 5:30 PM EST Jose Olivares MD ECG ORDERABLES MUSE SYSTEM * (ABNORMAL) Differential, Automated (03/20/2017 2:54 PM EST) Neutrophil % 62.3 % [facility] Neutrophil Absolute 6.48(H) 1.70 - 6.10 x10(3)/mc L [facility] Lymph % 21.8 % [facility] Lymphocytes Abs 2.3 0.9 - 3.2 x10(3)/mc L [facility] Monocyte % 10.8 % [facility] Monocyte Abs 1.1(H) 0.3 - 0.9 x10(3)/ L [facility] Eos % 2.6 % [facility] Eosinophils Abs 0.3 0.0 - 0.4 x10(3)/[facility] Basophil % 1.1 % [facility] Baso Absolute 0.1 0.0 - 0.1 x10(3)/[facility] Immature Gran % 1.40 % [facility] Comment: Immature granulocytes(IG's)percentage and absolute count will include metamyelocytes, myelocytes, and promyelocytes. Blood smears from CBCs yielding IG's will be scanned manually for concordance. If this scan disagrees with the automated IG or if promyelocytes are noted, a manual differential will be performed. Immature Gran Absolute 0.15(H) 0.00 - 0.04 x10(3)/[facility] Blood specimen (specimen) 03/20/2017 2:54 PM EST 03/20/2017 3:00 PM EST Narrative Resulting Agency Comment Spec In Lab Noelle Hearn MD HEMATOLOGY ORDERABLE S [facility] [place] [address] * (ABNORMAL) Hemogram (03/20/2017 2:54 PM EST) White Blood Cell 10.4(H) 4.0 - 9.5 x10(3)/[facility] Red Blood Cell 4.79 4.58 - 5.54 x10(6)/[facility] Hemoglobin 14.5 13.7 - 16.5 gm/dL [facility] Hematocrit 41.9 40.5 - 48.5 % [facility] Mean Cell Volume 87.5 82.9 - 93.1 fL [facility] Mean Cell Hemoglobin 30.3 27.5 - 32.1 pg [facility] Mean Cell Hemoglobin Concentration 34.6 32.0 - 35.7 gm/dL [facility] Platelet 188 145 - 357 x10(3)/mc L [facility] RDW Standard Deviation 40.9 36.0 - 45.0 fL [facility] RDW coefficient of variation 12.9 11.4 - 13.8 % [facility] Mean Platelet Volume 10.5 7.6 - 12.9 fL [facility] NRBC% auto 0.0 % [facility] NRBC Absolute 0.000 0.000 - 0.000 x10(3)/mc L [facility] Blood specimen (specimen) 03/20/2017 2:54 PM EST 03/20/2017 3:00 PM EST Narrative Resulting Agency Comment Spec In Lab Noelle Hearn MD HEMATOLOGY ORDERABLE S [facility] [place] [id number] * Cardiac Enzymes (LEB/CGP) (03/20/2017 2:54 PM EST) Troponin-T <0.01 0.00 - 0.00 ng/mL [facility] Comment: The 99th percentile for Troponin T is less than 0.01 ng/mL, any detectable cTnT concentration using this assay should be considered elevated. According to the third universal definition of myocardial infarction the following criteria with a clinical presentation consistent with acute myocardial ischemia meets the diagnosis for a myocardial infarction (MT). Detection of a rise and/or fall of cTnT, with at least one value greater than the 99th percentile (> or = 0.01) and with at least one of the following ?? Symptoms of ischemia ?? New or presumed new significant QG-avmzkli-V wave (ST-T) changes or new left bundle [...] additional sample may be indicated. Reference: Third [place] Definition of Myocardial Infarction. Journal of the [place] College of Cardiology 2012;60:1581-98 Creatine Kinase 116 0 - 200 unit/L [facility] Blood specimen (specimen) 03/20/2017 2:54 PM EST 03/20/2017 3:00 PM EST Narrative Resulting Agency Comment Spec In Lab Jose Olivares MD CHEMISTRY ORDERABLES Performing Organization Address [facility] de Phone Number [facility] [place] [address] * Prothrombin Time (03/20/2017 2:54 PM EST) Prothrombin Time 13.1 11.8 - 14.0 sec [facility] International Normalization Ratio 1.0 0.9 - 1.1 [facility] Comment: An INR <2.0 [...] MD HEMATOLOGY ORDERABLE S Performing Organization Address [facility] Co de Phone Number [facility] [place] [address] * Hepatic Function Panel (03/20/2017 2:54 PM EST) Protein, Total 6.9 6.1 - 8.0 gm/dL [facility] Albumin 4.2 3.2 - 5.2 gm/dL [facility] Aspartate Aminotransferase 17 0 - 39 unit/L [facility] Alanine Aminotransferase 27 0 - 55 unit/L [facility] Alkaline Phosphatase 68 40 - 120 unit/L [facility] Bilirubin, Total 0.4 0.2 - 1.3 mg/dL [facility] Bilirubin, Direct 0.1 0.0 - 0.3 mg/dL [facility] Blood specimen (specimen) 03/20/2017 2:54 PM EST 03/20/2017 3:00 PM EST Narrative Resulting Agency Comment Spec In Lab Jose Olivares MD CHEMISTRY ORDERABLES Performing Organization Address [facility] Co de Phone Number [facility] [place] [address] * pro-Brain Natriuretic Peptide (03/20/2017 2:54 PM EST) NT-proBNP 14 <=125 pg/mL [facility] Blood specimen (specimen) 03/20/2017 2:54 PM EST 03/20/2017 3:00 PM EST Narrative Resulting Agency Comment Spec In Lab Jose Olivares MD CHEMISTRY ORDERABLES Performing Organization Address [facility] Co de Phone Number [facility] [place] [address] * TSH (03/20/2017 2:54 PM EST) Thyroid Stimulating Hormone 0.62 0.27 - 4.20 mlU/ML [facility] Blood specimen (specimen) 03/20/2017 2:54 PM EST 03/20/2017 3:00 PM EST Narrative Resulting Agency Comment Spec In Lab Jose Olivares MD CHEMISTRY ORDERABLES Performing Organization Address [facility] Co de Phone Number [facility] [place] [address] * Phosphorus (03/20/2017 2:54 PM EST) Phosphorus 3.3 2.5 - 4.5 mg/dL [facility] Blood specimen (specimen) 03/20/2017 2:54 PM EST 03/20/2017 3:00 PM EST Narrative Resulting Agency Comment Spec In Lab Jose Olivares MD CHEMISTRY ORDERABLES Performing Organization Address [facility] de Phone Number [facility] [place] [address] * Magnesium (03/20/2017 2:54 PM EST) Magnesium 0.85 0.69 - 1.07 mmol/L [facility] Blood specimen (specimen) 03/20/2017 2:54 PM EST 03/20/2017 3:00 PM EST Narrative Resulting Agency Comment Spec In Lab Jose Olivares MD CHEMISTRY ORDERABLES Performing Organization Address [facility] de Phone Number [facility] [place] [address] * Basic Metabolic Panel (non-fasting) (03/20/2017 2:54 PM EST) Glucose 90 65 - 199 mg/dL [facility] Comment:Diabetes: >=200 mg/d L plus symptoms Blood Urea Nitrogen 19 10 - 20 mg/dL [facility] Creatinine 1.22 0.80 - 1.50 mg/dL [facility] Sodium 140 135 - 145 mmol/L [facility] Potassium 3.8 3.5 - 5.0 mmol/L [facility] Comment: Please note: ??Patients with WBC >100,000 may have falsely elevated Potassium levels. ??For accurate Potassium quantification in these patients send serum separator tube (gold top) for subsequent determinations. ??Contact the Clinical Chemistry Laboratory if there are any questions. Chloride 103 98 - 107 mmol/L [facility] Carbon Dioxide 22 22 - 31 mmol/L [facility] Anion Gap 15 5 - 15 mmol/L [facility] Calcium 9.1 8.5 - 10.5 mg/dL [facility] Est Glomerular Filtration Rate >60 >=60 [facility] Comment: The reported eGFR should be multiplied by 1.2 for patients. The MDRD is not an appropriate measure of renal function for patients with body mass extremes or in patients with acute kidney failure. http://VisualXcript/DHnkdep http://VisualXcript/MCnkf Blood specimen (specimen) 03/20/2017 2:54 PM EST 03/20/2017 3:00 PM EST Narrative Resulting Agency Comment Spec In Lab Jose Olivares MD CHEMISTRY ORDERABLES Performing Organization Address [facility] de Phone Number [facility] [place] [address] * (ABNORMAL) APTT (03/20/2017 2:54 PM EST) [facility] Signature Partial Thromboplastin Time 43(H) 25 - 35 sec [facility] Comment: The recommended therapeutic range for full dose, unfractionated heparin at [facility] is 80 ? 114 seconds. The use of the anti-Xa (heparin) level rather than the PTT is recommended for monitoring anticoagulation intensity in critically ill patients receiving unfractionated heparin by continuous IV infusion. Blood specimen (specimen) 03/20/2017 2:54 PM EST 03/20/2017 3:00 PM EST Narrative Resulting Agency Comment Spec In Lab Jose Olivares MD HEMATOLOGY ORDERABLE S Performing Organization Address [facility] Co de Phone Number [facility] [place] [address] * SCAN DOC: CARDIAC CATH (03/20/2017 12:00 AM EST) Anatomical Region Laterality Modality Cardiac Other Narrative 03/20/2017 12:00 AM EST Ordered by an unspecified provider. Scanning Provider MEDIA MGR SCAN EXT O RDR/RSLT documented in this encounter Visit Diagnoses Diagnosis Atherosclerosis of [place] coronary artery of [place] heart with unstable angina pectoris Unstable angina [...] 1336, Until Thu03/20/17 at 1443, ANTOINETTE TERAN: ayde override heparin 25,000 units in dextrose 5% [...] dose on 03/21/17 at 0900, Until Discontinued Given 03/21/2017 8:57 [...] specifically told to do so., Routine 1616 ([facility] Hold - Provider: Admin Adt - Reason: Transfer to a Procedural area)1630 (Automatically Held - Provider: Admin Adt)1736 ([facility] Unhold - Provider: Admin Adt) 0730 (Not [...] - Reason: Transfer to a Procedural area)1736 ([facility] Unhold - Provider: Admin Adt) 0856 (Given - Provider: Effie Young RN) nicotine (NICODERM CQ) 21 mg/24 hr patch 21 mg(Linked Group 2) 21 mg, Transdermal, DAILY, First dose on Thu03/20/17 at 1500, Until Discontinued, Routine 1519 (Patch Applied - Provider: Effie Young RN)1616 ([facility] Hold - Provider: Admin Adt - Reason: Transfer to a Procedural area)1736 ([facility] Unhold - Provider: Admin Adt) 0857 (Patch Applied - Provider: Effie Young RN) nicotine (NICODERM CQ) 21 mg/24 hr patch Patch Removal(Linked Group 2) Transdermal, DAILY, First dose on 03/21/17 at 0900, Until Discontinued, Remove nicotine 21 mg/24 hr patch 1616 ([facility] Hold - Provider: Admin Adt - Reason: Transfer to a Procedural area)1736 ([facility] Unhold - Provider: Admin Adt) 0900 (Patch Removed - Provider: Effie Young RN) nicotine (NICODERM CQ) 21 mg/24 hr patch Patch Verification(Linked Group 2) Transdermal, 2 TIMES DAILY, First dose on 03/21/17 at 0900, Until Discontinued, Verify nicotine 21 mg/24 hr patch 1616 ([facility] Hold - Provider: Admin Adt - Reason: Transfer to a Procedural area)1736 ([facility] Unhold - Provider: Admin Adt) 0900 (Patch (dose and location) verified - Provider: Effie Young RN) pantoprazole (PROTONIX) tablet 40 mg 40 mg, Oral, DAILY, First dose on 03/21/17 at 0900, Until Discontinued 1616 ([facility] Hold - Provider: Admin Adt - Reason: Transfer to a Procedural area)1736 ([facility] Unhold - Provider: Admin Adt) 0857 (Given - Provider: Effie Young RN) PARoxetine (PAXIL) tablet 20 mg 20 mg, Oral, NIGHTLY, First dose on 03/21/17 at 2100, Until Discontinued, Routine 1616 ([facility] Hold - Provider: Admin Adt - Reason: Transfer to a Procedural area)1736 ([facility] Unhold - Provider: Admin Adt) sodium chloride 0.9 % flush 5 mL 5 mL, Intravenous, 2 TIMES DAILY, First dose on Thu03/20/17 at 2100, Until Discontinued, Routine 1616 ([facility] Hold - Provider: Admin Adt - Reason: Transfer to a Procedural area)1736 ([facility] Unhold - Provider: Admin Adt)2100 [...] (New Bag - Provider: Effie Young RN)1616 ([facility] Hold - Provider: Admin Adt - Reason: Transfer to a Procedural area)1715 ([facility] Unhold - Provider: Admin Adt) [...] all sources in 24 hours., Routine 1616 ([facility] Hold - Provider: Admin Adt - Reason: Transfer to a Procedural area)173 ([facility] Unhold - Provider: Admin Adt) [...] duration of the active insulin., Routine 161 ([facility] Hold - Provider: Admin Adt - Reason: Transfer to a Procedural area)1736 ([facility] Unhold - Provider: Admin Adt) docusate sodium (COLACE) capsule 100 mg 100 mg, Oral, DAILY PRN, Starting on Thu03/20/17 at 1443, Until 03/21/17 at 1528, Constipation, Routine 1616 ([facility] Hold - Provider: Admin Adt - Reason: Transfer to a Procedural area)1736 ([facility] Unhold - Provider: Admin Adt) fentaNYL 50 mcg/mL multi-dose injection (CANCELED) ONCE PRN, Starting on Thu03/20/17 at 1634, Until Thu03/20/17 at 1715, Intra-Operative (Intra-Procedure), Routine 1634 (Given - Provider: Brenda Angelo RN)1642 (Given - Provider: Brenda Angelo RN) glucagon (human recombinant) injection SolR 1 [...] for discomfort with PIV insertion, Routine 161 ([facility] Hold - Provider: Admin Adt - Reason: Transfer to a Procedural area)173 ([facility] Unhold - Provider: Admin Adt) midazolam (PF) (VERSED) 1 mg/mL multi-dose injection (CANCELED) ONCE PRN, Starting on Thu03/20/17 at 1634, Until 03/20/17 at 1715, Cath (Intra-Procedure), Routine 1634 (Given - Provider: Brenda Angelo RN)164 (Given - Provider: Madeleine Love RN) nicotine polacrilex (COMMIT) lozenge 2 mg 2 mg, Buccal, EVERY 1 HOUR PRN, Starting on 03/20/17 at 1443, Until 03/21/17 at 1528, Smoking cessation, Maximum 20 Lozenges per day. If multiple PRN medications for smoking cessation, may give gum concomitant with lozenge., Routine 161 ([facility] Hold - Provider: Admin Adt - Reason: Transfer to a Procedural area)1736 ([facility] Unhold - Provider: Admin Adt) nitroGLYcerin (NITROSTAT) SL tablet 0.4 mg 0.4 mg, Sublingual, EVERY 5 MIN PRN, Starting on 03/20/17 at 1443, Until 03/21/17 at 1528, Chest pain, May repeat every 5 minutes for a total of three doses. Notify provider if chest pain not relieved with nitroglycerin. Do not administer nitroglycerin if the patinet has received or taken phosphodiesterase (PDE-5) inhibitors such as sildenafil, tadalafil or vardenafil within the last 24 to 72 hours., Routine 161 ([facility] Hold - Provider: Admin Adt - Reason: Transfer to a Procedural area)1736 ([facility] Unhold - Provider: Admin Adt) nitroGLYcerin 100 mcg/mL intracoronary dilution (CANCELED) ONCE PRN, Starting on Thu03/20/17 at 1645, Until Thu03/20/17 at 1715, Cath (Intra-Procedure), Routine 164 (Given - Provider: Ezio Abarca MD) perflutren [...] Thu03/20/17 at 1443, Until Thu03/21/17 at 1528, flush, Flush pertains to all indwelling lines. Flush per protocol found in the job aid using the link provided on this medication record., Routine 1616 ([facility] Hold - Provider: Admin Adt - Reason: Transfer to a Procedural area)1736 ([facility] Unhold - Provider: Admin Adt) verapamil [...] Routine documented in this encounter Care Teams Propagation Manager Relationship Specialty Start Date End Date Garth Berg MD [address] [place] [address] PCP - General General Internal Medicine 03/02/17 documented as of this encounter
--- OUTSIDE RECORDS SUMMARY | 2023-10-02 12:34 | XMS_ITS | Encounter Summary ---
Author Organization [facility] [place] [address] Care Team Providers Care Web Development Consultant Name Role Phone Judd Scott MD Primary Care Provider [phone] Encounter Details Date Type Department Care Team (Late st Contact Info) Description 03/17/2014 Orders [place] [address] Yuri Lao MD [facility] [address] [place] [address] Bilateral foot pain (Primary Dx) Social History [...] limb documented in this encounter Care Teams Web Development Consultant Relationship Specialty Start Date End Date Judd Scott MD PCP - General 01/08/10 03/01/17 documented as of this encounter
--- OUTSIDE RECORDS SUMMARY | 2023-10-02 12:34 | XMS_ITS | Encounter Summary ---
Author Organization [facility] Address [facility] [address] Care Team Providers Care Automatic Spinning Lathe Operator Name Role Phone Judd Scott MD Primary Care Provider [phone] Encounter Details Date Type Department Care Team (Latest Contact Info) Description 02/05/2017 - 02/05/2017 11:59 PM EST Hospital Encounter [place] [address] Jose Olivares MD [facility] [place] [address] Discharge Disposition: Home Social History Tobacco Use [...] DX Chest (02/05/2017 12:00 AM EST) Narrative [facility] - 03/20/2017 12:49 PM EST This exam is for storage only and is auto-finalizing. Jose Olivares MD IMG FILM LIBRARY ORD ERABLES [place], [place] documented in this encounter Visit Diagnoses Not on filedocumented in this encounter Care Teams Automatic Spinning Lathe Operator Relationship Specialty Start Date End Date Judd Scott MD PCP - General 01/08/10 03/01/17 documented as of this encounter
--- OUTSIDE RECORDS SUMMARY | 2023-10-02 12:34 | XMS_ITS | Encounter Summary ---
[place] [address] Care Team Providers Care Textiles Sales Representative Name Role Phone Garth Berg MD Primary Care Provider [phone] Encounter Details Date Type Department Care Team (Late st Contact Info) Description 03/20/2017 [place] [id number] Social History Tobacco Use Types Packs/Day Years [...] on filedocumented in this encounter Care Teams Textiles Sales Representative Relationship Specialty Start Date End Date Garth Berg MD [address] [place] [address] PCP - General General Internal Medicine 03/02/17 documented as of this encounter
--- OUTSIDE RECORDS SUMMARY | 2023-10-02 12:34 | XMS_ITS | Encounter Summary ---
[place] [address] Care Team Providers Care Automatic Drilling Machine Operator Name Role Phone Judd Scott MD Primary Care Provider [phone] Reason for Visit * Reason Onset Date Comments Referral 01/23/2014 Encounter Details Date Type Department Care Team (Late st Contact Info) Description 01/23/2014 Telephone [place] [id number] Svetlana Frey Referral Social History Tobacco Use [...] Name: Pavanthuy Padilla : 1965 Phone number: [phone] (home) Mailing address: [address] [facility] [address] Age: 48 y.o. Appointment date: 2ND OPINION [...] When? Where? Notes: [address] SCHERER PH:[phone] [place], [place] PH: [phone] FAX: [phone] [facility] FOURDRINIER OPEN SHANK COVERER MRI: No CT Scan: No Physical therapy: No Injection: No Other diagnostic studies: No Other therapies: No Other specialist(s): No If 2nd (+) opinion get info on previous: Yes - What? When? Where? Who? Notes: [facility] [address] SCHERER PH:[phone] DR. SCHERER Have you had any surgeries for this issue? No Did surgery include placement of implant/hardware or fixation of any kind? No Do you use any type of orthotics? No Additional injuries: Advanced Directive Do you have an Advanced Directive on file: No - Please bring a copy to your next appointment. Advance Directive aircraft pilot: N/A MyDH Do you have a MyD account? No - Patient Declined documented in this encounter Plan of Treatment Not on file documented as of this encounter Visit Diagnoses Not on filedocumented in this encounter Care Teams Automatic Drilling Machine Operator Relationship Specialty Start Date End Date Judd Scott MD PCP - General 01/08/10 03/01/17 documented as of this encounter
[2023-10-02 12:38] LABS: Bilirubin Negative (Negative); Blood Small (Negative); Clarity Clear (Clear); Glucose 500 mg/dL (Negative); Ketones Negative (Negative); Leukocyte Esterase Negative (Negative); Nitrite Negative (Negative); Urobilinogen 0.2 mg/dL (Up to 0.2); pH 5.5 (5-8)
[2023-10-02 12:38] LABS: BE (Venous) -7 mmol/L (-2-3); HCO3 (Venous) 20 mmol/L (23-28); O2 Sat (Venous) 69 %; TCO2 (Venous) 21 mmol/L (24-29); pCO2 (Venous) 39 mmHg (41-51); pH (Venous) 7.31 (7.31-7.41); pO2 (Venous) 39 mmHg
[2023-10-02 13:01] LABS: Bacteria Negative HPF (Negative); C & S Indicated? No; Casts Negative LPF (Negative); Crystals Negative HPF (Negative); Epithelial Cells Negative HPF (Negative); Mucus Negative (Negative); Other Cells Negative (Negative); WBC 0-2 HPF (0-5)
[2023-10-02 13:02] LABS: ALT 27 U/L (16-63); AST 13 U/L (15-37); Albumin 3.6 g/dL (3.4-5.0); Alkaline Phosphatase 161 U/L (46-116); Anion Gap 10.8 mmol/L (3-11); BUN 19 mg/dL (7-18); Bilirubin, Total 0.36 mg/dL (0.2-1.0); CO2 22.2 mmol/L (21.0-32.0); CREATININE 1.5 mg/dL (0.70-1.30); Calcium 9.1 mg/dL (8.5-10.1); Chloride 96 mmol/L (98-107); Estimated GFR 52.97 (mL/min/1.73m2); Hemoglobin A1C 10.6 % (<5.7); Magnesium 1.9 mg/dL (1.8-2.4); Potassium 4.7 mmol/L (3.5-5.1); Sodium 129 mmol/L (136-145); Total Protein 7.4 g/dL (6.4-8.2)
[2023-10-02 13:05] LABS: Glucose 541 mg/dL (74-106)
[2023-10-02] MEDS: Insulin Glargine 100 UNITS/ML UNIT 15 UNITS SC (13:50)
[2023-10-02] MEDS: metFORMIN 500 MG TAB PO (13:50)
[2023-10-02 14:33] VITALS: BP 154/52; PULSE 84; RESP 15; TEMP 36.5; O2SAT 96
[2023-10-02 14:37] VITALS: BP 154/52; PULSE 84; RESP 15; TEMP 36.5; O2SAT 96
== END 2023-10-02 14:56 | disposition home or self-care (01) ==
PROVIDERS: Emergency Provider Physician Assistant; PCP Student in an Organized Health Care Education/Training Program
DX: E11.65 Type 2 diabetes mellitus with hyperglycemia (principal); R31.9 Hematuria, unspecified; E86.0 Dehydration; R79.89 Other specified abnormal findings of blood chemistry; L98.9 Disorder of the skin and subcutaneous tissue, unspecified; I12.9 Hypertensive chronic kidney disease with stage 1 through stage 4 chronic kidney disease, or unspecified chronic kidney disease; E11.22 Type 2 diabetes mellitus with diabetic chronic kidney disease; N18.9 Chronic kidney disease, unspecified; Z79.4 Long term (current) use of insulin; Z79.899 Other long term (current) drug therapy; F17.210 Nicotine dependence, cigarettes, uncomplicated; R32 Unspecified urinary incontinence; K21.9 Gastro-esophageal reflux disease without esophagitis; G47.33 Obstructive sleep apnea (adult) (pediatric); E78.1 Pure hyperglyceridemia; J32.9 Chronic sinusitis, unspecified
CPT/HCPCS: 80053; 82805; 82962; 99284; 81003; 81015; 83036; 83735; 85025; J1815

== ENCOUNTER 2023-10-08 10:45 | Outpatient (REF) | payer MEDICARE, MEDICAID, SELFPAY ==
--- OUTSIDE RECORDS SUMMARY | 2023-10-08 10:47 | XMS_ITS | Clinical Summary ---
Author Organization [facility] Address [address] [place] [address] Care Team Providers Care Blending Tank Helper Name Role Phone Garth Marroquin DO Primary Care Provider [phone] Allergies Active Allergy Reactions Criticality Noted Date [...] History Medical History Date Comments Diabetes mellitus ([facility]) Hypertension Smoking greater than 40 pack years [...] - 1-dose 60+ series) 2023 Care Teams Blending Tank Helper Relationship Specialty Start Date End Date Garth Marroquin DO [address] [place] [phone] PCP - General 10/30/17
--- OUTSIDE RECORDS SUMMARY | 2023-10-08 10:47 | XMS_ITS | Referral Summary ---
Author Organization [facility] Address [address] [place] [address] Care Team Providers Care Poultry Dressing Worker Name Role Phone Garth Marroquin DO Primary Care Provider Allergies Active Allergy Reactions Criticality Noted Date [...] of Treatment Not on file Care Teams Poultry Dressing Worker Relationship Specialty Start Date End Date Garth Marroquin DO [address] [place] [phone] PCP - General 9/14/18
--- OUTSIDE RECORDS SUMMARY | 2023-10-08 10:48 | XMS_ITS | Encounter Summary ---
Author Organization [facility] Address [address] [place] [address] Care Team Providers Care Steel Construction Worker Name Role Phone Unavailable Primary Care Provider Unavailabl e Encounter Details Date Type Department Care Team (Late st Contact Info) Description 09/26/2014 Results Only [facility] [phone] Umang Rayo MD [address] [facility] [address] [place] [address] Social History Tobacco Use Types [...] ? MANNIE RODRIGUEZ ? Accession #: ? [id number] ? : ? 1965 (Age: 49) ??M [...] Valdez 09/27/2014 11:29 AM End of Report [facility] 09/26/2014 9:03 EDT 09/27/2014 9:03 EDT Umang Rayo MD PATHOLOGY ORDERABLES Performing Organization Address City/State/[facility] Co de Phone Number [facility] [address] [place] [address] documented in this encounter Visit Diagnoses Not on filedocumented in this encounter
--- OUTSIDE RECORDS SUMMARY | 2023-10-08 10:48 | XMS_ITS | Encounter Summary ---
Author Organization [facility] Address [address] [place] [address] Care Team Providers Care Lumber Inspector Name Role Phone Garth Marroquin DO Primary Care Provider [phone] Reason for Referral * Radiology Services (Routine) - Authorization Not Required Specialty Diagnoses / Procedures Referred By Contac t Referred To Contact Diagnoses Lung nodule Procedures CT CHEST W CONTRAST Troy Ray MD [address] [place] [phone] Referral ID Status Reason Start Date Expiration Date Visits Requested Visits Authorized [id number] Authorization Not Required 11/02/2017 1 1 Reason for Visit * Reason Comments New Patient Visit * Consult (Routine) - Closed Specialty Diagnoses / Procedures Referred By Contyashira grossman Referred To Contact Diagnoses Pulmonary nodule Garth Marroquin DO [address] [place] [phone] Referral ID Status Reason Start Date Expiration Date Visits Re quested Visits Authorized [id number] Closed 1 1 Encounter Details Date Type Department Care Team (Late st Contact Info) Description 11/02/2017 10:00 EDT Office Visit [facility] Pulmonology & Critical Care - [address] [phone] Troy Ray MD [address] [place] [phone] Lung nodule (Primary Dx) Discharge Disposition: Auto [...] nicotine overdose. Counseling available to assist you [place] [employer] You have chosen the [place] [employer]'s Quit by Phone program. Once you have [...] describedunder Medications to Help You Succeed. Call 0-561-CTKG-NOW ( ) or contact them via the [place] [employer] website at www.[employer].org. I hope you quit smoking. I think it's the best thing you can do for your health. Please call our office if you have any questions. 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 He is [...] Date ??? Diabetes mellitus ([facility]) ??? Hypertension ??? Obstructive sleep apnea [...] associated adenopathy. This can be done in [facility]. Following this, he may need a percutaneous biopsy or PET scan. 2. Active smoking. He is currently smoking 2 packs per day. We had a long discussion today about the risks of smoking particularly while we are evaluating potentially treating a lung cancer. Even if this does not turntable operator to be cancer, smoking cessation is strongly encouraged. We discussed using patches plus the nicotine inhaler. RECOMMENDATIONS 1. CT scan of the chest to be requested from [facility]. I instructed the patient to call [...] of these investigations. Please call me at [phone] if any further questions arise. Troy Ray MD Pulmonary and Critical Care Medicine [facility] Other Orders Placed This Visit Procedures [...] daily. added in this encounter Care Teams Lumber Inspector Relationship Specialty Start Date End Date Garth Marroquin DO [address] [facility] [place] [phone] PCP - General 10/30/17 documented as of this encounter
--- OUTSIDE RECORDS SUMMARY | 2023-10-08 10:48 | XMS_ITS | Encounter Summary ---
Author Organization [facility] Address [address] [place] [address] Care Team Providers Care Hop Trainer Name Role Phone Garth Marroquin DO Primary Care Provider [phone] Encounter Details Date Type Department Care Team (Latest Contact Info) Description 05/14/2018 8:47 EDT - 05/14/2018 23:59 EDT Hospital Encounter [address] [address] Unknown, Provider, Discharge Disposition: Home or Self [...] Code Departure Means Destination Home or Self [facility] documented in this encounter Plan of Treatment Not on file documented as of this encounter Visit Diagnoses Not on filedocumented in this encounter Care Teams Hop Trainer Relationship Specialty Start Date End Date Garth Marroquin DO [address] [place] [address] PCP - General 10/30/17 documented as of this encounter
--- OUTSIDE RECORDS SUMMARY | 2023-10-08 10:48 | XMS_ITS | Encounter Summary ---
Author Organization [facility] Address [address] [place] [address] Care Team Providers Care Press Operator Heavy Duty Name Role Phone Garth Marroquin DO Primary Care Provider [phone] Encounter Details Date Type Department Care Team (Late st Contact Info) Description 04/17/2021 Lab Requisition [facility] Pathology & Laboratory Medicine - [facility] [address] [place], [place] [address] Outr Resulting Lab, Provider Social History Tobacco [...] 3.59 See Note mg/L 04/17/2021 21:50 EST [facility] Comment: Reference Range: ??Low Risk: ? <1.0 mg/L ??Average Risk: ?? 1.0 - 3.0 mg/L ??High Risk: ?>3.0 mg/L ??Indeterminate*: >10.0 mg/L ??*May be an indication of another source of inflammation or infection Blood VENOUS BLOOD / Unknown 04/17/2021 10:45 EST 04/17/2021 21:30 EST Provider Outr Resulting Lab CHEMISTRY & BLOOD GAS ORDERABLES Performing Organization Address City/State/[facility] Co de Phone Number [facility] [address] [place] [address] documented in this encounter Visit Diagnoses Not on filedocumented in this encounter Care Teams Press Operator Heavy Duty Relationship Specialty Start Date End Date Garth Marroquin DO [address] [facility] [place] [address] PCP - General 10/30/17 documented as of this encounter
--- OUTSIDE RECORDS SUMMARY | 2023-10-08 10:48 | XMS_ITS | Encounter Summary ---
Author Organization [facility] Address [facility] [place] [address] Care Team Providers Care Scalemaker Name Role Phone Judd Pizarro MD Primary Care Provider [phone] Encounter Details Date Type Department Care Team (Late st Contact Info) Description 09/19/2021 Orders Only Weight and Wellness at [facility] [address] [place] [phone] Tessie Robles MD [facility] [address] [place] [address] Obesity, unspecified classification, unspecified obesity type, unspecified [...] * Biorepository Request (02/20/2022 5:47 PM EST) [facility] Biorepository Hold Sample in lab [facility] Blood 02/20/2022 5:47 PM EST 02/21/2022 11:01 AM EST Narrative Resulting Agency Comment Spec In Lab Tessie Robles [place] [address] documented in this encounter Visit Diagnoses Diagnosis Obesity, unspecified classification, unspecified obesity type, unspecified whether serious comorbidity present documented in this encounter Care Teams Scalemaker Relationship Specialty Start Date End Date Judd Pizarro MD [address] [place] [address] PCP - General Family Medicine 06/20/21 documented as of this encounter
--- OUTSIDE RECORDS SUMMARY | 2023-10-08 10:48 | XMS_ITS | Encounter Summary ---
Author Organization [facility] Address [facility] [place] [address] Care Team Providers Care Horseradish Grinder Name Role Phone Judd Pizarro MD Primary Care Provider [phone] Reason for Visit * Reason Comments Follow-up Weight managment Encounter Details Date Type Department Care Team ([facility] st Contact Info) Description 06/20/2021 9:15 AM EDT Office Visit Weight and Wellness at [address] [phone] Tessie Robles MD [facility] [address] [place] [address] Class 1 obesity due to excess calories [...] 06/20/2021 9:[address] Fournier - [facility]. I will try to get [...] seen while via [] Video [] phone [facility] [place] Patient Name: Pavan Padilla Date of : [...] withneuropathy, Osteoarthritis. This is a Visit #4 [facility] visit for this 55 y.o. patient. Weight gain due to: less activity, weight gaining medications, increased intake and frequent snacking on UHPF Barriers: adentulous Initial visit: 09/27/20 Initial weight: 231# Initial BMI: 38.17 kg/m??. Goal weight: 165 10% loss: 210# Other goals: Improve diabetes Today's weight: 217 Change since prior: -2.75# [facility] Team: Tessie Robles MD, Nolvia Saleh RD and Aguilar Lagunas, Health Cover Operator - all pending HPI HYPOTENSION - [...] behavioral interventions, see goals Referrals: Dietitian, Health Cover Operator, AOM: Increase semaglutide for DM and [...] present documented in this encounter Care Teams Horseradish Grinder Relationship Specialty Start Date End Date Judd Pizarro MD [address] [place] [phone] PCP - General Family Medicine 06/20/21 documented as of this encounter
--- OUTSIDE RECORDS SUMMARY | 2023-10-08 10:48 | XMS_ITS | Encounter Summary ---
Author Organization [facility] [place] [address] [place] [address] Care Team Providers Care Senior Process Analyst Name Role Phone Garth Marroquin DO Primary Care Provider [phone] Encounter Details Date Type Department Care Team (Late st Contact Info) Description 05/07/2021 Telephone Sleep Center at [facility] [address] [place] [phone] Emilie Galvan, RN Social History Tobacco Use [...] on filedocumented in this encounter Care Teams Senior Process Analyst Relationship Specialty Start Date End Date Garth Marroquin DO [address] [place] [address] PCP - General Family Medicine 03/02/20 06/19/21 documented as of this encounter
--- OUTSIDE RECORDS SUMMARY | 2023-10-08 10:48 | XMS_ITS | Encounter Summary ---
Author Organization [facility] Address [address] [place] [address] Care Team Providers Care Hemodialysis Patient Care Specialist Name Role Phone Garth Marroquin DO Primary Care Provider [phone] Encounter Details Date Type Department Care Team (Late st Contact Info) Description 11/06/2017 Results Only Imaging [facility] [phone] Unknown, Provider, Social History Tobacco Use Types [...] on filedocumented in this encounter Care Teams Hemodialysis Patient Care Specialist Relationship Specialty Start Date End Date Garth Marroquin DO [address] [place] [address] PCP - General 10/30/17 documented as of this encounter
--- OUTSIDE RECORDS SUMMARY | 2023-10-08 10:48 | XMS_ITS | Encounter Summary ---
Author Organization [facility] Address [address] [facility] [place] [address] Care Team Providers Care Piping Manager Name Role Phone Judd Pizarro MD Primary Care Provider [phone] Encounter Details Date Type Department Care Team [...] on filedocumented in this encounter Care Teams Piping Manager Relationship Specialty Start Date End Date Judd Pizarro MD [facility] [place] [address] PCP - General Family Medicine 06/20/21 documented as of this encounter
--- OUTSIDE RECORDS SUMMARY | 2023-10-08 10:48 | XMS_ITS | Encounter Summary ---
Author Organization [facility] [place] [address] Care Team Providers Care Office Bookkeeper Name Role Phone Judd Pizarro MD Primary Care Provider [phone] Reason for Visit * Reason Onset Date Comments Appointment 05/20/2021 Encounter Details Date Type Department Care Team (Late st Contact Info) Description 05/20/2021 Telephone Weight and Wellness at [facility] [address] [place] [address] Daria Huynh Appointment Social History [...] on filedocumented in this encounter Care Teams Office Bookkeeper Relationship Specialty Start Date End Date Judd Pizarro MD [facility] [place] [address] PCP - General Family Medicine 06/20/21 documented as of this encounter
--- OUTSIDE RECORDS SUMMARY | 2023-10-08 10:48 | XMS_ITS | Encounter Summary ---
Author Organization [facility] Address [address] [place] [address] Care Team Providers Care Hull Outfit Supervisor Name Role Phone Garth Marroquin DO Primary Care Provider [phone] Reason for Visit * Reason Onset Date Comments Patient Information Update 11/06/2017 Results 11/09/2017 Returning Call 11/09/2017 Encounter Details Date Type Department Care Team (Late st Contact Info) Description 11/06/2017 Telephone [facility] Pulmonology & Critical Care - [facility] [address] [place] [address] Troy Ray MD [address] [place] [address], [address] [place] [address] Patient Information Update; Results; Returning [...] Howard RN - 11/06/2017 1324 EDT Called [facility] and requested that results/images be pushed [...] on filedocumented in this encounter Care Teams Hull Outfit Supervisor Relationship Specialty Start Date End Date Garth Marroquin DO [address] [facility] [address] PCP - General 10/30/17 documented as of this encounter
--- OUTSIDE RECORDS SUMMARY | 2023-10-08 10:48 | XMS_ITS | Encounter Summary ---
Author Organization [facility] Address [address] [place] [address] Care Team Providers Care Guest Services Lead Name Role Phone Garth Marroquin DO Primary Care Provider [phone] Encounter Details Date Type Department Care Team (Late st Contact Info) Description 11/09/2017 Orders Only [facility] Pulmonology & Critical Care - [address] [address] Troy Ray MD [address] [facility], [address] [place] [id number] Lung nodule (Primary Dx) Social History Tobacco [...] nodule documented in this encounter Care Teams Guest Services Lead Relationship Specialty Start Date End Date Garth Marroquin DO [address] [place] [address] PCP - General 10/30/17 documented as of this encounter
--- OUTSIDE RECORDS SUMMARY | 2023-10-08 10:48 | XMS_ITS | Encounter Summary ---
Author Organization [facility] Address [facility] [place] [address] Care Team Providers Care Junior Network Administrator Name Role Phone Judd Pizarro MD Primary Care Provider [phone] Reason for Visit * Reason Comments Follow-up Weight management Encounter Details Date Type Department Care Team ([facility] st Contact Info) Description 02/20/2022 4:30 PM EST Office Visit Weight and Wellness at [address] [address] Tessie Robles MD [facility] [address] [facility] [address] Class 2 obesity with body mass index [...] Robles MD - 02/20/2022 4:30 PM EST [facility] [place] Patient Name: Pavan Padilla Date of : [...] withneuropathy, Osteoarthritis. This is a Visit #4 [facility] visit for this 56 y.o. patient. Weight gain due to: less activity, weight gaining medications, increased intake and [facility] Barriers: adentulous Initial visit: 09/27/20 Initial weight: 231# Initial BMI: 38.17 kg/m??. Goal weight: 165 10% loss: 210# Other goals: Improve diabetes Today's weight: 233 Change since prior: + 16# [facility] Team: Tessie Robles MD, Nolvia Saleh RD and Aguilar Lagunas, Health Assistant Customer Service Manager - all pending HPI Patient here today [...] 141 09/27/2020 Lab Results Component Value Date [id number] 09/27/2020 25-OH Vit D Total (ng/mL) [...] PM EST) LDL Cholesterol, Direct 52 mg/dL [facility] Comment: Lowest Risk: <100 mg/dL Lower Risk: 100-129 mg/dL Borderline High Risk: 130-159 mg/dL High Risk: 160-189 mg/dL Very High Risk: >vi=466 mg/dL Blood 02/20/2022 5:47 PM EST 02/20/2022 6:00 PM EST Narrative Resulting Agency Comment Spec In Lab Tessie Robles [place] [address] * (ABNORMAL) Differential, Automated (02/20/2022 5:47 PM EST) Neutrophil % 52.2 % [facility] Neutrophil Absolute 5.61 1.70 - 6.10 x10(3)/mc L [facility] Lymph % 33.6 % [facility] Lymphocytes Abs 3.6(H) 0.9 - 3.2 x10(3)/mc L [facility] Monocyte % 8.4 % [facility] Monocyte Abs 0.9 0.3 - 0.9 x10(3)/ L [facility] Eos % 2.4 % [facility] Eosinophils Abs 0.3 0.0 - 0.4 x10(3)/[facility] Basophil % 1.3 % [facility] Baso Absolute 0.1 0.0 - 0.1 x10(3)/ L [facility] Immature Gran % 2.10 % [facility] Comment: Immature granulocytes(IG's)percentage and absolute count will include metamyelocytes, myelocytes, and promyelocytes. Blood smears from CBCs yielding IG's will be scanned manually for concordance. If this scan disagrees with the automated IG or if promyelocytes are noted, a manual differential will be performed. Immature Gran Absolute 0.22(H) 0.00 - 0.04 x10(3)/ L [facility] Blood 02/20/2022 5:47 PM EST 02/20/2022 5:54 PM EST Narrative Resulting Agency Comment Spec In Lab Tessie Robles MD HEMATOLOGY ORDERABLE S Performing Organization Address City/[facility] [address]/[place] [address] * (ABNORMAL) Hemogram (02/20/2022 5:47 PM EST) White Blood Cell 10.7(H) 4.0 - 9.5 x10(3)/mc L [facility] Red Blood Cell 5.71(H) 4.58 - 5.54 x10(6)/mc L [facility] Hemoglobin 17.4(H) 13.7 - 16.5 g/dL [facility] Hematocrit 50.7(H) 40.5 - 48.5 % [facility] Mean Cell Volume 88.8 82.9 - 93.1 fL [facility] Mean Cell Hemoglobin 30.5 27.5 - 32.1 pg [facility] Mean Cell Hemoglobin Concentration 34.3 32.0 - 35.7 g/dL [facility] Platelet 220 145 - 357 x10(3)/mc L [facility] RDW Standard Deviation 41.6 36.0 - 45.0 fL [facility] RDW coefficient of variation 12.8 11.4 - 13.8 % [facility] Mean Platelet Volume 10.7 7.6 - 12.9 fL [facility] NRBC% auto 0.0 % [facility] NRBC Absolute 0.000 0.000 - 0.000 x10(3)/mc L [facility] Blood 02/20/2022 5:47 PM EST 02/20/2022 5:54 PM EST Narrative Resulting Agency Comment Spec In Lab Tessie Robles MD HEMATOLOGY ORDERABLE S Performing Organization Address City/[facility] [address]/[facility] Co de Phone Number [facility] [place] [address] * Biorepository Request (02/20/2022 5:47 PM EST) Pathologist [facility] Biorepository Hold Sample in lab [facility] Blood 02/20/2022 5:47 PM EST 02/21/2022 11:01 AM EST Narrative Resulting Agency Comment Spec In Lab Tessie Robles MD MOLECULAR ORDERABLES Performing Organization Address City/[facility] [address]/ZIP Co de Phone Number [facility] [place] [place] [address] * Lipid Panel (Reflex Direct LDL) (02/20/2022 5:47 PM EST) Pathologist [facility] Cholesterol, Total 134 mg/dL [facility] Comment: Lower Risk: <200 mg/dL Average Risk: 200-239 mg/dL Higher Risk: >ml=298 mg/dL Triglyceride 536 mg/dL [facility] Comment: Average Risk/Lower Risk: <150 mg/dL Borderline High Risk: 150-199 mg/dL High Risk: 200-499 mg/dL Very High Risk: >zv=364 mg/dL HDL Cholesterol 25 mg/dL [facility] Comment: Males: ?? Higher Risk: <40 mg/dL Females: ?? Higher Risk: <50 mg/dL LDL Cholesterol Not Calculated [facility] Comment: Calculated LDL value is not valid for triglycerides greater than 400 mg/dl. Lowest Risk: <100 mg/dL Lower Risk: 100-129 mg/dL Borderline High Risk: 130-159 mg/dL High Risk: 160-189 mg/dL Very High Risk: >nm=256 mg/dL Cholesterol/HDL Ratio 5.4 ratio [facility] Lipid Interpretation See Note [facility] Comment: Lipid management should be guided by a patient? s ASCVD risk, goals and preferences. ACC/AHA Guidelines recommend high intensity statin if clinical ASCVD or LDL greater than or equal to 190 mg/dL. http://[employer].com/LVA-PZE-Szvahjcuh Adults aged 40-75 with LDL 70-189 mg/dL should have their 10 year ASCVD risk estimated with the ACC/AHA ASCVD risk junior estimator http://tools.acc.org/BASXK-Vbmg-Mtqrfhaxw/ Statin should be discussed if risk greater [...] In Lab Tessie Robles MD CHEMISTRY ORDERABLES [facility] [place] [address] * (ABNORMAL) Hemoglobin A1c (02/20/2022 5:47 PM EST) Hemoglobin A1c 6.2(H) 4.3 - 5.6 % [facility] Comment: Reference Range: 4.3 - 5.6% [...] Mellitus, Diabetes Care 2013; 36: Suppl. 1, M68-97 Estimated Average Glucose 130 mg/dL [facility] Comment: eAG equivalents for HbA1c percentages: [...] into estimated average glucose values. ??Diabetes Care 2008:31(8):9278-7131. Blood 02/20/2022 5:47 PM EST 02/20/2022 5:54 PM EST Narrative Resulting Agency Comment Spec In Lab Tessie Robles MD CHEMISTRY ORDERABLES [facility] [place] [address] * (ABNORMAL) Comprehensive metabolic panel (non-fasting) (02/20/2022 5:47 PM EST) Glucose 134 65 - 199 mg/dL [facility] Comment:Diabetes: >=200 mg/d L plus symptoms Blood Urea Nitrogen 16 10 - 20 mg/dL [facility] Creatinine 1.16 0.80 - 1.50 mg/dL [facility] Sodium 139 135 - 145 mmol/L [facility] Potassium 4.3 3.5 - 5.0 mmol/L [facility] Comment: Please note: ??Patients with WBC >100,000 may have falsely elevated Potassium levels. ??For accurate Potassium quantification in these patients send serum separator tube (gold top) for subsequent determinations. ??Contact the Clinical Chemistry Laboratory if there are any questions. Chloride 105 98 - 107 mmol/L [facility] Carbon Dioxide 21(L) 22 - 31 mmol/L [facility] Anion Gap 13 5 - 15 mmol/L [facility] Calcium 9.4 8.5 - 10.5 mg/dL [facility] Protein, Total 6.9 6.1 - 8.0 g/dL [facility] Albumin 4.4 3.2 - 5.2 g/dL [facility] Aspartate Aminotransferase 14 0 - 39 unit/L [facility] Alanine Aminotransferase 26 0 - 55 unit/L [facility] Alkaline Phosphatase 120 40 - 130 unit/L [facility] Bilirubin, Total <0.2(L) 0.2 - 1.3 mg/dL [facility] Est Glomerular Filtration Rate 73 >=60 mL/min/1. 73 m?? [facility] Comment: This patient's estimated GFR was [...] In Lab Tessie Robles MD CHEMISTRY ORDERABLES [facility] [place] [address] documented in this encounter Visit Diagnoses Diagnosis [...] present documented in this encounter Care Teams Junior Network Administrator Relationship Specialty Start Date End Date Judd Pizarro MD [address] [place] [address] PCP - General Family Medicine 06/20/21 documented as of this encounter
--- OUTSIDE RECORDS SUMMARY | 2023-10-08 10:48 | XMS_ITS | Encounter Summary ---
Author Organization [facility] Address [facility] [place] [address] Care Team Providers Care Plastic Machine Operator Name Role Phone Judd Pizarro MD Primary Care Provider [phone] Encounter Details Date Type Department Care Team (Latest Contact Info) Description 07/04/2021 10:30 AM EDT TH Visit (TeleHealth) Weight and Wellness at [address] [address] Nolvia Saleh, RD [facility] [place] [place] [address] Adult BMI 34.0-34.9 kg/sq m Social History [...] past visits. Please reach out with a [employer] message if you have any questions or [...] was at home at the following address: [address] [place] [address] Weight Today: 212 at the doctor the [...] crystal light or other sugar-free additive [] [place] (natural or artificial flavoring or plain only) [...] Nutrition Change to whole wheat toast or French Muffin at breakfast. Instead of 4 eggs , have 2 eggs and peanut butter on the French muffin. When looking for a whole grain [...] Nutrition Change to whole wheat toast or French Muffin at breakfast. Instead of 4 eggs , have 2 eggs and peanut butter on the French muffin. When looking for a whole grain [...] initial visit Thank you Nolvia Saleh RD [facility] 30 minutes were spent in visit [...] for the next couple months Lifestyle No Nlovia Saleh RD Note: Either in a notebook [...] adult documented in this encounter Care Teams Plastic Machine Operator Relationship Specialty Start Date End Date Judd Pizarro MD [facility] [place] [address] PCP - General Family Medicine 06/20/21 documented as of this encounter
--- OUTSIDE RECORDS SUMMARY | 2023-10-08 10:48 | XMS_ITS | Encounter Summary ---
Author Organization [facility] Address [facility] [place] [address] Care Team Providers Care Organic Gardening Teacher Name Role Phone Judd Pizarro MD Primary Care Provider [phone] Encounter Details Date Type Department Care Team (Late st Contact Info) Description 09/26/2021 10:45 AM EDT TH Visit (TeleHealth) Weight and Wellness at [address] [address] [address] [facility] [place] [address] Adult BMI 34.0-34.9 kg/sq m Social History [...] at home at the following address: [address] [place] [address] Weight Today: Wt Readings from Last 3 [...] eggs, white toast, sausage or fox L: [place]-ham or turkey, cheese, mustard, sometimes lettuce D: Burgers or chicken on grill, cauliflower or broccoli, or fresh peas or other veg from garden S: ~ 5pm bowl of ice cream-2 scoops Typical Beverages: [x] coffee [] half and half (unflavored) [x] flavored creamer (sugar) Somali vanilla [] flavored creamer (sugar-free) [] added sugar - (total: [] added non-caloric sweetener [x] water - (total: 2-3 bottles, 1 near the bed at night [x] plain [] crystal light or other sugar-free additive [] [place] (natural or artificial flavoring or plain only) [...] adult documented in this encounter Care Teams Organic Gardening Teacher Relationship Specialty Start Date End Date Judd Pizarro MD [facility] [place] [address] PCP - General Family Medicine 06/20/21 documented as of this encounter
--- OUTSIDE RECORDS SUMMARY | 2023-10-08 10:48 | XMS_ITS | Encounter Summary ---
Author Organization [facility] [place] [address] Care Team Providers Care Apartment Rental Agent Name Role Phone Judd Pizarro MD Primary Care Provider [phone] Encounter Details Date Type Department Care Team (Late st Contact Info) Description 05/10/2022 1:05 PM EDT Ancillary Procedure [place] [address] Nic Samaniego MD [facility] [address] [place] [address] Social History Tobacco Use Types Packs/Day Years Used Date Smoking Tobacco: Every Day Cigarettes 1.5 38 Smokeless Tobacco: Never Alcohol Use Standard Drinks/Week Comments No 0 (1 standard drink = 0.6 oz pure alcohol) Formerly heavy - stopped a few years ago. [facility] Inpatient Questions Answer Date Recorded Does Anyone [...] IMG FILM LIBRARY ORDERABLES Performing Organization Address City/State/[facility] Co de Phone Number [place], [place] documented in this encounter Visit Diagnoses Not on filedocumented in this encounter Care Teams Apartment Rental Agent Relationship Specialty Start Date End Date Judd Pizarro MD [address] [place] [address] PCP - General Family Medicine 06/20/21 documented as of this encounter
--- OUTSIDE RECORDS SUMMARY | 2023-10-08 10:48 | XMS_ITS | Encounter Summary ---
Author Organization [facility] Address [address] [place] [address] Care Team Providers Care Rock Worker Name Role Phone Garth Marroquin DO Primary Care Provider [phone] Encounter Details Date Type Department Care Team (Late st Contact Info) Description 07/04/2022 Lab Requisition [facility] Pathology & Laboratory Medicine - [facility] [address], [place] [address] Outr Resulting Lab, Provider Social History Tobacco [...] PSA 0.6 <=3.5 ng/mL 07/07/2022 9:23 EDT [facility] Blood VENOUS BLOOD / Unknown 07/04/2022 15:00 EDT 07/04/2022 21:27 EDT Narrative [facility] - 07/07/2022 9:23 EDT NOTE: Serum PSA concentration should not be interpreted as absolute evidence for the presence or absence of malignant disease. Assayed on Siemens ADVIA Soundtrack[employer]ur XPT using chemiluminescent technology.??Values obtained by using different assay methods cannot be used interchangeably. Provider Outr Resulting Lab CHEMISTRY & BLOOD GAS ORDERABLES [facility] [address] [place] [address] documented in this encounter Visit Diagnoses Not on filedocumented in this encounter Care Teams Rock Worker Relationship Specialty Start Date End Date Garth Marroquin DO [address] [facility] [place] [address] PCP - General 10/30/17 documented as of this encounter
--- OUTSIDE RECORDS SUMMARY | 2023-10-08 10:48 | XMS_ITS | Encounter Summary ---
Author Organization [facility] Address [address] [place] [address] Care Team Providers Care Ophthalmic Medical Technician Name Role Phone Garth Marroquin DO Primary Care Provider [phone] Reason for Visit * Reason Onset Date Comments Appointment Related 11/30/2017 Reschedule I R Biopsy Encounter Details Date Type Department Care Team (Late st Contact Info) Description 11/30/2017 Telephone [facility] Interventional Radiology - [facility] [address], [place] [id number] Colton Edmond MD [address] [facility], Level [address] [place] [address] Appointment Related (Reschedule IR Biopsy) [...] on filedocumented in this encounter Care Teams Ophthalmic Medical Technician Relationship Specialty Start Date End Date Garth Marroquin DO [address] [place] [address] PCP - General 10/30/17 documented as of this encounter
--- OUTSIDE RECORDS SUMMARY | 2023-10-08 10:48 | XMS_ITS | Encounter Summary ---
Author Organization [facility] [place] [address] Care Team Providers Care Chemistry Technologist Name Role Phone Judd Pizarro MD Primary Care Provider [phone] Encounter Details Date Type Department Care Team (Late st Contact Info) Description 07/19/2021 Telephone Weight and Wellness at [facility] [address] [place] [address] Mariam Reynoso V Social History [...] on filedocumented in this encounter Care Teams Chemistry Technologist Relationship Specialty Start Date End Date Judd Pizarro MD [facility] [place] [address] PCP - General Family Medicine 06/20/21 documented as of this encounter
--- OUTSIDE RECORDS SUMMARY | 2023-10-08 10:48 | XMS_ITS | Encounter Summary ---
Author Organization [facility] [place] [address] Care Team Providers Care Beam Dyer Operator Name Role Phone Judd Pizarro MD Primary Care Provider [phone] Reason for Visit * Reason Comments Hospital Transfer Back Pain Encounter Details Date Type Department Care Team (Late st Contact Info) Description 05/10/2022 4:32 PM EDT - 05/10/2022 10:25 PM EDT [place] [address] Ann Marie Newton MD [facility] [address] [place] [address] Meir Sutherland MD [facility] [address] [place] [address] Low back pain, non-specific Discharge Disposition: Home Social History Tobacco Use Types Packs/Day Years Used Date Smoking Tobacco: Every Day Cigarettes 1.5 38 Smokeless Tobacco: Never Alcohol Use Standard Drinks/Week Comments No 0 (1 standard drink = 0.6 oz pure alcohol) Formerly heavy - stopped a few years ago. COUNT INCLUDES THE [facility] Inpatient Questions Answer Date Recorded Does [...] sent through Care Everywhere. * Back Pain (Finnish) * Back: Preventing Injuries (Finnish) documented in this encounter Medications at Time [...] mg by mouth daily. 02/17/2022 HYDROcodone-acetamino phen ([employer]) 5-325 mg Tablet TAKE 1 TABLET BY [...] who have questions please contact the health critical care nurse that requested your imaging first. Electronically signed by: Judd Moreno MD, [facility] ([phone]), at 05/10/2022 6:59 PM U/A: RBC 5 [...] incontinence last night. He was sent from [facility] for and MRI to rule out caude equina. He presented to the emergency department at [facility] with concerns of urinary incontinence [...] who have questions please contact the health critical care nurse that requested your imaging first. Electronically signed by: Judd Moreno MD, [facility] ([phone]), at 05/10/2022 6:59 PM Spine recommends medrol dose pack. Discharge home. F/u PCP. No surgical intervention indicated at this tie. Assessment/plan: Low back pain Urinary incontinence D/c home F/u PCP Rx Medrol dose pack Return precautions Ann Marie Newton MD 05/10/222034 * Garth Dalal RN - 05/10/2022 3:51 PM EDT Sending Facility: [facility] Reason for Transfer: rule out caudia equina Report: Patient is an alert and oriented 56-year-old male who presented to the emergency department at [facility] with concerns of urinary incontinence. Patient had seen his primary care provider 2 to 3 weeks prior for some lower back pain. Patient had no new trauma or injury to provoke this urinary incontinence. Patient is being transferred to [facility] emergency department for an MRI to rule out cauda equina. Patient is otherwise alert, oriented, pink warm and dry. Vital signs of been stable. 1 g of Tylenol and 10 mg of Decadron have been given Vital Signs: Pulse: B/P: Resp: SPO2: O2 LPM: GCS: BGL: Temp: STEMI ALERT: Has the EKG been transmitted? Yes/No STROKE ALERT: Last Known Well Time: [place] Stroke Scale: + / - FAST-ED Score: TRAUMA ALERT: T9 Alert Consult Lowest Documented BP Transporting Service: [facility] Time of Departure: ETA: 1620 documented in [...] 10 mg by mouth daily. ??? HYDROcodone-acetaminophen ([employer]) 5-325 mg Tablet TAKE 1 TABLET BY [...] RBC, Urine 5(H) 0 - 3 /HPF [facility] WBC, Urine 0 0 - 3 /HPF [facility] Urine 05/10/2022 9:12 PM EDT 05/10/2022 9:16 PM EDT Narrative Resulting Agency Comment Spec In Lab Danish Arana MD URINE ORDERABLES [facility] [place] [address] * (ABNORMAL) Urinalysis with reflex Culture (05/10/2022 9:12 PM EDT) Glucose, Urine Dipstick Negative Negative mg/dL [facility] Protein, Urine Dipstick Negative Negative mg/dL [facility] Bilirubin, Urine Dipstick Negative Negative mg/dL [facility] Comment: Clinical correlation required for positive Urine Bilirubin results as false positive may occur with some drugs and drug related products. If a false positive is suspected a serum total bilirubin should be considered if clinically indicated. Urobilinogen, Urine Dipstick Normal Normal mg/dL [facility] pH, Urn (dipstick) 6.5 5.0 - 8.0 [facility] Blood, Urine Dipstick Small(A) Negative mg/dL [facility] Ketone, Urine Dipstick Negative Negative mg/dL [facility] Nitrite, Urine Dipstick Negative Negative [facility] Leukocytes, Urine Dipstick Negative Negative mcL [facility] Appearance, Urine Dipstick Clear Clear [facility] Specific [place] Urine Automated 1.013 1.005 - 1.030 [facility] Color, Urine Dipstick Yellow Yellow [facility] Reflex to Culture No [facility] Urine 05/10/2022 9:12 PM EDT 05/10/2022 9:16 PM EDT Narrative Resulting Agency Comment Spec In Lab Ann Marie Newton MD URINE ORDERABLES Performing Organization Address City/State/[facility] Co de Phone Number [facility] [place] [address] * MRI Lumbar Spine wo Contrast (Generic) [...] who have questions please contact the health critical care nurse that requested your imaging first. ? Electronically signed by: Judd Moreno MD, [facility] ([phone]), at 05/10/2022 6:59 PM Narrative 05/10/2022 6:59 PM EDT EXAMINATION: MRI LUMBAR SPINE WO CONTRAST (GENERIC) CLINICAL HISTORY: Low back pain, cauda equina syndrome suspected Low back pain, cauda equina syndrome suspected TECHNIQUE: MRI of the lumbar spine performed without intravenous contrast administration. COMPARISON: CT lumbar spine dated 05/10/2022 from [facility] FINDINGS: Normal alignment of the [...] COMPARISON: CT lumbar spine dated 05/10/2022 from [facility] FINDINGS: Normal alignment of the 5 lumbar type vertebral bodies. There is minimal retrolisthesis of L5 on S1 similar to CT examination. Vertebral bodies are normal in height. There is anterior endplateproliferative and reactive changes T11-12 and T12-L1 and to lesser extent L1-2. Disc space narrowing and decreased signal intensity on T2 sequence mgG29-P4. The remaining intervertebral disc spaces are normal [...] the clinical situation (Reference- Vishnuvik Et Al, [id number]). Findings: (Prevalence in patients without low back [...] patients who have questions please contactthe health critical care nurse that requested your imaging first. Electronically signed by: Judd Moreno MD, [facility]([phone]), at 05/10/2022 6:59 PM Ann Marie Newton [...] RN) documented in this encounter Care Teams Beam Dyer Operator Relationship Specialty Start Date End Date Judd Pizarro MD [facility] [place] [address] PCP - General Family Medicine 06/20/21 documented as of this encounter
--- OUTSIDE RECORDS SUMMARY | 2023-10-08 10:48 | XMS_ITS | Encounter Summary ---
Author Organization [facility] [place] [address] Care Team Providers Care Turfgrass Management Professor Name Role Phone Judd Pizarro MD Primary Care Provider [phone] Encounter Details Date Type Department Care Team (Late st Contact Info) Description 06/25/2021 External Results Weight and Wellness at [facility] [address] [place] [phone] Emilie Galvan, RN Social History Tobacco Use [...] Procedure Name Priority Date/Time Associated Diagnosis Comments [facility] EXTERNAL RESULT PANEL Routine 04/17/2021 HEMOGLOBIN A1C Routine 03/08/2021 documented in this encounter Results * (ABNORMAL) [facility] External Results (04/17/2021) Glucose Fasting 87 Blood [...] on filedocumented in this encounter Care Teams Turfgrass Management Professor Relationship Specialty Start Date End Date Judd Pizarro MD [facility] [place] [address] PCP - General Family Medicine 06/20/21 documented as of this encounter
--- OUTSIDE RECORDS SUMMARY | 2023-10-08 10:48 | XMS_ITS | Encounter Summary ---
Author Organization [facility] [place] [address] Care Team Providers Care Green Marketing Analyst Name Role Phone Garth Marroquin DO Primary Care Provider [phone] Encounter Details Date Type Department Care Team (Late st Contact Info) Description 04/30/2021 Telephone Weight and Wellness at [facility] [address] [place] [address] Emilie Galvan, RN Social History [...] on filedocumented in this encounter Care Teams Green Marketing Analyst Relationship Specialty Start Date End Date Garth Marroquin DO [address] [place] [address] PCP - General Family Medicine 03/02/20 06/19/21 documented as of this encounter
--- OUTSIDE RECORDS SUMMARY | 2023-10-08 10:48 | XMS_ITS | Encounter Summary ---
Author Organization [facility] Address [address] [place] [address] Care Team Providers Care Drum Drier Name Role Phone Garth Marroquin DO Primary Care Provider [phone] Encounter Details Date Type Department Care Team (Late st Contact Info) Description 12/16/2017 Pre-Procedure Orders Encounter [facility] Interventional Radiology Unit [address] [place] [address] Nicholas Tabares PA-C [address] [facility] [address] [place] [phone] Social History Tobacco Use Types Packs/Day Years [...] on filedocumented in this encounter Care Teams Drum Drier Relationship Specialty Start Date End Date Garth Marroquin DO [address] [place] [phone] PCP - General 10/30/17 documented as of this encounter
--- OUTSIDE RECORDS SUMMARY | 2023-10-08 10:48 | XMS_ITS | Clinical Summary ---
Author Organization [facility] Address [facility] [place] [address] Care Team Providers Care Wood Boring Machine Operator Name Role Phone Judd Pizarro MD Primary Care Provider [phone] Allergies Active Allergy Reactions Criticality Noted Date [...] by mouth daily. 02/17/2022 Active HYDROcodone-acetam inophen ([employer]) 5-325 mg Tablet TAKE 1 TABLET BY [...] Hemoglobin A1c 6.2(H) 4.3 - 5.6 % [facility] Comment: Reference Range: 4.3 - 5.6% [...] Mellitus, Diabetes Care 2013; 36: Suppl. 1, L58-30 Estimated Average Glucose 130 mg/dL [facility] Comment: eAG equivalents for HbA1c percentages: [...] into estimated average glucose values. ??Diabetes Care 2008:31(8):0597-4136. Blood 02/20/2022 5:47 PM EST 02/20/2022 5:54 PM EST Narrative Resulting Agency Comment Spec In Lab Tessie Robles MD CHEMISTRY ORDERABLES [facility] [place] [address] * (ABNORMAL) Comprehensive metabolic panel (non-fasting) (02/20/2022 5:47 PM EST) Glucose 134 65 - 199 mg/dL [facility] Comment:Diabetes: >=200 mg/d L plus symptoms Blood Urea Nitrogen 16 10 - 20 mg/dL [facility] Creatinine 1.16 0.80 - 1.50 mg/dL [facility] Sodium 139 135 - 145 mmol/L [facility] Potassium 4.3 3.5 - 5.0 mmol/L [facility] Comment: Please note: ??Patients with WBC >100,000 may have falsely elevated Potassium levels. ??For accurate Potassium quantification in these patients send serum separator tube (gold top) for subsequent determinations. ??Contact the Clinical Chemistry Laboratory if there are any questions. Chloride 105 98 - 107 mmol/L [facility] Carbon Dioxide 21(L) 22 - 31 mmol/L [facility] Anion Gap 13 5 - 15 mmol/L [facility] Calcium 9.4 8.5 - 10.5 mg/dL [facility] Protein, Total 6.9 6.1 - 8.0 g/dL [facility] Albumin 4.4 3.2 - 5.2 g/dL [facility] Aspartate Aminotransferase 14 0 - 39 unit/L [facility] Alanine Aminotransferase 26 0 - 55 unit/L [facility] Alkaline Phosphatase 120 40 - 130 unit/L [facility] Bilirubin, Total <0.2(L) 0.2 - 1.3 mg/dL [facility] Est Glomerular Filtration Rate 73 >=60 mL/min/1. 73 m?? [facility] Comment: This patient's estimated GFR was [...] In Lab Tessie Robles MD CHEMISTRY ORDERABLES [facility] [place] [address] from Last 3 Months or Most Recently Relevant to Health Maintenance Advance Directives Documents on File Type Date Recorded Patient Automation Engineer Expl anation Advance Directives and Livin g Will 03/23/2017 11:39 AM * Full Code (Latest Code Status on File) Date Activated Date Inactivated Comments 03/20/2017 2:40 PM 03/21/2017 3:33 PM Question Answer Comments Does patient have capacity to make decision: Yes Care Teams Wood Boring Machine Operator Relationship Specialty Start Date End Date Judd Pizarro MD [address] [place] [phone] PCP - General Family Medicine 06/20/21
--- OUTSIDE RECORDS SUMMARY | 2023-10-08 10:48 | XMS_ITS | Encounter Summary ---
Author Organization [facility] Address [address] [place] [address] Care Team Providers Care Quality Specialist Name Role Phone Garth Marroquin DO Primary Care Provider [phone] Encounter Details Date Type Department Care Team (Late st Contact Info) Description 03/30/2020 Lab Requisition [facility] Pathology & Laboratory Medicine - [address] [id number] Outr Resulting Lab, Provider Social History Tobacco [...] 0.0 - 3.5 ng/mL 03/30/2020 18:03 EST [facility] Blood VENOUS BLOOD / Unknown 03/29/2020 13:40 EST 03/30/2020 16:30 EST Narrative [facility] - 03/30/2020 18:03 EST NOTE: Serum PSA concentration should not be interpreted as absolute evidence for the presence or absence of malignant disease. Assayed on Siemens ADVIA Centaur XPT using chemiluminescent technology.??Values obtained by using different assay methods cannot be used interchangeably. Provider Outr Resulting Lab CHEMISTRY & BLOOD GAS ORDERABLES [facility] [address] [place] [address] documented in this encounter Visit Diagnoses Not on filedocumented in this encounter Care Teams Quality Specialist Relationship Specialty Start Date End Date Garth Marroquin DO [address] [place] [phone] PCP - General 10/30/17 documented as of this encounter
--- OUTSIDE RECORDS SUMMARY | 2023-10-08 10:48 | XMS_ITS | Encounter Summary ---
Author Organization [facility] [place] [address] Care Team Providers Care Circuit Designer Name Role Phone Judd Pizarro MD Primary Care Provider [phone] Reason for Visit * Reason Onset Date Comments Appointment 11/29/2021 Encounter Details Date Type Department Care Team (Late st Contact Info) Description 11/29/2021 Telephone Weight and Wellness at [facility] [address] [place] [phone] Mariam Reynoso V Appointment Social History Tobacco [...] on filedocumented in this encounter Care Teams Circuit Designer Relationship Specialty Start Date End Date Judd Pizarro MD [address] [place], [place] [address] [phone] PCP - General Family Medicine 06/20/21 documented as of this encounter
--- OUTSIDE RECORDS SUMMARY | 2023-10-08 10:48 | XMS_ITS | Encounter Summary ---
Author Organization [facility] [place] [address] Care Team Providers Care Aerospace Mechanic Name Role Phone Judd Pizarro MD Primary Care Provider [phone] Encounter Details Date Type Department Care Team (Late st Contact Info) Description 05/10/2022 [place] [phone] [facility] [place] [address] Social History Tobacco Use Types Packs/Day Years [...] Heard MD - 05/10/2022 2:01 PM EDT [facility] Center Call Spoke to Diallo [...] on filedocumented in this encounter Care Teams Aerospace Mechanic Relationship Specialty Start Date End Date Judd Pizarro MD [address] [place] [address] PCP - General Family Medicine 06/20/21 documented as of this encounter
--- OUTSIDE RECORDS SUMMARY | 2023-10-08 10:48 | XMS_ITS | Encounter Summary ---
Author Organization [facility] Address [address] [place] [address] Care Team Providers Care Golf Club Manager Name Role Phone Garth Marroquin DO Primary Care Provider [phone] Encounter Details Date Type Department Care Team (Late st Contact Info) Description 06/23/2020 Lab Requisition [facility] Pathology & Laboratory Medicine - [facility] [address] [place] [address] Angus Raza MD [address] [place] [phone] Encounter for screening for malignant neoplasm [...] - Deeper sections x3 examined. 06/27/2020 9:33 [facility] Attestation By the signature below, the attending physician certifies that they have 1) personally conducted a gross and/or microscopic examination of the described specimen(s), and/or personally interpreted the results of laboratory testing of the described specimen(s), and 2) personally rendered or confirmed the above diagnosis. 06/27/2020 9:33 [facility] at 0933 Clinical History Abdominal pain, history of adenomatous polyps, fatty liver; clinical diagnosis code: Z12.11, R10.31, Z86.010 06/27/2020 9:33 [facility] Gross Description A. Received in [...] C1. JAMES MYERS(ASCP) 06/25/2020 10:15 06/27/2020 9:33 [facility] Performing Lab [facility] 06/27/2020 9:33 [facility] Scanned Images 06/27/2020 9:33 [facility] Tissue ENTIRE SIGMOID COLON / Unknown 06/22/2020 7:31 EDT 06/23/2020 9:41 EDT Tissue specimen (specimen) TRANSVERSE COLON STRUCTURE / Unknown 06/22/2020 7:31 EDT 06/23/2020 9:41 EDT Tissue specimen (specimen) SIGMOID COLON STRUCTURE / Unknown 06/22/2020 7:31 EDT 06/23/2020 9:41 EDT Angus Raza MD PATHOLOGY ORD ERABLES [facility] [address] [place] [address] documented in this encounter Visit Diagnoses Diagnosis Encounter for screening for malignant neoplasm of colon Special screening for malignant neoplasms, colon Right lower quadrant pain Abdominal pain, right lower quadrant Personal history of colonic polyps documented in this encounter Care Teams Golf Club Manager Relationship Specialty Start Date End Date Garth Marroquin DO [address] [place] [address] PCP - General 10/30/17 documented as of this encounter
--- OUTSIDE RECORDS SUMMARY | 2023-10-08 10:48 | XMS_ITS | Encounter Summary ---
Author Organization [facility] [address] Care Team Providers Care Apron Trimmer Name Role Phone Judd Pizarro MD Primary Care Provider [phone] Encounter Details Date Type Department Care Team [...] on filedocumented in this encounter Care Teams Apron Trimmer Relationship Specialty Start Date End Date Judd Pizarro MD [address] [place] [address] PCP - General Family Medicine 06/20/21 documented as of this encounter
--- OUTSIDE RECORDS SUMMARY | 2023-10-08 10:48 | XMS_ITS | Encounter Summary ---
Author Organization [facility] [place] [address] Care Team Providers Care After School Tutor Name Role Phone Judd Pizarro MD Primary Care Provider [phone] Reason for Visit * Reason Onset Date Comments Medication Refill 01/06/2022 Encounter Details Date Type Department Care Team (Late st Contact Info) Description 01/06/2022 Refill Weight and Wellness at [address] [phone] Martina Jerome, [facility] Class 1 obesity due to excess [...] present documented in this encounter Care Teams After School Tutor Relationship Specialty Start Date End Date Judd Pizarro MD [address] [facility] [place] [address] PCP - General Family Medicine 06/20/21 documented as of this encounter
--- OUTSIDE RECORDS SUMMARY | 2023-10-08 10:48 | XMS_ITS | Encounter Summary ---
Author Organization [facility] Address [address] [place] [address] Care Team Providers Care Manager Distribution Center Name Role Phone Garth Marroquin DO Primary Care Provider Encounter Details Date Type Department Care Team (Late st Contact Info) Description 07/18/2019 Lab Requisition [facility] Pathology & Laboratory Medicine - [facility] [address] [place] [address] Angus Raza MD [address] [place] [phone] Gastro-esophageal reflux disease without esophagitis; Right lower [...] features compatible with glycogenic acanthosis. 07/19/2019 17:16 [facility] at 1716 Attestation By the signature below, the attending physician certifies that they have 1) personally conducted a gross and/or microscopic examination of the described specimen(s), and/or personally interpreted the results of laboratory testing of the described specimen(s), and 2) personally rendered or confirmed the above diagnosis. 07/19/2019 17:16 [facility] at 1716 Clinical History Esophageal plaque; gastric erosion 07/19/2019 17:16 [facility] Gross Description A. [...] C1. Petty Rawls 07/18/2019 15:58 07/19/2019 17:16 [facility] Scanned Images 07/19/2019 17:16 [facility] Tissue ENTIRE ESOPHAGUS / Unknown 07/15/2019 7:45 EDT 07/18/2019 15:36 EDT Tissue specimen (specimen) STOMACH STRUCTURE / Unknown 07/15/2019 7:45 EDT 07/18/2019 15:36 EDT Tissue specimen (specimen) ESOPHAGEAL STRUCTURE / Unknown 07/15/2019 7:45 EDT 07/18/2019 15:36 EDT Angus Raza MD PATHOLOGY ORD ERABLES [facility] [address] [place] [address] documented in this encounter Visit Diagnoses Diagnosis Gastro-esophageal reflux disease without esophagitis Esophageal reflux Right lower quadrant pain Abdominal pain, right lower quadrant documented in this encounter Care Teams Manager Distribution Center Relationship Specialty Start Date End Date Garth Marroquin DO [address] [place], [place] [address] [address] PCP - General 10/30/17 documented as of this encounter
--- OUTSIDE RECORDS SUMMARY | 2023-10-08 10:48 | XMS_ITS | Encounter Summary ---
Author Organization [facility] Address [address] [place] [address] Care Team Providers Care Electric Motor Analyst Name Role Phone Unavailable Primary Care Provider Unavailabl e Encounter Details Date Type Department Care Team (Latest Contact Info) Description 09/26/2014 11:21 EDT - 09/26/2014 23:59 EDT Hospital Encounter [address] [address] Unknown, Provider, Discharge Disposition: Home or Self Care Social History Tobacco Use Types Packs/Day Years Used Date Smoking Tobacco: Never Assessed Sex and Gender Information Value Date Recorded Sex Assigned at Not on file Gender Identity Not on file Sexual Orientation Not on file documented as of this encounter Discharge Disposition Disposition Code Departure Means Destination Home or Self Fdc documented in this encounter Plan of Treatment Not on file documented as of this encounter Visit Diagnoses Not on filedocumented in this encounter
--- OUTSIDE RECORDS SUMMARY | 2023-10-08 10:48 | XMS_ITS | Encounter Summary ---
Author Organization [facility] Address [address] [place] [address] Care Team Providers Care Powerhouse Mechanic Supervisor Name Role Phone Garth Marroquin DO Primary Care Provider [phone] Encounter Details Date Type Department Care Team (Late st Contact Info) Description 10/24/2019 Lab Requisition [facility] Pathology & Laboratory Medicine - [facility] [address], [place] [address] Outr Resulting Lab, Provider Social History Tobacco [...] rt-PCR Result NEGATIVE Negative 10/25/2019 12:27 EDT [facility] Comment: 2019-novel Coronavirus (2019-nCoV) not detected [...] in accordance with CLIA regulations, College of [employer] (CAP) guidelines (May 05, 2019), and FDA guidance (Apr 16, 2019). This test is only for use under the Food and Drug Administration's Emergency Use Authorization. Swab ENTIRE NASOPHARYNX / Unknown 10/24/2019 9:09 EDT 10/24/2019 19:46 EDT Provider Outr Resulting Lab MICROBIOLOGY - GENERAL ORDERABLES [facility] [place], [place] * COVID-19 TESTING (10/24/2019 9:09 EDT) COVID-19 rt-PCR Result NEGATIVE Negative 10/25/2019 14:38 EDT [facility] Comment: 2019-novel Coronavirus (2019-nCoV) not detected [...] in accordance with CLIA regulations, College of [employer]ologists (CAP) guidelines (May 05, 2019), and FDA guidance (Apr 16, 2019). This test is only for use under the Food and Drug Administration's Emergency Use Authorization. Performing Lab [employer] [place] 10/25/2019 14:38 EDT [facility] Swab 10/24/2019 9:09 EDT 10/24/2019 19:46 EDT Provider Outr Resulting Lab MICROBIOLOGY - GENERAL ORDERABLES Performing Organization Address City/State/[place] Co de Phone Number [facility] [address] [place] [address] [facility] [place], [place] documented in this encounter Visit Diagnoses Not on filedocumented in this encounter Care Teams Powerhouse Mechanic Supervisor Relationship Specialty Start Date End Date Garth Marroquin DO [address] [place] [address] PCP - General 10/30/17 documented as of this encounter
--- OUTSIDE RECORDS SUMMARY | 2023-10-08 10:48 | XMS_ITS | Encounter Summary ---
Author Organization [facility] Address [address] [place] [address] Care Team Providers Care Control Tower Operator Name Role Phone Garth Marroquin DO Primary Care Provider [phone] Encounter Details Date Type Department Care Team (Late st Contact Info) Description 06/12/2020 Lab Requisition [facility] Pathology & Laboratory Medicine - [address] [address] Desmond Rogers MD [address] [place] [address] [phone] Other microscopic hematuria Social History Tobacco Use [...] Name Priority Date/Time Associated Diagnosis Comments NON SALES AND LEASING CONSULTANT/FNA CYTOLOGY Today 06/11/2020 8:00 EDT Other microscopic hematuria documented in this encounter Results * NON SALES AND LEASING CONSULTANT/FNA CYTOLOGY (06/11/2020 8:00 EDT) Final Diagnosis URINE, BARBOTAGE, CYTOLOGIC EVALUATION: - Negative for high grade urothelial carcinoma. 06/12/2020 14:18 EDT [facility] Attestation By the signature below, the attending physician certifies that they have personally conducted a gross and/or microscopic examination of the described specimens and rendered or confirmed the above diagnosis. 06/12/2020 14:18 EDT [facility] at [address] Clinical History Microscopic hematuria; R31.29 06/12/2020 14:18 EDT [facility] Gross Description A. 70 ccs of slightly cloudy, pale pink fluid, of which 35 ccs are composed of Cytolyt, were received and processed by selective cellular enhancement technique. 06/12/2020 14:18 EDT [facility] Performing Lab [facility] 06/12/2020 14:18 EDT [facility] Scanned Images 06/12/2020 14:18 EDT [facility] Urine URINE SPECIMEN / Unknown 06/11/2020 8:00 EDT 06/12/2020 7:44 EDT Desmond Rogers MD PATHOLOGY ORDERAB LES [facility] [address] [place] [address] documented in this encounter Visit Diagnoses Diagnosis Other microscopic hematuria documented in this encounter Care Teams Control Tower Operator Relationship Specialty Start Date End Date Garth Marroquin DO [address] [place] [address] PCP - General 10/30/17 documented as of this encounter
--- OUTSIDE RECORDS SUMMARY | 2023-10-08 10:48 | XMS_ITS | Encounter Summary ---
Author Organization [facility] [place] [address] Care Team Providers Care Digital Media Director Name Role Phone Judd Pizarro MD Primary Care Provider [phone] Reason for Visit * Reason Onset Date Comments Appointment 09/27/2021 Encounter Details Date Type Department Care Team (Late st Contact Info) Description 09/27/2021 Telephone Weight and Wellness at [facility] [address] [place] [address] Daria Huynh Appointment Social History [...] on filedocumented in this encounter Care Teams Digital Media Director Relationship Specialty Start Date End Date Judd Pizarro MD [facility] [place] [address] PCP - General Family Medicine 06/20/21 documented as of this encounter
--- OUTSIDE RECORDS SUMMARY | 2023-10-08 10:48 | XMS_ITS | Encounter Summary ---
Author Organization [facility] Address [address] [place] [address] Care Team Providers Care Acute Coordinator Name Role Phone Unavailable Primary Care Provider Unavailabl e Encounter Details Date Type Department Care Team (Late st Contact Info) Description 03/13/2002 Results Only [facility] [address] [place] [address] Zhanna Ho MD [address] [place] [phone] Social History Tobacco Use Types Packs/Day [...] ? MANNIE RODRIGUEZ ? Accession #: ? [id number] : ? 1965 (Age: 36) ??M ?Collect Date: ? 03/13/2002 Location: ? [facility] ? Receive Date: ? 03/15/2002 Provider: ? ZHANNA HO MD Copy to: ?LIT[employer] OWNER OPERATOR ? CYTOLOGIC DIAGNOSIS: ? Urine, voided, cytologic material: - No malignant cells identified. ??See comment. ? COMMENT: ? The specimen is overall of very low cellularity. ??There are rare markedly degenerated but benign appearing transitional cells present. ??(Dr. Faith)/[facility] Document reviewed and electronically signed by: ? [...] Ho MD PATHOLOGY ORDERABLES [facility] [address] [place] [address] documented in this encounter Visit Diagnoses Not on filedocumented in this encounter
--- OUTSIDE RECORDS SUMMARY | 2023-10-08 10:48 | XMS_ITS | Encounter Summary ---
Author Organization [facility] Address [address] [place] [address] Care Team Providers Care Relay Repairer Name Role Phone Garth Berg MD Primary Care Provider Unav ailable Encounter Details Date Type Department Care Team (Late st Contact Info) Description 09/29/2017 Results Only [facility] [phone] Unknown, Provider, Social History Tobacco Use Types [...] on filedocumented in this encounter Care Teams Relay Repairer Relationship Specialty Start Date End Date Garth Berg MD PCP - General 09/29/14 10/29/17 documented as of this encounter
--- OUTSIDE RECORDS SUMMARY | 2023-10-08 10:48 | XMS_ITS | Encounter Summary ---
Author Organization [facility] Address [address] [place] [address] Care Team Providers Care Profiling Machine Setup Operator Name Role Phone Garth Marroquin DO Primary Care Provider [phone] Reason for Visit * Reason Onset Date Comments Appointment Related 11/17/2017 IR BX Encounter Details Date Type Department Care Team (Late st Contact Info) Description 11/17/2017 Telephone [facility] Interventional Radiology - [facility] [address], [place] [phone] Colton Edmond MD [address] [facility], [address] [place] [address] Appointment Related (IR BX ) [...] understand that they will need a ice 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, and that they should plan on [...] on filedocumented in this encounter Care Teams Profiling Machine Setup Operator Relationship Specialty Start Date End Date Garth Marroquin DO [address] [place] [address] PCP - General 10/30/17 documented as of this encounter
--- OUTSIDE RECORDS SUMMARY | 2023-10-08 10:48 | XMS_ITS | Encounter Summary ---
Author Organization [facility] Address [address] [place] [address] Care Team Providers Care Screw Cutter Name Role Phone Garth Marroquin DO Primary Care Provider [phone] Encounter Details Date Type Department Care Team (Late st Contact Info) Description 05/17/2018 Results Only [facility] [phone] Sonny Medina MD [address] [place] [address] Social History Tobacco Use Types [...] MANNIE RODRIGUEZ JR ? Accession #: ? [id number] ? : ? 1965 (Age: 52) ??M [...] (ASCP) 05/17/2018 4:40 PM End of Report [facility] 05/14/2018 16:3 3 EDT 05/17/2018 16:33 EDT Sonny Medina MD PATHOLOGY ORDERABLES [facility] [address] [place] [address] documented in this encounter Visit Diagnoses Not on filedocumented in this encounter Care Teams Screw Cutter Relationship Specialty Start Date End Date Garth Marroquin DO [address] [place] [address] PCP - General 10/30/17 documented as of this encounter
--- OUTSIDE RECORDS SUMMARY | 2023-10-08 10:48 | XMS_ITS | Encounter Summary ---
Author Organization [facility] Address [facility] [place] [address] Care Team Providers Care Clinical Office Technician Name Role Phone Garth Marroquin DO Primary Care Provider [phone] Encounter Details Date Type Department Care Team (Latest Contact Info) Description 05/06/2021 2:00 PM EDT TH Visit (TeleHealth) Weight and Wellness at [address] [address] Nolvia Saleh, RD [facility] [place] [address] Adult BMI 34.0-34.9 kg/sq m; Adult BMI [...] past visits. Please reach out with a My Hood message if you have any questions or [...] Nutrition Change to whole wheat toast or South African Muffin at breakfast. Instead of 4 eggs , have 2 eggs and peanut butter on the South African muffin. When looking for a whole grain [...] was at home at the following address: [address] [place] [address] [address] [facility] [address] Weight Today: 213 lb from home scale [...] hunger. Typical Dietary Intake: B: 2-3 eggs, South African muffin L: dinner leftovers (not sure if [...] Nutrition Change to whole wheat toast or South African Muffin at breakfast. Instead of 4 eggs , have 2 eggs and peanut butter on the South African muffin. Consider changing to HalfNHalf or cream [...] track Change to whole wheat toast or South African Muffin at breakfast. Instead of 4 eggs , have 2 eggs and peanut butter on the South African muffin. When looking for a whole grain [...] initial visit Thank you Nolvia Saleh RD [facility] 60 minutes were spent in [...] adult documented in this encounter Care Teams Clinical Office Technician Relationship Specialty Start Date End Date Garth Marroquin DO [address] [place] [address] PCP - General Family Medicine 03/02/20 06/19/21 documented as of this encounter
--- OUTSIDE RECORDS SUMMARY | 2023-10-08 10:48 | XMS_ITS | Encounter Summary ---
Author Organization [facility] Address [address] [place] [address] Care Team Providers Care Sustainability Coordinator Name Role Phone Garth Marroquin DO Primary Care Provider [phone] Encounter Details Date Type Department Care Team (Late st Contact Info) Description 09/17/2019 Lab Requisition [facility] Pathology & Laboratory Medicine - [address] [address] Outr Resulting Lab, Provider Social History Tobacco [...] MICROBIOLOGY - GENERAL ORDERABLES Performing Organization Address City/State/[facility] Co de Phone Number [facility] [address] [place] [address] * COVID-19 TESTING (09/17/2019 13:37 EDT) COVID-19 rt-PCR Result Negative Negative 09/18/2019 13:41 EDT [facility] Comment: This test has [...] history, and epidemiological information. Performed on the [employer] Fusion instrument Performing Lab [place] [facility] 09/18/2019 13:41 EDT [facility] Swab 09/17/2019 13:3 7 EDT 09/18/2019 9:35 EDT Provider Outr Resulting Lab MICROBIOLOGY - GENERAL ORDERABLES Performing Organization Address [facility] [address]/[facility] Co de Phone Number [facility] [address] [place] [address] documented in this encounter Visit Diagnoses Not on filedocumented in this encounter Care Teams Sustainability Coordinator Relationship Specialty Start Date End Date Garth Marroquin DO [address] [place] [address] PCP - General 10/30/17 documented as of this encounter
--- OUTSIDE RECORDS SUMMARY | 2023-10-08 10:49 | XMS_ITS | Encounter Summary ---
Author Organization [facility] Address [facility] [place] [address] Care Team Providers Care Conveyor Tender Name Role Phone Garth Marroquin DO Primary Care Provider [phone] Reason for Visit * Reason Comments Follow-up weight managment Encounter Details Date Type Department Care Team (Late st Contact Info) Description 10/26/2020 12:00 PM EDT Office Visit Weight and Wellness at [address] [address] Tessie Robles MD [facility] [address] [facility] [place] [address] Class 2 obesity due to excess calories [...] a general recommendation for all patients. Your wood fence erector and provider will help make more specific [...] increasing mindfulness throughout the day. Your health assistant track coach is well-equipped to guide you to find something to look forward to everyday. Eating behaviors: many people benefit from restricting the hours in which they eat. You can choose an eating window of 8-12 hours to start. Make a pact with yourself that you will not take in anything with caloric content outside this window. Your wood fence erector may make further recommendations documented in this encounter Progress Notes * Tessie Robles MD - 10/26/2020 12:00 PM EDTSummary: Visit #2 [facility] Patient Name: [...] is a 1 month folllow-up [facility] visit for this 55 y.o. patient. Weight gain due to: less activity, weight gaining medications, increased intake and frequent snacking on PF Barriers: adentulous Initial visit: 09/27/20 Initial weight: 231# Initial BMI: 38.17 kg/m??. Goal weight: 165 10% loss: 210# Other goals: Improve diabetes Today's weight: 231 Change since prior: 0 [facility] Team: Tessie Robles MD, Justyna Horan RD and Aguilar Lagunas, Health Rn Or Lvn - all pending HPI Moving - busy [...] in the AM - 2-3 pots adds Italian Vanilla Creamer - starts 4AM Nothing to eat until 12noon Noon: [place] on white, lettuce, tomato, meat, cheese, mustard; lightly salted potato chips, iced tea -sweetened and lemon/store bought Snack: potato chips [id number]: TopRamen if Naty is not home (four [...] including notes and labs. Pathway: [facility] PATHWAY - ADULT 09/27/2020 Obesity Medicine [...] []? Night eating ? Movement: [facility]: PAVS 09/27/2020 How many days during [...] 141 09/27/2020 Lab Results Component Value Date [id number] 09/27/2020 25-OH Vit D Total (ng/mL) [...] behavioral interventions, see goals Referrals: Dietitian, Health Rn Or Lvn, AOM: Continue semaglutide for DM and weight [...] 15. 12 min chart review 30 min [id number] Visit time 5 min Documentation time I [...] counseling documented in this encounter Care Teams Conveyor Tender Relationship Specialty Start Date End Date Garth Marroquin DO [address] [place] [address] PCP - General Family Medicine 03/02/20 06/19/21 documented as of this encounter
--- OUTSIDE RECORDS SUMMARY | 2023-10-08 10:49 | XMS_ITS | Encounter Summary ---
Author Organization [facility] [place] [address] Care Team Providers Care Train Crew Member Name Role Phone None Primary Care Provider Unavailabl e Encounter Details Date Type Department Care Team (Late st Contact Info) Description 11/18/2019 Telephone Pulmonology at [facility] [place] [phone] Anna Joe LNA Social History Tobacco Use [...] video visit. Pt states he told the receptionist secretary when he scheduled and the MA that called him that he doesn't have a computer and can't do video visit. Rescheduled pt for 12/18 for phone visit with Dr. Nesbitt. documented in this encounter Plan of Treatment Not on file documented as of this encounter Visit Diagnoses Not on filedocumented in this encounter Care Teams Train Crew Member Relationship Specialty Start Date End Date None None PCP - General 01/22/18 03/01/20 documented as of this encounter
--- OUTSIDE RECORDS SUMMARY | 2023-10-08 10:49 | XMS_ITS | Encounter Summary ---
Author Organization [facility] [place] [address] Care Team Providers Care Vba Programmer Name Role Phone Garth Marroquin DO Primary Care Provider [phone] Encounter Details Date Type Department Care Team (Late st Contact Info) Description 11/21/2020 Ancillary Procedure [place] [phone] Garth Marroquin DO [address] [place], [place] [address] Social History Tobacco Use Types Packs/Day Years [...] CT Chest (11/21/2020 12:00 AM EDT) Narrative [facility] - 12/24/2020 1:29 AM EST This exam is auto-finalizing. It's purpose is for storage only. Garth Marroquin DO [facility] FILM LIBRARY ORD ERABLES Performing Organization Address City/State/[facility] Co de Phone Number [place], [place] documented in this encounter Visit Diagnoses Not on filedocumented in this encounter Care Teams Vba Programmer Relationship Specialty Start Date End Date Garth Marroquin DO [address] [place] [address] PCP - General Family Medicine 03/02/20 06/19/21 documented as of this encounter
--- OUTSIDE RECORDS SUMMARY | 2023-10-08 10:49 | XMS_ITS | Encounter Summary ---
Author Organization [facility] [place] [place] [address] [place] [address] Care Team Providers Care Film Rental Clerk Name Role Phone Garth Marroquin DO Primary Care Provider [phone] Encounter Details Date Type Department Care Team (Late st Contact Info) Description 03/21/2021 Telephone Weight and Wellness at [facility] [address] [place] [address] Martina Jerome, DONOVAN Social History [...] PM EST [facility] Pesticide Use Medical Coordinator Pre-telemedicine Visit Phone Note Pavan Padilla 1965 [x] Patient was not reached Patient was reached and the following information was reviewed/obtained per protocol: [] Confirmed patient name and date of [] Confirmed ZOOM downloaded and functioning [] ZOOM appointment link sent if no MyDH [] Phone number to be reached is: [phone] REVIEW: [] Review of patient medications completed [...] filedocumented in this encounter Care Teams Film Rental Clerk Relationship Specialty Start Date End Date Garth Marroquin DO [address] [place] [address] PCP - General Family Medicine 03/02/20 06/19/21 documented as of this encounter
--- OUTSIDE RECORDS SUMMARY | 2023-10-08 10:49 | XMS_ITS | Encounter Summary ---
Author Organization [facility] [place] [address] Care Team Providers Care Dye Tub Tender Name Role Phone None Primary Care Provider Unavailabl e Reason for Referral * Diagnostic Test (Routine) - Specialty Diagnoses / Procedures Referred By Edis grossman Referred To Contact Radiology Diagnoses Pulmonary nodule Procedures CT Chest Screening Lung Cancer Ector Garcia MD [facility] [place] [address] [facility] [place] [address] Referral ID Status Reason Start Date Expiration Date Visits Requested Visits Authorized [id number] Specialty Service Requested 11/22/2018 11/22/2019 1 1 Reason for Visit * Reason Comments Follow-up Encounter Details Date Type Department Care Team ([facility] st Contact Info) Description 11/22/2018 10:00 AM EDT Office [place] [address] Ector Garcia MD [facility] [place] [address] Pulmonary nodule Social History Tobacco Use [...] Garcia MD - 11/22/2018 10:00 AM EDT [facility] Section of Pulmonary Medicine Outpatient Progress Note [...] MD Pulmonary and Critical Care Medicine Pager #[phone] documented in this encounter Plan of Treatment [...] TECHNIQUE: Noncontrast, low-dose chest CT (LDCT) per [facility] lung cancer screening protocol. COMPARISON: 11/22/2018 noncontrast [...] TECHNIQUE: Noncontrast, low-dose chest CT (LDCT) per [facility] lung cancerscreening protocol. COMPARISON: 11/22/2018 noncontrast chest [...] nodule documented in this encounter Care Teams Dye Tub Tender Relationship Specialty Start Date End Date None None PCP - General 01/22/18 03/01/20 documented as of this encounter
--- OUTSIDE RECORDS SUMMARY | 2023-10-08 10:49 | XMS_ITS | Encounter Summary ---
Author Organization [facility] [place] [address] [place] [address] Care Team Providers Care Kosher Dietary Service Manager Name Role Phone Garth Marroquin DO Primary Care Provider [phone] Encounter Details Date Type Department Care Team (Late st Contact Info) Description 09/17/2020 External Results Weight and Wellness at [facility] [address] [place] [phone] Emilie Galvan, RN Social History Tobacco Use [...] Procedure Name Priority Date/Time Associated Diagnosis Comments [facility] EXTERNAL RESULT PANEL Routine 04/23/2020 CBC (WITH [...] Historical Provider HEMATOLOGY ORDERA BLES * (ABNORMAL) [facility] External Results (04/23/2020) Blood Urea Nitrogen 16([employer] [facility] al Lab) Creatinine 1.2(Exter nal Lab) Sodium 137(Exter nal Lab) Potassium 3.9(Exter nal Lab) Chloride 103(Exter nal Lab) Carbon Dioxide 24([employer] [facility] Lab) Anion Gap 10([employer] [facility] Lab) Calcium 8.8(Exter nal Lab) Protein, Total 7.2(Exter nal Lab) Albumin 3.7(Exter nal Lab) Aspartate Aminotransferase 19([employer] [facility] Lab) Alanine Aminotransferase 39([employer] [facility] Lab) Alkaline Phosphatase 91([employer] [facility] Lab) Bilirubin, Total 0.4(Exter nal Lab) Est Glomerular Filtration Rate >60(Exter nal Lab) Thyroid Stimulating Hormone 1.26(Exte rnal Lab) Glucose 162(ExtH) Troponin-T 0.05(Exte rnal Lab) D-Dimer 354(Exter nal Lab) Lactic Acid 1.6(ExtH) 04/23/2020 Historical Provider POINT OF CARE KENNEY T ORDERABLES documented in this encounter Visit Diagnoses Not on filedocumented in this encounter Care Teams Kosher Dietary Service Manager Relationship Specialty Start Date End Date Garth Marroquin DO [address] [place] [address] PCP - General Family Medicine 03/02/20 06/19/21 documented as of this encounter
--- OUTSIDE RECORDS SUMMARY | 2023-10-08 10:49 | XMS_ITS | Encounter Summary ---
Author Organization [facility] Address [facility] [place] [address] Care Team Providers Care Tile Shader Name Role Phone Garth Marroquin DO Primary Care Provider [phone] Encounter Details Date Type Department Care Team (Late st Contact Info) Description 03/22/2021 8:45 AM EST TH Visit (TeleHealth) Weight and Wellness at [address] [address] Tessie Robles MD [facility] [place] [address] Class 1 obesity due to excess calories [...] Nutrition Change to whole wheat toast or Sammarinese Muffin at breakfast. Instead of 4 eggs , have 2 eggs and peanut butter on the Sammarinese muffin. Consider changing to HalfNHalf or cream [...] a general recommendation for all patients. Your drama therapist and provider will help make more specific [...] increasing mindfulness throughout the day. Your health student success coach is well-equipped to guide you to find something to look forward to everyday. Eating behaviors: many people benefit from restricting the hours in which they eat. You can choose an eating window of 8-12 hours to start. Make a pact with yourself that you will not take in anything with caloric content outside this window. Your drama therapist may make further recommendations Medication management If [...] situation you may contact our office at [phone] to schedule an appointment, and we will [...] seen while via [] Video [] phone [facility] Patient Name: [...] withneuropathy, Osteoarthritis. This is a Visit #4 [facility] visit for this 55 y.o. patient. Weight gain due to: less activity, weight gaining medications, increased intake and frequent snacking on PF Barriers: adentulous Initial visit: 09/27/20 Initial weight: 231# Initial BMI: 38.17 kg/m??. Goal weight: 165 10% loss: 210# Other goals: Improve diabetes Today's weight: 219.75, 216 Change since prior: -3.75# [facility] Team: Tessie Robles MD, Justyna Horan RD and Aguilar Lagunas, Health Senior It Assistant - all pending HPI is worried about his low intake HYPOTENSION - noted on exam today, has monitor at home but has not been following. Asymptomatic. Onamlodipine, lisinopril, hctz. 24hr Dietary 3AM-10AM Coffee with Yakut vanilla creamer 1/2 cup 8AM 4 eggs, Sammarinese muffin - white with butter. 12N Salad [...] to a diff brand, cravings resumed. Pathway: [facility] PATHWAY - ADULT 09/27/2020 Obesity Medicine Activate Adult Biobank Activate PATHWAY DISCUSSION - individual Movement: [facility]: PAVAmauri 09/27/2020 How many days during [...] behavioral interventions, see goals Referrals: Dietitian, Health Senior It Assistant, AOM: Increase semaglutide for DM and weight [...] insulin documented in this encounter Care Teams Tile Shader Relationship Specialty Start Date End Date Garth Marroquin DO [address] [place] [address] PCP - General Family Medicine 03/02/20 06/19/21 documented as of this encounter
--- OUTSIDE RECORDS SUMMARY | 2023-10-08 10:49 | XMS_ITS | Encounter Summary ---
[place] [address] Care Team Providers Care Clinical Psychologist Private Practice Name Role Phone Unknown Primary Care Provider Unavailabl e Reason for Referral * Diagnostic Test (Routine) - Closed Specialty Diagnoses / Procedures Referred By Contac t Referred To Contact Radiology Diagnoses Pulmonary nodule Procedures PET CT Standard Skull Base to Mid-Thigh Amando Robins MD [facility] [place] [address] [place] [address] Referral ID Status Reason Start Date Expiration Date V isits Requested Visits Authorized [id number] Closed Specialty Service Requested 01/15/2018 01/15/2019 1 1 Reason for Visit * Reason Comments Referral * Consultation (Routine) - Closed Specialty Diagnoses / Procedures Referred By Contac t Referred To Contact Pulmonology Diagnoses PULMONARY NODULE Garth Marroquin, DO [address] [place] [address] [facility] [address] [place] [id number] Referral ID Status Reason Start Date Expiration Date V isits Requested Visits Authorized [id number] Closed Consult, Test & Treat Connection Center 12/21/2017 12/21/2018 1 1 Encounter Details Date Type Department Care Team (Late st Contact Info) Description 01/15/2018 8:00 AM EST Office [place] [address] Amando Robins MD [facility] PULMONARY MEDICINE [place] [address] Pulmonary nodule Social History Tobacco Use Types [...] NAME: Pavan Padilla : 1965 MEDICAL RECORD: [id number] DATE OF SERVICE: 01/14/2018 REFERRING PHYSICIAN: Garth Marroquin DO PRIMARY CARE PHYSICIAN: Garth Berg MD (Inactive) Reason for Consultation: PULMONARY NODULE Chief Complaint: I'm here about the spot on my lung UPDATED phone number: [phone] History of Present Illness: Mr. Pavan Padilla [...] he was actually evaluated by Pulmonology in [place] a few months ago. He was evaluated by Dr. Troy Ray ([facility]) on 11/02/17 in their nodule clinic. It was at this appointment that the 10/2017 CT chest was obtained. He did not follow up with [facility] following completion of the 10/2017 CT chest. 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 Interval [...] pulmonary nodule(s). It is reported by the [facility] radiologist to measure 2 CM across in total from the 10/2017 CT chest as compared to the initial 0.8 CM solid vs part-solid lesion seen on a 2015CT abdomen (1.0 CM x 0.9 CM on my measurements). The 2014 report from [facility] also mentions similar findings dating back to [...] after PET/CT ?? All missing imaging from [facility] have been requested ?? Smoking cessation discussed in depth; continue nicotine replacement therapies ?? Remainder of plan as noted above ?? Note to be sent to Garth Berg MD (Inactive) ?? Follow-up with me for potential bronchoscopy with EBUS following the PET/CT Closest Hospital: [facility]; he is 50 minutes from [facility] Amando Robins MD, 01/15/2018, 8:30 AM Pulmonary & Critical Care Pager: [phone] documented in this encounter Plan of Treatment [...] node staging TECHNIQUE: Following IV injection of 69-nyimrb-0-deoxyglucose (FDG) a standard uptake of approximately 60 [...] lymph nodestaging TECHNIQUE: Following IV injection of 44-ahmzvn-7-deoxyglucose (FDG) astandard uptake of approximately 60 minutes, [...] Garcia MD - 01/15/2018 11:59 PM EST Etcor Garcia MD ? 01/20/2018 11:03 AM A. [...] nodule documented in this encounter Care Teams Clinical Psychologist Private Practice Relationship Specialty Start Date End Date Unknown None PCP - General 01/15/18 01/21/18 documented as of this encounter
--- OUTSIDE RECORDS SUMMARY | 2023-10-08 10:49 | XMS_ITS | Encounter Summary ---
Author Organization [facility] [place] [address] Care Team Providers Care Oyster Culler Name Role Phone Garth Marroquin DO Primary Care Provider [phone] Reason for Visit * Reason Onset Date Comments Appointment 04/01/2021 Encounter Details Date Type Department Care Team (Late st Contact Info) Description 04/01/2021 Telephone Weight and Wellness at [facility] [address] [place] [address] Daria Huynh Appointment Social History [...] on filedocumented in this encounter Care Teams Oyster Culler Relationship Specialty Start Date End Date Garth Marroquin DO [address] [place] [address] PCP - General Family Medicine 03/02/20 06/19/21 documented as of this encounter
--- OUTSIDE RECORDS SUMMARY | 2023-10-08 10:49 | XMS_ITS | Encounter Summary ---
Author Organization [facility]ending [facility] Address [facility] [place] [address] Care Team Providers Care Elementary School Librarian Name Role Phone Garth Berg MD Primary Care Provider [phone] Encounter Details Date Type Department Care Team (Latest Contact Info) Description 01/09/2018 - 01/09/2018 11:59 PM EST Hospital Encounter [place] [address] BackerAmando MD [facility] [place] [address] Discharge Disposition: Home Social History Tobacco Use [...] auto-finalizing. Amando SOLIS FILM LIBRARY ORD ERABLES [place], [place] documented in this encounter Visit Diagnoses Not on filedocumented in this encounter Care Teams Elementary School Librarian Relationship Specialty Start Date End Date Garth Berg MD [address] [place] [address] PCP - General General Internal Medicine 03/02/17 documented as of this encounter
--- OUTSIDE RECORDS SUMMARY | 2023-10-08 10:49 | XMS_ITS | Encounter Summary ---
[place] [address] Care Team Providers Care Cyber Security Specialist Name Role Phone Garth Berg MD Primary Care Provider [phone] Encounter Details Date Type Department Care Team (Late st Contact Info) Description 01/14/2018 Tele[place] [address] Judd Johnston II Social History Tobacco Use [...] on filedocumented in this encounter Care Teams Cyber Security Specialist Relationship Specialty Start Date End Date Garth Berg MD [address] [place], [place] [id number] PCP - General General Internal Medicine 03/02/17 documented as of this encounter
--- OUTSIDE RECORDS SUMMARY | 2023-10-08 10:49 | XMS_ITS | Encounter Summary ---
Author Organization [facility] [place] [address] Care Team Providers Care Transportation Agent Name Role Phone None Primary Care Provider Unavailabl e Encounter Details Date Type Department Care Team (Late st Contact Info) Description 09/06/2019 Telephone [place] [address] Corinne Frausto Social History Tobacco Use Types [...] on filedocumented in this encounter Care Teams Transportation Agent Relationship Specialty Start Date End Date None None PCP - General 01/22/18 03/01/20 documented as of this encounter
--- OUTSIDE RECORDS SUMMARY | 2023-10-08 10:49 | XMS_ITS | Encounter Summary ---
Author Organization [facility] [place] [address] Care Team Providers Care Patrol Sergeant Name Role Phone None Primary Care Provider Unavailabl e Encounter Details Date Type Department Care Team (Late st Contact Info) Description 10/04/2019 Telephone [place] [address] Corinne Frausto Social History Tobacco Use Types [...] on filedocumented in this encounter Care Teams Patrol Sergeant Relationship Specialty Start Date End Date None None PCP - General 01/22/18 03/01/20 documented as of this encounter
--- OUTSIDE RECORDS SUMMARY | 2023-10-08 10:49 | XMS_ITS | Encounter Summary ---
Author Organization [place] [address] Care Team Providers Care Health Care Specialist Name Role Phone Garth Marroquin DO Primary Care Provider [phone] Encounter Details Date Type Department Care Team (Late st Contact Info) Description 12/27/2020 Telephone Weight and Wellness at [facility] [address] [place] [address] Emilie Galvan, RN Social History [...] on filedocumented in this encounter Care Teams Health Care Specialist Relationship Specialty Start Date End Date Garth Marroquin DO [address] [place] [address] PCP - General Family Medicine 03/02/20 06/19/21 documented as of this encounter
--- OUTSIDE RECORDS SUMMARY | 2023-10-08 10:49 | XMS_ITS | Encounter Summary ---
Author Organization [facility] [place] [address] Care Team Providers Care Assistant Professor Of Biology Name Role Phone None Primary Care Provider Unavailabl e Encounter Details Date Type Department Care Team (Late st Contact Info) Description 09/29/2019 [place] [address] Arielle Lord, [facility] Social History Tobacco Use Types Packs/Day [...] Notes * Telephone Encounter - Arielle Lord, [facility] - 09/29/2019 3:44 PM EDT GAP Vehicle Dynamics Engineer Pre-Telemedicine Phone Note [] Patient not reached [x] Patient reached and the following information was reviewed/obtained per protocol: [x] Confirmed patient name and date of [x] Confirmed telemedicine ilda (Vidyo and Virtual Visit) is downloaded and functioning [x] Confirmed location of patient - TeleVisit is taking place in [] [place] [] [place] [] If not on [facility], working on signing up for [facility] [x] Confirmed has completed any pre-visit questionnaires [] If has not received required pre-visit questionnaires, send via [facility] [x] Reviewed patient medications ??? nitroGLYcerin (Nitrostat) [...] on filedocumented in this encounter Care Teams Assistant Professor Of Biology Relationship Specialty Start Date End Date None None PCP - General 01/22/18 03/01/20 documented as of this encounter
--- OUTSIDE RECORDS SUMMARY | 2023-10-08 10:49 | XMS_ITS | Encounter Summary ---
Author Organization [facility] Address [facility] [place] [address] Care Team Providers Care Elder Counselor Name Role Phone Garth Marroquin DO Primary Care Provider [phone] Encounter Details Date Type Department Care Team (Late st Contact Info) Description 04/04/2021 Orders Only Weight and Wellness at [place] [address] [place] [address] Tessie Robles MD [facility] [address] [address] Obesity, unspecified classification, unspecified obesity type, unspecified [...] present documented in this encounter Care Teams Elder Counselor Relationship Specialty Start Date End Date Garth Marroquin DO [address] [place] [address] PCP - General Family Medicine 03/02/20 06/19/21 documented as of this encounter
--- OUTSIDE RECORDS SUMMARY | 2023-10-08 10:49 | XMS_ITS | Encounter Summary ---
Author Organization [facility] [place] [address] Care Team Providers Care Social Service Manager Name Role Phone None Primary Care Provider Unavailabl e Encounter Details Date Type Department Care Team (Late st Contact Info) Description 12/19/2019 3:00 PM EST TH Visit (TeleHealth) [place] [address] Mary Alice Nesbitt MD [facility] [place] [address] Tobacco abuse Social History Tobacco Use Types [...] the original note were not included. [facility] Section of Pulmonary and Critical Care Medicine [...] or questions arise. Mary Alice Nesbitt MD Interactive DesignerActivity Specialist Pulmonary [place] [address] documented in this encounter Plan of Treatment Not on file documented as of this encounter Visit Diagnoses Diagnosis Tobacco abuse Tobacco use disorder documented in this encounter Care Teams Social Service Manager Relationship Specialty Start Date End Date None None PCP - General 01/22/18 03/01/20 documented as of this encounter
--- OUTSIDE RECORDS SUMMARY | 2023-10-08 10:49 | XMS_ITS | Encounter Summary ---
Author Organization [facility] Address [facility] [place] [address] Care Team Providers Care Pan Dumper Name Role Phone Garth Berg MD Primary Care Provider [phone] Encounter Details Date Type Department Care Team (Latest Contact Info) Description 12/16/2017 - 12/16/2017 11:59 PM EDT Hospital Encounter [place] [address] MorriserAmando MD [facility] [place] [address] Discharge Disposition: Home Social History Tobacco Use [...] SOLIS FILM LIBRARY ORD ERABLES [place] documented in this encounter Visit Diagnoses Not on filedocumented in this encounter Care Teams Pan Dumper Relationship Specialty Start Date End Date Garth Berg MD [address] [place] [address] PCP - General General Internal Medicine 03/02/17 documented as of this encounter
--- OUTSIDE RECORDS SUMMARY | 2023-10-08 10:49 | XMS_ITS | Encounter Summary ---
Author Organization [facility] [place] [address] Care Team Providers Care Loose Hand Packer Name Role Phone None Primary Care Provider Unavailabl e Encounter Details Date Type Department Care Team (Late st Contact Info) Description 08/31/2019 [place] [address] Corinne Frausto Social History Tobacco Use Types [...] on filedocumented in this encounter Care Teams Loose Hand Packer Relationship Specialty Start Date End Date None None PCP - General 01/22/18 03/01/20 documented as of this encounter
--- OUTSIDE RECORDS SUMMARY | 2023-10-08 10:49 | XMS_ITS | Encounter Summary ---
Author Organization [facility] Address [facility] [place] [address] Care Team Providers Care Cinema Or Theatre Manager Name Role Phone Garth Marroquin DO Primary Care Provider [phone] Encounter Details Date Type Department Care Team (Late st Contact Info) Description 12/21/2020 9:00 AM EDT Office [place] [address] Mary Alice Nesbitt MD [facility] Dr Pulmonary [place] [address] Tobacco abuse; Personal history of nicotine dependence [...] from the original note were not included. [facility] Section of Pulmonary and Critical Care Medicine Outpatient Consultation Date of Encounter: 12/21/2020 Referring Provider: No referring provider defined for this encounter. Reason for Evaluation: Tobacco use/lung nodule History of Present Illness: Mr. Padilla is a 55-year-old male who presents today for a follow-up visit. After his last visit with ri, he had a CT chest for lung [...] screening CT chest in November 2020 at [facility], results of which are unavailable [...] his lung cancer screening with me at [facility]. 2. Tobacco abuse ?? [...] or questions arise. Mary Alice Nesbitt MD Ethnology ProfessorButcher Helper Pulmonary [place] [address] documented in this encounter Plan of Treatment [...] health documented in this encounter Care Teams Cinema Or Theatre Manager Relationship Specialty Start Date End Date Garth Marroquin DO [address] [place] [address] PCP - General Family Medicine 03/02/20 06/19/21 documented as of this encounter
--- OUTSIDE RECORDS SUMMARY | 2023-10-08 10:49 | XMS_ITS | Encounter Summary ---
Author Organization [facility] Address [facility] [place] [address] Care Team Providers Care Cotton Dispatcher Name Role Phone Garth Marroquin DO Primary Care Provider [phone] Reason for Visit * Reason Comments Follow-up weight managment Encounter Details Date Type Department Care Team (Late st Contact Info) Description 12/20/2020 3:30 PM EDT Office Visit Weight and Wellness at [address] [address] Tessie Robles MD [facility] [place] [address] Class 2 obesity due to excess calories [...] Robles MD - 12/20/2020 3:30 PM EDT [facility] [place] Patient Name: Pavan Padilla Date of : [...] Diabetes withneuropathy, Osteoarthritis. This is a folllow-up [facility] visit for this 55 y.o. patient. Weight gain due to: less activity, weight gaining medications, increased intake and [facility] Barriers: adentulous Initial visit: 09/27/20 Initial weight: 231# Initial BMI: 38.17 kg/m??. Goal weight: 165 10% loss: 210# Other goals: Improve diabetes Today's weight: 219.75 Change since prior: -12# [facility] Team: Tessie Robles MD, Justyna Hoarn RD and Aguilar Lagunas, Health Palliative Care Coordinator - all pending HPI is worried [...] to a diff brand, cravings resumed. Pathway: [facility] PATHWAY - ADULT 09/27/2020 Obesity Medicine [...] skips meals []? Night eating ? Movement: [facility]: PAVS 09/27/2020 How many days during [...] behavioral interventions, see goals Referrals: Dietitian, Health Palliative Care Coordinator, AOM: Continue semaglutide for DM and weight [...] type documented in this encounter Care Teams Cotton Dispatcher Relationship Specialty Start Date End Date Garth Marroquin DO [address] [place] [address] PCP - General Family Medicine 03/02/20 06/19/21 documented as of this encounter
--- OUTSIDE RECORDS SUMMARY | 2023-10-08 10:49 | XMS_ITS | Encounter Summary ---
Author Organization [facility] [place] [address] Care Team Providers Care Instruction Assistant Principal Name Role Phone Unknown Primary Care Provider Unavailabl e Encounter Details Date Type Department Care Team (Late st Contact Info) Description 01/15/2018 Telephone [place] [address] Gisela Escamilla Social History Tobacco Use Types [...] on filedocumented in this encounter Care Teams Instruction Assistant Principal Relationship Specialty Start Date End Date Unknown None PCP - General 01/15/18 01/21/18 documented as of this encounter
--- OUTSIDE RECORDS SUMMARY | 2023-10-08 10:49 | XMS_ITS | Encounter Summary ---
Author Organization [facility] [place] [address] Care Team Providers Care Php Magento Developer Name Role Phone None Primary Care Provider Unavailabl e Reason for Referral * Diagnostic Test (Routine) - Closed Specialty Diagnoses / Procedures Referred By Edis grossman Referred To Contact Radiology Diagnoses Pulmonary nodule Procedures CT Chest wo Contrast (Generic) Amando Robins MD [facility] [place] [address] [facility] [place] [address] Referral ID Status Reason Start Date Expiration Date V isits Requested Visits Authorized [id number] Closed Specialty Service Requested 01/22/2018 01/22/2019 1 1 Encounter Details Date Type Department Care Team ([facility] st Contact Info) Description 01/22/2018 Telephone [place] [address] Amando Robins MD [facility] [address] Social History Tobacco Use Types [...] 11:22 AM Pulmonary & Critical Care Pager: [phone] documented in this encounter Plan of Treatment [...] below. ? Electronically signed by: Salud Beltran [facility] ([phone]), at 11/22/2018 9:47 AM Narrative 11/22/2018 9:47 [...] number below. Electronically signed by: Salud Beltran [facility]([phone]), at 11/22/2018 9:47 AM Amando Robins MD IMG CT ORDERABLES documented in this encounter Visit Diagnoses Diagnosis Pulmonary nodule Solitary pulmonary nodule Pulmonary nodule Solitary pulmonary nodule documented in this encounter Care Teams Php Magento Developer Relationship Specialty Start Date End Date None None PCP - General 01/22/18 03/01/20 documented as of this encounter
--- OUTSIDE RECORDS SUMMARY | 2023-10-08 10:49 | XMS_ITS | Encounter Summary ---
Author Organization [facility] [place] [address] Care Team Providers Care Fruit I Farmworker Name Role Phone None Primary Care Provider Unavailabl e Encounter Details Date Type Department Care Team (Late st Contact Info) Description 11/15/2019 Telephone [place] [address] Eva Morin, BRIM SHAPER Social History Tobacco Use Types Packs/Day Years [...] Morin - 11/15/2019 2:50 PM EDT 5C Machine Molder Pre-Telemedicine Phone Note [] Patient not reached [...] on filedocumented in this encounter Care Teams Fruit I Farmworker Relationship Specialty Start Date End Date None None PCP - General 01/22/18 03/01/20 documented as of this encounter
--- OUTSIDE RECORDS SUMMARY | 2023-10-08 10:49 | XMS_ITS | Encounter Summary ---
Author Organization [facility]ly [facility] [place] [address] Care Team Providers Care Airborne Electronics Analyst Name Role Phone Garth Marroquin DO Primary Care Provider [phone] Encounter Details Date Type Department Care Team (Late st Contact Info) Description 12/27/2020 Telephone Weight and Wellness at [facility] [address] [place] [address] Emilie Galvan, RN Social History [...] on filedocumented in this encounter Care Teams Airborne Electronics Analyst Relationship Specialty Start Date End Date Garth Marroquin DO [address] [place] [address] PCP - General Family Medicine 03/02/20 06/19/21 documented as of this encounter
--- OUTSIDE RECORDS SUMMARY | 2023-10-08 10:49 | XMS_ITS | Encounter Summary ---
Author Organization [facility] Address [facility] [place] [address] Care Team Providers Care Doctor Of Audiology Name Role Phone Garth Marroquin DO Primary Care Provider [phone] Encounter Details Date Type Department Care Team (Late st Contact Info) Description 11/28/2020 Ancillary Procedure [place] [address] Mary Alice Nesbitt MD [facility] [place] [address] Social History Tobacco Use Types Packs/Day Years [...] DX Chest (11/28/2020 12:00 AM EDT) Narrative [facility] - 12/21/2020 4:12 PM EDT This exam is auto-finalizing. It's purpose is for storage only. Mary Alice Nesbitt MD IMG FILM LIBRARY ORD ERABLES [place], [place] documented in this encounter Visit Diagnoses Not on filedocumented in this encounter Care Teams Doctor Of Audiology Relationship Specialty Start Date End Date Garth Marroquin DO [address] [place] [address] PCP - General Family Medicine 03/02/20 06/19/21 documented as of this encounter
--- OUTSIDE RECORDS SUMMARY | 2023-10-08 10:49 | XMS_ITS | Encounter Summary ---
Author Organization [facility] [place] [address] Care Team Providers Care Reference And Instruction Librarian Name Role Phone None Primary Care Provider Unavailabl e Encounter Details Date Type Department Care Team (Late st Contact Info) Description 09/02/2019 [place] [phone] Corinne Frausto Social History Tobacco Use Types [...] on filedocumented in this encounter Care Teams Reference And Instruction Librarian Relationship Specialty Start Date End Date None None PCP - General 01/22/18 03/01/20 documented as of this encounter
--- OUTSIDE RECORDS SUMMARY | 2023-10-08 10:49 | XMS_ITS | Encounter Summary ---
[place] [address] Care Team Providers Care Truss Driver Helper Name Role Phone Garth Berg MD Primary Care Provider [phone] Encounter Details Date Type Department Care Team (Late st Contact Info) Description 01/05/2018 Telephone [place] [phone] Gisela Escamilla Social History Tobacco Use Types [...] on filedocumented in this encounter Care Teams Truss Driver Helper Relationship Specialty Start Date End Date Garth Berg MD [address] [place] [address] PCP - General General Internal Medicine 03/02/17 documented as of this encounter
--- OUTSIDE RECORDS SUMMARY | 2023-10-08 10:49 | XMS_ITS | Encounter Summary ---
Author [place] [address] Care Team Providers Care Paint Mixer Hand Name Role Phone Garth Marroquin DO Primary Care Provider [phone] Reason for Visit * Reason Onset Date Comments Appointment 11/14/2020 Encounter Details Date Type Department Care Team (Late st Contact Info) Description 11/14/2020 Telephone Weight and Wellness at [facility] [address] [place] [address] Trini Mcduffie Appointment Social History [...] on filedocumented in this encounter Care Teams Paint Mixer Hand Relationship Specialty Start Date End Date Garth Marroquin DO [address] [place] [address] PCP - General Family Medicine 03/02/20 06/19/21 documented as of this encounter
--- OUTSIDE RECORDS SUMMARY | 2023-10-08 10:49 | XMS_ITS | Encounter Summary ---
Author Organization [place] [id number] Care Team Providers Care Seed Analyst Name Role Phone None Primary Care Provider Unavailabl e Reason for Referral * Diagnostic Test (Routine) - Closed Specialty Diagnoses / Procedures Referred By Contac t Referred To Contact Radiology Diagnoses Pulmonary nodule Procedures PET CT Standard Skull Base to Mid-Thigh Amando Robins MD [facility] [place] [address] [place] [address] Referral ID Status Reason Start Date Expiration Date V isits Requested Visits Authorized [id number] Closed Specialty Service Requested 01/15/2018 01/15/2019 1 1 Reason for Visit * Diagnostic Test (Routine) - Closed Specialty Diagnoses / Procedures Referred By Contac t Referred To Contact Radiology Diagnoses Pulmonary nodule Procedures PET CT Standard Skull Base to Mid-Thigh Amando Robins MD [facility] [place] [place] [address] [place] [address] Referral ID Status Reason Start Date Expiration Date V isits Requested Visits Authorized [id number] Closed Specialty Service Requested 01/15/2018 01/15/2019 1 1 Encounter Details Date Type Department Care Team (Latest Contact Info) Description 01/22/2018 6:21 AM EST - 01/22/2018 11:59 PM [facility] Hospital Encounter Nuclear Medicine at [facility] [place] [address] Amando Robins MD [facility] [place] [address] Pulmonary nodule Discharge Disposition: Home Social History [...] node staging TECHNIQUE: Following IV injection of 14-jowojj-9-deoxyglucose (FDG) a standard uptake of approximately 60 [...] lymph nodestaging TECHNIQUE: Following IV injection of 15-idwfxh-4-deoxyglucose (FDG) astandard uptake of approximately 60 minutes, [...] Glucose, POC 136 65 - 199 mg/dL [facility] Comment: Supplemental ranges: <140 mg/dL before meals <180 mg/dL all other times of the day Blood specimen (specimen) 01/22/2018 6:45 AM EST 01/22/2018 6:45 AM EST Amando Rboins MD POINT OF CARE TEST O RDERABLES [facility] [place] [address] documented in this encounter Visit Diagnoses Diagnosis Pulmonary nodule Solitary pulmonary nodule documented in this encounter Care Teams Seed Analyst Relationship Specialty Start Date End Date None None PCP - General 01/22/18 03/01/20 documented as of this encounter
--- OUTSIDE RECORDS SUMMARY | 2023-10-08 10:49 | XMS_ITS | Encounter Summary ---
[place] [address] Care Team Providers Care Knitted Goods Shaper Name Role Phone None Primary Care Provider Unavailabl e Reason for Referral * Diagnostic Test (Routine) - Closed Specialty Diagnoses / Procedures Referred By Contac t Referred To Contact Radiology Diagnoses Pulmonary nodule Procedures CT Chest wo Contrast (Generic) Amando Robins MD [facility] [place] [address] [facility] [place] [address] Referral ID Status Reason Start Date Expiration Date V isits Requested Visits Authorized [id number] Closed Specialty Service Requested 01/22/2018 01/22/2019 1 1 Reason for Visit * Diagnostic Test (Routine) - Closed Specialty Diagnoses / Procedures Referred By Contac t Referred To Contact Radiology Diagnoses Pulmonary nodule Procedures CT Chest wo Contrast (Generic) Amando Robins MD [facility] [place] [address] [facility] [place] [address] Referral ID Status Reason Start Date Expiration Date V isits Requested Visits Authorized [id number] Closed Specialty Service Requested 01/22/2018 01/22/2019 1 1 Encounter Details Date Type Department Care Team (Latest Contact Info) Description 11/22/2018 7:44 AM EDT - 11/22/2018 11:59 PM EDT Hospital Encounter CT Scan [place] [address] Amando Robins MD [facility] [place] [address] Pulmonary nodule Discharge Disposition: Home Social History [...] nodule documented in this encounter Care Teams Knitted Goods Shaper Relationship Specialty Start Date End Date None None PCP - General 01/22/18 03/01/20 documented as of this encounter
--- OUTSIDE RECORDS SUMMARY | 2023-10-08 10:49 | XMS_ITS | Encounter Summary ---
Author Organization [facility] Address [facility] [place] [address] Care Team Providers Care International Organizer Name Role Phone Garth Berg MD Primary Care Provider [phone] Encounter Details Date Type Department Care Team (Latest Contact Info) Description 01/14/2018 11:48 AM EST - 01/14/2018 11:59 PM [facility] Hospital Encounter [place] [address] Backer, Amando Renteria MD [facility] [place] [address] Discharge Disposition: Home Social History Tobacco Use [...] DX Chest (01/14/2018 11:48 AM EST) Narrative [facility] - 01/14/2018 11:48 AM EST This exam is for storage only and is auto-finalizing. Amando SOLIS FILM LIBRARY ORD ERABLES [place], [place] documented in this encounter Visit Diagnoses Not on filedocumented in this encounter Care Teams International Organizer Relationship Specialty Start Date End Date Garth Berg MD [address] [place] [address] PCP - General General Internal Medicine 03/02/17 documented as of this encounter
--- OUTSIDE RECORDS SUMMARY | 2023-10-08 10:49 | XMS_ITS | Encounter Summary ---
Author Organization [facility] Address [facility] [place] [address] Care Team Providers Care Elementary School Science Teacher Name Role Phone Unknown Primary Care Provider Unavailabl e Encounter Details Date Type Department Care Team (Latest Contact Info) Description 01/15/2018 8:28 AM EST - 01/15/2018 11:59 PM EST Hospital Encounter Pulmonology at [facility] [place] [address] Pulmonary nodule Discharge Disposition: Home Social History [...] nodule documented in this encounter Care Teams Elementary School Science Teacher Relationship Specialty Start Date End Date Unknown None PCP - General 01/15/18 01/21/18 documented as of this encounter
--- OUTSIDE RECORDS SUMMARY | 2023-10-08 10:49 | XMS_ITS | Encounter Summary ---
Author Organization [facility] [place] [address] Care Team Providers Care School Speech Language Pathologist Name Role Phone None Primary Care Provider Unavailabl e Reason for Visit * Diagnostic Test (Routine) - Closed Specialty Diagnoses / Procedures Referred By Edis grossman Referred To Contact Radiology Diagnoses Pulmonary nodule Procedures PET CT Standard Skull Base to Mid-Thigh Amando Robins MD [facility] [place] [address] [place] [address] Referral ID Status Reason Start Date Expiration Date V isits Requested Visits Authorized [id number] Closed Specialty Service Requested 01/15/2018 01/15/2019 1 1 Encounter Details Date Type Department Care Team (Latest Contact Info) Description 01/22/2018 6:21 AM EST - 01/22/2018 11:59 PM [facility] Hospital En[place] [address] Amando Robins MD [facility] [place] [address] Discharge Disposition: Home Social History [...] mCi documented in this encounter Care Teams School Speech Language Pathologist Relationship Specialty Start Date End Date None None PCP - General 01/22/18 03/01/20 documented as of this encounter
--- OUTSIDE RECORDS SUMMARY | 2023-10-08 10:49 | XMS_ITS | Encounter Summary ---
Author Organization [facility] Address [facility] [place] [address] Care Team Providers Care Plastics Seasoner Operator Name Role Phone Garth Marroquin DO Primary Care Provider [phone] Encounter Details Date Type Department Care Team (Late st Contact Info) Description 11/08/2020 Telephone Weight and Wellness at [facility] [address] [place] [address] [facility] [place] [address] Social History Tobacco Use Types Packs/Day Years [...] on filedocumented in this encounter Care Teams Plastics Seasoner Operator Relationship Specialty Start Date End Date Garth Marroquin DO [address] [place] [address] PCP - General Family Medicine 03/02/20 06/19/21 documented as of this encounter
--- OUTSIDE RECORDS SUMMARY | 2023-10-08 10:49 | XMS_ITS | Encounter Summary ---
Author Organization [facility] Address [facility] [place] [address] Care Team Providers Care Emissions Testing And Repair Technician Name Role Phone Judd Pizarro MD Primary Care Provider [phone] Reason for Visit * Reason Comments Medication Refill Encounter Details Date Type Department Care Team (Late st Contact Info) Description 01/22/2021 Refill Weight and Wellness at [address] [address] Tessie Robles MD [facility] [place] [address] Class 2 obesity due to excess calories [...] insulin documented in this encounter Care Teams Emissions Testing And Repair Technician Relationship Specialty Start Date End Date Judd Pizarro MD [address] [place] [address] PCP - General Family Medicine 06/20/21 documented as of this encounter
--- OUTSIDE RECORDS SUMMARY | 2023-10-08 10:49 | XMS_ITS | Encounter Summary ---
Author Organization [facility] gustavo [place] [id number] Care Team Providers Care Insulation Sprayer Name Role Phone None Primary Care Provider Unavailabl e Reason for Referral * Diagnostic Test (Routine) - Specialty Diagnoses / Procedures Referred By Contac t Referred To Contact Radiology Diagnoses Pulmonary nodule Procedures CT Chest Screening Lung Cancer Ector Garcia MD [facility] [place] [address] [facility] [place] [address] Referral ID Status Reason Start Date Expiration Date Visits Requested Visits Authorized [id number] Specialty Service Requested 11/22/2018 11/22/2019 1 1 Reason for Visit * Diagnostic Test (Routine) - Specialty Diagnoses / Procedures Referred By Contac t Referred To Contact Radiology Diagnoses Pulmonary nodule Procedures CT Chest Screening Lung Cancer Ector Garcia MD [facility] [place] [address] [facility] [place] [address] Referral ID Status Reason Start Date Expiration Date Visits Requested Visits Authorized [id number] Specialty Service Requested 11/22/2018 11/22/2019 1 1 Encounter Details Date Type Department Care Team (Latest Contact Info) Description 12/23/2019 8:53 AM EST - 12/23/2019 11:59 PM EST Hospital Encounter CT Scan [place] [facility] [place] [address] Ector Garcia MD [facility] [place] [address] Pulmonary nodule Discharge Disposition: Home Social History [...] signed by: Salud Beltran MD, [facility] ([phone]), at 12/26/2019 6:44 PM Narrative 12/26/2019 6:44 PM EST EXAMINATION: CT CHEST SCREENING LUNG CANCER CLINICAL HISTORY: Lung Cancer Screening Asymptomatic but at high risk for lung cancer TECHNIQUE: Noncontrast, low-dose chest CT (LDCT) per [facility] lung cancer screening protocol. COMPARISON: 11/22/2018 noncontrast [...] TECHNIQUE: Noncontrast, low-dose chest CT (LDCT) per [facility] lung cancerscreening protocol. COMPARISON: 11/22/2018 noncontrast chest [...] below. Electronically signed by: Salud Beltran MD, [facility]([phone]), at 12/26/2019 6:44 PM Ector Garcia MD IMG CT ORDERABLES documented in this encounter Visit Diagnoses Diagnosis Pulmonary nodule Solitary pulmonary nodule documented in this encounter Care Teams Insulation Sprayer Relationship Specialty Start Date End Date None None PCP - General 01/22/18 03/01/20 documented as of this encounter
--- OUTSIDE RECORDS SUMMARY | 2023-10-08 10:49 | XMS_ITS | Encounter Summary ---
Author Organization [facility] [place] [address] Care Team Providers Care Technical Writing Lead/Mgr Name Role Phone Garth Marroquin DO Primary Care Provider [phone] Reason for Visit * Reason Onset Date Comments Medication Refill 01/16/2021 Encounter Details Date Type Department Care Team (Late st Contact Info) Description 01/16/2021 Refill Weight and Wellness at [address] [phone] Martina Jerome, LANDSCAPE ARTIST Class 2 obesity due to excess calories [...] insulin documented in this encounter Care Teams Technical Writing Lead/Mgr Relationship Specialty Start Date End Date Garth Marroquin DO [facility] [place] [address] [place] [address] PCP - General Family Medicine 03/02/20 06/19/21 documented as of this encounter
--- OUTSIDE RECORDS SUMMARY | 2023-10-08 10:49 | XMS_ITS | Encounter Summary ---
Author Organization [facility] Address [facility] [place] [address] Care Team Providers Care Gambling Dealer Name Role Phone Garth Marroquin DO Primary Care Provider Reason for Visit * Reason Comments Establish Care Weight managment * Consultation (Routine) - Closed Specialty Diagnoses / Procedures Referred By Edis grossman Referred To Contact Weight and Wellness Diagnoses Localized adiposity BMI > 30 Garth Marroquin DO [address] [place] [address] [facility] [address] [place] [address] Referral ID Status Reason Start Date Expiration Date V isits Requested Visits Authorized [id number] Closed Consult, [facility] PCP Updated and/or Approved 02/23/2020 02/22/2021 6 6 Encounter Details Date Type Department Care Team (Late st Contact Info) Description 09/27/2020 10:00 AM EDT Office Visit Weight and Wellness at [facility] [address] [place] [address] Tessie Robles MD [facility] [address] HALIM[facility] [address] Class 2 obesity due to [...] dietary choices. You will see a health dramatic coach who will talk to you about [...] 3 business days, please call us at: [phone]. Below is a summary of our discussion [...] on all of these pillars, and each steamer gum candy, will help you set achievable, actionable goals, [...] the disease of obesity) Appetite control The dental scheduler, The GoGetter and The Sleepy Executive 720 - Chuyita video Sleep apnea and weight https://www.sleepfoundation.org/sleep-apnea/xymfwz-xmdm-kgu-sleep-apnea Insulin resistance and weight https://obesitymedicine.org/xjdcxvw-mha-givzsvv-resistance/ https://www.secondnature.io/us/guides/diabetes/fvwsmqh-dwrjhoafzc-kkwewn-gain Dr. Brigido Dai: Fasting as a Therapeutic Option for Weight Loss - TEAM INTERVALTube Https://www.youMTX Connectube.com/watch?v=hj1ckyfd5sJ https://www.youMTX Connectube.com/watch?v=47Jzq3MbHRU The Mediterranean Diet https://Wixel Studios.org/ https://www.health.camp pendleton.edu/blog/g-xnjvhuwzt-hybri-wr-otm-sjghgcyvzhyqz-diet- 6194226545981 An important thing to remember as you [...] a general recommendation for all patients. Your course developer and provider will help make more specific [...] increasing mindfulness throughout the day. Your health dramatic coach is well-equipped to guide you to find something to look forward to everyday. Eating behaviors: many people benefit from restricting the hours in which they eat. You can choose an eating window of 8-12 hours to start. Make a pact with yourself that you will not take in anything with caloric content outside this window. Your course developer may make further recommendations GLP 1 Receptor [...] the same way that they help diabetics. https://www.diabeteseducator.org/practice/practice-tools/kawaqspe-fgyhzjhsku-ffe ls/wco-9-jwybrwlax https://www.diabeteseducator.org/docs/default-source/practice/educator-tools/glp -1-medications/understanding_glp_final.pdf?sfvrsn=2 The following informational sheet will provide instruction for how to store and inject the injectable forms of GLP1 Fito. https://www.diabeteseducator.org/practice/practice-tools/gqxenrpu-kgsettsrzl-zzh ls/btj-0-qslrkjkpq documented in this encounter Progress Notes * Tessie Robles MD - 09/27/2020 10:00 AM EDTSummary: initial consult [facility] Patient Name: Pavan Padilla Date of : 1965 Age: 55 y.o. Referring provider: Garth Marroquin Dear Garth Marroquin DO, Thank you for referring Pavan Padilla to the [facility] for a consultationfor obesity management. I reviewed [...] again for allowing the [facility] to join [place]'s healthcare team. SUMMARY OF VISIT: Pavan Padilla presented to the [facility] for a consultative visit regarding obesity [...] medications: Glipizide, gabapentin, amitriptyline Referrals: [x]Nutrition [x]Health dramatic coach []Sleep medicine []Bariatric surgery []GI []Behavioral health []ACT group [x]Research coordinator CHIEF COMPLAINT: Management of excess weight HISTORY OF PRESENT ILLNESS: Weight History: [facility] Weight History 09/27/2020 What is the [...] medications, increased intake and frequent snacking on [facility] Importance 09/27/2020 How important is it [...] a diff brand, cravings resumed. 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 male with uncontrolled obesity who presented to [facility] today for medical evaluation with associated [...] [x]Consider ACT, for unplanned eating event with [facility] Activity: provided resistance bands and booklet Barriers: [...] behavioral interventions, see goals Referrals: Dietitian, Health Crimping Press Operator, AOM: D/c glipizide and start semaglutide for [...] changes that are significant. Care pathway: Pathway: [facility] PATHWAY - ADULT 09/27/2020 Adult Biobank Activate Return in about 4 weeks (around 10/25/2020) for MD Nagel or clinic, //RD 1-2 wks, //HC 2wks after RD. I spoke with Pavan about opportunities to participate in research and to be contacted by our research entry level administrative assistant. They indicated that they are: [x] INTERESTED [] NOT INTERESTED // [] NOT ADDRESSED [facility] Initial Responses 09/27/2020 URICA - Readiness Score 12.33 (Preparation State) WEL-SF Total Scores 72 PHQ-2 SubScore 0 (Brief screen negative) GAD2 Subscore 0 (Brief screen negative) PROMIS 10 Physical Scores 37.4 PROMIS 10 Mental Scores 48.3 Total REAP-S Scores 17 TFEQ - Uncontrolled Eating (UE) 29.62 TFEQ-Cognitive Restraint (CR) 11 TFEQ-Emotional Eating 27.77 Food Insecurity Score 2 [place] Category I Result 1 (Negative) [place] Category II Result 1 (Negative) [place] Category III 1 (Positive) [place] Sleep Apnea Total 3 (High Risk) Schooling [...] LDL Cholesterol, Direct (09/27/2020 11:41 AM EDT) [facility] LDL Cholesterol, Direct 79 mg/dL [facility] Comment: Lowest Risk: <100 mg/dL Lower Risk: 100-129 mg/dL Borderline High Risk: 130-159 mg/dL High Risk: 160-189 mg/dL Very High Risk: >bg=303 mg/dL Blood 09/27/2020 11:4 1 AM EDT 09/27/2020 12:48 PM EDT Narrative Resulting Agency Comment Spec In Lab Tessie Robles MD CHEMISTRY ORDERABLES Performing Organization Address City/[facility] Co de Phone Number [facility] [place] [address] * Biorepository Request (09/27/2020 11:41 AM EDT) [facility] Biorepository Hold Sample in lab [facility] Blood 09/27/2020 11:4 1 AM EDT 09/27/2020 1:25 PM EDT Narrative Resulting Agency Comment Spec In Lab Tessie Robles MD MOLECULAR ORDERABLES Performing Organization Address City/[facility]/ZIP Co de Phone Number [facility] [place] [address] * Hepatic Function Panel (09/27/2020 11:41 AM EDT) [facility] Protein, Total 6.8 6.1 - 8.0 gm/dL [...] MD CHEMISTRY ORDERABLES Performing Organization Address City/State/[facility] Co de Phone Number [facility] [place] [address] * Lipid Panel (Reflex Direct LDL) (09/27/2020 11:41 AM EDT) [facility] Cholesterol, Total 188 mg/dL [facility] Comment: Lower Risk: <200 mg/dL Average Risk: 200-239 mg/dL Higher Risk: >rt=183 mg/dL Triglyceride 668 mg/dL [facility] Comment: Average Risk/Lower Risk: <150 mg/dL Borderline High Risk: 150-199 mg/dL High Risk: 200-499 mg/dL Very High Risk: >zb=167 mg/dL HDL Cholesterol 22 mg/dL [facility] Comment: Males: ?? Higher Risk: <40 mg/dL Females: ?? Higher Risk: <50 mg/dL LDL Cholesterol Not Calculated [facility] Comment: Lowest Risk: <100 mg/dL Lower Risk: 100-129 mg/dL Borderline High Risk: 130-159 mg/dL High Risk: 160-189 mg/dL Very High Risk: >mh=893 mg/dL Calculated LDL value is not valid for triglycerides greater than 400 mg/dl. Cholesterol/HDL Ratio 8.5 ratio [facility] Lipid Interpretation See Note [facility] Comment: Lipid management should be guided by a patient? s ASCVD risk, goals and preferences. ACC/AHA Guidelines recommend high intensity statin if clinical ASCVD or LDL greater than or equal to 190 mg/dL. http://ContentForest.com/DFH-KUZ-Fidoqepwu Adults aged 40-75 with LDL 70-189 mg/dL should have their 10 year ASCVD risk estimated with the ACC/AHA ASCVD risk drapery and upholstery estimator http://tools.acc.org/BORQJ-Tcqk-Gkjmyujny/ Statin should be discussed if risk greater [...] MD CHEMISTRY ORDERABLES [facility] [place] [address] * (ABNORMAL) Hemoglobin A1c (09/27/2020 11:41 AM [...] Mellitus, Diabetes Care 2013; 36: Suppl. 1, S67-33 Estimated Average Glucose 182 mg/dL [facility] [...] into estimated average glucose values. ??Diabetes Care 2008:31(8):2644-4991. Blood 09/27/2020 11:4 1 AM EDT 09/27/2020 12:47 PM EDT Narrative Resulting Agency Comment Spec In Lab Tessie Robles MD CHEMISTRY ORDERABLES [facility] [place] [address] * Ferritin (09/27/2020 11:41 AM EDT) [facility] Ferritin 141 30 - 400 ng/mL [facility] Comment: Pediatric reference ranges not verified at [facility], interpret with caution. Reference ranges for females greater than 50 years of age approach values for men, i.e., 30-400 ng/mL. Blood 09/27/2020 11:4 1 AM EDT 09/27/2020 4:28 PM EDT Narrative Resulting Agency Comment Spec In Lab Tessie Robles MD CHEMISTRY ORDERABLES Performing Organization Address City/[facility]/ZIP Co de Phone Number [facility] [place] [address] * Vitamin B12 (09/27/2020 11:41 AM EDT) Vitamin B12 423 232 - 1,245 pg/mL [facility] Blood 09/27/2020 11:4 1 AM EDT 09/27/2020 4:28 PM EDT Narrative Resulting Agency Comment Spec In Lab Tessie Robles MD CHEMISTRY ORDERABLES Performing Organization Address [facility] Co de Phone Number [facility] [place] [address] * Vitamin D, 25-Hydroxy (09/27/2020 11:41 AM EDT) Vitamin D Total 25 OH 41 21 - 100 ng/mL [facility] Vit D Interp Sufficient [facility] Blood 09/27/2020 11:4 1 AM EDT 09/27/2020 4:28 PM EDT Narrative Resulting Agency Comment Spec In Lab Tessie Robles MD CHEMISTRY ORDERABLES Performing Organization Address City/[facility]/ZIP Co de Phone Number [facility] [place] [address] * (ABNORMAL) POCT glycated hemoglobin, total (HA1C) [...] disorder documented in this encounter Care Teams Gambling Dealer Relationship Specialty Start Date End Date Garth Marroquin DO [address] [place] [address] PCP - General Family Medicine 03/02/20 06/19/21 documented as of this encounter
--- OUTSIDE RECORDS SUMMARY | 2023-10-08 10:49 | XMS_ITS | Encounter Summary ---
Author Organization [facility] [place] [address] Care Team Providers Care Choir Singer Name Role Phone Garth Marroquin DO Primary Care Provider [phone] Encounter Details Date Type Department Care Team (Late st Contact Info) Description 12/21/2020 Telephone Weight and Wellness at [facility] [address] [place] [address] Martina Jerome CMA Social History [...] on filedocumented in this encounter Care Teams Choir Singer Relationship Specialty Start Date End Date Garth Marroquin DO [address] [place] [address] PCP - General Family Medicine 03/02/20 06/19/21 documented as of this encounter
--- OUTSIDE RECORDS SUMMARY | 2023-10-08 10:49 | XMS_ITS | Encounter Summary ---
[place] [address] Care Team Providers Care Slitter Cut Off Operator Name Role Phone Garth Berg MD Primary Care Provider [phone] Encounter Details Date Type Department Care Team (Latest Contact Info) Description 11/06/2017 - 11/06/2017 11:59 PM EDT Hospital Encounter [place] [address] Garth Marroquin, DO [address] [place], [place] [id number] Discharge Disposition: Home Social History Tobacco Use [...] CT Chest (11/06/2017 12:00 AM EDT) Narrative [facility] - 12/21/2017 10:06 AM EST This exam is for storage only and is auto-finalizing. Garth Marroquin DO [place] FILM LIBRARY ORD ERABLES [place], [place] documented in this encounter Visit Diagnoses Not on filedocumented in this encounter Care Teams Slitter Cut Off Operator Relationship Specialty Start Date End Date Garth Berg MD [address] [place] [address] PCP - General General Internal Medicine 03/02/17 documented as of this encounter
--- OUTSIDE RECORDS SUMMARY | 2023-10-08 10:49 | XMS_ITS | Encounter Summary ---
Author Organization [facility] [place] [address] Care Team Providers Care Button Cutter Name Role Phone Garth Marroquin DO Primary Care Provider [phone] Encounter Details Date Type Department Care Team (Late st Contact Info) Description 09/27/2020 Notes Only Weight and Wellness at [address] [address] Eldiia Mallory Social History Tobacco Use Types Packs/Day [...] Date: 09/27/20 PI/Designee: Dr. Leonidas Scott/Elidia Mallory [facility] [id number]: [facility] Biorepository VELOS: [id number] Pavanthuy Padilla consented via electronic consent to [...] on filedocumented in this encounter Care Teams Button Cutter Relationship Specialty Start Date End Date Garth Marroquin DO [address] [place] [address] PCP - General Family Medicine 03/02/20 06/19/21 documented as of this encounter
--- OUTSIDE RECORDS SUMMARY | 2023-10-08 10:49 | XMS_ITS | Encounter Summary ---
Author Organization [facility] [place] [address] Care Team Providers Care Resort Manager Name Role Phone Garth Marroquin DO Primary Care Provider [phone] Reason for Visit * Reason Onset Date Comments Appointment 10/16/2020 Encounter Details Date Type Department Care Team (Late st Contact Info) Description 10/16/2020 Telephone Weight and Wellness at [address] [address] Trini Mcduffie Appointment Social History [...] on filedocumented in this encounter Care Teams Resort Manager Relationship Specialty Start Date End Date Garth Marroquin DO [facility] [place] [place] [address] PCP - General Family Medicine 03/02/20 06/19/21 documented as of this encounter
--- OUTSIDE RECORDS SUMMARY | 2023-10-08 10:50 | XMS_ITS | Encounter Summary ---
Author Organization [facility] [place] [address] Care Team Providers Care Snap Attacher Name Role Phone Judd Scott MD Primary Care Provider [phone] Encounter Details Date Type Department Care Team (Latest Contact Info) Description 05/29/2014 - 05/29/2014 11:59 PM EDT Hospital Encounter [place] [address] Amando Robins MD [facility] [place] [address] Discharge Disposition: Home Social History Tobacco Use [...] & Pelvis (05/29/2014 12:00 AM EDT) Narrative [facility] - 01/14/2018 11:46 AM EST This exam is for storage only and is auto-finalizing. Amando Robins MD G FILM LIBRARY ORD ERABLES Performing Organization Address City/State/[facility] Co de Phone Number [facility] [place], [place] documented in this encounter Visit Diagnoses Not on filedocumented in this encounter Care Teams Snap Attacher Relationship Specialty Start Date End Date Judd Scott MD PCP - General 01/08/10 03/01/17 documented as of this encounter
--- OUTSIDE RECORDS SUMMARY | 2023-10-08 10:50 | XMS_ITS | Encounter Summary ---
[place] [address] Care Team Providers Care Crowning Hammer Operator Name Role Phone Garth Berg MD Primary Care Provider [phone] Encounter Details Date Type Department Care Team (Late st Contact Info) Description 03/20/2017 External [place] [address] Social History Tobacco Use Types Packs/Day Years [...] on filedocumented in this encounter Care Teams Crowning Hammer Operator Relationship Specialty Start Date End Date Garth Berg MD [address] [place] [address] PCP - General General Internal Medicine 03/02/17 documented as of this encounter
--- OUTSIDE RECORDS SUMMARY | 2023-10-08 10:50 | XMS_ITS | Encounter Summary ---
Author Organization [facility] Address [facility] [place] [address] Care Team Providers Care Poultry Cleaner Name Role Phone Judd Scott MD Primary Care Provider [phone] Encounter Details Date Type Department Care Team (Latest Contact Info) Description 02/23/2017 - 02/23/2017 11:59 PM EST Hospital Encounter [place] [address] Jose Olivares MD [facility] [place] [address] Discharge Disposition: Home Social History Tobacco Use [...] nuclear medicine (02/23/2017 12:00 AM EST) Narrative [facility] - 03/20/2017 12:47 PM EST This exam is for storage only and is auto-finalizing. Jose Olivares MD IMG FILM LIBRARY ORD ERABLES [place], [place] documented in this encounter Visit Diagnoses Not on filedocumented in this encounter Care Teams Poultry Cleaner Relationship Specialty Start Date End Date Judd Scott MD PCP - General 01/08/10 03/01/17 documented as of this encounter
--- OUTSIDE RECORDS SUMMARY | 2023-10-08 10:50 | XMS_ITS | Encounter Summary ---
Author Organization [facility] [place] [address] Care Team Providers Care Cork Painter And Grader Name Role Phone Judd Scott MD Primary Care Provider [phone] Encounter Details Date Type Department Care Team (Late st Contact Info) Description 08/16/2013 Orders [place] [address] Warren He MD [facility] [place] [address] Social History Tobacco Use Types Packs/Day Years [...] is a Non-reportable exam Warren He MD [facility] FILM LIBRARY ORD ERABLES documented in this encounter Visit Diagnoses Not on filedocumented in this encounter Care Teams Cork Painter And Grader Relationship Specialty Start Date End Date Judd Scott MD PCP - General 01/08/10 03/01/17 documented as of this encounter
--- OUTSIDE RECORDS SUMMARY | 2023-10-08 10:50 | XMS_ITS | Encounter Summary ---
[place] [address] Care Team Providers Care Migratory Worker Name Role Phone Judd Scott MD Primary Care Provider [phone] Reason for Visit * Reason Onset Date Comments Referral 01/23/2014 Encounter Details Date Type Department Care Team (Late st Contact Info) Description 01/23/2014 Telephone [place] [address] Svetlana Frey Referral Social History Tobacco Use [...] middle drawer. * Telephone Encounter - Svetlana rFey - 01/23/2014 2:36 PM EST Ask the patient to verify the following: Full Name: Pavanthuy Padilla : 1965 Phone number: [phone] (home) Mailing address: [address] [facility] [address] Age: 48 y.o. Appointment date: 2ND OPINION [...] When? Where? Notes: [address] SCHERER PH:[phone] [place], [place] PH: [phone] FAX: [phone] [facility] UTILITY BAG ASSEMBLER ELEMENTARY EDUCATION TUTOR MRI: No CT Scan: No Physical therapy: No Injection: No Other diagnostic studies: No Other therapies: No Other specialist(s): No If 2nd (+) opinion get info on previous: Yes - What? When? Where? Who? Notes: [facility] [address] DR. SCHERER PH:[phone] DR. SCHERER Have you had any surgeries for this issue? No Did surgery include placement of implant/hardware or fixation of any kind? No Do you use any type of orthotics? No Additional injuries: Advanced Directive Do you have an Advanced Directive on file: No - Please bring a copy to your next appointment. Advance Directive ship's pilot: N/A MyDH Do you have a MyD account? No - Patient Declined documented in this encounter Plan of Treatment Not on file documented as of this encounter Visit Diagnoses Not on filedocumented in this encounter Care Teams Migratory Worker Relationship Specialty Start Date End Date Judd Scott MD PCP - General 01/08/10 03/01/17 documented as of this encounter
--- OUTSIDE RECORDS SUMMARY | 2023-10-08 10:50 | XMS_ITS | Encounter Summary ---
[place] [address] Care Team Providers Care Sharepoint Specialist Name Role Phone Judd Scott MD Primary Care Provider [phone] Reason for Visit * Reason Onset Date Comments Referral 03/01/2014 Encounter Details Date Type Department Care Team (Late st Contact Info) Description 03/01/2014 Telephone [place] [address] Faiza Kline Referral Social History Tobacco Use [...] Received 12 pages of office notes from [facility], for the patients upcoming [...] on filedocumented in this encounter Care Teams Sharepoint Specialist Relationship Specialty Start Date End Date Judd Scott MD PCP - General 01/08/10 03/01/17 documented as of this encounter
--- OUTSIDE RECORDS SUMMARY | 2023-10-08 10:50 | XMS_ITS | Encounter Summary ---
Author Organization [facility] Address [facility] [place] [address] Care Team Providers Care Director Of Volunteer Services Name Role Phone Garth Berg MD Primary Care Provider [phone] Encounter Details Date Type Department Care Team (Latest Contact Info) Description 03/19/2017 - 03/19/2017 11:59 PM EST Hospital Encounter [place] [address] Jose Olivares MD [facility] [place] [address] Discharge Disposition: Home Social History Tobacco Use [...] DX Chest (03/19/2017 12:00 AM EST) Narrative [facility] - 03/20/2017 12:46 PM EST This exam is for storage only and is auto-finalizing. Jose Olivares MD IMG FILM LIBRARY ORD ERABLES [place], [place] documented in this encounter Visit Diagnoses Not on filedocumented in this encounter Care Teams Director Of Volunteer Services Relationship Specialty Start Date End Date Garth Berg MD [address] [place] [address] PCP - General General Internal Medicine 03/02/17 documented as of this encounter
--- OUTSIDE RECORDS SUMMARY | 2023-10-08 10:50 | XMS_ITS | Encounter Summary ---
Author Organization [facility] [place] [address] Care Team Providers Care Corporate Librarian Name Role Phone Judd Scott MD Primary Care Provider [phone] Encounter Details Date Type Department Care Team (Latest Contact Info) Description 11/22/2014 - 11/22/2014 11:59 PM EDT Hospital Encounter [place] [address] Amando Robins MD [facility] [place] [address] Discharge Disposition: Home Social History Tobacco Use [...] DX Chest (11/22/2014 12:00 AM EDT) Narrative [facility] - 01/14/2018 11:47 AM EST This exam is for storage only and is auto-finalizing. Amando Robins MD [facility] FILM LIBRARY ORD ERABLES [place], [place] documented in this encounter Visit Diagnoses Not on filedocumented in this encounter Care Teams Corporate Librarian Relationship Specialty Start Date End Date Judd Scott MD PCP - General 01/08/10 03/01/17 documented as of this encounter
--- OUTSIDE RECORDS SUMMARY | 2023-10-08 10:50 | XMS_ITS | Encounter Summary ---
Author Organization [facility] [place] [address] Care Team Providers Care Cold Rolling Supervisor Name Role Phone Judd Scott MD Primary Care Provider [phone] Encounter Details Date Type Department Care Team (Late st Contact Info) Description 05/22/2011 Orders Only Hematology Oncology at [address] [id number] Jm Meyer MD [address] [place] [id number] Social History Tobacco Use Types Packs/Day Years [...] on filedocumented in this encounter Care Teams Cold Rolling Supervisor Relationship Specialty Start Date End Date Judd Scott MD PCP - General 01/08/10 03/01/17 documented as of this encounter
--- OUTSIDE RECORDS SUMMARY | 2023-10-08 10:50 | XMS_ITS | Encounter Summary ---
[facility] Organization [facility] Address [facility] [place] [address] Care Team Providers Care Home Office Claim Specialist Name Role Phone Judd Scott MD Primary Care Provider [phone] Encounter Details Date Type Department Care Team (Latest Contact Info) Description 02/05/2017 - 02/05/2017 11:59 PM EST Hospital Encounter [place] [address] Jose Olivares MD [facility] [place] [address] Discharge Disposition: Home Social History Tobacco Use [...] DX Chest (02/05/2017 12:00 AM EST) Narrative [facility] - 03/20/2017 12:49 PM EST This exam is for storage only and is auto-finalizing. Jose Olivares MD IMG FILM LIBRARY ORD ERABLES [place], [place] documented in this encounter Visit Diagnoses Not on filedocumented in this encounter Care Teams Home Office Claim Specialist Relationship Specialty Start Date End Date Judd Scott MD PCP - General 01/08/10 03/01/17 documented as of this encounter
--- OUTSIDE RECORDS SUMMARY | 2023-10-08 10:50 | XMS_ITS | Encounter Summary ---
Author Organization [facility] [place] [address] Care Team Providers Care Medical Biller/Coder Name Role Phone Garth Berg MD Primary Care Provider [phone] Reason for Visit * Auth/Cert Specialty Diagnoses / Procedures Referred By Contac t Referred To Contact Diagnoses Unstable angina [place] ?CAD Procedures CARDIAC CATHETERIZATION Referral ID Status Reason Start Date Expiration Date Visits Re quested Visits Authorized [id number] 1 1 Encounter Details Date Type Department Care Team (Late st Contact Info) Description 03/20/2017 4:00 PM EST - 03/20/2017 5:00 PM EST Surgery [employer] [place] [id number] Fantasma Rubalcava MD [facility] [place] [address] CARDIAC CATHETERIZATION Social History Tobacco Use Types [...] Mannie Padilla Patient Age: 51 y.o. Language: Afghan Race: Ethnicity: Admit date: 03/20/2017 Discharge date [...] please contact your inpatient physician through the [facility] Materials Management Manager . Issues afterhours and on weekends will be handled by the microfilm camera operator on-call. Discharge Diagnoses (Hospital Problems) and [...] (>100 pack years) presenting in transfer from [facility] with unstable angina. He presented to the [...] weeks. ?? Emergency contact: Gayatri Suarez - [phone] (Mother) ?? OSH labs prior to transfer: [...] up with your primary care provider and lapping machine set up operator for further instructions on your medication regimen. Primary care follow up: To be determined Follow-Up Appointments Future Appointments Date Time Provider Department Center 04/16/2017 12:00 PM Laverne [facility] MD [facility] Date and Time Provider and Specialty Location Your Inpatient Doctor(s) at [facility]: Dr. Jose West General Instructions None Future Appointments and Orders Future Appointments Provider Department Dept Phone 04/16/2017 12:00 PM Laverne Coon MD Cardiology at [place] [phone] Discharge References/Attachments None documented in this encounter [...] up with your primary care provider and lapping machine set up operator for further instructions on your medication regimen. Primary care follow up: To be determined Follow-Up Appointments Future Appointments Date Time Provider Department Center 04/16/2017 12:00 PM Laverne Coon MD [facility] Date and Time Provider and Specialty Location Your Inpatient Doctor(s) at [facility]: Dr. Jose West documented in this encounter [...] removed and telemetry disconnected. Patient brought to [facility] via wheelchair. * Jose Olivares MD - [...] (>100 pack years) presenting in transfer from [facility] with unstable angina. Active Problems: Active Hospital [...] (>100 pack years) presenting in transfer from [facility] with unstable angina. Plan: Cardiac catheterization shows [...] He will follow-up with his PCP and lapping machine set up operator as an outpatient. Jim West MD, PGY-1 Cardiology S1 (pgr. [phone]) CARDIOLOGY STAFF NOTE Mannie Padilla is a [...] this and is ambulatory. Jose Olivares MD, [facility], [facility] Staff Dolphin Trainer pager [phone] * Savita Aquilino X - 03/21/2017 12:02 [...] obtained. Family at bedside. Patient brought to slab worker. Patient returned from slab worker. TR band in place. Fluids infusing as [...] in the chart. Plan/ Coronary Angio per spectrograph operator preference No c/i to long-term DAPT Moderate sedation MAGUI Mijares MD documented in this encounter H&P Notes * Jose Olivares MD - 03/20/2017 1:39 PM EST Cardiology Admission History and Physical Patient Name: Mannie Padilla Service: Cardiology S1 Team Responsible Attending: Jose Olivares MD PCP: Garth Berg MD PCP phone #: [phone] ID/Chief Complaint: 51 y.o. man with history [...] (>100 pack years) presenting in transfer from [facility] with unstable angina. He presented to the [...] recent weeks. Emergency contact: Gayatri Suarez - [phone] (Mother) OSH labs prior to transfer: CBC: [...] in the last 7068 hours. Invalid input(s): [id number] Heme: No results for input(s): LDH, HAPTOGLOBIN, [...] (>100 pack years) presenting in transfer from [facility] with unstable angina. He is currently without chest pain and has successfully been weaned off nitroglycerine drip. Given presentation, risk factorsand recent positive stress test, we will proceed with cardiac catheterization. Details of plan as follows. PLAN: Admit to Cardiology, S1 Team Pager # [phone] # ACS - unstable angina - Medications [...] therapies. 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 Scanning Provider MEDIA MGR SCAN EXT O RDR/RSLT * POCT Glucose (03/21/2017 11:58 AM EST) Glucose, POC 104 65 - 199 mg/dL [facility] Comment: Supplemental ranges: <140 mg/dL before meals <180 mg/dL all other times of the day Blood specimen (specimen) 03/21/2017 11:58 AM EST 03/21/2017 11:58 AM EST Jose Olivares MD POINT OF CARE TEST O DEANN Performing Organization Address City/[facility]/ZIP Co de Phone Number [facility] [place] [address] * POCT Glucose (03/21/2017 7:39 AM EST) Glucose, POC 127 65 - 199 mg/dL [facility] Comment: Supplemental ranges: <140 mg/dL before meals <180 mg/dL all other times of the day Blood specimen (specimen) 03/21/2017 7:39 AM EST 03/21/2017 7:39 AM EST Jose Olivares MD POINT OF CARE TEST O RDERABLES [facility] [place] [address] * Magnesium (03/21/2017 5:07 AM EST) Magnesium 0.89 0.69 - 1.07 mmol/L [facility] Blood specimen (specimen) Venous Draw / Unknown 03/21/2017 5:07 AM EST 03/21/2017 5:30 AM EST Narrative Resulting Agency Comment Spec In Lab Jim West MD CHEMISTRY SALO SALGADO [facility] [place] [address] * (ABNORMAL) Basic Metabolic Panel (non-fasting) (03/21/2017 5:07 AM EST) Glucose 121 65 - 199 mg/dL [facility] Comment:Diabetes: >=200 mg/d L plus symptoms Blood Urea Nitrogen 19 10 - 20 mg/dL [facility] [...] 98 - 107 mmol/L [facility] Carbon Dioxide 25 22 - 31 mmol/L [facility] Anion Gap 11 5 - 15 mmol/L [facility] Calcium 9.2 8.5 - 10.5 mg/dL [facility] Est Glomerular Filtration Rate 57(L) >=60 [facility] Comment: The reported eGFR should be multiplied by 1.2 for patients. The MDRD is not an appropriate measure of renal function for patients with body mass extremes or in patients with acute kidney failure. http://ThermalTherapeuticSystems.Plix/DHnkdep http://ThermalTherapeuticSystems.Plix/DHMCnkf Blood specimen (specimen) 03/21/2017 5:07 AM EST 03/21/2017 5:29 AM EST Narrative Resulting Agency Comment Spec In Lab Jose Olivares MD CHEMISTRY ORDERABLES Performing Organization Address City/[facility]/ZIP Co de Phone Number [facility] [place] [address] * (ABNORMAL) Differential, Automated (03/21/2017 5:07 AM EST) Neutrophil % 57.4 % [facility] Neutrophil Absolute 4.37 1.70 - 6.10 x10(3)/mc L [facility] Lymph % 23.6 % [facility] Lymphocytes Abs 1.8 0.9 - 3.2 x10(3)/mc L [facility] Monocyte % 13.2 % [facility] Monocyte Abs 1.0(H) 0.3 - 0.9 x10(3)/mc L [facility] Eos % 3.2 % [facility] Eosinophils Abs 0.2 0.0 - 0.4 x10(3)/ L [facility] Basophil % 1.2 % [facility] Baso Absolute 0.1 0.0 - 0.1 x10(3)/mc L [facility] Immature Gran % 1.40 % [facility] Comment: Immature granulocytes(IG's)percentage and absolute count will include metamyelocytes, myelocytes, and promyelocytes. Blood smears from CBCs yielding IG's will be scanned manually for concordance. If this scan disagrees with the automated IG or if promyelocytes are noted, a manual differential will be performed. Immature Gran Absolute 0.11(H) 0.00 - 0.04 x10(3)/mc L [facility] Blood specimen (specimen) 03/21/2017 5:07 AM EST 03/21/2017 5:28 AM EST Narrative Resulting Agency Comment Spec In Lab Noelle Hearn MD HEMATOLOGY ORDERABLE S Performing Organization Address City/[facility]/ZIP Co de Phone Number [facility] [place] [address] * Hemogram (03/21/2017 5:07 AM EST) White Blood Cell 7.6 4.0 - 9.5 x10(3)/[facility] LABORAT[facility] Red Blood Cell 4.83 4.58 - 5.54 x10(6)/[facility] Hemoglobin 14.6 13.7 - 16.5 gm/dL [facility] Hematocrit 43.1 40.5 - 48.5 % [facility] Mean Cell Volume 89.2 82.9 - 93.1 fL [facility] Mean Cell Hemoglobin 30.2 27.5 - 32.1 pg [facility] Mean Cell Hemoglobin Concentration 33.9 32.0 - 35.7 gm/dL [facility] Platelet 200 145 - 357 x10(3)/[facility] LABORATORY RDW Standard Deviation 42.4 36.0 - 45.0 [facility]ATORY RDW coefficient of variation 12.9 11.4 - 13.8 % [facility] Mean Platelet Volume 10.5 7.6 - 12.9 [facility]ATORY NRBC% auto 0.0 % [facility] NRBC Absolute 0.000 0.000 - 0.000 x10(3)/[facility] Blood specimen (specimen) 03/21/2017 5:07 AM EST 03/21/2017 5:28 AM EST Narrative Resulting Agency Comment Spec In Lab Noelle Hearn MD HEMATOLOGY ORDERABLE S [facility] [place] [address] * (ABNORMAL) Hemoglobin A1c (03/21/2017 5:07 AM EST) Hemoglobin A1c 6.0(H) 4.3 - 5.6 % [facility] [...] Mellitus, Diabetes Care 2013; 36: Suppl. 1, M97-92 Estimated Average Glucose 126 mg/dL [facility] Comment: eAG equivalents for HbA1c [...] into estimated average glucose values. ??Diabetes Care 2008:31(8):1092-4349. Blood specimen (specimen) 03/21/2017 5:07 AM EST 03/21/2017 5:29 AM EST Narrative Resulting Agency Comment Spec In Lab Jose Olivares MD CHEMISTRY ORDERABLES [facility] [place] [address] * (ABNORMAL) Lipid Panel (03/21/2017 5:07 AM EST) Cholesterol, Total 129 <=239 mg/dL [facility] Triglyceride 330(H) <=199 mg/dL [facility] HDL Cholesterol 22(L) >=40 mg/dL [facility] LDL Cholesterol 41 <=190 mg/dL [facility] Cholesterol/HDL Ratio 5.9 ratio [facility] Lipid Interpretation See Note [facility] Comment: Lipid management should be guided by a patient? s ASCVD risk, goals and preferences. ACC/AHA Guidelines recommend high intensity statin if clinical ASCVD or LDL greater than or equal to 190 mg/dL. http://ThermalTherapeuticSystems.com/NLB-SHG-Bhznnhlrw Adults aged 40-75 with LDL 70-189 mg/dL should have their 10 year ASCVD risk estimated with the ACC/AHA ASCVD risk whistle punk http://tools.acc.org/BPWRU-Lcfo-Zkkdzaktn/ Statin should be discussed if risk greater [...] Olivares MD CHEMISTRY ORDERABLES [facility] [place] [address] * POCT Glucose (03/20/2017 8:06 PM EST) Glucose, POC 125 65 - 199 mg/dL [facility] Comment: Supplemental ranges: <140 mg/dL before meals <180 mg/dL all other times of the day Blood specimen (specimen) 03/20/2017 8:06 PM EST 03/20/2017 8:06 PM EST Jose Olivares MD POINT OF CARE TEST O RDERABLES [facility] [place] [address] * CARDIAC CATHETERIZATION (03/20/2017 5:15 PM EST) Anatomical Region Laterality Modality Other Narrative 03/20/2017 5:30 PM EST ?[facility] ? Cardiac Catheterization/Intervention Report ? Patient Name: , Mannie D. ? Procedure Date: 03/20/2017 ? A #: [id number] ? Primary Physician: Fantasma Rubalcava ? Case #: [id number] ? File Name: [id number] ? Catheterization Order Number: [id number] ? [facility] [facility] ? Final Report [place], [place] ? Patient Name: ? Mannie D. Merchant ? ID#: ?[id number] ? : ?1965 ? Procedure Date: ? [...] presented with: unstable angina (w/i 60 days). [place] ?Cardiovascular Society angina class was III. This [...] Mannie Padilla Procedure Date: 03/20/2017 A #: [id number] Primary Physician: Fantasma Rubalcava Case #: [id number] File Name: [id number] Catheterization Order Number: [id number] [facility] FinalReport [place], [place] Patient Name: Mannie Padilla ID#:[id number] :1965 Procedure Date: March 20, 2017 Case [...] presented with: unstable angina (w/i 60 days). [place] Cardiovascular Society angina class was III. This [...] CONTRAST (03/20/2017 4:44 PM EST) EF 65 HEARTCoolaData SYSTEM Anatomical Region Laterality Modality Other 03/20/2017 Narrative 03/20/2017 4:57 PM EST Procedure: ?Transthoracic Echocardiogram Patient: ?MERCHANT MANNIE Renteria ?? (Age): 1965(51y) Med Rec#: ? [id number] ?Sex: ?M ? Site Loc: ? [facility] ?Ht / Wt: ??170(cm)/106(kg) Pt. Loc: ?Adult Floor ? BSA: ?2.16 Study Date: ?? 03/20/2017 ?Pt. Type: Inpatient Tape: ? 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 MV deceleration [id number] ?msec ? MV A-wave Vmax ?1 ?m/sec [...] ? Mid-Inferior ?Normal ? Mid-Inferoseptal ?Normal ? [place]-Septal ? Normal ? [place]-Anterior ? Normal ? [place]-Lateral ?Normal ? [place]-Inferior ? Normal ? [place]-Tip ?Normal ? This report has been electronically signed by: Micheal Kent MD ? 03/20/2017 16:56:45 Images reviewed and interpretation verified [facility] Cardiac Ultrasound Laboratory Procedure Note Micheal Kent MD - 03/20/2017 Procedure: Transthoracic Echocardiogram Patient: MERCHANT JENSENORE D (Age): 1965(51y) Med Rec#: [id number] Sex: M Site Loc: [facility] Ht / Wt: 170(cm)/106(kg) Pt. Loc: Adult Floor BSA: 2.16 Study Date: 03/20/2017 Pt. 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 Cardiac Ultrasound Laboratory Jose Olivares MD ECHO ORDERABLES * EKG 12 Lead (03/20/2017 3:05 PM EST) Ventricular rate 62 BPM MUSE SYSTEM Atrial Rate 62 BPM MUSE SYSTEM P-R Interval 146 ms MUSE SYSTEM QRS Duration 84 ms MUSE SYSTEM Q-T Interval 420 ms MUSE SYSTEM QTC Calculated (Bezet) 426 ms MUSE SYSTEM Calculated P [place] 14 degrees MUSE SYSTEM Calculated R [place] 25 degrees MUSE SYSTEM Calculated T [place] 27 degrees MUSE SYSTEM INTERPRETATION Normal sinus [...] Absolute 6.48(H) 1.70 - 6.10 x10(3)/mc L [facility] Lymph % 21.8 % [facility] Lymphocytes Abs 2.3 0.9 - 3.2 x10(3)/mc L [facility] Monocyte % 10.8 % [facility] Monocyte Abs 1.1(H) 0.3 - 0.9 x10(3)/ L [facility] Eos % 2.6 % [facility] Eosinophils Abs 0.3 0.0 - 0.4 x10(3)/[facility] Basophil % 1.1 % [facility] Baso Absolute 0.1 0.0 - 0.1 x10(3)/[facility] Immature Gran % 1.40 % [facility] Comment: Immature granulocytes(IG's)percentage and absolute count will include metamyelocytes, myelocytes, and promyelocytes. Blood smears from CBCs yielding IG's will be scanned manually for concordance. If this scan disagrees with the automated IG or if promyelocytes are noted, a manual differential will be performed. Immature Gran Absolute 0.15(H) 0.00 - 0.04 x10(3)/[facility] LAB[facility]AT[facility] Blood specimen (specimen) 03/20/2017 2:54 PM EST 03/20/2017 3:00 PM EST Narrative Resulting Agency Comment Spec In Lab Noelle Hearn MD HEMATOLOGY ORDERABLE S [facility] [place] [address] * (ABNORMAL) Hemogram (03/20/2017 2:54 PM EST) White Blood Cell 10.4(H) 4.0 - 9.5 x10(3)/[facility]AT[facility] Red Blood Cell 4.79 4.58 - 5.54 x10(6)/[facility] Hemoglobin 14.5 13.7 - 16.5 gm/dL [facility] Hematocrit 41.9 40.5 - 48.5 % [facility] Mean Cell Volume 87.5 82.9 - 93.1 fL [facility] Mean Cell Hemoglobin 30.3 27.5 - 32.1 pg [facility] Mean Cell Hemoglobin Concentration 34.6 32.0 - 35.7 gm/dL [facility] Platelet 188 145 - 357 x10(3)/mc L [facility] RDW Standard Deviation 40.9 36.0 - 45.0 fL [facility] RDW coefficient of variation 12.9 11.4 - 13.8 % [facility] Mean Platelet Volume 10.5 7.6 - 12.9 fL [facility] NRBC% auto 0.0 % [facility] NRBC Absolute 0.000 0.000 - 0.000 x10(3)/mc L [facility] Blood specimen (specimen) 03/20/2017 2:54 PM EST 03/20/2017 3:00 PM EST Narrative Resulting Agency Comment Spec In Lab Noelle Hearn MD HEMATOLOGY ORDERABLE S [facility] [place] [address] * Cardiac Enzymes (LEB/CGP) (03/20/2017 2:54 PM [...] ischemia ?? New or presumed new significant SY-kokrzhb-H wave (ST-T) changes or new left bundle [...] additional sample may be indicated. Reference: [employer] [place] Definition of Myocardial Infarction. Journal of the [place] College of Cardiology 2012;60:1581-98 Creatine Kinase 116 0 - 200 unit/L [facility] Blood specimen (specimen) 03/20/2017 2:54 PM EST 03/20/2017 3:00 PM EST Narrative Resulting Agency Comment Spec In Lab Jose Olivares MD CHEMISTRY ORDERABLES Performing Organization Address [facility] Phone Number [facility] [place] [address] * Prothrombin Time (03/20/2017 2:54 PM EST) Prothrombin Time 13.1 11.8 - 14.0 sec [facility] International Normalization Ratio 1.0 0.9 - 1.1 [facility] Comment: An INR <2.0 indicates [...] MD HEMATOLOGY ORDERABLE S Performing Organization Address [facility] Co de Phone Number [facility] [place] [address] * Hepatic Function Panel (03/20/2017 2:54 PM EST) Protein, Total 6.9 6.1 - 8.0 gm/dL [facility] Albumin 4.2 3.2 - 5.2 gm/dL [facility] Aspartate Aminotransferase 17 0 - 39 unit/L [facility] Alanine Aminotransferase 27 0 - 55 unit/L [facility] Alkaline Phosphatase 68 40 - 120 unit/L [facility] Bilirubin, Total 0.4 0.2 - 1.3 mg/dL [facility] Bilirubin, Direct 0.1 0.0 - 0.3 mg/dL [facility] Blood specimen (specimen) 03/20/2017 2:54 PM EST 03/20/2017 3:00 PM EST Narrative Resulting Agency Comment Spec In Lab Jose Olivares MD CHEMISTRY ORDERABLES Performing Organization Address City/[facility]/ZIP Co de Phone Number [facility] [place] [address] * pro-Brain Natriuretic Peptide (03/20/2017 2:54 PM EST) NT-proBNP 14 <=125 pg/mL [facility] Blood specimen (specimen) 03/20/2017 2:54 PM EST 03/20/2017 3:00 PM EST Narrative Resulting Agency Comment Spec In Lab Jose Olivares MD CHEMISTRY ORDERABLES Performing Organization Address City/[facility]/ZIP Co de Phone Number [facility] [place] [address] * TSH (03/20/2017 2:54 PM EST) Thyroid Stimulating Hormone 0.62 0.27 - 4.20 mlU/ML [facility] Blood specimen (specimen) 03/20/2017 2:54 PM EST 03/20/2017 3:00 PM EST Narrative Resulting Agency Comment Spec In Lab Jose Olivares MD CHEMISTRY ORDERABLES Performing Organization Address City/[facility] Co de Phone Number [facility] [place] [address] * Phosphorus (03/20/2017 2:54 PM EST) Phosphorus 3.3 2.5 - 4.5 mg/dL [facility] Blood specimen (specimen) 03/20/2017 2:54 PM EST 03/20/2017 3:00 PM EST Narrative Resulting Agency Comment Spec In Lab Jose Olivares MD CHEMISTRY ORDERABLES Performing Organization Address [facility] Co de Phone Number [facility] [place] [address] * Magnesium (03/20/2017 2:54 PM EST) Magnesium 0.85 0.69 - 1.07 mmol/L [facility] Blood specimen (specimen) 03/20/2017 2:54 PM EST 03/20/2017 3:00 PM EST Narrative Resulting Agency Comment Spec In Lab Jose Olivares MD CHEMISTRY ORDERABLES Performing Organization Address [facility] Co de Phone Number [facility] [place] [address] * Basic Metabolic Panel (non-fasting) (03/20/2017 2:54 PM EST) Glucose 90 65 - 199 mg/dL [facility] Comment:Diabetes: >=200 mg/d L plus symptoms Blood Urea Nitrogen 19 10 - 20 mg/dL [facility] [...] 98 - 107 mmol/L [facility] Carbon Dioxide 22 22 - 31 mmol/L [facility] Anion Gap 15 5 - 15 mmol/L [facility] Calcium 9.1 8.5 - 10.5 mg/dL [facility] Est Glomerular Filtration Rate >60 >=60 [facility] Comment: The reported eGFR should be multiplied by 1.2 for patients. The MDRD is not an appropriate measure of renal function for patients with body mass extremes or in patients with acute kidney failure. http://[employer]/DHnkdep http://[employer]/DHMCnkf Blood specimen (specimen) 03/20/2017 2:54 PM EST 03/20/2017 3:00 PM EST Narrative Resulting Agency Comment Spec In Lab Jose Olivares MD CHEMISTRY ORDERABLES Performing Organization Address [facility] Co de Phone Number [facility] [place] [address] * (ABNORMAL) APTT (03/20/2017 2:54 PM EST) [facility] Partial Thromboplastin Time 43(H) 25 - 35 sec [facility] Comment: The recommended therapeutic range for full dose, unfractionated heparin at [facility] is 80 ? 114 seconds. The use of the anti-Xa (heparin) level rather than the PTT is recommended for monitoring anticoagulation intensity in critically ill patients receiving unfractionated heparin by continuous IV infusion. Blood specimen (specimen) 03/20/2017 2:54 PM EST 03/20/2017 3:00 PM EST Narrative Resulting Agency Comment Spec In Lab Jose Olivares MD HEMATOLOGY ORDERABLE S Performing Organization Address [facility] Co de Phone Number [facility] [place] [address] * SCAN DOC: CARDIAC CATH (03/20/2017 12:00 [...] - Reason: Transfer to a Procedural area)1736 ([facility] Unhold - Provider: Admin [...] on 03/21/17 at 0900, Until Discontinued 1616 ([facility] Hold - Provider: Admin Adt - Reason: Transfer to a Procedural area)1736 ([facility] Unhold - Provider: Admin Adt) 0857 (Given - Provider: Effie Young, CHATO) PARoxetine (PAXIL) tablet 20 mg 20 mg, Oral, NIGHTLY, First dose on Thu03/21/17 at 2100, Until Discontinued, Routine 1616 ([facility] Hold - Provider: Admin Adt - Reason: Transfer to a Procedural area)1736 ([facility] Unhold - Provider: Admin Adt) sodium chloride 0.9 % flush 5 mL 5 mL, Intravenous, 2 TIMES DAILY, First dose on Thu03/20/17 at 2100, Until Discontinued, Routine 1616 ([facility] Hold - Provider: Admin Adt - Reason: Transfer to a Procedural area)1736 ([facility] Unhold - Provider: Admin Adt)2100 [...] - Reason: Transfer to a Procedural area)1715 ([facility] Unhold - Provider: Admin [...] - Reason: Transfer to a Procedural area)1736 ([facility] Unhold - Provider: Admin [...] duration of the active insulin., Routine 1616 ([facility] Hold - Provider: Admin Adt - Reason: Transfer to a Procedural area)1736 ([facility] Unhold - Provider: Admin Adt) docusate sodium (COLACE) capsule 100 mg 100 mg, Oral, DAILY PRN, Starting on Thu03/20/17 at 1443, Until 03/21/17 at 1528, Constipation, Routine 161 ([facility] Hold - Provider: Admin Adt - Reason: Transfer to a Procedural area)173 ([facility] Unhold - Provider: Admin [...] duration of the active insulin., Routine 1616 ([facility] Hold - Provider: Admin Adt - Reason: Transfer to a Procedural area)1736 ([facility] Unhold - Provider: Admin [...] for discomfort with PIV insertion, Routine 1616 ([facility] Hold - Provider: Admin [...] provided on this medication record., Routine 1616 ([facility] Hold - Provider: Admin Adt - Reason: Transfer to a Procedural area)1736 ([facility] Unhold - Provider: Admin [...] Routine documented in this encounter Care Teams Medical Biller/Coder Relationship Specialty Start Date End Date Garth Berg MD [address] [place] [address] PCP - General General Internal Medicine 03/02/17 documented as of this encounter
--- OUTSIDE RECORDS SUMMARY | 2023-10-08 10:50 | XMS_ITS | Encounter Summary ---
Author Organization [facility] Address [facility] [place] [address] Care Team Providers Care Education Assistant Name Role Phone Garth Berg MD Primary Care Provider [phone] Reason for Visit * Auth/Cert Specialty Diagnoses / Procedures Referred By Contac t Referred To Contact Diagnoses Unstable angina [place] ?CAD Procedures CARDIAC CATHETERIZATION Referral ID Status Reason Start Date Expiration Date Visits Re quested Visits Authorized [id number] 1 1 Encounter Details Date Type Department Care Team (Latest Contact Info) Description 03/20/2017 1:33 PM EST - 03/21/2017 1:28 PM EST Hospital Encounter [place] [address] Jose Olivares MD [facility] [place] [address] 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 Language: [place] Citizen Race: Ethnicity: Admit date: 03/20/2017 Discharge date [...] please contact your inpatient physician through the [facility] Credit Rating Inspector . Issues afterhours and on weekends will be handled by the grocery clerk selling on-call. Discharge Diagnoses (Hospital Problems) and Secondary [...] with inferior/apical reversable ischemia), HTN, HLD, COPD, EILU, NIDDM II c/b neuropathy, GERD and active tobacco use (>100 pack years) presenting in transfer from [facility] with unstable angina. He presented to the [...] weeks. ?? Emergency contact: Gayatri Suarez - [phone] (Mother) ?? OSH labs prior to transfer: [...] up with your primary care provider and esthetician and manager medical spa for further instructions on your medication regimen. Primary care follow up: To be determined Follow-Up Appointments Future Appointments Date Time Provider Department Center 04/16/2017 12:00 PM Laverne Coon MD [facility]io [place] [facility] Date and Time Provider and Specialty Location Your Inpatient Doctor(s) at [facility]: Dr. Jose West General Instructions None Future Appointments and Orders Future Appointments Provider Department Dept Phone 04/16/2017 12:00 PM Laverne Coon MD Cardiology at [place] [phone] Discharge References/Attachments None documented in this encounter [...] up with your primary care provider and esthetician and manager medical spa for further instructions on your medication regimen. Primary care follow up: To be determined Follow-Up Appointments Future Appointments Date Time Provider Department Center 04/16/2017 12:00 PM Laverne Coon MD [facility] CLIN Date and Time Provider and Specialty Location Your Inpatient Doctor(s) at [facility]: Dr. Jose West documented in this encounter [...] removed and telemetry disconnected. Patient brought to [facility] via wheelchair. * Jose Olivares MD - [...] (>100 pack years) presenting in transfer from [facility] with unstable angina. Active Problems: Active Hospital [...] (>100 pack years) presenting in transfer from [facility] with unstable angina. Plan: Cardiac catheterization shows [...] He will follow-up with his PCP and esthetician and manager medical spa as an outpatient. Jim West MD, PGY-1 Cardiology S1 (pgr. [id number]) CARDIOLOGY STAFF NOTE Mannie Padilla is a [...] feels comfortable with this and is ambulatory. oJse Olivares MD, [facility], [facility] Staff Cost Clerk pager [phone] * Aquilino Barney X - 03/21/2017 12:02 [...] bedside. Patient brought to cardiac cath lab manager. Patient returned from cardiac cath lab manager. TR band in place. [...] in the chart. Plan/ Coronary Angio per racking machine operator preference No c/i to long-term DAPT Moderate sedation MAGUI Mijares MD documented in this encounter H&P Notes * Jose Olivares MD - 03/20/2017 1:39 PM EST Cardiology Admission History and Physical Patient Name: Mannie Padilla Service: Cardiology S1 Team Responsible Attending: Jose Olivares MD PCP: Garth Berg MD PCP phone #: [phone] ID/Chief Complaint: 51 y.o. man with history [...] (>100 pack years) presenting in transfer from [facility] with unstable angina. He presented to the [...] recent weeks. Emergency contact: Gayatri Suarez - [phone] (Mother) OSH labs prior to transfer: CBC: [...] Only Family History: Mother: HTN, CVA MGF: NM 57 MGGF: NM 80 Father: of brain cancer at 67 [...] in the last 7068 hours. Invalid input(s): [id number] Heme: No results for input(s): LDH, HAPTOGLOBIN, [...] (>100 pack years) presenting in transfer from [facility] with unstable angina. He is currently without chest pain and has successfully been weaned off nitroglycerine drip. Given presentation, risk factorsand recent positive stress test, we will proceed with cardiac catheterization. Details of plan as follows. PLAN: Admit to Cardiology, S1 Team Pager # [phone] # ACS - unstable angina - Medications [...] of ACS medical therapies. 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 Scanning Provider MEDIA MGR SCAN EXT O RDR/RSLT * POCT Glucose (03/21/2017 11:58 AM EST) Glucose, POC 104 65 - 199 mg/dL [facility] Comment: Supplemental ranges: <140 mg/dL before meals <180 mg/dL all other times of the day Blood specimen (specimen) 03/21/2017 11:58 AM EST 03/21/2017 11:58 AM EST Jose Olivares MD POINT OF CARE TEST O DEANN Performing Organization Address [facility] Co de Phone Number [facility] [place] [address] * POCT Glucose (03/21/2017 7:39 AM EST) Glucose, POC 127 65 - 199 mg/dL [facility] Comment: Supplemental ranges: <140 mg/dL before meals <180 mg/dL all other times of the day Blood specimen (specimen) 03/21/2017 7:39 AM EST 03/21/2017 7:39 AM EST Jose Olivares MD POINT OF CARE TEST O DEANN Performing Organization Address City/[facility] Co de Phone Number [facility] [place] [address] * Magnesium (03/21/2017 5:07 AM EST) Magnesium 0.89 0.69 - 1.07 mmol/L [facility] Blood specimen (specimen) Venous Draw / Unknown 03/21/2017 5:07 AM EST 03/21/2017 5:30 AM EST Narrative Resulting Agency Comment Spec In Lab Jim West MD CHEMISTRY ORDERA BLES [facility] [place] [address] * (ABNORMAL) Basic Metabolic Panel (non-fasting) (03/21/2017 5:07 AM EST) Glucose 121 65 - 199 mg/dL [facility] Comment:Diabetes: >=200 mg/d L plus symptoms Blood Urea Nitrogen 19 10 - 20 mg/dL [facility] Creatinine 1.31 0.80 - 1.50 mg/dL [facility] Sodium 139 135 - 145 mmol/L [facility] Potassium 4.0 3.5 - 5.0 mmol/L [facility] Comment: Please note: ??Patients with WBC >100,000 may have falsely elevated Potassium levels. ??For accurate Potassium quantification in these patients send serum separator tube (gold top) for subsequent determinations. ??Contact the Clinical Chemistry Laboratory if there are any questions. Chloride 103 98 - 107 mmol/L [facility] Carbon Dioxide 25 22 - 31 mmol/L [facility] Anion Gap 11 5 - 15 mmol/L [facility] Calcium 9.2 8.5 - 10.5 mg/dL [facility] Est Glomerular Filtration Rate 57(L) >=60 [facility] Comment: The reported eGFR should be multiplied by 1.2 for patients. The MDRD is not an appropriate measure of renal function for patients with body mass extremes or in patients with acute kidney failure. http://Montiel [place].Recurious/DHnkdep http://Amulyte/DHMCnkf Blood specimen (specimen) 03/21/2017 5:07 AM EST 03/21/2017 5:29 AM EST Narrative Resulting Agency Comment Spec In Lab Jose Olivares MD CHEMISTRY ORDERABLES Performing Organization Address City/[facility]/[place] [address] * (ABNORMAL) Differential, Automated (03/21/2017 5:07 AM EST) Neutrophil % 57.4 % [facility] Neutrophil Absolute 4.37 1.70 - 6.10 x10(3)/mc L [facility] Lymph % 23.6 % [facility] Lymphocytes Abs 1.8 0.9 - 3.2 x10(3)/ L [facility] Monocyte % 13.2 % [facility] Monocyte Abs 1.0(H) 0.3 - 0.9 x10(3)/mc L [facility] Eos % 3.2 % [facility] Eosinophils Abs 0.2 0.0 - 0.4 x10(3)/ L [facility] Basophil % 1.2 % [facility] Baso Absolute 0.1 0.0 - 0.1 x10(3)/mc L [facility] Immature Gran % 1.40 % [facility] Comment: Immature granulocytes(IG's)percentage and absolute count will include metamyelocytes, myelocytes, and promyelocytes. Blood smears from CBCs yielding IG's will be scanned manually for concordance. If this scan disagrees with the automated IG or if promyelocytes are noted, a manual differential will be performed. Immature Gran Absolute 0.11(H) 0.00 - 0.04 x10(3)/mc L [facility] Blood specimen (specimen) 03/21/2017 5:07 AM EST 03/21/2017 5:28 AM EST Narrative Resulting Agency Comment Spec In Lab Noelle Hearn MD HEMATOLOGY ORDERABLE S Performing Organization Address City/[facility]/ZIP Co de Phone Number [facility] [place] [address] * Hemogram (03/21/2017 5:07 AM EST) Pathologist [facility] White Blood Cell 7.6 4.0 - 9.5 x10(3)/[facility] Red Blood Cell 4.83 4.58 - 5.54 x10(6)/[facility] Hemoglobin 14.6 13.7 - 16.5 gm/dL [facility] Hematocrit 43.1 40.5 - 48.5 % [facility] Mean Cell Volume 89.2 82.9 - 93.1 fL [facility] Mean Cell Hemoglobin 30.2 27.5 - 32.1 pg [facility] Mean Cell Hemoglobin Concentration 33.9 32.0 - 35.7 gm/dL [facility] Platelet 200 145 - 357 x10(3)/[facility] RDW Standard Deviation 42.4 36.0 - 45.0 [facility] RDW coefficient of variation 12.9 11.4 - 13.8 % [facility] Mean Platelet Volume 10.5 7.6 - 12.9 fL [facility] NRBC% auto 0.0 % [facility] NRBC Absolute 0.000 0.000 - 0.000 x10(3)/[facility] Blood specimen (specimen) 03/21/2017 5:07 AM EST 03/21/2017 5:28 AM EST Narrative Resulting Agency Comment Spec In Lab Noelle Hearn MD HEMATOLOGY ORDERABLE S [facility] [place] [address] * (ABNORMAL) Hemoglobin A1c (03/21/2017 5:07 AM EST) Pathologist [facility] Hemoglobin A1c 6.0(H) 4.3 - 5.6 % [facility] [...] Mellitus, Diabetes Care 2013; 36: Suppl. 1, P47-98 Estimated Average Glucose 126 mg/dL [facility] Comment: eAG equivalents for [...] into estimated average glucose values. ??Diabetes Care 2008:31(8):4861-1073. Blood specimen (specimen) 03/21/2017 5:07 AM EST 03/21/2017 5:29 AM EST Narrative Resulting Agency Comment Spec In Lab Jose Olivares MD CHEMISTRY ORDERABLES [facility] [place] [address] * (ABNORMAL) Lipid Panel (03/21/2017 5:07 AM EST) Cholesterol, Total 129 <=239 mg/dL [facility] Triglyceride 330(H) <=199 mg/dL [facility] HDL Cholesterol 22(L) >=40 mg/dL [facility] LDL Cholesterol 41 <=190 mg/dL [facility] Cholesterol/HDL Ratio 5.9 ratio [facility] Lipid Interpretation See Note [facility] Comment: Lipid management should be guided by a patient? s ASCVD risk, goals and preferences. ACC/AHA Guidelines recommend high intensity statin if clinical ASCVD or LDL greater than or equal to 190 mg/dL. http://Montiel [place].com/ATF-ZLR-Byjwktzro Adults aged 40-75 with LDL 70-189 mg/dL should have their 10 year ASCVD risk estimated with the ACC/AHA ASCVD risk teletypesetter http://tools.acc.org/IHMIW-Exvk-Mosxorgel/ Statin should be discussed if risk greater [...] In Lab Jose Olivares MD CHEMISTRY ORDERABLES [facility] [place] [address] * POCT Glucose (03/20/2017 8:06 PM EST) Glucose, POC 125 65 - 199 mg/dL [facility] Comment: Supplemental ranges: <140 mg/dL before meals <180 mg/dL all other times of the day Blood specimen (specimen) 03/20/2017 8:06 PM EST 03/20/2017 8:06 PM EST Jose Olivares MD POINT OF CARE TEST O RDERABLES Performing Organization Address [facility]/State/ZIP Co de Phone Number [facility] [place] [address] * CARDIAC CATHETERIZATION (03/20/2017 5:15 PM EST) Anatomical Region Laterality Modality Other Narrative 03/20/2017 5:30 PM EST ?[facility] ? Cardiac Catheterization/Intervention Report ? Patient Name: , Mannie D. ? Procedure Date: 03/20/2017 ? A #: [id number] ? Primary Physician: Fantasma Rubalcava ? Case #: [id number] ? File Name: [id number] ? Catheterization Order Number: [id number] ? [facility] ? Final Report [place], [place] ? Patient Name: ? Mannie D. [place] ? ID#: ?[id number] ? : ?1965 ? Procedure Date: ? March 20, 2017 ? Case #: ? [id number] ? Room: ? 5 ? Case Physician: [...] presented with: unstable angina (w/i 60 days). [place] ?Cardiovascular Society angina class was III. This [...] Procedure Note Fantasma Rubalcava MD - 03/27/2017 [facility] Cardiac Catheterization/Intervention Report Patient Name: Mannie Padilla Procedure Date: 03/20/2017 A #: [id number] Primary Physician: Fantasma Rubalcava Case #: [id number] File Name: [id number] Catheterization Order Number: [id number] [facility] FinalReport [place], [place] Patient Name: Mannie Padilla ID#:[id number] :1965 Procedure Date: March 20, 2017 Case [...] presented with: unstable angina (w/i 60 days). [place] Cardiovascular Society angina class was III. This [...] CONTRAST (03/20/2017 4:44 PM EST) EF 65 [facility] Anatomical Region Laterality Modality Other 03/20/2017 Narrative 03/20/2017 4:57 PM EST Procedure: ?Transthoracic Echocardiogram Patient: ?MERCHANT CHAND D ?? (Age): 1965(51y) Med Rec#: ? [id number] ?Sex: ?M ? Site Loc: ? [facility] ?Ht / Wt: ??170(cm)/106(kg) Pt. Loc: ?Adult Floor ? BSA: ?2.16 Study Date: ?? 03/20/2017 ?Pt. Type: Inpatient Tape: ? Referring: MARION Reading: Micheal Kent ([id number]) Contracts Specialist: Joselito Linares Diagnosis: *ICD-10-PCS Atherosclerotic heart disease of southern [place] coronary artery with unstable angina pectoris (I25.110) [...] E-wave Vmax ?0.8 ?m/sec ? MV deceleration [id number] ?msec ? MV A-wave Vmax ?1 ?m/sec [...] ? Mid-Inferior ?Normal ? Mid-Inferoseptal ?Normal ? [place]-Septal ? Normal ? [place]-Anterior ? Normal ? [place]-Lateral ?Normal ? [place]-Inferior ? Normal ? [place]-Tip ?Normal ? This report has been electronically signed by: Micheal Kent MD ? 03/20/2017 16:56:45 Images reviewed and interpretation verified [facility] Cardiac Ultrasound Laboratory Procedure Note Micheal Kent MD - 03/20/2017 Procedure: Transthoracic Echocardiogram Patient: MERCHANT MANNIE Renteria DOB(Age): 1965(51y) Med Rec#: [id number] Sex: M Site Loc: [facility] Ht / Wt: 170(cm)/106(kg) Pt. Loc: Adult Floor BSA: 2.16 Study Date: 03/20/2017 Pt. Type: Inpatient Tape: Referring: MARION Reading: Micheal Kent ([id number]) Contracts Specialist: Joselito Linares Diagnosis: *ICD-10-PCS Atherosclerotic heart disease of southern [place] coronary artery with unstable angina pectoris (I25.110) [...] MV E-wave Vmax 0.8 m/sec MV deceleration [id number] msec MV A-wave Vmax 1 m/sec MV [...] Normal Mid-Posterolateral Normal Mid-Inferior Normal Mid-Inferoseptal Normal [place]-Septal Normal [place]-Anterior Normal [place]-Lateral Normal [place]-Inferior Normal [place]-Tip Normal This report has been electronically signed by: Micheal Ketn MD 03/20/2017 16:56:45 Images reviewed and interpretation verified [facility] Cardiac Ultrasound Laboratory Jose Olivares MD ECHO ORDERABLES * EKG 12 Lead (03/20/2017 3:05 PM EST) Ventricular rate 62 BPM MUSE SYSTEM Atrial Rate 62 BPM MUSE SYSTEM P-R Interval 146 ms MUSE SYSTEM QRS Duration 84 ms MUSE SYSTEM Q-T Interval 420 ms MUSE SYSTEM QTC Calculated (Bezet) 426 ms MUSE SYSTEM Calculated P [place] 14 degrees MUSE SYSTEM Calculated R [place] 25 degrees MUSE SYSTEM Calculated T [place] 27 degrees MUSE SYSTEM INTERPRETATION Normal sinus [...] Absolute 6.48(H) 1.70 - 6.10 x10(3)/mc L [facility] Lymph % 21.8 % [facility] Lymphocytes Abs 2.3 0.9 - 3.2 x10(3)/mc L [facility] Monocyte % 10.8 % [facility] Monocyte Abs 1.1(H) 0.3 - 0.9 x10(3)/ L [facility] Eos % 2.6 % [facility] Eosinophils Abs 0.3 0.0 - 0.4 x10(3)/[facility] Basophil % 1.1 % [facility] Baso Absolute 0.1 0.0 - 0.1 x10(3)/[facility] Immature Gran % 1.40 % [facility] Comment: Immature granulocytes(IG's)percentage and absolute count will include metamyelocytes, myelocytes, and promyelocytes. Blood smears from CBCs yielding IG's will be scanned manually for concordance. If this scan disagrees with the automated IG or if promyelocytes are noted, a manual differential will be performed. Immature Gran Absolute 0.15(H) 0.00 - 0.04 x10(3)/[facility] Blood specimen (specimen) 03/20/2017 2:54 PM EST 03/20/2017 3:00 PM EST Narrative Resulting Agency Comment Spec In Lab Noelle Hearn MD HEMATOLOGY ORDERABLE S [facility] [place] [address] * (ABNORMAL) Hemogram (03/20/2017 2:54 PM EST) White Blood Cell 10.4(H) 4.0 - 9.5 x10(3)/[facility] Red Blood Cell 4.79 4.58 - 5.54 x10(6)/[facility] Hemoglobin 14.5 13.7 - 16.5 gm/dL [facility] Hematocrit 41.9 40.5 - 48.5 % [facility] Mean Cell Volume 87.5 82.9 - 93.1 fL [facility] Mean Cell Hemoglobin 30.3 27.5 - 32.1 pg [facility] Mean Cell Hemoglobin Concentration 34.6 32.0 - 35.7 gm/dL [facility] Platelet 188 145 - 357 x10(3)/mc L [facility] RDW Standard Deviation 40.9 36.0 - 45.0 fL [facility] RDW coefficient of variation 12.9 11.4 - 13.8 % [facility] Mean Platelet Volume 10.5 7.6 - 12.9 fL [facility] NRBC% auto 0.0 % [facility] NRBC Absolute 0.000 0.000 - 0.000 x10(3)/mc L [facility] Blood specimen (specimen) 03/20/2017 2:54 PM EST 03/20/2017 3:00 PM EST Narrative Resulting Agency Comment Spec In Lab Noelle Hearn MD HEMATOLOGY ORDERABLE S [facility] [place] [id number] * Cardiac Enzymes (LEB/CGP) (03/20/2017 2:54 PM EST) Troponin-T <0.01 0.00 - 0.00 ng/mL [facility] Comment: The 99th percentile for Troponin T is less than 0.01 ng/mL, any detectable cTnT concentration using this assay should be considered elevated. According to the third universal definition of myocardial infarction the following criteria with a clinical presentation consistent with acute myocardial ischemia meets the diagnosis for a myocardial infarction (NM). Detection of a rise and/or fall of cTnT, with at least one value greater than the 99th percentile (> or = 0.01) and with at least one of the following ?? Symptoms of ischemia ?? New or presumed new significant SR-pelvuff-D wave (ST-T) changes or new left bundle [...] additional sample may be indicated. Reference: Third [place] Definition of Myocardial Infarction. Journal of the [place] College of Cardiology 2012;60:1581-98 Creatine Kinase 116 0 - 200 unit/L [facility] Blood specimen (specimen) 03/20/2017 2:54 PM EST 03/20/2017 3:00 PM EST Narrative Resulting Agency Comment Spec In Lab Jose Olivares MD CHEMISTRY ORDERABLES Performing Organization Address [facility] de Phone Number [facility] [place] [address] * Prothrombin Time (03/20/2017 2:54 PM EST) Prothrombin Time 13.1 11.8 - 14.0 sec [facility] International Normalization Ratio 1.0 0.9 - 1.1 [facility] Comment: An INR <2.0 [...] MD HEMATOLOGY ORDERABLE S Performing Organization Address [facility] Co de Phone Number [facility] [place] [address] * Hepatic Function Panel (03/20/2017 2:54 PM EST) Protein, Total 6.9 6.1 - 8.0 gm/dL [facility] Albumin 4.2 3.2 - 5.2 gm/dL [facility] Aspartate Aminotransferase 17 0 - 39 unit/L [facility] Alanine Aminotransferase 27 0 - 55 unit/L [facility] Alkaline Phosphatase 68 40 - 120 unit/L [facility] Bilirubin, Total 0.4 0.2 - 1.3 mg/dL [facility] Bilirubin, Direct 0.1 0.0 - 0.3 mg/dL [facility] Blood specimen (specimen) 03/20/2017 2:54 PM EST 03/20/2017 3:00 PM EST Narrative Resulting Agency Comment Spec In Lab Jose Olivares MD CHEMISTRY ORDERABLES Performing Organization Address [facility] Co de Phone Number [facility] [place] [address] * pro-Brain Natriuretic Peptide (03/20/2017 2:54 PM EST) NT-proBNP 14 <=125 pg/mL [facility] Blood specimen (specimen) 03/20/2017 2:54 PM EST 03/20/2017 3:00 PM EST Narrative Resulting Agency Comment Spec In Lab Jose Olivares MD CHEMISTRY ORDERABLES Performing Organization Address [facility] Co de Phone Number [facility] [place] [address] * TSH (03/20/2017 2:54 PM EST) Thyroid Stimulating Hormone 0.62 0.27 - 4.20 mlU/ML [facility] Blood specimen (specimen) 03/20/2017 2:54 PM EST 03/20/2017 3:00 PM EST Narrative Resulting Agency Comment Spec In Lab Jose Olivares MD CHEMISTRY ORDERABLES Performing Organization Address [facility] Co de Phone Number [facility] [place] [address] * Phosphorus (03/20/2017 2:54 PM EST) Phosphorus 3.3 2.5 - 4.5 mg/dL [facility] Blood specimen (specimen) 03/20/2017 2:54 PM EST 03/20/2017 3:00 PM EST Narrative Resulting Agency Comment Spec In Lab Jose Olivares MD CHEMISTRY ORDERABLES Performing Organization Address [facility] de Phone Number [facility] [place] [address] * Magnesium (03/20/2017 2:54 PM EST) Magnesium 0.85 0.69 - 1.07 mmol/L [facility] Blood specimen (specimen) 03/20/2017 2:54 PM EST 03/20/2017 3:00 PM EST Narrative Resulting Agency Comment Spec In Lab Jose Olivares MD CHEMISTRY ORDERABLES Performing Organization Address [facility] de Phone Number [facility] [place] [address] * Basic Metabolic Panel (non-fasting) (03/20/2017 2:54 PM EST) Glucose 90 65 - 199 mg/dL [facility] Comment:Diabetes: >=200 mg/d L plus symptoms Blood Urea Nitrogen 19 10 - 20 mg/dL [facility] Creatinine 1.22 0.80 - 1.50 mg/dL [facility] Sodium 140 135 - 145 mmol/L [facility] Potassium 3.8 3.5 - 5.0 mmol/L [facility] Comment: Please note: ??Patients with WBC >100,000 may have falsely elevated Potassium levels. ??For accurate Potassium quantification in these patients send serum separator tube (gold top) for subsequent determinations. ??Contact the Clinical Chemistry Laboratory if there are any questions. Chloride 103 98 - 107 mmol/L [facility] Carbon Dioxide 22 22 - 31 mmol/L [facility] Anion Gap 15 5 - 15 mmol/L [facility] Calcium 9.1 8.5 - 10.5 mg/dL [facility] Est Glomerular Filtration Rate >60 >=60 [facility] Comment: The reported eGFR should be multiplied by 1.2 for patients. The MDRD is not an appropriate measure of renal function for patients with body mass extremes or in patients with acute kidney failure. http://Amulyte/DHnkdep http://Amulyte/MCnkf Blood specimen (specimen) 03/20/2017 2:54 PM EST 03/20/2017 3:00 PM EST Narrative Resulting Agency Comment Spec In Lab Jose Olivares MD CHEMISTRY ORDERABLES Performing Organization Address [facility] de Phone Number [facility] [place] [address] * (ABNORMAL) APTT (03/20/2017 2:54 PM EST) [facility] Signature Partial Thromboplastin Time 43(H) 25 - 35 sec [facility] Comment: The recommended therapeutic range for full dose, unfractionated heparin at [facility] is 80 ? 114 seconds. The use of the anti-Xa (heparin) level rather than the PTT is recommended for monitoring anticoagulation intensity in critically ill patients receiving unfractionated heparin by continuous IV infusion. Blood specimen (specimen) 03/20/2017 2:54 PM EST 03/20/2017 3:00 PM EST Narrative Resulting Agency Comment Spec In Lab Jose Olivares MD HEMATOLOGY ORDERABLE S Performing Organization Address [facility] Co de Phone Number [facility] [place] [address] * SCAN DOC: CARDIAC CATH (03/20/2017 12:00 AM EST) Anatomical Region Laterality Modality Cardiac Other Narrative 03/20/2017 12:00 AM EST Ordered by an unspecified provider. Scanning Provider MEDIA MGR SCAN EXT O RDR/RSLT documented in this encounter Visit Diagnoses Diagnosis Atherosclerosis of [place] coronary artery of [place] heart with unstable angina pectoris Unstable angina [...] told to do so., Routine 1616 ([facility] Hold - Provider: Admin Adt - Reason: Transfer to a Procedural area)1630 (Automatically Held - Provider: Admin Adt)1736 ([facility] Unhold - Provider: Admin Adt) [...] Reason: Transfer to a Procedural area)1736 ([facility] Unhold - Provider: Admin Adt) 0856 (Given - Provider: Effie Young RN) nicotine (NICODERM CQ) 21 mg/24 hr patch 21 mg(Linked Group 2) 21 mg, Transdermal, DAILY, First dose on Thu03/20/17 at 1500, Until Discontinued, Routine 1519 (Patch Applied - Provider: Effie Young RN)1616 ([facility] Hold - Provider: Admin Adt - Reason: Transfer to a Procedural area)1736 ([facility] Unhold - Provider: Admin Adt) 0857 (Patch Applied - Provider: Effie Young RN) nicotine (NICODERM CQ) 21 mg/24 hr patch Patch Removal(Linked Group 2) Transdermal, DAILY, First dose on 03/21/17 at 0900, Until Discontinued, Remove nicotine 21 mg/24 hr patch 1616 ([facility] Hold - Provider: Admin Adt - Reason: Transfer to a Procedural area)1736 ([facility] Unhold - Provider: Admin Adt) 0900 (Patch Removed - Provider: Effie Young RN) nicotine (NICODERM CQ) 21 mg/24 hr patch Patch Verification(Linked Group 2) Transdermal, 2 TIMES DAILY, First dose on 03/21/17 at 0900, Until Discontinued, Verify nicotine 21 mg/24 hr patch 1616 ([facility] Hold - Provider: Admin Adt - Reason: Transfer to a Procedural area)1736 ([facility] Unhold - Provider: Admin Adt) 0900 (Patch (dose and location) verified - Provider: Effie Young RN) pantoprazole (PROTONIX) tablet 40 mg 40 mg, Oral, DAILY, First dose on 03/21/17 at 0900, Until Discontinued 1616 ([facility] Hold - Provider: Admin Adt - Reason: Transfer to a Procedural area)1736 ([facility] Unhold - Provider: Admin Adt) 0857 (Given - Provider: Effie Young RN) PARoxetine (PAXIL) tablet 20 mg 20 mg, Oral, NIGHTLY, First dose on 03/21/17 at 2100, Until Discontinued, Routine 1616 ([facility] Hold - Provider: Admin Adt - Reason: Transfer to a Procedural area)1736 ([facility] Unhold - Provider: Admin Adt) sodium chloride 0.9 % flush 5 mL 5 mL, Intravenous, 2 TIMES DAILY, First dose on Thu03/20/17 at 2100, Until Discontinued, Routine 1616 ([facility] Hold - Provider: Admin Adt - Reason: Transfer to a Procedural area)1736 ([facility] Unhold - Provider: Admin Adt)2100 [...] Bag - Provider: Effie Young RN)1616 ([facility] Hold - Provider: Admin Adt - Reason: Transfer to a Procedural area)1715 ([facility] Unhold - Provider: Admin Adt) [...] sources in 24 hours., Routine 1616 ([facility] Hold - Provider: Admin Adt - Reason: Transfer to a Procedural area)173 ([facility] Unhold - Provider: Admin Adt) [...] of the active insulin., Routine 161 ([facility] Hold - Provider: Admin Adt - Reason: Transfer to a Procedural area)1736 ([facility] Unhold - Provider: Admin Adt) docusate sodium (COLACE) capsule 100 mg 100 mg, Oral, DAILY PRN, Starting on Thu03/20/17 at 1443, Until 03/21/17 at 1528, Constipation, Routine 1616 ([facility] Hold - Provider: Admin Adt - Reason: Transfer to a Procedural area)1736 ([facility] Unhold - Provider: Admin Adt) [...] discomfort with PIV insertion, Routine 161 ([facility] Hold - Provider: Admin Adt [...] Routine documented in this encounter Care Teams Education Assistant Relationship Specialty Start Date End Date Garth Berg MD [address] [place] [address] PCP - General General Internal Medicine 03/02/17 documented as of this encounter
--- OUTSIDE RECORDS SUMMARY | 2023-10-08 10:50 | XMS_ITS | Encounter Summary ---
Author Organization [place] [address] Care Team Providers Care Access Nurse Name Role Phone Judd Scott MD Primary Care Provider [phone] Encounter Details Date Type Department Care Team (Late st Contact Info) Description 03/17/2014 Orders [place] [address] Yuri Lao MD [facility] DR ORTHOPAEDIC SURGERY [id number] Bilateral foot pain (Primary Dx) Social History [...] limb documented in this encounter Care Teams Access Nurse Relationship Specialty Start Date End Date Judd Scott MD PCP - General 01/08/10 03/01/17 documented as of this encounter
--- OUTSIDE RECORDS SUMMARY | 2023-10-08 10:50 | XMS_ITS | Encounter Summary ---
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..] chest pain Primary provider: Garth Marroquin DO [address] [place] [id number] ?? Problem List: 1: Type 2 DM [...] Office Visit from 04/16/2017 in Cardiology at [place] Weight 108 kg (238 lb) Height 170.2 [...] with primary care provider Laverne Coon MD [facility] Interventional Cardiology Pager [phone] documented in this encounter Plan of Treatment [...] (Bezet) 449 ms MUSE SYSTEM Calculated P [place] 25 degrees MUSE SYSTEM Calculated R [place] 28 degrees MUSE SYSTEM Calculated T [place] 24 degrees MUSE SYSTEM INTERPRETATION Normal sinus [...] hypertension documented in this encounter Care Teams Hotel General Manager Relationship Specialty Start Date End Date Garth Berg MD [address] [place] [address] PCP - General General Internal Medicine 03/02/17 documented as of this encounter
[2023-10-08 16:33] LABS: COMMENT (LAB VIEW ONLY) 64.72 mg/dL; Microalb ug/mg Crea 16.1 ug/mg Cr
== END 2023-10-08 10:46 | disposition home or self-care (01) ==
LOC: NCHCN 10:45
PROVIDERS: PCP Student in an Organized Health Care Education/Training Program; Visit Provider Student in an Organized Health Care Education/Training Program
DX: E11.9 Type 2 diabetes mellitus without complications (principal)
CPT/HCPCS: 82043; 82570

== ENCOUNTER 2023-10-15 02:27 | Outpatient (CLI) | payer MEDICARE, MEDICAID, SELFPAY ==
--- OUTSIDE RECORDS SUMMARY | 2023-10-06 01:32 | XMS_ITS | Encounter Summary ---
Author Organization [facility] Address [address] [place] [address] Care Team Providers Care Hat Designer Name Role Phone Garth Marroquin DO Primary Care Provider [phone] Reason for Visit * Reason Onset Date Comments Appointment Related 11/30/2017 Reschedule I R Biopsy Encounter Details Date Type Department Care Team (Late st Contact Info) Description 11/30/2017 Telephone [facility] Interventional Radiology - [facility] [address] [place], [place] [id number] Colton Edmond MD [address] [facility], Level [address] [place] [address] Appointment Related (Reschedule IR Biopsy) [...] on filedocumented in this encounter Care Teams Hat Designer Relationship Specialty Start Date End Date Garth Marroquin DO [address] [place] [address] PCP - General 10/30/17 documented as of this encounter
--- OUTSIDE RECORDS SUMMARY | 2023-10-06 01:32 | XMS_ITS | Encounter Summary ---
Author Organization [facility] Address [address] [place] [address] Care Team Providers Care Staff Electronic Warfare Officer Name Role Phone Garth Marroquin DO Primary Care Provider [phone] Encounter Details Date Type Department Care Team (Late st Contact Info) Description 07/04/2022 Lab Requisition [facility] Pathology & Laboratory Medicine - [facility] [address] [place], [place] [address] Outr Resulting Lab, Provider Social History Tobacco [...] PSA 0.6 <=3.5 ng/mL 07/07/2022 9:23 EDT [facility] Blood VENOUS BLOOD / Unknown 07/04/2022 15:00 EDT 07/04/2022 21:27 EDT Narrative [facility] - 07/07/2022 9:23 EDT NOTE: Serum PSA concentration should not be interpreted as absolute evidence for the presence or absence of malignant disease. Assayed on Siemens ADVIA Teaboxaur XPT using chemiluminescent technology.??Values obtained by using different assay methods cannot be used interchangeably. Provider Outr Resulting Lab CHEMISTRY & BLOOD GAS ORDERABLES [facility] [address] [place] [address] documented in this encounter Visit Diagnoses Not on filedocumented in this encounter Care Teams Staff Electronic Warfare Officer Relationship Specialty Start Date End Date Garth Marroquin DO [address] [facility] [place] [address] PCP - General 10/30/17 documented as of this encounter
--- OUTSIDE RECORDS SUMMARY | 2023-10-06 01:32 | XMS_ITS | Encounter Summary ---
Author Organization [facility] Address [address] [place] [address] Care Team Providers Care Flask Maker Name Role Phone Garth Marroquin DO Primary Care Provider [phone] Encounter Details Date Type Department Care Team (Latest Contact Info) Description 05/14/2018 8:47 EDT - 05/14/2018 23:59 EDT Hospital Encounter [address] [address] Unknown, Provider, Discharge Disposition: Home or Self [...] Code Departure Means Destination Home or Self Long-Term documented in this encounter Plan of Treatment Not on file documented as of this encounter Visit Diagnoses Not on filedocumented in this encounter Care Teams Flask Maker Relationship Specialty Start Date End Date Garth Marroquin DO [address] [place] [address] PCP - General 10/30/17 documented as of this encounter
--- OUTSIDE RECORDS SUMMARY | 2023-10-06 01:32 | XMS_ITS | Clinical Summary ---
Author Organization [facility] Address [address] [place] [address] Care Team Providers Care Proofreader Name Role Phone Garth Marroquin DO Primary Care Provider [phone] Allergies Active Allergy Reactions Criticality Noted Date [...] History Medical History Date Comments Diabetes mellitus ([facility]) Hypertension Smoking greater than 40 pack years [...] - 1-dose 60+ series) 2023 Care Teams Proofreader Relationship Specialty Start Date End Date Garth Marroquin DO [address] [place] [address] PCP - General 10/30/17
--- OUTSIDE RECORDS SUMMARY | 2023-10-06 01:32 | XMS_ITS | Encounter Summary ---
Author Organization [facility] Address [address] [place] [address] Care Team Providers Care Probe Operator Name Role Phone Garth Marroquin DO Primary Care Provider [phone] Reason for Visit * Reason Onset Date Comments Appointment Related 11/17/2017 IR BX Encounter Details Date Type Department Care Team (Late st Contact Info) Description 11/17/2017 Telephone [facility] Interventional Radiology - [facility] [address] [place], [place] [id number] Colton Edmond MD [address] [facility], [address] [place] [address] Appointment Related (IR BX ) [...] They understand that they will need a light truck driver, and that they should plan [...] on filedocumented in this encounter Care Teams Probe Operator Relationship Specialty Start Date End Date Garth Marroquin DO [address] [place] [address] PCP - General 10/30/17 documented as of this encounter
--- OUTSIDE RECORDS SUMMARY | 2023-10-06 01:32 | XMS_ITS | Encounter Summary ---
Author Organization [facility] Address [address] [place] [address] Care Team Providers Care Podiatry Professor Name Role Phone Garth Marroquin DO Primary Care Provider [phone] Encounter Details Date Type Department Care Team (Late st Contact Info) Description 04/17/2021 Lab Requisition [facility] Pathology & Laboratory Medicine - [facility] [address] [place], [place] [address] Outr Resulting Lab, Provider Social History Tobacco [...] 3.59 See Note mg/L 04/17/2021 21:50 EST [facility] Comment: Reference Range: ??Low Risk: ? <1.0 mg/L ??Average Risk: ?? 1.0 - 3.0 mg/L ??High Risk: ?>3.0 mg/L ??Indeterminate*: >10.0 mg/L ??*May be an indication of another source of inflammation or infection Blood VENOUS BLOOD / Unknown 04/17/2021 10:45 EST 04/17/2021 21:30 EST Provider Outr Resulting Lab CHEMISTRY & BLOOD GAS ORDERABLES Performing Organization Address City/State/[facility] Co de Phone Number [facility] [address] [place] [address] documented in this encounter Visit Diagnoses Not on filedocumented in this encounter Care Teams Podiatry Professor Relationship Specialty Start Date End Date Garth Marroquin DO [address] [facility] [place] [address] PCP - General 10/30/17 documented as of this encounter
--- OUTSIDE RECORDS SUMMARY | 2023-10-06 01:32 | XMS_ITS | Encounter Summary ---
Author Organization [facility] Address [address] [place] [address] Care Team Providers Care Fire Truck Driver Name Role Phone Garth Marroquin DO Primary Care Provider [phone] Reason for Referral * Radiology Services (Routine) - Authorization Not Required Specialty Diagnoses / Procedures Referred By Contac t Referred To Contact Diagnoses Lung nodule Procedures CT CHEST W CONTRAST Troy Ray MD [address] [place] [phone] Referral ID Status Reason Start Date Expiration Date Visits Requested Visits Authorized [id number] Authorization Not Required 11/02/2017 1 1 Reason for Visit * Reason Comments New Patient Visit * Consult (Routine) - Closed Specialty Diagnoses / Procedures Referred By Contyashira grossman Referred To Contact Diagnoses Pulmonary nodule Garth Marroquin DO [address] [place] [phone] Referral ID Status Reason Start Date Expiration Date Visits Re quested Visits Authorized [id number] Closed 1 1 Encounter Details Date Type Department Care Team (Late st Contact Info) Description 11/02/2017 10:00 EDT Office Visit [facility] Pulmonology & Critical Care - [address] [phone] Troy Ray MD [address] [place] [phone] Lung nodule (Primary Dx) Discharge Disposition: Auto [...] nicotine overdose. Counseling available to assist you [place] [employer] You have chosen the [place] [employer] Quit by Phone program. Once you have [...] describedunder Medications to Help You Succeed. Call 3-185-AOGD-NOW ( ) or contact them via the [place] [employer] website at www.[employer].org. I hope you quit smoking. I think it's the best thing you can do for your health. Please call our office if you have any questions. 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 He is [...] Medical History: Diagnosis Date ??? Diabetes mellitus ([facility]) ??? Hypertension ??? Obstructive sleep apnea [...] associated adenopathy. This can be done in [facility]. Following this, he may need a percutaneous biopsy or PET scan. 2. Active smoking. He is currently smoking 2 packs per day. We had a long discussion today about the risks of smoking particularly while we are evaluating potentially treating a lung cancer. Even if this does not shirt turner to be cancer, smoking cessation is strongly encouraged. We discussed using patches plus the nicotine inhaler. RECOMMENDATIONS 1. CT scan of the chest to be requested from [facility]. I instructed the patient to call our [...] of these investigations. Please call me at [phone] if any further questions arise. Troy Ray MD Pulmonary and Critical Care Medicine [facility] Other Orders Placed This Visit [...] daily. added in this encounter Care Teams Fire Truck Driver Relationship Specialty Start Date End Date Garth Marroquin DO [address] [facility] [place] [phone] PCP - General 10/30/17 documented as of this encounter
--- OUTSIDE RECORDS SUMMARY | 2023-10-06 01:32 | XMS_ITS | Clinical Summary ---
Author Organization [facility] Address One [facility] [place] [address] Care Team Providers Care Clinical Resource Director Name Role Phone Judd Pizarro MD Primary Care Provider [phone] Allergies Active Allergy Reactions Criticality Noted Date [...] by mouth daily. 02/17/2022 Active HYDROcodone-acetam inophen ([place]) 5-325 mg Tablet TAKE 1 TABLET BY [...] Hemoglobin A1c 6.2(H) 4.3 - 5.6 % [facility] Comment: Reference Range: 4.3 - 5.6% [...] Mellitus, Diabetes Care 2013; 36: Suppl. 1, L53-81 Estimated Average Glucose 130 mg/dL [facility] Comment: eAG equivalents for HbA1c percentages: [...] into estimated average glucose values. ??Diabetes Care 2008:31(8):4834-8097. Blood 02/20/2022 5:47 PM EST 02/20/2022 5:54 PM EST Narrative Resulting Agency Comment Spec In Lab Tessie Robles MD CHEMISTRY ORDERABLES [facility] [place] [address] * (ABNORMAL) Comprehensive metabolic panel (non-fasting) (02/20/2022 5:47 PM EST) Glucose 134 65 - 199 mg/dL [facility] Comment:Diabetes: >=200 mg/d L plus symptoms Blood Urea Nitrogen 16 10 - 20 mg/dL [facility] Creatinine 1.16 0.80 - 1.50 mg/dL [facility] Sodium 139 135 - 145 mmol/L [facility] Potassium 4.3 3.5 - 5.0 mmol/L [facility] Comment: Please note: ??Patients with WBC >100,000 may have falsely elevated Potassium levels. ??For accurate Potassium quantification in these patients send serum separator tube (gold top) for subsequent determinations. ??Contact the Clinical Chemistry Laboratory if there are any questions. Chloride 105 98 - 107 mmol/L [facility] Carbon Dioxide 21(L) 22 - 31 mmol/L [facility] Anion Gap 13 5 - 15 mmol/L [facility] Calcium 9.4 8.5 - 10.5 mg/dL [facility] Protein, Total 6.9 6.1 - 8.0 g/dL [facility] Albumin 4.4 3.2 - 5.2 g/dL [facility] Aspartate Aminotransferase 14 0 - 39 unit/L [facility] Alanine Aminotransferase 26 0 - 55 unit/L [facility] Alkaline Phosphatase 120 40 - 130 unit/L [facility] Bilirubin, Total <0.2(L) 0.2 - 1.3 mg/dL [facility] Est Glomerular Filtration Rate 73 >=60 mL/min/1. 73 m?? [facility] Comment: This patient's estimated GFR was [...] In Lab Tessie Robles MD CHEMISTRY ORDERABLES [facility] [place] [address] from Last 3 Months or Most Recently Relevant to Health Maintenance Advance Directives Documents on File Type Date Recorded Patient Director Of Player Personnel Expl anation Advance Directives and Livin g Will 03/23/2017 11:39 AM * Full Code (Latest Code Status on File) Date Activated Date Inactivated Comments 03/20/2017 2:40 PM 03/21/2017 3:33 PM Question Answer Comments Does patient have capacity to make decision: Yes Care Teams Clinical Resource Director Relationship Specialty Start Date End Date Judd Pizarro MD [address] [place] [phone] PCP - General Family Medicine 06/20/21
--- OUTSIDE RECORDS SUMMARY | 2023-10-06 01:32 | XMS_ITS | Encounter Summary ---
Author Organization [facility] Address [address] [place] [address] Care Team Providers Care Rn Care Transition Name Role Phone Garth Marroquin DO Primary Care Provider [phone] Reason for Visit * Reason Onset Date Comments Patient Information Update 11/06/2017 Results 11/09/2017 Returning Call 11/09/2017 Encounter Details Date Type Department Care Team (Late st Contact Info) Description 11/06/2017 Telephone [facility] Pulmonology & Critical Care - [facility] [address] [place] [address] Troy Ray MD [address] [place] [address], [address] [place] [address] Patient Information Update; Results; Returning [...] Howard RN - 11/06/2017 1324 EDT Called [facility] and requested that results/images be pushed [...] on filedocumented in this encounter Care Teams Rn Care Transition Relationship Specialty Start Date End Date Garth Marroquin DO [address] [facility] [place] [address] PCP - General 10/30/17 documented as of this encounter
--- OUTSIDE RECORDS SUMMARY | 2023-10-06 01:32 | XMS_ITS | Encounter Summary ---
Author Organization [facility] Address [address] [place] [address] Care Team Providers Care Film Technician Name Role Phone Garth Marroquin DO Primary Care Provider [phone] Encounter Details Date Type Department Care Team (Late st Contact Info) Description 09/17/2019 Lab Requisition [facility] Pathology & Laboratory Medicine - [address] [phone] Outr Resulting Lab, Provider Social History Tobacco [...] MICROBIOLOGY - GENERAL ORDERABLES Performing Organization Address City/State/[facility] Co de Phone Number [facility] [address] [place] [address] * COVID-19 TESTING (09/17/2019 13:37 EDT) COVID-19 rt-PCR Result Negative Negative 09/18/2019 13:41 EDT [facility] Comment: This test has not [...] history, and epidemiological information. Performed on the Tidemarkher Fusion instrument Performing Lab [facility] Lab 09/18/2019 13:41 EDT [facility] Swab 09/17/2019 13:3 7 EDT 09/18/2019 9:35 EDT Provider Outr Resulting Lab MICROBIOLOGY - GENERAL ORDERABLES Performing Organization Address [facility] Co de Phone Number [facility] [address] [place] [address] documented in this encounter Visit Diagnoses Not on filedocumented in this encounter Care Teams Film Technician Relationship Specialty Start Date End Date Garth Marroquin DO [address] [place] [phone] PCP - General 10/30/17 documented as of this encounter
--- OUTSIDE RECORDS SUMMARY | 2023-10-06 01:32 | XMS_ITS | Encounter Summary ---
Author Organization [facility] Address [address] [place] [address] Care Team Providers Care Janitor And Cleaner Name Role Phone Garth Marroquin DO Primary Care Provider [phone] Encounter Details Date Type Department Care Team (Late st Contact Info) Description 10/24/2019 Lab Requisition [facility] Pathology & Laboratory Medicine - [facility] [address] [place], [place] [address] Outr Resulting Lab, Provider Social History Tobacco [...] rt-PCR Result NEGATIVE Negative 10/25/2019 12:27 EDT ED [facility] Comment: 2019-novel Coronavirus (2019-nCoV) not [...] in accordance with CLIA regulations, College of [employer] (CAP) guidelines (May 05, 2019), and FDA guidance (Apr 16, 2019). This test is only for use under the Food and Drug Administration's Emergency Use Authorization. Swab ENTIRE NASOPHARYNX / Unknown 10/24/2019 9:09 EDT 10/24/2019 19:46 EDT Provider Outr Resulting Lab MICROBIOLOGY - GENERAL ORDERABLES ED [facility] [place], [place] * COVID-19 TESTING (10/24/2019 9:09 EDT) COVID-19 rt-PCR Result NEGATIVE Negative 10/25/2019 14:38 EDT ED [facility] Comment: 2019-novel Coronavirus (2019-nCoV) not [...] in accordance with CLIA regulations, College of [employer]ologists (CAP) guidelines (May 05, 2019), and FDA guidance (Apr 16, 2019). This test is only for use under the Food and Drug Administration's Emergency Use Authorization. Performing Lab [facility] 10/25/2019 14:38 EDT [facility] Swab 10/24/2019 9:09 EDT 10/24/2019 19:46 EDT Provider Outr Resulting Lab MICROBIOLOGY - GENERAL ORDERABLES Performing Organization Address City/State/[facility] Co de Phone Number [facility] [address] [place] [phone] ED [facility] [place], [place] documented in this encounter Visit Diagnoses Not on filedocumented in this encounter Care Teams Janitor And Cleaner Relationship Specialty Start Date End Date Garth Marroquin DO [address] [place] [address] PCP - General 10/30/17 documented as of this encounter
--- OUTSIDE RECORDS SUMMARY | 2023-10-06 01:32 | XMS_ITS | Encounter Summary ---
Author Organization [facility] Address [address] [place] [address] Care Team Providers Care Base Brander Name Role Phone Garth Marroquin DO Primary Care Provider [phone] Encounter Details Date Type Department Care Team (Late st Contact Info) Description 07/18/2019 Lab Requisition [facility] Pathology & Laboratory Medicine - [facility] [address] [place] [address] Angus Raza MD [address] [place] [phone] Gastro-esophageal reflux disease without esophagitis; Right lower [...] features compatible with glycogenic acanthosis. 07/19/2019 17:16 [facility] at 1716 Attestation By the signature below, the attending physician certifies that they have 1) personally conducted a gross and/or microscopic examination of the described specimen(s), and/or personally interpreted the results of laboratory testing of the described specimen(s), and 2) personally rendered or confirmed the above diagnosis. 07/19/2019 17:16 [facility] at 1716 Clinical History Esophageal plaque; gastric erosion 07/19/2019 17:16 [facility] Gross Description A. [...] C1. Petty Rawls 07/18/2019 15:58 07/19/2019 17:16 [facility] Scanned Images 07/19/2019 17:16 [facility] Tissue ENTIRE ESOPHAGUS / Unknown 07/15/2019 7:45 EDT 07/18/2019 15:36 EDT Tissue specimen (specimen) STOMACH STRUCTURE / Unknown 07/15/2019 7:45 EDT 07/18/2019 15:36 EDT Tissue specimen (specimen) ESOPHAGEAL STRUCTURE / Unknown 07/15/2019 7:45 EDT 07/18/2019 15:36 EDT Angus Raza MD PATHOLOGY ORD ERABLES [facility] [address] [place] [address] documented in this encounter Visit Diagnoses Diagnosis Gastro-esophageal reflux disease without esophagitis Esophageal reflux Right lower quadrant pain Abdominal pain, right lower quadrant documented in this encounter Care Teams Base Brander Relationship Specialty Start Date End Date Garth Marroquin DO [address] [place], [place] [address] [place] [address] PCP - General 10/30/17 documented as of this encounter
--- OUTSIDE RECORDS SUMMARY | 2023-10-06 01:32 | XMS_ITS | Encounter Summary ---
Author Organization [facility] Address [address] [place] [address] Care Team Providers Care Corncob Pipe Supervisor Name Role Phone Unavailable Primary Care Provider Unavailabl e Encounter Details Date Type Department Care Team (Late st Contact Info) Description 09/26/2014 Results Only [facility] [phone] Umang Rayo MD [address] [facility] [address] [place] [address] Social History Tobacco Use Types [...] ? MANNIE RODRIGUEZ ? Accession #: ? [id number] ? : ? 1965 (Age: 49) ??M [...] Valdez 09/27/2014 11:29 AM End of Report [facility] 09/26/2014 9:03 EDT 09/27/2014 9:03 EDT Umang Rayo MD PATHOLOGY ORDERABLES Performing Organization Address City/State/[facility] Co de Phone Number [facility] [address] [place] [address] documented in this encounter Visit Diagnoses Not on filedocumented in this encounter
--- OUTSIDE RECORDS SUMMARY | 2023-10-06 01:32 | XMS_ITS | Encounter Summary ---
Author Organization [facility] Address [address] [place] [address] Care Team Providers Care Dance Studio Manager Name Role Phone Unavailable Primary Care Provider Unavailabl e Encounter Details Date Type Department Care Team (Late st Contact Info) Description 03/13/2002 Results Only [facility] - Maple conversion [address] [place] [address] Zhanna Ho MD [address] [place] [place] [phone] Social History Tobacco Use Types Packs/Day [...] ? MANNIE RODRIGUEZ ? Accession #: ? [id number] : ? 1965 (Age: 36) ??M ?Collect Date: ? 03/13/2002 Location: ? [facility] ? Receive Date: ? 03/15/2002 Provider: ? ZHANNA HO MD Copy to: ?[facility] [employer]ING REPAIRER HELPER ? CYTOLOGIC DIAGNOSIS: ? Urine, voided, cytologic material: - No malignant cells identified. ??See comment. ? COMMENT: ? The specimen is overall of very low cellularity. ??There are rare markedly degenerated but benign appearing transitional cells present. ??(Dr. Faith)/[facility] Document reviewed and electronically signed by: ? [...] Ho MD PATHOLOGY ORDERABLES [facility] [address] [place] [address] documented in this encounter Visit Diagnoses Not on filedocumented in this encounter
--- OUTSIDE RECORDS SUMMARY | 2023-10-06 01:32 | XMS_ITS | Encounter Summary ---
Author Organization [facility] Address [address] [place] [address] Care Team Providers Care Main Galley Scullion Name Role Phone Garth Marroquin DO Primary Care Provider [phone] Encounter Details Date Type Department Care Team (Late st Contact Info) Description 12/16/2017 Pre-Procedure Orders Encounter [facility] Interventional Radiology Unit [address] [place] [address] Nicholas Tabares PA-C [address] [facility] [address] [place] [phone] Social History Tobacco Use Types Packs/Day Years [...] on filedocumented in this encounter Care Teams Main Galley Scullion Relationship Specialty Start Date End Date Garth Marroquin DO [address] [place] [phone] PCP - General 10/30/17 documented as of this encounter
--- OUTSIDE RECORDS SUMMARY | 2023-10-06 01:32 | XMS_ITS | Encounter Summary ---
Author Organization [facility] Address [address] [place] [address] Care Team Providers Care Test Case Developer Name Role Phone Garth Berg MD Primary Care Provider Unav ailable Encounter Details Date Type Department Care Team (Late st Contact Info) Description 09/29/2017 Results Only Imaging [facility] [phone] Unknown, Provider, Social History Tobacco Use Types [...] on filedocumented in this encounter Care Teams Test Case Developer Relationship Specialty Start Date End Date Garth Berg MD PCP - General 09/29/14 10/29/17 documented as of this encounter
--- OUTSIDE RECORDS SUMMARY | 2023-10-06 01:32 | XMS_ITS | Referral Summary ---
Author Organization [facility] Address [address] [place] [address] Care Team Providers Care Bat Carrier Name Role Phone Garth Marroquin DO Primary Care Provider [phone] Allergies Active Allergy Reactions Criticality Noted Date [...] of Treatment Not on file Care Teams Bat Carrier Relationship Specialty Start Date End Date Garth Marroquin DO [address] [place] [phone] PCP - General 9/14/18
--- OUTSIDE RECORDS SUMMARY | 2023-10-06 01:32 | XMS_ITS | Encounter Summary ---
Author Organization [facility] Address [address] [place] [address] Care Team Providers Care Pallet Repairer Name Role Phone Unavailable Primary Care Provider Unavailabl e Encounter Details Date Type Department Care Team (Latest Contact Info) Description 09/26/2014 11:21 EDT - 09/26/2014 23:59 EDT Hospital Encounter [address] [address] Unknown, Provider, Discharge Disposition: Home or Self Care Social History Tobacco Use Types Packs/Day Years Used Date Smoking Tobacco: Never Assessed Sex and Gender Information Value Date Recorded Sex Assigned at Not on file Gender Identity Not on file Sexual Orientation Not on file documented as of this encounter Discharge Disposition Disposition Code Departure Means Destination Home or Self Assisted documented in this encounter Plan of Treatment Not on file documented as of this encounter Visit Diagnoses Not on filedocumented in this encounter
--- OUTSIDE RECORDS SUMMARY | 2023-10-06 01:32 | XMS_ITS | Encounter Summary ---
Author Organization [facility] Address [address] [place] [address] Care Team Providers Care Dosimetrist Name Role Phone Garth Marroquin DO Primary Care Provider [phone] Encounter Details Date Type Department Care Team (Late st Contact Info) Description 05/17/2018 Results Only [facility] [phone] Sonny Medina MD [address] [place] [address] Social History Tobacco Use Types [...] MANNIE RODRIGUEZ JR ? Accession #: ? [id number] ? : ? 1965 (Age: 52) ??M [...] (ASCP) 05/17/2018 4:40 PM End of Report [facility] 05/14/2018 16:3 3 EDT 05/17/2018 16:33 EDT Sonny Medina MD PATHOLOGY ORDERABLES [facility] [address] [place] [address] documented in this encounter Visit Diagnoses Not on filedocumented in this encounter Care Teams Dosimetrist Relationship Specialty Start Date End Date Garth Marroquin DO [address] [place] [phone] PCP - General 10/30/17 documented as of this encounter
--- OUTSIDE RECORDS SUMMARY | 2023-10-06 01:32 | XMS_ITS | Encounter Summary ---
Author Organization [facility] Address [address] [place] [address] Care Team Providers Care Clerical Warehouseman Name Role Phone Garth Marroquin DO Primary Care Provider [phone] Encounter Details Date Type Department Care Team (Late st Contact Info) Description 06/12/2020 Lab Requisition [facility] Pathology & Laboratory Medicine - [address] [address] Desmond Rogers MD [address] [place] [phone] Other microscopic hematuria Social History Tobacco Use [...] Name Priority Date/Time Associated Diagnosis Comments NON CAR SWEEPER/FNA CYTOLOGY Today 06/11/2020 8:00 EDT Other microscopic hematuria documented in this encounter Results * NON CAR SWEEPER/FNA CYTOLOGY (06/11/2020 8:00 EDT) Final Diagnosis URINE, BARBOTAGE, CYTOLOGIC EVALUATION: - Negative for high grade urothelial carcinoma. 06/12/2020 14:18 EDT [facility] Attestation By the signature below, the attending physician certifies that they have personally conducted a gross and/or microscopic examination of the described specimens and rendered or confirmed the above diagnosis. 06/12/2020 14:18 EDT [facility] at 1418 Clinical History Microscopic hematuria; R31.29 06/12/2020 14:18 EDT [facility] Gross Description A. 70 ccs of slightly cloudy, pale pink fluid, of which 35 ccs are composed of Cytolyt, were received and processed by selective cellular enhancement technique. 06/12/2020 14:18 EDT [facility] Performing Lab [facility] 06/12/2020 14:18 EDT [facility] Scanned Images 06/12/2020 14:18 EDT [facility] Urine URINE SPECIMEN / Unknown 06/11/2020 8:00 EDT 06/12/2020 7:44 EDT Desmond Rogers MD PATHOLOGY ORDERAB LES [facility] [address] [place] [address] documented in this encounter Visit Diagnoses Diagnosis Other microscopic hematuria documented in this encounter Care Teams Clerical Warehouseman Relationship Specialty Start Date End Date Garth Marroquin DO [address] [place] [phone] PCP - General 10/30/17 documented as of this encounter
--- OUTSIDE RECORDS SUMMARY | 2023-10-06 01:32 | XMS_ITS | Encounter Summary ---
Author Organization [facility] Address [address] [place] [address] Care Team Providers Care Behavioral Medical Director Name Role Phone Garth Marroquin DO Primary Care Provider [phone] Encounter Details Date Type Department Care Team (Late st Contact Info) Description 06/23/2020 Lab Requisition [facility] Pathology & Laboratory Medicine - [facility] [address] [place] [address] Angus Raza MD [address] [place] [phone] Encounter for screening for malignant neoplasm [...] - Deeper sections x3 examined. 06/27/2020 9:33 [facility] Attestation By the signature below, the attending physician certifies that they have 1) personally conducted a gross and/or microscopic examination of the described specimen(s), and/or personally interpreted the results of laboratory testing of the described specimen(s), and 2) personally rendered or confirmed the above diagnosis. 06/27/2020 9:33 [facility] at 0933 Clinical History Abdominal pain, history of adenomatous polyps, fatty liver; clinical diagnosis code: Z12.11, R10.31, Z86.010 06/27/2020 9:33 [facility] Gross Description A. [...] C1. JAMES MYERS(ASCP) 06/25/2020 10:15 06/27/2020 9:33 [facility] Performing Lab [facility] 06/27/2020 9:33 [facility] Scanned Images 06/27/2020 9:33 [facility] Tissue ENTIRE SIGMOID COLON / Unknown 06/22/2020 7:31 EDT 06/23/2020 9:41 EDT Tissue specimen (specimen) TRANSVERSE COLON STRUCTURE / Unknown 06/22/2020 7:31 EDT 06/23/2020 9:41 EDT Tissue specimen (specimen) SIGMOID COLON STRUCTURE / Unknown 06/22/2020 7:31 EDT 06/23/2020 9:41 EDT Angus Raza MD PATHOLOGY ORD ERABLES [facility] [address] [place] [address] documented in this encounter Visit Diagnoses Diagnosis Encounter for screening for malignant neoplasm of colon Special screening for malignant neoplasms, colon Right lower quadrant pain Abdominal pain, right lower quadrant Personal history of colonic polyps documented in this encounter Care Teams Behavioral Medical Director Relationship Specialty Start Date End Date Garth Marroquin DO [address] [place] [address] PCP - General 10/30/17 documented as of this encounter
--- OUTSIDE RECORDS SUMMARY | 2023-10-06 01:32 | XMS_ITS | Encounter Summary ---
Author Organization [facility] Address [address] [place] [address] Care Team Providers Care Shed Boss Name Role Phone Garth Marroquin DO Primary Care Provider [phone] Encounter Details Date Type Department Care Team (Late st Contact Info) Description 11/09/2017 Orders Only [facility] Pulmonology & Critical Care - [address] [address] Troy Ray MD [address] [facility], [address] [place] [id number] Lung nodule (Primary Dx) Social History Tobacco [...] nodule documented in this encounter Care Teams Shed Boss Relationship Specialty Start Date End Date Garth Marroquin DO [address] [place] [address] PCP - General 10/30/17 documented as of this encounter
--- OUTSIDE RECORDS SUMMARY | 2023-10-06 01:32 | XMS_ITS | Encounter Summary ---
Author Organization [facility] Address [address] [facility] [place] [address] Care Team Providers Care Well Service Pump Equipment Operator Name Role Phone Judd Pizarro MD Primary Care Provider [phone] Encounter Details Date Type Department Care Team [...] on filedocumented in this encounter Care Teams Well Service Pump Equipment Operator Relationship Specialty Start Date End Date Judd Pizarro MD [facility] [place] [address] PCP - General Family Medicine 06/20/21 documented as of this encounter
--- OUTSIDE RECORDS SUMMARY | 2023-10-06 01:32 | XMS_ITS | Encounter Summary ---
Author Organization [facility] Address [address] [place] [address] Care Team Providers Care Supervisor Of Research Name Role Phone Garth Marroquin DO Primary Care Provider [phone] Encounter Details Date Type Department Care Team (Late st Contact Info) Description 03/30/2020 Lab Requisition [facility] Pathology & Laboratory Medicine - [address] [id number] Outr Resulting Lab, Provider Social History Tobacco [...] 0.0 - 3.5 ng/mL 03/30/2020 18:03 EST [facility] Blood VENOUS BLOOD / Unknown 03/29/2020 13:40 EST 03/30/2020 16:30 EST Narrative [facility] - 03/30/2020 18:03 EST NOTE: Serum PSA concentration should not be interpreted as absolute evidence for the presence or absence of malignant disease. Assayed on Siemens ADVIA Centaur XPT using chemiluminescent technology.??Values obtained by using different assay methods cannot be used interchangeably. Provider Outr Resulting Lab CHEMISTRY & BLOOD GAS ORDERABLES [facility] [address] [place] [address] documented in this encounter Visit Diagnoses Not on filedocumented in this encounter Care Teams Supervisor Of Research Relationship Specialty Start Date End Date Garth Marroquin DO [address] [place] [address] PCP - General 10/30/17 documented as of this encounter
--- OUTSIDE RECORDS SUMMARY | 2023-10-06 01:32 | XMS_ITS | Encounter Summary ---
Author Organization [facility] Address [address] [place] [address] Care Team Providers Care Ball Machine Operator Name Role Phone Garth Marroquin DO Primary Care Provider [phone] Encounter Details Date Type Department Care Team (Late st Contact Info) Description 11/06/2017 Results Only Imaging [facility] [phone] Unknown, Provider, Social History Tobacco Use Types [...] on filedocumented in this encounter Care Teams Ball Machine Operator Relationship Specialty Start Date End Date Garth Marroquin DO [address] [place] [address] PCP - General 10/30/17 documented as of this encounter
--- OUTSIDE RECORDS SUMMARY | 2023-10-06 01:33 | XMS_ITS | Encounter Summary ---
Author Organization [facility] Address [facility] [place] [address] Care Team Providers Care Patient Care Representative Name Role Phone Judd Pizarro MD Primary Care Provider [phone] Reason for Visit * Reason Comments Follow-up Weight management Encounter Details Date Type Department Care Team ([facility] st Contact Info) Description 02/20/2022 4:30 PM EST Office Visit Weight and Wellness at [address] [address] Tessie Robles MD [facility] DR HALIM[address] [place] [address] Class 2 obesity with body mass index [...] Robles MD - 02/20/2022 4:30 PM EST [facility] [place] Patient Name: Pavan Padilla Date of : [...] Osteoarthritis. This is a Visit #4 [facility] visit for this 56 y.o. patient. Weight gain due to: less activity, weight gaining medications, increased intake and [facility] Barriers: adentulous Initial visit: 09/27/20 Initial weight: 231# Initial BMI: 38.17 kg/m??. Goal weight: 165 10% loss: 210# Other goals: Improve diabetes Today's weight: 233 Change since prior: + 16# [facility] Team: Tessie Robles MD, Nolvia Saleh RD and Aguilar Lagunas, Health Commercial Or Institutional Cleaner - all pending HPI Patient here today [...] 141 09/27/2020 Lab Results Component Value Date [id number] 09/27/2020 25-OH Vit D Total (ng/mL) [...] PM EST) LDL Cholesterol, Direct 52 mg/dL [facility] Comment: Lowest Risk: <100 mg/dL Lower Risk: 100-129 mg/dL Borderline High Risk: 130-159 mg/dL High Risk: 160-189 mg/dL Very High Risk: >xm=248 mg/dL Blood 02/20/2022 5:47 PM EST 02/20/2022 6:00 PM EST Narrative Resulting Agency Comment Spec In Lab Tessie Robles MD [place] [address] * (ABNORMAL) Differential, Automated (02/20/2022 5:47 PM EST) Neutrophil % 52.2 % [facility] Neutrophil Absolute 5.61 1.70 - 6.10 x10(3)/mc L [facility] Lymph % 33.6 % [facility] Lymphocytes Abs 3.6(H) 0.9 - 3.2 x10(3)/mc L [facility] Monocyte % 8.4 % [facility] Monocyte Abs 0.9 0.3 - 0.9 x10(3)/ L [facility] Eos % 2.4 % [facility] Eosinophils Abs 0.3 0.0 - 0.4 x10(3)/[facility] Basophil % 1.3 % [facility] Baso Absolute 0.1 0.0 - 0.1 x10(3)/ L [facility] Immature Gran % 2.10 % [facility] Comment: Immature granulocytes(IG's)percentage and absolute count will include metamyelocytes, myelocytes, and promyelocytes. Blood smears from CBCs yielding IG's will be scanned manually for concordance. If this scan disagrees with the automated IG or if promyelocytes are noted, a manual differential will be performed. Immature Gran Absolute 0.22(H) 0.00 - 0.04 x10(3)/ L [facility] Blood 02/20/2022 5:47 PM EST 02/20/2022 5:54 PM EST Narrative Resulting Agency Comment Spec In Lab Tessie Robles MD HEMATOLOGY ORDERABLE S Performing Organization Address City/[facility]/[place] [address] * (ABNORMAL) Hemogram (02/20/2022 5:47 PM EST) White Blood Cell 10.7(H) 4.0 - 9.5 x10(3)/mc L [facility] Red Blood Cell 5.71(H) 4.58 - 5.54 x10(6)/mc L [facility] Hemoglobin 17.4(H) 13.7 - 16.5 g/dL [facility] Hematocrit 50.7(H) 40.5 - 48.5 % [facility] Mean Cell Volume 88.8 82.9 - 93.1 fL [facility] Mean Cell Hemoglobin 30.5 27.5 - 32.1 pg [facility] Mean Cell Hemoglobin Concentration 34.3 32.0 - 35.7 g/dL [facility] Platelet 220 145 - 357 x10(3)/mc L [facility] RDW Standard Deviation 41.6 36.0 - 45.0 fL [facility] RDW coefficient of variation 12.8 11.4 - 13.8 % [facility] Mean Platelet Volume 10.7 7.6 - 12.9 fL [facility] NRBC% auto 0.0 % [facility] NRBC Absolute 0.000 0.000 - 0.000 x10(3)/mc L [facility] Blood 02/20/2022 5:47 PM EST 02/20/2022 5:54 PM EST Narrative Resulting Agency Comment Spec In Lab Tessie Robles MD HEMATOLOGY ORDERABLE S Performing Organization Address City/[facility] Co de Phone Number [facility] [place] [address] * Biorepository Request (02/20/2022 5:47 PM EST) Pathologist [facility] Biorepository Hold Sample in lab [facility] Blood 02/20/2022 5:47 PM EST 02/21/2022 11:01 AM EST Narrative Resulting Agency Comment Spec In Lab Tessie Robles MD MOLECULAR ORDERABLES Performing Organization Address City/[facility]/ZIP Co de Phone Number [facility] [place] [address] * Lipid Panel (Reflex Direct LDL) (02/20/2022 5:47 PM EST) Pathologist [facility] Cholesterol, Total 134 mg/dL [facility] Comment: Lower Risk: <200 mg/dL Average Risk: 200-239 mg/dL Higher Risk: >ez=459 mg/dL Triglyceride 536 mg/dL [facility] Comment: Average Risk/Lower Risk: <150 mg/dL Borderline High Risk: 150-199 mg/dL High Risk: 200-499 mg/dL Very High Risk: >mn=208 mg/dL HDL Cholesterol 25 mg/dL [facility] Comment: Males: ?? Higher Risk: <40 mg/dL Females: ?? Higher Risk: <50 mg/dL LDL Cholesterol Not Calculated [facility] Comment: Calculated LDL value is not valid for triglycerides greater than 400 mg/dl. Lowest Risk: <100 mg/dL Lower Risk: 100-129 mg/dL Borderline High Risk: 130-159 mg/dL High Risk: 160-189 mg/dL Very High Risk: >wm=090 mg/dL Cholesterol/HDL Ratio 5.4 ratio [facility] Lipid Interpretation See Note [facility] Comment: Lipid management should be guided by a patient? s ASCVD risk, goals and preferences. ACC/AHA Guidelines recommend high intensity statin if clinical ASCVD or LDL greater than or equal to 190 mg/dL. http://[employer].com/SJD-AMX-Oilydbhmg Adults aged 40-75 with LDL 70-189 mg/dL should have their 10 year ASCVD risk estimated with the ACC/AHA ASCVD risk box estimator http://tools.acc.org/FOQRQ-Toll-Btbxqtdyg/ Statin should be discussed if risk greater [...] In Lab Tessie Robles MD CHEMISTRY ORDERABLES [facility] [place] [address] * (ABNORMAL) Hemoglobin A1c (02/20/2022 5:47 PM EST) Hemoglobin A1c 6.2(H) 4.3 - 5.6 % [facility] Comment: Reference Range: 4.3 - [...] Mellitus, Diabetes Care 2013; 36: Suppl. 1, J14-64 Estimated Average Glucose 130 mg/dL [facility] Comment: eAG equivalents for HbA1c [...] into estimated average glucose values. ??Diabetes Care 2008:31(8):8810-8107. Blood 02/20/2022 5:47 PM EST 02/20/2022 5:54 PM EST Narrative Resulting Agency Comment Spec In Lab Tessie Robles MD CHEMISTRY ORDERABLES [facility] [address] * (ABNORMAL) Comprehensive metabolic panel (non-fasting) (02/20/2022 5:47 PM EST) Glucose 134 65 - 199 mg/dL [facility] Comment:Diabetes: >=200 mg/d L plus symptoms Blood Urea Nitrogen 16 10 - 20 mg/dL [facility] Creatinine 1.16 0.80 - 1.50 mg/dL [facility] Sodium 139 135 - 145 mmol/L [facility] Potassium 4.3 3.5 - 5.0 mmol/L [facility] Comment: Please note: ??Patients with WBC >100,000 may have falsely elevated Potassium levels. ??For accurate Potassium quantification in these patients send serum separator tube (gold top) for subsequent determinations. ??Contact the Clinical Chemistry Laboratory if there are any questions. Chloride 105 98 - 107 mmol/L [facility] Carbon Dioxide 21(L) 22 - 31 mmol/L [facility] Anion Gap 13 5 - 15 mmol/L [facility] Calcium 9.4 8.5 - 10.5 mg/dL [facility] Protein, Total 6.9 6.1 - 8.0 g/dL [facility] Albumin 4.4 3.2 - 5.2 g/dL [facility] Aspartate Aminotransferase 14 0 - 39 unit/L [facility] Alanine Aminotransferase 26 0 - 55 unit/L [facility] Alkaline Phosphatase 120 40 - 130 unit/L [facility] Bilirubin, Total <0.2(L) 0.2 - 1.3 mg/dL [facility] Est Glomerular Filtration Rate 73 >=60 mL/min/1. 73 m?? [facility] Comment: This patient's estimated GFR [...] In Lab Tessie Robles MD CHEMISTRY ORDERABLES [facility] [place] [address] documented in this encounter Visit Diagnoses Diagnosis [...] present documented in this encounter Care Teams Patient Care Representative Relationship Specialty Start Date End Date Judd Pizarro MD [address] [place] [address] PCP - General Family Medicine 06/20/21 documented as of this encounter
--- OUTSIDE RECORDS SUMMARY | 2023-10-06 01:33 | XMS_ITS | Encounter Summary ---
Author Organization [facility] Address [facility] [place] [address] Care Team Providers Care Glass Inserter Name Role Phone Garth Marroquin DO Primary Care Provider [phone] Encounter Details Date Type Department Care Team (Late st Contact Info) Description 11/08/2020 Telephone Weight and Wellness at [facility] [address] [place] [address] [address] [facility] [place] [address] Social History Tobacco Use Types Packs/Day Years [...] filedocumented in this encounter Care Teams Glass Inserter Relationship Specialty Start Date End Date Garth Marroquin DO [address] [place] [address] PCP - General Family Medicine 03/02/20 06/19/21 documented as of this encounter
--- OUTSIDE RECORDS SUMMARY | 2023-10-06 01:33 | XMS_ITS | Encounter Summary ---
Author Organization [facility] [place] [address] Care Team Providers Care Credentials Specialist Name Role Phone Garth Marroquin DO Primary Care Provider [phone] Encounter Details Date Type Department Care Team (Late st Contact Info) Description 03/21/2021 Telephone Weight and Wellness at [facility] [address] [place] [address] Martina Jerome, DONOVAN Social History [...] PM EST [facility] Developmental Therapist Pre-telemedicine Visit Phone Note Pavan Padilla 1965 [x] Patient was not reached Patient was reached and the following information was reviewed/obtained per protocol: [] Confirmed patient name and date of [] Confirmed ZOOM downloaded and functioning [] ZOOM appointment link sent if no MyDH [] Phone number to be reached is: [phone] REVIEW: [] Review of patient medications completed [...] on filedocumented in this encounter Care Teams Credentials Specialist Relationship Specialty Start Date End Date Garth Marroquin DO [address] [place] [address] PCP - General Family Medicine 03/02/20 06/19/21 documented as of this encounter
--- OUTSIDE RECORDS SUMMARY | 2023-10-06 01:33 | XMS_ITS | Encounter Summary ---
Author Organization [facility] Address [facility] [place] [address] Care Team Providers Care Caterpillar Driver Name Role Phone Judd Pizarro MD Primary Care Provider [phone] Reason for Visit * Reason Comments Follow-up Weight managment Encounter Details Date Type Department Care Team ([facility] st Contact Info) Description 06/20/2021 9:15 AM EDT Office Visit Weight and Wellness at [address] [address] Tessie Robles MD [facility] DR [address]IM[address] [place] [address] Class 1 obesity due to excess calories [...] 06/20/2021 9:[address] Fournier - [facility]. I will try to get the results [...] seen while via [] Video [] phone [facility] [place] Patient Name: Pavan Padilla Date of : [...] withneuropathy, Osteoarthritis. This is a Visit #4 [facility] visit for this 55 y.o. patient. Weight gain due to: less activity, weight gaining medications, increased intake and frequent snacking on [facility] Barriers: adentulous Initial visit: 09/27/20 Initial weight: 231# Initial BMI: 38.17 kg/m??. Goal weight: 165 10% loss: 210# Other goals: Improve diabetes Today's weight: 217 Change since prior: -2.75# [facility] Team: Tessie Robles MD, Nolvia Saleh RD and Aguilar Lagunas, Health Livestock Feeder - all pending HPI HYPOTENSION - noted [...] behavioral interventions, see goals Referrals: Dietitian, Health Livestock Feeder, AOM: Increase semaglutide for DM and weight [...] present documented in this encounter Care Teams Caterpillar Driver Relationship Specialty Start Date End Date Judd Pizarro MD [address] [place] [address] PCP - General Family Medicine 06/20/21 documented as of this encounter
--- OUTSIDE RECORDS SUMMARY | 2023-10-06 01:33 | XMS_ITS | Encounter Summary ---
Author Organization [facility] [address] Care Team Providers Care Director Visual Name Role Phone Judd Pizarro MD Primary Care Provider [phone] Reason for Visit * Reason Onset Date Comments Appointment 09/27/2021 Encounter Details Date Type Department Care Team (Late st Contact Info) Description 09/27/2021 Telephone Weight and Wellness at [facility] [address] [place] [address] Daria Huynh Appointment Social History [...] on filedocumented in this encounter Care Teams Director Visual Relationship Specialty Start Date End Date Judd Pizarro MD [facility] [place] [address] PCP - General Family Medicine 06/20/21 documented as of this encounter
--- OUTSIDE RECORDS SUMMARY | 2023-10-06 01:33 | XMS_ITS | Encounter Summary ---
Author Organization [facility] [place] [address] Care Team Providers Care Surgery Specialist Name Role Phone Garth Marroquin DO Primary Care Provider [phone] Reason for Visit * Reason Onset Date Comments Medication Refill 01/16/2021 Encounter Details Date Type Department Care Team (Late st Contact Info) Description 01/16/2021 Refill Weight and Wellness at [address] [phone] Martina Jerome, DIRECTORY CLERK Class 2 obesity due to excess calories [...] insulin documented in this encounter Care Teams Surgery Specialist Relationship Specialty Start Date End Date Garth Marroquin DO [facility] [place] [place] [address] PCP - General Family Medicine 03/02/20 06/19/21 documented as of this encounter
--- OUTSIDE RECORDS SUMMARY | 2023-10-06 01:33 | XMS_ITS | Encounter Summary ---
Author Organization [facility] Address [facility] [place] [address] Care Team Providers Care Glass Production Machine Operator Name Role Phone Judd Pizarro MD Primary Care Provider [phone] Encounter Details Date Type Department Care Team (Late st Contact Info) Description 09/19/2021 Orders Only Weight and Wellness at [facility] [address] [place] [phone] Tessie Robles MD [facility] [address] [place] [address] Obesity, unspecified classification, unspecified obesity type, unspecified [...] * Biorepository Request (02/20/2022 5:47 PM EST) [facility] Biorepository Hold Sample in lab [facility] Blood 02/20/2022 5:47 PM EST 02/21/2022 11:01 AM EST Narrative Resulting Agency Comment Spec In Lab Tessie Robles MD [place] [address] documented in this encounter Visit Diagnoses Diagnosis Obesity, unspecified classification, unspecified obesity type, unspecified whether serious comorbidity present documented in this encounter Care Teams Glass Production Machine Operator Relationship Specialty Start Date End Date Judd Pizarro MD [address] [place] [address] PCP - General Family Medicine 06/20/21 documented as of this encounter
--- OUTSIDE RECORDS SUMMARY | 2023-10-06 01:33 | XMS_ITS | Encounter Summary ---
Author Organization [facility] [place] [address] Care Team Providers Care Community Service Manager Name Role Phone Garth Marroquin DO Primary Care Provider [phone] Encounter Details Date Type Department Care Team (Late st Contact Info) Description 04/30/2021 Telephone Weight and Wellness at [facility] [address] [place] [address] Emilie Galvan, RN Social History [...] on filedocumented in this encounter Care Teams Community Service Manager Relationship Specialty Start Date End Date Garth Marroquin DO [address] [place] [address] PCP - General Family Medicine 03/02/20 06/19/21 documented as of this encounter
--- OUTSIDE RECORDS SUMMARY | 2023-10-06 01:33 | XMS_ITS | Encounter Summary ---
Author Organization [facility] [place] [address] Care Team Providers Care Substation Operator Apprentice Name Role Phone None Primary Care Provider Unavailabl e Encounter Details Date Type Department Care Team (Late st Contact Info) Description 11/15/2019 Telephone [place] [phone] Eva Morin, VIDEOGAME TESTER Social History Tobacco Use Types Packs/Day Years [...] Morin - 11/15/2019 2:50 PM EDT [employer] Pelletizer Pre-Telemedicine Phone Note [] Patient not reached [...] on filedocumented in this encounter Care Teams Substation Operator Apprentice Relationship Specialty Start Date End Date None None PCP - General 01/22/18 03/01/20 documented as of this encounter
--- OUTSIDE RECORDS SUMMARY | 2023-10-06 01:33 | XMS_ITS | Encounter Summary ---
Author Organization [facility] Address [facility] [place] [address] Care Team Providers Care Gopherman Name Role Phone Judd Pizarro MD Primary Care Provider [phone] Encounter Details Date Type Department Care Team (Latest Contact Info) Description 07/04/2021 10:30 AM EDT TH Visit (TeleHealth) Weight and Wellness at [address] [address] Nolvia Saleh, RD [facility] [place] [address] Adult BMI 34.0-34.9 kg/sq m Social History [...] past visits. Please reach out with a Attunity message if you have any questions or [...] was at home at the following address: [address] [place] [address] Weight Today: 212 at the doctor the [...] crystal light or other sugar-free additive [] [place] (natural or artificial flavoring or plain only) [...] initial visit Thank you Nolvia Saleh RD [facility] 30 minutes were spent in visit [...] adult documented in this encounter Care Teams Gopherman Relationship Specialty Start Date End Date Judd Pizarro MD [facility] [place] [address] PCP - General Family Medicine 06/20/21 documented as of this encounter
--- OUTSIDE RECORDS SUMMARY | 2023-10-06 01:33 | XMS_ITS | Encounter Summary ---
Author Organization [facility] Address [facility] [place] [address] Care Team Providers Care Twist Tester Name Role Phone Garth Marroquin DO Primary Care Provider Reason for Visit * Reason Comments Establish Care Weight managment * Consultation (Routine) - Closed Specialty Diagnoses / Procedures Referred By Edis grossman Referred To Contact Weight and Wellness Diagnoses Localized adiposity BMI > 30 Garth Marroquin DO [address] [place] [address] [facility] [address] [place] [address] Referral ID Status Reason Start Date Expiration Date V isits Requested Visits Authorized [id number] Closed Consult, [facility] PCP Updated and/or Approved 02/23/2020 02/22/2021 6 6 Encounter Details Date Type Department Care Team (Late st Contact Info) Description 09/27/2020 10:00 AM EDT Office Visit Weight and Wellness at [facility] [address] [place] [address] Tessie Robles MD [facility] [address] [place] [address] Class 2 obesity due to [...] dietary choices. You will see a health coach tour driver who will talk to you about behaviors [...] 3 business days, please call us at: [phone]. Below is a summary of our discussion [...] on all of these pillars, and each engineer steam, will help you set achievable, actionable goals, [...] the disease of obesity) Appetite control The blood bank attendant, The GoGetter and The Sleepy Executive 720 - Chuyita video Sleep apnea and weight https://www.sleepfoundation.org/sleep-apnea/bnuoxj-syyx-fhs-sleep-apnea Insulin resistance and weight https://obesitymedicine.org/lvvfkxt-xdo-xmmarhk-resistance/ https://www.secondnature.io/us/guides/diabetes/lynjxav-jhxppkuilm-kmpjmw-gain Dr. Brigido Dai: Fasting as a Therapeutic Option for Weight Loss - [employer] Systems[employer] Https://www.youPrestodiagube.com/watch?v=cl2fcoij7iQ https://www.youPrestodiagube.com/watch?v=97Qha9BgIFQ The Mediterranean Diet https://Local Matters.org/ https://www.health.carney.edu/blog/c-drflqokva-nqwxe-nv-hdb-mhtlobryeixul-diet- 8436681432671 An important thing to remember as you [...] a general recommendation for all patients. Your motorsports technician and provider will help make more specific [...] increasing mindfulness throughout the day. Your health coach tour driver is well-equipped to guide you to find something to look forward to everyday. Eating behaviors: many people benefit from restricting the hours in which they eat. You can choose an eating window of 8-12 hours to start. Make a pact with yourself that you will not take in anything with caloric content outside this window. Your motorsports technician may make further recommendations GLP 1 Receptor [...] the same way that they help diabetics. https://www.diabeteseducator.org/practice/practice-tools/rhzmlzpq-peoaptztlq-vel ls/jng-5-eekpcpxgr https://www.diabeteseducator.org/docs/default-source/practice/educator-tools/glp -1-medications/understanding_glp_final.pdf?sfvrsn=2 The following informational sheet will provide instruction for how to store and inject the injectable forms of GLP1 Fito. https://www.diabeteseducator.org/practice/practice-tools/phkoysua-vjkywqzjrg-qrb ls/elk-2-hmsvsvhhk documented in this encounter Progress Notes * Tessie Robles MD - 09/27/2020 10:00 AM EDTSummary: initial consult [facility] Patient Name: Pavan Padilla Date of : 1965 Age: 55 y.o. Referring provider: Garth Marroquin Dear Garth Marroquin DO, Thank you for referring Pavan Padilla to the [facility] [place] for a consultationfor obesity management. I reviewed [...] again for allowing the [facility] [place] to join [place]'s healthcare team. SUMMARY OF VISIT: Pavan Padilla presented to the [facility] for a consultative visit regarding obesity management. [...] medications: Glipizide, gabapentin, amitriptyline Referrals: [x]Nutrition [x]Health coach tour driver []Sleep medicine []Bariatric surgery []GI []Behavioral health []ACT group [x]Research coordinator CHIEF COMPLAINT: Management of excess weight HISTORY OF PRESENT ILLNESS: Weight History: [facility] Weight History 09/27/2020 What is the most [...] medications, increased intake and frequent snacking on [facility] Importance 09/27/2020 How important is it [...] a diff brand, cravings resumed. 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 male with uncontrolled obesity who presented to [facility] today for medical evaluation with associated co-morbidities: [...] [x]Consider ACT, for unplanned eating event with [facility] Activity: provided resistance bands and booklet Barriers: [...] behavioral interventions, see goals Referrals: Dietitian, Health Women'S Swim Coach, AOM: D/c glipizide and start semaglutide for [...] changes that are significant. Care pathway: Pathway: [facility] PATHWAY - ADULT 09/27/2020 Adult Biobank Activate Return in about 4 weeks (around 10/25/2020) for MD Nagel or clinic, //RD 1-2 wks, //HC 2wks after RD. I spoke with Pavan about opportunities to participate in research and to be contacted by our research pest controller assistant. They indicated that they are: [x] INTERESTED [] NOT INTERESTED // [] NOT ADDRESSED [facility] Initial Responses 09/27/2020 URICA - Readiness Score 12.33 (Preparation State) WEL-SF Total Scores 72 PHQ-2 SubScore 0 (Brief screen negative) GAD2 Subscore 0 (Brief screen negative) PROMIS 10 Physical Scores 37.4 PROMIS 10 Mental Scores 48.3 Total REAP-S Scores 17 TFEQ - Uncontrolled Eating (UE) 29.62 TFEQ-Cognitive Restraint (CR) 11 TFEQ-Emotional Eating 27.77 Food Insecurity Score 2 [place] Category I Result 1 (Negative) [place] Category II Result 1 (Negative) [place] Category III 1 (Positive) [place] Sleep Apnea Total 3 (High Risk) Schooling [...] LDL Cholesterol, Direct (09/27/2020 11:41 AM EDT) [facility] LDL Cholesterol, Direct 79 mg/dL [facility] Comment: Lowest Risk: <100 mg/dL Lower Risk: 100-129 mg/dL Borderline High Risk: 130-159 mg/dL High Risk: 160-189 mg/dL Very High Risk: >yi=371 mg/dL Blood 09/27/2020 11:4 1 AM EDT 09/27/2020 12:48 PM EDT Narrative Resulting Agency Comment Spec In Lab Tessie Robles MD CHEMISTRY ORDERABLES Performing Organization Address City/[facility] Co de Phone Number [facility] [place] [address] * Biorepository Request (09/27/2020 11:41 AM EDT) [facility] Biorepository Hold Sample in lab [facility] Blood 09/27/2020 11:4 1 AM EDT 09/27/2020 1:25 PM EDT Narrative Resulting Agency Comment Spec In Lab Tessie Robles MD MOLECULAR ORDERABLES Performing Organization Address City/[facility]/ZIP Co de Phone Number [facility] [place] [address] * Hepatic Function Panel (09/27/2020 11:41 AM EDT) [facility] Protein, Total 6.8 6.1 - 8.0 gm/dL [facility] Albumin 4.2 3.2 - 5.2 gm/dL [facility] Aspartate Aminotransferase 22 0 - 39 unit/L [facility] Alanine Aminotransferase 35 0 - 55 unit/L [facility] Alkaline Phosphatase 102 40 - 130 unit/L [facility] Bilirubin, Total 0.2 0.2 - 1.3 mg/dL [facility] Bilirubin, Direct 0.1 0.0 - 0.3 mg/dL [facility] Blood 09/27/2020 11:4 1 AM EDT 09/27/2020 12:48 PM EDT Narrative Resulting Agency Comment Spec In Lab Tessie Robles MD CHEMISTRY ORDERABLES Performing Organization Address City/State/[facility] Co de Phone Number [facility] [place] [address] * Lipid Panel (Reflex Direct LDL) (09/27/2020 11:41 AM EDT) [facility] Cholesterol, Total 188 mg/dL [facility] Comment: Lower Risk: <200 mg/dL Average Risk: 200-239 mg/dL Higher Risk: >yn=558 mg/dL Triglyceride 668 mg/dL [facility] Comment: Average Risk/Lower Risk: <150 mg/dL Borderline High Risk: 150-199 mg/dL High Risk: 200-499 mg/dL Very High Risk: >uh=685 mg/dL HDL Cholesterol 22 mg/dL [facility] Comment: Males: ?? Higher Risk: <40 mg/dL Females: ?? Higher Risk: <50 mg/dL LDL Cholesterol Not Calculated [facility] Comment: Lowest Risk: <100 mg/dL Lower Risk: 100-129 mg/dL Borderline High Risk: 130-159 mg/dL High Risk: 160-189 mg/dL Very High Risk: >du=878 mg/dL Calculated LDL value is not valid for triglycerides greater than 400 mg/dl. Cholesterol/HDL Ratio 8.5 ratio [facility] Lipid Interpretation See Note [facility] Comment: Lipid management should be guided by a patient? s ASCVD risk, goals and preferences. ACC/AHA Guidelines recommend high intensity statin if clinical ASCVD or LDL greater than or equal to 190 mg/dL. http://Amobee.com/GJO-TUS-Butuwkhhv Adults aged 40-75 with LDL 70-189 mg/dL should have their 10 year ASCVD risk estimated with the ACC/AHA ASCVD risk tag machine operator http://tools.acc.org/ZADVJ-Xktc-Gqnwohorl/ Statin should be discussed if risk greater [...] In Lab Tessie Robles MD CHEMISTRY ORDERABLES [facility] [place] [address] * (ABNORMAL) Hemoglobin A1c (09/27/2020 11:41 AM EDT) Hemoglobin A1c 8.0(H) 4.3 - 5.6 % [facility] Comment: Reference Range: 4.3 - [...] Mellitus, Diabetes Care 2013; 36: Suppl. 1, S67-72 Estimated Average Glucose 182 mg/dL [facility] Comment: eAG equivalents for HbA1c [...] into estimated average glucose values. ??Diabetes Care 2008:31(8):1471-9889. Blood 09/27/2020 11:4 1 AM EDT 09/27/2020 12:47 PM EDT Narrative Resulting Agency Comment Spec In Lab Tessie Robles MD CHEMISTRY ORDERABLES [facility] [place] [address] * Ferritin (09/27/2020 11:41 AM EDT) [facility] Ferritin 141 30 - 400 ng/mL [facility] Comment: Pediatric reference ranges not verified at [facility], interpret with caution. Reference ranges for females greater than 50 years of age approach values for men, i.e., 30-400 ng/mL. Blood 09/27/2020 11:4 1 AM EDT 09/27/2020 4:28 PM EDT Narrative Resulting Agency Comment Spec In Lab Tessie Robles MD CHEMISTRY ORDERABLES Performing Organization Address City/[facility]/ZIP Co de Phone Number [facility] [place] [address] * Vitamin B12 (09/27/2020 11:41 AM EDT) Vitamin B12 423 232 - 1,245 pg/mL [facility] Blood 09/27/2020 11:4 1 AM EDT 09/27/2020 4:28 PM EDT Narrative Resulting Agency Comment Spec In Lab Tessie Robles MD CHEMISTRY ORDERABLES Performing Organization Address [facility] Co de Phone Number [facility] [place] [address] * Vitamin D, 25-Hydroxy (09/27/2020 11:41 AM EDT) Vitamin D Total 25 OH 41 21 - 100 ng/mL [facility] Vit D Interp Sufficient [facility] Blood 09/27/2020 11:4 1 AM EDT 09/27/2020 4:28 PM EDT Narrative Resulting Agency Comment Spec In Lab Tessie Robles MD CHEMISTRY ORDERABLES Performing Organization Address City/[facility]/ZIP Co de Phone Number [facility] [place] [address] * (ABNORMAL) POCT glycated hemoglobin, total (HA1C) [...] disorder documented in this encounter Care Teams Twist Tester Relationship Specialty Start Date End Date Garth Marroquin DO [address] [place] [address] PCP - General Family Medicine 03/02/20 06/19/21 documented as of this encounter
--- OUTSIDE RECORDS SUMMARY | 2023-10-06 01:33 | XMS_ITS | Encounter Summary ---
Author Organization [facility] [place] [address] Care Team Providers Care Director Of Tax Services Name Role Phone None Primary Care Provider Unavailabl e Encounter Details Date Type Department Care Team (Late st Contact Info) Description 12/19/2019 3:00 PM EST TH Visit (TeleHealth) [place] [address] Mary Alice Nesbitt MD [facility] [place] [address] Tobacco abuse Social History Tobacco Use Types [...] from the original note were not included. [facility] Section of Pulmonary and Critical Care [...] or questions arise. Mary Alice Nesbitt MD Exercise InstructDrying Machine Tender Pulmonary and [place] [address] documented in this encounter Plan of Treatment Not on file documented as of this encounter Visit Diagnoses Diagnosis Tobacco abuse Tobacco use disorder documented in this encounter Care Teams Director Of Tax Services Relationship Specialty Start Date End Date None None PCP - General 01/22/18 03/01/20 documented as of this encounter
--- OUTSIDE RECORDS SUMMARY | 2023-10-06 01:33 | XMS_ITS | Encounter Summary ---
[place] [address] Care Team Providers Care Rotary Surface Grinder Name Role Phone Garth Marroquin DO Primary Care Provider [phone] Reason for Visit * Reason Onset Date Comments Appointment 11/14/2020 Encounter Details Date Type Department Care Team (Late st Contact Info) Description 11/14/2020 Telephone Weight and Wellness at [facility] [address] [place] [address] Trini Mcduffie Appointment Social History [...] on filedocumented in this encounter Care Teams Rotary Surface Grinder Relationship Specialty Start Date End Date Garth Marroquin DO [address] [place] [address] PCP - General Family Medicine 03/02/20 06/19/21 documented as of this encounter
--- OUTSIDE RECORDS SUMMARY | 2023-10-06 01:33 | XMS_ITS | Encounter Summary ---
Author Organization [facility] [place] [address] Care Team Providers Care Taxi Servicer Name Role Phone Judd Pizarro MD Primary Care Provider [phone] Reason for Visit * Reason Onset Date Comments Appointment 11/29/2021 Encounter Details Date Type Department Care Team (Late st Contact Info) Description 11/29/2021 Telephone Weight and Wellness at [facility] [address] [place] [address] Mariam Reynoso V Appointment Social History Tobacco [...] on filedocumented in this encounter Care Teams Taxi Servicer Relationship Specialty Start Date End Date Judd Pizarro MD [address] [place], [place] [address] [address] PCP - General Family Medicine 06/20/21 documented as of this encounter
--- OUTSIDE RECORDS SUMMARY | 2023-10-06 01:33 | XMS_ITS | Encounter Summary ---
Author Organization [facility] Address [facility] [place] [address] Care Team Providers Care And Taxi Instructor Bus Trolley Name Role Phone Garth Marroquin DO Primary Care Provider [phone] Encounter Details Date Type Department Care Team (Late st Contact Info) Description 12/21/2020 9:00 AM EDT Office [place] [address] Mary Alice Nesbitt MD [facility] [place] [address] Tobacco abuse; Personal history of nicotine dependence [...] from the original note were not included. [facility] Section of Pulmonary and Critical Care Medicine Outpatient Consultation Date of Encounter: 12/21/2020 Referring Provider: No referring provider defined for this encounter. Reason for Evaluation: Tobacco use/lung nodule History of Present Illness: Mr. Padilla is a 55-year-old male who presents today for a follow-up visit. After his last visit with ne, he had a CT chest for lung [...] screening CT chest in November 2020 at [facility], results of which are unavailable to [...] [place] with [place] [facility]. 2. Tobacco abuse ?? The patient continues [...] or questions arise. Mary Alice Nesbitt MD Sleeper CutterQuality Control Representative Pulmonary [place] [address] documented in this encounter Plan of Treatment [...] health documented in this encounter Care Teams And Taxi Instructor Bus Trolley Relationship Specialty Start Date End Date Garth Marroquin DO [address] [place] [address] PCP - General Family Medicine 03/02/20 06/19/21 documented as of this encounter
--- OUTSIDE RECORDS SUMMARY | 2023-10-06 01:33 | XMS_ITS | Encounter Summary ---
Author Organization [facility] [place] [address] Care Team Providers Care Air Value Tester Name Role Phone Garth Marroquin DO Primary Care Provider [phone] Encounter Details Date Type Department Care Team (Late st Contact Info) Description 12/27/2020 Telephone Weight and Wellness at [facility] [address] [place] [address] Emilie Galvan, RN Social History [...] on filedocumented in this encounter Care Teams Air Value Tester Relationship Specialty Start Date End Date Garth Marroquin DO [address] [place] [address] PCP - General Family Medicine 03/02/20 06/19/21 documented as of this encounter
--- OUTSIDE RECORDS SUMMARY | 2023-10-06 01:33 | XMS_ITS | Encounter Summary ---
Author Organization [facility] Address [facility] [place] [address] Care Team Providers Care Oncology Account Specialist Name Role Phone Judd Pizarro MD Primary Care Provider [phone] Encounter Details Date Type Department Care Team (Late st Contact Info) Description 09/26/2021 10:45 AM EDT TH Visit (TeleHealth) Weight and Wellness at [address] [address] [address] [facility] [place] [place] [address] Adult BMI 34.0-34.9 kg/sq m Social History [...] was at home at the following address: [address] [place] [address] Weight Today: Wt Readings from Last 3 [...] eggs, white toast, sausage or fox L: [place]-ham or turkey, cheese, mustard, sometimes lettuce D: Burgers or chicken on grill, cauliflower or broccoli, or fresh peas or other veg from garden S: ~ 5pm bowl of ice cream-2 scoops Typical Beverages: [x] coffee [] half and half (unflavored) [x] flavored creamer (sugar) Iranian vanilla [] flavored creamer (sugar-free) [] added sugar - (total: [] added non-caloric sweetener [x] water - (total: 2-3 bottles, 1 near the bed at night [x] plain [] crystal light or other sugar-free additive [] [place] (natural or artificial flavoring or plain only) [...] adult documented in this encounter Care Teams Oncology Account Specialist Relationship Specialty Start Date End Date Judd Pizarro MD [facility] [place] [address] PCP - General Family Medicine 06/20/21 documented as of this encounter
--- OUTSIDE RECORDS SUMMARY | 2023-10-06 01:33 | XMS_ITS | Encounter Summary ---
Author Organization [facility] [place] [address] Care Team Providers Care Press Helper Name Role Phone None Primary Care Provider Unavailabl e Encounter Details Date Type Department Care Team (Late st Contact Info) Description 09/29/2019 Tele[place] [address] Arielle Lord, [facility] Social History Tobacco Use Types Packs/Day [...] Notes * Telephone Encounter - Arielle Lord, [facility] - 09/29/2019 3:44 PM EDT GAP Sitecore Developer Pre-Telemedicine Phone Note [] Patient not reached [x] Patient reached and the following information was reviewed/obtained per protocol: [x] Confirmed patient name and date of [x] Confirmed telemedicine ilda (Vidyo and Virtual Visit) is downloaded and functioning [x] Confirmed location of patient - TeleVisit is taking place in [] [place] [] [place] [] If not on [facility], working on signing up for [facility] [x] Confirmed has completed any pre-visit questionnaires [] If has not received required pre-visit questionnaires, send via [facility] [x] Reviewed patient medications ??? nitroGLYcerin (Nitrostat) [...] filedocumented in this encounter Care Teams Press Helper Relationship Specialty Start Date End Date None None PCP - General 01/22/18 03/01/20 documented as of this encounter
--- OUTSIDE RECORDS SUMMARY | 2023-10-06 01:33 | XMS_ITS | Encounter Summary ---
Author Organization [facility] [place] [address] Care Team Providers Care Waterproof Coating Machine Tender Name Role Phone Garth Marroquin DO Primary Care Provider Encounter Details Date Type Department Care Team (Late st Contact Info) Description 11/21/2020 Ancillary Procedure [place] [phone] Garth Marroquin DO [address] [place], [place] [address] Social History Tobacco Use Types Packs/Day Years [...] CT Chest (11/21/2020 12:00 AM EDT) [facility] 1[facility]29 AM EST This exam is auto-finalizing. It's purpose is for storage only. Garth Marroquin DO [facility] FILM LIBRARY ORD ERABLES Performing Organization Address City/State/[facility] Co de Phone Number [place], [place] documented in this encounter Visit Diagnoses Not on filedocumented in this encounter Care Teams Waterproof Coating Machine Tender Relationship Specialty Start Date End Date Garth Marroquin DO [address] [place] [address] PCP - General Family Medicine 03/02/20 06/19/21 documented as of this encounter
--- OUTSIDE RECORDS SUMMARY | 2023-10-06 01:33 | XMS_ITS | Encounter Summary ---
Author Organization [facility] [place] [address] Care Team Providers Care Medical Billing Coder Name Role Phone None Primary Care Provider Unavailabl e Encounter Details Date Type Department Care Team (Late st Contact Info) Description 10/04/2019 [place] [address] Corinne Frausto Social History Tobacco Use Types [...] on filedocumented in this encounter Care Teams Medical Billing Coder Relationship Specialty Start Date End Date None None PCP - General 01/22/18 03/01/20 documented as of this encounter
--- OUTSIDE RECORDS SUMMARY | 2023-10-06 01:33 | XMS_ITS | Encounter Summary ---
Author Organization [facility] [place] [address] Care Team Providers Care Nursing Clerk Name Role Phone Judd Pizarro MD Primary Care Provider [phone] Reason for Visit * Reason Onset Date Comments Medication Refill 01/06/2022 Encounter Details Date Type Department Care Team (Late st Contact Info) Description 01/06/2022 Refill Weight and Wellness at [address] [phone] Martina Jerome, [facility] Class 1 obesity due to excess calories [...] present documented in this encounter Care Teams Nursing Clerk Relationship Specialty Start Date End Date Judd Pizarro MD [address] [place] [address] PCP - General Family Medicine 06/20/21 documented as of this encounter
--- OUTSIDE RECORDS SUMMARY | 2023-10-06 01:33 | XMS_ITS | Encounter Summary ---
Author Organization [facility] [place] [address] Care Team Providers Care Option Trader Name Role Phone Judd Pizarro MD Primary [...] on filedocumented in this encounter Care Teams Option Trader Relationship Specialty Start Date End Date Judd Pizarro MD [address] [place] [address] PCP - General Family Medicine 06/20/21 documented as of this encounter
--- OUTSIDE RECORDS SUMMARY | 2023-10-06 01:33 | XMS_ITS | Encounter Summary ---
Author Organization [facility] Address [facility] [place] [address] Care Team Providers Care Hair Blender Name Role Phone Garth Marroquin DO Primary Care Provider [phone] Encounter Details Date Type Department Care Team (Late st Contact Info) Description 03/22/2021 8:45 AM EST TH Visit (TeleHealth) Weight and Wellness at [address] [address] Tessie Robles MD [facility] [place] [address] Class 1 obesity due to excess calories [...] Nutrition Change to whole wheat toast or Northern Irish Muffin at breakfast. Instead of 4 eggs , have 2 eggs and peanut butter on the Northern Irish muffin. Consider changing to HalfNHalf or cream [...] a general recommendation for all patients. Your forepart rounder and provider will help make more specific [...] increasing mindfulness throughout the day. Your health golf coach is well-equipped to guide you to find something to look forward to everyday. Eating behaviors: many people benefit from restricting the hours in which they eat. You can choose an eating window of 8-12 hours to start. Make a pact with yourself that you will not take in anything with caloric content outside this window. Your forepart rounder may make further recommendations Medication management If [...] situation you may contact our office at [phone] to schedule an appointment, and we will [...] seen while via [] Video [] phone [facility] Patient Name: Pavan Padilla Date of : 1965 Age: 55 y.o. aGrth Marroquin DO Thank you for referring Pavan [...] withneuropathy, Osteoarthritis. This is a Visit #4 [facility] visit for this 55 y.o. patient. Weight gain due to: less activity, weight gaining medications, increased intake and frequent snacking on PF Barriers: adentulous Initial visit: 09/27/20 Initial weight: 231# Initial BMI: 38.17 kg/m??. Goal weight: 165 10% loss: 210# Other goals: Improve diabetes Today's weight: 219.75, 216 Change since prior: -3.75# [facility] Team: Tessie Robles MD, Justyna Horan RD and Aguilar Lagunas, Health Magnetic Resonance Imaging Coordinator - all pending HPI is worried about his low intake HYPOTENSION - noted on exam today, has monitor at home but has not been following. Asymptomatic. Onamlodipine, lisinopril, hctz. 24hr Dietary 3AM-10AM Coffee with Kinyarwanda vanilla creamer 1/2 cup 8AM 4 eggs, Northern Irish muffin - white with butter. 12N Salad [...] to a diff brand, cravings resumed. Pathway: [facility] PATHWAY - ADULT 09/27/2020 Obesity Medicine Activate Adult Biobank Activate PATHWAY DISCUSSION - individual Movement: [facility]: PAVAmauri 09/27/2020 How many days during the [...] behavioral interventions, see goals Referrals: Dietitian, Health Magnetic Resonance Imaging Coordinator, AOM: Increase semaglutide for DM and weight [...] insulin documented in this encounter Care Teams Hair Blender Relationship Specialty Start Date End Date Garth Marroquin DO [address] [place] [address] PCP - General Family Medicine 03/02/20 06/19/21 documented as of this encounter
--- OUTSIDE RECORDS SUMMARY | 2023-10-06 01:33 | XMS_ITS | Encounter Summary ---
Author Organization [facility] [address] [id number] Care Team Providers Care Cap Parts Cutter Name Role Phone None Primary Care Provider Unavailabl e Reason for Referral * Diagnostic Test (Routine) - Specialty Diagnoses / Procedures Referred By Contac t Referred To Contact Radiology Diagnoses Pulmonary nodule Procedures CT Chest Screening Lung Cancer Ector Garcia MD [facility] [place] [address] [facility] [place] [address] Referral ID Status Reason Start Date Expiration Date Visits Requested Visits Authorized [id number] Specialty Service Requested 11/22/2018 11/22/2019 1 1 Reason for Visit * Diagnostic Test (Routine) - Specialty Diagnoses / Procedures Referred By Contac t Referred To Contact Radiology Diagnoses Pulmonary nodule Procedures CT Chest Screening Lung Cancer Ector Garcia MD [facility] [id number] [facility] [place] [address] Referral ID Status Reason Start Date Expiration Date Visits Requested Visits Authorized [id number] Specialty Service Requested 11/22/2018 11/22/2019 1 1 Encounter Details Date Type Department Care Team (Latest Contact Info) Description 12/23/2019 8:53 AM EST - 12/23/2019 11:59 PM EST Hospital Encounter CT Scan [place] [facility] [place] [id number] Ector Garcia MD [facility] [place] [id number] Pulmonary nodule Discharge Disposition: Home Social History [...] ? Electronically signed by: Salud Beltran MD, [facility] ([phone]), at 12/26/2019 6:44 PM Narrative 12/26/2019 6:44 PM EST EXAMINATION: CT CHEST SCREENING LUNG CANCER CLINICAL HISTORY: Lung Cancer Screening Asymptomatic but at high risk for lung cancer TECHNIQUE: Noncontrast, low-dose chest CT (LDCT) per [facility] lung cancer screening protocol. COMPARISON: 11/22/2018 noncontrast [...] TECHNIQUE: Noncontrast, low-dose chest CT (LDCT) per [facility] lung cancerscreening protocol. COMPARISON: 11/22/2018 noncontrast chest [...] below. Electronically signed by: Salud Beltran MD, [facility]([phone]), at 12/26/2019 6:44 PM Ector Garcia MD IMG CT ORDERABLES documented in this encounter Visit Diagnoses Diagnosis Pulmonary nodule Solitary pulmonary nodule documented in this encounter Care Teams Cap Parts Cutter Relationship Specialty Start Date End Date None None PCP - General 01/22/18 03/01/20 documented as of this encounter
--- OUTSIDE RECORDS SUMMARY | 2023-10-06 01:33 | XMS_ITS | Encounter Summary ---
Author Organization [facility] [place] [address] Care Team Providers Care Tourist Escort Name Role Phone Garth Marroquin DO Primary Care Provider [phone] Reason for Visit * Reason Onset Date Comments Appointment 04/01/2021 Encounter Details Date Type Department Care Team (Late st Contact Info) Description 04/01/2021 Telephone Weight and Wellness at [facility] [address] [place] [address] Daria Huynh Appointment Social History [...] on filedocumented in this encounter Care Teams Tourist Escort Relationship Specialty Start Date End Date Garth Marroquin DO [address] [place] [address] PCP - General Family Medicine 03/02/20 06/19/21 documented as of this encounter
--- OUTSIDE RECORDS SUMMARY | 2023-10-06 01:33 | XMS_ITS | Encounter Summary ---
Author Organization [facility] [place] [address] Care Team Providers Care Bible Reader Name Role Phone Judd Pizarro MD Primary Care Provider [phone] Encounter Details Date Type Department Care Team (Late st Contact Info) Description 06/25/2021 External Results Weight and Wellness at [facility] [address] [place] [phone] Emilie Galvan, RN Social History Tobacco Use [...] on filedocumented in this encounter Care Teams Bible Reader Relationship Specialty Start Date End Date Judd Pizarro MD [facility] [place] [address] PCP - General Family Medicine 06/20/21 documented as of this encounter
--- OUTSIDE RECORDS SUMMARY | 2023-10-06 01:33 | XMS_ITS | Encounter Summary ---
Author Organization [facility] [place] [address] Care Team Providers Care Quality Assurance Lead Name Role Phone Judd Pizarro MD Primary Care Provider [phone] Encounter Details Date Type Department Care Team (Late st Contact Info) Description 05/10/2022 Telephone [place] [phone] Vee Heard MD [facility] [place] [address] Social History Tobacco Use Types Packs/Day Years [...] Heard MD - 05/10/2022 2:01 PM EDT [facility] Call Spoke to Diallo Priest NP [...] Lifestyle On track(2021 11:12 AM EDT) No Tsesie Robles MD Note: First priority is protein: [...] on filedocumented in this encounter Care Teams Quality Assurance Lead Relationship Specialty Start Date End Date Judd Pizarro MD [address] [place] [address] PCP - General Family Medicine 06/20/21 documented as of this encounter
--- OUTSIDE RECORDS SUMMARY | 2023-10-06 01:33 | XMS_ITS | Encounter Summary ---
Author Organization [facility] Address [facility] [place] [address] Care Team Providers Care Equipment Engineer Name Role Phone Judd Pizarro MD Primary Care Provider [phone] Reason for Visit * Reason Comments Hospital Transfer Back Pain Encounter Details Date Type Department Care Team (Late st Contact Info) Description 05/10/2022 4:32 PM EDT - 05/10/2022 10:25 PM EDT Emergency [place] [address] Ann Marie Nweton MD [facility] [place] [address] Meir Sutherland MD [facility] [place] [address] Low back pain, non-specific Discharge Disposition: Home Social History Tobacco Use Types Packs/Day Years Used Date Smoking Tobacco: Every Day Cigarettes 1.5 38 Smokeless Tobacco: Never Alcohol Use Standard Drinks/Week Comments No 0 (1 standard drink = 0.6 oz pure alcohol) Formerly heavy - stopped a few years ago. [facility] Inpatient Questions Answer Date Recorded Does [...] sent through Care Everywhere. * Back Pain (Chadian) * Back: Preventing Injuries (Chadian) documented in this encounter Medications at Time [...] mg by mouth daily. 02/17/2022 HYDROcodone-acetamino phen ([place]) 5-325 mg Tablet TAKE 1 TABLET BY [...] who have questions please contact the health floor care technician that requested your imaging first. U/A: RBC 5 WBC: none Leukocyte negative [...] incontinence last night. He was sent from [facility] for and MRI to rule out caude equina. He presented to the emergency department at [facility] with concerns of urinary incontinence He received [...] who have questions please contact the health floor care technician that requested your imaging first. Spine recommends medrol dose pack. Discharge home. F/u PCP. No surgical intervention indicated at this tie. Assessment/plan: Low back pain Urinary incontinence D/c home F/u PCP Rx Medrol dose pack Return precautions Ann Marie Newton MD 05/10/222034 * Garth Dalal RN - 05/10/2022 3:51 PM EDT Sending Facility: [facility] Reason for Transfer: rule out caudia equina Report: Patient is an alert and oriented 56-year-old male who presented to the emergency department at [facility] with concerns of urinary incontinence. Patient had seen his primary care provider 2 to 3 weeks prior for some lower back pain. Patient had no new trauma or injury to provoke this urinary incontinence. Patient is being transferred to [facility] emergency department for an MRI to rule out cauda equina. Patient is otherwise alert, oriented, pink warm and dry. Vital signs of been stable. 1 g of Tylenol and 10 mg of Decadron have been given Vital Signs: Pulse: B/P: Resp: SPO2: O2 LPM: GCS: BGL: Temp: STEMI ALERT: Has the EKG been transmitted? Yes/No STROKE ALERT: Last Known Well Time: [place] Stroke Scale: + / - FAST-ED Score: TRAUMA ALERT: T9 Alert Consult Lowest Documented BP Transporting Service: [facility] Time of Departure: ETA: 1620 [...] 10 mg by mouth daily. ??? HYDROcodone-acetaminophen ([place]) 5-325 mg Tablet TAKE 1 TABLET BY [...] Lifestyle On track(2021 10:41 AM EDT) No Novlia Saleh RD Note: Pepsi: Continue one can [...] RBC, Urine 5(H) 0 - 3 /HPF [facility] WBC, Urine 0 0 - 3 /HPF [facility] Urine 05/10/2022 9:12 PM EDT 05/10/2022 9:16 PM EDT Narrative Resulting Agency Comment Spec In Lab Danish Arana MD URINE ORDERABLES [facility] [place] [address] * (ABNORMAL) Urinalysis with reflex Culture (05/10/2022 9:12 PM EDT) Glucose, Urine Dipstick Negative Negative mg/dL [facility] Protein, Urine Dipstick Negative Negative mg/dL [facility] Bilirubin, Urine Dipstick Negative Negative mg/dL [facility] Comment: Clinical correlation required for positive Urine Bilirubin results as false positive may occur with some drugs and drug related products. If a false positive is suspected a serum total bilirubin should be considered if clinically indicated. Urobilinogen, Urine Dipstick Normal Normal mg/dL [facility] pH, Urn (dipstick) 6.5 5.0 - 8.0 [facility] Blood, Urine Dipstick Small(A) Negative mg/dL [facility] Ketone, Urine Dipstick Negative Negative mg/dL [facility] Nitrite, Urine Dipstick Negative Negative [facility] Leukocytes, Urine Dipstick Negative Negative mcL [facility] Appearance, Urine Dipstick Clear Clear [facility] Specific [place] Urine Automated 1.013 1.005 - 1.030 [facility] Color, Urine Dipstick Yellow Yellow [facility] Reflex to Culture No [facility] Urine 05/10/2022 9:12 PM EDT 05/10/2022 9:16 PM EDT Narrative Resulting Agency Comment Spec In Lab Ann Marie Newton MD URINE ORDERABLES Performing Organization Address City/State/[facility] Co de Phone Number [facility] [place] [address] * MRI Lumbar Spine wo Contrast (Generic) [...] who have questions please contact the health floor care technician that requested your imaging first. ? Narrative 05/10/2022 6:59 PM EDT EXAMINATION: MRI LUMBAR SPINE WO CONTRAST (GENERIC) CLINICAL HISTORY: Low back pain, cauda equina syndrome suspected Low back pain, cauda equina syndrome suspected TECHNIQUE: MRI of the lumbar spine performed without intravenous contrast administration. COMPARISON: CT lumbar spine dated 05/10/2022 from [facility] FINDINGS: Normal alignment of the 5 lumbar [...] COMPARISON: CT lumbar spine dated 05/10/2022 from [facility] FINDINGS: Normal alignment of the 5 lumbar type vertebral bodies. There is minimal retrolisthesis of L5 on S1 similar to CT examination. Vertebral bodies are normal in height. There is anterior endplateproliferative and reactive changes T11-12 and T12-L1 and to lesser extent L1-2. Disc space narrowing and decreased signal intensity on T2 sequence [id number]. The remaining intervertebral disc spaces are normal [...] the clinical situation (Reference- Vishnuvik Et Al, [id number]). Findings: (Prevalence in patients without low back [...] patients who have questions please contactthe health floor care technician that requested your imaging first. Ann Marie [...] RN) documented in this encounter Care Teams Equipment Engineer Relationship Specialty Start Date End Date Judd Pizarro MD [facility] [place] [address] PCP - General Family Medicine 06/20/21 documented as of this encounter
--- OUTSIDE RECORDS SUMMARY | 2023-10-06 01:33 | XMS_ITS | Encounter Summary ---
Author Organization [facility] [place] [address] Care Team Providers Care Orthopedic Cast Specialist Name Role Phone Judd Pizarro MD Primary Care Provider [phone] Encounter Details Date Type Department Care Team (Late st Contact Info) Description 07/19/2021 Telephone Weight and Wellness at [facility] [address] [place] [address] Mariam Reynoso V Social History [...] on filedocumented in this encounter Care Teams Orthopedic Cast Specialist Relationship Specialty Start Date End Date Judd Pizarro MD [facility] [address] [place] [address] PCP - General Family Medicine 06/20/21 documented as of this encounter
--- OUTSIDE RECORDS SUMMARY | 2023-10-06 01:33 | XMS_ITS | Encounter Summary ---
Author Organization [facility] [place] [address] Care Team Providers Care Fire Extinguisher Tester Name Role Phone Garth Marroquin DO Primary Care Provider [phone] Encounter Details Date Type Department Care Team (Late st Contact Info) Description 05/07/2021 Telephone Sleep Center at [facility] [address] [place] [phone] Emilie Galvan, RN Social History Tobacco Use [...] on filedocumented in this encounter Care Teams Fire Extinguisher Tester Relationship Specialty Start Date End Date Garth Marroquin DO [address] [place] [address] PCP - General Family Medicine 03/02/20 06/19/21 documented as of this encounter
--- OUTSIDE RECORDS SUMMARY | 2023-10-06 01:33 | XMS_ITS | Encounter Summary ---
Author Organization [facility] Address [facility] [place] [address] Care Team Providers Care Steamblaster Name Role Phone Garth Marroquin DO Primary Care Provider [phone] Encounter Details Date Type Department Care Team (Late st Contact Info) Description 04/04/2021 Orders Only Weight and Wellness at [place] [address] [place] [phone] Tessie Robles MD [facility] [address] [place] [address] Obesity, unspecified classification, unspecified obesity type, unspecified [...] present documented in this encounter Care Teams Steamblaster Relationship Specialty Start Date End Date Garth Marroquin DO [address] [place] [address] PCP - General Family Medicine 03/02/20 06/19/21 documented as of this encounter
--- OUTSIDE RECORDS SUMMARY | 2023-10-06 01:33 | XMS_ITS | Encounter Summary ---
Author Organization [facility] [place] [address] Care Team Providers Care Technical Services Manager Name Role Phone Garth Marroquin DO Primary Care Provider [phone] Reason for Visit * Reason Onset Date Comments Appointment 10/16/2020 Encounter Details Date Type Department Care Team (Late st Contact Info) Description 10/16/2020 Telephone Weight and Wellness at [address] [address] Trini Mcduffie Appointment Social History [...] on filedocumented in this encounter Care Teams Technical Services Manager Relationship Specialty Start Date End Date Garth Marroquin DO [facility] [place] [address] PCP - General Family Medicine 03/02/20 06/19/21 documented as of this encounter
--- OUTSIDE RECORDS SUMMARY | 2023-10-06 01:33 | XMS_ITS | Encounter Summary ---
Author Organization [facility] [place] [address] Care Team Providers Care Solar Installation Technician Name Role Phone None Primary Care Provider Unavailabl e Encounter Details Date Type Department Care Team (Late st Contact Info) Description 11/18/2019 Telephone Pulmonology at [facility] [place] [address] Anna Joe LNA Social History Tobacco Use [...] Pt states he told the racing secretary and handicapper when he scheduled and the MA that called him that he doesn't have a computer and can't do video visit. Rescheduled pt for 12/18 for phone visit with Dr. Nesbitt. documented in this encounter Plan of Treatment Not on file documented as of this encounter Visit Diagnoses Not on filedocumented in this encounter Care Teams Solar Installation Technician Relationship Specialty Start Date End Date None None PCP - General 01/22/18 03/01/20 documented as of this encounter
--- OUTSIDE RECORDS SUMMARY | 2023-10-06 01:33 | XMS_ITS | Encounter Summary ---
Author Organization [facility] [place] [address] Care Team Providers Care Supervisor Cytology Name Role Phone Garth Marroquin DO Primary Care Provider [phone] Encounter Details Date Type Department Care Team (Late st Contact Info) Description 12/27/2020 Telephone Weight and Wellness at [facility] [address] [place] [address] Emilie Galvan, RN Social History [...] filedocumented in this encounter Care Teams Supervisor Cytology Relationship Specialty Start Date End Date Garth Marroquin DO [address] [place] [address] PCP - General Family Medicine 03/02/20 06/19/21 documented as of this encounter
--- OUTSIDE RECORDS SUMMARY | 2023-10-06 01:33 | XMS_ITS | Encounter Summary ---
Author Organization [facility] Address [facility] [place] [address] Care Team Providers Care Account Advisor Name Role Phone Garth Marroquin DO Primary Care Provider [phone] Reason for Visit * Reason Comments Follow-up weight managment Encounter Details Date Type Department Care Team (Late st Contact Info) Description 12/20/2020 3:30 PM EDT Office Visit Weight and Wellness at [address] [address] Tessie Robles MD [facility] [place] [address] Class 2 obesity due to excess calories [...] Robles MD - 12/20/2020 3:30 PM EDT [facility] Weight & Wellness [place] Patient Name: Pavan Padilla Date of : [...] Diabetes withneuropathy, Osteoarthritis. This is a folllow-up [facility] visit for this 55 y.o. patient. Weight gain due to: less activity, weight gaining medications, increased intake and frequent [facility] Barriers: adentulous Initial visit: 09/27/20 Initial weight: 231# Initial BMI: 38.17 kg/m??. Goal weight: 165 10% loss: 210# Other goals: Improve diabetes Today's weight: 219.75 Change since prior: -12# [facility] Team: Tessie Robles MD, Justyna Horan RD and Aguilar Lagunas, Health Offline Cutter - all pending HPI is worried about [...] to a diff brand, cravings resumed. Pathway: [facility] PATHWAY - ADULT 09/27/2020 Obesity Medicine [...] skips meals []? Night eating ? Movement: [facility]: PAVS 09/27/2020 How many days during [...] behavioral interventions, see goals Referrals: Dietitian, Health Offline Cutter, AOM: Continue semaglutide for DM and weight [...] type documented in this encounter Care Teams Account Advisor Relationship Specialty Start Date End Date Garth Marroquin DO [address] [place] [address] PCP - General Family Medicine 03/02/20 06/19/21 documented as of this encounter
--- OUTSIDE RECORDS SUMMARY | 2023-10-06 01:33 | XMS_ITS | Encounter Summary ---
Author Organization [facility] Address [facility] [place] [address] Care Team Providers Care Holistic Nutritionist Name Role Phone Judd Pizarro MD Primary Care Provider [phone] Reason for Visit * Reason Comments Medication Refill Encounter Details Date Type Department Care Team (Late st Contact Info) Description 01/22/2021 Refill Weight and Wellness at [address] [address] Tessie Robles MD [facility] [place] [address] Class 2 obesity due to excess calories [...] insulin documented in this encounter Care Teams Holistic Nutritionist Relationship Specialty Start Date End Date Judd Pizarro MD [address] [place] [address] PCP - General Family Medicine 06/20/21 documented as of this encounter
--- OUTSIDE RECORDS SUMMARY | 2023-10-06 01:33 | XMS_ITS | Encounter Summary ---
Author Organization [facility] [place] [address] Care Team Providers Care Swimmer Name Role Phone Judd Pizarro MD Primary Care Provider [phone] Reason for Visit * Reason Onset Date Comments Appointment 05/20/2021 Encounter Details Date Type Department Care Team (Late st Contact Info) Description 05/20/2021 Telephone Weight and Wellness at [facility] [address] [place] [address] Daria Huynh Appointment Social History [...] on filedocumented in this encounter Care Teams Swimmer Relationship Specialty Start Date End Date Judd Pizarro MD [facility] [address] PCP - General Family Medicine 06/20/21 documented as of this encounter
--- OUTSIDE RECORDS SUMMARY | 2023-10-06 01:33 | XMS_ITS | Encounter Summary ---
Author Organization [facility] [place] [address] Care Team Providers Care Patient Navigator Name Role Phone Garth Marroquin DO Primary Care Provider [phone] Encounter Details Date Type Department Care Team (Late st Contact Info) Description 09/17/2020 External Results Weight and Wellness at [facility] [address] [place] [address] Emilie Galvan, RN Social History Tobacco Use [...] Procedure Name Priority Date/Time Associated Diagnosis Comments [facility] EXTERNAL RESULT PANEL Routine 04/23/2020 [...] Historical Provider HEMATOLOGY ORDERA BLES * (ABNORMAL) [facility] External Results (04/23/2020) Blood Urea Nitrogen 16(Utility Locator al Lab) Creatinine 1.2(Exter nal Lab) Sodium 137(Exter nal Lab) Potassium 3.9(Exter nal Lab) Chloride 103(Exter nal Lab) Carbon Dioxide 24(Utility Locator al Lab) Anion Gap 10(Utility Locator al Lab) Calcium 8.8(Exter nal Lab) Protein, Total 7.2(Exter nal Lab) Albumin 3.7(Exter nal Lab) Aspartate Aminotransferase 19(Utility Locator al Lab) Alanine Aminotransferase 39(Utility Locator al Lab) Alkaline Phosphatase 91(Utility Locator al Lab) Bilirubin, Total 0.4(Exter nal Lab) Est Glomerular Filtration Rate >60(Exter nal Lab) Thyroid Stimulating Hormone 1.26(Exte rnal Lab) Glucose 162(ExtH) Troponin-T 0.05(Exte rnal Lab) D-Dimer 354(Exter nal Lab) Lactic Acid 1.6(ExtH) 04/23/2020 Historical Provider POINT OF CARE KENNEY T ORDERABLES documented in this encounter Visit Diagnoses Not on filedocumented in this encounter Care Teams Patient Navigator Relationship Specialty Start Date End Date Garth Marroquin DO [address] [place] [address] PCP - General Family Medicine 03/02/20 06/19/21 documented as of this encounter
--- OUTSIDE RECORDS SUMMARY | 2023-10-06 01:33 | XMS_ITS | Encounter Summary ---
Author Organization [facility] [place] [address] Care Team Providers Care Signal Fitter Name Role Phone Garth Marroquin DO Primary Care Provider [phone] Encounter Details Date Type Department Care Team (Late st Contact Info) Description 12/21/2020 Telephone Weight and Wellness at [facility] [address] [place] [address] Martina Jerome CMA Social History [...] REIS, read her the message from Dr. Rboles below. She stated she would let the [...] on filedocumented in this encounter Care Teams Signal Fitter Relationship Specialty Start Date End Date Garth Marroquin DO [address] [place] [address] PCP - General Family Medicine 03/02/20 06/19/21 documented as of this encounter
--- OUTSIDE RECORDS SUMMARY | 2023-10-06 01:33 | XMS_ITS | Encounter Summary ---
Author Organization [facility] Address [facility] [place] [address] Care Team Providers Care Bead Machine Operator Name Role Phone Garth Marroquin DO Primary Care Provider [phone] Encounter Details Date Type Department Care Team (Late st Contact Info) Description 11/28/2020 Ancillary Procedure [place] [address] Mary Alice Nesbitt MD [facility] [place] [address] Social History Tobacco Use Types Packs/Day Years [...] DX Chest (11/28/2020 12:00 AM EDT) Narrative [facility] - 12/21/2020 4:12 PM EDT This exam is auto-finalizing. It's purpose is for storage only. Mary Alice Nesbitt MD IMG FILM LIBRARY ORD ERABLES [place], [place] documented in this encounter Visit Diagnoses Not on filedocumented in this encounter Care Teams Bead Machine Operator Relationship Specialty Start Date End Date Garth Marroquin DO [address] [place] [address] PCP - General Family Medicine 03/02/20 06/19/21 documented as of this encounter
--- OUTSIDE RECORDS SUMMARY | 2023-10-06 01:33 | XMS_ITS | Encounter Summary ---
Author Organization [facility] [place] [address] Care Team Providers Care Elementary Summer School Teacher Name Role Phone Judd Pizarro MD Primary Care Provider Encounter Details Date Type Department Care Team (Late st Contact Info) Description 05/10/2022 1:05 PM EDT Ancillary [place] [address] Nic Samaniego MD [facility] [address] [place] [address] Social History Tobacco Use Types Packs/Day Years Used Date Smoking Tobacco: Every Day Cigarettes 1.5 38 Smokeless Tobacco: Never Alcohol Use Standard Drinks/Week Comments No 0 (1 standard drink = 0.6 oz pure alcohol) Formerly heavy - stopped a few years ago. [facility] Inpatient Questions Answer Date Recorded Does Anyone [...] IMG FILM LIBRARY ORDERABLES Performing Organization Address City/State/[facility] Co de Phone Number [place], [place] documented in this encounter Visit Diagnoses Not on filedocumented in this encounter Care Teams Elementary Summer [employer] Teacher Relationship Specialty Start Date End Date Judd Pizarro MD [address] [place] [address] PCP - General Family Medicine 06/20/21 documented as of this encounter
--- OUTSIDE RECORDS SUMMARY | 2023-10-06 01:33 | XMS_ITS | Encounter Summary ---
Author Organization [facility] Address [facility] [place] [address] Care Team Providers Care Security Assistant Name Role Phone Garth Marroquin DO Primary Care Provider [phone] Reason for Visit * Reason Comments Follow-up weight managment Encounter Details Date Type Department Care Team (Late st Contact Info) Description 10/26/2020 12:00 PM EDT Office Visit Weight and Wellness at [address] [address] Tessie Robles MD [facility] [address] [address] Class 2 obesity due to excess calories [...] a general recommendation for all patients. Your test development engineer and provider will help make more [...] increasing mindfulness throughout the day. Your health livestock judging coach is well-equipped to guide you to find something to look forward to everyday. Eating behaviors: many people benefit from restricting the hours in which they eat. You can choose an eating window of 8-12 hours to start. Make a pact with yourself that you will not take in anything with caloric content outside this window. Your test development engineer may make further recommendations documented in this encounter Progress Notes * Tessie Robles MD - 10/26/2020 12:00 PM EDTSummary: Visit #2 [facility] Patient [...] Osteoarthritis. This is a 1 month folllow-up [facility] visit for this 55 y.o. patient. Weight gain due to: less activity, weight gaining medications, increased intake and frequent snacking on PF Barriers: adentulous Initial visit: 09/27/20 Initial weight: 231# Initial BMI: 38.17 kg/m??. Goal weight: 165 10% loss: 210# Other goals: Improve diabetes Today's weight: 231 Change since prior: 0 [facility] Team: Tessie Robles MD, Justyna Horan RD and Aguilar Lagunas, Health Adhesive Primer - all pending HPI Moving - busy [...] in the AM - 2-3 pots adds German Vanilla Creamer - starts 4AM Nothing to eat until 12noon Noon: [place] on white, lettuce, tomato, meat, cheese, mustard; lightly salted potato chips, iced tea -sweetened and lemon/store bought Snack: potato chips [id number]: TopRamen if Naty is not home (four [...] interim records including notes and labs. Pathway: [facility] PATHWAY - ADULT 09/27/2020 Obesity Medicine [...] skips meals []? Night eating ? Movement: [facility]: PAVS 09/27/2020 How many days during [...] 141 09/27/2020 Lab Results Component Value Date [id number] 09/27/2020 25-OH Vit D Total (ng/mL) [...] behavioral interventions, see goals Referrals: Dietitian, Health Adhesive Primer, AOM: Continue semaglutide for DM and weight [...] 15. 12 min chart review 30 min [id number] Visit time 5 min Documentation time I [...] counseling documented in this encounter Care Teams Security Assistant Relationship Specialty Start Date End Date Garth Marroquin DO [address] [place] [address] PCP - General Family Medicine 03/02/20 06/19/21 documented as of this encounter
--- OUTSIDE RECORDS SUMMARY | 2023-10-06 01:33 | XMS_ITS | Encounter Summary ---
Author Organization [facility] Address [facility] [place] [address] Care Team Providers Care Postdoctoral Scientist Name Role Phone Garth Marroquin DO Primary Care Provider [phone] Encounter Details Date Type Department Care Team (Latest Contact Info) Description 05/06/2021 2:00 PM EDT TH Visit (TeleHealth) Weight and Wellness at [address] [address] Nolvia Saleh, RD [facility] [place] [address] Adult BMI 34.0-34.9 kg/sq m; Adult BMI [...] past visits. Please reach out with a [employer] message if you have any questions or [...] Nutrition Change to whole wheat toast or Nicaraguan Muffin at breakfast. Instead of 4 eggs , have 2 eggs and peanut butter on the Nicaraguan muffin. When looking for a whole grain [...] was at home at the following address: [address] [place] [address] [address] [facility] [address] Weight Today: 213 lb from home scale [...] hunger. Typical Dietary Intake: B: 2-3 eggs, Nicaraguan muffin L: dinner leftovers (not sure if [...] Nutrition Change to whole wheat toast or Nicaraguan Muffin at breakfast. Instead of 4 eggs , have 2 eggs and peanut butter on the Nicaraguan muffin. Consider changing to HalfNHalf or cream [...] track Change to whole wheat toast or Nicaraguan Muffin at breakfast. Instead of 4 eggs , have 2 eggs and peanut butter on the Nicaraguan muffin. When looking for a whole grain [...] initial visit Thank you Nolvia Saleh RD [facility] 60 minutes were spent in visit today, [...] adult documented in this encounter Care Teams Postdoctoral Scientist Relationship Specialty Start Date End Date Garth Marroquin DO [address] [place] [address] PCP - General Family Medicine 03/02/20 06/19/21 documented as of this encounter
--- OUTSIDE RECORDS SUMMARY | 2023-10-06 01:33 | XMS_ITS | Encounter Summary ---
Author Organization [facility] [address] Care Team Providers Care Taproom Attendant Name Role Phone Garth Marroquin DO Primary Care Provider [phone] Encounter Details Date Type Department Care Team (Late st Contact Info) Description 09/27/2020 Notes Only Weight and Wellness at [address] [phone] Elidia Mallory Social History Tobacco Use Types [...] Date: 09/27/20 PI/Designee: Dr. Leonidas Scott/Elidia Mallory [facility] [id number]: [facility] Biorepository VELOS: [id number] Pavanthuy Padilla consented via electronic consent to [...] on filedocumented in this encounter Care Teams Taproom Attendant Relationship Specialty Start Date End Date Garth Marroquin DO [address] [place] [address] PCP - General Family Medicine 03/02/20 06/19/21 documented as of this encounter
--- OUTSIDE RECORDS SUMMARY | 2023-10-06 01:34 | XMS_ITS | Encounter Summary ---
Author Organization [facility] Address [facility] [place] [address] Care Team Providers Care Safety Aide Name Role Phone Garth Berg MD Primary Care Provider [phone] Encounter Details Date Type Department Care Team (Latest Contact Info) Description 01/09/2018 - 01/09/2018 11:59 PM EST Hospital Encounter [place] [address] BackerAmando MD [facility] [place] [address] Discharge Disposition: Home Social History Tobacco Use [...] auto-finalizing. Amando SOLIS FILM LIBRARY ORD ERABLES [place], [place] documented in this encounter Visit Diagnoses Not on filedocumented in this encounter Care Teams Safety Aide Relationship Specialty Start Date End Date Garth Berg MD [address] [place] [address] PCP - General General Internal Medicine 03/02/17 documented as of this encounter
--- OUTSIDE RECORDS SUMMARY | 2023-10-06 01:34 | XMS_ITS | Encounter Summary ---
[place] [address] Care Team Providers Care Helpdesk Analyst Name Role Phone Garth Berg MD Primary Care Provider [phone] Encounter Details Date Type Department Care Team (Late st Contact Info) Description 03/20/2017 External [place] [phone] Social History Tobacco Use Types Packs/Day Years [...] on filedocumented in this encounter Care Teams Helpdesk Analyst Relationship Specialty Start Date End Date Garth Berg MD [address] [place] [address] PCP - General General Internal Medicine 03/02/17 documented as of this encounter
--- OUTSIDE RECORDS SUMMARY | 2023-10-06 01:34 | XMS_ITS | Encounter Summary ---
Author [facility] [place] [address] Care Team Providers Care Complaint Evaluation Supervisor Name Role Phone None Primary Care Provider Unavailabl e Reason for Visit * Diagnostic Test (Routine) - Closed Specialty Diagnoses / Procedures Referred By Edis grossman Referred To Contact Radiology Diagnoses Pulmonary nodule Procedures PET CT Standard Skull Base to Mid-Thigh Amando Robins MD [facility] [place] [address] [place] [address] Referral ID Status Reason Start Date Expiration Date V isits Requested Visits Authorized [id number] Closed Specialty Service Requested 01/15/2018 01/15/2019 1 1 Encounter Details Date Type Department Care Team (Latest Contact Info) Description 01/22/2018 6:21 AM EST - 01/22/2018 11:59 PM [facility] Hospital Encounter [place] [address] Amando Robins MD [facility] [place] [address] Discharge Disposition: Home Social History [...] mCi documented in this encounter Care Teams Complaint Evaluation Supervisor Relationship Specialty Start Date End Date None None PCP - General 01/22/18 03/01/20 documented as of this encounter
--- OUTSIDE RECORDS SUMMARY | 2023-10-06 01:34 | XMS_ITS | Encounter Summary ---
[place] [address] Care Team Providers Care Certified Credit Counselor Name Role Phone Unknown Primary Care Provider Unavailabl e Reason for Referral * Diagnostic Test (Routine) - Closed Specialty Diagnoses / Procedures Referred By Contac t Referred To Contact Radiology Diagnoses Pulmonary nodule Procedures PET CT Standard Skull Base to Mid-Thigh Amando Robins MD [facility] [place] [address] [place] [address] Referral ID Status Reason Start Date Expiration Date V isits Requested Visits Authorized [id number] Closed Specialty Service Requested 01/15/2018 01/15/2019 1 1 Reason for Visit * Reason Comments Referral * Consultation (Routine) - Closed Specialty Diagnoses / Procedures Referred By Contac t Referred To Contact Pulmonology Diagnoses PULMONARY NODULE Garth Marroquin, DO [address] [place] [address] [facility] [address] [place] [id number] Referral ID Status Reason Start Date Expiration Date V isits Requested Visits Authorized [id number] Closed Consult, [facility] 12/21/2017 12/21/2018 1 1 Encounter Details Date Type Department Care Team (Late st Contact Info) Description 01/15/2018 8:00 AM EST Office [place] [address] Amando Robins MD [facility] DR PULMONARY [place] [address] Pulmonary nodule Social History Tobacco Use Types [...] NAME: Pavan Padilla : 1965 MEDICAL RECORD: [id number] DATE OF SERVICE: 01/14/2018 REFERRING PHYSICIAN: Garth Marroquin DO PRIMARY CARE PHYSICIAN: Garth Berg MD (Inactive) Reason for Consultation: PULMONARY NODULE Chief Complaint: I'm here about the spot on my lung UPDATED phone number: [phone] History of Present Illness: Mr. Pavan Padilla [...] he was actually evaluated by Pulmonology in [place] a few months ago. He was evaluated by Dr. Troy Ray ([facility]) on 11/02/17 in their nodule clinic. It was at this appointment that the 10/2017 CT chest was obtained. He did not follow up with 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 [...] pulmonary nodule(s). It is reported by the [facility] radiologist to measure 2 CM across in total from the 10/2017 CT chest as compared to the initial 0.8 CM solid vs part-solid lesion seen on a 2015CT abdomen (1.0 CM x 0.9 CM on my measurements). The 2014 report from [facility] also mentions similar findings dating back [...] after PET/CT ?? All missing imaging from [facility] have been requested ?? Smoking cessation discussed in depth; continue nicotine replacement therapies ?? Remainder of plan as noted above ?? Note to be sent to Garth Berg MD (Inactive) ?? Follow-up with me for potential bronchoscopy with EBUS following the PET/CT Closest Hospital: [facility]; [place] is [place] minutes from [facility] Amando Robins MD, 01/15/2018, 8:30 AM Pulmonary & Critical Care Pager: [phone] documented in this encounter Plan of Treatment [...] node staging TECHNIQUE: Following IV injection of 95-vjdbum-6-deoxyglucose (FDG) a standard uptake of approximately 60 [...] lymph nodestaging TECHNIQUE: Following IV injection of 50-kjirxz-8-deoxyglucose (FDG) astandard uptake of approximately 60 minutes, [...] nodule documented in this encounter Care Teams Certified Credit Counselor Relationship Specialty Start Date End Date Unknown None PCP - General 01/15/18 01/21/18 documented as of this encounter
--- OUTSIDE RECORDS SUMMARY | 2023-10-06 01:34 | XMS_ITS | Encounter Summary ---
Author Organization [facility] [place] [address] Care Team Providers Care Chief Dog License Inspector Name Role Phone None Primary Care Provider Unavailabl e Encounter Details Date Type Department Care Team (Late st Contact Info) Description 09/06/2019 [place] [phone] Corinne Frausto Social History Tobacco Use Types [...] filedocumented in this encounter Care Teams Chief Dog License Inspector Relationship Specialty Start Date End Date None None PCP - General 01/22/18 03/01/20 documented as of this encounter
--- OUTSIDE RECORDS SUMMARY | 2023-10-06 01:34 | XMS_ITS | Encounter Summary ---
Author Organization [facility] Address [facility] [place] [address] Care Team Providers Care Hog Grader Name Role Phone Unknown Primary Care Provider Unavailabl e Encounter Details Date Type Department Care Team (Latest Contact Info) Description 01/15/2018 8:28 AM EST - 01/15/2018 11:59 PM EST Hospital Encounter Pulmonology at [facility] [place] [address] Pulmonary nodule Discharge Disposition: Home Social History [...] Garcia MD - 01/15/2018 11:59 PM EST Ecotr Garcia MD ? 01/20/2018 11:03 AM A. [...] nodule documented in this encounter Care Teams Hog Grader Relationship Specialty Start Date End Date Unknown None PCP - General 01/15/18 01/21/18 documented as of this encounter
--- OUTSIDE RECORDS SUMMARY | 2023-10-06 01:34 | XMS_ITS | Encounter Summary ---
Author Organization Formerly [facility] Address [facility] [place] [address] Care Team Providers Care Java Spring Developer Name Role Phone Garth Berg MD Primary Care Provider [phone] Encounter Details Date Type Department Care Team (Latest Contact Info) Description 12/16/2017 - 12/16/2017 11:59 PM EDT Hospital Encounter [place] [address] MorriserAmando MD [facility] DR [place]UL[place] [address] Discharge Disposition: Home Social History Tobacco Use [...] SOLIS FILM LIBRARY ORD ERABLES [address] documented in this encounter Visit Diagnoses Not on filedocumented in this encounter Care Teams Java Spring Developer Relationship Specialty Start Date End Date Garth Berg MD [address] [place] [address] PCP - General General Internal Medicine 03/02/17 documented as of this encounter
--- OUTSIDE RECORDS SUMMARY | 2023-10-06 01:34 | XMS_ITS | Encounter Summary ---
Author Organization [facility] [place] [address] Care Team Providers Care Perch Mender Name Role Phone Judd Scott MD Primary Care Provider [phone] Encounter Details Date Type Department Care Team (Latest Contact Info) Description 05/29/2014 - 05/29/2014 11:59 PM EDT Hospital Encounter [place] [address] Amando Robins MD [facility] [place] [address] Discharge Disposition: Home Social History Tobacco Use [...] & Pelvis (05/29/2014 12:00 AM EDT) Narrative [facility] - 01/14/2018 11:46 AM EST This exam is for storage only and is auto-finalizing. Amando Robins MD G FILM LIBRARY ORD ERABLES Performing Organization Address City/State/[facility] Co de Phone Number [facility] [place], [place] documented in this encounter Visit Diagnoses Not on filedocumented in this encounter Care Teams Perch Mender Relationship Specialty Start Date End Date Judd Scott MD PCP - General 01/08/10 03/01/17 documented as of this encounter
--- OUTSIDE RECORDS SUMMARY | 2023-10-06 01:34 | XMS_ITS | Encounter Summary ---
Author Organization Formerly [facility] Address [facility] [place] [address] Care Team Providers Care Director Government Name Role Phone Judd Scott MD Primary Care Provider [phone] Encounter Details Date Type Department Care Team (Latest Contact Info) Description 02/23/2017 - 02/23/2017 11:59 PM EST Hospital Encounter [place] [address] Jose Olivares MD [facility] [place] [address] Discharge Disposition: Home Social History Tobacco Use [...] nuclear medicine (02/23/2017 12:00 AM EST) Narrative [facility] - 03/20/2017 12:47 PM EST This exam is for storage only and is auto-finalizing. Jose Olivares MD IMG FILM LIBRARY ORD ERABLES [place], [place] documented in this encounter Visit Diagnoses Not on filedocumented in this encounter Care Teams Director Government Relationship Specialty Start Date End Date Judd Scott MD PCP - General 01/08/10 03/01/17 documented as of this encounter
--- OUTSIDE RECORDS SUMMARY | 2023-10-06 01:34 | XMS_ITS | Encounter Summary ---
Author Organization [facility] [place] [address] Care Team Providers Care Animal Doctor Name Role Phone None Primary Care Provider Unavailabl e Reason for Referral * Diagnostic Test (Routine) - Specialty Diagnoses / Procedures Referred By Edis grossman Referred To Contact Radiology Diagnoses Pulmonary nodule Procedures CT Chest Screening Lung Cancer Ector Garcia MD [facility] [place] [address] [facility] [place] [address] Referral ID Status Reason Start Date Expiration Date Visits Requested Visits Authorized [id number] Specialty Service Requested 11/22/2018 11/22/2019 1 1 Reason for Visit * Reason Comments Follow-up Encounter Details Date Type Department Care Team ([facility] st Contact Info) Description 11/22/2018 10:00 AM EDT Office Visit [place] [address] Ector Garcia MD [facility] [place] [address] Pulmonary nodule Social History Tobacco Use [...] Garcia MD - 11/22/2018 10:00 AM EDT [facility] Section of Pulmonary Medicine Outpatient [...] number below. Electronically signed by: Salud Beltran [facility] ([phone]), at 11/22/2018 9:47 AM Assessment: 53 yo [...] MD Pulmonary and Critical Care Medicine Pager #[phone] documented in this encounter Plan of Treatment [...] signed by: Salud Beltran MD, [facility] ([phone]), at 12/26/2019 6:44 PM Narrative 12/26/2019 6:44 PM EST EXAMINATION: CT CHEST SCREENING LUNG CANCER CLINICAL HISTORY: Lung Cancer Screening Asymptomatic but at high risk for lung cancer TECHNIQUE: Noncontrast, low-dose chest CT (LDCT) per [facility] lung cancer screening protocol. COMPARISON: 11/22/2018 noncontrast [...] TECHNIQUE: Noncontrast, low-dose chest CT (LDCT) per [facility] lung cancerscreening protocol. COMPARISON: 11/22/2018 noncontrast chest [...] nodule documented in this encounter Care Teams Animal Doctor Relationship Specialty Start Date End Date None None PCP - General 01/22/18 03/01/20 documented as of this encounter
--- OUTSIDE RECORDS SUMMARY | 2023-10-06 01:34 | XMS_ITS | Encounter Summary ---
Author Organization [facility] [place] [address] Care Team Providers Care Bulk Sugar Handler Name Role Phone Judd Scott MD Primary Care Provider [phone] Encounter Details Date Type Department Care Team (Latest Contact Info) Description 11/22/2014 - 11/22/2014 11:59 PM EDT Hospital Encounter [place] [address] Amando Robins MD [facility] [place] [address] Discharge Disposition: Home Social History Tobacco Use [...] DX Chest (11/22/2014 12:00 AM EDT) Narrative [facility] - 01/14/2018 11:47 AM EST This exam is for storage only and is auto-finalizing. Amando Robins MD [facility] FILM LIBRARY ORD ERABLES [place], [place] documented in this encounter Visit Diagnoses Not on filedocumented in this encounter Care Teams Bulk Sugar Handler Relationship Specialty Start Date End Date Judd Scott MD PCP - General 01/08/10 03/01/17 documented as of this encounter
--- OUTSIDE RECORDS SUMMARY | 2023-10-06 01:34 | XMS_ITS | Encounter Summary ---
Author Organization [facility] [place] [address] Care Team Providers Care Director Case Name Role Phone Unknown Primary Care Provider Unavailabl e Encounter Details Date Type Department Care Team (Late st Contact Info) Description 01/15/2018 Telephone [place] [address] Gisela Escamilla Social History Tobacco Use Types [...] filedocumented in this encounter Care Teams Director Case Relationship Specialty Start Date End Date Unknown None PCP - General 01/15/18 01/21/18 documented as of this encounter
--- OUTSIDE RECORDS SUMMARY | 2023-10-06 01:34 | XMS_ITS | Encounter Summary ---
[place] [address] Care Team Providers Care Explosives Mixer Operator Name Role Phone Garth Berg MD Primary Care Provider [phone] Encounter Details Date Type Department Care Team (Latest Contact Info) Description 11/06/2017 - 11/06/2017 11:59 PM EDT Hospital Encounter [place] [address] Garth Marroquin, DO [address] [place], [place] [id number] Discharge Disposition: Home Social History Tobacco Use [...] CT Chest (11/06/2017 12:00 AM EDT) Narrative [facility] - 12/21/2017 10:06 AM EST This exam is for storage only and is auto-finalizing. Garth Marroquin DO [place] FILM LIBRARY ORD ERABLES [place], [place] documented in this encounter Visit Diagnoses Not on filedocumented in this encounter Care Teams Explosives Mixer Operator Relationship Specialty Start Date End Date Garth Berg MD [address] [place] [address] PCP - General General Internal Medicine 03/02/17 documented as of this encounter
--- OUTSIDE RECORDS SUMMARY | 2023-10-06 01:34 | XMS_ITS | Encounter Summary ---
[place] [address] Care Team Providers Care Bow Maker Name Role Phone Garth Berg MD Primary Care Provider [phone] Encounter Details Date Type Department Care Team (Late st Contact Info) Description 01/14/2018 [place] [address] Judd Johnston II Social History Tobacco Use [...] on filedocumented in this encounter Care Teams Bow Maker Relationship Specialty Start Date End Date Garth Berg MD [address] [place], [place] [id number] PCP - General General Internal Medicine 03/02/17 documented as of this encounter
--- OUTSIDE RECORDS SUMMARY | 2023-10-06 01:34 | XMS_ITS | Encounter Summary ---
Author Organization [facility] Address [facility] [place] [address] Care Team Providers Care Materials Inspector Name Role Phone Judd Scott MD Primary Care Provider [phone] Encounter Details Date Type Department Care Team (Latest Contact Info) Description 02/05/2017 - 02/05/2017 11:59 PM EST Hospital Encounter [place] [address] Jose Olivares MD [facility] [address] Discharge Disposition: Home Social History Tobacco Use [...] DX Chest (02/05/2017 12:00 AM EST) Narrative [facility] - 03/20/2017 12:49 PM EST This exam is for storage only and is auto-finalizing. Jose Olivares MD IMG FILM LIBRARY ORD ERABLES [place], [place] documented in this encounter Visit Diagnoses Not on filedocumented in this encounter Care Teams Materials Inspector Relationship Specialty Start Date End Date Judd Scott MD PCP - General 01/08/10 03/01/17 documented as of this encounter
--- OUTSIDE RECORDS SUMMARY | 2023-10-06 01:34 | XMS_ITS | Encounter Summary ---
Author Organization [facility] Address [facility] [place] [address] Care Team Providers Care Wraparound Facilitator Name Role Phone Garth Berg MD Primary Care Provider [phone] Encounter Details Date Type Department Care Team (Latest Contact Info) Description 03/19/2017 - 03/19/2017 11:59 PM EST Hospital Encounter [place] [address] Jose Olivares MD [facility] [place] [address] Discharge Disposition: Home Social History Tobacco Use [...] DX Chest (03/19/2017 12:00 AM EST) Narrative [facility] - 03/20/2017 12:46 PM EST This exam is for storage only and is auto-finalizing. Jose Olivares MD IMG FILM LIBRARY ORD ERABLES [place], [place] documented in this encounter Visit Diagnoses Not on filedocumented in this encounter Care Teams Wraparound Facilitator Relationship Specialty Start Date End Date Garth Berg MD [address] [place] [address] PCP - General General Internal Medicine 03/02/17 documented as of this encounter
--- OUTSIDE RECORDS SUMMARY | 2023-10-06 01:34 | XMS_ITS | Encounter Summary ---
Author Organization [facility] [place] [address] Care Team Providers Care Software Architect Name Role Phone None Primary Care Provider Unavailabl e Reason for Referral * Diagnostic Test (Routine) - Closed Specialty Diagnoses / Procedures Referred By Edis grossman Referred To Contact Radiology Diagnoses Pulmonary nodule Procedures CT Chest wo Contrast (Generic) Amando Robins MD [facility] [place] [address] [facility] [place] [address] Referral ID Status Reason Start Date Expiration Date V isits Requested Visits Authorized [id number] Closed Specialty Service Requested 01/22/2018 01/22/2019 1 1 Encounter Details Date Type Department Care Team ([facility] st Contact Info) Description 01/22/2018 [place] [address] Amando Robins MD [facility] [place] [address] Social History Tobacco Use Types [...] 11:22 AM Pulmonary & Critical Care Pager: [phone] documented in this encounter Plan of Treatment [...] below. ? Electronically signed by: Salud Beltran [facility] ([phone]), at 11/22/2018 9:47 AM Narrative 11/22/2018 9:47 AM EDT EXAMINATION: CT [...] number below. Electronically signed by: Salud Beltran [facility]([phone]), at 11/22/2018 9:47 AM Amando Robins MD IMG CT ORDERABLES documented in this encounter Visit Diagnoses Diagnosis Pulmonary nodule Solitary pulmonary nodule Pulmonary nodule Solitary pulmonary nodule documented in this encounter Care Teams Software Architect Relationship Specialty Start Date End Date None None PCP - General 01/22/18 03/01/20 documented as of this encounter
--- OUTSIDE RECORDS SUMMARY | 2023-10-06 01:34 | XMS_ITS | Encounter Summary ---
Author Organization [facility] [place] [address] Care Team Providers Care Residential Leasing Manager Name Role Phone None Primary Care Provider Unavailabl e Encounter Details Date Type Department Care Team (Late st Contact Info) Description 08/31/2019 Tele[place] [address] Corinne Frausto Social History Tobacco Use Types [...] on filedocumented in this encounter Care Teams Residential Leasing Manager Relationship Specialty Start Date End Date None None PCP - General 01/22/18 03/01/20 documented as of this encounter
--- OUTSIDE RECORDS SUMMARY | 2023-10-06 01:34 | XMS_ITS | Encounter Summary ---
Author Organization [facility] [place] [address] Care Team Providers Care Interventional Radiology Technologist Name Role Phone None Primary Care Provider Unavailabl e Encounter Details Date Type Department Care Team (Late st Contact Info) Description 09/02/2019 Telephone [place] [address] Corinne Frausto Social History Tobacco Use Types [...] on filedocumented in this encounter Care Teams Interventional Radiology Technologist Relationship Specialty Start Date End Date None None PCP - General 01/22/18 03/01/20 documented as of this encounter
--- OUTSIDE RECORDS SUMMARY | 2023-10-06 01:34 | XMS_ITS | Encounter Summary ---
Author Organization [facility] [place] [address] Care Team Providers Care Milk Deliverer Name Role Phone Judd Scott MD Primary Care Provider [phone] Encounter Details Date Type Department Care Team (Late st Contact Info) Description 03/17/2014 Orders [place] [address] Yuri Lao MD [facility] [place] [address] Bilateral foot pain (Primary Dx) Social History [...] limb documented in this encounter Care Teams Milk Deliverer Relationship Specialty Start Date End Date Judd Scott MD PCP - General 01/08/10 03/01/17 documented as of this encounter
--- OUTSIDE RECORDS SUMMARY | 2023-10-06 01:34 | XMS_ITS | Encounter Summary ---
Author Organization [facility] Address [facility] [place] [address] Care Team Providers Care Physicist Light And Optics Name Role Phone Garth Berg MD Primary Care Provider [phone] Encounter Details Date Type Department Care Team (Latest Contact Info) Description 01/14/2018 11:48 AM EST - 01/14/2018 11:59 PM [facility] Hospital Encounter [place] [address] Backer, Amando Renteria MD [facility] [place] [address] Discharge Disposition: Home Social History Tobacco Use [...] DX Chest (01/14/2018 11:48 AM EST) Narrative [facility] - 01/14/2018 11:48 AM EST This exam is for storage only and is auto-finalizing. Amando [facility] FILM LIBRARY ORD ERABLES DH [place], [place] documented in this encounter Visit Diagnoses Not on filedocumented in this encounter Care Teams Physicist Light And Optics Relationship Specialty Start Date End Date Garth Berg MD [address] [place] [address] PCP - General General Internal Medicine 03/02/17 documented as of this encounter
--- OUTSIDE RECORDS SUMMARY | 2023-10-06 01:34 | XMS_ITS | Encounter Summary ---
[place] [address] Care Team Providers Care Healthcare Social Worker Name Role Phone None Primary Care Provider Unavailabl e Reason for Referral * Diagnostic Test (Routine) - Closed Specialty Diagnoses / Procedures Referred By Contac t Referred To Contact Radiology Diagnoses Pulmonary nodule Procedures CT Chest wo Contrast (Generic) Amando Robins MD [facility] [place] [address] [facility] [place] [address] Referral ID Status Reason Start Date Expiration Date V isits Requested Visits Authorized [id number] Closed Specialty Service Requested 01/22/2018 01/22/2019 1 1 Reason for Visit * Diagnostic Test (Routine) - Closed Specialty Diagnoses / Procedures Referred By Contac t Referred To Contact Radiology Diagnoses Pulmonary nodule Procedures CT Chest wo Contrast (Generic) Amando Robins MD [facility] [place] [address] [facility] [place] [address] Referral ID Status Reason Start Date Expiration Date V isits Requested Visits Authorized [id number] Closed Specialty Service Requested 01/22/2018 01/22/2019 1 1 Encounter Details Date Type Department Care Team (Latest Contact Info) Description 11/22/2018 7:44 AM EDT - 11/22/2018 11:59 PM EDT Hospital Encounter CT Scan at [facility] [place] [address] Amando Robins MD [facility] [place] [address] Pulmonary nodule Discharge Disposition: Home Social History [...] nodule documented in this encounter Care Teams Healthcare Social Worker Relationship Specialty Start Date End Date None None PCP - General 01/22/18 03/01/20 documented as of this encounter
--- OUTSIDE RECORDS SUMMARY | 2023-10-06 01:34 | XMS_ITS | Encounter Summary ---
[place] [address] Care Team Providers Care Tool Worker Name Role Phone Garth Berg MD Primary Care Provider [phone] Encounter Details Date Type Department Care Team (Late st Contact Info) Description 01/05/2018 Telephone [place] [address] Gisela Escamilla Social History Tobacco Use Types [...] on filedocumented in this encounter Care Teams Tool Worker Relationship Specialty Start Date End Date Garth Berg MD [address] [place] [address] PCP - General General Internal Medicine 03/02/17 documented as of this encounter
--- OUTSIDE RECORDS SUMMARY | 2023-10-06 01:34 | XMS_ITS | Encounter Summary ---
Author Organization [facility] [place] [address] Care Team Providers Care Inspector Assembly Name Role Phone Garth Berg MD Primary Care Provider [phone] Reason for Visit * Auth/Cert Specialty Diagnoses / Procedures Referred By Contac t Referred To Contact Diagnoses Unstable angina [place] ?CAD Procedures CARDIAC CATHETERIZATION Referral ID Status Reason Start Date Expiration Date Visits Re quested Visits Authorized [id number] 1 1 Encounter Details Date Type Department Care Team (Late st Contact Info) Description 03/20/2017 4:00 PM EST - 03/20/2017 5:00 PM EST [place] [id number] Fantasma Rubalcava MD [facility] [address] CARDIAC CATHETERIZATION Social History Tobacco Use Types [...] Mannie Padilla Patient Age: 51 y.o. Language: Belarusian Race: Ethnicity: Admit date: 03/20/2017 Discharge date [...] physician through the [facility] Button Decorating Machine Operator . Issues afterhours and on weekends will be handled by the packing machine feeder on-call. Discharge Diagnoses (Hospital Problems) and Secondary [...] (>100 pack years) presenting in transfer from [facility] with unstable angina. He presented to [...] weeks. ?? Emergency contact: Gayatri Suarez - [phone] (Mother) ?? OSH labs prior to transfer: [...] up with your primary care provider and timing adjuster for further instructions on your medication regimen. Primary care follow up: To be determined Follow-Up Appointments Future Appointments Date Time Provider Department Center 04/16/2017 12:00 PM Laverne Coon MD [facility] Date and Time Provider and Specialty Location Your Inpatient Doctor(s) at [facility]: Dr. Jose West General Instructions None Future Appointments and Orders Future Appointments Provider Department Dept Phone 04/16/2017 12:00 PM Laverne Coon MD [facility] [place] [phone] Discharge References/Attachments None documented in this encounter [...] up with your primary care provider and timing adjuster for further instructions on your medication regimen. Primary care follow up: To be determined Follow-Up Appointments Future Appointments Date Time Provider Department Center 04/16/2017 12:00 PM Laverne Coon MD [facility] Date and Time Provider and Specialty [...] removed and telemetry disconnected. Patient brought to [facility] via wheelchair. * Jose Olivares MD [...] (>100 pack years) presenting in transfer from [facility] with unstable angina. Active Problems: Active [...] (>100 pack years) presenting in transfer from [facility] with unstable angina. Plan: Cardiac catheterization [...] He will follow-up with his PCP and timing adjuster as an outpatient. Jim West MD, PGY-1 Cardiology S1 (pgr. [id number]) CARDIOLOGY STAFF NOTE Mannie Padilla is a [...] this and is ambulatory. Jose Olivares MD, [facility] Staff Banquet Pilot pager [phone] * Savita Aquilino X - 03/21/2017 12:02 [...] obtained. Family at bedside. Patient brought to laborer stores. Patient returned from laborer stores. TR band in place. Fluids infusing as [...] in the chart. Plan/ Coronary Angio per classifying machine operator preference No c/i to long-term DAPT Moderate sedation MAGUI Mijares MD documented in this encounter H&P Notes * Jose Olivares MD - 03/20/2017 1:39 PM EST Cardiology Admission History and Physical Patient Name: Mannie Padilla Service: Cardiology S1 Team Responsible Attending: Jose Olivares MD PCP: Garth Berg MD PCP phone #: [phone] ID/Chief Complaint: 51 y.o. man with history [...] (>100 pack years) presenting in transfer from [facility] with unstable angina. He presented to [...] recent weeks. Emergency contact: Gayatri Suarez - [phone] (Mother) OSH labs prior to transfer: CBC: [...] Only Family History: Mother: HTN, CVA MGF: [place] 57 MGGF: [place] 80 Father: of brain cancer at 67 [...] in the last 7068 hours. Invalid input(s): [id number] Heme: No results for input(s): LDH, HAPTOGLOBIN, [...] (>100 pack years) presenting in transfer from [facility] with unstable angina. He is currently without chest pain and has successfully been weaned off nitroglycerine drip. Given presentation, risk factorsand recent positive stress test, we will proceed with cardiac catheterization. Details of plan as follows. PLAN: Admit to Cardiology, S1 Team Pager # [phone] # ACS - unstable angina - Medications [...] therapies. Jose Olivares MD, FACC, FASE Staff Banquet Pilot pager [phone] documented in this encounter Miscellaneous Notes * [...] Procedure Name Priority Date/Time Associated Diagnosis Comments SUPPLY PLANNER SCAN 03/22/2017 12:00 AM EST POCT GLUCOSE [...] Routine 03/20/2017 4:44 PM EST Atherosclerosis of [place] coronary artery of [place] heart with unstable angina pectoris EKG 12-LEAD STAT 03/20/2017 3:05 PM EST Atherosclerosis of [place] coronary artery of [place] heart with unstable angina pectoris HEMOGRAM Routine [...] in this encounter Results * SCAN DOC: SUPPLY PLANNER (03/22/2017 12:00 AM EST) Anatomical Region Laterality Modality Other Narrative 03/22/2017 12:00 AM EST Ordered by an unspecified provider. Scanning Provider MEDIA MGR SCAN EXT O RDR/RSLT * POCT Glucose (03/21/2017 11:58 AM EST) Glucose, POC 104 65 - 199 mg/dL [facility] Comment: Supplemental ranges: <140 mg/dL before meals <180 mg/dL all other times of the day Blood specimen (specimen) 03/21/2017 11:58 AM EST 03/21/2017 11:58 AM EST Jose Olivares MD POINT OF CARE TEST O DEANN Performing Organization Address City/[facility]/ZIP Co de Phone Number [facility] [place] [address] * POCT Glucose (03/21/2017 7:39 AM EST) Glucose, POC 127 65 - 199 mg/dL [facility] Comment: Supplemental ranges: <140 mg/dL before meals <180 mg/dL all other times of the day Blood specimen (specimen) 03/21/2017 7:39 AM EST 03/21/2017 7:39 AM EST Jose Olivares MD POINT OF CARE TEST O RDERABLES [facility] [place] [address] * Magnesium (03/21/2017 5:07 AM EST) Magnesium 0.89 0.69 - 1.07 mmol/L [facility] Blood specimen (specimen) Venous Draw / Unknown 03/21/2017 5:07 AM EST 03/21/2017 5:30 AM EST Narrative Resulting Agency Comment Spec In Lab Jim West MD CHEMISTRY SALO SALGADO [facility] [place] [address] * (ABNORMAL) Basic Metabolic Panel (non-fasting) (03/21/2017 5:07 AM EST) Glucose 121 65 - 199 mg/dL [facility] Comment:Diabetes: >=200 mg/d L plus symptoms Blood Urea Nitrogen 19 10 - 20 mg/dL [facility] Creatinine 1.31 0.80 - 1.50 mg/dL [facility] Sodium 139 135 - 145 mmol/L [facility] Potassium 4.0 3.5 - 5.0 mmol/L [facility] Comment: Please note: ??Patients with WBC >100,000 may have falsely elevated Potassium levels. ??For accurate Potassium quantification in these patients send serum separator tube (gold top) for subsequent determinations. ??Contact the Clinical Chemistry Laboratory if there are any questions. Chloride 103 98 - 107 mmol/L [facility] Carbon Dioxide 25 22 - 31 mmol/L [facility] Anion Gap 11 5 - 15 mmol/L [facility] Calcium 9.2 8.5 - 10.5 mg/dL [facility] Est Glomerular Filtration Rate 57(L) >=60 [facility] Comment: The reported eGFR should be multiplied by 1.2 for patients. The MDRD is not an appropriate measure of renal function for patients with body mass extremes or in patients with acute kidney failure. http://[employer]/DHnkdep http://[employer]/DHMCnkf Blood specimen (specimen) 03/21/2017 5:07 AM EST 03/21/2017 5:29 AM EST Narrative Resulting Agency Comment Spec In Lab Jose Olivares MD CHEMISTRY ORDERABLES Performing Organization Address City/[facility]/ZIP Co de Phone Number [facility] [place] [address] * (ABNORMAL) Differential, Automated (03/21/2017 5:07 AM EST) Neutrophil % 57.4 % [facility] Neutrophil Absolute 4.37 1.70 - 6.10 x10(3)/mc L [facility] Lymph % 23.6 % [facility] Lymphocytes Abs 1.8 0.9 - 3.2 x10(3)/mc L [facility] Monocyte % 13.2 % [facility] Monocyte Abs 1.0(H) 0.3 - 0.9 x10(3)/mc L [facility] Eos % 3.2 % [facility] Eosinophils Abs 0.2 0.0 - 0.4 x10(3)/ L [facility] Basophil % 1.2 % [facility] Baso Absolute 0.1 0.0 - 0.1 x10(3)/mc L [facility] Immature Gran % 1.40 % [facility] Comment: Immature granulocytes(IG's)percentage and absolute count will include metamyelocytes, myelocytes, and promyelocytes. Blood smears from CBCs yielding IG's will be scanned manually for concordance. If this scan disagrees with the automated IG or if promyelocytes are noted, a manual differential will be performed. Immature Gran Absolute 0.11(H) 0.00 - 0.04 x10(3)/mc L [facility] Blood specimen (specimen) 03/21/2017 5:07 AM EST 03/21/2017 5:28 AM EST Narrative Resulting Agency Comment Spec In Lab Noelle Hearn MD HEMATOLOGY ORDERABLE S Performing Organization Address City/[facility]/ZIP Co de Phone Number [facility] [place] [address] * Hemogram (03/21/2017 5:07 AM EST) White Blood Cell 7.6 4.0 - 9.5 x10(3)/[facility] Red Blood Cell 4.83 4.58 - 5.54 x10(6)/[facility] Hemoglobin 14.6 13.7 - 16.5 gm/dL [facility] Hematocrit 43.1 40.5 - 48.5 % [facility] Mean Cell Volume 89.2 82.9 - 93.1 fL [facility] Mean Cell Hemoglobin 30.2 27.5 - 32.1 pg [facility] Mean Cell Hemoglobin Concentration 33.9 32.0 - 35.7 gm/dL [facility] Platelet 200 145 - 357 x10(3)/[facility] LAB[facility]ATORY RDW Standard Deviation 42.4 36.0 - 45.0 [facility] RDW coefficient of variation 12.9 11.4 - 13.8 % [facility] Mean Platelet Volume 10.5 7.6 - 12.9 [facility] NRBC% auto 0.0 % [facility] NRBC Absolute 0.000 0.000 - 0.000 x10(3)/[facility] Blood specimen (specimen) 03/21/2017 5:07 AM EST 03/21/2017 5:28 AM EST Narrative Resulting Agency Comment Spec In Lab Noelle Hearn MD HEMATOLOGY ORDERABLE S [facility] [place] [address] * (ABNORMAL) Hemoglobin A1c (03/21/2017 5:07 AM EST) Hemoglobin A1c 6.0(H) 4.3 - 5.6 % [facility] Comment: Reference Range: 4.3 - [...] Mellitus, Diabetes Care 2013; 36: Suppl. 1, O87-69 Estimated Average Glucose 126 mg/dL [facility] Comment: eAG equivalents for HbA1c [...] into estimated average glucose values. ??Diabetes Care 2008:31(8):5981-5250. Blood specimen (specimen) 03/21/2017 5:07 AM EST 03/21/2017 5:29 AM EST Narrative Resulting Agency Comment Spec In Lab Jose Olivares MD CHEMISTRY ORDERABLES [facility] [place] [address] * (ABNORMAL) Lipid Panel (03/21/2017 5:07 AM EST) Cholesterol, Total 129 <=239 mg/dL [facility] Triglyceride 330(H) <=199 mg/dL [facility] HDL Cholesterol 22(L) >=40 mg/dL [facility] LDL Cholesterol 41 <=190 mg/dL [facility] Cholesterol/HDL Ratio 5.9 ratio [facility] Lipid Interpretation See Note [facility] Comment: Lipid management should be guided by a patient? s ASCVD risk, goals and preferences. ACC/AHA Guidelines recommend high intensity statin if clinical ASCVD or LDL greater than or equal to 190 mg/dL. http://Luqit.com/MFR-LCK-Xjmjzgqxm Adults aged 40-75 with LDL 70-189 mg/dL should have their 10 year ASCVD risk estimated with the ACC/AHA ASCVD risk millwork estimator http://tools.acc.org/FUOPQ-Odbb-Wqkgtxjzi/ Statin should be discussed if risk greater [...] In Lab Jose Olivares MD CHEMISTRY ORDERABLES [facility] [place] [address] * POCT Glucose (03/20/2017 8:06 PM EST) Glucose, POC 125 65 - 199 mg/dL [facility] Comment: Supplemental ranges: <140 mg/dL before meals <180 mg/dL all other times of the day Blood specimen (specimen) 03/20/2017 8:06 PM EST 03/20/2017 8:06 PM EST Jose Olivares MD POINT OF CARE TEST O RDERABLES [facility] [place] [address] * CARDIAC CATHETERIZATION (03/20/2017 5:15 PM EST) Anatomical Region Laterality Modality Other Narrative 03/20/2017 5:30 PM EST ?[facility] ? Cardiac Catheterization/Intervention Report ? Patient Name: , Mannie D. ? Procedure Date: 03/20/2017 ? A #: [id number] ? Primary Physician: Fantasma Rubalcava ? Case #: [id number] ? File Name: [id number] ? Catheterization Order Number: [id number] ? [facility] ? Final Report [place], [place] ? Patient Name: ? Mannie D. Merchant ? ID#: ?[id number] ? : ?1965 ? Procedure Date: ? [...] presented with: unstable angina (w/i 60 days). [place] ?Cardiovascular Society angina class was III. This [...] Procedure Note Fantasma Rubalcava MD - 03/27/2017 [facility] Cardiac Catheterization/Intervention Report Patient Name: Mannie Padilla Procedure Date: 03/20/2017 A #: [id number] Primary Physician: Fantasma Rubalcava Case #: [id number] File Name: [id number] Catheterization Order Number: [id number] [facility] FinalReport [place], [place] Patient Name: Mannie Padilla ID#:[id number] :1965 Procedure Date: March 20, 2017 Case [...] presented with: unstable angina (w/i 60 days). [place] Cardiovascular Society angina class was III. This [...] CONTRAST (03/20/2017 4:44 PM EST) EF 65 HEARTCapture [employer] SYSTEM Anatomical Region Laterality Modality Other 03/20/2017 Narrative 03/20/2017 4:57 PM EST Procedure: ?Transthoracic Echocardiogram Patient: ?MERCHANT MANNIE Renteria ?? (Age): 1965(51y) Med Rec#: ? [id number] ?Sex: ?M ? Site Loc: ? [facility] ?Ht / Wt: ??170(cm)/106(kg) Pt. Loc: ?Adult Floor ? BSA: ?2.16 Study Date: ?? 03/20/2017 ?Pt. Type: Inpatient Tape: ? Referring: MARION Reading: Micheal Kent ([id number]) Soil Specialist: Joselito Linares Diagnosis: *ICD-10-PCS Atherosclerotic heart disease of [place] coronary artery with unstable angina pectoris (I25.110) [...] E-wave Vmax ?0.8 ?m/sec ? MV deceleration meyw562.1 ?msec ? MV A-wave Vmax ?1 ?m/sec [...] ? Mid-Inferior ?Normal ? Mid-Inferoseptal ?Normal ? [place]-Septal ? Normal ? [place]-Anterior ? Normal ? [place]-Lateral ?Normal ? [place]-Inferior ? Normal ? [place]-Tip ?Normal ? This report has been electronically signed by: Micheal Kent MD ? 03/20/2017 16:56:45 Images reviewed and interpretation verified [facility] Cardiac Ultrasound Laboratory Procedure Note Micheal Kent MD - 03/20/2017 Procedure: Transthoracic Echocardiogram Patient: MERCHANT JENSENORE D (Age): 1965(51y) Med Rec#: [id number] Sex: M Site Loc: [facility] Ht / Wt: 170(cm)/106(kg) Pt. Loc: Adult Floor BSA: 2.16 Study Date: 03/20/2017 Pt. Type: Inpatient Tape: Referring: MARION Reading: Micheal Kent ([id number]) Soil Specialist: Joselito Linares Diagnosis: *ICD-10-PCS Atherosclerotic heart disease of [place] coronary artery with unstable angina pectoris (I25.110) [...] MV E-wave Vmax 0.8 m/sec MV deceleration [id number] msec MV A-wave Vmax 1 m/sec MV [...] Normal Mid-Posterolateral Normal Mid-Inferior Normal Mid-Inferoseptal Normal [place]-Septal Normal [place]-Anterior Normal [place]-Lateral Normal [place]-Inferior Normal [place]-Tip Normal This report has been electronically signed by: Micheal Kent MD 03/20/2017 16:56:45 Images reviewed and interpretation verified [facility] Cardiac Ultrasound Laboratory Jose Olivares MD ECHO ORDERABLES * EKG 12 Lead (03/20/2017 3:05 PM EST) Ventricular rate 62 BPM MUSE SYSTEM Atrial Rate 62 BPM MUSE SYSTEM P-R Interval 146 ms MUSE SYSTEM QRS Duration 84 ms MUSE SYSTEM Q-T Interval 420 ms MUSE SYSTEM QTC Calculated (Bezet) 426 ms MUSE SYSTEM Calculated P [place] 14 degrees MUSE SYSTEM Calculated R [place] 25 degrees MUSE SYSTEM Calculated T [place] 27 degrees MUSE SYSTEM INTERPRETATION Normal sinus rhythm Normal ECG No previous ECGs available Confirmed by Jose Olivares MD ([id number]) on 03/20/2017 5:30:25 PM MUSE SYSTEM 03/20/2017 3:05 PM EST 03/20/2017 5:30 PM EST Jose Olivares MD ECG ORDERABLES MUSE SYSTEM * (ABNORMAL) Differential, Automated (03/20/2017 2:54 PM EST) Neutrophil % 62.3 % [facility] Neutrophil Absolute 6.48(H) 1.70 - 6.10 x10(3)/mc L [facility] Lymph % 21.8 % [facility] Lymphocytes Abs 2.3 0.9 - 3.2 x10(3)/mc L [facility] Monocyte % 10.8 % [facility] Monocyte Abs 1.1(H) 0.3 - 0.9 x10(3)/ L [facility] Eos % 2.6 % [facility] Eosinophils Abs 0.3 0.0 - 0.4 x10(3)/[facility] Basophil % 1.1 % [facility] Baso Absolute 0.1 0.0 - 0.1 x10(3)/[facility]ATORY Immature Gran % 1.40 % [facility] Comment: Immature granulocytes(IG's)percentage and absolute count will include metamyelocytes, myelocytes, and promyelocytes. Blood smears from CBCs yielding IG's will be scanned manually for concordance. If this scan disagrees with the automated IG or if promyelocytes are noted, a manual differential will be performed. Immature Gran Absolute 0.15(H) 0.00 - 0.04 x10(3)/[facility]ORY Blood specimen (specimen) 03/20/2017 2:54 PM EST 03/20/2017 3:00 PM EST Narrative Resulting Agency Comment Spec In Lab Noelle Hearn MD HEMATOLOGY ORDERABLE S [facility] [place] [address] * (ABNORMAL) Hemogram (03/20/2017 2:54 PM EST) White Blood Cell 10.4(H) 4.0 - 9.5 x10(3)/[facility] Red Blood Cell 4.79 4.58 - 5.54 x10(6)/[facility] Hemoglobin 14.5 13.7 - 16.5 gm/dL [facility] Hematocrit 41.9 40.5 - 48.5 % [facility] Mean Cell Volume 87.5 82.9 - 93.1 fL [facility] Mean Cell Hemoglobin 30.3 27.5 - 32.1 pg [facility] Mean Cell Hemoglobin Concentration 34.6 32.0 - 35.7 gm/dL [facility] Platelet 188 145 - 357 x10(3)/mc L [facility] RDW Standard Deviation 40.9 36.0 - 45.0 fL [facility] RDW coefficient of variation 12.9 11.4 - 13.8 % [facility] Mean Platelet Volume 10.5 7.6 - 12.9 fL [facility] NRBC% auto 0.0 % [facility] NRBC Absolute 0.000 0.000 - 0.000 x10(3)/mc L [facility] Blood specimen (specimen) 03/20/2017 2:54 PM EST 03/20/2017 3:00 PM EST Narrative Resulting Agency Comment Spec In Lab Noelle Hearn MD HEMATOLOGY ORDERABLE S [facility] [place] [address] * Cardiac Enzymes (LEB/CGP) (03/20/2017 2:54 PM EST) Troponin-T <0.01 0.00 - 0.00 ng/mL [facility] Comment: The 99th percentile for Troponin T is less than 0.01 ng/mL, any detectable cTnT concentration using this assay should be considered elevated. According to the third universal definition of myocardial infarction the following criteria with a clinical presentation consistent with acute myocardial ischemia meets the diagnosis for a myocardial infarction ([place]). Detection of a rise and/or fall of cTnT, with at least one value greater than the 99th percentile (> or = 0.01) and with at least one of the following ?? Symptoms of ischemia ?? New or presumed new significant PZ-hykgcvu-D wave (ST-T) changes or new left bundle [...] additional sample may be indicated. Reference: Third [place] Definition of Myocardial Infarction. Journal of the [place] College [employer]iology 2012;60:1581-98 Creatine Kinase 116 0 - 200 unit/L [facility] Blood specimen (specimen) 03/20/2017 2:54 PM EST 03/20/2017 3:00 PM EST Narrative Resulting Agency Comment Spec In Lab Jose Olivares MD CHEMISTRY ORDERABLES Performing Organization Address [facility] Phone Number [facility] [place] [address] * Prothrombin Time (03/20/2017 2:54 PM EST) Prothrombin Time 13.1 11.8 - 14.0 sec [facility] International Normalization Ratio 1.0 0.9 - 1.1 [facility] Comment: An INR <2.0 indicates [...] MD HEMATOLOGY ORDERABLE S Performing Organization Address [facility] Co de Phone Number [facility] [place] [address] * Hepatic Function Panel (03/20/2017 2:54 PM EST) Protein, Total 6.9 6.1 - 8.0 gm/dL [facility] Albumin 4.2 3.2 - 5.2 gm/dL [facility] Aspartate Aminotransferase 17 0 - 39 unit/L [facility] Alanine Aminotransferase 27 0 - 55 unit/L [facility] Alkaline Phosphatase 68 40 - 120 unit/L [facility] Bilirubin, Total 0.4 0.2 - 1.3 mg/dL [facility] Bilirubin, Direct 0.1 0.0 - 0.3 mg/dL [facility] Blood specimen (specimen) 03/20/2017 2:54 PM EST 03/20/2017 3:00 PM EST Narrative Resulting Agency Comment Spec In Lab Jose Olivares MD CHEMISTRY ORDERABLES Performing Organization Address City/[facility]/ZIP Co de Phone Number [facility] [place] [address] * pro-Brain Natriuretic Peptide (03/20/2017 2:54 PM EST) NT-proBNP 14 <=125 pg/mL [facility] Blood specimen (specimen) 03/20/2017 2:54 PM EST 03/20/2017 3:00 PM EST Narrative Resulting Agency Comment Spec In Lab Jose Olivares MD CHEMISTRY ORDERABLES Performing Organization Address City/[facility]/ZIP Co de Phone Number [facility] [place] [address] * TSH (03/20/2017 2:54 PM EST) Thyroid Stimulating Hormone 0.62 0.27 - 4.20 mlU/ML [facility] Blood specimen (specimen) 03/20/2017 2:54 PM EST 03/20/2017 3:00 PM EST Narrative Resulting Agency Comment Spec In Lab Jose Olivares MD CHEMISTRY ORDERABLES Performing Organization Address City/[facility] Co de Phone Number [facility] [place] [address] * Phosphorus (03/20/2017 2:54 PM EST) Phosphorus 3.3 2.5 - 4.5 mg/dL [facility] Blood specimen (specimen) 03/20/2017 2:54 PM EST 03/20/2017 3:00 PM EST Narrative Resulting Agency Comment Spec In Lab Jose Olivares MD CHEMISTRY ORDERABLES Performing Organization Address [facility] Co de Phone Number [facility] [place] [address] * Magnesium (03/20/2017 2:54 PM EST) Magnesium 0.85 0.69 - 1.07 mmol/L [facility] Blood specimen (specimen) 03/20/2017 2:54 PM EST 03/20/2017 3:00 PM EST Narrative Resulting Agency Comment Spec In Lab Jose Olivares MD CHEMISTRY ORDERABLES Performing Organization Address [facility] Co de Phone Number [facility] [place] [address] * Basic Metabolic Panel (non-fasting) (03/20/2017 2:54 PM EST) Glucose 90 65 - 199 mg/dL [facility] Comment:Diabetes: >=200 mg/d L plus symptoms Blood Urea Nitrogen 19 10 - 20 mg/dL [facility] Creatinine 1.22 0.80 - 1.50 mg/dL [facility] Sodium 140 135 - 145 mmol/L [facility] Potassium 3.8 3.5 - 5.0 mmol/L [facility] Comment: Please note: ??Patients with WBC >100,000 may have falsely elevated Potassium levels. ??For accurate Potassium quantification in these patients send serum separator tube (gold top) for subsequent determinations. ??Contact the Clinical Chemistry Laboratory if there are any questions. Chloride 103 98 - 107 mmol/L [facility] Carbon Dioxide 22 22 - 31 mmol/L [facility] Anion Gap 15 5 - 15 mmol/L [facility] Calcium 9.1 8.5 - 10.5 mg/dL [facility] Est Glomerular Filtration Rate >60 >=60 [facility] Comment: The reported eGFR should be multiplied by 1.2 for patients. The MDRD is not an appropriate measure of renal function for patients with body mass extremes or in patients with acute kidney failure. [email or web address] [email or web address] Blood specimen (specimen) 03/20/2017 2:54 PM EST 03/20/2017 3:00 PM EST Narrative Resulting Agency Comment Spec In Lab Jose Olivares MD CHEMISTRY ORDERABLES Performing Organization Address [facility] Co de Phone Number [facility] [place] [address] * (ABNORMAL) APTT (03/20/2017 2:54 PM EST) [facility] Partial Thromboplastin Time 43(H) 25 - 35 sec [facility] Comment: The recommended therapeutic range [...] MD HEMATOLOGY ORDERABLE S Performing Organization Address [facility] Co de Phone Number [facility] [place] [address] * SCAN DOC: CARDIAC CATH (03/20/2017 12:00 [...] Reason: Transfer to a Procedural area)1736 ([facility] Unhold - Provider: Admin Adt) [...] 03/21/17 at 0900, Until Discontinued 1616 ([facility] Hold - Provider: Admin Adt - Reason: Transfer to a Procedural area)1736 ([facility] Unhold - Provider: Admin Adt) 0857 (Given - Provider: Effie Young, CHATO) PARoxetine (PAXIL) tablet 20 mg 20 mg, Oral, NIGHTLY, First dose on Thu03/21/17 at 2100, Until Discontinued, Routine 1616 ([facility] Hold - Provider: Admin Adt - Reason: Transfer to a Procedural area)1736 ([facility] Unhold - Provider: Admin Adt) sodium chloride 0.9 % flush 5 mL 5 mL, Intravenous, 2 TIMES DAILY, First dose on Thu03/20/17 at 2100, Until Discontinued, Routine 1616 ([facility] Hold - Provider: Admin Adt - Reason: Transfer to a Procedural area)1736 ([facility] Unhold - Provider: Admin Adt)2100 [...] Reason: Transfer to a Procedural area)1715 ([facility] Unhold - Provider: Admin Adt) [...] Reason: Transfer to a Procedural area)1736 ([facility] Unhold - Provider: Admin Adt) [...] duration of the active insulin., Routine 1616 ([facility] Hold - Provider: Admin Adt - Reason: Transfer to a Procedural area)1736 ([facility] Unhold - Provider: Admin Adt) docusate sodium (COLACE) capsule 100 mg 100 mg, Oral, DAILY PRN, Starting on Thu03/20/17 at 1443, Until 03/21/17 at 1528, Constipation, Routine 161 ([facility] Hold - Provider: Admin Adt - Reason: Transfer to a Procedural area)173 ([facility] Unhold - Provider: Admin Adt) [...] duration of the active insulin., Routine 1616 ([facility] Hold - Provider: Admin Adt - Reason: Transfer to a Procedural area)1736 ([facility] Unhold - Provider: Admin Adt) [...] for discomfort with PIV insertion, Routine 1616 ([facility] Hold - Provider: Admin Adt [...] provided on this medication record., Routine 1616 ([facility] Hold - Provider: Admin Adt - Reason: Transfer to a Procedural area)1736 ([facility] Unhold - Provider: Admin Adt) [...] Routine documented in this encounter Care Teams Inspector Assembly Relationship Specialty Start Date End Date Garth Berg MD [address] [place] [address] PCP - General General Internal Medicine 03/02/17 documented as of this encounter
--- OUTSIDE RECORDS SUMMARY | 2023-10-06 01:34 | XMS_ITS | Encounter Summary ---
Author Organization [place] [id number] Care Team Providers Care Button And Buckle Maker Name Role Phone None Primary Care Provider Unavailabl e Reason for Referral * Diagnostic Test (Routine) - Closed Specialty Diagnoses / Procedures Referred By Contac t Referred To Contact Radiology Diagnoses Pulmonary nodule Procedures PET CT Standard Skull Base to Mid-Thigh Amando Robins MD [facility] [place] [address] [place] [address] Referral ID Status Reason Start Date Expiration Date V isits Requested Visits Authorized [id number] Closed Specialty Service Requested 01/15/2018 01/15/2019 1 1 Reason for Visit * Diagnostic Test (Routine) - Closed Specialty Diagnoses / Procedures Referred By Contac t Referred To Contact Radiology Diagnoses Pulmonary nodule Procedures PET CT Standard Skull Base to Mid-Thigh Amando Robins MD [facility] [place] [address] [place] [address] Referral ID Status Reason Start Date Expiration Date V isits Requested Visits Authorized [id number] Closed Specialty Service Requested 01/15/2018 01/15/2019 1 1 Encounter Details Date Type Department Care Team (Latest Contact Info) Description 01/22/2018 6:21 AM EST - 01/22/2018 11:59 PM [facility] Hospital Encounter Nuclear Medicine at [facility] [place] [address] Amando Robins MD [facility] [place] [address] Pulmonary nodule Discharge Disposition: Home Social History [...] node staging TECHNIQUE: Following IV injection of 68-zpciyh-8-deoxyglucose (FDG) a standard uptake of approximately 60 [...] lymph nodestaging TECHNIQUE: Following IV injection of 56-ptljue-3-deoxyglucose (FDG) astandard uptake of approximately 60 minutes, [...] Glucose, POC 136 65 - 199 mg/dL [facility] Comment: Supplemental ranges: <140 mg/dL before meals <180 mg/dL all other times of the day Blood specimen (specimen) 01/22/2018 6:45 AM EST 01/22/2018 6:45 AM EST Amando Robins MD POINT OF CARE TEST O RDERABLES [facility] [place] [address] documented in this encounter Visit Diagnoses Diagnosis Pulmonary nodule Solitary pulmonary nodule documented in this encounter Care Teams Button And Buckle Maker Relationship Specialty Start Date End Date None None PCP - General 01/22/18 03/01/20 documented as of this encounter
--- OUTSIDE RECORDS SUMMARY | 2023-10-06 01:34 | XMS_ITS | Encounter Summary ---
Author Organization [facility] Address 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 [address] Unstable angina; Essential hypertension Social History [...] chest pain Primary provider: Garth Marroquin DO [address] [place] [phone] ?? Problem List: 1: Type 2 DM [...] Office Visit from 04/16/2017 in Cardiology at [place] Weight 108 kg (238 lb) Height 170.2 [...] with primary care provider Laverne Coon MD [facility] Interventional Cardiology Pager [phone] documented in this encounter Plan of Treatment [...] (Bezet) 449 ms MUSE SYSTEM Calculated P Baxter 25 degrees MUSE SYSTEM Calculated R Baxter 28 degrees MUSE SYSTEM Calculated T Baxter 24 degrees MUSE SYSTEM INTERPRETATION Normal sinus [...] hypertension documented in this encounter Care Teams Smoke And Flame Specialist Relationship Specialty Start Date End Date Garth Berg MD [address] [place] [address] PCP - General General Internal Medicine 03/02/17 documented as of this encounter
--- OUTSIDE RECORDS SUMMARY | 2023-10-06 01:34 | XMS_ITS | Encounter Summary ---
Author Organization [facility] Address [facility] [place] [address] Care Team Providers Care E M Assembler Name Role Phone Garth Berg MD Primary Care Provider [phone] Reason for Visit * Auth/Cert Specialty Diagnoses / Procedures Referred By Contac t Referred To Contact Diagnoses Unstable angina [place] ?CAD Procedures CARDIAC CATHETERIZATION Referral ID Status Reason Start Date Expiration Date Visits Re quested Visits Authorized [id number] 1 1 Encounter Details Date Type Department Care Team (Latest Contact Info) Description 03/20/2017 1:33 PM EST - 03/21/2017 1:28 PM EST Hospital Encounter [place] [address] Jose Olivares MD [facility] [place] [address] Atherosclerosis of [place] coronary artery of [place] heart with unstable angina pectoris Discharge Disposition: [...] Mannie Padilla Patient Age: 51 y.o. Language: Australian Race: Ethnicity: Admit date: 03/20/2017 Discharge date [...] please contact your inpatient physician through the [facility] Turning Sander Operator . Issues afterhours and on weekends will be handled by the tow car driver on-call. Discharge Diagnoses (Hospital Problems) and Secondary [...] (>100 pack years) presenting in transfer from [facility] with unstable angina. He presented [...] weeks. ?? Emergency contact: Gayatri Suarez - [phone] (Mother) ?? OSH labs prior to transfer: [...] up with your primary care provider and dulser for further instructions on your medication regimen. Primary care follow up: To be determined Follow-Up Appointments Future Appointments Date Time Provider Department Center 04/16/2017 12:00 PM Laverne Coon MD [facility] [place] [facility] Date and Time Provider and Specialty Location Your Inpatient Doctor(s) at [facility]: Dr. Jose West General Instructions None Future Appointments and Orders Future Appointments Provider Department Dept Phone 04/16/2017 12:00 PM Laverne Coon MD Cardiology at [place] [phone] Discharge References/Attachments None documented in this encounter [...] up with your primary care provider and dulser for further instructions on your medication regimen. Primary care follow up: To be determined Follow-Up Appointments Future Appointments Date Time Provider Department Center 04/16/2017 12:00 PM Laverne Coon MD [facility] CLIN Date and Time Provider and Specialty Location Your Inpatient Doctor(s) at [facility]: Dr. Jose West documented in this encounter [...] removed and telemetry disconnected. Patient brought to [facility] via wheelchair. * Jose Olivares MD - [...] (>100 pack years) presenting in transfer from [facility] with unstable angina. Active Problems: [...] (>100 pack years) presenting in transfer from [facility] with unstable angina. Plan: Cardiac [...] He will follow-up with his PCP and dulser as an outpatient. Jim West MD, PGY-1 Cardiology S1 (pgr. [id number]) CARDIOLOGY STAFF NOTE Mannie Padilla is a [...] this and is ambulatory. Jose Olivares MD, [facility], [facility] Staff Weld Technician pager [phone] * Aquilino Barney X - 03/21/2017 12:02 [...] obtained. Family at bedside. Patient brought to laboratory equipment cleaner. Patient returned from laboratory equipment cleaner. TR band in place. Fluids infusing as [...] in the chart. Plan/ Coronary Angio per contact acid plant operator helper preference No c/i to long-term DAPT Moderate sedation MAGUI Mijares MD documented in this encounter H&P Notes * Jose Olivares MD - 03/20/2017 1:39 PM EST Cardiology Admission History and Physical Patient Name: Mannie Padilla Service: Cardiology S1 Team Responsible Attending: Jose Olivares MD PCP: Garth Berg MD PCP phone #: [phone] ID/Chief Complaint: 51 y.o. man with history [...] (>100 pack years) presenting in transfer from [facility] with unstable angina. He presented [...] recent weeks. Emergency contact: Gayatri Suarez - [phone] (Mother) OSH labs prior to transfer: CBC: [...] Only Family History: Mother: HTN, CVA MGF: [place] 57 MGGF: [place] 80 Father: of brain cancer at 67 [...] in the last 7068 hours. Invalid input(s): KZYTLOAXHOR0O Heme: No results for input(s): LDH, HAPTOGLOBIN, [...] (>100 pack years) presenting in transfer from [facility] with unstable angina. He is currently without chest pain and has successfully been weaned off nitroglycerine drip. Given presentation, risk factorsand recent positive stress test, we will proceed with cardiac catheterization. Details of plan as follows. PLAN: Admit to Cardiology, S1 Team Pager # [phone] # ACS - unstable angina - Medications [...] of ACS medical therapies. 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 Scanning Provider MEDIA MGR SCAN EXT O RDR/RSLT * POCT Glucose (03/21/2017 11:58 AM EST) Glucose, POC 104 65 - 199 mg/dL [facility] Comment: Supplemental ranges: <140 mg/dL before meals <180 mg/dL all other times of the day Blood specimen (specimen) 03/21/2017 11:58 AM EST 03/21/2017 11:58 AM EST Jose Olivares MD POINT OF CARE TEST O DEANN Performing Organization Address [facility] Co de Phone Number [facility] [place] [address] * POCT Glucose (03/21/2017 7:39 AM EST) Glucose, POC 127 65 - 199 mg/dL [facility] Comment: Supplemental ranges: <140 mg/dL before meals <180 mg/dL all other times of the day Blood specimen (specimen) 03/21/2017 7:39 AM EST 03/21/2017 7:39 AM EST Jose Olivares MD POINT OF CARE TEST O DEANN Performing Organization Address City/[facility] Co de Phone Number [facility] [place] [address] * Magnesium (03/21/2017 5:07 AM EST) Magnesium 0.89 0.69 - 1.07 mmol/L [facility] Blood specimen (specimen) Venous Draw / Unknown 03/21/2017 5:07 AM EST 03/21/2017 5:30 AM EST Narrative Resulting Agency Comment Spec In Lab Jim West MD CHEMISTRY ORDERA BLES [facility] [place] [address] * (ABNORMAL) Basic Metabolic Panel (non-fasting) (03/21/2017 5:07 AM EST) Glucose 121 65 - 199 mg/dL [facility] Comment:Diabetes: >=200 mg/d L plus symptoms Blood Urea Nitrogen 19 10 - 20 mg/dL [facility] Creatinine 1.31 0.80 - 1.50 mg/dL [facility] Sodium 139 135 - 145 mmol/L [facility] Potassium 4.0 3.5 - 5.0 mmol/L [facility] Comment: Please note: ??Patients with WBC >100,000 may have falsely elevated Potassium levels. ??For accurate Potassium quantification in these patients send serum separator tube (gold top) for subsequent determinations. ??Contact the Clinical Chemistry Laboratory if there are any questions. Chloride 103 98 - 107 mmol/L [facility] Carbon Dioxide 25 22 - 31 mmol/L [facility] Anion Gap 11 5 - 15 mmol/L [facility] Calcium 9.2 8.5 - 10.5 mg/dL [facility] Est Glomerular Filtration Rate 57(L) >=60 [facility] Comment: The reported eGFR should be multiplied by 1.2 for patients. The MDRD is not an appropriate measure of renal function for patients with body mass extremes or in patients with acute kidney failure. http://DJZ.Borderfree/DHnkdep http://Better Walk/DHMCnkf Blood specimen (specimen) 03/21/2017 5:07 AM EST 03/21/2017 5:29 AM EST Narrative Resulting Agency Comment Spec In Lab Jose Olivares MD CHEMISTRY ORDERABLES Performing Organization Address City/[facility]/[place] [address] * (ABNORMAL) Differential, Automated (03/21/2017 5:07 AM EST) Neutrophil % 57.4 % [facility] Neutrophil Absolute 4.37 1.70 - 6.10 x10(3)/mc L [facility] Lymph % 23.6 % [facility] Lymphocytes Abs 1.8 0.9 - 3.2 x10(3)/ L [facility] Monocyte % 13.2 % [facility] Monocyte Abs 1.0(H) 0.3 - 0.9 x10(3)/mc L [facility] Eos % 3.2 % [facility] Eosinophils Abs 0.2 0.0 - 0.4 x10(3)/ L [facility] Basophil % 1.2 % [facility] Baso Absolute 0.1 0.0 - 0.1 x10(3)/mc L [facility] Immature Gran % 1.40 % [facility] Comment: Immature granulocytes(IG's)percentage and absolute count will include metamyelocytes, myelocytes, and promyelocytes. Blood smears from CBCs yielding IG's will be scanned manually for concordance. If this scan disagrees with the automated IG or if promyelocytes are noted, a manual differential will be performed. Immature Gran Absolute 0.11(H) 0.00 - 0.04 x10(3)/mc L [facility] Blood specimen (specimen) 03/21/2017 5:07 AM EST 03/21/2017 5:28 AM EST Narrative Resulting Agency Comment Spec In Lab Noelle Hearn MD HEMATOLOGY ORDERABLE S Performing Organization Address City/[facility]/ZIP Co de Phone Number [facility] [place] [address] * Hemogram (03/21/2017 5:07 AM EST) Pathologist [facility] White Blood Cell 7.6 4.0 - 9.5 x10(3)/[facility] Red Blood Cell 4.83 4.58 - 5.54 x10(6)/[facility] Hemoglobin 14.6 13.7 - 16.5 gm/dL [facility] Hematocrit 43.1 40.5 - 48.5 % [facility] Mean Cell Volume 89.2 82.9 - 93.1 fL [facility] Mean Cell Hemoglobin 30.2 27.5 - 32.1 pg [facility] Mean Cell Hemoglobin Concentration 33.9 32.0 - 35.7 gm/dL [facility] Platelet 200 145 - 357 x10(3)/[facility] RDW Standard Deviation 42.4 36.0 - 45.0 [facility] RDW coefficient of variation 12.9 11.4 - 13.8 % [facility] Mean Platelet Volume 10.5 7.6 - 12.9 fL [facility] NRBC% auto 0.0 % [facility] NRBC Absolute 0.000 0.000 - 0.000 x10(3)/[facility] Blood specimen (specimen) 03/21/2017 5:07 AM EST 03/21/2017 5:28 AM EST Narrative Resulting Agency Comment Spec In Lab Noelle Hearn MD HEMATOLOGY ORDERABLE S [facility] [place] [address] * (ABNORMAL) Hemoglobin A1c (03/21/2017 5:07 AM EST) Pathologist [facility] Hemoglobin A1c 6.0(H) 4.3 - 5.6 % [facility] [...] Mellitus, Diabetes Care 2013; 36: Suppl. 1, W97-25 Estimated Average Glucose 126 mg/dL [facility] Comment: eAG [...] into estimated average glucose values. ??Diabetes Care 2008:31(8):5023-9247. Blood specimen (specimen) 03/21/2017 5:07 AM EST 03/21/2017 5:29 AM EST Narrative Resulting Agency Comment Spec In Lab Jose Olivares MD CHEMISTRY ORDERABLES [facility] [place] [address] * (ABNORMAL) Lipid Panel (03/21/2017 5:07 AM EST) Cholesterol, Total 129 <=239 mg/dL [facility] Triglyceride 330(H) <=199 mg/dL [facility] HDL Cholesterol 22(L) >=40 mg/dL [facility] LDL Cholesterol 41 <=190 mg/dL [facility] Cholesterol/HDL Ratio 5.9 ratio [facility] Lipid Interpretation See Note [facility] Comment: Lipid management should be guided by a patient? s ASCVD risk, goals and preferences. ACC/AHA Guidelines recommend high intensity statin if clinical ASCVD or LDL greater than or equal to 190 mg/dL. http://DJZ.com/OHM-ETX-Jeainlbdt Adults aged 40-75 with LDL 70-189 mg/dL should have their 10 year ASCVD risk estimated with the ACC/AHA ASCVD risk estimator lumber http://tools.acc.org/NIWMU-Stpj-Wciibnmlz/ Statin should be discussed if risk greater [...] In Lab Jose Olivares MD CHEMISTRY ORDERABLES [facility] [place] [address] * POCT Glucose (03/20/2017 8:06 PM EST) Glucose, POC 125 65 - 199 mg/dL [facility] Comment: Supplemental ranges: <140 mg/dL before meals <180 mg/dL all other times of the day Blood specimen (specimen) 03/20/2017 8:06 PM EST 03/20/2017 8:06 PM EST Jose Olivares MD POINT OF CARE TEST O RDERABLES Performing Organization Address [facility]/State/ZIP Co de Phone Number [facility] [place] [address] * CARDIAC CATHETERIZATION (03/20/2017 5:15 PM EST) Anatomical Region Laterality Modality Other Narrative 03/20/2017 5:30 PM EST ?[facility] ? Cardiac Catheterization/Intervention Report ? Patient Name: , Mannie D. ? Procedure Date: 03/20/2017 ? A #: [id number] ? Primary Physician: Fantasma Rubalcava ? Case #: [id number] ? File Name: [id number] ? Catheterization Order Number: [id number] ? [facility] ? Final Report [place], [place] ? Patient Name: ? Mannie D. Dixiet ? ID#: ?[id number] ? : ?1965 ? Procedure Date: ? March 20, 2017 ? Case #: ? [id number] ? Room: ? 5 ? Case Physician: [...] presented with: unstable angina (w/i 60 days). [place] ?Cardiovascular Society angina class was III. This [...] Procedure Note Fantasma Rubalcava MD - 03/27/2017 [facility] Cardiac Catheterization/Intervention Report Patient Name: Mannie Padilla Procedure Date: 03/20/2017 A #: [id number] Primary Physician: Fantasma Rubalcava Case #: [id number] File Name: [id number] Catheterization Order Number: [id number] [facility] FinalReport [place], [place] Patient Name: Mannie Padilla ID#:[id number] :1965 Procedure Date: March 20, 2017 Case [...] presented with: unstable angina (w/i 60 days). [place] Cardiovascular Society angina class was III. This [...] CONTRAST (03/20/2017 4:44 PM EST) EF 65 HEART5[employer] Anatomical Region Laterality Modality Other 03/20/2017 Narrative 03/20/2017 4:57 PM EST Procedure: ?Transthoracic Echocardiogram Patient: ?MERCHANT CHAND D ?? (Age): 1965(51y) Med Rec#: ? [id number] ?Sex: ?M ? Site Loc: ? [facility] ?Ht / Wt: ??170(cm)/106(kg) Pt. Loc: ?Adult Floor ? BSA: ?2.16 Study Date: ?? 03/20/2017 ?Pt. Type: Inpatient Tape: ? Referring: MARION Reading: Micheal Kent ([id number]) School Cleaner: Joselito Linares Diagnosis: *ICD-10-PCS Atherosclerotic heart disease of [place] coronary artery with unstable angina pectoris (I25.110) [...] E-wave Vmax ?0.8 ?m/sec ? MV deceleration cjbp271.1 ?msec ? MV A-wave Vmax ?1 ?m/sec [...] ? Mid-Inferior ?Normal ? Mid-Inferoseptal ?Normal ? [place]-Septal ? Normal ? [place]-Anterior ? Normal ? [place]-Lateral ?Normal ? [place]-Inferior ? Normal ? [place]-Tip ?Normal ? This report has been electronically signed by: Micheal Kent MD ? 03/20/2017 16:56:45 Images reviewed and interpretation verified [facility] Cardiac Ultrasound Laboratory Procedure Note Micheal Kent MD - 03/20/2017 Procedure: Transthoracic Echocardiogram Patient: MERCHANT MANNIE Renteria DOB(Age): 1965(51y) Med Rec#: [id number] Sex: M Site Loc: [facility] Ht / Wt: 170(cm)/106(kg) Pt. Loc: Adult Floor BSA: 2.16 Study Date: 03/20/2017 Pt. Type: Inpatient Tape: Referring: MARION Reading: Micheal Kent ([id number]) School Cleaner: Joselito Linares Diagnosis: *ICD-10-PCS Atherosclerotic heart disease of [place] coronary artery with unstable angina pectoris (I25.110) [...] MV E-wave Vmax 0.8 m/sec MV deceleration qite260.1 msec MV A-wave Vmax 1 m/sec MV [...] Normal Mid-Posterolateral Normal Mid-Inferior Normal Mid-Inferoseptal Normal [place]-Septal Normal [place]-Anterior Normal [place]-Lateral Normal [place]-Inferior Normal [place]-Tip Normal This report has been electronically signed by: Micheal Kent MD 03/20/2017 16:56:45 Images reviewed and interpretation verified [facility] Cardiac Ultrasound Laboratory Jose Olivares MD ECHO ORDERABLES * EKG 12 Lead (03/20/2017 3:05 PM EST) Ventricular rate 62 BPM MUSE SYSTEM Atrial Rate 62 BPM MUSE SYSTEM P-R Interval 146 ms MUSE SYSTEM QRS Duration 84 ms MUSE SYSTEM Q-T Interval 420 ms MUSE SYSTEM QTC Calculated (Bezet) 426 ms MUSE SYSTEM Calculated P [place] 14 degrees MUSE SYSTEM Calculated R [place] 25 degrees MUSE SYSTEM Calculated T [place] 27 degrees MUSE SYSTEM INTERPRETATION Normal sinus rhythm Normal ECG No previous ECGs available Confirmed by Jose Olivares MD ([id number]) on 03/20/2017 5:30:25 PM MUSE SYSTEM 03/20/2017 3:05 PM EST 03/20/2017 5:30 PM EST Jose Olivares MD ECG ORDERABLES MUSE SYSTEM * (ABNORMAL) Differential, Automated (03/20/2017 2:54 PM EST) Neutrophil % 62.3 % [facility] Neutrophil Absolute 6.48(H) 1.70 - 6.10 x10(3)/mc L [facility] Lymph % 21.8 % [facility] Lymphocytes Abs 2.3 0.9 - 3.2 x10(3)/mc L [facility] Monocyte % 10.8 % [facility] Monocyte Abs 1.1(H) 0.3 - 0.9 x10(3)/ L [facility] Eos % 2.6 % [facility] Eosinophils Abs 0.3 0.0 - 0.4 x10(3)/[facility] Basophil % 1.1 % [facility] Baso Absolute 0.1 0.0 - 0.1 x10(3)/[facility] Immature Gran % 1.40 % [facility] Comment: Immature granulocytes(IG's)percentage and absolute count will include metamyelocytes, myelocytes, and promyelocytes. Blood smears from CBCs yielding IG's will be scanned manually for concordance. If this scan disagrees with the automated IG or if promyelocytes are noted, a manual differential will be performed. Immature Gran Absolute 0.15(H) 0.00 - 0.04 x10(3)/[facility] Blood specimen (specimen) 03/20/2017 2:54 PM EST 03/20/2017 3:00 PM EST Narrative Resulting Agency Comment Spec In Lab Noelle Hearn MD HEMATOLOGY ORDERABLE S [facility] [place] [address] * (ABNORMAL) Hemogram (03/20/2017 2:54 PM EST) White Blood Cell 10.4(H) 4.0 - 9.5 x10(3)/[facility] Red Blood Cell 4.79 4.58 - 5.54 x10(6)/[facility] Hemoglobin 14.5 13.7 - 16.5 gm/dL [facility] Hematocrit 41.9 40.5 - 48.5 % [facility] Mean Cell Volume 87.5 82.9 - 93.1 fL [facility] Mean Cell Hemoglobin 30.3 27.5 - 32.1 pg [facility] Mean Cell Hemoglobin Concentration 34.6 32.0 - 35.7 gm/dL [facility] Platelet 188 145 - 357 x10(3)/mc L [facility] RDW Standard Deviation 40.9 36.0 - 45.0 fL [facility] RDW coefficient of variation 12.9 11.4 - 13.8 % [facility] Mean Platelet Volume 10.5 7.6 - 12.9 fL [facility] NRBC% auto 0.0 % [facility] NRBC Absolute 0.000 0.000 - 0.000 x10(3)/mc L [facility] Blood specimen (specimen) 03/20/2017 2:54 PM EST 03/20/2017 3:00 PM EST Narrative Resulting Agency Comment Spec In Lab Noelle Hearn MD HEMATOLOGY ORDERABLE S [facility] [place] [id number] * Cardiac Enzymes (LEB/CGP) (03/20/2017 2:54 PM EST) Troponin-T <0.01 0.00 - 0.00 ng/mL [facility] Comment: The 99th percentile for Troponin T is less than 0.01 ng/mL, any detectable cTnT concentration using this assay should be considered elevated. According to the third universal definition of myocardial infarction the following criteria with a clinical presentation consistent with acute myocardial ischemia meets the diagnosis for a myocardial infarction (IN). Detection of a rise and/or fall of cTnT, with at least one value greater than the 99th percentile (> or = 0.01) and with at least one of the following ?? Symptoms of ischemia ?? New or presumed new significant EK-doqbqxy-A wave (ST-T) changes or new left bundle [...] additional sample may be indicated. Reference: Third [place] Definition of Myocardial Infarction. Journal of the [place] College of Cardiology 2012;60:1581-98 Creatine Kinase 116 0 - 200 unit/L [facility] Blood specimen (specimen) 03/20/2017 2:54 PM EST 03/20/2017 3:00 PM EST Narrative Resulting Agency Comment Spec In Lab Jose Olivares MD CHEMISTRY ORDERABLES Performing Organization Address [facility] de Phone Number [facility] [place] [address] * Prothrombin Time (03/20/2017 2:54 PM EST) Prothrombin Time 13.1 11.8 - 14.0 sec [facility] International Normalization Ratio 1.0 0.9 - 1.1 [facility] Comment: An INR <2.0 indicates [...] MD HEMATOLOGY ORDERABLE S Performing Organization Address [facility] Co de Phone Number [facility] [place] [address] * Hepatic Function Panel (03/20/2017 2:54 PM EST) Protein, Total 6.9 6.1 - 8.0 gm/dL [facility] Albumin 4.2 3.2 - 5.2 gm/dL [facility] Aspartate Aminotransferase 17 0 - 39 unit/L [facility] Alanine Aminotransferase 27 0 - 55 unit/L [facility] Alkaline Phosphatase 68 40 - 120 unit/L [facility] Bilirubin, Total 0.4 0.2 - 1.3 mg/dL [facility] Bilirubin, Direct 0.1 0.0 - 0.3 mg/dL [facility] Blood specimen (specimen) 03/20/2017 2:54 PM EST 03/20/2017 3:00 PM EST Narrative Resulting Agency Comment Spec In Lab Jose Olivares MD CHEMISTRY ORDERABLES Performing Organization Address [facility] Co de Phone Number [facility] [place] [address] * pro-Brain Natriuretic Peptide (03/20/2017 2:54 PM EST) NT-proBNP 14 <=125 pg/mL [facility] Blood specimen (specimen) 03/20/2017 2:54 PM EST 03/20/2017 3:00 PM EST Narrative Resulting Agency Comment Spec In Lab Jose Olivares MD CHEMISTRY ORDERABLES Performing Organization Address [facility] Co de Phone Number [facility] [place] [address] * TSH (03/20/2017 2:54 PM EST) Thyroid Stimulating Hormone 0.62 0.27 - 4.20 mlU/ML [facility] Blood specimen (specimen) 03/20/2017 2:54 PM EST 03/20/2017 3:00 PM EST Narrative Resulting Agency Comment Spec In Lab Jose Olivares MD CHEMISTRY ORDERABLES Performing Organization Address [facility] Co de Phone Number [facility] [place] [address] * Phosphorus (03/20/2017 2:54 PM EST) Phosphorus 3.3 2.5 - 4.5 mg/dL [facility] Blood specimen (specimen) 03/20/2017 2:54 PM EST 03/20/2017 3:00 PM EST Narrative Resulting Agency Comment Spec In Lab Jose Olivares MD CHEMISTRY ORDERABLES Performing Organization Address [facility] de Phone Number [facility] [place] [address] * Magnesium (03/20/2017 2:54 PM EST) Magnesium 0.85 0.69 - 1.07 mmol/L [facility] Blood specimen (specimen) 03/20/2017 2:54 PM EST 03/20/2017 3:00 PM EST Narrative Resulting Agency Comment Spec In Lab Jose Olivares MD CHEMISTRY ORDERABLES Performing Organization Address [facility] de Phone Number [facility] [place] [address] * Basic Metabolic Panel (non-fasting) (03/20/2017 2:54 PM EST) Glucose 90 65 - 199 mg/dL [facility] Comment:Diabetes: >=200 mg/d L plus symptoms Blood Urea Nitrogen 19 10 - 20 mg/dL [facility] Creatinine 1.22 0.80 - 1.50 mg/dL [facility] Sodium 140 135 - 145 mmol/L [facility] Potassium 3.8 3.5 - 5.0 mmol/L [facility] Comment: Please note: ??Patients with WBC >100,000 may have falsely elevated Potassium levels. ??For accurate Potassium quantification in these patients send serum separator tube (gold top) for subsequent determinations. ??Contact the Clinical Chemistry Laboratory if there are any questions. Chloride 103 98 - 107 mmol/L [facility] Carbon Dioxide 22 22 - 31 mmol/L [facility] Anion Gap 15 5 - 15 mmol/L [facility] Calcium 9.1 8.5 - 10.5 mg/dL [facility] Est Glomerular Filtration Rate >60 >=60 [facility] Comment: The reported eGFR should be multiplied by 1.2 for patients. The MDRD is not an appropriate measure of renal function for patients with body mass extremes or in patients with acute kidney failure. http://Better Walk/DHnkdep http://Better Walk/MCnkf Blood specimen (specimen) 03/20/2017 2:54 PM EST 03/20/2017 3:00 PM EST Narrative Resulting Agency Comment Spec In Lab Jose Olivares MD CHEMISTRY ORDERABLES Performing Organization Address [facility] de Phone Number [facility] [place] [address] * (ABNORMAL) APTT (03/20/2017 2:54 PM EST) [facility] Signature Partial Thromboplastin Time 43(H) 25 - 35 sec [facility] Comment: The recommended therapeutic range for full dose, unfractionated heparin at [facility] is 80 ? 114 seconds. The use of the anti-Xa (heparin) level rather than the PTT is recommended for monitoring anticoagulation intensity in critically ill patients receiving unfractionated heparin by continuous IV infusion. Blood specimen (specimen) 03/20/2017 2:54 PM EST 03/20/2017 3:00 PM EST Narrative Resulting Agency Comment Spec In Lab Jose Olivares MD HEMATOLOGY ORDERABLE S Performing Organization Address [facility] Co de Phone Number [facility] [place] [address] * SCAN DOC: CARDIAC CATH (03/20/2017 12:00 AM EST) Anatomical Region Laterality Modality Cardiac Other Narrative 03/20/2017 12:00 AM EST Ordered by an unspecified provider. 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 unstable angina pectoris Unstable angina [...] told to do so., Routine 1616 ([facility] Hold - Provider: Admin Adt - Reason: Transfer to a Procedural area)1630 (Automatically Held - Provider: Admin Adt)1736 ([facility] Unhold - Provider: Admin Adt) 0730 (Not [...] Reason: Transfer to a Procedural area)1736 ([facility] Unhold - Provider: Admin Adt) 0856 (Given - Provider: Effie Young RN) nicotine (NICODERM CQ) 21 mg/24 hr patch 21 mg(Linked Group 2) 21 mg, Transdermal, DAILY, First dose on Thu03/20/17 at 1500, Until Discontinued, Routine 1519 (Patch Applied - Provider: Effie Young RN)1616 ([facility] Hold - Provider: Admin Adt - Reason: Transfer to a Procedural area)1736 ([facility] Unhold - Provider: Admin Adt) 0857 (Patch Applied - Provider: Effie Young RN) nicotine (NICODERM CQ) 21 mg/24 hr patch Patch Removal(Linked Group 2) Transdermal, DAILY, First dose on 03/21/17 at 0900, Until Discontinued, Remove nicotine 21 mg/24 hr patch 1616 ([facility] Hold - Provider: Admin Adt - Reason: Transfer to a Procedural area)1736 ([facility] Unhold - Provider: Admin Adt) 0900 (Patch Removed - Provider: Effie Young RN) nicotine (NICODERM CQ) 21 mg/24 hr patch Patch Verification(Linked Group 2) Transdermal, 2 TIMES DAILY, First dose on 03/21/17 at 0900, Until Discontinued, Verify nicotine 21 mg/24 hr patch 1616 ([facility] Hold - Provider: Admin Adt - Reason: Transfer to a Procedural area)1736 ([facility] Unhold - Provider: Admin Adt) 0900 (Patch (dose and location) verified - Provider: Effie Young RN) pantoprazole (PROTONIX) tablet 40 mg 40 mg, Oral, DAILY, First dose on 03/21/17 at 0900, Until Discontinued 1616 ([facility] Hold - Provider: Admin Adt - Reason: Transfer to a Procedural area)1736 ([facility] Unhold - Provider: Admin Adt) 0857 (Given - Provider: Effie Young RN) PARoxetine (PAXIL) tablet 20 mg 20 mg, Oral, NIGHTLY, First dose on 03/21/17 at 2100, Until Discontinued, Routine 1616 ([facility] Hold - Provider: Admin Adt - Reason: Transfer to a Procedural area)1736 ([facility] Unhold - Provider: Admin Adt) sodium chloride 0.9 % flush 5 mL 5 mL, Intravenous, 2 TIMES DAILY, First dose on Thu03/20/17 at 2100, Until Discontinued, Routine 1616 ([facility] Hold - Provider: Admin Adt - Reason: Transfer to a Procedural area)1736 ([facility] Unhold - Provider: Admin Adt)2100 (Given - [...] Bag - Provider: Effie Young RN)1616 ([facility] Hold - Provider: Admin Adt - Reason: Transfer to a Procedural area)1715 ([facility] Unhold - Provider: Admin Adt) sodium chloride [...] sources in 24 hours., Routine 1616 ([facility] Hold - Provider: Admin Adt - Reason: Transfer to a Procedural area)173 ([facility] Unhold - Provider: Admin Adt) dextrose 50% [...] of the active insulin., Routine 161 ([facility] Hold - Provider: Admin Adt - Reason: Transfer to a Procedural area)1736 ([facility] Unhold - Provider: Admin Adt) docusate sodium (COLACE) capsule 100 mg 100 mg, Oral, DAILY PRN, Starting on Thu03/20/17 at 1443, Until 03/21/17 at 1528, Constipation, Routine 1616 ([facility] Hold - Provider: Admin Adt - Reason: Transfer to a Procedural area)1736 ([facility] Unhold - Provider: Admin Adt) fentaNYL 50 [...] discomfort with PIV insertion, Routine 161 ([facility] Hold - Provider: Admin Adt - Reason: [...] Routine documented in this encounter Care Teams E M Assembler Relationship Specialty Start Date End Date Garth Berg MD [address] [place] [address] PCP - General General Internal Medicine 03/02/17 documented as of this encounter
--- OUTSIDE RECORDS SUMMARY | 2023-10-06 01:35 | XMS_ITS | Encounter Summary ---
[place] [address] Care Team Providers Care Commercial Lines Account Assistant Name Role Phone Judd Scott MD Primary Care Provider [phone] Reason for Visit * Reason Onset Date Comments Referral 03/01/2014 Encounter Details Date Type Department Care Team (Late st Contact Info) Description 03/01/2014 Telephone [place] [phone] Faiza Kline Referral Social History Tobacco Use [...] filedocumented in this encounter Care Teams Commercial Lines Account Assistant Relationship Specialty Start Date End Date Judd Scott MD PCP - General 01/08/10 03/01/17 documented as of this encounter
--- OUTSIDE RECORDS SUMMARY | 2023-10-06 01:35 | XMS_ITS | Encounter Summary ---
Author Organization [facility] [place] [address] Care Team Providers Care Sharemilker Name Role Phone Judd Scott MD Primary Care Provider [phone] Encounter Details Date Type Department Care Team (Late st Contact Info) Description 05/22/2011 Orders Only Hematology Oncology at [address] [phone] Jm Meyer MD [address] [place] [id number] Social History Tobacco Use Types Packs/Day Years [...] on filedocumented in this encounter Care Teams Sharemilker Relationship Specialty Start Date End Date Judd Scott MD PCP - General 01/08/10 03/01/17 documented as of this encounter
--- OUTSIDE RECORDS SUMMARY | 2023-10-06 01:35 | XMS_ITS | Encounter Summary ---
[place] [address] Care Team Providers Care Pulmonologist/Intensivist Name Role Phone Judd Scott MD Primary Care Provider [phone] Reason for Visit * Reason Onset Date Comments Referral 01/23/2014 Encounter Details Date Type Department Care Team (Late st Contact Info) Description 01/23/2014 Telephone [place] [phone] Svetlana Frey Referral Social History Tobacco Use [...] Name: Pavanthuy Padilla : 1965 Phone number: [phone] (home) Mailing address: [place] [facility] [address] Age: 48 y.o. Appointment date: 2ND OPINION [...] When? Where? Notes: [address] 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 When? Where? Who? Notes: [facility] 2011 DR. SCHERER PH:[phone] DR. SCHERER Have you had any surgeries for this issue? No Did surgery include placement of implant/hardware or fixation of any kind? No Do you use any type of orthotics? No Additional injuries: Advanced Directive Do you have an Advanced Directive on file: No - Please bring a copy to your next appointment. 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 No - Patient Declined documented in this encounter Plan of Treatment Not on file documented as of this encounter Visit Diagnoses Not on filedocumented in this encounter Care Teams Pulmonologist/Intensivist Relationship Specialty Start Date End Date Judd Scott MD PCP - General 01/08/10 03/01/17 documented as of this encounter
--- OUTSIDE RECORDS SUMMARY | 2023-10-06 01:35 | XMS_ITS | Encounter Summary ---
Author Organization [facility] [place] [address] Care Team Providers Care Perinatal Director Name Role Phone Judd Scott MD Primary Care Provider [phone] Encounter Details Date Type Department Care Team (Late st Contact Info) Description 08/16/2013 Orders [place] [address] Warren He MD [facility] [place] [address] Social History Tobacco Use Types Packs/Day Years [...] is a Non-reportable exam Warren He MD [facility] FILM LIBRARY ORD ERABLES documented in this encounter Visit Diagnoses Not on filedocumented in this encounter Care Teams Perinatal Director Relationship Specialty Start Date End Date Judd Scott MD PCP - General 01/08/10 03/01/17 documented as of this encounter
--- NOTE | 2023-10-15 | DI.MRI_ITS ---
Exam(s) MR LOWER JOINT RT WO EXAM: MR LOWER JOINT RT WO CLINICAL HISTORY: PAIN,contusion rt knee,s80.01xa,internal derangement rt knee, m23.91. TECHNIQUE: Multiplanar multisequence MRI was performed. COMPARISON: CR XR KNEE RT 4V AP,LAT,RHYS,PAT from 09/10/2023 FINDINGS: BONES: Contusion involving medial femoral condyle. No discrete fracture. No contusion of the patell a or proximal tibia and fibula. JOINTS: A large joint effusion is present. Articular cartilage: Patellofemoral joint: Articular cartilage shows mild thinning. Tiny focal defect lateral facet.. Medial femoral tibial joint: Articular cartilage is unremarkable. Lateral femoral tibial joint: Articular cartilage is unremarkable. LIGAMENTS: Anterior Cruciate: Unremarkable. Posterior Cruciate: Unremarkable. Medial Collateral:Surrounding edema but no visible tear. Lateral Collateral ligament complex: Unremarkable. TENDONS: Extensor mechanism: Unremarkable. Medial retinaculum: Large amount of surrounding edema. Disruption of fibers. Lateral retinaculum: Unremarkable. Popliteus: Unremarkable. MENISCI: The medial meniscus is unremarkable. The lateral meniscus is unremarkable. MUSCLES: Edema and in inferior aspect of vastus medialis muscle. SOFT TISSUES: Edema in the anteromedial subcutaneous fat. IMPRESSION: Severe contusion of the medial femoral condyle. Disruption of the fibers of the medial patellar retinaculum. Joint effusion. DATA REPOSITORY:
== END 2023-10-15 02:47 ==
LOC: DI 02:27
PROVIDERS: PCP Student in an Organized Health Care Education/Training Program; Visit Provider Student in an Organized Health Care Education/Training Program
DX: S80.01XA Contusion of right knee, initial encounter (principal); M23.91 Unspecified internal derangement of right knee; M25.461 Effusion, right knee
CPT/HCPCS: 73721

== ENCOUNTER → 2023-10-21 11:04 | Outpatient (BNVA) | payer MEDICARE, MEDICAID, SELFPAY | PROVIDERS: PCP Student in an Organized Health Care Education/Training Program; Referring Provider Student in an Organized Health Care Education/Training Program; Visit Provider Student in an Organized Health Care Education/Training Program | DX: S80.01XA Contusion of right knee, initial encounter (principal); X58.XXXA Exposure to other specified factors, initial encounter; M23.91 Unspecified internal derangement of right knee | CPT/HCPCS: 99213 ==

== ENCOUNTER 2023-12-22 14:20 | Emergency (ER) | payer MEDICARE, MEDICAID, SELFPAY ==
[2023-12-22 14:21] VITALS: BP 116/69; PULSE 83; RESP 12; TEMP 36.7; O2SAT 97
--- NOTE | 2023-12-22 14:49 | W.ED.GENAD ---
Discharge Plan Disposition Patient Disposition: Home Condition: Stable Discharge Details Clinical Impression: Abscess Primary Care Provider: Angus Barnett ED Provider: Liu Lackey Home Meds and New Rx's Prescriptions: New sulfamethoxazole-trimethoprim [Bactrim DS] 800-160 mg tablet 1 tab PO BID 5 Days Qty: 10 0RF No Action (DME) lancets [FreeStyle Lancets] 28 gauge misc See Rx Instructions .ROUTE .MEDSUPPLY Qty: 25 Rx Instructions: As directed albuterol sulfate [Ventolin HFA] 90 mcg/actuation HFA aerosol inhaler 1 - 2 puff Inhalation Q4H PRN Qty: 1 6RF Patient Comments: 09/03/21 pt reports he hasnt used in @ 5 months Rx Instructions: PHARMACY: PLEASE DISPENSE ALBUTEROL BRAND COVERED BY INSURANCE gemfibrozil [Lopid] 600 mg tablet 600 mg PO DAILY Qty: 90 3RF atorvastatin 20 mg tablet 20 mg PO DAILY Qty: 90 3RF pantoprazole [Protonix] 40 mg tablet,delayed release (DR/EC) 40 mg PO DAILY Qty: 30 12RF sucralfate [Carafate] 1 gram tablet 1 g PO HS Qty: 30 12RF lisinopril 10 mg tablet 5 mg PO DAILY nitroglycerin [Nitrostat] 0.4 mg tablet, sublingual 0.4 mg Sublingual Q5 MIN PRN X3 Qty: 100 1RF Patient Comments: 09/03/21 pt reports he hasnt taken in @ 3 months Rx Instructions: 1 tab sublingual q5m PRN x3 chest pain cholecalciferol (vitamin D3) [Vitamin D3] 50 mcg (2,000 unit) tablet 2,000 unit PO DAILY Qty: 90 3RF aspirin 81 mg tablet,delayed release (DR/EC) 81 mg PO DAILY 90 Days Qty: 90 3RF (DME) FreeStyle Lite Strips Strip See Rx Instructions .ROUTE .MEDSUPPLY Qty: 100 3RF Patient Comments: pt. states he checks his sugars when he thinks his sugars high Rx Instructions: Test daily to keep HbA1c less than 6.5%; Dx: E11.9 acetaminophen 500 mg tablet 500 mg PO Q6H PRN (Reason: pain) Qty: 60 2RF ibuprofen 600 mg tablet 600 mg PO TID PRN (Reason: pain) Qty: 60 0RF insulin glargine [Basaglar KwikPen U-100 Insulin] 100 unit/mL (3 mL) insulin pen 15 unit subcut QAM Qty: 30 0RF metformin 500 mg tablet extended release 24 hr 1,000 mg PO TID Qty: 180 3RF Rx Instructions: for diabetes, two tabs in the morning Discharge Instructions Instructions: Abscess Incision and Drainage ED Additional Instructions: You have a small skin infection on your right lower leg called an abscess. We put pain medication and opened the abscess to drain the infection At home you should wash with soap and water and keep the area clean. We want it to stay open and drain. So you do not have to keep it covered. I placed a small strip of packing into the abscess pocket, this can come out in 24 hours but if it comes out sooner than that it is okay Please monitor the area of redness and swelling. This has been marked with a purple marker if it extends beyond this area, you develop more pain or any fevers, please return for reevaluation Complete the entire course of antibiotics as prescribed Follow-up with your PCP as needed HPI General Date/Time Provider Initiated Documentation: 12/22/23 14:26. Limitations to Documentation: no limitations. Information obtained by: patient. HPI Narrative: 58-year-old gentleman with past medical history of diabetes, CKD presents for evaluation of right lower extremity wound. He reports that for the last several days he has noted an area of redness and swelling on his leg. Today it really started to hurt and he noticed that it was not getting better. He has had other small bumps in the past but these have gotten better on their own. He denies any fever or chills. Denies any drainage from this area. He denies any history of significant skin infections or anything that is required drainage before. Related Data Home Medications ?Medication ?Instructions ?Recorded ?Confirmed lancets 28 gauge (FreeStyle #25 ea 08/29/19 12/22/23 Lancets) nitroglycerin 0.4 mg sublingual 0.4 mg sublingual Q5 MIN PRN X3 09/21/19 12/22/23 tablet (Nitrostat) chest pain #100 tabs albuterol sulfate 90 mcg/actuation 1 - 2 puff inhalation Q4H PRN ##1 10/20/19 12/22/23 aerosol inhaler (Ventolin HFA) cholecalciferol (vitamin D3) 50 2,000 unit PO DAILY #90 tab-caps 06/28/20 12/22/23 mcg (2,000 unit) tablet (Vitamin D3) atorvastatin 20 mg tablet 20 mg PO DAILY #90 tabs 11/09/20 12/22/23 gemfibrozil 600 mg tablet (Lopid) 600 mg PO DAILY #90 tabs 11/09/20 12/22/23 aspirin 81 mg tablet,delayed 81 mg PO DAILY 90 days ##90 01/31/21 12/22/23 release blood sugar diagnostic (FreeStyle #100 ea 03/14/21 12/22/23 Lite Strips) pantoprazole 40 mg tablet,delayed 40 mg PO DAILY #30 tabs 05/23/21 12/22/23 release (Protonix) sucralfate 1 gram tablet (Carafate) 1 g PO HS #30 tabs 05/23/21 12/22/23 lisinopril 10 mg tablet 5 mg PO DAILY 10/11/21 12/22/23 acetaminophen 500 mg tablet 500 mg PO Q6H PRN pain #60 tabs 12/04/21 12/22/23 ibuprofen 600 mg tablet 600 mg PO TID PRN pain #60 tabs 12/04/21 12/22/23 insulin glargine 100 unit/mL (3 15 unit (0.15 mL) subcut QAM #30 mL 10/02/23 12/22/23 mL) subcutaneous pen (Basaglar ShiraPen U-100 Insulin) metformin 500 mg tablet,extended 1,000 mg (2 x 500 mg) PO TID #180 10/02/23 12/22/23 release 24 hr tab-caps sulfamethoxazole 800 1 tab PO BID 5 days #10 tabs 12/22/23 mg-trimethoprim 160 mg tablet (Bactrim DS) Previous Rx's ?Medication ?Instructions ?Recorded nitroglycerin 0.4 mg sublingual 0.4 mg sublingual Q5 MIN PRN X3 09/21/19 tablet (Nitrostat) chest pain #100 tabs albuterol sulfate 90 mcg/actuation 1 - 2 puff inhalation Q4H PRN ##1 09/03/20 aerosol inhaler (Ventolin HFA) cholecalciferol (vitamin D3) 50 2,000 unit PO DAILY #90 tab-caps 06/28/20 mcg (2,000 unit) tablet (Vitamin D3) atorvastatin 20 mg tablet 20 mg PO DAILY #90 tabs 11/09/20 gemfibrozil 600 mg tablet (Lopid) 600 mg PO DAILY #90 tabs 11/09/20 aspirin 81 mg tablet,delayed 81 mg PO DAILY 90 days ##90 01/31/21 release blood sugar diagnostic (FreeStyle #100 ea 03/14/21 Lite Strips) pantoprazole 40 mg tablet,delayed 40 mg PO DAILY #30 tabs 05/23/21 release (Protonix) sucralfate 1 gram tablet (Carafate) 1 g PO HS #30 tabs 05/23/21 acetaminophen 500 mg tablet 500 mg PO Q6H PRN pain #60 tabs 12/04/21 ibuprofen 600 mg tablet 600 mg PO TID PRN pain #60 tabs 12/04/21 insulin glargine 100 unit/mL (3 15 unit (0.15 mL) subcut QAM #30 mL 10/02/23 mL) subcutaneous pen (Basaglar KwikPen U-100 Insulin) metformin 500 mg tablet,extended 1,000 mg (2 x 500 mg) PO TID #180 10/02/23 release 24 hr tab-caps sulfamethoxazole 800 1 tab PO BID 5 days #10 tabs 12/22/23 mg-trimethoprim 160 mg tablet (Bactrim DS) Allergies Allergy/AdvReac Type Severity Reaction Status Date / Time celecoxib Allergy Intermediate Rash, Verified 12/22/23 14:24 urticaria naproxen Allergy Intermediate Itchy Welts Verified 12/22/23 14:24 General Stated Complaint: RashLesion JAMES: 4 Exam Narrative Exam Narrative: Review of Systems: All systems reviewed & are unremarkable except as noted in HPI and below Well-developed, no acute distress Afebrile RRr Unlabored respiratory effort Right lateral calf with 3 x 3 area of erythema, some mild induration and central fluctuance no streaking lymphangitis or crepitus Course Vital Signs Vital signs: Vital Signs Temperature 36.7 C 12/22/23 14:21 Pulse 83 12/22/23 14:21 Respiratory Rate 12 12/22/23 14:21 Blood Pressure 116/69 12/22/23 14:21 Pulse Oximetry 97 12/22/23 14:21 Temperature 36.7 C 12/22/23 14:21 Temperature Source Oral 12/22/23 14:21 Pulse 83 12/22/23 14:21 Respiratory Rate 12 12/22/23 14:21 Respiratory Effort Normal, Non-Labored 12/22/23 14:25 Blood Pressure 116/69 12/22/23 14:21 Blood Pressure Position Sitting 12/22/23 14:21 Pulse Oximetry 97 12/22/23 14:21 Oxygen Delivery Method Room Air 12/22/23 14:21 Oxygen Flow Rate 0 12/22/23 14:21 Pain Level 7 12/22/23 14:21 Procedures Abscess I/D Site: Lower Extremity Side (if applicable): Right Local Anesthetic: Lidocaine 1% and With Epi Amount of anesthesia used (mL): 5 Technique: Incised with #11 Blade Packing used?: Plain Medical Decision Making Emergent evaluation of right lower extremity skin lesion. Examination is consistent with a small amount of cellulitis with abscess development. Patient does have diabetes, but there are no signs or symptoms concerning for necrotizing infection or deep space infection. The area was numbed with lidocaine and incised. A small amount of purulent drainage was expressed abscess pocket was deloculated. A small strip of packing was placed. Wound care at home was discussed with the patient including cleaning leaving the wound open, and strict return precautions were advised. Recommend close follow-up with PCP if he is having recurrent symptoms. Quality:SDOH Health Related Social Needs: No Data to Display PFSH All Active Problems Abscess (Acute) Internal derangement of right knee (Acute) Contusion of right knee (Acute 09/04/23) H/O urinary frequency (Acute) Abnormal stress test (Chronic) Tobacco use disorder (Chronic) Quit 2019, restarted late in the year Vitamin D deficiency (Chronic) Chronic kidney disease (CKD), stage III (moderate) (Chronic 05/26/16) ? due to DM or to hypertension Diabetes mellitus type 2 in obese (Chronic 02/19/16) presented with polyuria, elevated FS on friend's glucometer, A1c 14 at [facility] ER Essential hypertension (Chronic) goal <140/85 Gastroesophageal reflux disease without esophagitis (Chronic 12/05/11) ER 11/2014 rx PPI Microscopic hematuria (Chronic 02/27/14) CT neg; JUSTINO neg; persists 01/2015 Mixed hyperlipidemia (Chronic 02/16/01) low HDL 27; SL HIGH TG; CV RISK (12/2016): 27%: rec Statin Obesity, unspecified (Chronic 12/05/11) 1993 165#; 180 gives BMI <30 05/06/21 [facility], BMI 35.10 Obstructive sleep apnea (Chronic 03/10/16) [id number], severe in REM sleep Sleep study PSG on 03/10/16: AHI 20.1; SPO2 shailesh 82%; CPAP begun 06/08/16. with improvement in fatigue 06/29/16 restudied higher pressures needed assoc. with treatment of central sleep apnea Complex regional pain syndrome (Chronic 06/27/13) Type 2 diabetes mellitus (Chronic 12/05/11) Chest pain (Acute) Hypertrophy of tonsils (Acute) 02/21/2019 ENT, Dr Lange Dysfunction of left eustachian tube (Acute) 02/21/[address] Lange Edentulous (Acute) Chronic maxillary sinusitis (Acute) History of sinusitis (Acute) Abdominal obesity (Acute) Chest pain (Acute) Bilateral hydrocele (Acute) Abdominal pain (Acute) Lightheadedness (Acute) Hematuria (Acute) Family history of cerebral aneurysm (Chronic) Mother in Mar 2020 Right arm numbness (Acute) Functional bowel disorder (Acute) Diverticulosis (Chronic) Colonoscopy June 2019 Other constipation (Acute ~2020) [facility] Polyp of colon (Acute ~2020) [facility] Right lower quadrant pain (Acute ~2020) [facility] Sinusitis (Acute) High triglycerides (Acute) Dizziness (Acute) Dyspnea (Acute) Gout (Chronic) R 1st PIP joint Umbilical hernia (Acute) History of alcohol abuse (Acute) Burning sensation (Acute) Eructation (Acute) Medical History Urinary incontinence without sensory awareness Sessile colonic polyp (09/26/14) @ transverse colon, sigmoid Paresthesias (10/27/16) nocturnal, bilateral, R>L, Median nerve, probable CTS Surgical History Cubital tunnel syndrome of both upper extremities S/P L cubital tunnel release: 09/03/2021 S/P R cubital tunnel release: 12/04/2021 Carpal tunnel syndrome of right wrist S/P ECTR: 12/04/2021 Carpal tunnel syndrome of left wrist S/P ECTR: 09/03/2021 Cystoscopy w/ joe retrograde pyelogram (03/01/15) Colonoscopy - IV Sedation (09/26/14) [facility]ri, serrated polyp, fragments of sessile serrated adenoma Extraction of cataract (12/17/16) Left Radha Manzo; R 11/19/16 Cardiac Cath (03/24/17) [id number] stents placed Family History Father , lung cancer at age 67. Essential hypertension Neoplasm Mother Diabetes Essential hypertension Sister No problems noted. Sister No problems noted. Social History Smoking/Tobacco Use Status: Current every day Tobacco Type: cigarettes Tobacco: How many years used: 41 Quit status: considering quitting Smoking risk assessment performed?: Yes Alcohol Intake: former Drug use: Never Substance use type: does not use Household members: significant other Housing: apartment Number of Children: 3 Communication Needs: None Do you need help understanding health information?: Often current occupation: Disabled Current gender identity: male What is your relationship status?: living with partner How often do you talk on the phone with friends or family?: three or more times per week How often do you get together with friends or relatives?: three or more times per week Panel score (0-1 are the most socially isolated patients): 2 What type of physical activity do you participate in: none Seatbelt use: always Drive intox or ride w/intox mobile lounge driver: No Working smoke detector in home: No Fire extinguisher in home: No Carbon monox detector in home: No Do you feel safe at home: Yes Do you feel safe in your relationship?: Yes
[2023-12-22 15:09] VITALS: BP 116/74; PULSE 80; RESP 14; TEMP 36.6; O2SAT 100
--- OUTSIDE RECORDS SUMMARY | 2023-12-22 15:13 | XMS_ITS | Encounter Summary ---
Author Organization [facility] Address [address] [place] [address] Care Team Providers Care Power Plant Inspector Name Role Phone Unavailable Primary Care Provider Unavailabl e Encounter Details Date Type Department Care Team (Late st Contact Info) Description 09/26/2014 Results Only [facility]- [facility] [phone] Umang Rayo MD [address] [address] [place] [address] Social History Tobacco Use Types [...] ? MANNIE RODRIGUEZ ? Accession #: ? [id number] ? : ? 1965 (Age: 49) ??M [...] Valdez 09/27/2014 11:29 AM End of Report [facility] 09/26/2014 9:03 EDT 09/27/2014 9:03 EDT Umang Rayo MD PATHOLOGY ORDERABLES Performing Organization Address City/State/[facility] Co de Phone Number [facility] [address] [place] [address] documented in this encounter Visit Diagnoses Not on filedocumented in this encounter
--- OUTSIDE RECORDS SUMMARY | 2023-12-22 15:13 | XMS_ITS | Encounter Summary ---
Author Organization [facility] Address [address] [place] [address] Care Team Providers Care Land Classifier Name Role Phone Garth Marroquin DO Primary Care Provider [phone] Encounter Details Date Type Department Care Team (Late st Contact Info) Description 10/24/2019 Lab Requisition [facility] Pathology & Laboratory Medicine - [facility] [address] [place], [place] [id number] Outr Resulting Lab, Provider Social History Tobacco Use Types Packs/Day Years Used Date Smoking Tobacco: Every Day Cigarettes 3 47.8 Started: 1976 Smokeless Tobacco: Never Comments:currently 2pks [...] rt-PCR Result NEGATIVE Negative 10/25/2019 12:[address] [facility] Comment: 2019-novel Coronavirus (2019-nCoV) not [...] in accordance with CLIA regulations, [employer] [place] [employer] (CAP) guidelines (May 05, 2019), and FDA guidance (Apr 16, 2019). This test is only for use under the Food and Drug Administration's Emergency Use Authorization. Swab ENTIRE NASOPHARYNX / Unknown 10/24/2019 9:09 EDT 10/24/2019 19:46 EDT Provider Outr Resulting Lab MICROBIOLOGY - GENERAL ORDERABLES [facility] [place], [place] * COVID-19 TESTING (10/24/2019 9:09 EDT) COVID-19 rt-PCR Result NEGATIVE Negative 10/25/2019 14:[address] [facility] Comment: 2019-novel Coronavirus (2019-nCoV) not [...] in accordance with CLIA regulations, [employer] [place] Path[employer] (CAP) guidelines (May 05, 2019), and FDA guidance (Apr 16, 2019). This test is only for use under the Food and Drug Administration's Emergency Use Authorization. Performing Lab [facility] 10/25/2019 14:38 EDT [facility] Swab 10/24/2019 9:09 EDT 10/24/2019 19:46 EDT Provider Outr Resulting Lab MICROBIOLOGY - GENERAL ORDERABLES Performing Organization Address City/State/[facility] Co de Phone Number [facility] [address] [place] [address] [facility] [place] [place] documented in this encounter Visit Diagnoses Not on filedocumented in this encounter Care Teams Land Classifier Relationship Specialty Start Date End Date Garth Marroquin DO [address] [place] [address] PCP - General 10/30/17 documented as of this encounter
--- OUTSIDE RECORDS SUMMARY | 2023-12-22 15:13 | XMS_ITS | Encounter Summary ---
Author Organization [facility] Address [address] [place] [address] Care Team Providers Care Superintendent Transportation Name Role Phone Garth Marroquin DO Primary Care Provider [phone] Encounter Details Date Type Department Care Team (Latest Contact Info) Description 05/14/2018 8:47 EDT - 05/14/2018 23:59 EDT Hospital Encounter [address] [address] Unknown, Provider, MD Discharge Disposition: Home or Self Care Social [...] Code Departure Means Destination Home or Self Fpc documented in this encounter Plan of Treatment Not on file documented as of this encounter Visit Diagnoses Not on filedocumented in this encounter Care Teams Superintendent Transportation Relationship Specialty Start Date End Date Garth Marroquin DO [address] [place] [address] PCP - General 10/30/17 documented as of this encounter
--- OUTSIDE RECORDS SUMMARY | 2023-12-22 15:13 | XMS_ITS | Encounter Summary ---
Author Organization [facility] Address [address] [place] [address] Care Team Providers Care Edgerman Name Role Phone Garth Marroquin DO Primary Care Provider [phone] Encounter Details Date Type Department Care Team (Late st Contact Info) Description 05/17/[address] [facility] [phone] Sonny Medina MD [address] [place] [address] Social History Tobacco Use Types [...] MANNIE RODRIGUEZ JR ? Accession #: ? [id number] ? : ? 1965 (Age: 52) ??M [...] (ASCP) 05/17/2018 4:40 PM End of Report [facility] 05/14/2018 16:3 3 EDT 05/17/2018 16:33 EDT Sonny Medina MD PATHOLOGY ORDERABLES [facility] [address] [place] [address] documented in this encounter Visit Diagnoses Not on filedocumented in this encounter Care Teams Edgerman Relationship Specialty Start Date End Date Garth Marroquin DO [address] [place] [phone] PCP - General 10/30/17 documented as of this encounter
--- OUTSIDE RECORDS SUMMARY | 2023-12-22 15:13 | XMS_ITS | Encounter Summary ---
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
--- OUTSIDE RECORDS SUMMARY | 2023-12-22 15:13 | XMS_ITS | Encounter Summary ---
Author Organization [facility] Address [address] [place] [address] Care Team Providers Care Carton Wrapper Name Role Phone Garth Marroquin DO Primary Care Provider [phone] Encounter Details Date Type Department Care Team (Late st Contact Info) Description 06/23/2020 Lab Requisition [facility] Pathology & Laboratory Medicine - [facility] [address] [place] [address] Angus Raza MD [address] [place] [phone] Encounter for screening for malignant neoplasm [...] - Deeper sections x3 examined. 06/27/2020 9:33 [facility] Attestation By the signature below, the attending physician certifies that they have 1) personally conducted a gross and/or microscopic examination of the described specimen(s), and/or personally interpreted the results of laboratory testing of the described specimen(s), and 2) personally rendered or confirmed the above diagnosis. 06/27/2020 9:33 [facility] at 0933 Clinical History Abdominal pain, history of adenomatous polyps, fatty liver; clinical diagnosis code: Z12.11, R10.31, Z86.010 06/27/2020 9:33 [facility] Gross Description A. Received [...] C1. JAMES MYERS(ASCP) 06/25/2020 10:15 06/27/2020 9:33 [facility] Performing Lab [facility] 06/27/2020 9:33 [facility] Scanned Images 06/27/2020 9:33 [facility] Tissue ENTIRE SIGMOID COLON / Unknown 06/22/2020 7:31 EDT 06/23/2020 9:41 EDT Tissue specimen (specimen) TRANSVERSE COLON STRUCTURE / Unknown 06/22/2020 7:31 EDT 06/23/2020 9:41 EDT Tissue specimen (specimen) SIGMOID COLON STRUCTURE / Unknown 06/22/2020 7:31 EDT 06/23/2020 9:41 EDT Angus Raza MD PATHOLOGY ORD ERABLES [facility] [address] [place] [address] documented in this encounter Visit Diagnoses Diagnosis Encounter for screening for malignant neoplasm of colon Special screening for malignant neoplasms, colon Right lower quadrant pain Abdominal pain, right lower quadrant Personal history of colonic polyps documented in this encounter Care Teams Carton Wrapper Relationship Specialty Start Date End Date Garth Marroquin DO [address] [place] [address] PCP - General 10/30/17 documented as of this encounter
--- OUTSIDE RECORDS SUMMARY | 2023-12-22 15:13 | XMS_ITS | Encounter Summary ---
Author Organization [facility] Address [address] [place] [address] Care Team Providers Care Marine Steamfitter Name Role Phone Garth Marroquin DO Primary Care Provider [phone] Encounter Details Date Type Department Care Team (Late st Contact Info) Description 11/06/2017 Results Only [facility] [phone] Unknown, Provider, MD Social History Tobacco Use Types Packs/Day Years [...] on filedocumented in this encounter Care Teams Marine Steamfitter Relationship Specialty Start Date End Date Garth Marroquin DO [address] [place] [phone] PCP - General 10/30/17 documented as of this encounter
--- OUTSIDE RECORDS SUMMARY | 2023-12-22 15:13 | XMS_ITS | Encounter Summary ---
Author Organization [facility] Address [address] [place] [address] Care Team Providers Care Step Finisher Name Role Phone Garth Marroquin DO Primary Care Provider [phone] Encounter Details Date Type Department Care Team (Late st Contact Info) Description 07/18/2019 Lab Requisition [facility] Pathology & Laboratory Medicine - [facility] [address] [place] [address] Angus Raza MD [address] [place] [phone] Gastro-esophageal reflux disease without esophagitis; Right lower [...] features compatible with glycogenic acanthosis. 07/19/2019 17:16 [facility] at 1716 Attestation By the signature below, the attending physician certifies that they have 1) personally conducted a gross and/or microscopic examination of the described specimen(s), and/or personally interpreted the results of laboratory testing of the described specimen(s), and 2) personally rendered or confirmed the above diagnosis. 07/19/2019 17:16 [facility] at 1716 Clinical History Esophageal plaque; gastric erosion 07/19/2019 17:16 [facility] Gross Description A. [...] C1. Petty Rawls 07/18/2019 15:58 07/19/2019 17:16 [facility] Scanned Images 07/19/2019 17:16 [facility] Tissue ENTIRE ESOPHAGUS / Unknown 07/15/2019 7:45 EDT 07/18/2019 15:36 EDT Tissue specimen (specimen) STOMACH STRUCTURE / Unknown 07/15/2019 7:45 EDT 07/18/2019 15:36 EDT Tissue specimen (specimen) ESOPHAGEAL STRUCTURE / Unknown 07/15/2019 7:45 EDT 07/18/2019 15:36 EDT Angus Raza MD PATHOLOGY ORD ERABLES [facility] [address] [place] [address] documented in this encounter Visit Diagnoses Diagnosis Gastro-esophageal reflux disease without esophagitis Esophageal reflux Right lower quadrant pain Abdominal pain, right lower quadrant documented in this encounter Care Teams Step Finisher Relationship Specialty Start Date End Date Garth Marroquin DO [address] [place], [place] [address] [address] PCP - General 10/30/17 documented as of this encounter
--- OUTSIDE RECORDS SUMMARY | 2023-12-22 15:13 | XMS_ITS | Encounter Summary ---
Author Organization [facility] Address [address] [place] [address] Care Team Providers Care Welding Machine Operator Electroslag Name Role Phone Garth Marroquin DO Primary Care Provider [phone] Reason for Visit * Reason Onset Date Comments Patient Information Update 11/06/2017 Results 11/09/2017 Returning Call 11/09/2017 Encounter Details Date Type Department Care Team (Late st Contact Info) Description 11/06/[address] [facility] Pulmonology & Critical Care - [facility] [address] [place] [address] Troy Ray MD [address] [place] [address], [address] [place] [address] Patient Information Update; Results; Returning [...] Howard RN - 11/06/2017 1324 EDT Called [facility] and requested that results/images be [...] on filedocumented in this encounter Care Teams Welding Machine Operator Electroslag Relationship Specialty Start Date End Date Garth Marroquin DO [address] [facility] [place] [address] PCP - General 10/30/17 documented as of this encounter
--- OUTSIDE RECORDS SUMMARY | 2023-12-22 15:13 | XMS_ITS | Encounter Summary ---
Author Organization [facility] Address [address] [place] [address] Care Team Providers Care Gynecological Assistant Name Role Phone Garth Marroquin DO Primary Care Provider [phone] Encounter Details Date Type Department Care Team (Late st Contact Info) Description 04/17/2021 Lab Requisition [facility] Pathology & Laboratory Medicine - [facility] [address] [place], [place] [address] Outr Resulting Lab, Provider Social History Tobacco [...] 3.59 See Note mg/L 04/17/2021 21:50 EST [facility] Comment: Reference Range: ??Low Risk: ? <1.0 mg/L ??Average Risk: ?? 1.0 - 3.0 mg/L ??High Risk: ?>3.0 mg/L ??Indeterminate*: >10.0 mg/L ??*May be an indication of another source of inflammation or infection Blood VENOUS BLOOD / Unknown 04/17/2021 10:45 EST 04/17/2021 21:30 EST Provider Outr Resulting Lab CHEMISTRY & BLOOD GAS ORDERABLES Performing Organization Address City/State/[facility] Co de Phone Number [facility] [address] [place] [address] documented in this encounter Visit Diagnoses Not on filedocumented in this encounter Care Teams Gynecological Assistant Relationship Specialty Start Date End Date Garth Marroquin DO [address] [facility] [place] [address] PCP - General 10/30/17 documented as of this encounter
--- OUTSIDE RECORDS SUMMARY | 2023-12-22 15:13 | XMS_ITS | Referral Summary ---
Author Organization [facility] Address [address] [place] [address] Care Team Providers Care Puppy Sitter Name Role Phone Garth Marroquin DO Primary Care Provider [phone] Allergies Active Allergy Reactions Criticality Noted Date [...] 3 47.8 Started: 1978 Smokeless Tobacco: Never Tobacco Cessation:Ready [...] of Treatment Not on file Care Teams Puppy Sitter Relationship Specialty Start Date End Date Garth Marroquin DO [address] [place] [phone] PCP - General 9/14/18
--- OUTSIDE RECORDS SUMMARY | 2023-12-22 15:13 | XMS_ITS | Encounter Summary ---
Author Organization [facility] Address [address] [place] [address] Care Team Providers Care Nurse Advisor Name Role Phone Garth Marroquin DO Primary Care Provider [phone] Encounter Details Date Type Department Care Team (Late st Contact Info) Description 09/17/2019 Lab Requisition [facility] Pathology & Laboratory Medicine - [address] [address] Outr Resulting Lab, Provider Social History Tobacco [...] MICROBIOLOGY - GENERAL ORDERABLES Performing Organization Address City/State/[facility] Co de Phone Number [facility] [address] [place] [address] * COVID-19 TESTING (09/17/2019 13:37 EDT) COVID-19 rt-PCR Result Negative Negative 09/18/2019 13:41 EDT [facility] Comment: This test [...] history, and epidemiological information. Performed on the Grassroots Unwiredher Fusion instrument Performing Lab [place] [facility] Lab 09/18/2019 13:41 EDT [facility] Swab 09/17/2019 13:3 7 EDT 09/18/2019 9:35 EDT Provider Outr Resulting Lab MICROBIOLOGY - GENERAL ORDERABLES Performing Organization Address [facility] Co de Phone Number [facility] [address] [place] [address] documented in this encounter Visit Diagnoses Not on filedocumented in this encounter Care Teams Nurse Advisor Relationship Specialty Start Date End Date Garth Marroquin DO [address] [place] [phone] PCP - General 10/30/17 documented as of this encounter
--- OUTSIDE RECORDS SUMMARY | 2023-12-22 15:13 | XMS_ITS | Encounter Summary ---
Author Organization [facility] Address [address] [place] [address] Care Team Providers Care Supply Officer Name Role Phone Garth Marroquin DO Primary Care Provider [phone] Reason for Referral * Radiology Services (Routine) - Authorization Not Required Specialty Diagnoses / Procedures Referred By Contac t Referred To Contact Diagnoses Lung nodule Procedures CT CHEST W CONTRAST Troy Ray MD [address] [place] [phone] Referral ID Status Reason Start Date Expiration Date Visits Requested Visits Authorized [id number] Authorization Not Required 11/02/2017 1 1 Reason for Visit * Reason Comments New Patient Visit * Consult (Routine) - Closed Specialty Diagnoses / Procedures Referred By Contyashira grossman Referred To Contact Diagnoses Pulmonary nodule Garth Marroquin DO [address] [place] [phone] Referral ID Status Reason Start Date Expiration Date Visits Re quested Visits Authorized [id number] Closed 1 1 Encounter Details Date Type Department Care Team (Late st Contact Info) Description 11/02/2017 10:00 EDT Office Visit [facility] Pulmonology & Critical Care - [address] [phone] Troy Ray MD [address] [place] [phone] Lung nodule (Primary Dx) Discharge Disposition: Auto [...] nicotine overdose. Counseling available to assist you [place] Quit By Phone You have chosen the [employer]'s Quit by Phone program. Once you have [...] describedunder Medications to Help You Succeed. Call 3-632-GPOA-NOW ( ) or contact them via the [place] [employer] website at www.[employer].org. I hope you quit smoking. I think it's the best thing you can do for your health. Please call our office if you have any questions. 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 He is [...] Medical History: Diagnosis Date ??? Diabetes mellitus ([facility]) ??? Hypertension ??? Obstructive sleep apnea ??? [...] associated adenopathy. This can be done in [facility]. Following this, he may need a percutaneous biopsy or PET scan. 2. Active smoking. He is currently smoking 2 packs per day. We had a long discussion today about the risks of smoking particularly while we are evaluating potentially treating a lung cancer. Even if this does not nocturnist to be cancer, smoking cessation is strongly encouraged. We discussed using patches plus the nicotine inhaler. RECOMMENDATIONS 1. CT scan of the chest to be requested from [facility]. I instructed the patient to call [...] of these investigations. Please call me at [phone] if any further questions arise. Troy Ray [...] daily. added in this encounter Care Teams Supply Officer Relationship Specialty Start Date End Date Garth Marroquin DO [address] [facility] [phone] PCP - General 10/30/17 documented as of this encounter
--- OUTSIDE RECORDS SUMMARY | 2023-12-22 15:13 | XMS_ITS | Encounter Summary ---
Author Organization [facility] Address [address] [place] [address] Care Team Providers Care Operations Staff Specialist Security Name Role Phone Garth Marroquin DO Primary Care Provider [phone] Encounter Details Date Type Department Care Team (Late st Contact Info) Description 07/04/2022 Lab Requisition [facility] Pathology & Laboratory Medicine - [facility] [address] [place], [place] [address] Outr Resulting Lab, Provider Social History Tobacco [...] PSA 0.6 <=3.5 ng/mL 07/07/2022 9:23 EDT [facility] Blood VENOUS BLOOD / Unknown 07/04/2022 15:00 EDT 07/04/2022 21:27 EDT Narrative [facility] - 07/07/2022 9:23 EDT NOTE: Serum PSA concentration should not be interpreted as absolute evidence for the presence or absence of malignant disease. Assayed on Siemens ADVIA Zadyaur XPT using chemiluminescent technology.??Values obtained by using different assay methods cannot be used interchangeably. Provider Outr Resulting Lab CHEMISTRY & BLOOD GAS ORDERABLES [facility] [address] [place] [address] documented in this encounter Visit Diagnoses Not on filedocumented in this encounter Care Teams Operations Staff Specialist Security Relationship Specialty Start Date End Date Garth Marroquin DO [address] [facility] [place] [phone] PCP - General 10/30/17 documented as of this encounter
--- OUTSIDE RECORDS SUMMARY | 2023-12-22 15:13 | XMS_ITS | Encounter Summary ---
Author Organization [facility] Address [address] [place] [address] Care Team Providers Care Stationary Engineer Name Role Phone Garth Berg MD Primary Care Provider Unav ailable Encounter Details Date Type Department Care Team (Late st Contact Info) Description 09/29/2017 Results Only Imaging [facility] [phone] Unknown, Provider, Social History Tobacco Use Types [...] on filedocumented in this encounter Care Teams Stationary Engineer Relationship Specialty Start Date End Date Garth Berg MD PCP - General 09/29/14 10/29/17 documented as of this encounter
--- OUTSIDE RECORDS SUMMARY | 2023-12-22 15:13 | XMS_ITS | Encounter Summary ---
Author Organization [facility] Address [address] [place] [address] Care Team Providers Care Leveler Name Role Phone Garth Marroquin DO Primary Care Provider [phone] Encounter Details Date Type Department Care Team (Late st Contact Info) Description 03/30/2020 Lab Requisition [facility] Pathology & Laboratory Medicine - [address] [address] Outr Resulting Lab, Provider Social History Tobacco [...] 0.0 - 3.5 ng/mL 03/30/2020 18:03 EST [facility] Blood VENOUS BLOOD / Unknown 03/29/2020 13:40 EST 03/30/2020 16:30 EST Narrative [facility] - 03/30/2020 18:03 EST NOTE: Serum PSA concentration should not be interpreted as absolute evidence for the presence or absence of malignant disease. Assayed on Siemens ADVIA Centaur XPT using chemiluminescent technology.??Values obtained by using different assay methods cannot be used interchangeably. Provider Outr Resulting Lab CHEMISTRY & BLOOD GAS ORDERABLES [facility] [address] [place] [address] documented in this encounter Visit Diagnoses Not on filedocumented in this encounter Care Teams Leveler Relationship Specialty Start Date End Date Garth Marroquin DO [address] [place] [phone] PCP - General 10/30/17 documented as of this encounter
--- OUTSIDE RECORDS SUMMARY | 2023-12-22 15:13 | XMS_ITS | Encounter Summary ---
Author Organization [facility] Address [address] [place] [address] Care Team Providers Care Picture Hanger Name Role Phone Garth Marroquin DO Primary Care Provider [phone] Reason for Visit * Reason Onset Date Comments Appointment Related 11/30/2017 Reschedule I R Biopsy Encounter Details Date Type Department Care Team (Late st Contact Info) Description 11/30/2017 Telephone [facility] Interventional Rad Clinic - [address] [phone] Colton Edmond MD [address] [facility], [address] [place] [address] Appointment Related (Reschedule IR Biopsy) [...] on filedocumented in this encounter Care Teams Picture Hanger Relationship Specialty Start Date End Date Garth Marroquin DO [address] [place] [phone] PCP - General 10/30/17 documented as of this encounter
--- OUTSIDE RECORDS SUMMARY | 2023-12-22 15:13 | XMS_ITS | Encounter Summary ---
Author Organization [facility] Address [address] [place] [address] Care Team Providers Care Assembler Musical Equipment Name Role Phone Unavailable Primary Care Provider Unavailabl e Encounter Details Date Type Department Care Team (Latest Contact Info) Description 09/26/2014 11:21 EDT - 09/26/2014 23:59 EDT Hospital Encounter [address] [address] Unknown, Provider, MD Discharge Disposition: Home or Self Care Social History Tobacco Use Types Packs/Day Years Used Date Smoking Tobacco: Never Assessed Sex and Gender Information Value Date Recorded Sex Assigned at Not on file Gender Identity Not on file Sexual Orientation Not on file documented as of this encounter Discharge Disposition Disposition Code Departure Means Destination Home or Self Penitentiary documented in this encounter Plan of Treatment Not on file documented as of this encounter Visit Diagnoses Not on filedocumented in this encounter
--- OUTSIDE RECORDS SUMMARY | 2023-12-22 15:13 | XMS_ITS | Encounter Summary ---
Author Organization [facility] Address [address] [place] [address] Care Team Providers Care Shank Sander Name Role Phone Garht Marroquin DO Primary Care Provider [phone] Encounter Details Date Type Department Care Team (Late st Contact Info) Description 12/16/2017 Pre-Procedure Orders Encounter [facility] Interventional Radiology - [address] [address] Nicholas Tabares PA-C [address] [facility], [address] [place] [phone] Social History Tobacco Use Types Packs/Day Years [...] on filedocumented in this encounter Care Teams Shank Sander Relationship Specialty Start Date End Date Garth Marroquin DO [address] [place] [phone] PCP - General 10/30/17 documented as of this encounter
--- OUTSIDE RECORDS SUMMARY | 2023-12-22 15:13 | XMS_ITS | Clinical Summary ---
Author Organization [facility] Address [address] [place] [address] Care Team Providers Care Glass Products Inspector Name Role Phone Garth Marroquin DO Primary Care Provider [phone] Allergies Active Allergy Reactions Criticality Noted Date [...] History Date Comments Diabetes mellitus ([facility]) Hypertension Smoking greater than 40 pack [...] - 1-dose 60+ series) 2023 Care Teams Glass Products Inspector Relationship Specialty Start Date End Date Garth Marroquin DO [address] [place] [phone] PCP - General 10/30/17
--- OUTSIDE RECORDS SUMMARY | 2023-12-22 15:13 | XMS_ITS | Encounter Summary ---
Author Organization [facility] Address [address] [place] [address] Care Team Providers Care Gaming Department Head Name Role Phone Garth Marroquin DO Primary Care Provider [phone] Encounter Details Date Type Department Care Team (Late st Contact Info) Description 06/12/2020 Lab Requisition [facility] Pathology & Laboratory Medicine - [address] [address] Desmond Rogers MD [address] [place] [phone] Other microscopic hematuria Social History Tobacco Use [...] Name Priority Date/Time Associated Diagnosis Comments NON SOCIAL WORK CASE MANAGER/FNA CYTOLOGY Today 06/11/2020 8:00 EDT Other microscopic hematuria documented in this encounter Results * NON SOCIAL WORK CASE MANAGER/FNA CYTOLOGY (06/11/2020 8:00 EDT) Final Diagnosis URINE, BARBOTAGE, CYTOLOGIC EVALUATION: - Negative for high grade urothelial carcinoma. 06/12/2020 14:18 EDT [facility] Attestation By the signature below, the attending physician certifies that they have personally conducted a gross and/or microscopic examination of the described specimens and rendered or confirmed the above diagnosis. 06/12/2020 14:18 EDT [facility] at 1418 Clinical History Microscopic hematuria; R31.29 06/12/2020 14:18 EDT [facility] Gross Description A. 70 ccs of slightly cloudy, pale pink fluid, of which 35 ccs are composed of Cytolyt, were received and processed by selective cellular enhancement technique. 06/12/2020 14:18 EDT [facility] Performing Lab [facility] 06/12/2020 14:18 EDT [facility] Scanned Images 06/12/2020 14:18 EDT [facility] Urine URINE SPECIMEN / Unknown 06/11/2020 8:00 EDT 06/12/2020 7:44 EDT Desmond Rogers MD PATHOLOGY ORDERAB LES [facility] [address] [place] [address] documented in this encounter Visit Diagnoses Diagnosis Other microscopic hematuria documented in this encounter Care Teams Gaming Department Head Relationship Specialty Start Date End Date Garth Marroquin DO [address] [place] [address] PCP - General 10/30/17 documented as of this encounter
--- OUTSIDE RECORDS SUMMARY | 2023-12-22 15:13 | XMS_ITS | Encounter Summary ---
Author Organization [facility] Address [address] [place] [address] Care Team Providers Care Barn Boss Name Role Phone Garth Marroquin DO Primary Care Provider [phone] Encounter Details Date Type Department Care Team (Late st Contact Info) Description 11/09/2017 Orders Only [facility] Pulmonology & Critical Care - [address] [address] Troy Ray MD [address] [facility], [address] [place] [phone] Lung nodule (Primary Dx) Social History Tobacco [...] nodule documented in this encounter Care Teams Barn Boss Relationship Specialty Start Date End Date Garth Marroquin DO [address] [place] [address] PCP - General 10/30/17 documented as of this encounter
--- OUTSIDE RECORDS SUMMARY | 2023-12-22 15:14 | XMS_ITS | Encounter Summary ---
Author Organization [facility] Address [facility] [place] [address] Care Team Providers Care Mold Construction Supervisor Name Role Phone Judd Pizarro MD Primary Care Provider [phone] Encounter Details Date Type Department Care Team (Late st Contact Info) Description 09/26/2021 10:45 AM EDT TH Visit (TeleHealth) Weight and Wellness at [address] [address] [address] [facility] [place] [address] Adult BMI 34.0-34.9 kg/sq m Social History [...] at home at the following address: [address] [place] [address] Weight Today: Wt Readings from Last 3 [...] eggs, white toast, sausage or fox L: [employer]-ham or turkey, cheese, mustard, sometimes lettuce D: Burgers or chicken on grill, cauliflower or broccoli, or fresh peas or other veg from garden S: ~ 5pm bowl of ice cream-2 scoops Typical Beverages: [x] coffee [] half and half (unflavored) [x] flavored creamer (sugar) Greenlandic vanilla [] flavored creamer (sugar-free) [] added sugar - (total: [] added non-caloric sweetener [x] water - (total: 2-3 bottles, 1 near the bed at night [x] plain [] crystal light or other sugar-free additive [] Kamuela (natural or artificial flavoring or plain only) [...] adult documented in this encounter Care Teams Mold Construction Supervisor Relationship Specialty Start Date End Date Judd Pizarro MD PCP - General Family Medicine 06/20/21 documented as of this encounter
--- OUTSIDE RECORDS SUMMARY | 2023-12-22 15:14 | XMS_ITS | Encounter Summary ---
Author Organization [facility] [place] [address] Care Team Providers Care Enterprise Account Executive Name Role Phone Judd Pizarro MD Primary Care Provider [phone] Reason for Visit * Reason Onset Date Comments Appointment 09/27/2021 Encounter Details Date Type Department Care Team (Late st Contact Info) Description 09/27/2021 Telephone Weight and Wellness at [facility] [address] [place] [address] Daria Huynh Appointment Social History [...] on filedocumented in this encounter Care Teams Enterprise Account Executive Relationship Specialty Start Date End Date Judd Pizarro MD PCP - General Family Medicine 06/20/21 documented as of this encounter
--- OUTSIDE RECORDS SUMMARY | 2023-12-22 15:14 | XMS_ITS | Encounter Summary ---
Author Organization [facility] [place] [address] Care Team Providers Care Alodize Machine Helper Name Role Phone Garth Marroquin DO Primary Care Provider [phone] Reason for Visit * Reason Onset Date Comments Appointment 10/16/2020 Encounter Details Date Type Department Care Team (Late st Contact Info) Description 10/16/2020 Telephone Weight and Wellness at [address] [phone] Trini Mcduffie Appointment Social History [...] on filedocumented in this encounter Care Teams Alodize Machine Helper Relationship Specialty Start Date End Date Garth Marroquin DO [facility] [place] [address] PCP - General Family Medicine 03/02/20 06/19/21 documented as of this encounter
--- OUTSIDE RECORDS SUMMARY | 2023-12-22 15:14 | XMS_ITS | Encounter Summary ---
Author Organization [facility] [place] [address] Care Team Providers Care Hot Roll Inspector Name Role Phone Garth Marroquin DO Primary Care Provider [phone] Encounter Details Date Type Department Care Team (Late st Contact Info) Description 09/27/2020 Notes Only Weight and Wellness at [address] [phone] Elidia Mallory Social History Tobacco Use Types [...] Date: 09/27/20 PI/Designee: Dr. Leonidas Scott/Elidia Mallory [facility] [id number]: [facility] Biorepository VELOS: [id number] Pavanthuy Padilla consented via electronic consent to [...] on filedocumented in this encounter Care Teams Hot Roll Inspector Relationship Specialty Start Date End Date Garth Marroquin DO [address] [place] [address] PCP - General Family Medicine 03/02/20 06/19/21 documented as of this encounter
--- OUTSIDE RECORDS SUMMARY | 2023-12-22 15:14 | XMS_ITS | Encounter Summary ---
Author Organization [facility] [place] [address] Care Team Providers Care Specialty Sales Representative Name Role Phone Judd Pizarro MD Primary Care Provider [phone] Reason for Visit * Reason Onset Date Comments Appointment 11/29/2021 Encounter Details Date Type Department Care Team (Late st Contact Info) Description 11/29/2021 Telephone Weight and Wellness at [facility] [address] [place] [phone] Mariam Reynoso V Appointment Social History Tobacco [...] on filedocumented in this encounter Care Teams Specialty Sales Representative Relationship Specialty Start Date End Date Judd Pizarro MD PCP - General Family Medicine 06/20/21 documented as of this encounter
--- OUTSIDE RECORDS SUMMARY | 2023-12-22 15:14 | XMS_ITS | Encounter Summary ---
Author Organization [facility] [place] [place] [address] Care Team Providers Care Interim Controller Name Role Phone Garth Marroquin DO Primary Care Provider [phone] Encounter Details Date Type Department Care Team (Late st Contact Info) Description 03/21/2021 Telephone Weight and Wellness at [facility] [address] [place] [address] Martina Jerome, DONOVAN Social History [...] PM EST [facility] Derrick Follower Pre-telemedicine Visit Phone Note Pavan Padilla 1965 [x] Patient was not reached Patient was reached and the following information was reviewed/obtained per protocol: [] Confirmed patient name and date of [] Confirmed ZOOM downloaded and functioning [] ZOOM appointment link sent if no MyDH [] Phone number to be reached is: [phone] REVIEW: [] Review of patient medications completed [...] on filedocumented in this encounter Care Teams Interim Controller Relationship Specialty Start Date End Date Garth Marroquin DO [address] [place] [address] PCP - General Family Medicine 03/02/20 06/19/21 documented as of this encounter
--- OUTSIDE RECORDS SUMMARY | 2023-12-22 15:14 | XMS_ITS | Encounter Summary ---
Author Organization [facility] Address [facility] [place] [address] Care Team Providers Care Emergency Room Specialist Name Role Phone Garth Marroquin DO Primary Care Provider [phone] Encounter Details Date Type Department Care Team (Latest Contact Info) Description 05/06/2021 2:00 PM EDT TH Visit (TeleHealth) Weight and Wellness at [address] [address] Nolvia Saleh, RD [facility] [place] [address] Adult BMI 34.0-34.9 kg/sq m; Adult BMI [...] past visits. Please reach out with a [employer] message if you have any questions or [...] Nutrition Change to whole wheat toast or Nepalese Muffin at breakfast. Instead of 4 eggs , have 2 eggs and peanut butter on the Nepalese muffin. When looking for a whole grain [...] was at home at the following address: [address] [place] [address] [address] [facility] [address] Weight Today: 213 lb from home scale [...] hunger. Typical Dietary Intake: B: 2-3 eggs, Nepalese muffin L: dinner leftovers (not sure if [...] Nutrition Change to whole wheat toast or Nepalese Muffin at breakfast. Instead of 4 eggs , have 2 eggs and peanut butter on the Nepalese muffin. Consider changing to HalfNHalf or cream [...] track Change to whole wheat toast or Nepalese Muffin at breakfast. Instead of 4 eggs , have 2 eggs and peanut butter on the Nepalese muffin. When looking for a whole grain [...] initial visit Thank you Nolvia Saleh RD [facility] 60 minutes were spent in visit today, [...] adult documented in this encounter Care Teams Emergency Room Specialist Relationship Specialty Start Date End Date Grath Marroquin DO [address] [place] [address] PCP - General Family Medicine 03/02/20 06/19/21 documented as of this encounter
--- OUTSIDE RECORDS SUMMARY | 2023-12-22 15:14 | XMS_ITS | Clinical Summary ---
Author Organization [facility] Address One [facility] [place] [address] Care Team Providers Care Sports Betting Manager Name Role Phone Judd Pizarro MD Primary Care Provider [phone] Allergies Active Allergy Reactions Criticality Noted Date [...] by mouth daily. 02/17/2022 Active HYDROcodone-acetam inophen ([place]) 5-325 mg Tablet TAKE 1 TABLET BY [...] HIV screen 08/21/1981 Hepatitis C Screening 08/21/1981 Tetanus/Diphtheria/Pertussis Vaccines (1 - Tdap) 08/21/1982 Zoster vaccine (1 of 2) 08/21/2013 DM Hemoglobin A1c 6 month 08/20/20222022, 03/08/2021, 12/20/2020, Additional history exists DM Creatinine yearly 02/20/2023 02/20/2022, 04/17/2021, 04/23/2020, Additional history exists Covid-19 Vaccine (1 - 2022-2 4 season) 2023 Influenza (Flu) vaccine (1 o f 1 [...] Hemoglobin A1c 6.2(H) 4.3 - 5.6 % [facility] Comment: Reference Range: 4.3 [...] Mellitus, Diabetes Care 2013; 36: Suppl. 1, G77-52 Estimated Average Glucose 130 mg/dL [facility] Comment: eAG equivalents for [...] into estimated average glucose values. ??Diabetes Care 2008:31(8):0816-5187. Blood 02/20/2022 5:47 PM EST 02/20/2022 5:54 PM EST Narrative Resulting Agency Comment Spec In Lab Tessie Robles MD CHEMISTRY ORDERABLES [facility] [place] [address] * (ABNORMAL) Comprehensive metabolic panel (non-fasting) (02/20/2022 5:47 PM EST) Glucose 134 65 - 199 mg/dL [facility] Comment:Diabetes: >=200 mg/d L plus symptoms Blood Urea Nitrogen 16 10 - 20 mg/dL [facility] Creatinine 1.16 0.80 - 1.50 mg/dL [facility] Sodium 139 135 - 145 mmol/L [facility] Potassium 4.3 3.5 - 5.0 mmol/L [facility] Comment: Please note: ??Patients with WBC >100,000 may have falsely elevated Potassium levels. ??For accurate Potassium quantification in these patients send serum separator tube (gold top) for subsequent determinations. ??Contact the Clinical Chemistry Laboratory if there are any questions. Chloride 105 98 - 107 mmol/L [facility] Carbon Dioxide 21(L) 22 - 31 mmol/L [facility] Anion Gap 13 5 - 15 mmol/L [facility] Calcium 9.4 8.5 - 10.5 mg/dL [facility] Protein, Total 6.9 6.1 - 8.0 g/dL [facility] Albumin 4.4 3.2 - 5.2 g/dL [facility] Aspartate Aminotransferase 14 0 - 39 unit/L [facility] Alanine Aminotransferase 26 0 - 55 unit/L [facility] Alkaline Phosphatase 120 40 - 130 unit/L [facility] Bilirubin, Total <0.2(L) 0.2 - 1.3 mg/dL [facility] Est Glomerular Filtration Rate 73 >=60 mL/min/1. 73 m?? [facility] Comment: This patient's estimated GFR was [...] In Lab Tessie Robles MD CHEMISTRY ORDERABLES [facility] [place] [address] from Last 3 Months or Most Recently Relevant to Health Maintenance Advance Directives Documents on File Type Date Recorded Patient Dean Of Faculty Expl anation Advance Directives and Livin g Will 03/23/2017 11:39 AM * Full Code (Latest Code Status on File) Date Activated Date Inactivated Comments 03/20/2017 2:40 PM 03/21/2017 3:33 PM Question Answer Comments Does patient have capacity to make decision: Yes Care Teams Sports Betting Manager Relationship Specialty Start Date End Date Judd Pizarro MD PCP - General Family Medicine 06/20/21
--- OUTSIDE RECORDS SUMMARY | 2023-12-22 15:14 | XMS_ITS | Encounter Summary ---
Author Organization [facility] [place] [address] Care Team Providers Care Suspect Artist Supervisor Name Role Phone Judd Pizarro MD Primary Care Provider [phone] Encounter Details Date Type Department Care Team (Late st Contact Info) Description 07/19/2021 Telephone Weight and Wellness at [facility] [address] [place] [address] Mariam Reynoso V Social History [...] on filedocumented in this encounter Care Teams Suspect Artist Supervisor Relationship Specialty Start Date End Date Judd Pizarro MD PCP - General Family Medicine 06/20/21 documented as of this encounter
--- OUTSIDE RECORDS SUMMARY | 2023-12-22 15:14 | XMS_ITS | Encounter Summary ---
Author Organization [facility] [place] [address] Care Team Providers Care Dye Automation Operator Name Role Phone Garth Marroquin DO Primary Care Provider Encounter Details Date Type Department Care Team (Late st Contact Info) Description 11/21/2020 Ancillary Procedure Radiology Library at [facility] [place] [phone] Garth Marroquin DO [address] [place], [place] [address] Social History Tobacco Use Types Packs/Day Years [...] is for storage only. Garth Marroquin DO [facility] FILM LIBRARY ORD ERABLES [place], [place] documented in this encounter Visit Diagnoses Not on filedocumented in this encounter Care Teams Dye Automation Operator Relationship Specialty Start Date End Date Garth Marroquin DO [address] [facility] [place] [address] PCP - General Family Medicine 03/02/20 06/19/21 documented as of this encounter
--- OUTSIDE RECORDS SUMMARY | 2023-12-22 15:14 | XMS_ITS | Encounter Summary ---
Author Organization [facility] [place] [address] Care Team Providers Care Fund Raiser Name Role Phone Judd Pizarro MD Primary Care Provider [phone] Reason for Visit * Reason Onset Date Comments Medication Refill 01/06/2022 Encounter Details Date Type Department Care Team (Late st Contact Info) Description 01/06/2022 Refill Weight and Wellness at [address] [phone] Martina Jerome, [facility] Class 1 obesity due to excess calories [...] present documented in this encounter Care Teams Fund Raiser Relationship Specialty Start Date End Date Judd Pizarro MD PCP - General Family Medicine 06/20/21 documented as of this encounter
--- OUTSIDE RECORDS SUMMARY | 2023-12-22 15:14 | XMS_ITS | Encounter Summary ---
Author Organization [facility] Address [facility] [place] [address] Care Team Providers Care Record Keeper Name Role Phone Garth Marroquin DO Primary Care Provider [phone] Encounter Details Date Type Department Care Team (Late st Contact Info) Description 04/04/2021 Orders Only Weight and Wellness at [place] [address] [place] [phone] Tessie Robles MD [facility] [address] [address] Obesity, unspecified classification, unspecified obesity type, unspecified [...] present documented in this encounter Care Teams Record Keeper Relationship Specialty Start Date End Date Garth Marroquin DO [address] [place] [address] PCP - General Family Medicine 03/02/20 06/19/21 documented as of this encounter
--- OUTSIDE RECORDS SUMMARY | 2023-12-22 15:14 | XMS_ITS | Encounter Summary ---
Author Organization [facility] Address [facility] [place] [address] Care Team Providers Care Emanations Analysis Technician Name Role Phone Judd Pizarro MD Primary Care Provider [phone] Encounter Details Date Type Department Care Team (Late st Contact Info) Description 05/10/2022 1:05 PM EDT Ancillary Procedure Radiology Library at [facility] [place] [phone] Nic Samaniego MD [facility] [address] [place] [address] Social History Tobacco Use Types Packs/Day Years Used Date Smoking Tobacco: Every Day Cigarettes 1.5 38 Smokeless Tobacco: Never Alcohol Use Standard Drinks/Week Comments No 0 (1 standard drink = 0.6 oz pure alcohol) Formerly heavy - stopped a few years ago. [facility] Inpatient Questions Answer Date Recorded [...] CT Spine (05/10/2022 1:03 PM EDT) Narrative JASWINDER CHEW - 05/10/2022 1:03 PM EDT This exam is auto-finalizing. It's purpose is for storage only. Nic Samaniego MD IMG FILM LIBRARY ORDERABLES [place], [place] documented in this encounter Visit Diagnoses Not on filedocumented in this encounter Care Teams Emanations Analysis Technician Relationship Specialty Start Date End Date Judd Pizarro MD PCP - General Family Medicine 06/20/21 documented as of this encounter
--- OUTSIDE RECORDS SUMMARY | 2023-12-22 15:14 | XMS_ITS | Encounter Summary ---
Author Organization [facility] Address [facility] [place] [address] Care Team Providers Care Merchandise Clerk Name Role Phone Garth Marroquin DO Primary Care Provider [phone] Encounter Details Date Type Department Care Team (Late st Contact Info) Description 03/22/2021 8:45 AM EST TH Visit (TeleHealth) Weight and Wellness at [address] [address] Tessie Robles MD [facility] [place] [address] Class 1 obesity due to excess calories [...] Nutrition Change to whole wheat toast or Uzbek Muffin at breakfast. Instead of 4 eggs , have 2 eggs and peanut butter on the Uzbek muffin. Consider changing to HalfNHalf or cream [...] a general recommendation for all patients. Your electronic commerce specialist and provider will help make more specific [...] with caloric content outside this window. Your electronic commerce specialist may make further recommendations Medication management If [...] situation you may contact our office at [phone] to schedule an appointment, and we will [...] seen while via [] Video [] phone [facility] Patient [...] withneuropathy, Osteoarthritis. This is a Visit #4 [facility] visit for this 55 y.o. patient. Weight gain due to: less activity, weight gaining medications, increased intake and frequent snacking on PF Barriers: adentulous Initial visit: 09/27/20 Initial weight: 231# Initial BMI: 38.17 kg/m??. Goal weight: 165 10% loss: 210# Other goals: Improve diabetes Today's weight: 219.75, 216 Change since prior: -3.75# [facility] Team: Tessie Robles MD, Justyna Horan RD and Aguilar Lagunas, Health Wicker Worker - all pending HPI is worried about his low intake HYPOTENSION - noted on exam today, has monitor at home but has not been following. Asymptomatic. Onamlodipine, lisinopril, hctz. 24hr Dietary 3AM-10AM Coffee with Burkinan vanilla creamer 1/2 cup 8AM 4 eggs, Uzbek muffin - white with butter. 12N Salad [...] to a diff brand, cravings resumed. Pathway: [facility] PATHWAY - ADULT 09/27/2020 Obesity Medicine Activate Adult Biobank Activate PATHWAY DISCUSSION - individual Movement: [facility]: PAVAmauri 09/27/2020 How many days [...] behavioral interventions, see goals Referrals: Dietitian, Health Wicker Worker, AOM: Increase semaglutide for DM and weight [...] insulin documented in this encounter Care Teams Merchandise Clerk Relationship Specialty Start Date End Date Garth Marroquin DO [address] [place] [address] PCP - General Family Medicine 03/02/20 06/19/21 documented as of this encounter
--- OUTSIDE RECORDS SUMMARY | 2023-12-22 15:14 | XMS_ITS | Encounter Summary ---
Author Organization [facility] [place] [address] Care Team Providers Care Anatomy Teacher Name Role Phone Garth Marroquin DO Primary Care Provider [phone] Reason for Visit * Reason Onset Date Comments Appointment 04/01/2021 Encounter Details Date Type Department Care Team (Late st Contact Info) Description 04/01/2021 Telephone Weight and Wellness at [facility] [address] [place] [address] Daria Huynh Appointment Social History [...] on filedocumented in this encounter Care Teams Anatomy Teacher Relationship Specialty Start Date End Date Garth Marroquin DO [address] [place] [address] PCP - General Family Medicine 03/02/20 06/19/21 documented as of this encounter
--- OUTSIDE RECORDS SUMMARY | 2023-12-22 15:14 | XMS_ITS | Encounter Summary ---
Author Organization [facility] [place] [address] Care Team Providers Care Bonding And Composite Fabricator Name Role Phone Judd Pizarro MD Primary Care Provider [phone] Encounter Details Date Type Department Care Team (Late st Contact Info) Description 05/10/2022 Telephone [place] [phone] Vee Haerd MD [facility] [place] [address] Social History Tobacco Use Types Packs/Day Years [...] Heard MD - 05/10/2022 2:01 PM EDT [facility] Call Spoke to Dialol Priest NP regarding this patient due to [...] filedocumented in this encounter Care Teams Bonding And Composite Fabricator Relationship Specialty Start Date End Date Judd Pizarro MD PCP - General Family Medicine 06/20/21 documented as of this encounter
--- OUTSIDE RECORDS SUMMARY | 2023-12-22 15:14 | XMS_ITS | Encounter Summary ---
Author Organization [facility] Address [address] [place] [address] Care Team Providers Care Building Equipment Inspector Name Role Phone Unavailable Primary Care Provider Unavailabl e Encounter Details Date Type Department Care Team (Late st Contact Info) Description 03/13/2002 Results Only [facility] - Maple conversion [address] [place] [address] Zhanna Ho MD [address] [place] [phone] Social History Tobacco Use Types Packs/Day [...] ? MANNIE RODRIGUEZ ? Accession #: ? [id number] : ? 1965 (Age: 36) ??M ?Collect Date: ? 03/13/2002 Location: ? [facility] ? Receive Date: ? 03/15/2002 Provider: ? ZHANNA HO MD Copy to: ?LITZY WILSON TOW MOTOR OPERATOR ? CYTOLOGIC DIAGNOSIS: ? Urine, voided, cytologic material: - No malignant cells identified. ??See comment. ? COMMENT: ? The specimen is overall of very low cellularity. ??There are rare markedly degenerated but benign appearing transitional cells present. ??(Dr. Faith)/[facility] Document reviewed and electronically signed by: [...] Ho MD PATHOLOGY ORDERABLES [facility] [address] [place] [address] documented in this encounter Visit Diagnoses Not on filedocumented in this encounter
--- OUTSIDE RECORDS SUMMARY | 2023-12-22 15:14 | XMS_ITS | Encounter Summary ---
[place] [address] Care Team Providers Care Window Dresser Name Role Phone Garth Marroquin DO Primary Care Provider [phone] Reason for Visit * Reason Onset Date Comments Appointment 11/14/2020 Encounter Details Date Type Department Care Team (Late st Contact Info) Description 11/14/2020 Telephone Weight and Wellness at [facility] [address] [place] [address] Trini Mcduffie Appointment Social History [...] on filedocumented in this encounter Care Teams Window Dresser Relationship Specialty Start Date End Date Garth Marroquin DO [address] [place] [address] PCP - General Family Medicine 03/02/20 06/19/21 documented as of this encounter
--- OUTSIDE RECORDS SUMMARY | 2023-12-22 15:14 | XMS_ITS | Encounter Summary ---
Author Organization [facility] Address [facility] [place] [address] Care Team Providers Care Hardwood Floor Installation Helper Name Role Phone Garth Marroquin DO Primary Care Provider [phone] Encounter Details Date Type Department Care Team (Late st Contact Info) Description 11/08/2020 Telephone Weight and Wellness at [facility] [address] [place] [address] [facility] [place] [address] Social History Tobacco Use Types Packs/Day Years [...] on filedocumented in this encounter Care Teams Hardwood Floor Installation Helper Relationship Specialty Start Date End Date Garth Marroquin DO [address] [place] [address] PCP - General Family Medicine 03/02/20 06/19/21 documented as of this encounter
--- OUTSIDE RECORDS SUMMARY | 2023-12-22 15:14 | XMS_ITS | Encounter Summary ---
Author Organization [facility] [place] [address] Care Team Providers Care Data Abstractor Name Role Phone Garth Marroquin DO Primary Care Provider Encounter Details Date Type Department Care Team (Late st Contact Info) Description 12/27/2020 Telephone Weight and Wellness at [facility] [address] [place] [address] Emilie Galvan, RN Social History [...] filedocumented in this encounter Care Teams Data Abstractor Relationship Specialty Start Date End Date Garth Marroquin DO [address] [place] [address] PCP - General Family Medicine 03/02/20 06/19/21 documented as of this encounter
--- OUTSIDE RECORDS SUMMARY | 2023-12-22 15:14 | XMS_ITS | Encounter Summary ---
Author Organization [facility] [place] [address] Care Team Providers Care Systems Specialist Name Role Phone Garth Marroquin DO Primary Care Provider [phone] Encounter Details Date Type Department Care Team (Late st Contact Info) Description 05/07/2021 Telephone Sleep Center at [facility] [address] [place] [address] Emilie Galvan, RN Social History Tobacco Use [...] on filedocumented in this encounter Care Teams Systems Specialist Relationship Specialty Start Date End Date Garth Marroquin DO [address] [place] [address] PCP - General Family Medicine 03/02/20 06/19/21 documented as of this encounter
--- OUTSIDE RECORDS SUMMARY | 2023-12-22 15:14 | XMS_ITS | Encounter Summary ---
Author Organization [facility] Address [facility] [place] [address] Care Team Providers Care Outside Medical Sales Representative Name Role Phone Judd Pizarro MD Primary Care Provider [phone] Reason for Visit * Reason Comments Hospital Transfer Back Pain Encounter Details Date Type Department Care Team (Late st Contact Info) Description 05/10/2022 4:32 PM EDT - 05/10/2022 10:25 PM EDT [place] [address] Ann Marie Newton MD [facility] [place] [address] Meir Sutherland MD [facility] [place] [address] Low back pain, non-specific Discharge Disposition: Home Social History Tobacco Use Types Packs/Day Years Used Date Smoking Tobacco: Every Day Cigarettes 1.5 38 Smokeless Tobacco: Never Alcohol Use Standard Drinks/Week Comments No 0 (1 standard drink = 0.6 oz pure alcohol) Formerly heavy - stopped a few years ago. [facility] Inpatient Questions Answer Date Recorded Does Anyone [...] sent through Care Everywhere. * Back Pain (Ugandan) * Back: Preventing Injuries (Ugandan) documented in this encounter Medications at Time [...] mg by mouth daily. 02/17/2022 HYDROcodone-acetamino phen ([place]) 5-325 mg Tablet TAKE 1 TABLET BY [...] who have questions please contact the health home health caregiver that requested your imaging first. Electronically signed by: Judd Moreno MD, [facility] ([phone]), at 05/10/2022 6:59 PM U/A: RBC 5 [...] incontinence last night. He was sent from [facility] for and MRI to rule out caude equina. He presented to the emergency department at [facility] with concerns of urinary incontinence He received [...] who have questions please contact the health home health caregiver that requested your imaging first. Electronically signed by: Judd Moreno MD, [facility] ([phone]), at 05/10/2022 6:59 PM Spine recommends medrol dose pack. Discharge home. F/u PCP. No surgical intervention indicated at this tie. Assessment/plan: Low back pain Urinary incontinence D/c home F/u PCP Rx Medrol dose pack Return precautions Ann Marie Newton MD 05/10/222034 * Garth Dalal RN - 05/10/2022 3:51 PM EDT Sending Facility: [facility] Reason for Transfer: rule out caudia equina Report: Patient is an alert and oriented 56-year-old male who presented to the emergency department at [facility] with concerns of urinary incontinence. Patient had seen his primary care provider 2 to 3 weeks prior for some lower back pain. Patient had no new trauma or injury to provoke this urinary incontinence. Patient is being transferred to [facility] emergency department for an [...] Yes/No STROKE ALERT: Last Known Well Time: [place] Stroke Scale: + / - FAST-ED Score: TRAUMA ALERT: T9 Alert Consult Lowest Documented BP Transporting Service: [facility] Time of Departure: ETA: 1620 documented [...] 10 mg by mouth daily. ??? HYDROcodone-acetaminophen ([place]) 5-325 mg Tablet TAKE 1 TABLET BY [...] Urine 5(H) 0 - 3 /HPF [facility] WBC, Urine 0 0 - 3 /HPF [facility] Urine 05/10/2022 9:12 PM EDT 05/10/2022 9:16 PM EDT Narrative Resulting Agency Comment Spec In Lab Danish Arana MD URINE ORDERABLES [facility] [place] [address] * (ABNORMAL) Urinalysis with reflex Culture (05/10/2022 9:12 PM EDT) Glucose, Urine Dipstick Negative Negative mg/dL [facility] Protein, Urine Dipstick Negative Negative mg/dL [facility] Bilirubin, Urine Dipstick Negative Negative mg/dL [facility] Comment: Clinical correlation required for positive Urine Bilirubin results as false positive may occur with some drugs and drug related products. If a false positive is suspected a serum total bilirubin should be considered if clinically indicated. Urobilinogen, Urine Dipstick Normal Normal mg/dL [facility] pH, Urn (dipstick) 6.5 5.0 - 8.0 [facility] Blood, Urine Dipstick Small(A) Negative mg/dL [facility] Ketone, Urine Dipstick Negative Negative mg/dL [facility] Nitrite, Urine Dipstick Negative Negative [facility] Leukocytes, Urine Dipstick Negative Negative mcL [facility] Appearance, Urine Dipstick Clear Clear [facility] Specific Point Urine Automated 1.013 1.005 - 1.030 [facility] Color, Urine Dipstick Yellow Yellow [facility] Reflex to Culture No [facility] Urine 05/10/2022 9:12 PM EDT 05/10/2022 9:16 PM EDT Narrative Resulting Agency Comment Spec In Lab Ann Marie Newton MD URINE ORDERABLES Performing Organization Address City/State/[facility] Co de Phone Number [facility] [place] [address] * MRI Lumbar Spine wo Contrast (Generic) [...] who have questions please contact the health home health caregiver that requested your imaging first. ? Electronically signed by: Judd Moreno MD, [facility] ([phone]), at 05/10/2022 6:59 PM Narrative 05/10/2022 6:59 PM EDT EXAMINATION: MRI LUMBAR SPINE WO CONTRAST (GENERIC) CLINICAL HISTORY: Low back pain, cauda equina syndrome suspected Low back pain, cauda equina syndrome suspected TECHNIQUE: MRI of the lumbar spine performed without intravenous contrast administration. COMPARISON: CT lumbar spine dated 05/10/2022 from [facility] FINDINGS: Normal alignment of the 5 lumbar [...] COMPARISON: CT lumbar spine dated 05/10/2022 from [facility] FINDINGS: Normal alignment of the 5 lumbar type vertebral bodies. There is minimal retrolisthesis of L5 on S1 similar to CT examination. Vertebral bodies are normal in height. There is anterior endplateproliferative and reactive changes T11-12 and T12-L1 and to lesser extent L1-2. Disc space narrowing and decreased signal intensity on T2 sequence [id number]. The remaining intervertebral disc spaces are normal [...] the clinical situation (Reference- Vishnuvik Et Al, [id number]). Findings: (Prevalence in patients without low back [...] patients who have questions please contactthe health home health caregiver that requested your imaging first. Ann Marie [...] RN) documented in this encounter Care Teams Outside Medical Sales Representative Relationship Specialty Start Date End Date Judd Pizarro MD PCP - General Family Medicine 06/20/21 documented as of this encounter
--- OUTSIDE RECORDS SUMMARY | 2023-12-22 15:14 | XMS_ITS | Encounter Summary ---
Author Organization [facility] Address [facility] [place] [address] Care Team Providers Care Library Manager Name Role Phone Judd Pizarro MD Primary Care Provider [phone] Reason for Visit * Reason Comments Follow-up Weight management Encounter Details Date Type Department Care Team ([facility] st Contact Info) Description 02/20/2022 4:30 PM EST Office Visit Weight and Wellness at [address] [phone] Tessie Robles MD [facility] [address] [address] Class 2 obesity with body mass index [...] Robles MD - 02/20/2022 4:30 PM EST [facility] [place] Patient Name: Pavan Padilla Date of : [...] withneuropathy, Osteoarthritis. This is a Visit #4 [facility] visit for this 56 y.o. patient. Weight gain due to: less activity, weight gaining medications, increased intake and [facility] Bar[facility]: adentulous Initial visit: 09/27/20 Initial weight: 231# Initial BMI: 38.17 kg/m??. Goal weight: 165 10% loss: 210# Other goals: Improve diabetes Today's weight: 233 Change since prior: + 16# [facility] Team: Tessie Robles MD, Nolvia Saleh RD and [place] Lagunas, Health Instructor Private - all pending HPI Patient here today [...] 141 09/27/2020 Lab Results Component Value Date [id number] 09/27/2020 25-OH Vit D Total (ng/mL) [...] PM EST) LDL Cholesterol, Direct 52 mg/dL [facility] Comment: Lowest Risk: <100 mg/dL Lower Risk: 100-129 mg/dL Borderline High Risk: 130-159 mg/dL High Risk: 160-189 mg/dL Very High Risk: >bq=485 mg/dL Blood 02/20/2022 5:47 PM EST 02/20/2022 6:00 PM EST Narrative Resulting Agency Comment Spec In Lab Tessie Robles [place] [address] * (ABNORMAL) Differential, Automated (02/20/2022 5:47 PM EST) Neutrophil % 52.2 % [facility] Neutrophil Absolute 5.61 1.70 - 6.10 x10(3)/mc L [facility] Lymph % 33.6 % [facility] Lymphocytes Abs 3.6(H) 0.9 - 3.2 x10(3)/mc L [facility] Monocyte % 8.4 % [facility] Monocyte Abs 0.9 0.3 - 0.9 x10(3)/ L [facility] Eos % 2.4 % [facility] Eosinophils Abs 0.3 0.0 - 0.4 x10(3)/[facility] Basophil % 1.3 % [facility] Baso Absolute 0.1 0.0 - 0.1 x10(3)/ L [facility] Immature Gran % 2.10 % [facility] Comment: Immature granulocytes(IG's)percentage and absolute count will include metamyelocytes, myelocytes, and promyelocytes. Blood smears from CBCs yielding IG's will be scanned manually for concordance. If this scan disagrees with the automated IG or if promyelocytes are noted, a manual differential will be performed. Immature Gran Absolute 0.22(H) 0.00 - 0.04 x10(3)/ L [facility] Blood 02/20/2022 5:47 PM EST 02/20/2022 5:54 PM EST Narrative Resulting Agency Comment Spec In Lab Tessie Robles MD HEMATOLOGY ORDERABLE S Performing Organization Address City/[facility]/[place] [address] * (ABNORMAL) Hemogram (02/20/2022 5:47 PM EST) White Blood Cell 10.7(H) 4.0 - 9.5 x10(3)/mc L [facility] Red Blood Cell 5.71(H) 4.58 - 5.54 x10(6)/mc L [facility] Hemoglobin 17.4(H) 13.7 - 16.5 g/dL [facility] Hematocrit 50.7(H) 40.5 - 48.5 % [facility] Mean Cell Volume 88.8 82.9 - 93.1 fL [facility] Mean Cell Hemoglobin 30.5 27.5 - 32.1 pg [facility] Mean Cell Hemoglobin Concentration 34.3 32.0 - 35.7 g/dL [facility] Platelet 220 145 - 357 x10(3)/mc L [facility] RDW Standard Deviation 41.6 36.0 - 45.0 fL [facility] RDW coefficient of variation 12.8 11.4 - 13.8 % [facility] Mean Platelet Volume 10.7 7.6 - 12.9 fL [facility] NRBC% auto 0.0 % [facility] NRBC Absolute 0.000 0.000 - 0.000 x10(3)/mc L [facility] Blood 02/20/2022 5:47 PM EST 02/20/2022 5:54 PM EST Narrative Resulting Agency Comment Spec In Lab Tessie Robles MD HEMATOLOGY ORDERABLE S Performing Organization Address City/[facility] Co de Phone Number [facility] [address] * Biorepository Request (02/20/2022 5:47 PM EST) Pathologist [facility] Biorepository Hold Sample in lab [facility] Blood 02/20/2022 5:47 PM EST 02/21/2022 11:01 AM EST Narrative Resulting Agency Comment Spec In Lab Tessie Robles MD MOLECULAR ORDERABLES Performing Organization Address City/[facility]/ZIP Co de Phone Number [facility] [address] * Lipid Panel (Reflex Direct LDL) (02/20/2022 5:47 PM EST) Pathologist [facility] Cholesterol, Total 134 mg/dL [facility] Comment: Lower Risk: <200 mg/dL Average Risk: 200-239 mg/dL Higher Risk: >kb=319 mg/dL Triglyceride 536 mg/dL [facility] Comment: Average Risk/Lower Risk: <150 mg/dL Borderline High Risk: 150-199 mg/dL High Risk: 200-499 mg/dL Very High Risk: >te=768 mg/dL HDL Cholesterol 25 mg/dL [facility] Comment: Males: ?? Higher Risk: <40 mg/dL Females: ?? Higher Risk: <50 mg/dL LDL Cholesterol Not Calculated [facility] Comment: Calculated LDL value is not valid for triglycerides greater than 400 mg/dl. Lowest Risk: <100 mg/dL Lower Risk: 100-129 mg/dL Borderline High Risk: 130-159 mg/dL High Risk: 160-189 mg/dL Very High Risk: >tn=140 mg/dL Cholesterol/HDL Ratio 5.4 ratio [facility] Lipid Interpretation See Note [facility] Comment: Lipid management should be guided by a patient? s ASCVD risk, goals and preferences. ACC/AHA Guidelines recommend high intensity statin if clinical ASCVD or LDL greater than or equal to 190 mg/dL. http://Zapstitch.com/AWW-KXK-Uimcgrotk Adults aged 40-75 with LDL 70-189 mg/dL should have their 10 year ASCVD risk estimated with the ACC/AHA ASCVD risk melter loader http://tools.acc.org/PWQTJ-Hxdg-Bezxydicn/ Statin should be discussed if risk greater [...] In Lab Tessie Robles MD CHEMISTRY ORDERABLES [facility] [address] * (ABNORMAL) Hemoglobin A1c (02/20/2022 5:47 PM EST) Hemoglobin A1c 6.2(H) 4.3 - 5.6 % [facility] Comment: Reference Range: 4.3 - 5.6% [...] Mellitus, Diabetes Care 2013; 36: Suppl. 1, M12-08 Estimated Average Glucose 130 mg/dL [facility] Comment: eAG equivalents for HbA1c percentages: [...] into estimated average glucose values. ??Diabetes Care 2008:31(8):0046-8990. Blood 02/20/2022 5:47 PM EST 02/20/2022 5:54 PM EST Narrative Resulting Agency Comment Spec In Lab Tessie Robles MD CHEMISTRY ORDERABLES [facility] [place] [address] * (ABNORMAL) Comprehensive metabolic panel (non-fasting) (02/20/2022 5:47 PM EST) Glucose 134 65 - 199 mg/dL [facility] Comment:Diabetes: >=200 mg/d L plus symptoms Blood Urea Nitrogen 16 10 - 20 mg/dL [facility] Creatinine 1.16 0.80 - 1.50 mg/dL [facility] Sodium 139 135 - 145 mmol/L [facility] Potassium 4.3 3.5 - 5.0 mmol/L [facility] Comment: Please note: ??Patients with WBC >100,000 may have falsely elevated Potassium levels. ??For accurate Potassium quantification in these patients send serum separator tube (gold top) for subsequent determinations. ??Contact the Clinical Chemistry Laboratory if there are any questions. Chloride 105 98 - 107 mmol/L [facility] Carbon Dioxide 21(L) 22 - 31 mmol/L [facility] Anion Gap 13 5 - 15 mmol/L [facility] Calcium 9.4 8.5 - 10.5 mg/dL [facility] Protein, Total 6.9 6.1 - 8.0 g/dL [facility] Albumin 4.4 3.2 - 5.2 g/dL [facility] Aspartate Aminotransferase 14 0 - 39 unit/L [facility] Alanine Aminotransferase 26 0 - 55 unit/L [facility] Alkaline Phosphatase 120 40 - 130 unit/L [facility] Bilirubin, Total <0.2(L) 0.2 - 1.3 mg/dL [facility] Est Glomerular Filtration Rate 73 >=60 mL/min/1. 73 m?? [facility] Comment: This patient's estimated GFR was [...] In Lab Tessie Robles MD CHEMISTRY ORDERABLES [facility] [address] documented in this encounter Visit Diagnoses Diagnosis Class 2 obesity with body mass index (BMI) of 38.0 to 38.9 in adult, unspecified obesity type, unspecified whether serious comorbidity present- Primary SOB (shortness of breath) Shortness of breath Weight gain Abnormal weight gain Type 2 diabetes mellitus with diabetic neuropathy, without long-term current use of insulin documented in this encounter Care Teams Library Manager Relationship Specialty Start Date End Date Judd Pizarro MD PCP - General Family Medicine 06/20/21 documented as of this encounter
--- OUTSIDE RECORDS SUMMARY | 2023-12-22 15:14 | XMS_ITS | Encounter Summary ---
Author Organization [facility] [place] [place] [address] Care Team Providers Care Respiratory Therapist Name Role Phone Garth Marroquin DO Primary Care Provider [phone] Encounter Details Date Type Department Care Team (Late st Contact Info) Description 12/27/2020 Telephone Weight and Wellness at [facility] [address] [place] [address] Emilie Galvan, RN Social History [...] on filedocumented in this encounter Care Teams Respiratory Therapist Relationship Specialty Start Date End Date Garth Marroquin DO [address] [place] [address] PCP - General Family Medicine 03/02/20 06/19/21 documented as of this encounter
--- OUTSIDE RECORDS SUMMARY | 2023-12-22 15:14 | XMS_ITS | Encounter Summary ---
Author Organization [facility] Address [facility] [place] [address] Care Team Providers Care Sales Representative Health Insurance Name Role Phone Garth Marroquin DO Primary Care Provider [phone] Encounter Details Date Type Department Care Team (Late st Contact Info) Description 12/21/2020 9:00 AM EDT Office [place] [address] Mary Alice Nesbitt MD [facility] [place] [address] Tobacco abuse; Personal history of nicotine dependence [...] from the original note were not included. [facility] Section of Pulmonary and Critical Care Medicine Outpatient Consultation Date of Encounter: 12/21/2020 Referring Provider: No referring provider defined for this encounter. Reason for Evaluation: Tobacco use/lung nodule History of Present Illness: Mr. Padilla is a 55-year-old male who presents today for a follow-up visit. After his last visit with mn, he had a CT chest for lung [...] number below. Electronically signed by: Salud Beltran [facility] ([phone]), at 11/22/2018 9:[address] chest 01/05: [...] screening CT chest in November 2020 at [facility], results of which are unavailable to me [...] his lung cancer screening with me at [facility]. 2. Tobacco abuse ?? The [...] or questions arise. Mary Alice Nesbitt MD Piano ProfessorProgram Research Specialist Pulmonary and Critical [place] [address] documented in this encounter Plan of Treatment [...] health documented in this encounter Care Teams Sales Representative Health Insurance Relationship Specialty Start Date End Date Garth Marroquin DO [address] [place] [address] PCP - General Family Medicine 03/02/20 06/19/21 documented as of this encounter
--- OUTSIDE RECORDS SUMMARY | 2023-12-22 15:14 | XMS_ITS | Encounter Summary ---
Author Organization [facility] [place] [address] Care Team Providers Care Census Taker Name Role Phone Judd Pizarro MD Primary Care Provider [phone] Reason for Visit * Reason Onset Date Comments Appointment 05/20/2021 Encounter Details Date Type Department Care Team (Late st Contact Info) Description 05/20/2021 Telephone Weight and Wellness at [facility] [address] [place] [address] Daria Huynh Appointment Social History [...] on filedocumented in this encounter Care Teams Census Taker Relationship Specialty Start Date End Date Judd Pizarro MD PCP - General Family Medicine 06/20/21 documented as of this encounter
--- OUTSIDE RECORDS SUMMARY | 2023-12-22 15:14 | XMS_ITS | Encounter Summary ---
Author Organization [facility] [place] [address] Care Team Providers Care Rehabilitation Inspector Name Role Phone Garth Marroquin DO Primary Care Provider [phone] Reason for Visit * Reason Onset Date Comments Medication Refill 01/16/2021 Encounter Details Date Type Department Care Team (Late st Contact Info) Description 01/16/2021 Refill Weight and Wellness at [address] [phone] Martina Jerome, HRIS ANALYST Class 2 obesity due to excess calories [...] insulin documented in this encounter Care Teams Rehabilitation Inspector Relationship Specialty Start Date End Date Garth Marroquin DO [facility] [place] [place] [address] PCP - General Family Medicine 03/02/20 06/19/21 documented as of this encounter
--- OUTSIDE RECORDS SUMMARY | 2023-12-22 15:14 | XMS_ITS | Encounter Summary ---
Author Organization [facility] Address [facility] [place] [address] Care Team Providers Care Nuclear Physicist Name Role Phone Judd Pizarro MD Primary Care Provider [phone] Reason for Visit * Reason Comments Medication Refill Encounter Details Date Type Department Care Team (Late st Contact Info) Description 01/22/2021 Refill Weight and Wellness at [address] [address] Tessie Robles MD [facility] [place] [address] Class 2 obesity due to excess calories [...] insulin documented in this encounter Care Teams Nuclear Physicist Relationship Specialty Start Date End Date Judd Pizarro MD PCP - General Family Medicine 06/20/21 documented as of this encounter
--- OUTSIDE RECORDS SUMMARY | 2023-12-22 15:14 | XMS_ITS | Encounter Summary ---
Author Organization [facility] [place] [address] Care Team Providers Care Carcass Washer Name Role Phone Judd Pizarro MD Primary Care Provider [phone] Encounter Details Date Type Department Care Team (Late st Contact Info) Description 06/25/2021 External Results Weight and Wellness at [facility] [address] [place] [phone] Emilie Galvan, RN Social History Tobacco Use [...] Procedure Name Priority Date/Time Associated Diagnosis Comments [facility] EXTERNAL RESULT PANEL Routine 04/17/2021 HEMOGLOBIN A1C Routine 03/08/2021 documented in this encounter Results * (ABNORMAL) [facility] External Results (04/17/2021) Glucose Fasting 87 Blood [...] on filedocumented in this encounter Care Teams Carcass Washer Relationship Specialty Start Date End Date Judd Pizarro MD PCP - General Family Medicine 06/20/21 documented as of this encounter
--- OUTSIDE RECORDS SUMMARY | 2023-12-22 15:14 | XMS_ITS | Encounter Summary ---
Author Organization [facility] Address [facility] [place] [address] Care Team Providers Care Traffic Control Signaler Name Role Phone Garth Marroquin DO Primary Care Provider [phone] Reason for Visit * Reason Comments Follow-up weight managment Encounter Details Date Type Department Care Team (Late st Contact Info) Description 10/26/2020 12:00 PM EDT Office Visit Weight and Wellness at [address] [phone] Tessie Robles MD [facility] DR HALIMA [place] [address] Class 2 obesity due to excess calories [...] a general recommendation for all patients. Your veterans' counselor and provider will help make more specific [...] increasing mindfulness throughout the day. Your health employment coach is well-equipped to guide you to find something to look forward to everyday. Eating behaviors: many people benefit from restricting the hours in which they eat. You can choose an eating window of 8-12 hours to start. Make a pact with yourself that you will not take in anything with caloric content outside this window. Your veterans' counselor may make further recommendations documented in this encounter Progress Notes * Tessie Robles MD - 10/26/2020 12:00 PM EDTSummary: Visit #2 [facility] Patient Name: Pavan [...] Osteoarthritis. This is a 1 month folllow-up [facility] visit for this 55 y.o. patient. Weight gain due to: less activity, weight gaining medications, increased intake and frequent snacking on PF Barriers: adentulous Initial visit: 09/27/20 Initial weight: 231# Initial BMI: 38.17 kg/m??. Goal weight: 165 10% loss: 210# Other goals: Improve diabetes Today's weight: 231 Change since prior: 0 [facility] Team: Tessie Robles MD, Justyna Horan RD and Aguilar Lagunas, Health Casino Cage Cashier - all pending HPI Moving - busy [...] in the AM - 2-3 pots adds [place] Islander Vanilla Creamer - starts 4AM Nothing to eat until 12noon Noon: [place] on white, lettuce, tomato, meat, cheese, mustard; lightly salted potato chips, iced tea -sweetened and lemon/store bought Snack: potato chips [id number]: TopRamen if Naty is not home (four [...] interim records including notes and labs. Pathway: [facility] PATHWAY - ADULT 09/27/2020 Obesity Medicine [...] skips meals []? Night eating ? Movement: [facility]: PAVS 09/27/2020 How many days during [...] 141 09/27/2020 Lab Results Component Value Date [id number] 09/27/2020 25-OH Vit D Total (ng/mL) [...] behavioral interventions, see goals Referrals: Dietitian, Health Casino Cage Cashier, AOM: Continue semaglutide for DM and weight [...] 15. 12 min chart review 30 min [id number] Visit time 5 min Documentation time I [...] counseling documented in this encounter Care Teams Traffic Control Signaler Relationship Specialty Start Date End Date Garth Marroquin DO [address] [place] [address] PCP - General Family Medicine 03/02/20 06/19/21 documented as of this encounter
--- OUTSIDE RECORDS SUMMARY | 2023-12-22 15:14 | XMS_ITS | Encounter Summary ---
Author Organization [facility] [place] [address] Care Team Providers Care Altitude Chamber Technician Name Role Phone Garth Marroquin DO Primary Care Provider [phone] Encounter Details Date Type Department Care Team (Late st Contact Info) Description 12/21/2020 Telephone Weight and Wellness at [facility] [address] [place] [address] Martina Jerome CMA Social History [...] on filedocumented in this encounter Care Teams Altitude Chamber Technician Relationship Specialty Start Date End Date Garth Marroquin DO [address] [place] [address] PCP - General Family Medicine 03/02/20 06/19/21 documented as of this encounter
--- OUTSIDE RECORDS SUMMARY | 2023-12-22 15:14 | XMS_ITS | Encounter Summary ---
Author Organization [facility] [place] [address] Care Team Providers Care Boat Laborer Name Role Phone Garth Marroquin DO Primary Care Provider [phone] Encounter Details Date Type Department Care Team (Late st Contact Info) Description 04/30/2021 Telephone Weight and Wellness at [facility] [address] [place] [address] Emilie Galvan, RN Social History [...] on filedocumented in this encounter Care Teams Boat Laborer Relationship Specialty Start Date End Date Garth Marroquin DO [address] [place] [address] PCP - General Family Medicine 03/02/20 06/19/21 documented as of this encounter
--- OUTSIDE RECORDS SUMMARY | 2023-12-22 15:14 | XMS_ITS | Encounter Summary ---
Author Organization [facility] Address [facility] [place] [address] Care Team Providers Care Brick Tester Name Role Phone Judd Pizarro MD Primary Care Provider [phone] Encounter Details Date Type Department Care Team (Latest Contact Info) Description 07/04/2021 10:30 AM EDT TH Visit (TeleHealth) Weight and Wellness at [address] [address] Nolvia Saleh, RD [facility] [place] [address] Adult BMI 34.0-34.9 kg/sq m Social History [...] past visits. Please reach out with a Line[employer] message if you have any questions or [...] was at home at the following address: [address] [place] [address] Weight Today: 212 at the doctor the [...] crystal light or other sugar-free additive [] [place] (natural or artificial flavoring or plain only) [...] Nutrition Change to whole wheat toast or Vincentian Muffin at breakfast. Instead of 4 eggs , have 2 eggs and peanut butter on the Vincentian muffin. When looking for a whole grain [...] Nutrition Change to whole wheat toast or Vincentian Muffin at breakfast. Instead of 4 eggs , have 2 eggs and peanut butter on the Vincentian muffin. When looking for a whole grain [...] Nolvia Saleh RD [facility] 30 minutes were spent in visit today, [...] adult documented in this encounter Care Teams Brick Tester Relationship Specialty Start Date End Date Judd Pizarro MD PCP - General Family Medicine 06/20/21 documented as of this encounter
--- OUTSIDE RECORDS SUMMARY | 2023-12-22 15:14 | XMS_ITS | Encounter Summary ---
Author Organization Replaced By [facility] Address [facility] [place] [address] Care Team Providers Care Electronics System Mechanic Name Role Phone Judd Pizarro MD Primary Care Provider [phone] Encounter Details Date Type Department Care Team (Late st Contact Info) Description 09/19/2021 Orders Only Weight and Wellness at [facility] [address] [place] [phone] Tessie Robles MD [facility] DR HALIMA [place] [address] Obesity, unspecified classification, unspecified obesity type, unspecified [...] * Biorepository Request (02/20/2022 5:47 PM EST) [facility] Biorepository Hold Sample in lab [facility] Blood 02/20/2022 5:47 PM EST 02/21/2022 11:01 AM EST Narrative Resulting Agency Comment Spec In Lab Tessie Robles [place] [address] documented in this encounter Visit Diagnoses Diagnosis Obesity, unspecified classification, unspecified obesity type, unspecified whether serious comorbidity present documented in this encounter Care Teams Electronics System Mechanic Relationship Specialty Start Date End Date Judd Pizarro MD PCP - General Family Medicine 06/20/21 documented as of this encounter
--- OUTSIDE RECORDS SUMMARY | 2023-12-22 15:14 | XMS_ITS | Encounter Summary ---
Author Organization [facility] Address [facility] [place] [address] Care Team Providers Care Retail Wireless Associate Name Role Phone Judd Pizarro MD Primary Care Provider [phone] Reason for Visit * Reason Comments Follow-up Weight managment Encounter Details Date Type Department Care Team (Late st Contact Info) Description 06/20/2021 9:15 AM EDT Office Visit Weight and Wellness at [address] [phone] Tessie Robles MD [facility] DR [place] [address] Class 1 obesity due to excess calories [...] 06/20/2021 9:[address] [facility] - [facility]. I will try to get the results [...] [] phone [facility] Patient Name: Pavan Padilla Date of : [...] withneuropathy, Osteoarthritis. This is a Visit #4 [facility] visit for this 55 y.o. patient. Weight gain due to: less activity, weight gaining medications, increased intake and frequent snacking on UHPF Barriers: adentulous Initial visit: 09/27/20 Initial weight: 231# Initial BMI: 38.17 kg/m??. Goal weight: 165 10% loss: 210# Other goals: Improve diabetes Today's weight: 217 Change since prior: -2.75# [facility] Team: Tessie Robles MD, Nolvia Saleh RD and Aguilar Lagunas, Health Shore Worker - all pending HPI HYPOTENSION - noted [...] behavioral interventions, see goals Referrals: Dietitian, Health Shore Worker, AOM: Increase semaglutide for DM and [...] present documented in this encounter Care Teams Retail Wireless Associate Relationship Specialty Start Date End Date Judd Pizarro MD PCP - General Family Medicine 06/20/21 documented as of this encounter
--- OUTSIDE RECORDS SUMMARY | 2023-12-22 15:14 | XMS_ITS | Encounter Summary ---
Author Organization [facility] Address One [facility] [place] [address] Care Team Providers Care Pony Ride Operator Name Role Phone Judd Pizarro MD Primary Care Provider [phone] Encounter Details Date Type Department Care Team [...] on filedocumented in this encounter Care Teams Pony Ride Operator Relationship Specialty Start Date End Date Judd Pizarro MD PCP - General Family Medicine 06/20/21 documented as of this encounter
--- OUTSIDE RECORDS SUMMARY | 2023-12-22 15:14 | XMS_ITS | Encounter Summary ---
Author Organization [facility] [place] [address] Care Team Providers Care Volunteer Recruitment Coordinator Name Role Phone Garth Marroquin DO Primary Care Provider [phone] Encounter Details Date Type Department Care Team (Late st Contact Info) Description 11/28/2020 Ancillary Procedure Radiology Library [place] [facility] [place] [phone] Mary Alice Nesbitt MD [facility] [place] [address] Social History Tobacco Use Types Packs/Day Years [...] DX Chest (11/28/2020 12:00 AM EDT) Narrative JASWINDER CHEW - 12/21/2020 4:12 PM EDT This exam is auto-finalizing. It's purpose is for storage only. Mary Alice Nesbitt MD IMG FILM LIBRARY ORD ERABLES [place], [place] documented in this encounter Visit Diagnoses Not on filedocumented in this encounter Care Teams Volunteer Recruitment Coordinator Relationship Specialty Start Date End Date Garth Marroquin DO [address] [facility] [place] [address] PCP - General Family Medicine 03/02/20 06/19/21 documented as of this encounter
--- OUTSIDE RECORDS SUMMARY | 2023-12-22 15:14 | XMS_ITS | Encounter Summary ---
Author Organization [facility] Address [facility] [place] [address] Care Team Providers Care Lobster Catcher Name Role Phone Garth Marroquin DO Primary Care Provider Reason for Visit * Reason Comments Follow-up weight managment Encounter Details Date Type Department Care Team (Late st Contact Info) Description 12/20/2020 3:30 PM EDT Office Visit Weight and Wellness at [address] [phone] Tessie Robles MD [facility] [place] [address] Class 2 obesity due to excess calories [...] this encounter Patient Instructions * Patient Instructions* eTssie Robles MD - 12/20/2020 3:30 PM EDT Stop taking amlodipine. I will update your PCP. Start checking blood pressures daily - alternate times of day. I will ask Emilie to check in on your BP mid next week. Continue Ozempic shots 0.5mg See our dietitian, next avaiable. documented in this encounter Progress Notes * Tessie Robles MD - 12/20/2020 3:30 PM EDT [facility] [place] Patient Name: Pavan Padilla Date of : [...] Diabetes withneuropathy, Osteoarthritis. This is a folllow-up [facility] visit for this 55 y.o. patient. Weight gain due to: less activity, weight gaining medications, increased intake and [facility] Barriers: adentulous Initial visit: 09/27/20 Initial weight: 231# Initial BMI: 38.17 kg/m??. Goal weight: 165 10% loss: 210# Other goals: Improve diabetes Today's weight: 219.75 Change since prior: -12# [facility] Team: Tessie Robles MD, Justyna Horan RD and Aguilar Lagunas, Health Superintendent Plant - all pending HPI is worried about [...] to a diff brand, cravings resumed. Pathway: [facility] PATHWAY - ADULT 09/27/2020 Obesity Medicine [...] skips meals []? Night eating ? Movement: [facility]: PAVS 09/27/2020 How many days during [...] behavioral interventions, see goals Referrals: Dietitian, Health Superintendent Plant, AOM: Continue semaglutide for DM and weight [...] type documented in this encounter Care Teams Lobster Catcher Relationship Specialty Start Date End Date Garth Marroquin DO [address] [place] [address] PCP - General Family Medicine 03/02/20 06/19/21 documented as of this encounter
--- OUTSIDE RECORDS SUMMARY | 2023-12-22 15:14 | XMS_ITS | Encounter Summary ---
Author Organization [facility] [place] [address] Care Team Providers Care Certified Technician Name Role Phone Judd Pizarro MD Primary Care Provider [phone] Encounter Details Date Type Department Care Team [...] on filedocumented in this encounter Care Teams Certified Technician Relationship Specialty Start Date End Date Judd Pizarro MD PCP - General Family Medicine 06/20/21 documented as of this encounter
--- OUTSIDE RECORDS SUMMARY | 2023-12-22 15:15 | XMS_ITS | Encounter Summary ---
Author Organization [facility] [place] [address] Care Team Providers Care Rn Correctional Name Role Phone None Primary Care Provider Unavailabl e Encounter Details Date Type Department Care Team (Late st Contact Info) Description 09/29/2019 [place] [phone] Arielle Lord, [facility] Social History Tobacco Use Types Packs/Day [...] Notes * Telephone Encounter - Arielle Lord, [facility] - 09/29/2019 3:44 PM EDT [employer] Insurance Loss Control Surveyor Pre-Telemedicine Phone Note [] Patient not reached [x] Patient reached and the following information was reviewed/obtained per protocol: [x] Confirmed patient name and date of [x] Confirmed telemedicine ilda (Vidyo and Virtual Visit) is downloaded and functioning [x] Confirmed location of patient - TeleVisit is taking place in [] [place] [] [place] [] If not on [facility], working on signing up for [facility] [x] Confirmed has completed any pre-visit questionnaires [] If has not received required pre-visit questionnaires, send via [facility] [x] Reviewed patient medications ??? nitroGLYcerin [...] filedocumented in this encounter Care Teams Rn Correctional Relationship Specialty Start Date End Date None None PCP - General 01/22/18 03/01/20 documented as of this encounter
--- OUTSIDE RECORDS SUMMARY | 2023-12-22 15:15 | XMS_ITS | Encounter Summary ---
Author Organization [facility] [place] [address] Care Team Providers Care Geriatric Nurse Practitioner Name Role Phone None Primary Care Provider Unavailabl e Encounter Details Date Type Department Care Team (Late st Contact Info) Description 08/31/2019 [place] [phone] Corinne Frausto Social History Tobacco Use Types [...] on filedocumented in this encounter Care Teams Geriatric Nurse Practitioner Relationship Specialty Start Date End Date None None PCP - General 01/22/18 03/01/20 documented as of this encounter
--- OUTSIDE RECORDS SUMMARY | 2023-12-22 15:15 | XMS_ITS | Encounter Summary ---
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 Garth Marroquin, DO [address] [place] [address] [facility] Cardiology [address] [place] [phone] Referral ID Status Reason Start Date Expiration Date V isits Requested Visits Authorized [id number] Closed Consult, Test & Treat [facility] 03/02/2017 03/02/2018 1 1 Encounter Details Date Type Department Care Team (Late st Contact Info) Description 04/16/2017 12:00 PM EST Office Visit Cardiology at [address] [phone] Laverne Coon MD [facility] [address] Unstable angina; Essential hypertension Social History [...] chest pain Primary provider: Garth Marroquin DO [address] [place] [phone] ?? Problem List: 1: Type 2 DM [...] Office Visit from 04/16/2017 in Cardiology at [place] Weight 108 kg (238 lb) Height 170.2 [...] with primary care provider Laverne Coon MD [facility] Interventional Cardiology Pager [phone] documented in this encounter Plan of Treatment [...] (Bezet) 449 ms MUSE SYSTEM Calculated P [place] 25 degrees MUSE SYSTEM Calculated R [place] 28 degrees MUSE SYSTEM Calculated T [place] 24 degrees MUSE SYSTEM INTERPRETATION Normal sinus [...] hypertension documented in this encounter Care Teams Soubrette Relationship Specialty Start Date End Date Garth Berg MD [address] [place] [address] PCP - General General Internal Medicine 03/02/17 documented as of this encounter
--- OUTSIDE RECORDS SUMMARY | 2023-12-22 15:15 | XMS_ITS | Encounter Summary ---
Author Organization [facility] [place] [address] Care Team Providers Care Fire Crew Worker Name Role Phone None Primary Care Provider Unavailabl e Encounter Details Date Type Department Care Team (Late st Contact Info) Description 10/04/2019 [place] [phone] Corinne Frausto Social History Tobacco Use Types [...] filedocumented in this encounter Care Teams Fire Crew Worker Relationship Specialty Start Date End Date None None PCP - General 01/22/18 03/01/20 documented as of this encounter
--- OUTSIDE RECORDS SUMMARY | 2023-12-22 15:15 | XMS_ITS | Encounter Summary ---
Author Organization [facility] Address [facility] [place] [address] Care Team Providers Care Floor Sweeper Name Role Phone Garth Marroquin DO Primary Care Provider Reason for Visit * Reason Comments Establish Care Weight managment * Consultation (Routine) - Closed Specialty Diagnoses / Procedures Referred By Edis grossman Referred To Contact Weight and Wellness Diagnoses Localized adiposity BMI > 30 Garth Marroquin DO [address] [place] [address] [facility] [address] [place] [address] Referral ID Status Reason Start Date Expiration Date V isits Requested Visits Authorized [id number] Closed Consult, [facility] PCP Updated and/or Approved 02/23/2020 02/22/2021 6 6 Encounter Details Date Type Department Care Team (Late st Contact Info) Description 09/27/2020 10:00 AM EDT Office Visit Weight and Wellness at [facility] [address] [place] [address] Tessie Robles MD [facility] [address] [place] [address] Class 2 obesity due to [...] dietary choices. You will see a health continuous improvement coach who will talk to you about [...] 3 business days, please call us at: [phone]. Below is a summary of our discussion [...] on all of these pillars, and each food court team member, will help you set achievable, actionable goals, [...] the disease of obesity) Appetite control The painting contractor, The GoGetter and The Sleepy Executive 720 - [place] video Sleep apnea and weight https://www.sleepfoundation.org/sleep-apnea/jvxbsn-squw-edd-sleep-apnea Insulin resistance and weight https://obesitymedicine.org/atxxeoq-sbp-bymjoir-resistance/ https://www.secondnature.io/us/guides/diabetes/bepcooq-jgosoavqsm-xeawvz-gain Dr. Brigido Dai: Fasting as a Therapeutic Option for Weight Loss - EnclarityTube Https://www.youDevice Innovation Groupube.com/watch?v=om7vzeca9zS https://www.youDevice Innovation Groupube.com/watch?v=81Imv3PoWEK The Mediterranean Diet https://MOGL.org/ https://www.health.[employer].edu/blog/y-dauamprdt-upbun-ui-ewm-dqjyxwypxklub-diet- 5973826607329 An important thing to remember as you [...] a general recommendation for all patients. Your life science taxonomist and provider will help make more specific [...] increasing mindfulness throughout the day. Your health continuous improvement coach is well-equipped to guide you to find something to look forward to everyday. Eating behaviors: many people benefit from restricting the hours in which they eat. You can choose an eating window of 8-12 hours to start. Make a pact with yourself that you will not take in anything with caloric content outside this window. Your life science taxonomist may make further recommendations GLP 1 Receptor [...] the same way that they help diabetics. https://www.diabeteseducator.org/practice/practice-tools/lubfasdr-hrlzfasugg-zkm ls/vgz-2-ivungdagv https://www.diabeteseducator.org/docs/default-source/practice/educator-tools/glp -1-medications/understanding_glp_final.pdf?sfvrsn=2 The following informational sheet will provide instruction for how to store and inject the injectable forms of GLP1 Fito. https://www.diabeteseducator.org/practice/practice-tools/wmnsatxx-dkbtqqvtoq-cxz ls/stf-3-mevgvenqz documented in this encounter Progress Notes * Tessie Robles MD - 09/27/2020 10:00 AM EDTSummary: initial consult [facility] Patient Name: Pavan Padilla Date of : 1965 Age: 55 y.o. Referring provider: Garth Marroquin Dear Garth Marroquin DO, Thank you for referring Pavan Padilla to the [facility] [place] for a consultationfor obesity management. I reviewed [...] again for allowing the [facility] [place] to join [place]'s healthcare team. SUMMARY OF VISIT: Pavan Padilla presented to the [facility] for a consultative visit regarding obesity [...] medications: Glipizide, gabapentin, amitriptyline Referrals: [x]Nutrition [x]Health continuous improvement coach []Sleep medicine []Bariatric surgery []GI []Behavioral health []ACT group [x]Research coordinator CHIEF COMPLAINT: Management of excess weight HISTORY OF PRESENT ILLNESS: Weight History: [facility] Weight History 09/27/2020 What is the [...] medications, increased intake and frequent snacking on [facility] Importance 09/27/2020 How important is it to [...] a diff brand, cravings resumed. Sleep: Circadian: []retail shift manager work []irregular sleep timings [x]Normal day/night schedule [...] [] skips meals [] Night eating Movement: [facility]: PAVS 09/27/2020 How many days [...] Vitals: 09/27/20 0951 BP: 105/56 BP Location ([facility]): Right arm Patient Position: Sitting [...] 141 09/27/2020 Lab Results Component Value Date [id number] 09/27/2020 25-OH Vit D Total (ng/mL) Date Value Status 09/27/2020 41 Final ASSESSMENT AND PLAN Pavan Padilla is a 55 y.o. male with uncontrolled obesity who presented to [facility] today for medical evaluation with associated [...] [x]Consider ACT, for unplanned eating event with [facility] Activity: provided resistance bands and booklet [...] behavioral interventions, see goals Referrals: Dietitian, Health Clothing And Textiles Teacher, AOM: D/c glipizide and start semaglutide for [...] changes that are significant. Care pathway: Pathway: [facility] PATHWAY - ADULT 09/27/2020 Adult Biobank Activate Return in about 4 weeks (around 10/25/2020) for MD Nagel or clinic, //RD 1-2 wks, //HC 2wks after RD. I spoke with Pavan about opportunities to participate in research and to be contacted by our research visitor service assistant. They indicated that they are: [x] INTERESTED [] NOT INTERESTED // [] NOT ADDRESSED [facility] Initial Responses 09/27/2020 URICA - Readiness Score 12.33 (Preparation State) WEL-SF Total Scores 72 PHQ-2 SubScore 0 (Brief screen negative) GAD2 Subscore 0 (Brief screen negative) PROMIS 10 Physical Scores 37.4 PROMIS 10 Mental Scores 48.3 Total REAP-S Scores 17 TFEQ - Uncontrolled Eating (UE) 29.62 TFEQ-Cognitive Restraint (CR) 11 TFEQ-Emotional Eating 27.77 Food Insecurity Score 2 [place] Category I Result 1 (Negative) [place] Category II Result 1 (Negative) [place] Category III 1 (Positive) [place] Sleep Apnea Total 3 (High Risk) Schooling [...] LDL Cholesterol, Direct (09/27/2020 11:41 AM EDT) [facility] LDL Cholesterol, Direct 79 mg/dL [facility] Comment: Lowest Risk: <100 mg/dL Lower Risk: 100-129 mg/dL Borderline High Risk: 130-159 mg/dL High Risk: 160-189 mg/dL Very High Risk: >hs=302 mg/dL Blood 09/27/2020 11:4 1 AM EDT 09/27/2020 12:48 PM EDT Narrative Resulting Agency Comment Spec In Lab Tessie Robles MD CHEMISTRY ORDERABLES Performing Organization Address City/[facility] Co de Phone Number [facility] [place] [address] * Biorepository Request (09/27/2020 11:41 AM EDT) [facility] Biorepository Hold Sample in lab [facility] Blood 09/27/2020 11:4 1 AM EDT 09/27/2020 1:25 PM EDT Narrative Resulting Agency Comment Spec In Lab Tessie Robles MD MOLECULAR ORDERABLES Performing Organization Address City/[facility]/ZIP Co de Phone Number [facility] [place] [address] * Hepatic Function Panel (09/27/2020 11:41 AM EDT) [facility] Protein, Total 6.8 6.1 - 8.0 gm/dL [facility] Albumin 4.2 3.2 - 5.2 gm/dL [facility] Aspartate Aminotransferase 22 0 - 39 unit/L [facility] Alanine Aminotransferase 35 0 - 55 unit/L [facility] Alkaline Phosphatase 102 40 - 130 unit/L [facility] Bilirubin, Total 0.2 0.2 - 1.3 mg/dL [facility] Bilirubin, Direct 0.1 0.0 - 0.3 mg/dL [facility] Blood 09/27/2020 11:4 1 AM EDT 09/27/2020 12:48 PM EDT Narrative Resulting Agency Comment Spec In Lab Tessie Robles MD CHEMISTRY ORDERABLES Performing Organization Address City/State/[facility] Co de Phone Number [facility] [place] [address] * Lipid Panel (Reflex Direct LDL) (09/27/2020 11:41 AM EDT) [facility] Cholesterol, Total 188 mg/dL [facility] Comment: Lower Risk: <200 mg/dL Average Risk: 200-239 mg/dL Higher Risk: >ka=244 mg/dL Triglyceride 668 mg/dL [facility] Comment: Average Risk/Lower Risk: <150 mg/dL Borderline High Risk: 150-199 mg/dL High Risk: 200-499 mg/dL Very High Risk: >kj=690 mg/dL HDL Cholesterol 22 mg/dL [facility] Comment: Males: ?? Higher Risk: <40 mg/dL Females: ?? Higher Risk: <50 mg/dL LDL Cholesterol Not Calculated [facility] Comment: Lowest Risk: <100 mg/dL Lower Risk: 100-129 mg/dL Borderline High Risk: 130-159 mg/dL High Risk: 160-189 mg/dL Very High Risk: >ie=329 mg/dL Calculated LDL value is not valid for triglycerides greater than 400 mg/dl. Cholesterol/HDL Ratio 8.5 ratio [facility] Lipid Interpretation See Note [facility] Comment: Lipid management should be guided by a patient? s ASCVD risk, goals and preferences. ACC/AHA Guidelines recommend high intensity statin if clinical ASCVD or LDL greater than or equal to 190 mg/dL. http://Sports Challenge Network.com/ZAC-BCW-Xmfuhkcbd Adults aged 40-75 with LDL 70-189 mg/dL should have their 10 year ASCVD risk estimated with the ACC/AHA ASCVD risk estimator binding http://tools.acc.org/ANDAW-Avfc-Pdrisyyjn/ Statin should be discussed if risk greater [...] In Lab Tessie Robles MD CHEMISTRY ORDERABLES [facility] [place] [address] * (ABNORMAL) Hemoglobin A1c (09/27/2020 11:41 AM EDT) Hemoglobin A1c 8.0(H) 4.3 - 5.6 % [facility] Comment: Reference Range: 4.3 - [...] Mellitus, Diabetes Care 2013; 36: Suppl. 1, S67-13 Estimated Average Glucose 182 mg/dL [facility] Comment: eAG equivalents for HbA1c [...] into estimated average glucose values. ??Diabetes Care 2008:31(8):9798-5501. Blood 09/27/2020 11:4 1 AM EDT 09/27/2020 12:47 PM EDT Narrative Resulting Agency Comment Spec In Lab Tessie Robles MD CHEMISTRY ORDERABLES [facility] [place] [address] * Ferritin (09/27/2020 11:41 AM EDT) [facility] Ferritin 141 30 - 400 ng/mL [facility] Comment: Pediatric reference ranges not verified at [facility], interpret with caution. Reference ranges for females greater than 50 years of age approach values for men, i.e., 30-400 ng/mL. Blood 09/27/2020 11:4 1 AM EDT 09/27/2020 4:28 PM EDT Narrative Resulting Agency Comment Spec In Lab Tessie Robles MD CHEMISTRY ORDERABLES Performing Organization Address City/[facility]/ZIP Co de Phone Number [facility] [place] [address] * Vitamin B12 (09/27/2020 11:41 AM EDT) Vitamin B12 423 232 - 1,245 pg/mL [facility] Blood 09/27/2020 11:4 1 AM EDT 09/27/2020 4:28 PM EDT Narrative Resulting Agency Comment Spec In Lab Tessie Robles MD CHEMISTRY ORDERABLES Performing Organization Address [facility] Co de Phone Number [facility] [place] [address] * Vitamin D, 25-Hydroxy (09/27/2020 11:41 AM EDT) Vitamin D Total 25 OH 41 21 - 100 ng/mL [facility] Vit D Interp Sufficient [facility] Blood 09/27/2020 11:4 1 AM EDT 09/27/2020 4:28 PM EDT Narrative Resulting Agency Comment Spec In Lab Tessie Robles MD CHEMISTRY ORDERABLES Performing Organization Address City/[facility]/ZIP Co de Phone Number [facility] [place] [address] * (ABNORMAL) POCT glycated hemoglobin, total (HA1C) [...] disorder documented in this encounter Care Teams Floor Sweeper Relationship Specialty Start Date End Date Garth Marroquin DO [address] [place] [address] PCP - General Family Medicine 03/02/20 06/19/21 documented as of this encounter
--- OUTSIDE RECORDS SUMMARY | 2023-12-22 15:15 | XMS_ITS | Encounter Summary ---
Author Organization [facility] [place] [address] Care Team Providers Care Cad Administrator Name Role Phone None Primary Care Provider Unavailabl e Encounter Details Date Type Department Care Team (Late st Contact Info) Description 09/02/2019 [place] [phone] Corinne Frausto Social History Tobacco Use Types [...] on filedocumented in this encounter Care Teams Cad Administrator Relationship Specialty Start Date End Date None None PCP - General 01/22/18 03/01/20 documented as of this encounter
--- OUTSIDE RECORDS SUMMARY | 2023-12-22 15:15 | XMS_ITS | Encounter Summary ---
Author Organization [facility] [address] Care Team Providers Care Television News Photographer Name Role Phone None Primary Care Provider Unavailabl e Encounter Details Date Type Department Care Team (Late st Contact Info) Description 09/06/2019 [place] [phone] Corinne Frausto Social History Tobacco Use Types [...] on filedocumented in this encounter Care Teams Television News Photographer Relationship Specialty Start Date End Date None None PCP - General 01/22/18 03/01/20 documented as of this encounter
--- OUTSIDE RECORDS SUMMARY | 2023-12-22 15:15 | XMS_ITS | Encounter Summary ---
[place] [address] Care Team Providers Care Family Consumer Science Teacher Name Role Phone Garth Berg MD Primary Care Provider [phone] Encounter Details Date Type Department Care Team (Late st Contact Info) Description 01/14/2018 Tele[place] [phone] Judd Johnston II Social History Tobacco Use [...] on filedocumented in this encounter Care Teams Family Consumer Science Teacher Relationship Specialty Start Date End Date Garth Berg MD [address] [place], [place] [id number] PCP - General General Internal Medicine 03/02/17 documented as of this encounter
--- OUTSIDE RECORDS SUMMARY | 2023-12-22 15:15 | XMS_ITS | Encounter Summary ---
Author Organization [facility] Address [facility] [place] [address] Care Team Providers Care Pet Resort Concierge Name Role Phone Garth Berg MD Primary Care Provider [phone] Encounter Details Date Type Department Care Team (Latest Contact Info) Description 01/09/2018 - 01/09/2018 11:59 PM [facility] Hospital Encounter Radiology Library at [facility] [place] [address] Backer, Amando Renteria MD [facility] [place] [address] Discharge Disposition: Home Social History Tobacco Use [...] & Pelvis (01/09/2018 12:00 AM EST) Narrative JASWINDER CHEW - 01/14/2018 11:49 AM EST This exam is for storage only and is auto-finalizing. Amando Robins MD [facility]M LIBRARY ORD ERABLES [place], [place] documented in this encounter Visit Diagnoses Not on filedocumented in this encounter Care Teams Pet Resort Concierge Relationship Specialty Start Date End Date Garth Berg MD [address] [place] [address] PCP - General General Internal Medicine 03/02/17 documented as of this encounter
--- OUTSIDE RECORDS SUMMARY | 2023-12-22 15:15 | XMS_ITS | Encounter Summary ---
Author Organization [facility] [address] [place] [id number] Care Team Providers Care Hebrew Cantor Name Role Phone None Primary Care Provider Unavailabl e Reason for Referral * Diagnostic Test (Routine) - Specialty Diagnoses / Procedures Referred By Contac t Referred To Contact Radiology Diagnoses Pulmonary nodule Procedures CT Chest Screening Lung Cancer Ector Garcia MD [facility] [place] [address] [facility] [place] [address] Referral ID Status Reason Start Date Expiration Date Visits Requested Visits Authorized [id number] Specialty Service Requested 11/22/2018 11/22/2019 1 1 Reason for Visit * Diagnostic Test (Routine) - Specialty Diagnoses / Procedures Referred By Contac t Referred To Contact Radiology Diagnoses Pulmonary nodule Procedures CT Chest Screening Lung Cancer Ector Garcia MD [facility] [place] [address] [facility] [place] [address] Referral ID Status Reason Start Date Expiration Date Visits Requested Visits Authorized [id number] Specialty Service Requested 11/22/2018 11/22/2019 1 1 Encounter Details Date Type Department Care Team (Latest Contact Info) Description 12/23/2019 8:53 AM EST - 12/23/2019 11:59 PM EST Hospital Encounter CT Scan at [facility] [place] [address] Ector Garcia MD [facility] [place] [address] Pulmonary nodule Discharge Disposition: Home Social History [...] ? Electronically signed by: Salud Beltran MD, [facility] ([phone]), at 12/26/2019 6:44 PM Narrative 12/26/2019 6:44 PM EST EXAMINATION: CT CHEST SCREENING LUNG CANCER CLINICAL HISTORY: Lung Cancer Screening Asymptomatic but at high risk for lung cancer TECHNIQUE: Noncontrast, low-dose chest CT (LDCT) per [facility] lung cancer screening protocol. COMPARISON: 11/22/2018 noncontrast [...] renal cysts, as before. Procedure Note Salud Beltarn MD - 12/26/2019 EXAMINATION: CT CHEST SCREENING LUNG CANCER CLINICAL HISTORY: Lung Cancer Screening Asymptomatic but at high risk for lung cancer TECHNIQUE: Noncontrast, low-dose chest CT (LDCT) per [facility] lung cancerscreening protocol. COMPARISON: 11/22/2018 noncontrast chest [...] below. Electronically signed by: Salud Beltran MD, [facility]([phone]), at 12/26/2019 6:44 PM Ector Garcia MD IMG CT ORDERABLES documented in this encounter Visit Diagnoses Diagnosis Pulmonary nodule Solitary pulmonary nodule documented in this encounter Care Teams Hebrew Cantor Relationship Specialty Start Date End Date None None PCP - General 01/22/18 03/01/20 documented as of this encounter
--- OUTSIDE RECORDS SUMMARY | 2023-12-22 15:15 | XMS_ITS | Encounter Summary ---
Author Organization [facility] Address [facility] [place] [address] Care Team Providers Care Installation And Service Technician Name Role Phone Garth Berg MD Primary Care Provider [phone] Reason for Visit * Auth/Cert Specialty Diagnoses / Procedures Referred By Contac t Referred To Contact Diagnoses Unstable angina [place] ?CAD Procedures CARDIAC CATHETERIZATION Referral ID Status Reason Start Date Expiration Date Visits Re quested Visits Authorized [id number] 1 1 Encounter Details Date Type Department Care Team (Latest Contact Info) Description 03/20/2017 1:33 PM EST - 03/21/2017 1:28 PM EST Hospital Encounter Cardiac [place] [id number] Jose Olivares MD [facility] [place] [address] Atherosclerosis of [place] coronary artery of [place] heart with unstable angina pectoris Discharge Disposition: [...] Mannie Padilla Patient Age: 51 y.o. Language: Cypriot Race: Ethnicity: Admit date: 03/20/2017 Discharge date [...] your inpatient physician through the [facility] . Issues afterhours and on weekends will be handled by the pilot submersible on-call. Discharge Diagnoses (Hospital Problems) and Secondary [...] (>100 pack years) presenting in transfer from [facility] with unstable angina. He presented to the [...] weeks. ?? Emergency contact: Gayatri Suarez - [phone] (Mother) ?? OSH labs prior to transfer: [...] up with your primary care provider and branch coordinator for further instructions on your medication regimen. Primary care follow up: To be determined Follow-Up Appointments Future Appointments Date Time Provider Department Center 04/16/2017 12:00 PM Laverne Coon MD [facility] Date and Time Provider and Specialty Location Your Inpatient Doctor(s) at [facility]: Dr. Jose West General Instructions None Future Appointments and Orders Future Appointments Provider Department Dept Phone 04/16/2017 12:00 PM Laverne Coon MD Cardiology at [place] [phone] Discharge References/Attachments None documented in this encounter [...] up with your primary care provider and branch coordinator for further instructions on your medication regimen. Primary care follow up: To be determined Follow-Up Appointments Future Appointments Date Time Provider Department Center 04/16/2017 12:00 PM Laverne Coon MD [facility] Date and Time Provider and Specialty Location Your Inpatient Doctor(s) at [facility]: Dr. Jose West documented in this encounter [...] removed and telemetry disconnected. Patient brought to [facility] via wheelchair. * Jose Olivares MD [...] (>100 pack years) presenting in transfer from [facility] with unstable angina. Active Problems: Active Hospital [...] (>100 pack years) presenting in transfer from [facility] with unstable angina. Plan: Cardiac catheterization shows [...] He will follow-up with his PCP and branch coordinator as an outpatient. Jim West MD, PGY-1 Cardiology S1 (pgr. [id number]) CARDIOLOGY STAFF NOTE Mannie Padilla is a [...] this and is ambulatory. Jose Olivares MD, [facility] Staff Plumbing Warehouse Helper pager [phone] * Savita Aquilino X - 03/21/2017 12:02 [...] obtained. Family at bedside. Patient brought to bolt labeler. Patient returned from bolt labeler. TR band in place. Fluids infusing as [...] in the chart. Plan/ Coronary Angio per coating and embossing unit operator preference No c/i to long-term DAPT Moderate sedation MAGUI Mijares MD documented in this encounter H&P Notes * Jose Olivares MD - 03/20/2017 1:39 PM EST Cardiology Admission History and Physical Patient Name: Mannie Padilla Service: Cardiology S1 Team Responsible Attending: Jose Olivares MD PCP: Garth Berg MD PCP phone #: [phone] ID/Chief Complaint: 51 y.o. man with history [...] (>100 pack years) presenting in transfer from [facility] with unstable angina. He presented to the [...] recent weeks. Emergency contact: Gayatri Suarez - [phone] (Mother) OSH labs prior to transfer: CBC: [...] Only Family History: Mother: HTN, CVA MGF: [place] 57 MGGF: [place] 80 Father: of brain cancer at 67 [...] in the last 7068 hours. Invalid input(s): [id number] Heme: No results for input(s): LDH, HAPTOGLOBIN, [...] (>100 pack years) presenting in transfer from [facility] with unstable angina. He is currently without chest pain and has successfully been weaned off nitroglycerine drip. Given presentation, risk factorsand recent positive stress test, we will proceed with cardiac catheterization. Details of plan as follows. PLAN: Admit to Cardiology, S1 Team Pager # [phone] # ACS - unstable angina - Medications [...] of ACS medical therapies. Jose Olivares MD, [facility] Staff Plumbing Warehouse Helper pager [phone] documented in this encounter Miscellaneous Notes * [...] Procedure Name Priority Date/Time Associated Diagnosis Comments VICE PRESIDENT DIGITAL STRATEGIST SCAN 03/22/2017 12:00 AM EST POCT GLUCOSE [...] Routine 03/20/2017 4:44 PM EST Atherosclerosis of [place] coronary artery of [place] heart with unstable angina pectoris EKG 12-LEAD STAT 03/20/2017 3:05 PM EST Atherosclerosis of [place] coronary artery of [place] heart with unstable angina pectoris HEMOGRAM Routine [...] in this encounter Results * SCAN DOC: VICE PRESIDENT DIGITAL STRATEGIST (03/22/2017 12:00 AM EST) Anatomical Region Laterality Modality Other Narrative 03/22/2017 12:00 AM EST Ordered by an unspecified provider. Scanning Provider MEDIA MGR SCAN EXT O RDR/RSLT * POCT Glucose (03/21/2017 11:58 AM EST) Glucose, POC 104 65 - 199 mg/dL [facility] Comment: Supplemental ranges: <140 mg/dL before meals <180 mg/dL all other times of the day Blood specimen (specimen) 03/21/2017 11:58 AM EST 03/21/2017 11:58 AM EST Jose Olivares MD POINT OF CARE TEST O DEANN Performing Organization Address City/[facility]/ZIP Co de Phone Number [facility] [place] [address] * POCT Glucose (03/21/2017 7:39 AM EST) Glucose, POC 127 65 - 199 mg/dL [facility] Comment: Supplemental ranges: <140 mg/dL before meals <180 mg/dL all other times of the day Blood specimen (specimen) 03/21/2017 7:39 AM EST 03/21/2017 7:39 AM EST Jose Olivares MD POINT OF CARE TEST O RDERANAOMI Performing Organization Address City/[facility]/ZIP Co de Phone Number [facility] [place] [address] * Magnesium (03/21/2017 5:07 AM EST) Magnesium 0.89 0.69 - 1.07 mmol/L [facility] Blood specimen (specimen) Venous Draw / Unknown 03/21/2017 5:07 AM EST 03/21/2017 5:30 AM EST Narrative Resulting Agency Comment Spec In Lab Jim West MD CHEMISTRY ORDERA BLES [facility] [place] [address] * (ABNORMAL) Basic Metabolic Panel (non-fasting) (03/21/2017 5:07 AM EST) Glucose 121 65 - 199 mg/dL [facility] Comment:Diabetes: >=200 mg/d L plus symptoms Blood Urea Nitrogen 19 10 - 20 mg/dL [facility] Creatinine 1.31 0.80 - 1.50 mg/dL [facility] Sodium 139 135 - 145 mmol/L [facility] Potassium 4.0 3.5 - 5.0 mmol/L [facility] Comment: Please note: ??Patients with WBC >100,000 may have falsely elevated Potassium levels. ??For accurate Potassium quantification in these patients send serum separator tube (gold top) for subsequent determinations. ??Contact the Clinical Chemistry Laboratory if there are any questions. Chloride 103 98 - 107 mmol/L [facility] Carbon Dioxide 25 22 - 31 mmol/L [facility] Anion Gap 11 5 - 15 mmol/L [facility] Calcium 9.2 8.5 - 10.5 mg/dL [facility] Est Glomerular Filtration Rate 57(L) >=60 [facility] Comment: The reported eGFR should be multiplied by 1.2 for patients. The MDRD is not an appropriate measure of renal function for patients with body mass extremes or in patients with acute kidney failure. http://[facility].KaChing!/DHnkdep http://Immunexpress/DHMCnkf Blood specimen (specimen) 03/21/2017 5:07 AM EST 03/21/2017 5:29 AM EST Narrative Resulting Agency Comment Spec In Lab Jose Olivares MD CHEMISTRY ORDERABLES Performing Organization Address City/[facility]/[place] [address] * (ABNORMAL) Differential, Automated (03/21/2017 5:07 AM EST) Neutrophil % 57.4 % [facility] Neutrophil Absolute 4.37 1.70 - 6.10 x10(3)/mc L [facility] Lymph % 23.6 % [facility] Lymphocytes Abs 1.8 0.9 - 3.2 x10(3)/ L [facility] Monocyte % 13.2 % [facility] Monocyte Abs 1.0(H) 0.3 - 0.9 x10(3)/mc L [facility] Eos % 3.2 % [facility] Eosinophils Abs 0.2 0.0 - 0.4 x10(3)/[facility] Basophil % 1.2 % [facility] Baso Absolute 0.1 0.0 - 0.1 x10(3)/ L [facility] Immature Gran % 1.40 % [facility] Comment: Immature granulocytes(IG's)percentage and absolute count will include metamyelocytes, myelocytes, and promyelocytes. Blood smears from CBCs yielding IG's will be scanned manually for concordance. If this scan disagrees with the automated IG or if promyelocytes are noted, a manual differential will be performed. Immature Gran Absolute 0.11(H) 0.00 - 0.04 x10(3)/ L [facility] Blood specimen (specimen) 03/21/2017 5:07 AM EST 03/21/2017 5:28 AM EST Narrative Resulting Agency Comment Spec In Lab Noelle Hearn MD HEMATOLOGY ORDERABLE S Performing Organization Address City/[facility]/ZIP Co de Phone Number [facility] [place] [address] * Hemogram (03/21/2017 5:07 AM EST) Pathologist [facility] White Blood Cell 7.6 4.0 - 9.5 x10(3)/[facility] Red Blood Cell 4.83 4.58 - 5.54 x10(6)/[facility] Hemoglobin 14.6 13.7 - 16.5 gm/dL [facility] Hematocrit 43.1 40.5 - 48.5 % [facility] Mean Cell Volume 89.2 82.9 - 93.1 fL [facility] Mean Cell Hemoglobin 30.2 27.5 - 32.1 pg [facility] Mean Cell Hemoglobin Concentration 33.9 32.0 - 35.7 gm/dL [facility] Platelet 200 145 - 357 x10(3)/[facility] RDW Standard Deviation 42.4 36.0 - 45.0 [facility] RDW coefficient of variation 12.9 11.4 - 13.8 % [facility] Mean Platelet Volume 10.5 7.6 - 12.9 [facility] NRBC% auto 0.0 % [facility] NRBC Absolute 0.000 0.000 - 0.000 x10(3)/[facility] Blood specimen (specimen) 03/21/2017 5:07 AM EST 03/21/2017 5:28 AM EST Narrative Resulting Agency Comment Spec In Lab Noelle Hearn MD HEMATOLOGY ORDERABLE S [facility] [place] [address] * (ABNORMAL) Hemoglobin A1c (03/21/2017 5:07 AM EST) Hemoglobin A1c 6.0(H) 4.3 - 5.6 % [facility] Comment: Reference Range: 4.3 [...] Mellitus, Diabetes Care 2013; 36: Suppl. 1, A90-49 Estimated Average Glucose 126 mg/dL [facility] Comment: eAG equivalents for [...] into estimated average glucose values. ??Diabetes Care 2008:31(8):6493-4166. Blood specimen (specimen) 03/21/2017 5:07 AM EST 03/21/2017 5:29 AM EST Narrative Resulting Agency Comment Spec In Lab Jose Olivares MD CHEMISTRY ORDERABLES [facility] [place] [address] * (ABNORMAL) Lipid Panel (03/21/2017 5:07 AM EST) Cholesterol, Total 129 <=239 mg/dL [facility] Triglyceride 330(H) <=199 mg/dL [facility] HDL Cholesterol 22(L) >=40 mg/dL [facility] LDL Cholesterol 41 <=190 mg/dL [facility] Cholesterol/HDL Ratio 5.9 ratio [facility] Lipid Interpretation See Note [facility] Comment: Lipid management should be guided by a patient? s ASCVD risk, goals and preferences. ACC/AHA Guidelines recommend high intensity statin if clinical ASCVD or LDL greater than or equal to 190 mg/dL. http://[facility].com/AFY-QQS-Fwkjjkkio Adults aged 40-75 with LDL 70-189 mg/dL should have their 10 year ASCVD risk estimated with the ACC/AHA ASCVD risk auto damage estimator http://tools.acc.org/GBREV-Rpcr-Kufuhgjpo/ Statin should be discussed if risk greater [...] In Lab Jose Olivares MD CHEMISTRY ORDERABLES [facility] [place] [address] * POCT Glucose (03/20/2017 8:06 PM EST) Glucose, POC 125 65 - 199 mg/dL [facility] Comment: Supplemental ranges: <140 mg/dL before meals <180 mg/dL all other times of the day Blood specimen (specimen) 03/20/2017 8:06 PM EST 03/20/2017 8:06 PM EST Jose Olivares MD POINT OF CARE TEST O RDERABLES [facility] [place] [address] * CARDIAC CATHETERIZATION (03/20/2017 5:15 PM EST) Anatomical Region Laterality Modality Other Narrative 03/20/2017 5:30 PM EST ?[facility] ? Cardiac Catheterization/Intervention Report ? Patient Name: , Mannie D. ? Procedure Date: 03/20/2017 ? A #: [id number] ? Primary Physician: Fantasma Rubalcava ? Case #: [id number] ? File Name: [id number] ? Catheterization Order Number: [id number] ? [facility] ? Final Report [place], [place] ? Patient Name: ? Mannie D. Dixiet ? ID#: ?[id number] ? : ?1965 ? Procedure Date: ? [...] presented with: unstable angina (w/i 60 days). French ?Cardiovascular Society angina class was III. This [...] Procedure Note Fantasma Rubalcava MD - 03/27/2017 [facility] Cardiac Catheterization/Intervention Report Patient Name: Mannie Padilla Procedure Date: 03/20/2017 A #: [id number] Primary Physician: Fantasma Rubalcava Case #: [id number] File Name: [id number] Catheterization Order Number: [id number] [facility] FinalReport [place], [place] Patient Name: Mannie Padilla ID#:[id number] :1965 Procedure Date: March 20, 2017 Case [...] presented with: unstable angina (w/i 60 days). [place] Cardiovascular Society angina class was III. This [...] CONTRAST (03/20/2017 4:44 PM EST) EF 65 HEARTTimberFish Technologies SYSTEM Anatomical Region Laterality Modality Other 03/20/2017 Narrative 03/20/2017 4:57 PM EST Procedure: ?Transthoracic Echocardiogram Patient: ?MERCHANT CHAND D ?? (Age): 1965(51y) Med Rec#: ? [id number] ?Sex: ?M ? Site Loc: ? [facility] ?Ht / Wt: ??170(cm)/106(kg) Pt. Loc: ?Adult Floor ? BSA: ?2.16 Study Date: ?? 03/20/2017 ?Pt. Type: Inpatient Tape: ? Referring: MARION Reading: Micheal Kent ([id number]) Reimbursement Consultant: Joselito Linares Diagnosis: *ICD-10-PCS Atherosclerotic heart disease of [place] coronary artery with unstable angina pectoris (I25.110) [...] E-wave Vmax ?0.8 ?m/sec ? MV deceleration [id number] ?msec ? MV A-wave Vmax ?1 ?m/sec [...] ? Mid-Inferior ?Normal ? Mid-Inferoseptal ?Normal ? Rickman-Septal ? Normal ? Rickman-Anterior ? Normal ? Rickman-Lateral ?Normal ? Rickman-Inferior ? Normal ? Rickman-Tip ?Normal ? This report has been electronically signed by: Micheal Kent MD ? 03/20/2017 16:56:45 Images reviewed and interpretation verified [facility] Cardiac Ultrasound Laboratory Procedure Note Micheal Kent MD - 03/20/2017 Procedure: Transthoracic Echocardiogram Patient: MERCHANT MANNIE Renteria (Age): 1965(51y) Med Rec#: [id number] Sex: M Site Loc: [facility] Ht / Wt: 170(cm)/106(kg) Pt. Loc: Adult Floor BSA: 2.16 Study Date: 03/20/2017 Pt. Type: Inpatient Tape: [facility] Reading: Micheal Kent ([id number]) Reimbursement Consultant: Joselito Linares Diagnosis: *ICD-10-PCS Atherosclerotic heart disease of [place] coronary artery with unstable angina pectoris (I25.110) [...] MV E-wave Vmax 0.8 m/sec MV deceleration [id number] msec MV A-wave Vmax 1 m/sec MV [...] Normal Mid-Posterolateral Normal Mid-Inferior Normal Mid-Inferoseptal Normal Rickman-Septal Normal Rickman-Anterior Normal Rickman-Lateral Normal Rickman-Inferior Normal Rickman-Tip Normal This report has been electronically signed by: Micheal Kent MD 03/20/2017 16:56:45 Images reviewed and interpretation verified [facility] Cardiac Ultrasound Laboratory Jose Olivares MD ECHO ORDERABLES * EKG 12 Lead (03/20/2017 3:05 PM EST) Ventricular rate 62 BPM MUSE SYSTEM Atrial Rate 62 BPM MUSE SYSTEM P-R Interval 146 ms MUSE SYSTEM QRS Duration 84 ms MUSE SYSTEM Q-T Interval 420 ms MUSE SYSTEM QTC Calculated (Bezet) 426 ms MUSE SYSTEM Calculated P Wishram 14 degrees MUSE SYSTEM Calculated R Wishram 25 degrees MUSE SYSTEM Calculated T Wishram 27 degrees MUSE SYSTEM INTERPRETATION Normal sinus rhythm Normal ECG No previous ECGs available Confirmed by Jose Olivares MD ([id number]) on 03/20/2017 5:30:25 PM MUSE SYSTEM 03/20/2017 3:05 PM EST 03/20/2017 5:30 PM EST Jose Olivares MD ECG ORDERABLES MUSE SYSTEM * (ABNORMAL) Differential, Automated (03/20/2017 2:54 PM EST) Neutrophil % 62.3 % [facility] Neutrophil Absolute 6.48(H) 1.70 - 6.10 x10(3)/mc L [facility] Lymph % 21.8 % [facility] Lymphocytes Abs 2.3 0.9 - 3.2 x10(3)/mc L [facility] Monocyte % 10.8 % [facility] Monocyte Abs 1.1(H) 0.3 - 0.9 x10(3)/[facility] Eos % 2.6 % [facility] Eosinophils Abs 0.3 0.0 - 0.4 x10(3)/[facility] Basophil % 1.1 % [facility] Baso Absolute 0.1 0.0 - 0.1 x10(3)/[facility] Immature Gran % 1.40 % [facility] Comment: Immature granulocytes(IG's)percentage and absolute count will include metamyelocytes, myelocytes, and promyelocytes. Blood smears from CBCs yielding IG's will be scanned manually for concordance. If this scan disagrees with the automated IG or if promyelocytes are noted, a manual differential will be performed. Immature Gran Absolute 0.15(H) 0.00 - 0.04 x10(3)/[facility] Blood specimen (specimen) 03/20/2017 2:54 PM EST 03/20/2017 3:00 PM EST Narrative Resulting Agency Comment Spec In Lab Noelle Hearn MD HEMATOLOGY ORDERABLE S [facility] [place] [address] * (ABNORMAL) Hemogram (03/20/2017 2:54 PM EST) White Blood Cell 10.4(H) 4.0 - 9.5 x10(3)/[facility] Red Blood Cell 4.79 4.58 - 5.54 x10(6)/[facility] Hemoglobin 14.5 13.7 - 16.5 gm/dL [facility] Hematocrit 41.9 40.5 - 48.5 % [facility] Mean Cell Volume 87.5 82.9 - 93.1 fL [facility] Mean Cell Hemoglobin 30.3 27.5 - 32.1 pg [facility] Mean Cell Hemoglobin Concentration 34.6 32.0 - 35.7 gm/dL [facility] Platelet 188 145 - 357 x10(3)/mc L [facility] RDW Standard Deviation 40.9 36.0 - 45.0 fL [facility] RDW coefficient of variation 12.9 11.4 - 13.8 % [facility] Mean Platelet Volume 10.5 7.6 - 12.9 fL [facility] NRBC% auto 0.0 % [facility] NRBC Absolute 0.000 0.000 - 0.000 x10(3)/mc L [facility] Blood specimen (specimen) 03/20/2017 2:54 PM EST 03/20/2017 3:00 PM EST Narrative Resulting Agency Comment Spec In Lab Noelle Hearn MD HEMATOLOGY ORDERABLE S [facility] [place] [id number] * Cardiac Enzymes (LEB/CGP) (03/20/2017 2:54 PM EST) Troponin-T <0.01 0.00 - 0.00 ng/mL [facility] Comment: The 99th percentile for Troponin T is less than 0.01 ng/mL, any detectable cTnT concentration using this assay should be considered elevated. According to the third universal definition of myocardial infarction the following criteria with a clinical presentation consistent with acute myocardial ischemia meets the diagnosis for a myocardial infarction ([place]). Detection of a rise and/or fall of cTnT, with at least one value greater than the 99th percentile (> or = 0.01) and with at least one of the following ?? Symptoms of ischemia ?? New or presumed new significant IX-dtpnkxj-B wave (ST-T) changes or new left bundle [...] additional sample may be indicated. Reference: Third [place] Definition of Myocardial Infarction. Journal of the [place] College of Cardiology 2012;60:1581-98 Creatine Kinase 116 0 - 200 unit/L [facility] Blood specimen (specimen) 03/20/2017 2:54 PM EST 03/20/2017 3:00 PM EST Narrative Resulting Agency Comment Spec In Lab Jose Olivares MD CHEMISTRY ORDERABLES Performing Organization Address [facility] de Phone Number [facility] [place] [address] * Prothrombin Time (03/20/2017 2:54 PM EST) Prothrombin Time 13.1 11.8 - 14.0 sec [facility] International Normalization Ratio 1.0 0.9 - 1.1 [facility] Comment: An INR <2.0 [...] ORDERABLE S Performing Organization Address [facility] Co de Phone Number [facility] [place] [address] * Hepatic Function Panel (03/20/2017 2:54 PM EST) Protein, Total 6.9 6.1 - 8.0 gm/dL [facility] Albumin 4.2 3.2 - 5.2 gm/dL [facility] Aspartate Aminotransferase 17 0 - 39 unit/L [facility] Alanine Aminotransferase 27 0 - 55 unit/L [facility] Alkaline Phosphatase 68 40 - 120 unit/L [facility] Bilirubin, Total 0.4 0.2 - 1.3 mg/dL [facility] Bilirubin, Direct 0.1 0.0 - 0.3 mg/dL [facility] Blood specimen (specimen) 03/20/2017 2:54 PM EST 03/20/2017 3:00 PM EST Narrative Resulting Agency Comment Spec In Lab Jose Olivares MD CHEMISTRY ORDERABLES Performing Organization Address [facility] Co de Phone Number [facility] [place] [address] * pro-Brain Natriuretic Peptide (03/20/2017 2:54 PM EST) NT-proBNP 14 <=125 pg/mL [facility] Blood specimen (specimen) 03/20/2017 2:54 PM EST 03/20/2017 3:00 PM EST Narrative Resulting Agency Comment Spec In Lab Jose Olivares MD CHEMISTRY ORDERABLES Performing Organization Address [facility] Co de Phone Number [facility] [place] [address] * TSH (03/20/2017 2:54 PM EST) Thyroid Stimulating Hormone 0.62 0.27 - 4.20 mlU/ML [facility] Blood specimen (specimen) 03/20/2017 2:54 PM EST 03/20/2017 3:00 PM EST Narrative Resulting Agency Comment Spec In Lab Jose Olivares MD CHEMISTRY ORDERABLES Performing Organization Address [facility] Co de Phone Number [facility] [place] [address] * Phosphorus (03/20/2017 2:54 PM EST) Phosphorus 3.3 2.5 - 4.5 mg/dL [facility] Blood specimen (specimen) 03/20/2017 2:54 PM EST 03/20/2017 3:00 PM EST Narrative Resulting Agency Comment Spec In Lab Jose Olivares MD CHEMISTRY ORDERABLES Performing Organization Address [facility] Co de Phone Number [facility] [place] [place] [address] * Magnesium (03/20/2017 2:54 PM EST) Magnesium 0.85 0.69 - 1.07 mmol/L [facility] Blood specimen (specimen) 03/20/2017 2:54 PM EST 03/20/2017 3:00 PM EST Narrative Resulting Agency Comment Spec In Lab Jose Olivares MD CHEMISTRY ORDERABLES Performing Organization Address [facility] de Phone Number [facility] [place] [address] * Basic Metabolic Panel (non-fasting) (03/20/2017 2:54 PM EST) Glucose 90 65 - 199 mg/dL [facility] Comment:Diabetes: >=200 mg/d L plus symptoms Blood Urea Nitrogen 19 10 - 20 mg/dL [facility] Creatinine 1.22 0.80 - 1.50 mg/dL [facility] Sodium 140 135 - 145 mmol/L [facility] Potassium 3.8 3.5 - 5.0 mmol/L [facility] Comment: Please note: ??Patients with WBC >100,000 may have falsely elevated Potassium levels. ??For accurate Potassium quantification in these patients send serum separator tube (gold top) for subsequent determinations. ??Contact the Clinical Chemistry Laboratory if there are any questions. Chloride 103 98 - 107 mmol/L [facility] Carbon Dioxide 22 22 - 31 mmol/L [facility] Anion Gap 15 5 - 15 mmol/L [facility] Calcium 9.1 8.5 - 10.5 mg/dL [facility] Est Glomerular Filtration Rate >60 >=60 [facility] Comment: The reported eGFR should be multiplied by 1.2 for patients. The MDRD is not an appropriate measure of renal function for patients with body mass extremes or in patients with acute kidney failure. http://[facility].KaChing!/DHnkdep http://[employer]/[facility] Blood specimen (specimen) 03/20/2017 2:54 PM EST 03/20/2017 3:00 PM EST Narrative Resulting Agency Comment Spec In Lab Jose Olivares MD CHEMISTRY ORDERABLES Performing Organization Address [facility] Co de Phone Number [facility] [place] [address] * (ABNORMAL) APTT (03/20/2017 2:54 PM EST) [facility] Signature Partial Thromboplastin Time 43(H) 25 - 35 sec [facility] Comment: The recommended therapeutic range for full dose, unfractionated heparin at [facility] is 80 ? 114 seconds. The use of the anti-Xa (heparin) level rather than the PTT is recommended for monitoring anticoagulation intensity in critically ill patients receiving unfractionated heparin by continuous IV infusion. Blood specimen (specimen) 03/20/2017 2:54 PM EST 03/20/2017 3:00 PM EST Narrative Resulting Agency Comment Spec In Lab Jose Olivares MD HEMATOLOGY ORDERABLE S Performing Organization Address [facility] Co de Phone Number [facility] [place] [place] [address] * SCAN DOC: CARDIAC CATH (03/20/2017 12:00 AM EST) Anatomical Region Laterality Modality Cardiac Other Narrative 03/20/2017 12:00 AM EST Ordered by an unspecified provider. Scanning Provider MEDIA MGR SCAN EXT O RDR/RSLT documented in this encounter Visit Diagnoses Diagnosis Atherosclerosis of [place] coronary artery of [place] heart with unstable angina pectoris Unstable angina [...] area)1700 (Automatically Held - Provider: Admin Adt)1736 ([facility] Unhold - Provider: Admin Adt)2104 (Given - [...] specifically told to do so., Routine 1616 ([facility] Hold - Provider: Admin Adt - Reason: Transfer to a Procedural area)1630 (Automatically Held - Provider: Admin Adt)1736 ([facility] Unhold - Provider: [...] Thu03/21/17 at 0900, Until Discontinued, Routine 1616 ([facility] Hold [...] (Patch Applied - Provider: Effie Young RN)1616 ([facility] Hold - Provider: Admin Adt - Reason: Transfer to a Procedural area)1736 ([facility] Unhold - Provider: Admin Adt) 0857 (Patch Applied - Provider: Effie Young RN) nicotine (NICODERM CQ) 21 mg/24 hr patch Patch Removal(Linked Group 2) Transdermal, DAILY, First dose on 03/21/17 at 0900, Until Discontinued, Remove nicotine 21 mg/24 hr patch 1616 ([facility] Hold - [...] Verify nicotine 21 mg/24 hr patch 1616 ([facility] Hold - [...] 03/21/17 at 2100, Until Discontinued, Routine 1616 ([facility] Hold - Provider: Admin Adt - Reason: Transfer to a Procedural area)1736 ([facility] Unhold - Provider: Admin Adt) sodium chloride 0.9 % flush 5 mL 5 mL, Intravenous, 2 TIMES DAILY, First dose on Thu03/20/17 at 2100, Until Discontinued, Routine 1616 ([facility] Hold [...] (New Bag - Provider: Effie Young RN)1616 ([facility] Hold - Provider: [...] all sources in 24 hours., Routine 1616 ([facility] Hold [...] duration of the active insulin., Routine 161 ([facility] Hold - Provider: Admin Adt - Reason: Transfer to a Procedural area)1736 ([facility] Unhold - Provider: Admin Adt) docusate sodium (COLACE) capsule 100 mg 100 mg, Oral, DAILY PRN, Starting on Thu03/20/17 at 1443, Until 03/21/17 at 1528, Constipation, Routine 1616 ([facility] Hold [...] for discomfort with PIV insertion, Routine 161 ([facility] Hold [...] 2 mg, Buccal, EVERY 1 HOUR PRN, Smoking cessation, Starting on 03/20/17 at 1443, Until 03/21/17 at 1528, Maximum 20 Lozenges per day. If multiple PRN medications for smoking cessation, may give gum concomitant with lozenge. 1616 ([facility] Hold - Provider: Admin Adt [...] (Intra-Procedure), Routine 164 (Given - Provider: Ezio Aabrca MD) perflutren protein-A microspheres (OPTISON) 0.22 mg/mL [...] Routine documented in this encounter Care Teams Installation And Service Technician Relationship Specialty Start Date End Date Garth Berg MD [address] [place] [address] PCP - General General Internal Medicine 03/02/17 documented as of this encounter
--- OUTSIDE RECORDS SUMMARY | 2023-12-22 15:15 | XMS_ITS | Encounter Summary ---
[place] [address] Care Team Providers Care Head Up Operator Name Role Phone Unknown Primary Care Provider Unavailabl e Reason for Referral * Diagnostic Test (Routine) - Closed Specialty Diagnoses / Procedures Referred By Contac t Referred To Contact Radiology Diagnoses Pulmonary nodule Procedures PET CT Standard Skull Base to Mid-Thigh Amando Robins MD [facility] [place] [address] [place] [address] Referral ID Status Reason Start Date Expiration Date V isits Requested Visits Authorized [id number] Closed Specialty Service Requested 01/15/2018 01/15/2019 1 1 Reason for Visit * Reason Comments Referral * Consultation (Routine) - Closed Specialty Diagnoses / Procedures Referred By Contac t Referred To Contact Pulmonology Diagnoses PULMONARY NODULE Garth Marroquin, DO [address] [place] [address] [facility] Pulmonology [address] [place] [phone] Referral ID Status Reason Start Date Expiration Date V isits Requested Visits Authorized [id number] Closed Consult, Test & Treat Connection Center 12/21/2017 12/21/2018 1 1 Encounter Details Date Type Department Care Team (Late st Contact Info) Description 01/15/2018 8:00 AM EST Office [place] [address] Amando Robins MD [facility] [address] PULMONARY [place] [address] Pulmonary nodule Social History Tobacco Use Types [...] NAME: Pavan Padilla : 1965 MEDICAL RECORD: [id number] DATE OF SERVICE: 01/14/2018 REFERRING PHYSICIAN: Garth Marroquin DO PRIMARY CARE PHYSICIAN: Garth Berg MD (Inactive) Reason for Consultation: PULMONARY NODULE Chief Complaint: I'm here about the spot on my lung UPDATED phone number: [phone] History of Present Illness: Mr. Pavan Padilla [...] he was actually evaluated by Pulmonology in [place] a few months ago. He was evaluated by Dr. Troy Ray ([facility]) on 11/02/17 in their nodule clinic. It was at this appointment that the 10/2017 CT chest was obtained. He did not follow up with [facility] following completion of the 10/2017 CT chest. 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 [...] pulmonary nodule(s). It is reported by the [facility] radiologist to measure 2 CM across in total from the 10/2017 CT chest as compared to the initial 0.8 CM solid vs part-solid lesion seen on a 2015CT abdomen (1.0 CM x 0.9 CM on my measurements). The 2014 report from [facility] also mentions similar findings dating back [...] after PET/CT ?? All missing imaging from [facility] have been requested ?? Smoking cessation discussed in depth; continue nicotine replacement therapies ?? Remainder of plan as noted above ?? Note to be sent to Garth Berg MD (Inactive) ?? Follow-up with me for potential bronchoscopy with EBUS following the PET/CT Closest Hospital: [facility]; he is [place] from [facility] Amando Robins MD, 01/15/2018, 8:30 AM Pulmonary & Critical Care Pager: [phone] documented in this encounter Plan of Treatment [...] node staging TECHNIQUE: Following IV injection of 55-dlxkda-0-deoxyglucose (FDG) a standard uptake of approximately 60 [...] lymph nodestaging TECHNIQUE: Following IV injection of 37-untvxb-1-deoxyglucose (FDG) astandard uptake of approximately 60 minutes, [...] nodule documented in this encounter Care Teams Head Up Operator Relationship Specialty Start Date End Date Unknown None PCP - General 01/15/18 01/21/18 documented as of this encounter
--- OUTSIDE RECORDS SUMMARY | 2023-12-22 15:15 | XMS_ITS | Encounter Summary ---
Author Organization Formerly [facility] [place] [address] Care Team Providers Care Boot Liner Maker Name Role Phone None Primary Care Provider Unavailabl e Reason for Referral * Diagnostic Test (Routine) - Specialty Diagnoses / Procedures Referred By Edis grossman Referred To Contact Radiology Diagnoses Pulmonary nodule Procedures CT Chest Screening Lung Cancer Ector Garcia MD [facility] [place] [address] [facility] [place] [address] Referral ID Status Reason Start Date Expiration Date Visits Requested Visits Authorized [id number] Specialty Service Requested 11/22/2018 11/22/2019 1 1 Reason for Visit * Reason Comments Follow-up Encounter Details Date Type Department Care Team ([facility] st Contact Info) Description 11/22/2018 10:00 AM EDT [place] [address] Ector Garcia MD [facility] [place] [address] Pulmonary nodule Social History Tobacco Use [...] Garcia MD - 11/22/2018 10:00 AM EDT [facility] Section of Pulmonary Medicine Outpatient Progress Note [...] MD Pulmonary and Critical Care Medicine Pager #[phone] documented in this encounter Plan of Treatment [...] TECHNIQUE: Noncontrast, low-dose chest CT (LDCT) per [facility] lung cancer screening protocol. COMPARISON: [...] TECHNIQUE: Noncontrast, low-dose chest CT (LDCT) per [facility] lung cancerscreening protocol. COMPARISON: 11/22/2018 [...] nodule documented in this encounter Care Teams Boot Liner Maker Relationship Specialty Start Date End Date None None PCP - General 01/22/18 03/01/20 documented as of this encounter
--- OUTSIDE RECORDS SUMMARY | 2023-12-22 15:15 | XMS_ITS | Encounter Summary ---
Author Organization Formerly [facility], [facility] Address [facility] [place] [address] Care Team Providers Care Financial Market Dealer Name Role Phone Garth Berg MD Primary Care Provider [phone] Encounter Details Date Type Department Care Team (Latest Contact Info) Description 12/16/2017 - 12/16/2017 11:59 PM EDT Hospital Encounter Radiology Library at [facility] [place] [address] Backer, Amando Rentreia MD [facility] [place] [address] Discharge Disposition: Home Social History Tobacco Use [...] & Pelvis (12/16/2017 12:00 AM EDT) Narrative RAD - 01/14/2018 11:48 AM EST This exam is for storage only and is auto-finalizing. Amando Robins MD IMG FILM LIBRARY ORD ERABLES [place], [place] documented in this encounter Visit Diagnoses Not on filedocumented in this encounter Care Teams Financial Market Dealer Relationship Specialty Start Date End Date Garth Berg MD [address] [place] [address] PCP - General General Internal Medicine 03/02/17 documented as of this encounter
--- OUTSIDE RECORDS SUMMARY | 2023-12-22 15:15 | XMS_ITS | Encounter Summary ---
Author Organization [facility] [place] [address] Care Team Providers Care Certified Low Vision Therapist Name Role Phone None Primary Care Provider Unavailabl e Encounter Details Date Type Department Care Team (Late st Contact Info) Description 12/19/2019 3:00 PM EST TH Visit (TeleHealth) [place] [phone] Mary Alice Nesbitt MD [facility] [place] [address] Tobacco abuse Social History Tobacco Use Types [...] from the original note were not included. [facility] Section of Pulmonary and Critical [...] number below. Electronically signed by: Salud Beltran [facility] ([phone]), at 11/22/2018 9:47 AM Pulmonary Function Tests: [...] or questions arise. Mary Alice Nesbitt MD Program Management ManagerMetal Mixer Pulmonary [place] [address] documented in this encounter Plan of Treatment Not on file documented as of this encounter Visit Diagnoses Diagnosis Tobacco abuse Tobacco use disorder documented in this encounter Care Teams Certified Low Vision Therapist Relationship Specialty Start Date End Date None None PCP - General 01/22/18 03/01/20 documented as of this encounter
--- OUTSIDE RECORDS SUMMARY | 2023-12-22 15:15 | XMS_ITS | Encounter Summary ---
Author Organization Formerly [facility] [place] [address] Care Team Providers Care Heart Surgeon Name Role Phone Garth Marroquin DO Primary Care Provider [phone] Encounter Details Date Type Department Care Team (Late st Contact Info) Description 09/17/2020 External Results Weight and Wellness at [facility] [address] [place] [phone] Emilie Galvan, RN Social History Tobacco Use [...] Procedure Name Priority Date/Time Associated Diagnosis Comments [facility] EXTERNAL RESULT PANEL Routine 04/23/2020 [...] Basophil % 1.0 Immature Gran % 2.1 Neutrophil Absolute (ANC) - Automated 4.63 Lymph Absolute Manual 1.58 Monocyte Abs 0.69 Eos Absolute Manual 0.16 Baso Absolute Manual 0.07 Blood 04/23/2020 Historical Provider HEMATOLOGY ORDERA BLES * (ABNORMAL) [facility] External Results (04/23/2020) Blood Urea Nitrogen 16(Beam Dyer Recessed Vat al Lab) Creatinine 1.2(Exter nal Lab) Sodium 137(Exter nal Lab) Potassium 3.9(Exter nal Lab) Chloride 103(Exter nal Lab) Carbon Dioxide 24(Beam Dyer Recessed Vat al Lab) Anion Gap 10(Beam Dyer Recessed Vat al Lab) Calcium 8.8(Exter nal Lab) Protein, Total 7.2(Exter nal Lab) Albumin 3.7(Exter nal Lab) Aspartate Aminotransferase 19(Beam Dyer Recessed Vat al Lab) Alanine Aminotransferase 39(Beam Dyer Recessed Vat al Lab) Alkaline Phosphatase 91(Beam Dyer Recessed Vat al Lab) Bilirubin, Total 0.4(Exter nal Lab) Est Glomerular Filtration Rate >60(Exter nal Lab) Thyroid Stimulating Hormone 1.26(Exte rnal Lab) Glucose 162(ExtH) Troponin-T 0.05(Exte rnal Lab) D-Dimer 354(Exter nal Lab) Lactic Acid 1.6(ExtH) 04/23/2020 Historical Provider POINT OF CARE KENNEY T ORDERABLES documented in this encounter Visit Diagnoses Not on filedocumented in this encounter Care Teams Heart Surgeon Relationship Specialty Start Date End Date Garth Marroquin DO [address] [place] [address] PCP - General Family Medicine 03/02/20 06/19/21 documented as of this encounter
--- OUTSIDE RECORDS SUMMARY | 2023-12-22 15:15 | XMS_ITS | Encounter Summary ---
Author Organization Formerly [facility] Address [facility] [place] [address] Care Team Providers Care Anesthetist Name Role Phone Garth Berg MD Primary Care Provider [phone] Encounter Details Date Type Department Care Team (Latest Contact Info) Description 01/14/2018 11:48 AM [facility] - 01/14/2018 11:59 PM [facility] Hospital Encounter Radiology Library [place] [address] Backer, Amando Renteria MD [facility] [place] [address] Discharge Disposition: Home Social History Tobacco Use [...] DX Chest (01/14/2018 11:48 AM EST) Narrative [facility] CHEW - 01/14/2018 11:48 AM EST This exam is for storage only and is auto-finalizing. Amando Robins MD [facility] FILM LIBRARY ORD ERABLES [place], [place] documented in this encounter Visit Diagnoses Not on filedocumented in this encounter Care Teams Anesthetist Relationship Specialty Start Date End Date Garth Berg MD [address] [place] [address] PCP - General General Internal Medicine 03/02/17 documented as of this encounter
--- OUTSIDE RECORDS SUMMARY | 2023-12-22 15:15 | XMS_ITS | Encounter Summary ---
[place] [address] Care Team Providers Care Aggregate Conveyor Operator Name Role Phone None Primary Care Provider Unavailabl e Reason for Referral * Diagnostic Test (Routine) - Closed Specialty Diagnoses / Procedures Referred By Contac t Referred To Contact Radiology Diagnoses Pulmonary nodule Procedures CT Chest wo Contrast (Generic) Amando Robins MD [facility] [place] [address] [facility] [place] [address] Referral ID Status Reason Start Date Expiration Date V isits Requested Visits Authorized [id number] Closed Specialty Service Requested 01/22/2018 01/22/2019 1 1 Reason for Visit * Diagnostic Test (Routine) - Closed Specialty Diagnoses / Procedures Referred By Contac t Referred To Contact Radiology Diagnoses Pulmonary nodule Procedures CT Chest wo Contrast (Generic) Amando Robins MD [facility] [place] [address] [facility] [place] [address] Referral ID Status Reason Start Date Expiration Date V isits Requested Visits Authorized [id number] Closed Specialty Service Requested 01/22/2018 01/22/2019 1 1 Encounter Details Date Type Department Care Team (Latest Contact Info) Description 11/22/2018 7:44 AM EDT - 11/22/2018 11:59 PM EDT Hospital Encounter CT Scan at [facility] [place] [address] Amando Robins MD [facility] [place] [address] Pulmonary nodule Discharge Disposition: Home Social History [...] nodule documented in this encounter Care Teams Aggregate Conveyor Operator Relationship Specialty Start Date End Date None None PCP - General 01/22/18 03/01/20 documented as of this encounter
--- OUTSIDE RECORDS SUMMARY | 2023-12-22 15:15 | XMS_ITS | Encounter Summary ---
Author Organization [facility] [place] [facility] [place] [address] Care Team Providers Care Heel Sorter Name Role Phone None Primary Care Provider Unavailabl e Reason for Referral * Diagnostic Test (Routine) - Closed Specialty Diagnoses / Procedures Referred By Edis grossman Referred To Contact Radiology Diagnoses Pulmonary nodule Procedures CT Chest wo Contrast (Generic) Amando Robins MD [facility] [place] [address] [facility] [place] [address] Referral ID Status Reason Start Date Expiration Date V isits Requested Visits Authorized [id number] Closed Specialty Service Requested 01/22/2018 01/22/2019 1 1 Encounter Details Date Type Department Care Team ([facility] st Contact Info) Description 01/22/2018 Telephone [place] [address] Amando Robins MD [facility] [place] [address] Social History Tobacco Use Types [...] 11:22 AM Pulmonary & Critical Care Pager: [phone] documented in this encounter Plan of Treatment [...] nodule documented in this encounter Care Teams Heel Sorter Relationship Specialty Start Date End Date None None PCP - General 01/22/18 03/01/20 documented as of this encounter
--- OUTSIDE RECORDS SUMMARY | 2023-12-22 15:15 | XMS_ITS | Encounter Summary ---
Author Organization Formerly [facility] [place] [address] Care Team Providers Care Precision Dyer Name Role Phone None Primary Care Provider Unavailabl e Encounter Details Date Type Department Care Team (Late st Contact Info) Description 11/18/[address] [facility] [place] [phone] Anna Joe LNA Social History Tobacco Use [...] video visit. Pt states he told the silk screen painter when he scheduled and the MA that called him that he doesn't have a computer and can't do video visit. Rescheduled pt for 12/18 for phone visit with Dr. Nesbitt. documented in this encounter Plan of Treatment Not on file documented as of this encounter Visit Diagnoses Not on filedocumented in this encounter Care Teams Precision Dyer Relationship Specialty Start Date End Date None None PCP - General 01/22/18 03/01/20 documented as of this encounter
--- OUTSIDE RECORDS SUMMARY | 2023-12-22 15:15 | XMS_ITS | Encounter Summary ---
Author Organization [facility] [place] [address] Care Team Providers Care Roller Cleaner Name Role Phone Unknown Primary Care Provider Unavailabl e Encounter Details Date Type Department Care Team (Late st Contact Info) Description 01/15/2018 [place] [phone] Gisela Escamilla Social History Tobacco Use Types [...] on filedocumented in this encounter Care Teams Roller Cleaner Relationship Specialty Start Date End Date Unknown None PCP - General 01/15/18 01/21/18 documented as of this encounter
--- OUTSIDE RECORDS SUMMARY | 2023-12-22 15:15 | XMS_ITS | Encounter Summary ---
Author Organization [place] [id number] Care Team Providers Care Press Operator Name Role Phone None Primary Care Provider Unavailabl e Reason for Referral * Diagnostic Test (Routine) - Closed Specialty Diagnoses / Procedures Referred By Contac t Referred To Contact Radiology Diagnoses Pulmonary nodule Procedures PET CT Standard Skull Base to Mid-Thigh Amando Robins MD [facility] [place] [address] [place] [address] Referral ID Status Reason Start Date Expiration Date V isits Requested Visits Authorized [id number] Closed Specialty Service Requested 01/15/2018 01/15/2019 1 1 Reason for Visit * Diagnostic Test (Routine) - Closed Specialty Diagnoses / Procedures Referred By Contac t Referred To Contact Radiology Diagnoses Pulmonary nodule Procedures PET CT Standard Skull Base to Mid-Thigh Amando Robins MD [facility] [place] [address] [place] [address] Referral ID Status Reason Start Date Expiration Date V isits Requested Visits Authorized [id number] Closed Specialty Service Requested 01/15/2018 01/15/2019 1 1 Encounter Details Date Type Department Care Team (Latest Contact Info) Description 01/22/2018 6:21 AM EST - 01/22/2018 11:59 PM [facility] Hospital Encounter Nuclear Medicine at [facility] [place] [address] Amando Robins MD [facility] [place] [address] Pulmonary nodule Discharge Disposition: Home Social History [...] node staging TECHNIQUE: Following IV injection of 69-ixbxfa-1-deoxyglucose (FDG) a standard uptake of approximately 60 [...] lymph nodestaging TECHNIQUE: Following IV injection of 91-trkekg-5-deoxyglucose (FDG) astandard uptake of approximately 60 minutes, [...] Glucose, POC 136 65 - 199 mg/dL [facility] Comment: Supplemental ranges: <140 mg/dL before meals <180 mg/dL all other times of the day Blood specimen (specimen) 01/22/2018 6:45 AM EST 01/22/2018 6:45 AM EST Amando Robins MD POINT OF CARE TEST O RDERABLES [facility] [place] [address] documented in this encounter Visit Diagnoses Diagnosis Pulmonary nodule Solitary pulmonary nodule documented in this encounter Care Teams Press Operator Relationship Specialty Start Date End Date None None PCP - General 01/22/18 03/01/20 documented as of this encounter
--- OUTSIDE RECORDS SUMMARY | 2023-12-22 15:15 | XMS_ITS | Encounter Summary ---
Author Organization [facility] [place] [address] Care Team Providers Care Upset Welding Machine Operator Name Role Phone None Primary Care Provider Unavailabl e Reason for Visit * Diagnostic Test (Routine) - Closed Specialty Diagnoses / Procedures Referred By Edis grossman Referred To Contact Radiology Diagnoses Pulmonary nodule Procedures PET CT Standard Skull Base to Mid-Thigh Amando Robins MD [facility] [place] [address] [place] [address] Referral ID Status Reason Start Date Expiration Date V isits Requested Visits Authorized [id number] Closed Specialty Service Requested 01/15/2018 01/15/2019 1 1 Encounter Details Date Type Department Care Team (Latest Contact Info) Description 01/22/2018 6:21 AM EST - 01/22/2018 11:59 PM [facility] Hospital Encounter [place] [address] Amando Robins MD [facility] [place] [address] Discharge Disposition: Home Social History [...] mCi documented in this encounter Care Teams Upset Welding Machine Operator Relationship Specialty Start Date End Date None None PCP - General 01/22/18 03/01/20 documented as of this encounter
--- OUTSIDE RECORDS SUMMARY | 2023-12-22 15:15 | XMS_ITS | Encounter Summary ---
Author Organization [facility] Address [facility] [place] [address] Care Team Providers Care Sql Report Developer Name Role Phone Unknown Primary Care Provider Unavailabl e Encounter Details Date Type Department Care Team (Latest Contact Info) Description 01/15/2018 8:28 AM EST - 01/15/2018 11:59 PM EST Hospital Encounter Pulmonology at [facility] [place] [place] [address] Pulmonary nodule Discharge Disposition: Home Social History [...] nodule documented in this encounter Care Teams Sql Report Developer Relationship Specialty Start Date End Date Unknown None PCP - General 01/15/18 01/21/18 documented as of this encounter
--- OUTSIDE RECORDS SUMMARY | 2023-12-22 15:15 | XMS_ITS | Encounter Summary ---
Author Organization [facility] [place] [address] Care Team Providers Care Educational Technologist Name Role Phone None Primary Care Provider Unavailabl e Encounter Details Date Type Department Care Team (Late st Contact Info) Description 11/15/2019 [place] [phone] Eva Morin, DRESS CUTTER Social History Tobacco Use Types Packs/Day Years [...] Morin - 11/15/2019 2:50 PM EDT 5C Vulnerability Assessment Analyst Pre-Telemedicine Phone Note [] Patient not reached [...] on filedocumented in this encounter Care Teams Educational Technologist Relationship Specialty Start Date End Date None None PCP - General 01/22/18 03/01/20 documented as of this encounter
--- OUTSIDE RECORDS SUMMARY | 2023-12-22 15:15 | XMS_ITS | Encounter Summary ---
[place] [address] Care Team Providers Care Brazing Furnace Feeder Name Role Phone Garth Berg MD Primary Care Provider [phone] Encounter Details Date Type Department Care Team (Late st Contact Info) Description 01/05/2018 Telephone [place] [address] Gisela Escamilla Social History Tobacco Use Types [...] on filedocumented in this encounter Care Teams Brazing Furnace Feeder Relationship Specialty Start Date End Date Garth Berg MD [address] [place] [address] PCP - General General Internal Medicine 03/02/17 documented as of this encounter
--- OUTSIDE RECORDS SUMMARY | 2023-12-22 15:15 | XMS_ITS | Encounter Summary ---
Author Organization [facility] Address [facility] [place] [address] Care Team Providers Care Sourcing Manager Name Role Phone Garth Berg MD Primary Care Provider [phone] Encounter Details Date Type Department Care Team (Latest Contact Info) Description 11/06/2017 - 11/06/2017 11:59 PM EDT Hospital Encounter Radiology Library at [facility] [place] [address] Garth Marroquin, DO [address] [place], [place] [address] Discharge Disposition: Home Social History Tobacco Use [...] CT Chest (11/06/2017 12:00 AM EDT) Narrative [facility] - 12/21/2017 10:06 AM EST This exam is for storage only and is auto-finalizing. Garth Marroquin DO [facility] FILM LIBRARY ORD ERABLES [place], [place] documented in this encounter Visit Diagnoses Not on filedocumented in this encounter Care Teams Sourcing Manager Relationship Specialty Start Date End Date Garth Berg MD [address] [place] [address] PCP - General General Internal Medicine 03/02/17 documented as of this encounter
--- OUTSIDE RECORDS SUMMARY | 2023-12-22 15:16 | XMS_ITS | Encounter Summary ---
Author Organization [facility] [place] [address] Care Team Providers Care Diamond Sizer And Grader Name Role Phone Judd Scott MD Primary Care Provider [phone] Encounter Details Date Type Department Care Team (Latest Contact Info) Description 05/29/2014 - 05/29/2014 11:59 PM EDT Hospital Encounter Radiology Library at [facility] [place] [address] Amando Robins MD [facility] PULMONARY [place] [address] Discharge Disposition: Home Social History Tobacco Use [...] & Pelvis (05/29/2014 12:00 AM EDT) Narrative [facility] - 01/14/2018 11:46 AM EST This exam is for storage only and is auto-finalizing. Amando Robins MD [facility] FILM LIBRARY ORD ERABLES [place], [place] documented in this encounter Visit Diagnoses Not on filedocumented in this encounter Care Teams Diamond Sizer And Grader Relationship Specialty Start Date End Date Judd Scott MD PCP - General 01/08/10 03/01/17 documented as of this encounter
--- OUTSIDE RECORDS SUMMARY | 2023-12-22 15:16 | XMS_ITS | Encounter Summary ---
Author Organization [facility] [place] [address] Care Team Providers Care Thermometer Maker Name Role Phone Judd Scott MD Primary Care Provider [phone] Encounter Details Date Type Department Care Team (Late st Contact Info) Description 08/16/2013 Orders [place] [address] Warren He MD [facility] [place] [address] Social History Tobacco Use Types Packs/Day Years [...] is a Non-reportable exam Warren He MD [facility] [place] [place] FILM LIBRARY ORD ERABLES documented in this encounter Visit Diagnoses Not on filedocumented in this encounter Care Teams Thermometer Maker Relationship Specialty Start Date End Date Judd Scott MD PCP - General 01/08/10 03/01/17 documented as of this encounter
--- OUTSIDE RECORDS SUMMARY | 2023-12-22 15:16 | XMS_ITS | Encounter Summary ---
[place] [address] Care Team Providers Care Engraver Seals Name Role Phone Judd Scott MD Primary Care Provider [phone] Reason for Visit * Reason Onset Date Comments Referral 01/23/2014 Encounter Details Date Type Department Care Team (Late st Contact Info) Description 01/23/2014 Telephone [place] [phone] Svetlana Frey Referral Social History Tobacco Use [...] Name: Pavanthuy Padilla : 1965 Phone number: [phone] (home) Mailing address: [address] [facility] [address] Age: 48 y.o. Appointment date: 2ND OPINION [...] When? Where? Notes: [address] SCHERER PH:[phone] [place], [place] PH: [phone] FAX: [phone] 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 When? Where? Who? Notes: [facility] [address] SCHERER PH:[phone] DR. SCHERER Have you had any surgeries [...] on filedocumented in this encounter Care Teams Engraver Seals Relationship Specialty Start Date End Date Judd Scott MD PCP - General 01/08/10 03/01/17 documented as of this encounter
--- OUTSIDE RECORDS SUMMARY | 2023-12-22 15:16 | XMS_ITS | Encounter Summary ---
Author Organization [facility] Address [facility] [place] [address] Care Team Providers Care Supervisor Paint Name Role Phone Gatrh Berg MD Primary Care Provider [phone] Encounter Details Date Type Department Care Team (Latest Contact Info) Description 03/19/2017 - 03/19/2017 11:59 PM [facility] Hospital Encounter Radiology Library at [facility] [place] [address] Jose Olivares MD [facility] [place] [address] Discharge Disposition: Home Social History Tobacco Use [...] DX Chest (03/19/2017 12:00 AM EST) Narrative [facility] - 03/20/2017 12:46 PM EST This exam is for storage only and is auto-finalizing. Jose Olivares MD IMG FILM LIBRARY ORD ERABLES [place], [place] documented in this encounter Visit Diagnoses Not on filedocumented in this encounter Care Teams Supervisor Paint Relationship Specialty Start Date End Date Garth Berg MD [address] [place] [address] PCP - General General Internal Medicine 03/02/17 documented as of this encounter
--- OUTSIDE RECORDS SUMMARY | 2023-12-22 15:16 | XMS_ITS | Encounter Summary ---
Author Organization [facility] [address] Care Team Providers Care Remarketing Rep Name Role Phone Judd Scott MD Primary Care Provider [phone] Encounter Details Date Type Department Care Team (Late st Contact Info) Description 05/22/2011 Orders Only Hematology Oncology at [address] [phone] Jm Meyer MD [address] [place] [id number] Social History Tobacco Use Types Packs/Day Years [...] on filedocumented in this encounter Care Teams Remarketing Rep Relationship Specialty Start Date End Date Judd Scott MD PCP - General 01/08/10 03/01/17 documented as of this encounter
--- OUTSIDE RECORDS SUMMARY | 2023-12-22 15:16 | XMS_ITS | Encounter Summary ---
[place] [address] Care Team Providers Care Gravity Meter Operator Name Role Phone Judd Scott MD Primary Care Provider [phone] Reason for Visit * Reason Onset Date Comments Referral 03/01/2014 Encounter Details Date Type Department Care Team (Late st Contact Info) Description 03/01/2014 [place] [phone] Faiza Kline Referral Social History Tobacco Use [...] Received 12 pages of office notes from [facility], for the patients upcoming appointment. [...] on filedocumented in this encounter Care Teams Gravity Meter Operator Relationship Specialty Start Date End Date Judd Scott MD PCP - General 01/08/10 03/01/17 documented as of this encounter
--- OUTSIDE RECORDS SUMMARY | 2023-12-22 15:16 | XMS_ITS | Encounter Summary ---
[place] [address] Care Team Providers Care Assistant Cross Country Coach Name Role Phone Garth Berg MD Primary Care Provider [phone] Encounter Details Date Type Department Care Team (Late st Contact Info) Description 03/20/2017 External [place] [address] Social History Tobacco Use Types Packs/Day Years [...] filedocumented in this encounter Care Teams Assistant Cross Country Coach Relationship Specialty Start Date End Date Garth Berg MD [address] [place] [address] PCP - General General Internal Medicine 03/02/17 documented as of this encounter
--- OUTSIDE RECORDS SUMMARY | 2023-12-22 15:16 | XMS_ITS | Encounter Summary ---
Author Organization [facility] [place] [address] Care Team Providers Care Recreation Clerk Name Role Phone Judd Scott MD Primary Care Provider [phone] Encounter Details Date Type Department Care Team (Late st Contact Info) Description 03/17/2014 Orders [place] [address] Yuri Lao MD [facility] [place] [address] Bilateral foot pain (Primary Dx) Social History [...] limb documented in this encounter Care Teams Recreation Clerk Relationship Specialty Start Date End Date Judd Scott MD PCP - General 01/08/10 03/01/17 documented as of this encounter
--- OUTSIDE RECORDS SUMMARY | 2023-12-22 15:16 | XMS_ITS | Encounter Summary ---
Author Organization [facility] [place] [address] Care Team Providers Care Roof Truss Detailer Name Role Phone Garth Berg MD Primary Care Provider [phone] Reason for Visit * Auth/Cert Specialty Diagnoses / Procedures Referred By Contac t Referred To Contact Diagnoses Unstable angina [place] ?CAD Procedures CARDIAC CATHETERIZATION Referral ID Status Reason Start Date Expiration Date Visits Re quested Visits Authorized [id number] 1 1 Encounter Details Date Type Department Care Team (Late st Contact Info) Description 03/20/2017 4:00 PM EST - 03/20/2017 5:00 PM EST Surgery [place] [address] Fantasma Rubalcava MD [facility] [place] [address] CARDIAC CATHETERIZATION Social History Tobacco Use Types [...] Mannie Padilla Patient Age: 51 y.o. Language: Kosovan Race: Ethnicity: Admit date: 03/20/2017 Discharge date [...] please contact your inpatient physician through the [facility] Railroad Inspector . Issues afterhours and on weekends will be handled by the ointment mill tender on-call. Discharge Diagnoses (Hospital Problems) and Secondary [...] (>100 pack years) presenting in transfer from [facility] with unstable angina. He presented to the [...] weeks. ?? Emergency contact: Gayatri Suarez - [phone] (Mother) ?? OSH labs prior to transfer: [...] up with your primary care provider and heating and ventilating drafter for further instructions on your medication regimen. Primary care follow up: To be determined Follow-Up Appointments Future Appointments Date Time Provider Department Center 04/16/2017 12:00 PM Laverne Coon MD [facility] Date and Time Provider and Specialty Location Your Inpatient Doctor(s) at [facility]: Dr. Jose West General Instructions None Future Appointments and Orders Future Appointments Provider Department Dept Phone 04/16/2017 12:00 PM Laverne Coon MD Cardiology at [place] [phone] Discharge References/Attachments None documented in this encounter [...] up with your primary care provider and heating and ventilating drafter for further instructions on your medication regimen. Primary care follow up: To be determined Follow-Up Appointments Future Appointments Date Time Provider Department Center 04/16/2017 12:00 PM Laverne Coon MD [facility] Date and Time Provider and Specialty Location Your Inpatient Doctor(s) at [facility]: Dr. Jose West documented in this encounter [...] Patient brought to [facility] via wheelchair. * Jose Olivares MD - [...] (>100 pack years) presenting in transfer from [facility] with unstable angina. Active Problems: Active Hospital [...] (>100 pack years) presenting in transfer from [facility] with unstable angina. Plan: Cardiac catheterization shows [...] He will follow-up with his PCP and heating and ventilating drafter as an outpatient. Jim West MD, PGY-1 Cardiology S1 (pgr. [id number]) CARDIOLOGY STAFF NOTE Mannie Padilla is a [...] this and is ambulatory. Jose Olivares MD, [facility] Staff Cage Fighter pager [phone] * Savita Aquilino X - 03/21/2017 12:02 [...] obtained. Family at bedside. 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 Patient returned from open hearth laborer. TR band in place. Fluids infusing [...] in the chart. Plan/ Coronary Angio per copy camera operator preference No c/i to long-term DAPT Moderate sedation MAGUI Mijares MD documented in this encounter H&P Notes * Jose Olivares MD - 03/20/2017 1:39 PM EST Cardiology Admission History and Physical Patient Name: Mannie Padilla Service: Cardiology S1 Team Responsible Attending: Jose Olivares MD PCP: Garth Berg MD PCP phone #: [phone] ID/Chief Complaint: 51 y.o. man with history [...] (>100 pack years) presenting in transfer from [facility] with unstable angina. He presented to the [...] recent weeks. Emergency contact: Gayatri Suarez - [phone] (Mother) OSH labs prior to transfer: CBC: [...] in the last 7068 hours. Invalid input(s): [id number] Heme: No results for input(s): LDH, HAPTOGLOBIN, [...] (>100 pack years) presenting in transfer from [facility] with unstable angina. He is currently without chest pain and has successfully been weaned off nitroglycerine drip. Given presentation, risk factorsand recent positive stress test, we will proceed with cardiac catheterization. Details of plan as follows. PLAN: Admit to Cardiology, S1 Team Pager # [phone] # ACS - unstable angina - Medications [...] therapies. 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 Scanning Provider MEDIA MGR SCAN EXT O RDR/RSLT * POCT Glucose (03/21/2017 11:58 AM EST) Glucose, POC 104 65 - 199 mg/dL [facility] Comment: Supplemental ranges: <140 mg/dL before meals <180 mg/dL all other times of the day Blood specimen (specimen) 03/21/2017 11:58 AM EST 03/21/2017 11:58 AM EST Jose Olivares MD POINT OF CARE TEST O DEANN Performing Organization Address City/[facility]/ZIP Co de Phone Number [facility] [place] [address] * POCT Glucose (03/21/2017 7:39 AM EST) Glucose, POC 127 65 - 199 mg/dL [facility] Comment: Supplemental ranges: <140 mg/dL before meals <180 mg/dL all other times of the day Blood specimen (specimen) 03/21/2017 7:39 AM EST 03/21/2017 7:39 AM EST Jose Olivares MD POINT OF CARE TEST O RDERABLES [facility] [place] [address] * Magnesium (03/21/2017 5:07 AM EST) Magnesium 0.89 0.69 - 1.07 mmol/L [facility] Blood specimen (specimen) Venous Draw / Unknown 03/21/2017 5:07 AM EST 03/21/2017 5:30 AM EST Narrative Resulting Agency Comment Spec In Lab Jim West MD CHEMISTRY SALO SALGADO [facility] [place] [address] * (ABNORMAL) Basic Metabolic Panel (non-fasting) (03/21/2017 5:07 AM EST) Glucose 121 65 - 199 mg/dL [facility] Comment:Diabetes: >=200 mg/d L plus symptoms Blood Urea Nitrogen 19 10 - 20 mg/dL [facility] Creatinine 1.31 0.80 - 1.50 mg/dL [facility] Sodium 139 135 - 145 mmol/L [facility] Potassium 4.0 3.5 - 5.0 mmol/L [facility] Comment: Please note: ??Patients with WBC >100,000 may have falsely elevated Potassium levels. ??For accurate Potassium quantification in these patients send serum separator tube (gold top) for subsequent determinations. ??Contact the Clinical Chemistry Laboratory if there are any questions. Chloride 103 98 - 107 mmol/L [facility] Carbon Dioxide 25 22 - 31 mmol/L [facility] Anion Gap 11 5 - 15 mmol/L [facility] Calcium 9.2 8.5 - 10.5 mg/dL [facility] Est Glomerular Filtration Rate 57(L) >=60 [facility] Comment: The reported eGFR should be multiplied by 1.2 for patients. The MDRD is not an appropriate measure of renal function for patients with body mass extremes or in patients with acute kidney failure. http://Connectipity.Isabella Oliver/DHnkdep http://Connectipity.Isabella Oliver/DHMCnkf Blood specimen (specimen) 03/21/2017 5:07 AM EST 03/21/2017 5:29 AM EST Narrative Resulting Agency Comment Spec In Lab Jose Olivares MD CHEMISTRY ORDERABLES Performing Organization Address City[facility]/ZIP Co de Phone Number [facility] [place] [address] * (ABNORMAL) Differential, Automated (03/21/2017 5:07 AM EST) Neutrophil % 57.4 % [facility] Neutrophil Absolute 4.37 1.70 - 6.10 x10(3)/mc L [facility] Lymph % 23.6 % [facility] Lymphocytes Abs 1.8 0.9 - 3.2 x10(3)/mc L [facility] Monocyte % 13.2 % [facility] Monocyte Abs 1.0(H) 0.3 - 0.9 x10(3)/mc L [facility] Eos % 3.2 % [facility] Eosinophils Abs 0.2 0.0 - 0.4 x10(3)/ L [facility] Basophil % 1.2 % [facility] Baso Absolute 0.1 0.0 - 0.1 x10(3)/mc L [facility] Immature Gran % 1.40 % [facility] Comment: Immature granulocytes(IG's)percentage and absolute count will include metamyelocytes, myelocytes, and promyelocytes. Blood smears from CBCs yielding IG's will be scanned manually for concordance. If this scan disagrees with the automated IG or if promyelocytes are noted, a manual differential will be performed. Immature Gran Absolute 0.11(H) 0.00 - 0.04 x10(3)/mc L [facility] Blood specimen (specimen) 03/21/2017 5:07 AM EST 03/21/2017 5:28 AM EST Narrative Resulting Agency Comment Spec In Lab Noelle Hearn MD HEMATOLOGY ORDERABLE S Performing Organization Address City/[facility]/ZIP Co de Phone Number [facility] [place] [address] * Hemogram (03/21/2017 5:07 AM EST) White Blood Cell 7.6 4.0 - 9.5 x10(3)/[facility] Red Blood Cell 4.83 4.58 - 5.54 x10(6)/[facility] Hemoglobin 14.6 13.7 - 16.5 gm/dL [facility] Hematocrit 43.1 40.5 - 48.5 % [facility] Mean Cell Volume 89.2 82.9 - 93.1 fL [facility] Mean Cell Hemoglobin 30.2 27.5 - 32.1 pg [facility] Mean Cell Hemoglobin Concentration 33.9 32.0 - 35.7 gm/dL [facility] Platelet 200 145 - 357 x10(3)/[facility] RDW Standard Deviation 42.4 36.0 - 45.0 [facility] RDW coefficient of variation 12.9 11.4 - 13.8 % [facility] Mean Platelet Volume 10.5 7.6 - 12.9 [facility] NRBC% auto 0.0 % [facility] NRBC Absolute 0.000 0.000 - 0.000 x10(3)/[facility] Blood specimen (specimen) 03/21/2017 5:07 AM EST 03/21/2017 5:28 AM EST Narrative Resulting Agency Comment Spec In Lab Noelle Hearn MD HEMATOLOGY ORDERABLE S [facility] [place] [address] * (ABNORMAL) Hemoglobin A1c (03/21/2017 5:07 AM EST) Hemoglobin A1c 6.0(H) 4.3 - 5.6 % [facility] Comment: Reference Range: 4.3 [...] Mellitus, Diabetes Care 2013; 36: Suppl. 1, O97-29 Estimated Average Glucose 126 mg/dL [facility] Comment: eAG equivalents for [...] into estimated average glucose values. ??Diabetes Care 2008:31(8):8121-8129. Blood specimen (specimen) 03/21/2017 5:07 AM EST 03/21/2017 5:29 AM EST Narrative Resulting Agency Comment Spec In Lab Jose Olivares MD CHEMISTRY ORDERABLES [facility] [place] [address] * (ABNORMAL) Lipid Panel (03/21/2017 5:07 AM EST) Cholesterol, Total 129 <=239 mg/dL [facility] Triglyceride 330(H) <=199 mg/dL [facility] HDL Cholesterol 22(L) >=40 mg/dL [facility] LDL Cholesterol 41 <=190 mg/dL [facility] Cholesterol/HDL Ratio 5.9 ratio [facility] Lipid Interpretation See Note [facility] Comment: Lipid management should be guided by a patient? s ASCVD risk, goals and preferences. ACC/AHA Guidelines recommend high intensity statin if clinical ASCVD or LDL greater than or equal to 190 mg/dL. http://Connectipity.com/KJD-WDA-Ufaukzuwq Adults aged 40-75 with LDL 70-189 mg/dL should have their 10 year ASCVD risk estimated with the ACC/AHA ASCVD risk injection machine operator http://tools.acc.org/KSZBX-Mhcy-Yaamrflza/ Statin should be discussed if risk greater [...] In Lab Jose Olivares MD CHEMISTRY ORDERABLES [facility] [place] [address] * POCT Glucose (03/20/2017 8:06 PM EST) Glucose, POC 125 65 - 199 mg/dL [facility] Comment: Supplemental ranges: <140 mg/dL before meals <180 mg/dL all other times of the day Blood specimen (specimen) 03/20/2017 8:06 PM EST 03/20/2017 8:06 PM EST Jose Olivares MD POINT OF CARE TEST O RDERABLES [facility] [place] [place] [address] * CARDIAC CATHETERIZATION (03/20/2017 5:15 PM EST) Anatomical Region Laterality Modality Other Narrative 03/20/2017 5:30 PM EST ?[facility] ? Cardiac Catheterization/Intervention Report ? Patient Name: , Mannie D. ? Procedure Date: 03/20/2017 ? A #: [id number] ? Primary Physician: Fantasma Rubalcava ? Case #: [id number] ? File Name: [id number] ? Catheterization Order Number: [id number] ? [facility] ? Final Report [place], [place] ? Patient Name: ? Mannie D. Merchant ? ID#: ?[id number] ? : ?1965 ? Procedure Date: ? [...] presented with: unstable angina (w/i 60 days). [place] ?Cardiovascular Society angina class was III. This [...] Fantasma Rubalcava MD - 03/27/[address] [facility] Cardiac Catheterization/Intervention Report Patient Name: Mannie Padilla Procedure Date: 03/20/2017 A #: [id number] Primary Physician: Fantasma Rubalcava Case #: [id number] File Name: [id number] Catheterization Order Number: [id number] [facility] FinalReport [place], [place] Patient Name: Mannie Padilla ID#:[id number] :1965 Procedure Date: March 20, 2017 Case [...] presented with: unstable angina (w/i 60 days). [place] Cardiovascular Society angina class was III. This [...] CONTRAST (03/20/2017 4:44 PM EST) EF 65 [employer] Anatomical Region Laterality Modality Other 03/20/2017 Narrative 03/20/2017 4:57 PM EST Procedure: ?Transthoracic Echocardiogram Patient: ?MERCHANT MANNIE Renteria ?? (Age): 1965(51y) Med Rec#: ? [id number] ?Sex: ?M ? Site Loc: ? [facility] ?Ht / Wt: ??170(cm)/106(kg) Pt. Loc: ?Adult Floor ? BSA: ?2.16 Study Date: ?? 03/20/2017 ?Pt. Type: Inpatient Tape: ? 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 MV deceleration [id number] ?msec ? MV A-wave Vmax ?1 ?m/sec [...] ? Mid-Inferior ?Normal ? Mid-Inferoseptal ?Normal ? [place]-Septal ? Normal ? [place]-Anterior ? Normal ? [place]-Lateral ?Normal ? [place]-Inferior ? Normal ? [place]-Tip ?Normal ? This report has been electronically signed by: Micheal Kent MD ? 03/20/2017 16:56:45 Images reviewed and interpretation verified [facility] Cardiac Ultrasound [facility] Procedure Note Micheal Kent MD - 03/20/2017 Procedure: Transthoracic Echocardiogram Patient: MERCHANT JENSENORE D (Age): 1965(51y) Med Rec#: [id number] Sex: M Site Loc: [facility] Ht / Wt: 170(cm)/106(kg) Pt. Loc: Adult Floor BSA: 2.16 Study Date: 03/20/2017 Pt. 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) [...] MV E-wave Vmax 0.8 m/sec MV deceleration [id number] msec MV A-wave Vmax 1 m/sec MV [...] Normal Mid-Posterolateral Normal Mid-Inferior Normal Mid-Inferoseptal Normal [place]-Septal Normal [place]-Anterior Normal [place]-Lateral Normal [place]-Inferior Normal [place]-Tip Normal This report has been electronically signed by: Micheal Kent MD 03/20/2017 16:56:45 Images reviewed and interpretation verified [facility] Ul[facility]ound [facility] Jose Olivares MD ECHO ORDERABLES * EKG 12 Lead (03/20/2017 3:05 PM EST) Ventricular rate 62 BPM MUSE SYSTEM Atrial Rate 62 BPM MUSE SYSTEM P-R Interval 146 ms MUSE SYSTEM QRS Duration 84 ms MUSE SYSTEM Q-T Interval 420 ms MUSE SYSTEM QTC Calculated (Bezet) 426 ms MUSE SYSTEM Calculated P [place] 14 degrees MUSE SYSTEM Calculated R [place] 25 degrees MUSE SYSTEM Calculated T [place] 27 degrees MUSE SYSTEM INTERPRETATION Normal sinus rhythm Normal ECG No previous ECGs available Confirmed by Jose Olivares MD ([id number]) on 03/20/2017 5:30:25 PM MUSE SYSTEM 03/20/2017 3:05 PM EST 03/20/2017 5:30 PM EST Jose Olivares MD ECG ORDERABLES MUSE SYSTEM * (ABNORMAL) Differential, Automated (03/20/2017 2:54 PM EST) Neutrophil % 62.3 % [facility] Neutrophil Absolute 6.48(H) 1.70 - 6.10 x10(3)/mc L [facility] Lymph % 21.8 % [facility] Lymphocytes Abs 2.3 0.9 - 3.2 x10(3)/mc L [facility] Monocyte % 10.8 % [facility] Monocyte Abs 1.1(H) 0.3 - 0.9 x10(3)/ L [facility] Eos % 2.6 % [facility] Eosinophils Abs 0.3 0.0 - 0.4 x10(3)/[facility] Basophil % 1.1 % [facility] Baso Absolute 0.1 0.0 - 0.1 x10(3)/[facility] Immature Gran % 1.40 % [facility] Comment: Immature granulocytes(IG's)percentage and absolute count will include metamyelocytes, myelocytes, and promyelocytes. Blood smears from CBCs yielding IG's will be scanned manually for concordance. If this scan disagrees with the automated IG or if promyelocytes are noted, a manual differential will be performed. Immature Gran Absolute 0.15(H) 0.00 - 0.04 x10(3)/[facility] Blood specimen (specimen) 03/20/2017 2:54 PM EST 03/20/2017 3:00 PM EST Narrative Resulting Agency Comment Spec In Lab Noelle Hearn MD HEMATOLOGY ORDERABLE S [facility] [place] [address] * (ABNORMAL) Hemogram (03/20/2017 2:54 PM EST) White Blood Cell 10.4(H) 4.0 - 9.5 x10(3)/[facility] Red Blood Cell 4.79 4.58 - 5.54 x10(6)/[facility] Hemoglobin 14.5 13.7 - 16.5 gm/dL [facility] Hematocrit 41.9 40.5 - 48.5 % [facility] Mean Cell Volume 87.5 82.9 - 93.1 fL [facility] Mean Cell Hemoglobin 30.3 27.5 - 32.1 pg [facility] Mean Cell Hemoglobin Concentration 34.6 32.0 - 35.7 gm/dL [facility] Platelet 188 145 - 357 x10(3)/mc L [facility] RDW Standard Deviation 40.9 36.0 - 45.0 fL [facility] RDW coefficient of variation 12.9 11.4 - 13.8 % [facility] Mean Platelet Volume 10.5 7.6 - 12.9 fL [facility] NRBC% auto 0.0 % [facility] NRBC Absolute 0.000 0.000 - 0.000 x10(3)/mc L [facility] Blood specimen (specimen) 03/20/2017 2:54 PM EST 03/20/2017 3:00 PM EST Narrative Resulting Agency Comment Spec In Lab Noelle Hearn MD HEMATOLOGY ORDERABLE S [facility] [place] [address] * Cardiac Enzymes (LEB/CGP) (03/20/2017 2:54 PM EST) Troponin-T <0.01 0.00 - 0.00 ng/mL [facility] Comment: The 99th percentile [...] ischemia ?? New or presumed new significant RD-okjgdri-I wave (ST-T) changes or new left bundle [...] additional sample may be indicated. Reference: Third [place] Definition of Myocardial Infarction. Journal of the [place] College of Cardiology 2012;60:1581-98 Creatine Kinase 116 0 - 200 unit/L [facility] Blood specimen (specimen) 03/20/2017 2:54 PM EST 03/20/2017 3:00 PM EST Narrative Resulting Agency Comment Spec In Lab Jose Olivares MD CHEMISTRY ORDERABLES Performing Organization Address [facility] Phone Number [facility] [place] [address] * Prothrombin Time (03/20/2017 2:54 PM EST) Prothrombin Time 13.1 11.8 - 14.0 sec [facility] International Normalization Ratio 1.0 0.9 - 1.1 [facility] Comment: An INR <2.0 [...] MD HEMATOLOGY ORDERABLE S Performing Organization Address [facility] Co de Phone Number [facility] [place] [address] * Hepatic Function Panel (03/20/2017 2:54 PM EST) Protein, Total 6.9 6.1 - 8.0 gm/dL [facility] Albumin 4.2 3.2 - 5.2 gm/dL [facility] Aspartate Aminotransferase 17 0 - 39 unit/L [facility] Alanine Aminotransferase 27 0 - 55 unit/L [facility] Alkaline Phosphatase 68 40 - 120 unit/L [facility] Bilirubin, Total 0.4 0.2 - 1.3 mg/dL [facility] Bilirubin, Direct 0.1 0.0 - 0.3 mg/dL [facility] Blood specimen (specimen) 03/20/2017 2:54 PM EST 03/20/2017 3:00 PM EST Narrative Resulting Agency Comment Spec In Lab Jose Olivares MD CHEMISTRY ORDERABLES Performing Organization Address City/[facility]/ZIP Co de Phone Number [facility] [place] [address] * pro-Brain Natriuretic Peptide (03/20/2017 2:54 PM EST) NT-proBNP 14 <=125 pg/mL [facility] Blood specimen (specimen) 03/20/2017 2:54 PM EST 03/20/2017 3:00 PM EST Narrative Resulting Agency Comment Spec In Lab Jose Olivares MD CHEMISTRY ORDERABLES Performing Organization Address City/[facility]/ZIP Co de Phone Number [facility] [place] [address] * TSH (03/20/2017 2:54 PM EST) Thyroid Stimulating Hormone 0.62 0.27 - 4.20 mlU/ML [facility] Blood specimen (specimen) 03/20/2017 2:54 PM EST 03/20/2017 3:00 PM EST Narrative Resulting Agency Comment Spec In Lab Jose Olivares MD CHEMISTRY ORDERABLES Performing Organization Address City/[facility] Co de Phone Number [facility] [place] [address] * Phosphorus (03/20/2017 2:54 PM EST) Phosphorus 3.3 2.5 - 4.5 mg/dL [facility] Blood specimen (specimen) 03/20/2017 2:54 PM EST 03/20/2017 3:00 PM EST Narrative Resulting Agency Comment Spec In Lab Jose Olivares MD CHEMISTRY ORDERABLES Performing Organization Address [facility] Co de Phone Number [facility] [place] [address] * Magnesium (03/20/2017 2:54 PM EST) Magnesium 0.85 0.69 - 1.07 mmol/L [facility] Blood specimen (specimen) 03/20/2017 2:54 PM EST 03/20/2017 3:00 PM EST Narrative Resulting Agency Comment Spec In Lab Jose Olivares MD CHEMISTRY ORDERABLES Performing Organization Address [facility] [facility] Co de Phone Number [facility] [place] [place] [address] * Basic Metabolic Panel (non-fasting) (03/20/2017 2:54 PM EST) Glucose 90 65 - 199 mg/dL [facility] Comment:Diabetes: >=200 mg/d L plus symptoms Blood Urea Nitrogen 19 10 - 20 mg/dL [facility] Creatinine 1.22 0.80 - 1.50 mg/dL [facility] Sodium 140 135 - 145 mmol/L [facility] Potassium 3.8 3.5 - 5.0 mmol/L [facility] Comment: Please note: ??Patients with WBC >100,000 may have falsely elevated Potassium levels. ??For accurate Potassium quantification in these patients send serum separator tube (gold top) for subsequent determinations. ??Contact the Clinical Chemistry Laboratory if there are any questions. Chloride 103 98 - 107 mmol/L [facility] Carbon Dioxide 22 22 - 31 mmol/L [facility] Anion Gap 15 5 - 15 mmol/L [facility] Calcium 9.1 8.5 - 10.5 mg/dL [facility] Est Glomerular Filtration Rate >60 >=[address] [facility] Comment: The reported eGFR should be multiplied by 1.2 for patients. The MDRD is not an appropriate measure of renal function for patients with body mass extremes or in patients with acute kidney failure. http://[employer]/DHnkdep http://[employer]/DHMCnkf Blood specimen (specimen) 03/20/2017 2:54 PM EST 03/20/2017 3:00 PM EST Narrative Resulting Agency Comment Spec In Lab Jose Olivares MD CHEMISTRY ORDERABLES Performing Organization Address [facility] Co de Phone Number [facility] [place] [address] * (ABNORMAL) APTT (03/20/2017 2:54 PM EST) [facility] Partial Thromboplastin Time 43(H) 25 - 35 sec [facility] Comment: The recommended therapeutic range for full dose, unfractionated heparin at [facility] is 80 ? 114 seconds. The use of the anti-Xa (heparin) level rather than the PTT is recommended for monitoring anticoagulation intensity in critically ill patients receiving unfractionated heparin by continuous IV infusion. Blood specimen (specimen) 03/20/2017 2:54 PM EST 03/20/2017 3:00 PM EST Narrative Resulting Agency Comment Spec In Lab Jose Olivares MD HEMATOLOGY ORDERABLE S Performing Organization Address [facility] Co de Phone Number [facility] [place] [address] * SCAN DOC: CARDIAC CATH (03/20/2017 12:00 [...] Until 03/20/17 at 1715, Cath (Intra-Procedure), Routine 1715 (Given - Provider: Ezio Abarca MD) lidocaine (XYLOCAINE) 10 mg/mL (1 %) injection 3 mg 3 mg (0.3 mL), Subcutaneous, ONCE PRN, 1 dose, Starting on Thu03/20/17 at 1443, Until 03/21/17 at 1528, for discomfort with PIV insertion, Routine 1616 ([facility] Hold - Provider: Admin Adt - Reason: Transfer to a Procedural area)1736 ([facility] Unhold - Provider: Admin Adt) midazolam (PF) (VERSED) 1 mg/mL multi-dose injection (CANCELED) ONCE PRN, Starting on Thu03/20/17 at 1634, Until 03/20/17 at 1715, Cath (Intra-Procedure), Routine 1634 (Given - Provider: Brenda Angelo, RN)1642 (Given - Provider: Madeleine Love RN) nicotine polacrilex (COMMIT) lozenge 2 mg 2 mg, Buccal, EVERY 1 HOUR PRN, Smoking cessation, Starting on Thu03/20/17 at 1443, Until 03/21/17 at 1528, Maximum [...] last 24 to 72 hours., Routine 1616 ([facility] Hold [...] PRN, Starting on 03/20/17 at 1443, Until Thu03/21/17 at 1528, flush, Flush pertains to all indwelling lines. Flush per protocol found in the job aid using the link provided on this medication record., Routine 1616 ([facility] Hold [...] Routine documented in this encounter Care Teams Roof Truss Detailer Relationship Specialty Start Date End Date Garth Berg MD [address] [place] [address] PCP - General General Internal Medicine 03/02/17 documented as of this encounter
--- OUTSIDE RECORDS SUMMARY | 2023-12-22 15:16 | XMS_ITS | Encounter Summary ---
Author Organization [facility] Address [facility] [place] [address] Care Team Providers Care Voice Systems Engineer Name Role Phone Judd Scott MD Primary Care Provider [phone] Encounter Details Date Type Department Care Team (Latest Contact Info) Description 02/23/2017 - 02/23/2017 11:59 PM [facility] Hospital Encounter Radiology Library at [facility] [place] [address] [facility] [place] [address] Discharge Disposition: Home Social History Tobacco Use [...] nuclear medicine (02/23/2017 12:00 AM EST) Narrative [facility] - 03/20/2017 12:47 PM EST This exam is for storage only and is auto-finalizing. Jose Olivares MD G FILM LIBRARY ORD ERABLES [place], [place] documented in this encounter Visit Diagnoses Not on filedocumented in this encounter Care Teams Voice Systems Engineer Relationship Specialty Start Date End Date Judd Scott MD PCP - General 01/08/10 03/01/17 documented as of this encounter
--- OUTSIDE RECORDS SUMMARY | 2023-12-22 15:16 | XMS_ITS | Encounter Summary ---
Author Organization [facility] [place] [address] Care Team Providers Care Hand Binder Cutter Name Role Phone Judd Scott MD Primary Care Provider Encounter Details Date Type Department Care Team (Latest Contact Info) Description 11/22/2014 - 11/22/2014 11:59 PM EDT Hospital Encounter Radiology Library at [facility] [place] [address] Amando Robins MD [facility] [place] [address] Discharge Disposition: Home Social History Tobacco Use [...] DX Chest (11/22/2014 12:00 AM EDT) Narrative [facility] - 01/14/2018 11:47 AM EST This exam is for storage only and is auto-finalizing. Amando Robins MD [facility] FILM LIBRARY ORD ERABLES [facility] [place], [place] documented in this encounter Visit Diagnoses Not on filedocumented in this encounter Care Teams Hand Binder Cutter Relationship Specialty Start Date End Date Judd Scott MD PCP - General 01/08/10 03/01/17 documented as of this encounter
--- OUTSIDE RECORDS SUMMARY | 2023-12-22 15:16 | XMS_ITS | Encounter Summary ---
Author Organization [facility] Address [facility] [place] [address] Care Team Providers Care Heating Mechanic Name Role Phone Judd Scott MD Primary Care Provider [phone] Encounter Details Date Type Department Care Team (Latest Contact Info) Description 02/05/2017 - 02/05/2017 11:59 PM [facility] Hospital Encounter Radiology Library [place] [facility] [place] [address] Jose Olivares MD [facility] [place] [address] Discharge Disposition: Home Social History Tobacco Use [...] DX Chest (02/05/2017 12:00 AM EST) Narrative [facility] - 03/20/2017 12:49 PM EST This exam is for storage only and is auto-finalizing. Jose Olivares MD IMG FILM LIBRARY ORD ERABLES [place], [place] documented in this encounter Visit Diagnoses Not on filedocumented in this encounter Care Teams Heating Mechanic Relationship Specialty Start Date End Date Judd Scott MD PCP - General 01/08/10 03/01/17 documented as of this encounter
== END 2023-12-22 15:09 | disposition home or self-care (01) ==
LOC: ER 15:11
PROVIDERS: Emergency Provider Emergency Medicine; PCP Student in an Organized Health Care Education/Training Program
DX: L02.415 Cutaneous abscess of right lower limb (principal); E11.22 Type 2 diabetes mellitus with diabetic chronic kidney disease; I12.9 Hypertensive chronic kidney disease with stage 1 through stage 4 chronic kidney disease, or unspecified chronic kidney disease; N18.30 Chronic kidney disease, stage 3 unspecified; Z79.84 Long term (current) use of oral hypoglycemic drugs; Z79.4 Long term (current) use of insulin; Z79.82 Long term (current) use of aspirin; F17.210 Nicotine dependence, cigarettes, uncomplicated
CPT/HCPCS: 10061; 99283

== ENCOUNTER 2023-12-24 16:08 | Emergency (ER) | payer MEDICARE, MEDICAID, SELFPAY ==
[2023-12-24 16:10] VITALS: BP 125/54; PULSE 62; RESP 16; TEMP 36.6; O2SAT 95
--- NOTE | 2023-12-24 16:24 | W.ED.GENAD ---
Discharge Plan Disposition Patient Disposition: Home Condition: Stable Discharge Details Clinical Impression: Abscess, Chronic kidney disease (CKD), stage III (moderate), Diabetes mellitus type 2 in obese, Essential hypertension, Gastroesophageal reflux disease without esophagitis, Mixed hyperlipidemia, Obstructive sleep apnea, Cellulitis Primary Care Provider: Angus Barnett ED Provider: Daria Alexander Home Meds and New Rx's Prescriptions: New cephalexin 500 mg capsule 500 mg PO QID 6 Days Qty: 24 0RF sulfamethoxazole-trimethoprim [Bactrim DS] 800-160 mg tablet 1 tab PO BID 2 Days Qty: 4 0RF No Action (DME) lancets [FreeStyle Lancets] 28 gauge misc See Rx Instructions .ROUTE .MEDSUPPLY Qty: 25 Rx Instructions: As directed albuterol sulfate [Ventolin HFA] 90 mcg/actuation HFA aerosol inhaler 1 - 2 puff Inhalation Q4H PRN Qty: 1 6RF Patient Comments: 09/03/21 pt reports he hasnt used in @ 5 months Rx Instructions: PHARMACY: PLEASE DISPENSE ALBUTEROL BRAND COVERED BY INSURANCE gemfibrozil [Lopid] 600 mg tablet 600 mg PO DAILY Qty: 90 3RF atorvastatin 20 mg tablet 20 mg PO DAILY Qty: 90 3RF pantoprazole [Protonix] 40 mg tablet,delayed release (DR/EC) 40 mg PO DAILY Qty: 30 12RF sucralfate [Carafate] 1 gram tablet 1 g PO HS Qty: 30 12RF lisinopril 10 mg tablet 5 mg PO DAILY nitroglycerin [Nitrostat] 0.4 mg tablet, sublingual 0.4 mg Sublingual Q5 MIN PRN X3 Qty: 100 1RF Patient Comments: 09/03/21 pt reports he hasnt taken in @ 3 months Rx Instructions: 1 tab sublingual q5m PRN x3 chest pain cholecalciferol (vitamin D3) [Vitamin D3] 50 mcg (2,000 unit) tablet 2,000 unit PO DAILY Qty: 90 3RF aspirin 81 mg tablet,delayed release (DR/EC) 81 mg PO DAILY 90 Days Qty: 90 3RF (DME) FreeStyle Lite Strips Strip See Rx Instructions .ROUTE .MEDSUPPLY Qty: 100 3RF Patient Comments: pt. states he checks his sugars when he thinks his sugars high Rx Instructions: Test daily to keep HbA1c less than 6.5%; Dx: E11.9 acetaminophen 500 mg tablet 500 mg PO Q6H PRN (Reason: pain) Qty: 60 2RF ibuprofen 600 mg tablet 600 mg PO TID PRN (Reason: pain) Qty: 60 0RF insulin glargine [Basaglar KwikPen U-100 Insulin] 100 unit/mL (3 mL) insulin pen 15 unit subcut QAM Qty: 30 0RF metformin 500 mg tablet extended release 24 hr 1,000 mg PO TID Qty: 180 3RF Rx Instructions: for diabetes, two tabs in the morning sulfamethoxazole-trimethoprim [Bactrim DS] 800-160 mg tablet 1 tab PO BID 5 Days Qty: 10 0RF Discharge Instructions Additional Instructions: You were seen in the emergency department today for evaluation of an abscess, which has some surrounding cellulitis. In our department had a full physical examination performed, I pulled the packing out of your abscess, and have provided you with a second antibiotic. I have sent an extended course of your first antibiotic to the pharmacy, in short, you will take 2 antibiotics for a total of 7 days each. Please take all of your antibiotics until they are gone, even if you start to feel better. You should continue to use Tylenol for management of pain, and can wash normally but pat dry and be gentle with the wound. Please use [id number] antibiotic ointment and bandaging to keep it clean and dry. You should follow-up with your primary care provider in the next few days to discuss this visit and any symptoms that change, worsen, or persist. Thank you for allowing us to be part of your care. Discharge Data Discharge Date/Time-TO BE ENTERED AT DEPARTURE: 12/24/23 16:32 HPI General Date/Time Provider Initiated Documentation: 12/24/23 16:12. Limitations to Documentation: no limitations. Information obtained by: patient and old records reviewed. HPI Narrative: HPI: This is a 58-year-old male patient, seen in our facility 2 days ago for an abscess on his lower leg that was drained and packed. The patient has been taking Bactrim, but presented today because he noted worsening redness surrounding the wound, and felt that the pain was increasing. He states that he has not missed any doses of antibiotics, has been taking Tylenol, last dose this morning, denies fever, chills, or other systemic symptoms. Exam: Gen: Awake and alert, in no apparent distress HEENT: Non-icteric sclera Neck: Supple Lungs: No apparent respiratory distress, normal respiratory effort. CV: Appears well perfused, strong distal pulses Abdomen: Non-distended MSK: Moves 4 extremities without apparent limitation in ROM. The patient has an approximately 1 cm opening over the previous site of abscess, with 2 cm of surrounding induration that extends past the previously demarcated line by approximately half a centimeter. No crepitus or fluctuance Skin: Visualized skin without rashes, cyanosis. Neuro: Normal Gait, no obvious focal deficits or facial asymmetry. Speaks in full, clear sentences. Psych: Appropriate for situation. MDM: This is a 58-year-old male patient presenting for evaluation of an abscess. My differential includes but is not limited to cellulitis, certainly considered undrained abscess though this is less consistent with my history and physical examination. I am less concerned for NSTI given the patient's hemodynamic stability and the mild nature of the surrounding redness. He is otherwise without systemic symptoms to suggest bacteremia or sepsis. ED Course: I removed the packing, the abscess cavity is approximately half a centimeter in size, and I did not repack. I did probe and washout the abscess cavity with no residual purulence noted. I redressed the abscess and will start the patient on a second antibiotic for strep coverage, Keflex 500 mg 4 times per day. Will also extend his Bactrim to 1 week. At this time, the patient has had a full medical evaluation and is safe for discharge to home. They are hemodynamically stable, ambulatory, and tolerating PO. They are understanding of the follow-up plan and return precautions. They left our facility without incident. Daria Alexander MD Related Data Home Medications ?Medication ?Instructions ?Recorded ?Confirmed lancets 28 gauge (FreeStyle #25 ea 08/29/19 12/23/23 Lancets) nitroglycerin 0.4 mg sublingual 0.4 mg sublingual Q5 MIN PRN X3 09/21/19 12/23/23 tablet (Nitrostat) chest pain #100 tabs albuterol sulfate 90 mcg/actuation 1 - 2 puff inhalation Q4H PRN ##1 10/20/19 12/23/23 aerosol inhaler (Ventolin HFA) cholecalciferol (vitamin D3) 50 2,000 unit PO DAILY #90 tab-caps 06/28/20 12/23/23 mcg (2,000 unit) tablet (Vitamin D3) atorvastatin 20 mg tablet 20 mg PO DAILY #90 tabs 11/09/20 12/23/23 gemfibrozil 600 mg tablet (Lopid) 600 mg PO DAILY #90 tabs 11/09/20 12/23/23 aspirin 81 mg tablet,delayed 81 mg PO DAILY 90 days ##90 01/31/21 12/23/23 release blood sugar diagnostic (FreeStyle #100 ea 03/14/21 12/23/23 Lite Strips) pantoprazole 40 mg tablet,delayed 40 mg PO DAILY #30 tabs 05/23/21 12/23/23 release (Protonix) sucralfate 1 gram tablet (Carafate) 1 g PO HS #30 tabs 05/23/21 12/23/23 lisinopril 10 mg tablet 5 mg PO DAILY 10/11/21 12/23/23 acetaminophen 500 mg tablet 500 mg PO Q6H PRN pain #60 tabs 12/04/21 12/23/23 ibuprofen 600 mg tablet 600 mg PO TID PRN pain #60 tabs 12/04/21 12/23/23 insulin glargine 100 unit/mL (3 15 unit (0.15 mL) subcut QAM #30 mL 10/02/23 12/23/23 mL) subcutaneous pen (Basaglar KwikPen U-100 Insulin) metformin 500 mg tablet,extended 1,000 mg (2 x 500 mg) PO TID #180 10/02/23 12/23/23 release 24 hr tab-caps sulfamethoxazole 800 1 tab PO BID 5 days #10 tabs 12/22/23 12/23/23 mg-trimethoprim 160 mg tablet (Bactrim DS) cephalexin 500 mg capsule 500 mg PO QID 6 days #24 caps 12/24/23 sulfamethoxazole 800 1 tab PO BID 2 days #4 tabs 12/24/23 mg-trimethoprim 160 mg tablet (Bactrim DS) Previous Rx's ?Medication ?Instructions ?Recorded nitroglycerin 0.4 mg sublingual 0.4 mg sublingual Q5 MIN PRN X3 09/21/19 tablet (Nitrostat) chest pain #100 tabs albuterol sulfate 90 mcg/actuation 1 - 2 puff inhalation Q4H PRN ##1 10/20/19 aerosol inhaler (Ventolin HFA) cholecalciferol (vitamin D3) 50 2,000 unit PO DAILY #90 tab-caps 06/28/20 mcg (2,000 unit) tablet (Vitamin D3) atorvastatin 20 mg tablet 20 mg PO DAILY #90 tabs 11/09/20 gemfibrozil 600 mg tablet (Lopid) 600 mg PO DAILY #90 tabs 11/09/20 aspirin 81 mg tablet,delayed 81 mg PO DAILY 90 days ##90 01/31/21 release blood sugar diagnostic (FreeStyle #100 ea 03/14/21 Lite Strips) pantoprazole 40 mg tablet,delayed 40 mg PO DAILY #30 tabs 05/23/21 release (Protonix) sucralfate 1 gram tablet (Carafate) 1 g PO HS #30 tabs 05/23/21 acetaminophen 500 mg tablet 500 mg PO Q6H PRN pain #60 tabs 12/04/21 ibuprofen 600 mg tablet 600 mg PO TID PRN pain #60 tabs 12/04/21 insulin glargine 100 unit/mL (3 15 unit (0.15 mL) subcut QAM #30 mL 10/02/23 mL) subcutaneous pen (Basaglar KwikPen U-100 Insulin) metformin 500 mg tablet,extended 1,000 mg (2 x 500 mg) PO TID #180 10/02/23 release 24 hr tab-caps sulfamethoxazole 800 1 tab PO BID 5 days #10 tabs 12/22/23 mg-trimethoprim 160 mg tablet (Bactrim DS) cephalexin 500 mg capsule 500 mg PO QID 6 days #24 caps 12/24/23 sulfamethoxazole 800 1 tab PO BID 2 days #4 tabs 12/24/23 mg-trimethoprim 160 mg tablet (Bactrim DS) Allergies Allergy/AdvReac Type Severity Reaction Status Date / Time celecoxib Allergy Intermediate Rash, Verified 12/22/23 14:24 urticaria naproxen Allergy Intermediate Itchy Welts Verified 12/22/23 14:24 General Stated Complaint: Cellulitis JAMES: 4 Course Vital Signs Vital signs: Vital Signs Temperature 36.6 C 12/24/23 16:10 Pulse 62 12/24/23 16:10 Respiratory Rate 16 12/24/23 16:10 Blood Pressure 125/54 L 12/24/23 16:10 Pulse Oximetry 95 12/24/23 16:10 Temperature 36.6 C 12/24/23 16:10 Temperature Source Temporal Artery Scan 12/24/23 16:10 Pulse 62 12/24/23 16:10 Respiratory Rate 16 12/24/23 16:10 Respiratory Effort Normal 12/24/23 16:17 Blood Pressure 125/54 L 12/24/23 16:10 Blood Pressure Position Sitting 12/24/23 16:10 Pulse Oximetry 95 12/24/23 16:10 Oxygen Delivery Method Room Air 12/24/23 16:10 Oxygen Flow Rate 0 12/24/23 16:10 Medical Decision Making Quality:SDOH Health Related Social Needs: No Data to Display PFSH All Active Problems (Updated 12/24/23 @ 16:25 by Daria Alexander MD) Cellulitis (Acute) No-show for appointment (Acute) Abscess (Acute) Internal derangement of right knee (Acute) Contusion of right knee (Acute 09/04/23) H/O urinary frequency (Acute) Abnormal stress test (Chronic) Tobacco use disorder (Chronic) Quit 2019, restarted late in the year Vitamin D deficiency (Chronic) Chronic kidney disease (CKD), stage III (moderate) (Chronic 05/26/16) ? due to DM or to hypertension Diabetes mellitus type 2 in obese (Chronic 02/19/16) presented with polyuria, elevated FS on friend's glucometer, A1c 14 at [facility] Essential hypertension (Chronic) goal <140/85 Gastroesophageal reflux disease without esophagitis (Chronic 12/05/11) ER 11/2014 rx PPI Microscopic hematuria (Chronic 02/27/14) CT neg; JUSTINO neg; persists 01/2015 Mixed hyperlipidemia (Chronic 02/16/01) low HDL 27; SL HIGH TG; CV RISK (12/2016): 27%: rec Statin Obesity, unspecified (Chronic 12/05/11) 1993 165#; 180 gives BMI <30 05/06/21 [facility], BMI 35.10 Obstructive sleep apnea (Chronic 03/10/16) [id number], severe in REM sleep Sleep study PSG on 03/10/16: AHI 20.1; SPO2 shailesh 82%; CPAP begun 06/08/16. with improvement in fatigue 06/29/16 restudied higher pressures needed assoc. with treatment of central sleep apnea Complex regional pain syndrome (Chronic 06/27/13) Type 2 diabetes mellitus (Chronic 12/05/11) Chest pain (Acute) Hypertrophy of tonsils (Acute) 02/21/2019 ENT, Dr Lange Dysfunction of left eustachian tube (Acute) 02/21/[address] Lange Edentulous (Acute) Chronic maxillary sinusitis (Acute) History of sinusitis (Acute) Abdominal obesity (Acute) Chest pain (Acute) Bilateral hydrocele (Acute) Abdominal pain (Acute) Lightheadedness (Acute) Hematuria (Acute) Family history of cerebral aneurysm (Chronic) Mother in Mar 2020 Right arm numbness (Acute) Functional bowel disorder (Acute) Diverticulosis (Chronic) Colonoscopy June 2019 Other constipation (Acute ~2020) [facility] Polyp of colon (Acute ~2020) [facility] Right lower quadrant pain (Acute ~2020) [facility] Sinusitis (Acute) High triglycerides (Acute) Dizziness (Acute) Dyspnea (Acute) Gout (Chronic) R 1st PIP joint Umbilical hernia (Acute) History of alcohol abuse (Acute) Burning sensation (Acute) Eructation (Acute) Medical History Urinary incontinence without sensory awareness Sessile colonic polyp (09/26/14) @ transverse colon, sigmoid Paresthesias (10/27/16) nocturnal, bilateral, R>L, Median nerve, probable CTS Surgical History Cubital tunnel syndrome of both upper extremities S/P L cubital tunnel release: 09/03/2021 S/P R cubital tunnel release: 12/04/2021 Carpal tunnel syndrome of right wrist S/P ECTR: 12/04/2021 Carpal tunnel syndrome of left wrist S/P ECTR: 09/03/2021 Cystoscopy w/ joe retrograde pyelogram (03/01/15) Colonoscopy - IV Sedation (09/26/14) [facility] Perri, serrated polyp, fragments of sessile serrated adenoma Extraction of cataract (12/17/16) Left Radha Manzo; Natividad 11/19/16 Cardiac Cath (03/24/17) [id number] stents placed Family History Father , lung cancer at age 67. Essential hypertension Neoplasm Mother Diabetes Essential hypertension Sister No problems noted. Sister No problems noted. Social History Smoking/Tobacco Use Status: Current every day Tobacco Type: cigarettes Tobacco: How many years used: 41 Quit status: considering quitting Smoking risk assessment performed?: Yes Alcohol Intake: former Drug use: Never Substance use type: does not use Household members: significant other Housing: apartment Number of Children: 3 Communication Needs: None Do you need help understanding health information?: Often current occupation: Disabled Current gender identity: male What is your relationship status?: living with partner How often do you talk on the phone with friends or family?: three or more times per week How often do you get together with friends or relatives?: three or more times per week Panel score (0-1 are the most socially isolated patients): 2 What type of physical activity do you participate in: none Seatbelt use: always Drive intox or ride w/intox medical driver: No Working smoke detector in home: No Fire extinguisher in home: No Carbon monox detector in home: No Do you feel safe at home: Yes Do you feel safe in your relationship?: Yes
[2023-12-24] MEDS: Cephalexin 500 MG CAP PO (16:26)
[2023-12-24] MEDS: Acetaminophen 500 MG TAB 1000 MG PO (16:26)
[2023-12-24] MEDS: Cephalexin 500 MG CAP, 4 CAPS/BTL PO (16:31)
== END 2023-12-24 16:32 | disposition home or self-care (01) ==
LOC: ER 16:39
PROVIDERS: Emergency Provider Emergency Medicine; PCP Student in an Organized Health Care Education/Training Program
DX: L02.415 Cutaneous abscess of right lower limb (principal); L03.115 Cellulitis of right lower limb; E11.22 Type 2 diabetes mellitus with diabetic chronic kidney disease; I12.9 Hypertensive chronic kidney disease with stage 1 through stage 4 chronic kidney disease, or unspecified chronic kidney disease; N18.30 Chronic kidney disease, stage 3 unspecified; E78.2 Mixed hyperlipidemia; F17.210 Nicotine dependence, cigarettes, uncomplicated; Z79.82 Long term (current) use of aspirin; Z79.84 Long term (current) use of oral hypoglycemic drugs
CPT/HCPCS: 99283

== ENCOUNTER 2023-12-29 19:54 | Emergency (ER) | payer MEDICARE, MEDICAID, SELFPAY ==
[2023-12-29] VITALS (8 sets, daily range): BP systolic 97–155; BP diastolic 43–78; PULSE 53–72; RESP 16–18; TEMP 36.1–36.3; O2SAT 97–99
--- NOTE | 2023-12-29 20:03 | W.ED.GENAD ---
Discharge Plan Disposition Patient Disposition: Home Condition: Stable Discharge Details Clinical Impression: Back pain of thoracolumbar region Primary Care Provider: Angus Barnett ED Provider: Brendon Garrett Home Meds and New Rx's Prescriptions: Continued (DME) lancets [FreeStyle Lancets] 28 gauge misc See Rx Instructions .ROUTE .MEDSUPPLY Qty: 25 Rx Instructions: As directed albuterol sulfate [Ventolin HFA] 90 mcg/actuation HFA aerosol inhaler 1 - 2 puff Inhalation Q4H PRN Qty: 1 6RF Patient Comments: 09/03/21 pt reports he hasnt used in @ 5 months Rx Instructions: PHARMACY: PLEASE DISPENSE ALBUTEROL BRAND COVERED BY INSURANCE gemfibrozil [Lopid] 600 mg tablet 600 mg PO DAILY Qty: 90 3RF atorvastatin 20 mg tablet 20 mg PO DAILY Qty: 90 3RF pantoprazole [Protonix] 40 mg tablet,delayed release (DR/EC) 40 mg PO DAILY Qty: 30 12RF sucralfate [Carafate] 1 gram tablet 1 g PO HS Qty: 30 12RF lisinopril 10 mg tablet 5 mg PO DAILY nitroglycerin [Nitrostat] 0.4 mg tablet, sublingual 0.4 mg Sublingual Q5 MIN PRN X3 Qty: 100 1RF Patient Comments: 09/03/21 pt reports he hasnt taken in @ 3 months Rx Instructions: 1 tab sublingual q5m PRN x3 chest pain cholecalciferol (vitamin D3) [Vitamin D3] 50 mcg (2,000 unit) tablet 2,000 unit PO DAILY Qty: 90 3RF aspirin 81 mg tablet,delayed release (DR/EC) 81 mg PO DAILY 90 Days Qty: 90 3RF (DME) FreeStyle Lite Strips Strip See Rx Instructions .ROUTE .MEDSUPPLY Qty: 100 3RF Patient Comments: pt. states he checks his sugars when he thinks his sugars high Rx Instructions: Test daily to keep HbA1c less than 6.5%; Dx: E11.9 acetaminophen 500 mg tablet 500 mg PO Q6H PRN (Reason: pain) Qty: 60 2RF ibuprofen 600 mg tablet 600 mg PO TID PRN (Reason: pain) Qty: 60 0RF insulin glargine [Basaglar KwikPen U-100 Insulin] 100 unit/mL (3 mL) insulin pen 15 unit subcut QAM Qty: 30 0RF metformin 500 mg tablet extended release 24 hr 1,000 mg PO TID Qty: 180 3RF Rx Instructions: for diabetes, two tabs in the morning No Action oxycodone 5 mg tablet 5 mg PO Q8H cyclobenzaprine 10 mg tablet 10 mg PO BID PRN (Reason: muscle spasm) Qty: 10 0RF Rx Instructions: Please take 1 tablet twice a day as needed for muscle spasm. prednisone 50 mg tablet 50 mg PO DAILY 5 Days Qty: 5 0RF Rx Instructions: Take 1 tablet daily for the next 5 days Discharge Instructions Instructions: Oxycodone, Low Back Pain ED, Upper Back Pain ED Additional Instructions: You were seen in the emergency department for your mid to lower left-sided back pain, we performed some laboratory studies that showed no evidence of significant infection, have a mild pancreatitis which you have had in the past, your kidney function is baseline, the CT scan showed no kidney stones, you have some chronic right sided perinephritic inflammation but this has been stable on past CT scans as well. I am not sure what is causing your back pain but this may be musculoskeletal as you spend a significant amount of time in recliner chair, please use therapeutic dosing of Tylenol (acetamenophen) & Advil (ibuprofen) in an alternating fashion as follows: Take 1000mg of Tylenol every 6 hours without missing doses- that is 4 times per day. [place] in between the Tylenol dosings, take 400-600mg of Advil also on a 6 hour schedule, that is also 4 times per day. The daily maximum dosing of Tylenol is 4000mg, and the daily maximum dosing of Advil is 2400mg. This is safe to do for weeks. Please note that some common cold medications & prescription pain medications may contain acetamenophen and you need to read OTC drug labels and factor that in to maximum daily dosings. Take the provided at home oxycodone that I provided and the 4 tabs to go bottle for breakthrough pain. Apply an [id number] lidocaine patch to the area of pain, apply gentle heat and massage to the area, follow-up with physical therapy referral that is provided if desired. Watch your condition at home and return for any acute worsening despite treatment especially with bowel or urinary changes, fever, nausea or vomiting. Stand Alone Forms: Physical Therapy Referral Referrals: Angus Barnett [Primary Care Provider] - Discharge Data Discharge Date/Time-TO BE ENTERED AT DEPARTURE: 12/29/23 22:42 HPI General Date/Time Provider Initiated Documentation: 12/29/23 20:01. HPI Narrative: 58 year-old male presents to ED today by POV/ambulating with a chief complaint of L lower back pain, radiating around to belly, feels like it is inside his abdomen not superficial with onset noted today. Quality described as deep severe achy pain, no radiation to numbness/tingling in either leg, bowel/urinary changes, nausea/vomiting, chest pain, shortness of breath, fever. Severity is described as severe. Palliating factors include took Tylenol without relief earlier today. Provoking factors include nothing specific. Events leading up to the incident/Associated Symptoms: Patient denies history of renal stone. Patient not anticoagulated. Related Data Home Medications ?Medication ?Instructions ?Recorded ?Confirmed lancets 28 gauge (FreeStyle #25 ea 08/29/19 12/30/23 Lancets) nitroglycerin 0.4 mg sublingual 0.4 mg sublingual Q5 MIN PRN X3 09/21/19 12/30/23 tablet (Nitrostat) chest pain #100 tabs albuterol sulfate 90 mcg/actuation 1 - 2 puff inhalation Q4H PRN ##1 10/20/19 12/30/23 aerosol inhaler (Ventolin HFA) cholecalciferol (vitamin D3) 50 2,000 unit PO DAILY #90 tab-caps 06/28/20 12/30/23 mcg (2,000 unit) tablet (Vitamin D3) atorvastatin 20 mg tablet 20 mg PO DAILY #90 tabs 11/09/20 12/30/23 gemfibrozil 600 mg tablet (Lopid) 600 mg PO DAILY #90 tabs 11/09/20 12/30/23 aspirin 81 mg tablet,delayed 81 mg PO DAILY 90 days ##90 01/31/21 12/30/23 release blood sugar diagnostic (FreeStyle #100 ea 03/14/21 12/30/23 Lite Strips) pantoprazole 40 mg tablet,delayed 40 mg PO DAILY #30 tabs 05/23/21 12/30/23 release (Protonix) sucralfate 1 gram tablet (Carafate) 1 g PO HS #30 tabs 05/23/21 12/30/23 lisinopril 10 mg tablet 5 mg PO DAILY 10/11/21 12/30/23 acetaminophen 500 mg tablet 500 mg PO Q6H PRN pain #60 tabs 12/04/21 12/30/23 ibuprofen 600 mg tablet 600 mg PO TID PRN pain #60 tabs 12/04/21 12/30/23 insulin glargine 100 unit/mL (3 15 unit (0.15 mL) subcut QAM #30 mL 10/02/23 12/30/23 mL) subcutaneous pen (Basaglar KwikPen U-100 Insulin) metformin 500 mg tablet,extended 1,000 mg (2 x 500 mg) PO TID #180 10/02/23 12/30/23 release 24 hr tab-caps cyclobenzaprine 10 mg tablet 10 mg PO BID PRN muscle spasm #10 12/30/23 tabs oxycodone 5 mg tablet 5 mg PO Q8H 12/30/23 12/30/23 prednisone 50 mg tablet 50 mg PO DAILY Inflammation 5 days 12/30/23 #5 tabs Previous Rx's ?Medication ?Instructions ?Recorded nitroglycerin 0.4 mg sublingual 0.4 mg sublingual Q5 MIN PRN X3 09/21/19 tablet (Nitrostat) chest pain #100 tabs albuterol sulfate 90 mcg/actuation 1 - 2 puff inhalation Q4H PRN ##1 10/20/19 aerosol inhaler (Ventolin HFA) cholecalciferol (vitamin D3) 50 2,000 unit PO DAILY #90 tab-caps 06/28/20 mcg (2,000 unit) tablet (Vitamin D3) atorvastatin 20 mg tablet 20 mg PO DAILY #90 tabs 11/09/20 gemfibrozil 600 mg tablet (Lopid) 600 mg PO DAILY #90 tabs 11/09/20 aspirin 81 mg tablet,delayed 81 mg PO DAILY 90 days ##90 01/31/21 release blood sugar diagnostic (FreeStyle #100 ea 03/14/21 Lite Strips) pantoprazole 40 mg tablet,delayed 40 mg PO DAILY #30 tabs 05/23/21 release (Protonix) sucralfate 1 gram tablet (Carafate) 1 g PO HS #30 tabs 05/23/21 acetaminophen 500 mg tablet 500 mg PO Q6H PRN pain #60 tabs 12/04/21 ibuprofen 600 mg tablet 600 mg PO TID PRN pain #60 tabs 12/04/21 insulin glargine 100 unit/mL (3 15 unit (0.15 mL) subcut QAM #30 mL 10/02/23 mL) subcutaneous pen (Basaglar KwikPen U-100 Insulin) metformin 500 mg tablet,extended 1,000 mg (2 x 500 mg) PO TID #180 10/02/23 release 24 hr tab-caps cyclobenzaprine 10 mg tablet 10 mg PO BID PRN muscle spasm #10 12/30/23 tabs prednisone 50 mg tablet 50 mg PO DAILY Inflammation 5 days 12/30/23 #5 tabs Allergies Allergy/AdvReac Type Severity Reaction Status Date / Time celecoxib Allergy Intermediate Rash, Verified 12/30/23 12:03 urticaria naproxen Allergy Intermediate Itchy Welts Verified 12/30/23 12:03 General Stated Complaint: Nk/Back Pain JAMES: 3 Review of Systems All systems reviewed & are unremarkable except as noted in HPI and below Exam Narrative Exam Narrative: GENERAL APPEARANCE: Well-nourished, non-toxic, awake and alert, atraumatic, no acute distress. SKIN: Warm, pink, dry, intact, without rashes/lesions/ulcerations. HEAD: Normocephalic, atraumatic, normal hair distribution for gender/age. EYES: Normal conjunctiva, no exudates on lids/lashes. ENT: Nares patent, no circumoral cyanosis, no facial swelling NECK: Supple, trachea midline, painless cervical ROM. LUNGS/CHEST: Lungs CTA bilaterally-no rhonchi rales wheezes diffusely, non-labored respirations, normal A/P diameter, symmetrical expansion, no chest wall deformity HEART (CV/PV): Regular rate and rhythm without murmur, no peripheral edema, no JVD. ABDOMEN: Soft, non-distended, no guarding left CVA tenderness to percussion, negative Kline's, no Rovsing's. MSK: Normal ROM, no swelling/deformity to bilateral UEs or LEs, moving all extremities without weakness, no cyanosis, spine midline without tenderness-has left lumbar paraspinal tenderness and left lateral thoracic tenderness as well as left upper quadrant mild tenderness to the abdomen, normal curvature. NEURO: Mental Status AAOx4 - alert to person, place, time, events No facial droop, no forehead involvement. Motor: No focal weakness - strength 5/5 in bilateral UEs and LEs, proximal and distal, symmetric. Sensory: sensation intact to light touch globally. Gait normal: patient ambulated without ataxia into ED room. PSYCH: euthymic, cooperative, pleasant, appropriate speech Course Vital Signs Vital signs: Vital Signs Temperature 36.3 C L 12/29/23 19:56 Pulse 72 12/29/23 19:56 Respiratory Rate 18 12/29/23 19:56 Blood Pressure 155/78 H 12/29/23 19:56 Pulse Oximetry 99 12/29/23 19:56 Temperature 36.3 C L 12/29/23 19:56 Temperature Source Oral 12/29/23 19:56 Pulse 72 12/29/23 19:56 Respiratory Rate 18 12/29/23 19:56 Respiratory Effort Normal, Non-Labored 12/29/23 19:59 Blood Pressure 155/78 H 12/29/23 19:56 Blood Pressure Position Sitting 12/29/23 19:56 Pulse Oximetry 99 12/29/23 19:56 Oxygen Delivery Method Room Air 12/29/23 19:56 Oxygen Flow Rate 0 12/29/23 19:56 Pain Level 10 12/29/23 19:56 Medical Decision Making This dictation utilizes [id number] dictation software and may contain unedited grammatical errors. 58 year-old male presents to ED today by POV/ambulating with a chief complaint of L lower back pain, radiating around to belly, feels like it is inside his abdomen not superficial with onset noted today. Quality described as deep severe achy pain, no radiation to numbness/tingling in either leg, bowel/urinary changes, nausea/vomiting, chest pain, shortness of breath, fever. Severity is described as severe. Palliating factors include took Tylenol without relief earlier today. Provoking factors include nothing specific. Events leading up to the incident/Associated Symptoms: Patient denies history of renal stone. Patients' medical history: Paresthesias, tobacco use disorder, CKD stage III, T2DM, hypertension, GERD, complex regional pain syndrome. Family and social history: Noncontributory. Pertinent exam findings / vital signs include left lumbar paraspinal mild tenderness, neurovascular intact in bilateral lower extremities, no saddle anesthesia, left CVA tenderness to percussion, left upper quadrant abdominal tenderness without Rovsing's, no Kline sign, benign cardiopulmonary status. Differential / pathologies of concern include lumbar radiculopathy, left ureteral stone or pyelonephritis, UTI, SBO or other bowel pathology less likely. Diagnostic studies of: -CBC, CMP, lipase, lactate, UA, CT renal study, CT lumbar spine without. -CBC is completely unremarkable -CMP shows a baseline creatinine of 1.4, no other actionable abnormalities lipase is mildly elevated, patient has had pancreatitis in the past-he will perform clear fluid diet for a day or 2 -Lactate negative -UA has small amounts of blood -CT renal study shows no acute ureteral stone, stable right sided perinephritic stranding -CT lumbar study shows no acute abnormalities other than degenerative changes Interventions of: -Lidoderm patch, 4 mg Zofran and 6 mg morphine, ibuprofen p.o., IV Tylenol, 4 oxycodone to go. ED Course/Assessment/Plan: 58-year-old male presents with left-sided thoracolumbar back pain, radiating around to the front of the left side of the abdomen, he has no lower extremity symptoms, he was found to have mild pancreatitis which could be contributing to the thoracic region pain but he does have left lumbar paraspinal tenderness consistent with SI joint dysfunction or sciatica without radicular symptoms. His CT renal study is negative and labs are benign, there is no left-sided kidney pathology, counseled the patient on back pain regimen and possibly starting physical therapy visits as he states he is quite sedentary and spends most of his time on the couch. Findings not consistent with neurovascular compromise, ureteral stone or pyelonephritis, kidney failure, UTI, sepsis, vertebral trauma. Disposition of Back Pain of Thoracolumbar Region. Patient verbalized understanding of the plan and return to ED criteria and engaged in shared decision making. Medical Records Medical records reviewed: Yes I reviewed the patient's medical records. Imaging Data Radiologic Study: Attestation: I personally reviewed and interpreted this imaging study as follows: Imaging: CT Scan Radiologist's impression: Exam: CT Abdomen And Pelvis Without Contrast Exam date and time: 12/29/2023 8:22 PM Age: 58 years old Clinical indication: Abdominal pain; Left; Patient HX: L CVA tenderness TECHNIQUE: Imaging protocol: Computed tomography of the abdomen and pelvis without contrast. Radiation optimization: All CT scans at this facility use at least one of these dose optimization techniques: automated exposure control; mA and/or kV adjustment per patient size (includes targeted exams where dose is matched to clinical indication); or iterative reconstruction. COMPARISON: CT ABDOMEN PELVIS W 08/19/2023 3:19 PM FINDINGS: Liver: Unremarkable liver. No mass identified. Gallbladder and biliary ducts: The gallbladder is unremarkable. No calcified stones. No ductal dilation. Pancreas: No ductal dilation. No pancreatic lesion seen. Spleen: The spleen is unremarkable. No splenomegaly. Adrenal glands: The adrenal glands are unremarkable. No defined mass. Kidneys and ureters: There are 2 simple appearing exophytic cysts seen in the right kidney measuring approximately 2.9 cm and 2.4 cm. No hydronephrosis. No nephrolithiasis. Mild perinephric stranding again noted, similar to prior examination and may be secondary to chronic scarring. Stomach and bowel: No bowel obstruction. A large duodenal diverticulum is again noted. There is sigmoid diverticulosis without acute diverticulitis. Appendix: No evidence of appendicitis. Intraperitoneal space: No free air. No significant fluid collection. Vasculature: No abdominal aortic aneurysm. Lymph nodes: No enlarged lymph nodes. Urinary bladder: Unremarkable urinary bladder. Reproductive: Unremarkable as visualized. Bones/joints: No acute fracture. No severe degenerative changes in the lumbar spine. Soft tissues: Unremarkable. IMPRESSION: 1. No nephrolithiasis or hydronephrosis. 2. Stable perinephric stranding possibly from prior or acute on chronic infectious/inflammatory etiology. Clinical correlation recommended. Dictated and Authenticated by: Christin Stevens MD. Radiologic Study #2: Attestation: I personally reviewed and interpreted this imaging study as follows: Imaging: CT Scan Radiologist's impression: Exam: CT Lumbar Spine Without Contrast Exam date and time: 12/29/2023 8:22 PM Age: 58 years old Clinical indication: Pain; L lumbar tenderness TECHNIQUE: Imaging protocol: Computed tomography of the lumbar spine without contrast. Radiation optimization: All CT scans at this facility use at least one of these dose optimization techniques: automated exposure control; mA and/or kV adjustment per patient size (includes targeted exams where dose is matched to clinical indication); or iterative reconstruction. COMPARISON: MR LUMBAR SPINE WO/W 06/19/2022 10:55 AM FINDINGS: Bones/joints: No acute fracture. Normal alignment. No severe disc bulge or herniation. No severe spinal canal stenosis. Mild bilateral neural foraminal noted at L5-S1 secondary to mild facet arthropathy and mild disc bulging. Soft tissues: Unremarkable. IMPRESSION: 1. No acute fracture or listhesis. 2. Mild degenerative changes noted. Dictated and Authenticated by: Christin Stevens MD. Lab Data Lab results reviewed: Yes I reviewed the patient's lab results. Labs: Laboratory Tests Range/Units 12/29/23 12/29/23 20:18 21:42 WBC (4.4-10.8) 10^3/uL 8.46 RBC (4.36-5.78) 10^6/uL 5.20 Hgb (13.5-17.5) g/dL 16.2 Hct (40.0-50.0) % 46.0 MCV (80-95) fL 89 MCH (27.0-33.0) pg 31.2 MCHC (32.0-36.0) % 35.2 RDW (11.8-14.1) % 12.6 Plt Count (130-400) 10^3/uL 225 MPV (8.0-11.0) fL 10.2 Immature Gran % % 0.9 Neutrophils % % 49.8 Lymphocytes % % 35.1 Monocytes % % 9.1 Eosinophils % % 4.0 Basophils % % 1.1 Nucleated RBC % (0.0-0.3) % 0.0 Absolute Neutrophils (1.2-6.7) 10^3/uL 4.21 Absolute Lymphocytes (1.2-3.4) 10^3/uL 2.97 Absolute Monocytes (0.1-0.8) 10^3/uL 0.77 Absolute Eosinophils (0.0-0.7) 10^3/uL 0.34 Absolute Basophils (0.0-0.2) 10^3/uL 0.09 VBG Lactate (0.6-1.4) mmol/L 1.3 Sodium (136-145) mmol/L 141 Potassium (3.5-5.1) mmol/L 4.5 Chloride (98-107) mmol/L 106 Carbon Dioxide (21.0-32.0) mmol/L 24.7 Anion Gap (3-11) mmol/L 10.3 BUN (7-18) mg/dL 23 H Creatinine (0.70-1.30) mg/dL 1.4 H Est GFR (CKD-EPI 2020) (mL/min/1.73m2) 57.54 Glucose (74-106) mg/dL 108 H Calcium (8.5-10.1) mg/dL 9.7 Total Bilirubin (0.2-1.0) mg/dL 0.32 AST (15-37) U/L 17 ALT (16-63) U/L 27 Alkaline Phosphatase (46-116) U/L 95 Total Protein (6.4-8.2) g/dL 7.4 Albumin (3.4-5.0) g/dL 3.9 Lipase (16-77) U/L 85 H Urine Color (Yellow) Yellow Urine Clarity (Clear) Clear Urine pH (5-8) 6.0 Ur Specific [place] (1.005-1.025) 1.025 Urine Protein (Neg-Trace) mg/dL Negative Urine Ketones (Negative) mg/dL Negative Urine Blood (Negative) Small H Urine Nitrite (Negative) Negative Urine Bilirubin (Negative) Negative Urine Urobilinogen (Up to 0.2) mg/dL 0.2 Ur Leukocyte Esterase (Negative) Negative Urine RBC (0-2) HPF 5-10 H Urine WBC (0-5) HPF 0-2 Ur Epithelial Cells (Negative) HPF Rare Urine Crystals Not Applicable Urine Bacteria (Negative) HPF Rare Urine Casts (Negative) LPF 0-2 Hyaline Urine Mucus (Negative) Moderate Ur Culture Indicated? No Urine Glucose (Negative) mg/dL Negative Quality:SDOH Health Related Social Needs: No Data to Display PFSH All Active Problems (Updated 12/30/23 @ 13:19 by Petty Strong NP) Lumbago (Acute) Back pain of thoracolumbar region (Acute) Cellulitis (Acute) No-show for appointment (Acute) Abscess (Acute) Internal derangement of right knee (Acute) Contusion of right knee (Acute 09/04/23) H/O urinary frequency (Acute) Abnormal stress test (Chronic) Tobacco use disorder (Chronic) Quit 2019, restarted late in the year Vitamin D deficiency (Chronic) Chronic kidney disease (CKD), stage III (moderate) (Chronic 05/26/16) ? due to DM or to hypertension Diabetes mellitus type 2 in obese (Chronic 02/19/16) presented with polyuria, elevated FS on friend's glucometer, A1c 14 at [facility] ER Essential hypertension (Chronic) goal <140/85 Gastroesophageal reflux disease without esophagitis (Chronic 12/05/11) ER 11/2014 rx PPI Microscopic hematuria (Chronic 02/27/14) CT neg; JUSTINO neg; persists 01/2015 Mixed hyperlipidemia (Chronic 02/16/01) low HDL 27; SL HIGH TG; CV RISK (12/2016): 27%: rec Statin Obesity, unspecified (Chronic 12/05/11) 1993 165#; 180 gives BMI <30 05/06/21 [facility] [place] [facility], BMI 35.10 Obstructive sleep apnea (Chronic 03/10/16) [id number], severe in REM sleep Sleep study PSG on 03/10/16: AHI 20.1; SPO2 shailesh 82%; CPAP begun 06/08/16. with improvement in fatigue 06/29/16 restudied higher pressures needed assoc. with treatment of central sleep apnea Complex regional pain syndrome (Chronic 06/27/13) Type 2 diabetes mellitus (Chronic 12/05/11) Chest pain (Acute) Hypertrophy of tonsils (Acute) 02/21/2019 ENT, Dr Lange Dysfunction of left eustachian tube (Acute) 02/21/[address] Lange Edentulous (Acute) Chronic maxillary sinusitis (Acute) History of sinusitis (Acute) Abdominal obesity (Acute) Chest pain (Acute) Bilateral hydrocele (Acute) Abdominal pain (Acute) Lightheadedness (Acute) Hematuria (Acute) Family history of cerebral aneurysm (Chronic) Mother in Mar 2020 Right arm numbness (Acute) Functional bowel disorder (Acute) Diverticulosis (Chronic) Colonoscopy June 2019 Other constipation (Acute ~2020) [facility] Polyp of colon (Acute ~2020) [facility] Right lower quadrant pain (Acute ~2020) [facility] Sinusitis (Acute) High triglycerides (Acute) Dizziness (Acute) Dyspnea (Acute) Gout (Chronic) R 1st PIP joint Umbilical hernia (Acute) History of alcohol abuse (Acute) Burning sensation (Acute) Eructation (Acute) Medical History Urinary incontinence without sensory awareness Sessile colonic polyp (09/26/14) @ transverse colon, sigmoid Paresthesias (10/27/16) nocturnal, bilateral, R>L, Median nerve, probable CTS Surgical History Cubital tunnel syndrome of both upper extremities S/P L cubital tunnel release: 09/03/2021 S/P R cubital tunnel release: 12/04/2021 Carpal tunnel syndrome of right wrist S/P ECTR: 12/04/2021 Carpal tunnel syndrome of left wrist S/P ECTR: 09/03/2021 Cystoscopy w/ joe retrograde pyelogram (03/01/15) Colonoscopy - IV Sedation (09/26/14) [facility]ri, serrated polyp, fragments of sessile serrated adenoma Extraction of cataract (12/17/16) Left Radha Manzo; R 11/19/16 Cardiac Cath (03/24/17) [id number] stents placed Family History Father , lung cancer at age 67. Essential hypertension Neoplasm Mother Diabetes Essential hypertension Sister No problems noted. Sister No problems noted. Social History Smoking/Tobacco Use Status: Current every day Tobacco Type: cigarettes Tobacco: How many years used: 41 Quit status: considering quitting Smoking risk assessment performed?: Yes Alcohol Intake: former Drug use: Never Substance use type: does not use Household members: significant other Housing: apartment Number of Children: 3 Communication Needs: None Do you need help understanding health information?: Often current occupation: Disabled Current gender identity: male What is your relationship status?: living with partner How often do you talk on the phone with friends or family?: three or more times per week How often do you get together with friends or relatives?: three or more times per week Panel score (0-1 are the most socially isolated patients): 2 What type of physical activity do you participate in: none Seatbelt use: always Drive intox or ride w/intox 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
--- NOTE | 2023-12-29 20:08 | DI.CT_ITS ---
Exam(s) CT LUMBAR SPINE RECONS CT RENAL COLIC WO EXAM: CT RENAL COLIC WO CLINICAL HISTORY: L CVA tenderness. TECHNIQUE: Imaging Protocol: Axial computed tomography images with coronal and sagittal reformatted images were created and reviewed. Axial, coronal and sagittal images of the lumbar spine were reconstructed from the abdomen pelvic CT in bone and soft tissue algorithm. COMPARISON: CT CT ABDOMEN PELVIS W from 08/19/[address] LUMBAR SPINE RECONS from 12/29/2023 FINDINGS: Lung Bases: No acute findings. Liver: Normal density. No measurable mass. Gallbladder and biliary tract: No radiodense calculus. No biliary ductal dilation. Pancreas: No abnormal calcifications or inflammatory process. Spleen: Normal size. Kidneys: Normal size, contour and axis.No radiodense stones or obstructive uropathy. Simple renal cy sts. No follow-up recommended. No suspicious masses seen. Adrenal glands: No mass is seen. Lymph nodes: Within normal limits. Vasculature: Abdominal aorta non-dilated. Bladder: Or distended but unremarkable. No stones. No gross wall thickening. No evidence of mass. Bowel: Diverticulum of the descending duodenum. Appendix normal. Diverticulosis of descending and s igmoid colon. No evidence of diverticulitis. No obstruction. No bowel wall thickening. Peritoneal cavity: No ascites.No free air. No focal collection. No mesenteric inflammatory response. Reproductive organs: Within normal limits. Spine/Bones: Unremarkable for age. No evidence of fracture, lytic or blastic lesion. No visible d isc herniation. The alignment is normal. No evidence of central canal stenosis. Mild degenerative dis c changes. Mild facet degenerative changes cause mild neural foraminal narrowing at L5-S1. Soft Tissues: Within normal limits. IMPRESSION: Unremarkable CT scan of the abdomen and pelvis. No evidence of urinary tract calculi or hydronephrosi s. Mild degenerative changes in lumbar spine. No acute abnormality. RADIATION DOSE DELIVERED: 379.45mGy.cm Total DLP 379.45mGy.cm Total DLP DATA REPOSITORY: All CT scans at this facility are submitted to the National Radiology Data Registry (NRDR) Dose Index Registry (DIR) with the [employer] (ACR). RADIATION OPTIMIZATION: All CT scans at this facility use at least one of these dose optimization te chniques: automated exposure control; mA and/or kV adjustment per patient size (includes targeted exa ms where dose is matched to clinical indication); or iterative reconstruction.
[2023-12-29] MEDS: ACETAMINOPHEN 1,000 MG/100 ML BAG 400 MG IVPB (20:15)
[2023-12-29] MEDS: MORPHine 10 MG/ML VIAL 6 MG IVP (20:16)
[2023-12-29] MEDS: Lidocaine 5% Patch 1 PATCH TP (20:16)
[2023-12-29] MEDS: Ibuprofen 400 MG TAB PO (20:16)
[2023-12-29] MEDS: Ondansetron 4 MG/2 ML VIAL IVP (20:17)
[2023-12-29 20:27] LABS: Lactate 1.3 mmol/L (0.6-1.4)
[2023-12-29 20:35] LABS: Abs Immature Grans 0.08 10^3/uL (0.0-0.06); Absolute Basophil Count 0.09 10^3/uL (0.0-0.2); Absolute Eosinophil Count 0.34 10^3/uL (0.0-0.7); Absolute Lymphocyte Count 2.97 10^3/uL (1.2-3.4); Absolute Monocyte Count 0.77 10^3/uL (0.1-0.8); Absolute Neutrophil Count 4.21 10^3/uL (1.2-6.7); Basophils % 1.1 %; HGB 16.2 g/dL (13.5-17.5); Immature Grans % 0.9 %; Lymphocytes % 35.1 %; MCH 31.2 pg (27.0-33.0); MCHC 35.2 % (32.0-36.0); MCV 89 fL (80-95); MPV 10.2 fL (8.0-11.0); Monocytes % 9.1 %; Neutrophils % 49.8 %; Platelet Count 225 10^3/uL (130-400); RDW 12.6 % (11.8-14.1); RDW-SD 41.2 fL; WBC 8.46 10^3/uL (4.4-10.8)
[2023-12-29 20:44] LABS: ALT 27 U/L (16-63); AST 17 U/L (15-37); Albumin 3.9 g/dL (3.4-5.0); Alkaline Phosphatase 95 U/L (46-116); Anion Gap 10.3 mmol/L (3-11); BUN 23 mg/dL (7-18); Bilirubin, Total 0.32 mg/dL (0.2-1.0); CO2 24.7 mmol/L (21.0-32.0); CREATININE 1.4 mg/dL (0.70-1.30); Chloride 106 mmol/L (98-107); Estimated GFR 57.54 (mL/min/1.73m2); Glucose 108 mg/dL (74-106); Lipase 85 U/L (16-77); Potassium 4.5 mmol/L (3.5-5.1); Sodium 141 mmol/L (136-145); Total Protein 7.4 g/dL (6.4-8.2)
[2023-12-29 20:52] LABS: Calcium 9.7 mg/dL (8.5-10.1)
--- NOTE | 2023-12-29 21:36 | DI.VRAD_ITS ---
PROCEDURE INFORMATION: Exam: CT Abdomen And Pelvis Without Contrast Exam date and time: 12/29/2023 8:22 PM Age: 58 years old Clinical indication: Abdominal pain; Left; Patient HX: L CVA tenderness TECHNIQUE: Imaging protocol: Computed tomography of the abdomen and pelvis without contrast. Radiation optimization: All CT scans at this facility use at least one of these dose optimization techniques: automated exposure control; mA and/or kV adjustment per patient size (includes targeted exams where dose is matched to clinical indication); or iterative reconstruction. COMPARISON: CT ABDOMEN PELVIS W 08/19/2023 3:19 PM FINDINGS: Liver: Unremarkable liver. No mass identified. Gallbladder and biliary ducts: The gallbladder is unremarkable. No calcified stones. No ductal dilation. Pancreas: No ductal dilation. No pancreatic lesion seen. Spleen: The spleen is unremarkable. No splenomegaly. Adrenal glands: The adrenal glands are unremarkable. No defined mass. Kidneys and ureters: There are 2 simple appearing exophytic cysts seen in the right kidney measuring approximately 2.9 cm and 2.4 cm. No hydronephrosis. No nephrolithiasis. Mild perinephric stranding again noted, similar to prior examination and may be secondary to chronic scarring. Stomach and bowel: No bowel obstruction. A large duodenal diverticulum is again noted. There is sigmoid diverticulosis without acute diverticulitis. Appendix: No evidence of appendicitis. Intraperitoneal space: No free air. No significant fluid collection. Vasculature: No abdominal aortic aneurysm. Lymph nodes: No enlarged lymph nodes. Urinary bladder: Unremarkable urinary bladder. Reproductive: Unremarkable as visualized. Bones/joints: No acute fracture. No severe degenerative changes in the lumbar spine. Soft tissues: Unremarkable. IMPRESSION: 1. No nephrolithiasis or hydronephrosis. 2. Stable perinephric stranding possibly from prior or acute on chronic infectious/inflammatory etiology. Clinical correlation recommended. Dictated and Authenticated by: Christin Stevens MD. Ordering:RAMIRO Olivas MD
[2023-12-29 21:57] LABS: Bilirubin Negative (Negative); Blood Small (Negative); Clarity Clear (Clear); Glucose Negative (Negative); Ketones Negative (Negative); Leukocyte Esterase Negative (Negative); Nitrite Negative (Negative); Specific Gravity 1.025 (1.005-1.025); Urobilinogen 0.2 mg/dL (Up to 0.2)
--- NOTE | 2023-12-29 22:03 | DI.VRAD_ITS ---
PROCEDURE INFORMATION: Exam: CT Lumbar Spine Without Contrast Exam date and time: 12/29/2023 8:22 PM Age: 58 years old Clinical indication: Pain; L lumbar tenderness TECHNIQUE: Imaging protocol: Computed tomography of the lumbar spine without contrast. Radiation optimization: All CT scans at this facility use at least one of these dose optimization techniques: automated exposure control; mA and/or kV adjustment per patient size (includes targeted exams where dose is matched to clinical indication); or iterative reconstruction. COMPARISON: MR LUMBAR SPINE WO/W 06/19/2022 10:55 AM FINDINGS: Bones/joints: No acute fracture. Normal alignment. No severe disc bulge or herniation. No severe spinal canal stenosis. Mild bilateral neural foraminal noted at L5-S1 secondary to mild facet arthropathy and mild disc bulging. Soft tissues: Unremarkable. IMPRESSION: 1. No acute fracture or listhesis. 2. Mild degenerative changes noted. Dictated and Authenticated by: Christin Stevens MD. Ordering:RAMIRO Olivas MD
[2023-12-29 22:04] LABS: Epithelial Cells Rare HPF (Negative); WBC 0-2 HPF (0-5)
[2023-12-29 22:05] LABS: Bacteria Rare HPF (Negative); C & S Indicated? No; Casts 0-2 Hyaline LPF (Negative); Mucus Moderate (Negative)
== END 2023-12-29 22:42 | disposition home or self-care (01) ==
PROVIDERS: Emergency Provider Physician Assistant; PCP Student in an Organized Health Care Education/Training Program
DX: M54.6 Pain in thoracic spine (principal); M54.50 Low back pain, unspecified; F17.200 Nicotine dependence, unspecified, uncomplicated; E11.69 Type 2 diabetes mellitus with other specified complication; E66.9 Obesity, unspecified; N18.30 Chronic kidney disease, stage 3 unspecified; I10 Essential (primary) hypertension; K21.9 Gastro-esophageal reflux disease without esophagitis; G90.50 Complex regional pain syndrome I, unspecified
CPT/HCPCS: 36415; 80053; 83690; 96365; 96375; 99284; 74176; 81003; 81015; 83605; 85025; J0131; J2270; J2405

== ENCOUNTER 2023-12-30 11:59 | Emergency (ER) | payer MEDICARE, MEDICAID, SELFPAY ==
[2023-12-30] VITALS (14 sets, daily range): BP systolic 91–123; BP diastolic 22–71; PULSE 49–55; RESP 14–26; TEMP 36.5; O2SAT 95–98
--- NOTE | 2023-12-30 12:00 | RT.EKG_ITS ---
APPROVED REPORT Exam: Resting ECG Reason for Exam: Back Pain Patient Location: E HR:54 bpm ECG Measurements Heart Rate 54 AXIS NM 163 P 8 QRSd 94 QRS 23 QT 430 T 43 QTc 409 Conclusion Sinus bradycardia...rate< 60 I have reviewed and interpreted ECG and agree with software generated interpretation.
--- NOTE | 2023-12-30 12:24 | ED.GENADUL_ITS ---
Discharge Plan Disposition Patient Disposition: Home Condition: Stable Discharge Details Clinical Impression: Lumbago Primary Care Provider: Angus Barnett ED Provider: Petty Strong Home Meds and New Rx's Prescriptions: New cyclobenzaprine 10 mg tablet 10 mg PO BID PRN (Reason: muscle spasm) Qty: 10 0RF Rx Instructions: Please take 1 tablet twice a day as needed for muscle spasm. prednisone 50 mg tablet 50 mg PO DAILY 5 Days Qty: 5 0RF Rx Instructions: Take 1 tablet daily for the next 5 days No Action (DME) lancets [FreeStyle Lancets] 28 gauge misc See Rx Instructions .ROUTE .MEDSUPPLY Qty: 25 Rx Instructions: As directed albuterol sulfate [Ventolin HFA] 90 mcg/actuation HFA aerosol inhaler 1 - 2 puff Inhalation Q4H PRN Qty: 1 6RF Patient Comments: 09/03/21 pt reports he hasnt used in @ 5 months Rx Instructions: PHARMACY: PLEASE DISPENSE ALBUTEROL BRAND COVERED BY INSURANCE gemfibrozil [Lopid] 600 mg tablet 600 mg PO DAILY Qty: 90 3RF atorvastatin 20 mg tablet 20 mg PO DAILY Qty: 90 3RF pantoprazole [Protonix] 40 mg tablet,delayed release (DR/EC) 40 mg PO DAILY Qty: 30 12RF sucralfate [Carafate] 1 gram tablet 1 g PO HS Qty: 30 12RF lisinopril 10 mg tablet 5 mg PO DAILY nitroglycerin [Nitrostat] 0.4 mg tablet, sublingual 0.4 mg Sublingual Q5 MIN PRN X3 Qty: 100 1RF Patient Comments: 09/03/21 pt reports he hasnt taken in @ 3 months Rx Instructions: 1 tab sublingual q5m PRN x3 chest pain cholecalciferol (vitamin D3) [Vitamin D3] 50 mcg (2,000 unit) tablet 2,000 unit PO DAILY Qty: 90 3RF aspirin 81 mg tablet,delayed release (DR/EC) 81 mg PO DAILY 90 Days Qty: 90 3RF (DME) FreeStyle Lite Strips Strip See Rx Instructions .ROUTE .MEDSUPPLY Qty: 100 3RF Patient Comments: pt. states he checks his sugars when he thinks his sugars high Rx Instructions: Test daily to keep HbA1c less than 6.5%; Dx: E11.9 acetaminophen 500 mg tablet 500 mg PO Q6H PRN (Reason: pain) Qty: 60 2RF ibuprofen 600 mg tablet 600 mg PO TID PRN (Reason: pain) Qty: 60 0RF insulin glargine [Basaglar KwikPen U-100 Insulin] 100 unit/mL (3 mL) insulin pen 15 unit subcut QAM Qty: 30 0RF metformin 500 mg tablet extended release 24 hr 1,000 mg PO TID Qty: 180 3RF Rx Instructions: for diabetes, two tabs in the morning oxycodone 5 mg tablet 5 mg PO Q8H Discharge Instructions Instructions: Managing acute pain at home, Low Back Pain ED Additional Instructions: Please use the muscle relaxers as directed. Continue to follow the instructions from the visit yesterday please take the prednisone tablets once daily for the next 5 days. This will decrease inflammation. No evidence of elevation of your labs. Your lipase is actually decreased from yesterday. Follow up with primary care provider in 3-5 days. Return to ED sooner if any worsening or concerns. A physical therapy referral has been placed for you you may also consider chiropractor. Alternate ice and heat. Stand Alone Forms: Physical Therapy Referral Referrals: Angus Barnett [Primary Care Provider] - 5 days HPI General Mode of arrival: ambulatory . Date/Time Provider Initiated Documentation: 12/30/23 12:03 . Limitations to Documentation: no limitations . Information obtained by: patient, RN notes reviewed and old records reviewed . HPI Narrative: Patient seen here yesterday had extensive workup and a CT abdomen pelvis for some left lower back pain which is constant not changed by movement reports since then he has had nausea, lightheadedness and continued pain despite oxycodone. Denies any injuries. Denies any problems urinating. Past medical history includes urinary incontinence, stage III chronic kidney disease, sleep apnea. Related Data Home Medications ?Medication ?Instructions ?Recorded ?Confirmed lancets 28 gauge (FreeStyle #25 ea 08/29/19 12/30/23 Lancets) nitroglycerin 0.4 mg sublingual 0.4 mg sublingual Q5 MIN PRN X3 09/21/19 12/30/23 tablet (Nitrostat) chest pain #100 tabs albuterol sulfate 90 mcg/actuation 1 - 2 puff inhalation Q4H PRN ##1 10/20/19 12/30/23 aerosol inhaler (Ventolin HFA) cholecalciferol (vitamin D3) 50 2,000 unit PO DAILY #90 tab-caps 06/28/20 12/30/23 mcg (2,000 unit) tablet (Vitamin D3) atorvastatin 20 mg tablet 20 mg PO DAILY #90 tabs 11/09/20 12/30/23 gemfibrozil 600 mg tablet (Lopid) 600 mg PO DAILY #90 tabs 11/09/20 12/30/23 aspirin 81 mg tablet,delayed 81 mg PO DAILY 90 days ##90 01/31/21 12/30/23 release blood sugar diagnostic (FreeStyle #100 ea 03/14/21 12/30/23 Lite Strips) pantoprazole 40 mg tablet,delayed 40 mg PO DAILY #30 tabs 05/23/21 12/30/23 release (Protonix) sucralfate 1 gram tablet (Carafate) 1 g PO HS #30 tabs 05/23/21 12/30/23 lisinopril 10 mg tablet 5 mg PO DAILY 10/11/21 12/30/23 acetaminophen 500 mg tablet 500 mg PO Q6H PRN pain #60 tabs 12/04/21 12/30/23 ibuprofen 600 mg tablet 600 mg PO TID PRN pain #60 tabs 12/04/21 12/30/23 insulin glargine 100 unit/mL (3 15 unit (0.15 mL) subcut QAM #30 mL 10/02/23 12/30/23 mL) subcutaneous pen (Sree Renee U-100 Insulin) metformin 500 mg tablet,extended 1,000 mg (2 x 500 mg) PO TID #180 10/02/23 12/30/23 release 24 hr tab-caps cyclobenzaprine 10 mg tablet 10 mg PO BID PRN muscle spasm #10 12/30/23 tabs oxycodone 5 mg tablet 5 mg PO Q8H 12/30/23 12/30/23 prednisone 50 mg tablet 50 mg PO DAILY Inflammation 5 days 12/30/23 #5 tabs Previous Rx's ?Medication ?Instructions ?Recorded nitroglycerin 0.4 mg sublingual 0.4 mg sublingual Q5 MIN PRN X3 08/05/20 tablet (Nitrostat) chest pain #100 tabs albuterol sulfate 90 mcg/actuation 1 - 2 puff inhalation Q4H PRN ##1 10/20/19 aerosol inhaler (Ventolin HFA) cholecalciferol (vitamin D3) 50 2,000 unit PO DAILY #90 tab-caps 06/28/20 mcg (2,000 unit) tablet (Vitamin D3) atorvastatin 20 mg tablet 20 mg PO DAILY #90 tabs 11/09/20 gemfibrozil 600 mg tablet (Lopid) 600 mg PO DAILY #90 tabs 11/09/20 aspirin 81 mg tablet,delayed 81 mg PO DAILY 90 days ##90 01/31/21 release blood sugar diagnostic (FreeStyle #100 ea 03/14/21 Lite Strips) pantoprazole 40 mg tablet,delayed 40 mg PO DAILY #30 tabs 05/23/21 release (Protonix) sucralfate 1 gram tablet (Carafate) 1 g PO HS #30 tabs 05/23/21 acetaminophen 500 mg tablet 500 mg PO Q6H PRN pain #60 tabs 12/04/21 ibuprofen 600 mg tablet 600 mg PO TID PRN pain #60 tabs 12/04/21 insulin glargine 100 unit/mL (3 15 unit (0.15 mL) subcut QAM #30 mL 10/02/23 mL) subcutaneous pen (Basaglar KwikPen U-100 Insulin) metformin 500 mg tablet,extended 1,000 mg (2 x 500 mg) PO TID #180 10/02/23 release 24 hr tab-caps cyclobenzaprine 10 mg tablet 10 mg PO BID PRN muscle spasm #10 12/30/23 tabs prednisone 50 mg tablet 50 mg PO DAILY Inflammation 5 days 12/30/23 #5 tabs Allergies Allergy/AdvReac Type Severity Reaction Status Date / Time celecoxib Allergy Intermediate Rash, Verified 12/30/23 12:03 urticaria naproxen Allergy Intermediate Itchy Welts Verified 12/30/23 12:03 General Stated Complaint: Nk/Back Pain JAMES: 3 Review of Systems All systems reviewed & are unremarkable except as noted in HPI and below Musculoskeletal Musculoskeletal: Reports as per HPI and Reports back pain Exam Narrative Exam Narrative: Constitutional: Alert and oriented x3. Appears stated age. Normal body habitus. Head: Normocephalic, no trauma. Eyes: Pupils PERRL, Red reflex noted, EOM's intact. Eyelids symmetrical without lesions, discharge, or swelling. ENT: Bilateral TM's WNL, External ear normal to inspection, no mastoid TTP, swelling, or erythema, Nasal turbinates WNL, no nasal discharge. Normal dentition, Posterior pharynx WNL, no exudate. Chest: RRR, Normal S1, S2, distal pulses intact. Resp: Lungs clear to auscultation bilaterally, no wheezes, rales, or rhonchi. Abdomen: Soft, non-distended, Normoactive bowel sounds all 4 quads. Musculoskeletal: Normal gait, Moves all 4 extremities without difficulty. Skin: No suspicious rashes or lesions. Capillary refill less than 2 sec. Neurologic: Cranial nerves II-XII intact. Alert and oriented x 3. Motor: No deficits noted. Sensory: Intact bilaterally all 4 extremities. Hematologic/Lymphatic: No ecchymosis, no lymphadenopathy. Course Vital Signs Vital signs: Vital Signs Temperature 36.5 C 12/30/23 12:01 Pulse 53 L 12/30/23 12:01 Respiratory Rate 16 12/30/23 12:01 Blood Pressure 123/71 12/30/23 12:01 Pulse Oximetry 95 12/30/23 12:01 Temperature 36.5 C 12/30/23 12:01 Pulse 53 L 12/30/23 12:01 Respiratory Rate 16 12/30/23 12:01 Respiratory Effort Normal 12/30/23 12:04 Blood Pressure 123/71 12/30/23 12:01 Pulse Oximetry 95 12/30/23 12:01 Oxygen Delivery Method Room Air 12/30/23 12:01 Oxygen Flow Rate 0 12/30/23 12:01 Pain Level 9 12/30/23 12:01 Medical Decision Making 58 year old Patient seen here yesterday had extensive workup and a CT abdomen pelvis for some left lower back pain which is constant not changed by movement reports since then he has had nausea, lightheadedness and continued pain despite oxycodone. Denies any injuries. Denies any problems urinating. Past medical history includes urinary incontinence, stage III chronic kidney disease, sleep apnea. EKG within normal limits, troponin is 9 which is within normal limits. Patient given a lidocaine patch here in the department. Will give Flexeril and prednisone and have patient follow-up with PCP or chiropractor or physical therapy referral will also be given. This text was generated using [employer] system, please disregard any oddities of phrase or misspellings. Medical Records Medical records reviewed: Yes I reviewed the patient's medical records. Lab Data Lab results reviewed: Yes I reviewed the patient's lab results. Labs: Laboratory Tests Range/Units 12/30/23 12/30/23 12:44 13:23 WBC (4.4-10.8) 10^3/uL 9.45 RBC (4.36-5.78) 10^6/uL 5.05 Hgb (13.5-17.5) g/dL 15.2 Hct (40.0-50.0) % 46.1 MCV (80-95) fL 91 MCH (27.0-33.0) pg 30.1 MCHC (32.0-36.0) % 33.0 D RDW (11.8-14.1) % 12.7 Plt Count (130-400) 10^3/uL 208 MPV (8.0-11.0) fL 10.2 Immature Gran % % 0.8 Neutrophils % % 70.6 Lymphocytes % % 17.2 Monocytes % % 8.0 Eosinophils % % 2.4 Basophils % % 1.0 Nucleated RBC % (0.0-0.3) % 0.0 Absolute Neutrophils (1.2-6.7) 10^3/uL 6.66 Absolute Lymphocytes (1.2-3.4) 10^3/uL 1.63 Absolute Monocytes (0.1-0.8) 10^3/uL 0.76 Absolute Eosinophils (0.0-0.7) 10^3/uL 0.23 Absolute Basophils (0.0-0.2) 10^3/uL 0.09 Sodium (136-145) mmol/L 138 Potassium (3.5-5.1) mmol/L 4.3 Chloride (98-107) mmol/L 103 Carbon Dioxide (21.0-32.0) mmol/L 26.7 Anion Gap (3-11) mmol/L 8.3 BUN (7-18) mg/dL 25 H Creatinine (0.70-1.30) mg/dL 1.4 H Est GFR (CKD-EPI 2020) (mL/min/1.73m2) 57.54 Glucose (74-106) mg/dL 133 H Calcium (8.5-10.1) mg/dL 9.5 Total Bilirubin (0.2-1.0) mg/dL 0.34 AST (15-37) U/L 14 L ALT (16-63) U/L 27 Alkaline Phosphatase (46-116) U/L 88 Troponin I (<or=76) ng/L 9 Cancelled Total Protein (6.4-8.2) g/dL 7.5 Albumin (3.4-5.0) g/dL 3.9 Lipase (16-77) U/L 51 Quality:SDOH Health Related Social Needs: No Data to Display PFSH All Active Problems (Updated 12/30/23 @ 13:19 by Petty Strong NP) Lumbago (Acute) Back pain of thoracolumbar region (Acute) Cellulitis (Acute) No-show for appointment (Acute) Abscess (Acute) Internal derangement of right knee (Acute) Contusion of right knee (Acute 09/04/23) H/O urinary frequency (Acute) Abnormal stress test (Chronic) Tobacco use disorder (Chronic) Quit 2019, restarted late in the year Vitamin D deficiency (Chronic) Chronic kidney disease (CKD), stage III (moderate) (Chronic 05/26/16) ? due to DM or to hypertension Diabetes mellitus type 2 in obese (Chronic 02/19/16) presented with polyuria, elevated FS on friend's glucometer, A1c 14 at [facility] ER Essential hypertension (Chronic) goal <140/85 Gastroesophageal reflux disease without esophagitis (Chronic 12/05/11) ER 11/2014 rx PPI Microscopic hematuria (Chronic 02/27/14) CT neg; JUSTINO neg; persists 01/2015 Mixed hyperlipidemia (Chronic 02/16/01) low HDL 27; SL HIGH TG; CV RISK (12/2016): 27%: rec Statin Obesity, unspecified (Chronic 12/05/11) 1993 165#; 180 gives BMI <30 05/06/21 [facility], BMI 35.10 Obstructive sleep apnea (Chronic 03/10/16) [id number], severe in REM sleep Sleep study PSG on 03/10/16: AHI 20.1; SPO2 shailesh 82%; CPAP begun 06/08/16. with improvement in fatigue 06/29/16 restudied higher pressures needed assoc. with treatment of central sleep apnea Complex regional pain syndrome (Chronic 06/27/13) Type 2 diabetes mellitus (Chronic 12/05/11) Chest pain (Acute) Hypertrophy of tonsils (Acute) 02/21/2019 ENT, Dr Lange Dysfunction of left eustachian tube (Acute) 02/21/[address] Lange Edentulous (Acute) Chronic maxillary sinusitis (Acute) History of sinusitis (Acute) Abdominal obesity (Acute) Chest pain (Acute) Bilateral hydrocele (Acute) Abdominal pain (Acute) Lightheadedness (Acute) Hematuria (Acute) Family history of cerebral aneurysm (Chronic) Mother in Mar 2020 Right arm numbness (Acute) Functional bowel disorder (Acute) Diverticulosis (Chronic) Colonoscopy June 2019 Other constipation (Acute ~2020) [facility] Polyp of colon (Acute ~2020) [facility] Right lower quadrant pain (Acute ~2020) [facility] Sinusitis (Acute) High triglycerides (Acute) Dizziness (Acute) Dyspnea (Acute) Gout (Chronic) R 1st PIP joint Umbilical hernia (Acute) History of alcohol abuse (Acute) Burning sensation (Acute) Eructation (Acute) Medical History Urinary incontinence without sensory awareness Sessile colonic polyp (09/26/14) @ transverse colon, sigmoid Paresthesias (10/27/16) nocturnal, bilateral, R>L, Median nerve, probable CTS Surgical History Cubital tunnel syndrome of both upper extremities S/P L cubital tunnel release: 09/03/2021 S/P R cubital tunnel release: 12/04/2021 Carpal tunnel syndrome of right wrist S/P ECTR: 12/04/2021 Carpal tunnel syndrome of left wrist S/P ECTR: 09/03/2021 Cystoscopy w/ joe retrograde pyelogram (03/01/15) Colonoscopy - IV Sedation (09/26/14) [facility]ri, serrated polyp, fragments of sessile serrated adenoma Extraction of cataract (12/17/16) Left Radha Manzo; R 11/19/16 Cardiac Cath (03/24/17) [id number] stents placed Family History Father , lung cancer at age 67. Essential hypertension Neoplasm Mother Diabetes Essential hypertension Sister No problems noted. Sister No problems noted. Social History Smoking/Tobacco Use Status: Current every day Tobacco Type: cigarettes Tobacco: How many years used: 41 Quit status: considering quitting Smoking risk assessment performed?: Yes Alcohol Intake: former Drug use: Never Substance use type: does not use Household members: significant other Housing: apartment Number of Children: 3 Communication Needs: None Do you need help understanding health information?: Often current occupation: Disabled Current gender identity: male What is your relationship status?: living with partner How often do you talk on the phone with friends or family?: three or more times per week How often do you get together with friends or relatives?: three or more times per week Panel score (0-1 are the most socially isolated patients): 2 What type of physical activity do you participate in: none Seatbelt use: always 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
[2023-12-30] MEDS: Lidocaine 5% Patch 1 PATCH TP (12:47)
[2023-12-30 12:51] LABS: Abs Immature Grans 0.08 10^3/uL (0.0-0.06); Absolute Basophil Count 0.09 10^3/uL (0.0-0.2); Absolute Eosinophil Count 0.23 10^3/uL (0.0-0.7); Absolute Lymphocyte Count 1.63 10^3/uL (1.2-3.4); Absolute Monocyte Count 0.76 10^3/uL (0.1-0.8); Absolute Neutrophil Count 6.66 10^3/uL (1.2-6.7); Eosinophils % 2.4 %; HCT 46.1 % (40.0-50.0); HGB 15.2 g/dL (13.5-17.5); Immature Grans % 0.8 %; Lymphocytes % 17.2 %; MCH 30.1 pg (27.0-33.0); MCV 91 fL (80-95); MPV 10.2 fL (8.0-11.0); Neutrophils % 70.6 %; Platelet Count 208 10^3/uL (130-400); RBC 5.05 10^6/uL (4.36-5.78); RDW 12.7 % (11.8-14.1); RDW-SD 43.1 fL; WBC 9.45 10^3/uL (4.4-10.8)
[2023-12-30 13:07] LABS: ALT 27 U/L (16-63); AST 14 U/L (15-37); Albumin 3.9 g/dL (3.4-5.0); Alkaline Phosphatase 88 U/L (46-116); Anion Gap 8.3 mmol/L (3-11); BUN 25 mg/dL (7-18); Bilirubin, Total 0.34 mg/dL (0.2-1.0); CO2 26.7 mmol/L (21.0-32.0); CREATININE 1.4 mg/dL (0.70-1.30); Chloride 103 mmol/L (98-107); Estimated GFR 57.54 (mL/min/1.73m2); Glucose 133 mg/dL (74-106); Lipase 51 U/L (16-77); Potassium 4.3 mmol/L (3.5-5.1); Sodium 138 mmol/L (136-145); Total Protein 7.5 g/dL (6.4-8.2); Troponin I 9 ng/L (<or=76)
[2023-12-30 13:21] LABS: Calcium 9.5 mg/dL (8.5-10.1)
[2023-12-30] MEDS: predniSONE 20 MG TAB 60 MG PO (13:21)
[2023-12-30] MEDS: Cyclobenzaprine 10 MG TAB, 3 TABS/BTL PO (13:21)
== END 2023-12-30 14:47 | disposition home or self-care (01) ==
PROVIDERS: Emergency Provider Registered Nurse Emergency; PCP Student in an Organized Health Care Education/Training Program
DX: M54.50 Low back pain, unspecified (principal); R11.0 Nausea; E11.22 Type 2 diabetes mellitus with diabetic chronic kidney disease; I12.9 Hypertensive chronic kidney disease with stage 1 through stage 4 chronic kidney disease, or unspecified chronic kidney disease; N18.30 Chronic kidney disease, stage 3 unspecified; E78.2 Mixed hyperlipidemia; F17.210 Nicotine dependence, cigarettes, uncomplicated; Z79.82 Long term (current) use of aspirin; Z79.4 Long term (current) use of insulin; Z79.84 Long term (current) use of oral hypoglycemic drugs
CPT/HCPCS: 80053; 83690; 93005; 99284; 84484; 85025; 93010; J7512

== ENCOUNTER 2024-03-02 12:26 | Emergency (ER) | payer MEDICARE, MEDICAID, SELFPAY ==
[2024-03-02] VITALS (45 sets, daily range): BP systolic 105–147; BP diastolic 40–75; PULSE 46–67; RESP 8–29; TEMP 36.9; O2SAT 93–99
--- NOTE | 2024-03-02 12:15 | RT.EKG_ITS ---
APPROVED REPORT Exam: Resting ECG Reason for Exam: SOB Patient Location: E HR:59 bpm ECG Measurements Heart Rate 59 AXIS AR 165 P 1 QRSd 92 QRS 7 QT 409 T 30 QTc 407 Conclusion Sinus bradycardia...rate< 60
[2024-03-02 12:58] LABS: Abs Immature Grans 0.04 10^3/uL (0.0-0.06); Absolute Basophil Count 0.07 10^3/uL (0.0-0.2); Absolute Eosinophil Count 0.16 10^3/uL (0.0-0.7); Absolute Lymphocyte Count 1.89 10^3/uL (1.2-3.4); Absolute Monocyte Count 0.78 10^3/uL (0.1-0.8); Absolute Neutrophil Count 4.62 10^3/uL (1.2-6.7); Basophils % 0.9 %; Eosinophils % 2.1 %; HCT 46.2 % (40.0-50.0); HGB 15.6 g/dL (13.5-17.5); Immature Grans % 0.5 %; MCH 29.8 pg (27.0-33.0); MCHC 33.8 % (32.0-36.0); MCV 88 fL (80-95); MPV 10.2 fL (8.0-11.0); Monocytes % 10.3 %; Neutrophils % 61.2 %; Platelet Count 194 10^3/uL (130-400); RBC 5.23 10^6/uL (4.36-5.78); RDW 12.8 % (11.8-14.1); RDW-SD 41.4 fL; WBC 7.56 10^3/uL (4.4-10.8)
[2024-03-02 13:16] LABS: ALT 19 U/L (16-63); AST 15 U/L (15-37); Albumin 3.7 g/dL (3.4-5.0); Alkaline Phosphatase 89 U/L (46-116); Anion Gap 7.7 mmol/L (3-11); BUN 18 mg/dL (7-18); Bilirubin, Total 0.37 mg/dL (0.2-1.0); CO2 27.3 mmol/L (21.0-32.0); CREATININE 1.2 mg/dL (0.70-1.30); Calcium 9.4 mg/dL (8.5-10.1); Chloride 106 mmol/L (98-107); Estimated GFR 69.23 (mL/min/1.73m2); Glucose 150 mg/dL (74-106); Potassium 3.6 mmol/L (3.5-5.1); Sodium 141 mmol/L (136-145)
[2024-03-02 13:20] LABS: Troponin I < 4 ng/L (<or=76)
--- NOTE | 2024-03-02 13:30 | DI.CT_ITS ---
Exam(s) CT CHEST PE CTA EXAM: CT CHEST PE CTA CLINICAL HISTORY: chest pain, SOB. TECHNIQUE: Imaging Protocol: Axial CT angiography was performed with multi-slice acquisition and mu lti-planar and/or 3D reconstructions. Lung Computer Aided Detection (CAD) was utilized. CONTRAST MATERIAL: Intravenous: Omnipaque 350 contrast volume:100 mL COMPARISON: CT CT CHEST W from 09/12/[address] ABDOMEN PELVIS W from 08/19/[address] RENAL COLIC WO from 12/29/2023 FINDINGS: Tracheobronchial tree: Patent where visualized. No bronchiectasis. Pulmonary parenchyma: There is dependent atelectasis present. No focal consolidating infiltrates are seen. There is scarring or atelectasis in the right middle lobe. No architectural distortion. Pulmonary Arteries: No evidence of filling defect to suggest pulmonary emboli. Mediastinum and Krysta: No dominant adenopathy or fluid collection. The esophagus is unremarkable. Visualized thyroid gland: Unremarkable. Pleura: No effusion or pneumothorax. Heart: The heart is not dilated. No coronary artery calcifications are seen. No pericardial effusion. Aorta: Due to the timing of the bolus, the thoracic aorta is not adequately opacified for evaluation of dissection. No aneurysm is present. Atherosclerotic calcification is present. Upper abdomen: There again seen bilateral renal cysts. These appears stable. No follow-up is recom mended. Soft tissues: Bilateral gynecomastia, right greater than left. Bones: Within normal limits for the patient's age. IMPRESSION: 1. No evidence of a pulmonary embolism or thoracic aortic aneurysm. 2. No acute pulmonary process. RADIATION DOSE DELIVERED: 133.98mGy.cm Total DLP DATA REPOSITORY: All CT scans at this facility are submitted to the National Radiology Data Registry (NRDR) Dose Index Registry (DIR) with the [employer] (A[employer]). RADIATION OPTIMIZATION: All CT scans at this facility use at least one of these dose optimization te chniques: automated exposure control; mA and/or kV adjustment per patient size (includes targeted exa ms where dose is matched to clinical indication); or iterative reconstruction.
--- NOTE | 2024-03-02 13:43 | ED.GENADUL_ITS ---
Discharge Plan Discharge Details Chief Complaint: SOB Primary Care Provider: Angus Barnett ED Provider: Colton Farooq Home Meds and New Rx's Prescriptions: No Action (DME) lancets [FreeStyle Lancets] 28 gauge misc See Rx Instructions .ROUTE .MEDSUPPLY Qty: 25 Rx Instructions: As directed albuterol sulfate [Ventolin HFA] 90 mcg/actuation HFA aerosol inhaler 1 - 2 puff Inhalation Q4H PRN Qty: 1 6RF Patient Comments: 09/03/21 pt reports he hasnt used in @ 5 months Rx Instructions: PHARMACY: PLEASE DISPENSE ALBUTEROL BRAND COVERED BY INSURANCE gemfibrozil [Lopid] 600 mg tablet 600 mg PO DAILY Qty: 90 3RF atorvastatin 20 mg tablet 20 mg PO DAILY Qty: 90 3RF pantoprazole [Protonix] 40 mg tablet,delayed release (DR/EC) 40 mg PO DAILY Qty: 30 12RF sucralfate [Carafate] 1 gram tablet 1 g PO HS Qty: 30 12RF lisinopril 10 mg tablet 5 mg PO DAILY nitroglycerin [Nitrostat] 0.4 mg tablet, sublingual 0.4 mg Sublingual Q5 MIN PRN X3 Qty: 100 1RF Patient Comments: 09/03/21 pt reports he hasnt taken in @ 3 months Rx Instructions: 1 tab sublingual q5m PRN x3 chest pain cholecalciferol (vitamin D3) [Vitamin D3] 50 mcg (2,000 unit) tablet 2,000 unit PO DAILY Qty: 90 3RF aspirin 81 mg tablet,delayed release (DR/EC) 81 mg PO DAILY 90 Days Qty: 90 3RF (DME) FreeStyle Lite Strips Strip See Rx Instructions .ROUTE .MEDSUPPLY Qty: 100 3RF Patient Comments: pt. states he checks his sugars when he thinks his sugars high Rx Instructions: Test daily to keep HbA1c less than 6.5%; Dx: E11.9 acetaminophen 500 mg tablet 500 mg PO Q6H PRN (Reason: pain) Qty: 60 2RF ibuprofen 600 mg tablet 600 mg PO TID PRN (Reason: pain) Qty: 60 0RF insulin glargine [Basaglar KwikPen U-100 Insulin] 100 unit/mL (3 mL) insulin pen 15 unit subcut QAM Qty: 30 0RF metformin 500 mg tablet extended release 24 hr 1,000 mg PO TID Qty: 180 3RF Rx Instructions: for diabetes, two tabs in the morning cyclobenzaprine 10 mg tablet 10 mg PO BID PRN (Reason: muscle spasm) Qty: 10 0RF Rx Instructions: Please take 1 tablet twice a day as needed for muscle spasm. HPI General Mode of arrival: ambulatory . Date/Time Provider Initiated Documentation: 03/02/24 12:38 . Limitations to Documentation: no limitations . Information obtained by: patient . HPI Narrative: 58-year-old male smoker (70 pk yr) with multiple medical problems including history of chronic kidney disease stage III, diabetes, hypertension, here with chief complaint of chest discomfort. Patient notes left-sided chest burning sensation that started yesterday. Discomfort has persisted. This morning he noticed associated shortness of breath. He has no associated leg swelling, calf pain, recent surgery or prolonged immobility. Related Data Home Medications ?Medication ?Instructions ?Recorded ?Confirmed lancets 28 gauge (FreeStyle #25 ea 08/29/19 03/02/24 Lancets) nitroglycerin 0.4 mg sublingual 0.4 mg sublingual Q5 MIN PRN X3 09/21/19 03/02/24 tablet (Nitrostat) chest pain #100 tabs albuterol sulfate 90 mcg/actuation 1 - 2 puff inhalation Q4H PRN ##1 10/20/19 03/02/24 aerosol inhaler (Ventolin HFA) cholecalciferol (vitamin D3) 50 2,000 unit PO DAILY #90 tab-caps 06/28/20 03/02/24 mcg (2,000 unit) tablet (Vitamin D3) atorvastatin 20 mg tablet 20 mg PO DAILY #90 tabs 11/09/20 03/02/24 gemfibrozil 600 mg tablet (Lopid) 600 mg PO DAILY #90 tabs 11/09/20 03/02/24 aspirin 81 mg tablet,delayed 81 mg PO DAILY 90 days ##90 01/31/21 03/02/24 release blood sugar diagnostic (FreeStyle #100 ea 03/14/21 03/02/24 Lite Strips) pantoprazole 40 mg tablet,delayed 40 mg PO DAILY #30 tabs 04/07/22 01/15/25 release (Protonix) sucralfate 1 gram tablet (Carafate) 1 g PO HS #30 tabs 05/23/21 03/02/24 lisinopril 10 mg tablet 5 mg PO DAILY 10/11/21 03/02/24 acetaminophen 500 mg tablet 500 mg PO Q6H PRN pain #60 tabs 12/04/21 03/02/24 ibuprofen 600 mg tablet 600 mg PO TID PRN pain #60 tabs 12/04/21 03/02/24 insulin glargine 100 unit/mL (3 15 unit (0.15 mL) subcut QAM #30 mL 10/02/23 03/02/24 mL) subcutaneous pen (Basaglar KwikPen U-100 Insulin) metformin 500 mg tablet,extended 1,000 mg (2 x 500 mg) PO TID #180 10/02/23 03/02/24 release 24 hr tab-caps cyclobenzaprine 10 mg tablet 10 mg PO BID PRN muscle spasm #10 12/30/23 03/02/24 tabs Previous Rx's ?Medication ?Instructions ?Recorded nitroglycerin 0.4 mg sublingual 0.4 mg sublingual Q5 MIN PRN X3 09/21/19 tablet (Nitrostat) chest pain #100 tabs albuterol sulfate 90 mcg/actuation 1 - 2 puff inhalation Q4H PRN ##1 10/20/19 aerosol inhaler (Ventolin HFA) cholecalciferol (vitamin D3) 50 2,000 unit PO DAILY #90 tab-caps 06/28/20 mcg (2,000 unit) tablet (Vitamin D3) atorvastatin 20 mg tablet 20 mg PO DAILY #90 tabs 11/09/20 gemfibrozil 600 mg tablet (Lopid) 600 mg PO DAILY #90 tabs 11/09/20 aspirin 81 mg tablet,delayed 81 mg PO DAILY 90 days ##90 01/31/21 release blood sugar diagnostic (FreeStyle #100 ea 03/14/21 Lite Strips) pantoprazole 40 mg tablet,delayed 40 mg PO DAILY #30 tabs 05/23/21 release (Protonix) sucralfate 1 gram tablet (Carafate) 1 g PO HS #30 tabs 05/23/21 acetaminophen 500 mg tablet 500 mg PO Q6H PRN pain #60 tabs 12/04/21 ibuprofen 600 mg tablet 600 mg PO TID PRN pain #60 tabs 12/04/21 insulin glargine 100 unit/mL (3 15 unit (0.15 mL) subcut QAM #30 mL 10/02/23 mL) subcutaneous pen (Basaglar KwikPen U-100 Insulin) metformin 500 mg tablet,extended 1,000 mg (2 x 500 mg) PO TID #180 10/02/23 release 24 hr tab-caps cyclobenzaprine 10 mg tablet 10 mg PO BID PRN muscle spasm #10 12/30/23 tabs Allergies Allergy/AdvReac Type Severity Reaction Status Date / Time celecoxib Allergy Intermediate Rash, Verified 03/02/24 14:49 urticaria naproxen Allergy Intermediate Itchy Welts Verified 03/02/24 14:49 General Stated Complaint: SOB JAMES: 3 Review of Systems All systems reviewed & are unremarkable except as noted in HPI and below Constitutional Constitutional: Denies fever(s) Exam Const General: cooperative and no acute distress HENMT Mouth: moist mucous membranes Eyes Conjunctivae: normal conjunctivae Sclera: normal sclerae Neck Neck: trachea midline and supple Resp Auscultation: clear to auscultation bilaterally, no rales, no rhonchi and no wheezes Cardio Rate: regular rate and not tachycardic Rhythm: regular rhythm Heart Sounds: no murmurs GI Palpation: soft, not firm, no guarding, no masses, not rigid and nontender Skin General skin exam: no rashes or lesions noted Neuro General: patient alert, patient awake and tone normal Extrem General: no calf tenderness and no edema Psych Appearance: grossly normal Mental Status: mental status grossly normal Course Vital Signs Vital signs: Vital Signs Temperature 36.9 C 03/02/24 12:30 Pulse 67 03/02/24 12:30 Respiratory Rate 16 03/02/24 12:30 Blood Pressure 126/57 L 03/02/24 12:30 Pulse Oximetry 98 03/02/24 12:30 Temperature 36.9 C 03/02/24 12:30 Temperature Source Temporal Artery Scan 03/02/24 12:30 Pulse 58 L 03/02/24 13:15 Pulse 60 03/02/24 13:20 Respiratory Rate 17 03/02/24 13:20 Respiratory Effort Short of Breath 03/02/24 12:37 Respiratory Depth Normal 03/02/24 12:37 Respiratory Pattern Normal 03/02/24 12:37 Blood Pressure 129/59 L 03/02/24 13:15 Blood Pressure Mean 82 03/02/24 13:15 Pulse Oximetry 96 03/02/24 13:20 Oxygen Delivery Method Room Air 03/02/24 12:37 Oxygen Flow Rate 0 03/02/24 12:30 Pain Level 5 03/02/24 12:30 Lab/Test Results Lab/Test Results: Laboratory Tests Range/Units 03/02/24 12:50 WBC (4.4-10.8) 10^3/uL 7.56 RBC (4.36-5.78) 10^6/uL 5.23 Hgb (13.5-17.5) g/dL 15.6 Hct (40.0-50.0) % 46.2 MCV (80-95) fL 88 MCH (27.0-33.0) pg 29.8 MCHC (32.0-36.0) % 33.8 RDW (11.8-14.1) % 12.8 Plt Count (130-400) 10^3/uL 194 MPV (8.0-11.0) fL 10.2 Immature Gran % % 0.5 Neutrophils % % 61.2 Lymphocytes % % 25.0 Monocytes % % 10.3 Eosinophils % % 2.1 Basophils % % 0.9 Nucleated RBC % (0.0-0.3) % 0.0 Absolute Neutrophils (1.2-6.7) 10^3/uL 4.62 Absolute Lymphocytes (1.2-3.4) 10^3/uL 1.89 Absolute Monocytes (0.1-0.8) 10^3/uL 0.78 Absolute Eosinophils (0.0-0.7) 10^3/uL 0.16 Absolute Basophils (0.0-0.2) 10^3/uL 0.07 Sodium (136-145) mmol/L 141 Potassium (3.5-5.1) mmol/L 3.6 Chloride (98-107) mmol/L 106 Carbon Dioxide (21.0-32.0) mmol/L 27.3 Anion Gap (3-11) mmol/L 7.7 BUN (7-18) mg/dL 18 Creatinine (0.70-1.30) mg/dL 1.2 Est GFR (CKD-EPI 2020) (mL/min/1.73m2) 69.23 Glucose (74-106) mg/dL 150 H Calcium (8.5-10.1) mg/dL 9.4 Total Bilirubin (0.2-1.0) mg/dL 0.37 AST (15-37) U/L 15 ALT (16-63) U/L 19 Alkaline Phosphatase (46-116) U/L 89 Troponin I (<or=76) ng/L < 4 Total Protein (6.4-8.2) g/dL 7.0 Albumin (3.4-5.0) g/dL 3.7 Medical Decision Making 1345 --58-year-old male with history of diabetes, coronary artery disease, hypertension, GERD, hypercholesterolemia, chronic smoker, here with chest discomfort since yesterday and associated shortness of breath today. Patient is saturating well in no respiratory distress he is hemodynamically stable. Concern for ACS. EKG was reviewed and interpreted by me: Please report, sinus bradycardia 59 bpm, no STEMI. Plan to check troponin. Patient did take asa today. Concern for acute pulmonary embolism. Plan to obtain CT imaging. 1554--CT of the chest was interpreted by radiology: 1. No evidence of a pulmonary embolism or thoracic aortic aneurysm. 2. No acute pulmonary process. Labs reviewed: Initial troponin and second troponin negative. 1610 --patient reassessed and still complaining of focal left anterior burning discomfort in his chest. Third troponin pending. Quality:SDOH Health Related Social Needs: No Data to Display PFSH All Active Problems No-show for appointment (Acute) Internal derangement of right knee (Acute) Contusion of right knee (Acute 09/04/23) H/O urinary frequency (Acute) Abnormal stress test (Chronic) Tobacco use disorder (Chronic) Quit 2019, restarted late in the year Vitamin D deficiency (Chronic) Chronic kidney disease (CKD), stage III (moderate) (Chronic 05/26/16) ? due to DM or to hypertension Diabetes mellitus type 2 in obese (Chronic 02/19/16) presented with polyuria, elevated FS on friend's glucometer, A1c 14 at [facility] ER Essential hypertension (Chronic) goal <140/85 Gastroesophageal reflux disease without esophagitis (Chronic 12/05/11) ER 11/2014 rx PPI Microscopic hematuria (Chronic 02/27/14) CT neg; JUSTINO neg; persists 01/2015 Mixed hyperlipidemia (Chronic 02/16/01) low HDL 27; SL HIGH TG; CV RISK (12/2016): 27%: rec Statin Obesity, unspecified (Chronic 12/05/11) 1993 165#; 180 gives BMI <30 05/06/21 [facility], BMI 35.10 Obstructive sleep apnea (Chronic 03/10/16) [id number], severe in REM sleep Sleep study PSG on 03/10/16: AHI 20.1; SPO2 shailesh 82%; CPAP begun 06/08/16. with improvement in fatigue 06/29/16 restudied higher pressures needed assoc. with treatment of central sleep apnea Complex regional pain syndrome (Chronic 06/27/13) Type 2 diabetes mellitus (Chronic 12/05/11) Chest pain (Acute) Hypertrophy of tonsils (Acute) 02/21/2019 ENT, Dr Lange Dysfunction of left eustachian tube (Acute) 02/21/[address] Lange Edentulous (Acute) Chronic maxillary sinusitis (Acute) History of sinusitis (Acute) Abdominal obesity (Acute) Chest pain (Acute) Bilateral hydrocele (Acute) Abdominal pain (Acute) Lightheadedness (Acute) Hematuria (Acute) Family history of cerebral aneurysm (Chronic) Mother in Mar 2020 Right arm numbness (Acute) Functional bowel disorder (Acute) Diverticulosis (Chronic) Colonoscopy June 2019 Other constipation (Acute ~2020) [facility] Polyp of colon (Acute ~2020) [facility] Right lower quadrant pain (Acute ~2020) [facility] Sinusitis (Acute) High triglycerides (Acute) Dizziness (Acute) Dyspnea (Acute) Gout (Chronic) R 1st PIP joint Umbilical hernia (Acute) History of alcohol abuse (Acute) Burning sensation (Acute) Eructation (Acute) Medical History Urinary incontinence without sensory awareness Sessile colonic polyp (09/26/14) @ transverse colon, sigmoid Paresthesias (10/27/16) nocturnal, bilateral, R>L, Median nerve, probable CTS Surgical History Cubital tunnel syndrome of both upper extremities S/P L cubital tunnel release: 09/03/2021 S/P R cubital tunnel release: 12/04/2021 Carpal tunnel syndrome of right wrist S/P ECTR: 12/04/2021 Carpal tunnel syndrome of left wrist S/P ECTR: 09/03/2021 Cystoscopy w/ joe retrograde pyelogram (03/01/15) Colonoscopy - IV Sedation (09/26/14) [facility] Perri, serrated polyp, fragments of sessile serrated adenoma Extraction of cataract (12/17/16) Left Radha Manzo; R 11/19/16 Cardiac Cath (03/24/17) [id number] stents placed Family History Father , lung cancer at age 67. Essential hypertension Neoplasm Mother Diabetes Essential hypertension Sister No problems noted. Sister No problems noted. Social History Smoking/Tobacco Use Status: Current every day Tobacco Type: cigarettes Tobacco: How many years used: 41 Quit status: considering quitting Smoking risk assessment performed?: Yes Alcohol Intake: former Drug use: Never Substance use type: does not use Household members: significant other Housing: apartment Number of Children: 3 Communication Needs: None Do you need help understanding health information?: Often current occupation: Disabled Current gender identity: male What is your relationship status?: living with partner How often do you talk on the phone with friends or family?: three or more times per week How often do you get together with friends or relatives?: three or more times per week Panel score (0-1 are the most socially isolated patients): 2 What type of physical activity do you participate in: none Seatbelt use: always Drive intox or ride w/intox otr flatbed driver: No Working smoke detector in home: No Fire extinguisher in home: No Carbon monox detector in home: No Do you feel safe at home: Yes Do you feel safe in your relationship?: Yes
[2024-03-02] MEDS: Omnipaque 350 MG/ML 100 ML BTL IJ (14:17)
[2024-03-02] MEDS: Normal Saline - Diluent 50 ML VIAL IJ (14:18)
[2024-03-02 14:38] LABS: Troponin I 4 ng/L (<or=76)
[2024-03-02 16:18] LABS: Troponin I 6 ng/L (<or=76)
--- NOTE | 2024-03-02 16:25 | W.EDPROG ---
Date of service: 03/02/24 Time of Service: 16:25 Medical Decision Making Patient reassessed and initial troponin negative, second troponin at 1 hour negative, third troponin at 3-hour negative. Patient reassessed and still having this burning discomfort anteriorly. No rash consistent with shingles. Plan to treat with acetaminophen. Plan for close outpatient follow-up with PCP. Patient will need further outpatient diagnostic testing including cardiac stress testing. Disposition decision was made weighing the risks and benefits of hospitalization versus outpatient treatment, the risk for further decompensation, and the patient's wishes. The patient was stable and requested discharge. Prior to discharge, my usual and customary return precautions were reviewed with the patient - this included follow-up instructions and reason to return to the emergency department if condition worsens, does not improve as expected, or other new concerns arise. Lab Data Lab results reviewed: Yes I reviewed the patient's lab results. Labs: Laboratory Tests Range/Units 03/02/24 03/02/24 03/02/24 12:50 14:00 15:55 WBC (4.4-10.8) 10^3/uL 7.56 RBC (4.36-5.78) 10^6/uL 5.23 Hgb (13.5-17.5) g/dL 15.6 Hct (40.0-50.0) % 46.2 MCV (80-95) fL 88 MCH (27.0-33.0) pg 29.8 MCHC (32.0-36.0) % 33.8 RDW (11.8-14.1) % 12.8 Plt Count (130-400) 10^3/uL 194 MPV (8.0-11.0) fL 10.2 Immature Gran % % 0.5 Neutrophils % % 61.2 Lymphocytes % % 25.0 Monocytes % % 10.3 Eosinophils % % 2.1 Basophils % % 0.9 Nucleated RBC % (0.0-0.3) % 0.0 Absolute Neutrophils (1.2-6.7) 10^3/uL 4.62 Absolute Lymphocytes (1.2-3.4) 10^3/uL 1.89 Absolute Monocytes (0.1-0.8) 10^3/uL 0.78 Absolute Eosinophils (0.0-0.7) 10^3/uL 0.16 Absolute Basophils (0.0-0.2) 10^3/uL 0.07 Sodium (136-145) mmol/L 141 Potassium (3.5-5.1) mmol/L 3.6 Chloride (98-107) mmol/L 106 Carbon Dioxide (21.0-32.0) mmol/L 27.3 Anion Gap (3-11) mmol/L 7.7 BUN (7-18) mg/dL 18 Creatinine (0.70-1.30) mg/dL 1.2 Est GFR (CKD-EPI 2020) (mL/min/1.73m2) 69.23 Glucose (74-106) mg/dL 150 H Calcium (8.5-10.1) mg/dL 9.4 Total Bilirubin (0.2-1.0) mg/dL 0.37 AST (15-37) U/L 15 ALT (16-63) U/L 19 Alkaline Phosphatase (46-116) U/L 89 Troponin I (<or=76) ng/L < 4 4 6 Total Protein (6.4-8.2) g/dL 7.0 Albumin (3.4-5.0) g/dL 3.7 Quality:SDOH Health Related Social Needs: No Data to Display Discharge Plan Disposition Patient Disposition: Home Condition: Stable Discharge Details Clinical Impression: Chest pain Primary Care Provider: Angus Barnett ED Provider: Colton Farooq Home Meds and New Rx's Prescriptions: Continued (DME) lancets [FreeStyle Lancets] 28 gauge misc See Rx Instructions .ROUTE .MEDSUPPLY Qty: 25 Rx Instructions: As directed albuterol sulfate [Ventolin HFA] 90 mcg/actuation HFA aerosol inhaler 1 - 2 puff Inhalation Q4H PRN Qty: 1 6RF Patient Comments: 09/03/21 pt reports he hasnt used in @ 5 months Rx Instructions: PHARMACY: PLEASE DISPENSE ALBUTEROL BRAND COVERED BY INSURANCE gemfibrozil [Lopid] 600 mg tablet 600 mg PO DAILY Qty: 90 3RF atorvastatin 20 mg tablet 20 mg PO DAILY Qty: 90 3RF pantoprazole [Protonix] 40 mg tablet,delayed release (DR/EC) 40 mg PO DAILY Qty: 30 12RF sucralfate [Carafate] 1 gram tablet 1 g PO HS Qty: 30 12RF lisinopril 10 mg tablet 5 mg PO DAILY nitroglycerin [Nitrostat] 0.4 mg tablet, sublingual 0.4 mg Sublingual Q5 MIN PRN X3 Qty: 100 1RF Patient Comments: 09/03/21 pt reports he hasnt taken in @ 3 months Rx Instructions: 1 tab sublingual q5m PRN x3 chest pain cholecalciferol (vitamin D3) [Vitamin D3] 50 mcg (2,000 unit) tablet 2,000 unit PO DAILY Qty: 90 3RF aspirin 81 mg tablet,delayed release (DR/EC) 81 mg PO DAILY 90 Days Qty: 90 3RF (DME) FreeStyle Lite Strips Strip See Rx Instructions .ROUTE .MEDSUPPLY Qty: 100 3RF Patient Comments: pt. states he checks his sugars when he thinks his sugars high Rx Instructions: Test daily to keep HbA1c less than 6.5%; Dx: E11.9 acetaminophen 500 mg tablet 500 mg PO Q6H PRN (Reason: pain) Qty: 60 2RF ibuprofen 600 mg tablet 600 mg PO TID PRN (Reason: pain) Qty: 60 0RF insulin glargine [Basaglar KwikPen U-100 Insulin] 100 unit/mL (3 mL) insulin pen 15 unit subcut QAM Qty: 30 0RF metformin 500 mg tablet extended release 24 hr 1,000 mg PO TID Qty: 180 3RF Rx Instructions: for diabetes, two tabs in the morning cyclobenzaprine 10 mg tablet 10 mg PO BID PRN (Reason: muscle spasm) Qty: 10 0RF Rx Instructions: Please take 1 tablet twice a day as needed for muscle spasm. Discharge Instructions Instructions: Chest Pain, Adult ED Additional Instructions: Please contact your primary care physician to arrange follow-up. Please call today to arrange timely follow-up. Further outpatient diagnostic testing including cardiac stress testing is indicated. Return to the ER immediately for any worsening or new concerning symptoms. Referrals: Angus Barnett [Primary Care Provider] - Discharge Data Discharge Date/Time-TO BE ENTERED AT DEPARTURE: 03/02/24 16:44
[2024-03-02] MEDS: ACETAMINOPHEN 1,000 MG/100 ML BAG 400 MG IVPB (16:26)
== END 2024-03-02 16:44 | disposition home or self-care (01) ==
PROVIDERS: Emergency Provider Student in an Organized Health Care Education/Training Program; PCP Student in an Organized Health Care Education/Training Program
DX: R07.9 Chest pain, unspecified (principal); R06.02 Shortness of breath; F17.210 Nicotine dependence, cigarettes, uncomplicated; Z86.79 Personal history of other diseases of the circulatory system; N18.30 Chronic kidney disease, stage 3 unspecified; E11.69 Type 2 diabetes mellitus with other specified complication; E66.9 Obesity, unspecified
CPT/HCPCS: 00123; 36415; 71275; 80053; 93005; 96374; 99285; 84484; 85025; 93010; 99284; J0131; J3490

== ENCOUNTER 2024-04-06 10:05 | Emergency (ER) | payer MEDICARE, MEDICAID, SELFPAY ==
[2024-04-06] VITALS (31 sets, daily range): BP systolic 123–167; BP diastolic 38–81; PULSE 46–66; RESP 10–26; TEMP 36.9; O2SAT 93–100
--- NOTE | 2024-04-06 10:00 | RT.EKG_ITS ---
APPROVED REPORT Exam: Resting ECG Reason for Exam: chest pain Patient Location: E HR:54 bpm ECG Measurements Heart Rate 54 AXIS AK 194 P 2 QRSd 86 QRS 11 QT 437 T 54 QTc 414 Conclusion Sinus bradycardia...rate< 60 I have reviewed and interpreted ECG and agree with software generated interpretation.
[2024-04-06 10:39] LABS: Abs Immature Grans 0.07 10^3/uL (0.0-0.06); Absolute Basophil Count 0.08 10^3/uL (0.0-0.2); Absolute Lymphocyte Count 2.37 10^3/uL (1.2-3.4); Absolute Monocyte Count 0.88 10^3/uL (0.1-0.8); Absolute Neutrophil Count 4.73 10^3/uL (1.2-6.7); Eosinophils % 2.4 %; HCT 48.6 % (40.0-50.0); HGB 16.2 g/dL (13.5-17.5); Immature Grans % 0.8 %; Lymphocytes % 28.5 %; MCH 29.6 pg (27.0-33.0); MCHC 33.3 % (32.0-36.0); MCV 89 fL (80-95); MPV 10.6 fL (8.0-11.0); Monocytes % 10.6 %; Neutrophils % 56.7 %; Platelet Count 191 10^3/uL (130-400); RBC 5.48 10^6/uL (4.36-5.78); RDW 13.1 % (11.8-14.1); RDW-SD 42.8 fL; WBC 8.33 10^3/uL (4.4-10.8)
--- NOTE | 2024-04-06 10:45 | DI.RAD_ITS ---
Exam(s) XR CHEST 2V PA LATERAL EXAM: XR CHEST 2V PA LATERAL CLINICAL HISTORY: left chest pain post fall TECHNIQUE: 2D digital imaging was performed of the chest. Two images were obtained. PA and lateral views were obtained. COMPARISON: CR XR CHEST 2V PA LATERAL from 11/28/2020 CR,XR XR PORTABLE CHEST AP from 02/21/2023 FINDINGS: MEDIASTINUM: Normal. HEART: Normal. PULMONARY VASCULATURE: Normal. LUNGS: Clear. PLEURAL SPACE: No pleural effusion or pneumothorax. BONE:Within normal limits for the patient's age. OTHER FINDINGS:Normal. IMPRESSION: No acute pulmonary findings. DATA REPOSITORY: RADIATION DOSE DELIVERED:
[2024-04-06 11:07] LABS: ALT 27 U/L (16-63); AST 15 U/L (15-37); Alkaline Phosphatase 84 U/L (46-116); Anion Gap 7.3 mmol/L (3-11); BUN 17 mg/dL (7-18); Bilirubin, Total 0.59 mg/dL (0.2-1.0); CO2 27.7 mmol/L (21.0-32.0); CREATININE 1.2 mg/dL (0.70-1.30); Calcium 9.6 mg/dL (8.5-10.1); Chloride 106 mmol/L (98-107); Estimated GFR 69.23 (mL/min/1.73m2); Glucose 98 mg/dL (74-106); Lipase 48 U/L (<78); Magnesium 1.8 mg/dL (1.8-2.4); NT-proBNP 28 pg/mL (<300); Potassium 4.1 mmol/L (3.5-5.1); Sodium 141 mmol/L (136-145); Total Protein 7.6 g/dL (6.4-8.2); Troponin I 5 ng/L (<or=76)
[2024-04-06] MEDS: ACETAMINOPHEN 1,000 MG/100 ML BAG 400 MG IVPB (11:27)
[2024-04-06 13:08] LABS: Troponin I 5 ng/L (<or=76)
[2024-04-06] MEDS: Lidocaine 5% Patch 1 PATCH TP (14:02)
[2024-04-06 14:11] LABS: TSH (W/Ref FT4) 0.55 uIU/mL (0.36-3.74)
--- NOTE | 2024-04-06 15:37 | W.ED.GENAD ---
Discharge Plan Disposition Patient Disposition: Home Discharge Details Clinical Impression: Chest pain, Palpitations, Chest wall injury Primary Care Provider: Angus Barnett ED Provider: Lisa Rogers Home Meds and New Rx's Prescriptions: Continued (DME) lancets [FreeStyle Lancets] 28 gauge misc See Rx Instructions .ROUTE .MEDSUPPLY Qty: 25 Rx Instructions: As directed albuterol sulfate [Ventolin HFA] 90 mcg/actuation HFA aerosol inhaler 1 - 2 puff Inhalation Q4H PRN Qty: 1 6RF Patient Comments: 09/03/21 pt reports he hasnt used in @ 5 months Rx Instructions: PHARMACY: PLEASE DISPENSE ALBUTEROL BRAND COVERED BY INSURANCE gemfibrozil [Lopid] 600 mg tablet 600 mg PO DAILY Qty: 90 3RF atorvastatin 20 mg tablet 20 mg PO DAILY Qty: 90 3RF pantoprazole [Protonix] 40 mg tablet,delayed release (DR/EC) 40 mg PO DAILY Qty: 30 12RF sucralfate [Carafate] 1 gram tablet 1 g PO HS Qty: 30 12RF lisinopril 10 mg tablet 5 mg PO DAILY nitroglycerin [Nitrostat] 0.4 mg tablet, sublingual 0.4 mg Sublingual Q5 MIN PRN X3 Qty: 100 1RF Patient Comments: 09/03/21 pt reports he hasnt taken in @ 3 months Rx Instructions: 1 tab sublingual q5m PRN x3 chest pain cholecalciferol (vitamin D3) [Vitamin D3] 50 mcg (2,000 unit) tablet 2,000 unit PO DAILY Qty: 90 3RF aspirin 81 mg tablet,delayed release (DR/EC) 81 mg PO DAILY 90 Days Qty: 90 3RF (DME) FreeStyle Lite Strips Strip See Rx Instructions .ROUTE .MEDSUPPLY Qty: 100 3RF Patient Comments: pt. states he checks his sugars when he thinks his sugars high Rx Instructions: Test daily to keep HbA1c less than 6.5%; Dx: E11.9 acetaminophen 500 mg tablet 500 mg PO Q6H PRN (Reason: pain) Qty: 60 2RF ibuprofen 600 mg tablet 600 mg PO TID PRN (Reason: pain) Qty: 60 0RF insulin glargine [Basaglar KwikPen U-100 Insulin] 100 unit/mL (3 mL) insulin pen 15 unit subcut QAM Qty: 30 0RF metformin 500 mg tablet extended release 24 hr 1,000 mg PO TID Qty: 180 3RF Rx Instructions: for diabetes, two tabs in the morning cyclobenzaprine 10 mg tablet 10 mg PO BID PRN (Reason: muscle spasm) Qty: 10 0RF Rx Instructions: Please take 1 tablet twice a day as needed for muscle spasm. Discharge Instructions Instructions: Chest Pain (DC), Blunt Chest Trauma (DC), Palpitations ED Additional Instructions: Take Tylenol every 4 hours for pain control do not exceed 3 g of Tylenol daily We will apply a lidocaine patch, 12 hours on, 12 hours off, these are [id number] if they work well for you and macerating for muscle relaxant which you can try to take at night to help you sleep please follow-up with your doctor for a Holter monitor in the outpatient setting and return earlier should you have new or worsening complaints including chest pain or shortness of breath I suspect that your chest pain is musculoskeletal in nature Please use caution when going from sitting to standing I am unsure as to the cause of your passing out episode I do not see any diagnostic reason for item today's assessment so Holter monitor or rhythm monitor in the outpatient setting is important Referrals: Angus Barnett [Primary Care Provider] - 1 day Discharge Data Discharge Date/Time-TO BE ENTERED AT DEPARTURE: 04/06/24 14:22 HPI General Date/Time Provider Initiated Documentation: 04/06/24 10:07. HPI Narrative: The patient is a 58-year-old male who presents with a report of one episode of near syncope on Thursday, followed by a syncopal event on Thursday. He reports a sudden loss of consciousness after standing up quickly, finding himself on the floor upon regaining awareness. He does not have any prior history of syncope or recurrent episodes. He also does not have any shortness of breath, nausea, or diaphoresis associated with this event. He does not have any fever, chills, known sick contacts, recent surgeries, long drives, history of coagulopathy, or calf pain or swelling. He engaged in snow maintenance activities, including snowblowing and shoveling, on Thursday without any adverse effects. He experienced chest pain shortly after the syncopal event, which has been constant since Thursday and exacerbated by movement and coughing. Related Data Home Medications ?Medication ?Instructions ?Recorded ?Confirmed lancets 28 gauge (FreeStyle #25 ea 08/29/19 04/06/24 Lancets) nitroglycerin 0.4 mg sublingual 0.4 mg sublingual Q5 MIN PRN X3 09/21/19 04/06/24 tablet (Nitrostat) chest pain #100 tabs albuterol sulfate 90 mcg/actuation 1 - 2 puff inhalation Q4H PRN ##1 10/20/19 04/06/24 aerosol inhaler (Ventolin HFA) cholecalciferol (vitamin D3) 50 2,000 unit PO DAILY #90 tab-caps 06/28/20 04/06/24 mcg (2,000 unit) tablet (Vitamin D3) atorvastatin 20 mg tablet 20 mg PO DAILY #90 tabs 11/09/20 04/06/24 gemfibrozil 600 mg tablet (Lopid) 600 mg PO DAILY #90 tabs 11/09/20 04/06/24 aspirin 81 mg tablet,delayed 81 mg PO DAILY 90 days ##90 01/31/21 04/06/24 release blood sugar diagnostic (FreeStyle #100 ea 03/14/21 04/06/24 Lite Strips) pantoprazole 40 mg tablet,delayed 40 mg PO DAILY #30 tabs 05/23/21 04/06/24 release (Protonix) sucralfate 1 gram tablet (Carafate) 1 g PO HS #30 tabs 05/23/21 04/06/24 lisinopril 10 mg tablet 5 mg PO DAILY 10/11/21 04/06/24 acetaminophen 500 mg tablet 500 mg PO Q6H PRN pain #60 tabs 12/04/21 04/06/24 ibuprofen 600 mg tablet 600 mg PO TID PRN pain #60 tabs 12/04/21 04/06/24 insulin glargine 100 unit/mL (3 15 unit (0.15 mL) subcut QAM #30 mL 10/02/23 04/06/24 mL) subcutaneous pen (Basaglar KwikPen U-100 Insulin) metformin 500 mg tablet,extended 1,000 mg (2 x 500 mg) PO TID #180 10/02/23 04/06/24 release 24 hr tab-caps cyclobenzaprine 10 mg tablet 10 mg PO BID PRN muscle spasm #10 12/30/23 04/06/24 tabs Previous Rx's ?Medication ?Instructions ?Recorded nitroglycerin 0.4 mg sublingual 0.4 mg sublingual Q5 MIN PRN X3 09/21/19 tablet (Nitrostat) chest pain #100 tabs albuterol sulfate 90 mcg/actuation 1 - 2 puff inhalation Q4H PRN ##1 10/20/19 aerosol inhaler (Ventolin HFA) cholecalciferol (vitamin D3) 50 2,000 unit PO DAILY #90 tab-caps 06/28/20 mcg (2,000 unit) tablet (Vitamin D3) atorvastatin 20 mg tablet 20 mg PO DAILY #90 tabs 11/09/20 gemfibrozil 600 mg tablet (Lopid) 600 mg PO DAILY #90 tabs 11/09/20 aspirin 81 mg tablet,delayed 81 mg PO DAILY 90 days ##90 01/31/21 release blood sugar diagnostic (FreeStyle #100 ea 03/14/21 Lite Strips) pantoprazole 40 mg tablet,delayed 40 mg PO DAILY #30 tabs 05/23/21 release (Protonix) sucralfate 1 gram tablet (Carafate) 1 g PO HS #30 tabs 05/23/21 acetaminophen 500 mg tablet 500 mg PO Q6H PRN pain #60 tabs 12/04/21 ibuprofen 600 mg tablet 600 mg PO TID PRN pain #60 tabs 12/04/21 insulin glargine 100 unit/mL (3 15 unit (0.15 mL) subcut QAM #30 mL 10/02/23 mL) subcutaneous pen (Basaglar KwikPen U-100 Insulin) metformin 500 mg tablet,extended 1,000 mg (2 x 500 mg) PO TID #180 10/02/23 release 24 hr tab-caps cyclobenzaprine 10 mg tablet 10 mg PO BID PRN muscle spasm #10 12/30/23 tabs Allergies Allergy/AdvReac Type Severity Reaction Status Date / Time celecoxib Allergy Intermediate Rash, Verified 04/06/24 10:16 urticaria naproxen Allergy Intermediate Itchy Welts Verified 04/06/24 10:16 General Stated Complaint: Chest Pain JAMES: 2 Exam Narrative Exam Narrative: Patient is alert and oriented no acute distress, cardiac rate rhythm regular lungs clear to auscultation reproducible upper chest wall tenderness no abdominal tenderness appreciated no rashes or lesions, no calf swelling or tenderness distal pulses intact Course Vital Signs Vital signs: Vital Signs Temperature 36.9 C 04/06/24 10:11 Pulse 55 L 04/06/24 10:11 Respiratory Rate 20 04/06/24 10:11 Blood Pressure 149/81 H 04/06/24 10:11 Pulse Oximetry 99 04/06/24 10:11 Temperature 36.9 C 04/06/24 10:11 Temperature Source Oral 04/06/24 10:11 Pulse 54 L 04/06/24 13:20 Pulse 56 L 04/06/24 13:20 Respiratory Rate 16 04/06/24 13:20 Respiratory Effort Normal 04/06/24 12:47 Respiratory Depth Normal 04/06/24 12:47 Respiratory Pattern Normal 04/06/24 12:47 Blood Pressure 137/62 04/06/24 13:16 Blood Pressure Mean 87 04/06/24 13:16 Blood Pressure Position Sitting 04/06/24 10:11 Pulse Oximetry 93 04/06/24 13:20 Oxygen Delivery Method Room Air 04/06/24 10:11 Oxygen Flow Rate 0 04/06/24 10:11 Pain Level 8 04/06/24 10:11 Lab/Test Results Lab/Test Results: Laboratory Tests Range/Units 04/06/24 04/06/24 04/06/24 10:10 10:32 11:10 WBC (4.4-10.8) 10^3/uL 8.33 RBC (4.36-5.78) 10^6/uL 5.48 Hgb (13.5-17.5) g/dL 16.2 Hct (40.0-50.0) % 48.6 MCV (80-95) fL 89 MCH (27.0-33.0) pg 29.6 MCHC (32.0-36.0) % 33.3 RDW (11.8-14.1) % 13.1 Plt Count (130-400) 10^3/uL 191 MPV (8.0-11.0) fL 10.6 Immature Gran % % 0.8 Neutrophils % % 56.7 Lymphocytes % % 28.5 Monocytes % % 10.6 Eosinophils % % 2.4 Basophils % % 1.0 Nucleated RBC % (0.0-0.3) % 0.0 Absolute Neutrophils (1.2-6.7) 10^3/uL 4.73 Absolute Lymphocytes (1.2-3.4) 10^3/uL 2.37 Absolute Monocytes (0.1-0.8) 10^3/uL 0.88 H Absolute Eosinophils (0.0-0.7) 10^3/uL 0.20 Absolute Basophils (0.0-0.2) 10^3/uL 0.08 Sodium (136-145) mmol/L 141 Potassium (3.5-5.1) mmol/L 4.1 Chloride (98-107) mmol/L 106 Carbon Dioxide (21.0-32.0) mmol/L 27.7 Anion Gap (3-11) mmol/L 7.3 BUN (7-18) mg/dL 17 Creatinine (0.70-1.30) mg/dL 1.2 Est GFR (CKD-EPI 2020) (mL/min/1.73m2) 69.23 Glucose (74-106) mg/dL 98 Calcium (8.5-10.1) mg/dL 9.6 Magnesium (1.8-2.4) mg/dL 1.8 Total Bilirubin (0.2-1.0) mg/dL 0.59 AST (15-37) U/L 15 ALT (16-63) U/L 27 Alkaline Phosphatase (46-116) U/L 84 Troponin I (<or=76) ng/L 5 Cancelled NT-Pro-B Natriuret Pep (<300) pg/mL 28 Total Protein (6.4-8.2) g/dL 7.6 Albumin (3.4-5.0) g/dL 4.0 Lipase (<78) U/L 48 TSH (0.36-3.74) uIU/mL COVID-19 Source Cancelled SARS-CoV-2 (PCR) Cancelled Influenza Type A (PCR) Cancelled Influenza Type B (PCR) Cancelled RSV (PCR) Cancelled Range/Units 04/06/24 04/06/24 11:30 13:10 WBC (4.4-10.8) 10^3/uL RBC (4.36-5.78) 10^6/uL Hgb (13.5-17.5) g/dL Hct (40.0-50.0) % MCV (80-95) fL MCH (27.0-33.0) pg MCHC (32.0-36.0) % RDW (11.8-14.1) % Plt Count (130-400) 10^3/uL MPV (8.0-11.0) fL Immature Gran % % Neutrophils % % Lymphocytes % % Monocytes % % Eosinophils % % Basophils % % Nucleated RBC % (0.0-0.3) % Absolute Neutrophils (1.2-6.7) 10^3/uL Absolute Lymphocytes (1.2-3.4) 10^3/uL Absolute Monocytes (0.1-0.8) 10^3/uL Absolute Eosinophils (0.0-0.7) 10^3/uL Absolute Basophils (0.0-0.2) 10^3/uL Sodium (136-145) mmol/L Potassium (3.5-5.1) mmol/L Chloride (98-107) mmol/L Carbon Dioxide (21.0-32.0) mmol/L Anion Gap (3-11) mmol/L BUN (7-18) mg/dL Creatinine (0.70-1.30) mg/dL Est GFR (CKD-EPI 2020) (mL/min/1.73m2) Glucose (74-106) mg/dL Calcium (8.5-10.1) mg/dL Magnesium (1.8-2.4) mg/dL Total Bilirubin (0.2-1.0) mg/dL AST (15-37) U/L ALT (16-63) U/L Alkaline Phosphatase (46-116) U/L Troponin I (<or=76) ng/L 5 Cancelled NT-Pro-B Natriuret Pep (<300) pg/mL Total Protein (6.4-8.2) g/dL Albumin (3.4-5.0) g/dL Lipase (<78) U/L TSH (0.36-3.74) uIU/mL 0.55 COVID-19 Source SARS-CoV-2 (PCR) Influenza Type A (PCR) Influenza Type B (PCR) RSV (PCR) Medical Decision Making Laboratory Studies Two troponins were conducted. Imaging Chest x-ray shows no evidence of acute abnormality. Initial Assessment: 58-year-old male with one episode of near syncope followed by a syncopal event, now presenting with left-sided chest pain. Differential Diagnosis: - Cardiac etiology: Less likely due to lack of dysrhythmia and normal troponins. Plan: Outpatient Holter monitor. - Trauma from syncope: Suspected due to reproducible chest wall pain. Plan: Discharge with advice to return if symptoms worsen. ED Course: - Chest x-ray ordered and reviewed by me: No acute abnormality. - Two troponins conducted: Normal. - Diagnostic labs ordered. - 3.5-hour observation: No dysrhythmia noted. Final Assessment: Patient's symptoms do not strongly indicate a cardiac origin, leading to a suspicion of trauma from the syncopal event. He has not exhibited any dysrhythmia during his observation period. An outpatient Holter monitor will be arranged for further evaluation. He is deemed stable for discharge at this time, with advice to return if he experiences any new or worsening symptoms. Clinical Impression: - Syncope - Left-sided chest pain Disposition: - Discharge - Follow-Up: Outpatient Holter monitor MDM Components Evaluation: - Number of Differential Diagnoses or Management Options: Cardiac etiology, Trauma from syncope - Amount and Complexity of Data Reviewed: Chest x-ray, Two troponins, Diagnostic labs - Risk of Complication and Morbidity or Mortality: Low risk due to normal diagnostic tests and stable observation period. Quality:SDOH Health Related Social Needs: No Data to Display PFSH All Active Problems (Updated 04/06/24 @ 13:34 by JAMES Gray) Chest wall injury (Acute) Palpitations (Acute) Chest pain (Acute) No-show for appointment (Acute) Internal derangement of right knee (Acute) Contusion of right knee (Acute 09/04/23) H/O urinary frequency (Acute) Abnormal stress test (Chronic) Tobacco use disorder (Chronic) Quit 2019, restarted late in the year Vitamin D deficiency (Chronic) Chronic kidney disease (CKD), stage III (moderate) (Chronic 05/26/16) ? due to DM or to hypertension Diabetes mellitus type 2 in obese (Chronic 02/19/16) presented with polyuria, elevated FS on friend's glucometer, A1c 14 at [facility] ER Essential hypertension (Chronic) goal <140/85 Gastroesophageal reflux disease without esophagitis (Chronic 12/05/11) ER 11/2014 rx PPI Microscopic hematuria (Chronic 02/27/14) CT neg; JUSTINO neg; persists 01/2015 Mixed hyperlipidemia (Chronic 02/16/01) low HDL 27; SL HIGH TG; CV RISK (12/2016): 27%: rec Statin Obesity, unspecified (Chronic 12/05/11) 1993 165#; 180 gives BMI <30 05/06/21 [facility], BMI 35.10 Obstructive sleep apnea (Chronic 03/10/16) [id number], severe in REM sleep Sleep study PSG on 03/10/16: AHI 20.1; SPO2 shailesh 82%; CPAP begun 06/08/16. with improvement in fatigue 06/29/16 restudied higher pressures needed assoc. with treatment of central sleep apnea Complex regional pain syndrome (Chronic 06/27/13) Type 2 diabetes mellitus (Chronic 12/05/11) Chest pain (Acute) Hypertrophy of tonsils (Acute) 02/21/2019 ENT, Dr Lange Dysfunction of left eustachian tube (Acute) 02/21/[address] Lange Edentulous (Acute) Chronic maxillary sinusitis (Acute) History of sinusitis (Acute) Abdominal obesity (Acute) Chest pain (Acute) Bilateral hydrocele (Acute) Abdominal pain (Acute) Lightheadedness (Acute) Hematuria (Acute) Family history of cerebral aneurysm (Chronic) Mother in Mar 2020 Right arm numbness (Acute) Functional bowel disorder (Acute) Diverticulosis (Chronic) Colonoscopy June 2019 Other constipation (Acute ~2020) [facility] Polyp of colon (Acute ~2020) [facility] Right lower quadrant pain (Acute ~2020) [facility] Sinusitis (Acute) High triglycerides (Acute) Dizziness (Acute) Dyspnea (Acute) Gout (Chronic) R 1st PIP joint Umbilical hernia (Acute) History of alcohol abuse (Acute) Burning sensation (Acute) Eructation (Acute) Medical History Urinary incontinence without sensory awareness Sessile colonic polyp (09/26/14) @ transverse colon, sigmoid Paresthesias (10/27/16) nocturnal, bilateral, R>L, Median nerve, probable CTS Surgical History Cubital tunnel syndrome of both upper extremities S/P L cubital tunnel release: 09/03/2021 S/P R cubital tunnel release: 12/04/2021 Carpal tunnel syndrome of right wrist S/P ECTR: 12/04/2021 Carpal tunnel syndrome of left wrist S/P ECTR: 09/03/2021 Cystoscopy w/ joe retrograde pyelogram (03/01/15) Colonoscopy - IV Sedation (09/26/14) [facility] Perri, serrated polyp, fragments of sessile serrated adenoma Extraction of cataract (12/17/16) Left Radha Manzo; R 11/19/16 Cardiac Cath (03/24/17) [id number] stents placed Family History Father , lung cancer at age 67. Essential hypertension Neoplasm Mother Diabetes Essential hypertension Sister No problems noted. Sister No problems noted. Social History Smoking/Tobacco Use Status: Current every day Tobacco Type: cigarettes Tobacco: How many years used: 41 Quit status: considering quitting Smoking risk assessment performed?: Yes Alcohol Intake: former Drug use: Never Substance use type: does not use Household members: significant other Housing: apartment Number of Children: 3 Communication Needs: None Do you need help understanding health information?: Often current occupation: Disabled Current gender identity: male What is your relationship status?: living with partner How often do you talk on the phone with friends or family?: three or more times per week How often do you get together with friends or relatives?: three or more times per week Panel score (0-1 are the most socially isolated patients): 2 What type of physical activity do you participate in: none Seatbelt use: always Drive intox or ride w/intox hi lo driver: No Working smoke detector in home: No Fire extinguisher in home: No Carbon monox detector in home: No Do you feel safe at home: Yes Do you feel safe in your relationship?: Yes
== END 2024-04-06 14:22 | disposition home or self-care (01) ==
PROVIDERS: Emergency Provider Physician Assistant; PCP Student in an Organized Health Care Education/Training Program
DX: R07.9 Chest pain, unspecified (principal); R55 Syncope and collapse; R00.2 Palpitations; E11.22 Type 2 diabetes mellitus with diabetic chronic kidney disease; I12.9 Hypertensive chronic kidney disease with stage 1 through stage 4 chronic kidney disease, or unspecified chronic kidney disease; N18.30 Chronic kidney disease, stage 3 unspecified; Z79.82 Long term (current) use of aspirin; Z79.4 Long term (current) use of insulin; Z79.84 Long term (current) use of oral hypoglycemic drugs
CPT/HCPCS: 36415; 80053; 83690; 87637; 93005; 96365; 99285; 71046; 83735; 83880; 84443; 84484; 85025; 93010; 99284; J0131

== ENCOUNTER 2024-08-12 23:50 | Outpatient (REF) | payer MEDICARE, SELFPAY ==
[2024-08-12 21:22] LABS: BUN 20 mg/dL (7-18); CREATININE 1.1 mg/dL (0.70-1.30); Calcium 9.1 mg/dL (8.5-10.1); Chloride 105 mmol/L (98-107); Estimated GFR 76.85 (mL/min/1.73m2); Glucose 96 mg/dL (74-106); Potassium 4.2 mmol/L (3.5-5.1); Sodium 140 mmol/L (136-145)
[2024-08-12 21:42] LABS: COMMENT (LAB VIEW ONLY) 50.83 mg/dL; Microalb ug/mg Crea 7.7 ug/mg Cr
== END 2024-08-12 23:51 | disposition home or self-care (01) ==
LOC: NCHCN 23:50
PROVIDERS: PCP Student in an Organized Health Care Education/Training Program; Visit Provider Student in an Organized Health Care Education/Training Program
DX: E11.9 Type 2 diabetes mellitus without complications (principal); R25.2 Cramp and spasm
CPT/HCPCS: 80048; 82043; 82570; 83735

== ENCOUNTER → 2024-11-14 13:31 | Outpatient (BNVA) | payer MEDICARE, MEDICAID, SELFPAY | PROVIDERS: PCP Student in an Organized Health Care Education/Training Program; Visit Provider Urology | DX: R31.29 Other microscopic hematuria (principal); N40.1 Benign prostatic hyperplasia with lower urinary tract symptoms; R39.12 Poor urinary stream; E11.9 Type 2 diabetes mellitus without complications; R39.9 Unspecified symptoms and signs involving the genitourinary system | CPT/HCPCS: 99213; 51798 ==

== ENCOUNTER 2024-11-24 09:17 | Outpatient (CLI) | payer MEDICARE, SELFPAY ==
[2024-11-24 19:30] LABS: PSA, Diagnostic 0.7 ng/mL (<=4.5)
== END 2024-11-24 09:18 | disposition home or self-care (01) ==
LOC: LBO 09:19
PROVIDERS: PCP Student in an Organized Health Care Education/Training Program; Visit Provider Urology
DX: N40.1 Benign prostatic hyperplasia with lower urinary tract symptoms (principal)
CPT/HCPCS: 36415; 84153

== ENCOUNTER 2025-01-15 19:51 | Emergency (ER) | payer MEDICARE, MEDICAID, SELFPAY ==
[2025-01-15] VITALS (23 sets, daily range): BP systolic 146–184; BP diastolic 74–86; PULSE 55–84; RESP 10–25; TEMP 36.2; O2SAT 95–100
--- NOTE | 2025-01-15 19:45 | RT.EKG_ITS ---
APPROVED REPORT Exam: Resting ECG Reason for Exam: Patient Location: E HR:56 bpm ECG Measurements Heart Rate 56 AXIS WV 149 P 16 QRSd 98 QRS 28 QT 414 T 34 QTc 400 Conclusion Sinus bradycardia, rate 56 No interval abnormalities No STEMI No significant changes from priors
--- NOTE | 2025-01-15 20:00 | DI.CT_ITS ---
Exam(s) CT THORAX ABD/PEL CTA EXAM: CT THORAX ABD/PEL CTA CLINICAL HISTORY: eval dissection, CP radiating to abd. TECHNIQUE: Imaging Protocol: Axial computed tomography images with coronal and sagittal reformatted images were created and reviewed CONTRAST MATERIAL: Intravenous: Omnipaque 350 Contrast volume:100 ml Oral: None COMPARISON: CT CT CHEST PE CTA from 03/02/2024 FINDINGS: CHEST: AORTA: Ascending thoracic aorta exhibits normal diameter. Aortic arch and descending thoracic aorta exhibits normal diameter. No evidence of dissection or pericardial effusion. Abdominal aorta exhibits normal diameter. Mild atherosclerotic change. No aneurysms nor dissection. Common and external iliac arteries also patent, as are the common femoral arteries and visualized proximal SFA arteries also patent. There is also no evidence of aneurysm nor dissection in the internal iliac arteries. No significant stenosis nor dissection in the celiac, SMA, and renal arteries. The inferior mesenteric artery is also patent. LUNGS: There is a solitary noncalcified nodule in the medial aspect of the posterior basal segment of the right lower lobe which measures 9 x 9 mm.. On the 1 millimeter slice images there is a suggestion of vessels coming in and out of this nodule. Therefore this nodule is possibly a pulmonary arterial venous malformation. No other focal lung nodules nor infiltrates nor pleural effusions evident. No significant findings in the trachea and mainstem bronchi. MEDIASTINUM: There is no hilar nor mediastinal adenopathy. CARDIAC: Heart size upper normal. No pericardial effusion. ABDOMEN: Aorta: See above There is no ascites. LIVER: There are no focal hepatic lesions nor dilatation of intrahepatic ducts. GALLBLADDER/BILIARY: Mildly distended. No obvious calculi nor gallbladder wall edema. No pericholecystic fluid CBD is not dilated. PANCREAS: No evidence of pancreatic mass nor dilatation of the pancreatic duct. SPLEEN: Spleen is not enlarged. There are no intrasplenic lesions. Splenic and portal veins are patent. ADRENALS: There are no significant adrenal masses. KIDNEYS: Benign cortical cysts are noted in both kidneys. The largest of these is in the posterior aspect of the right kidney, this exophytic benign cysts measuring 3 by 3 cm. These benign cysts do not require further imaging workup. No calculi nor hydronephrosis. No solid renal masses. ABDOMINAL AORTA: The abdominal aorta is not enlarged. LYMPH NODES: There is no retroperitoneal nor para-aortic adenopathy. No obvious mesenteric masses. ABDOMINAL WALL: No evidence of significant anterior abdominal wall hernia. GI: There is no evidence of bowel obstruction, free air, nor abscess. PELVIS: LYMPH NODES: There is no intrapelvic nor inguinal adenopathy. GI: No evidence of appendicitis.There are diverticuli in the left side of the colon distal to the splenic flexure as well as in the upper sigmoid.. There is no evidence of obvious acute diverticulitis in the descending-left colon. However,in the sigmoid there is a 7-8 cm length of sigmoid which exhibits some mural thickening but no obvious surrounding inflammatory change. URINARY BLADDER: Mildly distended. No calculi nor masses evident REPRODUCTIVE: Prostate size upper normal. Seminal vesicles unremarkable. OSSEOUS: No significant osseous lesions. No fractures. IMPRESSION: 1. No evidence of thoracic nor abdominal aortic aneurysm and no evidence of dissection or pericardial effusion. Also no significant acute findings in the iliac arteries. 2. There is a 9-10 mm right lower lobe nodule as described above. There appear to be vessels running in and out of this nodule. Therefore in addition to a solid lung nodule there is also a possibility of a small pulmonary AVM. This requires appropriate follow-up. 3. There is diverticulosis of the descending and sigmoid colon. There is some mural thickening 3 collapse part of the mid sigmoid but without surrounding inflammatory change. Clinical correlation recommended. 4. There is mild distention of the gallbladder. No radiopaque calculi seen. No prominent wall edema. If clinically indicated can be further studied with ultrasound. Preliminary virtual Radiology report was reviewed RADIATION DOSE DELIVERED: 953.77mGy.cm Total DLP DATA REPOSITORY: All CT scans at this facility are submitted to the National Radiology Data Registry (NRDR) Dose Index Registry (DIR) with the [employer] (A[employer]). RADIATION OPTIMIZATION: All CT scans at this facility use at least one of these dose optimization techniques: automated exposure control; mA and/or kV adjustment per patient size (includes targeted exams where dose is matched to clinical indication); or iterative reconstruction.
[2025-01-15] MEDS: nitroGLYcerin 0.4 MG TAB SL (20:15)
--- NOTE | 2025-01-15 20:16 | ED.GENADUL_ITS ---
Discharge Plan Disposition Patient Disposition: Home Condition: Stable Discharge Details Clinical Impression: Gastroesophageal reflux disease without esophagitis, Chest pain, Essential hypertension, Pulmonary nodule/lesion, solitary Primary Care Provider: Angus Barnett ED Provider: Daria Alexander Home Meds and New Rx's Prescriptions: New famotidine [Pepcid] 20 mg tablet 20 mg PO QHS Qty: 30 0RF No Action (DME) lancets [FreeStyle Lancets] 28 gauge misc See Rx Instructions .ROUTE .MEDSUPPLY Qty: 25 Rx Instructions: As directed albuterol sulfate [Ventolin HFA] 90 mcg/actuation HFA aerosol inhaler 1 - 2 puff Inhalation Q4H PRN Qty: 1 6RF Patient Comments: pt stat Rx Instructions: PHARMACY: PLEASE DISPENSE ALBUTEROL BRAND COVERED BY INSURANCE gemfibrozil [Lopid] 600 mg tablet 600 mg PO DAILY Qty: 90 3RF atorvastatin 20 mg tablet 20 mg PO DAILY Qty: 90 3RF pantoprazole [Protonix] 40 mg tablet,delayed release (DR/EC) 40 mg PO DAILY Qty: 30 12RF sucralfate [Carafate] 1 gram tablet 1 g PO HS Qty: 30 12RF lisinopril 10 mg tablet 5 mg PO DAILY mirabegron [Myrbetriq] 25 mg tablet extended release 24 hr 25 mg PO DAILY nitroglycerin [Nitrostat] 0.4 mg tablet, sublingual 0.4 mg Sublingual Q5 MIN PRN X3 Qty: 100 1RF Patient Comments: 09/03/21 pt reports he hasnt taken in @ 3 months Rx Instructions: 1 tab sublingual q5m PRN x3 chest pain cholecalciferol (vitamin D3) [Vitamin D3] 50 mcg (2,000 unit) tablet 2,000 unit PO DAILY Qty: 90 3RF aspirin 81 mg tablet,delayed release (DR/EC) 81 mg PO DAILY 90 Days Qty: 90 3RF (DME) FreeStyle Lite Strips Strip See Rx Instructions .ROUTE .MEDSUPPLY Qty: 100 3RF Patient Comments: pt. states he checks his sugars when he thinks his sugars high Rx Instructions: Test daily to keep HbA1c less than 6.5%; Dx: E11.9 acetaminophen 500 mg tablet 500 mg PO Q6H PRN (Reason: pain) Qty: 60 2RF ibuprofen 600 mg tablet 600 mg PO TID PRN (Reason: pain) Qty: 60 0RF metformin 500 mg tablet extended release 24 hr 1,000 mg PO TID Qty: 180 3RF Rx Instructions: for diabetes, two tabs in the morning insulin glargine [Basaglar KwikPen U-100 Insulin] 100 unit/mL (3 mL) insulin pen 15 unit subcut QAM PRN Discharge Instructions Instructions: Acid reflux and GERD in adults, Chest Pain, Adult ED Additional Instructions: You were seen in the emergency department today for evaluation of chest and abdominal pain. In our department you had a full physical examination performed, had laboratory studies that were quite reassuring, including negative cardiac enzymes and a normal EKG. You had no evidence of damage to your liver, gallbladder, or or pancreas on your labs, your kidney function is slightly elevated but within the range of your normal levels. You had a CT scan that did not show any significant abnormalities in your heart or major blood vessels. You do have an 8 mm nodule in your right lung which needs to be followed up on with your primary care provider. You did not have any significant findings in your abdomen to explain your symptoms today. You had an almost complete improvement in your symptoms after a GI cocktail, combination of medicines targeted at the esophagus and lining of the stomach. It is possible that your GERD was one of the reasons for your pain today, I recommend that you continue to take your pantoprazole every day, I have sent a p rescription for Pepcid, a medication to reduce acid which you can take at nighttime as needed for ongoing pain. Additionally, I recommend that you purchase a bottle of Mylanta [id number], as this medication can be used as needed for management of pain associated with acid reflux. Please follow-up with your primary care provider in the next few days to discuss this visit and any symptoms that change, worsen, or persist. Thank you for allowing us to be part of your care. Stand Alone Forms: Portal Information HPI General Mode of arrival: ambulatory . Date/Time Provider Initiated Documentation: 01/15/25 20:00 . Limitations to Documentation: no limitations . Information obtained by: patient and old records reviewed . HPI Narrative: This is a 59-year-old male patient with a past medical history significant for CKD, diabetes, hypertension, GERD, ELIU, CAD with a history of IN, presenting for evaluation of sudden onset chest pain. The patient reports that he was in his normal state of health until about 45 minutes prior to arrival. He had been sitting in his chair, and felt like he needed to go lay down in bed. When he laid down he had a sudden and severe stabbing pain in his epigastric region and lower chest. He states that this pain radiates down into his belly, he feels better from a work of breathing standpoint when he sits straight up, no radi ation of the pain into his arm, jaw, or back. The pain is not reproducible with a deep breath. He states that he has not had nausea or vomiting, tried nitroglycerin at home without effect, received aspirin and nitroglycerin from EMS with some improvement in his symptoms down to a 6 out of 10. The patient reports that he has a baseline smoker's cough without change in sputum production. No recent fevers or illnesses, no recent reported changes to his medications. Related Data Home Medications ?Medication ?Instructions ?Recorded ?Confirmed lancets 28 gauge (FreeStyle #25 ea 08/29/19 01/15/25 Lancets) nitroglycerin 0.4 mg sublingual 0.4 mg sublingual Q5 M IN PRN X3 09/21/19 01/15/25 tablet (Nitrostat) chest pain #100 tabs albuterol sulfate 90 mcg/actuation 1 - 2 puff inhalati on Q4H PRN ##1 10/20/19 01/15/25 aerosol inhaler (Ventolin HFA) Held on 01/15/25. Instructions: Pt Stopped/Never Started cholecalciferol (vitamin D3) 50 2,000 unit PO DAILY #9 0 tab-caps 06/28/20 01/15/25 mcg (2,000 unit) tablet (Vitamin D3) atorvastatin 20 mg tablet 20 mg PO DAILY #90 tabs 10/1801/15/25 gemfibrozil 600 mg tablet (Lopid) 600 mg PO DAILY #90 tabs 11/09/20 01/15/25 aspirin 81 mg tablet,delayed 81 mg PO DAILY 90 days ## 90 01/31/21 01/15/25 release blood sugar diagnostic ([employer]Style #100 ea 03/14/21 Lite Strips) pantoprazole 40 mg tablet,delayed 40 mg PO DAILY #30 t abs 05/23/21 01/15/25 release (Protonix) sucralfate 1 gram tablet (Carafate) 1 g PO HS #30 tabs 05/23/21 01/15/25 lisinopril 10 mg tablet 5 mg PO DAILY 10/11/2101/15 acetaminophen 500 mg tablet 500 mg PO Q6H PRN pain #60 tabs 12/04/21 01/15/25 ibuprofen 600 mg tablet 600 mg PO TID PRN pain #60 t abs 12/04/21 01/15/25 metformin 500 mg tablet,extended 1,000 mg (2 x 500 mg) PO TID #180 10/02/23 01/15/25 release 24 hr tab-caps mirabegron 25 mg tablet,extended 25 mg PO DAILY 01/15/25 release 24 hr (Myrbetriq) Held on 01/15/25. Instructions: Pt Stopped/Never Started famotidine 20 mg tablet (Pepcid) 20 mg PO QHS #30 tabs 01/15/25 insulin glargine 100 unit/mL (3 15 unit subcut QAM PRN 01/15/25 01/15/25 mL) subcutaneous pen (Basaglar KwikPen U-100 Insulin) Previous Rx's ?Medication ?Instructions ?Recorded nitroglycerin 0.4 mg sublingual 0.4 mg sublingual Q5 M IN PRN X3 09/21/19 tablet (Nitrostat) chest pain #100 tabs albuterol sulfate 90 mcg/actuation 1 - 2 puff inhalati on Q4H PRN ##1 10/20/19 aerosol inhaler (Ventolin HFA) Held on 01/15/25. Instructions: Pt Stopped/Never Started cholecalciferol (vitamin D3) 50 2,000 unit PO DAILY #9 0 tab-caps 06/28/20 mcg (2,000 unit) tablet (Vitamin D3) atorvastatin 20 mg tablet 20 mg PO DAILY #90 tabs 10/18 06/06 gemfibrozil 600 mg tablet (Lopid) 600 mg PO DAILY #90 tabs 11/09/20 aspirin 81 mg tablet,delayed 81 mg PO DAILY 90 days ## 90 01/31/21 release blood sugar diagnostic (FreeStyle #100 ea 03/14/21 Lite Strips) pantoprazole 40 mg tablet,delayed 40 mg PO DAILY #30 t abs 05/23/21 release (Protonix) sucralfate 1 gram tablet (Carafate) 1 g PO HS #30 tabs 05/23/21 acetaminophen 500 mg tablet 500 mg PO Q6H PRN pain #60 tabs 12/04/21 ibuprofen 600 mg tablet 600 mg PO TID PRN pain #60 t abs 12/04/21 metformin 500 mg tablet,extended 1,000 mg (2 x 500 mg) PO TID #180 10/02/23 release 24 hr tab-caps famotidine 20 mg tablet (Pepcid) 20 mg PO QHS #30 tabs 01/15/25 Allergies Allergy/AdvReac Type Severity Reaction Status Date / Time celecoxib Allergy Intermediate Rash, Verified 11/14/24 13:45 urticaria naproxen Allergy Intermediate Itchy Welts Verified 11/14/24 13:45 General Stated Complaint: Chest Pain JAMES: 3 Exam Narrative Exam Narrative: Gen: Awake and alert, in no apparent distress HEENT: Non-icteric sclera, PERRL Neck: Supple Lungs: No apparent respiratory distress, normal respiratory effort, mild tachypnea is appreciated. Lung sounds clear and equal bilaterally without wheezes, rhonchi, rales CV: Appears well perfused, heart with regular rate and rhythm, strong distal pulses symmetrical bilaterally Abdomen: Non-distended, soft, minimal tenderness to palpation in the epigastric and periumbilical regions without rigidity, rebound, or guarding. Small umbilical hernia easily to reduce MSK: Moves 4 extremities without apparent limitation in ROM. No peripheral edema Skin: Visualized skin without rashes, cyanosis. Neuro: Normal Gait, no obvious focal deficits or facial asymmetry. Speaks in full, clear sentences. Psych: Appropriate for situation. Course Vital Signs Vital signs: Vital Signs Temperature 36.2 C L 01/15/25 19:52 Pulse 62 01/15/25 19:52 Respiratory Rate 20 01/15/25 19:52 Blood Pressure 184/86 H 01/15/25 19:52 Pulse Oximetry 100 01/15/25 19:52 Temperature 36.2 C L 01/15/25 19:52 Temperature Source Oral 01/15/25 19:52 Pulse 62 01/15/25 19:52 Respiratory Rate 20 01/15/25 19:58 Respiratory Effort Short of Breath, Accessory Muscle Use, Incrsd Work of Br eathing 01/15/25 19:58 Respiratory Depth Shallow 01/15/25 19:58 Respiratory Pattern Tachypnea 01/15/25 19:58 Blood Pressure 184/86 H 01/15/25 19:52 Blood Pressure Position Supine 01/15/25 19:52 Pulse Oximetry 100 01/15/25 19:52 Oxygen Delivery Method Room Air 01/15/25 19:52 Oxygen Flow Rate 0 01/15/25 19:52 Pain Level 6 01/15/25 19:58 Medical Decision Making This is a 59-year-old male patient presenting for evaluation of chest pain. My differential includes but is not limited to ACS including STEMI, NSTEMI, unstable angina, certainly considered arrhythmia, pericarditis/myocarditis, aortic pathology. Considered pulmonary abnormalities including pneumonia, bronchitis, pleural effusion, pulmonary edema, reactive airway disease, pneumothorax. The patient is without tachycardia, hypoxia, or a pleuritic component to his pain to significantly increase my concern for pulmonary embolism. No GI symptoms or vomiting to suggest Boerhaave's, though I considered esophagitis, peptic ulcer disease, pancreatitis given the location of the pain and radiation into the abdomen. Considered musculoskeletal pathologies including costochondritis, chest wall pain. EKG obtained, which shows a sinus bradycardia without evidence of ischemia, interval abnormality, or ectopy. We will obtain a CT angio of the chest abdomen pelvis, as well as labs to include CBC, CMP, magnesium, troponin, BNP, lipase, and coags. I will provide the patient with a dose of nitroglycerin and assess effect on the pain. - I independently interpreted the laboratory studies, which show no significant leukocytosis, anemia, or thrombocytopenia. The chemistry panel is without evidence of electrolyte abnormality, new kidney dysfunction, or liver injury. Lactate and coags within normal limits, BNP is very low, lipase is normal, initial troponin is negative and the 1 hour delta recheck is not significantly elevated. However, given the short duration of symptoms and the ongoing chest discomfort I feel it prudent to continue with troponin trending. The CT scan was reviewed by myself and shows no evidence of abdominal or thor acic aortic aneurysm. He has no evidence of pulmonary abnormalities other than an 8 mm nodular density in the right lower lobe. He has diverticulosis and thickening of the collapsed sigmoid bowel wall, without evidence of inflammatory changes. As this area of the bowel is not underlying the area of pain I feel that this is unlikely to represent the cause of his symptoms. The patient does have some gallbladder distention without evidence of calcified gallstones or biliary dilation. The patient does not have right upper quadrant abdominal tenderness, has tolerated oral intake since his arrival here in the emergency department without nausea or vomiting nor worsening of his pain, and does not have any evidence of obstructive laboratory patterns with a normal bilirubin and alkaline phosphatase. I feel that acute gallbladder pathology as the cause of his symptoms is quite unlikely. Given that the pain is now largely located in his epigastric abdomen area I feel it reasonable to trial a GI cocktail of Mylanta and lidocaine, as well as a dose of Pepcid intravenously. Shortly after administration of medications the patient had a near complete resolution of his chest pain, his blood pressure had improved, and he appears much more comfortable without ongoing tachypnea. I will send a prescription for Mylanta and Pepcid to his pharmacy for symptomatic management of any recurrent s ymptoms. I signed out care of this patient to the oncoming provider prior to completion of his third troponin, which if negative is incredibly reassuring against cardiac etiology of chest pain. I am presuming a GI source of his pain given the complete resolution with GI medications, but did recommend that he reach out to his primary care provider to discuss this visit, the noted pulmonary nodule, and any on going testing or workup that needs to be completed. Patient remained hemodynamically appropriate while under my care. Daria Alexander MD [facility] All Active Problems (Updated 01/15/25 @ 23:23 by Daria Alexander MD) Pulmonary nodule/lesion, solitary (Acute) Chest pain (Acute) No-show for appointment (Acute) Internal derangement of right knee (Acute) Contusion of right knee (Acute 09/04/23) H/O urinary frequency (Acute) Abnormal stress test (Chronic) Tobacco use disorder (Chronic) Quit 2019, restarted late in the year Vitamin D deficiency (Chronic) Chronic kidney disease (CKD), stage III (moderate) (Chronic 05/26/16) ? due to DM or to hypertension Diabetes mellitus type 2 in obese (Chronic 02/19/16) presented with polyuria, elevated FS on friend's glucometer, A1c 14 at [facility] ER Essential hypertension (Chronic) goal <140/85 Gastroesophageal reflux disease without esophagitis (Chronic 12/05/11) ER 11/2014 rx PPI Microscopic hematuria (Chronic 02/27/14) CT neg; JUSTINO neg; persists 01/2015 Mixed hyperlipidemia (Chronic 02/16/01) low HDL 27; SL HIGH TG; CV RISK (12/2016): 27%: rec Statin Obesity, unspecified (Chronic 12/05/11) 1993 165#; 180 gives BMI <30 05/06/21 [facility], BMI 35.10 Obstructive sleep apnea (Chronic 03/10/16) [id number], severe in REM sleep Sleep study PSG on 03/10/16: AHI 20.1; SPO2 shailesh 82%; CPAP begun 06/08/16. with improvement in fatigue 06/29/16 restudied higher pressures needed assoc. with treatment of central sleep apnea Complex regional pain syndrome (Chronic 06/27/13) Type 2 diabetes mellitus (Chronic 12/05/11) Chest pain (Acute) Hypertrophy of tonsils (Acute) 02/21/2019 ENT, Dr Lange Dysfunction of left eustachian tube (Acute) 02/21/[address] Lange Edentulous (Acute) Chronic maxillary sinusitis (Acute) History of sinusitis (Acute) Abdominal obesity (Acute) Chest pain (Acute) Bilateral hydrocele (Acute) Abdominal pain (Acute) Lightheadedness (Acute) Hematuria (Acute) Family history of cerebral aneurysm (Chronic) Mother in Mar 2020 Right arm numbness (Acute) Functional bowel disorder (Acute) Diverticulosis (Chronic) Colonoscopy June 2019 Other constipation (Acute ~2020) [facility] Polyp of colon (Acute ~2020) [facility] Right lower quadrant pain (Acute ~2020) [facility] Sinusitis (Acute) High triglycerides (Acute) Dizziness (Acute) Dyspnea (Acute) Gout (Chronic) R 1st PIP joint Umbilical hernia (Acute) History of alcohol abuse (Acute) Burning sensation (Acute) Eructation (Acute) Medical History Urinary incontinence without sensory awareness Sessile colonic polyp (09/26/14) @ transverse colon, sigmoid Paresthesias (10/27/16) nocturnal, bilateral, R>L, Median nerve, probable CTS Surgical History Cubital tunnel syndrome of both upper extremities S/P L cubital tunnel release: 09/03/2021 S/P R cubital tunnel release: 12/04/2021 Carpal tunnel syndrome of right wrist S/P ECTR: 12/04/2021 Carpal tunnel syndrome of left wrist S/P ECTR: 09/03/2021 Cystoscopy w/ joe retrograde pyelogram (03/01/15) Colonoscopy - IV Sedation (09/26/14) [facility] Perri, serrated polyp, fragments of sessile serrated adenoma Extraction of cataract (12/17/16) Left Radha Manzo; R 11/19/16 Cardiac Cath (03/24/17) [id number] stents placed Family History Father , lung cancer at age 67. Essential hypertension Neoplasm Mother Diabetes Essential hypertension Sister No problems noted. Sister No problems noted. Social History Smoking/Tobacco Use Status: Current every day Tobacco Type: cigarettes Tobacco: How many years used: 41 Quit status: considering quitting Smoking risk assessment performed?: Yes Alcohol Intake: former Drug use: Never Substance use type: does not use Household members: significant other Housing: apartment Number of Children: 3 Communication Needs: None Do you need help understanding health information?: Often current occupation: Disabled Current gender identity: male What is your relationship status?: living with partner How often do you talk on the phone with friends or family?: three or more times per week How often do you get together with friends or relatives?: three or more times per week Panel score (0-1 are the most socially isolated patients): 2 What type of physical activity do you participate in: none Seatbelt use: always Drive intox or ride w/intox ambulance driver: No Working smoke detector in home: No Fire extinguisher in home: No Carbon monox detector in home: No Do you feel safe at home: Yes Do you feel safe in your relationship?: Yes
[2025-01-15 20:23] LABS: Abs Immature Grans 0.13 10^3/uL (0.0-0.06); HCT 43.7 % (40.0-50.0); HGB 14.8 g/dL (13.5-17.5); Immature Grans % 1.5 %; MCH 29.6 pg (27.0-33.0); MCHC 33.9 % (32.0-36.0); MCV 87 fL (80-95); MPV 10.8 fL (8.0-11.0); Platelet Count 202 10^3/uL (130-400); RBC 5.00 10^6/uL (4.36-5.78); RDW 12.9 % (11.8-14.1); RDW-SD 41.0 fL; WBC 8.69 10^3/uL (4.4-10.8)
[2025-01-15] MEDS: Normal Saline - Diluent 50 ML VIAL IJ (20:23)
[2025-01-15] MEDS: Omnipaque 350 MG/ML 100 ML BTL IJ (20:23)
[2025-01-15 20:31] LABS: INR 0.9 (0.9-1.1); Prothrombin Time 9.5 sec (9.1-11.1)
[2025-01-15 20:38] LABS: Lipase 50 U/L (<53)
[2025-01-15 20:39] LABS: Magnesium 1.8 mg/dL (1.6-2.6)
[2025-01-15 20:40] LABS: ALT 17 U/L (10-49); AST 17 U/L (<34); Albumin 4.3 g/dL (3.2-5.0); Alkaline Phosphatase 96 U/L (46-116); Anion Gap 9.6 mmol/L (3-11); BUN 22 mg/dL (9-23); Bilirubin, Total 0.20 mg/dL (0.2-1.2); CO2 23.4 mmol/L (20.0-31.0); Calcium 9.0 mg/dL (8.3-10.6); Chloride 110 mmol/L (98-107); Glucose 121 mg/dL (74-106); Potassium 4.0 mmol/L (3.5-5.1); Sodium 143 mmol/L (136-145); Total Protein 6.8 g/dL (5.7-8.2)
[2025-01-15 20:50] LABS: Troponin I < 3 ng/L (<54)
[2025-01-15 21:37] LABS: PTT Activated 25.5 sec (20.6-30.2)
[2025-01-15 21:44] LABS: Troponin I 5 ng/L (<54)
--- NOTE | 2025-01-15 21:51 | DI.VRAD_ITS ---
PROCEDURE INFORMATION: Exam: CTA Chest With Contrast CTA Abdomen and Pelvis With Contrast Exam date and time: 01/15/2025 8:22 PM Age: 59 years old Clinical indication: Abdominal pain; Acute; Cp radiating to abd, onset today TECHNIQUE: Imaging protocol: Computed tomographic angiography of the chest with contrast. Exam focused on the arteries. Computed tomographic angiography of the abdomen and pelvis with contrast. Exam focused on the arteries. 3D rendering (Not supervised by radiologist): MIP and/or 3D reconstructed images were created by the technologist. COMPARISON: CT CHEST PE CTA 03/02/2024 2:09 PM FINDINGS: VASCULATURE: Pulmonary arteries: No pulmonary embolism identified. Aorta: No thoracic or abdominal aortic aneurysm or dissection. Celiac and mesenteric arteries: Celiac, superior mesenteric, and inferior mesenteric arteries widely patent. Renal arteries: Right and left renal arteries widely patent. Right iliac arteries: Right common iliac, internal iliac, and external iliac arteries widely patent. Right femoral/popliteal arteries: Right common femoral and visualized proximal right superficial femoral arteries widely patent. Left iliac arteries: Left common iliac, internal iliac, and external iliac arteries widely patent. Left femoral/popliteal arteries: Left common femoral and visualized proximal left superficial femoral arteries widely patent. Thyroid: Thyroid gland partially excluded from view but grossly unremarkable through its visualized portion. CHEST: Lungs: Minimal emphysematous/bullous change at the medial right apex. 8 mm nodular density in the right lower lobe on image 45 of series 8. No pulmonary consolidation. Pleural spaces: No pleural effusion or pneumothorax. Heart: Mildly enlarged heart. ABDOMEN AND PELVIS: Liver: Normal appearing liver. Normal appearing liver. Gallbladder and biliary ducts: Moderate gallbladder distention. Hazy indistinctness of the gallbladder margins versus artifact from motion. No calcified gallstones or biliary dilatation. Pancreas: Normal appearing pancreas. Spleen: Normal appearing spleen. Adrenal glands: Normal appearing adrenal glands. Kidneys and ureters: 2.6 cm right renal cyst on image 61 of series 8. Additional smaller hypoattenuating renal lesions, not well characterized but statistically most likely additional small cysts. No obstructing ureteral stones. No hydronephrosis or ureterectasis. Stomach and bowel: Stomach partially distended with ingested material and gas. 2.0 cm x 3.0 cm proximal duodenal diverticulum, image 67 of series 8. No small bowel dilatation to suggest obstruction. Diverticulosis through the descending and sigmoid segments of the colon. Mural thickening through a collapsed sigmoid segment but no surrounding inflammatory change. Appendix: Normal appendix. Intraperitoneal space: No gross ascites or free air. Urinary bladder: Urinary bladder partially collapsed but grossly unremarkable, as seen. Reproductive: Normal-appearing prostate gland and seminal vesicles. Lymph nodes: No pathologically enlarged mediastinal or hilar lymph nodes. No pathologically enlarged mesenteric, retroperitoneal, or pelvic sidewall lymph nodes. Bones/joints: Tiny vestigial ribs at L1. No acute fracture seen among the bones of the chest, abdomen, or pelvis. Soft tissues: Mildly asymmetric gynecomastia, more prominent on the right, nonspecific. No gross soft tissue mass or fluid collection seen in the chest wall. Mild diastasis recti. Small fat containing ventral hernia at the umbilicus. IMPRESSION: 1. No thoracic or abdominal aortic aneurysm or dissection. 2. No pulmonary consolidation, pleural effusion, or pneumothorax. 8 mm nodular density in the right lower lobe. 3. Diverticulosis through the descending and sigmoid segments of the colon. Apparent mural thickening through collapsed segment of the mid sigmoid region but no associated surrounding inflammatory change. Incomplete distention or smooth muscle hypertrophy associated with diverticulosis could account for this appearance; however, a short segment of colitis could probably mimic this appearance. Clinical correlation is recommended. Otherwise, no acute bowel pathology demonstrated. 4. Moderate gallbladder distention. Hazy indistinctness of the gallbladder margins versus artifact from motion. Clinical correlation recommended to consider the possibility of cholecystitis as the imaging appearance is equivocal. No calcified gallstones or biliary dilatation. Dictated and Authenticated by: Karlos Moreno MD. Orderin [facility] Huff MD
[2025-01-15] MEDS: Famotidine 20 MG/2 ML VIAL IVP (22:20)
[2025-01-15] MEDS: MYLANTA 30 ML, LIDOCAINE 2% VISCOUS UD 15 ML PO (22:23)
[2025-01-15 23:39] LABS: Troponin I < 3 ng/L (<54)
[2025-01-16 00:01] VITALS: BP 148/74; PULSE 84; RESP 23; TEMP 36.2; O2SAT 96
--- NOTE | 2025-01-16 07:00 | W.EDPROG ---
Date of service: 01/15/25 Time of Service: 23:30 Medical Decision Making This patient was signed out to me. Please see previous notes for H&P and initial eval. In brief, 59yo M presented with chest pain, pain resolved after GI cocktail. ED workup reassuring. Given age, risk factors, and duration of symptoms plan for third troponin. which is currently pending. If not significantly uptrending plan for discharge home to followup with PCP. Dishcarge instructions have been written. 2345 troponin resulted as negative. Patient remains chest pain free. Discharged home; discharge instructions and return precautions were reviewed with patient who verbalized understanding. All questions were answered and he is in full agreemetn with the plan. Discharge Plan Disposition Patient Disposition: Home Condition: Stable Discharge Details Clinical Impression: Gastroesophageal reflux disease without esophagitis, Chest pain, Essential hypertension, Pulmonary nodule/lesion, solitary Primary Care Provider: Angus Barnett ED Provider: Valentine Mckinney Home Meds and New Rx's Prescriptions: New famotidine [Pepcid] 20 mg tablet 20 mg PO QHS Qty: 30 0RF No Action (DME) lancets [FreeStyle Lancets] 28 gauge misc See Rx Instructions .ROUTE .MEDSUPPLY Qty: 25 Rx Instructions: As directed albuterol sulfate [Ventolin HFA] 90 mcg/actuation HFA aerosol inhaler 1 - 2 puff Inhalation Q4H PRN Qty: 1 6RF Patient Comments: pt stat Rx Instructions: PHARMACY: PLEASE DISPENSE ALBUTEROL BRAND COVERED BY INSURANCE gemfibrozil [Lopid] 600 mg tablet 600 mg PO DAILY Qty: 90 3RF atorvastatin 20 mg tablet 20 mg PO DAILY Qty: 90 3RF pantoprazole [Protonix] 40 mg tablet,delayed release (DR/EC) 40 mg PO DAILY Qty: 30 12RF sucralfate [Carafate] 1 gram tablet 1 g PO HS Qty: 30 12RF lisinopril 10 mg tablet 5 mg PO DAILY mirabegron [Myrbetriq] 25 mg tablet extended release 24 hr 25 mg PO DAILY nitroglycerin [Nitrostat] 0.4 mg tablet, sublingual 0.4 mg Sublingual Q5 MIN PRN X3 Qty: 100 1RF Patient Comments: 09/03/21 pt reports he hasnt taken in @ 3 months Rx Instructions: 1 tab sublingual q5m PRN x3 chest pain cholecalciferol (vitamin D3) [Vitamin D3] 50 mcg (2,000 unit) tablet 2,000 unit PO DAILY Qty: 90 3RF aspirin 81 mg tablet,delayed release (DR/EC) 81 mg PO DAILY 90 Days Qty: 90 3RF (DME) FreeStyle Lite Strips Strip See Rx Instructions .ROUTE .MEDSUPPLY Qty: 100 3RF Patient Comments: pt. states he checks his sugars when he thinks his sugars high Rx Instructions: Test daily to keep HbA1c less than 6.5%; Dx: E11.9 acetaminophen 500 mg tablet 500 mg PO Q6H PRN (Reason: pain) Qty: 60 2RF ibuprofen 600 mg tablet 600 mg PO TID PRN (Reason: pain) Qty: 60 0RF metformin 500 mg tablet extended release 24 hr 1,000 mg PO TID Qty: 180 3RF Rx Instructions: for diabetes, two tabs in the morning insulin glargine [Basaglar KwikPen U-100 Insulin] 100 unit/mL (3 mL) insulin pen 15 unit subcut QAM PRN Discharge Instructions Instructions: Acid reflux and GERD in adults, Chest Pain, Adult ED Additional Instructions: You were seen in the emergency department today for evaluation of chest and abdominal pain. In our department you had a full physical examination performed, had laboratory studies that were quite reassuring, including negative cardiac enzymes and a normal EKG. You had no evidence of damage to your liver, gallbladder, or or pancreas on your labs, your kidney function is slightly elevated but within the range of your normal levels. You had a CT scan that did not show any significant abnormalities in your heart or major blood vessels. You do have an 8 mm nodule in your right lung which needs to be followed up on with your primary care provider. You did not have any significant findings in your abdomen to explain your symptoms today. You had an almost complete improvement in your symptoms after a GI cocktail, combination of medicines targeted at the esophagus and lining of the stomach. It is possible that your GERD was one of the reasons for your pain today, I recommend that you continue to take your pantoprazole every day, I have sent a prescription for Pepcid, a medication to reduce acid which you can take at nighttime as needed for ongoing pain. Additionally, I recommend that you purchase a bottle of Mylanta [id number], as this medication can be used as needed for management of pain associated with acid reflux. Please follow-up with your primary care provider within the next 48-72 hours discuss this visit and to look into further evaluation of your heart. Return to the emergency department for new or worsening symptoms including if your pain returns, you feel short of breath, feel like you are going to pass out, or if you have any other concerns. Stand Alone Forms: Portal Information Discharge Data Discharge Date/Time-TO BE ENTERED AT DEPARTURE: 01/16/25 00:04
== END 2025-01-16 00:04 | disposition home or self-care (01) ==
PROVIDERS: Emergency Medicine; Emergency Provider Student in an Organized Health Care Education/Training Program; PCP Student in an Organized Health Care Education/Training Program
DX: K21.9 Gastro-esophageal reflux disease without esophagitis (principal); R07.9 Chest pain, unspecified; I10 Essential (primary) hypertension; R91.1 Solitary pulmonary nodule
CPT/HCPCS: 00123; 36415; 71275; 80053; 83690; 93005; 96374; 99285; 74174; 83605; 83735; 83880; 84484; 85025; 85610; 85730; 93010; 99284; J3490

== ENCOUNTER 2025-02-14 10:20 | Outpatient (REF) | payer MEDICARE, MEDICAID, SELFPAY ==
[2025-02-14 16:16] LABS: Cholesterol 170 mg/dL (<200); HDL Cholesterol 31 mg/dL (>or=40)
== END 2025-02-14 10:21 | disposition home or self-care (01) ==
LOC: NCHCN 10:20
PROVIDERS: PCP Student in an Organized Health Care Education/Training Program; Visit Provider Student in an Organized Health Care Education/Training Program
DX: E11.9 Type 2 diabetes mellitus without complications (principal)
CPT/HCPCS: 80061